=== PATIENT | male | born 1960 | race Caucasian/White ===

== ENCOUNTER 2019-10-28 17:14 | Emergency (ER) | payer OTHER ==
--- OUTSIDE RECORDS SUMMARY | 2019-10-28 17:15 | XMS REPORT ---
:1960 [facility] Address [address] [place] [address] Dr. Falcon [address] [place] [id number] Care Team Providers Name Role Phone Unavailable Unavailable Unavailable Problems This patient has no known problems. Allergies, Adverse Reactions, Alerts This patient has no known allergies or adverse reactions. Medications This patient has no known medications.
--- OUTSIDE RECORDS SUMMARY | 2019-10-28 17:15 | XMS REPORT ---
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
--- OUTSIDE RECORDS SUMMARY | 2019-10-28 17:16 | XMS REPORT ---
:1960 Author Organization eClinicalWorks Care Team Providers Name Role Phone Carroll Regina Provider Role Unavailable Allergies, Adverse Reactions, Alerts Substance Reaction Event Type N.K.D.A. 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 Problem Type 2 diabetes mellitus without E11.9 Active complication, unspecified whether custodial insulin use Medications Medication Code Code Instructions Start End Status Dosage System Date Date Tamsulosin HCl ND 82955720156 0.4 MG Orally Active 1 capsule Once a day Metformin HCl ND 38394823513 500 MG Orally Active 1 tablet Once a day with a meal in am, 1 tabd at lunch, 2 tabs with evening meal Allopurinol ND 06051765381 100 MG Orally Oct 09, Nov 08, Active 1 tablet Once a day 2019 2019 Finasteride ND 25375400279 5 MG Orally Active 1 tablet Once a day Levothyroxine ND 60546637379 75 MCG Orally Active 1 tablet Sodium Once a day in the morning on an empty stomach Lovastatin ND 12015354189 20 MG Orally Active 1 tablet Once a day with the evening meal Losartan ND 74474881180 100 MG Orally Active 1 tablet Potassium Once a day Baby Aspirin NDC 0 81 mg by mouth Active 1 tablet once a day Clopidogrel ND 72194768378 75 MG Orally Active 1 tablet Bisulfate Once a day Results No Known Results Summary Purpose eClinicalWorks Submission
--- OUTSIDE RECORDS SUMMARY | 2019-10-28 17:16 | XMS REPORT ---
:1960 Author Organization eClinicalWorks Care Team Providers Name Role Phone Regina Hodges Provider Role Unavailable Allergies, Adverse Reactions, Alerts Substance Reaction Event Type N.K.D.A. 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 Assessment Essential hypertension I10 Active Assessment Establishing care with new doctor, Z76.89 Active encounter for Assessment Frequency of micturition R35.0 Active Problem Frequency of micturition R35.0 Active Problem Benign prostatic hyperplasia with N40.1 Active lower urinary tract symptoms Problem Essential hypertension I10 Active Assessment Type 2 diabetes mellitus without E11.9 Active complication, 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 Problem 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 Problem Type 2 diabetes mellitus without E11.9 Active complication, 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 Medications Medication Code Code Instructions Start End Status Dosage System Date Date Tamsulosin HCl ND 56562125883 0.4 MG Orally Active 1 capsule Once a day Clopidogrel ND 15463649147 75 MG Orally Active 1 tablet Bisulfate Once a day Levothyroxine ND 99880205715 75 MCG Orally Active 1 tablet Sodium Once a day in the morning on an empty stomach Finasteride ND 50363600795 5 MG Orally Active 1 tablet Once a day Lovastatin ND 21905387673 20 MG Orally Active 1 tablet Once a day with the evening meal Metformin HCl ND 88134840228 500 MG Orally Active 1 tablet Once a day with a meal in am, 1 tabd at lunch, 2 tabs with evening meal Baby Aspirin NDC 0 81 mg by mouth Active 1 tablet once a day Losartan ND 31752574200 100 MG Orally Active 1 tablet Potassium Once a day Allopurinol ND 95751711832 100 MG Orally Oct 09, Nov 08, Active 1 tablet Once a day 2019 2019 Results Name Result Date Reference Range Unit Abnormality Flag HEMOGLOBIN A1C ----A1C 5.8 [id number] Summary Purpose eClinicalWorks Submission
--- OUTSIDE RECORDS SUMMARY | 2019-10-28 17:16 | XMS REPORT ---
[...] mellitus without E11.9 Active complication, unspecified whether assisted insulin use Medications Medication Code System Code Instructions Start End Date Status Dosage Date Accu-Chebeatrice Marin [facility] 91252316720 - In Vitro Jun 29, Active Use, as Plus 2019 directed, twice a day to test the blood sugar Results No Known Results Summary Purpose eClinicalWorks Submission
--- OUTSIDE RECORDS SUMMARY | 2019-10-28 17:16 | XMS REPORT ---
[...] mellitus without E11.9 Active complication, unspecified whether snf insulin use Medications Medication Code Code Instructions Start End Date Status Dosage System Date OneTouch Ultra [facility] 08694794147 - In Vitro Twice April 17, Active USE 1 Test a day for 2019 STRIP Diabetes E11.9 Results No Known Results Summary Purpose eClinicalWorks Submission
[2019-10-28 17:44] LABS: Absolute Lymphocytes (CBC) 1.8 K/uL (0.7-4.9); Basophils % 1.1 % (0-1.3); Hematocrit 40.6 % (39.6-49.0); Lymphocytes % 22.8 % (15.3-44.8); MPV 8.3 fL (7.6-11.3)
[2019-10-28 17:45] LABS: Protime INR 1.08
[2019-10-28 18:06] LABS: ALT/SGPT 18 U/L (12-78); AST/SGOT 15 U/L (15-37); Albumin 3.7 g/dL (3.4-5.0); Alkaline Phosphatase 84 U/L (45-117); BUN Blood Urea Nitrogen 15 mg/dL (7-18); Bicarbonate 25 mmol/L (21-32); Bilirubin Direct 0.1 mg/dL (0-0.2); Bilirubin Total 0.4 mg/dL (0.2-1.0); Glucose Level 112 mg/dL (74-106); Magnesium 2.1 mg/dL (1.8-2.4); NT PRO-BNP 50 pg/mL (<125); Potassium 4.2 mmol/L (3.5-5.1); Sodium Level 138 mmol/L (136-145); Troponin (Emerg Dept Use Only) < 0.02 ng/mL (0.0-0.045)
--- NOTE | 2019-10-28 18:37 | RAD REPORT ---
EXAM DESCRIPTION: CT - Angio Aorta For Dissection - 10/28/2019 6:25 pm CLINICAL HISTORY: Chest pain radiating to the back. lower back pain COMPARISON: <Comparisons> TECHNIQUE: CT angiography of the aorta was performed with MIPs. All CT scans are performed using dose optimization technique as appropriate and may include automated exposure control or mA/KV adjustment according to patient size. FINDINGS: A left aortic arch is present with normal branching pattern of the great vessels.No acute aortic finding is seen such as aneurysm, penetrating ulcer or dissection. The celiac axis, SMA, ZULEIMA and renal arteries are patent. No evidence of pulmonary embolism. The lungs are clear. The liver demonstrates no focal mass or biliary dilatation.The spleen, pancreas, adrenal glands and k idneys are within normal limits for arterial phase imaging.Benign cyst is present left kidney. No bowel obstruction, free fluid or abscess.Sigmoid diverticulosis coli without diverticulitis. Loraine l appendix.No pathologic enlarged lymphadenopathy identified.Moderate prostatomegaly. Small fat conta ining inguinal hernias bilaterally. Vertebroplasty cement is noted in the L1 vertebral body.Postsurgical hardware is present lower lumbar spine stimulator device present. No acute fracture seen. IMPRESSION: No acute aortic finding is demonstrated.
[2019-10-28] MEDS ORDERED: KETOROLAC 30 MG/ML INJ ONE (19:02)
[2019-10-28] MEDS ORDERED: DIAZEPAM 10 MG/2 ML INJ SYRINGE ONE (19:02)
--- NOTE | 2019-10-28 19:47 | ER ---
Nurse's Notes [facility] Name: Moshe Ewing Age: 58 yrs Sex: Male : 1960 Arrival Date: 10/28/2019 Time: 17:17 Bed 7 Private MD: Diagnosis: Muscle spasm of back Presentation: 10/28 17:17 Presenting complaint: EMS states: pt was helping his son push a truck and started tw2 having severe right low back pain, denies any urinary symptoms, denies stomach or groin pain, pt did state he had dull back pain 2 weeks ago, rates his pain 10/10 after 100 mcg Fentanyl IV, and 1 gram Tylenol IV, pt vs stable. Transition of care: patient was not received from another setting of care. Onset of symptoms was October 28, 2019. Risk Assessment: Do you want to hurt yourself or someone else? Patient reports no desire to harm self or others. Initial Sepsis Screen: Does the patient meet any 2 criteria? No. Patient's initial sepsis screen is negative. Does the patient have a suspected source of infection? No. Patient's initial sepsis screen is negative. Care prior to arrival: Medication(s) given: Tylenol, 1000 mg, Fentanyl 100 mcg IV initiated. 20 GA, in the right forearm. 17:17 Method Of Arrival: EMS: [facility] tw2 17:17 Acuity: MYRIAM 3 tw2 Triage Assessment: 17:20 General: Appears in no apparent distress. uncomfortable, Behavior is calm, cooperative, tw2 appropriate for age. Pain: Complains of pain in right low back. Musculoskeletal: Circulation, motion, and sensation intact. Reports pain in right mid back and right low back. Historical: - Allergies: 17:28 No Known Allergies; tw2 - Home Meds: 17:28 levothyroxine 75 mcg tab 1 tab once daily [Active]; metformin 500 mg Oral Tb24 1 tab 1 tw2 tab with breakfast, 1 tab with lunch, 2 tabs with evening meal [Active]; tamsulosin 0.4 mg oral cp24 1 cap once daily [Active]; clopidogrel 75 mg oral tab 1 tab once daily [Active]; finasteride 5 mg oral tab 1 tab once daily [Active]; losartan 100 mg oral tab 1 tab once daily [Active]; lovastatin 40 mg Oral tab 1 tab once daily [Active]; - PMHx: 17:28 DVT; Hypertension; Diabetes - NIDDM; tw2 - PSHx: 17:28 BKA; tw2 - Immunization history:: Adult Immunizations. - Coronavirus screen:: The patient has NOT traveled to [place], [place], or [place] in the past 14 days. - Social history:: Smoking status: . - Ebola Screening: : Patient denies travel to an Ebola-affected area in the 21 days before illness onset. Screenin:28 Abuse screen: Denies threats or abuse. Nutritional screening: No deficits noted. tw2 Tuberculosis screening: No symptoms or risk factors identified. Fall Risk Secondary diagnosis (15 points) impaired mobility, right BKA. Assessment: 17:18 Reassessment: Patient appears in no apparent distress at this time. Reassessment: tw2 provider notified of assessment findings. General: Appears in no apparent distress. uncomfortable, Behavior is cooperative, appropriate for age. Pain: Complains of pain in right mid back and back and right low back. Neuro: Level of Consciousness is awake, alert, obeys commands, Oriented to person, place, time, situation. Cardiovascular: Heart tones S1 S2 Patient's skin is warm and dry. Respiratory: Airway is patent Respiratory effort is even, unlabored, Respiratory pattern is regular, symmetrical, Breath sounds are clear bilaterally. GI: No signs and/or symptoms were reported involving the gastrointestinal system. Abdomen is round non-distended, noted what appeared to be a large raised area when pt strained abdominal muscles when pt was moved from EMS stretcher to examination bed. Bowel sounds present X 4 quads. : No signs and/or symptoms were reported regarding the genitourinary system. EENT: No signs and/or symptoms were reported regarding the EENT system. Derm: No signs and/or symptoms reported regarding the dermatologic system. Musculoskeletal: Amputation of Other: RIGHT BKA Reports "blood clots in my Left leg, i will be having a doppler study done this week at Dr. Ziegler' office, i have a weak pulse in my left foot". 18:55 Reassessment: Patient appears in no apparent distress at this time. Patient and/or tw2 family updated on plan of care and expected duration. Pain level reassessed. Patient is alert, oriented x 3, equal unlabored respirations, skin warm/dry/pink. 19:05 Reassessment: provider at bedside at this time, wants to wait on administration of the tw2 iv medication ordered and for staff to ambulate pt at this time, Maria Fernanda,RN and PriteshRN notified of need for ambulation and iv medications if intolerable. 19:14 Reassessment: Patient appears in no apparent distress at this time. Patient is alert, lp1 oriented x 3, equal unlabored respirations, skin warm/dry/pink. Patient ambulated down hallway, states feeling better, steady gait noted; Provider notified. 20:08 Reassessment: Patient appears in no apparent distress at this time. Patient and/or jb4 family updated on plan of care and expected duration. Pain level reassessed. Patient is alert, oriented x 3, equal unlabored respirations, skin warm/dry/pink. Pt verbalized having no pain. Verbalized understanding of d/c and follow up instructions. ambulated out of ED with a steady gait. Vital Signs: 17:20 BP 150 / 94; Pulse 78; Resp 15; Temp 98.3(O); Pulse Ox 97% on R/A; Weight 81.65 kg (R); tw2 Pain 10/10; 18:55 BP 144 / 91; Pulse 77; Resp 16; Pulse Ox 98% on R/A; tw2 19:30 BP 146 / 80; Pulse 78; Resp 18; Pulse Ox 98% on R/A; lp1 20:08 BP 167 / 93; Pulse 64; Resp 18; Pulse Ox 98% on R/A; jb4 ED Course: 17:17 Patient arrived in ED. tw2 17:18 Bed in low position. Call light in reach. Side rails up X2. 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 Pulse tw2 ox on. NIBP on. Pillow given. 17:20 Triage completed. tw2 17:20 Arm band placed on. tw2 17:22 Suleiman Petty PA is PHCP. [facility] 17:22 Chris Plummer MD is Attending Physician. [facility] 17:29 Pennie Jang RN is Primary Nurse. tw2 17:48 Radiology exam delayed due to lab results not completed at this time. (BUN/Creatinine). mw3 18:25 CT completed. Patient tolerated procedure well. Patient moved back from CT. mw3 18:25 CT Aorta for Dissection In Process Unspecified. EDMS 19:05 Report given to FANNY Irving. tw2 19:15 No provider procedures requiring assistance completed. lp1 20:15 IV discontinued, No redness/swelling at site. Pressure dressing applied. lp1 Administered Medications: 20:28 Not Given (Patient feeling better): Valium 5 mg IVP once lp1 20:28 Not Given (Patietn feeling better, denies need): Ketorolac 30 mg IVP once lp1 Outcome: 19:46 Discharge ordered by . sourav 20:15 Discharged to home ambulatory, with friend. lp1 20:15 Condition: good 20:15 Discharge instructions given to patient, Instructed on discharge instructions, follow up and referral plans. medication usage, Demonstrated understanding of instructions, follow-up care, medications, Prescriptions given X 1. 20:19 Patient left the ED. jb4 Signatures: Dispatcher [employer] EDMS Suleiman Petty PA PA jmm Pena, Laura, RN RN lp1 Pennie Jang RN RN tw2 Myles Nettles RN RN jb4 Kathi Jo 3
--- NOTE | 2019-10-28 19:47 | EDPHYS ---
Physician Documentation [facility] Name: Moshe Ewing Age: 58 yrs Sex: Male : 1960 Arrival Date: 10/28/2019 Time: 17:17 Bed 7 Private MD: ED Physician Chris Plummer HPI: 10/28 17:26 This 58 yrs old Male presents to ER via EMS with complaints of Back Pain. jmm 17:26 The patient presents with pain that is acute. Onset: The symptoms/episode jmm began/occurred acutely, just prior to arrival. The pain does not radiate. Associated signs and symptoms: Pertinent negatives: chest pain. This is a 58 year old male with a history of htn, dm that presents to the ED with complaints of right sided back pain after pushing his truck. Denies radiation of pain. Denies abdominal pain or weakness. Historical: - Allergies: 17:28 No Known Allergies; tw2 - Home Meds: 17:28 levothyroxine 75 mcg tab 1 tab once daily [Active]; metformin 500 mg Oral Tb24 1 tab 1 tw2 tab with breakfast, 1 tab with lunch, 2 tabs with evening meal [Active]; tamsulosin 0.4 mg oral cp24 1 cap once daily [Active]; clopidogrel 75 mg oral tab 1 tab once daily [Active]; finasteride 5 mg oral tab 1 tab once daily [Active]; losartan 100 mg oral tab 1 tab once daily [Active]; lovastatin 40 mg Oral tab 1 tab once daily [Active]; - PMHx: 17:28 DVT; Hypertension; Diabetes - NIDDM; tw2 - PSHx: 17:28 BKA; tw2 - Immunization history:: Adult Immunizations. - Coronavirus screen:: The patient has NOT traveled to [place], [place], or [place] in the past 14 days. - Social history:: Smoking status: . - Ebola Screening: : Patient denies travel to an Ebola-affected area in the 21 days before illness onset. ROS: 17:26 Constitutional: Negative for fever, chills, and weight loss, Cardiovascular: Negative jm for chest pain, palpitations, and edema, Respiratory: Negative for shortness of breath, cough, wheezing, and pleuritic chest pain. 17:26 Back: Positive for pain with movement. 17:26 All other systems are negative. Exam: 17:26 Head/Face: atraumatic. Eyes: EOMI, no conjunctival erythema appreciated ENT: Moist [facility] Mucus Membranes Neck: Trachea midline, Supple Chest/axilla: Normal chest wall appearance and motion. Cardiovascular: Regular rate and rhythm. No edema appreciated Respiratory: Normal respirations, no respiratory distress appreciated Abdomen/GI: Non distended, soft 17:26 Skin: General appearance color normal MS/ Extremity: Moves all extremities, no obvious deformities appreciated, no edema noted to the lower extremities Neuro: Awake and alert, normal gait Psych: Behavior is normal, Mood is normal, Patient is cooperative and pleasant 17:26 Constitutional: The patient appears alert, awake, in obvious pain, uncomfortable. 17:26 Back: diffuse lumbar tenderness, painful rom. Vital Signs: 17:20 BP 150 / 94; Pulse 78; Resp 15; Temp 98.3(O); Pulse Ox 97% on R/A; Weight 81.65 kg (R); tw2 Pain 10/10; 18:55 BP 144 / 91; Pulse 77; Resp 16; Pulse Ox 98% on R/A; tw2 19:30 BP 146 / 80; Pulse 78; Resp 18; Pulse Ox 98% on R/A; lp1 20:08 BP 167 / 93; Pulse 64; Resp 18; Pulse Ox 98% on R/A; jb4 MDM: 17:26 Patient medically screened. lamont 19:44 Data reviewed: vital signs, nurses notes. Counseling: I had a detailed discussion with [facility] the patient and/or guardian regarding: the historical points, exam findings, and any diagnostic results supporting the discharge/admit diagnosis, lab results, radiology results, the need for outpatient follow up, to return to the emergency department if symptoms worsen or persist or if there are any questions or concerns that arise at home. ED course: Pain is relieved in the ED. CT negative. Patient is able to ambulate. Symptoms most likely due to back spasm. . 10/28 17:28 Order name: Basic Metabolic Panel [facility] 10/28 17:28 Order name: CBC with Diff [facility] 10/28 17:28 Order name: LFT's [facility] 10/28 17:28 Order name: Magnesium; Complete Time: 18:11 [facility] 10/28 17:28 Order name: NT PRO-BNP; Complete Time: 18:11 [facility] 10/28 17:28 Order name: PT-INR; Complete Time: 17:58 [facility] 10/28 17:28 Order name: Troponin (emerg Dept Use Only); Complete Time: 18:11 [facility] 10/28 17:28 Order name: EKG; Complete Time: 17:29 [facility] 10/28 17:29 Order name: Basic Metabolic Panel; Complete Time: 18:11 [facility] 10/28 17:29 Order name: CBC with Automated Diff; Complete Time: 17:58 [facility] 10/28 17:29 Order name: Liver (Hepatic) Function; Complete Time: 18:11 [facility] 10/28 17:29 Order name: CT Aorta for Dissection; Complete Time: 18:53 [facility] 10/28 17:28 Order name: Cardiac monitoring; Complete Time: 17:33 [facility] 10/28 17:28 Order name: EKG - Nurse/Tech; Complete Time: 17:53 [facility] 10/28 17:28 Order name: IV Saline Lock; Complete Time: 17:34 [facility] 10/28 17:28 Order name: Labs collected and sent; Complete Time: 17:34 [facility] 10/28 17:28 Order name: O2 Per Protocol; Complete Time: 17:33 [facility] 10/28 17:28 Order name: O2 Sat Monitoring; Complete Time: 17:33 jm Administered Medications: 20:28 Not Given (Patient feeling better): Valium 5 mg IVP once lp1 20:28 Not Given (Patietn feeling better, denies need): Ketorolac 30 mg IVP once lp1 Disposition: 10/28/19 19:46 Discharged to Home. Impression: Muscle spasm of back. - Condition is Stable. - Discharge Instructions: Muscle Cramps and Spasms. - Prescriptions for Zanaflex 4 mg Oral Tablet - take 1 tablet by ORAL route every 8 hours As needed; 20 tablet. - Medication Reconciliation Form, Thank You Letter, Antibiotic Education, Prescription Opioid Use form. - Follow up: Private Physician; When: 2 - 3 days; Reason: Recheck today's complaints, Continuance of care, Re-evaluation by your physician. Addendum: 10/30/2019 07:30 Co-signature as Attending Physician, Chris Plummer MD I agree with the assessment and c javed plan of care. Signatures: Dispatcher [employer] Chris Zeepda MD MD cha Mickail, Joel, PA PA jmm Wise, Tara, RN RN tw2 Myles Nettles, RN RN jb4 Maria Fernanda Watson RN lp1 Corrections: (The following items were deleted from the chart) 10/28 20:19 19:46 10/28/2019 19:46 Discharged to Home. Impression: Muscle spasm of back. Condition jb4 is Stable. Forms are Medication Reconciliation Form, Thank You Letter, Antibiotic Education, Prescription Opioid Use. Follow up: Private Physician; When: 2 - 3 days; Reason: Recheck today's complaints, Continuance of care, Re-evaluation by your physician. sourav
[2019-10-28 20:30] VITALS: TEMP 98.3
[2019-10-28 20:31] VITALS: BP 144/91; O2SAT 98
--- NOTE | 2019-10-30 05:29 | EKG ---
Test Date: 2019-10-28 Test Time: 17:50:03 [employer] Repairer: ANASTASIA MEASUREMENT RESULTS: Intervals: Rate: 66 DC: 150 QRSD: 94 QT: 384 QTc: 402 Grahn: P: 57 DC: 150 QRS: 93 T: 56 INTERPRETIVE STATEMENTS: Normal sinus rhythm Rightward axis Borderline ECG Compared to ECG 03/18/2011 11:24:29 Right-axis deviation now present Electronically Signed On 10-30-19 05:28:45 ENVIRONMENTAL HEALTH SAFETY MANAGER by Nicola Ziegler
== END 2019-10-28 20:19 | disposition home or self-care (01) ==
LOC: ER 17:14
DX: M62.830 Muscle spasm of back (principal); I10 Essential (primary) hypertension; E11.9 Type 2 diabetes mellitus without complications
CPT/HCPCS: 93005; 85025; 80048; 36415; 83735; 85610; 80076; 84484; 83880; 71275; 74175; 99285; Q9967; J3360

== ENCOUNTER 2020-03-01 20:08 | Emergency (ER) | payer OTHER ==
--- OUTSIDE RECORDS SUMMARY | 2020-03-01 20:11 | XMS REPORT ---
:1960 Author Organization eClinicalWorks Care Team Providers Name Role Phone Carroll Regina Provider Role Unavailable Allergies, Adverse Reactions, Alerts Substance Reaction Event Type N.K.D.A. 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 Assessment Essential hypertension I10 Activ e Assessment Benign prostatic hyperplasia with N40.1 Active lower urinary tract symptoms Problem Frequency of micturition R35.0 Act phi Problem Benign prostatic hyperplasia with N40.1 Active lower urinary tract symptoms Problem Acquired hypothyroidism E03.9 Acti ve Problem Essential hypertension I10 Activ e Problem 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 Problem Type 2 diabetes mellitus without E11.9 Active complication, 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 Medications Medication Code Code Instructions Start End Status Dosage System Date Date Levothyroxine ND 85600713447 75 MCG Orally Active 1 tablet Sodium Once a day in the morning on an empty stomach Accu-Chek Tania ND 35948858697 - In Vitro Jun 29, Active U se, as Plus 2019 directed, twice a day to test the blood sugar Baby Aspirin NDC 0 81 mg by mouth Active 1 ta blet once a day Tamsulosin HCl ND 70220356693 0.4 MG Orally Active 1 capsule Once a day OneTouch Ultra ND 98769304195 - In Vitro April 17, Active U SE 1 Test Twice a day for 2019 STRIP Diabetes E11.9 Clopidogrel NDC 88646315537 75 MG Orally Active 1 t ablet Bisulfate Once a day Finasteride NDC 53430897109 5 MG Orally Active 1 ta blet Once a day Lovastatin NDC 45514309641 20 MG Orally Active 1 ta blet Once a day with the evening meal Losartan NDC 16832352925 100 MG Orally Active 1 tab let Potassium Once a day Metformin HCl ND 12409646905 500 MG Orally Active 1 tablet Once a day with a meal in am, 1 tabd at lunch, 2 tabs with evening meal Results Name Result Date Reference Range Unit Abnormali ty Flag HEMOGLOBIN A1C ----A1C 6.2 [id number] Summary Purpose eClinicalWorks Submission
--- OUTSIDE RECORDS SUMMARY | 2020-03-01 20:11 | XMS REPORT | Summary of Care ---
:1960 Author Organization [facility] Address [address] [place] [address] Care Team Providers Name Role Phone Odalys Primary Care Provider Minesh Wilder MD Unavailable Janell Bahena PAC Unavailable Reason for Visit Reason Comments Notification The patient is requesting a new prescription for prosthetic leg. The one he has now is too big. He's having to put 5 socks on his stump to make it fit. Encounter Details Date Type Department Care Team Description 01/01/2020 Telephone [facility] Orthopaedic Edmundo Wilder otification (The Surgery- Erick Edge MD patient is requesting a [address] new prescription for [address] prosthetic [place]. [place] [address] [address] [place], [place] he has now is too big. [phone] He's having to put socks on his stump to [phone] make it fit. ) (Fax) Allergies No Known Allergiesdocumented as of this encounter (statuses as of 01/02/2020) Medications Medication Sig Dispensed Refills Start Date End Date Status pravastatin (PRAVACHOL) Take 40 mg by 0 Active 40 mg tablet mouth at bedtime. metFORMIN (GLUCOPHAGE) Take 500 mg by 0 Active 500 mg tablet mouth 2 (two) times daily with meals. Levothyroxine (TIROSINT) Take 75 mcg by 0 Active 75 mcg capsule mouth daily. losartan (COZAAR) 100 mg Take 100 mg by 0 Active tablet mouth daily. aspirin 81 mg EC tablet Take 81 mg by 0 Active mouth daily. gabapentin (NEURONTIN) Take 300 mg by 0 Active 300 mg capsule mouth 3 (three) times daily. CLOPIDOGREL BISULFATE Take 75 mg by 0 Active (PLAVIX ORAL) mouth daily. diclofenac (VOLTAREN) 75 Take 1 Tab by 60 Tab 1 11/15/2015 Active mg EC tablet mouth 2 (two) times daily with meals. methocarbamol (ROBAXIN) Take 750 mg by 0 Active 750 mg tablet mouth 4 (four) times daily as needed. cyclobenzaprine Take 1 tablet 40 tablet 0 02/04/2016 Active (FLEXERIL) 10 mg tablet by mouth 3 (three) times daily. Additional information Patient taking differently: 10 mg Oral TIDPRN, Reported on 04/02/2016 10:11 AM ONETOUCH ULTRA TEST strip 0 01/27/2016 Active methylPREDNISolone (MEDROL, Take 21 tablets by 1 Each 0 06/2017 Active MICHELE,) 4 mg tablets mouth SEE-INSTRUCTIONS. follow package directions methylPREDNISolone (MEDROL, Take 21 tablets by 1 Each 0 Active MICHELE,) 4 mg tablets mouth SEE-INSTRUCTIONS. follow package directions LOVASTATIN ORAL Take by mouth. 0 Active pentazocine-naloxone 50-0.5 Take 1 tablet by 40 tablet 1 11/17 Active mg tablet mouth every 6 (six) hours as needed for Pain. lovastatin 40 mg tablet Take 40 mg by mouth 0 Active at bedtime. gabapentin (GRALISE) 300 mg Take by mouth. 0 Active tablet traMADOL (ULTRAM) 50 mg Take 1 tablet by 20 tablet 0 7 Active tablet mouth every 6 (six) hours as needed for Pain (scale 7-10). fluconazole (DIFLUCAN) 100 Take 1 tablet by 1 tablet 1 2017 Active mg tablet mouth daily. terbinafine HCl (LAMISIL Apply to area(s) 2 30 g 2 12/14 Active AT) 1 % cream (two) times daily. acetaminophen-codeine TAKE 2 TABLETS BY 0 04/02/2019 Active 300-30 mg tablet MOUTH EVERY 6 HOURS NEEDED FOR PAIN allopurinoL 100 mg tablet 0 10/09/2019 Active finasteride 5 mg tablet Take 5 mg by mouth. 0 2018 Active tamsulosin 0.4 mg 24 hr Take 0.4 mg by 0 08/14/2019 Active capsule mouth. 0 blood sugar diagnostic USE 1 STRIP TO 0 04/17/2019 Active (ClearCycleUCH ULTRA BLUE TEST CHECK GLUCOSE TWICE STRIP) strip DAILY clopidogreL 75 mg tablet Take 75 mg by 0 03/18/2019 Active mouth. cyclobenzaprine 10 mg Take 10 mg by 0 02/04/2016 Active tablet mouth. gabapentin 300 mg capsule Take 300 mg by 0 Active mouth. levothyroxine 75 mcg tablet Comments: | Filled 0 Active Date: Sep 14 2018 10:10AM | Patient Notes: TAKE ONE TABLET BY MOUTH ONCE DAILY losartan 100 mg tablet 1 (one) time each 0 Active day methocarbamol 750 mg tablet Take 750 mg by 0 Active mouth. pravastatin 40 mg tablet Take 40 mg by 0 Active mouth. traMADol 50 mg tablet Take 50 mg by 0 06/16/2017 Active mouth. documented as of this encounter (statuses as of 01/02/2020) Active Problems Problem Noted Date Obesity (BMI 30-39.9) 11/30/2016 Left knee pain 10/06/2016 Shoulder pain, bilateral 02/04/2016 Foot pain, left 12/04/2015 documented as of this encounter (statuses as of 01/02/2020) Social History Tobacco Use Types Packs/Day Years Used Date Never Smoker Smokeless Tobacco: Never Used Alcohol Use Drinks/Week oz/Week Comments No 0 Standard drinks or equivalent 0.0 Sex Assigned at Date Recorded Not on file Job Start Date Occupation Industry Not on file Not on file Not on file Travel History Travel Start Travel End No recent travel history available. documented as of this encounter Last Filed Vital Signs Not on filedocumented in this encounter Plan of Treatment Health Maintenance Due Date Last Done Comments HEPATITIS C (HCV) SCREEN 1960 DTaP,Tdap,and Td Vaccines (1 - 12/09/1970 Tdap) COLONOSCOPY 12/09/2009 Zoster Recombinant Vaccine 12/09/2009 (SHINGRIX) (1 of 2) INFLUENZA VACCINE (#1) 2019 12/09/2015 PNEUMOCOCCAL 0-64 YEARS COMBINED Aged Out No longer eligible based on SERIES patient's age to complete this topic documented as of this encounter Implants Implanted Type Area Nitrate Operator Device Shelf Model / Identifier Expiration Serial / Date Lot Fibertak Suture [place], Double Loaded Supply Left: [employer] 08/26/2021 AR-3602-2 / Implanted: Qty: 1 on 11/30/2016 by Edmundo Ulloa MD at [facility] Item Shoulder A R-3602-2 / [id number] documented as of this encounter Results Not on filedocumented in this encounter Insurance Payer Benefit Plan Subscriber ID Effective Phone Address Typ e / Group Dates HUMANA - HUMANA GOLD [id number] 2019-Pres Medi care Adv MANAGED PLS HMO ent [facility] MEDICARE [facility] MEDICAID OF xxxxxxxxx 2019-Pres [phone] Medi caid [place] ent [id number] [place] [address] documented as of this encounter"
--- OUTSIDE RECORDS SUMMARY | 2020-03-01 20:11 | XMS REPORT ---
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
--- OUTSIDE RECORDS SUMMARY | 2020-03-01 20:11 | XMS REPORT | Continuity of Care Document ---
:1960 Author Organization [facility] Address [address] [place] [address] Care Team Providers Name Role Phone Doctor Unassigned, Name Attending Clinician Unavailable Meño CROWE, Minesh Attending Clinician Problems Condition Condition Condition Status Onset Resolution Last Treating Co mments Source Name Details Category Date Date Treatment Clinician Date Raised Raised Problem Active [facility] prostate Prostate da specific Specific Medica l antigen Antigen Group Frequency Frequency Problem Active [facility] micturitio micturitio Me moria n n l Outpati ent Clinics Benign Benign Problem Active [facility] prostatic prostatic [facility] - hyperplasi hyperplasi Me moria a with a with l lower lower [facility] urinary urinary ent tract tract Clinics symptoms symptoms Essential Essential Problem Active [facility] hypertensi hypertensi [facility] - on on [facility] Outpati ent Clinics Other Other Problem Active [facility] secondary secondary [facility] - acute gout acute gout Me moria of left of left l ankle ankle Outpati ent Clinics Type 2 Type [address] [facility] diabetes diabetes [facility] - mellitus mellitus Mem[facility] a without without l complicati complicati Ou tpati on, on, ent unspecifie unspecifie Cl inics d whether d whether manager terminal manager terminal insulin insulin use use Acquired Acquired Problem Active [facility] hypothyroi hypothyroi [facility] - dism dism [facility] Outpati ent Clinics Allergies, Adverse Reactions, Alerts This patient has no known allergies or adverse reactions. Social History Smoking Status Start Date Stop Date Source Never Smoker [facility] Medications Ordered Filled Start Stop Current Ordering Indication Dosage Frequency Signature Comments Components Source Medication Medication Date Date Medication? Clinician (SIG) Name Name acetaminoph acetaminoph No acetaminop [place] en 300 en 300 hen 300 da mg-codeine mg-codeine mg-codeine Medical 30 mg 30 mg 30 mg Group tablet tablet tablet clopidogrel clopidogrel No clopidogre [facility] 75 mg 75 mg l 75 mg da tablet tablet tablet Medical Group finasteride finasteride No finasterid [facility] 5 mg tablet 5 mg tablet e 5 mg da Take 1 Take 1 tablet Medical tablet tablet Take 1 Group every day every day tablet by oral by oral every day route. route. by oral route. levothyroxi levothyroxi No levothyrox [place] ne 75 mcg ne 75 mcg ine 75 mcg da tablet tablet tablet Medical Group losartan losartan No losartan [facility] 100 mg 100 mg 100 mg da tablet tablet tablet Medical Group lovastatin lovastatin No lovastatin [facility] 20 mg 20 mg 20 mg da tablet tablet tablet Medical Group metformin metformin No metformin [facility] 500 mg 500 mg 500 mg da tablet tablet tablet Medical Group OneTouch OneTouch No OneTouch [facility] Ultra Blue Ultra Blue Ultra Blue da Test Strip Test Strip Test Strip [facility] tamsulosin tamsulosin No tamsulosin [facility] 0.4 mg 0.4 mg 0.4 mg da capsule capsule capsule Medica l Take 1 Take 1 Take 1 Group capsule capsule capsule every day every day every day by oral by oral by oral route. route. route. Metformin Metformin Yes Regina [address] [facility] HCl HCl [place] with a [facility] - meal in Memoria am, 1 tabd l at lunch, Outpati 2 tabs ent with Clinics evening meal Procedures Procedure Date / Time Performed Performing Clinician [facility] e CT, urogram 2018-07-07 00:00:00 [facility] Plan of Care Planned Activity Planned Date Details Comments Source Diagnostic Test 2018-07-07 cytology, urine [facility] Pending 00:00:00 [code = cytology, Group urine] Encounters Start End Encounter Admission Attending Care Care Encounter Source Date/Time Date/Time Type Type Clinicians Facility Department ID 2020-02-21 2020-02-21 Orders Doctor GUZMAN [id number] 00:00:00 00:00:00 Only Unassigned, ANASTASIA [id number] [place] [facility] [id number] 2020-01-09 2020-01-09 [facility] [id number] 14:23:00 14:23:00 [facility] Medicine Outpati ent Clinics 2020-01-08 2020-01-08 [facility] [id number] 08:00:00 08:00:00 [facility] Medicine Outpati ent Clinics 2020-01-01 2020-01-01 Telephone [facility] [id number] 00:00:00 00:00:00 [facility] [id number] Surgical [id number] Specialti [id number] es [address] [place] 2019-11-22 2019-11-22 [facility] [id number] 19:45:00 19:45:00 [facility] Medicine Outpati ent Clinics 2019-11-08 2019-11-08 [facility] [id number] 09:12:00 09:12:00 [facility] Medicine Outpati ent Clinics 2019-11-07 2019-11-07 [facility] [id number] 08:17:00 08:17:00 [facility] Medicine Outpati ent Clinics 2019-10-19 2019-10-19 [facility] [id number] 15:57:00 15:57:00 [facility] Medicine Outpati ent Clinics 2019-10-18 2019-10-18 Office [facility] [id number] 14:50:24 15:33:[address] [facility] [id number] Surgical [id number] Specialti [id number] es [address] [place] 2019-10-18 2019-10-18 [facility] [id number] 09:24:00 09:24:00 [facility] Medicine [facility] 2019-10-18 2019-10-18 Orders Doctor GUZMAN [id number] 00:00:00 00:00:00 Only Unassigned, ANASTASIA [id number] [place] [facility] [id number] 2019-10-17 2019-10-17 [facility] [id number] 09:00:00 09:00:00 [facility] 2019-10-09 2019-10-09 [facility] [id number] 10:27:00 10:27:00 [facility] 2019-10-09 2019-10-09 [facility] [id number] 09:00:00 09:00:00 [facility] ent [facility] 2018-08-08 2018-08-08 Saravanan [facility] [place] - [id number] M atagor 00:00:00 00:00:00 Young, DO: [facility] garcia [address] [address] , Ph. [phone] 2018-08-04 2018-08-04 Jose Garcia [facility] [place] - [id number] M atagor 00:00:00 00:00:00 MD Bobbi: [facility] batres [address] [place] [address], [place] [address] , Ph. 2018-07-07 2018-07-07 Jose Garcia [facility] [place] - [id number] M atagor 00:00:00 00:00:00 MD Bobbi: [facility] [address] [place] [address] 1, [place] [address] , Ph. Results This patient has no known results.
--- OUTSIDE RECORDS SUMMARY | 2020-03-01 20:12 | XMS REPORT | Encounter Summary ---
:1960 Author Care Team Providers Name Role Phone Claudine CIFUENTES Primary Care Provider [phone] Reason for Visit Follow Up Visit Instructions 1. Raised prostate specific anti gen prostate biopsy: about thi s test CT, urogram cytology, urine Discussion Note: None recorded. Plan of Care Reminders Provider Appointments None recorded. Lab Cytology, [facility] 07/07/2018 [facility] Center ( Lab) Referral None recorded. Procedures None recorded. Surgeries None recorded. Imaging CT, Urogram [facility] 07/07/2018 [facility] (Regist ration Office) Medications Name Start Date acetaminophen 300 mg-codeine 30 mg tablet clopidogrel 75 mg tablet finasteride 5 mg tablet Take 1 tablet every day by oral route. levothyroxine 75 mcg tablet losartan 100 mg tablet lovastatin 20 mg tablet metformin 500 mg tablet OneTouch Ultra Blue Test Strip tamsulosin 0.4 mg capsule Take 1 capsule every day by oral route. Medications Administered None recorded. Vitals None recorded. Results Lab Results None recorded. Allergies Code Code System Name Reaction Severity Status Onset NKDA Problems Name Status Onset Date Source Raised Prostate Specific Antigen Active Encounter Procedures Date Name Performed by 07/07/2018 CT, Urogram [facility] (Registration Office) [address] [place] [address] (Work Place) Vaccine List None recorded. Social History Tobacco Smoking Status Never Smoker Past Encounters 08/08/2018 Bilateral Inguinal Hernia Saravanan Carlos, DO: [address] [facility] [address], [place] [address], Ph. [phone] 08/04/2018 Raised Prostate Specific Antigen Jose Martines MD: [address] [facility] [address], [place] [address], Ph. 07/07/2018 Raised Prostate Specific Antigen Jose Martines MD: [address] [facility] [address], [place] [address], Ph. History of Present Illness None recorded. Review of Systems None recorded. Physical Exam None recorded.
--- OUTSIDE RECORDS SUMMARY | 2020-03-01 20:13 | XMS REPORT | Summary of Care ---
:[address] [facility] - Health Address [address] [place] [address] Care Team Providers Name Role Phone Odalys Primary Care Provider Minesh Wilder MD Unavailable Janell Bahena Unavailable Encounter Details Date Type Department Care Team Description 02/21/[address] [facility] Doctor Unassigned, No [address] [facility] [place] [address] [address] [place] [address] Allergies No Known Allergiesdocumented as of this encounter (statuses as of 02/22/2020) Medications Medication Sig Dispensed Refills Start Date [...] USE 1 STRIP TO 0 04/17/2019 Active (Bio2 TechnologiesTOUCH ULTRA BLUE TEST CHECK GLUCOSE TWICE STRIP) [...] as of this encounter (statuses as of 02/22/2020) Active Problems Problem Noted Date Obesity (BMI 30-39.9) 11/30/2016 Left knee pain 10/06/2016 Shoulder pain, bilateral 02/04/2016 Foot pain, left 12/04/2015 documented as of this encounter (statuses as of 02/22/2020) Social History Tobacco Use Types Packs/Day Years [...] 12/09/2009 (SHINGRIX) (1 of 2) INFLUENZA VACCINE (Season Ended) 2020 12/09/2015 PNEUMOCOCCAL 0-64 YEARS COMBINED Aged Out No longer eligible based on SERIES patient's age to complete this topic documented as of this encounter Implants Implanted Type Area Retort Or Condenser Press Operator Device Shelf Model / Identifier Expiration Serial / Date Lot Fibertak Suture [place], Double Loaded Supply Left: [employer] 08/26/2021 AR-3602-2 / Implanted: Qty: 1 on 11/30/2016 by Edmundo Ulloa MD at [facility] Item Shoulder A R-3602-2 / [id number] documented as of this encounter Procedures Procedure Name Priority Date/Time Associated Diagnosis Comme nts DME/SUPPLY JUSTIFICATION Routine 02/21/2020 12:01 AM CDT documented in this encounter Results Not on filedocumented in this encounter Insurance Payer Benefit Plan Subscriber ID Effective Phone Address Typ e / Group Dates HUMANA - HUMANA BETTY [id number] 2019-Pres Medi care Adv MANAGED PLS HMO ent HMO MEDICARE [facility] MEDICAID OF xxxxxxxxx 2019-Pres [phone] Medi caid [place] ent [id number] [place] [address] documented as of this encounter"
[2020-03-01] MEDS ORDERED: MEPERIDINE HCL 50 MG/ML ONE (21:19)
[2020-03-01] MEDS ORDERED: NA CHLORIDE 0.9% 1,000 ML ONE (21:19)
[2020-03-01 21:35] LABS: Absolute Lymphocytes (CBC) 1.8 K/uL (0.7-4.9); Basophils % 0.5 % (0-1.3); Hematocrit 40.6 % (39.6-49.0); Lymphocytes % 20.1 % (15.3-44.8); MPV 8.2 fL (7.6-11.3); RBC Red Blood Cell Count 4.65 M/uL (4.33-5.43)
[2020-03-01 21:43] LABS: Potassium 4.2 mmol/L (3.5-5.1)
--- NOTE | 2020-03-02 00:01 | ER ---
Nurse's Notes [facility] Name: Moshe Ewing Age: 59 yrs Sex: Male : 1960 Arrival Date: 03/01/2020 Time: 20:11 Bed 4 Private MD: Diagnosis: Left hip pain. Degenerative arthritis Presentation: 03/01 20:09 Chief complaint: EMS states: he has left hip pain for a week now, today getting worse mg2 when he picked up the trash. Given Fentanyl 50 mcg IV, Tylenol 1 gm IV in route. Coronavirus screen: Proceed with normal triage. Patient denies a cough. Patient denies shortness of breath or difficulty breathing. Patient denies measured and/or subjective temperature greater than 100.4F prior to today's visit. Patient denies travel on a cruise ship or to a country the [facility] currently lists as an affected area. Patient denies contact with known and/or suspected case of COVID-19. Ebola Screen: No symptoms or risks identified at this time. Initial Sepsis Screen: Does the patient meet any 2 criteria? No. Patient's initial sepsis screen is negative. Does the patient have a suspected source of infection? No. Patient's initial sepsis screen is negative. Risk Assessment: Do you want to hurt yourself or someone else? Patient reports no desire to harm self or others. Onset of symptoms was February 2020. 20:09 Method Of Arrival: EMS: [facility] mg2 20:09 Acuity: MYRIAM 3 mg2 Historical: - Allergies: 20:14 No Known Allergies; mg2 - Home Meds: 22:00 clopidogrel 75 mg Oral tab 1 tab once daily [Active]; finasteride 5 mg Oral tab 1 tab rr5 once daily [Active]; levothyroxine 75 mcg tab 1 tab once daily [Active]; losartan 100 mg Oral tab 1 tab once daily [Active]; lovastatin 40 mg Oral tab 1 tab once daily [Active]; metformin 500 mg Oral Tb24 1 tab 1 tab with breakfast, 1 tab with lunch, 2 tabs with evening meal [Active]; tamsulosin 0.4 mg Oral cp24 1 cap once daily [Active]; - PMHx: 20:14 Diabetes - NIDDM; DVT; Hypertension; mg2 - PSHx: 20:14 back sx; BKA ( RIGHT); mg2 - Immunization history:: Flu vaccine status is unknown. - Social history:: Smoking status: Patient denies any tobacco usage or history of. Patient/guardian denies using alcohol, street drugs, IV drugs. Screenin:15 Abuse screen: Denies threats or abuse. Denies injuries from another. Nutritional rr5 screening: No deficits noted. Tuberculosis screening: No symptoms or risk factors identified. 20:15 Fall Risk IV access (20 points). Ambulatory Aid- Gait- Impaired (20 pts.). Total Ramirez rr5 Fall Scale indicates Low Risk Score (25-44 pts). Fall prevention measures have been instituted. Side Rails Up X 2 Frequent Obs/Assesments occuring As available Patient and Family Educated on Fall Prevention Program and strategies. Assessment: 20:10 General: Appears in no apparent distress. uncomfortable, Behavior is calm, cooperative, rr5 appropriate for age. 20:10 Pain: Complains of pain in left hip Pain radiates to left leg Pain currently is 10 out rr5 of 10 on a pain scale. Quality of pain is described as aching, Pain began gradually, Is intermittent. Neuro: Level of Consciousness is awake, alert, obeys commands, Oriented to person, place, time, situation, Appropriate for age. Cardiovascular: Capillary refill < 3 seconds Patient's skin is warm and dry. Respiratory: Airway is patent Respiratory effort is even, unlabored, Respiratory pattern is regular, symmetrical. GI: No signs and/or symptoms were reported involving the gastrointestinal system. : No signs and/or symptoms were reported regarding the genitourinary system. EENT: No signs and/or symptoms were reported regarding the EENT system. Derm: Skin is intact, is healthy with good turgor, Skin temperature is warm. Musculoskeletal: Amputation of BKA Capillary refill < 3 seconds, Reports pain in left hip Pain is 10 out of 10 on a pain scale. 21:15 Reassessment: Patient appears in no apparent distress at this time. Patient is alert, rr5 oriented x 3, equal unlabored respirations, skin warm/dry/pink. awaiting for results. 22:29 Reassessment: Patient appears in no apparent distress at this time. Patient is alert, rr5 oriented x 3, equal unlabored respirations, skin warm/dry/pink. awaiting for review. Pain: Pain currently is 7 out of 10 on a pain scale. 23:19 Reassessment: Patient appears in no apparent distress at this time. Patient is alert, rr5 oriented x 3, equal unlabored respirations, skin warm/dry/pink. back form CT scan. awaiting for result. 23:19 Reassessment: complaints of left hip pain ED provider aware without order made, will rr5 wait for the CT result first. 03/02 00:10 Reassessment: Patient appears in no apparent distress at this time. Patient is alert, rr5 oriented x 3, equal unlabored respirations, skin warm/dry/pink. review done by ED provider for discharge give morphine before going home. Patient denies pain at this time. Vital Signs: 03/01 20:09 BP 158 / 80; Pulse 74; Resp 18; Temp 98.6; Pulse Ox 100% on R/A; Weight 88.45 kg; mg2 Height 5 ft. 9 in. (175.26 cm); Pain 9/10; 21:00 BP 156 / 85; Pulse 79; Resp 20; Pulse Ox 100% ; Pain 10/10; rr5 22:00 BP 149 / 89; Pulse 75; Resp 16; Pulse Ox 99% ; rr5 23:00 BP 143 / 85; Pulse 70; Resp 19; Pulse Ox 98% ; Pain 7/10; rr5 03/02 00:00 BP 151 / 79; Pulse 76; Resp 18; Pulse Ox 98% ; Pain 7/10; rr5 03/01 20:09 Body Mass Index 28.80 (88.45 kg, 175.26 cm) mg2 ED Course: 03/01 20:11 Patient arrived in ED. mg2 20:13 Triage completed. mg2 20:13 Arm band placed on. mg2 20:15 Patient has correct armband on for positive identification. Placed in gown. Bed in low rr5 position. Call light in reach. Side rails up X2. Pulse ox on. NIBP on. 20:15 Maintain EMS IV. Dressing intact. Good blood return noted. Site clean \T\ dry. Gauge \T\ rr 5 site: G20 right AC. 21:00 Ke Luna MD is Attending Physician. pkl 21:22 Initial lab(s) drawn, by me, sent to lab. rr5 21:35 Hip Left 2 View XRAY In Process Unspecified. EDMS 21:57 Moran, Armin, RN is Primary Nurse. rr5 23:21 Hip Left Wo Con In Process Unspecified. EDMS 03/02 00:00 Edmundo Smith MD is Referral Physician. pkl 00:41 No provider procedures requiring assistance completed. IV discontinued, intact, rr5 bleeding controlled, No redness/swelling at site. Pressure dressing applied. Administered Medications: 03/01 21:14 Drug: NS 0.9% 1000 ml Route: IV; Rate: 100 ml/hr; Site: right antecubital; rr5 23:00 Follow up: Response: No adverse reaction; IV Status: Completed infusion; IV Intake: rr5 1000ml 21:14 Drug: Demerol 50 mg {Note: rass 0.} Route: IVP; Site: right antecubital; rr5 22:10 Follow up: Response: No adverse reaction; RASS: Alert and Calm (0) rr5 03/02 00:35 Drug: morphine 4 mg {Note: rass 0.} Route: IVP; Site: right antecubital; rr5 00:42 Follow up: Response: No adverse reaction; Medication administered at discharge.; RASS: rr5 Alert and Calm (0) Intake: 03/01 23:00 IV: 1000ml; Total: 1000ml. rr5 Outcome: 03/02 00:01 Discharge ordered by . pkl 00:41 Discharged to home via wheelchair. rr5 00:41 Condition: stable 00:41 Discharge instructions given to patient, Instructed on discharge instructions, follow up and referral plans. medication usage, Demonstrated understanding of instructions, follow-up care, medications, Prescriptions given X 1. 00:43 Patient left the ED. rr5 Signatures: Dispatcher [employer] EDKY Ke Luna MD MD pkJonathon Blanc RN RN mg2 Armin Moran, RN RN rr5
--- NOTE | 2020-03-02 00:01 | EDPHYS ---
Physician Documentation [facility] Name: Moshe Ewing Age: 59 yrs Sex: Male : 1960 Arrival Date: 03/01/2020 Time: 20:11 Bed 4 Private MD: ED Physician Ke Luna HPI: 03/01 21:09 This 59 yrs old Male presents to ER via EMS with unknown complaint. pkl 21:09 The patient or guardian reports pain. sustained from unknown reason. The complaints pkl affect the left hip. Onset: The symptoms/episode began/occurred 1 week(s) ago. Historical: - Allergies: 20:14 No Known Allergies; mg2 - Home Meds: 22:00 clopidogrel 75 mg Oral tab 1 tab once daily [Active]; finasteride 5 mg Oral tab 1 tab rr5 once daily [Active]; levothyroxine 75 mcg tab 1 tab once daily [Active]; losartan 100 mg Oral tab 1 tab once daily [Active]; lovastatin 40 mg Oral tab 1 tab once daily [Active]; metformin 500 mg Oral Tb24 1 tab 1 tab with breakfast, 1 tab with lunch, 2 tabs with evening meal [Active]; tamsulosin 0.4 mg Oral cp24 1 cap once daily [Active]; - PMHx: 20:14 Diabetes - NIDDM; DVT; Hypertension; mg2 - PSHx: 20:14 back sx; BKA ( RIGHT); mg2 - Immunization history:: Flu vaccine status is unknown. - Social history:: Smoking status: Patient denies any tobacco usage or history of. Patient/guardian denies using alcohol, street drugs, IV drugs. ROS: 21:09 Eyes: Negative for injury, pain, redness, and discharge, ENT: Negative for injury, pkl pain, and discharge, Neck: Negative for injury, pain, and swelling, Cardiovascular: Negative for chest pain, palpitations, and edema, Respiratory: Negative for shortness of breath, cough, wheezing, and pleuritic chest pain, Abdomen/GI: Negative for abdominal pain, nausea, vomiting, diarrhea, and constipation, Back: Negative for injury and pain, Skin: Negative for injury, rash, and discoloration, Neuro: Negative for headache, weakness, numbness, tingling, and seizure. 21:09 MS/extremity: Positive for pain, of the left hip. Exam: 21:11 Head/Face: Normocephalic, atraumatic. Eyes: Pupils equal round and reactive to light, pkl extra-ocular motions intact. Lids and lashes normal. Conjunctiva and sclera are non-icteric and not injected. Cornea within normal limits. Periorbital areas with no swelling, redness, or edema. ENT: Nares patent. No nasal discharge, no septal abnormalities noted. Tympanic membranes are normal and external auditory canals are clear. Oropharynx with no redness, swelling, or masses, exudates, or evidence of obstruction, uvula midline. Mucous membranes moist. Neck: Trachea midline, no thyromegaly or masses palpated, and no cervical lymphadenopathy. Supple, full range of motion without nuchal rigidity, or vertebral point tenderness. No Meningismus. Chest/axilla: Normal chest wall appearance and motion. Nontender with no deformity. No lesions are appreciated. Cardiovascular: Regular rate and rhythm with a normal S1 and S2. No gallops, murmurs, or rubs. Normal PMI, no JVD. No pulse deficits. Respiratory: Lungs have equal breath sounds bilaterally, clear to auscultation and percussion. No rales, rhonchi or wheezes noted. No increased work of breathing, no retractions or nasal flaring. Abdomen/GI: Soft, non-tender, with normal bowel sounds. No distension or tympany. No guarding or rebound. No evidence of tenderness throughout. Back: No spinal tenderness. No costovertebral tenderness. Full range of motion. Skin: Warm, dry with normal turgor. Normal color with no rashes, no lesions, and no evidence of cellulitis. Neuro: Awake and alert, GCS 15, oriented to person, place, time, and situation. Cranial nerves II-XII grossly intact. Motor strength 5/5 in all extremities. Sensory grossly intact. Cerebellar exam normal. Normal gait. 21:11 Musculoskeletal/extremity: Extremities: grossly normal except: noted in the left hip: decreased ROM, pain. Vital Signs: 20:09 BP 158 / 80; Pulse 74; Resp 18; Temp 98.6; Pulse Ox 100% on R/A; Weight 88.45 kg; mg2 Height 5 ft. 9 in. (175.26 cm); Pain 9/10; 21:00 BP 156 / 85; Pulse 79; Resp 20; Pulse Ox 100% ; Pain 10/10; rr5 22:00 BP 149 / 89; Pulse 75; Resp 16; Pulse Ox 99% ; rr5 23:00 BP 143 / 85; Pulse 70; Resp 19; Pulse Ox 98% ; Pain 7/10; rr5 03/02 00:00 BP 151 / 79; Pulse 76; Resp 18; Pulse Ox 98% ; Pain 7/10; rr5 03/01 20:09 Body Mass Index 28.80 (88.45 kg, 175.26 cm) mg2 MDM: 03/01 21:01 Patient medically screened. pkl 23:54 Data reviewed: vital signs, nurses notes, radiologic studies, CT scan, plain films. ED pkl course: Discussed imaging results with patient. Advised to follow up with his PCP or his Orthopedist ( Dr. Wilder ) next week. Patient understood instruction. 03/01 21:08 Order name: CBC with Diff; Complete Time: 22:23 pkl 03/01 21:08 Order name: Chem 7; Complete Time: 22:23 pkl 03/01 21:08 Order name: Sed Rate; Complete Time: 22:23 pkl 03/01 21:08 Order name: Hip Left 2 View XRAY pkl 03/01 22:45 Order name: Hip Left Wo Con EDMS Administered Medications: 21:14 Drug: NS 0.9% 1000 ml Route: IV; Rate: 100 ml/hr; Site: right antecubital; rr5 23:00 Follow up: Response: No adverse reaction; IV Status: Completed infusion; IV Intake: rr5 1000ml 21:14 Drug: Demerol 50 mg {Note: rass 0.} Route: IVP; Site: right antecubital; rr5 22:10 Follow up: Response: No adverse reaction; RASS: Alert and Calm (0) rr5 03/02 00:35 Drug: morphine 4 mg {Note: rass 0.} Route: IVP; Site: right antecubital; rr5 00:42 Follow up: Response: No adverse reaction; Medication administered at discharge.; RASS: rr5 Alert and Calm (0) Disposition: 03/02/20 00:01 Discharged to Home. Impression: Left hip pain. Degenerative arthritis. - Condition is Stable. - Prescriptions for Ultram 50 mg Oral Tablet - take 1 tablet by ORAL route every 8 hours As needed; 20 tablet. Diclofenac Sodium 75 mg Oral Tablet Sustained Release - take 1 tablet by ORAL route 2 times per day; 30 tablet. - Medication Reconciliation Form, Thank You Letter, Antibiotic Education, Prescription Opioid Use form. - Follow up: Edmundo Wilder MD; When: 2 - 3 days; Reason: Re-evaluation by your physician. Signatures: Dispatcher [employer] [facility] Ke Luna MD MD pkl Jonathon Hernandez RN RN mg2 Armin Moran RN RN rr5 Corrections: (The following items were deleted from the chart) 03/01 22:45 22:30 CT LEFT HIP WO CONTRAST ordered. [facility] 03/02 00:43 00:01 03/02/2020 00:01 Discharged to Home. Impression: Left hip pain. Degenerative rr5 arthritis. Condition is Stable. Forms are Medication Reconciliation Form, Thank You Letter, Antibiotic Education, Prescription Opioid Use. Follow up: Edmundo Wilder; When: 2 - 3 days; Reason: Re-evaluation by your physician. pkl
[2020-03-02] MEDS ORDERED: MORPHINE 4 MG/ML SYR ONE (00:40)
[2020-03-02 00:52] VITALS: TEMP 98.6
[2020-03-02 00:57] VITALS: O2SAT 98
[2020-03-02 00:58] VITALS: BP 151/79
--- NOTE | 2020-03-02 08:32 | RAD REPORT ---
EXAM DESCRIPTION: RAD - Hip Left 2 View - 03/01/2020 9:35 pm CLINICAL HISTORY: PAIN COMPARISON: Hip Left 2 View dated 05/21/2015 FINDINGS: AP and frogleg views of the left hip were obtained. There is no fracture or dislocation. No acute or destructive bony process seen. Hypertrophic degener ative spurring changes present along the superior acetabular rim. These degenerative changes are mild ly progressive from 2014. No AVN identifiable. No soft tissue abnormality. IMPRESSION: No fracture or acute left joint finding. Degenerative changes along the superior acetabular rim are mildly progressive 2014.
--- NOTE | 2020-03-02 20:25 | RAD REPORT ---
EXAM DESCRIPTION: CT - Hip Left Wo Con - 03/02/2020 5:10 am CLINICAL HISTORY: 59 years Male, hip pain COMPARISON: None. TECHNIQUE: Multiple, helical axial tomographic images were obtained of the left hip without intraven ous contrast. Coronal and sagittal reformatted images were obtained. This exam was performed accordin g to our departmental dose-optimization program, which includes automated exposure control, adjustmen t of the mA and/or kV according to patient size and/or use of iterative reconstruction technique. FINDINGS: No evidence for an acute fracture of the left hip. No dislocation. Degenerative hip joint space narrowing is demonstrated with mild osteophyte formation and mild subcortical cystic changes. Small fat-containing left inguinal hernia is present. Prostate appears enlarged. Colonic diverticula are present. Aortoiliac atherosclerosis is present. Degenerative changes of the lumbar spine are present. There are postoperative changes of posterior fu latosha at L4-L5. IMPRESSION: 1. No evidence for an acute fracture of the left hip. 2. Left hip degenerative changes. Electronically signed by: Gabino Metz MD 03/01/2020 11:48 PM CDT Due to temporary technical issues with the PACS/Fluency reporting system, reports are being signed by the in house radiologist without review as a courtesy to ensure prompt reporting. The interpreting r adiologist is fully responsible for the content of the report.
== END 2020-03-02 00:43 | disposition home or self-care (01) ==
LOC: ER 20:08
DX: M19.90 Unspecified osteoarthritis, unspecified site (principal); I10 Essential (primary) hypertension; E11.9 Type 2 diabetes mellitus without complications; Z86.718 Personal history of other venous thrombosis and embolism
CPT/HCPCS: 96361; 85025; 80048; 36415; 85652; 73700; 73502; 96375; 96374; 99284; J2175; J7030

== ENCOUNTER 2020-09-20 20:12 | Emergency (ER) | payer OTHER ==
--- OUTSIDE RECORDS SUMMARY | 2020-09-20 20:14 | XMS REPORT | Continuity of Care Document ---
:1960 Author Organization [facility] t Address [address] [place] [address] Care Team Providers Name Role Phone Meño CROWE, L Attending Clinician Problems Condition Condition Condition Status Onset Resolution Last Treating Co mments Source Name Details Category Date Date Treatment Clinician Date Raised Raised Problem Active [place] prostate Prostate da specific Specific Medica l antigen Antigen Group Allergies, Adverse Reactions, Alerts This patient has no known allergies or adverse reactions. Social History Smoking Status Start Date Stop Date Source Never Smoker [place] [facility] Medications Ordered Filled Start Stop Current Ordering Indication Dosage Frequency Signature Comments Components Source Medication Medication Date Date Medication? Clinician (SIG) Name Name acetaminoph acetaminoph No acetaminop [place] 300 en 300 hen 300 da mg-codeine mg-codeine mg-codeine Medical 30 mg 30 mg 30 mg Group tablet tablet tablet clopidogrel clopidogrel No taqueriaogre [place] 75 mg 75 mg l 75 [...] by oral by oral route. route. route. Tamsulosin Tamsulosin Yes [place] [address] [facility] HCl HCl [place] [facility] Procedures Procedure Date / Time Performed Performing Clinician [facility] e CT, urogram 2018-07-07 00:00:00 Pietro [facility] Plan of Care Planned Activity Planned Date Details Comments Source Diagnostic Test 2018-07-07 cytology, urine [place] [facility] Pending 00:00:00 [code = cytology, Group urine] Encounters Start End Encounter Admission Attending Care Care Encounter Source Date/Time Date/Time Type Type Clinicians Facility Department ID 2020-09-09 2020-09-09 Outpatient [facility] [id number] [facility] 00[facility]00 [facility] ent Clinics 2020-07-16 2020-07-16 Outpatient [facility] [id number] [facility]00 [facility] ent Clinics 2020-07-04 2020-07-04 [facility] [id number] 07:56:22 08:22:11 Visit [facility] [id number] Surgical [id number] Specialti [id number] es [address] [place] 2020-05-06 2020-05-06 Outpatient Estuardo Solano [id number] [facility] 10:52:00 10:52:00 [facility] 2020-04-10 2020-04-10 Outpatient Estuardo Solano [id number] [facility] 13:19:00 13:19:00 t [facility] Medicine Outpati ent Clinics 2020-04-08 2020-04-08 [facility] [id number] [facility] 11:08:00 11:08:00 t [facility] Medicine Outpati ent Clinics 2020-04-05 2020-04-05 [facility] [id number] [facility] 18:34:00 18:34:00 t [facility] Medicine Outpati ent Clinics 2020-01-09 2020-01-09 [facility] [id number] [facility] 14:23:00 14:23:00 t [facility] Medicine Outpati ent Clinics 2020-01-08 2020-01-08 [facility] [id number] [facility] 08:00:00 08:00:00 [facility] Medicine Outpati ent Clinics 2019-11-22 2019-11-22 [facility] [id number] 19:45:00 19:45:00 t [facility] l Medicine Outpati ent Clinics 2019-11-08 2019-11-08 [facility] [id number] 09:12:00 09:12:00 t [facility] Medicine Outpati ent Clinics 2019-11-07 2019-11-07 [facility] [id number] 08:17:00 08:17:00 t [facility] Medicine Outpati ent Clinics 2019-10-19 2019-10-19 [facility] [id number] [facility] 15:57:00 15:57:00 t [facility] Medicine Outpati ent Clinics 2019-10-18 2019-10-18 [facility] [id number] 09:24:00 09:24:00 t [facility] Medicine Outpati ent Clinics 2019-10-17 2019-10-17 [facility] [id number] [facility] 09:00:00 09:00:00 [facility] Medicine Outpati ent Clinics 2019-10-09 2019-10-09 [facility] [id number] 10:27:00 10:27:00 [facility] Medicine Outpati ent Clinics 2019-10-09 2019-10-09 [facility] [id number] [facility] 09:00:00 09:00:00 [facility] Outpati ent [facility] 2018-08-08 2018-08-08 Saravanan [facility] [place] - [id number] M atagor 00:00:00 00:00:00 DO Terrance: [facility] g[facility] [address] - [facility] [address] [id number] , Ph. [phone] 2018-08-04 2018-08-04 Jose Garcia [facility] [place] - [id number] M atagor 00:00:00 00:00:00 MD Bobbi: [facility] bat[facility] [address] [place] [address] 1, [place] [address] , Ph. 2018-07-07 2018-07-07 Jose Garcia [facility] [place] - [id number] M atagor 00:00:00 00:00:00 MD Bobbi: [facility] [address] [place] [address] 1, [place] [address] , Ph. Results This patient has no known results.
--- OUTSIDE RECORDS SUMMARY | 2020-09-20 20:16 | XMS REPORT ---
:1960 Author Organization [facility] Address [address] 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 Problem Benign prostatic N40.1 Active 481703181253874 hyperplasia with lower urinary tract symptoms Problem Frequency of R35.0 Active 206408774 micturition ALLERGIES No Known Allergies ENCOUNTERS from 1960 to 2020-09-09 Encounter Location Date Provider Diagnosis [facility] [address] [facility] [place] Aug, Regina Hodges Type 2 diabetes Family Medicine [address] [place] [address] 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 No Points 0 Interpretation Negative Tobacco Use/Smoking Question Answer Notes Are you a never smoker Tobacco use other than smoking: Question Answer Notes Are you an other tobacco user? No REASON FOR REFERRAL No Information VITAL SIGNS Height 69.5 in Aug, Weight 212 lbs Aug, Temperature 97.3 degrees Fahrenheit Aug, BMI 30.85 kg/m2 Aug, Oximetry 98 % Aug, Respiratory Rate 18 /min Aug, Blood pressure systolic 128 mm Hg Aug, Blood pressure diastolic 80 mm Hg Aug, MEDICATIONS Medication SIG (Take, Route, Notes Start Date End Date Status Frequency, Duration) Clopidogrel Bisulfate 75 1 tablet Orally Once a Active MG day for 30 day(s) Finasteride 5 MG 1 tablet Orally Once a 17 Sep, 2020 Active day for 90 days Baby Aspirin 81 mg 1 tablet by mouth once Active a day Tamsulosin HCl 0.4 MG 1 capsule Orally Once Active a day for 90 Losartan Potassium 100 1 tablet Orally Once a Active MG day for 90 days Metformin HCl 500 MG 1 tablet with a meal Active in am, 1 tabd at lunch, 2 tabs with evening meal Orally three times a day for 90 days Accu-Chek Tania Plus - Use, as directed, Jun, Active twice a day to test the blood sugar In Vitro OneTouch Ultra Test - USE 1 STRIP In Vitro Mar, Active Twice a day for Diabetes E11.9 for 90 days Lovastatin 20 MG 1 tablet with the A ctive evening meal Orally Once a day for 90 days Euthyrox 75 MCG Take 1 tablet by mouth Active once daily for 90 PROCEDURES No Information RESULTS No Results REASON FOR VISIT Labs from [employer] ([phone]) MEDICAL (GENERAL) HISTORY Type Description Date Medical History High cholesterol Medical History Hypertension Medical History Circulation problems Medical History Diabetes Medical History Thyroid problems Surgical History Spinal infusion 2005 Goals Section No Information Health Concerns No Information MEDICAL EQUIPMENT No Information MENTAL STATUS No Information FUNCTIONAL STATUS No Information ASSESSMENTS Encounter Date Diagnosis Assessment Notes Treatment Notes Treatm ent Clinical Notes Aug, Type 2 diabetes meds as directed mellitus without check glucose complication, 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 (ICD-10 - E11.9) Aug, Essential med as directed hypertension (ICD-10 check BP daily - I10) Aug, Tinea (ICD-10 - Use OTC nail med B35.9) daily as directed PLAN OF TREATMENT Treatment Notes Assessment Notes Clinical Notes Type 2 diabetes mellitus without meds as directedcheck gluco se daily complication, unspecified whether senior living insulin use Essential hypertension med as directedcheck BP daily Tinea Use OTC nail med daily as directed Next Appt Details 3 Months Reason: Provider Name:Regina Hodges, 2020-12-09 10 :20:00 AM, [address] [facility], [address], [place], [address], Insurance Providers Payer Name Payer Payer Insured Patient Coverage Coverage End Address Phone Name Relationship to Start Date Dennis e Insured [facility] [phone] [facility] [address] [address] [facility] [address]
[2020-09-20 21:20] LABS: Absolute Lymphocytes (CBC) 1.4 K/uL (0.7-4.9); Basophils % 0.9 % (0-1.3); Hematocrit 39.7 % (39.6-49.0); Lymphocytes % 24.3 % (15.3-44.8); MPV 7.7 fL (7.6-11.3); RBC Red Blood Cell Count 4.75 M/uL (4.33-5.43)
[2020-09-20] MEDS ORDERED: MORPHINE 4 MG/ML SYR ONE (21:21)
[2020-09-20] MEDS ORDERED: ONDANSETRON 4 MG/2 ML VIAL ONE (21:22)
[2020-09-20 21:36] LABS: ALT/SGPT 19 U/L (12-78); AST/SGOT 13 U/L (15-37); Albumin 3.5 g/dL (3.4-5.0); Alkaline Phosphatase 65 U/L (45-117); BUN Blood Urea Nitrogen 17 mg/dL (7-18); Bicarbonate 27 mmol/L (21-32); Bilirubin Direct < 0.1 mg/dL (0-0.2); Bilirubin Total 0.3 mg/dL (0.2-1.0); Glucose Level 109 mg/dL (74-106); Potassium 4.2 mmol/L (3.5-5.1); Protein, Total 7.3 g/dL (6.4-8.2); Sodium Level 138 mmol/L (136-145)
[2020-09-20 22:16] LABS: Troponin (Emerg Dept Use Only) < 0.02 ng/mL (0.0-0.045)
[2020-09-20] MEDS ORDERED: NITROGLYCERIN 0.4 MG/TAB SL ONE (22:23)
[2020-09-20] MEDS ORDERED: HYDROMORPHONE HCL 1 MG/ML INJ ONE (23:11)
--- NOTE | 2020-09-20 23:27 | ER ---
Nurse's Notes [facility] Name: Moshe Ewing Age: 59 yrs Sex: Male : 1960 Arrival Date: 09/20/2020 Time: 20:13 Bed 4 Private MD: Diagnosis: Chest pain, unspecified;Left Hip Pain/Contusion;Low Back Pain Presentation: 09/20 20:26 Chief complaint: EMS states: States pt reported his left leg gave out and he fell onto ea his couch. EMS reports pain is in the left hip, EMS gave 100mcg of fentanyl. Coronavirus screen: At this time, the client does not indicate any symptoms associated with coronavirus-19. Ebola Screen: No symptoms or risks identified at this time. 20:26 Method Of Arrival: EMS: [facility] ea 20:30 Initial Sepsis Screen: Does the patient meet any 2 criteria? No. Patient's initial ea sepsis screen is negative. Does the patient have a suspected source of infection? No. Patient's initial sepsis screen is negative. Risk Assessment: Do you want to hurt yourself or someone else? Patient reports no desire to harm self or others. Onset of symptoms was September 20, 2020. 20:30 Acuity: MYRIAM 3 ea Triage Assessment: 20:30 General: Appears uncomfortable, Behavior is appropriate for age. Pain: Complains of ea pain in left hip. Neuro: Level of Consciousness is awake, alert, obeys commands, Oriented to person, place, time. Respiratory: Airway is patent Respiratory effort is even, unlabored, Respiratory pattern is regular, symmetrical. Derm: Skin is pink, warm \\T\\ dry. Historical: - Allergies: 20:29 No Known Allergies; ea - PMHx: 20:29 Diabetes - NIDDM; DVT; Hypertension; ea - PSHx: 20:29 back sx; ea - Immunization history:: Adult Immunizations up to date. - Social history:: Smoking status: Patient denies any tobacco usage or history of. Screenin:28 Abuse screen: Denies threats or abuse. Nutritional screening: No deficits noted. ea Tuberculosis screening: No symptoms or risk factors identified. Fall Risk None identified. Assessment: 20:30 Reassessment: see triage assessment. ea 21:38 Reassessment: Patient and/or family updated on plan of care and expected duration. Pain ea level reassessed. Patient is alert, oriented x 3, equal unlabored respirations, skin warm/dry/pink. Returned from CT. 21:50 Reassessment: Pt states "I am having an angina attack" provider notified, EKG ea completed, verbal order obtained for nitro sublingual once. 23:57 Reassessment: Patient and/or family updated on plan of care and expected duration. Pain ea level reassessed. Patient is alert, oriented x 3, equal unlabored respirations, skin warm/dry/pink. Pt reports he doesn't want to stay in the hospital. Vital Signs: 20:26 BP 178 / 166; Pulse 90; Resp 18; Temp 98; Pulse Ox 93% ; Weight 88.45 kg; Height 5 ft. ea 9 in. (175.26 cm); Pain 10/10; 21:43 BP 157 / 109; Pulse 97; Resp 18; Pulse Ox 95% on R/A; ea 22:16 BP 137 / 92; Pulse 94; Resp 20; Pulse Ox 95% on R/A; ea 23:35 BP 132 / 95; Pulse 90; Resp 18; Pulse Ox 97% on R/A; ea 20:26 Body Mass Index 28.80 (88.45 kg, 175.26 cm) ea ED Course: 20:13 Patient arrived in ED. am2 20:24 Michael Sánchez MD is Attending Physician. 7 20:26 Jaja Sultana, RN is Primary Nurse. ea 20:28 Patient has correct armband on for positive identification. Bed in low position. Call ea light in reach. Side rails up X2. 20:29 Arm band placed on right wrist. Patient placed in an exam room, on a stretcher, on ea pulse oximetry. 20:30 Triage completed. ea 20:30 Maintain EMS IV. Dressing intact. Good blood return noted. Site clean \\T\\ dry. Gauge \\T\\ ea site: 20 G to right AC. 21:28 Hip Left 2 View XRAY In Process Unspecified. EDMS 21:28 Pelvis XRAY In Process Unspecified. EDMS 21:55 CT Lumbar Spine Wo Con In Process Unspecified. EDMS 22:04 EKG done, by ED staff, reviewed by Michael Sánchez MD. ds4 22:09 Chest Single View XRAY In Process Unspecified. EDMS 23:23 Vinny Magallanes MD is Referral Physician. [facility] 23:24 Edmundo Smith MD is Referral Physician. [facility] 23:57 No provider procedures requiring assistance completed. IV discontinued, intact, ea bleeding controlled, No redness/swelling at site. Pressure dressing applied. Administered Medications: 21:21 Drug: morphine 4 mg Route: IVP; Site: right antecubital; mg2 22:34 Follow up: Response: No adverse reaction mg2 21:21 Drug: Zofran (Ondansetron) 4 mg Route: IVP; Site: right antecubital; mg2 22:34 Follow up: Response: No adverse reaction mg2 22:10 Drug: Nitroglycerin 0.4 mg Route: Sublingual; ea 22:33 Follow up: Response: No adverse reaction mg2 22:58 Drug: Dilaudid 1 mg Route: IVP; Site: right antecubital; mg2 23:35 Follow up: Response: No adverse reaction; RASS: Alert and Calm (0) ea Outcome: 23:57 AMA AMA form signed ea 23:58 Patient left the ED. ea Signatures: Dispatcher [employer] EDMS Naveen Simpson ds4 Yolanda Crowe am2 Jaja Sultana RN RN ea Jonathon Hernandez RN RN [facility] [place] Michael Sánchez MD MD [facility]
--- NOTE | 2020-09-20 23:27 | EDPHYS ---
Physician Documentation [facility] Name: Moshe Ewing Age: 59 yrs Sex: Male : 1960 Arrival Date: 09/20/2020 Time: 20:13 Bed 4 Private MD: ED Physician Michael Sánchez HPI: 09/20 21:35 This 59 yrs old Male presents to ER via EMS with complaints of Hip Pain. [facility] 21:35 The patient or guardian reports an injury, pain. that occurred at home, sustained from 7 a fall, from a standing position, There is no obvious deformity, The patient is not able to ambulate. The patient is able to bear partial body weight. There is no radiation of the patient's discomfort. The complaints affect the left hip and lower back. Onset: The symptoms/episode began/occurred today. Modifying factors: The symptoms are alleviated by nothing, the symptoms are aggravated by any movement. Associated signs and symptoms: Loss of consciousness: the patient experienced no loss of consciousness, Pertinent negatives: abdominal pain, altered mental status, anorexia, chest pain, diarrhea, dizziness, dysuria, fever, headache, incontinence, nausea, shortness of breath, vomiting, weakness. Severity of symptoms: At their worst the symptoms were moderate, earlier today, in the emergency department the symptoms are unchanged. Historical: - Allergies: 20:29 No Known Allergies; ea - PMHx: 20:29 Diabetes - NIDDM; DVT; Hypertension; ea - PSHx: 20:29 back sx; ea - Immunization history:: Adult Immunizations up to date. - Social history:: Smoking status: Patient denies any tobacco usage or history of. ROS: 21:35 Constitutional: Negative for fever, chills, and weight loss, Eyes: Negative for injury, mh7 pain, redness, and discharge, ENT: Negative for injury, pain, and discharge, Neck: Negative for injury, pain, and swelling, Cardiovascular: Negative for chest pain, palpitations, and edema, Respiratory: Negative for shortness of breath, cough, wheezing, and pleuritic chest pain, Abdomen/GI: Negative for abdominal pain, nausea, vomiting, diarrhea, and constipation, : Negative for injury, bleeding, discharge, and swelling, Skin: Negative for injury, rash, and discoloration, Neuro: Negative for headache, weakness, numbness, tingling, and seizure, Psych: Negative for depression, anxiety, suicide ideation, homicidal ideation, and hallucinations, Allergy/Immunology: Negative for hives, rash, and allergies, Endocrine: Negative for neck swelling, polydipsia, polyuria, polyphagia, and marked weight changes, Hematologic/Lymphatic: Negative for swollen nodes, abnormal bleeding, and unusual bruising. Exam: 21:35 Head/Face: Normocephalic, atraumatic. Eyes: Pupils equal round and reactive to light, mh7 extra-ocular motions intact. Lids and lashes normal. Conjunctiva and sclera are non-icteric and not injected. Cornea within normal limits. Periorbital areas with no swelling, redness, or edema. Neck: Trachea midline, no thyromegaly or masses palpated, and no cervical lymphadenopathy. Supple, full range of motion without nuchal rigidity, or vertebral point tenderness. No Meningismus. Chest/axilla: Normal chest wall appearance and motion. Nontender with no deformity. No lesions are appreciated. Cardiovascular: Regular rate and rhythm with a normal S1 and S2. No gallops, murmurs, or rubs. Normal PMI, no JVD. No pulse deficits. Respiratory: Lungs have equal breath sounds bilaterally, clear to auscultation and percussion. No rales, rhonchi or wheezes noted. No increased work of breathing, no retractions or nasal flaring. Abdomen/GI: Soft, non-tender, with normal bowel sounds. No distension or tympany. No guarding or rebound. No evidence of tenderness throughout. 21:35 Skin: Warm, dry with normal turgor. Normal color with no rashes, no lesions, and no evidence of cellulitis. Neuro: Awake and alert, GCS 15, oriented to person, place, time, and situation. Cranial nerves II-XII grossly intact. Motor strength 5/5 in all extremities. Sensory grossly intact. Cerebellar exam normal. Normal gait. Psych: Awake, alert, with orientation to person, place and time. Behavior, mood, and affect are within normal limits. 21:35 Constitutional: The patient appears in no acute distress, alert, awake, uncomfortable. 21:35 Back: pain, that is moderate, of the lumbar area, ROM is painful, with all movement, normal spinal alignment noted, CVA tenderness, is absent, vertebral tenderness, is appreciated at lumbar area, muscle spasm, is not present, Straight leg raises: left lower extremity illicits pain, at 30 degrees. 21:35 Musculoskeletal/extremity: Extremities: noted in the left hip: pain, tenderness, right LE BKA, ROM: limited active range of motion due to pain, in the left hip, limited passive range of motion due to pain, in the left hip, Pulses: are normal with no appreciated deficits, Perfusion: the patient is normally perfused throughout, Perfusion: the extremity is normally perfused throughout, Calf tenderness, is absent, Edema, is not appreciated, Sensation intact. Compartment Syndrome exam of affected extremity: is normal. no numbness, no tingling, no sensation deficit, no palor, no weak pulses, Joints: the left hip displays painful range of motion, tenderness, Weight bearing: is unable to bear weight, Tendon exam: specific tendon testing normal through active and passive range of motion Calves: Vital Signs: 20:26 BP 178 / 166; Pulse 90; Resp 18; Temp 98; Pulse Ox 93% ; Weight 88.45 kg; Height 5 ft. ea 9 in. (175.26 cm); Pain 10/10; 21:43 BP 157 / 109; Pulse 97; Resp 18; Pulse Ox 95% on R/A; ea 22:16 BP 137 / 92; Pulse 94; Resp 20; Pulse Ox 95% on R/A; ea 23:35 BP 132 / 95; Pulse 90; Resp 18; Pulse Ox 97% on R/A; ea 20:26 Body Mass Index 28.80 (88.45 kg, 175.26 cm) ea MDM: 23:22 Differential diagnosis: hip fracture, intertrochanteric fracture, femoral neck mh7 fracture, femoral shaft fracture, bursitis, arthritis, strain. Data reviewed: vital signs, nurses notes, EMS record, old medical records, lab test result(s), cardiac enzymes, CBC, electrolytes, urinalysis, EKG, radiologic studies, CT scan, plain films. Data interpreted: Pulse oximetry: on room air is 95 %. Interpretation: normal. Counseling: I had a detailed discussion with the patient and/or guardian regarding: the historical points, exam findings, and any diagnostic results supporting the discharge/admit diagnosis, the presence of at least one elevated blood pressure reading (>120/80) during this emergency department visit, lab results, radiology results. Counseling: I had a detailed discussion with the patient and/or guardian regarding: the need for further work-up and treatment in the hospital. Response to treatment: the patient's symptoms have markedly improved after treatment. Refusal of service: The patient/guardian displays adequate decision making capability and despite a detailed discussion of alternatives, benefits, risks, and consequences refuses: Admission to the hospital for further work-up and treatment. 23:26 Patient medically screened. [facility] 09/20 21:01 Order name: CBC with Diff [facility] 09/20 21:01 Order name: Basic Metabolic Panel [facility] 09/20 21:01 Order name: LFT's [facility] 09/20 21:02 Order name: CBC with Automated Diff; Complete Time: 21:54 EDMS 09/20 21:02 Order name: Basic Metabolic Panel; Complete Time: 22:38 EDMS 09/20 21:02 Order name: Liver (Hepatic) Function; Complete Time: 22:38 EDMS 09/20 21:01 Order name: CT Lumbar Spine Wo Con [facility] 09/20 21:01 Order name: Hip Left 2 View XRAY [facility] 09/20 21:01 Order name: Pelvis XRAY [facility] 09/20 21:53 Order name: Chest Single View XRAY [facility] 09/20 21:57 Order name: Troponin (Emerg Dept Use Only); Complete Time: 22:38 EDMS 09/20 21:53 Order name: EKG - Nurse/Tech; Complete Time: 21:56 mh7 Administered Medications: 21:21 Drug: morphine 4 mg Route: IVP; Site: right antecubital; mg2 22:34 Follow up: Response: No adverse reaction mg2 21:21 Drug: Zofran (Ondansetron) 4 mg Route: IVP; Site: right antecubital; mg2 22:34 Follow up: Response: No adverse reaction mg2 22:10 Drug: Nitroglycerin 0.4 mg Route: Sublingual; ea 22:33 Follow up: Response: No adverse reaction mg2 22:58 Drug: Dilaudid 1 mg Route: IVP; Site: right antecubital; mg2 23:35 Follow up: Response: No adverse reaction; RASS: Alert and Calm (0) ea Disposition: 09/20/20 23:26 Patient has left against medical advice. Impression: Chest pain, unspecified, Left Hip Pain/Contusion, Low Back Pain. - Patients states they are going to Home. - Condition is Stable. - Discharge Instructions: Contusion, Ijuf-ex-Abyj, Nonspecific Chest Pain, Pmzy-hj-Jhsc, Back Pain, Adult, Gzrk-to-Idmf, Hip Pain. Follow up: Private Physician; When: 1 - 2 days; Reason: Worsening of condition, Recheck today's complaints, Continuance of care, Re-evaluation by your physician. Follow up: Vinny Magallanes MD; When: 1 - 2 days; Reason: Worsening of condition, Recheck today's complaints. Follow up: Edmundo Smith MD; When: 1 - 2 days; Reason: Worsening of condition, Recheck today's complaints. - Problem is an acute exacerbation. - Symptoms have improved. Signatures: Dispatcher [employer] EDMS LaurietristenSoy, HEEL PACKER-C HEEL PACKER-Cla1 Jaja Sultana RN RN ea Gardose, Michele, RN RN mg2 Holmes, Maurice, MD MD mh7 Corrections: (The following items were deleted from the chart) 21:57 21:54 TROPONIN (EMERG DEPT USE ONLY)+C.LAB.BRZ ordered. [facility] 23:58 23:26 09/20/2020 23:26 Patients has left against medical advice. Impression: Chest ea pain, unspecified; Left Hip Pain/Contusion; Low Back Pain. Patient states they are going to Home. Condition is Stable. Follow up: Private Physician; When: 1 - 2 days; Reason: Worsening of condition, Recheck today's complaints, Continuance of care, Re-evaluation by your physician. Follow up: Vinny Magallanes; When: 1 - 2 days; Reason: Worsening of condition, Recheck today's complaints. Follow up: Edmundo Smith; When: 1 - 2 days; Reason: Worsening of condition, Recheck today's complaints. Problem is an acute exacerbation. Symptoms have improved. 7
[2020-09-21 00:31] VITALS: TEMP 98
[2020-09-21 00:35] VITALS: BP 132/95; O2SAT 97
--- NOTE | 2020-09-21 13:12 | RAD REPORT ---
CLINICAL HISTORY: 59 years Male LOWER BACK PAIN COMPARISON: None TECHNIQUE: Multiplanar imaging through the lumbar spine without contrast. This exam was performed according to our departmental dose-optimization program, which includes automated exposure control, a djustment of the mA and/or kV according to patient size and/or use of iterative reconstruction techni que. DLP: 1113 mGy*cm FINDINGS: No fracture. No subluxation. Advanced diffuse osteopenia. L4-L5 postsurgical changes. Prior L1 kyphoplasty. Disc spaces are preserved. Paraspinal soft tissues are unremarkable. Neurostimulator with lead entering the posterior epidural space at the thoracolumbar junction. Infrar enal IVC filter. Vascular calcifications. IMPRESSION: No acute lumbar spine fracture. Advanced multilevel degenerative changes and diffuse osteopenia. Consider MR lumbar spine if clinical ly indicated. Multifocal postsurgical changes. Electronically signed by: Scooter Christopher DO 09/20/2020 10:09 PM RAGMAN Due to temporary technical issues with the PACS/Fluency reporting system, reports are being signed by the in house radiologists without review as a courtesy to insure prompt reporting. The interpreting radiologist is fully responsible for the content of the report.
--- NOTE | 2020-09-21 13:14 | RAD REPORT ---
EXAM DESCRIPTION: Pelvis (accession [id number]), Hip Left 2 View (accession [id number]) CLINICAL HISTORY: 59 years Male, TRAUMA COMPARISON: None. FINDINGS/IMPRESSION: No fracture or dislocation. Bone mineralization is normal. Bilateral hip degenerative changes. Soft tissues are unremarkable. Electronically signed by: Scooter Christopher DO 09/20/2020 10:40 PM FAN BLADE ALIGNER Due to temporary technical issues with the PACS/Fluency reporting system, reports are being signed by the in house radiologists without review as a courtesy to insure prompt reporting. The interpreting radiologist is fully responsible for the content of the report.
--- NOTE | 2020-09-21 13:15 | RAD REPORT ---
EXAM DESCRIPTION: Pelvis (accession [id number]), Hip Left 2 View (accession [id number]) CLINICAL HISTORY: 59 years Male, TRAUMA COMPARISON: None. FINDINGS/IMPRESSION: No fracture or dislocation. Bone mineralization is normal. Bilateral hip degenerative changes. Soft tissues are unremarkable. Electronically signed by: Scooter Christopher DO 09/20/2020 10:40 PM ELEMENTARY ASSISTANT TEACHER Due to temporary technical issues with the PACS/Fluency reporting system, reports are being signed by the in house radiologists without review as a courtesy to insure prompt reporting. The interpreting radiologist is fully responsible for the content of the report.
--- NOTE | 2020-09-21 13:17 | RAD REPORT ---
CLINICAL HISTORY: 1 years Male, CHEST PAIN COMPARISON: None FINDINGS: No focal lung consolidation. No pleural effusion. No pneumothorax. Cardiomediastinal silhouette is within normal limits. Mild vascular congestion. No acute osseous abnormality. IMPRESSION: No acute cardiopulmonary disease. Electronically signed by: Scooter Christopher DO 09/20/2020 10:40 PM MARKETING CONSULTANT Due to temporary technical issues with the PACS/Fluency reporting system, reports are being signed by the in house radiologists without review as a courtesy to insure prompt reporting. The interpreting radiologist is fully responsible for the content of the report.
== END 2020-09-20 23:58 | disposition left against medical advice (07) ==
LOC: ER 20:12
DX: R07.9 Chest pain, unspecified (principal); S70.02XA Contusion of left hip, initial encounter; M54.5 Low back pain; W18.39XA Other fall on same level, initial encounter; Y93.9 Activity, unspecified; Y92.009 Unspecified place in unspecified non-institutional (private) residence as the place of occurrence of the external cause; I10 Essential (primary) hypertension
CPT/HCPCS: 93005; 85025; 80048; 36415; 80076; 84484; 72131; 71045; 72170; 73502; 96375; 96374; 99284; J1170; J2405

== ENCOUNTER 2020-12-20 23:10 | Observation (INO) | payer OTHER ==
--- OUTSIDE RECORDS SUMMARY | 2020-12-20 23:12 | XMS REPORT | Continuity of Care Document ---
:1960 Author Organization [facility] t Address [address] [place] [address] Care Team Providers Name Role Phone Meño CROWE L Attending Clinician Problems Condition Condition Condition Status Onset Resolution Last Treating Co mments Source Name Details Category Date Date Treatment Clinician Date Raised Raised Problem Active [place] prostate Prostate da specific Specific Medica l antigen Antigen Group Allergies, Adverse Reactions, Alerts This patient has no known allergies or adverse reactions. Social History Smoking Status Start Date Stop Date Source Never Smoker [facility] Medications Ordered Filled Start [...] oral route. route. route. Tamsulosin Tamsulosin Yes Reigna [address] [facility] HCl HCl [place] [facility] Procedures Procedure Date / Time Performed Performing Clinician [facility] e CT, urogram 2018-07-07 00:00:00 Pietro Dowd dictanja Group Plan of Care Planned Activity Planned Date Details Comments Source Diagnostic Test 2018-07-07 cytology, urine [facility] Pending 00:00:00 [code = cytology, Group urine] Encounters Start End Encounter Admission Attending Care Care Encounter Source Date/Time Date/Time Type Type Clinicians Facility Department ID 2020-12-17 2020-12-17 Outpatient [facility] [id number] [facility] 2020-12-17 2020-12-17 [facility] [id number] [facility] 2020 2020 [facility] [id number] [facility] 2020-12-09 2020-12-09 [facility] [id number] [facility] 2020-11-07 2020-11-07 [facility] [id number] [facility] 2020-11-04 2020-11-04 [facility] [id number] [facility] 2020-11-04 2020-11-04 Out[facility] [id number] [facility] 2020-10-15 2020-10-15 Outpatient [id number] [facility] 07:11:00 07:11:00 2020-09-09 2020-09-09 Outpatient [facility] [id number] [facility] 2020-07-16 2020-07-16 [facility] [id number] [facility] 2020-07-04 2020-07-04 Office [facility] [id number] 07:56:22 08:22:11 Visit [facility] [id number] Surgical [id number] Special [id number] 198 [place] 2020-05-06 2020-05-06 [facility] [id number] [facility] 10:52:00 10:52:00 [facility] Medicine Outpat[facility] Clinics 2020-04-10 2020-04-10 [facility] [id number] [facility] 13:19:00 13:19:00 [facility] l Medicine Outpat[facility] Clinics 2020-04-08 2020-04-08 [facility] [id number] 11:08:00 11:08:00 [facility] Medicine Outpat[facility] Clinics 2020-04-05 2020-04-05 [facility] [id number] 18:34:00 18:34:00 [facility] Medicine Outpat[facility] Clinics 2020-01-09 2020-01-09 [facility] [id number] 14:23:00 14:23:00 [facility] Medicine l Medicine Outpati ent Clinics 2020-01-08 2020-01-08 [facility] [id number] [facility] 08:00:00 08:00:00 t [facility] Medicine l Medicine Outpati ent Clinics 2019-11-22 2019-11-22 [facility] [id number] 19:45:00 19:45:00 t [facility] Medicine l Medicine Outpati ent Clinics 2019-11-08 2019-11-08 [facility] [id number] [facility] 09:12:00 09:12:00 t [facility] Medicine l Medicine Outpati ent Clinics 2019-11-07 2019-11-07 [facility] [id number] 08:17:00 08:17:00 t [facility] Medicine Medicine Outpati ent Clinics 2019-10-19 2019-10-19 [facility] [id number] 15:57:00 15:57:00 t [facility] Medicine l Medicine Outpati ent Clinics 2019-10-18 2019-10-18 [facility] [id number] 09:24:00 09:24:00 t [facility] Medicine l Medicine Outpati ent Clinics 2019-10-17 2019-10-17 [facility] [id number] 09:00:00 09:00:00 t [facility] Medicine l Medicine Outpati ent Clinics 2019-10-09 2019-10-09 [facility] [id number] [facility] 10:27:00 10:27:00 t [facility] Medicine l Medicine Outpati ent Clinics 2019-10-09 2019-10-09 [facility] [id number] 09:00:00 09:00:00 t [facility] Medicine l Medicine Outpati ent Clinics 2018-08-08 2018-08-08 Saravanan [employer] [place] - [id number] M at[facility]or 00:00:00 00:00:00 DO Terrance: [facility] [address] [place] - [address], [facility] [address] , Ph. [phone] 2018-08-04 2018-08-04 Jose Garcia [employer] [place] - [id number] M [facility] 00:00:00 00:00:00 MD Bobbi: [address] - [facility], [place] [address] , Ph. 2018-07-07 2018-07-07 Jose Garcia [employer] [place] - [id number] M [facility] 00:00:00 00:00:00 MD Bobbi: [facility] [address] [place] [address] - [facility], [place] [address] , Ph. Results This patient has no known results.
[2020-12-20 23:41] LABS: Basophils % 0.5 % (0-1.3); Hematocrit 41.6 % (39.6-49.0); Lymphocytes % 27.4 % (15.3-44.8); MPV 8.8 fL (7.6-11.3); RBC Red Blood Cell Count 4.82 M/uL (4.33-5.43)
[2020-12-20 23:42] LABS: Protime INR 1.01
[2020-12-20 23:56] LABS: ALT/SGPT 29 U/L (12-78); AST/SGOT 15 U/L (15-37); Albumin 3.6 g/dL (3.4-5.0); Alkaline Phosphatase 67 U/L (45-117); BUN Blood Urea Nitrogen 16 mg/dL (7-18); Bicarbonate 23 mmol/L (21-32); Bilirubin Direct < 0.1 mg/dL (0-0.2); Bilirubin Total 0.3 mg/dL (0.2-1.0); Glucose Level 118 mg/dL (74-106); Magnesium 2.1 mg/dL (1.8-2.4); NT PRO-BNP 114 pg/mL (<125); Potassium 3.8 mmol/L (3.5-5.1); Protein, Total 7.9 g/dL (6.4-8.2); Sodium Level 141 mmol/L (136-145); Troponin (Emerg Dept Use Only) < 0.02 ng/mL (0.0-0.045)
--- NOTE | 2020-12-21 00:05 | ER ---
Nurse's Notes [facility] Name: Moshe Ewing Age: 60 yrs Sex: Male : 1960 Arrival Date: 12/20/2020 Time: 23:11 Bed 8 Private MD: Diagnosis: Chest pain, unspecified Presentation: 12/20 23:08 Chief complaint: EMS states: he is complaining of high blood pressure and difficulty of mg2 breathing today. on the way here he started to have chest pain, aspirin 324 mg was given po. BP- 194/106, BGL -141 mg/dl. Coronavirus screen: Client denies travel out of the [place] in the last 14 days. At this time, the client does not indicate any symptoms associated with coronavirus-19. Ebola Screen: No symptoms or risks identified at this time. Initial Sepsis Screen: Does the patient meet any 2 criteria? No. Patient's initial sepsis screen is negative. Does the patient have a suspected source of infection? No. Patient's initial sepsis screen is negative. Risk Assessment: Do you want to hurt yourself or someone else? Patient reports no desire to harm self or others. Onset of symptoms was December 21, 2019. 23:08 Method Of Arrival: EMS: [facility] mg2 23:08 Acuity: MYRIAM 2 mg2 Historical: - Allergies: 23:27 No Known Allergies; mg2 - Home Meds: 23:27 clopidogrel 75 mg Oral tab 1 tab once daily [Active]; finasteride 5 mg Oral tab 1 tab mg2 once daily [Active]; levothyroxine 75 mcg tab 1 tab once daily [Active]; losartan 100 mg Oral tab 1 tab once daily [Active]; lovastatin 40 mg Oral tab 1 tab once daily [Active]; metformin 500 mg Oral cpER 1 tab 1 tab with breakfast, 1 tab with lunch, 2 tabs with evening meal [Active]; tamsulosin 0.4 mg Oral cp24 1 cap once daily [Active]; - PMHx: 23:27 Diabetes - NIDDM; DVT; Hypertension; mg2 - Immunization history:: Flu vaccine status is unknown. - Social history:: Smoking status: Patient denies any tobacco usage or history of. Screenin:31 Abuse screen: Denies threats or abuse. Denies injuries from another. Nutritional mg2 screening: No deficits noted. Tuberculosis screening: No symptoms or risk factors identified. Fall Risk IV access (20 points). Assessment: 23:30 General: Appears uncomfortable, Behavior is calm, cooperative. Pain: Complains of pain mg2 in chest Pain radiates to neck Quality of pain is described as aching, sharp, Pain began 30 min ago. Neuro: Level of Consciousness is awake, alert, obeys commands, Oriented to person, place, time, situation. Cardiovascular: Capillary refill < 3 seconds Patient's skin is warm and dry. Respiratory: Airway is patent Respiratory effort is even, unlabored, Respiratory pattern is regular, symmetrical. GI: No signs and/or symptoms were reported involving the gastrointestinal system. : No signs and/or symptoms were reported regarding the genitourinary system. EENT: No signs and/or symptoms were reported regarding the EENT system. Derm: Skin is intact, is healthy with good turgor, Skin is pink, warm \T\ dry. normal. Musculoskeletal: Circulation, motion, and sensation intact. Capillary refill < 3 seconds. Vital Signs: 23:08 BP 186 / 104; Pulse 83; Resp 18; Temp 98.9; Pulse Ox 93% on R/A; Weight 90.72 kg; mg2 Height 5 ft. 9 in. (175.26 cm); Pain 8/10; 23:29 BP 175 / 100; Pulse 83; Resp 18; Pulse Ox 97% on 3 lpm NC; mg2 23:34 BP 152 / 99; Pulse 79; Resp 18; Pulse Ox 95% on 3 lpm NC; Pain 7/10; mg2 23:08 Body Mass Index 29.53 (90.72 kg, 175.26 cm) mg2 ED Course: 23:10 Maintain EMS IV. Dressing intact. Good blood return noted. Site clean \T\ dry. Gauge \T\ mg 2 site: 20 \T\ RH. Oxygen administration via nasal cannula \T\ 3L/min. 23:11 Patient arrived in ED. sg 23:11 Chris Clark PA is PHCP. cp 23:11 Dada Moffett MD is Attending Physician. cp 23:14 Jonathon Hernandez, FANNY is Primary Nurse. mg2 23:26 Triage completed. mg2 23:28 No provider procedures requiring assistance completed. mg2 23:31 Patient has correct armband on for positive identification. Allergy band placed. mg2 teletypesetter monitor on. Pulse ox on. NIBP on. Door closed. Warm blanket given. 23:31 Arm band placed on. mg2 23:55 XRAY Chest (1 view) In Process Unspecified. EDMS 12/21 00:04 Gallito Hunter MD is Hospitalizing Provider. cp 01:53 Patient admitted, IV remains in place. mg2 Administered Medications: 12/20 11:10 Drug: Nitrostat 0.4 mg Route: Sublingual; mg2 23:14 Drug: Zofran (Ondansetron) 4 mg Route: IVP; Site: right hand; mg2 12/21 01:40 Follow up: Response: No adverse reaction mg2 12/20 23:18 Drug: Nitrostat 0.4 mg Route: Sublingual; mg2 23:32 Drug: Nitrostat 0.4 mg Route: Sublingual; mg2 12/21 01:40 Follow up: Response: No adverse reaction; Marked relief of symptoms mg2 01:39 Drug: morphine 4 mg Route: IVP; Site: right hand; mg2 Outcome: 00:04 Decision to Hospitalize by Provider. cp 01:53 Admitted to Med/surg accompanied by tech, via wheelchair, room 214, with chart, Report mg2 called to FANNY Zambrano 01:53 Condition: stable 01:53 Instructed on the need for admit, Demonstrated understanding of instructions. 01:54 Patient left the ED. mg2 Signatures: Dispatcher [employer] EDOrlando Degroot, RN RN Chris Hartman, VANE PA Jonathon Randall RN RN mg2
--- NOTE | 2020-12-21 00:05 | EDPHYS ---
Physician Documentation [facility] Name: Moshe Ewing Age: 60 yrs Sex: Male : 1960 Arrival Date: 12/20/2020 Time: 23:11 Bed 8 Private MD: ED Physician Dada Moffett HPI: 12/20 23:13 This 60 yrs old Male presents to ER via Unassigned with complaints of Chest cp Pain > 30 y/o, High Blood Pressure. 23:13 The patient or guardian reports chest pain that is located primarily in the anterior cp chest wall, left. Onset: today, while en route with EMS. The pain does not radiate. Associated signs and symptoms: Pertinent positives: nausea. The chest pain is described as sharp. 23:13 Duration: The patient or guardian reports a single episode, that is still ongoing, and cp worsening. 23:13 Patient reportedly called EMS tonight for elevated blood pressure. Chest pain started cp while en route to hospital. EMS administered oral aspirin. Historical: - Allergies: 23:27 No Known Allergies; mg2 - Home Meds: 23:27 clopidogrel 75 mg Oral tab 1 tab once daily [Active]; finasteride 5 mg Oral tab 1 tab mg2 once daily [Active]; levothyroxine 75 mcg tab 1 tab once daily [Active]; losartan 100 mg Oral tab 1 tab once daily [Active]; lovastatin 40 mg Oral tab 1 tab once daily [Active]; metformin 500 mg Oral cpER 1 tab 1 tab with breakfast, 1 tab with lunch, 2 tabs with evening meal [Active]; tamsulosin 0.4 mg Oral cp24 1 cap once daily [Active]; - PMHx: 23:27 Diabetes - NIDDM; DVT; Hypertension; mg2 - Immunization history:: Flu vaccine status is unknown. - Social history:: Smoking status: Patient denies any tobacco usage or history of. ROS: 23:15 Constitutional: Negative for body aches, chills, fever, poor PO intake. cp 23:15 Eyes: Negative for injury, pain, redness, and discharge. cp 23:15 Neck: Negative for pain with movement, pain at rest, stiffness. 23:15 Cardiovascular: Positive for chest pain, edema, Negative for palpitations. 23:15 Respiratory: Negative for cough, shortness of breath, wheezing. 23:15 Neuro: Negative for altered mental status, headache, syncope, weakness. 23:15 All other systems are negative. Exam: 23:20 Constitutional: The patient appears in no acute distress, alert, awake, cp non-diaphoretic, non-toxic, well developed, well nourished, uncomfortable. 23:20 Head/Face: Normocephalic, atraumatic. cp 23:20 Eyes: Periorbital structures: appear normal, Conjunctiva: normal, no exudate, no injection, Sclera: no appreciated abnormality, Lids and lashes: appear normal, bilaterally. 23:20 ENT: External ear(s): are unremarkable, Nose: is normal, Mouth: Lips: moist, Oral mucosa: moist, Posterior pharynx: Airway: no evidence of obstruction, patent. 23:20 Chest/axilla: Inspection: normal, Palpation: is normal, no crepitus, no tenderness. 23:20 Cardiovascular: Rate: normal, Rhythm: regular, Edema: ankle edema, that is mild, left lower extremity, JVD: is not appreciated. 23:20 Respiratory: the patient does not display signs of respiratory distress, Respirations: normal, no use of accessory muscles, no retractions, labored breathing, is not present, Breath sounds: are clear throughout, no decreased breath sounds, no stridor, no wheezing. 23:20 Abdomen/GI: Inspection: abdomen appears normal, Palpation: abdomen is soft and non-tender, in all quadrants. 23:20 Musculoskeletal/extremity: Extremities: right below the knee amputation. 23:20 Neuro: Orientation: to person, place \T\ time. Mentation: is normal. 23:25 ECG was reviewed by the Attending Physician. cp Vital Signs: 23:08 BP 186 / 104; Pulse 83; Resp 18; Temp 98.9; Pulse Ox 93% on R/A; Weight 90.72 kg; mg2 Height 5 ft. 9 in. (175.26 cm); Pain 8/10; 23:29 BP 175 / 100; Pulse 83; Resp 18; Pulse Ox 97% on 3 lpm NC; mg2 23:34 BP 152 / 99; Pulse 79; Resp 18; Pulse Ox 95% on 3 lpm NC; Pain 7/10; mg2 23:08 Body Mass Index 29.53 (90.72 kg, 175.26 cm) mg2 MDM: 23:21 Patient medically screened. 23:30 Differential diagnosis: abnormal EKG, acute myocardial infarction, pneumonia, cp pneumothorax, pulmonary embolus, stable angina, thoracic aortic disection, unstable angina. 12/21 00:00 Data reviewed: vital signs, nurses notes, lab test result(s), EKG, radiologic studies, cp plain films. 00:00 The patient was not given aspirin in the Emergency Department. Administered by EMS. Test interpretation: by ED physician or midlevel provider: ECG, chest xray negative for infiltrates. 00:05 Physician consultation: Basilio CIFUENTES was contacted at 00:00, regarding admission, to the telemetry unit. patient's condition. 12/20 23:12 Order name: Basic Metabolic Panel 12/20 23:12 Order name: CBC with Diff 12/20 23:12 Order name: LFT's 12/20 23:12 Order name: Magnesium 12/20 23:12 Order name: NT PRO-BNP 12/20 23:12 Order name: PT-INR; Complete Time: 23:57 12/20 23:12 Order name: Troponin (emerg Dept Use Only); Complete Time: 23:57 12/20 23:58 Interpretation: TROPED < 0.02; Reviewed. 12/20 23:13 Order name: Basic Metabolic Panel; Complete Time: 23:57 EDMS 12/20 23:57 Interpretation: Normal except: CL 108; GLUC 118; GFR 62. 12/20 23:13 Order name: CBC with Automated Diff; Complete Time: 23:57 EDMS 12/20 23:13 Order name: Liver (Hepatic) Function; Complete Time: 23:57 EDMS 12/20 23:58 Interpretation: Normal except: GLOB 4.3; A/G 0.8. 12/20 23:13 Order name: Magnesium; Complete Time: 23:57 EDMS 12/20 23:13 Order name: NT PRO-BNP; Complete Time: 23:57 EDIL 12/21 01:22 Order name: SARS-COV-2 RT PCR EDIL 12/20 23:12 Order name: XRAY Chest (1 view) 12/20 23:12 Order name: EKG; Complete Time: 23:13 12/20 23:12 Order name: Cardiac monitoring; Complete Time: 23:14 12/20 23:12 Order name: EKG - Nurse/Tech; Complete Time: 23:14 cp 12/20 23:12 Order name: IV Saline Lock; Complete Time: 23:14 cp 12/20 23:12 Order name: Labs collected and sent; Complete Time: 23:14 cp 12/20 23:12 Order name: O2 Per Protocol; Complete Time: 23:14 cp 12/20 23:12 Order name: O2 Sat Monitoring; Complete Time: 23:15 cp 12/21 01:12 Order name: CONS Physician Consult EDMS EC/26 23:25 Rate is 83 beats/min. Rhythm is regular. OR interval is normal. QRS interval is cp prolonged at 144 msec. QT interval is normal. T waves are Inverted in lead aVR. Interpreted by me. Reviewed by me. Administered Medications: 11:10 Drug: Nitrostat 0.4 mg Route: Sublingual; mg2 23:14 Drug: Zofran (Ondansetron) 4 mg Route: IVP; Site: right hand; mg2 12/21 01:40 Follow up: Response: No adverse reaction mg2 12/20 23:18 Drug: Nitrostat 0.4 mg Route: Sublingual; mg2 23:32 Drug: Nitrostat 0.4 mg Route: Sublingual; mg2 12/21 01:40 Follow up: Response: No adverse reaction; Marked relief of symptoms mg2 01:39 Drug: morphine 4 mg Route: IVP; Site: right hand; mg2 Disposition: 05:47 Co-signature as Attending Physician, Dada Moffett MD. ma2 Disposition: 12/21/20 00:04 Hospitalization ordered by Gallito Hunter for Observation. Preliminary diagnosis is Chest pain, unspecified. - Bed requested for Telemetry/MedSurg (Inpatient). - Status is Observation. mg2 - Condition is Stable. - Problem is new. - Symptoms have improved. Signatures: Dispatcher [employer] EDIL Emiliana Garsia RN RN mw Page, Corey, PA PA cp Alzahri, Mohammad, MD MD ma2 Jonathon Hernandez RN RN mg2 Corrections: (The following items were deleted from the chart) 00:35 00:04 CORONAVIRUS+MR.LAB.BRZ ordered. EDMS EDMS 01:37 00:04 Hospitalization Ordered by Gallito Hunter MD for Observation. Preliminary mw diagnosis is Chest pain, unspecified. Bed requested for Telemetry/MedSurg (Inpatient). Status is Observation. Condition is Stable. Problem is new. Symptoms have improved. cp 01:54 01:37 12/21/2020 00:04 Hospitalization Ordered by Gallito Hunter MD for Observation. mg2 Preliminary diagnosis is Chest pain, unspecified. Bed requested for Telemetry/MedSurg (Inpatient). Status is Observation. Condition is Stable. Problem is new. Symptoms have improved. mw
[2020-12-21] MEDS ORDERED: MORPHINE 4 MG/ML SYR ONE (01:52)
[2020-12-21] MEDS ORDERED: MORPHINE 2 MG/ML SYR IV PRN (02:06)
[2020-12-21] MEDS ORDERED: ONDANSETRON 4 MG/2 ML VIAL IV PRN (02:06)
[2020-12-21] MEDS ORDERED: ACETAMINOPHEN 500 MG TAB PO PRN (02:06)
[2020-12-21] MEDS ORDERED: NITROGLYCERIN 0.4 MG/TAB SL PRN (02:06)
[2020-12-21 02:10] VITALS: BMI 31.2
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
[2020-12-21 03:39] LABS: Thyroid Stimulating Hormone 4.57 uIU/mL (0.360-3.740)
[2020-12-21] MEDS ORDERED: LEVOTHYROXINE SOD 0.075 MG TAB PO SCH (06:30)
[2020-12-21] MEDS: INSULIN -REGULAR HUMAN 50 UNIT/0.5 ML ML SQ SCH ×2 (07:30→11:30)
[2020-12-21] MEDS ORDERED: FUROSEMIDE 40 MG/4 ML VIAL IV ONE (08:06)
[2020-12-21] MEDS ORDERED: POTASSIUM 25 MEQ EFFERV TAB PO ONE (09:00)
[2020-12-21] MEDS ORDERED: LOSARTAN POTASSIUM 50 MG TABLET PO SCH (09:00)
[2020-12-21] MEDS ORDERED: ASPIRIN EC 81 MG TAB PO SCH (09:00)
[2020-12-21] MEDS ORDERED: ENOXAPARIN 40 MG/0.4 ML SQ SCH (09:00)
[2020-12-21] MEDS ORDERED: FINASTERIDE 5 MG TAB PO SCH (09:00)
[2020-12-21] MEDS ORDERED: TAMSULOSIN 0.4 MG SR CAP PO SCH (09:00)
--- NOTE | 2020-12-21 09:21 | RAD REPORT ---
EXAM DESCRIPTION: Krystal Single View12/20/2020 11:55 pm CLINICAL HISTORY: Chest pain COMPARISON: 2019 FINDINGS: The lungs appear clear of acute infiltrate. The heart is normal size IMPRESSION: No acute abnormalities displayed
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
--- NOTE | 2020-12-21 11:11 | EKG ---
Test Date: 2020-12-20 Test Time: 23:06:00 Radiology Technician: AAKASH MEASUREMENT RESULTS: Intervals: Rate: 74 OK: 158 QRSD: 148 QT: 414 QTc: 459 [place]: P: 60 OK: 158 QRS: 92 T: 65 INTERPRETIVE STATEMENTS: Normal sinus rhythm Right bundle branch block Abnormal ECG Compared to ECG 09/20/2020 21:56:19 No significant changes Electronically Signed On 12-21-20 11:11:05 CDT by Vinny Magallanes
[2020-12-21 12:29] VITALS: O2SAT 94
[2020-12-21 13:52] VITALS: BP 150/88; TEMP 98.5
--- NOTE | 2020-12-21 13:54 | CON ---
Date of Consultation: 12/21/2020 Reason For Consultation: Chest pain and palpitations. History Of Present Illness: Mr. Ewing is a 60-year-old. He is known to us from previous office v isits and admissions. He does have a history of hypertension, diabetes, and dyslipidemia as well as coronary artery disease. He has also had a BKA. He came in mostly with palpitations rather than perico st pain. He denied any nausea, vomiting, diaphoresis, PND, orthopnea, pedal edema, palpitations, or syncope. He stated that his symptoms started after starting a new blood pressure medicine, but he co uld not recall that which name it was, but it sounds like it was amlodipine. He sees Ms. Laura barron as a PA as an outpatient. He is asymptomatic right now and he wants to go home. Past Medical History: As stated above. Allergies: NONE. Review of Systems: Negative. Social History: Negative. Family History: Noncontributory. Medications: At home include aspirin, metformin, Plavix, Flomax, losartan. Physical Examination: Vital signs: Stable. He was afebrile his. HEENT: Negative. Neck: Supple without any bruit, lymphadenopathy, JVD, or thyromegaly. Chest: Clear to auscultation and percussion. Abdomen: Benign. Extremities: Revealed no clubbing, cyanosis, or edema. He is status post right BKA. Diagnostic Data: All within normal limits. His troponin was negative. Impression And Plan: 1.Palpitations and atypical chest pain, possibly secondary to his new antihypertensive medicine. We will stop that for now. He can go home on his regimen, which include aspirin, metformin, Plavix, Fl omax, and losartan. 2.Diabetes, dyslipidemia. Blood pressure is well controlled at this point. I will probably see him as an outpatient in the near future and have him do an event monitor to make sure he does not have a ny atrial fibrillation. Meanwhile, I am comfortable with him going home on home medication without t he new medicine he just started. I will make an appointment for him in the office in the very near [facility]. He can go home today. SABA/ANA Voice ID: [id number] Report ID: [id number]
[2020-12-21] MEDS ORDERED: ATORVASTATIN 10 MG TAB PO SCH (21:00)
== END 2020-12-21 12:10 | disposition home or self-care (01) ==
LOC: ER 23:10 → ERHOLD 12-21 01:11 → 2ND 12-21 01:45
PROVIDERS: ADMIT Internal Medicine Nephrology; ATTEND Internal Medicine
DX: R07.89 Other chest pain (principal); R00.2 Palpitations; I10 Essential (primary) hypertension; R60.0 Localized edema; E11.9 Type 2 diabetes mellitus without complications; I25.10 Atherosclerotic heart disease of native coronary artery without angina pectoris; E78.5 Hyperlipidemia, unspecified; E03.9 Hypothyroidism, unspecified; Z20.822 Contact with and (suspected) exposure to COVID-19; Z79.02 Long term (current) use of antithrombotics/antiplatelets; Z89.511 Acquired absence of right leg below knee; Z86.718 Personal history of other venous thrombosis and embolism; Z82.49 Family history of ischemic heart disease and other diseases of the circulatory system; Z80.9 Family history of malignant neoplasm, unspecified
CPT/HCPCS: 93005 ×2; 85025; 80048; 36415; 83735; 85610; 82947 ×2; 80076; 84443; 84484 ×2; 84439; 83880; 71045; 94760 ×2; 96375; 96374; 99285; U0003; J1940; J1650; G0378

== ENCOUNTER 2021-04-30 14:55 | Observation (INO) | payer OTHER ==
--- OUTSIDE RECORDS SUMMARY | 2021-04-30 14:59 | XMS REPORT | Continuity of Care Document ---
:1960 Author Organization [facility] t Address [address] [place] [address] Care Team Providers Name Role Phone Meño [...] Start Date Stop Date Source Never Smoker [facility] Medications Ordered Filled Start [...] Tamsulosin Tamsulosin Yes Regina 1 capsule [facility] HCl HCl [place] [facility] Procedures Procedure Date / Time Performed Performing Clinician [facility] e CT, urogram 2018-07-07 00:00:00 [facility] Plan of Care Planned Activity Planned Date Details Comments Source Diagnostic Test 2018-07-07 cytology, urine [facility] Pending 00:00:00 [code = cytology, Group urine] Encounters Start End Encounter Admission Attending Care Care Encounter Source Date/Time Date/Time Type Type Clinicians Facility Department ID 2021-04-25 2021-04-25 [facility] [id number] 2021-04-03 2021-04-[address] [facility] [id number] [facility] 2021-01-24 2021-01-24 [facility] [id number] [facility] 2021-01-17 2021-01-17 [facility] [id number] [facility] 2021-01-13 2021-01-13 [facility] [id number] [facility] 2021-01-10 2021-01-10 [facility] [id number] [facility] 2020-12-31 2020-12-31 [facility] [id number] [facility] 2020-12-25 2020-12-25 [id number] 12:51:24 13:25:03 Visit [facility] [id number] Surgical [id number] [facility] [id number] [address] [place] 2020-12-23 2020-12-23 [facility]patient [facility] [id number] [facility] 2020-12-21 2020-12-21 [facility] [id number] [facility] 2020-12-19 2020-12-19 [facility] [id number] [facility] 2020-12-17 2020-12-17 [facility] [id number] [facility] 2020-12-17 2020-12-17 [facility] [id number] [facility] 2020 2020 [facility] [id number] [facility] 2020-12-09 2020-12-09 [facility] [id number] [facility] 2020-11-07 2020-11-07 [facility] [id number] [facility] 2020-11-04 2020-11-04 [facility] [id number] [facility] 2020-11-04 2020-11-04 [facility] [id number] [facility] 2020-10-15 2020-10-15 Outpatient [facility] [id number] [facility] 07[facility]11:00 07:11:00 2020-09-09 2020-09-09 [facility] [id number] [facility] 2020-07-16 2020-07-16 [facility] [id number] [facility] 2020-05-06 2020-05-06 [facility] [id number] [facility] 10:52:00 10:52:00 [facility] 2020-04-10 2020-04-10 [facility] [id number] [facility] 13:19:00 13:19:00 [facility] 2020-04-08 2020-04-08 [facility] [id number] 11:08:00 11:08:00 [facility] 2020-04-05 2020-04-05 [facility] [id number] [facility] 18[facility]34:00 18:34:00 [facility] 2020-01-09 2020-01-09 [facility] [id number] [facility] 14:23:00 14:23:00 [facility] 2020-01-08 2020-01-08 [facility] [id number] [facility] 08:00:00 08:00:[address] [facility] Medicine Outpat[facility] Clinics 2019-11-22 2019-11-22 [facility] [id number] [facility] 19:45:00 19:45:[address] [facility] Medicine Out[facility] Clinics 2019-11-08 2019-11-08 [facility] [id number] [facility] 09:12:00 09:12:[address] [facility] Medicine Outpat[facility] Clinics 2019-11-07 2019-11-07 [facility] [id number] 08:17:00 08:17:00 [facility] 2019-10-19 2019-10-19 [facility] [id number] 15:57:00 15:57:00 [facility] 2019-10-18 2019-10-18 [facility] [id number] 09:24:00 09:24:00 [facility] 2019-10-17 2019-10-17 [facility] [id number] 09:00:00 09:00:00 [facility] 2019-10-09 2019-10-09 [facility] [id number] [facility] 10[facility]27:00 10:27:00 [facility] Clin[facility] 2019-10-09 2019-10-09 [facility] [id number] [facility] 09:00:00 09:00:00 [facility] Clin[facility] 2018-08-08 2018-08-08 Saravanan [place] - [id number] M rogelio 00:00:00 00:00:00 Terrance DO: [facility] [address] [place] [address] - [address], [facility] [address] , Ph. [phone] 2018-08-04 2018-08-04 Jose Garcia [facility] [place] - [id number] M atagor 00:00:00 00:00:00 MD Bobbi: [address] - [facility], [place] [address] , Ph. 2018-07-07 2018-07-07 Jose Garcia [facility] [place] - [id number] M atagor 00:00:00 00:00:00 MD Bobbi: [address], [place] [address] , Ph. Results This patient has no known results.
--- NOTE | 2021-04-30 18:39 | ER ---
Nurse's Notes [facility] Name: Moshe Ewing Age: 60 yrs Sex: Male : 1960 Arrival Date: 04/30/2021 Time: 15:01 Bed 28 Private MD: Diagnosis: Chest pain, unspecified;Essential (primary) hypertension;Type 2 diabetes mellitus with hyperglycemia;Diplopia Presentation: 04/30 15:16 Chief complaint: Patient states: Neck pain for 2.[address] Soto today, ll1 and told him he was having double vision (has it for 3 days) and was told to come to ER for eval. Some nausea, + dizzy with double vision. Coronavirus screen: Client denies travel out of the [place] in the last 14 days. At this time, the client does not indicate any symptoms associated with coronavirus-19. Ebola Screen: Patient denies travel to an Ebola-affected area in the 21 days before illness onset. No symptoms or risks identified at this time. Initial Sepsis Screen: Does the patient meet any 2 criteria? No. Patient's initial sepsis screen is negative. Does the patient have a suspected source of infection? Yes: Bone or joint infection. Risk Assessment: Do you want to hurt yourself or someone else? Patient reports no desire to harm self or others. Onset of symptoms was April 13, 2021. 15:16 Method Of Arrival: Ambulatory 1 15:16 Acuity: MYRIAM 3 ll1 Historical: - Allergies: 15:20 No Known Allergies; ll1 - Home Meds: 18:31 clopidogrel 75 mg Oral tab 1 tab once daily [Active]; tamsulosin 0.4 mg Oral cp24 1 cap ss once daily [Active]; metformin 500 mg Oral cpER 1 tab 1 tab with breakfast, 1 tab with lunch, 2 tabs with evening meal [Active]; lovastatin 40 mg Oral tab 1 tab once daily [Active]; losartan 100 mg Oral tab 1 tab once daily [Active]; levothyroxine 75 mcg tab 1 tab once daily [Active]; finasteride 5 mg Oral tab 1 tab once daily [Active]; - PMHx: 15:20 Diabetes - NIDDM; DVT; Hypertension; ll1 - PSHx: 15:20 back SX; foot/shoulder SX; Cholecystectomy; ll1 15:21 L hand SX with plates placed; stimulator R back for legs; ll1 - Immunization history:: Client reports having NOT received the Covid vaccine. Flu vaccine is not up to date. - Social history:: Smoking status: Patient denies any tobacco usage or history of. - Family history:: not pertinent. Screenin:31 Abuse screen: Denies threats or abuse. Nutritional screening: No deficits noted. vg1 Tuberculosis screening: No symptoms or risk factors identified. Fall Risk No fall in past 12 months (0 pts). No secondary diagnosis (0 pts). IV access (20 points). Ambulatory Aid- None/Bed Rest/Nurse Assist (0 pts). Gait- Impaired (20 pts.). Mental Status- Oriented to own ability (0 pts). Total Ramirez Fall Scale indicates Low Risk Score (25-44 pts). Fall prevention measures have been instituted. Side Rails Up X 2 Placed close to Nursing Station. Assessment: 19:27 General: Appears in no apparent distress. comfortable. Pain: Denies pain. Neuro: Level vg1 of Consciousness is awake, alert, obeys commands, Oriented to person, place, time, situation, Social Secretary are equal bilaterally Moves all extremities. Gait is steady, Speech is normal, Facial symmetry appears normal, Reports blurred vision dizziness, double vision, but denies double vision at this time. Cardiovascular: Patient's skin is warm and dry. Respiratory: Airway is patent Respiratory effort is even, unlabored. GI: Patient currently denies nausea, vomiting. : No signs and/or symptoms were reported regarding the genitourinary system. EENT: No signs and/or symptoms were reported regarding the EENT system. Derm: Skin is intact, is healthy with good turgor. Musculoskeletal: Amputation of Right BKA. Circulation, motion, and sensation intact. Vital Signs: 15:16 BP 179 / 107; Pulse 84; Resp 17; Temp 97.9; Pulse Ox 99% ; Weight 99.79 kg; Height 5 ll1 ft. 9 in. (175.26 cm); Pain 9/10; 16:26 BP 172 / 110; Pulse 70; Resp 18; Pain 10/10; ll1 16:32 Resp 20; Pulse Ox 100% ; ll1 16:42 BP 203 / 106; Pulse 80; Resp 19; Pulse Ox 100% ; Pain 10/10; ll1 19:30 BP 168 / 101; Pulse 70; Resp 16; Pulse Ox 97% ; vg1 15:16 Body Mass Index 32.49 (99.79 kg, 175.26 cm) ll1 16:26 reports 10 min of CP, asking for a nitro pill. Did not bring his with him. ll1 ED Course: 15:01 Patient arrived in ED. mr 15:20 Triage completed. ll1 15:22 Arm band placed on. ll1 17:15 Patient placed in an exam room, on a stretcher. ss 18:02 Chris Plummer MD is Attending Physician. lamont 18:28 Munira Stiles, RN is Primary Nurse. vg1 18:30 Initial lab(s) drawn, by me, sent to lab. Inserted saline lock: 20 gauge in left wrist, vg1 using aseptic technique. ,using aseptic technique. Completed by [facility] Blood collected. 18:31 Patient has correct armband on for positive identification. Bed in low position. Call vg1 light in reach. Side rails up X 1. 18:37 Doron Moralez DO is Hospitalizing Provider. lamont 18:39 CT Head Brain wo Cont In Process Unspecified. EDMS 18:57 XRAY Chest (1 view) In Process Unspecified. EDTN 19:11 Primary Nurse role handed off by Munira Stiles RN 19:26 Munira Stiles, FANNY is Primary Nurse. vg1 Administered Medications: 19:22 Drug: NS 0.9% 1000 ml Route: IV; Rate: 125 ml/hr; Site: left wrist; vg1 19:23 Drug: Aspirin 81 mg Route: PO; vg1 19:24 Drug: Norvasc (amlodipine) 10 mg Route: PO; vg1 Outcome: 18:38 Decision to Hospitalize by Provider. [facility] 05/01 11:54 Patient left the ED. jd3 Signatures: Dispatcher [employer] EDTN Chris Plummer MD MD cha Rivera, Stephenie Samreen Tyler, RN Eleazar Monteiro RN RN Munira Mahmood RN RN vg1 Domenico Montalvo RN RN ll1
--- NOTE | 2021-04-30 18:39 | EDPHYS ---
Physician Documentation [facility] Name: Moshe Ewing Age: 60 yrs Sex: Male : 1960 Arrival Date: 04/30/2021 Time: 15:01 Bed 28 Private MD: Chris Elaine HPI: 04/30 18:31 This 60 yrs old Male presents to ER via Ambulatory with complaints of Vision lamont Problem. 18:31 The patient is experiencing double vision. Onset: The symptoms/episode began/occurred 1 lamont day(s) ago. Duration: the symptoms are intermittent, resolved. Aggravated by nothing. Alleviated by nothing. Associated signs and symptoms: Pertinent positives: None. The patient or guardian reports chest pain that is located primarily in the substernal area. Onset: 1 day(s) ago. The pain does not radiate. Patient wears glasses. The chest pain is described as a heaviness, a pressure. Historical: - Allergies: 15:20 No Known Allergies; ll1 - Home Meds: 18:31 clopidogrel 75 mg Oral tab 1 tab once daily [Active]; tamsulosin 0.4 mg Oral cp24 1 cap ss once daily [Active]; metformin 500 mg Oral cpER 1 tab 1 tab with breakfast, 1 tab with lunch, 2 tabs with evening meal [Active]; lovastatin 40 mg Oral tab 1 tab once daily [Active]; losartan 100 mg Oral tab 1 tab once daily [Active]; levothyroxine 75 mcg tab 1 tab once daily [Active]; finasteride 5 mg Oral tab 1 tab once daily [Active]; - PMHx: 15:20 Diabetes - NIDDM; DVT; Hypertension; ll1 - PSHx: 15:20 back SX; foot/shoulder SX; Cholecystectomy; ll1 15:21 L hand SX with plates placed; stimulator R back for legs; ll1 - Immunization history:: Client reports having NOT received the Covid vaccine. Flu vaccine is not up to date. - Social history:: Smoking status: Patient denies any tobacco usage or history of. - Family history:: not pertinent. ROS: 18:31 Constitutional: Negative for fever, chills, and weight loss, Eyes: Negative for injury, lamont pain, redness, and discharge, ENT: Negative for injury, pain, and discharge, Neck: Negative for injury, pain, and swelling, Respiratory: Negative for shortness of breath, cough, wheezing, and pleuritic chest pain, Abdomen/GI: Negative for abdominal pain, nausea, vomiting, diarrhea, and constipation, Back: Negative for injury and pain, : Negative for injury, bleeding, discharge, and swelling, MS/Extremity: Negative for injury and deformity, Skin: Negative for injury, rash, and discoloration, Neuro: Negative for headache, weakness, numbness, tingling, and seizure, Psych: Negative for depression, anxiety, suicide ideation, homicidal ideation, and hallucinations, Allergy/Immunology: Negative for hives, rash, and allergies, Endocrine: Negative for neck swelling, polydipsia, polyuria, polyphagia, and marked weight changes, Hematologic/Lymphatic: Negative for swollen nodes, abnormal bleeding, and unusual bruising. 18:31 Cardiovascular: Positive for chest pain, of the chest. 18:31 Respiratory: Negative for cough. Exam: 18:33 Constitutional: This is a well developed, well nourished patient who is awake, alert, lamont and in no acute distress. Head/Face: Normocephalic, atraumatic. Eyes: Pupils equal round and reactive to light, extra-ocular motions intact. Lids and lashes normal. Conjunctiva and sclera are non-icteric and not injected. Cornea within normal limits. Periorbital areas with no swelling, redness, or edema. ENT: Nares patent. No nasal discharge, no septal abnormalities noted. Tympanic membranes are normal and external auditory canals are clear. Oropharynx with no redness, swelling, or masses, exudates, or evidence of obstruction, uvula midline. Mucous membranes moist. Neck: Trachea midline, no thyromegaly or masses palpated, and no cervical lymphadenopathy. Supple, full range of motion without nuchal rigidity, or vertebral point tenderness. No Meningismus. Chest/axilla: Normal chest wall appearance and motion. Nontender with no deformity. No lesions are appreciated. Cardiovascular: Regular rate and rhythm with a normal S1 and S2. No gallops, murmurs, or rubs. Normal PMI, no JVD. No pulse deficits. Respiratory: Lungs have equal breath sounds bilaterally, clear to auscultation and percussion. No rales, rhonchi or wheezes noted. No increased work of breathing, no retractions or nasal flaring. Abdomen/GI: Soft, non-tender, with normal bowel sounds. No distension or tympany. No guarding or rebound. No evidence of tenderness throughout. Back: No spinal tenderness. No costovertebral tenderness. Full range of motion. Male : Normal genitalia with no discharge or lesions. Skin: Warm, dry with normal turgor. Normal color with no rashes, no lesions, and no evidence of cellulitis. MS/ Extremity: Pulses equal, no cyanosis. Neurovascular intact. Full, normal range of motion. Neuro: Awake and alert, GCS 15, oriented to person, place, time, and situation. Cranial nerves II-XII grossly intact. Motor strength 5/5 in all extremities. Sensory grossly intact. Cerebellar exam normal. Normal gait. Psych: Awake, alert, with orientation to person, place and time. Behavior, mood, and affect are within normal limits. 18:33 ECG was reviewed by the Attending Physician. Vital Signs: 15:16 BP 179 / 107; Pulse 84; Resp 17; Temp 97.9; Pulse Ox 99% ; Weight 99.79 kg; Height 5 ll1 ft. 9 in. (175.26 cm); Pain 9/10; 16:26 BP 172 / 110; Pulse 70; Resp 18; Pain 10/10; ll1 16:32 Resp 20; Pulse Ox 100% ; ll1 16:42 BP 203 / 106; Pulse 80; Resp 19; Pulse Ox 100% ; Pain 10/10; ll1 19:30 BP 168 / 101; Pulse 70; Resp 16; Pulse Ox 97% ; vg1 15:16 Body Mass Index 32.49 (99.79 kg, 175.26 cm) ll1 16:26 reports 10 min of CP, asking for a nitro pill. Did not bring his with him. ll1 MDM: 18:02 Patient medically screened. lamont 18:34 Differential diagnosis: abnormal EKG, acute myocardial infarction. HEART Score: lamont History: Moderately Suspicious (1), ECG: Normal (0), Age: > 45 and < 65 years (1), Risk Factors: > or = 3 Risk factors for atherosclerotic disease (2), [Hypercholesterolemia] [Hypertension] [DM] [+ Family HX] Troponin: < or = 1 x Normal Limit (0). The patient was not given aspirin in the Emergency Department. Not indicated due to patient's past medical history. The patient's deep vein thrombosis risk score was calculated as follows: Total Score: 0. This patient was found to be at low risk for a deep vein thrombosis by using the Well's assessment criteria. The patient's pulmonary embolism risk score was calculated as follows: Total Score: 0-2 points. This patient was found to be at low risk for a pulmonary embolism by using the Well's assessment criteria. LAURA Risk Score: 1 - Three or more CAD risk factors, TOTAL SCORE = 1. Data reviewed: vital signs, nurses notes, lab test result(s), EKG, radiologic studies, CT scan, plain films. 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 Test interpretation: by ED physician or midlevel provider: ECG, plain radiologic studies. Counseling: I had a detailed discussion with the patient and/or guardian regarding: the historical points, exam findings, and any diagnostic results supporting the discharge/admit diagnosis, lab results, radiology results, the need for further work-up and treatment in the hospital. 04/30 18:13 Order name: Basic Metabolic Panel [facility] 04/30 18:13 Order name: CBC with Diff; Complete Time: 18:51 [facility] 04/30 18:13 Order name: LFT's; Complete Time: 19:10 [facility] 04/30 18:13 Order name: Magnesium; Complete Time: 19:10 [facility] 04/30 18:13 Order name: NT PRO-BNP; Complete Time: 19:10 [facility] 04/30 18:13 Order name: PT-INR; Complete Time: 18:51 [facility] 04/30 18:13 Order name: Troponin (emerg Dept Use Only); Complete Time: 19:10 [facility] 04/30 18:13 Order name: Basic Metabolic Panel; Complete Time: 19:10 [facility] 04/30 19:16 Order name: Urine Dipstick-Ancillary [facility] 04/30 20:00 Order name: SARS-COV-2 RT PCR [facility] 04/30 22:40 Order name: Glucose, Ancillary Testing [facility] 04/30 22:41 Order name: Glucose, Ancillary Testing [facility] 04/30 23:07 Order name: Urinalysis [facility] 04/30 18:13 Order name: XRAY Chest (1 view) [facility] 04/30 18:13 Order name: CT Head Brain wo Cont; Complete Time: 18:59 [facility] 05/01 00:46 Order name: Troponin I [facility] 05/01 04:08 Order name: CBC with Automated Diff [facility] 05/01 04:19 Order name: Comprehensive Metabolic Panel [facility] 05/01 04:19 Order name: Troponin I [facility] 05/01 04:19 Order name: Lipid Profile [facility] 05/01 04:19 Order name: T4 Free [facility] 05/01 04:19 Order name: Thyroid Stimulating Hormone [facility] 05/01 04:40 Order name: Hemoglobin A1c [facility] 05/01 08:55 Order name: MRI [facility] 05/01 09:44 Order name: Glucose, Ancillary Testing [facility] 05/01 09:58 Order name: MRI [facility] 05/01 10:08 Order name: US [facility] 05/01 10:12 Order name: MRI [facility] 04/30 16:27 Order name: EKG; Complete Time: 16:28 [facility] 04/30 16:27 Order name: EKG - Nurse/Tech; Complete Time: 16:27 [facility] 04/30 18:13 Order name: Cardiac monitoring; Complete Time: 18:30 [facility] 04/30 18:13 Order name: IV Saline Lock; Complete Time: 18:30 [facility] 04/30 18:13 Order name: Labs collected and sent; Complete Time: 18:30 [facility] 04/30 18:13 Order name: O2 Per Protocol; Complete Time: 18:29 [facility] 04/30 18:13 Order name: O2 Sat Monitoring; Complete Time: 18:29 [facility] 04/30 18:27 Order name: Urine Dipstick-Ancillary (obtain specimen); Complete Time: 19:31 [facility] EC:33 Rate is 70 beats/min. Rhythm is regular. QRS Paulina is Normal. TX interval is normal. QRS lamont interval is normal. QT interval is normal. No Q waves. T waves are Normal. No ST changes noted. Clinical impression: No evidence of ischemia. Interpreted by me. Reviewed by me. Administered Medications: 19:22 Drug: NS 0.9% 1000 ml Route: IV; Rate: 125 ml/hr; Site: left wrist; vg1 19:23 Drug: Aspirin 81 mg Route: PO; vg1 19:24 Drug: Norvasc (amlodipine) 10 mg Route: PO; vg1 Disposition Summary: 04/30/21 18:38 Hospitalization Ordered Hospitalization Status: Observation lamont Provider: Doron Moralez cha Condition: Fair lamont Problem: new lamont Symptoms: have improved lamont Bed/Room Type: Standard lamont Location: [facility] ER HOLD(04/30/21 22:41) Room Assignment: ERHOLD-(04/30/21 22:41) cg Diagnosis - Chest pain, unspecified lamont - Essential (primary) hypertension lamont - Type 2 diabetes mellitus with hyperglycemia lamont - Diplopia lamont Forms: - Medication Reconciliation Form lamont - SBAR form lamont Signatures: Dispatcher [employer] EDMS Chris Plummer MD MD cha Smirch, Shelby, RN RN ss Soy Ayala, GEOMETRICIAN-C GEOMETRICIAN-Cla1 Yue Stiles RN RN cg Munira Stiles RN RN vg1 Domenico Montalvo RN RN ll1 Corrections: (The following items were deleted from the chart) 18:36 18:13 CORONAVIRUS+Z ordered. [facility] 22:41 18:38 Telemetry/MedSurg (observation) lamont 22:41 18:38 lamont cg
[2021-04-30 18:43] LABS: Absolute Lymphocytes (CBC) 1.4 K/uL (0.7-4.9); Basophils % 0.8 % (0-1.3); Hematocrit 40.4 % (39.6-49.0); Lymphocytes % 22.1 % (15.3-44.8); MPV 7.7 fL (7.6-11.3); RBC Red Blood Cell Count 4.78 M/uL (4.33-5.43)
[2021-04-30 18:45] LABS: Protime INR 1.05
--- NOTE | 2021-04-30 18:57 | RAD REPORT ---
EXAM DESCRIPTION: CT - Head Brain Wo Cont - 04/30/2021 6:38 pm CLINICAL HISTORY: DIZZINESS COMPARISON: No comparisons TECHNIQUE: All CT scans are performed using dose optimization technique as appropriate and may inclu de automated exposure control or mA/KV adjustment according to patient size. FINDINGS: No intracranial hemorrhage, hydrocephalus or extra-axial fluid collection.No areas of brai n edema or evidence of midline shift. The paranasal sinuses and mastoids are clear. The calvarium is intact. IMPRESSION: No acute intracranial abnormality.
[2021-04-30 19:04] LABS: ALT/SGPT 33 U/L (12-78); AST/SGOT 21 U/L (15-37); Albumin 3.8 g/dL (3.4-5.0); Alkaline Phosphatase 77 U/L (45-117); BUN Blood Urea Nitrogen 14 mg/dL (7-18); Bicarbonate 24 mmol/L (21-32); Bilirubin Direct 0.1 mg/dL (0-0.2); Bilirubin Total 0.3 mg/dL (0.2-1.0); Glucose Level 111 mg/dL (74-106); NT PRO-BNP 40 pg/mL (<125); Potassium 3.9 mmol/L (3.5-5.1); Protein, Total 7.9 g/dL (6.4-8.2); Sodium Level 136 mmol/L (136-145); Troponin (Emerg Dept Use Only) < 0.02 ng/mL (0.0-0.045)
--- NOTE | 2021-04-30 19:12 | RAD REPORT ---
EXAM DESCRIPTION: RAD - Chest Single View - 04/30/2021 6:57 pm CLINICAL HISTORY: COUGH COMPARISON: <Comparisons> FINDINGS: No evidence of edema or pneumonia. The heart size is within normal limits.No acute osseous abnormality. No significant pleural effusions or pneumothorax. IMPRESSION: No acute cardiopulmonary disease.
[2021-04-30 19:17] LABS: Urine Blood Negative (Negative); Urine Glucose Negative (Negative); Urine Protein Trace (Negative); Urine Specific Gravity 1.025 (1.005-1.030); Urine pH 5.5 (5.0-7.0)
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
[2021-04-30] MEDS ORDERED: AMLODIPINE 10 MG TAB ONE (19:36)
[2021-04-30] MEDS ORDERED: ASPIRIN 81 MG CHEWABLE TABLET ONE (19:36)
[2021-04-30] MEDS ORDERED: NA CHLORIDE 0.9% 1,000 ML ONE (19:36)
[2021-04-30] MEDS ORDERED: ACETAMINOPHEN 500 MG TAB PO PRN (21:25)
[2021-04-30] MEDS ORDERED: ONDANSETRON 4 MG/2 ML VIAL IV PRN (21:25)
[2021-04-30] MEDS ORDERED: ATORVASTATIN 20 MG TAB PO SCH (21:25)
[2021-04-30] MEDS: INSULIN -REGULAR HUMAN 50 UNIT/0.5 ML ML SQ SCH (21:25)
[2021-04-30 21:52] VITALS: O2SAT 99; BMI 30.1
[2021-04-30] MEDS ORDERED: POTASSIUM CL SA 10 MEQ TAB PO ONE (22:35)
[2021-04-30] MEDS ORDERED: ATORVASTATIN 20 MG TAB ONE (22:53)
[2021-04-30 23:06] LABS: Urine Appearance CLEAR (Clear); Urine Bilirubin NEGATIVE (Negative); Urine Blood NEGATIVE (Negative); Urine Color YELLOW (Yellow); Urine Glucose NEGATIVE (Negative); Urine Microscopic Reflex NO UMIC; Urine Protein NEGATIVE (Negative); Urine Specific Gravity 1.015 (1.005-1.030); Urine Urobilinogen 0.2 mg/dL (0.2-1.0); Urine pH 5.5 (5.0-7.0)
[2021-05-01 04:06] LABS: Absolute Lymphocytes (CBC) 1.4 K/uL (0.7-4.9); Basophils % 0.4 % (0-1.3); Hematocrit 39.6 % (39.6-49.0); Lymphocytes % 25.7 % (15.3-44.8); MPV 7.9 fL (7.6-11.3); RBC Red Blood Cell Count 4.67 M/uL (4.33-5.43)
[2021-05-01 04:19] VITALS: TEMP 98
[2021-05-01 04:19] LABS: ALT/SGPT 27 U/L (12-78); AST/SGOT 16 U/L (15-37); Albumin 3.4 g/dL (3.4-5.0); Alkaline Phosphatase 70 U/L (45-117); BUN Blood Urea Nitrogen 13 mg/dL (7-18); Bicarbonate 28 mmol/L (21-32); Bilirubin Total 0.4 mg/dL (0.2-1.0); Glucose Level 107 mg/dL (74-106); HDL Cholesterol 36 mg/dL (40-60); LDL Cholesterol, Calculated 42 (<130); Protein, Total 7.2 g/dL (6.4-8.2); Sodium Level 141 mmol/L (136-145); Troponin I < 0.02 ng/mL (0.0-0.045)
--- NOTE | 2021-05-01 06:19 | P.DS ---
Admission Date: 04/30/21 Discharge Date: 05/01/21 Primary Care Provider: Dr. Soto Disposition: ROUTINE DISCHARGE Discharge Condition: GOOD Reason for Admission: Diplopia Consultations: none Procedures: CT head: COMPARISON: No comparisons TECHNIQUE: All CT scans are performed using dose optimization technique as appropriate and may include automated exposure control or mA/KV adjustment according to patient size. FINDINGS: No intracranial hemorrhage, hydrocephalus or extra-axial fluid collection.No areas of brain edema or evidence of midline shift. The paranasal sinuses and mastoids are clear. The calvarium is intact. IMPRESSION: No acute intracranial abnormality. MRI brain: COMPARISON: MRA Head Wo Cont dated 05/01/2021 TECHNIQUE: Multi-sequence, multiplanar MR imaging of the brain was performed with contrast. FINDINGS: No intracranial hemorrhage, hydrocephalus, or extra-axial fluid collection.Small areas of T2 and FLAIR hyperintensity are seen most compatible with mild chronic microvascular ischemic changes. No edema or shift of midline structures. No intracranial mass. DWI is negative for acute CVA. The midline structures are normally formed. 9 mm polyp or mucous retention cyst inferior left maxillary antrum. The paranasal sinuses and mastoids are otherwise clear. Post-contrast images show no abnormal enhancement to suggest tumor or infection. IMPRESSION: Negative for acute CVA or other acute intracranial process. No pathologic post-contrast enhancement suspected. MRA brain: COMPARISON: Head Brain Wo Cont dated 04/30/2021 FINDINGS: 3D noncontrast [id number] MR angiography of the [place] was performed. No aneurysm, flow-limiting stenosis or vascular malformation is seen. Forward flow seen in codominant vertebral arteries. The visualized dural venous sinuses appear patent. IMPRESSION: No significant flow abnormality of the [place] is id entified. MRA neck: COMPARISON: Soft Tissue Neck W/O Cont dated 04/21/2021; Carotid Artery Bilateral dated 05/01/2021 FINDINGS: Contrast enhance 2D [id number] MR angiography of the neck vessels was performed. A left aortic arch is noted. Both common carotid arteries and subclavian arteries are widely patent. No evidence of right internal carotid artery stenosis. The left carotid bulb is mildly narrowed stenosis estimated at 50% or less based on NASCET criteria. Forward flow is seen in the vertebral arteries. IMPRESSION: Less than 50% narrowing of the left carotid bulb is seen. Carotid Doppler: COMPARISON: Soft Tissue Neck W/O Cont dated 04/21/2021 TECHNIQUE: Real-time sonographic evaluation of both carotid systems was performed. Doppler interrogation was performed with waveform tracing bilaterally. FINDINGS: Normal high resistance waveforms are noted in both external carotid arteries. The common carotid arteries and internal carotid arteries show normal low resistance waveforms. Mild focal hard plaque is seen right carotid bulb. Peak systolic and end diastolic velocity values and the ICA/CCA ratios are in the non-hemodynamically significant range. Antegrade flow seen in both vertebral arteries. IMPRESSION: Mild focal hard plaque is seen right carotid bulb. No evidence of a hemodynamically significant stenosis. 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 Patient reported diplopia prior to admission. Patient had gone to his chronic pain management physician. He noted diplopia. He was sent to the ER for further evaluation. By the time the patient arrived to the ER symptoms had resolved. CT head unremarkable. Patient was admitted for observation. Hospital Course: Patient presented with diplopia. By the time the patient arrived to the ER symptoms had resolved. Patient was monitored overnight. Patient had no further diplopia. TIA was suspected. CT head unremarkable. MRI unremarkable. MRA of brain unremarkable. MRA of neck showed some less than 50% carotid stenosis. Carotid Doppler showed no significant stenosis. Lab unremarkable. LDL 42. Patient stable for discharge. At discharge patient will continue with aspirin 81 mg daily, Plavix 25 mg daily, lovastatin 20 mg daily, folic acid 1 mg daily, hydrochlorothiazide 25 mg daily, and losartan 100 mg daily. Recommend to monitor for any further changes. Recommend follow-up with neurology in 1 to 2 weeks to follow-up his hospitalization. We will also recommend that the patient see ophthalmology to further evaluate. Recommend follow-up with PCP in 1 week to follow-up this hospitalization. Patient with diabetes mellitus type 2. This is well controlled. Hemoglobin A1c 6.5. At discharge patient will continue with his current medication of metformin 500 mg 1 pill 3 times a day. Recommend to maintain blood sugar less than 140 fasting and less than 200 after meals. Further adjustment can be done by his PCP. Recommend to recheck hemoglobin A1c every 3 to 6 months to monitor his progress. Patient with hypertension. Overall stable. At discharge patient will continue with hydrochlorothiazide 25 mg daily, losartan 100 mg daily. Recommend to maintain blood pressure less than 130/80. Further adjustment can be done by his PCP. Patient with hyperlipidemia. At discharge patient will continue with his current medication lovastatin 20 mg daily. LDL stable at 42. Patient with BPH. At discharge patient will continue with his current medication of Flomax 0.4 mg daily and finasteride 5 mg daily. Patient with hypothyroidism. At discharge patient will continue with levothyroxine 75 mcg daily. TSH within normal range. Patient with history of PVD. At discharge patient will continue with aspirin and Plavix as directed. Patient with chronic pain. At discharge patient will continue with chronic pain management. Vital Signs/Physical Exam: Temp Pulse Resp BP Pulse Ox 98 F 60 24 H 124/85 98 05/01/21 04:00 05/01/21 04:00 05/01/21 04:00 05/01/21 04:00 05/01/21 04:00 General: Alert, In no apparent distress, Oriented x3, Cooperative HEENT: Atraumatic, PERRLA, EOMI Neck: Supple Respiratory: Clear to auscultation bilaterally, Normal air movement Cardiovascular: Normal pulses, Regular rate/rhythm Gastrointestinal: Normal bowel sounds, No tenderness, No masses, No rebound, No guarding Musculoskeletal: No erythema, No tenderness, No warmth Integumentary: No tenderness/swelling Neurological: Normal speech, Normal strength at 5/5 x4 extr, Normal tone, Normal affect Laboratory Data at Discharge: WBC 5.30 K/uL (4.3-10.9) D 05/01/21 03:15 Hgb 13.4 g/dL (13.6-17.9) L 05/01/21 03:15 Hct 39.6 % (39.6-49.0) 05/01/21 03:15 Plt Count 210 K/uL (152-406) 05/01/21 03:15 PT 12.1 SECONDS (9.5-12.5) 04/30/21 18:27 INR 1.05 04/30/21 18:27 Sodium 141 mmol/L (136-145) 05/01/21 03:15 Potassium 4.0 mmol/L (3.5-5.1) 05/01/21 03:15 BUN 13 mg/dL (7-18) 05/01/21 03:15 Creatinine 1.00 mg/dL (0.55-1.3) 05/01/21 03:15 Glucose 107 mg/dL (74-106) H 05/01/21 03:15 Magnesium 2.0 mg/dL (1.8-2.4) 04/30/21 18:27 Total Bilirubin 0.4 mg/dL (0.2-1.0) 05/01/21 03:15 AST 16 U/L (15-37) 05/01/21 03:15 ALT 27 U/L (12-78) 05/01/21 03:15 Alkaline Phosphatase 70 U/L (45-117) 05/01/21 03:15 Troponin I < 0.02 ng/mL (0.0-0.045) 05/01/21 03:15 Triglycerides 133 mg/dL (<150) 05/01/21 03:15 Cholesterol 105 mg/dL (<200) 05/01/21 03:15 HDL Cholesterol 36 mg/dL (40-60) L 05/01/21 03:15 Cholesterol/HDL Ratio 2.92 05/01/21 03:15 Home Medications: Aspirin [Aspirin EC] 81 mg PO DAILY 12/21/20 Cholecalciferol (Vitamin D3) [Vitamin D3] 2,000 unit PO DAILY 12/21/20 Clopidogrel Bisulfate [Plavix*] 75 mg PO DAILY 12/21/20 Finasteride 5 mg PO DAILY 12/21/20 Levothyroxine Sodium [Levothyroxine] 75 mcg PO DAILY 12/21/20 Losartan Potassium 100 mg PO DAILY 12/21/20 Lovastatin 20 mg PO DAILY 12/21/20 Metformin HCl [Metformin ER Gastric] 500 mg PO TID 12/21/20 Tamsulosin [Flomax*] 0.4 mg PO DAILY 12/21/20 Folic Acid 1 mg PO DAILY #90 tablet 05/01/21 New Medications: Folic Acid 1 mg PO DAILY #90 tablet Physician Discharge Instructions: Patient presented with diplopia. By the time the patient arrived to the ER symptoms had resolved. Patient was monitored overnight. Patient had no further diplopia. TIA was suspected. CT head unremarkable. MRI unremarkable. MRA of brain unremarkable. MRA of neck showed some less than 50% carotid stenosis. Carotid Doppler showed no significant stenosis. Lab unremarkable. LDL 42. Patient stable for discharge. At discharge patient will continue with aspirin 81 mg daily, Plavix 25 mg daily, lovastatin 20 mg daily, folic acid 1 mg daily, hydrochlorothiazide 25 mg daily, and losartan 100 mg daily. Recommend to monitor for any further changes. Recommend follow-up with neurology in 1 to 2 weeks to follow-up his hospitalization. We will also recommend that the patient see ophthalmology to further evaluate. Recommend follow-up with PCP in 1 week to follow-up this hospitalization. Patient with diabetes mellitus type 2. This is well controlled. Hemoglobin A1c 6.5. At discharge patient will continue with his current medication of metformin 500 mg 1 pill 3 times a day. Recommend to maintain blood sugar less than 140 fasting and less than 200 after meals. Further adjustment can be done by his PCP. Recommend to recheck hemoglobin A1c every 3 to 6 months to monitor his progress. Patient with hypertension. Overall stable. At discharge patient will continue with hydrochlorothiazide 25 mg daily, losartan 100 mg daily. Recommend to maintain blood pressure less than 130/80. Further adjustment can be done by his PCP. Patient with hyperlipidemia. At discharge patient will continue with his curr ent medication lovastatin 20 mg daily. LDL stable at 42. Patient with BPH. At discharge patient will continue with his current medication of Flomax 0.4 mg daily and finasteride 5 mg daily. Patient with hypothyroidism. At discharge patient will continue with levothyroxine 75 mcg daily. TSH within normal range. Patient with history of PVD. At discharge patient will continue with aspirin and Plavix as directed. Patient with chronic pain. At discharge patient will continue with chronic pain management. Diet: AHA Activity: Fall precautions Followup: Regina Hodges NP [Primary Care Provider] - Time spent managing pt's care (in minutes): 55
[2021-05-01] MEDS ORDERED: IPRATROPIUM BROM 0.5MG/2.5ML NEB PRN (06:46)
[2021-05-01] MEDS ORDERED: ALBUTEROL 2.5 MG/3 ML NEB SOL NEB PRN (06:46)
[2021-05-01] MEDS ORDERED: METHYLPREDNISOLONE 40 MG INJ IV ONE (06:47)
[2021-05-01] MEDS: INSULIN -REGULAR HUMAN 50 UNIT/0.5 ML ML SQ SCH (07:30)
[2021-05-01] MEDS ORDERED: ARFORMOTEROL TARTRATE 15 MCG/2 ML VIAL.NEB NEB SCH (08:00)
--- NOTE | 2021-05-01 08:54 | RAD REPORT ---
EXAM DESCRIPTION: MRI - Brain W/Wo Cont - 05/01/2021 8:27 am CLINICAL HISTORY: DIPLOPIA Headache, drowsiness COMPARISON: MRA Head Wo Cont dated 05/01/2021 TECHNIQUE: Multi-sequence, multiplanar MR imaging of the brain was performed with contrast. FINDINGS: No intracranial hemorrhage, hydrocephalus, or extra-axial fluid collection.Small areas of T2 and FLAIR hyperintensity are seen most compatible with mild chronic microvascular ischemic changes . No edema or shift of midline structures. No intracranial mass. DWI is negative for acute CVA. The midline structures are normally formed. 9 mm polyp or mucous retention cyst inferior left maxilla ry antrum. The paranasal sinuses and mastoids are otherwise clear. Post-contrast images show no abnormal enhancement to suggest tumor or infection. IMPRESSION: Negative for acute CVA or other acute intracranial process. No pathologic post-contrast enhancement suspected.
[2021-05-01] MEDS ORDERED: ASPIRIN EC 81 MG TAB PO SCH (09:00)
[2021-05-01] MEDS ORDERED: predniSONE 20 MG TAB PO SCH (09:00)
[2021-05-01] MEDS ORDERED: CLOPIDOGREL 75 MG TABLET PO SCH (09:00)
[2021-05-01] MEDS ORDERED: FOLIC ACID 1 MG TABLET PO SCH (09:00)
[2021-05-01] MEDS ORDERED: ENOXAPARIN 40 MG/0.4 ML SQ SCH (09:00)
[2021-05-01] MEDS ORDERED: CLOPIDOGREL 75 MG TABLET ONE (09:35)
[2021-05-01] MEDS ORDERED: ENOXAPARIN 40 MG/0.4 ML SQ ONE (09:36)
[2021-05-01 09:57] VITALS: BP 130/87
--- NOTE | 2021-05-01 09:57 | RAD REPORT ---
EXAM DESCRIPTION: MRI - MRA Head Wo Cont - 05/01/2021 8:26 am CLINICAL HISTORY: diplopia CVA COMPARISON: Head Brain Wo Cont dated 04/30/2021 FINDINGS: 3D noncontrast [id number] MR angiography of the [place] was performed. No aneurysm, flow-limiting stenosis or vascular malformation is seen. Forward flow seen in codominant vertebral arteries. The visualized dural venous sinuses appear patent. IMPRESSION: No significant flow abnormality of the [place] is identified.
--- NOTE | 2021-05-01 10:07 | RAD REPORT ---
EXAM DESCRIPTION: US - CP - 05/01/2021 9:28 am CLINICAL HISTORY: diplopia Headache, drowsiness COMPARISON: Soft Tissue Neck W/O Cont dated 04/21/2021 TECHNIQUE: Real-time sonographic evaluation of both carotid systems was performed. Doppler interroga tion was performed with waveform tracing bilaterally. FINDINGS: Normal high resistance waveforms are noted in both external carotid arteries. The common c arotid arteries and internal carotid arteries show normal low resistance waveforms. Mild focal hard plaque is seen right carotid bulb. Peak systolic and end diastolic velocity values an d the ICA/CCA ratios are in the non-hemodynamically significant range. Antegrade flow seen in both vertebral arteries. IMPRESSION: Mild focal hard plaque is seen right carotid bulb. No evidence of a hemodynamically significant stenosis.
--- NOTE | 2021-05-01 10:12 | RAD REPORT ---
EXAM DESCRIPTION: MRI - MRA Neck W/Wo Cont - 05/01/2021 8:27 am CLINICAL HISTORY: DIPLOPIA Headache, drowsiness COMPARISON: Soft Tissue Neck W/O Cont dated 04/21/2021; Carotid Artery Bilateral dated 05/01/2021 FINDINGS: Contrast enhance 2D [id number] MR angiography of the neck vessels was performed. A left aortic arch is noted. Both common carotid arteries and subclavian arteries are widely patent. No evidence of right internal carotid artery stenosis. The left carotid bulb is mildly narrowed steno sis estimated at 50% or less based on NASCET criteria. Forward flow is seen in the vertebral arteries. IMPRESSION: Less than 50% narrowing of the left carotid bulb is seen.
--- NOTE | 2021-05-01 11:54 | RAD REPORT ---
EXAM DESCRIPTION: RAD - Chest Pa And Lat (2 Views) - 05/01/2021 11:49 am CLINICAL HISTORY: COPD Chest pain. COMPARISON: Chest Single View dated 04/30/2021; Chest Single View dated 12/20/2020; Chest Single View d ated 09/20/2020; Chest Pa And Lat (2 Views) dated 01/28/2017 FINDINGS: The lungs are clear. The heart is normal in size. No displaced fractures. IMPRESSION: No acute or concerning finding suspected.
[2021-05-02] MEDS ORDERED: LEVOTHYROXINE SOD 0.075 MG TAB PO SCH (06:30)
[2021-05-02] MEDS ORDERED: LOSARTAN POTASSIUM 50 MG TABLET PO SCH (09:00)
[2021-05-02] MEDS ORDERED: FINASTERIDE 5 MG TAB PO SCH (09:00)
[2021-05-02] MEDS ORDERED: hydroCHLOROthiazide 25 MG TAB PO SCH (09:00)
[2021-05-02] MEDS ORDERED: TAMSULOSIN 0.4 MG SR CAP PO SCH (09:00)
== END 2021-05-01 11:55 | disposition home or self-care (01) ==
LOC: ER 14:55 → ERHOLD 19:12
PROVIDERS: ADMIT Family Medicine; ATTEND Family Medicine
DX: H53.2 Diplopia (principal); E11.65 Type 2 diabetes mellitus with hyperglycemia; I10 Essential (primary) hypertension; E78.5 Hyperlipidemia, unspecified; N40.0 Benign prostatic hyperplasia without lower urinary tract symptoms; I73.9 Peripheral vascular disease, unspecified; E03.9 Hypothyroidism, unspecified; G89.29 Other chronic pain; R07.9 Chest pain, unspecified; Z20.822 Contact with and (suspected) exposure to COVID-19; Z79.82 Long term (current) use of aspirin; Z79.02 Long term (current) use of antithrombotics/antiplatelets; Z87.828 Personal history of other (healed) physical injury and trauma; Z89.511 Acquired absence of right leg below knee; Z82.49 Family history of ischemic heart disease and other diseases of the circulatory system; Z80.9 Family history of malignant neoplasm, unspecified
CPT/HCPCS: 93005; 85025 ×2; 80048; 36415; 83735; 85610; 80061; 82947 ×2; 80076; 84443; 81003 ×2; 83036; 84484 ×3; 84439; 80053; 83880; 70450; 71045; 71046; 93880; 70553; 70544; 70549; 97161; 99284; U0003; A9577; J1650; J7030; G0378 ×3; J7605

== ENCOUNTER 2021-06-28 16:18 | Emergency (ER) | payer OTHER ==
[2021-06-28 18:23] LABS: SARS-COV-2 RT PCR POSITIVE (NEGATIVE)
[2021-06-28] MEDS ORDERED: ACETAMINOPHEN 500 MG TAB ONE (18:33)
--- NOTE | 2021-06-28 18:36 | ER ---
Nurse's Notes [facility] Name: Moshe Ewing Age: 60 yrs Sex: Male : 1960 Arrival Date: 06/28/2021 Time: 16:21 Bed 25 Private MD: Regina Hodges Diagnosis: Coronavirus infection, unspecified Presentation: 06/28 16:23 Chief complaint: Malaise, generalized weakness, body aches, cough, N/D, and subjective hb fever x 2 days. Coronavirus screen: Client presents with at least one sign or symptom that may indicate coronavirus-19. Standard/surgical mask placed on the client. Provider contacted for isolation considerations. Ebola Screen: No symptoms or risks identified at this time. Risk Assessment: Do you want to hurt yourself or someone else? Patient reports no desire to harm self or others. Onset of symptoms was June 27, 2021. 16:23 Method Of Arrival: Ambulatory hb 16:23 Acuity: MYRIAM 3 hb 20:06 Initial Sepsis Screen: Does the patient meet any 2 criteria? No. Patient's initial sj1 sepsis screen is negative. Does the patient have a suspected source of infection? Yes: Productive cough/pneumonia. Triage Assessment: 16:30 General: Appears in no apparent distress. comfortable, Behavior is cooperative, bp appropriate for age, anxious. Pain: Denies pain. EENT: No deficits noted. Neuro: No deficits noted. Cardiovascular: No deficits noted. Respiratory: Airway is patent Respiratory effort is even, unlabored, Respiratory pattern is regular, symmetrical. GI: Reports diarrhea. : No signs and/or symptoms were reported regarding the genitourinary system. Derm: No deficits noted. Musculoskeletal: No deficits noted. Historical: - Allergies: 16:25 No Known Allergies; hb - PMHx: 16:25 Diabetes - NIDDM; Hypertension; DVT; hb - PSHx: 16:25 foot/shoulder SX; back sx; Cholecystectomy; L hand SX with plates placed; stimulator R hb back for legs; - Immunization history:: Client reports having NOT received the Covid vaccine. Flu vaccine is not up to date. - Social history:: Smoking status: Patient denies any tobacco usage or history of. Screenin:30 Abuse screen: Denies threats or abuse. Denies injuries from another. Nutritional bp screening: No deficits noted. Tuberculosis screening: No symptoms or risk factors identified. Fall Risk None identified. Assessment: 16:30 General: SEE TRIAGE NOTE. bp 18:40 Reassessment: D/C ON HOLD FOR REGEN-COV INFUSION. REGEN-COV READY AT 1910. bp Vital Signs: 16:23 BP 164 / 98; Pulse 101; Resp 20; Temp 99.8; Pulse Ox 99% on R/A; Weight 95.25 kg; hb Height 5 ft. 9 in. (175.26 cm); Pain 8/10; 18:00 BP 170 / 13; Pulse 83; Resp 17; Pulse Ox 97% ; bp 18:52 BP 173 / 106; Pulse 82; Resp 17; Pulse Ox 99% ; bp 20:08 BP 159 / 95; Pulse 81; Resp 16; Temp 98.3(O); Pulse Ox 96% on R/A; Pain 0/10; sj1 21:35 BP 167 / 93; Pulse 89; Resp 16; Temp 98.1(O); Pulse Ox 97% on R/A; Pain 0/10; bc5 16:23 Body Mass Index 31.01 (95.25 kg, 175.26 cm) hb ED Course: 16:21 Patient arrived in ED. mr 16:22 Regina Hodges is Private Physician. mr 16:25 Triage completed. hb 16:25 Arm band placed on. hb 16:26 Sp Stewart, FANNY is Primary Nurse. bp 16:34 Davie Coe NP is PHCP. pm1 16:34 Dada Moffett MD is Attending Physician. pm1 18:26 Flu Sent. bp 18:30 Patient has correct armband on for positive identification. Bed in low position. Call bp light in reach. Side rails up X2. 18:40 Inserted saline lock: 22 gauge in left hand, using aseptic technique. bp 20:06 No provider procedures requiring assistance completed. sj1 21:34 IV discontinued, intact, bleeding controlled, No redness/swelling at site. Pressure bc5 dressing applied. Administered Medications: 18:11 Drug: Tylenol 1000 mg Route: PO; ch5 18:26 Follow up: Response: No adverse reaction bp 19:17 Drug: REGEN-COV Dose Pack 120 mg/mL-120 mg/mL (EUA) 600 mg Route: IV; Rate: calculated sj1 rate; Site: left hand; 20:30 Follow up: Response: No adverse reaction; IV Intake: 100ml sj1 21:34 Follow up: Response: No adverse reaction; IV Status: Completed infusion bc5 Intake: 20:30 IV: 100ml; Total: 100ml. sj1 Outcome: 18:36 Discharge ordered by MD. pm1 21:34 Condition: good [facility] 21:34 Discharge instructions given to patient, Instructed on discharge instructions, follow up and referral plans. 21:34 Admitted to [facility] 21:36 Patient left the ED. [facility] Signatures: Stephenie Pino mr CoeDavie, BICYCLE MESSENGER BICYCLE MESSENGER pm1 Mary Alexandra, RN RN hb Sp Stewart RN RN bp Stan Norris, FANNY RN ch5 Marleni Guardado RN RN bc5 Sandra Lee RN RN sj1
--- NOTE | 2021-06-28 18:36 | EDPHYS ---
Physician Documentation [facility] Name: Moshe Ewing Age: 60 yrs Sex: Male : 1960 Arrival Date: 06/28/2021 Time: 16:21 Bed 25 Private MD: Regina Hogdes ED Physician Dada Moffett HPI: 06/28 16:46 This 60 yrs old Male presents to ER via Ambulatory with complaints of Body pm1 Aches, Cough. 16:46 The patient or guardian reports cough, with no sputum. Onset: The symptoms/episode pm1 began/occurred 2 day(s) ago. Severity of symptoms: in the emergency department the symptoms are actually worse. Modifying factors: The symptoms are alleviated by nothing, the symptoms are aggravated by nothing. Associated signs and symptoms: Pertinent positives: diarrhea, fever, Body aches, Pertinent negatives: nausea, vomiting. The patient has been recently seen at an urgent care, for similar complaints, Tested negative for Covid 2 days ago on day of onset of symptoms. Patient present in the ER with his who has similar symptoms. Historical: - Allergies: 16:25 No Known Allergies; hb - PMHx: 16:25 Diabetes - NIDDM; Hypertension; DVT; hb - PSHx: 16:25 foot/shoulder SX; back sx; Cholecystectomy; L hand SX with plates placed; stimulator R hb back for legs; - Immunization history:: Client reports having NOT received the Covid vaccine. Flu vaccine is not up to date. - Social history:: Smoking status: Patient denies any tobacco usage or history of. ROS: 16:46 Cardiovascular: Negative for chest pain, palpitations, and edema. pm1 16:46 Back: Negative for injury and pain, MS/Extremity: Negative for injury and deformity, Skin: Negative for injury, rash, and discoloration, Neuro: Negative for headache, weakness, numbness, tingling, and seizure. 16:46 Constitutional: Positive for body aches, fever. 16:46 Cardiovascular: Negative for chest pain, edema. 16:46 Respiratory: Positive for cough, Negative for shortness of breath. 16:46 Abdomen/GI: Positive for diarrhea, Negative for abdominal pain, nausea and vomiting. 16:46 All other systems are negative. Exam: 16:46 Constitutional: This is a well developed, well nourished patient who is awake, alert, pm1 and in no acute distress. Head/Face: Normocephalic, atraumatic. Skin: Warm, dry with normal turgor. Normal color with no rashes, no lesions, and no evidence of cellulitis. MS/ Extremity: Pulses equal, no cyanosis. Neurovascular intact. Full, normal range of motion. 16:46 Eyes: Exam is negative for acute changes, Extraocular movements: no acute changes, Sclera: no acute changes, icterus, is not appreciated. 16:46 ENT: Exam is negative for acute changes, Mouth: no acute changes, Lips: normal, moist, Oral mucosa: normal, pink and intact, moist. 16:46 Respiratory: Exam negative for acute changes, the patient does not display signs of respiratory distress, Respirations: normal, Breath sounds: are clear throughout. 16:46 Abdomen/GI: Inspection: obese Palpation: abdomen is soft and non-tender, in all quadrants. 16:46 Musculoskeletal/extremity: Exam is negative for acute changes, Right BKA. 16:46 Neuro: Exam negative for acute changes, Orientation: is normal, Mentation: is normal, Motor: is normal, moves all fours. Vital Signs: 16:23 BP 164 / 98; Pulse 101; Resp 20; Temp 99.8; Pulse Ox 99% on R/A; Weight 95.25 kg; hb Height 5 ft. 9 in. (175.26 cm); Pain 8/10; 18:00 BP 170 / 13; Pulse 83; Resp 17; Pulse Ox 97% ; bp 18:52 BP 173 / 106; Pulse 82; Resp 17; Pulse Ox 99% ; bp 20:08 BP 159 / 95; Pulse 81; Resp 16; Temp 98.3(O); Pulse Ox 96% on R/A; Pain 0/10; sj1 21:35 BP 167 / 93; Pulse 89; Resp 16; Temp 98.1(O); Pulse Ox 97% on R/A; Pain 0/10; bc5 16:23 Body Mass Index 31.01 (95.25 kg, 175.26 cm) hb MDM: 16:34 Patient medically screened. pm1 16:50 Data reviewed: vital signs. Data interpreted: Pulse oximetry: on room air is 99 %. pm1 Interpretation: normal. 18:25 Counseling: I had a detailed discussion with the patient and/or guardian regarding: the pm1 historical points, exam findings, and any diagnostic results supporting the discharge/admit diagnosis, lab results, the need for outpatient follow up, to return to the emergency department if symptoms worsen or persist or if there are any questions or concerns that arise at home. 06/28 16:40 Order name: Flu pm1 06/28 16:40 Order name: Strep; Complete Time: 17:53 pm1 06/28 17:52 Order name: Throat Culture EDMS 06/28 18:24 Order name: COVID-19/FLU A+B; Complete Time: 18:25 EDMS 06/28 16:40 Order name: Droplet/Contact Precautions; Complete Time: 16:46 pm1 06/28 16:40 Order name: Labs collected and sent; Complete Time: 16:46 pm1 06/28 16:40 Order name: O2 Per Protocol; Complete Time: 16:46 pm1 Administered Medications: 18:11 Drug: Tylenol 1000 mg Route: PO; ch5 18:26 Follow up: Response: No adverse reaction bp 19:17 Drug: REGEN-COV Dose Pack 120 mg/mL-120 mg/mL (EUA) 600 mg Route: IV; Rate: calculated sj1 rate; Site: left hand; 20:30 Follow up: Response: No adverse reaction; IV Intake: 100ml sj1 21:34 Follow up: Response: No adverse reaction; IV Status: Completed infusion bc5 Disposition Summary: 06/28/21 18:36 Discharge Ordered Location: Home pm1 Problem: new pm1 Symptoms: have improved pm1 Condition: Stable pm1 Diagnosis - Coronavirus infection, unspecified pm1 Followup: pm1 - With: Emergency Department - When: As needed - Reason: Worsening of condition Followup: pm1 - With: Private Physician - When: 2 - 3 days - Reason: Recheck today's complaints, Continuance of care, Re-evaluation by your physician Discharge Instructions: - Discharge Summary Sheet pm1 - COVID-19 pm1 - COVID-19 Frequently Asked Questions pm1 - 10 Things You Can Do to Manage Your COVID-19 Symptoms at Home - [facility] pm1 - COVID-19: Quarantine vs. Isolation - [facility] pm1 Forms: - Medication Reconciliation Form pm1 - Thank You Letter pm1 - Antibiotic Education pm1 - Prescription Opioid Use pm1 Addendum: 07/03/2021 03:02 Co-signature as Attending Physician, Dada Moffett MD. m a2 Signatures: Dispatcher [employer] EDMS Davie Coe, ENGINE BUILDUP MECHANIC ENGINE BUILDUP MECHANIC pm1 Mary Alexandra, RN RN Dada Moffett MD MD ma2 Stan Norris RN RN ch5 Sandra Lee RN RN 1 Sp Stewart RN Marleni Guardado RN bc5 Corrections: (The following items were deleted from the chart) 06/28 17:24 16:40 CORONAVIRUS+MR.LAB.BRZ ordered. EDMS EDMS 17:32 16:40 Influenza Screen (A ordered. EDMS EDMS
[2021-06-28] MEDS ORDERED: CASIRIVIMAB/IMDEVIMAB 10 ML VIAL ONE (19:05)
[2021-06-28] MEDS ORDERED: NA CHLORIDE 0.9% 250 ML ONE (19:05)
[2021-06-28 21:47] VITALS: BP 167/93; TEMP 98.1; O2SAT 97
== END 2021-06-28 21:36 | disposition home or self-care (01) ==
LOC: ER 16:18
DX: U07.1 COVID-19 (principal); I10 Essential (primary) hypertension; E11.9 Type 2 diabetes mellitus without complications
CPT/HCPCS: 96365; 87070; 87081; 0240U; 99285; 96366; J7050

== ENCOUNTER 2021-07-11 09:32 | Emergency (ER) | payer OTHER ==
--- NOTE | 2021-07-11 09:57 | ER ---
Nurse's Notes [facility] Name: Moshe Ewing Age: 60 yrs Sex: Male : 1960 Arrival Date: 07/11/2021 Time: 09:36 Bed Waiting Private MD: Diagnosis: Encounter for screening, unspecified Presentation: 07/11 09:47 Chief complaint: Patient states: Covid + on 06/28/2021. Coronavirus screen: Client jl7 reports previous positive COVID test result. Date of collection: June 28, 2021. Ebola Screen: No symptoms or risks identified at this time. Initial Sepsis Screen: Does the patient meet any 2 criteria? No. Patient's initial sepsis screen is negative. Does the patient have a suspected source of infection? No. Patient's initial sepsis screen is negative. Risk Assessment: Do you want to hurt yourself or someone else? Patient reports no desire to harm self or others. Onset of symptoms was June 22, 2021. 09:47 Method Of Arrival: Ambulatory [facility] 09:47 Acuity: MYRIAM 4 jl7 Historical: - Allergies: 09:50 No Known Allergies; jl7 - PMHx: 09:50 Diabetes - NIDDM; DVT; Hypertension; Hypothyroidism; Hypercholesterolemia; jl7 - PSHx: 09:50 back sx; Cholecystectomy; foot/shoulder SX; L hand SX with plates placed; stimulator R jl7 back for legs; - Immunization history:: Adult Immunizations unknown. - Social history:: Smoking status: Patient denies any tobacco usage or history of. Screenin:52 Abuse screen: Denies threats or abuse. Denies injuries from another. Nutritional jl7 screening: No deficits noted. Tuberculosis screening: No symptoms or risk factors identified. Fall Risk None identified. Assessment: 09:45 Reassessment: ZENOBIA Horn in triage assessing pt. [facility] Vital Signs: 09:47 BP 159 / 94; Pulse 83; Resp 15; Temp 97; Pulse Ox 96% ; Weight 95.25 kg; Height 5 ft. 9 jl7 in. (175.26 cm); 09:47 Body Mass Index 31.01 (95.25 kg, 175.26 cm) jl7 ED Course: 09:36 Patient arrived in ED. as 09:37 [facility] kb 09:37 Alejo Barker MD is Attending Physician. kb 09:50 Triage completed. jl7 09:50 Arm band placed on right wrist. jl7 09:52 Patient has correct armband on for positive identification. jl7 09:52 No provider procedures requiring assistance completed. Patient did not have IV access jl7 during this emergency room visit. Administered Medications: No medications were administered Outcome: 09:56 Discharge ordered by . kb 09:57 Medical screen evaluation completed per provider. jl7 09:57 Patient left the ED. jl7 Signatures: Justina Oakes, PHYSICIAN-C PHYSICIAN-Ckb Cori Harper Jahala, RN RN jl7 Corrections: (The following items were deleted from the chart) 09:57 09:52 Medical screen evaluation completed per provider. jl7 jl7
--- NOTE | 2021-07-11 09:57 | EDPHYS ---
Physician Documentation [facility] Name: Moshe Ewing Age: 60 yrs Sex: Male : 1960 Arrival Date: 07/11/2021 Time: 09:36 Bed Waiting Private MD: ED Physician Alejo Barker HPI: 07/11 09:53 This 60 yrs old Male presents to ER via Ambulatory with complaints of covid kb retest. 09:53 Pt reports he tested positive for COVID on 06/28/21 and wants to get retested to see if kb he still has it. Pt is asymptomatic. The patient has not experienced similar symptoms in the past. The patient has not recently seen a physician. Historical: - Allergies: 09:50 No Known Allergies; jl7 - PMHx: 09:50 Diabetes - NIDDM; DVT; Hypertension; Hypothyroidism; Hypercholesterolemia; jl7 - PSHx: 09:50 back sx; Cholecystectomy; foot/shoulder SX; L hand SX with plates placed; stimulator R jl7 back for legs; - Immunization history:: Adult Immunizations unknown. - Social history:: Smoking status: Patient denies any tobacco usage or history of. ROS: 09:52 Constitutional: Negative for fever, chills, and weight loss. kb 09:52 All other systems are negative. Exam: 09:52 Constitutional: This is a well developed, well nourished patient who is awake, alert, kb and in no acute distress. Head/Face: Normocephalic, atraumatic. ENT: Moist Mucous membranes Cardiovascular: Regular rate and rhythm with a normal S1 and S2. No gallops, murmurs, or rubs. No pulse deficits. Respiratory: Respirations even and unlabored. No increased work of breathing, no retractions or nasal flaring. Skin: Warm, dry with normal turgor. Normal color. MS/ Extremity: Pulses equal, no cyanosis. Neurovascular intact. Full, normal range of motion. Neuro: Awake and alert, GCS 15, oriented to person, place, time, and situation. Moves all extremities. Normal gait. Psych: Awake, alert, with orientation to person, place and time. Behavior, mood, and affect are within normal limits. Vital Signs: 09:47 BP 159 / 94; Pulse 83; Resp 15; Temp 97; Pulse Ox 96% ; Weight 95.25 kg; Height 5 ft. 9 jl7 in. (175.26 cm); 09:47 Body Mass Index 31.01 (95.25 kg, 175.26 cm) jl7 MDM: 09:45 Patient medically screened. kb 09:51 Data reviewed: vital signs, nurses notes. Data interpreted: Pulse oximetry: on room air kb is 96 %. Interpretation: normal. Counseling: I had a detailed discussion with the patient and/or guardian regarding: the historical points, exam findings, and any diagnostic results supporting the discharge/admit diagnosis, the need for outpatient follow up, a family practitioner, to return to the emergency department if symptoms worsen or persist or if there are any questions or concerns that arise at home. Medical screen evaluation completed. EMTALA emergency medical condition absent. Administered Medications: No medications were administered Disposition: 09:51 Encounter for repeat COVID test - asymptomatic. kb 13:09 Co-signature as Attending Physician, Alejo Barker MD I agree with the assessment and kdr plan of care. Disposition Summary: 07/11/21 09:56 Discharge Ordered Location: Home kb Condition: Stable kb Diagnosis - Encounter for screening, unspecified kb Followup: kb - With: Emergency Department - When: As needed - Reason: Worsening of condition Followup: kb - With: Private Physician - When: 2 - 3 days - Reason: Recheck today's complaints, Continuance of care, Re-evaluation by your physician Forms: - Medication Reconciliation Form kb - Thank You Letter kb - Antibiotic Education kb - Prescription Opioid Use kb Signatures: Justina Oakes, CHET-C PERSONAL FINANCIAL PLANNER-Alejo West MD MD kdr Leal, Jahala, RN RN jl7
[2021-07-11 10:01] VITALS: BP 159/94; TEMP 97; O2SAT 96
== END 2021-07-11 09:57 | disposition home or self-care (01) ==
LOC: ER 09:32
DX: Z20.822 Contact with and (suspected) exposure to COVID-19 (principal)
CPT/HCPCS: 99281

== ENCOUNTER 2021-09-18 23:17 | Emergency (ER) | payer OTHER ==
--- OUTSIDE RECORDS SUMMARY | 2021-09-18 23:22 | XMS REPORT | Continuity of Care Document ---
:1960 Author Organization [facility] t Address [address] [place] [address] Care Team Providers Name Role Phone Kimber Hodges Primary Care Physician NICHELLE BAH Attending Clinician Unavailable Nichelle Bah MD Attending Clinician Only, Test Attending Clinician Unavailable Doctor Unassigned, Name Attending Clinician Unavailable Janell Bright Attending Clinician Meño CROWE, L Attending Clinician PETRA NASH Attending Clinician Unavailable Caridad Attending Clinician Unavailable NICHELLE BAH Admitting Clinician Unavailable Nichelle Bah MD Admitting Clinician Caridad Admitting Clinician Unavailable Payers Payer Name Policy Type Policy Number Effective Date Expiration Date Janell de la garzazan JEANNETTE/[facility] DUAL [id number] 2020 COMP HMO D SNP 00:00:00 [place] [id number] 2020 00:00:00 [facility] [id number] Problems Condition Condition Condition Status Onset Resolution Last Treating Co mments Source Name Details Category Date Date Treatment Clinician Date Other Other Disease Active 2020-09 Univers age-relate age-relate 89 [place] 00 Medical eye eye Branch Obesity Obesity Disease Active Univers (BMI (BMI 3-06 ity of 30-39.9) 30-39.9) 00:00: [place] 00 Medical Branch Left knee Left knee Disease Active Uni vers pain pain 1-10 ity of 00:00: [place] [facility] Shoulder Shoulder Disease Active Unive rs pain, pain, 5-10 [place] bilateral [place] Foot pain, Foot pain, Disease Active U nivers left left 3-09 ity of 00:00: [place] [facility] Raised Raised Problem Active [place] Prostate da specific Specific Medica l antigen Antigen Group Allergies, Adverse Reactions, Alerts Allergy Allergy Status Severity Reaction(s) Onset Inactive Treating Comm ents Source Name Type Date Date Clinician NO KNOWN Drug Active Univers ALLERGIE Class ity of S [facility] Social History Social Habit Start Date Stop Date Quantity Comments Source Exposure to Not sure [facility] SARS-CoV-2 (event) [facility] Alcohol intake 2021-08-28 2021-08-28 0 /d [facility] 00:00:00 00:00:00 [facility] Tobacco use and 2015-11-15 2015-11-15 Never used [facility] exposure 00:00:00 00:00:00 [facility] Sex [birth year] [facility] 00:00:00 00:00:00 [facility] Smoking Status Start Date Stop Date Source Never Smoker [facility] Medications Ordered Filled Start Stop Current Ordering Indication Dosage Frequency Signature Comments Components Source Medication Medication Date Date Medication? Clinician (SIG) Name Name lidocaine 2020-09- No 1mL 1 mL, Univer s (XYLOCAINE) 11-03 Topical, ity of 2 % jelly 15:00: 13:45 [place] URO-JET 1 00 :00 dose, On Medica l mL [facility] 09/02/21 at 0900, Routine, DSU Pre-op lidocaine 2020-09 No 1mL 1 mL, Univer s (XYLOCAINE) 11-03 Topical, ity of 2 % jelly 15:00: 13:45 [place]CE, [place] URO-JET 1 00 :00 dose, On Medica l mL [facility] 09/02/21 at 0900, Routine, DSU Pre-op moxifloxaci 2020-09- No PRN, Unive rs n (VIGAMOX) 11-03 Starting ity of 0.5 % 14:25: 17:22 on [facility] ophthalmic 00 :35 09/02/21 at Med ical drops 0825, Branch Until Wed09/02/21 at 1122, Routine, Intra-op DUOVISC 2020-09 Yes PRN, Univers (DUOVISC 11-03 Starting ity of VISCO 14:16: on [facility] ELASTIC) 3 00 09/02/21 at Med ical %-4 %(0.5 0816, Branch mL) 1 % Until (0.55 mL) Discontinu intraocular ed, injection Routine, Intra-op DUOVISC 2020-09- No PRN, Univers (DUOVISC 11-03 Starting ity of VISCO 14:16: 17:22 on [facility] ELASTIC) 3 00 :35 09/02/21 at [facility] ical %-4 %(0.5 0816, Branch mL) 1 % Until Tue (0.55 mL) 09/02/21 at intraocular 1122, injection Routine, Intra-op lidocaine 2020-09 Yes PRN, Univers 1% (PF) 11-03 Starting ity of (XYLOCAINE) 14:15: [place] 00 09/02/21 at [facility] 0815, Branch Until Discontinu ed, Routine, Intra-op lidocaine 2020-09- No PRN, Univers 1% (PF) 11-03 Starting ity of (XYLOCAINE) 14:15: 17:22 on [facility] as injection 00 :35 09/02/21 at [facility] 0815, Branch Until Wed09/02/21 at 1122, Routine, Intra-op EPINEPHrine 2020-09- No PRN, Unive rs 1:1,000 (1 11-03 Starting ity of mg/mL) 14:00: 17:22 on Tue [place] (ADRENALIN) 00 :35 09/02/21 at Il dical injection 0800, Branch Until Wed09/02/21 at 1122, Routine, Intra-op balanced 2020-09 Yes PRN, [facility] 11-03 Starting ity of no.2 irrig[place] 13:59: on [place] (BSS[place] 00 09/02/21 at [place] [id number], Branch solution Until Discontinu ed, Routine, Intra-op balanced 2020-09- No PRN, [facility] 11-03 Starting ity o f no.2 irrig. 13:59: 17:22 on Wed [place] (BSS) 00 :35 09/02/21 at [facility] 0759, Branch solution Until Wed09/02/21 at 1122, Routine, Intra-op cyclopent 2020-09- No .5mL 0.5 mL, Univ ers 1%-tropic 11-03 Left Eye, ity of 1%-phenyl 13:30: 13:27 ONCE, 1 [place] 2.5%-ketor 00 :00 dose, On Medic al 0.5% Branch (MYDRIATIC 09/02/21 at #5) 0730, ophthalmic Routine, solution DSU Pre-op syringe 0.5 mL cyclopent 2020-09- No .5mL 0.5 mL, Univ ers 1%-tropic 11-03 Left Eye, ity of 1%-phenyl 13:30: 13:27 ONCE, 1 [place] 2.5%-ketor 00 :00 dose, On Medic al 0.5% Branch (MYDRIATIC 09/02/21 at #5) 0730, ophthalmic Routine, solution DSU Pre-op syringe 0.5 mL lactated 2020-09- No 1000mL at 42 Unive rs ringers IV 11-03 12-07 mL/hr, ity of infusion 13:15: 13:01 1,000 mL, [place] 1,000 mL 00 :00 IV Medical Infusion, Branch ONCE, 1 dose, On Wed09/02/21 at 0715, Routine, DSU Pre-op lactated 2020-09- No 1000mL at 42 Unive rs ringers IV 2-07 12-07 mL/hr, ity of infusion 13:15: 13:01 1,000 mL, [place] 1,000 mL 00 :00 IV Medical Infusion, Branch ONCE, 1 dose, On Wed09/02/21 at 0715, Routine, DSU Pre-op pravastatin 2020-09- No 40mg Take 40 mg Univers (PRAVACHOL) 11-03 by mouth ity of 40 mg 09:17: 00:00 at [place] tablet 34 :00 bedtime. Medical Branch metFORMIN 2020-09- No 500mg Take 500 Un jovi (GLUCOPHAGE 11-03- mg by ity of ) 500 mg 09:17: 00:00 mouth 2 [place] tablet 34 :00 (two) Medical times Branch daily with meals. Levothyroxi 2020-09- No 75ug Take 75 Un jovi ne 11-03 mcg by ity of (TIROSINT) 09:17: 00:00 mouth [place] 75 mcg 34 :00 daily. Medical capsule Branch losartan 2020-09 No 100mg Take 100 Uni vers (COZAAR) 11-03- mg by ity of 100 mg 09:17: 00:00 mouth [place] tablet 34 :00 daily. Medical Branch aspirin 81 2020-09- 81mg Take 81 mg Univers mg EC 11-03 by mouth ity of tablet 09:17: 00:00 daily. [place] 34 :00 Medical Branch gabapentin 2020-09- No 300mg Take 300 U nivers (NEURONTIN) 11-03- mg by ity of 300 mg 09:17: 00:00 mouth 3 [place] capsule 34 :00 (three) Medical times Branch daily. CLOPIDOGREL 2020-09- No 75mg Take 75 mg Univers BISULFATE 11-03- by mouth ity o f (PLAVIX 09:17: 00:00 daily. [place] ORAL) 34 :00 Medical Branch methocarbam 2020-09- No 750mg Take 750 Univers ol 11-03-07 mg by ity of (ROBAXIN) 09:17: 00:00 mouth 4 [place] 750 mg 34 :00 (four) Medical tablet times Branch daily as needed. pravastatin 2020-09- No 40mg Take 40 mg Univers (PRAVACHOL) 11-03 by mouth ity of 40 mg 09:17: 00:00 at [place] tablet 34 :00 bedtime. Medical Branch metFORMIN 2020-09- No 500mg Take 500 Un jovi (GLUCOPHAGE 11-03- mg by ity of ) 500 mg 09:17: 00:00 mouth 2 [place] tablet 34 :00 (two) Medical times Branch daily with meals. Levothyroxi 2020-09- No 75ug Take 75 Un jovi ne 11-03 mcg by ity of (TIROSINT) 09:17: 00:00 mouth [place] 75 mcg 34 :00 daily. Medical capsule Branch losartan 2020-09 No 100mg Take 100 Uni vers (COZAAR) 11-03 mg by ity of 100 mg 09:17: 00:00 mouth [place] tablet 34 :00 daily. Medical Branch aspirin 81 2020-09- No 81mg Take 81 mg Univers mg EC 11-03 by mouth ity of tablet 09:17: 00:00 daily. [place] 34 :00 Medical Branch gabapentin 2020-09 No 300mg Take 300 U nivers (NEURONTIN) 11-03 mg by ity of 300 mg 09:17: 00:00 mouth 3 [place] capsule 34 :00 (three) Medical times Branch daily. CLOPIDOGREL 2020-09- No 75mg Take 75 mg Univers BISULFATE 11-03 by mouth ity o f (PLAVIX 09:17: 00:00 daily. [place] ORAL) 34 :00 Medical Branch methocarbam 2020-09 No 750mg Take 750 Univers ol 11-03 mg by ity of (ROBAXIN) 09:17: 00:00 mouth 4 [place] 750 mg 34 :00 (four) Medical tablet times Branch daily as needed. LOVASTATIN 2020-09- No Take by Un jovi ORAL 11-03 mouth. ity of 09:17: 00:00 [place] 33 :00 Medical Branch lovastatin 2020-09- No 40mg Take 40 mg Univers 40 mg 11-03 by mouth ity of tablet 09:17: 00:00 at [place] 33 :00 bedtime. Medical Branch gabapentin 2020-09- No Take by Un jovi (GRALISE) 11-03 mouth. ity of 300 mg 09:17: 00:00 [place] tablet 33 :00 Medical Branch gabapentin 2020-09- No 300mg Take 300 U nivers 300 mg 11-03- mg by ity of capsule 09:17: 00:00 mouth. [place] 33 :00 Medical Branch losartan 2020-09- No 1 (one) Unive rs 100 mg 11-03-07 time each ity of tablet 09:17: 00:00 day [place] 33 :00 Medical Branch methocarbam 2020-09- No 750mg Take 750 Univers ol 750 mg 11-03 mg by ity of tablet 09:17: 00:00 mouth. [place] 33 :00 Medical Branch pravastatin 2020-09- No 40mg Take 40 mg Univers 40 mg 11-03 by mouth. ity of tablet 09:17: 00:00 [place] 33 :00 Medical Branch LOVASTATIN 2020-09- No Take by Un jovi ORAL 11-03 mouth. ity of 09:17: 00:00 [place] 33 :00 Medical Branch lovastatin 2020-09- No 40mg Take 40 mg Univers 40 mg 11-03 by mouth ity of tablet 09:17: 00:00 at [place] 33 :00 bedtime. Medical Branch gabapentin 2020-09- No Take by Un jovi (GRALISE) 11-03- mouth. ity of 300 mg 09:17: 00:00 [place] tablet 33 :00 Medical Branch gabapentin 2020-09- No 300mg Take 300 U nivers 300 mg 11-03 mg by ity of capsule 09:17: 00:00 mouth. [place] 33 :00 Medical Branch losartan 2020-09- No 1 (one) Unive rs 100 mg 11-03-07 time each ity of tablet 09:17: 00:00 day [place] 33 :00 Medical Branch methocarbam 2020-09- No 750mg Take 750 Univers ol 750 mg 11-03-07 mg by ity of tablet 09:17: 00:00 mouth. [place] 33 :00 Medical Branch pravastatin 2020-09- No 40mg Take 40 mg Univers 40 mg 2-07 12-07 by mouth. ity of tablet 09:17: 00:00 [place] 33 :00 Medical Branch Levothyroxi 2020-09 Yes 75ug Take 75 Uni vers ne 2-02 mcg by ity of (TIROSINT) 12:25: mouth [place] 75 mcg 04 daily. Medical capsule Branch gabapentin 2020-09 Yes 300mg Take 300 Un jovi (NEURONTIN) 2-02 mg by ity of 300 mg 12:25: mouth 3 [place] capsule 04 (three) Medical times Branch daily. CLOPIDOGREL 2020-09 Yes 75mg Take 75 mg Univers BISULFATE 2-02 by mouth ity of (PLAVIX 12:25: daily. [place] ORAL) [address] [place] [address] LOVASTATIN 2020-09 Yes Take by Uni vers ORAL 2-02 mouth. ity of 12:25: [address] [place] [address] gabapentin 2020-09 Yes Take by Uni vers (GRALISE) 2-02 mouth. ity of 300 mg 12:25: [place] tablet [address] [place] [address] losartan 2020-09 Yes 1 (one) Univer s 100 mg 2-02 time each ity of tablet 12:25: day [address] [place] [address] pravastatin 2020-09 Yes 40mg Take 40 mg Univers 40 mg 2-02 by mouth. ity of tablet 12:25: [address] Levothyroxi 2020-09 Yes 75ug Take 75 Uni vers ne 2-02 mcg by ity of (TIROSINT) 12:25: mouth [place] 75 mcg 04 daily. Medical capsule Branch gabapentin 2020-09 Yes 300mg Take 300 Un jovi (NEURONTIN) 2-02 mg by ity of 300 mg 12:25: mouth 3 [place] capsule 04 (three) Medical times [place] daily. CLOPIDOGREL 2020-09 Yes 75mg Take 75 mg Univers BISULFATE 2-02 by mouth ity of (PLAVIX 12:25: daily. [place] ORAL) [address] [place] [address] LOVASTATIN 2020-09 Yes Take by Uni vers ORAL 2-02 mouth. ity of 12:25: [address] gabapentin 2020-09 Yes Take by Uni vers (GRALISE) 2-02 mouth. ity of 300 mg 12:25: [place] tablet [address] [place] [address] losartan 2020-09 Yes 1 (one) Univer s 100 mg 2-02 time each ity of tablet 12:25: day [place] 04 Medical Branch pravastatin 2020-09 Yes 40mg Take 40 mg Univers 40 mg 2-02 by mouth. ity of tablet 12:25: [place] Medical [place] pravastatin 2020-09 Yes 40mg Take 40 mg Univers (PRAVACHOL) 1-17 by mouth ity of 40 mg 13:02: at [place] tablet 40 bedtime. Medical Branch Levothyroxi 2020-09 Yes 75ug Take 75 Uni vers ne 1-17 mcg by ity of (TIROSINT) 13:02: mouth [place] 75 mcg 40 daily. Medical capsule Branch losartan 2020-09 Yes 100mg Take 100 Univ ers (COZAAR) 1-17 mg by ity of 100 mg 13:02: mouth [place] tablet 40 daily. Medical Branch aspirin 81 2020-09 Yes 81mg Take 81 mg U nivers mg EC 1-17 by mouth ity of tablet 13:02: daily. [address] gabapentin 2020-09 Yes 300mg Take 300 Un jovi (NEURONTIN) 1-17 mg by ity of 300 mg 13:02: mouth 3 [place] capsule 40 (three) Medical times Branch daily. CLOPIDOGREL 2020-09 Yes 75mg Take 75 mg Univers BISULFATE 1-17 by mouth ity of (PLAVIX 13:02: daily. [place] ORAL) [address] [place] [address] Branch gabapentin 2020-09 Yes Take by Uni vers (GRALISE) 1-17 mouth. ity of 300 mg 13:02: [place] tablet 40 Medical Branch gabapentin 2020-09 Yes 300mg Take 300 Un jovi 300 mg 1-17 mg by ity of capsule 13:02: mouth. [address] losartan 2020-09 Yes 1 (one) Univer s 100 mg 1-17 time each ity of tablet 13:02: day [address] methocarbam 2020-09 Yes 750mg Take 750 U nivers ol 750 mg 1-17 mg by ity of tablet 13:02: mouth. [address] pravastatin 2020-09 Yes 40mg Take 40 mg Univers 40 mg 1-17 by mouth. ity of tablet 13:02: [address] pravastatin 2020-09 Yes 40mg Take 40 mg Univers (PRAVACHOL) 1-17 by mouth ity of 40 mg 13:02: at [place] tablet 40 bedtime. Medical Branch losartan 2020-09 Yes 100mg Take 100 Univ ers (COZAAR) 1-17 mg by ity of 100 mg 13:02: mouth [place] tablet 40 daily. Medical Branch aspirin 81 2020-09 Yes 81mg Take 81 mg U nivers mg EC 1-17 by mouth ity of tablet 13:02: daily. [address] gabapentin 2020-09 Yes 300mg Take 300 Un jovi 300 mg 1-17 mg by ity of capsule 13:02: mouth. [address] Branch methocarbam 2020-09 Yes 750mg Take 750 U nivers ol 750 mg 1-17 mg by ity of tablet 13:02: mouth. [address] pravastatin 2020-09 Yes 40mg Take 40 mg Univers (PRAVACHOL) 1-17 by mouth ity of 40 mg 13:02: at [place] tablet 40 bedtime. Medical Branch losartan 2020-09 Yes 100mg Take 100 Univ ers (COZAAR) 1-17 mg by ity of 100 mg 13:02: mouth [place] tablet 40 daily. Medical Branch aspirin 81 2020-09 Yes 81mg Take 81 mg U nivers mg EC 1-17 by mouth ity of tablet 13:02: daily. [address] gabapentin 2020-09 Yes 300mg Take 300 Un jovi 300 mg 1-17 mg by ity of capsule 13:02: mouth. [address] methocarbam 2020-09 Yes 750mg Take 750 U nivers ol 750 mg 1-17 mg by ity of tablet 13:02: mouth. [address] cyclobenzap 2020-09 Yes [id number] 10mg Take 1 Univers rine 10 mg 1-17 tablet by ity of tablet 00:00: mouth 3 [place] 00 (three) Medical times Branch daily. cyclobenzap 2020-09 Yes [id number] 10mg Take 1 Univers rine 10 mg 1-17 tablet by ity of tablet 00:00: mouth 3 [place] 00 (three) Medical times Branch daily. cyclobenzap 2020-09 Yes [id number] 10mg Take 1 Univers rine 10 mg 1-17 tablet by ity of tablet 00:00: mouth 3 [place] 00 (three) Medical times Branch daily. cyclobenzap 2020-09- No [id number] 10mg Take 1 Univers rine 10 mg 1-17 12-07 tablet by ity of tablet 00:00: 00:00 mouth 3 [place] 00 :00 (three) Medical times Branch daily. cyclobenzap 2020-09- No [id number] 10mg Take 1 Univers rine 10 mg 1-17 12-07 tablet by ity of tablet 00:00: 00:00 mouth 3 [place] 00 :00 (three) Medical times Branch daily. diclofenac 2020-0 Yes [id number] 75mg Take 1 U nivers 75 mg EC 7-16 tablet by ity of tablet 00:00: mouth 2 [place] 00 (two) Medical times Branch daily with meals. diclofenac 2020-0 Yes [id number] 75mg Take 1 U nivers 75 mg EC 7-16 tablet by ity of tablet 00:00: mouth 2 [place] 00 (two) Medical times Branch daily with meals. diclofenac 2020-0 Yes [id number] 75mg Take 1 U nivers 75 mg EC 7-16 tablet by ity of tablet 00:00: mouth 2 [place] 00 (two) Medical times Branch daily with meals. diclofenac 2019-0 2020- No [id number] 75mg Take 1 Univers 75 mg EC 7-16 12-07 tablet by ity o f tablet 00:00: 00:00 mouth 2 [place] 00 :00 (two) Medical times Branch daily with meals. diclofenac 2020-0 2020- No [id number] 75mg Take 1 Univers 75 mg EC 7-16 12-07 tablet by ity o f tablet 00:00: 00:00 mouth 2 [place] 00 :00 (two) Medical times Branch daily with meals. ALCOHOL 2020-0 Yes Univers PREP PADS 7-15 ity of PadM 00:00: [place] 00 Medical Branch ALCOHOL 2020-0 Yes Univers PREP PADS 7-15 ity of PadM 00:00: [place] 00 Medical Branch ALCOHOL 2020-0 Yes Univers PREP PADS 7-15 ity of PadM 00:00: [place] 00 Medical Branch ALCOHOL 2020-0 202- No Univers PREP PADS 7-15 12-07 ity of PadM 00:00: 00:00 [place] 00 :00 Medical Branch ALCOHOL 2020-0 2021- No Univers PREP PADS 7-15 12-07 ity of PadM 00:00: 00:00 [place] 00 :00 Medical Branch DICLOFENAC 2020-0 Yes 75mg 75 mg. Unive rs SODIUM ORAL 6-06 ity of 00:00: [place] 00 Medical Branch DICLOFENAC 2020-0 Yes 75mg 75 mg. Unive rs SODIUM ORAL 6-06 ity of 00:00: [place] 00 Medical Branch DICLOFENAC 2020-0 Yes 75mg 75 mg. Unive rs SODIUM ORAL 03-02 ity of 00:00: [place] 00 Medical Branch DICLOFENAC 2020-0 1- No 75mg 75 mg. Univ ers SODIUM ORAL 03-02 ity of 00:00: 00:00 [place] 00 :00 Medical Branch DICLOFENAC 2020-0 1- No 75mg 75 mg. Univ ers SODIUM ORAL 03-02 ity of 00:00: 00:00 [place] 00 :00 Medical Branch tamsulosin 2020-0 Yes Univers 0.4 mg 24 5-11 ity of hr capsule 00:00: [place] 00 Medical Branch tamsulosin 2020-0 Yes Univers 0.4 mg 24 5-11 ity of hr capsule 00:00: [place] 00 Medical Branch tamsulosin 2020-0 Yes Univers 0.4 mg 24 5-11 ity of hr capsule 00:00: [place] [address] Medical Branch tamsulosin 2020-0 1- No Univer s 0.4 mg 24 5-08 08-07 ity of hr capsule 00:00: 00:00 [place] 00 :00 Medical Branch tamsulosin 2020-0 2021- No Univer s 0.4 mg 24 -08 08- ity of hr capsule 00:00: 00:00 [place] 00 :00 Medical Branch losartan 2020-0 Yes Univers 100 mg 5-05 ity of tablet 00:00: [place] 00 Medical Branch losartan 2020-0 Yes Univers 100 mg 5-05 ity of tablet 00:00: [place] 00 Medical Branch losartan 2020-0 Yes Univers 100 mg 5-05 ity of tablet 00:00: [place] 00 Medical Branch losartan 2020-0 2021- No Univers 100 mg 5-05 12-07 ity of tablet 00:00: 00:00 [place] 00 :00 Medical Branch losartan 2020-0 2021- No Univers 100 mg 5-05 12-07 ity of tablet 00:00: 00:00 [place] 00 :00 Medical Branch finasteride 2020-0 Yes Univer s 5 mg tablet 4-19 ity of 00:00: [place] [address] Medical Branch finasteride 2020-0 Yes Univer s 5 mg tablet 4-19 ity of 00:00: [place] 00 Medical Branch finasteride 2020-0 Yes Univer s 5 mg tablet 4-19 ity of 00:00: [place] 00 Medical Branch finasteride 2020-0 2020- No Unive rs 5 mg tablet 01-13 ity of 00:00: 00:00 [place] 00 :00 Medical Branch finasteride 2020-0 2020- No Unive rs 5 mg tablet 01-13 ity of 00:00: 00:00 [place] 00 :00 Medical Branch ACCU-CHEK 2020-0 Yes Univers GUIDE L1-L2 4-16 ity of CTRL PETER 00:00: [place] Sol 00 Medical Branch ACCU-CHEK 2020-0 Yes Univers GUIDE L1-L2 4-16 ity of CTRL PETER 00:00: [facility] 00 Medical Branch ACCU-CHEK 2020-0 Yes Univers GUIDE L1-L2 4-16 ity of CTRL PETER 00:00: [facility] 00 Medical Branch ACCU-CHEK 2020-0 2020- No Univers GUIDE L1-L2 4-16 12 ity of CTRL PETER 00:00: 00:00 [facility] 00 :00 Medical Branch ACCU-CHEK 2020-0 2020- No Univers GUIDE L1-L2 -16 09-02 ity of CTRL PETER 00:00: 00:00 [facility] 00 :00 Medical Branch allopurinoL 2020-0 Yes Univer s 100 mg 1-13 ity of tablet 00:00: [place] 00 Medical Branch allopurinoL 2020-0 Yes Univer s 100 mg 1-13 ity of tablet 00:00: [place] 00 Medical Branch allopurinoL 2020-0 Yes Univer s 100 mg 1-13 ity of tablet 00:00: [place] 00 Medical Branch allopurinoL 2020-0 2020- No Unive rs 100 mg 1-13 09-02 ity of tablet 00:00: 00:00 [place] 00 :00 Medical Branch allopurinoL 2020-0 2020- No Unive rs 100 mg 1-13 09-02 ity of tablet 00:00: 00:00 [place] 00 :00 Medical Branch finasteride 2019-0 Yes 5mg Take 5 mg U nivers 5 mg tablet 7-27 by mouth. ity of 00:00: [place] 00 Medical Branch finasteride 2019-0 Yes 5mg Take 5 mg U nivers 5 mg tablet 7-27 by mouth. ity of 00:00: [place] 00 Medical Branch finasteride 2019-0 Yes 5mg Take 5 mg U nivers 5 mg tablet 04-22 by mouth. ity of 00:00: [place] 00 Medical Branch finasteride 2020- No 5mg Take 5 mg Univers 5 mg tablet 04-22 by mouth. it y of 00:00: 00:00 00 :00 Medical Branch finasteride 2020- No 5mg Take 5 mg Univers 5 mg tablet 04-22 by mouth. it y of 00:00: 00:00 [place] 00 :00 Medical Branch blood sugar Yes USE 1 Unive rs diagnostic 7-22 STRIP TO ity o f (ONETOUCH 00:00: CHECK [place] ULTRA BLUE 00 GLUCOSE Medica l TEST STRIP) TWICE Branch strip DAILY blood sugar Yes USE 1 Unive rs diagnostic 7-22 STRIP TO ity o f (ONETOUCH 00:00: CHECK [place] ULTRA BLUE 00 GLUCOSE Medica l TEST STRIP) TWICE Branch strip DAILY blood sugar Yes USE 1 Unive rs diagnostic 7-22 STRIP TO ity o f (ONETOUCH 00:00: CHECK [place] ULTRA BLUE 00 GLUCOSE Medica l TEST STRIP) TWICE Branch strip DAILY blood sugar 2020- No USE 1 Univ ers diagnostic 7-22 09-02 STRIP TO ity of (ONETOUCH 00:00: 00:00 CHECK [place] ULTRA BLUE 00 :00 GLUCOSE Medica l TEST STRIP) TWICE Branch strip DAILY blood sugar 2020- No USE 1 Univ ers diagnostic 7-22 09-02 STRIP TO ity of (ONETOUCH 00:00: 00:00 CHECK [place] ULTRA BLUE 00 :00 GLUCOSE Medica l TEST STRIP) TWICE Branch strip DAILY acetaminoph Yes TAKE 2 Univ ers en-codeine 7-07 TABLETS BY ity of 300-30 mg 00:00: MOUTH [place] tablet 00 EVERY 6 Medical HOURS Branch NEEDED FOR PAIN acetaminoph Yes TAKE 2 Univ ers en-codeine 7-07 TABLETS BY ity of 300-30 mg 00:00: MOUTH [place] tablet 00 EVERY 6 Medical HOURS Branch NEEDED FOR PAIN acetaminoph Yes TAKE 2 Univ ers en-codeine 7-07 TABLETS BY ity of 300-30 mg 00:00: MOUTH [place] tablet 00 EVERY 6 Medical HOURS Branch NEEDED FOR PAIN acetaminoph 2020- No TAKE 2 Uni vers en-codeine 04-02 12- TABLETS BY it y of 300-30 mg 00:00: 00:00 MOUTH [place] tablet 00 :00 EVERY 6 Medical HOURS Branch NEEDED FOR PAIN acetaminoph 2020- No TAKE 2 Uni vers en-codeine 04-02 12- TABLETS BY it y of 300-30 mg 00:00: 00:00 MOUTH [place] tablet 00 :00 EVERY 6 Medical HOURS Branch NEEDED FOR PAIN clopidogreL 2018- Yes 75mg Take 75 mg Univers 75 mg 6-22 by mouth. ity of tablet 00:00: [place] 00 [facility] Branch clopidogreL 2018-0 Yes 75mg Take 75 mg Univers 75 mg 6-22 by mouth. ity of tablet 00:00: 00 [facility] clopidogreL 2018-0 Yes 75mg Take 75 mg Univers 75 mg 6-22 by mouth. ity of tablet 00:00: 00 [facility] Branch clopidogreL 2018-0 2020- No 75mg Take 75 mg Univers 75 mg 6-22 12-07 by mouth. ity of tablet 00:00: 00:00 [place] 00 :00 Medical Branch clopidogreL 2018-0 2020- No 75mg Take 75 mg Univers 75 mg 6-22 12-07 by mouth. ity of tablet 00:00: 00:00 [place] 00 :00 Medical Branch fluconazole Yes 100mg Take 1 Uni vers (DIFLUCAN) 3-20 tablet by ity of 100 mg 00:00: mouth [place] tablet 00 daily. Medical Branch terbinafine Yes Apply to U nivers HCl 3-20 area(s) 2 ity of (LAMISIL 00:00: (two) [place] AT) 1 % 00 times Medical cream daily. Branch fluconazole Yes 100mg Take 1 Uni vers (DIFLUCAN) 3-20 tablet by ity of 100 mg 00:00: mouth [place] tablet 00 daily. Medical Branch terbinafine Yes Apply to U nivers HCl 3-20 area(s) 2 ity of (LAMISIL 00:00: (two) [place] AT) 1 % 00 times Medical cream daily. Branch fluconazole Yes 100mg Take 1 Uni vers (DIFLUCAN) 3-20 tablet by ity of 100 mg 00:00: mouth [place] tablet 00 daily. Medical Branch terbinafine Yes Apply to U nivers HCl 3-20 area(s) 2 ity of (LAMISIL 00:00: (two) [place] AT) 1 % 00 times Medical cream daily. Branch fluconazole 2020- No 100mg Take 1 Un jovi (DIFLUCAN) 3-20 - tablet by ity of 100 mg 00:00: 00:00 mouth [place] tablet 00 :00 daily. Medical Branch terbinafine 2020- No Apply to Univers HCl 3-20 12- area(s) 2 ity of (LAMISIL 00:00: 00:00 (two) [place] AT) 1 % 00 :00 times Medical cream daily. Branch fluconazole No 100mg Take 1 Un jovi (DIFLUCAN) -09-02 tablet by ity of 100 mg 00:00: 00:00 mouth [place] tablet 00 :00 daily. Medical Branch terbinafine 2020- No Apply to Univers HCl -09-02 area(s) 2 ity of (LAMISIL 00:00: 00:00 (two) [place] AT) 1 % 00 :00 times Medical cream daily. Branch traMADOL 2020- No 50mg Take 1 Univer s (ULTRAM) 50 06-16-17 tablet by it y of mg tablet 00:00: 00:00 mouth [place] 00 :00 every 6 Medical (six) Branch hours as needed for Pain (scale 7-10). traMADol 50 2020- No 50mg Take 50 mg Univers mg tablet 06-16-17 by mouth. ity of 00:00: 00:00 [place] 00 :00 Medical Branch metFORMIN Yes 500mg Take 500 Uni vers (GLUCOPHAGE 3-15 mg by ity of ) 500 mg 14:33: mouth 2 [place] tablet 36 (two) Medical times Branch daily with meals. methocarbam Yes 750mg Take 750 U nivers ol 3-15 mg by ity of (ROBAXIN) 14:33: mouth 4 [place] 750 mg 36 (four) Medical tablet times Branch daily as needed. LOVASTATIN Yes Take by Uni vers ORAL 3-15 mouth. ity of 14:33: [place] 36 Medical Branch lovastatin Yes 40mg Take 40 mg U nivers 40 mg 3-15 by mouth ity of tablet 14:33: at [place] 36 bedtime. Medical Branch metFORMIN 2017-0 Yes 500mg Take 500 Uni vers (GLUCOPHAGE 3-15 mg by ity of ) 500 mg 14:33: mouth 2 [place] tablet 36 (two) Medical times Branch daily with meals. methocarbam 2017-0 Yes 750mg Take 750 U nivers ol 3-15 mg by ity of (ROBAXIN) 14:33: mouth 4 [place] 750 mg 36 (four) Medical tablet times Branch daily as needed. lovastatin 2017-0 Yes 40mg Take 40 mg U nivers 40 mg 3-15 by mouth ity of tablet 14:33: at [place] 36 bedtime. Medical Branch metFORMIN 2017-0 Yes 500mg Take 500 Uni vers (GLUCOPHAGE 3-15 mg by ity of ) 500 mg 14:33: mouth 2 [place] tablet 36 (two) Medical times Branch daily with meals. methocarbam 2017-0 Yes 750mg Take 750 U nivers ol 3-15 mg by ity of (ROBAXIN) 14:33: mouth 4 [place] 750 mg 36 (four) Medical tablet times Branch daily as needed. lovastatin 2017-0 Yes 40mg Take 40 mg U nivers 40 mg 3-15 by mouth ity of tablet 14:33: at [place] 36 bedtime. Medical Branch pentazocine Yes 1{tbl} Take 1 Un jovi -naloxone 2-21 tablet by ity o f 50-0.5 mg 00:00: mouth [place] tablet 00 every 6 Medical (six) Branch hours as needed for Pain. pentazocine 2016- Yes 1{tbl} Take 1 Un jovi -naloxone 2-21 tablet by ity o f 50-0.5 mg 00:00: mouth [place] tablet 00 every 6 Medical (six) Branch hours as needed for Pain. pentazocine 2017- Yes 1{tbl} Take 1 Un jovi -naloxone 2-21 tablet by ity o f 50-0.5 mg 00:00: mouth [place] tablet 00 every 6 Medical (six) Branch hours as needed for Pain. pentazocine 2020- No 1{tbl} Take 1 U nivers -naloxone 2-21 12-07 tablet by ity of 50-0.5 mg 00:00: 00:00 mouth [place] tablet 00 :00 every 6 Medical (six) Branch hours as needed for Pain. pentazocine 2016-2020- No 1{tbl} Take 1 U nivers -naloxone 2-21 12-07 tablet by ity of 50-0.5 mg 00:00: 00:00 mouth [place] tablet 00 :00 every 6 Medical (six) Branch hours as needed for Pain. methylPREDN 2016-0 Yes 84mg Take 21 Uni vers ISolone 1-31 tablets by ity of (MEDROL, 00:00: mouth [place] MICHELE,) 4 mg 00 SEE-INSTRU Med ical tablets CTIONS. Branch follow package directions methylPREDN 2016-0 Yes 84mg Take 21 Uni vers ISolone 1-31 tablets by ity of (MEDROL, 00:00: mouth [place] MICHELE,) 4 mg 00 SEE-INSTRU Med ical tablets CTIONS. Branch follow package directions methylPREDN 2016-0 Yes 84mg Take 21 Uni vers ISolone 1-31 tablets by ity of (MEDROL, 00:00: mouth [place] MICHELE,) 4 mg 00 SEE-INSTRU Med ical tablets CTIONS. Branch follow package directions methylPREDN 2016-0 2020- No 84mg Take 21 Un jovi ISolone 1-31 12-07 tablets by ity o f (MEDROL, 00:00: 00:00 mouth [place] MICHELE,) 4 mg 00 :00 SEE-INSTRU Med ical tablets CTIONS. Branch follow package directions methylPREDN 2016-0 2020- No 84mg Take 21 Un jovi ISolone 1-31 12-07 tablets by ity o f (MEDROL, 00:00: 00:00 mouth [place] MICHELE,) 4 mg 00 :00 SEE-INSTRU Med ical tablets CTIONS. Branch follow package directions methylPREDN 2017-0 Yes 84mg Take 21 Uni vers ISolone 1-10 tablets by ity of (MEDROL, 00:00: mouth [place] MICHELE,) 4 mg 00 SEE-INSTRU Med ical tablets CTIONS. Branch follow package directions methylPREDN 2017-0 Yes 84mg Take 21 Uni vers ISolone 1-10 tablets by ity of (MEDROL, 00:00: mouth [place] MICHELE,) 4 mg 00 SEE-INSTRU Med ical tablets CTIONS. Branch follow package directions methylPREDN 2017-0 Yes 84mg Take 21 Uni vers ISolone 1-10 tablets by ity of (MEDROL, 00:00: mouth [place] MICHELE,) 4 mg 00 SEE-INSTRU Med ical tablets CTIONS. Branch follow package directions methylPREDN 2020- No 84mg Take 21 Un jovi ISolone 1-10 12-07 tablets by ity o f (MEDROL, 00:00: 00:00 mouth [place] MICHELE,) 4 mg 00 :00 SEE-INSTRU Med ical tablets CTIONS. Branch follow package directions methylPREDN 2020- No 84mg Take 21 Un jovi ISolone 1-10 12-07 tablets by ity o f (MEDROL, 00:00: 00:00 mouth [place] MICHELE,) 4 mg 00 :00 SEE-INSTRU Med ical tablets CTIONS. Branch follow package directions cyclobenzap 2016 Yes 10mg Take 1 Univ ers rine 5-10 tablet by ity of (FLEXERIL) 00:00: [place] 10 mg 00 (three) Medical tablet times Branch daily. cyclobenzap 2016-0 Yes 10mg Take 10 mg Univers rine 10 mg 5-10 by mouth. ity of tablet 00:00: [place] [facility] Branch cyclobenzap Yes 10mg Take 1 Univ ers rine 5-10 tablet by ity of (FLEXERIL) 00:00: [place] 10 mg 00 (three) Medical tablet times Branch daily. cyclobenzap 0 Yes 10mg Take 10 mg Univers rine 10 mg 5-10 by mouth. ity of tablet 00:00: [facility] Branch cyclobenzap 2016-0 Yes 10mg Take 1 Univ ers rine 5-10 tablet by ity of (FLEXERIL) 00:00: [place] 10 mg 00 (three) Medical tablet times Branch daily. cyclobenzap 2016-0 Yes 10mg Take 10 mg Univers rine 10 mg 5-10 by mouth. ity of tablet 00:00: [facility] Branch cyclobenzap 2015-2020- No 10mg Take 1 Uni vers rine 5-10 12-07 tablet by ity of (FLEXERIL) 00:00: 00:00 mouth 3 [place] 10 mg 00 :00 (three) Medical tablet times Branch daily. cyclobenzap 2016-0 2020- No 10mg Take 10 mg Univers rine 10 mg 5-10 12-07 by mouth. ity of tablet 00:00: 00:00 [place] 00 :00 Medical Branch cyclobenzap 2020- No 10mg Take 1 Uni vers rine 5-10 09-02 tablet by ity of (FLEXERIL) 00:00: 00:00 mouth 3 [place] 10 mg 00 :00 (three) Medical tablet times Branch daily. cyclobenzap 2020- No 10mg Take 10 mg Univers rine 10 mg 5-10 09-02 by mouth. ity of tablet 00:00: 00:00 [place] 00 :00 Medical Branch ONETOUCH Yes Univers ULTRA TEST - ity of strip 00:00: [place] 00 Medical Branch ONETOUCH Yes Univers ULTRA TEST 5- ity of strip 00:00: [place] 00 Medical Branch ONETOUCH Yes Univers ULTRA TEST - ity of strip 00:00: [place] 00 Medical Branch ONETOUCH 2015-2020- No Univers ULTRA TEST 01-26 ity of strip 00:00: 00:00 [place] 00 :00 Medical Branch ONETOUCH 2015-2020- No Univers ULTRA TEST 01-26 ity of strip 00:00: 00:00 [place] 00 :00 Medical Branch diclofenac Yes 75mg Take 1 Tab U nivers (VOLTAREN) 2-19 by mouth 2 ity of 75 mg EC 00:00: (two) [place] tablet 00 times Medical daily with Branch meals. diclofenac 0 Yes 75mg Take 1 Tab U nivers (VOLTAREN) 2-19 by mouth 2 ity of 75 mg EC 00:00: (two) [place] tablet 00 times Medical daily with Branch meals. diclofenac 2015-0 Yes 75mg Take 1 Tab U nivers (VOLTAREN) 2-19 by mouth 2 ity of 75 mg EC 00:00: (two) [place] tablet 00 times Medical daily with Branch meals. diclofenac 2015-2020- No 75mg Take 1 Tab Univers (VOLTAREN) 2-19 - by mouth 2 it y of 75 mg EC 00:00: 00:00 (two) [place] tablet 00 :00 times Medical daily with Branch meals. diclofenac 2015-2020- No 75mg Take 1 Tab Univers (VOLTAREN) 2-19 09-02 by mouth 2 it y of 75 mg EC 00:00: 00:00 (two) [place] tablet 00 :00 times Medical daily with Branch meals. levothyroxi Yes Comments: U nivers ne 75 mcg 8-19 | Filled ity of tablet 00:00: Date: Aug Medical 10:10AM | Branch Patient Notes: TAKE ONE TABLET BY MOUTH ONCE DAILY levothyroxi Yes Comments: U nivers ne 75 mcg 8-19 | Filled ity of tablet 00:00: Date: Aug Medical 10:10AM | Branch Patient Notes: TAKE ONE TABLET BY MOUTH ONCE DAILY levothyroxi Yes Comments: U nivers ne 75 mcg 8-19 | Filled ity of tablet 00:00: Date: Aug Medical 10:10AM | Branch Patient Notes: TAKE ONE TABLET BY MOUTH ONCE DAILY levothyroxi 2020- No Comments: Univers ne 75 mcg 8- 12-07 | Filled ity o f tablet 00:00: 00:00 Date: Aug Medical 10:10AM | Branch Patient Notes: TAKE ONE TABLET BY MOUTH ONCE DAILY levothyroxi 2020- No Comments: Univers ne 75 mcg - 12-07 | Filled ity o f tablet 00:00: 00:00 Date: Aug Medical 10:10AM | Branch Patient Notes: TAKE ONE TABLET BY MOUTH ONCE DAILY Tamsulosin Tamsulosin Yes [place] [address] [facility] HCl HCl [facility] acetaminoph acetaminoph No acetaminop [place] 300 [...] by oral by oral route. route. route. Vital Signs Vital Name Observation Time Observation Value Comments Source Heart rate 2021-09-02 14:58:00 66 /min [facility] Respiratory rate 2021-09-02 14:58:00 23 /min [facility] Oxygen saturation in 2021-09-02 14:58:00 97 /min [facility] Arterial blood by [facility] Pulse oximetry Branch Systolic blood 2021-09-02 14:55:00 167 mm[Hg] [facility] 2021-09-02 14:55:00 98 mm[Hg] Unive [facility] Body temperature 2021-09-02 14:36:00 36.28 [facility] Body height 2021-08-29 19:19:00 175.3 cm [facility] Body weight 2021-08-29 19:19:00 96.9 kg [facility] BMI 2021-08-29 19:19:00 31.53 kg/m2 [facility] Systolic blood 2021-09-02 12:43:00 172 mm[Hg] Univer sity [facility] Diastolic blood 2021-09-02 12:43:00 99 mm[Hg] Unive [facility] Heart rate 2021-09-02 12:43:00 71 /min [facility] Body temperature 2021-09-02 12:43:00 36.61 [facility] Respiratory rate 2021-09-02 12:43:00 18 /min [facility] Oxygen saturation in 2021-09-02 12:43:00 99 /min [facility] of Arterial blood by [facility] Pulse oximetry Branch Body height 2021-08-29 19:19:00 175.3 cm [facility] [place] [facility] [place] Body weight 2021-08-29 19:19:00 96.9 kg [facility]i ty [facility] [place] [facility] BMI 2021-08-29 19:19:00 31.53 kg/m2 Universi ty of [facility] Branch Systolic blood 2021-08-13 19:02:00 166 mm[Hg] Univer sit of [facility] Diastolic blood 2021-08-13 19:02:00 92 mm[Hg] [facility] Heart rate 2021-08-13 19:02:00 71 /min Universi ty of [facility] Respiratory rate 2021-08-13 19:02:00 20 /min [facility] Body height 2021-08-13 19:02:00 175.3 cm Universi ty of [facility] Body weight 2021-08-13 19:02:00 101.016 kg [facility]i ty [facility] [place] [facility] [place] BMI 2021-08-13 19:02:00 32.89 kg/m2 Universi ty [facility] Oxygen saturation in 2021-08-13 19:02:00 98 /min University of Arterial blood by [facility] Pulse oximetry Branch Procedures Procedure Date / Time Performing Source Performed Clinician PHACOEMULSIFICATION OF 2021-09-02 Che Bah [facility] CATARACT WITH INTRAOCULAR 13:39:00 [facility] LENS IMPLANT POCT GLUCOSE(AGE >30DAYS) 2021-09-02 Braxton Farias [facility] 13:00:00 Medical Branch POCT GLUCOSE(AGE >30DAYS) 2021-09-02 Braxton Farias [facility] 13:00:00 Medical Branch POCT GLUCOSE (AUTOMATED) 2021-09-02 Che Bah [facility] 12:52:00 Medical Branch ASSIGNMENT OF BENEFITS 2021-09-01 Doctor Unassigned, [facility] 14:57:17 [facility] EXTERNAL PROVIDER RECORDS 2021-08-18 Doctor Unassigned, [facility] 06:01:00 [facility] EXTERNAL PROVIDER RECORDS 2021-08-18 Doctor Unassigned, [facility] 06:01:[address] [facility] [address] [facility] [address], urogram 2018-07-07 [place] [facility] 00:[facility] Group Plan of Care Planned Activity Planned Date Details Comments Source Diagnostic Test 2018-07-07 cytology, urine [place] [facility] Pending 00:00:00 [code = cytology, Group urine] Encounters Start End Encounter Admission Attending Care Care Encounter Source Date/Time Date/Time Type Type Clinicians Facility Department ID 2021-09-12 2021-09-12 [id number] 2021-09-08 2021-09-08 [facility] [id number] 2021-09-02 2021-09-02 [facility] [id number] Univers 06:24:00 09:17:00 CHE saleem [facility] 2021-09-02 2021-09-02 [facility] [id number] Univers 06:24:00 09:17:00 Encounter Che CORDERO [id number] ity [facility] [id number] [id number] [address] 2021-09-02 2021-09-02 Surgery [facility] [id number] Univers 07:30:00 08:31:00 Che CORDERO [id number] ity [facility] [id number] [id number] [address] 2021-09-01 2021-09-01 Outpatient R [facility] [id number] Univers 09:45:00 09:45:00 [id number] [facility] 2021-09-01 2021-09-01 [facility] [id number] Univers 09:45:00 09:45:00 CHE itsaleem [facility] 2021-09-01 2021-09-01 Laboratory Only, Adc Test [facility] [id number] Univers 08:58:02 09:13:02 Only Niurka Che [place] [id number]. 10 ity of [place] [id number] [place] SE[place] [id number] [facility] 353 Branch 2021-09-01 2021-09-01 Orders Doctor MEGAN [id number] Univers 00:00:00 00:00:00 Only Unassigned, ANASTASIA [id number] ity of [facility] [id number] [place] [id number] [place] [address] Branch 2021-09-01 2021-09-01 ambulatory [facility] [id number] [facility] 2021-08-26 2021-08-26 ambulatory [facility] [id number] [facility] 2021-08-19 2021-08-19 ambulatory [facility] [id number] [facility]00 [facility] 2021-08-13 2021-08-13 Office Bahena, [facility] [id number] Univers 12:47:28 13:02:28 Visit [facility] [id number] it [facility] [id number] [place] as CHELLE?BLEA [id number] [address] MEDICAL OFFICE BUILDING 2021-07-29 2021-07-29 ambulatory [facility] [id number] [facility]00 [facility] 2021-07-25 2021-07-25 Outpatient [facility] [id number] [facility] 2021-07-21 2021-07-21 Outpatient [facility] [id number] [facility]00 [facility] 2021-07-11 2021-07-11 Outpatient [facility] [id number] [facility]00 [facility] 2021-07-11 2021-07-11 Outpatient [facility] [id number] [facility] 2021-06-29 2021-06-29 Outpatient [facility] [id number] [facility] 2021-06-24 2021-06-24 Outpatient [facility] [id number] [facility] 2021-06-06 2021-06-06 Outpatient [facility] [id number] [facility] 2021-05-05 2021-05-05 Outpatient [facility] [id number] [facility]00 [facility] 2021-04-30 2021-04-30 Outpatient [facility] [id number] [facility] 2021-04-30 2021-04-30 Outpatient [facility] [id number] [facility]00 [facility] 2021-04-25 2021-04-25 Outpatient [facility] [id number] [facility]00 [facility] 2021-04-03 2021-04-03 Outpatient [facility] [id number] [facility]00 [facility] 2021-01-24 2021-01-24 Outpatient [facility] [id number] [facility]00 [facility] 2021-01-17 2021-01-17 Outpatient [facility] [id number] [facility] 2021-01-13 2021-01-13 Outpatient [facility] [id number] [facility] 2021-01-10 2021-01-10 Outpatient [facility] [id number] [facility] 2020-12-31 2020-12-31 Outpatient [facility] [id number] [facility]00 [facility] 2020-12-25 2020-12-25 Office Meño [facility] [id number] 12:51:24 13:25:03 Visit [facility] [id number] [facility] [id number] [facility] [id number] 2020-12-23 2020-12-23 Outpatient [facility] [id number] [facility]00 [facility] 2020-12-21 2020-12-21 Outpatient [facility] [id number] [facility] 2020-12-19 2020-12-19 Outpatient [facility] [id number] [facility]00 [facility] 2020-12-17 2020-12-17 Outpatient [facility] [id number] [facility]00 [facility] 2020-12-17 2020-12-17 Outpatient [facility] [id number] [facility]00 [facility] 2020 2020 Outpatient [facility] [id number] [facility] 2020-12-09 2020-12-09 [facility] [id number] [facility] 2020-11-07 2020-11-07 Outpatient [facility] [id number] [facility]00 [facility] 2020-11-04 2020-11-04 [facility] [id number] [facility] 2020-11-04 2020-11-04 Out[facility] [id number] [facility]00 [facility] 2020-10-15 2020-10-15 Outpatient OSTRANDER, [facility] [id number] [facility] 07:11:00 12:00:00 [place] 2020-09-09 2020-09-09 Out[facility] [id number] [facility]00 [facility] 2020-08-14 2020-08-14 Outpatient Young_J MMG MMG [id number] [place] 02:37:00 02:37:00 [facility] 2020-07-16 2020-07-16 Out[facility] [id number] [facility]00 [facility] 2020-05-06 2020-05-06 [facility] [id number] [facility] 10:52:00 10:52:00 [facility] Medicine l Medicine Outpati ent Clinics 2020-04-10 2020-04-10 [facility] [id number] [facility] 13:19:00 13:19:00 [facility] Medicine l Medicine Outpati ent Clinics 2020-04-08 2020-04-08 [facility] [id number] [facility] 11:08:00 11:08:00 [facility] Medicine Outpati ent Clinics 2020-04-05 2020-04-05 [facility] [id number] [facility] 18:34:00 18:34:00 t [facility] Medicine Outpati ent Clinics 2020-01-09 2020-01-09 [facility] [id number] [facility] 14:23:00 14:23:00 t [facility] Medicine Outpati ent Clinics 2020-01-08 2020-01-08 [facility] [id number] [facility] [facility] 08:00:00 08:00:00 [facility] Medicine Outpati ent Clinics 2019-11-22 2019-11-22 [facility] [id number] [facility] 19:45:00 19:45:00 [facility] Medicine Outpati ent Clinics 2019-11-08 2019-11-08 [facility] [id number] [facility] [facility] 09:12:00 09:12:00 [facility] Medicine Outpati ent Clinics 2019-11-07 2019-11-07 [facility] [id number] [facility] 08:17:00 08:17:00 [facility] Medicine Outpati ent Clinics 2019-10-19 2019-10-19 [facility] [id number] [facility] 15:57:00 15:57:00 t [facility] Medicine Outpati ent Clinics 2019-10-18 2019-10-18 [facility] [id number] [facility] 09:24:00 09:24:00 t [facility] Medicine Outpati ent Clinics 2019-10-17 2019-10-17 [facility] [id number] [facility] 09:00:00 09:00:00 [facility] Medicine Outpati ent Clinics 2019-10-09 2019-10-09 [facility] [id number] [facility] 10:27:00 10:27:00 [facility] Medicine Outpati ent Clinics 2019-10-09 2019-10-09 Outpatient Estuardo Solano [id number] [facility] 09:[facility] 09:00:00 [facility] Medicine Outpati ent [facility] 2018-08-08 2018-08-08 Saravanan ABDALLA [place] - [id number] M atagor 00:00:00 00:00:00 Terrance, DO: [facility] g[facility] a [address] [place] [address] - [address], [facility] [id number] , Ph. [phone] 2018-08-04 2018-08-04 Jose Garcia MM [place] - [id number] M atagor 00:00:00 00:00:00 MD Bobbi: [facility] batres [address] [place] [address], [place] - [address], [place] [address] , Ph. 2018-07-07 2018-07-07 Jose Garcia MM [place] - [id number] M atagor 00:00:00 00:00:00 MD Bobbi: [facility] [address] [place] [address] 1, [place] [address] , Ph. Results Test Description Test Time Test Comments Results Result Comments Source POCT GLUCOSE (AUTOMATED) 2021-09-02 16:40:15 Test Item Value Reference Range Interpretation Comme nts POCT GLU (test code = 2430499679) 127 mg/dL 70-110 H Lab Interpretation (test code = 72615-5) Abnormal [facility] [id number] 13:00:00 Test Item Value Reference Range Interpretation Comments POCT Glu (age>30days) (test code = 127 mg/dL 70-110 A 3342) Lab Interpretation (test code = Abnormal 22399-6) [facility] [id number] 13:00:00 Test Item Value Reference Range Interpretation Comments POCT Glu (age>30days) (test code = 127 mg/dL 70-110 A 3342) Lab Interpretation (test code = Abnormal 66282-7) [facility]"
[2021-09-19] MEDS ORDERED: MORPHINE 4 MG/ML SYR ONE (00:16)
[2021-09-19] MEDS ORDERED: ONDANSETRON 4 MG/2 ML VIAL ONE (00:16)
[2021-09-19 00:40] LABS: Urine Blood Trace-intact (Negative); Urine Glucose Negative (Negative); Urine Protein Negative (Negative); Urine Specific Gravity >=1.030 (1.005-1.030); Urine pH 5.5 (5.0-7.0)
[2021-09-19 01:00] LABS: Basophils % 0.4 % (0-1.3); Hematocrit 41.4 % (39.6-49.0); Lymphocytes % 30.5 % (15.3-44.8); MPV 8.1 fL (7.6-11.3); RBC Red Blood Cell Count 4.91 M/uL (4.33-5.43)
[2021-09-19] MEDS ORDERED: MEPERIDINE HCL 50 MG/ML ONE (01:06)
[2021-09-19 01:11] LABS: Urine Bacteria 20-50 /HPF (NONE SEEN); Urine Mucus 2+ /HPF (NONE SEEN)
[2021-09-19 01:18] LABS: Albumin 3.6 g/dL (3.4-5.0); Bilirubin Direct 0.1 mg/dL (0-0.2); Bilirubin Total 0.4 mg/dL (0.2-1.0); Potassium 3.8 mmol/L (3.5-5.1); Protein, Total 7.9 g/dL (6.4-8.2)
[2021-09-19] MEDS ORDERED: SMZ./TMP. 800/160 MG TABLET ONE (02:46)
--- NOTE | 2021-09-19 03:58 | EDPHYS ---
Physician Documentation [facility] Name: Moshe Ewing Age: 60 yrs Sex: Male : 1960 Arrival Date: 09/18/2021 Time: 23:20 Bed 6 Private MD: ED Physician Wiliam Mann HPI: 09/19 00:16 This 60 yrs old Male presents to ER via EMS with complaints of Abdominal Pain. rn 00:16 The patient presents with abdominal pain. The patient presents with abdominal pain rn right lower quadrant. Onset: The symptoms/episode began/occurred 4 hour(s) ago. The symptoms do not radiate. Associated signs and symptoms: Pertinent positives: nausea, Pertinent negatives: blood in stools, chest pain, constipation, diarrhea, dysuria, fever, testicular pain, vomiting blood. The symptoms are described as constant, sharp. Modifying factors: The symptoms are alleviated by nothing, the symptoms are aggravated by movement. Severity of pain: At its worst the pain was moderate in the emergency department the pain is unchanged. The patient has not experienced similar symptoms in the past. The patient has not recently seen a physician. Patient reports 3 to 4 hours of right lower quadrant abdominal pain. Is constant and sharp. Worsened with movement and palpation. Reports history of kidney stones but denies any back or flank pain. No radiation to groin or testicles. No trauma. No fever. No vomiting or diarrhea. Denies dysuria or hematuria.. Historical: - Allergies: 09/18 23:47 amlodipine; lp1 - Home Meds: 23:47 clopidogrel 75 mg Oral tab 1 tab once daily [Active]; levothyroxine 75 mcg tab 1 tab lp1 once daily [Active]; finasteride 5 mg Oral tab 1 tab once daily [Active]; losartan 100 mg Oral tab 1 tab once daily [Active]; metformin 500 mg Oral cpER 1 tab 1 tab with breakfast, 1 tab with lunch, 2 tabs with evening meal [Active]; lovastatin 40 mg Oral tab 1 tab once daily [Active]; tamsulosin 0.4 mg Oral cp24 1 cap once daily [Active]; - PMHx: 23:47 Diabetes - NIDDM; DVT; Hypercholesterolemia; Hypertension; Hypothyroidism; lp1 - PSHx: 23:47 back sx; Cholecystectomy; foot/shoulder SX; L hand SX with plates placed; stimulator R lp1 back for legs; R BKA; - Immunization history:: Adult Immunizations up to date. - Social history:: Smoking status: Patient denies any tobacco usage or history of. - Family history:: not pertinent. - Hospitalizations: : No recent hospitalization is reported. ROS: 09/19 00:16 Constitutional: Negative for fever, chills, and weight loss, Eyes: Negative for injury, rn pain, redness, and discharge, Neck: Negative for injury, pain, and swelling, Cardiovascular: Negative for chest pain, palpitations, and edema, Respiratory: Negative for shortness of breath, cough, wheezing, and pleuritic chest pain, Abdomen/GI: Positive for right lower quadrant abdominal pain Back: Negative for injury and pain, : Negative for injury, bleeding, discharge, and swelling, MS/Extremity: Negative for injury and deformity, Skin: Negative for injury, rash, and discoloration, Neuro: Negative for headache, weakness, numbness, tingling, and seizure. Exam: 00:16 Constitutional: This is a well developed, well nourished patient who is awake, alert, rn appears uncomfortable, holding right lower quadrant Head/Face: Normocephalic, atraumatic. Eyes: Periorbital areas with no swelling, redness, or edema. Cardiovascular: Tachycardic, regular. No pulse deficits Respiratory: No increased work of breathing, no retractions or nasal flaring. Abdomen/GI: soft, + RLQ tenderness with guarding Skin: Warm, dry MS/ Extremity: Pulses equal, no cyanosis. Neuro: Awake and alert, GCS 15 Vital Signs: 09/18 23:46 BP 198 / 108; Pulse 95; Resp 18; Temp 97.6; Pulse Ox 100% on R/A; Weight 95.25 kg; lp1 Height 5 ft. 9 in. (175.26 cm); Pain 10/; 09/19 00:30 BP 178 / 100; Pulse 77; Resp 18; Pulse Ox 98% on R/A; Pain 10; tw5 02:50 BP 143 / 83; Pulse 74; Resp 18 S; Pulse Ox 100% on R/A; as6 04:13 BP 145 / 80; Pulse 74; Resp 18; Pulse Ox 100% on R/A; tw5 09/18 23:46 Body Mass Index 31.01 (95.25 kg, 175.26 cm) lp1 MDM: 09/18 23:53 Patient medically screened. rn 09/19 03:56 Differential diagnosis: appendicitis, bowel obstruction, diverticulitis, rn Ureterolithiasis, urinary tract infection. Data reviewed: vital signs, nurses notes. 03:57 Counseling: I had a detailed discussion with the patient and/or guardian regarding: the rn historical points, exam findings, and any diagnostic results supporting the discharge/admit diagnosis, lab results, radiology results, the need for outpatient follow up, to return to the emergency department if symptoms worsen or persist or if there are any questions or concerns that arise at home. Response to treatment: the patient's symptoms have markedly improved after treatment, and as a result, I will discharge patient. Special discussion: Based on the patient's Hx, exam, and Dx evaluation, there is no indication for emergent surgery or inpatient Tx. It is understood by the patient/guardian that if the Sx's persist or worsen they need to return immediately for re-evaluation. I discussed with the patient/guardian in detail that at this point there is no indication for admission to the hospital. It is understood, however, that if the symptoms persist or worsen the patient needs to return immediately for re-evaluation. ED course: Ct shows enteritis, no appendicitis or other acute finding. Will dc home with abx and return precautions.. 09/19 00:05 Order name: Basic Metabolic Panel; Complete Time: 01:39 rn 09/19 00:05 Order name: CBC with Diff; Complete Time: 01:39 rn 09/19 00:05 Order name: Hepatic Function; Complete Time: 02:01 rn 09/19 00:05 Order name: Lipase; Complete Time: 02:01 rn 09/19 00:05 Order name: Urine Microscopic Only; Complete Time: 02:01 rn 09/19 00:40 Order name: Urine Dipstick-Ancillary EDMS 09/19 00:05 Order name: IV Saline Lock; Complete Time: 00:34 rn 09/19 00:05 Order name: Labs collected and sent; Complete Time: 00:34 rn 09/19 00:05 Order name: CT Abd/Pelvis - IV Contrast Only rn 09/19 01:12 Order name: Urine Culture EDMS 09/19 00:05 Order name: NPO; Complete Time: 00:34 rn 09/19 00:05 Order name: Urine Dipstick-Ancillary (obtain specimen); Complete Time: 00:34 rn Administered Medications: 00:22 Drug: morphine 4 mg Route: IVP; Site: right hand; tw5 01:00 Follow up: Response: No adverse reaction; RASS: Agitated (+2) 00:22 Drug: Zofran (Ondansetron) 4 mg Route: IVP; Site: right hand; tw5 04:15 Follow up: Response: No adverse reaction 01:09 Drug: Demerol (meperidine) 50 mg Route: IVP; Site: right hand; as6 04:14 Follow up: Response: No adverse reaction 02:48 Drug: Bactrim (trimethoprim-sulfamethoxazole) (160 mg-800 mg (DS) 1 tablet Route: PO; as6 04:14 Follow up: Response: No adverse reaction tw5 Disposition Summary: 09/19/21 03:58 Discharge Ordered Location: Home rn Problem: new rn Symptoms: have improved rn Condition: Stable rn Diagnosis - Lower abdominal pain, unspecified rn - Infectious gastroenteritis and colitis, unspecified rn Followup: rn - With: Private Physician - When: As needed - Reason: Recheck today's complaints, Re-evaluation by your physician Discharge Instructions: - Discharge Summary Sheet rn - Abdominal Pain, Adult rn Forms: - Medication Reconciliation Form rn - Thank You Letter rn - Antibiotic rn provider relations - Prescription Opioid Use rn Prescriptions: - ondansetron 4 mg Oral tablet,disintegrating - take 1 tablet by ORAL route every 8 hours As needed; 15 tablet; Refills: 0, rn Product Selection Permitted - Tramadol 50 mg Oral Tablet - take 1 tablet by ORAL route every 8 hours as needed; 12 tablet; Refills: 0, rn Product Selection Permitted - Bactrim DS 800-160 mg Oral Tablet - take 1 tablet by ORAL route every 12 hours for 10 days; 20 tablet; Refills: 0, rn Product Selection Permitted Signatures: Dispatcher [employer] Wiliam Tracy MD MD rn Pena, Laura, RN RN lp1 Soy Ayala, FAMILY PSYCHOLOGIST-C FAMILY PSYCHOLOGIST-Cla1 Li Crowe tw5 Jae Azul RN RN as6 Corrections: (The following items were deleted from the chart) 00:20 00:16 Constitutional: This is a well developed, well nourished patient who is awake, rn alert, appears uncomfortable, holding right lower quadrant Head/Face: Normocephalic, atraumatic. Eyes: Periorbital areas with no swelling, redness, or edema. Cardiovascular: Regular rate and rhythm. No pulse deficits. Respiratory: No increased work of breathing, no retractions or nasal flaring. Abdomen/GI: soft, + RLQ tenderness with guarding Skin: Warm, dry MS/ Extremity: Pulses equal, no cyanosis. Neuro: Awake and alert, GCS 15 rn
--- NOTE | 2021-09-19 03:58 | ER ---
Nurse's Notes [facility] Name: Moshe Ewing Age: 60 yrs Sex: Male : 1960 Arrival Date: 09/18/2021 Time: 23:20 Bed 6 Private MD: Diagnosis: Lower abdominal pain, unspecified;Infectious gastroenteritis and colitis, unspecified Presentation: 09/18 23:23 Chief complaint: EMS states: Called for RLQ abdominal pain that began 2 hours ago, ate lp1 ice cream at 1900; Given Ofirmev by EMS. Coronavirus screen: At this time, the client does not indicate any symptoms associated with coronavirus-19. Ebola Screen: No symptoms or risks identified at this time. Risk Assessment: Do you want to hurt yourself or someone else? Patient reports no desire to harm self or others. Onset of symptoms was September 18, 2021. 23:23 Method Of Arrival: EMS: [facility] lp1 23:23 Acuity: MYRIAM 3 lp1 23:46 Initial Sepsis Screen: Does the patient meet any 2 criteria? No. Patient's initial lp1 sepsis screen is negative. Does the patient have a suspected source of infection? No. Patient's initial sepsis screen is negative. 23:50 Care prior to arrival: IV initiated. 20 GA, in the right hand. lp1 Triage Assessment: 09/19 00:34 General: Appears uncomfortable, Behavior is agitated, anxious. tw5 Historical: - Allergies: 09/18 23:47 amlodipine; lp1 - Home Meds: 23:47 clopidogrel 75 mg Oral tab 1 tab once daily [Active]; levothyroxine 75 mcg tab 1 tab lp1 once daily [Active]; finasteride 5 mg Oral tab 1 tab once daily [Active]; losartan 100 mg Oral tab 1 tab once daily [Active]; metformin 500 mg Oral cpER 1 tab 1 tab with breakfast, 1 tab with lunch, 2 tabs with evening meal [Active]; lovastatin 40 mg Oral tab 1 tab once daily [Active]; tamsulosin 0.4 mg Oral cp24 1 cap once daily [Active]; - PMHx: 23:47 Diabetes - NIDDM; DVT; Hypercholesterolemia; Hypertension; Hypothyroidism; lp1 - PSHx: 23:47 back sx; Cholecystectomy; foot/shoulder SX; L hand SX with plates placed; stimulator R lp1 back for legs; R BKA; - Immunization history:: Adult Immunizations up to date. - Social history:: Smoking status: Patient denies any tobacco usage or history of. - Family history:: not pertinent. - Hospitalizations: : No recent hospitalization is reported. Screenin/24 00:30 Abuse screen: Denies threats or abuse. Denies injuries from another. Nutritional tw5 screening: No deficits noted. Tuberculosis screening: No symptoms or risk factors identified. Fall Risk No fall in past 12 months (0 pts). Secondary diagnosis (15 points) IV access (20 points). Ambulatory Aid- None/Bed Rest/Nurse Assist (0 pts). Assessment: 09/18 23:52 Pain: Complains of pain in right lower quadrant Pain currently is 9 out of 10 on a pain tw5 scale. GI: Bowel sounds present X 4 quads. Abdomen is tender to palpation in right lower quadrant. 09/19 00:30 General: Reports "That Thai doctor was suppose to take out my appendix when he took tw5 out my gallbladder, he better not show is face around me or I am going to kill him.". Pain: Complains of pain in right lower quadrant Pain currently is 10 out of 10 on a pain scale. Noted to be grimacing, guarding, moaning, restless. Neuro: Level of Consciousness is awake, alert, obeys commands, Oriented to person, place, time, situation. Respiratory: Airway is patent Trachea midline Respiratory effort is shallow, Respiratory pattern is hyperventilation. Musculoskeletal: Amputation of right knee. 02:50 Reassessment: Patient states feeling better. as6 04:13 Reassessment: Patient states feeling better. Patient states symptoms have improved. tw5 04:13 Reassessment: Patient denies pain at this time. tw5 Vital Signs: 09/18 23:46 BP 198 / 108; Pulse 95; Resp 18; Temp 97.6; Pulse Ox 100% on R/A; Weight 95.25 kg; lp1 Height 5 ft. 9 in. (175.26 cm); Pain 10/10; 09/19 00:30 BP 178 / 100; Pulse 77; Resp 18; Pulse Ox 98% on R/A; Pain 10/10; tw5 02:50 BP 143 / 83; Pulse 74; Resp 18 S; Pulse Ox 100% on R/A; as6 04:13 BP 145 / 80; Pulse 74; Resp 18; Pulse Ox 100% on R/A; tw5 09/18 23:46 Body Mass Index 31.01 (95.25 kg, 175.26 cm) lp1 ED Course: 09/18 23:20 Patient arrived in ED. ja2 23:24 Triage completed. lp1 23:46 Arm band placed on left wrist. lp1 23:51 Li Crowe is Primary Nurse. tw5 23:53 Wiliam Mann MD is Attending Physician. rn 09/19 00:30 Patient has correct armband on for positive identification. Placed in gown. Bed in low tw5 position. Call light in reach. Side rails up X 1. Pulse ox on. NIBP on. Door closed. Noise minimized. Moved to private room. Warm blanket given. Verbal reassurance given. 00:30 Initial lab(s) drawn, by me, sent to lab. Urine collected: clean catch specimen, clear. tw5 Inserted saline lock: 20 gauge in right antecubital area, using aseptic technique. Blood collected. Maintain EMS IV. Dressing intact. Good blood return noted. Site clean \\T\\ dry. Gauge \\T\\ site: 20 G Right hand. 00:36 Urine Microscopic Only Sent. tw5 00:37 Basic Metabolic Panel Sent. tw5 00:37 CBC with Diff Sent. tw5 00:37 Hepatic Function Sent. tw5 00:37 Lipase Sent. tw5 02:15 CT Abd/Pelvis - IV Contrast Only In Process Unspecified. EDMS 04:13 No provider procedures requiring assistance completed. IV discontinued, intact, tw5 bleeding controlled, No redness/swelling at site. Pressure dressing applied. 04:15 Urine Culture Sent. tw5 Administered Medications: 00:22 Drug: morphine 4 mg Route: IVP; Site: right hand; tw5 01:00 Follow up: Response: No adverse reaction; RASS: Agitated (+2) tw5 00:22 Drug: Zofran (Ondansetron) 4 mg Route: IVP; Site: right hand; tw5 04:15 Follow up: Response: No adverse reaction tw5 01:09 Drug: Demerol (meperidine) 50 mg Route: IVP; Site: right hand; as6 04:14 Follow up: Response: No adverse reaction 02:48 Drug: Bactrim (trimethoprim-sulfamethoxazole) (160 mg-800 mg (DS) 1 tablet Route: PO; as6 04:14 Follow up: Response: No adverse reaction Outcome: 03:58 Discharge ordered by . rn 04:13 Discharged to home ambulatory. 04:13 Condition: improved 04:13 Discharge instructions given to patient, Instructed on discharge instructions, follow up and referral plans. Demonstrated understanding of instructions, follow-up care, medications, Prescriptions given X 3. 04:14 Patient left the ED. Signatures: Dispatcher [employer] EDMS Wiliam Mann MD MD rn Pena, Laura, RN RN lp1 Felisha Franco Tiffany tw5 Jae Azul RN RN as6
[2021-09-19 04:20] VITALS: TEMP 97.6
[2021-09-19 04:23] VITALS: O2SAT 100
[2021-09-19 04:25] VITALS: BP 145/80
--- NOTE | 2021-09-20 12:38 | RAD REPORT ---
EXAM DESCRIPTION: CT - Abdomen Pelvis W Contrast - 09/19/2021 4:18 am CLINICAL HISTORY: 60 years, Male, RLQ abd pain COMPARISON: 10/28/2019. TECHNIQUE: Contrast-enhanced images of the abdomen and pelvis were performed utilizing 5 mm slice ickness at 5 mm interval reconstruction from the lung bases to the ischial tuberosities after the adm inistration IV contrast. In addition multiplanar reformats in the coronal and sagittal plane were obtained and reviewed. This exam was performed according to our departmental dose-optimization protocol, which includes auto mated exposure control, adjustment of the mA and/or kV according to patient size and/or use of iterat phi reconstruction technique. FINDINGS: The lung bases demonstrate minimal dependent atelectatic changes. The liver demonstrate decreased attenuation corresponding to fatty infiltration., pancreas, spleen an d adrenal glands demonstrate to be unremarkable, no focal lesions are noted. Surgical clips within th e gallbladder fossa correspond to previous cholecystectomy. There is no biliary duct dilatation The kidneys demonstrate normal uptake of contrast media. No evidence for nephrolithiasis and/or hydro nephrosis. There is a mid/upper pole left renal cyst measuring 3.1 x 2.3 cm on image 34. Grossly the unopacified stomach and large bowel demonstrate to be within normal limits. There are m ild prominent proximal small bowel loops although no definitive bowel dilatation is seen. Findings ar e nonspecific perhaps suggesting mild ileus and/or enteritis. The appendix is normal. There is dive rticulosis within the left site colon/sigmoid colon. The urinary bladder demonstrate to be unremarkable. The prostate gland is prominent perhaps related to BPH. The aorta demonstrate minimal atheromatous plaque formation at the aortic bifurcation. The re is a IVC filter below the level of renal veins. There is no retroperitoneal lymphadenopathy. The re is no evidence for ascites/or significant abnormal fluid collections. The rest of the soft tissue and bony structures are within normal limits. There is a bilateral inguinal hernia containing omentum , slightly greater left than right. There is a reservoir battery left side epidural neurostimulator. IMPRESSION: Mildly prominent proximal small bowel loops although no definitive bowel dilatation is s een. Findings are nonspecific perhaps suggesting mild ileus and/or enteritis. Normal appendix. Diverticulosis without evidence for diverticulitis. 3.1 cm left renal cyst. IVC filter. Enlarged prostate gland perhaps related to BPH. Electronically signed by: Harshil Rodriguez MD 09/19/2021 2:32 AM JIGSAW OPERATOR Due to temporary technical issues with the PACS/Fluency reporting system, reports are being signed by the in house radiologists without review as a courtesy to insure prompt reporting. The interpreting radiologist is fully responsible for the content of the report.
== END 2021-09-19 04:14 | disposition home or self-care (01) ==
LOC: ER 23:17
DX: A09 Infectious gastroenteritis and colitis, unspecified (principal); I10 Essential (primary) hypertension; E11.9 Type 2 diabetes mellitus without complications; Z88.8 Allergy status to other drugs, medicaments and biological substances
CPT/HCPCS: 87088; 85025; 87086; 80048; 36415; 80076; 83690; 74177; 96375; 96374; 99284; Q9967; J2175; J2405; 81003; 81015

== ENCOUNTER 2021-12-04 10:36 | Emergency (ER) | payer OTHER ==
--- OUTSIDE RECORDS SUMMARY | 2021-12-04 10:40 | XMS REPORT | Continuity of Care Document ---
:1960 Author Organization [facility] t Address [address] [place] [address] Care Team Providers Name Role Phone Kimber Hodges Primary Care Physician Tee Attending Clinician Unavailable Carroll Attending Clinician Unavailable PETRA NASH Attending Clinician Unavailable NICHELLE BAH Attending Clinician Unavailable Nichelle Bah MD Attending Clinician Only, Test Attending Clinician Unavailable Doctor Unassigned, Name Attending Clinician Unavailable Janell Bright Attending Clinician Minesh Wilder MD Attending Clinician Caridad Attending Clinician Unavailable NICHELLE BAH Admitting Clinician Unavailable Nichelle Bah MD Admitting Clinician Caridad Admitting Clinician Unavailable Payers Payer Name Policy Type Policy Number Effective Date Expiration Date Janell freitas ELDERNELLIE/[facility] DUAL [id number] 2020 COMP HMO D SNP 00:00:00 [place] [id number] 2020 00:00:00 [facility] [id number] Problems Condition Condition Condition Status Onset Resolution Last Treating Co mments Source Name Details Category Date Date Treatment Clinician Date Other Other Disease Active 2020-09 Univers age-relate age-relate 89 [place] [facility] Obesity Obesity Disease Active Univers (BMI (BMI 3-06 ity of 30-39.9) 30-39.9) 00:00: [place] [facility] Left knee Left knee Disease Active Uni vers pain pain 1-10 ity of 00:00: [place] [facility] Shoulder Shoulder Disease Active Unive rs pain, pain, 5-10 [place] bilateral [place] Foot pain, Foot pain, Disease Active U nivers left left 3-09 ity of 00:00: [place] [facility] Raised Raised Problem Active [place] Prostate da specific Specific Medica l antigen Antigen Group Allergies, Adverse Reactions, Alerts Allergy Allergy Status Severity Reaction(s) Onset Inactive Treating Comm ents Source Name Type Date Date Clinician NO KNOWN Drug Active Univers ALLERGIE Class ity of S [facility] Social History Social Habit Start Date Stop Date Quantity Comments Source Exposure to Not sure [facility] SARS-CoV-2 (event) [facility] Alcohol intake 2021-08-28 2021-08-28 0 /d [facility] 00:00:00 00:00:00 [facility] Tobacco use and 2015-11-15 2015-11-15 Never used [facility] exposure 00:00:00 00:00:00 [facility] Sex Ass[birth year] [facility] 00:00:00 00:00:00 [facility] Smoking Status Start Date Stop Date Source Never Smoker [facility] Medications Ordered Filled Start Stop Current Ordering Indication Dosage Frequency Signature Comments Components Source Medication Medication Date Date Medication? Clinician (SIG) Name Name lidocaine 2020-09- No 1mL 1 mL, Univer s (XYLOCAINE) 11-03 Topical, ity of 2 % jelly 15:00: 13:45 ONCE[place] 1 [place] URO-JET 1 [place] :00 dose, On Medica l mL [facility] 09/02/21 at 0900, Routine, DSU Pre-op lidocaine 2020-09- No 1mL 1 mL, Univer s (XYLOCAINE) 11-03 Topical, ity of 2 % jelly 15:00: 13:45 ONCE, 1 [place] URO-JET 1 00 :00 dose, On Medica l mL [facility] Branch 09/02/21 at 0900, Routine, DSU Pre-op moxifloxaci 2020-09- No PRN, Unive rs n (VIGAMOX) 11-03 Starting ity of 0.5 % 14:25: 17:22 on [facility] ophthalmic 00 :35 09/02/21 at Med ical drops 0825, Branch Until 09/02/21 at 1122, Routine, Intra-op DUOVISC 2020-09 Yes PRN, Univers (DUOVISC 11-03 Starting ity of VISCO 14:16: on [facility] ELASTIC) 3 00 09/02/21 at [facility] ical %-4 %(0.5 0816, Branch mL) 1 % Until (0.55 mL) Discontinu intraocular ed, injection Routine, Intra-op DUOVISC 2020-09- No PRN, Univers (DUOVISC 11-03 Starting ity of VISCO 14:16: 17:22 on [facility] ELASTIC) 3 00 :35 09/02/21 at Med ical %-4 %(0.5 0816, Branch mL) 1 % Until Tue (0.55 mL) 09/02/21 at intraocular 1122, injection Routine, Intra-op lidocaine 2020-09 Yes PRN, Univers 1% (PF) 11-03 Starting ity of (XYLOCAINE) 14:15: on [place] injection 00 09/02/21 at [facility] 0815, Branch Until Discontinu ed, Routine, Intra-op lidocaine 2020-09- No PRN, Univers 1% (PF) 11-03 Starting ity of (XYLOCAINE) 14:15: 17:22 on [place] injection 00 :35 09/02/21 at [facility] 0815, Branch Until 09/02/21 at 1122, Routine, Intra-op EPINEPHrine 2020-09- No PRN, Unive rs 1:1,000 (1 11-03 Starting ity of mg/mL) 14:00: 17:22 on Wed [place] (ADRENALIN) 00 :35 09/02/21 at Ar dical injection 0800, Branch Until Wed09/02/21 at 1122, Routine, Intra-op balanced 2020-09 Yes PRN, [facility] 11-03 Starting ity of no.2 irrig. 13:59: on [place] (BSS[place] 00 09/02/21 at [place] [id number], Branch solution Until Discontinu ed, Routine, Intra-op balanced 2020-09- No PRN, [facility] 11-03 Starting ity o f no.2 irrig. 13:59: 17:22 on Wed [place] (BSS) 00 :35 09/02/21 at [place] [id number], Branch solution Until Wed09/02/21 at 1122, Routine, [...] mL lactated 2020-09- No 1000mL at 42 [facility] rs ringers IV 11-03 mL/hr, ity of infusion 13:15: 13:01 1,000 mL, [place] 1,000 mL 00 :00 IV Medical Infusion, Branch ONCE, 1 dose, On Wed09/02/21 at 0715, Routine, DSU Pre-op lactated 2020-09- No 1000mL at 42 Unive rs ringers IV 11-03-07 mL/hr, ity of infusion 13:15: 13:01 1,000 [...] No 75ug Take 75 Un jovi ne 11-03- mcg by ity of (TIROSINT) 09:17: 00:00 mouth [place] 75 mcg 34 :00 daily. Medical capsule Branch losartan 2020-09- No 100mg Take 100 Uni vers (COZAAR) 11-03-07 mg by ity of 100 mg 09:17: [...] tablet times Branch daily as needed. pravastatin 2020-09 No 40mg Take 40 mg Univers (PRAVACHOL) 11-03 by mouth ity of 40 mg 09:17: 00:00 at [place] tablet 34 :00 bedtime. Medical Branch metFORMIN 2020-09- No 500mg Take 500 Un jovi (GLUCOPHAGE 11-03- mg by ity of ) 500 mg 09:17: 00:00 mouth 2 [place] tablet 34 :00 (two) Medical times Branch daily with meals. Levothyroxi 2020-09 No 75ug Take 75 Un jovi ne 11-03 mcg by ity of (TIROSINT) 09:17: 00:00 mouth [place] 75 mcg 34 :00 daily. Medical capsule Branch losartan 2020-09- No 100mg Take 100 Uni vers (COZAAR) 11-03 mg by ity of 100 mg 09:17: 00:00 mouth [place] tablet 34 :00 daily. Medical Branch aspirin 81 2020-09 81mg Take 81 mg Univers mg EC [...] 300mg Take 300 U nivers 300 mg 11-03-07 mg by ity of capsule 09:17: 00:00 mouth. [place] 33 :00 Medical Branch losartan 2020-09- No [...] by mouth. ity of tablet 09:17: 00:00 [place] 33 :00 Medical Branch LOVASTATIN 2020-09- No [...] mouth. ity of 300 mg 09:17: 00:00 [place] tablet 33 :00 Medical Branch gabapentin 2020-09- No 300mg Take 300 U nivers 300 mg 11-03-07 mg by ity of capsule 09:17: 00:00 mouth. [place] 33 :00 Medical Branch losartan 2020-09- No 1 (one) Unive rs 100 mg 2-07 time each ity of tablet 09:17: 00:00 day [place] 33 :00 Medical Branch methocarbam 2020-09- No 750mg Take 750 Univers ol 750 mg 11-03-07 mg by ity of tablet 09:17: 00:00 mouth. [place] 33 :00 Medical Branch pravastatin 2020-09- 40mg Take 40 mg Univers 40 mg [...] ity of (PLAVIX 12:25: daily. [place] ORAL) [address] [place] [address] Branch LOVASTATIN 2020-09 Yes Take by Uni vers ORAL 2-02 mouth. ity of 12:25: [address] [place] [address] gabapentin 2020-09 Yes Take by Uni vers (GRALISE) 2-02 mouth. ity of 300 mg 12:25: [place] tablet [address] [place] [address] Branch losartan 2020-09 Yes 1 (one) Univer s 100 mg 2-02 time each ity of tablet 12:25: day [address] [place] [address] pravastatin 2020-09 Yes 40mg Take 40 mg Univers 40 mg 2-02 by mouth. ity of tablet 12:25: [address] [place] [address] Levothyroxi 2020-09 Yes 75ug Take 75 Uni [...] ity of (PLAVIX 12:25: daily. [place] ORAL) [address] [place] [address] LOVASTATIN 2020-09 Yes Take by Uni vers ORAL 2-02 mouth. ity of 12:25: [address] [place] [address] gabapentin 2020-09 Yes Take by Uni vers (GRALISE) 2-02 mouth. ity of 300 mg 12:25: [place] tablet [address] [place] [address] losartan 2020-09 Yes 1 (one) Univer s 100 mg 2-02 time each ity of tablet 12:25: day [place] [address] Medical Branch pravastatin 2020-09 Yes 40mg Take 40 mg Univers 40 mg 2-02 by mouth. ity of tablet 12:25: [place] [address] Medical Branch pravastatin 2020-09 Yes 40mg Take [...] by mouth ity of tablet 13:02: daily. [address] Branch gabapentin 2020-09 Yes 300mg Take 300 Un jovi (NEURONTIN) 1-17 mg by ity of 300 mg 13:02: mouth 3 [place] capsule 40 (three) Medical times Branch daily. CLOPIDOGREL 2020-09 Yes 75mg Take 75 mg Univers BISULFATE 1-17 by mouth ity of (PLAVIX 13:02: daily. [place] ORAL) 40 Medical Branch gabapentin 2020-09 Yes Take by Uni vers (GRALISE) 1-17 mouth. ity of 300 mg 13:02: [place] tablet 40 Medical Branch gabapentin 2020-09 Yes 300mg Take 300 Un jovi 300 mg 1-17 mg by ity of capsule 13:02: mouth. [address] losartan 2020-09 Yes 1 (one) Univer s 100 mg 1-17 time each ity of tablet 13:02: day [address] methocarbam 2020-09 Yes 750mg Take 750 U nivers ol 750 mg 1-17 mg by ity of tablet 13:02: mouth. [address] pravastatin 2020-09 Yes 40mg Take 40 mg Univers 40 mg 1-17 by mouth. ity of tablet 13:02: [address] pravastatin 2020-09 Yes 40mg Take 40 [...] by mouth ity of tablet 13:02: daily. [address] gabapentin 2020-09 Yes 300mg Take 300 Un jovi 300 mg 1-17 mg by ity of capsule 13:02: mouth. [address] Branch methocarbam 2020-09 Yes 750mg Take 750 U nivers ol 750 mg 1-17 mg by ity of tablet 13:02: mouth. [address] Branch pravastatin 2020-09 Yes 40mg Take 40 mg Univers (PRAVACHOL) 1-17 by mouth ity of 40 mg 13:02: at [place] tablet 40 bedtime. Medical Branch losartan 2020-09 Yes 100mg Take 100 Univ ers (COZAAR) 1-17 mg by ity of 100 mg 13:02: mouth [place] tablet 40 daily. Medical Branch aspirin 81 2020-09 Yes 81mg Take 81 mg U nivers mg EC 1-17 by mouth ity of tablet 13:02: daily. [address] gabapentin 2020-09 Yes 300mg Take 300 Un jovi 300 mg 1-17 mg by ity of capsule 13:02: mouth. [address] methocarbam 2020-09 Yes 750mg Take 750 U nivers ol 750 mg 1-17 mg by ity of tablet 13:02: mouth. [address] cyclobenzap 2020-09 Yes [id number] 10mg Take 1 Univers rine 10 mg 1-17 tablet by ity of tablet 00:00: mouth 3 [place] 00 (three) Medical times Branch daily. cyclobenzap 2020-09 Yes [id number] 10mg Take 1 Univers rine 10 mg 1-17 tablet by ity of tablet 00:00: mouth 3 [place] 00 (three) Medical times Branch daily. cyclobenzap 2020-09 Yes [id number] 10mg Take 1 Univers rine 10 mg 1-17 tablet by ity of tablet 00:00: mouth 3 [place] 00 (three) Medical times Branch daily. cyclobenzap 2020-09 [id number] 10mg Take 1 Univers rine 10 mg 1-17 12-07 tablet by ity of tablet 00:00: 00:00 mouth 3 [place] 00 :00 (three) Medical times Branch daily. cyclobenzap 2020-09- No [id number] 10mg Take 1 Univers rine 10 mg 1-17 12-07 tablet by ity of tablet 00:00: 00:00 mouth 3 [place] 00 :00 (three) Medical times Branch daily. diclofenac 2020-0 Yes [id number] 75mg Take 1 U nivers 75 mg EC 7-16 tablet by ity of tablet 00:00: mouth 2 [place] 00 (two) Medical times Branch daily with meals. diclofenac 2020-0 Yes [id number] 75mg Take 1 U nivers 75 mg EC 7-16 tablet by ity of tablet 00:00: mouth 2 [place] 00 (two) Medical times Branch daily with meals. diclofenac 2020-0 Yes [id number] 75mg Take 1 U nivers 75 mg EC 7-16 tablet by ity of tablet 00:00: mouth 2 [place] 00 (two) Medical times Branch daily with meals. diclofenac 2019-2020- No [id number] 75mg Take 1 Univers 75 mg EC 7-16 12-07 tablet by ity o f tablet 00:00: 00:00 mouth 2 [place] 00 :00 (two) Medical times Branch daily with meals. diclofenac 2019-0 2020- No [id number] 75mg Take 1 Univers 75 mg EC 7-16 12-07 tablet by ity o f tablet 00:00: 00:00 mouth 2 [place] 00 :00 (two) Medical times Branch daily with meals. ALCOHOL 2020-0 Yes Univers PREP PADS 7-15 ity of PadM 00:00: [place] 00 Medical Branch ALCOHOL 2020-0 Yes Univers PREP PADS 7-15 ity of PadM 00:00: [place] 00 Medical Branch ALCOHOL 2020-0 Yes Univers PREP PADS 7-15 ity of PadM 00:00: [place] 00 Medical Branch ALCOHOL 2020-0 202- No Univers PREP PADS 7-15 12-07 ity of PadM 00:00: 00:00 [place] 00 :00 Medical Branch ALCOHOL 2020-0 202- No Univers PREP PADS 7-15 12-07 ity of PadM 00:00: 00:00 [place] 00 :00 Medical Branch DICLOFENAC 2020-0 Yes 75mg 75 mg. Unive rs SODIUM ORAL 6-06 ity of 00:00: [place] 00 Medical Branch DICLOFENAC 2020-0 Yes 75mg 75 mg. Unive rs SODIUM ORAL 03-02 ity of 00:00: [place] 00 Medical Branch DICLOFENAC 2020-0 Yes 75mg 75 mg. Unive rs SODIUM ORAL 03-02 ity of 00:00: [place] 00 Medical Branch DICLOFENAC 2020-0 1- No 75mg 75 mg. Univ ers SODIUM ORAL 03-02 ity of 00:00: 00:00 [place] 00 :00 Medical Branch DICLOFENAC 2020-0 1- No 75mg 75 mg. Univ ers SODIUM ORAL 03-02 ity of 00:00: 00:00 [place] 00 :00 Medical Branch tamsulosin 2020-0 Yes Univers 0.4 mg 24 5-11 ity of hr capsule 00:00: [place] 00 Medical Branch tamsulosin 2020-0 Yes Univers 0.4 mg 24 5-11 ity of hr capsule 00:00: [place] 00 Medical Branch tamsulosin 2020-0 Yes Univers 0.4 mg 24 5-11 ity of hr capsule 00:00: [place] [address] Medical Branch tamsulosin 2020-0 1- No Univer s 0.4 mg 24 5-08 08-07 ity of hr capsule 00:00: 00:00 [place] 00 :00 Medical Branch tamsulosin 2020-0 1- No Univer s 0.4 mg 24 5-08 08-07 ity of hr capsule 00:00: 00:00 [place] 00 :00 Medical Branch losartan 2020-0 Yes Univers 100 mg 5-05 ity of tablet 00:00: [place] 00 Medical Branch losartan 2020-0 Yes Univers 100 mg 5-05 ity of tablet 00:00: [place] 00 Medical Branch losartan 2020-0 Yes Univers 100 mg 5-05 ity of tablet 00:00: [place] 00 Medical Branch losartan 2020-0 2021- No Univers 100 mg 5-05 12-07 ity of tablet 00:00: 00:00 [place] 00 :00 Medical Branch losartan 2020-0 2021- No Univers 100 mg 5-05 12-07 ity of tablet 00:00: 00:00 [place] 00 :00 Medical Branch finasteride 2020-0 Yes Univer s 5 mg tablet 4-19 ity of 00:00: [place] [address] Medical Branch finasteride 2020-0 Yes Univer s 5 mg tablet 4-19 ity of 00:00: [place] [address] Medical Branch finasteride 2020-0 Yes Univer s 5 mg tablet 01-13 ity of 00:00: [place] 00 Medical Branch finasteride 2020-0 2020- No Unive rs 5 mg tablet 01-13 ity of 00:00: 00:00 [place] 00 :00 Medical Branch finasteride 2020-0 2020- No Unive rs 5 mg tablet 01-13 ity of 00:00: 00:00 [place] 00 :00 Medical Branch ACCU-CHEK 2020-0 Yes Univers GUIDE L1-L2 4-16 ity of CTRL PETER 00:00: [facility] 00 Medical Branch ACCU-CHEK 2020-0 Yes Univers GUIDE L1-L2 4-16 ity of CTRL PETER 00:00: [facility] 00 Medical Branch ACCU-CHEK 2020-0 Yes Univers GUIDE L1-L2 4-16 ity of CTRL PETER 00:00: [facility] 00 Medical Branch ACCU-CHEK 2020-0 2020- No Univers GUIDE L1-L2 4-16 12- ity of CTRL PETER 00:00: 00:00 [facility] 00 :00 Medical Branch ACCU-CHEK 2020-0 2020- No Univers GUIDE L1-L2 4-16 12- ity of CTRL PETER 00:00: 00:00 [facility] 00 :00 Medical Branch allopurinoL 2020-0 Yes Univer s 100 mg 1-13 ity of tablet 00:00: [place] 00 Medical Branch allopurinoL 2020-0 Yes Univer s 100 mg 1-13 ity of tablet 00:00: [place] 00 Medical Branch allopurinoL 2020-0 Yes Univer s 100 mg 1-13 ity of tablet 00:00: [place] 00 Medical Branch allopurinoL 2020-0 2020- No Unive rs 100 mg 1-13 12- ity of tablet 00:00: 00:00 [place] 00 :00 Medical Branch allopurinoL 2020-0 2020- No Unive rs 100 mg 1-13 12- ity of tablet 00:00: 00:00 [place] 00 :00 Medical Branch finasteride 2019-0 Yes 5mg Take 5 mg U nivers 5 mg tablet 7-27 by mouth. ity of 00:00: [place] 00 Medical Branch finasteride 2019-0 Yes 5mg Take 5 mg U nivers 5 mg tablet 7-27 by mouth. ity of 00:00: Medical Branch finasteride Yes 5mg Take 5 mg U nivers 5 mg tablet 04-22 by mouth. ity of 00:00: Medical Branch finasteride 2020- No 5mg Take 5 mg Univers 5 mg tablet 04-22 by mouth. it y of 00:00: 00:00 Medical Branch finasteride 2020- No 5mg Take [...] Medical HOURS Branch NEEDED FOR PAIN acetaminoph 2018-2020- No TAKE 2 Uni vers en-codeine 7- 12-07 TABLETS BY it y of 300-30 mg 00:00: 00:00 MOUTH [place] tablet 00 :00 EVERY 6 Medical HOURS Branch NEEDED FOR PAIN acetaminoph 2018-2020- No TAKE 2 Uni vers en-codeine 7- 12-07 TABLETS BY it y of 300-30 mg 00:00: 00:00 MOUTH [place] tablet 00 :00 EVERY 6 Medical HOURS Branch NEEDED FOR PAIN clopidogreL 2019-0 Yes 75mg Take 75 mg Univers 75 mg 6-22 by mouth. ity of tablet 00:00: [place] 00 Medical Branch clopidogreL 2018-0 Yes 75mg Take 75 mg Univers 75 mg 6-22 by mouth. ity of tablet 00:00: 00 Medical Branch clopidogreL 2018-0 Yes 75mg Take 75 mg Univers 75 mg 6-22 by mouth. ity of tablet 00:00: 00 Medical Branch clopidogreL 2018-0 2020- No 75mg Take 75 mg Univers 75 mg 6-22 12-07 by mouth. ity of tablet 00:00: 00:00 [place] 00 :00 Medical Branch clopidogreL 2018-0 2020- No 75mg Take 75 mg Univers 75 mg 6-22 12-07 by mouth. ity of tablet 00:00: 00:00 [place] 00 :00 Medical Branch fluconazole 2017-0 Yes 100mg Take 1 Uni vers (DIFLUCAN) 3-20 tablet by ity of 100 mg 00:00: mouth [place] tablet 00 daily. Medical Branch terbinafine 2017- Yes Apply to U nivers HCl 3-20 area(s) 2 ity of (LAMISIL 00:00: (two) [place] AT) 1 % 00 times Medical cream daily. Branch fluconazole 2017-0 Yes 100mg Take 1 Uni vers (DIFLUCAN) 3-20 tablet by ity of 100 mg 00:00: mouth [place] tablet 00 daily. Medical Branch terbinafine 0 Yes Apply to U nivers HCl 3-20 area(s) 2 ity of (LAMISIL 00:00: (two) [place] AT) 1 % 00 times Medical cream daily. Branch fluconazole 2017-0 Yes 100mg Take 1 Uni vers (DIFLUCAN) 3-20 tablet by ity of 100 mg 00:00: mouth [place] tablet 00 daily. Medical Branch terbinafine Yes Apply to U nivers HCl 20 area(s) 2 ity of (LAMISIL 00:00: (two) [place] AT) 1 % 00 times Medical cream daily. Branch fluconazole 2020- No 100mg Take 1 Un jovi (DIFLUCAN) 12-14 tablet by ity of 100 mg 00:00: 00:00 mouth [place] tablet 00 :00 daily. Medical Branch terbinafine 2020- No Apply to Univers HCl -09-02 area(s) 2 ity of (LAMISIL 00:00: 00:00 (two) [place] AT) 1 % 00 :00 times Medical cream daily. Branch fluconazole 2020- No 100mg Take 1 Un jovi (DIFLUCAN) 12-14 tablet by ity of 100 mg 00:00: 00:00 mouth [place] tablet 00 :00 daily. Medical Branch terbinafine 2020- No Apply to Univers HCl 12-14 area(s) 2 ity of (LAMISIL 00:00: 00:00 (two) [place] AT) 1 % 00 :00 times Medical cream daily. Branch traMADOL 2020- No 50mg Take 1 Univer s (ULTRAM) 50 06-16 tablet by it y of mg tablet 00:00: 00:00 mouth [place] 00 :00 every 6 Medical (six) Branch hours as needed for Pain (scale 7-10). traMADol 50 2020- No 50mg Take 50 mg Univers mg tablet 06-1617 by mouth. ity of 00:00: 00:00 [place] [...] of 14:33: [place] 36 Medical Branch lovastatin 2017-0 Yes 40mg Take 40 mg [...] by mouth ity of tablet 14:33: at [place] 36 bedtime. Medical Branch pentazocine 2017- Yes 1{tbl} Take 1 Un jovi -naloxone 2-21 tablet by ity o f 50-0.5 mg 00:00: mouth [place] tablet 00 every 6 Medical (six) Branch hours as needed for Pain. pentazocine 2017-0 Yes 1{tbl} Take 1 Un jovi -naloxone 2-21 tablet by ity o f 50-0.5 mg 00:00: mouth [place] tablet 00 every 6 Medical (six) Branch hours as needed for Pain. pentazocine 2017-0 Yes 1{tbl} Take 1 Un jovi -naloxone 2-21 tablet by ity o f 50-0.5 mg 00:00: mouth [place] tablet 00 every 6 Medical (six) Branch hours as needed for Pain. pentazocine 2017-2020- No 1{tbl} Take 1 U nivers -naloxone [...] Branch hours as needed for Pain. methylPREDN 2017-0 Yes 84mg Take 21 Uni [...] tablets CTIONS. Branch follow package directions methylPREDN 2016-2020- No 84mg Take 21 Un jovi ISolone [...] tablets CTIONS. Branch follow package directions cyclobenzap 2016-0 Yes 10mg Take 1 Univ ers rine 5-10 tablet by ity of (FLEXERIL) 00:00: mouth 3 [place] 10 mg 00 (three) Medical tablet times Branch daily. cyclobenzap 2016-0 Yes 10mg Take 10 mg Univers rine 10 mg 5-10 by mouth. ity of tablet 00:00: [place] [facility] cyclobenzap 0 Yes 10mg Take 1 Univ ers rine 5-10 tablet by ity of (FLEXERIL) 00:00: mouth 3 [place] 10 mg 00 (three) Medical tablet times Branch daily. cyclobenzap 0 Yes 10mg Take 10 mg Univers rine 10 mg 5-10 by mouth. ity of tablet 00:00: [place] [facility] cyclobenzap 2016-0 Yes 10mg Take 1 Univ ers rine 5-10 tablet by ity of (FLEXERIL) 00:00: mouth 3 [place] 10 mg 00 (three) Medical tablet times Branch daily. cyclobenzap 20160 Yes 10mg Take 10 mg Univers rine 10 mg 5-10 by mouth. ity of tablet 00:00: [place] [facility] cyclobenzap 2015-2020- No 10mg Take 1 Uni vers rine 5-10 12-07 tablet by ity of (FLEXERIL) 00:00: 00:00 mouth 3 [place] 10 mg 00 :00 (three) Medical tablet times Branch daily. cyclobenzap 2016-0 2020- No 10mg Take 10 mg Univers rine 10 mg 5-10 09-02 by mouth. ity of tablet 00:00: 00:00 [place] 00 :00 Medical Branch cyclobenzap 2015-2020- No 10mg Take 1 Uni vers rine 5-10 - tablet by ity of (FLEXERIL) 00:00: 00:00 mouth 3 [place] 10 mg 00 :00 (three) Medical tablet times Branch daily. cyclobenzap 2020- No 10mg Take 10 mg Univers rine 10 mg 5-10 09-02 by mouth. ity of tablet 00:00: 00:00 [place] 00 :00 Medical Branch ONETOUCH Yes Univers ULTRA TEST 5-02 ity of strip 00:00: [place] 00 Medical Branch ONETOUCH Yes Univers ULTRA TEST 5- ity of strip 00:00: [place] 00 Medical Branch ONETOUCH Yes Univers ULTRA TEST - ity of strip 00:00: [place] 00 Medical Branch ONETOUCH 2015-2020- No Univers ULTRA TEST 01-26 ity of strip 00:00: 00:00 [place] 00 :00 Medical Branch ONETOUCH 2020- No Univers ULTRA TEST 01-26 ity of strip 00:00: 00:00 [place] 00 :00 Medical Branch diclofenac 2016-0 Yes 75mg Take 1 Tab U nivers (VOLTAREN) 2-19 by mouth 2 ity of 75 mg EC 00:00: (two) [place] tablet 00 times Medical daily with Branch meals. diclofenac 0 Yes 75mg Take 1 Tab U nivers (VOLTAREN) 2-19 by mouth 2 ity of 75 mg EC 00:00: (two) [place] tablet 00 times Medical daily with Branch meals. diclofenac Yes 75mg Take 1 Tab U nivers (VOLTAREN) 2-19 by mouth 2 ity of 75 mg EC 00:00: (two) [place] tablet 00 times Medical daily with Branch meals. diclofenac 2020- No 75mg Take 1 Tab Univers (VOLTAREN) 2-19 12- by mouth 2 it y of 75 mg EC 00:00: 00:00 (two) [place] tablet 00 :00 times Medical daily with Branch meals. diclofenac 2015-2020- No 75mg Take 1 Tab Univers (VOLTAREN) 2-19 12- by mouth 2 it y of 75 mg EC 00:00: 00:00 (two) [place] tablet 00 :00 times Medical daily with Branch meals. levothyroxi Yes Comments: U nivers ne 75 mcg 05-15 | Filled ity of tablet 00:00: Date: Aug Medical 10:10AM | Branch Patient Notes: TAKE ONE TABLET BY MOUTH ONCE DAILY levothyroxi Yes Comments: U nivers ne 75 mcg 05-15 | Filled ity of tablet 00:00: Date: Aug Medical 10:10AM | Branch Patient Notes: TAKE ONE TABLET BY MOUTH ONCE DAILY levothyroxi Yes Comments: U nivers ne 75 mcg 05-15 | Filled ity of tablet 00:00: Date: Aug Medical 10:10AM | Branch Patient Notes: TAKE ONE TABLET BY MOUTH ONCE DAILY levothyroxi 2020- No Comments: Univers ne 75 mcg 05-15 | Filled ity o f tablet 00:00: 00:00 Date: Aug Medical 10:10AM | Branch Patient Notes: TAKE ONE TABLET BY MOUTH ONCE DAILY levothyroxi 2020- No Comments: Univers ne 75 mcg 05-15 | Filled ity o f tablet 00:00: 00:00 Date: Aug Medical 10:10AM | Branch Patient Notes: TAKE ONE TABLET BY MOUTH ONCE DAILY Tamsulosin Tamsulosin Yes [place] [address] [facility] HCl HCl Brooke L[facility] acetaminoph acetaminoph No acetaminop [place] [...] Source Heart rate 2021-09-02 14:58:00 66 /min [facility] Respiratory rate 2021-09-02 14:58:00 23 /min [facility] Oxygen saturation in 2021-09-02 14:58:00 97 /min [facility] blood by [facility] Pulse oximetry Branch Systolic blood 2021-09-02 14:55:00 167 mm[Hg] [facility] Diastolic blood 2021-09-02 14:55:00 98 mm[Hg] [facility]ive [facility] [place] [facility] Body temperature 2021-09-02 14:36:00 36.28 Annmarie [facility] Body height 2021-08-29 19:19:00 175.3 cm [facility] Body weight 2021-08-29 19:19:00 96.9 kg [facility] BMI 2021-08-29 19:19:00 31.53 kg/m2 [facility] Systolic blood 2021-09-02 12:43:00 172 mm[Hg] [facility] Diastolic blood 2021-09-02 12:43:00 99 mm[Hg] [facility] 2021-09-02 12:43:00 71 /min [facility] Body temperature 2021-09-02 12:43:00 36.61 Annmarie [facility] Respiratory rate 2021-09-02 12:43:00 18 /min [facility] Oxygen saturation in 2021-09-02 12:43:00 99 /min [facility] of Arterial blood by [facility] Pulse oximetry [place] Body height 2021-08-29 19:19:00 175.3 cm [facility] Body weight 2021-08-29 19:19:00 96.9 kg [facility] BMI 2021-08-29 19:19:00 31.53 kg/m2 Universi ty [facility] Systolic blood 2021-08-13 19:02:00 166 mm[Hg] [facility] Diastolic blood 2021-08-13 19:02:00 92 mm[Hg] Unive [facility] Heart rate 2021-08-13 19:02:00 71 /min Universi ty [facility] Respiratory rate 2021-08-13 19:02:00 20 /min [facility] Body height 2021-08-13 19:02:00 175.3 cm Universi ty [facility] Body weight 2021-08-13 19:02:00 101.016 kg Universi ty [facility] BMI 2021-08-13 19:02:00 32.89 kg/m2 Universi ty [facility] Oxygen saturation in 2021-08-13 19:02:00 98 /min [facility] Arterial blood by [facility] Pulse oximetry [place] Procedures Procedure Date / Time Performing Source Performed Clinician PHACOEMULSIFICATION OF 2021-09-[address] [facility] CATARACT WITH INTRAOCULAR 13:39:00 [facility] LENS IMPLANT POCT GLUCOSE(AGE >30DAYS) 2021-09-02 Braxton Farias [facility] 13:00:00 [facility] POCT GLUCOSE(AGE >30DAYS) 2021-09-02 Dinora [facility] 13:00:00 [facility] POCT GLUCOSE (AUTOMATED) 2021-09-02 Che Bah [facility] 12:52:00 Medical [place] ASSIGNMENT OF BENEFITS 2021-09-01 Doctor Unassigned, [facility] 14:57:17 [place] [facility] EXTERNAL PROVIDER RECORDS 2021-08-18 Doctor Unassigned, [facility] 06:01:00 [facility] EXTERNAL PROVIDER RECORDS 2021-08-18 Doctor Unassigned, [facility] [place] [facility] [address], urogram 2018-07-07 [facility] Plan of Care Planned Activity Planned Date Details Comments Source Diagnostic Test 2018-07-07 cytology, urine [facility] Pending 00:00:00 [code = cytology, Group urine] Encounters Start End Encounter Admission Attending Care Care Encounter Source Date/Time Date/Time Type Type Clinicians Facility Department ID 2021-10-22 [facility] [id number] [facility] [address] 14:27:24 Maira 82458 [facility] 2021-10-22 [facility] [id number] [address] 14:18:00 Maira 27996 [facility] 2021-10-22 [facility] [id number] 13:35:45 Regina 05308 [facility] 2021-10-22 [facility] [id number] 12:41:58 Regina 65636 [facility] 2021-10-22 [facility] [id number] 12:40:52 Regina 05356 [facility] 2021-10-22 [facility] [id number] 12:12:33 Regina 53194 [facility] 2021-10-22 [facility] [id number] 11:56:49 Regina 26137 [facility] 2021-10-22 [facility] [id number] 11:56:09 Regina 86904 [facility] 2021-10-22 [facility] [id number] 11:21:52 Regina 08124 [facility] 2021-10-22 Outpatient [place], STLMLC STLMLC [id number] 11:07:15 Regina 74101 [facility] 2021-10-22 Outpatient [place], STLMLC STLMLC [id number] 11:06:53 Regina 29666 [facility] 2021-10-22 Outpatient [place], STLMLC STLMLC [id number] 10:59:53 Regina 86614 [facility] 2021-11-20 2021-11-20 ambulatory [facility]LMLC [facility] [id number] [facility]00 [facility] 2021-10-21 2021-10-21 ambulatory [facility]LMLC [facility] [id number] [facility] 2021-10-02 2021-10-02 ambulatory [facility]LMLC [facility] [id number] [facility] 2021-09-26 2021-09-26 Outpatient SAAD, [facility]BL [facility]BL [id number] [facility] 08:19:00 13:21:00 [place] 2021-09-12 2021-09-12 ambulatory STLMLC [facility] [id number] [facility] 2021-09-08 2021-09-08 ambulatory STLMLC [facility] [id number] [facility] 2021-09-02 2021-09-02 [facility] [id number] Univers 06:24:00 09:17:00 CHE chinchilla [facility] 2021-09-02 2021-09-02 [facility] [id number] Univers 06:24:00 09:17:00 Maddy Morrow [place] [id number] amor [facility] [id number] [id number] [facility] 020 Branch 2021-09-02 2021-09-02 Surgery Niurka [facility] [id number] Univers 07:30:00 08:31:00 Che Nichelle CORDERO [id number] [id number] [id number] [facility] 020 Branch 2021-09-01 2021-09-01 Outpatient R [facility] [id number] Univers 09:45:00 09:45:00 [id number] itsaleem [facility] 2021-09-01 2021-09-01 Outpatient R NIURKA [facility] [id number] Univers 09:45:00 09:45:00 CHE chinchilla [facility] 2021-09-01 2021-09-01 Laboratory Only, Adc Test [facility] [id number] Univers 08:58:02 09:13:02 Only Che Bah [id number]. 10 [id number] [id number] [facility] 353 Branch 2021-09-01 2021-09-01 Orders Doctor MEGAN [id number] Univers 00:00:00 00:00:00 Only Unassigned, ANASTASIA [id number] [facility] [id number] [place] [id number] [facility] 009 Branch 2021-09-01 2021-09-01 ambulatory [facility]LMLC [facility] [id number] [facility] 2021-08-26 2021-08-26 ambulatory [facility]LMLC [facility] [id number] [facility]00 [facility] 2021-08-19 2021-08-19 ambulatory [facility]LMLC [facility] [id number] [facility]00 [facility] 2021-08-13 2021-08-13 Office [facility] [id number] Univers 12:47:28 13:02:28 Visit [facility] [id number] y genet [facility] [id number] [place] as CHELLE?BLEA [id number] [facility] [address] MEDICAL OFFICE BUILDING 2021-07-29 2021-07-29 ambulatory [facility]MLC [facility] [id number] [facility] 2021-07-25 2021-07-25 Outpatient [facility]MLC [facility] [id number] [facility] 2021-07-21 2021-07-21 Outpatient [facility] [id number] [facility] 2021-07-11 2021-07-11 Outpatient [facility]MLC [facility] [id number] [facility]00 [facility] 2021-07-11 2021-07-11 Outpatient [facility] [id number] [facility]00 [facility] 2021-06-29 2021-06-29 Outpatient [facility] [id number] [facility] 2021-06-24 2021-06-24 Outpatient [facility] [id number] [facility]00 [facility] 2021-06-06 2021-06-06 Outpatient [facility] [id number] [facility] 2021-05-05 2021-05-05 Outpatient [facility]MLC [facility] [id number] [facility] 2021-04-30 2021-04-30 Outpatient [facility]LMLC [facility] [id number] [facility]00 [facility] 2021-04-30 2021-04-30 Outpatient [facility]LMLC [facility] [id number] [facility]00 [facility] 2021-04-25 2021-04-25 Outpatient STLMLC [facility] [id number] [facility] 2021-04-03 2021-04-03 Outpatient [facility]LMLC [facility] [id number] [facility] 2021-01-24 2021-01-24 Outpatient [facility] [id number] [facility] 2021-01-17 2021-01-17 Outpatient [facility] [id number] [facility]00 [facility] 2021-01-13 2021-01-13 Outpatient [facility] [id number] [facility]00 [facility] 2021-01-10 2021-01-10 Outpatient [facility]MLC [facility] [id number] [facility]00 [facility] 2020-12-31 2020-12-31 Outpatient [facility]ML[facility] [id number] [facility] 2020-12-25 2020-12-25 Office [facility] [id number] 12:51:24 13:25:03 Visit [facility] [id number] [facility] [id number] [facility] [id number] [address] 2020-12-23 2020-12-23 Outpatient [facility]LMLC ST[facility] [id number] [facility] 2020-12-21 2020-12-21 Outpatient STLMLC [facility] [id number] [facility] 2020-12-19 2020-12-19 Outpatient STLMLC [facility]ML[facility] [id number] [facility] 2020-12-17 2020-12-17 Outpatient [facility]LMLC [facility]MLC [id number] [facility]00 [facility] 2020-12-17 2020-12-17 Outpatient [facility]LMLC [facility] [id number] [facility]00 [facility] 2020 2020 Outpatient [facility] [id number] [facility] 2020-12-09 2020-12-09 Outpatient STLMLC [facility]LML[facility] [id number] [facility] 2020-11-07 2020-11-07 Outpatient STLMLC [facility]LML[facility] [id number] [facility] 2020-11-04 2020-11-04 Outpatient STLMLC [facility]LMLC [id number] [facility] 2020-11-04 2020-11-04 Outpatient STLMLC [facility]LML[facility] [id number] [facility] 2020-10-15 2020-10-15 Outpatient SAAD, [id number] [facility] 07:11:00 12:00:00 [place] 2020-09-09 2020-09-09 Outpatient STLMLC STLMLC [id number] [facility] 2020-08-14 2020-08-14 Outpatient Young_J MMG MMG [id number] [place] 02:37:00 02:37:00 [facility] 2020-07-16 2020-07-16 Outpatient STLMLC STLMLC [id number] [facility]00 [facility] Outpati ent Clinics 2020-05-06 2020-05-06 [facility] [id number] [facility] 10:52:00 10:52:00 t [facility] Medicine Outpati ent Clinics 2020-04-10 2020-04-10 [facility] [id number] 13:19:00 13:19:00 t [facility] Medicine Medicine Outpati ent Clinics 2020-04-08 2020-04-08 [facility] [id number] 11:08:00 11:08:00 [facility] Medicine Outpati ent Clinics 2020-04-05 2020-04-05 [facility] [id number] 18:34:00 18:34:00 t [facility] Medicine Outpati ent Clinics 2020-01-09 2020-01-09 [facility] [id number] 14:23:00 14:23:00 t [facility] Medicine Outpati ent Clinics 2020-01-08 2020-01-08 [facility] [id number] [facility] 08:00:00 08:00:00 [facility] Medicine Outpati ent Clinics 2019-11-22 2019-11-22 [facility] [id number] 19:45:00 19:45:00 t [facility] Medicine Outpati ent Clinics 2019-11-08 2019-11-08 [facility] [id number] 09:12:00 09:12:00 [facility] Medicine Outpati ent Clinics 2019-11-07 2019-11-07 [facility] [id number] 08:17:00 08:17:00 [facility] Medicine Outpati ent Clinics 2019-10-19 2019-10-19 [facility] [id number] 15:57:00 15:57:00 t [facility] Medicine l Medicine Outpati ent Clinics 2019-10-18 2019-10-18 [facility] [id number] 09:24:00 09:24:00 t [facility] Medicine l Medicine Outpati ent Clinics 2019-10-17 2019-10-17 [facility] [id number] 09:00:00 09:00:[address] [facility] Medicine l Medicine Outpati ent Clinics 2019-10-09 2019-10-09 [facility] [id number] 10:27:00 10:27:00 t [facility] Medicine l Medicine Outpati ent Clinics 2019-10-09 2019-10-09 [facility] [id number] 09:00:00 09:00:00 [facility] Medicine Medicine Outpati ent Clinics 2018-08-08 2018-08-08 Saravanan [facility] [place] - [id number] M atagor 00:00:00 00:00:00 DO Terrance: [facility] hasmukh ramon [address] [place] [address] - [address] [place] [address] , Ph. [phone] 2018-08-04 2018-08-04 Jose Garcia [facility] [place] - [id number] M atagor 00:00:00 00:00:00 MD Bobbi: [facility] batres [address] [place] [address] 1, [place] [address] , Ph. 2018-07-07 2018-07-07 Jose Garcia MM [place] - [id number] M atagor 00:00:00 00:00:00 MD Bobbi: [facility] batres [address] [place] [address] 1, [place] [address] , Ph. Results Test Description Test Time Test Comments Results Result Comments Source POCT GLUCOSE (AUTOMATED) 2021-09-02 16:40:15 Test Item Value Reference Range Interpretation Comme nts POCT GLU (test code = [id number]) 127 mg/dL 70-110 H Lab Interpretation (test code = 59389-3) Abnormal [facility] [id number] 13:00:00 Test Item Value Reference Range Interpretation Comments POCT Glu (age>30days) (test code = 127 mg/dL 70-110 A 3342) Lab Interpretation (test code = Abnormal 69957-9) [facility] [id number] 13:00:00 Test Item Value Reference Range Interpretation Comments POCT Glu (age>30days) (test code = 127 mg/dL 70-110 A 3342) Lab Interpretation (test code = Abnormal 34191-2) [facility]"
[2021-12-04] MEDS ORDERED: ONDANSETRON 4 MG/2 ML VIAL ONE (11:03)
[2021-12-04] MEDS ORDERED: MORPHINE 4 MG/ML SYR ONE (11:03)
[2021-12-04] MEDS ORDERED: NA CHLORIDE 0.9% 1,000 ML ONE (11:03)
[2021-12-04 11:32] LABS: Absolute Lymphocytes (CBC) 1.3 K/uL (0.7-4.9); Hematocrit 40.2 % (39.6-49.0); Lymphocytes % 21.2 % (15.3-44.8); MPV 7.8 fL (7.6-11.3); RBC Red Blood Cell Count 4.85 M/uL (4.33-5.43)
[2021-12-04 11:58] LABS: Albumin 3.7 g/dL (3.4-5.0); Bilirubin Direct 0.1 mg/dL (0-0.2); Bilirubin Total 0.4 mg/dL (0.2-1.0); Potassium 4.1 mmol/L (3.5-5.1)
--- NOTE | 2021-12-04 12:48 | RAD REPORT ---
EXAM DESCRIPTION: CTAbdomen Pelvis W Contrast - 12/04/2021 12:37 pm CLINICAL HISTORY: ABD PAIN COMPARISON: Abdomen Pelvis W Contrast dated 09/19/2021; Angio Aorta For Dissection dated 10/28/2019 TECHNIQUE: CT of the abdomen and pelvis was performed. All CT scans are performed using dose optimization technique as appropriate and may include automated exposure control or mA/KV adjustment according to patient size. FINDINGS: Lower chest: No acute abnormality. Liver: No acute abnormality or suspicious lesions. Biliary: Similar extrahepatic biliary ductal dilatation. This may be related to the postcholecystecto my state. Stomach: No significant focal abnormality. Duodenum: No significant focal abnormality. Pancreas: No significant abnormality. Spleen: No significant abnormality. Adrenal: No suspicious lesions. Kidney/ureter: No hydronephrosis. No renal calculi. Left renal cysts. Retroperitoneum: No retroperitoneal adenopathy. Vascular: No aneurysm. IVC filter. Mild atherosclerosis. Bowel: Diverticulosis. No evidence of acute diverticulitis. Normal appendix. Nonspecific fluid within the small bowel.. Peritoneum: Fat containing inguinal hernias. Bladder: Grossly unremarkable. Reproductive: Prostatomegaly. Bones: No acute fracture. L4-5 fusion. Similar sclerotic focus in L1. Spinal stimulator. Other: n/a IMPRESSION: Nonspecific small bowel fluid without bowel obstruction could represent a gastroenteriti s. No definite acute findings otherwise identified. Normal appendix .
--- NOTE | 2021-12-04 13:11 | ER ---
Nurse's Notes [facility] Name: Moshe Ewing Age: 60 yrs Sex: Male : 1960 Arrival Date: 12/04/2021 Time: 10:37 Bed 15 Private MD: Maira Oliveira Diagnosis: Abdominal pain, Generalized Presentation: 12/04 10:48 Chief complaint: Patient states: Pt c/o nausea and abdominal pain x3 days. Pt states, ab2 "When I lay down a big lump comes out of my stomach.". Coronavirus screen: Vaccine status: Patient reports being unvaccinated. Client denies travel out of the [place] in the last 14 days. At this time, the client does not indicate any symptoms associated with coronavirus-19. Ebola Screen: Patient negative for fever greater than or equal to 101.5 degrees Fahrenheit, and additional compatible Ebola Virus Disease symptoms Patient denies exposure to infectious person. Patient denies travel to an Ebola-affected area in the 21 days before illness onset. No symptoms or risks identified at this time. Initial Sepsis Screen: Does the patient meet any 2 criteria? No. Patient's initial sepsis screen is negative. Does the patient have a suspected source of infection? No. Patient's initial sepsis screen is negative. Risk Assessment: Do you want to hurt yourself or someone else? Patient reports no desire to harm self or others. Onset of symptoms is unknown. 10:48 Method Of Arrival: Ambulatory ab2 10:48 Acuity: MYRIAM 3 ab2 Triage Assessment: 10:51 General: Appears in no apparent distress. uncomfortable, Behavior is calm, cooperative, ab2 appropriate for age. Pain: Complains of pain in umbilical area, right lower quadrant and left lower quadrant Pain currently is 8 out of 10 on a pain scale. GI: Abdomen is tender to palpation X 4 quads. Reports lower abdominal pain, diarrhea, nausea. Historical: - Allergies: 10:51 amlodipine; ab2 - Home Meds: 10:51 clopidogrel 75 mg Oral tab 1 tab once daily [Active]; levothyroxine 75 mcg tab 1 tab ab2 once daily [Active]; metformin 500 mg Oral cpER 1 tab 1 tab with breakfast, 1 tab with lunch, 2 tabs with evening meal [Active]; finasteride 5 mg Oral tab 1 tab once daily [Active]; losartan 100 mg Oral tab 1 tab once daily [Active]; lovastatin 40 mg Oral tab 1 tab once daily [Active]; tamsulosin 0.4 mg Oral cp24 1 cap once daily [Active]; - PMHx: 10:51 Hypothyroidism; Hypertension; Hypercholesterolemia; Diabetes - NIDDM; DVT; ab2 - PSHx: 10:51 back sx; Cholecystectomy; foot/shoulder SX; R BKA; stimulator R back for legs; L hand ab2 SX with plates placed; - Immunization history:: Adult Immunizations up to date. - Social history:: Smoking status: Patient denies any tobacco usage or history of. Screenin:41 Abuse screen: Denies threats or abuse. Denies injuries from another. Nutritional jg9 screening: No deficits noted. Tuberculosis screening: No symptoms or risk factors identified. Fall Risk Secondary diagnosis (15 points) impaired mobility, r leg amputation. Assessment: 11:15 Reassessment: No changes from previously documented assessment. Pain: Complains of pain jg9 in abdomen Pain does not radiate. Pain currently is 9 out of 10 on a pain scale. Quality of pain is described as crampy, squeezing. 11:40 GI: Bowel sounds present X 4 quads. Reports upper abdominal pain, patient reports that jg9 he has a bulge in his abdomen when he lays flat, he reports that it wasn't hurting until thee last couple days. 11:47 Pain: Pain currently is 7 out of 10 on a pain scale. level that patient reports is jg9 acceptable is 5 out of 10 on a pain scale. Vital Signs: 10:48 BP 148 / 94; Pulse 81; Resp 18; Temp 98.1(O); Pulse Ox 98% on R/A; Weight 95.25 kg; ab2 Height 5 ft. 9 in. (175.26 cm); Pain 8/10; 11:30 BP 125 / 86; Pulse 61; Resp 12 S; Pulse Ox 98% on R/A; jg9 11:45 BP 132 / 84; Pulse 95; Resp 13 S; Pulse Ox 97% on R/A; jg9 12:15 BP 137 / 82; Pulse 64; Resp 19 S; Pulse Ox 97% on R/A; jg9 13:30 BP 135 / 85; Pulse 58; Resp 20 S; Pulse Ox 100% on R/A; jg9 10:48 Body Mass Index 31.01 (95.25 kg, 175.26 cm) ab2 ED Course: 10:37 Patient arrived in ED. am2 10:37 KARLI OLIVEIRA is Private Physician. am2 10:40 Just[facility]akes [facility]-C [facility] kb 10:40 Jonh Liang DO is Attending Physician. kb 10:49 KARLI OLIVEIRA is Private Physician. am2 10:50 Maira Oliveira MD is Private Physician. am2 10:50 Triage completed. ab2 10:53 Arm band placed on right wrist. ab2 10:58 Maureen Wilder, FANNY is Primary Nurse. jg9 11:42 Patient has correct armband on for positive identification. Bed in low position. Call jg9 light in reach. Side rails up X 1. 12:36 CT Abd/Pelvis - IV Contrast Only In Process Unspecified. EDMS 13:00 Resting quietly. Pt visited by . jg9 13:39 No provider procedures requiring assistance completed. jg9 13:40 IV discontinued. jg9 Administered Medications: 11:18 Drug: Zofran (Ondansetron) 4 mg Route: IVP; Site: right forearm; jg9 11:46 Follow up: Response: No adverse reaction jg9 11:20 Drug: morphine 4 mg Route: IVP; Site: right forearm; jg9 11:47 Follow up: Response: No adverse reaction; Pain is decreased jg9 11:20 Drug: NS 0.9% 1000 ml Route: IV; Rate: 1000 ml; Site: right forearm; jg9 13:00 Follow up: IV Status: Completed infusion; IV Intake: 1000ml jg9 Intake: 13:00 IV: 1000ml; Total: 1000ml. jg9 Outcome: 13:11 Discharge ordered by . kb 13:39 Discharged to home ambulatory. jg9 13:39 Condition: stable 13:39 Discharge instructions given to patient, Instructed on discharge instructions, follow up and referral plans. Demonstrated understanding of instructions, follow-up care, medications, Prescriptions given X 2. 13:40 Patient left the ED. jg9 Signatures: Dispatcher [employer] EDKY Champ Justina, GLASS TECHNICIAN-C GLASS TECHNICIAN-Ckb Yolanda Crowe am2 Maureen Wilder, RN RN jg9 Chad Forman ab2
--- NOTE | 2021-12-04 13:11 | EDPHYS ---
Physician Documentation [facility] Name: Moshe Ewing Age: 60 yrs Sex: Male : 1960 Arrival Date: 12/04/2021 Time: 10:37 Bed 15 Private MD: Maira Oliveira ED Physician Jonh Liang HPI: 12/04 13:25 This 60 yrs old Male presents to ER via Ambulatory with complaints of Abdominal Pain, kb Epigastric Pain. 13:25 The patient presents with abdominal pain that is diffuse. Onset: The symptoms/episode kb began/occurred 3 day(s) ago. The symptoms do not radiate. Associated signs and symptoms: Pertinent positives: diarrhea, nausea, Pertinent negatives: fever, vomiting. The symptoms are described as constant. Modifying factors: The symptoms are alleviated by nothing, the symptoms are aggravated by nothing. Severity of pain: At its worst the pain was moderate in the emergency department the pain is unchanged. The patient has not experienced similar symptoms in the past. The patient has not recently seen a physician. Historical: - Allergies: 10:51 amlodipine; ab2 - Home Meds: 10:51 clopidogrel 75 mg Oral tab 1 tab once daily [Active]; levothyroxine 75 mcg tab 1 tab ab2 once daily [Active]; metformin 500 mg Oral cpER 1 tab 1 tab with breakfast, 1 tab with lunch, 2 tabs with evening meal [Active]; finasteride 5 mg Oral tab 1 tab once daily [Active]; losartan 100 mg Oral tab 1 tab once daily [Active]; lovastatin 40 mg Oral tab 1 tab once daily [Active]; tamsulosin 0.4 mg Oral cp24 1 cap once daily [Active]; - PMHx: 10:51 Hypothyroidism; Hypertension; Hypercholesterolemia; Diabetes - NIDDM; DVT; ab2 - PSHx: 10:51 back sx; Cholecystectomy; foot/shoulder SX; R BKA; stimulator R back for legs; L hand ab2 SX with plates placed; - Immunization history:: Adult Immunizations up to date. - Social history:: Smoking status: Patient denies any tobacco usage or history of. ROS: 13:25 Constitutional: Negative for fever, chills, and weight loss. kb 13:25 Abdomen/GI: Positive for abdominal pain, nausea, diarrhea. 13:25 All other systems are negative. Exam: 13:25 Constitutional: This is a well developed, well nourished patient who is awake, alert, kb and in no acute distress. Head/Face: Normocephalic, atraumatic. ENT: Moist Mucous membranes Cardiovascular: Regular rate and rhythm with a normal S1 and S2. No gallops, murmurs, or rubs. No pulse deficits. Respiratory: Respirations even and unlabored. No increased work of breathing. Talking in full sentences Skin: Warm, dry with normal turgor. Normal color. MS/ Extremity: Pulses equal, no cyanosis. Neurovascular intact. Full, normal range of motion. Neuro: Awake and alert, GCS 15, oriented to person, place, time, and situation. Moves all extremities. Normal gait. Psych: Awake, alert, with orientation to person, place and time. Behavior, mood, and affect are within normal limits. 13:25 Abdomen/GI: Inspection: abdomen appears normal, Bowel sounds: normal, in all quadrants, Palpation: soft, in all quadrants, moderate abdominal tenderness, in all quadrants. Vital Signs: 10:48 BP 148 / 94; Pulse 81; Resp 18; Temp 98.1(O); Pulse Ox 98% on R/A; Weight 95.25 kg; ab2 Height 5 ft. 9 in. (175.26 cm); Pain 8/10; 11:30 BP 125 / 86; Pulse 61; Resp 12 S; Pulse Ox 98% on R/A; jg9 11:45 BP 132 / 84; Pulse 95; Resp 13 S; Pulse Ox 97% on R/A; jg9 12:15 BP 137 / 82; Pulse 64; Resp 19 S; Pulse Ox 97% on R/A; jg9 13:30 BP 135 / 85; Pulse 58; Resp 20 S; Pulse Ox 100% on R/A; jg9 10:48 Body Mass Index 31.01 (95.25 kg, 175.26 cm) ab2 MDM: 10:52 Patient medically screened. kb 13:25 Data reviewed: vital signs, nurses notes. Data interpreted: Pulse oximetry: on room air kb is 97 %. Interpretation: normal. Counseling: I had a detailed discussion with the patient and/or guardian regarding: the historical points, exam findings, and any diagnostic results supporting the discharge/admit diagnosis, lab results, radiology results, the need for outpatient follow up, a family practitioner, to return to the emergency department if symptoms worsen or persist or if there are any questions or concerns that arise at home. 12/04 10:52 Order name: Basic Metabolic Panel; Complete Time: 12:09 kb 12/04 10:52 Order name: CBC with Diff; Complete Time: 11:34 kb 12/04 10:52 Order name: Hepatic Function; Complete Time: 12:09 kb 12/04 10:52 Order name: Lipase; Complete Time: 12:10 kb 12/04 10:52 Order name: CT Abd/Pelvis - IV Contrast Only; Complete Time: 12:53 kb 12/04 10:52 Order name: IV Saline Lock; Complete Time: 11:21 kb 12/04 10:52 Order name: Labs collected and sent; Complete Time: 11:21 kb Administered Medications: 11:18 Drug: Zofran (Ondansetron) 4 mg Route: IVP; Site: right forearm; jg9 11:46 Follow up: Response: No adverse reaction jg9 11:20 Drug: morphine 4 mg Route: IVP; Site: right forearm; jg9 11:47 Follow up: Response: No adverse reaction; Pain is decreased jg9 11:20 Drug: NS 0.9% 1000 ml Route: IV; Rate: 1000 ml; Site: right forearm; jg9 13:00 Follow up: IV Status: Completed infusion; IV Intake: 1000ml jg9 Disposition: 20:05 Co-signature as Attending Physician, Jonh Liang DO I agree with the assessment and ms3 plan of care. Disposition Summary: 12/04/21 13:11 Discharge Ordered Location: Home kb Condition: Stable kb Diagnosis - Abdominal pain, Generalized kb Followup: kb - With: Emergency Department - When: As needed - Reason: Worsening of condition Followup: kb - With: Private Physician - When: 2 - 3 days - Reason: Recheck today's complaints, Continuance of care, Re-evaluation by your physician Discharge Instructions: - Discharge Summary Sheet kb - Viral Gastroenteritis, Adult, [id number] kb - Abdominal Pain, Adult, [id number] kb Forms: - Medication Reconciliation Form kb - Thank You Letter kb - Antibiotic Education kb - Prescription Opioid Use kb Prescriptions: - Zofran 4 mg Oral Tablet - take 1 tablet by ORAL route every 6 hours As needed; 20 tablet; Refills: 0, kb Product Selection Permitted - dicyclomine 20 mg Oral Tablet - take 1 tablet by ORAL route 4 times per day As needed; 20 tablet; Refills: 0, kb Product Selection Permitted Signatures: Dispatcher [employer] Justina Rose, Jonh Brandt DO DO ms3 Maureen Wilder RN RN jg9 Chad Forman2
[2021-12-04 13:53] VITALS: TEMP 98.1
[2021-12-04 13:57] VITALS: BP 135/85; O2SAT 100
== END 2021-12-04 13:40 | disposition home or self-care (01) ==
LOC: ER 10:36
DX: R10.84 Generalized abdominal pain (principal); R19.7 Diarrhea, unspecified; R11.0 Nausea; I10 Essential (primary) hypertension; E11.9 Type 2 diabetes mellitus without complications; E03.9 Hypothyroidism, unspecified; Z88.8 Allergy status to other drugs, medicaments and biological substances; Z86.718 Personal history of other venous thrombosis and embolism; Z89.511 Acquired absence of right leg below knee
CPT/HCPCS: 96361; 85025; 80048; 36415; 80076; 83690; 74177; 96375; 96374; 99283; Q9967; J7030; J2405

== ENCOUNTER 2022-01-06 13:38 | Emergency (ER) | payer OTHER ==
--- OUTSIDE RECORDS SUMMARY | 2022-01-06 13:44 | XMS REPORT | Continuity of Care Document ---
:1960 Author Organization [facility] t Address [address] [place] [address] Care Team Providers Name Role Phone Kimber [...] Number Effective Date Expiration Date Janell freitas ELDERNELLIE/[facility] DUAL [id number] 2020 COMP HMO D SNP 00:00:00 [place] [id number] 2020 00:00:00 [facility] [id number] Problems Condition Condition Condition Status Onset Resolution Last Treating Co mments Source Name Details Category Date Date Treatment Clinician Date Other Other Disease Active 2020-09 Univers age-relate age-relate 89 [place] y of d [place] d [place] left 00 [facility] eye eye Branch Obesity Obesity Disease [...] left left 3-09 ity of 00:00: [place] [facility] Raised Raised Problem Active [place] Prostate da specific Specific Medica l antigen Antigen Group Allergies, Adverse Reactions, Alerts Allergy Allergy Status Severity Reaction(s) Onset Inactive Treating Comm ents Source Name Type Date Date Clinician NO KNOWN Drug Active Univers ALLERGIE Class ity of S [facility] [place] [facility] Social History Social Habit Start Date Stop Date Quantity Comments Source Exposure to Not sure [facility] SARS-CoV-2 (event) [facility] Alcohol intake 2021-08-28 2021-08-28 0 /d [facility] 00:00:00 00:00:00 [facility] Tobacco use and 2015-11-15 2015-11-15 Never used [facility] exposure 00:00:00 00:00:00 [facility] Sex Ass[birth year] At [birth year] [facility] 00:00:00 00:00:00 [facility] Smoking Status Start Date Stop Date Source Never Smoker [facility] Medications Ordered Filled Start Stop Current Ordering Indication Dosage Frequency Signature Comments Components Source Medication Medication Date Date Medication? Clinician (SIG) Name Name lidocaine 2020-09- No 1mL 1 mL, Univer s (XYLOCAINE) 11-03 Topical, ity of 2 % jelly 15:00: 13:45 [place] URO-JET 1 00 :00 dose, On Medica l mL [facility] 09/02/21 at 0900, Routine, DSU Pre-op lidocaine 2020-09- No 1mL 1 mL, Univer s (XYLOCAINE) 11-03 Topical, ity of 2 % jelly 15:00: 13:45 [place] URO-JET 1 00 :00 dose, On Medica l mL [facility] Branch 09/02/21 at 0900, Routine, DSU Pre-op moxifloxaci 2020-09- No PRN, Unive rs n (VIGAMOX) 11-03 Starting ity of 0.5 % 14:25: 17:22 on [facility] ophthalmic 00 :35 09/02/21 at Med ical drops 0825, Branch Until 09/02/21 at 1122, Routine, Intra-op DUOVISC 2020-09 Yes PRN, Univers (DUOVISC 11-03 Starting ity of VISCO 14:16: on [facility] ELASTIC) 3 00 09/02/21 at [facility] ical %-4 %(0.5 0816, Branch mL) 1 % Until (0.55 mL) Discontinu intraocular ed, injection Routine, Intra-op DUOVISC 2020-09- No PRN, Univers (DUOVISC 11-03 Starting ity of VISCO 14:16: 17:22 on [facility] ELASTIC) 3 00 :35 09/02/21 at Med ical %-4 %(0.5 0816, Branch mL) 1 % Until Tue (0.55 mL) 09/02/21 at intraocular 1122, injection Routine, Intra-op lidocaine 2020-09 Yes PRN, Univers 1% (PF) 11-03 Starting ity of (XYLOCAINE) 14:15: on Wed [place] injection 00 09/02/21 at [facility] 0815, Branch Until Discontinu ed, Routine, Intra-op lidocaine 2020-09- No PRN, Univers 1% (PF) 11-03 Starting ity of (XYLOCAINE) 14:15: 17:22 on [place] injection 00 :35 09/02/21 at [facility] 0815, Branch Until 09/02/21 at 1122, Routine, Intra-op EPINEPHrine 2020-09- No PRN, Unive rs 1:1,000 (1 11-03 Starting ity of mg/mL) 14:00: 17:22 on Wed [place] (ADRENALIN) 00 :35 09/02/[address] dical injection 0800, Branch Until Wed09/02/21 at 1122, Routine, Intra-op balanced 2020-09 Yes PRN, [facility] 11-03 Starting ity of no.2 irrig. 13:59: on Wed [place] (BSS[place] 00 09/02/21 at [place] [address], Branch solution Until Discontinu ed, Routine, Intra-op balanced 2020-09- No PRN, [facility] 11-03 Starting ity o f no.2 irrig. 13:59: 17:22 on Wed [place] (BSS) 00 :35 09/02/21 at [place] [id number], Branch solution Until Wed09/02/21 at 1122, Routine, [...] mL lactated 2020-09- No 1000mL at 42 [facility] rs ringers IV 11-03 mL/hr, ity of [...] of (PLAVIX 12:25: daily. [place] ORAL) [address] [place] [address] Branch LOVASTATIN 2020-09 Yes Take by Uni vers ORAL 2-02 mouth. ity of 12:25: [address] [place] [address] gabapentin 2020-09 Yes Take by Uni vers (GRALISE) 2-02 mouth. ity of 300 mg 12:25: [place] tablet [address] [place] [address] Branch losartan 2020-09 Yes 1 (one) Univer s 100 mg 2-02 time each ity of tablet 12:25: day [address] [place] [address] pravastatin 2020-09 Yes 40mg Take 40 mg Univers 40 mg 2-02 by mouth. ity of tablet 12:25: [address] [place] [address] Levothyroxi 2020-09 Yes 75ug Take 75 Uni [...] ity of (PLAVIX 12:25: daily. [place] ORAL) [address] [place] [address] LOVASTATIN 2020-09 Yes Take by Uni vers ORAL 2-02 mouth. ity of 12:25: [address] [place] [address] gabapentin 2020-09 Yes Take by Uni vers (GRALISE) 2-02 mouth. ity of 300 mg 12:25: [place] tablet [address] [place] [address] losartan 2020-09 Yes 1 (one) Univer s 100 mg 2-02 time each ity of tablet 12:25: day [place] [address] Medical Branch pravastatin 2020-09 Yes 40mg Take 40 mg Univers 40 mg 2-02 by mouth. ity of tablet 12:25: [place] [address] Medical Branch pravastatin 2020-09 Yes 40mg Take [...] by mouth ity of tablet 13:02: daily. [address] Branch gabapentin 2020-09 Yes 300mg Take [...] by ity of capsule 13:02: mouth. [address] losartan 2020-09 Yes 1 (one) Univer s 100 mg 1-17 time each ity of tablet 13:02: day [address] methocarbam 2020-09 Yes 750mg Take 750 U nivers ol 750 mg 1-17 mg by ity of tablet 13:02: mouth. [address] pravastatin 2020-09 Yes 40mg Take 40 mg Univers 40 mg 1-17 by mouth. ity of tablet 13:02: [address] pravastatin 2020-09 Yes 40mg Take 40 [...] mouth ity of tablet 13:02: daily. [address] gabapentin 2020-09 Yes 300mg Take 300 Un jovi 300 mg 1-17 mg by ity of capsule 13:02: mouth. [address] Branch methocarbam 2020-09 Yes 750mg Take 750 U nivers ol 750 mg 1-17 mg by ity of tablet 13:02: mouth. [address] Branch pravastatin 2020-09 Yes 40mg Take [...] mouth ity of tablet 13:02: daily. [address] gabapentin 2020-09 Yes 300mg Take 300 Un jovi 300 mg 1-17 mg by ity of capsule 13:02: mouth. [address] methocarbam 2020-09 Yes 750mg Take 750 U nivers ol 750 mg 1-17 mg by ity of tablet 13:02: mouth. [address] cyclobenzap 2020-09 Yes [id number] 10mg Take 1 Univers rine 10 mg 1-17 tablet by ity of tablet 00:00: mouth 3 [place] 00 (three) Medical times Branch daily. cyclobenzap 2020-09 Yes [id number] 10mg Take 1 Univers rine 10 mg 1-17 tablet by ity of tablet 00:00: mouth 3 [place] 00 (three) Medical times Branch daily. cyclobenzap 2020-09 Yes [id number] 10mg Take 1 Univers rine 10 mg 1-17 tablet by ity of tablet 00:00: mouth 3 [place] 00 (three) Medical times Branch daily. cyclobenzap 2020-09 [id number] 10mg Take 1 Univers rine 10 mg 1-17 12-07 tablet by ity of tablet 00:00: 00:00 mouth 3 [place] 00 :00 (three) Medical times Branch daily. cyclobenzap 2020-09- No [id number] 10mg Take 1 Univers rine 10 mg 1-17 12-07 tablet by ity of tablet 00:00: 00:00 mouth 3 [place] 00 :00 (three) Medical times Branch daily. diclofenac 2020-0 Yes [id number] 75mg Take 1 U nivers 75 mg EC 7-16 tablet by ity of tablet 00:00: mouth 2 [place] 00 (two) Medical times Branch daily with meals. diclofenac 2020-0 Yes [id number] 75mg Take 1 U nivers 75 mg EC 7-16 tablet by ity of tablet 00:00: mouth 2 [place] 00 (two) Medical times Branch daily with meals. diclofenac 2020-0 Yes [id number] 75mg Take 1 U nivers 75 mg EC 7-16 tablet by ity of tablet 00:00: mouth 2 [place] 00 (two) Medical times Branch daily with meals. diclofenac 2019-2020- No [id number] 75mg Take 1 Univers 75 mg EC 7-16 12-07 tablet by ity o f tablet 00:00: 00:00 mouth 2 [place] 00 :00 (two) Medical times Branch daily with meals. diclofenac 2019-0 2020- No [id number] 75mg Take 1 Univers 75 mg EC [...] 24 5-11 ity of hr capsule 00:00: [place] [address] Medical Branch tamsulosin 2020-0 1- No Univer [...] 5 mg tablet 4-19 ity of 00:00: [place] [address] Medical Branch finasteride 2020-0 Yes Univer s 5 mg tablet 4-19 ity of 00:00: [place] [address] Medical Branch finasteride 2020-0 Yes Univer s [...] L1-L2 4-16 ity of CTRL PETER 00:00: [facility] 00 Medical Branch ACCU-CHEK 2020-0 Yes Univers GUIDE L1-L2 4-16 ity of CTRL PETER 00:00: [facility] 00 Medical Branch ACCU-CHEK 2020-0 Yes Univers GUIDE L1-L2 4-16 ity of CTRL PETER 00:00: [facility] 00 Medical Branch ACCU-CHEK 2020-0 2020- No Univers GUIDE L1-L2 4-16 12- ity of CTRL PETER 00:00: 00:00 [facility] 00 :00 Medical Branch ACCU-CHEK 2020-0 2020- No Univers GUIDE L1-L2 4-16 12- ity of CTRL PETER 00:00: 00:00 [facility] 00 :00 Medical Branch allopurinoL 2020-0 Yes [...] by mouth. ity of tablet 00:00: [place] [facility] cyclobenzap 0 Yes 10mg Take 1 Univ ers rine 5-10 tablet by ity of (FLEXERIL) 00:00: mouth 3 [place] 10 mg 00 (three) Medical tablet times Branch daily. cyclobenzap 0 Yes 10mg Take 10 mg Univers rine 10 mg 5-10 by mouth. ity of tablet 00:00: [place] [facility] cyclobenzap 2016-0 Yes 10mg Take 1 Univ ers rine 5-10 tablet by ity of (FLEXERIL) 00:00: mouth 3 [place] 10 mg 00 (three) Medical tablet times Branch daily. cyclobenzap 20160 Yes 10mg Take 10 mg Univers rine 10 mg 5-10 by mouth. ity of tablet 00:00: [place] [facility] cyclobenzap 2015-2020- No 10mg Take 1 Uni [...] [place] [address] HCl HCl [place] [facility] acetaminoph acetaminoph No acetaminop [place] [...] Source Heart rate 2021-09-02 14:58:00 66 /min [facility] Respiratory rate 2021-09-02 14:58:00 23 /min [facility] Oxygen saturation in 2021-09-02 14:58:00 97 /min [facility] blood by [facility] Pulse oximetry Branch Systolic blood 2021-09-02 14:55:00 167 mm[Hg] Univer sity of [facility] Diastolic blood 2021-09-02 14:55:00 98 mm[Hg] Unive [facility] Body temperature 2021-09-02 14:36:00 36.28 Annmarie [facility] Body height 2021-08-29 19:19:00 175.3 cm [facility] Body weight 2021-08-29 19:19:00 96.9 kg [facility] BMI 2021-08-29 19:19:00 31.53 kg/m2 [facility] Systolic blood 2021-09-02 12:43:00 172 mm[Hg] Univer sity of [facility] Diastolic blood 2021-09-02 12:43:00 99 mm[Hg] [facility] 2021-09-02 12:43:00 71 /min [facility] Body temperature 2021-09-02 12:43:00 36.61 Annmarie [facility] Respiratory rate 2021-09-02 12:43:00 18 /min [facility] Oxygen saturation in 2021-09-02 12:43:00 99 /min University of Arterial blood by [facility] Pulse oximetry [place] Body height 2021-08-29 19:19:00 175.3 cm Universi ty of [facility] [place] [facility] Body weight 2021-08-29 19:19:00 96.9 kg Universi ty of [facility] BMI 2021-08-29 19:19:00 31.53 kg/m2 Universi ty [facility] Systolic blood 2021-08-13 19:02:00 166 mm[Hg] Univer sit of [facility] Diastolic blood 2021-08-13 19:02:00 92 mm[Hg] Unive [facility] Heart rate 2021-08-13 19:02:00 71 /min Universi ty [facility] Respiratory rate 2021-08-13 19:02:00 20 /min [facility] Body height 2021-08-13 19:02:00 175.3 cm Universi ty [facility] Body weight 2021-08-13 19:02:00 101.016 kg Universi ty [facility] BMI 2021-08-13 19:02:00 32.89 kg/m2 Universi ty [facility] Oxygen saturation in 2021-08-13 19:02:00 98 /min University of Arterial blood by [facility] Pulse oximetry [place] Procedures Procedure Date / Time Performing Source Performed Clinician PHACOEMULSIFICATION OF 2021-09-02 Che Bah [facility] CATARACT WITH INTRAOCULAR 13:39:00 [facility] LENS IMPLANT POCT GLUCOSE(AGE >30DAYS) 2021-09-02 [facility] 13:00:00 [facility] POCT GLUCOSE(AGE >30DAYS) 2021-09-02 [facility] 13:00:00 [facility] POCT GLUCOSE (AUTOMATED) 2021-09-02 Che Bah [facility] 12:52:00 Medical [place] ASSIGNMENT OF BENEFITS 2021-09-01 Doctor Unassigned, [facility] 14:57:17 [place] [facility] EXTERNAL PROVIDER RECORDS 2021-08-18 Doctor Unassigned, [facility] 06:01:00 [place] [facility] EXTERNAL PROVIDER RECORDS 2021-08-18 Doctor Unassigned, [facility] 06:01:00 [place] [facility] [place], urogram 2018-07-07 [facility] 00:00:00 Group Plan of Care Planned Activity Planned Date Details Comments Source Diagnostic Test 2018-07-07 cytology, urine [facility] Pending 00:00:00 [code = cytology, Group urine] Encounters Start End Encounter Admission Attending Care Care Encounter Source Date/Time Date/Time Type Type Clinicians Facility Department ID 2021-10-22 Out[facility] [id number] [facility] 14:27:24 Mair[place] [address] [facility] 2021-10-22 [facility] [id number] 14:18:00 Maira [address]8317 [facility] 2021-10-22 Out[facility] [place] [facility] [id number] [facility] 13[facility]35:45 [place] [address] [facility] 2021-10-22 [facility] [place] [facility] [id number] 12[facility]41:58 [place] [address] [facility] 2021-10-22 [facility] [place] [facility] [id number] 12:40:52 [place] [address] [facility] 2021-10-22 [facility] [place] [facility] [id number] 12:12:33 [place] [address] [facility] 2021-10-22 [facility] [place] [facility] [id number] 11:56:49 [place] [address] [facility] 2021-10-22 [facility] [place] [facility] [id number] 11:56:09 [place] [address] [facility] 2021-10-22 [facility] [place] [facility] [id number] 11:21:52 [place] [address] [facility] 2021-10-22 Outpatient [place], STLMLC STLMLC [id number] 11:07:15 [place] [address] [facility] 2021-10-22 Outpatient [place], STLMLC STLMLC [id number] 11:06:53 [place] [address] [facility] 2021-10-22 Outpatient [place], STLMLC STLMLC [id number] 10:59:53 [place] [address] [facility] 2022-01-05 2022-01-05 ambulatory STLMLC [facility] [id number] [facility] 00:[facility]00 [facility] 2021-12-22 2021-12-22 ambulatory [facility]LMLC [facility] [id number] [facility] 00:[facility]00 [facility] 2021-11-20 2021-11-20 ambulatory STLMLC [facility] [id number] [facility] 00:[facility]00 [facility] 2021-10-21 2021-10-21 ambulatory [facility]LMLC [facility] [id number] [facility] 00:[facility]00 [facility] 2021-10-02 2021-10-02 ambulatory [facility]LMLC [facility] [id number] [facility]00 [facility] 2021-09-26 2021-09-[address] [place] [id number] LORI 08:19:00 13:21:00 [place] 2021-09-12 2021-09-12 ambulatory [facility]LMLC [facility] [id number] [facility]00 [facility] 2021-09-08 2021-09-08 ambulatory [facility]LMLC [facility] [id number] [facility] 00:[facility]00 [facility] 2021-09-02 2021-09-02 Outpatient CARLOS ALBERTO RAMIREZ OPH [id number] Univers 06:24:00 09:17:00 CHE chinchilla [facility] 2021-09-02 2021-09-02 [facility] [id number] Univers 06:24:00 09:17:00 Encounter Che CORDERO [id number] ity of [place] [id number] [facility] s SURGICAL [id number] [facility] 020 [place] 2021-09-02 2021-09-02 [facility] [id number] Univers 07:30:00 08:31:00 Che CORDERO [id number] ity of [place] [id number] [facility] SURGICAL [id number] [address] 2021-09-01 2021-09-01 Outpatient R [facility] [id number] Univers 09:45:00 09:45:00 [id number] ity of [facility] 2021-09-01 2021-09-01 Outpatient R NIURKA [facility] [id number] Univers 09:45:00 09:45:00 CHE chinchilla [facility] 2021-09-01 2021-09-01 Laboratory Only, Adc Test [facility] [id number] Univers 08:58:02 09:13:02 Only Ceh Bah 350.1.13. 10 ity of [place] 4.2.7.2.686 [facility] [id number] [facility] 353 [place] 2021-09-01 2021-09-01 Orders Doctor MEGAN [id number] Univers 00:00:00 00:00:00 Only Unassigned, ANASTASIA [id number] ity of [place] [facility] 4.2.7.2.[address] [facility] [id number] [facility] 009 Branch 2021-09-01 2021-09-01 ambulatory STLMLC STLMLC [id number] [facility] St 00:00:00 00:00:00 [facility] Clinics 2021-08-26 2021-08-26 ambulatory STLMLC [facility] [id number] [facility]00 [facility] 2021-08-19 2021-08-19 ambulatory [facility]LMLC [facility] [id number] [facility] 00:[facility]00 [facility] 2021-08-13 2021-08-13 Office Josef [facility] [id number] Univers 12:47:28 13:02:28 Visit [facility] [id number] [place] [id number] Ty as CHELLE?BLEA [id number] [address] MEDICAL OFFICE BUILDING 2021-07-29 2021-07-29 ambulatory STLMLC STLC [id number] [facility] 00:[facility]00 [facility] 2021-07-25 2021-07-25 Outpatient [facility]LMLC STLC [id number] [facility]00 [facility] 2021-07-21 2021-07-21 Outpatient STLMLC STLC [id number] [facility]00 [facility] 2021-07-11 2021-07-11 Outpatient [facility]LMLC [facility] [id number] [facility]00 [facility] 2021-07-11 2021-07-11 Outpatient [facility]LMLC [facility] [id number] [facility]00 [facility] 2021-06-29 2021-06-29 Outpatient [facility]LMLC [facility] [id number] [facility]00 [facility] 2021-06-24 2021-06-24 Outpatient [facility]LMLC [facility] [id number] [facility]00 [facility] 2021-06-06 2021-06-06 Outpatient [facility]LMLC [facility] [id number] [facility]00 [facility] 2021-05-05 2021-05-05 Outpatient STLMLC [facility] [id number] [facility]00 [facility] 2021-04-30 2021-04-30 Outpatient STLMLC [facility] [id number] [facility]00 [facility] 2021-04-30 2021-04-30 Outpatient STLMLC [facility] [id number] [facility] 00[facility]00 [facility] 2021-04-25 2021-04-25 Outpatient STLMLC [facility] [id number] [facility]00 [facility] 2021-04-03 2021-04-03 Outpatient [facility]LMLC [facility] [id number] [facility]00 [facility] 2021-01-24 2021-01-24 Outpatient [facility]MLC [facility] [id number] [facility]00 [facility] 2021-01-17 2021-01-17 Outpatient [facility]MLC [facility] [id number] [facility] 00[facility]00 [facility] 2021-01-13 2021-01-13 Outpatient [facility]LMLC [facility] [id number] [facility]00 [facility] 2021-01-10 2021-01-10 Outpatient STLMLC [facility]ML[facility] [id number] [facility]00 [facility] 2020-12-31 2020-12-31 Outpatient [facility]LMLC [facility] [id number] [facility]00 [facility] 2020-12-25 2020-12-25 Office Wilder, [facility] [id number] 12:51:24 13:25:03 Visit [facility] [id number] Surgical [id number] [facility] [id number] [address] [place] 2020-12-23 2020-12-23 Outpatient [facility] [id number] [facility] 2020-12-21 2020-12-21 Outpatient [facility] [id number] [facility]00 [facility] 2020-12-19 2020-12-19 [facility] [id number] [facility]00 [facility] 2020-12-17 2020-12-17 Outpatient [facility] [id number] [facility]00 [facility] 2020-12-17 2020-12-17 [facility] [id number] [facility]00 [facility] 2020 2020 Outpatient [facility] [id number] [facility] 2020-12-09 2020-12-09 Outpatient [facility] [id number] [facility]00 [facility] 2020-11-07 2020-11-07 Outpatient [facility] [id number] [facility]00 [facility] 2020-11-04 2020-11-04 Outpatient [facility] [id number] [facility] 2020-11-04 2020-11-04 Outpatient [facility] [id number] [facility] 2020-10-15 2020-10-15 Outpatient SAAD [id number] [facility] 07:11:00 12:00:00 [place] 2020-09-09 2020-09-09 [facility] [id number] [facility] 00:00:00 [facility] Outpati ent Clinics 2020-08-14 2020-08-14 Outpatient Young_J MMG [id number] [place] 02:37:00 02:37:00 118 [facility] 2020-07-16 2020-07-16 [facility] [id number] [facility] 2020-05-06 2020-05-06 [facility] [id number] 10:52:00 10:52:00 [facility] Medicine Outpati ent Clinics 2020-04-10 2020-04-10 [facility] [id number] 13:19:00 13:19:00 [facility] Medicine Outpati ent Clinics 2020-04-08 2020-04-08 [facility] [id number] 11:08:00 11:08:00 [facility] Medicine Outpati ent Clinics 2020-04-05 2020-04-05 [facility] [id number] 18:34:00 18:34:00 [facility] Medicine Outpati ent Clinics 2020-01-09 2020-01-09 [facility] [id number] 14:23:00 14:23:00 [facility] Medicine Outpati ent Clinics 2020-01-08 2020-01-08 [facility] [id number] 08:00:00 08:00:00 [facility] Medicine Outpati ent Clinics 2019-11-22 2019-11-22 [facility] [id number] [facility] 19:45:00 19:45:00 [facility] Medicine Outpati ent Clinics 2019-11-08 2019-11-08 [facility] [id number] [facility] 09[facility]12:00 09:12:00 t [facility] Out[facility] Clin[facility] 2019-11-07 2019-11-07 [facility] [id number] [facility] 08:17:00 08:17:00 t [facility] 2019-10-19 2019-10-19 [facility] [id number] [facility] 15:57:00 15:57:00 t [facility] Medicine Medicine Outpati ent Clinics 2019-10-18 2019-10-18 [facility] [id number] [facility] 09:24:00 09:24:00 t [facility] 2019-10-17 2019-10-17 [facility] [id number] [facility] 09:00:00 09:00:00 t [facility] 2019-10-09 2019-10-09 [facility] [id number] [facility] 10:27:00 10:27:00 t [facility] 2019-10-09 2019-10-09 [facility] [id number] [facility] 09:00:00 09:00:00 t [facility] Clin[facility] 2018-08-08 2018-08-08 Saravanan [facility] [place] - [id number] M atagor 00:00:00 00:00:00 DO Terrance: [facility] hasmukh ramon [address], [place], [facility] [place] [address] , Ph. [phone] 2018-08-04 2018-08-04 Jose Garcia [facility] [place] - [id number] M atagor 00:00:00 00:00:00 MD Bobbi: [facility] batres [address] [facility] [place], [place] - [address], [place] [address] , Ph. 2018-07-07 2018-07-07 Jose Garcia [facility] [place] - [id number] M atagor 00:00:00 00:00:00 MD Bobbi: [address] [employer] [place], [place] - [address], [place] [address] , Ph. Results Test Description Test Time Test Comments Results Result Comments Source POCT GLUCOSE (AUTOMATED) 2021-09-02 16:40:15 Test Item Value Reference Range Interpretation Comme nts POCT GLU (test code = 2797557076) 127 mg/dL 70-110 H Lab Interpretation (test code = 92417-9) Abnormal [facility] [id number] 13:00:00 Test Item Value Reference Range Interpretation Comments POCT Glu (age>30days) (test code = 127 mg/dL 70-110 A 3342) Lab Interpretation (test code = Abnormal 21675-4) [facility] [id number] 13:00:00 Test Item Value Reference Range Interpretation Comments POCT Glu (age>30days) (test code = 127 mg/dL 70-110 A 3342) Lab Interpretation (test code = Abnormal 16114-9) [facility]"
[2022-01-06] MEDS ORDERED: ONDANSETRON 4 MG/2 ML VIAL ONE (15:33)
[2022-01-06] MEDS ORDERED: MORPHINE 4 MG/ML SYR ONE (15:33)
[2022-01-06 15:36] LABS: Hematocrit 41.4 % (39.6-49.0); Lymphocytes % 28.2 % (15.3-44.8); MPV 7.7 fL (7.6-11.3); RBC Red Blood Cell Count 5.02 M/uL (4.33-5.43)
--- NOTE | 2022-01-06 15:50 | RAD REPORT ---
EXAM DESCRIPTION: RAD - Chest Single View - 01/06/2022 3:38 pm CLINICAL HISTORY: CHEST PAIN COMPARISON: Two view chest 05/01/2021 TECHNIQUE: AP portable chest image was obtained 01/06/2022 3:38 pm . FINDINGS: No acute lung parenchymal process. Interstitial pattern matches comparison. No significant failure or volume overload finding. Heart and vasculature are normal. No measurable pleural effusion and no pneumothorax. No acute bony abnormality seen. No acute aortic findings suspected. IMPRESSION: No acute cardiopulmonary process. No significant change from comparison study.
[2022-01-06 16:03] LABS: Albumin 4.3 g/dL (3.4-5.0); Bilirubin Direct 0.1 mg/dL (0-0.2); Bilirubin Total 0.6 mg/dL (0.2-1.0); Magnesium 2.3 mg/dL (1.8-2.4); Potassium 4.3 mmol/L (3.5-5.1); Protein, Total 8.4 g/dL (6.4-8.2); Troponin High Sensitivity 10.3 pg/mL (<58.9)
[2022-01-06 16:20] LABS: Protime INR 0.96
[2022-01-06] MEDS ORDERED: FENTANYL CITR 100 MCG/2 ML ONE (16:26)
[2022-01-06] MEDS ORDERED: DIAZEPAM 10 MG/2 ML INJ SYRINGE ONE (16:28)
--- NOTE | 2022-01-06 17:36 | RAD REPORT ---
EXAM DESCRIPTION: CT - Head Brain Wo Cont - 01/06/2022 5:25 pm CLINICAL HISTORY: pain COMPARISON: Head Brain Wo Cont dated 04/30/2021 TECHNIQUE: Axial 5 mm thick images of the head were obtained without IV contrast. All CT scans are performed using dose optimization technique as appropriate and may include automated exposure control or mA/KV adjustment according to patient size. FINDINGS: No intracranial hemorrhage, mass, edema or shift of mid-line structures. No acute infarcti on changes seen. No cortical edema or sulcal effacement. Ventricles are normal. Carotid calcification s are present. Patient has very dense circumferential calcifications of the tortuous distal vertebral arteries. Mastoid air cells and visualized portions of the paranasal sinuses are clear. Right-side mastoid air cells are underpneumatized. No acute bony findings. IMPRESSION: Negative non-contrast CT head examination for acute finding.
--- NOTE | 2022-01-06 17:40 | RAD REPORT ---
EXAM DESCRIPTION: CT - Head angio - 01/06/2022 5:25 pm CLINICAL HISTORY: neck pain, headache, altered status TECHNIQUE: During dynamic enhancement using nonionic IV contrast, axial 1 millimeter thick images of the head were obtained. Sagittal and axial reconstruction images were generated using MIP technique and reviewed. All CT scans are performed using dose optimization technique as appropriate and may include automated exposure control or mA/KV adjustment according to patient size. COMPARISON: CT head same date FINDINGS: No aneurysm or vascular malformation identified. Major venous sinuses are patent. No stenosis, named branch occlusion, vasculitis or other significant vascular finding identifiable. Carotid artery atherosclerotic calcifications are present without any significant luminal narrowing. Patient does have very dense circumferential calcifications around the distal aspects of the tortuous vertebral arteries. Approximately 50-60% luminal narrowing is seen. Basilar artery is tortuous but o therwise unremarkable. IMPRESSION: No acute CTA head finding. 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
--- NOTE | 2022-01-06 17:45 | RAD REPORT ---
EXAM DESCRIPTION: CT - Neck Angio - 01/06/2022 5:25 pm CLINICAL HISTORY: neck pain, dizziness, headache TECHNIQUE: During dynamic enhancement using nonionic IV contrast, axial 2 mm thick images of the nec k were obtained. Sagittal and axial reconstruction images were generated using MIP technique and revi ewed. All CT scans are performed using dose optimization technique as appropriate and may include automated exposure control or mA/KV adjustment according to patient size. COMPARISON: CT head same date, CT angio head same date FINDINGS: No aneurysm or vascular malformation identified. No carotid or vertebral dissection. Aortic arch is 3 vessel configuration with no origins stenoses. Left vertebral artery is dominant wit h no origins stenosis. Punctate calcifications seen at the origin of the much smaller right vertebral artery. This does not cause significant luminal narrowing. There is tortuosity of the innominate art nida and proximal left common carotid artery. No carotid stenosis, vasculitis or other significant fin ding. Dense circumferential atherosclerotic wall calcifications present at each distal vertebral michael ry. The vertebral arteries are tortuous. Approximately 50-60% luminal narrowing results from the dens e vertebral calcifications. Tortuous basilar artery shows no significant finding. IMPRESSION: Negative CT angio neck examination for acute finding. Dense circumferential calcifications of the distal vertebral arteries resulting in a 50-60% stenosis.
--- NOTE | 2022-01-06 19:07 | ER ---
Nurse's Notes [facility] Name: Moshe Ewing Age: 61 yrs Sex: Male : 1960 Arrival Date: 01/06/2022 Time: 13:47 Bed 17 Private MD: Diagnosis: Strain of muscle, fascia and tendon at neck level Presentation: 01/06 14:36 Chief complaint: Patient states: for approx 2 weeks now, he has been having neck pain. ap3 Patient reports seeing his PCP yesterday, however today the pain got unbearable and he is not getting any relief. Coronavirus screen: At this time, the client does not indicate any symptoms associated with coronavirus-19. Ebola Screen: No symptoms or risks identified at this time. Initial Sepsis Screen: Does the patient meet any 2 criteria? No. Patient's initial sepsis screen is negative. Does the patient have a suspected source of infection? No. Patient's initial sepsis screen is negative. Risk Assessment: Do you want to hurt yourself or someone else? Patient reports no desire to harm self or others. Onset of symptoms was December 26, 2021. 14:36 Method Of Arrival: Ambulatory ap3 14:36 Acuity: MYRIAM 3 ap3 Triage Assessment: 14:43 General: Appears uncomfortable, Behavior is cooperative, crying. Pain: Complains of ap3 pain in neck Pain currently is 10 out of 10 on a pain scale. Quality of pain is described as "severe pain". Neuro: Level of Consciousness is awake, alert, obeys commands, Oriented to person, place, time, situation, Speech is normal. Cardiovascular: Patient's skin is warm and dry. Respiratory: Airway is patent Respiratory effort is even, unlabored, Respiratory pattern is regular, symmetrical. Historical: - Allergies: 14:41 amlodipine; ap3 - Home Meds: 14:41 clopidogrel 75 mg Oral tab 1 tab once daily [Active]; finasteride 5 mg Oral tab 1 tab ap3 once daily [Active]; levothyroxine 75 mcg tab 1 tab once daily [Active]; losartan 100 mg Oral tab 1 tab once daily [Active]; lovastatin 40 mg Oral tab 1 tab once daily [Active]; metformin 500 mg Oral cpER 1 tab 1 tab with breakfast, 1 tab with lunch, 2 tabs with evening meal [Active]; tamsulosin 0.4 mg Oral cp24 1 cap once daily [Active]; - PMHx: 14:41 Diabetes - NIDDM; DVT; Hypercholesterolemia; Hypertension; Hypothyroidism; ap3 - PSHx: 14:41 back sx; Cholecystectomy; foot/shoulder SX; L hand SX with plates placed; R BKA; ap3 stimulator R back for legs; - Immunization history:: Client reports having NOT received the Covid vaccine. Flu vaccine is not up to date. - Social history:: Smoking status: Patient denies any tobacco usage or history of. Screenin:44 Abuse screen: Denies threats or abuse. Nutritional screening: No deficits noted. ap3 Tuberculosis screening: No symptoms or risk factors identified. Fall Risk No fall in past 12 months (0 pts). Secondary diagnosis (15 points) right BKA. Assessment: 15:55 General: Appears uncomfortable, patient states that he's in extreme pain . Pain: dw3 Complains of pain in neck Pain radiates to mid-sternal area Pain currently is 10 out of 10 on a pain scale. Pain began neck pain started approximate 2.5 weeks ago Is continuous, Aggravated by movement. Neuro: Level of Consciousness is awake, alert, obeys commands, Oriented to person, place, time, situation. Cardiovascular: Heart tones S1 S2 present Rhythm is sinus rhythm Chest pain is described as severe. Respiratory: Airway is patent Respiratory pattern is regular, symmetrical. GI: No signs and/or symptoms were reported involving the gastrointestinal system. : No signs and/or symptoms were reported regarding the genitourinary system. EENT: No signs and/or symptoms were reported regarding the EENT system. Derm: Skin is pink, warm \\T\\ dry. Musculoskeletal: No signs and/or symptoms reported regarding the musculoskeletal system. Injury Description: Amputation sustained to medial aspect of left calf, left medial ankle and medial aspect of left foot. 16:59 Reassessment: Patient is alert, oriented x 3, equal unlabored respirations, skin dw3 warm/dry/pink. Patient states feeling better. Patient states symptoms have improved. Pain: Pain currently is 8 out of 10 on a pain scale. 19:20 Reassessment: Patient is alert, oriented x 3, equal unlabored respirations, skin dw3 warm/dry/pink. General: Appears comfortable. 19:20 Pain: Pain currently is 4 out of 10 on a pain scale. dw3 Vital Signs: 14:36 BP 138 / 105; Pulse 78; Resp 19; Temp 98.6; Pulse Ox 100% ; Weight 92.99 kg; Height 5 ap3 ft. 9 in. (175.26 cm); Pain 10/10; 15:10 BP 152 / 99; Resp 18; Temp 97.7(O); Pain 10/10; dw3 16:49 BP 123 / 76; Pulse 72; Resp 16; Temp 97.7; Pulse Ox 98% on 4 lpm NC; Pain 8/10; dw3 18:21 BP 134 / 86; Pulse 70; Resp 16; Temp 97.6; Pulse Ox 99% on 4 lpm NC; Pain 4/10; dw3 14:36 Body Mass Index 30.27 (92.99 kg, 175.26 cm) ap3 ED Course: 13:47 Patient arrived in ED. ds1 14:41 Triage completed. ap3 14:44 Arm band placed on right wrist. ap3 15:02 Suleiman Petty PA is PHCP. [facility] 15:02 Chris Plummer MD is Attending Physician. jmm 15:30 Initial lab(s) drawn, by ks, sent to lab. Inserted saline lock: 20 gauge in right aa5 antecubital area, using aseptic technique. Blood collected. 15:40 XRAY Chest (1 view) In Process Unspecified. EDMS 17:27 Head angio In Process Unspecified. EDMS 17:27 Neck Angio In Process Unspecified. EDMS 17:27 Head Brain Wo Cont In Process Unspecified. EDMS 19:22 No provider procedures requiring assistance completed. IV discontinued, intact, dw3 bleeding controlled, No redness/swelling at site. Pressure dressing applied. Administered Medications: 15:50 Drug: morphine 4 mg Route: IVP; Site: right forearm; dw3 15:50 Drug: Zofran (Ondansetron) 4 mg Route: IVP; Site: right forearm; dw3 16:42 Drug: Valium (diazepam) 5 mg Route: IVP; Site: right forearm; dw3 16:42 Drug: fentaNYL (PF) 50 mcg Route: IVP; Site: right forearm; dw3 Outcome: 19:06 Discharge ordered by . jm 19:22 Discharged to home ambulatory. dw3 19:22 Condition: improved 19:22 Instructed on discharge instructions, follow up and referral plans. medication usage, Demonstrated understanding of instructions, follow-up care, medications, Prescriptions given X 1. 19:25 Patient left the ED. 3 Signatures: Dispatcher [employer] EDMS Suleiman Petty PA PA jmm Sanford, Demi ds1 Isabelle Freeman, RN RN aa5 Yolanda Victoria RN RN ap3 Shahnaz Larsen RN RN dw3 Corrections: (The following items were deleted from the chart) 16:02 15:59 BP 152 / 99; Resp 18bpm; Temp 97.7F Oral; Pain 10/10; 3 3 16:06 15:50 Zofran (Ondansetron) 4 mg IVP in right femoral [facility] 16:15 15:50 morphine 4 mg IVP in right antecubital [facility] 16:15 15:50 Zofran (Ondansetron) 4 mg IVP in right antecubital [place] [id number] 17:10 15:55 Pain: Complains of pain in neck Pain radiates to mid-sternal area [place] [address] 17:10 15:55 Neuro: Oriented to person, place, time, situation, [place] [address] 17:10 15:55 Cardiovascular: Chest pain is described as severe, 3 [facility] 17:10 15:55 Respiratory: Airway is patent 3 [facility] 17:38 15:55 Pain: Complains of pain in neck Pain radiates to mid-sternal area [place] [address] 17:38 15:55 Neuro: Oriented to person, place, time, situation, [place] [address] 17:38 15:55 Cardiovascular: Chest pain is described as severe, [place] [address] 17:38 15:55 Respiratory: Airway is patent [place] [id number]
--- NOTE | 2022-01-06 19:07 | EDPHYS ---
Physician Documentation [facility] Name: Moshe Ewing Age: 61 yrs Sex: Male : 1960 Arrival Date: 01/06/2022 Time: 13:47 Bed 17 Private MD: Chris Elaine HPI: 01/06 15:11 This 61 yrs old Male presents to ER via Ambulatory with complaints of Neck Pain. jmm 15:11 The patient or guardian complains of pain. Onset: The symptoms/episode began/occurred jmm gradually, 2 week(s) ago. Associated signs and symptoms: The patient denies any alcohol use. The pain does not radiate. Modifying factors: The symptoms are alleviated by nothing. the symptoms are aggravated by movement. This is a 61-year-old male with history of diabetes mellitus, hyperlipidemia, hypertension the presents emerged part with complaints of neck pain began approximately 2 weeks ago. Patient states his PCP noticed lymph nodes in his neck. Patient states symptoms are worsened today states the pain is worse than previous episodes. Denies any weakness to his upper extremities, denies known injury.. Historical: - Allergies: 14:41 amlodipine; ap3 - Home Meds: 14:41 clopidogrel 75 mg Oral tab 1 tab once daily [Active]; finasteride 5 mg Oral tab 1 tab ap3 once daily [Active]; levothyroxine 75 mcg tab 1 tab once daily [Active]; losartan 100 mg Oral tab 1 tab once daily [Active]; lovastatin 40 mg Oral tab 1 tab once daily [Active]; metformin 500 mg Oral cpER 1 tab 1 tab with breakfast, 1 tab with lunch, 2 tabs with evening meal [Active]; tamsulosin 0.4 mg Oral cp24 1 cap once daily [Active]; - PMHx: 14:41 Diabetes - NIDDM; DVT; Hypercholesterolemia; Hypertension; Hypothyroidism; ap3 - PSHx: 14:41 back sx; Cholecystectomy; foot/shoulder SX; L hand SX with plates placed; R BKA; ap3 stimulator R back for legs; - Immunization history:: Client reports having NOT received the Covid vaccine. Flu vaccine is not up to date. - Social history:: Smoking status: Patient denies any tobacco usage or history of. ROS: 15:11 Constitutional: Negative for fever, chills, and weight loss. [facility] 15:11 Neck: Positive for pain with movement. 15:11 All other systems are negative. Exam: 15:11 Constitutional: This is a well developed, well nourished patient who is awake, alert, jmm and in no acute distress. Head/Face: atraumatic. Eyes: EOMI, no conjunctival erythema appreciated ENT: Moist Mucus Membranes 15:11 Cardiovascular: Regular rate and rhythm. No edema appreciated Respiratory: Normal respirations, no respiratory distress appreciated Abdomen/GI: Non distended, soft Back: Normal ROM Skin: General appearance color normal MS/ Extremity: Moves all extremities, no obvious deformities appreciated, no edema noted to the lower extremities Neuro: Awake and alert Psych: Behavior is normal, Mood is normal, Patient is cooperative and pleasant 15:11 Neck: Neck is diffusely tender to palpation, no midline tenderness. Vital Signs: 14:36 BP 138 / 105; Pulse 78; Resp 19; Temp 98.6; Pulse Ox 100% ; Weight 92.99 kg; Height 5 ap3 ft. 9 in. (175.26 cm); Pain 10/10; 15:10 BP 152 / 99; Resp 18; Temp 97.7(O); Pain 10/10; dw3 16:49 BP 123 / 76; Pulse 72; Resp 16; Temp 97.7; Pulse Ox 98% on 4 lpm NC; Pain 8/10; dw3 18:21 BP 134 / 86; Pulse 70; Resp 16; Temp 97.6; Pulse Ox 99% on 4 lpm NC; Pain 4/10; dw3 14:36 Body Mass Index 30.27 (92.99 kg, 175.26 cm) ap3 MDM: 15:11 Patient medically screened. [facility] 18:59 Data reviewed: vital signs, nurses notes. Counseling: I had a detailed discussion with [facility] the patient and/or guardian regarding: the historical points, exam findings, and any diagnostic results supporting the discharge/admit diagnosis, lab results, radiology results, the need for outpatient follow up, to return to the emergency department if symptoms worsen or persist or if there are any questions or concerns that arise at home. 19:05 ED course: Patient states he feels much better. Neck is supple, patient denies any type [facility] of fever or chills. I do not currently suspect meningitis. Patient advised follow-up with her PCP tomorrow for evaluation otherwise given strict return precautions. Patient understood agrees plan of care.. 01/06 15:14 Order name: Basic Metabolic Panel; Complete Time: 16:07 [facility] 01/06 15:14 Order name: CBC with Diff; Complete Time: 15:40 [facility] 01/06 15:14 Order name: LFT's; Complete Time: 16:07 [facility] 01/06 15:14 Order name: Magnesium; Complete Time: 16:07 [facility] 01/06 15:14 Order name: PT-INR; Complete Time: 16:38 [facility] 01/06 15:14 Order name: Troponin HS; Complete Time: 16:07 [facility] 01/06 15:14 Order name: XRAY Chest (1 view); Complete Time: 16:03 [facility] 01/06 15:21 Order name: Head angio; Complete Time: 17:54 EDMS 01/06 15:21 Order name: Neck Angio; Complete Time: 17:54 EDMS 01/06 17:01 Order name: Head Brain Wo Cont; Complete Time: 17:54 EDMS 01/06 15:14 Order name: EKG; Complete Time: 15:15 [facility] 01/06 15:14 Order name: Cardiac monitoring; Complete Time: 16:15 [facility] 01/06 15:14 Order name: EKG - Nurse/Tech; Complete Time: 16:16 [facility] 01/06 15:14 Order name: IV Saline Lock; Complete Time: 16:16 [facility] 01/06 15:14 Order name: Labs collected and sent; Complete Time: 16:16 [facility] 01/06 15:14 Order name: O2 Per Protocol; Complete Time: 16:16 [facility] 01/06 15:14 Order name: O2 Sat Monitoring; Complete Time: 16:16 [facility] Administered Medications: 15:50 Drug: morphine 4 mg Route: IVP; Site: right forearm; dw3 15:50 Drug: Zofran (Ondansetron) 4 mg Route: IVP; Site: right forearm; dw3 16:42 Drug: Valium (diazepam) 5 mg Route: IVP; Site: right forearm; dw3 16:42 Drug: fentaNYL (PF) 50 mcg Route: IVP; Site: right forearm; dw3 Disposition Summary: 01/06/22 19:06 Discharge Ordered Location: Home jmm Condition: Stable jmm Diagnosis - Strain of muscle, fascia and tendon at neck level jmm Followup: jmm - With: Private Physician - When: 2 - 3 days - Reason: Recheck today's complaints, Continuance of care, Re-evaluation by your physician Discharge Instructions: - Discharge Summary Sheet jmm - Cervical Sprain jmm Forms: - Medication Reconciliation Form jm - Thank You Letter jm - Antibiotic Education [facility] - Prescription Opioid Use [facility] Prescriptions: - Zanaflex 4 mg Oral Tablet - take 1 tablet by ORAL route every 8 hours As needed; 20 tablet; Refills: 0, jm Product Selection Permitted Addendum: 01/08/2022 18:43 Co-signature as Attending Physician, Chris Plummer MD I agree with the assessment and c javed plan of care. Signatures: Dispatcher [employer] Chris Zepeda MD MD cha Mickail, Joel, PA PA jmm Prokisch, Amanda RN RN ap3 Shahnaz Larsen RN RN dw3
[2022-01-07 01:37] VITALS: BP 134/86; TEMP 97.6; O2SAT 99
--- NOTE | 2022-01-07 11:00 | EKG ---
Test Date: 2022-01-06 Test Time: 14:37:32 [employer]: ALP MEASUREMENT RESULTS: Intervals: Rate: 75 MD: 158 QRSD: 146 QT: 418 QTc: 466 [place]: P: 53 MD: 158 QRS: 87 T: 49 INTERPRETIVE STATEMENTS: Normal sinus rhythm Right bundle branch block Abnormal ECG Compared to ECG 04/30/2021 16:25:01 No significant changes Electronically Signed On 01-07-22 10:57:26 CDT by Vinny Magallanes
== END 2022-01-06 19:25 | disposition home or self-care (01) ==
LOC: ER 13:38
DX: S16.1XXA Strain of muscle, fascia and tendon at neck level, initial encounter (principal); E11.9 Type 2 diabetes mellitus without complications; E78.00 Pure hypercholesterolemia, unspecified; I10 Essential (primary) hypertension; E03.9 Hypothyroidism, unspecified; Z86.718 Personal history of other venous thrombosis and embolism; Z89.511 Acquired absence of right leg below knee; Z88.8 Allergy status to other drugs, medicaments and biological substances
CPT/HCPCS: 93005; 85025; 80048; 36415; 83735; 85610; 80076; 84484; 70450; 70496; 70498; 71045; 96375; 96374; 99284; Q9967; J3360; J3010; J2405

== ENCOUNTER 2022-03-01 20:59 | Emergency (ER) | payer OTHER ==
--- OUTSIDE RECORDS SUMMARY | 2022-03-01 21:03 | XMS REPORT | Continuity of Care Document ---
:1960 Author Organization [facility] t Address [address] [place] [address] Care Team Providers Name Role Phone Carroll Kimber Primary Care Physician Tee Attending Clinician Unavailable Carroll Attending Clinician Unavailable Janell SCHAFFER Attending Clinician Unavailable Sarbjit BUTLER S Attending Clinician PETRA NASH Attending Clinician Unavailable Meño CROWE, L Attending Clinician Caridad Attending Clinician Unavailable Caridad Admitting Clinician Unavailable Payers Payer Name Policy Type Policy Number Effective Date Expiration Date Janell de la garzazan [facility] D[facility] [id number] 2020 COMP HMO D SNP 00:00:00 [place] [id number] 2020 00:00:00 [facility] [id number] Problems Condition Condition Condition Status Onset Resolution Last Treating Co mments Source Name Details Category Date Date Treatment Clinician Date Other Other Disease Active 2020-09 Univers age-relate age-relate 2-07 it y of d [place] 00 Medical eye eye Branch Obesity Obesity Disease Active Univers (BMI (BMI 3-06 ity of 30-39.9) 30-39.9) 00:00: 00 Medical Branch Left knee Left knee Disease Active Uni vers pain pain 1-10 ity of 00:00: Medical Branch Shoulder Shoulder Disease Active Unive rs pain, pain, 5-10 ity of bilateral [facility] Foot pain, Foot pain, Disease Active U nivers left left 3-09 ity of 00:00: Medical Branch Raised Raised Problem Active [place] prostate Prostate da specific Specific Medica l antigen Antigen Group Allergies, Adverse Reactions, Alerts Allergy Allergy Status Severity Reaction(s) Onset Inactive Treating Comm ents Source Name Type Date Date Clinician NO KNOWN Drug Active Univers ALLERGIE Class ity of [facility] Social History Social Habit Start Date Stop Date Quantity Comments Source Exposure to 2022-02-06 2022-02-16 Not sure [facility] SARS-CoV-2 (event) 00:00:00 13:14:00 Medica l Branch Alcohol intake 2022-02-16 2022-02-16 0 /d [facility] 00:00:00 00:00:00 [facility] Tobacco use and 2015-11-15 2015-11-15 Never used [facility] exposure 00:00:00 00:00:00 [facility] Sex Ass[birth year] At [birth year] [facility] 00:00:00 00:00:00 Medical Branch Smoking Status Start Date Stop Date Source Never smoker [facility] acute hospital Medications Ordered Filled Start Stop Current Ordering Indication Dosage Frequency Signature Comments Components Source Medication Medication Date Date Medication? Clinician (SIG) Name Name methylPREDN Yes [id number] 84mg Take 21 Univers ISolone 5-23 9103 tablets by ity of (MEDROL, 00:00: mouth [place] MICHELE,) 4 mg 00 SEE-INSTRU Med ical tablets CTIONS. Branch follow package directions methylPREDN Yes [id number] 84mg Take 21 Univers ISolone 5-23 9103 tablets by ity of (MEDROL, 00:00: mouth [place] MICHELE,) 4 mg 00 SEE-INSTRU Med ical tablets CTIONS. Branch follow package directions methylPREDN Yes [id number] 84mg Take 21 Univers ISolone 5-23 9103 tablets by ity of (MEDROL, 00:00: mouth [place] MICHELE,) 4 mg 00 SEE-INSTRU Med ical tablets [facility]. Branch follow package directions Tamsulosin Tamsulosin Yes Rgeina 1 capsule Common HCl HCl [facility] acetaminoph acetaminoph No acetaminop [place] 300 [...] Name Observation Time Observation Value Comments Source Systolic blood 2022-02-16 18:24:00 161 mm[Hg] [facility] Diastolic blood 2022-02-16 18:24:00 96 mm[Hg] [facility] Heart rate 2022-02-16 18:24:00 65 /min [facility] Body height 2022-02-16 18:23:00 176.5 cm [facility] Body weight 2022-02-16 18:23:00 95.255 kg [facility] BMI 2022-02-16 18:23:00 30.57 kg/m2 [facility] Procedures Procedure Date / Time Performed Performing Clinician Archana e CT, urogram 2018-07-07 00:00:00 Pietro [facility] Plan of Care Planned Activity Planned Date Details Comments Source Diagnostic Test 2018-07-07 cytology, urine [facility] Pending 00:00:00 [code = cytology, Group urine] Encounters Start End Encounter Admission Attending Care Care Encounter Source Date/Time Date/Time Type Type Clinicians Facility Department ID 2021-10-22 Outpatient Oliveira, STLMLC STLMLC [id number] Common 14:27:24 Maira 50114 [facility] 2021-10-22 Outpatient Oliveira, STLMLC STLMLC [id number] Common 14:18:00 Maira 03753 [facility] 2021-10-22 Outpatient Chicot, STLMLC STLMLC [id number] Common 13:35:45 Regina 77340 [facility] 2021-10-22 Outpatient [place], STLMLC STLMLC [id number] Common 12:41:58 Regina 85411 [facility] 2021-10-22 Outpatient [place], STLMLC STLMLC [id number] Common 12:40:52 Regina 49232 [facility] 2021-10-22 Outpatient [place], STLMLC STLMLC [id number] Common 12:12:33 Regina 92176 [facility] 2021-10-22 Outpatient [place], STLMLC STLMLC [id number] Common 11:56:49 Regina [id number] [facility] 2021-10-22 Outpatient [place], STLMLC STLMLC [id number] Common 11:56:09 Regina 40340 [facility] 2021-10-22 Outpatient [place], STLMLC STLMLC [id number] Common 11:21:52 Regina 51151 [facility] 2021-10-22 Outpatient [place], STLMLC STLMLC [id number] Common 11:07:15 Regina 66058 [facility] 2021-10-22 Outpatient [place], STLMLC STLMLC [id number] Common 11:06:53 Regina 27602 [facility] 2021-10-22 Outpatient [place], STLMLC STLMLC [id number] Common 10:59:53 Regnia 03252 [facility] 2022-02-16 2022-02-16 Outpatient R [facility]IT [facility] [id number] Univers 13:27:13 23:59:00 [facility] 2022-02-16 2022-02-16 [facility] [id number] Univers 13:45:00 14:00:00 Visit [facility] [id number] it [facility] [id number] Ty as CHELLE?BLEA [id number] [address] OFFICE [facility] 2022-02-16 2022-02-16 [facility]phone [facility] [id number] Univers 00:00:00 00:00:00 [facility] [id number] it y of [place] [id number] Ty as CHELLE?BLEA [id number] [address] 2022-02-04 2022-02-04 ambulatory STLMLC STLMLC [id number] Common 00:00:00 00:00:00 [facility] 2022-01-19 2022-01-19 ambulatory STLMLC STLMLC [id number] Common 00:00:00 00:00:00 [facility] 2022-01-05 2022-01-05 ambulatory STLMLC STLMLC [id number] Common 00:00:00 00:00:00 [facility] 2021-12-22 2021-12-22 ambulatory STLMLC STLMLC [id number] Common 00:00:00 00:00:00 [facility] 2021-11-20 2021-11-20 ambulatory STLMLC STLMLC [id number] Common 00:00:00 00:00:00 [facility] 2021-10-21 2021-10-21 ambulatory STLMLC STLMLC [id number] Common 00:00:00 00:00:00 [facility] 2021-10-02 2021-10-02 ambulatory STLMLC STLMLC [id number] Common 00:00:00 00:00:00 [facility] 2021-09-26 2021-09-26 Outpatient LORI ANSH HERON [id number] LORI 08:19:00 13:21:00 [place] 2021-09-12 2021-09-12 ambulatory STLMLC STLMLC [id number] Common 00:00:00 00:00:00 [facility] 2021-09-08 2021-09-08 ambulatory STLMLC STLMLC [id number] Common 00:00:00 00:00:00 [facility] 2021-09-01 2021-09-01 ambulatory STLMLC STLMLC [id number] Common 00:00:00 00:00:00 [facility] 2021-08-26 2021-08-26 ambulatory STLMLC STLMLC [id number] Common 00:00:00 00:00:00 [facility] 2021-08-19 2021-08-19 ambulatory STLMLC STLMLC [id number] Common 00:00:00 00:00:00 [facility] 2021-07-29 2021-07-29 ambulatory STLMLC STLMLC [id number] Common 00:00:00 00:00:00 [facility] 2021-07-25 2021-07-25 Outpatient STLMLC STLMLC [id number] Common 00:00:00 00:00:00 [facility] 2021-07-21 2021-07-21 Outpatient STLMLC STLMLC [id number] Common 00:00:00 00:00:00 [facility] 2021-07-11 2021-07-11 Outpatient STLMLC STLMLC [id number] Common 00:00:00 00:00:00 [facility] 2021-07-11 2021-07-11 Outpatient STLMLC STLMLC [id number] Common 00:00:00 00:00:00 [facility] 2021-06-29 2021-06-29 Outpatient STLMLC STLMLC [id number] Common 00:00:00 00:00:00 [facility] 2021-06-24 2021-06-24 Outpatient STLMLC STLMLC [id number] Common 00:00:00 00:00:00 [facility] 2021-06-06 2021-06-06 Outpatient STLMLC STLMLC [id number] Common 00:00:00 00:00:00 [facility] 2021-05-05 2021-05-05 Outpatient STLMLC STLMLC [id number] Common 00:00:00 00:00:00 [facility] 2021-04-30 2021-04-30 Outpatient STLMLC STLMLC [id number] Common 00:00:00 00:00:00 [facility] 2021-04-30 2021-04-30 Outpatient STLMLC STLMLC [id number] Common 00:00:00 00:00:00 [facility] 2021-04-25 2021-04-25 Outpatient STLMLC STLMLC [id number] Common 00:00:00 00:00:00 [facility] 2021-04-03 2021-04-03 Outpatient STLMLC STLMLC [id number] Common 00:00:00 00:00:00 [facility] 2021-01-24 2021-01-24 Outpatient STLMLC STLMLC [id number] Common 00:00:00 00:00:00 [facility] 2021-01-17 2021-01-17 Outpatient STLMLC STLMLC [id number] Common 00:00:00 00:00:00 [facility] 2021-01-13 2021-01-13 Outpatient STLMLC STLMLC [id number] Common 00:00:00 00:00:00 [facility] 2021-01-10 2021-01-10 Outpatient STLMLC STLMLC [id number] Common 00:00:00 00:00:00 [facility] 2020-12-31 2020-12-31 Outpatient STLMLC STLMLC [id number] Common 00:00:00 00:00:00 [facility] 2020-12-25 2020-12-25 Office Meño [facility] [id number] 12:51:24 13:25:03 Visit [facility] [id number] Surgical [id number] Special [id number] Tyler Suarez 2020-12-23 2020-12-23 Outpatient STLMLC STLMLC [id number] Common 00:00:00 00:00:00 [facility] 2020-12-21 2020-12-21 Outpatient STLMLC STLMLC [id number] Common 00:00:00 00:00:00 [facility] 2020-12-19 2020-12-19 Outpatient STLMLC STLMLC [id number] Common 00:00:00 00:00:00 [facility] 2020-12-17 2020-12-17 Outpatient STLMLC STLMLC [id number] Common 00:00:00 00:00:00 [facility] 2020-12-17 2020-12-17 Outpatient STLMLC STLMLC [id number] Common 00:00:00 00:00:00 [facility] 2020 2020 Outpatient STLMLC STLMLC [id number] Common 00:00:00 00:00:00 [facility] 2020-12-09 2020-12-09 Outpatient STLMLC STLMLC [id number] Common 00:00:00 00:00:00 [facility] 2020-11-07 2020-11-07 Outpatient STLMLC STLMLC [id number] Common 00:00:00 00:00:00 [facility] 2020-11-04 2020-11-04 Outpatient STLMLC STLMLC [id number] Common 00:00:00 00:00:00 [facility] 2020-11-04 2020-11-04 Outpatient STLMLC STLMLC [id number] Common 00:00:00 00:00:00 [facility] 2020-10-15 2020-10-15 Outpatient SAAD, [facility] [id number] [facility] 07:11:00 12:00:00 [place] 2020-09-09 2020-09-09 Outpatient STLMLC STLMLC [id number] Common 00:00:00 00:00:00 [facility] 2020-08-14 2020-08-14 Outpatient Young_J MMG MMG [id number] [place] 02:37:00 02:37:00 [facility] 2020-07-16 2020-07-16 Outpatient STLMLC STLMLC [id number] Common 00:00:00 00:00:00 [facility] 2020-05-06 2020-05-06 [facility] [id number] Common 10:52:00 10:52:00 [facility] [address] [facility] 2020-04-10 2020-04-10 [facility] [id number] Common 13:19:00 13:19:00 [facility] [address] [facility] 2020-04-08 2020-04-08 [facility] [id number] Common 11:08:00 11:08:00 [facility] [address] [facility] 2020-04-05 2020-04-05 [facility] [id number] Common 18:34:00 18:34:00 [facility] it Road [facility] 2020-01-09 2020-01-09 [facility] [id number] Common 14:23:00 14:23:00 [facility] it Road [facility] 2020-01-08 2020-01-08 [facility] [id number] Common 08:00:00 08:00:00 [facility] it [address] [facility] 2019-11-22 2019-11-22 [facility] [id number] Common 19:45:00 19:45:[address] [facility] 2019-11-08 2019-11-08 [facility] [id number] Common 09:12:00 09:12:[address] [facility] 2019-11-07 2019-11-07 [facility] [id number] Common 08:17:00 08:17:[address] [facility] 2019-10-19 2019-10-19 [facility] [id number] Common 15:57:00 15:57:[address] [facility] 2019-10-18 2019-10-18 [facility] [id number] Common 09:24:00 09:24:[address] [facility] 2019-10-17 2019-10-17 [facility] [id number] Common 09:00:00 09:00:[address] [facility] 2019-10-09 2019-10-09 [facility] [id number] Common 10:27:00 10:27:[address] [facility] 2019-10-09 2019-10-09 [facility] [id number] Common 09:00:00 09:00:[address] [facility] 2018-08-08 2018-08-08 Saravanan [facility] [place] - [id number] M atagor 00:00:00 00:00:00 DO Terrance: [facility] hasmukh ramon [address] [place] [address] - [address], [facility], [place] [address] , Ph. [phone] 2018-08-04 2018-08-04 Jose Garcia MM [place] - [id number] M atagor 00:00:00 00:00:00 MD Bobbi: [facility] da [address] [place] [address] - [address], [place] [address] , Ph. 2018-07-07 2018-07-07 Jose RINCON [place] - [id number] [facility] 00:00:00 MD Bobbi: [facility] batres [address] [place] [address] - [facility], [place] [address] , Ph. Results This patient has no known results.
[2022-03-01] MEDS ORDERED: DIAZEPAM 5 MG TABLET ONE (21:58)
[2022-03-01 22:22] LABS: Absolute Lymphocytes (CBC) 1.7 K/uL (0.7-4.9); Hematocrit 41.4 % (39.6-49.0); Lymphocytes % 24.2 % (15.3-44.8); RBC Red Blood Cell Count 4.89 M/uL (4.33-5.43)
--- NOTE | 2022-03-02 00:45 | ER ---
Nurse's Notes [facility] Name: Moshe Ewing Age: 61 yrs Sex: Male : 1960 Arrival Date: 03/01/2022 Time: 21:11 Bed 14 Private MD: Diagnosis: neck pain;muscle spasm Presentation: 03/01 21:23 Chief complaint: Patient states: "I have neck pain but today it got worse. I have seen as6 doctors but it's a mess with insurance" pt denies any injury. Coronavirus screen: At this time, the client does not indicate any symptoms associated with coronavirus-19. Ebola Screen: No symptoms or risks identified at this time. Acute neurological deficit: none identified. Initial Sepsis Screen: Does the patient meet any 2 criteria? No. Patient's initial sepsis screen is negative. Does the patient have a suspected source of infection? No. Patient's initial sepsis screen is negative. Risk Assessment: Do you want to hurt yourself or someone else? Patient reports no desire to harm self or others. Onset of symptoms was March 01, 2022. Care prior to arrival: Medication(s) given: hydrocodone x2 IV initiated. 20 GA, in the left forearm. 21:23 Method Of Arrival: EMS: [facility] as6 21:23 Acuity: MYRIAM 3 as6 Triage Assessment: 21:27 General: Appears uncomfortable, Behavior is calm, cooperative. Pain: Complains of pain as6 in neck. Historical: - Allergies: 21:26 amlodipine; as6 - Home Meds: 21:26 clopidogrel 75 mg Oral tab 1 tab once daily [Active]; levothyroxine 75 mcg tab 1 tab as6 once daily [Active]; finasteride 5 mg Oral tab 1 tab once daily [Active]; losartan 100 mg Oral tab 1 tab once daily [Active]; metformin 500 mg Oral cpER 1 tab 1 tab with breakfast, 1 tab with lunch, 2 tabs with evening meal [Active]; tamsulosin 0.4 mg Oral cp24 1 cap once daily [Active]; lovastatin 40 mg Oral tab 1 tab once daily [Active]; - PMHx: 21:26 Diabetes - NIDDM; DVT; Hypercholesterolemia; Hypertension; Hypothyroidism; as6 - PSHx: 21:26 back sx; Cholecystectomy; foot/shoulder SX; L hand SX with plates placed; R BKA; as6 stimulator R back for legs; - Immunization history:: Client reports having NOT received the Covid vaccine. - Social history:: Smoking status: Patient denies any tobacco usage or history of. Screenin:45 Abuse screen: Denies threats or abuse. Nutritional screening: No deficits noted. ll3 Tuberculosis screening: No symptoms or risk factors identified. Fall Risk No fall in past 12 months (0 pts). No secondary diagnosis (0 pts). IV access (20 points). Ambulatory Aid- None/Bed Rest/Nurse Assist (0 pts). Gait- Impaired (20 pts.). Mental Status- Oriented to own ability (0 pts). Total Ramirez Fall Scale indicates Low Risk Score (25-44 pts). Fall prevention measures have been instituted. Side Rails Up X 2 Placed close to Nursing Station As available Patient and Family Educated on Fall Prevention Program and strategies. Assessment: 21:45 General: Appears uncomfortable, Behavior is calm, cooperative. Pain: Complains of pain ll3 in neck Pain currently is 10 out of 10 on a pain scale. Pain began Over 1 month ago Is continuous, episodic. Neuro: Level of Consciousness is awake, alert, obeys commands, Oriented to person, place, time, situation. Respiratory: No deficits noted. EENT: No deficits noted. Derm: Skin is pink, warm \\T\\ dry. Musculoskeletal: Circulation, motion, and sensation intact. Reports pain in neck Pain is 10 out of 10 on a pain scale. 23:01 Reassessment: Patient and/or family updated on plan of care and expected duration. Pain ll3 level reassessed. Patient is alert, oriented x 3, equal unlabored respirations, skin warm/dry/pink. States pain is 7/10, states Valium helped a bit. 03/02 01:30 Reassessment: No changes from previously documented assessment. Patient and/or family ll3 updated on plan of care and expected duration. Pain level reassessed. Patient is alert, oriented x 3, equal unlabored respirations, skin warm/dry/pink. Vital Signs: 03/01 21:23 BP 150 / 109; Pulse 93; Resp 18 S; Temp 98.5(TE); Pulse Ox 98% on R/A; Weight 95.25 kg as6 (R); Height 5 ft. 9 in. (175.26 cm) (R); Pain 10/10; 22:00 BP 146 / 88; Pulse 82; Resp 17; Pulse Ox 96% on R/A; ll3 23:05 BP 139 / 90; Pulse 71; Resp 18; Pulse Ox 97% on R/A; ll3 06 01:30 BP 142 / 90; Pulse 77; Resp 16; Pulse Ox 96% on R/A; ll3 06 21:23 Body Mass Index 31.01 (95.25 kg, 175.26 cm) as6 ED Course: 03/01 21:11 Patient arrived in ED. ja2 21:18 Jonh Liang DO is Attending Physician. ms3 21:26 Triage completed. as6 21:27 Arm band placed on. as6 21:29 Maintain EMS IV. Dressing intact. Good blood return noted. Site clean \\T\\ dry. Gauge \\T\\ as 6 site: 20g left forearm . 22:09 Sunita Alejandro, RN is Primary Nurse. ll3 22:45 Patient has correct armband on for positive identification. Bed in low position. Call ll3 light in reach. Side rails up X 1. 23:05 CT Neck Angio In Process Unspecified. EDMS 03/02 01:29 No provider procedures requiring assistance completed. IV discontinued, intact, ll3 bleeding controlled, No redness/swelling at site. Pressure dressing applied. Administered Medications: 03/01 21:55 Drug: Valium (diazepam) 5 mg Route: PO; ll3 23:01 Follow up: Response: No adverse reaction ll3 Medication: 22:00 VIS not applicable for this client. ll3 Outcome: 03/02 00:45 Discharge ordered by . ms3 01:29 Discharged to home ambulatory. ll3 01:29 Condition: stable 01:29 Discharge instructions given to patient, Instructed on discharge instructions, follow up and referral plans. medication usage, Demonstrated understanding of instructions, follow-up care, medications, Prescriptions given X 1. 01:31 Patient left the ED. ll3 Signatures: Dispatcher [employer] EDDC John Liang DO DO ms3 Felisha Franco ja2 Jae Azul RN RN as6 Sunita Alejandro RN RN ll3
--- NOTE | 2022-03-02 00:45 | EDPHYS ---
Physician Documentation [facility] Name: Moshe Ewing Age: 61 yrs Sex: Male : 1960 Arrival Date: 03/01/2022 Time: 21:11 Bed 14 Private MD: ED Physician Jonh Liang HPI: 03/01 22:22 This 61 yrs old Male presents to ER via EMS with complaints of Neck Pain, <24hrs Old. ms3 22:22 The patient or guardian complains of pain. The symptoms are located at the neck. Onset: ms3 The symptoms/episode began/occurred 3.5 hour(s) ago. Context: The problem was sustained at home. Associated signs and symptoms: The patient has no apparent associated signs or symptoms. The pain does not radiate. Modifying factors: The symptoms are alleviated by nothing. the symptoms are aggravated by nothing. Severity of symptoms: At their worst the symptoms were severe, in the emergency department the symptoms are unchanged. The patient has experienced similar episodes in the past, today's symptoms are similar. Historical: - Allergies: 21:26 amlodipine; as6 - Home Meds: 21:26 clopidogrel 75 mg Oral tab 1 tab once daily [Active]; levothyroxine 75 mcg tab 1 tab as6 once daily [Active]; finasteride 5 mg Oral tab 1 tab once daily [Active]; losartan 100 mg Oral tab 1 tab once daily [Active]; metformin 500 mg Oral cpER 1 tab 1 tab with breakfast, 1 tab with lunch, 2 tabs with evening meal [Active]; tamsulosin 0.4 mg Oral cp24 1 cap once daily [Active]; lovastatin 40 mg Oral tab 1 tab once daily [Active]; - PMHx: 21:26 Diabetes - NIDDM; DVT; Hypercholesterolemia; Hypertension; Hypothyroidism; as6 - PSHx: 21:26 back sx; Cholecystectomy; foot/shoulder SX; L hand SX with plates placed; R BKA; as6 stimulator R back for legs; - Immunization history:: Client reports having NOT received the Covid vaccine. - Social history:: Smoking status: Patient denies any tobacco usage or history of. ROS: 22:22 Constitutional: Negative for fever, and chills. ms3 22:22 Cardiovascular: Negative for chest pain, and palpitations. Respiratory: Negative for shortness of breath, cough, wheezing, and pleuritic chest pain, Abdomen/GI: Negative for abdominal pain, nausea, vomiting, diarrhea, and constipation, MS/Extremity: Negative for injury and deformity, Skin: Negative for injury, rash, and discoloration. 22:22 Neck: Positive for pain with movement, pain at rest. 22:22 All other systems are negative. Exam: 22:22 Constitutional: This is a well developed, well nourished patient who is awake, alert, ms3 and in no acute distress. Chest/axilla: Normal chest wall appearance and motion. Nontender with no deformity. Cardiovascular: Regular rate and rhythm with a normal S1 and S2. No gallops, murmurs, or rubs. Normal PMI, no JVD. No pulse deficits. Respiratory: Lungs have equal breath sounds bilaterally, clear to auscultation and percussion. No rales, rhonchi or wheezes noted. No increased work of breathing, no retractions or nasal flaring. Abdomen/GI: Soft, non-tender, with normal bowel sounds. No distension or tympany. No guarding or rebound. No evidence of tenderness throughout. MS/ Extremity: Pulses equal, no cyanosis. Neurovascular intact. Full, normal range of motion. Neuro: Awake and alert, GCS 15, oriented to person, place, time, and situation. Cranial nerves II-XII grossly intact. Motor strength 5/5 in all extremities. Sensory grossly intact. Cerebellar exam normal. Normal gait. 22:22 Neck: External neck: no acute changes, C-spine: vertebral tenderness, is not appreciated, ROM/movement: limited range of motion, that is moderate, in any direction, due to pain. Paraspinal mm spasms. Vital Signs: 21:23 BP 150 / 109; Pulse 93; Resp 18 S; Temp 98.5(TE); Pulse Ox 98% on R/A; Weight 95.25 kg as6 (R); Height 5 ft. 9 in. (175.26 cm) (R); Pain 10/10; 22:00 BP 146 / 88; Pulse 82; Resp 17; Pulse Ox 96% on R/A; ll3 23:05 BP 139 / 90; Pulse 71; Resp 18; Pulse Ox 97% on R/A; ll3 06/06 01:30 BP 142 / 90; Pulse 77; Resp 16; Pulse Ox 96% on R/A; ll3 03/01 21:23 Body Mass Index 31.01 (95.25 kg, 175.26 cm) as6 MDM: 03/01 21:33 Patient medically screened. ms3 22:22 Differential diagnosis: Degenerative Disc Disease Vertebral artery dissection vs muscle ms3 spasm. 03/02 00:45 Data reviewed: vital signs, nurses notes, lab test result(s), radiologic studies, CT ms3 scan. Counseling: I had a detailed discussion with the patient and/or guardian regarding: the historical points, exam findings, and any diagnostic results supporting the discharge/admit diagnosis, lab results, radiology results, the need for outpatient follow up, to return to the emergency department if symptoms worsen or persist or if there are any questions or concerns that arise at home. ED course: Discussed CT scan, labs , PE findings with patient. Patient to follow up with in 2-3 days. Patient understands/ agrees with plan. All questions answered. Return precautions given to include worsening symptoms, or any other concerns. Patient is improved, in NAD, non-toxic appearing, ambulatory in ED, speaking full sentences.. 03/01 21:35 Order name: CBC with Diff; Complete Time: 22:33 ms3 03/01 21:35 Order name: BMP; Complete Time: 22:33 ms3 03/01 21:35 Order name: CT Neck Angio ms3 Administered Medications: 03/01 21:55 Drug: Valium (diazepam) 5 mg Route: PO; ll3 23:01 Follow up: Response: No adverse reaction ll3 Disposition Summary: 03/02/22 00:45 Discharge Ordered Location: Home ms3 Condition: Stable ms3 Diagnosis - neck pain ms3 - muscle spasm ms3 Followup: ms3 - With: Private Physician - When: 2 - 3 days - Reason: Recheck today's complaints Discharge Instructions: - Discharge Summary Sheet ms3 Forms: - Medication Reconciliation Form ms3 - Thank You Letter ms3 - Antibiotic Education ms3 - Prescription Opioid Use ms3 Prescriptions: - Cyclobenzaprine 10 mg Oral Tablet - take 1 tablet by ORAL route every 8 hours As needed; 30 tablet; Refills: 0, ms3 Product Selection Permitted Signatures: Dispatcher [employer] Jonh Liang, DO DO ms3 Jae Azul, RN RN as6 Sunita Alejandro, RN RN ll3
[2022-03-02 02:11] VITALS: BP 142/90; TEMP 98.5; O2SAT 96
--- NOTE | 2022-03-03 12:44 | RAD REPORT ---
EXAM DESCRIPTION: Neck Angio CLINICAL HISTORY: 61-year-old male with acute neck pain. COMPARISON: 01/06/2022 TECHNIQUE: CT angiography of the neck following dynamic bolus of intravenous contrast. 3D reformatte d reconstructions were performed on an independent workstation. This exam was performed according to our departmental dose optimization program which includes use of automated exposure control, adjustme nt of the mA and/or kV according to patient size and/or use of iterative reconstruction technique. FINDINGS: CTA neck: Atherosclerotic irregularity of the proximal LEFT internal carotid artery without significant stenosi s by NASCET criteria. Mild to moderate atherosclerotic narrowing of the bilateral V4 segment intracra nial vertebral arteries bilaterally secondary to circumferential calcified plaque. Patent flow opacification of the aortic arch origin right brachiocephalic, left common carotid, and l eft subclavian arteries. The bilateral vertebral artery origins are normal. Patent flow opacification through the bilateral common carotid arteries, carotid bifurcations, cervic al internal/external carotid, and vertebral arteries. IMPRESSION: 1. Patent flow related enhancement of the cervical vasculature without significant nu nosis by NASCET criteria. 2. No specific findings to suggest etiology of the patient's neck pain. Electronically signed by: Anastasia Tubbs MD 03/01/2022 11:22 PM CDT Due to temporary technical issues with the PACS/Fluency reporting system, reports are being signed by the in house radiologists without review as a courtesy to insure prompt reporting. The interpreting radiologist is fully responsible for the content of the report.
== END 2022-03-02 01:31 | disposition home or self-care (01) ==
LOC: ER 20:59
DX: M62.838 Other muscle spasm (principal); E11.9 Type 2 diabetes mellitus without complications; I10 Essential (primary) hypertension; E03.9 Hypothyroidism, unspecified; Z89.511 Acquired absence of right leg below knee; Z86.718 Personal history of other venous thrombosis and embolism; Z88.8 Allergy status to other drugs, medicaments and biological substances
CPT/HCPCS: 85025; 80048; 36415; 70498; 99284; Q9967

== ENCOUNTER 2022-04-08 23:07 | Emergency (ER) | payer OTHER ==
[2022-04-08] MEDS ORDERED: DIAZEPAM 5 MG TABLET ONE (23:28)
[2022-04-08] MEDS ORDERED: MORPHINE 4 MG/ML SYR ONE (23:29)
--- NOTE | 2022-04-09 01:43 | EDPHYS ---
Physician Documentation [facility] Name: Moshe Ewing Age: 61 yrs Sex: Male : 1960 Arrival Date: 04/08/2022 Time: 23:08 Bed 19 Private MD: ED Physician Jonh Liang HPI: 04/08 23:18 This 61 yrs old Male presents to ER via Unassigned with complaints of neck pain. ms3 23:18 The patient or guardian complains of pain, that is chronic. The symptoms are located at ms3 the Left side of neck. Onset: The symptoms/episode began/occurred acutely, 5 hour(s) ago. Context: The problem was sustained at home. Associated signs and symptoms: Pertinent negatives: chills, headache, numbness, tingling, vomiting, weakness. The pain does not radiate. Modifying factors: The symptoms are alleviated by nothing. the symptoms are aggravated by nothing. Severity of symptoms: At their worst the symptoms were severe, in the emergency department the symptoms a " 10" out of "10". The patient has experienced similar episodes in the past, chronically. Historical: - Allergies: 23:35 amlodipine; kd3 - Home Meds: 23:35 clopidogrel 75 mg Oral tab 1 tab once daily [Active]; finasteride 5 mg Oral tab 1 tab kd3 once daily [Active]; levothyroxine 75 mcg tab 1 tab once daily [Active]; lovastatin 40 mg Oral tab 1 tab once daily [Active]; losartan 100 mg Oral tab 1 tab once daily [Active]; metformin 500 mg Oral cpER 1 tab 1 tab with breakfast, 1 tab with lunch, 2 tabs with evening meal [Active]; tamsulosin 0.4 mg Oral cp24 1 cap once daily [Active]; - PMHx: 23:35 Diabetes - NIDDM; DVT; Hypertension; Hypothyroidism; Hypercholesterolemia; kd3 - PSHx: 23:35 Cholecystectomy; L hand SX with plates placed; R BKA; foot/shoulder SX; back sx; kd3 stimulator R back for legs; - Immunization history:: Adult Immunizations up to date. - Social history:: Smoking status: unknown. ROS: 23:18 Constitutional: Negative for fever, and chills. ENT: Negative for injury, pain, and ms3 discharge. 23:18 Respiratory: Negative for shortness of breath, cough, wheezing, and pleuritic chest pain, Abdomen/GI: Negative for abdominal pain, nausea, vomiting, diarrhea, and constipation, MS/Extremity: Negative for injury and deformity, Skin: Negative for injury, rash, and discoloration, Neuro: Negative for headache, weakness, numbness, tingling. 23:18 Neck: Positive for pain with movement, pain at rest. 23:18 All other systems are negative. Exam: 23:18 Constitutional: This is a well developed, well nourished patient who is awake, alert, ms3 and in no acute distress. Head/Face: Normocephalic, atraumatic. Eyes: Pupils equal round and reactive to light, extra-ocular motions intact. Lids and lashes normal. Conjunctiva and sclera are non-icteric and not injected. Periorbital areas with no swelling, redness, or edema. Chest/axilla: Normal chest wall appearance and motion. Nontender with no deformity. Cardiovascular: Regular rate and rhythm with a normal S1 and S2. No gallops, murmurs, or rubs. Normal PMI, no JVD. No pulse deficits. Respiratory: Lungs have equal breath sounds bilaterally, clear to auscultation and percussion. No rales, rhonchi or wheezes noted. No increased work of breathing, no retractions or nasal flaring. Abdomen/GI: Soft, non-tender, with normal bowel sounds. No distension or tympany. No guarding or rebound. No evidence of tenderness throughout. Skin: Warm, dry with normal turgor. Normal color with no rashes, no lesions, and no evidence of cellulitis. Psych: Awake, alert, with orientation to person, place and time. Behavior, mood, and affect are within normal limits. 23:18 Neck: External neck: no acute changes, C-spine: no acute changes, ROM/movement: pain, that is severe, with any movement. Vital Signs: 23:29 BP 170 / 97; Pulse 72; Resp 26; Temp 98.2; Pulse Ox 100% ; Weight 92.99 kg; Height 5 kd3 ft. 9 in. (175.26 cm); Pain 10/10; 23:29 Body Mass Index 30.27 (92.99 kg, 175.26 cm) kd3 MDM: 23:15 Patient medically screened. ms3 04/09 03:34 Differential diagnosis: cervical strain, Degenerative Disc Disease. Data reviewed: ms3 vital signs, nurses notes, old medical records, and as a result, I will discharge patient. Counseling: I had a detailed discussion with the patient and/or guardian regarding: the historical points, exam findings, and any diagnostic results supporting the discharge/admit diagnosis, the need for outpatient follow up, to return to the emergency department if symptoms worsen or persist or if there are any questions or concerns that arise at home. ED course: Discussed physical exam findings with patient. Patient to follow-up with ortho spine in 2 to 3 days. Patient understands and agrees with plan. All questions were answered. Return precautions discussed include worsening symptoms, or any other concerns. On reevaluation patient is improved, alert and oriented x4, in no apparent distress, nontoxic-appearing, speaking full sentences, ambulatory in emergency department. . Administered Medications: 04/08 23:28 Drug: morphine 4 mg Route: IVP; Infused Over: 4 mins; Site: right hand; kd3 04/09 02:08 Follow up: Response: No adverse reaction kd3 04/08 23:29 Drug: Valium (diazepam) 5 mg Route: PO; kd3 04/09 02:08 Follow up: Response: No adverse reaction kd3 Disposition Summary: 04/09/22 01:42 Discharge Ordered Location: Home ms3 Condition: Stable ms3 Diagnosis - Neck pain ms3 Followup: ms3 - With: Private Physician - When: 2 - 3 days - Reason: Recheck today's complaints Discharge Instructions: - Discharge Summary Sheet ms3 - Musculoskeletal Pain ms3 Forms: - Medication Reconciliation Form ms3 - Thank You Letter ms3 - Antibiotic Education ms3 - Prescription Opioid Use ms3 Signatures: Jonh Liang DO DO ms3 Kenzie Bee, RN RN kd3
--- NOTE | 2022-04-09 01:43 | ER ---
Nurse's Notes [facility] Name: Moshe Ewing Age: 61 yrs Sex: Male : 1960 Arrival Date: 04/08/2022 Time: 23:08 Bed 19 Private MD: Diagnosis: Neck pain Presentation: 04/08 23:32 Chief complaint: EMS states: Pt complains of severe neck pain. Pt states that he has kd3 had the neck pain for a long time but it is worse tonight. Pt began to hyperventilate and had a bp of 200/100 and started complaining of chest pain. pt was given labetalol, 50 of fentanyl and 4 of Zofran en route. Coronavirus screen: Vaccine status: Patient reports being unvaccinated. Ebola Screen: No symptoms or risks identified at this time. Initial Sepsis Screen: Does the patient meet any 2 criteria? No. Patient's initial sepsis screen is negative. Does the patient have a suspected source of infection? No. Patient's initial sepsis screen is negative. Risk Assessment: Do you want to hurt yourself or someone else? Patient reports no desire to harm self or others. Onset of symptoms was April 08, 2022. 23:32 Method Of Arrival: EMS kd3 23:32 Acuity: MYRIAM 3 kd3 Triage Assessment: 23:35 General: Appears in no apparent distress. Behavior is anxious. Pain: Complains of pain kd3 in neck. Cardiovascular: Patient's skin is warm and dry. Historical: - Allergies: 23:35 amlodipine; kd3 - Home Meds: 23:35 clopidogrel 75 mg Oral tab 1 tab once daily [Active]; finasteride 5 mg Oral tab 1 tab kd3 once daily [Active]; levothyroxine 75 mcg tab 1 tab once daily [Active]; lovastatin 40 mg Oral tab 1 tab once daily [Active]; losartan 100 mg Oral tab 1 tab once daily [Active]; metformin 500 mg Oral cpER 1 tab 1 tab with breakfast, 1 tab with lunch, 2 tabs with evening meal [Active]; tamsulosin 0.4 mg Oral cp24 1 cap once daily [Active]; - PMHx: 23:35 Diabetes - NIDDM; DVT; Hypertension; Hypothyroidism; Hypercholesterolemia; kd3 - PSHx: 23:35 Cholecystectomy; L hand SX with plates placed; R BKA; foot/shoulder SX; back sx; kd3 stimulator R back for legs; - Immunization history:: Adult Immunizations up to date. - Social history:: Smoking status: unknown. Screenin/14 02:07 Abuse screen: Denies threats or abuse. Denies injuries from another. Nutritional kd3 screening: No deficits noted. Tuberculosis screening: No symptoms or risk factors identified. Fall Risk Gait- Weak (10 pts.). Assessment: 02:07 Pain: Pain radiates to neck Pain began gradually. kd3 Vital Signs: 04/08 23:29 BP 170 / 97; Pulse 72; Resp 26; Temp 98.2; Pulse Ox 100% ; Weight 92.99 kg; Height 5 kd3 ft. 9 in. (175.26 cm); Pain 10; 23:29 Body Mass Index 30.27 (92.99 kg, 175.26 cm) kd3 ED Course: 23:08 Patient arrived in ED. kd3 23:09 Kenzie Bee RN is Primary Nurse. kd3 23:15 Jonh Liang DO is Attending Physician. ms3 23:35 Triage completed. kd3 23:35 Arm band placed on. kd3 04/09 02:07 Patient has correct armband on for positive identification. Client placed on continuous kd3 cardiac and pulse oximetry monitoring. NIBP monitoring applied. 02:07 No provider procedures requiring assistance completed. IV discontinued, intact, kd3 bleeding controlled, No redness/swelling at site. Pressure dressing applied. Patient maintains SpO2 saturation greater than 95% on room air. Administered Medications: 04/08 23:28 Drug: morphine 4 mg Route: IVP; Infused Over: 4 mins; Site: right hand; kd3 04/09 02:08 Follow up: Response: No adverse reaction kd3 04/08 23:29 Drug: Valium (diazepam) 5 mg Route: PO; kd3 04/09 02:08 Follow up: Response: No adverse reaction kd3 Medication: 02:07 VIS not applicable for this client. kd3 Outcome: 01:42 Discharge ordered by . ms3 02:07 Discharged to home ambulatory. kd3 02:07 Condition: stable 02:07 Discharge instructions given to patient, Instructed on discharge instructions, follow up and referral plans. Demonstrated understanding of instructions, follow-up care. 02:08 Patient left the ED. kd3 Signatures: Jonh Liang DO DO ms3 Kenzie Bee, RN RN kd3
[2022-04-09 02:17] VITALS: BP 170/97; TEMP 98.2; O2SAT 100
== END 2022-04-09 02:08 | disposition home or self-care (01) ==
LOC: ER 23:07
DX: M54.2 Cervicalgia (principal); E11.9 Type 2 diabetes mellitus without complications; E03.9 Hypothyroidism, unspecified; I10 Essential (primary) hypertension; Z86.718 Personal history of other venous thrombosis and embolism; Z88.8 Allergy status to other drugs, medicaments and biological substances; Z89.511 Acquired absence of right leg below knee
CPT/HCPCS: 96374; 99284

== ENCOUNTER 2022-04-24 23:21 | Observation (INO) | payer OTHER ==
[2022-04-24 23:37] LABS: Hematocrit 39.3 % (39.6-49.0); MCV 84.2 fL (80-100); MPV 7.6 fL (7.6-11.3); RBC Red Blood Cell Count 4.67 M/uL (4.33-5.43)
[2022-04-24 23:51] LABS: Potassium 4.1 mmol/L (3.5-5.1); Troponin High Sensitivity 5.4 pg/mL (<58.9)
[2022-04-24] MEDS ORDERED: MORPHINE 4 MG/ML SYR ONE (23:52)
[2022-04-24] MEDS ORDERED: ONDANSETRON 4 MG/2 ML VIAL ONE (23:52)
--- NOTE | 2022-04-25 01:15 | ER ---
Nurse's Notes [facility] Name: Moshe Ewing Age: 61 yrs Sex: Male : 1960 Arrival Date: 04/24/2022 Time: 23:22 Bed 19 Private MD: Diagnosis: Chest pain, unspecified Presentation: 04/24 23:25 Chief complaint: Patient states: neck pain x 2 hours. Coronavirus screen: Vaccine kl status: Patient reports being unvaccinated. Ebola Screen: Patient negative for fever greater than or equal to 101.5 degrees Fahrenheit, and additional compatible Ebola Virus Disease symptoms. Initial Sepsis Screen: Does the patient meet any 2 criteria? No. Patient's initial sepsis screen is negative. Does the patient have a suspected source of infection? No. Patient's initial sepsis screen is negative. Risk Assessment: Do you want to hurt yourself or someone else? Patient reports no desire to harm self or others. Onset of symptoms was April 24, 2022 at 21:00. 23:25 Method Of Arrival: EMS: [facility] 23:25 Acuity: MYRIAM 3 kl 23:49 Note pt reports has bone spurs in neck and is undergoing treatment awaiting on insurance approval for further testing. Care prior to arrival: Medication(s) given: ASA, 325 mg, Nitroglycerin, x 2, Fentanyl 100mcg. Triage Assessment: 23:39 General: Appears uncomfortable, well developed, well nourished, Behavior is calm, kl quiet. Pain: Complains of pain in back of neck Pain currently is 10 out of 10 on a pain scale. EENT: No deficits noted. No signs and/or symptoms were reported regarding the EENT system. Neuro: [place] Agitation-Sedation Scale (RASS): 0 - Alert and Calm Level of Consciousness is awake, alert, obeys commands, Oriented to person, place, time, situation, Seating Captain are equal bilaterally. Cardiovascular: Reports Heart tones S1 S2 Capillary refill < 3 seconds Pulses are palpable in left posterior tibial artery Rhythm is sinus rhythm. Respiratory: No deficits noted. Airway is patent Trachea midline Respiratory effort is even, unlabored, Breath sounds are clear bilaterally. GI: No deficits noted. Bowel sounds present X 4 quads. Abd is soft and non tender X 4 quads. : No deficits noted. No signs and/or symptoms were reported regarding the genitourinary system. Derm: No deficits noted. No signs and/or symptoms reported regarding the dermatologic system. Historical: - Allergies: 23:37 amlodipine; kl - Home Meds: 23:37 clopidogrel 75 mg Oral tab 1 tab once daily [Active]; finasteride 5 mg Oral tab 1 tab kl once daily [Active]; levothyroxine 75 mcg tab 1 tab once daily [Active]; losartan 100 mg Oral tab 1 tab once daily [Active]; lovastatin 40 mg Oral tab 1 tab once daily [Active]; metformin 500 mg Oral cpER 1 tab 1 tab with breakfast, 1 tab with lunch, 2 tabs with evening meal [Active]; tamsulosin 0.4 mg Oral cp24 1 cap once daily [Active]; - PMHx: 23:37 Diabetes - NIDDM; DVT; Hypercholesterolemia; Hypertension; Hypothyroidism; kl - PSHx: 23:37 back sx; Cholecystectomy; foot/shoulder SX; L hand SX with plates placed; R BKA; kl stimulator R back for legs; cadriac stent; - Immunization history:: Adult Immunizations not up to date. Screenin:28 Abuse screen: Denies threats or abuse. Denies injuries from another. Nutritional hb screening: No deficits noted. Tuberculosis screening: No symptoms or risk factors identified. Fall Risk None identified. Assessment: 04/25 01:02 Reassessment: Patient and/or family updated on plan of care and expected duration. Pain kl level reassessed. Patient is alert, oriented x 3, equal unlabored respirations, skin warm/dry/pink. Patient states feeling better. Vital Signs: 04/24 23:28 BP 166 / 101; Pulse 76; Resp 18; Pulse Ox 99% on R/A; Pain 10/10; hb 23:42 BP 128 / 80; Pulse 69; Resp 18; Pulse Ox 99% ; Weight 98 kg (M); kl 04/25 00:01 BP 148 / 87; Pulse 73; Resp 18; Pulse Ox 100% on 2 lpm NC; Pain 8/10; kl 01:01 BP 148 / 95; Pulse 66; Resp 20; Pulse Ox 99% on 2 lpm NC; Pain 7/10; kl ED Course: 04/24 23:22 Patient arrived in ED. mw2 23:22 Maintain EMS IV. Dressing intact. Good blood return noted. Site clean \\T\\ dry. Gauge \\T\\ hb site: 20gRAC. 23:28 Michael Sánchez MD is Attending Physician. [facility] 23:30 Arm band placed on. 23:37 Triage completed. 04/25 00:39 XRAY Chest (1 view) In Process Unspecified. EDMS 01:02 No apparent distress. Resting quietly. 01:14 Alberto Funk MD is Hospitalizing Provider. [facility] 01:44 COVID-19 SARS RT PCR (Document "Date of Onset" if Symptomatic) Sent. [facility] 01:44 COVID swab sent to lab. [facility] 01:44 Patient has correct armband on for positive identification. Bed in low position. Call [facility] light in reach. Side rails up X2. Warm blanket given. monitoring manager on. Pulse ox on. NIBP on. Administered Medications: 04/24 23:48 Drug: Zofran (Ondansetron) 4 mg Route: IVP; Site: right antecubital; 23:49 Drug: morphine 4 mg Route: IVP; Infused Over: 4 mins; Site: right antecubital; Medication: 23:30 VIS not applicable for this client. Outcome: 04/25 01:14 Decision to Hospitalize by Provider. [facility] 17:48 Patient left the ED. eb Signatures: Dispatcher [employer] Patria Anderson RN RN kl Baxter, Heather, RN RN hb Martinez, Maria [facility] Nimo Pandey [facility] Karen Daniel Michael Sánchez MD MD 7 Corrections: (The following items were deleted from the chart) 01:04/24 23:39 Musculoskeletal: Left BKA prosthetic in place [facility]
--- NOTE | 2022-04-25 01:15 | EDPHYS ---
Physician Documentation [facility] Name: Moshe Ewing Age: 61 yrs Sex: Male : 1960 Arrival Date: 04/24/2022 Time: 23:22 Bed 19 Private MD: ED Physician Michael Sánchez HPI: 04/24 23:30 This 61 yrs old Male presents to ER via EMS with complaints of Chest Pain. mh7 23:30 The patient or guardian reports chest pain that is located primarily in the substernal mh7 area. Onset: today, 2 hour(s) ago. The pain does not radiate. 23:30 Associated signs and symptoms: Pertinent negatives: abdominal pain, cough, diaphoresis, mh7 dizziness, headache, lower extremity pain, lower extremity swelling, lightheadedness, nausea, near syncope, palpitations, recent travel, shortness of breath, syncope, vomiting. 23:30 The chest pain is described as a pressure. Duration: The patient or guardian reports mh7 multiple episodes, that are intermittent, that wax and wane, with no pattern. Modifying factors: The symptoms are alleviated by NTG, X2. the symptoms are aggravated by nothing. Severity of pain: At its worst the pain was moderate today, in the emergency department the pain has improved moderately. EMS care prior to arrival includes: nitroglycerin, x 1. 23:30 Also complains of posterior neck pain that has been recurrent for several months.. mh7 Historical: - Allergies: 23:37 amlodipine; kl - Home Meds: 23:37 clopidogrel 75 mg Oral tab 1 tab once daily [Active]; finasteride 5 mg Oral tab 1 tab kl once daily [Active]; levothyroxine 75 mcg tab 1 tab once daily [Active]; losartan 100 mg Oral tab 1 tab once daily [Active]; lovastatin 40 mg Oral tab 1 tab once daily [Active]; metformin 500 mg Oral cpER 1 tab 1 tab with breakfast, 1 tab with lunch, 2 tabs with evening meal [Active]; tamsulosin 0.4 mg Oral cp24 1 cap once daily [Active]; - PMHx: 23:37 Diabetes - NIDDM; DVT; Hypercholesterolemia; Hypertension; Hypothyroidism; kl - PSHx: 23:37 back sx; Cholecystectomy; foot/shoulder SX; L hand SX with plates placed; R BKA; kl stimulator R back for legs; cadriac stent; - Immunization history:: Adult Immunizations not up to date. ROS: 23:30 Constitutional: Negative for fever, chills, and weight loss, Eyes: Negative for injury, mh7 pain, redness, and discharge, ENT: Negative for injury, pain, and discharge, Respiratory: Negative for shortness of breath, cough, wheezing, and pleuritic chest pain, Abdomen/GI: Negative for abdominal pain, nausea, vomiting, diarrhea, and constipation, Back: Negative for injury and pain, : Negative for injury, bleeding, discharge, and swelling, MS/Extremity: Negative for injury and deformity, Skin: Negative for injury, rash, and discoloration, Neuro: Negative for headache, weakness, numbness, tingling, and seizure, Psych: Negative for depression, anxiety, suicide ideation, homicidal ideation, and hallucinations, Allergy/Immunology: Negative for hives, rash, and allergies, Endocrine: Negative for neck swelling, polydipsia, polyuria, polyphagia, and marked weight changes, Hematologic/Lymphatic: Negative for swollen nodes, abnormal bleeding, and unusual bruising. Exam: 23:30 Head/Face: Normocephalic, atraumatic. Eyes: Pupils equal round and reactive to light, mh7 extra-ocular motions intact. Lids and lashes normal. Conjunctiva and sclera are non-icteric and not injected. Cornea within normal limits. Periorbital areas with no swelling, redness, or edema. 23:30 Chest/axilla: Normal chest wall appearance and motion. Nontender with no deformity. No lesions are appreciated. Cardiovascular: Regular rate and rhythm with a normal S1 and S2. No gallops, murmurs, or rubs. Normal PMI, no JVD. No pulse deficits. Respiratory: Lungs have equal breath sounds bilaterally, clear to auscultation and percussion. No rales, rhonchi or wheezes noted. No increased work of breathing, no retractions or nasal flaring. Abdomen/GI: Soft, non-tender, with normal bowel sounds. No distension or tympany. No guarding or rebound. No evidence of tenderness throughout. Back: No spinal tenderness. No costovertebral tenderness. Full range of motion. Skin: Warm, dry with normal turgor. Normal color with no rashes, no lesions, and no evidence of cellulitis. MS/ Extremity: Pulses equal, no cyanosis. Neurovascular intact. Full, normal range of motion. Neuro: Awake and alert, GCS 15, oriented to person, place, time, and situation. Cranial nerves II-XII grossly intact. Motor strength 5/5 in all extremities. Sensory grossly intact. Cerebellar exam normal. Normal gait. Psych: Awake, alert, with orientation to person, place and time. Behavior, mood, and affect are within normal limits. 23:30 Constitutional: The patient appears in no acute distress, alert, awake, uncomfortable. 23:30 Neck: External neck: tenderness, that is moderate, of the left mid cervical area, right mid cervical area, left trapezius and right trapezius, C-spine: appears grossly normal, Thyroid: appears normal, Trachea: is midline with no obvious abnormalities, Lymph nodes: no appreciated lymphadenopathy. Vital Signs: 23:28 BP 166 / 101; Pulse 76; Resp 18; Pulse Ox 99% on R/A; Pain 10/10; hb 23:42 BP 128 / 80; Pulse 69; Resp 18; Pulse Ox 99% ; Weight 98 kg (M); kl 04/25 00:01 BP 148 / 87; Pulse 73; Resp 18; Pulse Ox 100% on 2 lpm NC; Pain 8/10; kl 01:01 BP 148 / 95; Pulse 66; Resp 20; Pulse Ox 99% on 2 lpm NC; Pain 7/10; kl MDM: 01:13 Differential diagnosis: abnormal EKG, acute myocardial infarction, anxiety, coronary mh7 artery disease chest wall pain, costochondritis, esophagitis, gastritis, gastroesophageal reflux disease (GERD). HEART Score: History: Moderately Suspicious (1), ECG: Non specific repolarization disturbance / LBTB / PM (1), Age: > 45 and < 65 years (1), Risk Factors: > or = 3 Risk factors for atherosclerotic disease (2), [Hypercholesterolemia] [Hypertension] [DM] Troponin: < or = 1 x Normal Limit (0), Total Score = 5. Data reviewed: vital signs, nurses notes, EMS record, old medical records, lab test result(s), cardiac enzymes, CBC, electrolytes, EKG, radiologic studies, plain films. Data interpreted: Pulse oximetry: on room air is 99 %. Interpretation: normal. Counseling: I had a detailed discussion with the patient and/or guardian regarding: the historical points, exam findings, and any diagnostic results supporting the discharge/admit diagnosis, the presence of at least one elevated blood pressure reading (>120/80) during this emergency department visit, lab results, radiology results, the need for further work-up and treatment in the hospital. Response to treatment: the patient's symptoms have mildly improved after treatment. 01:14 Patient medically screened. [facility] 04/24 23:22 Order name: Basic Metabolic Panel; Complete Time: 00:19 04/24 23:22 Order name: CBC with Diff; Complete Time: 23:42 04/24 23:22 Order name: Troponin HS; Complete Time: 00:19 04/25 01:27 Order name: COVID-19 SARS RT PCR (Document "Date of Onset" if Symptomatic); Complete [facility] Time: 03:27 04/25 04:01 Order name: Urine Dipstick-Ancillary; Complete Time: 04:18 [facility] 04/25 06:09 Order name: Troponin High Sensitivity [facility] 04/24 23:22 Order name: XRAY Chest (1 view) 04/24 23:22 Order name: EKG; Complete Time: 23:24 04/25 06:09 Order name: Lipid Profile [facility] 04/25 06:09 Order name: Thyroid Stimulating Hormone [facility] 04/25 06:22 Order name: T4 Free [facility] 04/25 11:42 Order name: Glucose, Ancillary Testing [facility] 04/24 23:22 Order name: Cardiac monitoring; Complete Time: 23:23 04/24 23:22 Order name: EKG - Nurse/Tech; Complete Time: 23:40 04/24 23:22 Order name: IV Saline Lock; Complete Time: 23:23 04/24 23:22 Order name: Labs collected and sent; Complete Time: 23:40 04/24 23:22 Order name: O2 Per Protocol; Complete Time: 23:23 04/24 23:22 Order name: O2 Sat Monitoring; Complete Time: 23:23 hb Administered Medications: 04/24 23:48 Drug: Zofran (Ondansetron) 4 mg Route: IVP; Site: right antecubital; 23:49 Drug: morphine 4 mg Route: IVP; Infused Over: 4 mins; Site: right antecubital; kl Disposition Summary: 04/25/22 01:14 Hospitalization Ordered Hospitalization Status: Observation 7 Provider: Alberto Funk Condition: Stable mh7 Problem: new mh7 Symptoms: have improved mh7 Bed/Room Type: Standard 7 Location: [facility] ER HOLD(04/25/22 01:19) mw Room Assignment: ERHOLD-(04/25/22 01:19) mw Diagnosis - Chest pain, unspecified mh7 Forms: - Medication Reconciliation Form 7 - SBAR form 7 Signatures: Dispatcher [employer] EDPatria Kaur RN RN kl Webb, Martha, RN RN mw Baxter, Heather, RN RN hb Holmes, Maurice, MD MD 7 Clotilde Krishnan PA PA sb3 Corrections: (The following items were deleted from the chart) 04/25 00:37 04/24 23:30 Also complains of neck pain. [place] [id number] 04/25 01:19 01:14 Telemetry/MedSurg (observation) [facility] 01:19 01:14 mh7 mw
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
[2022-04-25] MEDS ORDERED: HYDROMORPHONE HCL 1 MG/ML INJ IV PRN (01:48)
[2022-04-25] MEDS ORDERED: HYDROMORPHONE HCL 1 MG/ML INJ ONE (03:28)
[2022-04-25] MEDS ORDERED: ONDANSETRON 4 MG/2 ML VIAL IV PRN (03:31)
[2022-04-25] MEDS ORDERED: HYDRALAZINE HCL 20 MG/ML VIAL IV PRN (03:31)
[2022-04-25] MEDS ORDERED: ACETAMINOPHEN 500 MG TAB PO PRN (03:31)
[2022-04-25 03:49] VITALS: BMI 31.8
[2022-04-25 04:01] LABS: Urine Blood Negative (Negative); Urine Glucose Negative (Negative); Urine Protein Negative (Negative); Urine Specific Gravity 1.025 (1.005-1.030); Urine pH 5.5 (5.0-7.0)
[2022-04-25 06:02] LABS: Troponin High Sensitivity 5.4 pg/mL (<58.9)
[2022-04-25 06:09] LABS: Thyroid Stimulating Hormone 5.2 uIU/mL (0.360-3.740)
[2022-04-25] MEDS ORDERED: ENOXAPARIN 40 MG/0.4 ML SQ ONE (08:51)
[2022-04-25] MEDS ORDERED: ASPIRIN 81 MG CHEWABLE TABLET ONE (08:51)
[2022-04-25] MEDS ORDERED: ENOXAPARIN 40 MG/0.4 ML SQ SCH (09:00)
[2022-04-25] MEDS ORDERED: ASPIRIN EC 81 MG TAB PO SCH (09:00)
[2022-04-25 10:07] VITALS: TEMP 98.6
[2022-04-25] MEDS ORDERED: PNEUMOCOCCAL VACCINE 0.5 ML IMVAC ONE (12:00)
--- NOTE | 2022-04-25 16:26 | P.DS ---
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9 - Hypothyroidism, unspecified Brief History of Present Illness: Patient is a 61-year-old male with NIDDM, hypertension, hypothyroidism, HLD, CAD who presented to the ED via EMS with complaints of chest pain. 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 He described the pain as a pressure. He took 1 nitro at home and was given a second by EMS which relieved his symptoms. He was also given 324 mg aspirin and fentanyl from EMS. After settling down in the ED, his primary complaint is neck pain. Patient has known bone spurs in his neck and is awaiting treatment. EKG without abnormalities. Vital signs stable. Labs within normal limits. Chest x-ray negative. He was given pain and Zofran in the ED with his pain. ED provider wishes admit patient for observation. Hospital Course: Patient placed under observation on the medical floor. Troponin trended negative. Patient was chest pain-free during the hospital stay. He was seen and evaluated by cardiology. ACS ruled out. Patient deemed stable for discharge. Vital Signs/Physical Exam: Temp Pulse Resp BP Pulse Ox 98.6 F 54 18 152/92 H 100 04/25/22 16:00 04/25/22 16:00 04/25/22 16:00 04/25/22 16:00 04/25/22 16:00 General: Alert, In no apparent distress, Oriented x3 HEENT: Mucous membr. moist/pink Neck: JVD not distended Respiratory: Clear to auscultation bilaterally, Normal air movement Cardiovascular: No edema, Regular rate/rhythm, Normal S1 S2, No murmurs Gastrointestinal: Normal bowel sounds, Soft and benign, Non-distended, No tenderness Musculoskeletal: No swelling, No tenderness Integumentary: No rashes, No erythema Neurological: Normal strength at 5/5 x4 extr Laboratory Data at Discharge: WBC 6.4 K/uL (4.3-10.9) 04/24/22 23:26 Hgb 13.3 g/dL (13.6-17.9) L 04/24/22 23:26 Hct 39.3 % (39.6-49.0) L 04/24/22 23:26 Plt Count 201 K/uL (152-406) 04/24/22 23:26 Sodium 136 mmol/L (136-145) 04/24/22 23:26 Potassium 4.1 mmol/L (3.5-5.1) 04/24/22 23:26 BUN 12 mg/dL (7-18) 04/24/22 23:26 Creatinine 1.22 mg/dL (0.55-1.3) 04/24/22 23:26 Glucose 128 mg/dL (74-106) H 04/24/22 23:26 Triglycerides 226 mg/dL (<150) H 04/25/22 04:22 Cholesterol 99 mg/dL (<200) 04/25/22 04:22 HDL Cholesterol 36 mg/dL (40-60) L 04/25/22 04:22 Cholesterol/HDL Ratio 2.75 04/25/22 04:22 Home Medications: Aspirin [Aspirin EC] 81 mg PO DAILY 12/21/20 Cholecalciferol (Vitamin D3) [Vitamin D3] 2,000 unit PO DAILY 12/21/20 Clopidogrel Bisulfate [Plavix*] 75 mg PO DAILY 12/21/20 Finasteride 5 mg PO DAILY 12/21/20 Levothyroxine Sodium [Levothyroxine] 75 mcg PO DAILY 12/21/20 Losartan Potassium 100 mg PO DAILY 12/21/20 Lovastatin 20 mg PO DAILY 12/21/20 Metformin HCl [Metformin ER Gastric] 500 mg PO TID 12/21/20 Tamsulosin [Flomax*] 0.4 mg PO DAILY 12/21/20 Folic Acid 1 mg PO DAILY #90 tablet 05/01/21 Diet: AHA Activity: Ad junior Followup: Vinny Magallanes MD [ACTIVE - CAN ADMIT] - 1-2 Weeks Unknown,U [Primary Care Provider] -
[2022-04-25 19:09] VITALS: BP 148/95; O2SAT 99
[2022-04-25] MEDS ORDERED: ATORVASTATIN 40 MG TAB PO SCH (21:00)
--- NOTE | 2022-04-25 21:01 | CON ---
Date of Consultation: 04/25/2022 Reason For Consultation: Chest pain. History Of Present Illness: 61-year-old male with history of diabetes, hypertension, hypothyroidism, dyslipidemia, coronary artery disease, presented to the emergency room with chest pain and shortness of breath. The pain is in retrosternal area, does not radiate, not related to exertion. At the sharan e of my interview, patient was completely chest pain free. He denies having any history of cardiac d isease. Past Medical History: As outlined above in the HPI. Medications: Refer to reconciliation sheet for detailed list. Allergies: NO KNOWN DRUG ALLERGIES. Family History: No premature coronary artery disease or cancer. Social History: Does not smoke or drink. Does not use any drugs. Review of Systems: All systems reviewed and are negative. Physical Examination: Vital Signs: Reviewed. Head and Neck: Pupils are equal, reactive to light. Intact eye movements. No JVD. No cervical ana rosa nopathy. Neck supple. Thyroid is not enlarged. Lungs: Clear to auscultation bilaterally. No rhonchi, wheezing, crackles. No accessory muscle use. Heart: Regular rate and rhythm. No extra sounds. Abdomen: Soft, nontender. Bowel sounds positive. No organomegaly. No masses or hernia. No rigidi ty or rebound. Extremities: No edema, clubbing, cyanosis. Intact pulses. Skin: No rash. Neurologic: Alert, awake, oriented x3. No acute focal deficits appreciated. Lymph Nodes: No cervical or axillary lymphadenopathy. Investigations: Two cardiac enzymes are negative. Creatinine is 1.22. Hemoglobin is 13.4, white bl ood cell count 6.4. Assessment And Recommendation: Chest pain. Cardiac enzymes are negative. Pain is atypical; however , definitely with risk factors, the patient will need further workup. From Cardiology standpoint, no inpatient workup is needed as his troponins are negative. We will plan for cardiac stress test as a n outpatient and an echocardiogram. Cardiology will sign off on the case. SR/MODL Voice ID: [id number] Report ID: [id number]
--- NOTE | 2022-04-26 16:57 | EKG ---
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
--- NOTE | 2022-04-27 10:36 | RAD REPORT ---
EXAM DESCRIPTION: RAD - Chest Single View - 04/25/2022 12:37 am CLINICAL HISTORY: CHEST PAIN COMPARISON: 09/20/2020 FINDINGS: Single frontal radiograph view of the chest. Cardiomediastinal silhouette: Normal size and contour. Lungs: No consolidation, pneumothorax, or pleural effusion. Bones: Degenerative endplate spondylosis. Leads overlie the chest. Upper abdomen: No abnormality identified. IMPRESSION: 1. No acute pulmonary process identified. Electronically signed by: Stan Jefferson 04/25/2022 12:51 AM CDT Due to temporary technical issues with the PACS/Fluency reporting system, reports are being signed by the in house radiologists without review as a courtesy to insure prompt reporting. The interpreting radiologist is fully responsible for the content of the report.
== END 2022-04-25 16:53 | disposition home or self-care (01) ==
LOC: ER 23:21 → ERHOLD 04-25 01:18
PROVIDERS: ADMIT Internal Medicine; ATTEND Internal Medicine
DX: R07.89 Other chest pain (principal); I25.10 Atherosclerotic heart disease of native coronary artery without angina pectoris; E11.65 Type 2 diabetes mellitus with hyperglycemia; I10 Essential (primary) hypertension; E78.5 Hyperlipidemia, unspecified; E03.9 Hypothyroidism, unspecified; M54.2 Cervicalgia; N40.0 Benign prostatic hyperplasia without lower urinary tract symptoms; Z20.822 Contact with and (suspected) exposure to COVID-19; Z79.02 Long term (current) use of antithrombotics/antiplatelets; Z79.84 Long term (current) use of oral hypoglycemic drugs; Z79.82 Long term (current) use of aspirin; Z79.899 Other long term (current) drug therapy; Z86.718 Personal history of other venous thrombosis and embolism; Z95.5 Presence of coronary angioplasty implant and graft; Z89.511 Acquired absence of right leg below knee; Z82.49 Family history of ischemic heart disease and other diseases of the circulatory system; Z80.9 Family history of malignant neoplasm, unspecified
CPT/HCPCS: 93005; 85025; 80048; 36415; 80061; 82947; 84443; 81003; 84484 ×2; 84439; 71045; 96375; 96374; 99284; U0003; J1650; J1170; J2405; G0378 ×2

== ENCOUNTER 2022-06-02 21:58 | Emergency (ER) | payer OTHER ==
--- OUTSIDE RECORDS SUMMARY | 2022-06-02 22:01 | XMS REPORT | Continuity of Care Document ---
:1960 Author Organization [facility] t Address [address] [place] [address] Care Team Providers Name Role Phone Regina Hodges Primary Care Physician Maira Oliveira Attending Clinician Unavailable Regina Hodges Attending Clinician Unavailable Edmundo Wilder MD Attending Clinician Everardo Bright Attending Clinician RADIOLOGY Attending Clinician Unavailable [place] NASH Attending Clinician Unavailable Caridad Attending Clinician Unavailable [place] NASH II Admitting Clinician Unavailable Caridad Admitting Clinician Unavailable Payers Payer Name Policy Type Policy Number Effective Date Expiration Date [facility] [id number] Problems Condition Condition Condition Status Onset Resolution Last Treating Co mments Source Name Details Category Date Date Treatment Clinician Date Other Other Disease Active 2020-09 Univers age-relate age-relate 2-07 [place] 00 Medical eye eye Branch Obesity Obesity Disease Active Univers (BMI (BMI 3-06 ity of 30-39.9) 30-39.9) 00:00: [place] 00 Medical Branch Left knee Left knee Disease Active Uni vers pain pain 1-10 ity of 00:00: [place] [facility] Shoulder Shoulder Disease Active Unive rs pain, pain, 5-10 ity of bilateral [facility] Foot pain, Foot pain, Disease Active U nivers left left 3-09 ity of 00:00: [place] Medical [place] Raised Raised Problem Active [place] prostate Prostate da specific Specific Medica l antigen Antigen Group Allergies, Adverse Reactions, Alerts Allergy Allergy Status Severity Reaction(s) Onset Inactive Treating Comm ents Source Name Type Date Date Clinician NO KNOWN Drug Active Univers ALLERGIE Class ity of [facility] Social History Social Habit Start Date Stop Date Quantity Comments Source Exposure to 2022-05-09 2022-05-19 Not sure [facility] SARS-CoV-2 00:00:00 07:57:00 [facility] (event) [place] Tobacco use and 2022-05-19 2022-05-19 Smokeless tobacco Un iversity of exposure 00:00:00 00:00:00 non-user [facility] Alcohol intake 2022-05-19 2022-05-19 0 /d University of 00:00:00 00:00:00 [facility] Sex Ass[birth year] At [birth year] Universit y of 00:00:00 00:00:00 [facility] Smoking Status Start Date Stop Date Source Never smoked tobacco [facility] Medications Ordered Filled Start Stop Current Ordering Indication Dosage Frequency Signature Comments Components Source Medication Medication Date Date Medication? Clinician (SIG) Name Name meloxicam 2021- Yes [id number] 15mg Take 1 Univers 15 mg 05-19 [id number] tablet by ity of tablet 00:00: 04:59 mouth in [place] 00 :00 [facility] Medical morning [place] for 30 days. meloxicam 2021- Yes [id number] 15mg Take 1 Univers 15 mg 05-19 [id number] tablet by ity of tablet 00:00: 04:59 mouth in [place] 00 :00 [facility] for 30 days. meloxicam 2021- Yes [id number] 15mg Take 1 Univers 15 mg 05-19 [id number] tablet by ity of tablet 00:00: 04:59 mouth in [place] 00 :00 the Medical morning Branch for 30 days. methylPREDN 2021-0 Yes [id number] 84mg Take 21 Univers ISolone 5-23 9103 tablets by ity of (MEDROL, 00:00: mouth [place] MICHELE,) 4 mg 00 SEE-INSTRU Med ical tablets CTIONS. Branch follow package directions methylPREDN 2-0 Yes [id number] 84mg Take 21 Univers ISolone 5-23 9103 tablets by ity of (MEDROL, 00:00: mouth [place] MICHELE,) 4 mg 00 SEE-INSTRU Med ical tablets CTIONS. Branch follow package directions methylPREDN 2021-0 Yes [id number] 84mg Take 21 Univers ISolone 5-23 9103 tablets by ity of (MEDROL, 00:00: mouth [place] MICHELE,) 4 mg 00 SEE-INSTRU Med ical tablets CTIONS. Branch follow package directions Tamsulosin Tamsulosin Yes Regina 1 capsule Common HCl HCl [facility] acetaminoph acetaminoph No acetaminop [place] [...] Name Observation Time Observation Value Comments Source Body height 2022-05-19 13:09:00 175.3 cm [facility] Body weight 2022-05-19 13:09:00 95.255 kg [facility] BMI 2022-05-19 13:09:00 31.01 kg/m2 [facility] Procedures Procedure Date / Time Performed Performing Clinician [facility] [place], urogram 2018-07-07 00:00:00 Pietro Ok [facility] Plan of Care Planned Activity Planned Date Details Comments Source Diagnostic Test 2018-07-07 cytology, urine [facility] Pending 00:00:00 [code = cytology, Group urine] Encounters Start End Encounter Admission Attending Care Care Encounter Source Date/Time Date/Time Type Type Clinicians Facility Department ID 2021-10-22 Outpatient Oliveira, STLMLC STLMLC [id number] Common 14:27:24 Maira 45881 [facility] 2021-10-22 Outpatient Oliveira, STLMLC STLMLC [id number] Common 14:18:00 Maira 17169 [facility] 2021-10-22 Outpatient [place], STLMLC STLMLC [id number] Common 13:35:45 Regina 47405 [facility] 2021-10-22 Outpatient [place], STLMLC STLMLC [id number] Common 12:41:58 Regina 38220 [facility] 2021-10-22 Outpatient [place], STLMLC STLMLC [id number] Common 12:40:52 Regina 92022 [facility] 2021-10-22 Outpatient [place], STLMLC STLMLC [id number] Common 12:12:33 Regina 40779 [facility] 2021-10-22 Outpatient [place], STLMLC STLMLC [id number] Common 11:56:49 Regina 86685 [facility] 2021-10-22 Outpatient [place], STLMLC STLMLC [id number] Common 11:56:09 Regina 42156 [facility] 2021-10-22 Outpatient [place], STLMLC STLMLC [id number] Common 11:21:52 Regina 84024 [facility] 2021-10-22 Outpatient [place], STLMLC STLMLC [id number] Common 11:07:15 Regina 12118 [facility] 2021-10-22 Outpatient [place], STLMLC STLMLC [id number] Common 11:06:53 Regina 64225 [facility] 2021-10-22 Outpatient [place], STLMLC STLMLC [id number] Common 10:59:53 Regina 25672 [facility] 2022-05-21 2022-05-21 Telephone Meño [facility] [id number] Univers 00:00:00 00:00:00 [facility] [id number] it [facility] [id number] Ty as CHELLE?BLEA [id number] [address] MEDICAL OFFICE BUILDING 2022-05-19 2022-05-19 Office Josef [facility] [id number] Univers 08:45:00 09:00:00 Visit [facility] [id number] it y of [place] [id number] Ty as CHELLE?BLEA [id number] [place] [address] MEDICAL OFFICE BUILDING 2022-05-16 2022-05-16 Outpatient R RADIOLOGY [facility] [id number] Univers 07:47:58 23:59:00 ity of [facility] 2022-03-05 2022-03-05 ambulatory STLMLC STLMLC [id number] Common 00:00:00 00:00:00 [facility] 2022-02-04 2022-02-04 ambulatory STLMLC STLMLC [id number] Common 00:00:00 00:00:00 [facility] 2022-01-19 2022-01-19 ambulatory STLMLC STLMLC [id number] Common 00:00:00 00:00:00 [facility] 2022-01-05 2022-01-05 ambulatory STLMLC STLMLC [id number] Common 00:00:00 00:00:00 [facility] 2021-12-22 2021-12-22 ambulatory STLMLC STLMLC [id number] Common 00:00:00 00:00:00 [facility] 2021-11-20 2021-11-20 ambulatory STLMLC STLMLC [id number] Common 00:00:00 00:00:00 [facility] 2021-10-21 2021-10-21 ambulatory STLMLC STLMLC [id number] Common 00:00:00 00:00:00 [facility] 2021-10-02 2021-10-02 ambulatory STLMLC STLMLC [id number] Common 00:00:00 00:00:00 [facility] 2021-09-26 2021-09-26 [place] [id number] [place] 08:19:00 13:21:00 [place] 2021-09-12 2021-09-12 ambulatory STLMLC STLMLC [id number] Common 00:00:00 00:00:00 [facility] 2021-09-08 2021-09-08 ambulatory STLMLC STLMLC [id number] Common 00:00:00 00:00:00 [facility] 2021-09-01 2021-09-01 ambulatory STLMLC STLMLC [id number] Common 00:00:00 00:00:00 [facility] 2021-08-26 2021-08-26 ambulatory STLMLC STLMLC [id number] Common 00:00:00 00:00:00 [facility] 2021-08-19 2021-08-19 ambulatory STLMLC STLMLC [id number] Common 00:00:00 00:00:00 [facility] 2021-07-29 2021-07-29 ambulatory STLMLC STLMLC [id number] Common 00:00:00 00:00:00 [facility] 2021-07-25 2021-07-25 Outpatient STLMLC STLMLC [id number] Common 00:00:00 00:00:00 [facility] 2021-07-21 2021-07-21 Outpatient STLMLC STLMLC [id number] Common 00:00:00 00:00:00 [facility] 2021-07-11 2021-07-11 Outpatient STLMLC STLMLC [id number] Common 00:00:00 00:00:00 [facility] 2021-07-11 2021-07-11 Outpatient STLMLC STLMLC [id number] Common 00:00:00 00:00:00 [facility] 2021-06-29 2021-06-29 Outpatient STLMLC STLMLC [id number] Common 00:00:00 00:00:00 [facility] 2021-06-24 2021-06-24 Outpatient STLMLC STLMLC [id number] Common 00:00:00 00:00:00 [facility] 2021-06-06 2021-06-06 Outpatient STLMLC STLMLC [id number] Common 00:00:00 00:00:00 [facility] 2021-05-05 2021-05-05 Outpatient STLMLC STLMLC [id number] Common 00:00:00 00:00:00 [facility] 2021-04-30 2021-04-30 Outpatient STLMLC STLMLC [id number] Common 00:00:00 00:00:00 [facility] 2021-04-30 2021-04-30 Outpatient STLMLC STLMLC [id number] Common 00:00:00 00:00:00 [facility] 2021-04-25 2021-04-25 Outpatient STLMLC STLMLC [id number] Common 00:00:00 00:00:00 [facility] 2021-04-03 2021-04-03 Outpatient STLMLC STLMLC [id number] Common 00:00:00 00:00:00 [facility] 2021-01-24 2021-01-24 Outpatient STLMLC STLMLC [id number] Common 00:00:00 00:00:00 [facility] 2021-01-17 2021-01-17 Outpatient STLMLC STLMLC [id number] Common 00:00:00 00:00:00 [facility] 2021-01-13 2021-01-13 Outpatient STLMLC STLMLC [id number] Common 00:00:00 00:00:00 [facility] 2021-01-10 2021-01-10 Outpatient STLMLC STLMLC [id number] Common 00:00:00 00:00:00 [facility] 2020-12-31 2020-12-31 Outpatient STLMLC STLMLC [id number] Common 00:00:00 00:00:00 [facility] 2020-12-25 2020-12-25 [facility] [id number] 12:51:24 13:25:03 Visit [facility] [id number] Surgical [id number] Specialti [id number] [address] [place] 2020-12-23 2020-12-23 Outpatient STLMLC STLMLC [id number] Common 00:00:00 00:00:00 [facility] 2020-12-21 2020-12-21 Outpatient STLMLC STLMLC [id number] Common 00:00:00 00:00:00 [facility] 2020-12-19 2020-12-19 Outpatient STLMLC STLMLC [id number] Common 00:00:00 00:00:00 [facility] 2020-12-17 2020-12-17 Outpatient STLMLC STLMLC [id number] Common 00:00:00 00:00:00 [facility] 2020-12-17 2020-12-17 Outpatient STLMLC STLMLC [id number] Common 00:00:00 00:00:00 [facility] 2020 2020 Outpatient STLMLC STLMLC [id number] Common 00:00:00 00:00:00 [facility] 2020-12-09 2020-12-09 Outpatient STLMLC STLMLC [id number] Common 00:00:00 00:00:00 [facility] 2020-11-07 2020-11-07 Outpatient STLMLC STLMLC [id number] Common 00:00:00 00:00:00 [facility] 2020-11-04 2020-11-04 Outpatient STLMLC STLMLC [id number] Common 00:00:00 00:00:00 [facility] 2020-11-04 2020-11-04 Outpatient STLMLC STLMLC [id number] Common 00:00:00 00:00:00 [facility] 2020-10-15 2020-10-15 Outpatient SAAD, [id number] 07:11:00 12:00:00 [place] 2020-09-09 2020-09-09 Outpatient STLMLC STLMLC [id number] Common 00:00:00 00:00:00 [facility] 2020-08-14 2020-08-14 Outpatient Young_J MMG MMG [id number] [place] 02:37:00 02:37:00 [facility] 2020-07-16 2020-07-16 Outpatient STLMLC STLMLC [id number] Common 00:00:00 00:00:00 [facility] 2020-05-06 2020-05-06 [facility] [id number] Common 10:52:00 10:52:00 [facility] it [facility] 2020-04-10 2020-04-10 [facility] [id number] Common 13:19:00 13:19:00 [facility] it [facility] 2020-04-08 2020-04-08 Out[facility] [id number] Common 11:08:00 11:08:00 [facility] 2020-04-05 2020-04-05 [facility] [id number] Common 18:34:00 18:34:[address] [facility] 2020-01-09 2020-01-09 Out[facility] [id number] Common 14:23:00 14:23:[address] [facility] 2020-01-08 2020-01-08 Out[facility] [id number] Common 08:00:00 08:00:[address] [facility] 2019-11-22 2019-11-22 Out[facility] [id number] Common 19:45:00 19:45:[address] [facility] 2019-11-08 2019-11-08 Out[facility] [id number] Common 09:12:00 09:12:[address] [facility] 2019-11-07 2019-11-07 Out[facility] [id number] Common 08:17:00 08:17:[address] [facility] 2019-10-19 2019-10-19 Outpatient [facility] [id number] Common 15:57:00 15:57:[address] [facility] 2019-10-18 2019-10-18 Out[facility] [id number] Common 09:24:00 09:24:[address] [facility] 2019-10-17 2019-10-17 Out[facility] [id number] Common 09:00:00 09:00:[address] [facility] 2019-10-09 2019-10-09 Outpatient [facility] [id number] Common 10:27:00 10:27:[address] [facility] 2019-10-09 2019-10-09 Outpatient [facility] [id number] Common 09:00:00 09:00:[address] [facility] 2018-08-08 2018-08-08 Saravanan [facility] [place] - [id number] M atagor 00:00:00 00:00:00 DO Terrance: Discovery garcia [address] [place] - [address], [facility], [facility] [place] [address] , Ph. [phone] 2018-08-04 2018-08-04 Jose Garcia [facility] [place] - [id number] M atagor 00:00:00 00:00:00 MD Bobbi: [address], [place] - [address], [place] [address] , Ph. 2018-07-07 2018-07-07 Jose Garcia [facility] [place] - [id number] M atagor 00:00:00 00:00:00 MD Bobbi: Discovery batres [address] [place] [address] - [address], [place] [address] , Ph. Results This patient has no known results.
[2022-06-02] MEDS ORDERED: ONDANSETRON 4 MG/2 ML VIAL ONE (23:01)
[2022-06-02] MEDS ORDERED: NA CHLORIDE 0.9% 1,000 ML ONE (23:01)
[2022-06-02] MEDS ORDERED: NA CHLORIDE 0.9% 500 ML ONE (23:01)
[2022-06-02] MEDS ORDERED: MORPHINE 4 MG/ML SYR ONE (23:01)
[2022-06-03 00:17] LABS: Urine Blood Negative (Negative); Urine Glucose Negative (Negative); Urine Protein 1+ (Negative); Urine Specific Gravity >=1.030 (1.005-1.030); Urine pH 5.5 (5.0-7.0)
[2022-06-03 00:24] LABS: SARS-CoV-2 Antigen Rapid Res Negative (Negative)
[2022-06-03 00:34] LABS: Absolute Lymphocytes (CBC) 1.7 K/uL (0.7-4.9); Hematocrit 41.1 % (39.6-49.0); Lymphocytes % 21.5 % (15.3-44.8); MCV 83.7 fL (80-100); MPV 7.7 fL (7.6-11.3); Protime INR 1.05; RBC Red Blood Cell Count 4.91 M/uL (4.33-5.43)
[2022-06-03 02:07] LABS: Albumin 3.5 g/dL (3.4-5.0); Bilirubin Direct 0.1 mg/dL (0-0.2); Bilirubin Total 0.3 mg/dL (0.2-1.0); Magnesium 2.1 mg/dL (1.8-2.4); Potassium 4.2 mmol/L (3.5-5.1); Protein, Total 7.7 g/dL (6.4-8.2); Troponin High Sensitivity 5.5 pg/mL (<58.9)
--- NOTE | 2022-06-03 02:49 | EDPHYS ---
Physician Documentation [facility] Name: Moshe Ewing Age: 61 yrs Sex: Male : 1960 Arrival Date: 06/02/2022 Time: 22:01 Bed 4 Private MD: ED Physician Chris Plummer HPI: 06/02 23:24 This 61 yrs old Male presents to ER via EMS with complaints of sudden onset lamont left legpain. 23:24 The patient presents with decreased range of motion, pain, that is acute. The lamont complaints affect the lateral aspect of left thigh and left quadriceps. Context: The problem was sustained at home, resulted from an unknown cause. Onset: The symptoms/episode began/occurred just prior to arrival. Modifying factors: The symptoms are alleviated by remaining still, the symptoms are aggravated by movement. Associated signs and symptoms: The patient has no apparent associated signs or symptoms. Treatment prior to arrival includes: no previous treatment. Severity of symptoms: At their worst the symptoms were moderate, in the emergency department the symptoms are unchanged. The patient has not experienced similar symptoms in the past. Historical: - Allergies: 22:15 amlodipine; kd3 - Home Meds: 22:15 clopidogrel 75 mg Oral tab 1 tab once daily [Active]; finasteride 5 mg Oral tab 1 tab kd3 once daily [Active]; levothyroxine 75 mcg tab 1 tab once daily [Active]; lovastatin 40 mg Oral tab 1 tab once daily [Active]; losartan 100 mg Oral tab 1 tab once daily [Active]; metformin 500 mg Oral cpER 1 tab 1 tab with breakfast, 1 tab with lunch, 2 tabs with evening meal [Active]; tamsulosin 0.4 mg Oral cp24 1 cap once daily [Active]; - PMHx: 22:15 Diabetes - NIDDM; Hypercholesterolemia; DVT; Hypothyroidism; Hypertension; kd3 - PSHx: 22:15 back sx; Cholecystectomy; foot/shoulder SX; L hand SX with plates placed; stimulator R kd3 back for legs; cadriac stent; R BKA; - Immunization history:: Adult Immunizations up to date. - Social history:: Smoking status: unknown. - Family history:: not pertinent. ROS: 23:24 Constitutional: Negative for fever, chills, and weight loss, Eyes: Negative for injury, lamont pain, redness, and discharge, ENT: Negative for injury, pain, and discharge, Neck: Negative for injury, pain, and swelling, Cardiovascular: Negative for chest pain, palpitations, and edema, Respiratory: Negative for shortness of breath, cough, wheezing, and pleuritic chest pain, Abdomen/GI: Negative for abdominal pain, nausea, vomiting, diarrhea, and constipation, Back: Negative for injury and pain, : Negative for injury, bleeding, discharge, and swelling, Skin: Negative for injury, rash, and discoloration, Neuro: Negative for headache, weakness, numbness, tingling, and seizure, Psych: Negative for depression, anxiety, suicide ideation, homicidal ideation, and hallucinations, Allergy/Immunology: Negative for hives, rash, and allergies, Endocrine: Negative for neck swelling, polydipsia, polyuria, polyphagia, and marked weight changes, Hematologic/Lymphatic: Negative for swollen nodes, abnormal bleeding, and unusual bruising. 23:24 MS/extremity: Positive for decreased range of motion, pain, tenderness, of the lateral aspect of left thigh, left inner thigh, medial aspect of left thigh, left upper thigh and left quadriceps. Exam: 23:24 Constitutional: This is a well developed, well nourished patient who is awake, alert, lamont and in no acute distress. Head/Face: Normocephalic, atraumatic. Eyes: Pupils equal round and reactive to light, extra-ocular motions intact. Lids and lashes normal. Conjunctiva and sclera are non-icteric and not injected. Cornea within normal limits. Periorbital areas with no swelling, redness, or edema. ENT: Nares patent. No nasal discharge, no septal abnormalities noted. Tympanic membranes are normal and external auditory canals are clear. Oropharynx with no redness, swelling, or masses, exudates, or evidence of obstruction, uvula midline. Mucous membranes moist. Neck: Trachea midline, no thyromegaly or masses palpated, and no cervical lymphadenopathy. Supple, full range of motion without nuchal rigidity, or vertebral point tenderness. No Meningismus. Chest/axilla: Normal chest wall appearance and motion. Nontender with no deformity. No lesions are appreciated. Cardiovascular: Regular rate and rhythm with a normal S1 and S2. No gallops, murmurs, or rubs. Normal PMI, no JVD. No pulse deficits. Respiratory: Lungs have equal breath sounds bilaterally, clear to auscultation and percussion. No rales, rhonchi or wheezes noted. No increased work of breathing, no retractions or nasal flaring. Abdomen/GI: Soft, non-tender, with normal bowel sounds. No distension or tympany. No guarding or rebound. No evidence of tenderness throughout. Back: No spinal tenderness. No costovertebral tenderness. Full range of motion. Male : Normal genitalia with no discharge or lesions. Skin: Warm, dry with normal turgor. Normal color with no rashes, no lesions, and no evidence of cellulitis. Neuro: Awake and alert, GCS 15, oriented to person, place, time, and situation. Cranial nerves II-XII grossly intact. Motor strength 5/5 in all extremities. Sensory grossly intact. Cerebellar exam normal. Normal gait. Psych: Awake, alert, with orientation to person, place and time. Behavior, mood, and affect are within normal limits. 23:24 Musculoskeletal/extremity: ROM: limited active range of motion, limited passive range of motion, limited active range of motion due to pain, limited passive range of motion due to pain, Circulation is intact in all extremities. Sensation intact. Compartment Syndrome exam of affected extremity: is normal. Weight bearing: is unable to bear weight, DVT Exam: no swelling, no tenderness, negative Homans' sign noted on exam, no appreciated bluish discoloration, no erythema, no increased warmth, pain. 23:29 ECG was reviewed by the Attending Physician. [facility] Vital Signs: 22:01 BP 158 / 97; Pulse 88; Resp 18; Temp 98.0(O); Pulse Ox 98% on R/A; Weight 95.25 kg; oe Height 5 ft. 9 in. (175.26 cm); Pain 10/10; 22:20 BP 161 / 96; Pulse 92; Resp 19; Pulse Ox 99% on R/A; kd3 23:21 BP 145 / 96; Pulse 96; Resp 20; Pulse Ox 100% on R/A; kd3 0907 01:24 BP 138 / 87; Pulse 97; Pulse Ox 97% on R/A; aa9 02:57 BP 132 / 84; Pulse 75; Resp 16; Pulse Ox 99% ; Pain 10/10; kd3 03:12 BP 131 / 98; Pulse 80; Resp 16 S; Pulse Ox 99% on R/A; aa9 06/02 22:01 Body Mass Index 31.01 (95.25 kg, 175.26 cm) oe NIH Stroke Scale Scores: 06/02 23:24 NIHSS Score: 0 lamont MDM: 22:05 Patient medically screened. [facility] 23:28 Differential diagnosis: contusion, tendonitis. Data reviewed: vital signs, nurses lamont notes, lab test result(s), EKG, radiologic studies, doppler, plain films. Data interpreted: script reader: rate is 96 beats/min, rhythm is regular, Pulse oximetry: on room air is 100 %. Test interpretation: by ED physician or midlevel provider: ECG, plain radiologic studies. Counseling: I had a detailed discussion with the patient and/or guardian regarding: the historical points, exam findings, and any diagnostic results supporting the discharge/admit diagnosis, lab results, radiology results, the need for outpatient follow up. Medical screen evaluation completed. EMTALA emergency medical condition absent. 06/02 22:42 Order name: Basic Metabolic Panel; Complete Time: 02:47 [facility] 06/02 22:42 Order name: CBC with Diff; Complete Time: 01:06 [facility] 06/02 22:42 Order name: LFT's; Complete Time: 02:47 [facility] 06/02 22:42 Order name: Magnesium; Complete Time: 02:47 [facility] 06/02 22:42 Order name: NT PRO-BNP; Complete Time: 02:47 [facility] 06/02 22:42 Order name: PT-INR; Complete Time: 01:06 [facility] 06/02 22:42 Order name: Troponin HS; Complete Time: 02:47 [facility] 06/02 22:42 Order name: US Extremity Venous Unilateral Ltd [facility] 06/02 22:42 Order name: US LE Artery Uni Ltd [facility] 06/02 22:43 Order name: CK; Complete Time: 02:47 [facility] 06/02 23:00 Order name: Chest Single View [facility] 06/02 23:10 Order name: SARS RAPID; Complete Time: 01:06 [facility] 06/03 00:17 Order name: Urine Dipstick-Ancillary; Complete Time: 01:06 [facility] 06/02 22:42 Order name: EKG; Complete Time: 22:49 [facility] 06/02 22:42 Order name: Cardiac monitoring; Complete Time: 23:10 [facility] 06/02 22:42 Order name: EKG - Nurse/Tech; Complete Time: 22:46 [facility] 06/02 22:42 Order name: IV Saline Lock; Complete Time: 23:10 [facility] 06/02 22:42 Order name: Labs collected and sent; Complete Time: 23:10 [facility] 06/02 22:42 Order name: O2 Per Protocol; Complete Time: 23:10 [facility] 06/02 22:42 Order name: O2 Sat Monitoring; Complete Time: 23:10 [facility] 06/02 22:42 Order name: Urine Dipstick-Ancillary (obtain specimen); Complete Time: 00:15 [facility] 06/02 23:55 Order name: Femur Left XRAY [facility] 06/02 23:55 Order name: Lumbar Spine (3 Views) XRAY [facility] EC:29 Rate is 88 beats/min. Rhythm is regular. QRS [place] is Normal. ID interval is normal. QRS lamont interval is normal. QT interval is normal. No Q waves. T waves are Normal. No ST changes noted. Clinical impression: NSR w/ Non-specific ST/T Changes and No evidence of ischemia. Interpreted by me. Reviewed by me. Administered Medications: 23:10 Drug: NS 0.9% 500 ml Route: IV; Rate: bolus; Site: right antecubital; 06/03 03:07 Follow up: Rate change 500 ml; IV Status: Completed infusion [facility] 06/02 23:10 Drug: NS 0.9% 1000 ml Route: IV; Rate: 125 ml/hr; Site: right antecubital; 3 06/03 03:07 Follow up: Rate change 300 ml; IV Status: Completed infusion [facility] 06/02 23:11 Drug: morphine 4 mg Route: IVP; Infused Over: 4 mins; Site: right antecubital; 3 06/03 03:07 Follow up: Response: No adverse reaction; Pain is decreased 3 06/02 23:11 Drug: Zofran (Ondansetron) 4 mg Route: IVP; Site: right antecubital; 3 06/03 03:08 Follow up: Response: No adverse reaction; Nausea is decreased kd3 03:06 Drug: Zofran (Ondansetron) 4 mg Route: IVP; Site: right hand; kd3 03:19 Follow up: Response: No adverse reaction kd3 03:07 Drug: morphine 4 mg Route: IVP; Infused Over: 4 mins; Site: right hand; kd3 03:19 Follow up: Response: No adverse reaction; Pain is decreased kd3 Disposition Summary: 06/03/22 02:47 Discharge Ordered Location: Home lamont Problem: new lamont Symptoms: have improved lamont Condition: Stable lamont Diagnosis - Pain in left leg - thigh,atraumatic lamont Followup: lamont - With: Private Physician - When: 2 - 3 days - Reason: Recheck today's complaints, Continuance of care, Re-evaluation by your physician Discharge Instructions: - Discharge Summary Sheet lamont - Musculoskeletal Pain lamont - Pain Without a Known Cause lamont Forms: - Medication Reconciliation Form lamont - Thank You Letter lamont - Antibiotic Education lamont - Prescription Opioid Use [facility] Prescriptions: - Diclofenac Sodium 75 mg Oral tablet,delayed release (DR/EC) - take 1 tablet by ORAL route 2 times per day; 20 tablet; Refills: 0, Product [facility] Selection Permitted - Tylenol-Codeine #3 300 mg-30 mg Oral - take 2 tablet by ORAL route every 6 hours; 24 tablet; Refills: 0, Product lamont Selection Permitted NIH Stroke Scale - NIH Stroke Score Date: 06/02/2022 Time: 23:24 Total Score = 0 1a. Level of Consciousness (LOC) - 0(Alert) 1b. Level of Consciousness (LOC) (Month \T\ Age) - 0(Both) 1c. LOC Commands (Open \T\ Closes Eyes/Secretary Administrative Assistant) - 0(Both) 2. Best Gaze (Lateral Gaze Paresis) - 0(Normal) 3. Visual Field Loss - 0(No visual loss) 4. Facial Palsy - 0(Normal) 5a. Left Arm: Motor (10-second hold) - 0(No drift) 5b. Right Arm: Motor (10-second hold) - 0(No drift) 6a. Left Leg: Motor (5-second hold - always test supine) - 0(No drift) 6b. Right Leg: Motor (5-second hold - always test supine) - 0(No drift) 7. Limb Ataxia (finger/nose \T\ heel/catalan - test with eyes open) - 0(Absent) 8. Sensory Loss (pinprick arms/legs/face) - 0(Normal) 9. Best Language: Aphasia (description/naming/reading) - 0(No aphasia) 10. Dysarthria (speech clarity - read or repeat words) - 0(Normal) 11. Extinction and Inattention (visual/tactile/auditory/spatial/personal) - 0(No abnormality) Initials: lamont Signatures: Dispatcher [employer] EDChris Dominguez MD MD cha Doucette, Kyli, RN RN kd3 Corrections: (The following items were deleted from the chart) 06/02 22:59 22:49 Chest Single View+RAD.RAD.BRZ ordered. EDSC EDSC
--- NOTE | 2022-06-03 02:49 | ER ---
Nurse's Notes [facility] Name: Moshe Ewing Age: 61 yrs Sex: Male : 1960 Arrival Date: 06/02/2022 Time: 22:01 Bed 4 Private MD: Diagnosis: Pain in left leg-thigh,atraumatic Presentation: 06/02 22:12 Chief complaint: EMS states: PT was at home in his recliner, watching TV and all of a kd3 sudden he had a pain rating 10/10 in the left upper leg. pt did not injure it. pt still rates it 10/10, pulse is felt, good CMS. Coronavirus screen: Vaccine status: Patient reports being unvaccinated. Ebola Screen: No symptoms or risks identified at this time. Initial Sepsis Screen: Does the patient meet any 2 criteria? No. Patient's initial sepsis screen is negative. Does the patient have a suspected source of infection? No. Patient's initial sepsis screen is negative. Risk Assessment: Do you want to hurt yourself or someone else? Patient reports no desire to harm self or others. Onset of symptoms was June 02, 2022. 22:12 Method Of Arrival: EMS: [facility] kd3 22:12 Acuity: MYRIAM 3 kd3 Triage Assessment: 22:15 General: Appears uncomfortable, Behavior is anxious. Pain: Complains of pain in left kd3 inner thigh. Neuro: Level of Consciousness is awake, alert, obeys commands, Oriented to person, place, time, situation. Historical: - Allergies: 22:15 amlodipine; kd3 - Home Meds: 22:15 clopidogrel 75 mg Oral tab 1 tab once daily [Active]; finasteride 5 mg Oral tab 1 tab kd3 once daily [Active]; levothyroxine 75 mcg tab 1 tab once daily [Active]; lovastatin 40 mg Oral tab 1 tab once daily [Active]; losartan 100 mg Oral tab 1 tab once daily [Active]; metformin 500 mg Oral cpER 1 tab 1 tab with breakfast, 1 tab with lunch, 2 tabs with evening meal [Active]; tamsulosin 0.4 mg Oral cp24 1 cap once daily [Active]; - PMHx: 22:15 Diabetes - NIDDM; Hypercholesterolemia; DVT; Hypothyroidism; Hypertension; kd3 - PSHx: 22:15 back sx; Cholecystectomy; foot/shoulder SX; L hand SX with plates placed; stimulator R kd3 back for legs; cadriac stent; R BKA; - Immunization history:: Adult Immunizations up to date. - Social history:: Smoking status: unknown. - Family history:: not pertinent. Screenin:17 Abuse screen: Denies threats or abuse. Denies injuries from another. Nutritional kd3 screening: No deficits noted. Tuberculosis screening: No symptoms or risk factors identified. Fall Risk None identified. 22:17 Fall Risk Ambulatory Aid-. kd3 Assessment: 23:21 General: Appears uncomfortable, Behavior is cooperative. Neuro: Level of Consciousness kd3 is awake, alert, obeys commands, Oriented to person, place, time, situation. 23:23 Cardiovascular: Pulses are palpable in left dorsalis pedis artery. kd3 06/03 01:24 Reassessment: Patient and/or family updated on plan of care and expected duration. Pain aa9 level reassessed. Patient is alert, oriented x 3, equal unlabored respirations, skin warm/dry/pink. 03:06 General: Appears uncomfortable, Behavior is calm, cooperative. kd3 Vital Signs: 06/02 22:01 BP 158 / 97; Pulse 88; Resp 18; Temp 98.0(O); Pulse Ox 98% on R/A; Weight 95.25 kg; oe Height 5 ft. 9 in. (175.26 cm); Pain 10/10; 22:20 BP 161 / 96; Pulse 92; Resp 19; Pulse Ox 99% on R/A; kd3 23:21 BP 145 / 96; Pulse 96; Resp 20; Pulse Ox 100% on R/A; kd3 07 01:24 BP 138 / 87; Pulse 97; Pulse Ox 97% on R/A; aa9 02:57 BP 132 / 84; Pulse 75; Resp 16; Pulse Ox 99% ; Pain 10/10; kd3 03:12 BP 131 / 98; Pulse 80; Resp 16 S; Pulse Ox 99% on R/A; aa9 06/02 22:01 Body Mass Index 31.01 (95.25 kg, 175.26 cm) oe NIH Stroke Scale Scores: 06/02 23:24 NIHSS Score: 0 lamont ED Course: 22:01 Patient arrived in ED. wm 22:05 Chris Plummer MD is Attending Physician. lamont 22:12 Kenzie Bee, FANNY is Primary Nurse. kd3 22:15 Triage completed. kd3 22:15 Arm band placed on right wrist. kd3 22:17 Patient has correct armband on for positive identification. kd3 23:09 Troponin HS Sent. kd3 23:09 PT-INR Sent. kd3 23:09 NT PRO-BNP Sent. kd3 23:09 Magnesium Sent. kd3 23:09 LFT's Sent. kd3 23:10 CBC with Diff Sent. kd3 23:10 Basic Metabolic Panel Sent. kd3 23:11 CK Sent. kd3 23:20 SARS RAPID Sent. kd3 23:36 Chest Single View In Process Unspecified. EDMS 23:54 US Extremity Venous Unilateral Ltd In Process Unspecified. EDMS 23:54 US LE Artery Uni Ltd In Process Unspecified. EDMS 06/03 00:47 Warm blanket given. PO fluids given. aa9 03:06 No provider procedures requiring assistance completed. kd3 03:19 IV discontinued, intact, bleeding controlled, No redness/swelling at site. Pressure kd3 dressing applied. 03:55 Femur Left XRAY In Process Unspecified. EDMS 03:55 Lumbar Spine (3 Views) XRAY In Process Unspecified. EDMS Administered Medications: 06/02 23:10 Drug: NS 0.9% 500 ml Route: IV; Rate: bolus; Site: right antecubital; kd3 06/03 03:07 Follow up: Rate change 500 ml; IV Status: Completed infusion kd3 06/02 23:10 Drug: NS 0.9% 1000 ml Route: IV; Rate: 125 ml/hr; Site: right antecubital; kd3 06/03 03:07 Follow up: Rate change 300 ml; IV Status: Completed infusion kd3 06/02 23:11 Drug: morphine 4 mg Route: IVP; Infused Over: 4 mins; Site: right antecubital; kd3 06/03 03:07 Follow up: Response: No adverse reaction; Pain is decreased kd3 06/02 23:11 Drug: Zofran (Ondansetron) 4 mg Route: IVP; Site: right antecubital; kd3 06/03 03:08 Follow up: Response: No adverse reaction; Nausea is decreased kd3 03:06 Drug: Zofran (Ondansetron) 4 mg Route: IVP; Site: right hand; kd3 03:19 Follow up: Response: No adverse reaction kd3 03:07 Drug: morphine 4 mg Route: IVP; Infused Over: 4 mins; Site: right hand; kd3 03:19 Follow up: Response: No adverse reaction; Pain is decreased kd3 Medication: 06/02 22:18 VIS not applicable for this client. kd3 Outcome: 06/03 02:47 Discharge ordered by . lamont 03:06 Discharged to home via wheelchair. kd3 03:06 Condition: stable 03:06 Discharge instructions given to patient, Instructed on discharge instructions, follow up and referral plans. medication usage, Demonstrated understanding of instructions, follow-up care, medications, Prescriptions given X 2. 03:19 Patient left the ED. kd3 NIH Stroke Scale - NIH Stroke Score Date: 06/02/2022 Time: 23:24 Total Score = 0 1a. Level of Consciousness (LOC) - 0(Alert) 1b. Level of Consciousness (LOC) (Month \T\ Age) - 0(Both) 1c. LOC Commands (Open \T\ Closes Eyes/Nanny Babysitter) - 0(Both) 2. Best Gaze (Lateral Gaze Paresis) - 0(Normal) 3. Visual Field Loss - 0(No visual loss) 4. Facial Palsy - 0(Normal) 5a. Left Arm: Motor (10-second hold) - 0(No drift) 5b. Right Arm: Motor (10-second hold) - 0(No drift) 6a. Left Leg: Motor (5-second hold - always test supine) - 0(No drift) 6b. Right Leg: Motor (5-second hold - always test supine) - 0(No drift) 7. Limb Ataxia (finger/nose \T\ heel/catalan - test with eyes open) - 0(Absent) 8. Sensory Loss (pinprick arms/legs/face) - 0(Normal) 9. Best Language: Aphasia (description/naming/reading) - 0(No aphasia) 10. Dysarthria (speech clarity - read or repeat words) - 0(Normal) 11. Extinction and Inattention (visual/tactile/auditory/spatial/personal) - 0(No abnormality) Initials: lamont Signatures: Dispatcher [employer] EDChris Dominguez MD MD cha Espinosa, [place] oe Marsh, Wendy wm Doucette, Kyli, RN RN kd3 Sandy Macdonald RN RN aa9
[2022-06-03] MEDS ORDERED: ONDANSETRON 4 MG/2 ML VIAL ONE (03:12)
[2022-06-03] MEDS ORDERED: MORPHINE 4 MG/ML SYR ONE (03:12)
[2022-06-03 04:09] VITALS: TEMP 98
[2022-06-03 04:24] VITALS: O2SAT 99
[2022-06-03 04:26] VITALS: BP 131/98
--- NOTE | 2022-06-03 12:48 | EKG ---
Test Date: 2022-06-02 Test Time: 22:30:25 Pattern Shop Supervisor: AAKASH MEASUREMENT RESULTS: Intervals: Rate: 88 SC: 154 QRSD: 146 QT: 388 QTc: 469 [place]: P: 58 SC: 154 QRS: 99 T: 55 INTERPRETIVE STATEMENTS: Normal sinus rhythm Right bundle branch block Abnormal ECG Compared to ECG 04/24/2022 23:26:36 No significant changes Electronically Signed On 06-03-22 12:46:40 CDT by Jae Owens
--- NOTE | 2022-06-04 09:49 | RAD REPORT ---
EXAM DESCRIPTION: RAD - Femur Left - 06/03/2022 12:59 am CLINICAL HISTORY: The patient is 61 years old and is Male; PAIN TECHNIQUE: Two views of the left femur. COMPARISON: No relevant prior studies available. FINDINGS: Bones/joints: Unremarkable. No acute fracture. No dislocation. Soft tissues: Unremarkable. IMPRESSION: No acute fracture visualized. Electronically signed by: Erica White MD 06/03/2022 5:33 AM CDT Due to temporary technical issues with the PACS/Fluency reporting system, reports are being signed by the in house radiologists without review as a courtesy to insure prompt reporting. The interpreting radiologist is fully responsible for the content of the report.
--- NOTE | 2022-06-04 09:57 | RAD REPORT ---
EXAM DESCRIPTION: RAD - Lumbar Spine 3 Views - 06/03/2022 12:59 am CLINICAL HISTORY: 61 years Male, PAIN COMPARISON: CT lumbar spine 09/20/2020.. FINDING: Status post L4-L5 posterior fusion. Unchanged mild superior endplate deformity at Multilevel degenerative changes. Status post vertebral body augmentation at L1. Unchanged alignment. Spinal stimulator in place. IMPRESSION: No acute findings and no significant change from prior study given differences in techni que. Electronically signed by: Chris Smith MD 06/03/2022 5:36 AM CDT Due to temporary technical issues with the PACS/Fluency reporting system, reports are being signed by the in house radiologists without review as a courtesy to insure prompt reporting. The interpreting radiologist is fully responsible for the content of the report.
--- NOTE | 2022-06-04 10:08 | RAD REPORT ---
EXAM DESCRIPTION: US - Lower Extremity Artery Uni Ltd - 06/02/2022 11:48 pm CLINICAL HISTORY: 61 years Male PAIN COMPARISON: None TECHNIQUE: Real-time and Doppler sonography of the arterial system of the left lower extremity was p erformed. Grayscale, color, and spectral analysis was utilized. FINDINGS: Triphasic waveforms were seen involving the left common femoral, proximal, mid, and distal superficial femoral, popliteal, and posterior tibial arteries. Biphasic waveform is seen involving t he left dorsalis pedis artery. No velocity elevation. IMPRESSION: No sonographic evidence for significant peripheral vascular disease. Study within normal limits. Electronically signed by: Nayely Lei MD 06/03/2022 12:18 AM CDT Due to temporary technical issues with the PACS/Fluency reporting system, reports are being signed by the in house radiologists without review as a courtesy to insure prompt reporting. The interpreting radiologist is fully responsible for the content of the report.
--- NOTE | 2022-06-04 10:19 | RAD REPORT ---
EXAM DESCRIPTION: RAD - Chest Single View - 06/02/2022 11:35 pm CLINICAL HISTORY: Cough TECHNIQUE: Frontal view of the chest. COMPARISON: XR Chest dated 04/25/2022 FINDINGS: Lungs: Unremarkable. No consolidation. Pleural space: Unremarkable. No pneumothorax. Heart: Unremarkable. No cardiomegaly. Mediastinum: Unremarkable. Bones/joints: Multilevel spondylosis. No acute fracture. Vasculature: Thoracic aortic atherosclerosis. IMPRESSION: No acute disease. Electronically signed by: Noah Chou MD 06/03/2022 12:03 AM CDT Due to temporary technical issues with the PACS/Fluency reporting system, reports are being signed by the in house radiologists without review as a courtesy to insure prompt reporting. The interpreting radiologist is fully responsible for the content of the report.
--- NOTE | 2022-06-04 13:13 | RAD REPORT ---
EXAM DESCRIPTION: US - Extremity Venous Uni Ltd - 06/02/2022 11:48 pm CLINICAL HISTORY: S.[id number] COMPARISON: Foot Right W Comparison dated 06/03/2022; Os Calcis (Calcaneus) Heel dated 06/03/2022 FINDINGS: Right tibia/fibula, foot, calcaneus with comparative views of the left Moderate soft tissue swelling is present adjacent to the lateral malleolus. Fracture fragment is seen involving the lateral aspect of the distal tibial physis, compatible with fracture of Tillaux. No ad ditional fracture seen elsewhere. IMPRESSION: Fracture of Tillaux on the right.
== END 2022-06-03 03:19 | disposition home or self-care (01) ==
LOC: ER 21:58
DX: M79.652 Pain in left thigh (principal); I10 Essential (primary) hypertension; E11.9 Type 2 diabetes mellitus without complications; Z20.822 Contact with and (suspected) exposure to COVID-19; Z89.511 Acquired absence of right leg below knee; Z88.8 Allergy status to other drugs, medicaments and biological substances
CPT/HCPCS: 93005; 85025; 80048; 36415; 83735; 82550; 85610; 80076; 81003; 84484; 83880; 71045; 72100; 73552; 93926; 93971; 99284; 87811; J7040; J7030; J2405 ×2

== ENCOUNTER 2022-09-11 07:42 | Day surgery (SDC) | payer OTHER ==
[2022-09-10 13:38] LABS: Absolute Lymphocytes (CBC) 1.6 K/uL (0.7-4.9); Hematocrit 44.3 % (39.6-49.0); Lymphocytes % 21.9 % (15.3-44.8); MCV 85.6 fL (80-100); RBC Red Blood Cell Count 5.18 M/uL (4.33-5.43)
[2022-09-10 13:49] LABS: Potassium 4.1 mmol/L (3.5-5.1)
[2022-09-11] MEDS ORDERED: CEFAZOLIN SODIUM 2 GM/VIAL ONE ×2 (08:20→08:27)
[2022-09-11] MEDS ORDERED: NA CHLORIDE 0.9% 1,000 ML ONE (08:21)
[2022-09-11] MEDS ORDERED: Ringers Lactate 1,000 ML IV ONE (08:27)
[2022-09-11] MEDS ORDERED: BUPIVACAINE 0.25% PF 30 ML VIAL ONE (09:35)
[2022-09-11] MEDS ORDERED: ACETAMINOPHEN 500 MG TAB ONE (09:42)
[2022-09-11] MEDS ORDERED: CELECOXIB 100 MG CAPSULE ONE (09:42)
[2022-09-11] MEDS ORDERED: LIDOCAINE 2% MPF 5 ML VIAL ONE (10:15)
[2022-09-11] MEDS ORDERED: MIDAZOLAM HCL 2 MG/2 ML INJ ONE (10:15)
[2022-09-11] MEDS ORDERED: FENTANYL CITR 100 MCG/2 ML ONE (10:15)
[2022-09-11] MEDS ORDERED: propofoL 200 MG/20 ML VIAL IV ONE (10:15)
[2022-09-11] MEDS ORDERED: ROCURONIUM 50 MG/5 ML VIAL IV ONE (10:17)
[2022-09-11] MEDS ORDERED: NS 0.9% VIAL 10 ML ONE (10:31)
[2022-09-11] MEDS ORDERED: KETOROLAC 30 MG/ML INJ ONE (10:47)
[2022-09-11] MEDS ORDERED: ONDANSETRON 4 MG/2 ML VIAL ONE (10:55)
[2022-09-11] MEDS ORDERED: EPHEDRINE SULF 50 MG/ML VIAL ONE (11:03)
[2022-09-11] MEDS ORDERED: NEOSTIGMINE 1 MG/ML -5 ML ONE (12:09)
[2022-09-11] MEDS ORDERED: GLYCOPYRROLATE 0.2 MG/ML SYR ONE (12:09)
--- NOTE | 2022-09-11 12:18 | P.OP ---
Preoperative diagnosis: Bilateral Inguinal Hernias Postoperative diagnosis: Bilateral Inguinal Hernias Primary procedure: Open Bilateral Inguinal Hernia Repair with mesh Anesthesia: GETA + Local Estimated blood loss: <20cc Specimen: Cord Lipomas Bilaterally Findings: Bilateral indirect inguinal hernias Complications: None Implants: Bilateral Bard Perfix Plug and Patch Hernia Repair system Transferred to: Recovery Room () Condition: Good
[2022-09-11] MEDS ORDERED: SUCCINYLCHOLINE 20 MG/ML (10 ML) IV ONE (14:04)
[2022-09-11] MEDS ORDERED: HYDROCODONE/APAP 7.5/325 MG TAB ONE (14:37)
[2022-09-11 15:32] VITALS: BP 119/67; TEMP 97.6; O2SAT 97
--- NOTE | 2022-09-11 20:07 | OP ---
Date of Procedure: 09/11/2022 Surgeon: Haseeb Garsia MD, Preoperative Diagnosis: Bilateral inguinal hernias. Postoperative Diagnosis: Bilateral inguinal hernias. Procedure: Open bilateral inguinal hernia repair with mesh. Anesthesia: General endotracheal plus local with 0.25% Marcaine. Estimated Blood Loss: Less than 20 cc. Specimen: Cord and lipomas bilaterally. Findings: Bilateral indirect inguinal hernias. Complications: None. Implants: Bard PerFix plug and patch hernia repair systems, medium size x2. Disposition: The patient was transferred to recovery room in good condition. Procedure In Detail: After informed consent was obtained, patient was brought to the operating room, and prepped and draped in the usual sterile fashion. After adequate anesthesia was achieved, an are a of the right inguinal region was dissected down through subcutaneous tissue using a 15 blade. I th en dissected down through [place] fat and Carlos fascia to expose the external oblique aponeurosis. T his was opened sharply with a knife, ultimately opening it in the medial and lateral directions up to the deep inguinal ring using a Metzenbaum scissor and protecting the ilioinguinal and iliohypogastri c nerves throughout. I then circumferentially dissected around the spermatic cord and structures. T hese were encircled with a [place] drain. I then dissected the hernia sac and cord lipoma free from the spermatic cord and structures. The cord lipoma was sent off for pathologic examination after lig ation. I then returned the hernia sac to the preperitoneal position. A finger sweep was performed t o allow for landing of the mesh in the preperitoneal space. Ultimately, I placed a medium Bard PerFi x plug into the preperitoneal space and secured it circumferentially around the deep ring using a com bination of interrupted 2-0 PDS sutures in an interrupted fashion, 3 were used circumferentially arou nd and I then sized the hernia patch appropriately, secured it to the pubic tubercle in the medial as pect, irrigated the area copiously and then continued to suture the patch onto the shelving edge of t he internal oblique aponeurosis and the undersurface of the inguinal ligament with good apposition of the mesh to the tissues. I then reconstituted the deep inguinal ring in the same fashion using the same 2-0 PDS suture. I then irrigated the area. I closed the external oblique aponeurosis over the top using a running 3-0 Vicryl suture. Camper fat and Carlos fascia were then closed en bloc using i nterrupted 3-0 Vicryl suture. The skin and deep dermal planes were then reapproximated using deep de rmal sutures with 3-0 Vicryl suture and the skin was then closed with a 4-0 Monocryl in a running fas hion and Dermabond placed over top. I then turned my attention to the contralateral side. An area o f the left inguinal region was dissected down through subcutaneous tissue using a 15 blade. I then d issected down through [place] fat and Carlos fascia to expose the external oblique aponeurosis. This was opened sharply with a knife, ultimately opening it in the medial and lateral directions up to the deep inguinal ring using a Metzenbaum scissor and protecting the ilioinguinal and iliohypogastric ne rves throughout. I then circumferentially dissected around the spermatic cord and structures. These were encircled with a [place] drain. I then dissected the hernia sac and cord lipoma free from the spermatic cord and structures. The cord lipoma was sent off for pathologic examination after ligatio n. I then returned the hernia sac to the preperitoneal position. A finger sweep was performed to al low for landing of the mesh in the preperitoneal space. Ultimately, I placed a medium Bard PerFix pl ug into the preperitoneal space and secured it circumferentially around the deep ring using a combina tion of interrupted 2-0 PDS sutures in an interrupted fashion, 3 were used circumferentially around a nd I then sized the hernia patch appropriately, secured it to the pubic tubercle in the medial aspect , irrigated the area copiously and then continued to suture the patch onto the shelving edge of the i nternal oblique aponeurosis and the undersurface of the inguinal ligament with good apposition of the mesh to the tissues. I then reconstituted the deep inguinal ring in the same fashion using the same 2-0 PDS suture. I then irrigated the area. I closed the external oblique aponeurosis over the top using a running 3-0 Vicryl suture. Camper fat and Carlos fascia were then closed en bloc using interr upted 3-0 Vicryl suture. The skin and deep dermal planes were then reapproximated using deep dermal sutures with 3-0 Vicryl suture and the skin was then closed with a 4-0 Monocryl in a running fashion and Dermabond placed over top. The patient tolerated the procedure well without evidence of any comp lication and was transferred to PACU in good condition. All counts were correct at the end of the ca se. STUART/ANA Voice ID: [id number] Report ID: [id number]
== END 2022-09-11 15:05 | disposition home or self-care (01) ==
LOC: OR 07:42
PROVIDERS: ATTEND Surgery
PROC: 0YUA0JZ Supplement Bilateral Inguinal Region with Synthetic Substitute, Open Approach (ICD-10-PCS; principal; 2022-09-11 09:45)
DX: K40.20 Bilateral inguinal hernia, without obstruction or gangrene, not specified as recurrent (principal); I10 Essential (primary) hypertension; E11.9 Type 2 diabetes mellitus without complications; E78.00 Pure hypercholesterolemia, unspecified
CPT/HCPCS: 85025; 80048; 36415; 82947; 88302 ×2; 49505; J2704; J0330; J2001; J2250; J3010; A4216; J2710; J7120; J7030; J2405

== ENCOUNTER 2022-11-25 10:28 | Inpatient (IN) | payer OTHER ==
--- OUTSIDE RECORDS SUMMARY | 2022-11-25 10:37 | XMS REPORT | Continuity of Care Document ---
:1960 Author Organization [facility] t Address [address] [place] [address] Care Team Providers Name Role Phone Regina Hodges Primary Care Physician Maira Oliveira Attending Clinician Unavailable Regina Hodges Attending Clinician Unavailable Carolina Rice RN Attending Clinician Unavailable EARL GODDARD Attending Clinician Unavailable Leonora Guzman Attending Clinician Alexandre Montemayor MD Attending Clinician Earl Goddard MD Attending Clinician Doctor Unassigned, [place] Attending Clinician Unavailable Wallace Dotson MD Attending Clinician Brian Bright Attending Clinician BRIAN SCHAFFER Attending Clinician Unavailable RADIOLOGY Attending Clinician Unavailable Radiology Attending Clinician Unavailable WALLACE DOTSON Attending Clinician Unavailable BRAXTON NASH Attending Clinician Unavailable CHE BAH Attending Clinician Unavailable Che Bah MD Attending Clinician Only, Adc Test Attending Clinician Unavailable Shannon Herr DO Attending Clinician Caridad Attending Clinician Unavailable ALEXANDRE MONTEMAYOR Admitting Clinician Unavailable Alexandre Montemayor MD Admitting Clinician BRAXTON NASH II Admitting Clinician Unavailable CHE BAH Admitting Clinician Unavailable Che Bah MD Admitting Clinician Caridad Admitting Clinician Unavailable Payers Payer Name Policy Type Policy Number Effective Date Expiration Date S zena [facility] DUAL [id number] 2020 COMP HMO D SNP 00:00:00 [place]ICA[place] [id number] 2020 [place] 00:[place]:00 AARP [facility] 53 [id number] 2020 Common ADVANTAGE 00:00:00 [facility] [id number] [facility] MEDICARE [id number] 2020 COMPLETE CHOICE 00:00:00 [employer] GOLD PLS [id number] 2019 HMO 00:00:00 MEDICARE PART A [id number] 2004 2019 \T\ B 00:00:00 00:00:00 Problems Condition Condition Condition Status Onset Resolution Last Treating Co mments Source Name Details Category Date Date Treatment Clinician Date Coronary Coronary Disease Active 2021-09 Unive rs artery artery 1-17 ity of disease disease 00:00: [place] involving involving 00 Medi [place] coronary coronary artery of artery of [place] heart heart without without angina angina pectoris pectoris Generalize Generalize Disease Active 2021-09 U nivers d d 1-17 [place] of abdominal abdominal [place] pain pain 00 [place] Other Other Disease Active 2021-09 Univers hyperlipid hyperlipid 1-17 it y of emia emia 00:00: [place] 00 Medical Branch Chest pain Chest pain Disease Active 2021-09 U nivers 1-16 ity of 00:00: [place] 00 Medical Branch Other Other Disease Active 2020-09 Univers age-relate age-relate 2-07 it y of d cataract d cataract [place] of left of left 00 Medical eye eye Branch Obesity Obesity Disease Active Univers (BMI (BMI 3-06 ity of 30-39.9) 30-39.9) 00:00: Medical Branch Left knee Left knee Disease Active Uni vers pain pain 1-10 ity of 00:00: [place] [facility] Left knee Left knee Disease Active Uni vers pain pain 1-10 ity of 00:00: [place] [facility] Shoulder Shoulder Disease Active Unive rs pain, pain, 5-10 ity of bilateral [facility] Foot pain, Foot pain, Disease Active U nivers left left 3-09 ity of 00:00: [place] [facility] [id number] Essential Problem Comm on hypertensi Spirit on - CHI [facility] [id number] [place] [id number] prostatic Spirit hyperplasi - CHI a with [facility] urinary Medical tract Center symptoms [id number] Other Problem Common secondary Spirit acute gout - CHI of left [facility] [id number] Type 2 Problem Common diabetes Spirit mellitus - CHI without [facility] on, Medical unspecifie Center d whether joint terminal attack controller insulin use [id number] Acquired Problem Comm on hypothyroi Spirit dism [facility] [id number] Frequency Problem Com mon of Spirit micturitio - CHI n [facility] [id number] Mass in Problem Commo n neck [facility] [id number] History of Problem C ommon right Spirit below knee - CHI amputation [facility] [id number] Cervical Problem Com mon osteophyte [facility] [id number] [place] [id number] exam [facility] [id number] [place] [address] deep vein Spirit thrombosis - CHI (DVT) of [facility] muscle Medical vein of Center both lower extremitie s [id number] Folic acid Problem Co mmon deficiency Spirit - 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 Raised Raised Problem Active [place] Prostate da specific Specific Medica l antigen Antigen Group Allergies, Adverse Reactions, Alerts Allergy Allergy Status Severity Reaction(s) Onset Inactive Treating Comm ents Source Name Type Date Date Clinician AMLODIPI DRUG Active Unknown-Cmnt 2021-09 Un jovi NE INGREDI 10-12 ity of 00:00: 00 Medical Branch Amlodipi Propensi Active Unknown - 2021-09 Reaction U nivers ne ty to See comments 10-12 unknown ity of adverse 00:00: [place] reaction 00 Medical s Branch NO KNOWN Drug Active Univers ALLERGIE Class ity of S [facility] 7200 Drug Active CP, SOB, Common allergy Nausea [facility] Social History Social Habit Start Date Stop Date Quantity Comments Source Sex Assigned At Common Sp josee - [facility] History of Common Spirit - Tobacco Use [facility] History SDND Food 2022-08-14 2022-08-14 1 Univers ity of Worry 00:00:00 00:00:00 [facility] History SDOH Food 2022-08-14 2022-08-14 1 Univers ity of Scarcity 00:00:00 00:00:00 [facility] History SDOH 2022-08-14 2022-08-14 2 University o f Transport Med 00:00:00 00:00:00 [facility] al Branch History SDOH 2022-08-14 2022-08-14 2 University o f Transport Non-Med 00:00:00 00:00:00 [facility] edical Branch Alcohol intake 2022-08-13 2022-08-13 0 /d University of 00:00:00 00:00:00 [facility] Exposure to 2022-08-02 2022-08-12 Not sure University of SARS-CoV-2 00:00:00 10:42:00 [facility] (event) Branch Tobacco use and 2022-05-19 2022-05-19 Smokeless tobacco Un iversity of exposure 00:00:00 00:00:00 non-user [facility] Smoking Status Start Date Stop Date Source Never smoked tobacco [facility] Medications Ordered Filled Start Stop Current Ordering Indication Dosage Frequency Signature Comments Components Source Medication Medication Date Date Medication? Clinician (SIG) Name Name rehana 2021-09 Yes 20mg 20 mg, Univ ers n (LIPITOR) 1-18 Oral, QHS, it y of tablet 20 03:00[place] mg 00 on [facility] 08/13/22 Branch at 2100, Until Discontinu ed sulfur 2021-09 202- No [id number] 5mL 5 mL, Unive rs hexafluorid -08-13 Intravenou i ty of e microsphr 20:30: 20:30 s, ONCE, 1 [place] (LUMASON) 00 :00 dose, On Medica l injection 5 [facility] Branch mL 08/13/22 at [address], [address] team member approving Restricted medication : MANDY VAUGHN clopidogreL 2021-09 Yes 75mg Take 75 mg Univers (PLAVIX) 75 -17 by mouth ity of mg tablet 16:36: in the [place] [address] morning. Medical Branch Levothyroxi 2021-09 Yes Take by Uni vers ne 75 mcg 1-17 mouth. ity of capsule 16:36: [place] [address] Medical Branch finasteride 2021-09 Yes 5mg Take 5 mg U nivers 5 mg tablet -17 by mouth ity of 16:36: in the [place] [address] morning. Medical Branch losartan 2021-09 Yes 100mg Take 100 Univ ers 100 mg 1-17 mg by ity of tablet 16:36: mouth in [place] [address] the Medical morning. Branch metFORMIN 2021-09 Yes 500mg Take 500 Uni vers 500 mg 1-17 mg by ity of tablet 16:36: mouth in [place] [address] the Medical morning Branch and 500 mg in the evening. Take with meals. lovastatin 2021-09 Yes 20mg Take 20 mg U nivers 20 mg 1-17 by mouth ity of tablet 16:36: at [place] [address] bedtime. Medical Branch tamsulosin 2021-09 Yes Take by Univ ers (FLOMAX) 1-17 mouth ity of 0.4 mg 24 16:36: daily. [facility] capsule 03 Medical Branch ergocalcife 2021-09 Yes 2000U Take 2,000 Univers rol, 1-17 Units by ity of vitamin D2, 16:36: mouth. Servando s (VITAMIN D Medical ORAL) Branch aspirin 81 2021-09 Yes 81mg Take 81 mg U nivers mg chewable 1-17 by mouth ity of tablet 16:36: in the [place] [address] morning. Medical Branch clopidogreL 2021-09 Yes 75mg Take 75 mg Univers (PLAVIX) 75 -17 by mouth ity of mg tablet 16:36: in the [place] [address] morning. Medical Branch Levothyroxi 2021-09 Yes Take by Uni vers ne 75 mcg 1-17 mouth. ity of capsule 16:36: [place] [address] Medical Branch finasteride 2021-09 Yes 5mg Take 5 mg U nivers 5 mg tablet -17 by mouth ity of 16:36: in the [place] [address] morning. Medical Branch losartan 2021-09 Yes 100mg Take 100 Univ ers 100 mg 1-17 mg by ity of tablet 16:36: mouth in [place] [address] the Medical morning. Branch metFORMIN 2021-09 Yes 500mg Take 500 Uni vers 500 mg 1-17 mg by ity of tablet 16:36: mouth in [place] [address] the Medical morning Branch and 500 mg in the evening. Take with meals. lovastatin 2021-09 Yes 20mg Take 20 mg U nivers 20 mg 1-17 by mouth ity of tablet 16:36: at [place] [address] bedtime. Medical Branch tamsulosin 2021-09 Yes Take by Univ ers (FLOMAX) 1-17 mouth ity of 0.4 mg 24 16:36: daily. [facility] Medical Branch ergocalcife 2021-09 Yes 2000U Take 2,000 Univers rol, 1-17 Units by ity of vitamin D2, 16:36: mouth. Servando s (VITAMIN D Medical ORAL) Branch aspirin 81 2021-09 Yes 81mg Take 81 mg U nivers mg chewable 1-17 by mouth ity of tablet 16:36: in the [place] [address] morning. Medical Branch polyethylen 2021-09 Yes 17g 17 g, Unive rs e glycol 1-17 Oral, ity of 3350 powder 15:00: DAILY, Serv[place] s 17 g 00 First dose Medical on [facility] Branch 08/13/22 at 0900, Until Discontinu ed, Routine tamsulosin 2021-09 Yes .4mg 0.4 mg, Univ ers (FLOMAX) 1-17 Oral, ity of capsule 0.4 15:00: [place], [place] 00 First dose Medical on [facility] 08/13/22 at 0900, Until Discontinu ed, Routine losartan 2021-09 Yes 100mg 100 mg, Unive rs (COZAAR) 1-17 Oral, ity of tablet 100 15:00: DAILY, [place] mg 00 First dose Medical on [facility] 08/13/22 at 0900, Until Discontinu ed, Routine finasteride 2021-09 Yes 5mg 5 mg, Unive rs (PROSCAR) 1-17 Oral, ity of tablet 5 mg 15:00: [place], [place] First dose Medical on [facility] 08/13/22 at 0900, Until Discontinu ed, Routine clopidogreL 2021-09 Yes 75mg 75 mg, Univ ers (PLAVIX) 75 1-17 Oral, ity of mg tablet 15:00: DAILY, [place] 75 mg 00 First dose Medical on [facility] 08/13/22 at 0900, Until Discontinu ed, Routine aspirin 2021-09 Yes 81mg 81 mg, Univers chewable 1-17 Oral, ity of tablet 81 15:00: DAILY, [place] mg 00 First dose Medical on [facility] 08/13/22 at 0900, Until Discontinu ed, Routine enoxaparin 2021-09 Yes 40mg 40 mg, Unive rs (LOVENOX) 1-17 Subcutaneo ity of injection 15:00: [place], [place], [place] 40 mg 00 First dose Medical on [facility] 08/13/22 at 0900, Until Discontinu ed, Routine Sliding 2021-09 Yes Subcutaneo Univ ers Scale 1-17 us, TID ity of Insulin - 14:00: MEALS+HS, [place] Lispro 00 First dose Medical (HumaLOG) + on [facility] 08/13/22 Testing at 0800, Until Discontinu ed, Routine levothyroxi 2021-09 Yes 75ug 75 mcg, Uni vers ne 1-17 Oral, ity of (SYNTHROID) 12:00: QAM-0600, [place] tablet 75 00 First dose Medi balb[place] mcg on [facility] 08/13/22 at 0600, Until Discontinu ed dextrose 2021-09 Yes 250mL 250 mL, IV Un jovi 10% (D10W) 10-13 Infusion, ity of bolus 06:39: PRN - SEE [place] infusion 28 INSTRUCTIO Medic al 250 mL NS, Branch Administer over 60 Minutes, Other, If blood glucose is < or = 70 mg/dL and patient is unable to swallow or has mental status changes, Starting on [facility] 08/13/22 at 0039
If blood glucose is < or = 70 mg/dL and patient is unable to swallow or has mental status changes (Give glucagon order if patient needs fluid restrictio n): IF IV access available: Dextrose 10%. 1. 125 mL (? bag) of D10W IV infusion - equivalent to 12.5 g dextrose 2. Blood glucose - draw blood glucose 15 minutes after D10W Administra tion. 3. If blood glucose is < 80 mg/dL, repeat.
glucagon 2021-09 Yes 1mg 1 mg, Univers (GLUCAGEN 10-13 Intramuscu ity of DIAGNOSTIC 06:39: [place], PRN, [place] KIT) 25 Starting Medical injection 1 on [facility] 08/13/22 at 0039, Until Discontinu ed, VAUGHN, Blood Glucose < or = 70 mg/dL and patient is unable to swallow or has mental changes. morpHINE (2 2021-09- No 2mg 2 mg, Slow Univers mg/mL) 10-13 IV Push, ity of injection 2 01:00: 00:59 Q6HPRN, [place] mg 09 :09 Starting Medical on Wed Branch 08/12/22 at 1900, Until [facility] 08/13/22 at 1859, Routine, Pain (scale 7-10), Chest pain traMADoL 2021-09- No 50mg 50 mg, Univer s (ULTRAM) 10-13 Oral, ity of tablet 50 01:00: 00:59 Q8HPRN, [place] mg 01 :01 Starting Medical on Wed Branch 08/12/22 at 1900, Until Wed08/14/22 at 1859, Routine, Pain (scale 4-6) acetaminoph 2021-09 Yes 650mg 650 mg, Un jovi en 10-13 Oral, ity of (TYLENOL) 00:59: Q6HPRN, [place] tablet 650 59 Starting Medic al mg on Wed08/12/22 at 1859, Until Discontinu ed, Routine, Pain (scale 1-3) iopamidol 2021-09- No [id number] 100mL 100 mL, Univers (ISOVUE 10-12 Intravenou ity o f 370-500 mL) 19:45: 19:33 s, ONCE, 1 [place] injection 00 :00 dose, On Medica l 100 mL Wed08/12/22 at 1345, Routine hydralAZINE 2021-09- No 10mg 10 mg, Uni vers (APRESOLINE 10-12 Slow IV ity of ) injection 19:45: 18:58 Push, [place] 10 mg 00 :00 ONCE, 1 Medical dose, On Branch Wed08/12/22 at 1345, STAT LORazepam 2021-09- No 1mg 1 mg, Slow U nivers (ATIVAN) 10-12 IV Push, ity of injection 1 19:15: 19:11 ONCE, 1 [place] mg 00 :00 dose, On Medical Wed08/12/22 at 1315, STAT morpHINE (4 2021-09- No 4mg 4 mg, Slow Univers mg/mL) 10-12 IV Push, ity of injection 4 19:00: 18:55 ONCE, 1 [place] mg 00 :00 dose, On Wed08/12/22 at 1300, STAT nitroglycer 2021-09- No .4mg 0.4 mg, Un jovi in 10-12 Sublingual ity of (NITROSTAT) 18:15: 18:06 , ONCE, 1 [place] sublingual 00 :00 dose, On Medic al tablet 0.4 Wed08/12/22 at 1215, VAUGHN nitroglycer 2021-09 Yes .4mg 0.4 mg, Uni vers in 10-12 Sublingual ity of (NITROSTAT) 18:10: , Q5MIN [place] sublingual 40 PRN, 2 Medical tablet 0.4 doses, Branch mg Starting on Wed08/12/22 at 1210, Until Discontinu ed, VAUGHN, Chest pain ondansetron 2021-09- No 4mg 4 mg, Slow Univers (ZOFRAN 10-12 IV Push, ity of (PF)) 17:15: 17:11 ONCE, 1 [place] injection 4 00 :00 dose, On Medi balbina mg Wed Branch 08/12/22 at 1115, VAUGHN morpHINE (4 2021-09- No 4mg 4 mg, Slow Univers mg/mL) 10-12 IV Push, ity of injection 4 17:15: 17:12 ONCE, 1 [place] mg 00 :00 dose, On Medical Wed Branch 08/12/22 at 1115, STAT Lidocaine & Lidocaine & 2021- No QD Lidocaine Adhesive Adhesive 06-19 & Adhesive Sheet 5 % Sheet 5 % 00:00: 00:00 Sheet 5 % (Patch) (Patch) 00 :00 (Patch) Lidocaine & Lidocaine & 2021- No QD Lidocaine Adhesive Adhesive 06-1913 & Adhesive Sheet 5 % Sheet 5 % 00:00: 00:00 Sheet 5 % (Patch) (Patch) 00 :00 (Patch) Lidocaine & Lidocaine & 0 2021- No QD Lidocaine Adhesive Adhesive 06-19-13 & Adhesive Sheet 5 % Sheet 5 % 00:00: 00:00 Sheet 5 % (Patch) (Patch) 00 :00 (Patch) Lidocaine & Lidocaine & 2021-0 2021- No QD Lidocaine Adhesive Adhesive 06-1913 & Adhesive Sheet 5 % Sheet 5 % 00:00: 00:00 Sheet 5 % (Patch) (Patch) 00 :00 (Patch) Lidocaine & Lidocaine & 0 2021- No QD Lidocaine Adhesive Adhesive 06-19 10-13 & Adhesive Sheet 5 % Sheet 5 % 00:00: 00:00 Sheet 5 % (Patch) (Patch) 00 :00 (Patch) Lidocaine & Lidocaine & 0 2021- No QD Lidocaine Adhesive Adhesive 06-19 10-13 & Adhesive Sheet 5 % Sheet 5 % 00:00: 00:00 Sheet 5 % (Patch) (Patch) 00 :00 (Patch) meloxicam 2021- No [id number] 15mg Take 1 Univers 15 mg 05-19 [id number] tablet by ity of tablet 00:00: 04:59 mouth in [place] 00 :00 the [facility] for 30 days. meloxicam 2021- No [id number] 15mg Take 1 Univers 15 mg 05-19 [id number] tablet by ity of tablet 00:00: 04:59 mouth in [place] 00 :00 the [facility] for 30 days. meloxicam 2021- No [id number] 15mg Take 1 Univers 15 mg 05-19 [id number] tablet by ity of tablet 00:00: 04:59 mouth in [place] 00 :00 the [facility] for 30 days. methylPREDN Yes [id number] 84mg Take 21 Univers ISolone 5-23 9103 tablets by ity of (MEDROL, 00:00: mouth [place] MICHELE,) 4 mg 00 SEE-INSTRU Med ical tablets CTIONS. Branch follow package directions methylPREDN 0 Yes [id number] 84mg Take 21 Univers ISolone 5-23 9103 tablets by ity of (MEDROL, 00:00: mouth [place] MICHELE,) 4 mg 00 SEE-INSTRU Med ical tablets CTIONS. Branch follow package directions methylPREDN 0 Yes [id number] 84mg Take 21 Univers ISolone 5-23 9103 tablets by ity of (MEDROL, 00:00: mouth [place] MICHELE,) 4 mg 00 SEE-INSTRU Med ical tablets CTIONS. Branch follow package directions methylPREDN 0 Yes [id number] 84mg Take 21 Univers ISolone 5-23 9103 tablets by ity of (MEDROL, 00:00: mouth [place] MICHELE,) 4 mg 00 SEE-INSTRU Med ical tablets CTIONS. Branch follow package directions methylPREDN 0 2021- No [id number] 84mg Take 21 Univers ISolone 5-23 11-17 9103 tablets by ity o f (MEDROL, 00:00: 00:00 mouth [place] MICHELE,) 4 mg 00 :00 SEE-INSTRU Med ical tablets CTIONS. Branch follow package directions Meloxicam Meloxicam 2- No 1{table QD Meloxicam 7.5 MG 7.5 MG 5-11 06-10 t} 7.5 MG 00:00: 00:00 00 :00 Meloxicam Meloxicam 2021-0 2- No 1{table QD Meloxicam 7.5 MG 7.5 MG 02-0410 t} 7.5 MG 00:00: 00:00 00 :00 tiZANidine tiZANidine 2021-0 2- No 1{table tiZANidine HCl 4 MG HCl 4 MG 02-04 t_as_ne HCl 4 MG 00:00: 00:00 eded} 00 :00 Rocephin Rocephin 2-0 No 1000mg Com mon (Ceftriaxon (Ceftriaxon 4-11 S pirit e) e) 00:00: - CHI 00 [facility] Toradol Toradol 2021-0 No 30mg Common (Ketorolac) (Ketorolac) 4-11 S pirit 00:00: - CHI [facility] Rocephin Rocephin 2-0 No 1000mg Com mon (Ceftriaxon (Ceftriaxon 4-11 S pirit e) e) 00:00: - CHI [facility] Toradol Toradol 2021-0 No 30mg Common (Ketorolac) (Ketorolac) 4-11 S pirit 00:00: - CHI [facility] Rocephin Rocephin 2-0 No 1000mg Com mon (Ceftriaxon (Ceftriaxon 4-11 S pirit e) e) 00:00: - CHI [facility] Toradol Toradol 2-0 No 30mg Common (Ketorolac) (Ketorolac) 4-11 S pirit 00:00: - CHI [facility] Naproxen Naproxen 2-0 No BID Naproxen 500 MG 500 MG 4-11 500 MG 00:00: 00 Rocephin Rocephin 2-0 No 1000mg Com mon (Ceftriaxon (Ceftriaxon 4-11 S pirit e) e) 00:00: - CH[facility] Toradol Toradol 2-0 No 30mg Common (Ketorolac) (Ketorolac) 4-11 S pirit 00:00: - [facility] Naproxen Naproxen 2-0 No BID Naproxen 500 MG 500 MG 4-11 500 MG 00:00: 00 Rocephin Rocephin 2-0 No 1000mg Com mon (Ceftriaxon (Ceftriaxon 4-11 S pirit e) e) 00:00: - [facility]I 00 [facility] Toradol Toradol 2021-0 No 30mg Common (Ketorolac) (Ketorolac) 4-11 S pirit 00:00: - CHI 00 [facility] Rocephin Rocephin 2-0 No 1000mg Com mon (Ceftriaxon (Ceftriaxon 4-11 S pirit e) e) 00:00: - [facility]I 00 [facility] Toradol Toradol 2021-0 No 30mg Common (Ketorolac) (Ketorolac) 4-11 S pirit 00:00: - [facility]I 00 [facility] Rocephin Rocephin 2-0 No 1000mg Com mon (Ceftriaxon (Ceftriaxon 4-11 S pirit e) e) 00:00: - [facility] Toradol Toradol 2021-0 No 30mg Common (Ketorolac) (Ketorolac) 4-11 S pirit 00:00: - [facility]I 00 [facility] Rocephin Rocephin 2-0 No 1000mg Com mon (Ceftriaxon (Ceftriaxon 4-11 S pirit e) e) 00:00: - [facility]I 00 [facility] Toradol Toradol 2021-0 No 30mg Common (Ketorolac) (Ketorolac) 4-11 S pirit 00:00: - CHI [facility] Rocephin Rocephin 2-0 No 1000mg Com mon (Ceftriaxon (Ceftriaxon 4-11 S pirit e) e) 00:00: - [facility] Toradol Toradol 2021-0 No 30mg Common (Ketorolac) (Ketorolac) 4-11 S pirit 00:00: - [facility]I 00 [facility] Rocephin Rocephin 2-0 No 1000mg Com mon (Ceftriaxon (Ceftriaxon 4-11 S pirit e) e) 00:00: - CHI [facility] Toradol Toradol 2021-0 No 30mg Common (Ketorolac) (Ketorolac) 4-11 S pirit 00:00: - [facility]I 00 [facility] Rocephin Rocephin 2-0 No 1000mg Com mon (Ceftriaxon (Ceftriaxon 4-11 S pirit e) e) 00:00: - [facility]I 00 [facility] Toradol Toradol 2-0 No 30mg Common (Ketorolac) (Ketorolac) 4-11 S pirit 00:00: - [facility]I 00 [facility] Rocephin Rocephin 2-0 No 1000mg Com mon (Ceftriaxon (Ceftriaxon 4-11 S pirit e) e) 00:00: - CHI 00 [facility] Toradol Toradol 2021-0 No 30mg Common (Ketorolac) (Ketorolac) 4-11 S pirit 00:00: - CHI 00 [facility] Rocephin Rocephin 2-0 No 1000mg Com mon (Ceftriaxon (Ceftriaxon 4-11 S pirit e) e) 00:00: - [facility]I 00 [facility] Toradol Toradol 2021-0 No 30mg Common (Ketorolac) (Ketorolac) 4-11 S pirit 00:00: - [facility]I 00 [facility] Amoxicillin Amoxicillin 2021-0 2021- No 1{table BID Amoxicilli -Pot -Pot 01-05-18 t} n-Pot Clavulanate Clavulanate 00:00: 00:00 Clavulanat 875-125 MG 875-125 MG 00 :00 e 875-125 MG Fish Oil Fish Oil 2020-09 No 2{capsu QD Fish Oil 1000 MG 1000 MG 0-04 le} 1000 MG 00:00: 00 Folic Acid Folic Acid 2020-09 No 1{table Folic Acid 1 MG 1 MG 0-04 t} 1 MG 00:00: 00 Vitamin D-3 Vitamin D-3 2020-09 No 2{capsu QD Vitamin 25 MCG 25 MCG 0-04 le} D-3 25 MCG (1000 UT) (1000 UT) 00:00: (1000 UT) 00 Fish Oil Fish Oil 2020-09 No 2{capsu QD Fish Oil 1000 MG 1000 MG 0-04 le} 1000 MG 00:00: 00 Folic Acid Folic Acid 2021-1 No 1{table Folic Acid 1 MG 1 MG 0-04 t} 1 MG 00:00: 00 Vitamin D-3 Vitamin D-3 2020-09 No 2{capsu QD Vitamin 25 MCG 25 MCG 0-04 le} D-3 25 MCG (1000 UT) (1000 UT) 00:00: (1000 UT) 00 Fish Oil Fish Oil 2020-09 No 2{capsu QD Fish Oil 1000 MG 1000 MG 0-04 le} 1000 MG 00:00: 00 Folic Acid Folic Acid 2020-09 No 1{table Folic Acid 1 MG 1 MG 0-04 t} 1 MG 00:00: 00 Vitamin D-3 Vitamin D-3 2020-09 No 2{capsu QD Vitamin 25 MCG 25 MCG 0-04 le} D-3 25 MCG (1000 UT) (1000 UT) 00:00: (1000 UT) 00 Folic Acid Folic Acid 2020-09 No 1{table QD Folic Acid 1 MG 1 MG 0-04 t} 1 MG 00:00: 00 Vitamin D-3 Vitamin D-3 2020-09 No 2{capsu QD Vitamin 25 MCG 25 MCG 0-04 le} D-3 25 MCG (1000 UT) (1000 UT) 00:00: (1000 UT) 00 Fish Oil Fish Oil 2020-09 No 2{capsu QD Fish Oil 1000 MG 1000 MG 0-04 le} 1000 MG 00:00: 00 Folic Acid Folic Acid 2020-09 No 1{table QD Folic Acid 1 MG 1 MG 0-04 t} 1 MG 00:00: 00 Vitamin D-3 Vitamin D-3 2020-09 No 2{capsu QD Vitamin 25 MCG 25 MCG 0-04 le} D-3 25 MCG (1000 UT) (1000 UT) 00:00: (1000 UT) 00 Fish Oil Fish Oil 2020-09 No 2{capsu QD Fish Oil 1000 MG 1000 MG 0-04 le} 1000 MG 00:00: 00 Folic Acid Folic Acid 2020-09 No 1{table QD Folic Acid 1 MG 1 MG 0-04 t} 1 MG 00:00: 00 Vitamin D-3 Vitamin D-3 2020-09 No 2{capsu QD Vitamin 25 MCG 25 MCG 0-04 le} D-3 25 MCG (1000 UT) (1000 UT) 00:00: (1000 UT) 00 Fish Oil Fish Oil 2020-09 No 2{capsu QD Fish Oil 1000 MG 1000 MG 0-04 le} 1000 MG 00:00: 00 Folic Acid Folic Acid 2020-09 No 1{table QD Folic Acid 1 MG 1 MG 0-04 t} 1 MG 00:00: 00 Vitamin D-3 Vitamin D-3 2020-09 No 2{capsu QD Vitamin 25 MCG 25 MCG 0-04 le} D-3 25 MCG (1000 UT) (1000 UT) 00:00: (1000 UT) 00 Fish Oil Fish Oil 2020-09 No 2{capsu QD Fish Oil 1000 MG 1000 MG 0-04 le} 1000 MG 00:00: 00 Folic Acid Folic Acid 2020-09 No 1{table QD Folic Acid 1 MG 1 MG 0-04 t} 1 MG 00:00: 00 Vitamin D-3 Vitamin D-3 2020-09 No 2{capsu QD Vitamin 25 MCG 25 MCG 0-04 le} D-3 25 MCG (1000 UT) (1000 UT) 00:00: (1000 UT) 00 Fish Oil Fish Oil 2020-09 No 2{capsu QD Fish Oil 1000 MG 1000 MG 0-04 le} 1000 MG 00:00: 00 Vitamin D-3 Vitamin D-3 2020-09 No 2{capsu QD Vitamin 25 MCG 25 MCG 0-04 le} D-3 25 MCG (1000 UT) (1000 UT) 00:00: (1000 UT) 00 Folic Acid Folic Acid 2020-09 No 1{table Folic Acid 1 MG 1 MG 0-04 t} 1 MG 00:00: 00 Fish Oil Fish Oil 2020-09 No 2{capsu QD Fish Oil 1000 MG 1000 MG 0-04 le} 1000 MG 00:00: 00 Vitamin D-3 Vitamin D-3 2020-09 No 2{capsu QD Vitamin 25 MCG 25 MCG 0-04 le} D-3 25 MCG (1000 UT) (1000 UT) 00:00: (1000 UT) 00 Folic Acid Folic Acid 2020-09 No 1{table Folic Acid 1 MG 1 MG 0-04 t} 1 MG 00:00: 00 Fish Oil Fish Oil 2020-09 No 2{capsu QD Fish Oil 1000 MG 1000 MG 0-04 le} 1000 MG 00:00: 00 Fish Oil Fish Oil 2020-09 No 2{capsu QD Fish Oil 1000 MG 1000 MG 0-04 le} 1000 MG 00:00: 00 Vitamin D-3 Vitamin D-3 2020-09 No 2{capsu QD Vitamin 25 MCG 25 MCG 0-04 le} D-3 25 MCG (1000 UT) (1000 UT) 00:00: (1000 UT) 00 Folic Acid Folic Acid 2020-09 No 1{table Folic Acid 1 MG 1 MG 0-04 t} 1 MG 00:00: 00 Fish Oil Fish Oil 2020-09 No 2{capsu QD Fish Oil 1000 MG 1000 MG 0-04 le} 1000 MG 00:00: 00 Vitamin D-3 Vitamin D-3 2020-09 No 2{capsu QD Vitamin 25 MCG 25 MCG 0-04 le} D-3 25 MCG (1000 UT) (1000 UT) 00:00: (1000 UT) 00 Folic Acid Folic Acid 2020-09 No 1{table Folic Acid 1 MG 1 MG 0-04 t} 1 MG 00:00: 00 Vitamin D-3 Vitamin D-3 2020-09 No 2{capsu QD Vitamin 25 MCG 25 MCG 0-04 le} D-3 25 MCG (1000 UT) (1000 UT) 00:00: (1000 UT) 00 Fish Oil Fish Oil 2020-09 No 2{capsu QD Fish Oil 1000 MG 1000 MG 0-04 le} 1000 MG 00:00: 00 Folic Acid Folic Acid 2020-09 No 1{table Folic Acid 1 MG 1 MG 0-04 t} 1 MG 00:00: 00 Vitamin D-3 Vitamin D-3 2020-09 No 2{capsu QD Vitamin 25 MCG 25 MCG 0-04 le} D-3 25 MCG (1000 UT) (1000 UT) 00:00: (1000 UT) 00 Fish Oil Fish Oil 2020-09 No 2{capsu QD Fish Oil 1000 MG 1000 MG 0-04 le} 1000 MG 00:00: 00 Folic Acid Folic Acid 2020-09 No 1{table Folic Acid 1 MG 1 MG 0-04 t} 1 MG 00:00: 00 Folic Acid Folic Acid 2020-09 No 1{table Folic Acid 1 MG 1 MG 0-04 t} 1 MG 00:00: 00 Fish Oil Fish Oil 2020-09 No 2{capsu QD Fish Oil 1000 MG 1000 MG 0-04 le} 1000 MG 00:00: 00 Vitamin D-3 Vitamin D-3 2020-09 No 2{capsu QD Vitamin 25 MCG 25 MCG 0-04 le} D-3 25 MCG (1000 UT) (1000 UT) 00:00: (1000 UT) 00 Folic Acid Folic Acid 2020-09 No 1{table Folic Acid 1 MG 1 MG 0-04 t} 1 MG 00:00: 00 Fish Oil Fish Oil 2020-09 No 2{capsu QD Fish Oil 1000 MG 1000 MG 0-04 le} 1000 MG 00:00: 00 Vitamin D-3 Vitamin D-3 2020-09 No 2{capsu QD Vitamin 25 MCG 25 MCG 0-04 le} D-3 25 MCG (1000 UT) (1000 UT) 00:00: (1000 UT) 00 Fish Oil Fish Oil 2020-09 No 2{capsu QD Fish Oil 1000 MG 1000 MG 0-04 le} 1000 MG 00:00: 00 Vitamin D-3 Vitamin D-3 2020-09 No 2{capsu QD Vitamin 25 MCG 25 MCG 0-04 le} D-3 25 MCG (1000 UT) (1000 UT) 00:00: (1000 UT) 00 Folic Acid Folic Acid 2020-09 No 1{table Folic Acid 1 MG 1 MG 0-04 t} 1 MG 00:00: 00 Folic Acid Folic Acid 2020-09 No 1{table Folic Acid 1 MG 1 MG 0-04 t} 1 MG 00:00: 00 Vitamin D-3 Vitamin D-3 2020-09 No 2{capsu QD Vitamin 25 MCG 25 MCG 0-04 le} D-3 25 MCG (1000 UT) (1000 UT) 00:00: (1000 UT) 00 Fish Oil Fish Oil 2020-09 No 2{capsu QD Fish Oil 1000 MG 1000 MG 0-04 le} 1000 MG 00:00: 00 Fish Oil Fish Oil 2020-09 No 2{capsu QD Fish Oil 1000 MG 1000 MG 0-04 le} 1000 MG 00:00: 00 Folic Acid Folic Acid 2020-09 No 1{table Folic Acid 1 MG 1 MG 0-04 t} 1 MG 00:00: 00 Vitamin D-3 Vitamin D-3 2020-09 No 2{capsu QD Vitamin 25 MCG 25 MCG 0-04 le} D-3 25 MCG (1000 UT) (1000 UT) 00:00: (1000 UT) 00 Folic Acid Folic Acid 2020-09 No 1{table Folic Acid 1 MG 1 MG 0-04 t} 1 MG 00:00: 00 Fish Oil Fish Oil 2020-09 No 2{capsu QD Fish Oil 1000 MG 1000 MG 0-04 le} 1000 MG 00:00: 00 Vitamin D-3 Vitamin D-3 2020-09 No 2{capsu QD Vitamin 25 MCG 25 MCG 0-04 le} D-3 25 MCG (1000 UT) (1000 UT) 00:00: (1000 UT) 00 Fish Oil Fish Oil 2020-09 No 2{capsu QD Fish Oil 1000 MG 1000 MG 0-04 le} 1000 MG 00:00: 00 Folic Acid Folic Acid 2020-09 No 1{table Folic Acid 1 MG 1 MG 0-04 t} 1 MG 00:00: 00 Vitamin D-3 Vitamin D-3 2020-09 No 2{capsu QD Vitamin 25 MCG 25 MCG 0-04 le} D-3 25 MCG (1000 UT) (1000 UT) 00:00: (1000 UT) 00 Vitamin D-3 Vitamin D-3 2020-09 No 2{capsu QD Vitamin 25 MCG 25 MCG 0-04 le} D-3 25 MCG (1000 UT) (1000 UT) 00:00: (1000 UT) 00 Folic Acid Folic Acid 2020-09 No 1{table Folic Acid 1 MG 1 MG 0-04 t} 1 MG 00:00: 00 Fish Oil Fish Oil 2020-09 No 2{capsu QD Fish Oil 1000 MG 1000 MG 0-04 le} 1000 MG 00:00: 00 Fish Oil Fish Oil 2020-09 No 2{capsu QD Fish Oil 1000 MG 1000 MG 0-04 le} 1000 MG 00:00: 00 Vitamin D-3 Vitamin D-3 2020-09 No 2{capsu QD Vitamin 25 MCG 25 MCG 0-04 le} D-3 25 MCG (1000 UT) (1000 UT) 00:00: (1000 UT) 00 Folic Acid Folic Acid 2020-09 No 1{table Folic Acid 1 MG 1 MG 0-04 t} 1 MG 00:00: 00 Fish Oil Fish Oil 2020-09 No 2{capsu QD Fish Oil 1000 MG 1000 MG 0-04 le} 1000 MG 00:00: 00 Folic Acid Folic Acid 2020-09 No 1{table Folic Acid 1 MG 1 MG 0-04 t} 1 MG 00:00: 00 Vitamin D-3 Vitamin D-3 2020-09 No 2{capsu QD Vitamin 25 MCG 25 MCG 0-04 le} D-3 25 MCG (1000 UT) (1000 UT) 00:00: (1000 UT) 00 Fish Oil Fish Oil 2020-09 No 2{capsu QD Fish Oil 1000 MG 1000 MG 0-04 le} 1000 MG 00:00: 00 Folic Acid Folic Acid 2020-09 No 1{table Folic Acid 1 MG 1 MG 0-04 t} 1 MG 00:00: 00 Vitamin D-3 Vitamin D-3 2020-09 No 2{capsu QD Vitamin 25 MCG 25 MCG 0-04 le} D-3 25 MCG (1000 UT) (1000 UT) 00:00: (1000 UT) 00 Fish Oil Fish Oil 2020-09 No 2{capsu QD Fish Oil 1000 MG 1000 MG 0-04 le} 1000 MG 00:00: 00 Folic Acid Folic Acid 2020-09 No 1{table Folic Acid 1 MG 1 MG 0-04 t} 1 MG 00:00: 00 Vitamin D-3 Vitamin D-3 2020-09 No 2{capsu QD Vitamin 25 MCG 25 MCG 0-04 le} D-3 25 MCG (1000 UT) (1000 UT) 00:00: (1000 UT) 00 Folic Acid Folic Acid 2020-09 No 1{table Folic Acid 1 MG 1 MG 0-04 t} 1 MG 00:00: 00 Fish Oil Fish Oil 2020-09 No 2{capsu QD Fish Oil 1000 MG 1000 MG 0-04 le} 1000 MG 00:00: 00 Vitamin D-3 Vitamin D-3 2020-09 No 2{capsu QD Vitamin 25 MCG 25 MCG 0-04 le} D-3 25 MCG (1000 UT) (1000 UT) 00:00: (1000 UT) 00 Vitamin D-3 Vitamin D-3 2020-09 No 2{capsu QD Vitamin 25 MCG 25 MCG 0-04 le} D-3 25 MCG (1000 UT) (1000 UT) 00:00: (1000 UT) 00 Fish Oil Fish Oil 2020-09 No 2{capsu QD Fish Oil 1000 MG 1000 MG 0-04 le} 1000 MG 00:00: 00 hydroCHLORO hydroCHLORO 0 No 1{table QD hydroCHLOR thiazide 25 thiazide 25 3-29 t_in_th Othiazide MG MG 00:00: e_morni 25 MG 00 ng} hydroCHLORO hydroCHLORO 2021-0 No 1{table QD hydroCHLOR thiazide 25 thiazide 25 3-29 t_in_th Othiazide MG MG 00:00: e_morni 25 MG 00 ng} hydroCHLORO hydroCHLORO 2021-0 No 1{table QD hydroCHLOR thiazide 25 thiazide 25 3-29 t_in_th Othiazide MG MG 00:00: e_morni 25 MG 00 ng} hydroCHLORO hydroCHLORO 2021-0 No 1{table QD hydroCHLOR thiazide 25 thiazide 25 3-29 t_in_th Othiazide MG MG 00:00: e_morni 25 MG 00 ng} hydroCHLORO hydroCHLORO 2021-0 No 1{table QD hydroCHLOR thiazide 25 thiazide 25 3-29 t_in_th Othiazide MG MG 00:00: e_morni 25 MG 00 ng} hydroCHLORO hydroCHLORO 2021-0 No 1{table QD hydroCHLOR thiazide 25 thiazide 25 3-29 t_in_th Othiazide MG MG 00:00: e_morni 25 MG 00 ng} hydroCHLORO hydroCHLORO 2021-0 No 1{table QD hydroCHLOR thiazide 25 thiazide 25 3-29 t_in_th Othiazide MG MG 00:00: e_morni 25 MG 00 ng} hydroCHLORO hydroCHLORO 2021-0 No 1{table QD hydroCHLOR thiazide 25 thiazide 25 3-29 t_in_th Othiazide MG MG 00:00: e_morni 25 MG 00 ng} hydroCHLORO hydroCHLORO 2021-0 No 1{table QD hydroCHLOR thiazide 25 thiazide 25 3-29 t_in_th Othiazide MG MG 00:00: e_morni 25 MG 00 ng} hydroCHLORO hydroCHLORO 2021-0 No 1{table QD hydroCHLOR thiazide 25 thiazide 25 3-29 t_in_th Othiazide MG MG 00:00: e_morni 25 MG 00 ng} hydroCHLORO hydroCHLORO 2021-0 No 1{table QD hydroCHLOR thiazide 25 thiazide 25 3-29 t_in_th Othiazide MG MG 00:00: e_morni 25 MG 00 ng} hydroCHLORO hydroCHLORO 2021-0 No 1{table QD hydroCHLOR thiazide 25 thiazide 25 3-29 t_in_th Othiazide MG MG 00:00: e_morni 25 MG 00 ng} hydroCHLORO hydroCHLORO 2021-0 No 1{table QD hydroCHLOR thiazide 25 thiazide 25 3-29 t_in_th Othiazide MG MG 00:00: e_morni 25 MG 00 ng} hydroCHLORO hydroCHLORO 2021-0 No 1{table QD hydroCHLOR thiazide 25 thiazide 25 3-29 t_in_th Othiazide MG MG 00:00: e_morni 25 MG 00 ng} hydroCHLORO hydroCHLORO 2021-0 No 1{table QD hydroCHLOR thiazide 25 thiazide 25 3-29 t_in_th Othiazide MG MG 00:00: e_morni 25 MG 00 ng} hydroCHLORO hydroCHLORO 2021-0 No 1{table QD hydroCHLOR thiazide 25 thiazide 25 3-29 t_in_th Othiazide MG MG 00:00: e_morni 25 MG 00 ng} hydroCHLORO hydroCHLORO 2021-0 No 1{table QD hydroCHLOR thiazide 25 thiazide 25 3-29 t_in_th Othiazide MG MG 00:00: e_morni 25 MG 00 ng} hydroCHLORO hydroCHLORO 2021-0 No 1{table QD hydroCHLOR thiazide 25 thiazide 25 3-29 t_in_th Othiazide MG MG 00:00: e_morni 25 MG 00 ng} hydroCHLORO hydroCHLORO 2021-0 No 1{table QD hydroCHLOR thiazide 25 thiazide 25 3-29 t_in_th Othiazide MG MG 00:00: e_morni 25 MG 00 ng} hydroCHLORO hydroCHLORO 2021-0 No 1{table QD hydroCHLOR thiazide 25 thiazide 25 3-29 t_in_th Othiazide MG MG 00:00: e_morni 25 MG 00 ng} hydroCHLORO hydroCHLORO 2021-0 No 1{table QD hydroCHLOR thiazide 25 thiazide 25 3-29 t_in_th Othiazide MG MG 00:00: e_morni 25 MG 00 ng} hydroCHLORO hydroCHLORO 2021-0 No 1{table QD hydroCHLOR thiazide 25 thiazide 25 3-29 t_in_th Othiazide MG MG 00:00: e_morni 25 MG 00 ng} hydroCHLORO hydroCHLORO 2021-0 No 1{table QD hydroCHLOR thiazide 25 thiazide 25 3-29 t_in_th Othiazide MG MG 00:00: e_morni 25 MG 00 ng} hydroCHLORO hydroCHLORO 2020-0 No 1{table QD hydroCHLOR thiazide 25 thiazide 25 3-29 t_in_th Othiazide MG MG 00:00: e_morni 25 MG 00 ng} hydroCHLORO hydroCHLORO 2020-0 No 1{table QD hydroCHLOR thiazide 25 thiazide 25 3-29 t_in_th Othiazide MG MG 00:00: e_morni 25 MG 00 ng} hydroCHLORO hydroCHLORO 2020-0 No 1{table QD hydroCHLOR thiazide 25 thiazide 25 3-29 t_in_th Othiazide MG MG 00:00: e_morni 25 MG 00 ng} hydroCHLORO hydroCHLORO 2020-0 No 1{table QD hydroCHLOR thiazide 25 thiazide 25 3-29 t_in_th Othiazide MG MG 00:00: e_morni 25 MG 00 ng} hydroCHLORO hydroCHLORO 2020-0 No 1{table QD hydroCHLOR thiazide 25 thiazide 25 3-29 t_in_th Othiazide MG MG 00:00: e_morni 25 MG 00 ng} hydroCHLORO hydroCHLORO 0 No 1{table QD hydroCHLOR thiazide 25 thiazide 25 3-29 t_in_th Othiazide MG MG 00:00: e_morni 25 MG 00 ng} Albuterol Albuterol 0 No 1{puff_ Albuterol Sulfate HFA Sulfate HFA 2-08 as_need Sulfate 108 (90 108 (90 00:00: ed} HFA 108 Base) Base) 00 (90 Base) MCG/ACT MCG/ACT MCG/ACT Albuterol Albuterol 0 No 1{puff_ Albuterol Sulfate HFA Sulfate HFA 2-08 as_need Sulfate 108 (90 108 (90 00:00: ed} HFA 108 Base) Base) 00 (90 Base) MCG/ACT MCG/ACT MCG/ACT Albuterol Albuterol 0 No 1{puff_ Albuterol Sulfate HFA Sulfate HFA 2-08 as_need Sulfate 108 (90 108 (90 00:00: ed} HFA 108 Base) Base) 00 (90 Base) MCG/ACT MCG/ACT MCG/ACT Albuterol Albuterol 0 No 1{puff_ Albuterol Sulfate HFA Sulfate HFA 2-08 as_need Sulfate 108 (90 108 (90 00:00: ed} HFA 108 Base) Base) 00 (90 Base) MCG/ACT MCG/ACT MCG/ACT Albuterol Albuterol 0 No 1{puff_ Albuterol Sulfate HFA Sulfate HFA 2-08 as_need Sulfate 108 (90 108 (90 00:00: ed} HFA 108 Base) Base) 00 (90 Base) MCG/ACT MCG/ACT MCG/ACT Albuterol Albuterol 2020-0 No 1{puff_ Albuterol Sulfate HFA Sulfate HFA 2-08 as_need Sulfate 108 (90 108 (90 00:00: ed} HFA 108 Base) Base) 00 (90 Base) MCG/ACT MCG/ACT MCG/ACT Albuterol Albuterol 0 No 1{puff_ Albuterol Sulfate HFA Sulfate HFA 2-08 as_need Sulfate 108 (90 108 (90 00:00: ed} HFA 108 Base) Base) 00 (90 Base) MCG/ACT MCG/ACT MCG/ACT Albuterol Albuterol 0 No 1{puff_ Albuterol Sulfate HFA Sulfate HFA 2-08 as_need Sulfate 108 (90 108 (90 00:00: ed} HFA 108 Base) Base) 00 (90 Base) MCG/ACT MCG/ACT MCG/ACT Albuterol Albuterol 2020-0 No 1{puff_ Albuterol Sulfate HFA Sulfate HFA 2-08 as_need Sulfate 108 (90 108 (90 00:00: ed} HFA 108 Base) Base) 00 (90 Base) MCG/ACT MCG/ACT MCG/ACT Albuterol Albuterol 2020-0 No 1{puff_ Albuterol Sulfate HFA Sulfate HFA 2-08 as_need Sulfate 108 (90 108 (90 00:00: ed} HFA 108 Base) Base) 00 (90 Base) MCG/ACT MCG/ACT MCG/ACT Albuterol Albuterol 2020-0 No 1{puff_ Albuterol Sulfate HFA Sulfate HFA 2-08 as_need Sulfate 108 (90 108 (90 00:00: ed} HFA 108 Base) Base) 00 (90 Base) MCG/ACT MCG/ACT MCG/ACT Albuterol Albuterol 2020-0 No 1{puff_ Albuterol Sulfate HFA Sulfate HFA 2-08 as_need Sulfate 108 (90 108 (90 00:00: ed} HFA 108 Base) Base) 00 (90 Base) MCG/ACT MCG/ACT MCG/ACT Albuterol Albuterol 2020-0 No 1{puff_ Albuterol Sulfate HFA Sulfate HFA 2-08 as_need Sulfate 108 (90 108 (90 00:00: ed} HFA 108 Base) Base) 00 (90 Base) MCG/ACT MCG/ACT MCG/ACT Albuterol Albuterol 2020-0 No 1{puff_ Albuterol Sulfate HFA Sulfate HFA 2-08 as_need Sulfate 108 (90 108 (90 00:00: ed} HFA 108 Base) Base) 00 (90 Base) MCG/ACT MCG/ACT MCG/ACT Albuterol Albuterol 2020-0 No 1{puff_ Albuterol Sulfate HFA Sulfate HFA 2-08 as_need Sulfate 108 (90 108 (90 00:00: ed} HFA 108 Base) Base) 00 (90 Base) MCG/ACT MCG/ACT MCG/ACT Albuterol Albuterol 2020-0 No 1{puff_ Albuterol Sulfate HFA Sulfate HFA 2-08 as_need Sulfate 108 (90 108 (90 00:00: ed} HFA 108 Base) Base) 00 (90 Base) MCG/ACT MCG/ACT MCG/ACT Albuterol Albuterol 2020-0 No 1{puff_ Albuterol Sulfate HFA Sulfate HFA 2-08 as_need Sulfate 108 (90 108 (90 00:00: ed} HFA 108 Base) Base) 00 (90 Base) MCG/ACT MCG/ACT MCG/ACT Albuterol Albuterol 2020-0 No 1{puff_ Albuterol Sulfate HFA Sulfate HFA 2-08 as_need Sulfate 108 (90 108 (90 00:00: ed} HFA 108 Base) Base) 00 (90 Base) MCG/ACT MCG/ACT MCG/ACT Albuterol Albuterol 2020-0 No 1{puff_ Albuterol Sulfate HFA Sulfate HFA 2-08 as_need Sulfate 108 (90 108 (90 00:00: ed} HFA 108 Base) Base) 00 (90 Base) MCG/ACT MCG/ACT MCG/ACT Albuterol Albuterol 2020-0 No 1{puff_ Albuterol Sulfate HFA Sulfate HFA 2-08 as_need Sulfate 108 (90 108 (90 00:00: ed} HFA 108 Base) Base) 00 (90 Base) MCG/ACT MCG/ACT MCG/ACT Albuterol Albuterol 2020-0 No 1{puff_ Albuterol Sulfate HFA Sulfate HFA 2-08 as_need Sulfate 108 (90 108 (90 00:00: ed} HFA 108 Base) Base) 00 (90 Base) MCG/ACT MCG/ACT MCG/ACT Albuterol Albuterol 2020-0 No 1{puff_ Albuterol Sulfate HFA Sulfate HFA 2-08 as_need Sulfate 108 (90 108 (90 00:00: ed} HFA 108 Base) Base) 00 (90 Base) MCG/ACT MCG/ACT MCG/ACT Albuterol Albuterol 2020-0 No 1{puff_ Albuterol Sulfate HFA Sulfate HFA 2-08 as_need Sulfate 108 (90 108 (90 00:00: ed} HFA 108 Base) Base) 00 (90 Base) MCG/ACT MCG/ACT MCG/ACT Albuterol Albuterol 2020-0 No 1{puff_ Albuterol Sulfate HFA Sulfate HFA 2-08 as_need Sulfate 108 (90 108 (90 00:00: ed} HFA 108 Base) Base) 00 (90 Base) MCG/ACT MCG/ACT MCG/ACT Albuterol Albuterol 2020-0 No 1{puff_ Albuterol Sulfate HFA Sulfate HFA 2-08 as_need Sulfate 108 (90 108 (90 00:00: ed} HFA 108 Base) Base) 00 (90 Base) MCG/ACT MCG/ACT MCG/ACT Albuterol Albuterol 2020-0 No 1{puff_ Albuterol Sulfate HFA Sulfate HFA 2-08 as_need Sulfate 108 (90 108 (90 00:00: ed} HFA 108 Base) Base) 00 (90 Base) MCG/ACT MCG/ACT MCG/ACT Albuterol Albuterol 2020-0 No 1{puff_ Albuterol Sulfate HFA Sulfate HFA 2-08 as_need Sulfate 108 (90 108 (90 00:00: ed} HFA 108 Base) Base) 00 (90 Base) MCG/ACT MCG/ACT MCG/ACT Albuterol Albuterol No 1{puff_ Albuterol Sulfate HFA Sulfate HFA 2-08 as_need Sulfate 108 (90 108 (90 00:00: ed} HFA 108 Base) Base) 00 (90 Base) MCG/ACT MCG/ACT MCG/ACT Albuterol Albuterol No 1{puff_ Albuterol Sulfate HFA Sulfate HFA 2-08 as_need Sulfate 108 (90 108 (90 00:00: ed} HFA 108 Base) Base) 00 (90 Base) MCG/ACT MCG/ACT MCG/ACT Accu-Chek Accu-Chek 2018-09 No Accu-Chek Tania Plus Tania Plus 0-03 Tania Plus - - 00:00: - 00 Accu-Chek Accu-Chek 2018- No Accu-Chek Tania Plus Tania Plus 0-03 Tania Plus - - 00:00: - 00 Accu-Chek Accu-Chek 2018- No Accu-Chek Tania Plus Tania Plus 0-03 Tania Plus - - 00:00: - 00 Accu-Chek Accu-Chek 2018-09 No Accu-Chek Tania Plus Tania Plus 0-03 Tania Plus - - 00:00: - 00 Accu-Chek Accu-Chek 2018- No Accu-Chek Tania Plus Tania Plus 0-03 Tania Plus - - 00:00: - 00 Accu-Chek Accu-Chek 2018- No Accu-Chek Tania Plus Tania Plus 0-03 Tania Plus - - 00:00: - 00 Accu-Chek Accu-Chek 2018- No Accu-Chek Tania Plus Tania Plus 0-03 Tania Plus - - 00:00: - 00 Accu-Chek Accu-Chek 2018- No Accu-Chek Tania Plus Tania Plus 0-03 Tania Plus - - 00:00: - 00 Accu-Chek Accu-Chek 2019-1 No Accu-Chek Tania Plus Tania Plus 0-03 Tania Plus - - 00:00: - 00 Accu-Chek Accu-Chek 2018-1 No Accu-Chek Tania Plus Tania Plus 0-03 Tania Plus - - 00:00: - 00 Accu-Chek Accu-Chek 2018-1 No Accu-Chek Tania Plus Tania Plus 0-03 Tania Plus - - 00:00: - 00 Accu-Chek Accu-Chek 2018-1 No Accu-Chek Tania Plus Tania Plus 0-03 Tania Plus - - 00:00: - 00 Accu-Chek Accu-Chek 2018-1 No Accu-Chek Tania Plus Tania Plus 0-03 Tania Plus - - 00:00: - 00 Accu-Chek Accu-Chek 2018-1 No Accu-Chek Tania Plus Tania Plus 0-03 Tania Plus - - 00:00: - 00 Accu-Chek Accu-Chek 2018-1 No Accu-Chek Tania Plus Tania Plus 0-03 Tania Plus - - 00:00: - 00 Accu-Chek Accu-Chek 2018-1 No Accu-Chek Tania Plus Tania Plus 0-03 Tania Plus - - 00:00: - 00 Accu-Chek Accu-Chek 2018-1 No Accu-Chek Tania Plus Tania Plus 0-03 Tania Plus - - 00:00: - 00 Accu-Chek Accu-Chek 2018-1 No Accu-Chek Tania Plus Tania Plus 0-03 Tania Plus - - 00:00: - 00 Accu-Chek Accu-Chek 2018-1 No Accu-Chek Tania Plus Tania Plus 0-03 Tania Plus - - 00:00: - 00 Accu-Chek Accu-Chek 2018-1 No Accu-Chek Tania Plus Tania Plus 0-03 Tania Plus - - 00:00: - 00 Accu-Chek Accu-Chek 2018-1 No Accu-Chek Tania Plus Tania Plus 0-03 Tania Plus - - 00:00: - 00 Accu-Chek Accu-Chek 2019- No Accu-Chek Tania Plus Tania Plus 0-03 Tania Plus - - 00:00: - 00 Accu-Chek Accu-Chek 2018-1 No Accu-Chek Tania Plus Tania Plus 0-03 Tania Plus - - 00:00: - 00 Accu-Chek Accu-Chek 2018- No Accu-Chek Tania Plus Tania Plus 0-03 Tania Plus - - 00:00: - 00 Accu-Chek Accu-Chek 2018- No Accu-Chek Tania Plus Tania Plus 0-03 Tania Plus - - 00:00: - 00 Accu-Chek Accu-Chek 2018- No Accu-Chek Tania Plus [place] Plus 0-03 Tania Plus - - 00:00: - 00 Accu-Chek Accu-Chek 2018- No Accu-Chek Tania Plus Tania Plus 0-03 Tania Plus - - 00:00: - 00 Accu-Chek Accu-Chek 2018- No Accu-Chek Tania Plus Tania Plus 0-03 Tania Plus - - 00:00: - 00 Accu-Chek Accu-Chek 2018- No Accu-Chek Tania Plus Tania Plus 0-03 Tania Plus - - 00:00: - 00 acetaminoph acetaminoph No acetaminop [place] [...] route. Tamsulosin Tamsulosin Yes [place] 1 capsule Common HCl HCl [facility] metFORMIN metFORMIN No metFORMIN HCl 500 MG HCl 500 MG HCl 500 MG Tamsulosin Tamsulosin No Tamsulosin HCl 0.4 MG HCl 0.4 MG HCl 0.4 MG Baby Baby No 1{table QD Baby Aspirin 81 Aspirin 81 t} Aspirin 81 mg mg mg Lovastatin Lovastatin No Lovastatin 20 MG 20 MG 20 MG Losartan Losartan No Losartan Potassium Potassium Potassium 100 MG 100 MG 100 MG Gabapentin Gabapentin No 1{capsu QD Gabapentin 300 MG 300 MG le} 300 MG Finasteride Finasteride No Finasterid 5 MG 5 MG e 5 MG Euthyrox 75 Euthyrox 75 No Euthyrox MCG MCG 75 MCG HYDROcodone HYDROcodone No HYDROcodon -Acetaminop -Acetaminop e-Acetamin hen 7.5-325 hen 7.5-325 ophen MG MG 7.5-325 MG Clopidogrel Clopidogrel No Clopidogre Bisulfate Bisulfate l 75 MG 75 MG Bisulfate 75 MG metFORMIN metFORMIN No metFORMIN HCl 500 MG HCl 500 MG HCl 500 MG Tamsulosin Tamsulosin No Tamsulosin HCl 0.4 MG HCl 0.4 MG HCl 0.4 MG Baby Baby No 1{table QD Baby Aspirin 81 Aspirin 81 t} Aspirin 81 mg mg mg Lovastatin Lovastatin No Lovastatin 20 MG 20 MG 20 MG Losartan Losartan No Losartan Potassium Potassium Potassium 100 MG 100 MG 100 MG Gabapentin Gabapentin No 1{capsu QD Gabapentin 300 MG 300 MG le} 300 MG Finasteride Finasteride No Finasterid 5 MG 5 MG e 5 MG Euthyrox 75 Euthyrox 75 No Euthyrox MCG MCG 75 MCG HYDROcodone HYDROcodone No HYDROcodon -Acetaminop -Acetaminop e-Acetamin hen 7.5-325 hen 7.5-325 ophen MG MG 7.5-325 MG Clopidogrel Clopidogrel No Clopidogre Bisulfate Bisulfate l 75 MG 75 MG Bisulfate 75 MG metFORMIN metFORMIN No metFORMIN HCl 500 MG HCl 500 MG HCl 500 MG Tamsulosin Tamsulosin No Tamsulosin HCl 0.4 MG HCl 0.4 MG HCl 0.4 MG Baby Baby No 1{table QD Baby Aspirin 81 Aspirin 81 t} Aspirin 81 mg mg mg Lovastatin Lovastatin No Lovastatin 20 MG 20 MG 20 MG Losartan Losartan No Losartan Potassium Potassium Potassium 100 MG 100 MG 100 MG Gabapentin Gabapentin No 1{capsu QD Gabapentin 300 MG 300 MG le} 300 MG Finasteride Finasteride No Finasterid 5 MG 5 MG e 5 MG Euthyrox 75 Euthyrox 75 No Euthyrox MCG MCG 75 MCG HYDROcodone HYDROcodone No HYDROcodon -Acetaminop -Acetaminop e-Acetamin hen 7.5-325 hen 7.5-325 ophen MG MG 7.5-325 MG Clopidogrel Clopidogrel No Clopidogre Bisulfate Bisulfate l 75 MG 75 MG Bisulfate 75 MG Baby Baby No 1{table QD Baby Aspirin 81 Aspirin 81 t} Aspirin 81 mg mg mg Levothyroxi Levothyroxi No QD Levothyrox ne Sodium ne Sodium ine Sodium 75 MCG 75 MCG 75 MCG Finasteride Finasteride No 1{table QD Finasterid 5 MG 5 MG t} e 5 MG metFORMIN metFORMIN No metFORMIN HCl 500 MG HCl 500 MG HCl 500 MG Lovastatin Lovastatin No QD Lovastatin 20 MG 20 MG 20 MG Tamsulosin Tamsulosin No Tamsulosin HCl 0.4 MG HCl 0.4 MG HCl 0.4 MG Clopidogrel Clopidogrel No 1{table QD Clopidogre Bisulfate Bisulfate t} l 75 MG 75 MG Bisulfate 75 MG Losartan Losartan No 1{table QD Losartan Potassium Potassium t} Potassium 100 MG 100 MG 100 MG metFORMIN metFORMIN No metFORMIN HCl 500 MG HCl 500 MG HCl 500 MG Baby Baby No 1{table QD Baby Aspirin 81 Aspirin 81 t} Aspirin 81 mg mg mg Clopidogrel Clopidogrel No 1{table QD Clopidogre Bisulfate Bisulfate t} l 75 MG 75 MG Bisulfate 75 MG Tamsulosin Tamsulosin No Tamsulosin HCl 0.4 MG HCl 0.4 MG HCl 0.4 MG Losartan Losartan No 1{table QD Losartan Potassium Potassium t} Potassium 100 MG 100 MG 100 MG Finasteride Finasteride No 1{table QD Finasterid 5 MG 5 MG t} e 5 MG Lovastatin Lovastatin No QD Lovastatin 20 MG 20 MG 20 MG Levothyroxi Levothyroxi No QD Levothyrox ne Sodium ne Sodium ine Sodium 75 MCG 75 MCG 75 MCG metFORMIN metFORMIN No metFORMIN HCl 500 MG HCl 500 MG HCl 500 MG Baby Baby No 1{table QD Baby Aspirin 81 Aspirin 81 t} Aspirin 81 mg mg mg Tamsulosin Tamsulosin No Tamsulosin HCl 0.4 MG HCl 0.4 MG HCl 0.4 MG Losartan Losartan No 1{table QD Losartan Potassium Potassium t} Potassium 100 MG 100 MG 100 MG Levothyroxi Levothyroxi No QD Levothyrox ne Sodium ne Sodium ine Sodium 75 MCG 75 MCG 75 MCG Lovastatin Lovastatin No QD Lovastatin 20 MG 20 MG 20 MG Finasteride Finasteride No Finasterid 5 MG 5 MG e 5 MG Clopidogrel Clopidogrel No 1{table QD Clopidogre Bisulfate Bisulfate t} l 75 MG 75 MG Bisulfate 75 MG metFORMIN metFORMIN No metFORMIN HCl 500 MG HCl 500 MG HCl 500 MG Baby Baby No 1{table QD Baby Aspirin 81 Aspirin 81 t} Aspirin 81 mg mg mg Tamsulosin Tamsulosin No Tamsulosin HCl 0.4 MG HCl 0.4 MG HCl 0.4 MG Losartan Losartan No 1{table QD Losartan Potassium Potassium t} Potassium 100 MG 100 MG 100 MG Levothyroxi Levothyroxi No QD Levothyrox ne Sodium ne Sodium ine Sodium 75 MCG 75 MCG 75 MCG Lovastatin Lovastatin No QD Lovastatin 20 MG 20 MG 20 MG Finasteride Finasteride No Finasterid 5 MG 5 MG e 5 MG Clopidogrel Clopidogrel No 1{table QD Clopidogre Bisulfate Bisulfate t} l 75 MG 75 MG Bisulfate 75 MG metFORMIN metFORMIN No metFORMIN HCl 500 MG HCl 500 MG HCl 500 MG Baby Baby No 1{table QD Baby Aspirin 81 Aspirin 81 t} Aspirin 81 mg mg mg Tamsulosin Tamsulosin No Tamsulosin HCl 0.4 MG HCl 0.4 MG HCl 0.4 MG Losartan Losartan No 1{table QD Losartan Potassium Potassium t} Potassium 100 MG 100 MG 100 MG Levothyroxi Levothyroxi No QD Levothyrox ne Sodium ne Sodium ine Sodium 75 MCG 75 MCG 75 MCG Lovastatin Lovastatin No QD Lovastatin 20 MG 20 MG 20 MG Finasteride Finasteride No Finasterid 5 MG 5 MG e 5 MG Clopidogrel Clopidogrel No 1{table QD Clopidogre Bisulfate Bisulfate t} l 75 MG 75 MG Bisulfate 75 MG metFORMIN metFORMIN No metFORMIN HCl 500 MG HCl 500 MG HCl 500 MG Baby Baby No 1{table QD Baby Aspirin 81 Aspirin 81 t} Aspirin 81 mg mg mg Tamsulosin Tamsulosin No Tamsulosin HCl 0.4 MG HCl 0.4 MG HCl 0.4 MG Losartan Losartan No 1{table QD Losartan Potassium Potassium t} Potassium 100 MG 100 MG 100 MG Levothyroxi Levothyroxi No QD Levothyrox ne Sodium ne Sodium ine Sodium 75 MCG 75 MCG 75 MCG Lovastatin Lovastatin No QD Lovastatin 20 MG 20 MG 20 MG Finasteride Finasteride No Finasterid 5 MG 5 MG e 5 MG Clopidogrel Clopidogrel No 1{table QD Clopidogre Bisulfate Bisulfate t} l 75 MG 75 MG Bisulfate 75 MG Losartan Losartan No 1{table QD Losartan Potassium Potassium t} Potassium 100 MG 100 MG 100 MG Baby Baby No 1{table QD Baby Aspirin 81 Aspirin 81 t} Aspirin 81 mg mg mg Finasteride Finasteride No Finasterid 5 MG 5 MG e 5 MG Tamsulosin Tamsulosin No Tamsulosin HCl 0.4 MG HCl 0.4 MG HCl 0.4 MG Clopidogrel Clopidogrel No 1{table QD Clopidogre Bisulfate Bisulfate t} l 75 MG 75 MG Bisulfate 75 MG metFORMIN metFORMIN No metFORMIN HCl 500 MG HCl 500 MG HCl 500 MG Levothyroxi Levothyroxi No QD Levothyrox ne Sodium ne Sodium ine Sodium 75 MCG 75 MCG 75 MCG Lovastatin Lovastatin No QD Lovastatin 20 MG 20 MG 20 MG Losartan Losartan No 1{table QD Losartan Potassium Potassium t} Potassium 100 MG 100 MG 100 MG metFORMIN metFORMIN No metFORMIN HCl 500 MG HCl 500 MG HCl 500 MG Baby Baby No 1{table QD Baby Aspirin 81 Aspirin 81 t} Aspirin 81 mg mg mg Finasteride Finasteride No Finasterid 5 MG 5 MG e 5 MG Tamsulosin Tamsulosin No Tamsulosin HCl 0.4 MG HCl 0.4 MG HCl 0.4 MG Lovastatin Lovastatin No QD Lovastatin 20 MG 20 MG 20 MG Levothyroxi Levothyroxi No QD Levothyrox ne Sodium ne Sodium ine Sodium 75 MCG 75 MCG 75 MCG Clopidogrel Clopidogrel No 1{table QD Clopidogre Bisulfate Bisulfate t} l 75 MG 75 MG Bisulfate 75 MG Baby Baby No 1{table QD Baby Aspirin 81 Aspirin 81 t} Aspirin 81 mg mg mg metFORMIN metFORMIN No metFORMIN HCl 500 MG HCl 500 MG HCl 500 MG Finasteride Finasteride No Finasterid 5 MG 5 MG e 5 MG Clopidogrel Clopidogrel No 1{table QD Clopidogre Bisulfate Bisulfate t} l 75 MG 75 MG Bisulfate 75 MG Tamsulosin Tamsulosin No Tamsulosin HCl 0.4 MG HCl 0.4 MG HCl 0.4 MG Losartan Losartan No Losartan Potassium Potassium Potassium 100 MG 100 MG 100 MG Levothyroxi Levothyroxi No QD Levothyrox ne Sodium ne Sodium ine Sodium 75 MCG 75 MCG 75 MCG Gabapentin Gabapentin No 1{capsu QD Gabapentin 300 MG 300 MG le} 300 MG Lovastatin Lovastatin No QD Lovastatin 20 MG 20 MG 20 MG Baby Baby No 1{table QD Baby Aspirin 81 Aspirin 81 t} Aspirin 81 mg mg mg metFORMIN metFORMIN No metFORMIN HCl 500 MG HCl 500 MG HCl 500 MG Finasteride Finasteride No Finasterid 5 MG 5 MG e 5 MG Clopidogrel Clopidogrel No 1{table QD Clopidogre Bisulfate Bisulfate t} l 75 MG 75 MG Bisulfate 75 MG Tamsulosin Tamsulosin No Tamsulosin HCl 0.4 MG HCl 0.4 MG HCl 0.4 MG Losartan Losartan No Losartan Potassium Potassium Potassium 100 MG 100 MG 100 MG Lovastatin Lovastatin No QD Lovastatin 20 MG 20 MG 20 MG Gabapentin Gabapentin No 1{capsu QD Gabapentin 300 MG 300 MG le} 300 MG Levothyroxi Levothyroxi No QD Levothyrox ne Sodium ne Sodium ine Sodium 75 MCG 75 MCG 75 MCG Tamsulosin Tamsulosin No QD Tamsulosin HCl 0.4 MG HCl 0.4 MG HCl 0.4 MG Baby Baby No 1{table QD Baby Aspirin 81 Aspirin 81 t} Aspirin 81 mg mg mg metFORMIN metFORMIN No metFORMIN HCl 500 MG HCl 500 MG HCl 500 MG Finasteride Finasteride No Finasterid 5 MG 5 MG e 5 MG Clopidogrel Clopidogrel No 1{table QD Clopidogre Bisulfate Bisulfate t} l 75 MG 75 MG Bisulfate 75 MG Losartan Losartan No Losartan Potassium Potassium Potassium 100 MG 100 MG 100 MG Levothyroxi Levothyroxi No QD Levothyrox ne Sodium ne Sodium ine Sodium 75 MCG 75 MCG 75 MCG Gabapentin Gabapentin No 1{capsu QD Gabapentin 300 MG 300 MG le} 300 MG Lovastatin Lovastatin No QD Lovastatin 20 MG 20 MG 20 MG Tamsulosin Tamsulosin No QD Tamsulosin HCl 0.4 MG HCl 0.4 MG HCl 0.4 MG Baby Baby No 1{table QD Baby Aspirin 81 Aspirin 81 t} Aspirin 81 mg mg mg metFORMIN metFORMIN No metFORMIN HCl 500 MG HCl 500 MG HCl 500 MG Finasteride Finasteride No Finasterid 5 MG 5 MG e 5 MG Clopidogrel Clopidogrel No 1{table QD Clopidogre Bisulfate Bisulfate t} l 75 MG 75 MG Bisulfate 75 MG Losartan Losartan No Losartan Potassium Potassium Potassium 100 MG 100 MG 100 MG Levothyroxi Levothyroxi No QD Levothyrox ne Sodium ne Sodium ine Sodium 75 MCG 75 MCG 75 MCG Gabapentin Gabapentin No 1{capsu QD Gabapentin 300 MG 300 MG le} 300 MG Lovastatin Lovastatin No QD Lovastatin 20 MG 20 MG 20 MG Tamsulosin Tamsulosin No QD Tamsulosin HCl 0.4 MG HCl 0.4 MG HCl 0.4 MG Baby Baby No 1{table QD Baby Aspirin 81 Aspirin 81 t} Aspirin 81 mg mg mg Lovastatin Lovastatin No QD Lovastatin 20 MG 20 MG 20 MG Gabapentin Gabapentin No 1{capsu QD Gabapentin 300 MG 300 MG le} 300 MG metFORMIN metFORMIN No metFORMIN HCl 500 MG HCl 500 MG HCl 500 MG Finasteride Finasteride No QD Finasterid 5 MG 5 MG e 5 MG Losartan Losartan No Losartan Potassium Potassium Potassium 100 MG 100 MG 100 MG Levothyroxi Levothyroxi No QD Levothyrox ne Sodium ne Sodium ine Sodium 75 MCG 75 MCG 75 MCG Clopidogrel Clopidogrel No 1{table QD Clopidogre Bisulfate Bisulfate t} l 75 MG 75 MG Bisulfate 75 MG Baby Baby No 1{table QD Baby Aspirin 81 Aspirin 81 t} Aspirin 81 mg mg mg Lovastatin Lovastatin No QD Lovastatin 20 MG 20 MG 20 MG Gabapentin Gabapentin No 1{capsu QD Gabapentin 300 MG 300 MG le} 300 MG Tamsulosin Tamsulosin No QD Tamsulosin HCl 0.4 MG HCl 0.4 MG HCl 0.4 MG metFORMIN metFORMIN No metFORMIN HCl 500 MG HCl 500 MG HCl 500 MG Finasteride Finasteride No QD Finasterid 5 MG 5 MG e 5 MG Levothyroxi Levothyroxi No QD Levothyrox ne Sodium ne Sodium ine Sodium 75 MCG 75 MCG 75 MCG Losartan Losartan No Losartan Potassium Potassium Potassium 100 MG 100 MG 100 MG Clopidogrel Clopidogrel No 1{table QD Clopidogre Bisulfate Bisulfate t} l 75 MG 75 MG Bisulfate 75 MG Losartan Losartan No QD Losartan Potassium Potassium Potassium 100 MG 100 MG 100 MG Baby Baby No 1{table QD Baby Aspirin 81 Aspirin 81 t} Aspirin 81 mg mg mg Lovastatin Lovastatin No QD Lovastatin 20 MG 20 MG 20 MG Finasteride Finasteride No QD Finasterid 5 MG 5 MG e 5 MG Gabapentin Gabapentin No 1{capsu QD Gabapentin 300 MG 300 MG le} 300 MG metFORMIN metFORMIN No metFORMIN HCl 500 MG HCl 500 MG HCl 500 MG Clopidogrel Clopidogrel No 1{table QD Clopidogre Bisulfate Bisulfate t} l 75 MG 75 MG Bisulfate 75 MG Levothyroxi Levothyroxi No QD Levothyrox ne Sodium ne Sodium ine Sodium 75 MCG 75 MCG 75 MCG Tamsulosin Tamsulosin No Tamsulosin HCl 0.4 MG HCl 0.4 MG HCl 0.4 MG Lovastatin Lovastatin No Lovastatin 20 MG 20 MG 20 MG Tamsulosin Tamsulosin No Tamsulosin HCl 0.4 MG HCl 0.4 MG HCl 0.4 MG Finasteride Finasteride No QD Finasterid 5 MG 5 MG e 5 MG Losartan Losartan No QD Losartan Potassium Potassium Potassium 100 MG 100 MG 100 MG Gabapentin Gabapentin No 1{capsu QD Gabapentin 300 MG 300 MG le} 300 MG Clopidogrel Clopidogrel No 1{table QD Clopidogre Bisulfate Bisulfate t} l 75 MG 75 MG Bisulfate 75 MG Levothyroxi Levothyroxi No Levothyrox ne Sodium ne Sodium ine Sodium 75 MCG 75 MCG 75 MCG Baby Baby No 1{table QD Baby Aspirin 81 Aspirin 81 t} Aspirin 81 mg mg mg metFORMIN metFORMIN No metFORMIN HCl 500 MG HCl 500 MG HCl 500 MG Losartan Losartan No QD Losartan Potassium Potassium Potassium 100 MG 100 MG 100 MG Baby Baby No 1{table QD Baby Aspirin 81 Aspirin 81 t} Aspirin 81 mg mg mg Tamsulosin Tamsulosin No Tamsulosin HCl 0.4 MG HCl 0.4 MG HCl 0.4 MG Clopidogrel Clopidogrel No 1{table QD Clopidogre Bisulfate Bisulfate t} l 75 MG 75 MG Bisulfate 75 MG Finasteride Finasteride No QD Finasterid 5 MG 5 MG e 5 MG Levothyroxi Levothyroxi No Levothyrox ne Sodium ne Sodium ine Sodium 75 MCG 75 MCG 75 MCG metFORMIN metFORMIN No metFORMIN HCl 500 MG HCl 500 MG HCl 500 MG Lovastatin Lovastatin No Lovastatin 20 MG 20 MG 20 MG Gabapentin Gabapentin No 1{capsu QD Gabapentin 300 MG 300 MG le} 300 MG Tamsulosin Tamsulosin No Tamsulosin HCl 0.4 MG HCl 0.4 MG HCl 0.4 MG Levothyroxi Levothyroxi No Levothyrox ne Sodium ne Sodium ine Sodium 75 MCG 75 MCG 75 MCG Clopidogrel Clopidogrel No 1{table QD Clopidogre Bisulfate Bisulfate t} l 75 MG 75 MG Bisulfate 75 MG Finasteride Finasteride No QD Finasterid 5 MG 5 MG e 5 MG Gabapentin Gabapentin No 1{capsu QD Gabapentin 300 MG 300 MG le} 300 MG Baby Baby No 1{table QD Baby Aspirin 81 Aspirin 81 t} Aspirin 81 mg mg mg metFORMIN metFORMIN No metFORMIN HCl 500 MG HCl 500 MG HCl 500 MG Lovastatin Lovastatin No Lovastatin 20 MG 20 MG 20 MG Losartan Losartan No QD Losartan Potassium Potassium Potassium 100 MG 100 MG 100 MG Baby Baby No 1{table QD Baby Aspirin 81 Aspirin 81 t} Aspirin 81 mg mg mg Clopidogrel Clopidogrel No 1{table QD Clopidogre Bisulfate Bisulfate t} l 75 MG 75 MG Bisulfate 75 MG metFORMIN metFORMIN No metFORMIN HCl 500 MG HCl 500 MG HCl 500 MG Levothyroxi Levothyroxi No Levothyrox ne Sodium ne Sodium ine Sodium 75 MCG 75 MCG 75 MCG Gabapentin Gabapentin No 1{capsu QD Gabapentin 300 MG 300 MG le} 300 MG Tamsulosin Tamsulosin No Tamsulosin HCl 0.4 MG HCl 0.4 MG HCl 0.4 MG Lovastatin Lovastatin No Lovastatin 20 MG 20 MG 20 MG Finasteride Finasteride No QD Finasterid 5 MG 5 MG e 5 MG Losartan Losartan No QD Losartan Potassium Potassium Potassium 100 MG 100 MG 100 MG Tamsulosin Tamsulosin No Tamsulosin HCl 0.4 MG HCl 0.4 MG HCl 0.4 MG Clopidogrel Clopidogrel No 1{table QD Clopidogre Bisulfate Bisulfate t} l 75 MG 75 MG Bisulfate 75 MG metFORMIN metFORMIN No metFORMIN HCl 500 MG HCl 500 MG HCl 500 MG Baby Baby No 1{table QD Baby Aspirin 81 Aspirin 81 t} Aspirin 81 mg mg mg Gabapentin Gabapentin No 1{capsu QD Gabapentin 300 MG 300 MG le} 300 MG Lovastatin Lovastatin No Lovastatin 20 MG 20 MG 20 MG Finasteride Finasteride No QD Finasterid 5 MG 5 MG e 5 MG Levothyroxi Levothyroxi No Levothyrox ne Sodium ne Sodium ine Sodium 75 MCG 75 MCG 75 MCG Losartan Losartan No Losartan Potassium Potassium Potassium 100 MG 100 MG 100 MG Gabapentin Gabapentin No 1{capsu QD Gabapentin 300 MG 300 MG le} 300 MG Clopidogrel Clopidogrel No Clopidogre Bisulfate Bisulfate l 75 MG 75 MG Bisulfate 75 MG HYDROcodone HYDROcodone No HYDROcodon -Acetaminop -Acetaminop e-Acetamin hen 7.5-325 hen 7.5-325 ophen MG MG 7.5-325 MG Lovastatin Lovastatin No Lovastatin 20 MG 20 MG 20 MG Losartan Losartan No Losartan Potassium Potassium Potassium 100 MG 100 MG 100 MG Baby Baby No 1{table QD Baby Aspirin 81 Aspirin 81 t} Aspirin 81 mg mg mg Euthyrox 75 Euthyrox 75 No Euthyrox MCG MCG 75 MCG metFORMIN metFORMIN No metFORMIN HCl 500 MG HCl 500 MG HCl 500 MG Tamsulosin Tamsulosin No Tamsulosin HCl 0.4 MG HCl 0.4 MG HCl 0.4 MG Finasteride Finasteride No Finasterid 5 MG 5 MG e 5 MG metFORMIN metFORMIN No metFORMIN HCl 500 MG HCl 500 MG HCl 500 MG Tamsulosin Tamsulosin No Tamsulosin HCl 0.4 MG HCl 0.4 MG HCl 0.4 MG Baby Baby No 1{table QD Baby Aspirin 81 Aspirin 81 t} Aspirin 81 mg mg mg Lovastatin Lovastatin No Lovastatin 20 MG 20 MG 20 MG Losartan Losartan No Losartan Potassium Potassium Potassium 100 MG 100 MG 100 MG Gabapentin Gabapentin No 1{capsu QD Gabapentin 300 MG 300 MG le} 300 MG Finasteride Finasteride No Finasterid 5 MG 5 MG e 5 MG Euthyrox 75 Euthyrox 75 No Euthyrox MCG MCG 75 MCG HYDROcodone HYDROcodone No HYDROcodon -Acetaminop -Acetaminop e-Acetamin hen 7.5-325 hen 7.5-325 ophen MG MG 7.5-325 MG Clopidogrel Clopidogrel No Clopidogre Bisulfate Bisulfate l 75 MG 75 MG Bisulfate 75 MG metFORMIN metFORMIN No metFORMIN HCl 500 MG HCl 500 MG HCl 500 MG Tamsulosin Tamsulosin No Tamsulosin HCl 0.4 MG HCl 0.4 MG HCl 0.4 MG Baby Baby No 1{table QD Baby Aspirin 81 Aspirin 81 t} Aspirin 81 mg mg mg Lovastatin Lovastatin No Lovastatin 20 MG 20 MG 20 MG Losartan Losartan No Losartan Potassium Potassium Potassium 100 MG 100 MG 100 MG Gabapentin Gabapentin No 1{capsu QD Gabapentin 300 MG 300 MG le} 300 MG Finasteride Finasteride No Finasterid 5 MG 5 MG e 5 MG Euthyrox 75 Euthyrox 75 No Euthyrox MCG MCG 75 MCG HYDROcodone HYDROcodone No HYDROcodon -Acetaminop -Acetaminop e-Acetamin hen 7.5-325 hen 7.5-325 ophen MG MG 7.5-325 MG Clopidogrel Clopidogrel No Clopidogre Bisulfate Bisulfate l 75 MG 75 MG Bisulfate 75 MG metFORMIN metFORMIN No metFORMIN HCl 500 MG HCl 500 MG HCl 500 MG Tamsulosin Tamsulosin No Tamsulosin HCl 0.4 MG HCl 0.4 MG HCl 0.4 MG Baby Baby No 1{table QD Baby Aspirin 81 Aspirin 81 t} Aspirin 81 mg mg mg Lovastatin Lovastatin No Lovastatin 20 MG 20 MG 20 MG Losartan Losartan No Losartan Potassium Potassium Potassium 100 MG 100 MG 100 MG Gabapentin Gabapentin No 1{capsu QD Gabapentin 300 MG 300 MG le} 300 MG Finasteride Finasteride No Finasterid 5 MG 5 MG e 5 MG Euthyrox 75 Euthyrox 75 No Euthyrox MCG MCG 75 MCG HYDROcodone HYDROcodone No HYDROcodon -Acetaminop -Acetaminop e-Acetamin hen 7.5-325 hen 7.5-325 ophen MG MG 7.5-325 MG Clopidogrel Clopidogrel No Clopidogre Bisulfate Bisulfate l 75 MG 75 MG Bisulfate 75 MG Levothyroxi Levothyroxi No Levothyrox ne Sodium ne Sodium ine Sodium 75 MCG 75 MCG 75 MCG Tamsulosin Tamsulosin No Tamsulosin HCl 0.4 MG HCl 0.4 MG HCl 0.4 MG HYDROcodone HYDROcodone No HYDROcodon -Acetaminop -Acetaminop e-Acetamin hen 7.5-325 hen 7.5-325 ophen MG MG 7.5-325 MG Lovastatin Lovastatin No Lovastatin 20 MG 20 MG 20 MG Losartan Losartan No Losartan Potassium Potassium Potassium 100 MG 100 MG 100 MG Baby Baby No 1{table QD Baby Aspirin 81 Aspirin 81 t} Aspirin 81 mg mg mg Clopidogrel Clopidogrel No Clopidogre Bisulfate Bisulfate l 75 MG 75 MG Bisulfate 75 MG Gabapentin Gabapentin No 1{capsu QD Gabapentin 300 MG 300 MG le} 300 MG metFORMIN metFORMIN No metFORMIN HCl 500 MG HCl 500 MG HCl 500 MG Finasteride Finasteride No Finasterid 5 MG 5 MG e 5 MG Folic Acid Folic Acid No Folic Acid 1 MG 1 MG 1 MG Losartan Losartan No Losartan Potassium Potassium Potassium 100 MG 100 MG 100 MG Clopidogrel Clopidogrel No Clopidogre Bisulfate Bisulfate l 75 MG 75 MG Bisulfate 75 MG Finasteride Finasteride No Finasterid 5 MG 5 MG e 5 MG Lovastatin Lovastatin No Lovastatin 20 MG 20 MG 20 MG Tamsulosin Tamsulosin No Tamsulosin HCl 0.4 MG HCl 0.4 MG HCl 0.4 MG Levothyroxi Levothyroxi No Levothyrox ne Sodium ne Sodium ine Sodium 75 MCG 75 MCG 75 MCG Gabapentin Gabapentin No 1{capsu QD Gabapentin 300 MG 300 MG le} 300 MG metFORMIN metFORMIN No metFORMIN HCl 500 MG HCl 500 MG HCl 500 MG HYDROcodone HYDROcodone No HYDROcodon -Acetaminop -Acetaminop e-Acetamin hen 7.5-325 hen 7.5-325 ophen MG MG 7.5-325 MG Baby Baby No 1{table QD Baby Aspirin 81 Aspirin 81 t} Aspirin 81 mg mg mg Vital Signs Vital Name Observation Time Observation Value Comments Source Systolic blood 2022-08-13 17:39:00 151 mm[Hg] Univer sity [facility] Diastolic blood 2022-08-13 17:39:00 94 [facility]Hg[facility]-13 17:39:00 82 /min [facility] Body temperature 2022-08-13 17:39:00 36.33 Annmarie [facility] Respiratory rate 2022-08-13 17:39:00 18 /min [facility] Oxygen saturation in 2022-08-13 17:39:00 96 /min [facility] Arterial blood by [facility] Pulse oximetry Branch Body weight 2022-08-13 09:43:00 89.994 kg [facility] BMI 2022-08-13 09:43:00 29.30 kg/m2 [facility] Body height 2022-08-13 01:42:00 175.3 cm [facility] height 2022-06-19 11:00:00 69.5 [in_i] [facility] weight 2022-06-19 11:00:00 212 [lb_av] [facility] temperature 2022-06-19 11:00:00 98.6 [degF] Common S pirit [facility] bmi 2022-06-19 11:00:00 30.85 kg/m2 Common [facility] oximetry 2022-06-19 11:00:00 96 % Common [facility] respiratory rate 2022-06-19 11:00:00 17 /min Comm on [facility] blood pressure 2022-06-19 11:00:00 134 mm[Hg] Common [facility] - systolic [facility] blood pressure 2022-06-19 11:00:00 80 mm[Hg] [facility] height 2022-06-19 10:40:00 69.5 [in_i] Common [facility] weight 2022-06-19 10:40:00 212 [lb_av] [facility] temperature 2022-06-19 10:40:00 98.6 [degF] Common [facility] bmi 2022-06-19 10:40:00 30.85 kg/m2 [facility] oximetry 2022-06-19 10:40:00 96 % [facility] respiratory rate 2022-06-19 10:40:00 17 /min Comm on [facility] blood pressure 2022-06-19 10:40:00 134 mm[Hg] Common [facility] - systolic [facility] blood pressure 2022-06-19 10:40:00 80 mm[Hg] [facility] height 2022-06-15 11:20:00 69.5 [in_i] Common [facility] weight 2022-06-15 11:20:00 212 [lb_av] Common [facility] temperature 2022-06-15 11:20:00 98.2 [degF] Common [facility] bmi 2022-06-15 11:20:00 30.85 kg/m2 Common [facility] oximetry 2022-06-15 11:20:00 97 % Common [facility] respiratory rate 2022-06-15 11:20:00 16 /min Comm on [facility] blood pressure 2022-06-15 11:20:00 134 mm[Hg] Common [facility] - systolic [facility] blood pressure 2022-06-15 11:20:00 76 mm[Hg] Common [facility] - diastolic [facility] Body height 2022-05-19 13:09:00 175.3 cm [facility] Body weight 2022-05-19 13:09:00 95.255 kg [facility] BMI 2022-05-19 13:09:00 31.01 kg/m2 [facility] height 2022-02-04 09:20:00 69.5 [in_i] Common [facility] weight 2022-02-04 09:20:00 211.8 [lb_av] [facility] temperature 2022-02-04 09:20:00 97.5 [degF] Common [facility] bmi 2022-02-04 09:20:00 30.83 kg/m2 [facility] oximetry 2022-02-04 09:20:00 95 % Common [facility] respiratory rate 2022-02-04 09:20:00 16 /min Comm on [facility] blood pressure 2022-02-04 09:20:00 134 mm[Hg] Common [facility] - systolic [facility] blood pressure 2022-02-04 09:20:00 78 mm[Hg] Common [facility] - diastolic [facility] height 2022-01-05 14:40:00 69.5 [in_i] Common [facility] weight 2022-01-05 14:40:00 210.4 [lb_av] [facility] temperature 2022-01-05 14:40:00 98.1 [degF] [facility] bmi 2022-01-05 14:40:00 30.62 kg/m2 Common [facility] oximetry 2022-01-05 14:40:00 97 % [facility] respiratory rate 2022-01-05 14:40:00 16 /min Comm on [facility] blood pressure 2022-01-05 14:40:00 138 mm[Hg] Common [facility] - systolic [facility] blood pressure 2022-01-05 14:40:00 74 mm[Hg] Common [facility] - diastolic [facility] blood pressure 2021-12-22 08:40:00 78 mm[Hg] Common [facility] - diastolic [facility] height 2021-12-22 08:40:00 69.5 [in_i] Common [facility] weight 2021-12-22 08:40:00 216.8 [lb_av] [facility] temperature 2021-12-22 08:40:00 97.5 [degF] [facility] bmi 2021-12-22 08:40:00 31.55 kg/m2 [facility] oximetry 2021-12-22 08:40:00 97 % Common [facility] respiratory rate 2021-12-22 08:40:00 16 /min Comm on [facility] blood pressure 2021-12-22 08:40:00 136 mm[Hg] Common [facility] systolic [facility] height 2021-08-26 16:00:00 69.5 [in_i] Common [facility] weight 2021-08-26 16:00:00 213.2 [lb_av] [facility] temperature 2021-08-26 16:00:00 98.3 [degF] [facility] bmi 2021-08-26 16:00:00 31.03 kg/m2 [facility] oximetry 2021-08-26 16:00:00 97 % Common [facility] respiratory rate 2021-08-26 16:00:00 16 /min Comm on [facility] blood pressure 2021-08-26 16:00:00 130 mm[Hg] Common [facility] - systolic [facility] blood pressure 2021-08-26 16:00:00 72 mm[Hg] [facility] diastolic [facility] height 2021-06-24 08:00:00 69.5 [in_i] [facility] weight 2021-06-24 08:00:00 221.8 [lb_av] [facility] temperature 2021-06-24 08:00:00 99.0 [degF] [facility] bmi 2021-06-24 08:00:00 32.28 kg/m2 [facility] oximetry 2021-06-24 08:00:00 97 % [facility] respiratory rate 2021-06-24 08:00:00 16 /min Comm on [facility] blood pressure 2021-06-24 08:00:00 138 mm[Hg] [facility] systolic [facility] blood pressure 2021-06-24 08:00:00 88 mm[Hg] [facility] diastolic [facility] Procedures Procedure Date / Time Performing Clinician Source Performed TRANSTHORACIC ECHO (TTE) 2022-08-13 20:02:00 Andre David [facility] COMPLETE W/ CONTRAST [facility] POCT GLUCOSE (AUTOMATED) 2022-08-13 17:40:00 Alxeandre Montemayor [facility] POCT GLUCOSE (AUTOMATED) 2022-08-13 13:32:00 Alexandre Montemayor [facility] MAGNESIUM 2022-08-13 09:50:00 Alexandre Montemayor [facility] BASIC METABOLIC PANEL 2022-08-13 09:50:00 Alexandre Montemayor [facility] (NA, K, CL, CO2, Medical Branch GLUCOSE, BUN, CREATININE, CA) CBC WITH DIFF 2022-08-13 09:50:00 Alexandre Montemayor [facility] PHOSPHORUS 2022-08-13 03:53:00 [facility] TROPONIN I 2022-08-13 02:32:00 [facility] POCT GLUCOSE (AUTOMATED) 2022-08-13 01:22:00 Alexandre Montemayor [facility] CT ANGIOGRAM CHEST 2022-08-12 19:53:05 Leonora Ruby [facility] CT ANGIOGRAM 2022-08-12 19:53:05 Estela [facility] ABDOMEN/PELVIS [facility] HB ECG ROUTINE & RHYTHM 2022-08-12 19:09:59 Leonora Ruby [facility] TROPONIN I 2022-08-12 19:08[facility] 2022-08-12 18:01:56 Leonora Ruby [facility] LIPASE 2022-08-12 17:05:00 [facility]22-08-12 17:05[facility]00 [facility] MET[facility]OLIC PANEL 2022-08-12 17:05:00 Leonora Ruby [facility] ([id number]) [facility] CBC WITH DIFF 2022-08-12 17:05[facility]00 [facility]OGLOBIN 2022-08-12 17:05:00 Andre David [facility] (A1C) [facility] PROTHROMBIN TIME / INR 2022-08-12 17:05:00 Leonora Ruby [facility] URINALYSIS 2022-08-12 17:05:00 Tung [facility] N-TERMINAL PRO-BNP 2022-08-12 17:05:00 Leonora Ruby [facility] HB ECG ROUTINE & RHYTHM 2022-08-12 16:51:46 Leonora Ruby [facility] CONSENT/REFUSAL FOR 2022-08-12 16:16:12 Doctor Unassigned, No Un [facility] DIAGNOSIS AND TREATMENT Name Medical Branch REFERRAL- 2022-06-16 05:01:00 Doctor Unassigned, Elizabet Menendez [facility] REQUEST/RESPONSE Name Medical Branch CT, urogram 2018-07-07 00:00:00 [facility] Plan of Care Planned Activity Planned Date Details Comments Source Diagnostic Test 2018-07-07 cytology, urine [facility] Pending 00:00:00 [code = cytology, Group urine] Encounters Start End Encounter Admission Attending Care Care Encounter Source Date/Time Date/Time Type Type Clinicians Facility Department ID 2022-09-15 Outpatient Oliveira, STLMLC STLMLC [id number] Common 09:28:02 [facility] [id number] [facility] 2021-10-22 Outpatient Oliveira, STLMLC STLMLC [id number] Common 14:27:24 Maira [id number] [facility] 2021-10-22 Outpatient Oliveira, STLMLC STLMLC [id number] Common 14:18:00 [facility] [id number] [facility] 2021-10-22 Outpatient Notrees, STLMLC STLMLC [id number] Common 13:35:45 Regina [id number] [facility] 2021-10-22 Outpatient Notrees, STLMLC STLMLC [id number] Common 12:41:58 Regina [address] [facility] 2021-10-22 Outpatient Notrees, STLMLC STLMLC [id number] Common 12:40:52 Regina [address] [facility] 2021-10-22 Outpatient Notrees, STLMLC STLMLC [id number] Common 12:12:33 Regina 07663 [facility] 2021-10-22 Outpatient Notrees, STLMLC STLMLC [id number] Common 11:56:49 Regina 23892 [facility] 2021-10-22 Outpatient Notrees, STLMLC STLMLC [id number] Common 11:56:09 Regina 84617 [facility] 2021-10-22 Outpatient Notrees, STLMLC STLMLC [id number] Common 11:21:52 Regina 20017 [facility] 2021-10-22 Outpatient Notrees, STLMLC STLMLC [id number] Common 11:07:15 Regina 97578 [facility] 2021-10-22 Outpatient Notrees, STLMLC STLMLC [id number] Common 11:06:53 Regina 90909 [facility] 2021-10-22 Outpatient Notrees, STLMLC STLMLC [id number] Common 10:59:53 Regina 26345 [facility] 2021-07-28 Emergency [facility] [id number] Univers 23:28:16 ity of [facility] 2022-10-28 2022-10-28 (TEL) STLMLC STLMLC [id number] Co mmon 00:00:00 00:00:00 [facility] 2022-08-14 2022-08-14 (TEL) STLMLC STLMLC [id number] Co mmon 00:00:00 00:00:00 [facility] 2022-08-14 2022-08-14 Transition ELIUD Rice 1.2.840.114 [id number] Univers 00:00:00 00:00:00 of Judah ELAM 350.1.13.10 it y of [place] 4.2.7.2.686 Servando servin [phone] [facility] [address] 2022-08-12 2022-08-13 Outpatient X [facility] [id number] Univers 10:44:00 16:22:00 EARL ity [facility] 2022-08-12 2022-08-13 Emergency RubyLeonora pappas [facility] 1.2.840 .114 [id number] Univers 10:44:00 16:22:00 Alexandre Montemayor 350.1.13.10 ity of [place] 4.2.7.2.686 [facility] [id number] [facility] [address] 2022-06-22 2022-06-22 (TEL) STLMLC STLMLC [id number] Co mmon 00:00:00 00:00:[address] [facility] 2022-06-19 2022-06-19 (MCR WELL) [facility] [id number] Common 00:00:00 00:00:00 Medicare Spiri t Wellness - [facility] 2022-06-19 2022-06-19 OFFICE [facility] [id number] Co mmon 00:00:00 00:00:00 VISIT EST Spir it PT LEVEL 3 [facility] 2022-06-16 2022-06-16 Orders Doctor MEGAN 1.2.840.114 [id number] Univers 00:00:00 00:00:00 Only Unassigned, ANASTASIA 350.1.13.10 ity of [place] [facility] 4.2.7.2.686 Ty as [id number] [address] 2022-06-15 2022-06-15 OFFICE [facility] [id number] Co mmon 00:00:00 00:00:00 VISIT EST Spir it PT LEVEL 3 [facility] 2022-05-21 2022-05-21 [facility] 1.2.840.114 [id number] Univers 00:00:00 00:00:00 Wallace L HEALTH 350.1.13.10 it [facility] 4.2.7.2.686 Ty as MANOJ?BLEA [phone] Sc richardtanja [address] OFFICE [facility] 2022-05-19 2022-05-19 Office [facility] 1.2.840.114 [id number] Univers 08:45:00 09:00:00 Visit [facility] HEALTH 350.1.13.10 it y of [place] 4.2.7.2.686 Ty as MANOJ?BLEA [id number] Sc richard[address] OFFICE [facility] 2022-05-19 2022-05-19 Outpatient Alec SCHAFFER [facility] [id number] Univers 08:45:00 08:45:00 BRIAN chinchilla [facility] 2022-05-19 2022-05-19 Outpatient Alec SCHAFFER [facility] [id number] Univers 08:45:00 08:45:00 BRIAN chinchilla [facility] 2022-05-16 2022-05-16 Outpatient R RADIOLOGY [facility] [id number] Univers 07:47:58 23:59:00 ity of [facility] 2022-05-16 2022-05-16 Hospital Radiology [facility] 1.2.840.114 [id number] Univers 07:47:58 23:59:00 Encounter [place] 350.1.13.10 ity of [facility] 4.2.7.2.686 [place] [id number] [facility] [address] 2022-05-16 2022-05-16 Outpatient R RADIOLOGY [facility] [id number] Univers 07:47:58 23:59:00 ity of [facility] 2022-05-14 2022-05-14 [facility] 1.2.840.114 [id number] Univers 08:30:00 08:30:00 Encounter Y HEALTH 350.1.13.10 ity of [facility] 4.2.7.2.686 [place] [id number] [facility] [address] 2022-05-14 2022-05-14 Outpatient R RADIOLOGY [facility] [id number] Univers 00:00:00 00:00:00 ity of [facility] 2022-05-14 2022-05-14 Outpatient R RADIOLOGY [facility] [id number] Univers 00:00:00 00:00:00 ity of [facility] 2022-05-12 2022-05-12 [facility] 1.2.840.114 [id number] Univers 00:00:00 00:00:00 Wallace L HEALTH 350.1.13.10 it [facility] 4.2.7.2.686 [place] as MANOJ?BLEA [id number] [address] MEDICAL OFFICE BUILDING 2022-05-11 2022-05-11 Outpatient [facility] [id number] Univers 15:14:20 23:59:00 WALLACE ity of [facility] 2022-05-11 2022-05-11 [facility] 1.2.840.114 [id number] Univers 15:14:20 23:59:00 Encounter Wallace L [place] 350.1.13.10 ity of [facility] 4.2.7.2.686 [place] [facility] [id number] [facility] [address] [place] 2022-05-11 2022-05-11 Office [facility] 1.2.450.741 [id number] Univers 14:45:00 14:45:00 Visit Wallace Edge [facility] 350.1.13.10 it y of [place] 4.2.7.2.686 Ty as MANOJ?BLEA [id number] Sc nikita THOMPSON [address] [place] [address] OFFICE [facility] 2022-05-11 2022-05-11 Outpatient R [facility] [id number] Univers 14:45:00 14:34:12 [facility] 2022-05-07 2022-05-07 Telephone [facility] 1.2.840.114 [id number] Univers 00:00:00 00:00:00 Wallcae Edge [facility] 350.1.13.10 it y of [place] 4.2.7.2.686 Ty as MANOJ?BLEA [id number] Sc nikita THOMPSON [address] [place] [address] 2022-03-05 2022-03-05 (TEL) ST[facility] [id number] Co mmon 00:00:00 00:00:00 [facility] 2022-03-03 2022-03-03 Out[facility] [id number] Univers 13:04:32 23:59:00 [facility] 2022-03-03 2022-03-03 Office [facility] 1.2.840.114 [id number] Univers 13:45:00 14:00:00 Visit [facility] 350.1.13.10 it [facility] 4.2.7.2.686 Ty as MANOJ?BLEA [id number] Sc nikita THOMPSON [address] [place] [address] 2022-03-03 2022-03-03 Outpatient Ale[facility] [id number] Univers 13:45:00 13:45:00 [facility] 2022-02-16 2022-02-16 Outpatient Alec [facility] [id number] Univers 13:27:13 23:59:00 BRIAN itsaleem [facility] 2022-02-16 2022-02-16 Outpatient R [facility] [id number] Univers 13:27:13 23:59:00 BRIAN chinchilla [facility] 2022-02-16 2022-02-16 Office [facility] 1.2.840.114 [id number] Univers 13:45:00 14:00:00 Visit Brian Servin HEALTH 350.1.13.10 it y [facility] 4.2.7.2.686 Ty as MANOJ?BLEA [phone] Sc nikita JULIO[address] OFFICE [facility] 2022-02-16 2022-02-16 Outpatient R [facility] [id number] Univers 13:45:00 13:45:00 BRIAN chinchilla [facility] 2022-02-16 2022-02-16 Orders Doctor MEGAN 1.2.840.114 [id number] Univers 00:00:00 00:00:00 Only Unassigned, ANASTASIA 350.1.13.10 ity of [place] [facility] 4.2.7.2.686 Ty as [id number] [address] 2022-02-16 2022-02-16 Telephone [facility] 1.2.393.250 [id number] Univers 00:00:00 00:00:00 Brian Servin HEALTH 350.1.13.10 it y of [place] 4.2.7.2.686 Ty as MANOJ?BLEA [id number] Sc nikita [address] OFFICE [facility] 2022-02-05 2022-02-05 Orders Doctor MEGAN 1.2.840.114 [id number] Univers 00:00:00 00:00:00 Only Unassigned, ANASTASIA 350.1.13.10 ity of [place] [facility] 4.2.7.2.686 Ty as [id number] [address] 2022-02-04 2022-02-04 OFFICE [facility] [id number] Co mmon 00:00:00 00:00:00 VISIT EST Spir it PT LEVEL 3 - [facility] 2022-01-19 2022-01-19 (TEL) STLMLC STLMLC [id number] Co mmon 00:00:00 00:00:00 [facility] 2022-01-05 2022-01-05 OFFICE STLMLC STLMLC [id number] Co mmon 00:00:00 00:00:00 VISIT EST Spir it PT LEVEL 3 - [facility] 2021-12-22 2021-12-22 OFFICE STLMLC STLMLC [id number] Co mmon 00:00:00 00:00:00 VISIT Spirit ESTAB PT - CHI LEVEL 4 [facility] 2021-11-20 2021-11-20 (TEL) STLMLC STLMLC [id number] Co mmon 00:00:00 00:00:00 [facility] 2021-10-21 2021-10-21 (TEL) STLMLC STLMLC [id number] Co mmon 00:00:00 00:00:00 [facility] 2021-10-02 2021-10-02 (TEL) STLMLC STLMLC [id number] Co mmon 00:00:00 00:00:00 [facility] 2021-09-26 2021-09-26 Outpatient SAAD, MHHERON MHBL [id number] MHBL 08:19:00 13:21:00 [place] 2021-09-12 2021-09-12 (TEL) STLMLC STLMLC [id number] Co mmon 00:00:00 00:00:00 [facility] 2021-09-08 2021-09-08 (TEL) STLMLC STLMLC [id number] Co mmon 00:00:00 00:00:00 [facility] 2021-09-02 2021-09-02 Outpatient [facility] OPH [id number] Univers 06:24:00 09:17:00 CHE estrada [facility] 2021-09-02 2021-09-02 [facility] 1.2.840.114 [id number] Univers 06:24:00 09:17:00 [facility]addy [facility]row [facility] 350.1.13.10 amor de león [place]2.7.2.[place] SUR[place]ICAL [id number] [facility] [address] 2021-09-02 2021-09-02 Surgery Niurka [facility] 1.2.415.893 [id number] Univers 07:30:00 08:31:00 Che CORDERO 350.1.13.10 ity of [place].2.7.2.686 [place] SUR[place]ICAL [id number] [facility] [address] 2021-09-01 2021-09-01 Outpatient R NIURKA [facility] [id number] Univers 09:45:00 09:45:00 CHE chinchilla [facility] 2021-09-01 2021-09-01 Laboratory Only, Adc Test [facility] 1.2.840. 114 [id number] Univers 08:58:02 09:13:02 Only Che Bah 350.1.13. 10 ity of [place] 4.2.7.2.686 [place] CAMPUS [id number] [facility] [address] 2021-09-01 2021-09-01 (TEL) STLMLC STLMLC [id number] Co mmon 00:00:00 00:00:00 [facility] 2021-09-01 2021-09-01 Orders Doctor MEGAN 1.2.840.114 [id number] Univers 00:00:00 00:00:00 Only Unassigned, ANASTASIA 350.1.13.10 ity of [place] [facility] 4.2.7.2.686 Ty as [phone] [facility] [address] 2021-08-26 2021-08-26 OFFICE STLMLC STLMLC [id number] Co mmon 00:00:00 00:00:00 VISIT EST Spir it PT LEVEL 3 - [facility] 2021-08-19 2021-08-19 (TEL) STLMLC STLMLC [id number] Co mmon 00:00:00 00:00:00 [facility] 2021-08-13 2021-08-13 Outpatient Alec SCHAFFER [facility] [id number] Univers 13:15:00 13:15:00 BRIAN chinchilla [facility] 2021-08-13 2021-08-13 Office [facility] 1.2.840.114 [id number] Univers 12:47:28 13:02:28 Visit Brian Servin HEALTH 350.1.13.10 it y of [place] 4.2.7.2.686 Ty as MANOJ?BLEA [phone] Sc dictanja KNEY [facility] 2021-08-13 2021-08-13 Telephone [facility] 1.2.840.114 [id number] Univers 00:00:00 00:00:00 Wallace Edge HEALTH 350.1.13.10 it y of SURGICAL 4.2.7.2.686 Ty as SPECIALTI [phone] Sc dical JAKE [address] [facility] 2021-07-29 2021-07-29 (TEL) STLMLC STLMLC [id number] Co mmon 00:00:00 00:00:00 [facility] 2021-07-25 2021-07-25 (TEL) STLMLC STLMLC [id number] Co mmon 00:00:00 00:00:00 [facility] 2021-07-21 2021-07-21 [facility] 1.2.840.114 [id number] Univers 13:35:00 23:59:00 Encounter Wallace Tejeda 350.1.13.10 ity of [place] 4.2.7.2.686 Ty as Manoj?Blea [phone] Sc nikita thompson 809 [facility]ly N[facility] 2021-07-21 2021-07-21 Out[facility] [id number] Univers 13:35:00 23:59:00 WALLACE chinchilla [facility] 2021-07-21 2021-07-21 Outpatient [facility] [id number] Univers 13:30:00 14:45:07 WALLACE chinchilla [facility] 2021-07-21 2021-07-21 Office [facility] 1.2.263.646 [id number] Univers 13:00:10 14:45:07 Visit Wallace TEJEDA 350.1.13.10 it y of [place] 4.2.7.2.686 Ty as MANOJ?BLEA [id number] Sc nikita HILDA [address] [place] [address] MEDICAL OFFICE BUILDING 2021-07-21 2021-07-21 Outpatient Alec DOTSON [facility] [id number] Univers 13:30:00 13:30:00 WALLACE saleem [facility] 2021-07-21 2021-07-21 (TEL) STLMLC STLMLC [id number] Co mmon 00:00:00 00:00:00 [facility] 2021-07-11 2021-07-11 (TEL) STLMLC STLMLC [id number] Co mmon 00:00:00 00:00:00 [facility] 2021-07-11 2021-07-11 OFFICE STLMLC STLMLC [id number] Co mmon 00:00:00 00:00:00 VISIT [facility] PT - CHI LEVEL 1 [facility] 2021-06-29 2021-06-29 (TEL) STLMLC STLMLC [id number] Co mmon 00:00:00 00:00:00 [facility] 2021-06-24 2021-06-24 OFFICE STLMLC STLMLC [id number] Co mmon 00:00:00 00:00:00 VISIT [facility] PT - CHI LEVEL 4 [facility] 2021-06-13 2021-06-13 Emergency [facility] 1.2.840.114 [id number] Univers 14:19:00 18:37:00 Shannon Cordero 350.1.13.10 [facility] 4.2.7.2.686 [place] [facility] [phone] [address] 2021-06-06 2021-06-06 Outpatient STLMLC STLMLC [id number] Common 00:00:00 00:00:00 [facility] 2021-05-05 2021-05-05 Outpatient STLMLC STLMLC [id number] Common 00:00:00 00:00:00 [facility] 2021-04-30 2021-04-30 Outpatient STLMLC STLMLC [id number] Common 00:00:00 00:00:00 [facility] 2021-04-30 2021-04-30 Outpatient STLMLC STLMLC [id number] Common 00:00:00 00:00:00 [facility] 2021-04-25 2021-04-25 Outpatient STLMLC STLMLC [id number] Common 00:00:00 00:00:00 [facility] 2021-04-03 2021-04-03 Outpatient STLMLC STLMLC [id number] Common 00:00:00 00:00:00 [facility] 2021-01-24 2021-01-24 Outpatient STLMLC STLMLC [id number] Common 00:00:00 00:00:00 [facility] 2021-01-17 2021-01-17 Outpatient STLMLC STLMLC [id number] Common 00:00:00 00:00:00 [facility] 2021-01-13 2021-01-13 Outpatient STLMLC STLMLC [id number] Common 00:00:00 00:00:00 [facility] 2021-01-10 2021-01-10 Outpatient STLMLC STLMLC [id number] Common 00:00:00 00:00:00 [facility] 2020-12-31 2020-12-31 Outpatient STLMLC STLMLC [id number] Common 00:00:00 00:00:00 [facility] 2020-12-25 2020-12-25 Outpatient [facility] [id number] [facility] 13:45:00 13:45:00 [facility] 2020-12-25 2020-12-25 Office [facility] 1.2.884.903 [id number] 12:51:24 13:25:03 [facility] 350.1.13.10 [facility] 4.2.7.2.686 [facility] [id number] [address] 2020-12-23 2020-12-23 Outpatient [facility] [id number] Univers 13:45:00 13:45:00 [facility] 2020-12-232020-12-23 Outpatient STLMLC STLMLC [id number] Common 00:00:00 00:00:00 [facility] 2020-12-21 2020-12-21 Outpatient STLMLC STLMLC [id number] Common 00:00:00 00:00:00 [facility] 2020-12-19 2020-12-19 Outpatient STLMLC STLMLC [id number] Common 00:00:00 00:00:00 [facility] 2020-12-17 2020-12-17 Outpatient STLMLC STLMLC [id number] Common 00:00:00 00:00:00 [facility] 2020-12-17 2020-12-17 Outpatient STLMLC STLMLC [id number] Common 00:00:00 00:00:00 [facility] 2020 2020 Outpatient STLMLC STLMLC [id number] Common 00:00:00 00:00:00 [facility] 2020-12-09 2020-12-09 Outpatient STLMLC STLMLC [id number] Common 00:00:00 00:00:00 [facility] 2020-11-07 2020-11-07 Outpatient STLMLC STLMLC [id number] Common 00:00:00 00:00:00 [facility] 2020-11-04 2020-11-04 Outpatient STLMLC STLMLC [id number] Common 00:00:00 00:00:00 [facility] 2020-11-04 2020-11-04 Outpatient STLMLC STLMLC [id number] Common 00:00:00 00:00:00 [facility] 2020-10-15 2020-10-15 Outpatient SAAD [facility] [id number] [facility] 07:11:00 12:00:00 [place] 2020-09-09 2020-09-09 Outpatient STLMLC STLMLC [id number] Common 00:00:00 00:00:00 [facility] 2020-08-14 2020-08-14 Outpatient Young_J MMG MMG [id number] [address] [place] 02:37:00 02:37:00 [facility] 2020-07-16 2020-07-16 Outpatient STLMLC STLMLC [id number] Common 00:00:00 00:00:00 [facility] 2020-07-04 2020-07-04 Outpatient Alec DOTSON [facility] [id number] Univers 08:00:00 08:00:00 [facility] 2020-05-06 2020-05-06 Out[facility] [id number] Common 10:52:00 10:52:00 [facility] [address] [facility] 2020-04-15 2020-04-15 Outpatient Alec SCHAFFER [facility] [id number] Univers 15:45:00 15:45:00 [facility] 2020-04-11 2020-04-11 Outpatient Alec DOTSON [facility] [id number] Univers 15:30:00 15:30:00 [facility] 2020-04-10 2020-04-10 Outpatient [facility] [id number] Common 13:19:00 13:19:00 [facility] [address] [facility] 2020-04-08 2020-04-08 Outpatient [facility] [id number] Common 11:08:00 11:08:00 [facility] [address] [facility] 2020-04-05 2020-04-05 Outpatient [facility] [id number] Common 18:34:00 18:34:00 [facility] [address] [facility] 2020-03-07 2020-03-07 [facility] [id number] Univers 15:00:00 15:00:00 [facility] 2020-01-09 2020-01-09 Outpatient [facility] [id number] Common 14:23:00 14:23:00 [facility] [address] [facility] 2020-01-08 2020-01-08 Outpatient [facility] [id number] Common 08:00:00 08:00:[address] [facility] 2019-11-22 2019-11-22 Outpatient [facility] [id number] Common 19:45:00 19:45:[address] [facility] 2019-11-08 2019-11-08 Outpatient [facility] [id number] Common 09:12:00 09:12:[address] [facility] 2019-11-07 2019-11-07 Outpatient [facility] [id number] Common 08:17:00 08:17:[address] [facility] 2019-10-19 2019-10-19 Outpatient [facility] [id number] Common 15:57:00 15:57:[address] [facility] 2019-10-18 2019-10-18 Outpatient [facility] [id number] Common 09:24:00 09:24:[address] [facility] 2019-10-17 2019-10-17 Outpatient [facility] [id number] Common 09:00:00 09:00:[address] [facility] 2019-10-11 2019-10-11 Outpatient [facility] [id number] Univers 15:30:52 15:30:00 [facility] 2019-10-09 2019-10-09 Outpatient [facility] [id number] Common 10:27:00 10:27:[address] [facility] 2019-10-09 2019-10-09 Outpatient [facility] [id number] Common 09:00:00 09:00:[address] [facility] 2018-08-08 2018-08-08 Saravanan RINCON [place] - [id number] M rogelio 00:00:00 00:00:00 DO Terrance: [employer] [employer] [address] [place] [address] [employer] [facility] - [address], [facility], [place] [address] , Ph. [phone] 2018-08-04 2018-08-04 Jose RINCON [place] - [id number] M atagor 00:00:00 00:00:00 MD Bobbi: [employer] [address], [place] [address] , Ph. 2018-07-07 2018-07-07 Jose RINCON [place] - [id number] M atagor 00:00:00 00:00:00 MD Bobbi: [employer] [address], [place] [address] , Ph. Results Test Description Test Time Test Comments Results Result Comments Source Transthoracic echo (TTE) 2022-08-13 22:32:11 Test Item Value Reference Range Interpretation Comme nts Height (test code = 5662152763) in Weight (test code = 0369665032) lbs Systolic BP (test code = 4360169053) mmHg Diastolic BP (test code = 3006507302) mmHg Heart Rate (test code = 5922711475) bpm BSA (test code = 1455460291) 2.06 m2 Ao root diam (test code = 6276608967) 4.10 cm Aortic root (test code = 3623668833) 4.1 cm Ao root annulus (test code = 4.1 cm 0283653157) LVOT diameter (test code = 3300021193) 2.13 cm LVOT area (test code = 4662642197) 3.60 cm2 LA size (test code = 5943544276) 2.7 cm LAV(MOD-sp4) (test code = 8293173898) 46.70 mL E wave decelartion time (test code = 0.17 s 6202504765) MV stenosis pressure 1/2 time (test 51.2 ms code = 9323508420) MV Peak A Bobby (test code = 0497134850) 65.7 cm/s MV Peak E Bobby (test code = 4207378230) 52.5 cm/s E/A ratio (test code = 7971676697) ratio MV Prop V (test code = 8723153252) 58.90 cm/s MV E/e' septal (test code = 8.6 cm/s 0570726590) Tapse (test code = 0554108607) 2.07 cm LVOT stroke volume (test code = 56.50 cm3 4180704346) LVOT peak bobby (test code = 0616186064) 83.0 cm/s LVOT mn grad (test code = 0452727193) mmHg AV LVOT peak gradient (test code = mmHg 7550634306) LVOT peak VTI (test code = 3167448774) 15.9 cm LV V1 mean (test code = 2014278998) 57.80 cm/s Aortic valve mean velocity (test code 86.0 cm/s = 8034509007) Ao peak bobby (test code = 7805922613) 113.0 cm/s Ao VTI (test code = 6558132964) 21.8 cm AV area by cont VTI (test code = 2.6 cm2 8257996834) AV area peak bobby (test code = 2.6 cm2 2641547293) Ao max PG (test code = 9031331899) 5.10 mm[Hg] AV peak gradient (test code = mmHg 7467407242) AV valve area (test code = 8602327763) 2.60 cm2 AV mean gradient (test code = mmHg 0141627518) LVIDD (test code = 1965291987) 4.80 cm Left Ventricular End Diastolic Volume 109.8 mL by Teichholz Method (test code = 3556657) IVS (test code = 3697602627) 1.03 cm Interventricular Septum Diastolic 1.03 cm Thickness by 2D (test code = 9969469) LVPWD (test code = 6792109947) 1.04 cm PW (test code = 6855304008) 1.04 cm 0.6-1.1 EF(Teich) (test code = 3081420077) 64.10 % LVIDS (test code = 2307863210) 3.20 cm Left Ventricular End Systolic Volume 39.4 mL by Teichholz Method (test code = 5479454) FS (test code = 8039157836) 35 % EF - 2D (test code = 57789358) 64.10 % Radiology Study observation (narrative) (test code = 45763-7) SOFIYA (test code = SOFIYA) ?Left?Ventricle: Left ventricle size is normal. Normal wall thickness. Normal wall motion. Normal systolic function with a visually estimated EF of 55 - 60%. ?Right?Ventricle: Right ventricle size is normal. Normal systolic function. ?Left?Atrium: Left atrium size is normal. ?Aortic?Valve: Aortic valve structure is normal. Mildly thickened cusps. Mildly calcified cusps. ?Pulmonic?Valve: Pulmonic valve is normal in structure and func tion. ?Mitral?Valve: Mitral valve structure is normal. Mildly thickened leaflets. Mild mitral annular calcification. ?Tricuspid?Valve: Tricuspid valve structure is normal. Trace transvalvular regurgitation. Right ventricular systolic pressure is normal. ?RA pressure is 0-5 mmHg. Left VentricleLeft ventricle size is normal. Normal wall thickness. Normal wall motion. Normal systolic function with a visually estimated EF of 55 - 60%. There is impaired relaxation.Right VentricleRight ventricle size is normal. Normal systolic function.Left AtriumLeft atrium size is normal.Right AtriumRight atrium size is normal.Mitral ValveMitral valve structure is normal. Mildly thickened leaflets. Mild mitral annular calcification. Trace transvalvular regurgitation.Tricuspid ValveTricuspid valve structure is normal. Trace transvalvular regurgitation. Right ventricular systolic pressure is normal. RA pressure is 0-5 mmHg.Aortic ValveAortic valve structure is normal. Mildly thickened cusps. Mildly calcified cusps. No transvalvular regurgitation.Pulmonic ValvePulmonic valve is normal in structure and function. Trace transvalvular regurgitation.Ascending AortaModerately enlarged annulus, ascending aorta and aortic root.PericardiumThe pericardium is normal. No pericardial effusion.Study DetailsStudy quality was adequate. A complete echocardiogram was performed using 2D, color flow Doppler and spectral Doppler. 5 mL of Lumason ultrasound enhancing agent used. [facility] GLUCOSE (AUTOMATED)2022-08-13 18:19:00 Test Item Value Reference Range Interpretation Comments POCT GLU (test code = 1200594028) 196 mg/dL 70-110 H Lab Interpretation (test code = Abnormal 46963-9) [facility] GLUCOSE (AUTOMATED)2022-08-13 13:59:31 Test Item Value Reference Range Interpretation Comments POCT GLU (test code = [id number]) 146 mg/dL 70-110 H Lab Interpretation (test code = Abnormal 15755-0) [facility] 01:25:38 Test Item Value Reference Range Interpretation Comments POCT GLU (test code = 7483691034) 102 mg/dL 70-110 Lab Interpretation (test code = Normal 18097-9) [facility] [id number] 19:44:37 Test Item Value Reference Interpretation Comments Range TROPONIN I (test 0.004 ng/mL See_Comment [Automated code = [id number]) message] The system which generated this result transmitted reference range : <=0.034. The reference range was not used to interpret this result as normal/abnormal . SOFIYA (test code = Reference (Normal) SOFIYA) Range (defined by the 99th percentile reference limit): <= 0.034 ng/mL Note: Cardiac troponin begins to rise 3-4 hours after the onset of ischemia. Repeat in 4-6 hours if the sample was drawn within 3-4 hours of the onset of the symptom and found normal. Diagnosis of myocardial injury is made with acute changes in cTn concentrations with at least one serial sample above the 99th percentile upper reference limit (URL), taken together with the patient's clinical presentation. Biotin has been reported to cause a negative bias, interpret results relative to patient's use of biotin. Lab Interpretation Normal (test code = 22373-5) [facility] AntigenSARS-COV 2 Antigen
[2022-11-25 11:03] LABS: Absolute Lymphocytes (CBC) 1.7 K/uL (0.7-4.9); Hematocrit 43.4 % (39.6-49.0); Lymphocytes % 30.4 % (15.3-44.8); MCV 84.3 fL (80-100); MPV 7.5 fL (7.6-11.3); RBC Red Blood Cell Count 5.15 M/uL (4.33-5.43)
[2022-11-25 11:18] LABS: Potassium 4.7 mmol/L (3.5-5.1)
--- NOTE | 2022-11-25 11:20 | RAD REPORT ---
EXAM DESCRIPTION: CT - Soft Tissue Neck W/Contr - 11/25/2022 11:07 am CLINICAL HISTORY: Neck pain COMPARISON: February 2022 CTA TECHNIQUE: Computed axial tomography of the neck was obtained. 50 cc Isovue 300 was administered in travenously. Coronal and sagittal reconstruction was performed. All CT scans are performed using dose optimization technique as appropriate and may include automated exposure control or mA/KV adjustment according to patient size. FINDINGS: The pharynx, tongue base, larynx and subglottic trachea appear unremarkable The parotid, submandibular and thyroid glands appear unremarkable. No lymphadenopathy is seen No fluid within the sinuses/mastoids [id number] calcified plaque distal vertebral arteries bilaterally IMPRESSION: No acute abnormality is displayed
[2022-11-25] MEDS ORDERED: MORPHINE 4 MG/ML SYR ONE (11:25)
[2022-11-25] MEDS ORDERED: ONDANSETRON 4 MG/2 ML VIAL ONE (11:25)
[2022-11-25] MEDS ORDERED: DIAZEPAM 5 MG TABLET ONE (12:16)
[2022-11-25] MEDS ORDERED: KETOROLAC 30 MG/ML INJ ONE (12:16)
[2022-11-25] MEDS ORDERED: dexAMETHasone 10 MG/ML VIAL ONE (12:39)
[2022-11-25] MEDS ORDERED: NA CHLORIDE 0.9% 500 ML ONE (13:07)
--- NOTE | 2022-11-25 13:17 | RAD REPORT ---
EXAM DESCRIPTION: RAD - Chest Single View - 11/25/2022 1:12 pm CLINICAL HISTORY: CHEST PAIN Chest pain. COMPARISON: Chest Pa And Lat (2 Views) dated 06/15/2022; Chest Single View dated 06/02/2022; Chest Sing le View dated 04/25/2022; Chest Single View dated 01/06/2022 FINDINGS: Portable technique limits examination quality. The lungs are grossly clear. Coarsened lung markings bilaterally likely chronic. The heart is normal in size. No displaced fractures. IMPRESSION: No acute intrathoracic process suspected.
--- NOTE | 2022-11-25 14:39 | EDPHYS ---
Physician Documentation [facility] Name: Moshe Ewing Age: 61 yrs Sex: Male : 1960 Arrival Date: 11/25/2022 Time: 10:35 Bed 5 Private MD: ESTEBAN Physician Chris Plummer HPI: 11/25 12:25 This 61 yrs old Male presents to ER via EMS with complaints of neck pain. kb 12:25 The patient or guardian complains of decreased range of motion, pain, tenderness. The kb symptoms are located diffusely. Onset: The symptoms/episode began/occurred yesterday. Context: The problem was sustained at home, The neck injury/problem resulted from from unknown cause. Associated signs and symptoms: Pertinent positives: This patient does not have any pertinent positive signs or symptoms associated with neck pain. Pertinent negatives: fever, headache, numbness, tingling, The patient denies any alcohol use. The patient is not apparently intoxicated. No neurological symptoms were experienced by the patient prior to arrival in the emergency department. The pain does not radiate. Modifying factors: The symptoms are alleviated by nothing. the symptoms are aggravated by nothing. Severity of symptoms: At their worst the symptoms were moderate, in the emergency department the symptoms are unchanged. The patient has experienced similar episodes in the past, multiple times. The patient has been recently seen by a physician: Dr. santana with similar presenting complaints, and was sent to the [facility] Emergency Department for further evaluation. Historical: - Allergies: 10:55 amlodipine; bp - Home Meds: 10:55 clopidogrel 75 mg Oral tab 1 tab once daily [Active]; finasteride 5 mg Oral tab 1 tab bp once daily [Active]; levothyroxine 75 mcg tab 1 tab once daily [Active]; losartan 100 mg Oral tab 1 tab once daily [Active]; lovastatin 40 mg Oral tab 1 tab once daily [Active]; metformin 500 mg Oral cpER 1 tab 1 tab with breakfast, 1 tab with lunch, 2 tabs with evening meal [Active]; tamsulosin 0.4 mg Oral cp24 1 cap once daily [Active]; - PMHx: 10:55 Hypothyroidism; Hypertension; Hypercholesterolemia; DVT; Diabetes - NIDDM; bp - PSHx: 10:55 back sx; L hand SX with plates placed; foot/shoulder SX; Cholecystectomy; R BKA; bp cadriac stent; stimulator R back for legs; - Immunization history:: Adult Immunizations up to date. - Social history:: Smoking status: Patient denies any tobacco usage or history of. ROS: 12:20 Constitutional: Negative for fever, chills, and weight loss, Respiratory: Negative for kb shortness of breath, cough, wheezing, and pleuritic chest pain. 12:20 Neck: Positive for pain with movement, pain at rest, tenderness, bony tenderness. 12:20 All other systems are negative. Exam: 12:20 Constitutional: This is a well developed, well nourished patient who is awake, alert, kb and in no acute distress. Head/Face: Normocephalic, atraumatic. ENT: Moist Mucous membranes Cardiovascular: Regular rate and rhythm with a normal S1 and S2. No gallops, murmurs, or rubs. No pulse deficits. Respiratory: Respirations even and unlabored. No increased work of breathing. Talking in full sentences Abdomen/GI: Soft, non-tender. No distention Skin: Warm, dry with normal turgor. Normal color. MS/ Extremity: Pulses equal, no cyanosis. Neurovascular intact. Full, normal range of motion. Neuro: Awake and alert, GCS 15, oriented to person, place, time, and situation. Moves all extremities. Normal gait. 12:20 Neck: External neck: tenderness, that is moderate, C-spine: vertebral tenderness, that is moderate, diffusely, ROM/movement: pain, that is moderate, with any movement. 12:55 ECG was reviewed by the Attending Physician. kb Vital Signs: 11:39 BP 158 / 97; Pulse 64; Resp 17; Temp 98; Pulse Ox 95% ; bp 12:43 BP 149 / 98; Pulse 97; Resp 18; Pulse Ox 99% ; Pain 10/10; hb 13:55 BP 152 / 107; Pulse 82; Resp 14; Pulse Ox 97% ; bp 14:56 BP 152 / 93; Pulse 66; Resp 18; Pulse Ox 99% ; hb 16:38 BP 140 / 91; Pulse 67; Resp 17; Pulse Ox 99% on R/A; hb MDM: 10:39 Patient medically screened. kb 11:00 ED course: Patient is a 61-year-old male who presents for neck pain that started kb yesterday. States he was watching TV and the pain came on suddenly. Denies any injury or trauma. Denies any fever, cough, sore throat. Reports pain got worse while at Dr. Santana's office. On exam patient has diffuse tenderness to neck. No neurodeficits. Dr. Santana called prior to patient's arrival and requested CT scan be done. Serum labs and CT ordered, as well as, analgesics.. 12:22 Differential diagnosis: arthritis, cervical strain, abscess. Data reviewed: vital kb signs, nurses notes. Management of patient was discussed with the following: Dr Santana sent pt over from his office. Discussed case prior to pt's arrival. Historians other than the Patient: EMS: [facility]. External Records Reviewed: Viewed ED records from previous visits for same complaint. 12:36 Management of patient was discussed with the following: dr Plummer, does not recommend kb any other imaging at this time. 12:54 ED course: Pt began complaining of numbness to entire body, then chest pain, now kb numbness of left leg. Discussed with Dr Plummer who will evaluate pt as well. Recommends MRI/MRA of head and MRA of neck. 14:36 Consideration of Admission/Observation Patient was admitted/placed on observation. kb Management of patient was discussed with the following: Hospitalist: Charlie STACK ATTENDANT accepts pt for admission under Dr Jewell. Dr Plummer recommends admit for obs. Independent interpretation of the following test(s) in the Emergency Department EKG: See my EKG interpretation above. Care significantly affected by the following chronic conditions: Diabetes, Hypertension. Scoring Tools HEART Score: History: ECG: Age: Risk Factors: > or = 3 Risk factors for atherosclerotic disease (2), Troponin: Total Score = 4. Counseling: I had a detailed discussion with the patient and/or guardian regarding: the historical points, exam findings, and any diagnostic results supporting the discharge/admit diagnosis, lab results, radiology results, the need for further work-up and treatment in the hospital. 11/25 10:39 Order name: IV Start; Complete Time: 11:18 kb 11/25 10:39 Order name: CBC with Diff; Complete Time: 11:11 kb 11/25 10:39 Order name: Basic Metabolic Panel; Complete Time: 11:21 kb 11/25 10:39 Order name: CT Soft Tissue Neck W/contr; Complete Time: 11:21 kb 11/25 12:40 Order name: EKG; Complete Time: 12:40 kb 11/25 12:40 Order name: EKG - Nurse/Tech; Complete Time: 13:00 kb 11/25 12:40 Order name: Troponin High Sensitivity; Complete Time: 13:21 kb 11/25 13:00 Order name: Chest Single View XRAY; Complete Time: 13:20 kb 11/25 13:03 Order name: MRI - Brain Wo Cont kb 11/25 13:03 Order name: MRA Neck w/wo cont kb 11/25 13:43 Order name: CREATININE WHOLE BLOOD; Complete Time: 13:56 EDMS 11/25 16:36 Order name: SARS-COV-2 Antigen Rapid; Complete Time: 16:58 bd EC:55 Rate is 91 beats/min. Rhythm is regular. QRS [place] is Normal. TN interval is normal at kb 124 msec. QRS interval is normal at 142 msec. QT interval is normal at 492 msec. Administered Medications: 11:15 Drug: morphine 4 mg Route: IVP; Infused Over: 4 mins; Site: right antecubital; bp 11:40 Follow up: Response: No adverse reaction bp 11:15 Drug: Zofran (Ondansetron) 4 mg Route: IVP; Site: right antecubital; bp 11:40 Follow up: Response: No adverse reaction bp 12:19 Drug: Valium (diazepam) 5 mg Route: PO; bp 13:41 Follow up: Response: No adverse reaction bp 12:19 Drug: Ketorolac 15 mg Route: IVP; Site: right antecubital; bp 13:41 Follow up: Response: No adverse reaction bp 12:36 Drug: Decadron - Dexamethasone 10 mg Route: IVP; Site: right antecubital; hb 13:41 Follow up: Response: No adverse reaction bp 13:27 Drug: NS 0.9% 500 ml Route: IV; Rate: bolus; Site: right antecubital; hb Disposition Summary: 11/25/22 14:38 Hospitalization Ordered Hospitalization Status: Observation kb Provider: Minh Jewell Location: Telemetry/MedSurg (observation) kb Condition: Stable kb Problem: new kb Symptoms: are unchanged kb Bed/Room Type: Standard Room Assignment: 224(11/25/22 17:34) bp Diagnosis - Chest pain, unspecified kb - Neck Pain kb Forms: - Medication Reconciliation Form kb - SBAR form kb Signatures: Dispatcher [employer] EDMS Justina Oakes FNP-C FNP-Ckb Baxter, Heather, RN RN Sp Stewart, RN RN bp Corrections: (The following items were deleted from the chart) 12:38 12:25 The patient has not recently seen a physician, kb kb 12:55 12:22 Counseling: I had a detailed discussion with the patient and/or guardian connor regarding: the historical points, exam findings, and any diagnostic results supporting the discharge/admit diagnosis, lab results, radiology results, the need for outpatient follow up, a family practitioner, to return to the emergency department if symptoms worsen or persist or if there are any questions or concerns that arise at home, kb 13:14 12:54 ED course: Pt began complaining of numbness to entire body, then chest pain, now kb numbness of left leg. Discussed with Dr Plummer who will evaluate pt as well. kb 17:29 14:38 kb bp 17:34 17:29 215 bp bp
--- NOTE | 2022-11-25 14:39 | ER ---
Nurse's Notes [facility] Name: Moshe Ewing Age: 61 yrs Sex: Male : 1960 Arrival Date: 11/25/2022 Time: 10:35 Bed 5 Private MD: Diagnosis: Chest pain, unspecified;Neck Pain Presentation: 11/25 10:54 Chief complaint: EMS states: BROUGHT FROM SURG OFFICE DR [facility] APPT, C/O SPONTANEOUS bp NECK PAIN x2 DAYS. Coronavirus screen: At this time, the client does not indicate any symptoms associated with coronavirus-19. Ebola Screen: No symptoms or risks identified at this time. Initial Sepsis Screen: Does the patient meet any 2 criteria? No. Patient's initial sepsis screen is negative. Does the patient have a suspected source of infection? No. Patient's initial sepsis screen is negative. Risk Assessment: Do you want to hurt yourself or someone else? Patient reports no desire to harm self or others. Onset of symptoms is unknown. Care prior to arrival: Cervical collar in place. 10:54 Method Of Arrival: EMS: [facility] bp 10:54 Acuity: MYRIAM 3 bp Triage Assessment: 10:57 General: Appears distressed, uncomfortable, Behavior is cooperative, appropriate for bp age, agitated, anxious. Pain: Complains of pain in back of neck. EENT: No deficits noted. Neuro: No deficits noted. Cardiovascular: Rhythm is sinus tachycardia. Respiratory: No deficits noted. GI: No signs and/or symptoms were reported involving the gastrointestinal system. : No signs and/or symptoms were reported regarding the genitourinary system. Derm: No deficits noted. Musculoskeletal: No deficits noted. Historical: - Allergies: 10:55 amlodipine; bp - Home Meds: 10:55 clopidogrel 75 mg Oral tab 1 tab once daily [Active]; finasteride 5 mg Oral tab 1 tab bp once daily [Active]; levothyroxine 75 mcg tab 1 tab once daily [Active]; losartan 100 mg Oral tab 1 tab once daily [Active]; lovastatin 40 mg Oral tab 1 tab once daily [Active]; metformin 500 mg Oral cpER 1 tab 1 tab with breakfast, 1 tab with lunch, 2 tabs with evening meal [Active]; tamsulosin 0.4 mg Oral cp24 1 cap once daily [Active]; - PMHx: 10:55 Hypothyroidism; Hypertension; Hypercholesterolemia; DVT; Diabetes - NIDDM; bp - PSHx: 10:55 back sx; L hand SX with plates placed; foot/shoulder SX; Cholecystectomy; R BKA; bp cadriac stent; stimulator R back for legs; - Immunization history:: Adult Immunizations up to date. - Social history:: Smoking status: Patient denies any tobacco usage or history of. Screenin:58 [facility] ED Fall Risk Assessment (Adult) History of falling in the last 3 months, bp including since admission No falls in past 3 months (0 pts). Abuse screen: Denies threats or abuse. Denies injuries from another. Nutritional screening: No deficits noted. Tuberculosis screening: No symptoms or risk factors identified. Assessment: 10:58 General: SEE TRIAGE NOTE. bp 11:39 Reassessment: PT RETURNED FROM CT. ALL INITIAL RESULTS UNREMARKABLE. bp 12:44 Reassessment: No changes from previously documented assessment. Patient and/or family hb updated on plan of care and expected duration. Pain level reassessed. 14:56 Reassessment: Patient appears in no apparent distress at this time. No changes from hb previously documented assessment. Patient and/or family updated on plan of care and expected duration. Pain level reassessed. 16:38 Reassessment: Patient appears in no apparent distress at this time. No changes from hb previously documented assessment. Patient and/or family updated on plan of care and expected duration. Pain level reassessed. 17:51 Reassessment: Patient appears in no apparent distress at this time. Patient and/or hb family updated on plan of care and expected duration. Pain level reassessed. Vital Signs: 11:39 BP 158 / 97; Pulse 64; Resp 17; Temp 98; Pulse Ox 95% ; bp 12:43 BP 149 / 98; Pulse 97; Resp 18; Pulse Ox 99% ; Pain 10/10; hb 13:55 BP 152 / 107; Pulse 82; Resp 14; Pulse Ox 97% ; bp 14:56 BP 152 / 93; Pulse 66; Resp 18; Pulse Ox 99% ; hb 16:38 BP 140 / 91; Pulse 67; Resp 17; Pulse Ox 99% on R/A; hb ED Course: 10:35 Patient arrived in ED. bd 10:39 Justina Oakes FNP-C is PHCP. kb 10:39 Chris Plummer MD is Attending Physician. kb 10:48 Sp Stewart, RN is Primary Nurse. bp 10:55 Triage completed. bp 10:55 Arm band placed on. bp 10:57 Inserted saline lock: 20 gauge in right antecubital area, using aseptic technique. bp Blood collected. 10:58 Patient has correct armband on for positive identification. Bed in low position. Call bp light in reach. Side rails up X2. 11:09 CT Soft Tissue Neck W/contr In Process Unspecified. EDMS 13:14 Chest Single View XRAY In Process Unspecified. EDMS 14:38 Minh Jewell MD is Hospitalizing Provider. kb 17:51 No provider procedures requiring assistance completed. Patient admitted, IV remains in hb place. Administered Medications: 11:15 Drug: morphine 4 mg Route: IVP; Infused Over: 4 mins; Site: right antecubital; bp 11:40 Follow up: Response: No adverse reaction bp 11:15 Drug: Zofran (Ondansetron) 4 mg Route: IVP; Site: right antecubital; bp 11:40 Follow up: Response: No adverse reaction bp 12:19 Drug: Valium (diazepam) 5 mg Route: PO; bp 13:41 Follow up: Response: No adverse reaction bp 12:19 Drug: Ketorolac 15 mg Route: IVP; Site: right antecubital; bp 13:41 Follow up: Response: No adverse reaction bp 12:36 Drug: Decadron - Dexamethasone 10 mg Route: IVP; Site: right antecubital; hb 13:41 Follow up: Response: No adverse reaction bp 13:27 Drug: NS 0.9% 500 ml Route: IV; Rate: bolus; Site: right antecubital; hb Medication: 10:58 VIS not applicable for this client. bp Outcome: 14:38 Decision to Hospitalize by Provider. kb 17:51 Admitted to Med/surg accompanied by tech, via wheelchair. hb 17:51 Condition: stable 17:51 Instructed on the need for admit, Demonstrated understanding of instructions. 18:39 Patient left the ED. bp Signatures: Dispatcher [employer] EDMS Justina Oakes, PEPE ROSENBERG-Gabrielle Gamino Heather, RN RN hb Sp Stewart, RN RN bp
[2022-11-25] MEDS ORDERED: ACETAMINOPHEN 325 MG TABLET PO PRN (16:34)
[2022-11-25] MEDS ORDERED: ONDANSETRON 4 MG/2 ML VIAL IV PRN (16:48)
[2022-11-25] MEDS ORDERED: GLUCAGON 1 MG/VIAL IM PRN (16:49)
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
[2022-11-25 16:57] LABS: SARS-CoV-2 Antigen Rapid Res Negative (Negative)
[2022-11-25] MEDS ORDERED: D10W 250 ML BAG IV PRN (17:22)
[2022-11-25] MEDS: HYDROCODONE/APAP 10/325 TAB PO PRN (17:37)
[2022-11-25] MEDS ORDERED: HYDROCODONE/APAP 10/325 TAB ONE (17:39)
[2022-11-25] MEDS ORDERED: ENOXAPARIN 40 MG/0.4 ML SQ SCH (18:00)
--- NOTE | 2022-11-25 18:45 | RAD REPORT ---
EXAM DESCRIPTION: MRI - Brain Wo Cont - 11/25/2022 6:34 pm CLINICAL HISTORY: NUMBNESS Headache, drowsiness COMPARISON: Head angio dated 01/06/2022 TECHNIQUE: Multi-sequence, multiplanar MR imaging of the brain was performed without contrast. FINDINGS: No intracranial hemorrhage, hydrocephalus or extra-axial fluid collections.Minimal periven tricular chronic microvascular ischemic changes. No edema or shift of midline structures. No findings to suspect brain mass. DWI is negative for acute CVA. Midline structures are normally formed. Small mucous retention cyst left maxillary antrum. IMPRESSION: Negative for acute CVA or other acute intracranial finding.
--- NOTE | 2022-11-25 18:47 | RAD REPORT ---
EXAM DESCRIPTION: CT - C Spine Wo Con - 11/25/2022 6:38 pm CLINICAL HISTORY: Neck pain COMPARISON: Soft Tissue Neck W/Contr dated 11/25/2022; Neck Angio dated 03/01/2022; Neck Angio dated 12/26 FINDINGS: The cervical vertebral body heights and disc spaces are maintained. Mild endplate osteophy katheryn lower cervical spine. No evidence of acute cervical spine fracture or subluxation. Prevertebral soft tissues are normal in thickness. Heavy vertebrobasilar atherosclerosis. IMPRESSION: Negative for acute cervical spine abnormality. All CT scans are performed using dose optimization technique as appropriate and may include automated exposure control or mA/KV adjustment according to patient size.
[2022-11-25] MEDS ORDERED: NITROGLYCERIN 1 GM PKT TD ONE ×2 (19:04→19:10)
[2022-11-25] MEDS ORDERED: MORPHINE 2 MG/ML SYR IV PRN (19:04)
[2022-11-25] MEDS ORDERED: ASPIRIN 81 MG CHEWABLE TABLET PO ONE (19:04)
[2022-11-25] MEDS: NITROGLYCERIN/D5W 50 MG/250 ML BTL IV SCH (19:40)
[2022-11-25] MEDS ORDERED: HYDRALAZINE HCL 20 MG/ML VIAL IV PRN (19:41)
--- NOTE | 2022-11-25 19:41 | RAD REPORT ---
EXAM DESCRIPTION: CT - Angio Aorta For Dissection - 11/25/2022 7:32 pm CLINICAL HISTORY: Chest pain radiating to the back. chest pain, neck pain, HTN COMPARISON: Angio Aorta For Dissection dated 10/28/2019 TECHNIQUE: CT angiography of the aorta was performed with MIPs. All CT scans are performed using dose optimization technique as appropriate and may include automated exposure control or mA/KV adjustment according to patient size. FINDINGS: A left aortic arch is present with normal branching pattern of the great vessels.No acute aortic finding is seen such as aneurysm, penetrating ulcer or dissection. The celiac axis, SMA, ZULEIMA and renal arteries are patent. No evidence of pulmonary embolism. Mild linear opacities are seen in both posterior lung bases. No focal infiltrate suspected. The liver demonstrates no focal mass or biliary dilatation.Cholecystectomy clips.The spleen, pancreas , adrenal glands and kidneys are within normal limits for arterial phase imaging.Benign left renal cy st. No bowel obstruction, free fluid or abscess.No pathologic enlarged lymphadenopathy identified.Contras t fills the urinary bladder. IVC filter. Postsurgical lumbar spine with hardware in place.Vertebroplasty cement is also noted upper lumbar lev el. IMPRESSION: No acute aortic finding is demonstrated.
[2022-11-25] MEDS ORDERED: HEPARIN/D5W 25,000 UNIT/500 ML BAG IV SCH (20:00)
--- NOTE | 2022-11-25 20:00 | P.PN ---
Date of Service: 11/25/22 At 1859 rapid response was called for patient's room. Upon arrival to room patient complaining of severe chest pain, diaphoretic with blood pressure 220/160. EKG performed shows depressions in V5/V6 similar to admission EKG. Case was discussed with cardiology concern for possible aortic dissection versus acute CO. Patient brought to CT, CT aortogram performed which was negative for aortic dissection or other acute findings. Patient was placed on heparin/nitro drip and moved to ICU. Pain has improved at this time. Repeat troponin flat currently, third troponin ordered and pending for this evening. Symptoms improved, case discussed with patient's as well. Continue ICU level of care for tonight.
[2022-11-25 20:08] LABS: Magnesium 2.2 mg/dL (1.6-2.4); Phosphorus 1.3 mg/dL (2.5-4.9); Thyroid Stimulating Hormone 0.637 uIU/mL (0.358-3.740)
[2022-11-25 21:16] LABS: Protime INR 1.11
[2022-11-25] MEDS ORDERED: MORPHINE 2 MG/ML SYR IV ONE (21:16)
[2022-11-25] MEDS ORDERED: NA CHLORIDE 0.9% 500 ML IV ONE (21:26)
[2022-11-25] MEDS: NA CHLORIDE 0.9% 1,000 ML IV SCH (22:45)
[2022-11-25] MEDS: INSULIN -REGULAR HUMAN 50 UNIT/0.5 ML ML SQ SCH (22:53)
[2022-11-25] MEDS ORDERED: HYDROMORPHONE HCL 0.5 MG/0.5 ML INJ IV ONE (23:24)
[2022-11-25] MEDS ORDERED: FAMOTIDINE 20 MG/2 ML VIAL IV ONE (23:48)
[2022-11-26] MEDS: HYDROMORPHONE HCL 1 MG/ML INJ IV PRN ×3 (00:41→13:55)
[2022-11-26] MEDS: NITROGLYCERIN/D5W 50 MG/250 ML BTL IV SCH (02:30)
[2022-11-26 02:40] LABS: Absolute Lymphocytes (CBC) 0.9 K/uL (0.7-4.9); Hematocrit 37.3 % (39.6-49.0); Lymphocytes % 9.4 % (15.3-44.8); MCV 83.8 fL (80-100); MPV 7.9 fL (7.6-11.3); RBC Red Blood Cell Count 4.44 M/uL (4.33-5.43)
[2022-11-26 02:46] LABS: Potassium 4.8 mmol/L (3.5-5.1)
[2022-11-26] MEDS: NA CHLORIDE 0.9% 1,000 ML IV SCH ×2 (07:52→17:20)
[2022-11-26] MEDS: INSULIN -REGULAR HUMAN 50 UNIT/0.5 ML ML SQ SCH ×4 (07:53→20:41)
[2022-11-26 08:37] LABS: Urine Bilirubin Negative (Negative); Urine Blood Negative (Negative); Urine Clarity Clear (Clear); Urine Color Yellow (Yellow); Urine Glucose 1+ (Negative); Urine Protein Negative (Negative); Urine Urobilinogen 0.2 mg/dL (0.2-1.0); Urine pH 5.5 (5.0-7.0)
[2022-11-26] MEDS: ASPIRIN 81 MG CHEWABLE TABLET PO SCH (09:34)
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
[2022-11-26] MEDS: HYDROCODONE/APAP 10/325 TAB PO PRN (15:48)
--- NOTE | 2022-11-26 17:29 | EKG ---
Test Date: 2022-11-25 Test Time: 12:45:55 Wool Fleece Grader: RAFA MEASUREMENT RESULTS: Intervals: Rate: 91 IN: 124 QRSD: 142 QT: 400 QTc: 492 [place]: P: 41 IN: 124 QRS: 90 T: 40 INTERPRETIVE STATEMENTS: Normal sinus rhythm Right bundle branch block Abnormal ECG Compared to ECG 06/02/2022 22:30:25 No significant changes Electronically Signed On 11-26-22 17:26:29 AGENCY SALES MANAGEMENT ASSISTANT by Jae Owens
--- NOTE | 2022-11-26 17:31 | CON ---
Date of Consultation: 11/26/2022 Reason For Consultation: Chest pain. History Of Present Illness: This is a 61-year-old male with past medical history of hypertension, bl ood pressure was not controlled. He came in with hypertensive emergency. Yesterday, he had blood pr essure above 200 systolic and he was having severe crushing type chest pain. He is known to have his tory of coronary artery disease, diabetes, and DVT, hypothyroidism as well. His troponins have been negative and we started him on nitro drip yesterday. Blood pressure is much better and he is asympto matic this morning. Past Medical History: As outlined above in HPI. Medications: Refer to reconciliation sheet for detailed list. Allergies: AMLODIPINE. Family History: No premature coronary artery disease or cancer. Social History: Does not smoke or drink. Does not use any drugs. Review of Systems: All systems reviewed and they were negative except what mentioned in HPI. Physical Examination: Vital Signs: Reviewed. Head and Neck: Pupils are equal, reactive to light. Intact eye movements. No JVD. No cervical lym phadenopathy. Neck is supple. Thyroid is not enlarged. Lungs: Clear to auscultation bilaterally. No rhonchi, wheezing, or crackles. No accessory muscle u se. Heart: Regular rate and rhythm. No extra sounds. Abdomen: Soft, nontender. Bowel sounds positive. No organomegaly. No masses or hernia. No rigidi ty or rebound. Extremities: No edema, clubbing, or cyanosis. Intact pulses. Skin: No rash. Neurologic: Alert, awake, oriented x3. No acute focal deficits appreciated. Investigations: Cardiac enzymes x3 are negative and BUN is 16, creatinine 1.26, and hemoglobin is 12 .6. Assessment And Recommendations: 1.Chest pain, very severe, was suggestive of acute coronary syndrome; however, cardiac enzymes are n egative and pain resolved and the blood pressure is controlled. He is known to have history of coron abner artery disease. I recommend to obtain an exercise nuclear stress test tomorrow to further evalua te. 2.Hypertensive crisis. Blood pressure is much better. He is being transitioned to oral medication and using hydralazine p.r.n. intravenously for blood pressure control and his blood pressure is much better. CT scan and dissection protocol was negative yesterday. 3.Coronary artery disease with active chest pain. Stress test as outlined above. SR/MODL Voice ID: [id number] Report ID: [id number]
[2022-11-26] MEDS: ATORVASTATIN 10 MG TAB PO SCH (20:40)
[2022-11-27] MEDS ORDERED: METHOCARBAMOL 1,000 MG/10 ML VIAL ONE (00:31)
[2022-11-27] MEDS ORDERED: NA CHLORIDE 0.9% 100 ML ONE (00:35)
[2022-11-27] MEDS: NA CHLORIDE 0.9% 1,000 ML IV SCH ×3 (04:12→23:30)
[2022-11-27] MEDS: LEVOTHYROXINE SOD 0.075 MG TAB PO SCH (06:30)
[2022-11-27] MEDS: INSULIN -REGULAR HUMAN 50 UNIT/0.5 ML ML SQ SCH ×4 (07:30→20:28)
[2022-11-27] MEDS ORDERED: REGADENOSON 0.4 MG/5 ML SYR IV ONE (07:35)
--- NOTE | 2022-11-27 07:48 | ECHO ---
HEIGHT: 5 ft 10 in WEIGHT: 187 lb 0 oz DATE OF STUDY: 11/26/[address]: Gisele Eubanks 2-DIMENSIONAL: YES M.MODE: YES DOPPLER: YES COLOR FLOW: YES TDS: YES PORTABLE: YES DEFINITY: BUBBLE STUDY: DIAGNOSIS: CHEST PAIN CARDIAC HISTORY: CATHERIZATION: SURGERY: PROSTHETIC VALVE: PACEMAKER: MEASUREMENTS (cm) DIASTOLIC (NORMALS) SYSTOLIC (NORMALS) IVSd 0.9 (0.6-1.2) LA Diam 3.0 (1.9-4.0) LVEF 57% LVIDd 3.5 (3.5-5.7) LVIDs 2.5 (2.0-3.5) %FS 29% LVPWd 1.0 (0.6-1.2) Ao Diam 3.8 (2.0-3.7) 2 DIMENSIONAL ASSESSMENT: RIGHT ATRIUM: NORMAL LEFT ATRIUM: NORMAL RIGHT VENTRICLE: NORMAL LEFT VENTRICLE: NORMAL TRICUSPID VALVE: NORMAL MITRAL VALVE: NORMAL PULMONIC VALVE: NORMAL AORTIC VALVE: NORMAL PERICARDIAL EFFUSION: NONE AORTIC ROOT: NORMAL LEFT VENTRICULAR WALL MOTION: NORMAL DOPPLER/COLOR FLOW: TRACE TRICUSPID REGURGITATION, TRACE MITRAL REGURGITATION COMMENTS: 1. NORMAL LEFT VENTRICULAR EJECTION FRACTION 55-60% 2. NORMAL WALL MOTION 3. TRACE MITRAL REGURGITATION, TRICUSPID REGURGITATION 4. NORMAL DIASTOLIC FUNCTION TECHNOLOGIST: JARET FANG
[2022-11-27] MEDS: LOSARTAN POTASSIUM 50 MG TABLET PO SCH (08:21)
[2022-11-27] MEDS: CLOPIDOGREL 75 MG TABLET PO SCH (08:22)
[2022-11-27] MEDS: ASPIRIN 81 MG CHEWABLE TABLET PO SCH (08:22)
[2022-11-27] MEDS: FINASTERIDE 5 MG TAB PO SCH (08:23)
[2022-11-27] MEDS: TAMSULOSIN 0.4 MG SR CAP PO SCH (08:23)
[2022-11-27] MEDS ORDERED: HYDRALAZINE HCL 20 MG/ML VIAL ONE ×2 (10:11→12:49)
--- NOTE | 2022-11-27 11:27 | RAD REPORT ---
EXAM DESCRIPTION: NM - Rest Stress Cardiac Imaging - 11/27/2022 10:58 am CLINICAL HISTORY: Chest pain. COMPARISON: None. TECHNIQUE: The patient was administered 11.6 mCi of Tc 99m Sestamibi prior to resting SPECT imaging of the heart. The patient was then administered 28.3 MCi of Tc 99m Sestamibi following exercise or ph armacologic stress. Multiplanar SPECT images were reviewed. FINDINGS: Small, mild area of diminished radiotracer uptake inferior left ventricle myocardium prob ably secondary to attenuation from the diaphragm, less likely infarction. There is uniformity of radiotracer uptake involving the remainder of the left ventricular myocardium on rest and stress images. The left ventricular ejection fraction equals 60% IMPRESSION: No evidence of stress-induced ischemia
[2022-11-27] MEDS: HYDROMORPHONE HCL 1 MG/ML INJ IV PRN (12:33)
[2022-11-27] MEDS ORDERED: LABETALOL 20 MG/4ML SYRINGE IV ONE ×3 (12:46→13:00)
[2022-11-27] MEDS ORDERED: HYDROMORPHONE HCL 0.5 MG/0.5 ML INJ IV ONE (13:00)
[2022-11-27] MEDS ORDERED: HYDRALAZINE HCL 20 MG/ML VIAL IV ONE (13:15)
[2022-11-27 13:54] LABS: Absolute Lymphocytes (CBC) 1.6 K/uL (0.7-4.9); Lymphocytes % 18.9 % (15.3-44.8); MPV 7.7 fL (7.6-11.3)
[2022-11-27 14:14] LABS: Potassium 3.9 mmol/L (3.5-5.1); Troponin High Sensitivity 9.3 pg/mL (<58.9)
--- NOTE | 2022-11-27 14:33 | EKG ---
Test Date: 2022-11-26 Test Time: 01:53:56 Sole Leveler Machine: RT-O MEASUREMENT RESULTS: Intervals: Rate: 71 MD: 166 QRSD: 144 QT: 422 QTc: 458 [place]: P: 49 MD: 166 QRS: 87 T: 48 INTERPRETIVE STATEMENTS: Normal sinus rhythm Right bundle branch block Abnormal ECG Compared to ECG 11/25/2022 19:11:14 Sinus tachycardia no longer present Electronically Signed On 11-27-22 14:29:42 CONSULTING SME by Jae Owens
--- NOTE | 2022-11-27 14:33 | EKG ---
Test Date: 2022-11-25 Test Time: 19:11:14 Sexer: MARICARMEN MEASUREMENT RESULTS: Intervals: Rate: 110 PA: 152 QRSD: 148 QT: 368 QTc: 498 [place]: P: 72 PA: 152 QRS: 109 T: 46 INTERPRETIVE STATEMENTS: Sinus tachycardia Right bundle branch block Abnormal ECG Compared to ECG 11/25/2022 12:45:55 Sinus rhythm no longer present Electronically Signed On 11-27-22 14:29:45 GEODETIC COMPUTATOR by Jae Owens
[2022-11-27] MEDS: carvediloL 12.5 MG TAB PO SCH (18:07)
--- NOTE | 2022-11-27 18:50 | PN ---
Date of Progress Note: 11/27/2022 Subjective: Seen by bedside. His blood pressure is very high. This morning went up to 211 range. The patient starts having chest pain again. Review of Systems: Chest pain as above. No nausea, vomiting, or diarrhea. No dysuria, polyuria, or urgency. All other systems reviewed and they were negative. Physical Examination: Vital Signs: Reviewed. Head and Neck: Pupils are equal, reactive to light. Intact eye movements. No JVD. No cervical lym phadenopathy. Neck is supple. Thyroid is not enlarged. Lungs: Clear to auscultation bilaterally. No rhonchi, wheezing, or crackles. No accessory muscle u se. Heart: Regular rate and rhythm. No extra sounds. Abdomen: Soft, nontender. Bowel sounds positive. No organomegaly. No masses or hernia. No rigidi ty or rebound. Extremities: No edema, clubbing, or cyanosis. Intact pulses. Skin: No rash. Neurologic: Alert, awake, oriented x3. No acute focal deficits appreciated. Investigations: Troponins are negative. BUN 16, creatinine 1.02. Hemoglobin 13.4. Assessment/recommendation: 1.Chest pain. We obtained a nuclear stress test that was negative for ischemia and cardiac enzymes are totally negative. This chest pain is likely due to the hypertension. See below. 2.Hypertensive crisis. Patient's blood pressure is not controlled. He is on Cozaar only. Add Core g at 12.5 mg twice a day and also add hydrochlorothiazide at 25 mg daily and get this blood pressure under control. His blood pressure will not get controlled with one medicine only, likely he is going to need at least 3 medications to get his blood pressure under a better value and this chest pain should subside. /ANA Voice ID: [id number] Report ID: [id number]
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
[2022-11-27] MEDS: LIDOCAINE 4% PATCH TOP SCH ×2 (20:07→20:28)
[2022-11-27] MEDS: ATORVASTATIN 10 MG TAB PO SCH (20:21)
[2022-11-27] MEDS: HYDROCODONE/APAP 10/325 TAB PO PRN (21:14)
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
[2022-11-28] MEDS: carvediloL 12.5 MG TAB PO SCH ×2 (06:00→18:28)
[2022-11-28] MEDS: LEVOTHYROXINE SOD 0.075 MG TAB PO SCH (06:11)
[2022-11-28] MEDS: INSULIN -REGULAR HUMAN 50 UNIT/0.5 ML ML SQ SCH ×4 (07:30→20:31)
[2022-11-28] MEDS: LIDOCAINE 4% PATCH TOP SCH (09:00)
[2022-11-28] MEDS: CLOPIDOGREL 75 MG TABLET PO SCH (09:15)
[2022-11-28] MEDS: ASPIRIN 81 MG CHEWABLE TABLET PO SCH (09:15)
[2022-11-28] MEDS: LOSARTAN POTASSIUM 50 MG TABLET PO SCH (09:15)
[2022-11-28] MEDS: TAMSULOSIN 0.4 MG SR CAP PO SCH (09:15)
[2022-11-28] MEDS: FINASTERIDE 5 MG TAB PO SCH (09:16)
[2022-11-28] MEDS: NA CHLORIDE 0.9% 1,000 ML IV SCH ×2 (12:41→20:23)
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
[2022-11-28] MEDS: HYDROMORPHONE HCL 1 MG/ML INJ IV PRN ×2 (16:26→20:40)
[2022-11-28] MEDS: HYDROCODONE/APAP 10/325 TAB PO PRN (20:22)
[2022-11-28] MEDS: ATORVASTATIN 10 MG TAB PO SCH (20:22)
[2022-11-28 22:06] VITALS: O2SAT 98
[2022-11-29] MEDS: LEVOTHYROXINE SOD 0.075 MG TAB PO SCH (05:27)
[2022-11-29] MEDS: NA CHLORIDE 0.9% 1,000 ML IV SCH (05:28)
[2022-11-29] MEDS: carvediloL 12.5 MG TAB PO SCH (05:33)
[2022-11-29] MEDS: INSULIN -REGULAR HUMAN 50 UNIT/0.5 ML ML SQ SCH (07:30)
[2022-11-29 07:39] LABS: Potassium 4.1 mmol/L (3.5-5.1)
[2022-11-29 08:20] VITALS: BP 170/88; TEMP 98.3
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
[2022-11-29] MEDS: LIDOCAINE 4% PATCH TOP SCH (08:41)
[2022-11-29] MEDS: ASPIRIN 81 MG CHEWABLE TABLET PO SCH (08:41)
[2022-11-29] MEDS: TAMSULOSIN 0.4 MG SR CAP PO SCH (08:42)
[2022-11-29] MEDS: LOSARTAN POTASSIUM 50 MG TABLET PO SCH (08:42)
[2022-11-29] MEDS: CLOPIDOGREL 75 MG TABLET PO SCH (08:42)
[2022-11-29] MEDS: FINASTERIDE 5 MG TAB PO SCH (08:42)
--- NOTE | 2022-11-30 07:29 | TREADPHA ---
DX: CHEST PAIN Date of Study: 11/27/2022 Ht: 5' 10 " Wt: 187 lb 0 oz Consulting Physician: GAVIOTA MEDICATIONS: TYLENOL, NORCO, ASPIRIN, LIPITOR, PLAVIX, PROSCAR, GLUCAGEN, APRESOLINE, DILAUDID, NOVOLIN-R, SYNTHROID, COZAAR, ZOFRAN, FLOMAX HISTORY: 61 YEAR OLD MALE, COMPLAINTS OF CHEST PAIN. HISTORY OF BLOOD PRESSURE HYPERTENSION, DIABETES MELLITUS, HYPOTHYROIDISM, HYPERTENSION, NON-SMOKER, NON-DRINKER. PHYSICIAL EXAMINATION: RESTING B.P.: 188/103 RESTING H.R.: 61 RESTING EKG: NORMAL SINUS RHYTHM, RIGHT BUNDLE BRANCH BLOCK. PROTOCOL: PHARMACOLOGIC EXERCISE TIME: 3:30 B.P. AT PEAK STRESS: 166/85 IMPRESSION: LEXISCAN INJECTED FOLLOWED BY CARDIOLITE PER PROTOCOL. SEE NUCLEAR MEDICINE REPORT. PATIENT HAS RIGHT BUNDLE BRANCH BLOCK PRIOR TO PROCEDURE. OCCASIONAL PREMATURE VENTRICULAR COMPLEXES. NO SUPRAVENTRICULAR TACHYCARDIA, VENTRICULAR TACHYCARDIA, PREMATURE ATRIAL COMPLEXES. PATIENT REPORTED CHEST PAIN. FOUR OUT OF TEN THROUGHOUT PROCEDURE. ELECTROCARDIOGRAM IS NON-DIAGNOSTIC DUE TO ABNORMAL BASELINE.
== END 2022-11-29 10:33 | disposition home or self-care (01) | DRG 305 ==
LOC: ER 10:28 → ERHOLD 16:32 → 2ND 17:50 → 3RD-ICU 19:28 → 2ND 11-26 16:15 → OBSVTOIN 11-28 06:39
PROVIDERS: ADMIT Internal Medicine; ATTEND Internal Medicine
DX: I16.1 Hypertensive emergency (principal); E03.9 Hypothyroidism, unspecified; I10 Essential (primary) hypertension; E11.65 Type 2 diabetes mellitus with hyperglycemia; E78.5 Hyperlipidemia, unspecified; M54.2 Cervicalgia; I08.1 Rheumatic disorders of both mitral and tricuspid valves; N40.0 Benign prostatic hyperplasia without lower urinary tract symptoms; I25.10 Atherosclerotic heart disease of native coronary artery without angina pectoris; Z56.0 Unemployment, unspecified; Z88.8 Allergy status to other drugs, medicaments and biological substances; Z95.5 Presence of coronary angioplasty implant and graft; Z90.49 Acquired absence of other specified parts of digestive tract; Z79.02 Long term (current) use of antithrombotics/antiplatelets; Z79.84 Long term (current) use of oral hypoglycemic drugs; Z79.890 Hormone replacement therapy; Z79.899 Other long term (current) drug therapy; Z86.718 Personal history of other venous thrombosis and embolism; Z89.511 Acquired absence of right leg below knee; Z20.822 Contact with and (suspected) exposure to COVID-19
CPT/HCPCS: 36415; 70491; 70551; 71045; 71275; 72125; 74175; 78452; 80048; 81003; 82550; 82565; 82947; 83735; 84100; 84439; 84443; 84484; 85025; 85379; 85610; 85730; 87811; 93005; 93017; 93306; 96374; 96375; 99285; A9500; G0378; J0360; J1100; J1170; J1644; J1815; J2001; J2270; J2405; J2785; J2800; J7030; J7040; Q9967

== ENCOUNTER 2022-11-30 12:50 | Emergency (ER) | payer OTHER ==
--- OUTSIDE RECORDS SUMMARY | 2022-11-30 12:56 | XMS REPORT | Continuity of Care Document ---
:1960 Author Organization [facility] t Address [address] [facility] [address] [place] [address] Care Team Providers Name Role Phone Regina Hodges Primary Care Physician Maira Oliveira Attending Clinician Unavailable Regina Hodges Attending Clinician Unavailable Carolina Rice RN Attending Clinician Unavailable EARL GODDARD Attending Clinician Unavailable Leonora Guzman Attending Clinician Alexandre Montemayor MD Attending Clinician Earl Goddard MD Attending Clinician Doctor Unassigned, [place] Attending Clinician Unavailable Wallace Dotson MD Attending [...] Number Effective Date Expiration Date S zena [facility] DUAL [id number] 2020 COMP HMO D SNP 00:00:00 [place]ICA[place] [id number] 2020 [place] 00:[place]:00 AARP [facility] 53 [id number] 2020 Common ADVANTAGE 00:00:00 [facility] [id number] [facility] MEDICARE [id number] 2020 COMPLETE CHOICE 00:00:00 [employer] GOLD PLS [id number] 2019 HMO 00:00:00 MEDICARE PART A [id number] 2004 2019 \T\ B 00:00:00 00:00:00 Problems Condition Condition Condition Status Onset Resolution Last Treating Co mments Source Name Details Category Date Date Treatment Clinician Date Coronary Coronary Disease Active 2021-09 Unive rs artery artery 1-17 ity of disease disease 00:00: [place] involving involving 00 Medi balbina telida telida Branch coronary coronary artery of artery of telida telida heart heart without without angina angina pectoris [...] 1-10 ity of 00:00: [place] [facility] Left knee Left knee Disease Active Uni vers pain pain 1-10 ity of 00:00: [place] [facility] Shoulder Shoulder Disease Active Unive rs pain, pain, 5-10 ity of bilateral [facility] Foot pain, Foot pain, Disease Active U nivers left left 3-09 ity of 00:00: [place] [facility] [id number] Essential Problem Comm on hypertensi Spirit on - CHI [facility] [id number] [place] [address] prostatic Spirit hyperplasi - CHI a with [facility] urinary Medical tract Center symptoms [id number] Other Problem Common secondary Spirit acute gout - CHI of left [facility] [id number] Type 2 Problem Common diabetes Spirit mellitus - CHI [facility] on, Medical unspecifie Center d 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 [id number] Acquired Problem Comm on hypothyroi Spirit dism [facility] [id number] Frequency Problem Com mon of Spirit micturitio - CHI n [facility] [id number] Mass in Problem Commo n neck [facility] [id number] History of Problem C ommon right Spirit below knee - CHI amputation [facility] [id number] Cervical Problem Com mon osteophyte [facility] [id number] [place] [address] exam [facility] [id number] [place] [address] deep vein Spirit thrombosis - CHI (DVT) of [facility] muscle Medical vein of Center both lower extremitie s [id number] Folic acid Problem Co mmon deficiency Spirit - [facility] [id number] Polyneurop Problem Co mmon athy Spirit associated - CHI with [facility] disease [facility] 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 - CHI diabetes with mellitus diabetic [facility] polyneurop Medica l athy, Center without long-term current use of insulin [id number] Benign Problem Common prostatic Spirit hyperplasi - CHI a without [facility] urinary Medical tract Center symptoms [id number] PAD Problem Common (periphera Spirit l artery - CHI disease) [facility] [id number] Mixed Problem Common hyperlipid Spirit emia - [facility] Raised Raised Problem Active [place] prostate [...] Active Univers ALLERGIE Class ity of S [facility] 7200 Drug Active CP, SOB, Common allergy Nausea [facility] Social History Social Habit Start Date Stop Date Quantity Comments Source Sex Assigned At Common Sp josee - [facility] History of Common Spirit - Tobacco Use [facility] History SDOR Food 2022-08-14 2022-08-14 1 Univers ity of Worry 00:00:00 00:00:00 [facility] History SDOH Food 2022-08-14 2022-08-14 1 Univers ity of Scarcity 00:00:00 00:00:00 [facility] History SDOH 2022-08-14 2022-08-14 2 University o f Transport Med 00:00:00 00:00:00 [facility] al Branch History SDOH 2022-08-14 2022-08-14 2 University o f Transport Non-Med 00:00:00 00:00:00 [facility] edical Branch Alcohol intake 2022-08-13 2022-08-13 0 /d University of 00:00:00 00:00:00 [facility] Exposure to 2022-08-02 2022-08-12 Not sure University of SARS-CoV-2 00:00:00 10:42:00 [facility] (event) Branch Tobacco use and 2022-05-19 2022-05-19 Smokeless tobacco Un iversity of exposure 00:00:00 00:00:00 non-user [facility] Smoking Status Start Date Stop Date Source Never smoked tobacco [facility] Medications Ordered Filled Start Stop Current Ordering Indication Dosage Frequency Signature Comments Components Source Medication Medication Date Date Medication? Clinician (SIG) Name Name rehana 2021-09 Yes 20mg 20 mg, Univ ers n (LIPITOR) 1-18 Oral, QHS, it y of tablet 20 03:00[place] 00 on [facility] 08/13/22 Branch at 2100, Until Discontinu ed sulfur 2021-09 202- No [id number] 5mL 5 mL, Unive rs hexafluorid -08-13 Intravenou i ty of e microsphr 20:30: 20:30 s, ONCE, 1 [place] (LUMASON) 00 :00 dose, On Medica l injection 5 [facility] Branch mL 08/13/22 at 1430, Routine
swat team member approving Restricted medication : MANDY VAUGHN clopidogreL 2021-09 Yes 75mg Take 75 mg Univers (PLAVIX) 75 -17 by mouth ity of mg tablet 16:36: in the [place] [address] morning. Medical Branch Levothyroxi 2021-09 Yes Take by Uni vers ne 75 mcg 1-17 mouth. ity of capsule 16:36: [place] [address] Medical Branch finasteride 2021-09 Yes 5mg Take 5 mg U nivers 5 mg tablet -17 by mouth ity of 16:36: in the [place] [address] morning. Medical Branch losartan 2021-09 Yes 100mg Take 100 Univ ers 100 mg 1-17 mg by ity of tablet 16:36: mouth in [place] [address] the Medical morning. Branch metFORMIN 2021-09 Yes 500mg Take 500 Uni vers 500 mg 1-17 mg by ity of tablet 16:36: mouth in [place] [address] the Medical morning Branch and 500 mg in the evening. Take with meals. lovastatin 2021-09 Yes 20mg Take 20 mg U nivers 20 mg 1-17 by mouth ity of tablet 16:36: at [place] [address] bedtime. Medical Branch tamsulosin 2021-09 Yes Take by Univ ers (FLOMAX) 1-17 mouth ity of 0.4 mg 24 16:36: daily. [facility] capsule 03 Medical Branch ergocalcife 2021-09 Yes 2000U Take 2,000 Univers rol, 1-17 Units by ity of vitamin D2, 16:36: mouth. Servando s (VITAMIN D Medical ORAL) Branch aspirin 81 2021-09 Yes 81mg Take 81 mg U nivers mg chewable 1-17 by mouth ity of tablet 16:36: in the [place] [address] morning. Medical Branch clopidogreL 2021-09 Yes 75mg Take 75 mg Univers (PLAVIX) 75 -17 by mouth ity of mg tablet 16:36: in the [place] [address] morning. Medical Branch Levothyroxi 2021-09 Yes Take by Uni vers ne 75 mcg 1-17 mouth. ity of capsule 16:36: [place] [address] Medical Branch finasteride 2021-09 Yes 5mg Take 5 mg U nivers 5 mg tablet -17 by mouth ity of 16:36: in the [place] [address] morning. Medical Branch losartan 2021-09 Yes 100mg Take 100 Univ ers 100 mg 1-17 mg by ity of tablet 16:36: mouth in [place] [address] the Medical morning. Branch metFORMIN 2021-09 Yes 500mg Take 500 Uni vers 500 mg 1-17 mg by ity of tablet 16:36: mouth in [place] [address] the Medical morning Branch and 500 mg in the evening. Take with meals. lovastatin 2021-09 Yes 20mg Take 20 mg U nivers 20 mg 1-17 by mouth ity of tablet 16:36: at [place] [address] bedtime. Medical Branch tamsulosin 2021-09 Yes Take by Univ ers (FLOMAX) 1-17 mouth ity of 0.4 mg 24 16:36: daily. [facility] Medical Branch ergocalcife 2021-09 Yes 2000U Take 2,000 Univers rol, 1-17 Units by ity of vitamin D2, 16:36: mouth. Servando s (VITAMIN D Medical ORAL) Branch aspirin 81 2021-09 Yes 81mg Take 81 mg U nivers mg chewable 1-17 by mouth ity of tablet 16:36: in the [place] [address] morning. Medical Branch polyethylen 2021-09 Yes 17g [...] dose Medical on [facility] 08/13/22 at 0900, Until Discontinu ed, Routine losartan 2021-09 Yes 100mg 100 mg, Unive rs (COZAAR) 1-17 Oral, ity of tablet 100 15:00: DAILY, [place] mg 00 First dose Medical on [facility] 08/13/22 at 0900, Until Discontinu ed, Routine finasteride 2021-09 Yes 5mg 5 mg, Unive rs (PROSCAR) 1-17 Oral, ity of tablet 5 mg 15:00: [place] First [place] Medical on [facility] 08/13/22 at 0900, Until Discontinu ed, Routine clopidogreL 2021-09 Yes 75mg 75 mg, Univ ers (PLAVIX) 75 1-17 Oral, ity of mg tablet 15:00: DAILY, [place] 75 mg 00 First dose Medical on [facility] 08/13/22 at 0900, Until Discontinu ed, Routine aspirin 2021-09 Yes 81mg 81 mg, Univers chewable 1-17 Oral, ity of tablet 81 15:00: DAILY, [place] mg 00 First dose Medical on [facility] 08/13/22 at 0900, Until Discontinu ed, Routine enoxaparin 2021-09 Yes 40mg 40 mg, Unive rs (LOVENOX) 1-17 Subcutaneo ity of injection 15:00: [place] 40 [place] 00 First dose Medical on [facility] 08/13/22 at 0900, Until Discontinu ed, Routine Sliding 2021-09 Yes Subcutaneo Univ ers Scale 1-17 us, TID ity of Insulin - 14:00: MEALS+HS, [place] Lispro 00 First dose Medical (HumaLOG) + on [facility]sbg 08/13/22 Testing at 0800, Until Discontinu ed, Routine levothyroxi 2021-09 Yes 75ug 75 mcg, Uni vers ne 1-17 Oral, ity of (SYNTHROID) 12:00: QAM-0600, [place] tablet 75 00 First dose Medi balbina mcg on [facility] 08/13/22 at 0600, Until Discontinu ed dextrose [...] 25 Starting Medical injection 1 on [facility] 08/13/22 at 0039, Until Discontinu ed, VAUGHN, [...] 10-13 Oral, ity of (TYLENOL) 00:59: Q6HPRN, [place] tablet 650 59 Starting Medic al mg on Wed08/12/22 at 1859, Until Discontinu ed, Routine, Pain (scale 1-3) iopamidol 2021-09- No [id number] 100mL 100 mL, Univers (ISOVUE 10-12 Intravenou [...] (Patch) 00 :00 (Patch) meloxicam 2021- No [id number] 15mg Take 1 Univers 15 mg 05-19 [id number] tablet by ity of tablet 00:00: 04:59 mouth in [place] 00 :00 the [facility] for 30 days. meloxicam 2021- No [id number] 15mg Take 1 Univers 15 mg 05-19 [id number] tablet by ity of tablet 00:00: 04:59 mouth in [place] 00 :00 the [facility] for 30 days. meloxicam 2021- No [id number] 15mg Take 1 Univers 15 mg 05-19 [id number] tablet by ity of tablet 00:00: 04:59 mouth in [place] 00 :00 the [facility] for 30 days. methylPREDN Yes [id number] 84mg Take 21 Univers ISolone 5-23 9103 tablets by ity of (MEDROL, 00:00: mouth [place] MICHELE,) 4 mg 00 SEE-INSTRU Med ical tablets CTIONS. Branch follow package directions methylPREDN 0 Yes [id number] 84mg Take 21 Univers ISolone 5-23 9103 tablets by ity of (MEDROL, 00:00: mouth [place] IMCHELE,) 4 mg 00 SEE-INSTRU Med ical tablets CTIONS. Branch follow package directions methylPREDN 0 Yes [id number] 84mg Take 21 Univers ISolone 5-23 9103 tablets by ity of (MEDROL, 00:00: mouth [place] MICHELE,) 4 mg 00 SEE-INSTRU Med ical tablets CTIONS. Branch follow package directions methylPREDN 0 Yes [id number] 84mg Take 21 Univers ISolone 5-23 9103 tablets by ity of (MEDROL, 00:00: mouth [place] MICHELE,) 4 mg 00 SEE-INSTRU Med ical tablets CTIONS. Branch follow package directions methylPREDN 0 2021- No [id number] 84mg Take 21 Univers ISolone 5-23 11-17 [...] pirit e) e) 00:00: - CHI 00 [facility] Toradol Toradol 2021-0 No 30mg Common (Ketorolac) (Ketorolac) 4-11 S pirit 00:00: - CHI [facility] Rocephin Rocephin 2-0 No 1000mg Com mon (Ceftriaxon (Ceftriaxon 4-11 S pirit e) e) 00:00: - CHI [facility] Toradol Toradol 2021-0 No 30mg Common (Ketorolac) (Ketorolac) 4-11 S pirit 00:00: - CHI [facility] Rocephin Rocephin 2-0 No 1000mg Com mon (Ceftriaxon (Ceftriaxon 4-11 S pirit e) e) 00:00: - CHI [facility] Toradol Toradol 2-0 No 30mg Common (Ketorolac) (Ketorolac) 4-11 S pirit 00:00: - CHI [facility] Naproxen Naproxen 2-0 No BID Naproxen 500 MG 500 MG 4-11 500 MG 00:00: 00 Rocephin Rocephin 2-0 No 1000mg Com mon (Ceftriaxon (Ceftriaxon 4-11 S pirit e) e) 00:00: - CHI [facility] Toradol Toradol 2-0 No 30mg Common (Ketorolac) (Ketorolac) 4-11 S pirit 00:00: - CHI [facility] Naproxen Naproxen 2-0 No BID Naproxen 500 MG 500 MG 4-11 500 MG 00:00: 00 Rocephin Rocephin 2-0 No 1000mg Com mon (Ceftriaxon (Ceftriaxon 4-11 S pirit e) e) 00:00: - CHI 00 [facility] Toradol Toradol 2021-0 No 30mg Common (Ketorolac) (Ketorolac) 4-11 S pirit 00:00: - CHI 00 [facility] Rocephin Rocephin 2-0 No 1000mg Com mon (Ceftriaxon (Ceftriaxon 4-11 S pirit e) e) 00:00: - CHI 00 [facility] Toradol Toradol 2021-0 No 30mg Common (Ketorolac) (Ketorolac) 4-11 S pirit 00:00: - CHI 00 [facility] Rocephin Rocephin 2-0 No 1000mg Com mon (Ceftriaxon (Ceftriaxon 4-11 S pirit e) e) 00:00: - CHI [facility] Toradol Toradol 2021-0 No 30mg Common (Ketorolac) (Ketorolac) 4-11 S pirit 00:00: - CHI 00 [facility] Rocephin Rocephin 2-0 No 1000mg Com mon (Ceftriaxon (Ceftriaxon 4-11 S pirit e) e) 00:00: - CHI 00 [facility] Toradol Toradol 2021-0 No 30mg Common (Ketorolac) (Ketorolac) 4-11 S pirit 00:00: - CHI [facility] Rocephin Rocephin 2-0 No 1000mg Com mon (Ceftriaxon (Ceftriaxon 4-11 S pirit e) e) 00:00: - CHI [facility] Toradol Toradol 2021-0 No 30mg Common (Ketorolac) (Ketorolac) 4-11 S pirit 00:00: - CHI 00 [facility] Rocephin Rocephin 2-0 No 1000mg Com mon (Ceftriaxon (Ceftriaxon 4-11 S pirit e) e) 00:00: - CHI [facility] Toradol Toradol 2021-0 No 30mg Common (Ketorolac) (Ketorolac) 4-11 S pirit 00:00: - CHI 00 [facility] Rocephin Rocephin 2-0 No 1000mg Com mon (Ceftriaxon (Ceftriaxon 4-11 S pirit e) e) 00:00: - CHI 00 [facility] Toradol Toradol 2-0 No 30mg Common (Ketorolac) (Ketorolac) 4-11 S pirit 00:00: - CHI 00 [facility] Rocephin Rocephin 2-0 No 1000mg Com mon (Ceftriaxon (Ceftriaxon 4-11 S pirit e) e) 00:00: - CHI 00 [facility] Toradol Toradol 2021-0 No 30mg Common (Ketorolac) (Ketorolac) 4-11 S pirit 00:00: - CHI 00 [facility] Rocephin Rocephin 2-0 No 1000mg Com mon (Ceftriaxon (Ceftriaxon 4-11 S pirit e) e) 00:00: - CHI 00 [facility] Toradol Toradol 2021-0 No 30mg Common (Ketorolac) (Ketorolac) 4-11 S pirit 00:00: - CHI 00 [facility] Amoxicillin Amoxicillin 2021-0 2021- No 1{table BID [...] Yes Regina 1 capsule Common HCl HCl [place] Spirit - CHI [facility] metFORMIN metFORMIN No metFORMIN HCl 500 MG [...] blood 2022-08-13 17:39:00 151 mm[Hg] Univer sity [facility] Diastolic blood 2022-08-13 17:39:00 94 mm[facility]Hg[facility] 2022-08-13 17:39:00 82 /min [facility] Body temperature 2022-08-13 17:39:00 36.33 Annmarie [facility] Respiratory rate 2022-08-13 17:39:00 18 /min [facility] Oxygen saturation in 2022-08-13 17:39:00 96 /min [facility] Arterial blood by [facility] Pulse oximetry Branch Body weight 2022-08-13 09:43:00 89.994 kg [facility] BMI 2022-08-13 09:43:00 29.30 kg/m2 [facility] Body height 2022-08-13 01:42:00 175.3 cm [facility] height 2022-06-19 11:00:00 69.5 [in_i] [facility] weight 2022-06-19 11:00:00 212 [lb_av] [facility] temperature 2022-06-19 11:00:00 98.6 [degF] Common S pirit [facility] bmi 2022-06-19 11:00:00 30.85 kg/m2 Common [facility] oximetry 2022-06-19 11:00:00 96 % Common [facility] respiratory rate 2022-06-19 11:00:00 17 /min Comm on [facility] blood pressure 2022-06-19 11:00:00 134 mm[Hg] Common [facility] - systolic [facility] blood pressure 2022-06-19 11:00:00 80 mm[Hg] Common Spirit - diastolic [facility] height 2022-06-19 10:40:00 69.5 [in_i] Common S [facility] weight 2022-06-19 10:40:00 212 [lb_av] [facility] temperature 2022-06-19 10:40:00 98.6 [degF] Common [facility] bmi 2022-06-19 10:40:00 30.85 kg/m2 [facility] oximetry 2022-06-19 10:40:00 96 % [facility] respiratory rate 2022-06-19 10:40:00 17 /min Comm on [facility] blood pressure 2022-06-19 10:40:00 134 mm[Hg] Common [facility] - systolic [facility] blood pressure 2022-06-19 10:40:00 80 mm[Hg] Common Spirit - diastolic [facility] height 2022-06-15 11:20:00 69.5 [in_i] Common S [facility] weight 2022-06-15 11:20:00 212 [lb_av] Common S [facility] temperature 2022-06-15 11:20:00 98.2 [degF] Common [facility] bmi 2022-06-15 11:20:00 30.85 kg/m2 Common S [facility] oximetry 2022-06-15 11:20:00 97 % Common S [facility] respiratory rate 2022-06-15 11:20:00 16 /min Comm on [facility] blood pressure 2022-06-15 11:20:00 134 mm[Hg] Common [facility] - systolic [facility] blood pressure 2022-06-15 11:20:00 76 mm[Hg] Common [facility] - diastolic [facility] Body height 2022-05-19 13:09:00 175.3 cm [facility] Body weight 2022-05-19 13:09:00 95.255 kg [facility] BMI 2022-05-19 13:09:00 31.01 kg/m2 [facility] height 2022-02-04 09:20:00 69.5 [in_i] Common [facility] weight 2022-02-04 09:20:00 211.8 [lb_av] [facility] temperature 2022-02-04 09:20:00 97.5 [degF] Common S [facility] bmi 2022-02-04 09:20:00 30.83 kg/m2 [facility] oximetry 2022-02-04 09:20:00 95 % Common S [facility] respiratory rate 2022-02-04 09:20:00 16 /min Comm on [facility] blood pressure 2022-02-04 09:20:00 134 mm[Hg] Common [facility] - systolic [facility] blood pressure 2022-02-04 09:20:00 78 mm[Hg] Common [facility] - diastolic [facility] height 2022-01-05 14:40:00 69.5 [in_i] Common S [facility] weight 2022-01-05 14:40:00 210.4 [lb_av] [facility] temperature 2022-01-05 14:40:00 98.1 [degF] [facility] bmi 2022-01-05 14:40:00 30.62 kg/m2 Common [facility] oximetry 2022-01-05 14:40:00 97 % [facility] respiratory rate 2022-01-05 14:40:00 16 /min Comm on [facility] blood pressure 2022-01-05 14:40:00 138 mm[Hg] Common [facility] - systolic [facility] blood pressure 2022-01-05 14:40:00 74 mm[Hg] Common [facility] - diastolic [facility] blood pressure 2021-12-22 08:40:00 78 mm[Hg] Common [facility] - diastolic [facility] height 2021-12-22 08:40:00 69.5 [in_i] Common [facility] weight 2021-12-22 08:40:00 216.8 [lb_av] [facility] temperature 2021-12-22 08:40:00 97.5 [degF] [facility] bmi 2021-12-22 08:40:00 31.55 kg/m2 [facility] oximetry 2021-12-22 08:40:00 97 % Common [facility] respiratory rate 2021-12-22 08:40:00 16 /min Comm on [facility] blood pressure 2021-12-22 08:40:00 136 mm[Hg] Common [facility] systolic [facility] height 2021-08-26 16:00:00 69.5 [in_i] Common [facility] weight 2021-08-26 16:00:00 213.2 [lb_av] [facility] temperature 2021-08-26 16:00:00 98.3 [degF] [facility] bmi 2021-08-26 16:00:00 31.03 kg/m2 [facility] oximetry 2021-08-26 16:00:00 97 % Common [facility] respiratory rate 2021-08-26 16:00:00 16 /min Comm on [facility] blood pressure 2021-08-26 16:00:00 130 mm[Hg] Common [facility] - systolic [facility] blood pressure 2021-08-26 16:00:00 72 mm[Hg] [facility] diastolic [facility] height 2021-06-24 08:00:00 69.5 [in_i] [facility] weight 2021-06-24 08:00:00 221.8 [lb_av] [facility] temperature 2021-06-24 08:00:00 99.0 [degF] [facility] bmi 2021-06-24 08:00:00 32.28 kg/m2 [facility] oximetry 2021-06-24 08:00:00 97 % [facility] respiratory rate 2021-06-24 08:00:00 16 /min Comm on [facility] blood pressure 2021-06-24 08:00:00 138 mm[Hg] [facility] systolic [facility] blood pressure 2021-06-24 08:00:00 88 mm[Hg] [facility] diastolic [facility] Procedures Procedure Date / Time Performing Clinician Source Performed TRANSTHORACIC ECHO (TTE) 2022-08-13 20:02:00 Andre David [facility] COMPLETE W/ CONTRAST Medical [facility] POCT GLUCOSE (AUTOMATED) 2022-08-13 17:40:00 Alexandre Montemayor [facility] POCT GLUCOSE (AUTOMATED) 2022-08-13 13:32:00 Alexandre Montemayor [facility] MAGNESIUM 2022-08-13 09:50:00 Alexandre Montemayor [facility] BASIC METABOLIC PANEL 2022-08-13 09:50:00 Alexandre Montemayor [facility] (NA, K, CL, CO2, Medical Branch GLUCOSE, BUN, CREATININE, CA) CBC WITH DIFF 2022-08-13 09:50:00 Alexandre Montemayor [facility] PHOSPHORUS 2022-08-13 03:53:00 [facility] TROPONIN I 2022-08-13 02:32:00 [facility] POCT GLUCOSE (AUTOMATED) 2022-08-13 01:22:00 Alexandre Montemayor [facility] CT ANGIOGRAM CHEST 2022-08-12 19:53:05 Leonora Ruby [facility] CT ANGIOGRAM 2022-08-12 19:53:05 [facility]PELVIS [facility] HB ECG ROUTINE & RHYTHM 2022-08-12 19:09:59 Leonora Ruby [facility] TROPONIN I 2022-08-12 19:08:00 [facility]HYTHM 2022-08-12 18:01:56 eLonora Ruby [facility] LIPASE 2022-08-12 17:05:00 [facility] 2022-08-12 17:05:00 [facility]. METABOLIC PANEL 2022-08-12 17:05:00 Leonora Ruby [facility] ([id number]) [facility] CBC WITH DIFF 2022-08-12 17:05:00 [facility] GLYCOS[facility] HEMOGLOBIN 2022-08-12 17:05:00 Andre David [facility] (A1C) [facility] PROTHROMBIN TIME / INR 2022-08-12 17:05:00 Leonora Ruby [facility] URINALYSIS 2022-08-12 17:05:00 Tung [facility] N-TERMINAL PRO-BNP 2022-08-12 17:05:00 Leonora Ruby [facility] HB ECG ROUTINE & RHYTHM 2022-08-12 16:51:46 Leonora Ruby [facility] CONSENT/REFUSAL FOR 2022-08-12 16:16:12 Doctor Unassigned, No Un [facility] DIAGNOSIS AND TREATMENT Name Medical Branch REFERRAL- 2022-06-16 05:01:00 Doctor Unassigned, Elizabet Menendez [facility] REQUEST/RESPONSE Name Medical Branch CT, urogram 2018-07-07 00:00:00 Pietro [facility] Plan of Care Planned Activity Planned Date Details Comments Source Diagnostic Test 2018-07-07 cytology, urine [facility] Pending 00:00:00 [code = cytology, Group urine] Encounters Start End Encounter Admission Attending Care Care Encounter Source Date/Time Date/Time Type Type Clinicians Facility Department ID 2022-09-15 Outpatient Oliveira, STLMLC STLMLC [id number] Common 09:28:02 [facility] 37758 [facility] 2021-10-22 Outpatient Oliveira, STLMLC STLMLC [id number] Common 14:27:24 Maira 30384 [facility] 2021-10-22 Outpatient Oliveira, STLMLC STLMLC [id number] Common 14:18:00 [facility] 84728 [facility] 2021-10-22 Outpatient Oviedo, STLMLC STLMLC [id number] Common 13:35:45 Regina 56866 [facility] 2021-10-22 Outpatient Oviedo, STLMLC STLMLC [id number] Common 12:41:58 Regina 04191 [facility] 2021-10-22 Outpatient [place], STLMLC STLMLC [id number] Common 12:40:52 Regina 86834 [facility] 2021-10-22 Outpatient [place], STLMLC STLMLC [id number] Common 12:12:33 Regina 77948 [facility] 2021-10-22 Outpatient Oviedo, STLMLC STLMLC [id number] Common 11:56:49 Regina 94374 [facility] 2021-10-22 Outpatient [place], STLMLC STLMLC [id number] Common 11:56:09 Regina 11231 [facility] 2021-10-22 Outpatient [place], STLMLC STLMLC [id number] Common 11:21:52 Regina 96447 [facility] 2021-10-22 Outpatient [place]vied[place], STLMLC STLMLC [id number] Common 11:07:15 Regina 46048 [facility] 2021-10-22 Outpatient [place], STLMLC STLMLC [id number] Common 11:06:53 Regina 04126 [facility] 2021-10-22 Outpatient [place], STLMLC STLMLC [id number] Common 10:59:53 Regina 22378 [facility] 2021-07-28 Emergency [facility] [id number] Univers 23:28:16 ity of [facility] 2022-10-28 2022-10-28 (TEL) STLMLC STLMLC [id number] Co mmon 00:00:00 00:00:00 [facility] 2022-08-14 2022-08-14 (TEL) STLMLC STLMLC [id number] Co mmon 00:00:00 00:00:00 [facility] 2022-08-14 2022-08-14 Transition ELIUD Rice 1.2.840.114 [id number] Univers 00:00:00 00:00:00 of Judah ELAM 350.1.13.10 it y of [place] 4.2.7.2.686 Servando servin [phone] [facility] 403 Branch 2022-08-12 2022-08-13 Outpatient X LUCERO [facility] [id number] Univers 10:44:00 16:22:00 EARL ity [facility] 2022-08-12 2022-08-13 Emergency RubyLeonora pappas [facility] 1.2.840 .114 [id number] Univers 10:44:00 16:22:00 Alexandre Montemayor 350.1.13.10 ity of [place] 4.2.7.2.686 [facility] [phone] [facility] 081 Branch 2022-06-22 2022-06-22 (TEL) STLMLC STLMLC [id number] Co mmon 00:00:00 00:00:00 [facility] 2022-06-19 2022-06-19 (MCR WELL) [facility] [id number] Common 00:00:00 00:00:00 Medicare Spiri t Wellness - [facility] 2022-06-19 2022-06-19 OFFICE [facility] [id number] Co mmon 00:00:00 00:00:00 VISIT EST Spir it PT LEVEL 3 [facility] 2022-06-16 2022-06-16 Orders Doctor MEGAN 1.2.840.114 [id number] Univers 00:00:00 00:00:00 Only Unassigned, ANASTASIA 350.1.13.10 ity of [place] [facility] 4.2.7.2.686 Ty as [phone] [address] 2022-06-15 2022-06-15 OFFICE [facility] [id number] Co mmon 00:00:00 00:00:00 VISIT EST Spir it PT LEVEL 3 [facility] 2022-05-21 2022-05-21 Telephone [facility] 1.2.840.114 [id number] Univers 00:00:00 00:00:00 Wallace L HEALTH 350.1.13.10 it y of [facility] 4.2.7.2.686 Ty as MANOJ?BLEA [phone] Al richardtanja [address] OFFICE [facility] 2022-05-19 2022-05-19 Office [facility] 1.2.840.114 [id number] Univers 08:45:00 09:00:00 Visit [facility] HEALTH 350.1.13.10 it y of [place] 4.2.7.2.686 Ty as MANOJ?BLEA [id number] Al richard[address] OFFICE [facility] 2022-05-19 2022-05-19 Outpatient Alec SCHAFFER [facility] [id number] Univers 08:45:00 08:45:00 BRIAN chinchilla [facility] 2022-05-19 2022-05-19 Outpatient Alec SCHAFFER [facility] [id number] Univers 08:45:00 08:45:00 BRIAN chinchilla [facility] 2022-05-16 2022-05-16 Outpatient R RADIOLOGY [facility] [id number] Univers 07:47:58 23:59:00 ity of [facility] 2022-05-16 2022-05-16 Hospital Radiology [facility] 1.2.840.114 [id number] Univers 07:47:58 23:59:00 Encounter [place] 350.1.13.10 [facility]y [facility] 4.2.7.2.686 [place] [id number] [facility] 801 Branch 2022-05-16 2022-05-16 Outpatient R RADIOLOGY [facility] [id number] Univers 07:47:58 23:59:00 ity of [facility] 2022-05-14 2022-05-14 [facility] Radiology [facility] 1.2.840.114 [id number] Univers 08:30:00 08:30:00 Encounter Y HEALTH 350.1.13.[address] [facility] 4.2.7.2.686 [place] [id number] [facility] 803 Branch 2022-05-14 2022-05-14 Outpatient R RADIOLOGY [facility] [id number] Univers 00:00:00 00:00:00 ity of [facility] 2022-05-14 2022-05-14 Outpatient R RADIOLOGY [facility] [id number] Univers 00:00:00 00:00:00 ity of [facility] 2022-05-12 2022-05-12 [facility] 1.2.840.114 [id number] Univers 00:00:00 00:00:00 Wallace L HEALTH 350.1.13.10 it y of [facility] 4.2.7.2.686 Ty as MANOJ?BLEA [id number] [address] MEDICAL OFFICE BUILDING 2022-05-11 2022-05-11 [facility] [id number] Univers 15:14:20 23:59:00 WALLACE ity of [facility] 2022-05-11 2022-05-11 [facility] 1.2.840.114 [id number] Univers 15:14:20 23:59:00 Encounter Wallace L [place] 350.1.13.10 ity [facility] 4.2.7.2.686 [place] [facility] [phone] [facility] [address] 2022-05-11 2022-05-11 Office [facility] 1.2.194.071 [id number] Univers 14:45:00 14:45:00 Visit Wallace Edge [facility] 350.1.13.10 it y of [place] 4.2.7.2.686 Ty as MANOJ?BLEA [phone] Al nikita THOMPSON [address] [place] [address] OFFICE [facility] 2022-05-11 2022-05-11 Out[facility] [id number] Univers 14:45:00 14:34:12 [facility] 2022-05-07 2022-05-07 Telephone [facility] 1.2.840.114 [id number] Univers 00:00:00 00:00:00 Wallace Edge [facility] 350.1.13.10 it y of [place] 4.2.7.2.686 Ty as MANOJ?BLEA [phone] Al nikita THOMPSON [address] [place] [address] 2022-03-05 2022-03-05 (TEL) STLC [facility] [id number] Co mmon 00:00:00 00:00:00 [facility] 2022-03-03 2022-03-03 [facility] [id number] Univers 13:04:32 23:59:00 [facility] 2022-03-03 2022-03-03 Office [facility] 1.2.840.114 [id number] Univers 13:45:00 14:00:00 Visit [facility] 350.1.13.10 it y of [facility] 4.2.7.2.686 Ty as MANOJ?BLEA [phone] Al nikita THOMPSON [address] [place] [address] 2022-03-03 2022-03-03 Outpatient [facility] [id number] Univers 13:45:00 13:45:00 [facility] 2022-02-16 2022-02-16 Outpatient Alec [facility] [id number] Univers 13:27:13 23:59:00 BRIAN itsaleem [facility] 2022-02-16 2022-02-16 Outpatient R [facility] [id number] Univers 13:27:13 23:59:00 BRIAN chinchilla [facility] 2022-02-16 2022-02-16 Office [facility] 1.2.840.114 [id number] Univers 13:45:00 14:00:00 Visit Brian Servin HEALTH 350.1.13.10 it y of [facility] 4.2.7.2.686 Ty as MANOJ?BLEA [phone] Al nikita JULIO[address] OFFICE [facility] 2022-02-16 2022-02-16 Outpatient [facility] [id number] Univers 13:45:00 13:45:00 BRIAN chinchilla [facility] 2022-02-16 2022-02-16 Orders Doctor MEGAN 1.2.840.114 [id number] Univers 00:00:00 00:00:00 Only Unassigned, ANASTASIA 350.1.13.10 ity of [place] [facility] 4.2.7.2.686 Ty as [phone] [address] 2022-02-16 2022-02-16 Telephone [facility] 1.2.570.804 [id number] Univers 00:00:00 00:00:00 Brian Servin HEALTH 350.1.13.10 it y of [place] 4.2.7.2.686 Ty as MANOJ?BLEA [id number] Al nikita [address] OFFICE [facility] 2022-02-05 2022-02-05 Orders Doctor MEGAN 1.2.840.114 [id number] Univers 00:00:00 00:00:00 Only Unassigned, ANASTASIA 350.1.13.10 ity of [place] [facility] 4.2.7.2.686 Ty as [phone] [address] 2022-02-04 2022-02-04 OFFICE [facility] [id number] Co mmon 00:00:00 00:00:00 VISIT EST Spir it PT LEVEL 3 - [facility] 2022-01-19 2022-01-19 (TEL) STLMLC STLMLC [id number] Co mmon 00:00:00 00:00:00 [facility] 2022-01-05 2022-01-05 OFFICE STLMLC STLMLC [id number] Co mmon 00:00:00 00:00:00 VISIT EST Spir it PT LEVEL 3 - [facility] 2021-12-22 2021-12-22 OFFICE STLMLC STLMLC [id number] Co mmon 00:00:00 00:00:00 VISIT Spirit ESTAB PT - CHI LEVEL 4 [facility] 2021-11-20 2021-11-20 (TEL) STLMLC STLMLC [id number] Co mmon 00:00:00 00:00:00 [facility] 2021-10-21 2021-10-21 (TEL) STLMLC STLMLC [id number] Co mmon 00:00:00 00:00:00 [facility] 2021-10-02 2021-10-02 (TEL) STLMLC STLMLC [id number] Co mmon 00:00:00 00:00:00 [facility] 2021-09-26 2021-09-26 Outpatient SAAD, MHHERON MHBL [id number] MHBL 08:19:00 13:21:00 [place] 2021-09-12 2021-09-12 (TEL) STLMLC STLMLC [id number] Co mmon 00:00:00 00:00:00 [facility] 2021-09-08 2021-09-08 (TEL) STLMLC STLMLC [id number] Co mmon 00:00:00 00:00:00 [facility] 2021-09-02 2021-09-02 Outpatient Alec [facility] OPH [id number] Univers 06:24:00 09:17:00 CHE estrada [facility] 2021-09-02 2021-09-02 [facility] 1.2.840.114 [id number] Univers 06:24:00 09:17:00 [facility] 350.1.13.10 [place].2.[place] SUR[place]ICAL [phone] [facility] 020 Branch 2021-09-02 2021-09-02 Surgery Niurka [facility] 1.2.061.337 [id number] Univers 07:30:00 08:31:00 Che CORDERO 350.1.13.10 ity of [place]2.7.2.686 [place] SURGICAL [phone] [facility] 020 Branch 2021-09-01 2021-09-01 Outpatient R NIURKA [facility] [id number] Univers 09:45:00 09:45:00 CHE chinchilla [facility] 2021-09-01 2021-09-01 Laboratory Only, Adc Test [facility] 1.2.840. 114 [id number] Univers 08:58:02 09:13:02 Only Che Bah 350.1.13. 10 ity of [place]2.7.2.686 [place] [facility] [phone] [facility] 353 Branch 2021-09-01 2021-09-01 (TEL) STLMLC STLMLC [id number] Co mmon 00:00:00 00:00:00 [facility] 2021-09-01 2021-09-01 Orders Doctor MEGAN 1.2.840.114 [id number] Univers 00:00:00 00:00:00 Only Unassigned, ANASTASIA 350.1.13.10 ity of [place] [facility] 4.2.7.2.686 Ty as [phone] [facility] 009 Branch 2021-08-26 2021-08-26 OFFICE STLMLC STLMLC [id number] Co mmon 00:00:00 00:00:00 VISIT EST Spir it PT LEVEL 3 - [facility] 2021-08-19 2021-08-19 (TEL) STLMLC STLMLC [id number] Co mmon 00:00:00 00:00:00 [facility] 2021-08-13 2021-08-13 Outpatient Alec SCHAFFER [facility] [id number] Univers 13:15:00 13:15:00 BRIAN chinchilla [facility] 2021-08-13 2021-08-13 Office [facility] 1.2.840.114 [id number] Univers 12:47:28 13:02:28 Visit Brian Servin HEALTH 350.1.13.10 it y of [place] 4.2.7.2.686 Ty as MANOJ?BLEA [phone] Al dictanja KNEY 198 [facility][note 2] 2021-08-13 2021-08-13 Telephone [facility] 1.2.840.114 [id number] Univers 00:00:00 00:00:00 Wallace Edge HEALTH 350.1.13.10 it y of SURGICAL 4.2.7.2.686 Ty as SPECIALTI [phone] Al dical JAKE 198 [facility] 2021-07-29 2021-07-29 (TEL) STLMLC STLMLC [id number] Co mmon 00:00:00 00:00:00 [facility] 2021-07-25 2021-07-25 (TEL) STLMLC STLMLC [id number] Co mmon 00:00:00 00:00:00 [facility] 2021-07-21 2021-07-21 [facility] 1.2.840.114 [id number] Univers 13:35:00 23:59:00 Encounter Wallace Tejeda 350.1.13.10 ity of [place] 4.2.7.2.686 Ty as Manoj?Blea [id number] Al nikita thompson [address] [facility] 2021-07-21 2021-07-21 [facility] [id number] Univers 13:35:00 23:59:00 WALLACE chinchilla [facility] 2021-07-21 2021-07-21 [facility] [id number] Univers 13:30:00 14:45:07 WALLACE chinchilla [facility] 2021-07-21 2021-07-21 Office [facility] 1.2.786.286 [id number] Univers 13:00:10 14:45:07 Visit Wallace TEJEDA 350.1.13.10 it y of [place] 4.2.7.2.686 Ty as MANOJ?BLEA [phone] Al nikita HILDA [address] [place] [address] MEDICAL OFFICE BUILDING 2021-07-21 2021-07-21 Outpatient Alec DOTSON [facility] [id number] Univers 13:30:00 13:30:00 WALLACE saleem [facility] 2021-07-21 2021-07-21 (TEL) STLMLC STLMLC [id number] Co mmon 00:00:00 00:00:00 [facility] 2021-07-11 2021-07-11 (TEL) STLMLC STLMLC [id number] Co mmon 00:00:00 00:00:00 [facility] 2021-07-11 2021-07-11 OFFICE STLMLC STLMLC [id number] Co mmon 00:00:00 00:00:00 VISIT [facility] PT - CHI LEVEL 1 [facility] 2021-06-29 2021-06-29 (TEL) STLMLC STLMLC [id number] Co mmon 00:00:00 00:00:00 [facility] 2021-06-24 2021-06-24 OFFICE STLMLC STLMLC [id number] Co mmon 00:00:00 00:00:00 VISIT [facility] PT - CHI LEVEL 4 [facility] 2021-06-13 2021-06-13 Emergency [facility] 1.2.840.114 [id number] Univers 14:19:00 18:37:00 Shannon Cordero 350.1.13.10 [facility] 4.2.7.2.686 [place] [facility] [phone] [address] 2021-06-06 2021-06-06 Outpatient STLMLC STLMLC [id number] Common 00:00:00 00:00:00 [facility] 2021-05-05 2021-05-05 Outpatient STLMLC STLMLC [id number] Common 00:00:00 00:00:00 [facility] 2021-04-30 2021-04-30 Outpatient STLMLC STLMLC [id number] Common 00:00:00 00:00:00 [facility] 2021-04-30 2021-04-30 Outpatient STLMLC STLMLC [id number] Common 00:00:00 00:00:00 [facility] 2021-04-25 2021-04-25 Outpatient STLMLC STLMLC [id number] Common 00:00:00 00:00:00 [facility] 2021-04-03 2021-04-03 Outpatient STLMLC STLMLC [id number] Common 00:00:00 00:00:00 [facility] 2021-01-24 2021-01-24 Outpatient STLMLC STLMLC [id number] Common 00:00:00 00:00:00 [facility] 2021-01-17 2021-01-17 Outpatient STLMLC STLMLC [id number] Common 00:00:00 00:00:00 [facility] 2021-01-13 2021-01-13 Outpatient STLMLC STLMLC [id number] Common 00:00:00 00:00:00 [facility] 2021-01-10 2021-01-10 Outpatient STLMLC STLMLC [id number] Common 00:00:00 00:00:00 [facility] 2020-12-31 2020-12-31 Outpatient STLMLC STLMLC [id number] Common 00:00:00 00:00:00 [facility] 2020-12-25 2020-12-25 [facility] [id number] [facility] 13:45:00 13:45:00 [facility] 2020-12-25 2020-12-25 Office [facility] 1.2.733.552 [id number] 12:51:24 13:25:03 Visit [facility] 350.1.13.10 [facility] 4.2.7.2.686 [facility] [phone] [address] 2020-12-23 2020-12-23 Outpatient [facility] [id number] Univers 13:45:00 13:45:00 [facility] 2020-12-232020-12-23 Outpatient STLMLC STLMLC [id number] Common 00:00:00 00:00:00 [facility] 2020-12-21 2020-12-21 Outpatient STLMLC STLMLC [id number] Common 00:00:00 00:00:00 [facility] 2020-12-19 2020-12-19 Outpatient STLMLC STLMLC [id number] Common 00:00:00 00:00:00 [facility] 2020-12-17 2020-12-17 Outpatient STLMLC STLMLC [id number] Common 00:00:00 00:00:00 [facility] 2020-12-17 2020-12-17 Outpatient STLMLC STLMLC [id number] Common 00:00:00 00:00:00 [facility] 2020 2020 Outpatient STLMLC STLMLC [id number] Common 00:00:00 00:00:00 [facility] 2020-12-09 2020-12-09 Outpatient STLMLC STLMLC [id number] Common 00:00:00 00:00:00 [facility] 2020-11-07 2020-11-07 Outpatient STLMLC STLMLC [id number] Common 00:00:00 00:00:00 [facility] 2020-11-04 2020-11-04 Outpatient STLMLC STLMLC [id number] Common 00:00:00 00:00:00 [facility] 2020-11-04 2020-11-04 Outpatient STLMLC STLMLC [id number] Common 00:00:00 00:00:00 [facility] 2020-10-15 2020-10-15 Outpatient SAAD [facility] [id number] [facility] 07:11:00 12:00:00 [place] 2020-09-09 2020-09-09 Outpatient STLMLC STLMLC [id number] Common 00:00:00 00:00:00 [facility] 2020-08-14 2020-08-14 Outpatient Young_J MMG MMG [id number] [place] 02:37:00 02:37:00 [facility] 2020-07-16 2020-07-16 Outpatient STLMLC STLMLC [id number] Common 00:00:00 00:00:00 [facility] 2020-07-04 2020-07-04 Outpatient Alec DOTSON [facility] [id number] Univers 08:00:00 08:00:00 [facility] 2020-05-06 2020-05-06 [facility] [id number] Common 10:52:00 10:52:00 [facility] [address] [facility] 2020-04-15 2020-04-15 Outpatient Alec SCHAFFER [facility] [id number] Univers 15:45:00 15:45:00 [facility] 2020-04-11 2020-04-11 Outpatient Alec DOTSON [facility] [id number] Univers 15:30:00 15:30:00 [facility] 2020-04-10 2020-04-10 Outpatient [facility] [id number] Common 13:19:00 13:19:00 [facility] [address] [facility] 2020-04-08 2020-04-08 Outpatient [facility] [id number] Common 11:08:00 11:08:00 [facility] [address] [facility] 2020-04-05 2020-04-05 Outpatient [facility] [id number] Common 18:34:00 18:34:00 [facility] [address] [facility] 2020-03-07 2020-03-07 [facility] [id number] Univers 15:00:00 15:00:00 [facility] 2020-01-09 2020-01-09 Outpatient [facility] [id number] Common 14:23:00 14:23:00 [facility] [address] [facility] 2020-01-08 2020-01-08 Outpatient [facility] [id number] Common 08:00:00 08:00:[address] [facility] 2019-11-22 2019-11-22 Outpatient [facility] [id number] Common 19:45:00 19:45:[address] [facility] 2019-11-08 2019-11-08 Outpatient [facility] [id number] Common 09:12:00 09:12:[address] [facility] 2019-11-07 2019-11-07 Outpatient [facility] [id number] Common 08:17:00 08:17:[address] [facility] 2019-10-19 2019-10-19 Outpatient [facility] [id number] Common 15:57:00 15:57:[address] [facility] 2019-10-18 2019-10-18 Outpatient [facility] [id number] Common 09:24:00 09:24:[address] [facility] 2019-10-17 2019-10-17 Outpatient [facility] [id number] Common 09:00:00 09:00:[address] [facility] 2019-10-11 2019-10-11 Outpatient [facility] [id number] Univers 15:30:52 15:30:00 [facility] [place] 2019-10-09 2019-10-09 Outpatient [facility] [id number] Common 10:27:00 10:27:[address] [facility] 2019-10-09 2019-10-09 Outpatient [facility] [id number] Common 09:00:00 09:00:[address] [facility] 2018-08-08 2018-08-08 Saravanan RINCON [place] - [id number] M rogelio 00:00:00 00:00:00 DO Terrance: Discovery hasmukh ramon [address] [place] [address] Network Group [facility] - [address], [facility] [address] , Ph. [phone] 2018-08-04 2018-08-04 Jose R[place]CON [place] - [id number] M atagor 00:00:00 00:00:00 MD Bobbi: Bustle [address], [place] [address] , Ph. 2018-07-07 2018-07-07 Jose RINCON [place] - [id number] M atagor 00:00:00 00:00:00 MD Bobbi: [facility]ustle [address] - [address], [place] [address] , Ph. Results Test Description Test Time Test Comments Results Result Comments Source Transthoracic echo (TTE) 2022-08-13 22:32:11 Test Item Value Reference Range Interpretation Comme nts Height (test code = 4361449397) in Weight (test code = 5356125893) lbs Systolic BP (test code = 2027348018) mmHg Diastolic BP (test code = 5766776581) mmHg Heart Rate (test code = 9402528437) bpm BSA (test code = 2326404135) 2.06 m2 Ao root diam (test code = 7876762641) 4.10 cm Aortic root (test code = 7003357113) 4.1 cm Ao root annulus (test code = 4.1 cm 2195507546) LVOT diameter (test code = 6957549068) 2.13 cm LVOT area (test code = 8833141254) 3.60 cm2 LA size (test code = 0645653315) 2.7 cm LAV(MOD-sp4) (test code = 9985905508) 46.70 mL E wave decelartion time (test code = 0.17 s 2409152701) MV stenosis pressure 1/2 time (test 51.2 ms code = 7205614068) MV Peak A Bobby (test code = 4891584868) 65.7 cm/s MV Peak E Bobby (test code = 6656189777) 52.5 cm/s E/A ratio (test code = 8876414665) ratio MV Prop V (test code = 2162603123) 58.90 cm/s MV E/e' septal (test code = 8.6 cm/s 6938167563) Tapse (test code = 3566984606) 2.07 cm LVOT stroke volume (test code = 56.50 cm3 9938175620) LVOT peak bobby (test code = 1144121669) 83.0 cm/s LVOT mn grad (test code = 0553422131) mmHg AV LVOT peak gradient (test code = mmHg [id number]) LVOT peak VTI (test code = 6323778432) 15.9 cm LV V1 mean (test code = 1448903189) 57.80 cm/s Aortic valve mean velocity (test code 86.0 cm/s = 8547995871) Ao peak bobby (test code = 6806017399) 113.0 cm/s Ao VTI (test code = 8044823362) 21.8 cm AV area by cont VTI (test code = 2.6 cm2 3412048991) AV area peak bobby (test code = 2.6 cm2 2544414729) Ao max PG (test code = 4615199587) 5.10 mm[Hg] AV peak gradient (test code = mmHg 4723538264) AV valve area (test code = 9670122060) 2.60 cm2 AV mean gradient (test code = mmHg 7971292953) LVIDD (test code = 6076367584) 4.80 cm Left Ventricular End Diastolic Volume 109.8 mL by Teichholz Method (test code = 2760938) IVS (test code = 0321080096) 1.03 cm Interventricular Septum Diastolic 1.03 cm Thickness by 2D (test code = 3447988) LVPWD (test code = 1495059120) 1.04 cm PW (test code = 3635380410) 1.04 cm 0.6-1.1 EF(Teich) (test code = 8146749504) 64.10 % LVIDS (test code = 2532951714) 3.20 cm Left Ventricular End Systolic Volume 39.4 mL by Teichholz Method (test code = 7948828) FS (test code = 2383062693) 35 % EF - 2D (test code = 21181096) 64.10 % Radiology Study observation (narrative) (test code = 07733-5) SOFIYA (test code = SOFIYA) ?Left?Ventricle: Left [...] mL of Lumason ultrasound enhancing agent used. [facility] GLUCOSE (AUTOMATED)2022-08-13 18:19:00 Test Item Value Reference Range Interpretation Comments POCT GLU (test code = 9878082120) 196 mg/dL 70-110 H Lab Interpretation (test code = Abnormal 91214-8) [facility] GLUCOSE (AUTOMATED)2022-08-13 13:59:31 Test Item Value Reference Range Interpretation Comments POCT GLU (test code = 3739257002) 146 mg/dL 70-110 H Lab Interpretation (test code = Abnormal 40104-6) [facility] 01:25:38 Test Item Value Reference Range Interpretation Comments POCT GLU (test code = 2462768671) 102 mg/dL 70-110 Lab Interpretation (test code = Normal 57904-7) [facility] [id number] 19:44:37 Test Item Value Reference Interpretation Comments Range TROPONIN I (test 0.004 ng/mL See_Comment [Automated code = 9384133869) message] The system which generated this result [...] biotin. Lab Interpretation Normal (test code = 99463-3) [facility] AntigenSARS-COV 2 Antigen
[2022-11-30] MEDS ORDERED: CYCLOBENZAPRINE 10 MG TAB ONE (13:14)
[2022-11-30] MEDS ORDERED: ONDANSETRON 4 MG/2 ML VIAL ONE (13:15)
[2022-11-30] MEDS ORDERED: MORPHINE 4 MG/ML SYR ONE (13:15)
[2022-11-30] MEDS ORDERED: LABETALOL HCL 100 MG/20 ML ONE (13:15)
[2022-11-30 13:23] LABS: Absolute Lymphocytes (CBC) 1.6 K/uL (0.7-4.9); Hematocrit 41.2 % (39.6-49.0); Lymphocytes % 24.4 % (15.3-44.8); MCV 83.9 fL (80-100); MPV 7.6 fL (7.6-11.3); RBC Red Blood Cell Count 4.91 M/uL (4.33-5.43)
[2022-11-30] MEDS ORDERED: LORazepam 2 MG/ML VIAL ONE (13:33)
[2022-11-30 13:43] LABS: Albumin 3.6 g/dL (3.4-5.0); Bilirubin Total 0.7 mg/dL (0.2-1.0); Protein, Total 7.9 g/dL (6.4-8.2); Troponin High Sensitivity 3.9 pg/mL (<58.9)
--- NOTE | 2022-11-30 13:55 | RAD REPORT ---
EXAM DESCRIPTION: Krystal Single View11/30/2022 1:45 pm CLINICAL HISTORY: Chest pain COMPARISON: November 25, 2022 FINDINGS: The lungs appear clear of acute infiltrate. The heart is normal size IMPRESSION: No acute abnormalities displayed
--- NOTE | 2022-11-30 14:07 | RAD REPORT ---
EXAM DESCRIPTION: Kanu Angio11/30/2022 1:37 pm CLINICAL HISTORY: Neck pain/hypertension COMPARISON: 2021 TECHNIQUE: 100 cc Isovue 370 was administered intravenously. 3D MIP reconstruction performed All CT scans are performed using dose optimization technique as appropriate and may include automated exposure control or mA/KV adjustment according to patient size. FINDINGS: Short segment mild stenosis proximal left common carotid artery. Mild calcified plaque within the common, internal and external carotid arteries. Mild to moderate calcified plaque within distal vertebral arteries. No dissection seen IMPRESSION: No high-grade stenosis/occlusion visualized NASCET criteria used. Mild 0-49% stenosis Moderate 50-69% stenosis Severe 70-99% stenosis
--- NOTE | 2022-11-30 15:21 | ER ---
Nurse's Notes [facility] Name: Moshe Ewing Age: 61 yrs Sex: Male : 1960 Arrival Date: 11/30/2022 Time: 12:56 Bed 19 Private MD: Diagnosis: Other muscle spasm Presentation: 11/30 12:59 Chief complaint: EMS states: toned out to patient home for neck pain. Coronavirus ld1 screen: At this time, the client does not indicate any symptoms associated with coronavirus-19. Ebola Screen: No symptoms or risks identified at this time. 12:59 Method Of Arrival: EMS: [facility] ld1 13:04 Initial Sepsis Screen: Does the patient meet any 2 criteria? No. Patient's initial ld1 sepsis screen is negative. Does the patient have a suspected source of infection? No. Patient's initial sepsis screen is negative. Risk Assessment: Do you want to hurt yourself or someone else? Patient reports no desire to harm self or others. Onset of symptoms was November 30, 2022 at 13:04. 13:04 Acuity: MYRIAM 3 ld1 Triage Assessment: 13:04 General: Appears in no apparent distress. comfortable, Behavior is cooperative, ld1 anxious. Pain: Complains of pain in neck Pain does not radiate. Pain currently is 10 out of 10 on a pain scale. Quality of pain is described as throbbing. EENT: No signs and/or symptoms were reported regarding the EENT system. Neuro: Level of Consciousness is awake, alert, obeys commands, Oriented to person, place, time, situation. Cardiovascular: Capillary refill < 3 seconds Patient's skin is warm and dry. Rhythm is sinus rhythm. Respiratory: Airway is patent Respiratory effort is even, unlabored. GI: Abdomen is flat, non-distended. : No signs and/or symptoms were reported regarding the genitourinary system. Derm: No signs and/or symptoms reported regarding the dermatologic system. Musculoskeletal: No signs and/or symptoms reported regarding the musculoskeletal system. Historical: - Allergies: 13: amlodipine; ld1 - Home Meds: 13:04 clopidogrel 75 mg Oral tab 1 tab once daily [Active]; finasteride 5 mg Oral tab 1 tab ld1 once daily [Active]; levothyroxine 75 mcg tab 1 tab once daily [Active]; losartan 100 mg Oral tab 1 tab once daily [Active]; lovastatin 40 mg Oral tab 1 tab once daily [Active]; metformin 500 mg Oral cpER 1 tab 1 tab with breakfast, 1 tab with lunch, 2 tabs with evening meal [Active]; tamsulosin 0.4 mg Oral cp24 1 cap once daily [Active]; - PMHx: 13:04 Diabetes - NIDDM; DVT; Hypercholesterolemia; Hypertension; Hypothyroidism; ld1 - PSHx: 13:04 back sx; cadriac stent; Cholecystectomy; foot/shoulder SX; L hand SX with plates ld1 placed; R BKA; stimulator R back for legs; - Immunization history:: Adult Immunizations up to date, Client reports having NOT received the Covid vaccine. - Social history:: Smoking status: Patient denies any tobacco usage or history of. Patient/guardian denies using alcohol. - Family history:: not pertinent. Screenin:06 [facility] ED Fall Risk Assessment (Adult) History of falling in the last 3 months, ld1 including since admission No falls in past 3 months (0 pts). Abuse screen: Denies threats or abuse. Denies injuries from another. Nutritional screening: No deficits noted. Tuberculosis screening: No symptoms or risk factors identified. Assessment: 13:06 Reassessment: See triage assessment. ld1 14:06 Reassessment: Patient appears in no apparent distress at this time. Patient and/or ld1 family updated on plan of care and expected duration. Pain level reassessed. Patient is alert, oriented x 3, equal unlabored respirations, skin warm/dry/pink. Vital Signs: 12:59 BP 177 / 122; Pulse 66; Resp 18; Temp 98.3(O); Pulse Ox 100% on R/A; Weight 90.26 kg; ld1 Height 5 ft. 10 in. (177.80 cm); Pain 10/10; 13:20 BP 211 / 128; Pulse 73; Resp 28; Pulse Ox 100% on R/A; Pain 10/10; ld1 14:06 BP 140 / 89; Pulse 59; Resp 14; Pulse Ox 96% on R/A; ld1 12:59 Body Mass Index 28.55 (90.26 kg, 177.80 cm) ld1 Vitals: 14:06 Cardiac Rhythm Assessment Sinus rhythm. ld1 ED Course: 12:56 Patient arrived in ED. mb9 12:56 Juan Beltran MD is Attending Physician. rt 12:56 Arm band placed on. mb9 12:56 Placed in gown. Bed in low position. Call light in reach. Side rails up X 1. Client mb9 placed on continuous cardiac and pulse oximetry monitoring. NIBP monitoring applied. lunchroom monitor on. 12:59 Cece Wong, RN is Primary Nurse. ld1 13:04 Triage completed. ld1 13:04 EKG completed in triage. Results shown to MD. ld1 13:06 No provider procedures requiring assistance completed. Maintain EMS IV. Dressing ld1 intact. Good blood return noted. Site clean \T\ dry. Gauge \T\ site: 20g RH. 13:07 EKG done, by ED staff, reviewed by Juan Beltran MD. mb9 15:35 IV discontinued, intact, bleeding controlled, No redness/swelling at site. ld1 Administered Medications: 13:18 Drug: Labetalol 10 mg Route: IV; Rate: calculated rate; Site: right hand; ld1 13:18 Drug: Flexeril (cyclobenzaprine) 10 mg Route: PO; ld1 14:08 Follow up: Response: Pain is decreased ld1 13:19 Drug: morphine 4 mg Route: IVP; Infused Over: 4 mins; Site: right wrist; ld1 14:08 Follow up: Response: Pain is decreased ld1 13:19 Drug: Zofran (Ondansetron) 4 mg Route: IVP; Site: right wrist; ld1 14:08 Follow up: Response: No adverse reaction ld1 13:30 Drug: Ativan (LORazepam) 1 mg Route: IVP; Site: right hand; ld1 14:08 Follow up: Response: Anxiety decreased ld1 Medication: 12:57 VIS not applicable for this client. mb9 Outcome: 15:20 Discharge ordered by MD. rt 15:35 Discharged to home via wheelchair, with family. ld1 15:35 Condition: stable 15:35 Discharge instructions given to patient, Instructed on discharge instructions, follow up and referral plans. Demonstrated understanding of instructions, follow-up care. 15:37 Patient left the ED. ld1 Signatures: Cece Wong RN RN ld1 Stephenie Heath RN RN mb9 [place], Juan, MD MD rt
--- NOTE | 2022-11-30 15:21 | EDPHYS ---
Physician Documentation [facility] Name: Moshe Ewing Age: 61 yrs Sex: Male : 1960 Arrival Date: 11/30/2022 Time: 12:56 Bed 19 Private MD: ED Physician Juan Beltran HPI: 11/30 15:25 This 61 yrs old Male presents to ER via EMS with complaints of Neck Pain, >24Hrs Old. rt 15:25 Patient with history of chronic neck pain presents to the ED with a worsening of the rt neck pain, left-sided, radiating downward. Pain is sharp in nature. It is moderate in severity, worse with movement. Denies other aggravating alleviating factors. Patient did report chest pain previously, now resolved.. Historical: - Allergies: 13:04 amlodipine; ld1 - Home Meds: 13:04 clopidogrel 75 mg Oral tab 1 tab once daily [Active]; finasteride 5 mg Oral tab 1 tab ld1 once daily [Active]; levothyroxine 75 mcg tab 1 tab once daily [Active]; losartan 100 mg Oral tab 1 tab once daily [Active]; lovastatin 40 mg Oral tab 1 tab once daily [Active]; metformin 500 mg Oral cpER 1 tab 1 tab with breakfast, 1 tab with lunch, 2 tabs with evening meal [Active]; tamsulosin 0.4 mg Oral cp24 1 cap once daily [Active]; - PMHx: 13:04 Diabetes - NIDDM; DVT; Hypercholesterolemia; Hypertension; Hypothyroidism; ld1 - PSHx: 13:04 back sx; cadriac stent; Cholecystectomy; foot/shoulder SX; L hand SX with plates ld1 placed; R BKA; stimulator R back for legs; - Immunization history:: Adult Immunizations up to date, Client reports having NOT received the Covid vaccine. - Social history:: Smoking status: Patient denies any tobacco usage or history of. Patient/guardian denies using alcohol. - Family history:: not pertinent. ROS: 15:25 Constitutional: Negative for fever, chills, and weight loss, Respiratory: Negative for rt shortness of breath, cough, wheezing, and pleuritic chest pain, Abdomen/GI: Negative for abdominal pain, nausea, vomiting, diarrhea, and constipation, Skin: Negative for injury, rash, and discoloration, Neuro: Negative for headache, weakness, numbness, tingling, and seizure, Psych: Negative for depression, anxiety, suicide ideation, homicidal ideation, and hallucinations. 15:25 ENT: Positive for Neck pain. 15:25 Cardiovascular: Positive for chest pain. Exam: 15:25 Constitutional: This is a well developed, well nourished patient who is awake, alert, rt and in no acute distress. Head/Face: Normocephalic, atraumatic. Chest/axilla: Normal chest wall appearance and motion. Nontender with no deformity. No lesions are appreciated. Cardiovascular: Regular rate and rhythm with a normal S1 and S2. No gallops, murmurs, or rubs. Normal PMI, no JVD. No pulse deficits. Respiratory: Lungs have equal breath sounds bilaterally, clear to auscultation and percussion. No rales, rhonchi or wheezes noted. No increased work of breathing, no retractions or nasal flaring. Abdomen/GI: Soft, non-tender, with normal bowel sounds. No distension or tympany. No guarding or rebound. No evidence of tenderness throughout. Skin: Warm, dry with normal turgor. Normal color with no rashes, no lesions, and no evidence of cellulitis. MS/ Extremity: Pulses equal, no cyanosis. Neurovascular intact. Full, normal range of motion. Neuro: Awake and alert, GCS 15, oriented to person, place, time, and situation. Cranial nerves II-XII grossly intact. Motor strength 5/5 in all extremities. Sensory grossly intact. Cerebellar exam normal. Normal gait. Psych: Awake, alert, with orientation to person, place and time. Behavior, mood, and affect are within normal limits. 15:25 Neck: Tenderness to left superior trapezius muscle, no midline tenderness, no step-off. 15:25 ECG was reviewed by the Attending Physician. Vital Signs: 12:59 BP 177 / 122; Pulse 66; Resp 18; Temp 98.3(O); Pulse Ox 100% on R/A; Weight 90.26 kg; ld1 Height 5 ft. 10 in. (177.80 cm); Pain 10/10; 13:20 BP 211 / 128; Pulse 73; Resp 28; Pulse Ox 100% on R/A; Pain 10/10; ld1 14:06 BP 140 / 89; Pulse 59; Resp 14; Pulse Ox 96% on R/A; ld1 12:59 Body Mass Index 28.55 (90.26 kg, 177.80 cm) ld1 MDM: 12:56 Patient medically screened. rt 15:25 Differential diagnosis: Muscle spasm, aortic dissection, carotid dissection, acute rt coronary syndrome. Data reviewed: vital signs, nurses notes, lab test result(s), EKG, radiologic studies. Consideration of Admission/Observation Escalation of care including admission/observation considered. I considered the following discharge prescriptions or medication management in the emergency department Medications were administered in the Emergency Department. See MAR. Test considered but Not performed: CT: Patient had recent CT dissection protocol performed on the aorta, do not believe that repeat of this imaging is needed at this time.. Care significantly affected by the following chronic conditions: Hypertension. Scoring Tools HEART Score: History: Slightly Suspicious (0) ECG: Non specific repolarization disturbance/ LBTB/ PM (1) Age: > 45 and < 65 years (1) Risk Factors: 1 or 2 Risk factors (1) Troponin: < or = 1 x Normal limit (0) Total Score = 3. Counseling: I had a detailed discussion with the patient and/or guardian regarding: the historical points, exam findings, and any diagnostic results supporting the discharge/admit diagnosis, lab results, radiology results, the need for outpatient follow up. Response to treatment: the patient's symptoms have resolved after treatment. Special discussion: I discussed with the patient/guardian in detail that at this point there is no indication for admission to the hospital. It is understood, however, that if the symptoms persist or worsen the patient needs to return immediately for re-evaluation. ED course: With recent mission to the hospital for chest pain, negative nuclear stress test. Suspect the pain is musculoskeletal in nature. Patient was evaluated extensively for his neck pain as well, thought was that it was a muscle spasm. No carotid dissection seen on exam, do not suspect aortic dissection as the patient had a negative CT scan of the aorta recently. Negative troponin. Patient's hypertension likely due to pain response. Patient's pain did resolve with muscle relaxers, pain meds in the ED, improving his blood pressure. At this time, patient updated benefit from admission to the hospital, discussed at length with patient that he does not require admission at this time. Patient was instructed to follow-up as an outpatient with his pain management doctor. 11/30 13:00 Order name: CBC with Diff rt 11/30 13:00 Order name: CMP rt 11/30 13:00 Order name: Troponin High Sensitivity rt 11/30 13:00 Order name: CT Neck Angio rt 11/30 13:00 Order name: EKG; Complete Time: 13:02 rt 11/30 13:00 Order name: EKG - Nurse/Tech; Complete Time: 13:07 rt 11/30 13:00 Order name: Chest Single View XRAY rt 11/30 13:28 Order name: CBC with Automated Diff; Complete Time: 14:19 EDMS 11/30 13:43 Order name: Comprehensive Metabolic Panel; Complete Time: 14:19 EDMS 11/30 13:43 Order name: Troponin High Sensitivity; Complete Time: 14:19 EDMS 11/30 13:55 Order name: RAD; Complete Time: 14:19 EDMS 11/30 14:07 Order name: CT; Complete Time: 14:19 EDMS EC:25 Rate is 63 beats/min. Rhythm is regular, Normal Sinus Rhythm with Right bundle branch rt block. QRS [place] is Normal. [place] interval is normal. QRS interval is normal. QT interval is normal. No Q waves. Administered Medications: 13:18 Drug: Labetalol 10 mg Route: IV; Rate: calculated rate; Site: right hand; ld1 13:18 Drug: Flexeril (cyclobenzaprine) 10 mg Route: PO; ld1 14:08 Follow up: Response: Pain is decreased ld1 13:19 Drug: morphine 4 mg Route: IVP; Infused Over: 4 mins; Site: right wrist; ld1 14:08 Follow up: Response: Pain is decreased ld1 13:19 Drug: Zofran (Ondansetron) 4 mg Route: IVP; Site: right wrist; ld1 14:08 Follow up: Response: No adverse reaction ld1 13:30 Drug: Ativan (LORazepam) 1 mg Route: IVP; Site: right hand; ld1 14:08 Follow up: Response: Anxiety decreased ld1 Disposition Summary: 11/30/22 15:20 Discharge Ordered Location: Home rt Problem: an acute exacerbation rt Symptoms: are resolved rt Condition: Stable rt Diagnosis - Other muscle spasm rt Followup: rt - With: Private Physician - When: 2 - 3 days - Reason: Discharge Instructions: - Discharge Summary Sheet rt - Muscle Cramps and Spasms rt Forms: - Medication Reconciliation Form rt - Thank You Letter rt - Antibiotic Education rt - Prescription Opioid Use rt Signatures: Dispatcher [employer] Cece Michael RN RN ld1 Juan Beltran MD MD rt
[2022-11-30 15:49] VITALS: BP 140/89; O2SAT 96
[2022-11-30 15:55] VITALS: TEMP 97.3
--- NOTE | 2022-12-01 17:35 | EKG ---
Test Date: 2022-11-30 Test Time: 13:05:38 Web Analytics Specialist: MB MEASUREMENT RESULTS: Intervals: Rate: 63 [place]: 164 QRSD: 148 QT: 436 QTc: 446 [place]: P: 56 [place]: 164 QRS: 90 T: 54 INTERPRETIVE STATEMENTS: Normal sinus rhythm Right bundle branch block Abnormal ECG Compared to ECG 11/27/2022 12:49:20 No significant changes Electronically Signed On 12-01-22 17:32:59 MOTOR LODGE CLERK by Jae Owens
== END 2022-11-30 15:37 | disposition home or self-care (01) ==
LOC: ER 12:50
DX: M62.838 Other muscle spasm (principal); R07.89 Other chest pain; I10 Essential (primary) hypertension; E11.9 Type 2 diabetes mellitus without complications; Z95.818 Presence of other cardiac implants and grafts; Z88.8 Allergy status to other drugs, medicaments and biological substances; Z89.511 Acquired absence of right leg below knee
CPT/HCPCS: 93005; 85025; 36415; 84484; 80053; 70498; 71045; 99284; Q9967; J2405

== ENCOUNTER 2023-02-01 09:31 | Emergency (ER) | payer OTHER ==
--- OUTSIDE RECORDS SUMMARY | 2023-02-01 09:40 | XMS REPORT | Continuity of Care Document ---
:1960 Author Organization [facility] t Address [address] [facility] [address] [place] [address] Care Team Providers Name Role Phone Carroll Regina Quiroga Primary Care Physician Maira Oliveira Attending Clinician Unavailable Regina Hodges Attending Clinician Unavailable Jeison Hays Attending Clinician Radiology Attending Clinician Unavailable RADIOLOGY Attending Clinician Unavailable Carolina Rice RN Attending Clinician Unavailable EARL GODDARD Attending Clinician Unavailable Leonora Guzman Attending Clinician Alexandre Montemayor MD Attending Clinician Earl Goddard MD Attending Clinician Doctor Unassigned, [facility] Attending Clinician Unavailable Wallace Dotson MD Attending Clinician Brian Bright Attending Clinician BRIAN SCHAFFER Attending Clinician Unavailable WALLACE DOTSON Attending Clinician Unavailable Braxton Nash II Attending Clinician BRAXTON NASH Attending Clinician Unavailable CHE BAH [...] Number Effective Date Expiration Date Janell freitas [facility] DUAL [id number] 2020 COMP HMO D SNP 00:00:00 MEDICAID [place] [id number] 2020 [place] 00[place]00 [facility] 53 [id number] 2020 Common ADVANTAGE 00:00:00 Spirit - [facility] [id number] [facility] MEDICARE [id number] 2020 COMPLETE CHOICE 00:00:00 HUMANCarmen GOLD PLS [id number] 2019 HMO 00:00:00 MEDICARE PART A [id number] 2004 2019 \T\ B 00:00:00 00:00:00 Problems Condition Condition Condition Status Onset Resolution Last Treating Co mments Source Name Details Category Date Date Treatment Clinician Date Coronary Coronary Disease Active 2021-09 Unive rs artery artery 1-17 ity of disease disease 00:00: [place] involving involving 00 Medi [place] coronary coronary artery of artery of [place] heart heart without without angina angina pectoris pectoris Generalize Generalize Disease Active 2021-09 U nivers d d 1-17 ity of abdominal abdominal 00:[place] pain pain 00 [place] Coronary Coronary Disease Active 2021-09 Unive rs artery artery 1-17 ity of disease disease 00:00: [place] involving involving 00 Medi [place] coronary coronary artery of artery of [place] heart heart without without angina angina pectoris pectoris Chest pain Chest pain Disease Active 2022-1 U nivers 1-16 ity of 00:00: [place] 00 Medical Branch SPINAL SPINAL Diagnosis Active 2020-092021-09-26 Me madison CORD CORD 11-24 08:25:00 l STIMULATOR STIMULATOR 00:00: He rmann INSERTION INSERTION 00 Active 09/23/2021 [facility] UNK UNK Diagnosis Active 2020-092021-09-24 Mem oria Active 11-24 12:49:00 l 09/23/2021 00:00: Tera leon [address] Other Other Disease Active 2020-09 Univers age-relate age-relate 11-03 it y of d cataract d cataract [place] of left of left 00 Medical eye eye Branch RADICULOPA RADICULOP Diagnosis Active 2020-10-15 Alex THY, ATHY, 1 07:21:00 l LUMBAR LUMBAR 00:00: [place] [facility] 00 Active 10/04/2020 [facility] Obesity Obesity Disease Active Univers (BMI (BMI 3-06 ity of 30-39.9) 30-39.9) 00:00: [place] 00 Medical Branch Left knee Left knee Disease Active Uni vers pain pain 1-10 ity of 00:00: [place] [facility] Left knee Left knee Disease Active Uni vers pain pain 1-10 ity of 00:00: [place] [facility] Shoulder Shoulder Disease Active Unive rs pain, pain, 5-10 ity of bilateral bilateral 00:[place] Foot pain, Foot pain, Disease Active U nivers left left 3-09 ity of 00:00: [place] 00 Medical Branch Impaired Impaired Problem [facility] 8- 14:17:10 l (finding) (finding) 00:00: Herm adam Active 00 04/28/2011 Problem 01/15/2023 Manuel Bee [facility] [id number] Essential Problem Comm on hypertensi Spirit on - [facility] [id number] [place] [id number] prostatic Spirit hyperplasi - CHI a with [facility] tract Center symptoms [id number] Other Problem Common secondary Spirit acute gout - CHI of left [facility] [id number] Type 2 Problem Common diabetes Spirit mellitus - [facility], Medical unspecifie Center d whether custodial insulin use [id number] Acquired Problem Comm on hypothyroi Spirit dism - [facility] [id number] Frequency Problem Com mon of Spirit micturitio - CHI n [facility] [id number] Mass in Problem Commo n neck [facility] [id number] History of Problem C ommon right Spirit below knee - CHI amputation [facility] [id number] Cervical Problem Com mon osteophyte [facility] [id number] [place] [id number] exam [facility] [id number] Chronic Problem 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 polyneurop Medica l [facility] without long-term current use of insulin [id number] Benign Problem Common prostatic Spirit hyperplasi - CHI a without [facility] urinary Medical tract Center symptoms [id number] PAD Problem Common (periphera Spirit l artery - CHI disease) [facility] [id number] Mixed Problem Common hyperlipid Spirit emia - [facility] Polyneurop Polyneurop Problem C ommon athy athy Spirit - [facility] Hypothyroi Hypothyro Problem Resolve 2021-09-28 Memoria dism idism d 22:42:20 l (disorder) (disorder) He rmann Resolved Problem 09/28/2021 Bryan Angina Angina Problem Active 2023-01-15 Mem oria (disorder) (disorder) 14:17:10 l Active [place] Problem 01/15/2023 Manuel Adams [facility] Cervical Cervical Problem Active 2023-01-15 Memoria radiculopa radiculopa 14:17:10 l thy thy Michael (disorder) (disorder) Active Problem 01/15/2023 [facility] 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 14:17:10 l s s [place] (disorder) (disorder) Active Problem 01/15/2023 [facility] Diabetes Diabetes Problem Active 2023-01-15 Memoria mellitus mellitus 14:17:10 l (disorder) (disorder) He rmann Active Problem 01/15/2023 [facility] Hyperlipid Hyperlipi Problem Active 2023-01-15 Memoria emia demia 14:17:10 l (disorder) (disorder) He rmann Active Problem 01/15/2023 [facility] Hypertensi Hypertens Problem Active 2023-01-15 Memoria ve phi 14:17:10 l disorder, disorder, Herm adam systemic systemic arterial arterial (disorder) (disorder) Active Problem 01/15/2023 [facility] Pain Pain Problem Active 2023-01-15 Memor ia (finding) (finding) 14:17:10 l Active [place] Problem 01/15/2023 [facility] Submandibu Submandib Problem Active 2023-01-15 Memoria lar ular 14:17:10 l lymphadeno lymphadeno He [facility] ryne ryne (disorder) (disorder) Active Problem 01/15/2023 [facility] Raised Raised Problem Active [place] Prostate da specific Specific Medica l antigen Antigen Group Allergies, Adverse Reactions, Alerts Allergy Allergy Status Severity Reaction(s) Onset Inactive Treating Comm ents Source Name Type Date Date Clinician AMLODIPI DRUG Active Unknown-Cmnt 2021-09 Un jovi NE INGREDI 1-16 ity of 00:00: [place] 00 Medical Branch Amlodipi Propensi Active Unknown - 2021-09 Reaction U nivers ne ty to See comments -16 unknown ity of adverse 00:00: [place] reaction 00 Medical s Branch No Known No Known Active Memori a Medicati Medicati l on on [place] Allergie Allergie s s amlodipi amlodipi Active CP, SOB, Comm on ne ne Nausea Spirit - [facility] NO KNOWN Drug Active Univers ALLERGIE Class ity of S [facility] Social History Social Habit Start Date Stop Date Quantity Comments Source Sex Assigned At Common Sp josee - [facility] History of Common Spirit - Tobacco Use [facility] History SDOH Food 2022-08-14 2022-08-14 1 Univers ity of Worry 00:00:00 00:00:00 [place] [facility] [place] History SDOH Food 2022-08-14 2022-08-14 1 Univers ity of Scarcity 00:00:00 00:00:00 [facility] History SDOH 2022-08-14 2022-08-14 2 University o f Transport Med 00:00:00 00:00:00 [place] Medic al Branch History [facility] 2022-08-14 2022-08-14 2 University o f Transport Non-Med 00:00:00 00:00:00 [facility] [place] Alcohol intake 2022-08-13 2022-08-13 0 /d University of 00:00:00 00:00:00 [facility] Exposure to 2022-08-02 2022-08-12 Not sure University SARS-CoV-2 00:00:00 10:42:00 [facility] (event) [place] Tobacco use and 2022-05-19 2022-05-19 Smokeless tobacco Un iversity of exposure 00:00:00 00:00:00 non-user [facility] Social History 2021-09-24 2021-09-24 [facility] 15:29:23 15:29:23 Smoking Status Start Date Stop Date Source Tobacco smoking status [facility] Medications Ordered Filled Start Stop Current Ordering Indication Dosage Frequency Signature Comments Components Source Medication Medication Date Date Medication? Clinician (SIG) Name Name Vitamin D3 Yes 50 Memoria 2000 intl 4-18 microgram l units oral 20:16: = 1 tab, Her crews tablet 00 PO, Daily, 0 Refill(s) atorvastati 2021-09 Yes 20mg 20 mg, Univ ers n (LIPITOR) 1-18 Oral, QHS, it y of tablet 20 03:00: [place] 00 on [facility] 08/13/22 Branch at 2100, Until Discontinu ed sulfur 2021-09- No [id number] 5mL 5 mL, Unive rs hexafluorid 10-13 Intravenou i ty of e microsphr 20:30: 20:30 s, ONCE, 1 [place] (LUMASON) 00 :00 dose, On Medica l injection 5 [place] Branch mL 08/13/22 at 1430, Routine
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 Medical Branch Levothyroxi 2021-09 Yes Take by Uni vers ne 75 mcg 1-17 mouth. ity of capsule 16:36: [place] [address] Medical Branch finasteride 2021-09 Yes 5mg Take 5 mg U nivers 5 mg tablet 1-17 by mouth ity of 16:36: in the [place] [address] morning. Medical Branch losartan 2021-09 Yes 100mg Take 100 Univ ers 100 mg 1-17 mg by ity of tablet 16:36: mouth in [place] [address] the Medical morning. Branch metFORMIN 2021-09 Yes 500mg Take 500 Uni vers 500 mg 1-17 mg by ity of tablet 16:36: mouth in [place] [address] the Medical morning Branch and 500 mg in the evening. Take with meals. lovastatin 2021-09 Yes 20mg Take 20 mg U nivers 20 mg 1-17 by mouth ity of tablet 16:36: at [place] [address] bedtime. Medical Branch tamsulosin 2021-09 Yes Take by Univ ers (FLOMAX) 1-17 mouth ity of 0.4 mg 24 16:36: daily. [place] hr [facility] Medical Branch ergocalcife 2021-09 Yes 2000U Take 2,000 Univers rol, 1-17 Units by ity of vitamin D2, 16:36: mouth. Servando s (VITAMIN D Medical ORAL) Branch aspirin 81 2021-09 Yes 81mg Take 81 mg U nivers mg chewable 1-17 by mouth ity of tablet 16:36: in the [place] morning. Medical Branch clopidogreL 2021-09 Yes 75mg Take 75 mg Univers (PLAVIX) 75 1-17 by mouth ity of mg tablet 16:36: in the [place] [address] morning. Medical Branch Levothyroxi 2021-09 Yes Take by Uni vers ne 75 mcg 1-17 mouth. ity of capsule 16:36: [place] [address] Medical Branch finasteride 2021-09 Yes 5mg Take 5 mg U nivers 5 mg tablet 1-17 by mouth ity of 16:36: in the [place] morning. Medical Branch losartan 2021-09 Yes 100mg Take 100 Univ ers 100 mg 1-17 mg by ity of tablet 16:36: mouth in [place] the Medical morning. Branch metFORMIN 2021-09 Yes 500mg Take 500 Uni vers 500 mg 1-17 mg by ity of tablet 16:36: mouth in [place] the Medical morning Branch and 500 mg in the evening. Take with meals. lovastatin 2021-09 Yes 20mg Take 20 mg U nivers 20 mg 1-17 by mouth ity of tablet 16:36: at [place] [address] bedtime. Medical Branch tamsulosin 2021-09 Yes Take by Univ ers (FLOMAX) 1-17 mouth ity of 0.4 mg 24 16:36: daily. [facility] capsule Medical Branch ergocalcife 2021-09 Yes 2000U Take 2,000 Univers rol, 1-17 Units by ity of vitamin D2, 16:36: mouth. Servando servin (VITAMIN D Medical ORAL) Branch aspirin 81 2021-09 Yes 81mg Take 81 mg U nivers mg chewable 1-17 by mouth ity of tablet 16:36: in the [place] morning. Medical Branch clopidogreL 2021-09 Yes 75mg Take 75 mg Univers (PLAVIX) 75 1-17 by mouth ity of mg tablet 16:36: in the [place] [address] morning. Medical Branch Levothyroxi 2021-09 Yes Take by Uni vers ne 75 mcg 1-17 mouth. ity of capsule 16:36: [place] Medical Branch finasteride 2021-09 Yes 5mg Take 5 mg U nivers 5 mg tablet 1-17 by mouth ity of 16:36: in the [place] [address] morning. Medical Branch losartan 2021-09 Yes 100mg Take 100 Univ ers 100 mg 1-17 mg by ity of tablet 16:36: mouth in [place] the Medical morning. Branch metFORMIN 2021-09 Yes 500mg Take 500 Uni vers 500 mg 1-17 mg by ity of tablet 16:36: mouth in [place] [address] the Medical morning Branch and 500 mg in the evening. Take with meals. lovastatin 2021-09 Yes 20mg Take 20 mg U nivers 20 mg 1-17 by mouth ity of tablet 16:36: at [place] [address] bedtime. Medical Branch tamsulosin 2021-09 Yes Take by Univ ers (FLOMAX) 1-17 mouth ity of 0.4 mg 24 16:36: daily. [place] hr capsule Medical Branch ergocalcife 2021-09 Yes 2000U Take 2,000 Univers rol, 1-17 Units by ity of vitamin D2, 16:36: mouth. [facility] s (VITAMIN D Medical ORAL) Branch aspirin 81 2021-09 Yes 81mg Take 81 mg U nivers mg chewable -17 by mouth ity of tablet 16:36: in the [place] morning. Medical Branch polyethylen 2021-09 Yes 17g 17 g, Unive rs e glycol 1-17 Oral, ity of 3350 powder 15:00: [place]ILY, [place] 17 g 00 First dose Medical on [facility] 08/13/22 at 0900, Until Discontinu ed, Routine tamsulosin 2021-09 Yes .4mg 0.4 mg, Univ ers (FLOMAX) 1-17 Oral, ity of capsule 0.4 15:00: DAILY, [place] mg 00 First dose Medical on [facility] 08/13/22 at 0900, Until Discontinu ed, Routine losartan 2021-09 Yes 100mg 100 mg, Unive rs (COZAAR) 1-17 Oral, ity of tablet 100 15:00: DAILY, [place] mg 00 First dose Medical on [facility] 08/13/22 at 0900, Until Discontinu ed, Routine finasteride 2021-09 Yes 5mg 5 mg, Unive rs (PROSCAR) 1-17 Oral, ity of tablet 5 mg 15:00: DAILY, [place] 00 First dose Medical on [facility] 08/13/22 at 0900, Until Discontinu ed, Routine clopidogreL 2021-09 Yes 75mg 75 mg, Univ ers (PLAVIX) 75 1-17 Oral, ity of mg tablet 15:00: DAILY, [place] 75 mg 00 First dose Medical on [facility] 08/13/22 at 0900, Until Discontinu ed, Routine aspirin 2021-09 Yes 81mg 81 mg, Univers chewable -17 Oral, ity of tablet 81 15:00: DAILY, [place] mg 00 First dose Medical on [facility] 08/13/22 at 0900, Until Discontinu ed, Routine enoxaparin 2021-09 Yes 40mg 40 mg, Unive rs (LOVENOX) 10-13 Subcutaneo ity of injection 15:00: [place], [place]ILY, [place] 40 mg 00 First dose Medical on [place] [facility] 08/13/22 at 0900, Until Discontinu ed, Routine Sliding 2021-09 Yes Subcutaneo Univ ers Scale -17 us, TID ity of Insulin - 14:00: MEALS+HS, [place] Lispro 00 First dose Medical (HumaLOG) + on [place] Branch Fsbg 08/13/22 Testing at 0800, Until Discontinu ed, Routine levothyroxi 2021-09 Yes 75ug 75 mcg, Uni vers ne 10-13 Oral, ity of (SYNTHROID) 12:00: QAM-0600, [place] tablet 75 00 First dose Medi balbina mcg on [place] [facility] 08/13/22 at 0600, Until Discontinu ed dextrose [...] 25 Starting Medical injection 1 on [place] Branch mg 08/13/22 at 0039, Until Discontinu ed, VAUGHN, Blood Glucose < or = 70 mg/dL and patient is unable to swallow or has mental changes. morpHINE (2 2021-09- No 2mg 2 mg, Slow Univers mg/mL) 10-13 IV Push, ity of injection 2 01:00: 00:59 Q6HPRN, [place] mg 09 :09 Starting Medical on Wed08/12/22 at 1900, Until [place] 08/13/22 at 1859, Routine, Pain (scale 7-10), Chest pain traMADoL 2021-09- No 50mg 50 mg, Univer s (ULTRAM) 10-13 Oral, ity of tablet 50 01:00: 00:59 Q8HPRN, [place] mg 01 :01 Starting Medical on Wed08/12/22 at 1900, Until Wed08/14/22 at 1859, Routine, Pain (scale 4-6) acetaminoph 2021-09 Yes 650mg 650 mg, Un jovi en 10-13 Oral, ity of (TYLENOL) 00:59: Q6HPRN, [place] tablet 650 59 Starting Medic al mg on Wed08/12/22 at 1859, Until Discontinu ed, Routine, Pain (scale 1-3) iopamidol 2021-09- No [id number] 100mL 100 mL, Univers (ISOVUE 10-12 Intravenou [...] [place] mg 00 :00 dose, On [facility] 08/12/22 at 1300, STAT nitroglycer 2021-09- No .4mg 0.4 mg, Un jovi in 10-12 Sublingual ity of (NITROSTAT) 18:15: 18:06 , ONCE, 1 [place] sublingual 00 :00 dose, On Medic al tablet 0.4 Wed Branch mg 08/12/22 at 1215, VAUGHN nitroglycer 2021-09 Yes .4mg [...] :00 dose, On Medi balbina mg Wed [place] 08/12/22 at 1115, VAUGHN morpHINE (4 2021-09- No 4mg 4 mg, Slow Univers mg/mL) 10-12 IV Push, ity of injection 4 17:15: 17:12 ONCE, 1 [place] mg 00 :00 dose, On [facility] 08/12/22 at 1115, STAT Lidocaine & Lidocaine & 0 2021- No QD Lidocaine Adhesive Adhesive 06-19 & Adhesive Sheet 5 % Sheet 5 % 00:00: 00:00 Sheet 5 % (Patch) (Patch) 00 :00 (Patch) Lidocaine & Lidocaine & 2021-0 2021- No QD Lidocaine Adhesive Adhesive 06-19 1013 & Adhesive Sheet 5 % Sheet 5 % 00:00: 00:00 Sheet 5 % (Patch) (Patch) 00 :00 (Patch) Lidocaine & Lidocaine & 2021-0 2021- No QD Lidocaine Adhesive Adhesive 06-19 10-13 & Adhesive Sheet 5 % Sheet 5 % 00:00: 00:00 Sheet 5 % (Patch) (Patch) 00 :00 (Patch) Lidocaine & Lidocaine & 2021-0 2021- No QD Lidocaine Adhesive Adhesive - 10-13 & Adhesive Sheet 5 % Sheet 5 % 00:00: 00:00 Sheet 5 % (Patch) (Patch) 00 :00 (Patch) Lidocaine & Lidocaine & 2021-0 2021- No QD Lidocaine Adhesive Adhesive 9- 10-13 & Adhesive Sheet 5 % Sheet 5 % 00:00: 00:00 Sheet 5 % (Patch) (Patch) 00 :00 (Patch) Lidocaine & Lidocaine & 2021-0 2021- No QD Lidocaine Adhesive Adhesive 06-19 10-13 & Adhesive Sheet 5 % Sheet 5 % 00:00: 00:00 Sheet 5 % (Patch) (Patch) 00 :00 (Patch) meloxicam 2021-2021- No [id number] 15mg Take 1 Univers 15 mg 806-19 [id number] tablet by ity of tablet 00:00: 04:59 mouth in [place] 00 :00 the [facility] morning Branch for 30 days. meloxicam 2021-2021- No [id number] 15mg Take 1 Univers 15 mg 8-06-19 [id number] tablet by ity of tablet 00:00: 04:59 mouth in [place] 00 :00 [facility] morning Branch for 30 days. meloxicam 2021-2021- No [id number] 15mg Take 1 Univers 15 mg 8-06-19 [id number] tablet by ity of tablet 00:00: 04:59 mouth in [place] 00 :00 [facility] morning [place] for 30 days. methylPREDN 2021-0 Yes [id number] 84mg Take 21 Univers ISolone 5-23 9103 tablets by ity of (MEDROL, 00:00: mouth [place] MICHELE,) 4 mg 00 SEE-INSTRU Med ical tablets CTIONS. Branch follow package directions methylPREDN 2021-0 Yes [id number] 84mg Take 21 Univers ISolone 5-23 9103 tablets by ity of (MEDROL, 00:00: mouth [place] MICHELE,) 4 mg 00 SEE-INSTRU Med ical tablets CTIONS. Branch follow package directions methylPREDN 2021-0 Yes [id number] 84mg Take 21 Univers ISolone 5-23 9103 tablets by ity of (MEDROL, 00:00: mouth [place] MICHELE,) 4 mg 00 SEE-INSTRU Med ical tablets CTIONS. Branch follow package directions methylPREDN 2021-0 Yes [id number] 84mg Take 21 Univers ISolone 5- 9103 tablets by ity of (MEDROL, 00:00: mouth [place] MICHELE,) 4 mg 00 SEE-INSTRU Med ical tablets CTIONS. Branch follow package directions methylPREDN 0 2021- No [id number] 84mg Take 21 Univers ISolone 5-23 11-17 9103 tablets by ity o f (MEDROL, 00:00: 00:00 mouth [place] MICHELE,) 4 mg 00 :00 SEE-INSTRU Med ical tablets CTIONS. Branch follow package directions Meloxicam Meloxicam 2021- No 1{table QD Meloxicam 7.5 MG 7.5 MG 02-04 t} 7.5 MG 00:00: 00:00 00 :00 Meloxicam Meloxicam 2021- No 1{table QD Meloxicam 7.5 MG 7.5 MG 02-04 t} 7.5 MG 00:00: 00:00 00 :00 tiZANidine tiZANidine 2021- No 1{table tiZANidine HCl 4 MG HCl 4 MG 02-04 t_as_ne HCl 4 MG 00:00: 00:00 eded} 00 :00 Rocephin Rocephin 2021-0 No 1000mg Com mon (Ceftriaxon (Ceftriaxon 4-11 S pirit e) e) 00:00: - [facility] Toradol Toradol 2021-0 No 30mg Common (Ketorolac) (Ketorolac) 4-11 S pirit 00:00: - [facility] Rocephin Rocephin 2021-0 No 1000mg Com mon (Ceftriaxon (Ceftriaxon 4-11 S pirit e) e) 00:00: - CHI 00 [facility] Toradol Toradol 2021-0 No 30mg Common (Ketorolac) (Ketorolac) 4-11 S pirit 00:00: - [facility] Rocephin Rocephin 2021-0 No 1000mg Com mon (Ceftriaxon (Ceftriaxon 4-11 S pirit e) e) 00:00: - CHI 00 [facility] Toradol Toradol 2021-0 No 30mg Common (Ketorolac) (Ketorolac) 4-11 S pirit 00:00: - [facility] Naproxen Naproxen 2-0 No BID Naproxen 500 MG 500 MG 4-11 500 MG 00:00: 00 Rocephin Rocephin 2-0 No 1000mg Com mon (Ceftriaxon (Ceftriaxon 4-11 S pirit e) e) 00:00: - [facility] Toradol Toradol 2021-0 No 30mg Common (Ketorolac) (Ketorolac) 4-11 S pirit 00:00: - CHI 00 [facility] Naproxen Naproxen 2021-0 No BID Naproxen 500 MG 500 MG 4-11 500 MG 00:00: 00 Rocephin Rocephin 2-0 No 1000mg Com mon (Ceftriaxon (Ceftriaxon 4-11 S pirit e) e) 00:00: - [facility] Toradol Toradol 2021-0 No 30mg Common (Ketorolac) (Ketorolac) 4-11 S pirit 00:00: - [facility] Rocephin Rocephin 2-0 No 1000mg Com mon (Ceftriaxon (Ceftriaxon 4-11 S pirit e) e) 00:00: - [facility] Toradol Toradol 2021-0 No 30mg Common (Ketorolac) (Ketorolac) 4-11 S pirit 00:00: - [facility] Rocephin Rocephin 2-0 No 1000mg Com mon (Ceftriaxon (Ceftriaxon 4-11 S pirit e) e) 00:00: - [facility] Toradol Toradol 2021-0 No 30mg Common (Ketorolac) (Ketorolac) 4-11 S pirit 00:00: - [facility] Rocephin Rocephin 2-0 No 1000mg Com mon (Ceftriaxon (Ceftriaxon 4-11 S pirit e) e) 00:00: - [facility] Toradol Toradol 2021-0 No 30mg Common (Ketorolac) (Ketorolac) 4-11 S pirit 00:00: - CHI 00 [facility] Rocephin Rocephin 2021-0 No 1000mg Com mon (Ceftriaxon (Ceftriaxon 4-11 S pirit e) e) 00:00: - [facility] Toradol Toradol 2021-0 No 30mg Common (Ketorolac) (Ketorolac) 4-11 S pirit 00:00: - CHI 00 [facility] Rocephin Rocephin 2021-0 No 1000mg Com mon (Ceftriaxon (Ceftriaxon 4-11 S pirit e) e) 00:00: - [facility] Toradol Toradol 2021-0 No 30mg Common (Ketorolac) (Ketorolac) 4-11 S pirit 00:00: - [facility] Rocephin Rocephin 2021-0 No 1000mg Com mon (Ceftriaxon (Ceftriaxon 4-11 S pirit e) e) 00:00: - [facility] Toradol Toradol 2021-0 No 30mg Common (Ketorolac) (Ketorolac) 4-11 S pirit 00:00: - CHI 00 [facility] Rocephin Rocephin 2021-0 No 1000mg Com mon (Ceftriaxon (Ceftriaxon 4-11 S pirit e) e) 00:00: - [facility] Toradol Toradol 2021-0 No 30mg Common (Ketorolac) (Ketorolac) 4-11 S pirit 00:00: - [facility] Rocephin Rocephin 2021-0 No 1000mg Com mon (Ceftriaxon (Ceftriaxon 4-11 S pirit e) e) 00:00: - [facility] Toradol Toradol 2021-0 No 30mg Common (Ketorolac) (Ketorolac) 4-11 S pirit 00:00: - [facility] cefTRIAXone cefTRIAXone 2021-0 No 1000mg Common Sodium Sodium 4-11 Spirit 00:00: - [facility] Toradol Toradol No 30mg Common (Ketorolac) (Ketorolac) 4-11 S pirit 00:00: - [facility] cefTRIAXone cefTRIAXone No 1000mg Common Sodium Sodium 4-11 Spirit 00:00: - [facility] Farm Toradol Toradol No 30mg Common (Ketorolac) (Ketorolac) 4-11 S pirit 00:00: - [facility] Amoxicillin Amoxicillin 0 2021- No 1{table BID Amoxicilli -Pot -Pot 01-0518 t} n-Pot Clavulanate Clavulanate 00:00: 00:00 Clavulanat 875-125 MG 875-125 MG 00 :00 e 875-125 MG ceFAZolin 2020-09 No Route: IV, Me moria (ANES) Drug form: l 18:23: INJ, ONCE, Stop date: 09/26/21 12:23:00 [employer] ondansetron 2020-09 No Route: IV, Memoria (ANES) Drug form: l 18:23: INJ, ONCE, Stop date: 09/26/21 12:23:00 [employer] dexamethaso 2020-09 No Route: IV, Memoria ne (ANES) Drug form: l 18:23: INJ, ONCE, Stop date: 09/26/21 12:23:00 [employer] lidocaine 2020-09 No Route: IV, Me moria (ANES) Drug form: l 18:23: INJ, ONCE, Stop date: 09/26/21 12:23:00 [employer] propofol 2020-09 No Route: IV, Mem oria (ANES) Drug form: l 18:23: INJ, ONCE, Stop date: 09/26/21 12:23:00 [employer] ceFAZolin 2020-09 No Route: IV, Me moria (ANES) Drug form: l 18:23: INJ, ONCE, Stop date: 09/26/21 12:23:00 [employer] ondansetron 2020-09 No Route: IV, Memoria (ANES) 2 Drug form: l 18:23: INJ, ONCE, Stop date: 09/26/21 12:23:00 [employer] dexamethaso 2020-09 No Route: IV, Memoria ne (ANES) Drug form: l 18:23: INJ, ONCE, Stop date: 09/26/21 12:23:00 [employer] lidocaine 2020-09 No Route: IV, Me moria (ANES) Drug form: l 18:23: INJ, ONCE, Stop date: 09/26/21 12:23:00 [employer] propofol 2020-09 No Route: IV, Mem oria (ANES) Drug form: l 18:23: INJ, ONCE, Stop date: 09/26/21 12:23:00 [employer] ceFAZolin 2020-09 No Route: IV, Me moria (ANES) Drug form: l 18:23: INJ, ONCE, Stop date: 09/26/21 12:23:00 [employer] ondansetron 2020-09 No Route: IV, Memoria (ANES) Drug form: l 18:23: INJ, ONCE, Stop date: 09/26/21 12:23:00 [employer] dexamethaso 2020-09 No Route: IV, Memoria ne (ANES) Drug form: l 18:23: INJ, ONCE, Stop date: 09/26/21 12:23:00 [employer] lidocaine 2020-09 No Route: IV, Me moria (ANES) Drug form: l 18:23: INJ, ONCE, Stop date: 09/26/21 12:23:00 [employer] propofol 2020-09 No Route: IV, Mem oria (ANES) 2 Drug form: l 18:23: INJ, ONCE, Stop date: 09/26/21 12:23:00 [employer] midazolam 2020-09 No Route: IV, Me moria (ANES) 2- Drug form: l 18:22: SOLN, ONCE, Stop date: 09/26/21 12:22:00 [employer] fentaNYL 2020-09 No Route: IV, Mem oria (ANES) 2 Drug form: l 18:22: INJ, ONCE, [place] Stop date: 09/26/21 12:22:00 [employer] midazolam 2020-09 No Route: IV, Me moria (ANES) 2- Drug form: l 18:22: SOLN, Michael 00 ONCE, Stop date: 09/26/21 12:22:00 [employer] fentaNYL 2020-09 No Route: IV, Mem oria (ANES) 2- Drug form: l 18:22: INJ, ONCE, [place] 00 Stop date: 09/26/21 12:22:00 [employer] midazolam 2020-09 No Route: IV, Me moria (ANES) 2- Drug form: l 18:22: SOLN, [place] 00 ONCE, Stop date: 09/26/21 12:22:00 [employer] fentaNYL 2020-09 No Route: IV, Mem oria (ANES) 2- Drug form: l 18:22: INJ, ONCE, Michael Stop date: 09/26/21 12:22:00 [employer] Lactated 2020-09 No Route: IV, Mem oria Ringers -31 Total l Injection 17:40: Volume: Roz nn IV (ANES) 00 1,000, 1000 mL Start date: 09/26/21 11:40:00 [employer], Stop date: 09/26/21 12:40:00 [employer] Lactated 2020-09 No Route: IV, Mem oria Ringers 2-31 Total l Injection 17:40: Volume: Roz nn IV (ANES) 00 1,000, 1000 mL Start date: 09/26/21 11:40:00 [employer], Stop date: 09/26/21 12:40:00 [employer] Lactated 2020-09 No Route: IV, Mem oria Ringers 2-31 Total l Injection 17:40: Volume: Roz nn IV (ANES) 00 1,000, 1000 mL Start date: 09/26/21 11:40:00 [employer], Stop date: 09/26/21 12:40:00 [employer] Calcium 2020-09 No 1,000 mL, Memor ia Chloride Rate: 75 l 0.0014 15:58: ml/hr, [place] MEQ/ML / 00 Infuse Potassium over: 13.3 Chloride hr, Route: 0.004 IV, Dosing MEQ/ML / Weight Sodium 99.545 kg, Chloride Total 0.103 Volume: MEQ/ML / 1,000, Sodium Start Lactate date: 0.028 09/26/21 MEQ/ML 9:58:00 Injectable [employer], Solution Duration: 30 day, Stop date: 10/26/21 9:57:00 [employer], BSA: 2.22 m2, 0 Calcium 2020-09 No 1,000 mL, Memor ia Chloride 2-31 Rate: 75 l 0.0014 15:58: ml/hr, Michael MEQ/ML / 00 Infuse Potassium over: 13.3 Chloride hr, Route: 0.004 IV, Dosing MEQ/ML / Weight Sodium 99.545 kg, Chloride Total 0.103 Volume: MEQ/ML / 1,000, Sodium Start Lactate date: 0.028 09/26/21 MEQ/ML 9:58:00 Injectable [employer], Solution Duration: 30 day, Stop date: 10/26/21 9:57:00 [employer], BSA: 2.22 m2, 0 Calcium 2020-09 No 1,000 mL, Memor ia Chloride 2-31 Rate: 75 l 0.0014 15:58: ml/hr, Michael MEQ/ML / 00 Infuse Potassium over: 13.3 Chloride hr, Route: 0.004 IV, Dosing MEQ/ML / Weight Sodium 99.545 kg, Chloride Total 0.103 Volume: MEQ/ML / 1,000, Sodium Start Lactate date: 0.028 21 MEQ/ML 9:58:00 Injectable [employer], Solution Duration: 30 day, Stop date: 10/26/21 9:57:00 [employer], BSA: 2.22 m2, 0 Folic Acid 2020-09 Yes 1 mg, PO, Me moria 2-29 0 l 19:45: Refill(s) Folic Acid 2020-09 Yes 1 mg, PO, Me moria 2-29 0 l 19:45: Refill(s) Folic Acid 2020-09 Yes 1 mg, PO, Me moria 2-29 0 l 19:45: Refill(s) folic acid 2020-09 Yes 1 mg, PO, Me moria 2-29 0 l 19:45: Refill(s) Vitamin D2 2020-09 Yes 50 Memoria 2000 intl 2-29 microgram l units oral 19:44: = 1 cap, Her crews capsule 00 PO, Daily, 0 Refill(s) Vitamin D2 2020-09 Yes 50 Memoria 2000 intl 2-29 microgram l units oral 19:44: = 1 cap, Her crews capsule 00 PO, Daily, 0 Refill(s) Vitamin D2 2020-09 Yes 50 Memoria 2000 intl 2-29 microgram l units oral 19:44: = 1 cap, Her crews capsule 00 PO, Daily, 0 Refill(s) Vitamin D2 2020-09 Yes 50 Memoria 2000 intl 2-29 microgram l units oral 19:44: = 1 cap, Her crews capsule 00 PO, Daily, 0 Refill(s) Unknown 2020-09 No Q-M-W-F, Memori a Home 2-29 flouric l Medication 15:15: acid PO Herm adam 00 three times week, Refill(s) 0 Unknown 2020-09 No Q-M-W-F, Memori a Home 2-29 flouric l Medication 15:15: acid PO Herm adam 00 three times week, Refill(s) 0 Unknown 2020-09 No Q-M-W-F, Memori a Home 2-29 flouric l Medication 15:15: acid PO Herm adam 00 three times week, Refill(s) 0 tamsulosin 2020-09 Yes 0.4 mg = 1 M emoria 0.4 mg oral 2-29 cap, PO, l capsule 15:14: Daily tamsulosin 2020-09 Yes 0.4 mg = 1 M emoria 0.4 mg oral 2-29 cap, PO, l capsule 15:14: Daily tamsulosin 2020-09 Yes 0.4 mg = 1 M emoria 0.4 mg oral 2-29 cap, PO, l capsule 15:14: Daily Fish Oil Fish Oil 2020-09 No 2{capsu [...] UT) (1000 UT) 00:00: (1000 UT) 00 hydroCHLORO hydroCHLORO 2020-0 No 1{table QD hydroCHLOR [...] e_morni 25 MG 00 ng} hydroCHLORO hydroCHLORO No 1{table QD hydroCHLOR thiazide 25 thiazide 25 3-29 t_in_th Othiazide MG MG 00:00: e_morni 25 MG 00 ng} hydroCHLORO hydroCHLORO No 1{table QD hydroCHLOR thiazide 25 thiazide 25 3-29 t_in_th Othiazide MG MG 00:00: e_morni 25 MG 00 ng} Albuterol Albuterol No 1{puff_ Albuterol Sulfate HFA [...] Base) 00 (90 Base) MCG/ACT MCG/ACT MCG/ACT clopidogrel Yes 75 mg = 1 M emoria 75 mg oral 1-15 tab, PO, l tablet 20:18: Daily, # [place] 00 30 tab, 0 Refill(s) losartan Yes 100 mg, Memori a 1-15 PO, Daily, l 20:18: 0 [place] 00 Refill(s) levothyroxi Yes 75 Memori a ne 1-15 microgram, l 20:18: PO, Daily, [place] 00 0 Refill(s) finasteride Yes 5 mg = 1 Me moria 1-15 tab, PO, l 20:18: Daily, # Michael 00 30 tab, 0 Refill(s) lovastatin Yes 20 mg, PO, M emoria 1-15 0 l 20:18: Refill(s) [place] 00 Accu-Chek Accu-Chek 2018-09 No Accu-Chek Tania [...] - 00 Accu-Chek Accu-Chek 2018- No Accu-Chek Tanai Plus Tania Plus 0-03 Tania Plus - [...] Tania Plus - - 00:00: - 00 aspirin Yes 81 mg, PO, Brodie douglas 6- Daily l 22:27: [place] 37 metFORmin Yes 500 mg, Memor ia 6-22 PO, 1 tab l 22:27: with [place] 14 breakfast, 1 tab at noon, 2 at dinner Lovastatin Lovastatin No Lovastatin 20 MG 20 MG 20 MG HYDROcodone HYDROcodone No HYDROcodon -Acetaminop -Acetaminop e-Acetamin hen 7.5-325 hen 7.5-325 ophen MG MG 7.5-325 MG Tamsulosin Tamsulosin No 1{capsu QD Tamsulosin HCl 0.4 MG HCl 0.4 MG le} HCl 0.4 MG Baby Baby No 1{table QD Baby Aspirin 81 Aspirin 81 t} Aspirin 81 mg mg mg Folic Acid Folic Acid No Folic Acid 1 MG 1 MG 1 MG Levothyroxi Levothyroxi No Levothyrox ne Sodium ne Sodium ine Sodium 75 MCG 75 MCG 75 MCG Finasteride Finasteride No Finasterid 5 MG 5 [...] MG HCl 500 MG HCl 500 MG Gabapentin Gabapentin No 1{capsu QD Gabapentin 300 MG 300 MG le} 300 MG metFORMIN metFORMIN No metFORMIN HCl 500 MG HCl 500 MG HCl 500 MG Clopidogrel Clopidogrel No Clopidogre Bisulfate Bisulfate l 75 MG 75 MG Bisulfate 75 MG Losartan Losartan No Losartan Potassium Potassium Potassium 100 MG 100 MG 100 MG Lovastatin Lovastatin No Lovastatin 20 MG 20 MG 20 MG Levothyroxi Levothyroxi No Levothyrox ne Sodium ne Sodium ine Sodium 75 MCG 75 MCG 75 MCG Folic Acid Folic Acid No Folic Acid 1 MG 1 MG 1 MG Tamsulosin Tamsulosin No Tamsulosin HCl 0.4 MG HCl 0.4 MG HCl 0.4 MG Finasteride Finasteride No Finasterid 5 MG 5 MG e 5 MG HYDROcodone HYDROcodone No HYDROcodon -Acetaminop -Acetaminop e-Acetamin hen 7.5-325 hen 7.5-325 ophen MG MG 7.5-325 MG Baby Baby No 1{table QD Baby Aspirin 81 Aspirin 81 t} Aspirin 81 mg mg mg acetaminoph acetaminoph No acetaminop [place] 300 [...] Yes Regina 1 capsule Common HCl HCl [facility] metFORMIN metFORMIN No metFORMIN HCl 500 MG [...] blood 2022-08-13 17:39:00 151 mm[Hg] Univer sity [facility] Diastolic blood 2022-08-13 17:39:00 94 mm[Hg] [facility] 2022-08-13 17:39:00 82 /min [facility] Body temperature 2022-08-13 17:39:00 36.33 [facility] 2022-08-13 17:39:00 18 /min [facility] Oxygen saturation in 2022-08-13 17:39:00 96 /min [facility] Arterial blood by [facility] Pulse oximetry Branch Body weight 2022-08-13 09:43:00 89.994 kg Universi ty [facility] BMI 2022-08-13 09:43:00 29.30 kg/m2 Univers ty [facility] Body height 2022-08-13 01:42:00 175.3 cm [facility] height 2022-06-19 11:00:00 69.5 [in_i] Common [facility] weight 2022-06-19 11:00:00 212 [lb_av] [facility] temperature 2022-06-19 11:00:00 98.6 [degF] [facility] bmi 2022-06-19 11:00:00 30.85 kg/m2 [facility] oximetry 2022-06-19 11:00:00 96 % [facility] respiratory rate 2022-06-19 11:00:00 17 /min Comm on [facility] blood pressure 2022-06-19 11:00:00 134 mm[Hg] Common [facility] - systolic [facility] blood pressure 2022-06-19 11:00:00 80 mm[Hg] [facility] - diastolic [facility] height 2022-06-19 10:40:00 69.5 [in_i] Common [facility] weight 2022-06-19 10:40:00 212 [lb_av] [facility] temperature 2022-06-19 10:40:00 98.6 [degF] [facility] bmi 2022-06-19 10:40:00 30.85 kg/m2 [facility] oximetry 2022-06-19 10:40:00 96 % Common [facility] respiratory rate 2022-06-19 10:40:00 17 /min Comm on [facility] blood pressure 2022-06-19 10:40:00 134 mm[Hg] Common [facility] - systolic [facility] blood pressure 2022-06-19 10:40:00 80 mm[Hg] Common [facility] - diastolic [facility] height 2022-06-15 11:20:00 69.5 [in_i] Common [facility] weight 2022-06-15 11:20:00 212 [lb_av] [facility] temperature 2022-06-15 11:20:00 98.2 [degF] [facility] bmi 2022-06-15 11:20:00 30.85 kg/m2 [facility] oximetry 2022-06-15 11:20:00 97 % [facility] respiratory rate 2022-06-15 11:20:00 16 /min Comm on [facility] blood pressure 2022-06-15 11:20:00 134 mm[Hg] Common [facility] - systolic [facility] blood pressure 2022-06-15 11:20:00 76 mm[Hg] Common [facility] - diastolic [facility] Body height 2022-05-19 13:09:00 175.3 cm [facility] Body weight 2022-05-19 13:09:00 95.255 kg [facility] BMI 2022-05-19 13:09:00 31.01 kg/m2 [facility] height 2022-02-04 09:20:00 69.5 [in_i] Common [facility] weight 2022-02-04 09:20:00 211.8 [lb_av] Common [facility] temperature 2022-02-04 09:20:00 97.5 [degF] Common [facility] bmi 2022-02-04 09:20:00 30.83 kg/m2 [facility] oximetry 2022-02-04 09:20:00 95 % Common [facility] respiratory rate 2022-02-04 09:20:00 16 /min Comm on [facility] blood pressure 2022-02-04 09:20:00 134 mm[Hg] Common [facility] - systolic [facility] blood pressure 2022-02-04 09:20:00 78 mm[Hg] Common [facility] - diastolic [facility] height 2022-01-05 14:40:00 69.5 [in_i] [facility] weight 2022-01-05 14:40:00 210.4 [lb_av] [facility] temperature 2022-01-05 14:40:00 98.1 [degF] [facility] bmi 2022-01-05 14:40:00 30.62 kg/m2 [facility] oximetry 2022-01-05 14:40:00 97 % [facility] respiratory rate 2022-01-05 14:40:00 16 /min Comm on [facility] blood pressure 2022-01-05 14:40:00 138 mm[Hg] [facility] systolic [facility] blood pressure 2022-01-05 14:40:00 74 mm[Hg] Common [facility] - diastolic [facility] height 2021-12-22 08:40:00 69.5 [in_i] Common [facility] weight 2021-12-22 08:40:00 216.8 [lb_av] [facility] temperature 2021-12-22 08:40:00 97.5 [degF] [facility] bmi 2021-12-22 08:40:00 31.55 kg/m2 [facility] oximetry 2021-12-22 08:40:00 97 % [facility] respiratory rate 2021-12-22 08:40:00 16 /min Comm on [facility] blood pressure 2021-12-22 08:40:00 136 mm[Hg] Common [facility] - systolic [facility] blood pressure 2021-12-22 08:40:00 78 mm[Hg] [facility] - diastolic [facility] height 2021-08-26 16:00:00 69.5 [in_i] [facility] weight 2021-08-26 16:00:00 213.2 [lb_av] Common [facility] temperature 2021-08-26 16:00:00 98.3 [degF] Common [facility] bmi 2021-08-26 16:00:00 31.03 kg/m2 Common [facility] oximetry 2021-08-26 16:00:00 97 % Common [facility] respiratory rate 2021-08-26 16:00:00 16 /min Comm on [facility] blood pressure 2021-08-26 16:00:00 130 mm[Hg] Common [facility] - systolic [facility] blood pressure 2021-08-26 16:00:00 72 mm[Hg] Common [facility] - diastolic [facility] height 2021-06-24 08:00:00 69.5 [in_i] Common [facility] weight 2021-06-24 08:00:00 221.8 [lb_av] Common [facility] temperature 2021-06-24 08:00:00 99.0 [degF] [facility] bmi 2021-06-24 08:00:00 32.28 kg/m2 Common [facility] oximetry 2021-06-24 08:00:00 97 % Common [facility] respiratory rate 2021-06-24 08:00:00 16 /min Comm on [facility] blood pressure 2021-06-24 08:00:00 138 mm[Hg] Common [facility] - systolic [facility] blood pressure 2021-06-24 08:00:00 88 mm[Hg] [facility] - diastolic [facility] height 2021-03-25 08:40:00 69.5 [in_i] [facility] weight 2021-03-25 08:40:00 226.8 [lb_av] Common [facility] - [facility] temperature 2021-03-25 08:40:00 97.8 [degF] Common [facility] bmi 2021-03-25 08:40:00 33.01 kg/m2 [facility] oximetry 2021-03-25 08:40:00 98 % [facility] respiratory rate 2021-03-25 08:40:00 16 /min Comm on [facility] - [facility] blood pressure 2021-03-25 08:40:00 136 mm[Hg] [facility] - systolic [facility] blood pressure 2021-03-25 08:40:00 76 mm[Hg] Common [facility] - diastolic [facility] Systolic (mm Hg) 2023-01-12 20:10:00 Brodie rial [place] Diastolic (mm Hg) 2023-01-12 20:10:00 Mem orial Michael Heart Rate 2023-01-12 20:10:00 [facility] Height 2023-01-12 20:10:00 5 [ft_i] [facility] Weight 2023-01-12 20:10:00 [facility] BMI Calculated 2023-01-12 20:10:00 Memori al [place] Respitory Rate 2021-09-26 19:20:00 Memori al [place] Systolic (mm Hg) 2021-09-26 19:20:00 Brodie rial [place] Diastolic (mm Hg) 2021-09-26 19:20:00 Mem orial Michael Respitory Rate 2021-09-26 19:05:00 Memori al Michael Systolic (mm Hg) 2021-09-26 19:05:00 Brodie rial [place] Diastolic (mm Hg) 2021-09-26 19:05:00 Mem orial [place] Respitory Rate 2021-09-26 18:50:00 Db agrawal Michael Systolic (mm Hg) 2021-09-26 18:50:00 Brodie ba Michael Diastolic (mm Hg) 2021-09-26 18:50:00 Mem orial [place] Weight 2021-09-26 16:27:00 [facility] BMI Calculated 2021-09-26 16:27:00 Memori al [place] Heart Rate 2021-09-26 15:54:00 [facility] [place] Height 2021-09-24 19:39:00 175.26 cm [facility] Height 2021-09-24 15:25:00 175.26 cm [facility] Weight 2021-09-24 15:25:00 [facility] [place] BMI Calculated 2021-09-24 15:25:00 Memstarla agrawal [facility] Procedures Procedure Date / Time Performing Clinician Source Performed NOTICE OF PRIVACY 2023-01-07 13:09:51 Doctor Unassigned, No [facility] PRACTICES Name [facility] CONSENT/REFUSAL FOR 2023-01-07 13:09:26 Doctor Unassigned, No [facility] DIAGNOSIS AND TREATMENT Name [facility] ASSIGNMENT OF BENEFITS 2023-01-07 13:08:59 Doctor Unassigned, No [facility] Name [facility] TRANSTHORACIC ECHO (TTE) 2022-08-13 20:02:00 Andre David [facility] COMPLETE W/ CONTRAST Medical [facility] POCT GLUCOSE (AUTOMATED) 2022-08-13 17:40:00 Alexandre Montemayor [facility] POCT GLUCOSE (AUTOMATED) 2022-08-13 13:32:00 Alexandre Montemayor [facility] MAGNESIUM 2022-08-13 09:50:00 Alexandre Montemayor [facility] BASIC METABOLIC PANEL 2022-08-13 09:50:00 Alexandre Montmeayor [facility] (NA, K, CL, CO2, Medical [place] GLUCOSE, BUN, CREATININE, CA) CBC WITH DIFF 2022-08-13 09:50:00 Alexandre Montemayor [facility] PHOSPHORUS 2022-08-13 03:53:00 [facility] TROPONIN I 2022-08-13 02:32:00 Alexandre Montemayor o [facility] POCT GLUCOSE (AUTOMATED) 2022-08-13 01:22:00 Alexandre Montemayor [facility] CT ANGIOGRAM CHEST 2022-08-12 19:53:05 Leonora Ruby [facility] CT ANGIOGRAM 2022-08-12 19:53:05 Tung [facility] ABDOMEN/PELVIS [facility] HB ECG ROUTINE & RHYTHM 2022-08-12 19:09:59 Leonora Ruby [facility] TROPONIN I 2022-08-12 19:08:00 [facility]THM 2022-08-12 18:01:56 Leonora Ruby [facility] LIPASE 2022-08-12 17:05:00 [facility] 2022-08-12 17:05:00 [facility] COMP. METABOLIC PANEL 2022-08-12 17:05:00 Leonora Ruby [facility] ([id number]) [facility] CBC WITH DIFF 2022-08-12 17:05:00 [facility] GLYC[facility]EMOGLOBIN 2022-08-12 17:05:00 Andre David [facility] (A1C) [facility] PROTHROMBIN TIME / INR 2022-08-12 17:05:00 Tung [facility] URINALYSIS 2022-08-12 17:05:00 Tung [facility] N-TERMINAL PRO-BNP 2022-08-12 17:05:00 Leonora Ruby [facility] HB ECG ROUTINE & RHYTHM 2022-08-12 16:51:46 Leonora Ruby [facility] CONSENT/REFUSAL FOR 2022-08-12 16:16:12 Doctor Unassigned, No [facility] DIAGNOSIS AND TREATMENT Name [facility] REFERRAL- 2022-06-16 05:01:00 Doctor Unassigned, No [facility] REQUEST/RESPONSE Name [facility] CT, urogram 2018-07-07 00:00:00 [facility] dical Group Procedure on [facility] foot<sup>4</sup> 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Cory Haley n amputation<sup>1</sup> Laminectomy<sup>2</sup> [facility] Plan of Care Planned Activity Planned Date Details Comments Source Diagnostic Test 2018-07-07 cytology, urine [facility] Pending 00:00:00 [code = cytology, Group urine] Encounters Start End Encounter Admission Attending Care Care Encounter Source Date/Time Date/Time Type Type Clinicians Facility Department ID 2022-09-15 Outpatient Oliveira, STLMLC STLMLC [id number] Common 09:28:02 [facility] [id number] [facility] 2021-10-22 Outpatient Oliveira, STLMLC STLMLC [id number] Common 14:27:24 Maira [id number] [facility] 2021-10-22 Outpatient Oliveira, STLMLC STLMLC [id number] Common 14:18:00 Maira [address] [facility] 2021-10-22 Outpatient Howell, STLMLC STLMLC [id number] Common 13:35:45 Regina [address] [facility] 2021-10-22 Outpatient Howell, STLMLC STLMLC [id number] Common 12:41:58 Regina [id number] [facility] 2021-10-22 Outpatient Howell, STLMLC STLMLC [id number] Common 12:40:52 Regina [address] [facility] 2021-10-22 Outpatient Howell, STLMLC STLMLC [id number] Common 12:12:33 Regina [address] [facility] 2021-10-22 Outpatient Howell, STLMLC STLMLC [id number] Common 11:56:49 Regina [address] [facility] 2021-10-22 Outpatient Howell, STLMLC STLMLC [id number] Common 11:56:09 Regina [address] [facility] 2021-10-22 Outpatient Howell, STLMLC STLMLC [id number] Common 11:21:52 Regina [address] [facility] 2021-10-22 Outpatient Howell, STLMLC STLMLC [id number] Common 11:07:15 Regina [id number] [facility] 2021-10-22 Outpatient Howell, STLMLC STLMLC [id number] Common 11:06:53 Regina [address] [facility] 2021-10-22 Outpatient Howell, STLMLC STLMLC [id number] Common 10:59:53 Regina [id number] [facility] 2021-07-28 Emergency [facility] [id number] Univers 23:28:16 ity [facility] 2023-02-12 2023-02-12 Outpatient MHIE MHIE [id number] Memoria 08:15:00 08:15:00 01 eb Rodriguez 2023-01-12 2023-01-13 Outpatient MHIE MNA [id number] Memoria 20:15:00 04:59:59 Neurology 00 eb Rodriguez 2023-01-12 2023-01-12 Outpatient Lis MHMISCHER MHMISCHER [id number] 15:15:00 23:59:59 Jeison 00 Grayson 2023-01-12 2023-01-12 Outpatient MHIE MHIE [id number] Memoria 15:15:00 15:15:00 00 eb Rodriguez 2023-01-12 2023-01-12 Outpatient MHIE MHIE [id number] Memoria 15:15:00 15:15:00 00 eb Rodriguez 2023-01-07 2023-01-[address] [facility] 1.2.840.114 [id number] Univers 08:11:54 23:59:00 Encounter [place] 350.1.13.10 ity [facility] 4.2.7.2.686 [facility] [id number] [place] [id number] Branch 2023-01-07 2023-01-07 Outpatient R RADIOLOGY [facility] [id number] Univers 00:00:00 23:59:00 ity [facility] 2022-10-28 2022-10-28 (TEL) [facility] [id number] Co mmon 00:00:00 00:00:00 [facility] 2022-08-14 2022-08-14 Transition ELIUD Rice 1.2.840.114 [id number] Univers 00:00:00 00:00:00 of Care [place] Reji ELAM 350.1.13.10 it y of [place].7.2.686 [place] [id number] [facility] [address] 2022-08-14 2022-08-14 (TEL) STLMLC STLMLC [id number] Co mmon 00:00:00 00:00:00 [facility] 2022-08-12 2022-08-13 Outpatient X LUCERO [facility] [id number] Univers 10:44:00 16:22:00 EARL ity of [facility] 2022-08-12 2022-08-13 Emergency Ruby Leonora [facility] 1.2.840 .114 [id number] Univers 10:44:00 16:22:00 Alexandre Montemayor 350.1.13.10 ity of [place] 4.2.7.2.686 [facility] [id number] [facility] [address] 2022-06-22 2022-06-22 (TEL) STLMLC STLMLC [id number] Co mmon 00:00:00 00:00:00 [facility] 2022-06-19 2022-06-19 (MCR WELL) STLMLC STLMLC [id number] Common 00:00:00 00:00:00 Medicare Spiri t Wellness - [facility] 2022-06-19 2022-06-19 OFFICE STLMLC STLMLC [id number] Co mmon 00:00:00 00:00:00 VISIT EST Spir it PT LEVEL 3 - [facility] 2022-06-16 2022-06-16 Orders Doctor MEGAN 1.2.840.114 [id number] Univers 00:00:00 00:00:00 Only Unassigned, ANASTASIA 350.1.13.10 ity of [facility] 4.2.7.2.686 Ty as [phone] [facility] [address] 2022-06-15 2022-06-15 [facility] [id number] Co mmon 00:00:00 00:00:00 VISIT EST Spir it PT LEVEL 3 - [facility] 2022-05-21 2022-05-[address] [facility] 1.2.840.114 [id number] Univers 00:00:00 00:00:00 Wallace [facility] 350.1.13.10 it y of [place] 4.2.7.2.686 Ty as MANOJ?BLEA [id number] [place] dictanja [address] OFFICE [facility] 2022-05-19 2022-05-19 Office [facility] 1.2.840.114 [id number] Univers 08:45:00 09:00:00 Visit Brian Servin HEALTH 350.1.13.10 it y of [place] 4.2.7.2.686 Ty as MANOJ?BLEA [id number] [address] OFFICE [facility] 2022-05-19 2022-05-19 Outpatient R SARBJIT [facility] [id number] Univers 08:45:00 08:45:00 BRIAN ity [facility] 2022-05-19 2022-05-19 [facility] [id number] Univers 08:45:00 08:45:00 BRIAN ity [facility] 2022-05-16 2022-05-16 Outpatient R RADIOLOGY [facility] [id number] Univers 07:47:58 23:59:00 ity of [facility] 2022-05-16 2022-05-[address] [facility] 1.2.840.114 [id number] Univers 07:47:58 23:59:00 Encounter [place] 350.1.13.10 ity of [place] 4.2.7.2.686 [place] [facility] [id number] [facility] [address] [place] 2022-05-16 2022-05-16 Outpatient R RADIOLOGY [facility] [id number] Univers 07:47:58 23:59:00 ity of [facility] 2022-05-14 2022-05-14 Hospital Radiology [facility] 1.2.840.114 [id number] Univers 08:30:00 08:30:00 Encounter Y HEALTH 350.1.13.10 ity of [facility] 4.2.7.2.[place] [id number] [address] 2022-05-14 2022-05-14 Outpatient R RADIOLOGY [facility] [id number] Univers 00:00:00 00:00:00 ity of [facility] 2022-05-14 2022-05-14 Outpatient R RADIOLOGY [facility] [id number] Univers 00:00:00 00:00:00 ity of [facility] 2022-05-12 2022-05-12 Telephone [facility] 1.2.840.114 [id number] Univers 00:00:00 00:00:00 Wallace Edge HEALTH 350.1.13.10 it y of [place] 4.2.7.2.686 Ty as MANOJ?BLEA [id number] [address] MEDICAL OFFICE [facility] 2022-05-11 2022-05-11 [facility]patient [facility] [id number] Univers 15:14:20 23:59:00 [facility] 2022-05-11 2022-05-11 Hospital [facility] 1.2.840.114 [id number] Univers 15:14:20 23:59:00 Encounter Wallace CORDERO 350.1.13.10 ity of [place]2.7.2.686 [place] [id number] [address] 2022-05-11 2022-05-11 Office [facility] 1.2.023.030 [id number] Univers 14:45:00 14:45:00 Visit Wallace [facility] HEALTH 350.1.13.10 it y of [place] 4.2.7.2.686 Ty as MANOJ?BLEA [id number] [facility] [address] MEDICAL OFFICE [facility] 2022-05-11 2022-05-11 [facility]patient [facility] [id number] Univers 14:45:00 14:34:12 [facility] 2022-05-07 2022-05-07 Telephone [facility] 1.2.840.114 [id number] Univers 00:00:00 00:00:00 Wallace [facility] 350.1.13.10 it y of [place] 4.2.7.2.686 [place] as MANOJ?BLEA [id number] [place] nikita THOMPSON [address] [place] [address] OFFICE [facility] 2022-03-05 2022-03-05 (TEL) STLMLC STLMLC [id number] Co mmon 00:00:00 00:00:00 [facility] 2022-03-03 2022-03-03 [facility] [id number] Univers 13:04:32 23:59:00 [facility] 2022-03-03 2022-03-03 Office [facility] 1.2.840.114 [id number] Univers 13:45:00 14:00:00 Visit [facility] 350.1.13.10 it y of [place] 4.2.7.2.686 Ty as MANOJ?BLEA [id number] [place] nikita THOMPSON [address] [place] [address] 2022-03-03 2022-03-03 Outpatient [facility] [id number] Univers 13:45:00 13:45:[facility] 2022-02-16 [facility] [id number] Univers 13:27:13 23:59:00 [facility] 2022-02-16 2022-02-16 Outpatient [facility] [id number] Univers 13:27:13 23:59:00 BRIAN [facility] 2022-02-16 2022-02-16 Office [facility] 1.2.840.114 [id number] Univers 13:45:00 14:00:00 Visit [facility] 350.1.13.10 it y of [place] 4.2.7.2.686 Ty as MANOJ?BLEA [id number] [place] n[place] THOMPSON [address] [place] [address] 2022-02-16 2022-02-16 Outpatient [facility] [id number] Univers 13:45:00 13:45:00 BRIAN [facility] 2022-02-16 2022-02-16 Orders Doctor MEGAN 1.2.840.114 [id number] Univers 00:00:00 00:00:00 Only Unassigned, ANASTASIA 350.1.13.10 ity of [facility] 4.2.7.2.686 [place] as [id number] [address] 2022-02-16 2022-02-[address] [facility] 1.2.568.644 [id number] Univers 00:00:00 00:00:00 Brian [facility] 350.1.13.10 it y of [place] 4.2.7.2.686 Ty as MANOJ?BLEA [id number] [address] MEDICAL OFFICE [facility] 2022-02-05 2022-02-05 Orders Doctor MEGAN 1.2.840.114 [id number] Univers 00:00:00 00:00:00 Only Unassigned, ANASTASIA 350.1.13.10 ity of [facility] 4.2.7.2.686 Ty as [id number] [address] 2022-02-04 2022-02-04 OFFICE STLMLC STLMLC [id number] Co mmon 00:00:00 00:00:00 VISIT EST Spir it PT LEVEL 3 - [facility] 2022-01-19 2022-01-19 (TEL) STLMLC STLMLC [id number] Co mmon 00:00:00 00:00:00 Spirit - [facility] 2022-01-05 2022-01-05 OFFICE STLMLC STLMLC [id number] Co mmon 00:00:00 00:00:00 VISIT EST Spir it PT LEVEL 3 - [facility] 2021-12-22 2021-12-22 OFFICE STLMLC STLMLC [id number] Co mmon 00:00:00 00:00:00 VISIT Spirit ESTAB PT - CHI LEVEL 4 [facility] 2021-11-20 2021-11-20 (TEL) STLMLC STLMLC [id number] Co mmon 00:00:00 00:00:00 Spirit - [facility] 2021-10-21 2021-10-21 (TEL) STLMLC STLMLC [id number] Co mmon 00:00:00 00:00:00 [facility] 2021-10-02 2021-10-02 (TEL) STLMLC STLMLC [id number] Co mmon 00:00:00 00:00:00 [facility] 2021-09-26 2021-09-26 Day nullFlavo [facility] [id number] Memoria 14:19:00 19:21:00 Surgery r [place] 02 [facility] 2021-09-26 2021-09-26 Day [facility] [id number] Memoria 14:19:00 19:21:00 Surgery r [place] 02 [facility] 2021-09-26 2021-09-26 Outpatient CURT Nash [facility]PL [id number] 08:19:00 13:21:00 [place] 2021-09-26 2021-09-26 Outpatient LORI NASH MHBL [id number] MHHERON 08:19:00 13:21:00 [place] 2021-09-12 2021-09-12 (TEL) STLMLC STLMLC [id number] Co mmon 00:00:00 00:00:00 [facility] 2021-09-08 2021-09-08 (TEL) STLMLC STLMLC [id number] Co mmon 00:00:00 00:00:00 [facility] 2021-09-02 2021-09-02 Outpatient [facility] [id number] Univers 06:24:00 09:17:00 CHE estrada [facility] 2021-09-02 2021-09-02 [facility] 1.2.840.114 [id number] Univers 06:24:00 09:17:00 Encounter Che [facility].13.10 [facility].2.7.2.686 [facility] [id number] [address] 2021-09-02 2021-09-02 Surgery [facility] 1.2.479.448 [id number] Univers 07:30:00 08:31:00 Che CORDERO 350.1.13.10 ity of [place] 4.2.7.2.686 Surgery [facility] SURGICAL [id number] [facility] [address] 2021-09-01 2021-09-01 Outpatient R NIURKA [facility] [id number] Univers 09:45:00 09:45:00 CHE chinchilla [facility] 2021-09-01 2021-09-01 Laboratory Only, Adc Test [facility] 1.2.840. 114 [id number] Univers 08:58:02 09:13:02 Only Che Bah 350.1.13. 10 ity of [place] 4.2.7.2.686 [facility] [id number] [facility] [address] 2021-09-01 2021-09-01 Orders Doctor MEGAN 1.2.840.114 [id number] Univers 00:00:00 00:00:00 Only Unassigned, ANASTASIA 350.1.13.10 ity of [facility] 4.2.7.2.686 Ty as [id number] [facility] [address] 2021-09-01 2021-09-01 (TEL) STLMLC STLMLC [id number] Co mmon 00:00:00 00:00:00 [facility] 2021-08-26 2021-08-26 OFFICE STLMLC STLMLC [id number] Co mmon 00:00:00 00:00:00 VISIT EST Spir it PT LEVEL 3 - [facility] 2021-08-19 2021-08-19 (TEL) STLMLC STLMLC [id number] Co mmon 00:00:00 00:00:00 [facility] 2021-08-13 2021-08-13 Outpatient R SARBJIT [facility] [id number] Univers 13:15:00 13:15:00 BRIAN amor [facility] 2021-08-13 2021-08-[address] [facility] 1.2.840.114 [id number] Univers 12:47:28 13:02:28 Visit [facility] 350.1.13.10 it y of [place] 4.2.7.2.686 Ty as MANOJ?BLEA [id number] Me dical JULIOEY [address] [facility] OFFICE [facility] 2021-08-13 2021-08-13 Telephone [facility] 1.2.840.114 [id number] Univers 00:00:00 00:00:00 Wallace [facility] 350.1.13.10 it y of [facility] 4.2.7.2.686 Ty as SPECIALTI [id number] Me dical JAKE 198 [facility] 2021-07-29 2021-07-29 (TEL) [facility] [id number] Co mmon 00:00:00 00:00:00 [facility] 2021-07-25 2021-07-25 (TEL) [facility] STLC [id number] Co mmon 00:00:00 00:00:00 [facility] 2021-07-21 2021-07-21 [facility] 1.2.840.114 [id number] Univers 13:35:00 23:59:00 Encounter [facility] 350.1.13.10 ity of [place] 4.2.7.2.686 Ty as Manoj?Blea [id number] [place] n[place]ita thompson 809 [facility] 2021-07-21 2021-07-21 [facility] [id number] Univers 13:35:00 23:59:00 [facility] 2021-07-21 2021-07-21 [facility] [id number] Univers 13:30:00 14:45:07 [facility] 2021-07-21 2021-07-21 Office [facility] 1.2.399.438 [id number] Univers 13:00:10 14:45:07 Visit [facility] 350.1.13.10 it y of [place] 4.2.7.2.686 Ty as MANOJ?BLEA [id number] [place] THOMPSON 198 [facility] 2021-07-21 2021-07-21 [facility] [id number] Univers 13:30:00 13:30:00 WALLACE chinchilla [facility] 2021-07-21 2021-07-21 (TEL) STLMLC STLMLC [id number] Co mmon 00:00:00 00:00:00 [facility] 2021-07-11 2021-07-11 (TEL) STLMLC STLMLC [id number] Co mmon 00:00:00 00:00:00 [facility] 2021-07-11 2021-07-11 OFFICE STLMLC STLMLC [id number] Co mmon 00:00:00 00:00:00 VISIT [facility] PT - CHI LEVEL 1 [facility] 2021-07-07 2021-07-07 (TEL) STLMLC STLMLC [id number] Co mmon 00:00:00 00:00:00 [facility] 2021-06-29 2021-06-29 (TEL) STLMLC STLMLC [id number] Co mmon 00:00:00 00:00:00 [facility] 2021-06-24 2021-06-24 OFFICE STLMLC STLMLC [id number] Co mmon 00:00:00 00:00:00 VISIT [facility] PT - CHI LEVEL 4 [facility] 2021-06-13 2021-06-13 Emergency [facility] 1.2.840.114 [id number] Univers 14:19:00 18:37:00 Shannon Cordero 350.1.13.10 [facility] 4.2.7.2.686 [facility] [id number] [place] [address] [address] 2021-06-06 2021-06-06 Outpatient STLMLC STLMLC [id number] Common 00:00:00 00:00:00 [facility] 2021-05-05 2021-05-05 Outpatient STLMLC STLMLC [id number] Common 00:00:00 00:00:00 [facility] 2021-04-30 2021-04-30 Outpatient STLMLC STLMLC [id number] Common 00:00:00 00:00:00 [facility] 2021-04-30 2021-04-30 Outpatient STLMLC STLMLC [id number] Common 00:00:00 00:00:00 [facility] 2021-04-25 2021-04-25 Outpatient STLMLC STLMLC [id number] Common 00:00:00 00:00:00 [facility] 2021-04-03 2021-04-03 Outpatient STLMLC STLMLC [id number] Common 00:00:00 00:00:00 [facility] 2021-03-25 2021-03-25 OFFICE STLMLC STLMLC [id number] Co mmon 00:00:00 00:00:[address] 2021-01-24 2021-01-24 Outpatient STLMLC STLMLC [id number] Common 00:00:00 00:00:00 [facility] 2021-01-17 2021-01-17 Outpatient STLMLC STLMLC [id number] Common 00:00:00 00:00:00 [facility] 2021-01-13 2021-01-13 Outpatient STLMLC STLMLC [id number] Common 00:00:00 00:00:00 [facility] 2021-01-10 2021-01-10 Outpatient STLMLC STLMLC [id number] Common 00:00:00 00:00:00 [facility] 2020-12-31 2020-12-31 Outpatient STLMLC STLMLC [id number] Common 00:00:00 00:00:00 [facility] 2020-12-25 2020-12-25 [facility] [id number] Univers 13:45:00 13:45:00 WALLACE chinchilla [facility] 2020-12-25 2020-12-25 [facility] 1.2.784.800 [id number] 12:51:24 13:25:03 Visit [facility] 350.1.13.10 Surgical 4.2.7.2.686 Specialti [id number] es [address] [place] [address] 2020-12-23 2020-12-23 Outpatient Alec DOTSON [facility] [id number] Univers 13:45:00 13:45:00 WALLACE saleem [facility] 2020-12-23 2020-12-23 Outpatient STLMLC STLMLC [id number] Common 00:00:00 00:00:00 [facility] 2020-12-21 2020-12-21 Outpatient STLMLC STLMLC [id number] Common 00:00:00 00:00:00 [facility] 2020-12-19 2020-12-19 Outpatient STLMLC STLMLC [id number] Common 00:00:00 00:00:00 [facility] 2020-12-17 2020-12-17 Outpatient STLMLC STLMLC [id number] Common 00:00:00 00:00:00 [facility] 2020-12-17 2020-12-17 Outpatient STLMLC STLMLC [id number] Common 00:00:00 00:00:00 [facility] 2020 2020 Outpatient STLMLC STLMLC [id number] Common 00:00:00 00:00:00 [facility] 2020-12-09 2020-12-09 Outpatient STLMLC STLMLC [id number] Common 00:00:00 00:00:00 [facility] 2020-11-07 2020-11-07 Outpatient STLMLC STLMLC [id number] Common 00:00:00 00:00:00 [facility] 2020-11-04 2020-11-04 Outpatient STLMLC STLMLC [id number] Common 00:00:00 00:00:00 [facility] 2020-11-04 2020-11-04 Outpatient STLMLC STLMLC [id number] Common 00:00:00 00:00:00 [facility] 2020-10-15 2020-10-15 [facility] 7501 [facility] 07:11:00 12:00:00 [place] 2020-09-09 2020-09-09 Outpatient STLMLC STLMLC [id number] Common 00:00:00 00:00:00 [facility] 2020-08-14 2020-08-14 Outpatient Young_J MMG MMG [id number] [place] 02:37:00 02:37:00 [facility] 2020-07-16 2020-07-16 Outpatient STLMLC STLMLC [id number] Common 00:00:00 00:00:00 [facility] 2020-07-04 2020-07-04 [facility] [id number] Univers 08:00:00 08:00:00 [facility] 2020-05-06 2020-05-06 [facility] [id number] Common 10:52:00 10:52:00 [facility] [address] Road [facility] 2020-04-15 2020-04-15 Outpatient Alec SCHAFFER [facility] [id number] Univers 15:45:00 15:45:00 [facility] 2020-04-11 2020-04-11 [facility] [id number] Univers 15:30:00 15:30:00 [facility] 2020-04-10 2020-04-10 Outpatient [facility] [id number] Common 13:19:00 13:19:00 [facility] it Road [facility] 2020-04-08 2020-04-08 Outpatient [facility] [id number] Common 11:08:00 11:08:00 [facility] Spir [address] Road [facility] 2020-04-05 2020-04-05 Outpatient [facility] [id number] Common 18:34:00 18:34:00 [facility] it Road [facility] 2020-03-07 2020-03-07 [facility] [id number] Univers 15:00:00 15:00:00 [facility] 2020-01-09 2020-01-09 Outpatient [facility] [id number] Common 14:23:00 14:23:[address] [facility] it Road [facility] 2020-01-08 2020-01-08 Outpatient [facility] [id number] Common 08:00:00 08:00:[address] [facility] 2019-11-22 2019-11-22 Outpatient [facility] [id number] Common 19:45:00 19:45:[address] [facility] 2019-11-08 2019-11-08 Outpatient [facility] [id number] Common 09:12:00 09:12:[address] [facility] 2019-11-07 2019-11-07 Outpatient [facility] [id number] Common 08:17:00 08:17:[address] [facility] 2019-10-19 2019-10-19 Outpatient [facility] [id number] Common 15:57:00 15:57:[address] [facility] 2019-10-18 2019-10-18 Outpatient [facility] [id number] Common 09:24:00 09:24:[address] [facility] 2019-10-17 2019-10-17 Outpatient [facility] [id number] Common 09:00:00 09:00:[address] [facility] 2019-10-11 2019-10-11 Outpatient O [facility] [id number] Univers 15:30:52 15:30:[facility] 2019-10-09 2019-10-09 Out[facility] [id number] Common 10:27:00 10:27:[address] [facility] 2019-10-09 2019-10-09 Outpatient [facility] [id number] Common 09:00:00 09:00:[address] [facility] 2018-08-08 2018-08-08 Saravanan RINCON [place] - [id number] M atagor 00:00:00 00:00:00 Terrance, DO: Discovery hasmukh ramon [address] [facility] [address], [facility] [place], [facility] [address] , Ph. [phone] 2018-08-04 2018-08-04 Jose RINCON [place] - [id number] M atagor 00:00:00 00:00:00 MD Bobbi: medrado [address] [place] [address] - [address], [place] [address] , Ph. 2018-07-07 2018-07-07 Jose Garcia MM [place] - [id number] M atagor 00:00:00 00:00:00 MD Bobbi: [address] - [address], [place] [address] , Ph. Results Test Description Test Time Test Comments Results Result Comments Source Transthoracic echo (TTE) 2022-08-13 22:32:11 Test Item Value Reference Range Interpretation Comme nts Height (test code = 7860984356) in Weight (test code = 3348747620) lbs Systolic BP (test code = 9280963309) mmHg Diastolic BP (test code = 6866427860) mmHg Heart Rate (test code = 9830145694) bpm BSA (test code = 4526428933) 2.06 m2 Ao root diam (test code = 9158510081) 4.10 cm Aortic root (test code = 7648130618) 4.1 cm Ao root annulus (test code = 4.1 cm 2320850330) LVOT diameter (test code = 3379096531) 2.13 cm LVOT area (test code = 9683476648) 3.60 cm2 LA size (test code = 7953779252) 2.7 cm LAV(MOD-sp4) (test code = 7351833073) 46.70 mL E wave decelartion time (test code = 0.17 s 1690363207) MV stenosis pressure 1/2 time (test 51.2 ms code = 2051922854) MV Peak A Bobby (test code = 6037016928) 65.7 cm/s MV Peak E Bobby (test code = 2301893824) 52.5 cm/s E/A ratio (test code = 6178341924) ratio MV Prop V (test code = 2680819520) 58.90 cm/s MV E/e' septal (test code = 8.6 cm/s 5542841318) Tapse (test code = 7876223669) 2.07 cm LVOT stroke volume (test code = 56.50 cm3 8459149535) LVOT peak bobby (test code = 7979746929) 83.0 cm/s LVOT mn grad (test code = 8549327806) mmHg AV LVOT peak gradient (test code = mmHg 2947424317) LVOT peak VTI (test code = 0210882920) 15.9 cm LV V1 mean (test code = 5897700918) 57.80 cm/s Aortic valve mean velocity (test code 86.0 cm/s = 1402201428) Ao peak bobby (test code = 9276733067) 113.0 cm/s Ao VTI (test code = 4517868202) 21.8 cm AV area by cont VTI (test code = 2.6 cm2 1780972759) AV area peak bobby (test code = 2.6 cm2 7622005353) Ao max PG (test code = 1094053262) 5.10 mm[Hg] AV peak gradient (test code = mmHg 4688727108) AV valve area (test code = 2487643419) 2.60 cm2 AV mean gradient (test code = mmHg 5620382521) LVIDD (test code = 4386088233) 4.80 cm Left Ventricular End Diastolic Volume 109.8 mL by Teichholz Method (test code = 0987178) IVS (test code = 6445110712) 1.03 cm Interventricular Septum Diastolic 1.03 cm Thickness by 2D (test code = 6647491) LVPWD (test code = 8930929709) 1.04 cm PW (test code = 6490786110) 1.04 cm 0.6-1.1 EF(Teich) (test code = 5726269331) 64.10 % LVIDS (test code = 5293918837) 3.20 cm Left Ventricular End Systolic Volume 39.4 mL by Teichholz Method (test code = 0305413) FS (test code = 4939658156) 35 % EF - 2D (test code = 50963060) 64.10 % Radiology Study observation (narrative) (test code = 36148-8) SOFIYA (test code = SOFIYA) ?Left?Ventricle: Left [...] mL of Lumason ultrasound enhancing agent used. [facility] GLUCOSE (AUTOMATED)2022-08-13 18:19:00 Test Item Value Reference Range Interpretation Comments POCT GLU (test code = 2725000178) 196 mg/dL 70-110 H Lab Interpretation (test code = Abnormal 20780-1) [facility] GLUCOSE (AUTOMATED)2022-08-13 13:59:31 Test Item Value Reference Range Interpretation Comments POCT GLU (test code = 2822710670) 146 mg/dL 70-110 H Lab Interpretation (test code = Abnormal 22632-5) [facility] 01:25:38 Test Item Value Reference Range Interpretation Comments POCT GLU (test code = 7078081572) 102 mg/dL 70-110 Lab Interpretation (test code = Normal 96656-2) [facility] [id number] 19:44:37 Test Item Value Reference Interpretation Comments Range TROPONIN I (test 0.004 ng/mL See_Comment [Automated code = [id number]) message] The system which generated this result [...] biotin. Lab Interpretation Normal (test code = 55034-7) [facility] 19:07:00 Test Item Value Reference Range Interpretation Comments Segs (test code = Segs) 57.5 45.0-75.0 [facility] HospitalRlcrmfvPIDZRYBKNI4931-04-78 19:07:00 Test Item Value Reference Range Interpretation Comments Lymphocytes (test code = Lymphocytes) 28.0 20.0-40.0 [facility] HospitalIgzbzvgQSLBEKEXUU6714-32-48 19:07:00 Test Item Value Reference Range Interpretation Comments Monocytes (test code = Monocytes) 9.6 2.0-12.0 [facility] HospitalJolhrszNSXFZLQXAB4529-62-06 19:07:00 Test Item Value Reference Range Interpretation Comments Eosinophils (test code = 4.4 See_Comment [A utomated message] The Eosinophils) system which ge nerated this result tra nsmitted reference range : <=4.0. The reference r glenn was not used to int erpret this result as normal/abnormal . [facility] HospitalQtzbgrxMSPFOEBFFF2215-44-76 19:07:00 Test Item Value Reference Range Interpretation Comments Basophils (test code = 0.5 See_Comment [Aut omated message] The Basophils) system which ge nerated this result tra nsmitted reference range : <=1.0. The reference r glenn was not used to int erpret this result as normal/abnormal . [facility] HospitalDvwlxspHVHCJNMGVH5174-56-93 19:07:00 Test Item Value Reference Range Interpretation Comments Neutrophils # (test code = Neutrophils 3.3 1.5-8.1 #) [facility] HospitalTswgnxlIJCRGOUXJS8869-80-17 19:07:00 Test Item Value Reference Range Interpretation Comments Lymphocytes # (test code = Lymphocytes 1.6 1.0-5.5 #) [facility] HospitalCsojkjbXXLENJMTWC6029-22-28 19:07:00 Test Item Value Reference Range Interpretation Comments Monocytes # (test code 0.5 See_Comment [Aut omated message] The = Monocytes #) system which generated this result tra nsmitted reference range : <=0.8. The reference r glenn was not used to int erpret this result as normal/abnormal . [facility] HospitalVhgnpvjPAZZVLLOLD2057-96-86 19:07:00 Test Item Value Reference Range Interpretation Comments Eosinophils # (test code 0.2 See_Comment [A utomated message] The = Eosinophils #) system whic h generated this result tra nsmitted reference range : <=0.5. The reference r glenn was not used to int erpret this result as normal/abnormal . [facility] HospitalDltmdnkNOZRZXTQFP4431-64-83 19:07:00 Test Item Value Reference Range Interpretation Comments WBC (test code = WBC) 5.7 3.7-10.4 [facility] HospitalUonbvucJHJJPRLQUO9240-85-38 19:07:00 Test Item Value Reference Range Interpretation Comments RBC (test code = RBC) 4.95 4.70-6.10 [facility] HospitalUaatnxfUIEJBRVZRS0853-12-51 19:07:00 Test Item Value Reference Range Interpretation Comments Hgb (test code = Hgb) 14.1 14.0-18.0 [place] 575531-12-29 19:07:00 Test Item Value Reference Range Interpretation Comments Hct (test code = Hct) 42.2 42.0-54.0 [facility] HospitalLvoilvaKDKHIGSHGX8922-68-56 19:07:00 Test Item Value Reference Range Interpretation Comments MCV (test code = MCV) 85.3 80.0-94.0 [facility] HospitalJeqhgzpMUNSISLERI2820-00-61 19:07:00 Test Item Value Reference Range Interpretation Comments MCH (test code = MCH) 28.6 pg 27.0-31.0 [facility] CenterAwincucCWKAQGFURF1755-54-11 19:07:00 Test Item Value Reference Range Interpretation Comments MCHC (test code = MCHC) 33.5 32.0-36.0 [facility] HospitalIjyzcavDFRTUUGOMW4710-23-37 19:07:00 Test Item Value Reference Range Interpretation Comments RDW (test code = RDW) 14.7 11.5-14.5 [facility] HospitalXwauvmnRMQQOOSTJN5888-74-35 19:07:00 Test Item Value Reference Range Interpretation Comments Platelet (test code = Platelet) 219 133-450 [facility] HospitalFicjmjkPHXQDVFAVD6554-37-62 19:07:00 Test Item Value Reference Range Interpretation Comments MPV (test code = MPV) 8.2 7.4-10.4 [facility] EIKYDMJTS4718-94-69 19:07:00 Test Item Value Reference Range Interpretation Comments Hgb A1C (test code = Hgb A1C) 6.4 [facility] YNJDY3529-94-95 19:07:00 Test Item Value Reference Range Interpretation Comments Glucose Lvl (test code = Glucose Lvl) 153 70-99 [facility] QBTLQ2571-03-48 19:07:00 Test Item Value Reference Range Interpretation Comments BUN (test code = BUN) 18 7-22 [facility] WHKXX5090-43-94 19:07:00 Test Item Value Reference Range Interpretation Comments Creatinine Lvl (test code = Creatinine 1.44 0.50-1.40 Lvl) [facility] AZBCK6710-06-08 19:07:00 Test Item Value Reference Range Interpretation Comments Sodium Lvl (test code = Sodium Lvl) 132 135-145 [facility] CYFPZ0311-66-94 19:07:00 Test Item Value Reference Range Interpretation Comments Potassium Lvl (test code = Potassium 4.8 3.5-5.1 Lvl) [place] 185041-12-29 19:07:00 Test Item Value Reference Range Interpretation Comments Chloride Lvl (test code = Chloride Lvl) 99 95-109 [place] 185041-12-29 19:07:00 Test Item Value Reference Range Interpretation Comments CO2 (test code = CO2) 27 24-32 [place] 185041-12-29 19:07:00 Test Item Value Reference Range Interpretation Comments Calcium Lvl (test code = Calcium Lvl) 9.7 8.5-10.5 [place] 185041-12-29 19:07:00 Test Item Value Reference Range Interpretation Comments AGAP (test code = AGAP) 10.8 10.0-20.0 [place] 185041-12-29 19:07:00 Test Item Value Reference Range Interpretation Comments eGFR (test code = eGFR) 52 [place] 575531-12-29 19:07:00 Test Item Value Reference Range Interpretation Comments Segs (test code = Segs) 57.5 45.0-75.0 [place] 575531-12-29 19:07:00 Test Item Value Reference Range Interpretation Comments Lymphocytes (test code = Lymphocytes) 28.0 20.0-40.0 [place] 575531-12-29 19:07:00 Test Item Value Reference Range Interpretation Comments Monocytes (test code = Monocytes) 9.6 2.0-12.0 [place] 575531-12-29 19:07:00 Test Item Value Reference Range Interpretation Comments Eosinophils (test code = 4.4 See_Comment [A utomated message] The Eosinophils) system which ge nerated this result tra nsmitted reference range : <=4.0. The reference r glenn was not used to int erpret this result as normal/abnormal . [place] 575531-12-29 19:07:00 Test Item Value Reference Range Interpretation Comments Basophils (test code = 0.5 See_Comment [Aut omated message] The Basophils) system which ge nerated this result tra nsmitted reference range : <=1.0. The reference r glenn was not used to int erpret this result as normal/abnormal . [place] 575531-12-29 19:07:00 Test Item Value Reference Range Interpretation Comments Neutrophils # (test code = Neutrophils 3.3 1.5-8.1 #) [facility] HospitalAstjhwqPFODOOCMLU3164-11-95 19:07:00 Test Item Value Reference Range Interpretation Comments Lymphocytes # (test code = Lymphocytes 1.6 1.0-5.5 #) [facility] HospitalGpqhszmPVMBYNYMNM1635-69-33 19:07:00 Test Item Value Reference Range Interpretation Comments Monocytes # (test code 0.5 See_Comment [Aut omated message] The = Monocytes #) system which generated this result tra nsmitted reference range : <=0.8. The reference r glenn was not used to int erpret this result as normal/abnormal . [facility] HospitalHharfuvLQXLMQNANS2761-09-64 19:07:00 Test Item Value Reference Range Interpretation Comments Eosinophils # (test code 0.2 See_Comment [A utomated message] The = Eosinophils #) system whic h generated this result tra nsmitted reference range : <=0.5. The reference r glenn was not used to int erpret this result as normal/abnormal . [facility] HospitalNrffcwlBBJMDQVEHE1610-37-23 19:07:00 Test Item Value Reference Range Interpretation Comments WBC (test code = WBC) 5.7 3.7-10.4 [place] 575531-12-29 19:07:00 Test Item Value Reference Range Interpretation Comments RBC (test code = RBC) 4.95 4.70-6.10 [place] 575531-12-29 19:07:00 Test Item Value Reference Range Interpretation Comments Hgb (test code = Hgb) 14.1 14.0-18.0 [place] 575531-12-29 19:07:00 Test Item Value Reference Range Interpretation Comments Hct (test code = Hct) 42.2 42.0-54.0 [place] 575531-12-29 19:07:00 Test Item Value Reference Range Interpretation Comments MCV (test code = MCV) 85.3 80.0-94.0 [place] 575531-12-29 19:07:00 Test Item Value Reference Range Interpretation Comments MCH (test code = MCH) 28.6 pg 27.0-31.0 [place] 575531-12-29 19:07:00 Test Item Value Reference Range Interpretation Comments MCHC (test code = MCHC) 33.5 32.0-36.0 [facility] HospitalQpdnpkoKYOLNRUNYQ7788-61-12 19:07:00 Test Item Value Reference Range Interpretation Comments RDW (test code = RDW) 14.7 11.5-14.5 [facility] HospitalDlrzddyEULSSSYFQD7267-14-55 19:07:00 Test Item Value Reference Range Interpretation Comments Platelet (test code = Platelet) 219 133-450 [facility] HospitalYhthpxfCGEDYYCPGE5076-20-18 19:07:00 Test Item Value Reference Range Interpretation Comments MPV (test code = MPV) 8.2 7.4-10.4 [facility] UPTMHAWQH7680-64-96 19:07:00 Test Item Value Reference Range Interpretation Comments Hgb A1C (test code = Hgb A1C) 6.4 [facility] ECJRZ6022-05-73 19:07:00 Test Item Value Reference Range Interpretation Comments Glucose Lvl (test code = Glucose Lvl) 153 70-99 [facility]2021-12-29 19:07:00 Test Item Value Reference Range Interpretation Comments BUN (test code = BUN) 18 7-22 [facility]2021-12-29 19:07:00 Test Item Value Reference Range Interpretation Comments Creatinine Lvl (test code = Creatinine 1.44 0.50-1.40 Lvl) [facility]2021-12-29 19:07:00 Test Item Value Reference Range Interpretation Comments Sodium Lvl (test code = Sodium Lvl) 132 135-145 [facility]2021-12-29 19:07:00 Test Item Value Reference Range Interpretation Comments Potassium Lvl (test code = Potassium 4.8 3.5-5.1 Lvl) [facility] RFEVQ4850-73-71 19:07:00 Test Item Value Reference Range Interpretation Comments Chloride Lvl (test code = Chloride Lvl) 99 95-109 [facility]2021-12-29 19:07:00 Test Item Value Reference Range Interpretation Comments CO2 (test code = CO2) 27 24-32 [facility]2021-12-29 19:07:00 Test Item Value Reference Range Interpretation Comments Calcium Lvl (test code = Calcium Lvl) 9.7 8.5-10.5 [facility]2021-12-29 19:07:00 Test Item Value Reference Range Interpretation Comments AGAP (test code = AGAP) 10.8 10.0-20.0 [place] 185041-12-29 19:07:00 Test Item Value Reference Range Interpretation Comments eGFR (test code = eGFR) 52 [place] [address]-12-29 19:07:00 Test Item Value Reference Range Interpretation Comments Glucose Lvl (test code = Glucose Lvl) 153 70-99 [place] 185041-12-29 19:07:00 Test Item Value Reference Range Interpretation Comments BUN (test code = BUN) 18 7-22 [place] 185041-12-29 19:07:00 Test Item Value Reference Range Interpretation Comments Creatinine Lvl (test code = Creatinine 1.44 0.50-1.40 Lvl) [place] 185041-12-29 19:07:00 Test Item Value Reference Range Interpretation Comments Sodium Lvl (test code = Sodium Lvl) 132 135-145 [place] 185041-12-29 19:07:00 Test Item Value Reference Range Interpretation Comments Potassium Lvl (test code = Potassium 4.8 3.5-5.1 Lvl) [place] 185041-12-29 19:07:00 Test Item Value Reference Range Interpretation Comments Chloride Lvl (test code = Chloride Lvl) 99 95-109 [place] 185041-12-29 19:07:00 Test Item Value Reference Range Interpretation Comments CO2 (test code = CO2) 27 24-32 [place] 185041-12-29 19:07:00 Test Item Value Reference Range Interpretation Comments Calcium Lvl (test code = Calcium Lvl) 9.7 8.5-10.5 [place] 185041-12-29 19:07:00 Test Item Value Reference Range Interpretation Comments AGAP (test code = AGAP) 10.8 10.0-20.0 [place] 185041-12-29 19:07:00 Test Item Value Reference Range Interpretation Comments eGFR (test code = eGFR) 52 [place] 575531-12-29 19:07:00 Test Item Value Reference Range Interpretation Comments Segs (test code = Segs) 57.5 45.0-75.0 [place] 575531-12-29 19:07:00 Test Item Value Reference Range Interpretation Comments Lymphocytes (test code = Lymphocytes) 28.0 20.0-40.0 [facility] HospitalWiteooyNGOMMCPEOK4927-34-02 19:07:00 Test Item Value Reference Range Interpretation Comments Monocytes (test code = Monocytes) 9.6 2.0-12.0 [facility] HospitalKgmppwlLRMGDAXHWS9647-18-37 19:07:00 Test Item Value Reference Range Interpretation Comments Eosinophils (test code = 4.4 See_Comment [A utomated message] The Eosinophils) system which ge nerated this result tra nsmitted reference range : <=4.0. The reference r glenn was not used to int erpret this result as normal/abnormal . [facility] HospitalSmrpgqiWNBQBOCZFL1505-72-94 19:07:00 Test Item Value Reference Range Interpretation Comments Basophils (test code = 0.5 See_Comment [Aut omated message] The Basophils) system which ge nerated this result tra nsmitted reference range : <=1.0. The reference r glenn was not used to int erpret this result as normal/abnormal . [facility] HospitalZwwqawcXEBDDBPEZQ9044-06-13 19:07:00 Test Item Value Reference Range Interpretation Comments Neutrophils # (test code = Neutrophils 3.3 1.5-8.1 #) [facility] HospitalFpmkcngIKREWRPVLQ2594-51-24 19:07:00 Test Item Value Reference Range Interpretation Comments Lymphocytes # (test code = Lymphocytes 1.6 1.0-5.5 #) [facility] HospitalBgjvepqBZLVAFWJTN3464-67-66 19:07:00 Test Item Value Reference Range Interpretation Comments Monocytes # (test code 0.5 See_Comment [Aut omated message] The = Monocytes #) system which generated this result tra nsmitted reference range : <=0.8. The reference r glenn was not used to int erpret this result as normal/abnormal . [facility] HospitalNradassPNQPQSROIP6904-01-50 19:07:00 Test Item Value Reference Range Interpretation Comments Eosinophils # (test code 0.2 See_Comment [A utomated message] The = Eosinophils #) system whic h generated this result tra nsmitted reference range : <=0.5. The reference r glenn was not used to int erpret this result as normal/abnormal . [facility] HospitalBcxyxqeBPMSGRHRSP8377-46-75 19:07:00 Test Item Value Reference Range Interpretation Comments WBC (test code = WBC) 5.7 3.7-10.4 [facility] CenterHtyymbjULNLARCUST3046-72-67 19:07:00 Test Item Value Reference Range Interpretation Comments RBC (test code = RBC) 4.95 4.70-6.10 [facility] CenterFsbrfkuNNHOWNFYAF4455-75-52 19:07:00 Test Item Value Reference Range Interpretation Comments Hgb (test code = Hgb) 14.1 14.0-18.0 [facility] CenterWyyakecQLTCMXWCCX3170-81-15 19:07:00 Test Item Value Reference Range Interpretation Comments Hct (test code = Hct) 42.2 42.0-54.0 [facility] CenterJhveiwiRYSQXWWYRP8297-92-57 19:07:00 Test Item Value Reference Range Interpretation Comments MCV (test code = MCV) 85.3 80.0-94.0 [facility] CenterRcwupsrEYTNPLNUMT9192-36-89 19:07:00 Test Item Value Reference Range Interpretation Comments MCH (test code = MCH) 28.6 pg 27.0-31.0 [facility] CenterNqhroigJENBUIZWSO4749-33-12 19:07:00 Test Item Value Reference Range Interpretation Comments MCHC (test code = MCHC) 33.5 32.0-36.0 [facility] CenterMfdludhVFRTCAGQSZ6380-60-67 19:07:00 Test Item Value Reference Range Interpretation Comments RDW (test code = RDW) 14.7 11.5-14.5 [facility] CenterLjdhuypXSLZAVZXIU3331-65-24 19:07:00 Test Item Value Reference Range Interpretation Comments Platelet (test code = Platelet) 219 133-450 [facility] CenterVzsizfpKYVECIGZUI8542-98-37 19:07:00 Test Item Value Reference Range Interpretation Comments MPV (test code = MPV) 8.2 7.4-10.4 [facility] SJGILHIAN1739-41-76 19:07:00 Test Item Value Reference Range Interpretation Comments Hgb A1C (test code = Hgb A1C) 6.4 [facility] CenterannSARS-COV 2 AntigenSARS-COV 2 Antigen
[2023-02-01] MEDS ORDERED: NA CHLORIDE 0.9% 500 ML ONE (09:44)
[2023-02-01 09:59] LABS: Absolute Lymphocytes (CBC) 0.9 K/uL (0.7-4.9); Hematocrit 40.5 % (39.6-49.0); Lymphocytes % 8.5 % (15.3-44.8); MCV 85.1 fL (80-100); MPV 8.1 fL (7.6-11.3); Protime INR 1.05; RBC Red Blood Cell Count 4.77 M/uL (4.33-5.43)
[2023-02-01 10:19] LABS: Albumin 3.9 g/dL (3.4-5.0); Bilirubin Direct 0.1 mg/dL (0-0.2); Bilirubin Total 0.4 mg/dL (0.2-1.0); Protein, Total 8.1 g/dL (6.4-8.2); Troponin High Sensitivity 4.1 pg/mL (<58.9)
--- NOTE | 2023-02-01 10:20 | RAD REPORT ---
EXAM DESCRIPTION: RAD - Chest Single View - 02/01/2023 10:15 am CLINICAL HISTORY: COUGH Chest pain. COMPARISON: Chest Single View dated 11/30/2022; Chest Single View dated 11/25/2022; Chest Pa And Lat (2 Views) dated 06/15/2022; Chest Single View dated 06/02/2022 FINDINGS: Portable technique limits examination quality. The lungs are grossly clear. The heart is normal in size. No displaced fractures. IMPRESSION: No acute intrathoracic process suspected.
[2023-02-01 10:26] LABS: Magnesium 2.1 mg/dL (1.6-2.4); Potassium 4.3 mEq/L (3.5-5.1)
--- NOTE | 2023-02-01 10:26 | RAD REPORT ---
EXAM DESCRIPTION: US - CP - 02/01/2023 10:08 am CLINICAL HISTORY: DIZZINESS Headache, drowsiness, dizziness COMPARISON: C Spine Wo Con dated 12/18/2022 TECHNIQUE: Real-time sonographic evaluation of both carotid systems was performed. Doppler interroga tion was performed with waveform tracing bilaterally. FINDINGS: Normal high resistance waveforms are noted in both external carotid arteries. The common c arotid arteries and internal carotid arteries show normal low resistance waveforms. Mild soft plaque is seen in both proximal ICAs. Peak systolic and end diastolic velocity values and t he ICA/CCA ratios are in the non-hemodynamically significant range. Antegrade flow seen in both vertebral arteries. IMPRESSION: Mild soft plaquing is present in both internal carotid arteries. No evidence of a hemodynamically significant stenosis.
[2023-02-01] MEDS ORDERED: dexAMETHasone 10 MG/ML VIAL ONE (10:52)
[2023-02-01] MEDS ORDERED: ONDANSETRON 4 MG/2 ML VIAL ONE (10:53)
[2023-02-01] MEDS ORDERED: MECLIZINE HCL 12.5 MG TAB ONE (10:53)
[2023-02-01 11:59] LABS: White Blood Cell Scan OK (OK)
[2023-02-01 12:01] LABS: Blood Morphology Comment NOT SEEN (NOT SEEN); Platelet Estimate ADEQ
[2023-02-01 12:09] LABS: Urine Bacteria None Seen /HPF (<20); Urine Bilirubin NEGATIVE (Negative); Urine Blood Negative (Negative); Urine Clarity Clear (Clear); Urine Color Light-Yellow (Yellow); Urine Glucose 1+ (Negative); Urine Mucus Slight /HPF (None Seen); Urine Protein TRACE (Negative); Urine RBC <5 /HPF (None Seen); Urine Urobilinogen Normal (Normal); Urine pH 5.5 (5.0-7.0)
--- NOTE | 2023-02-01 13:05 | RAD REPORT ---
EXAM DESCRIPTION: MRI - Brain Wo Cont - 02/01/2023 12:54 pm CLINICAL HISTORY: DIZZINESS Headache, drowsiness COMPARISON: Brain Wo Cont dated 11/25/2022 TECHNIQUE: Multi-sequence, multiplanar MR imaging of the brain was performed without contrast. FINDINGS: No intracranial hemorrhage, hydrocephalus or extra-axial fluid collections.Mild periventri cular and deep white matter chronic microvascular ischemia. No edema or shift of midline structures. No findings to suspect brain mass. DWI is negative for acute CVA. Midline structures are normally formed. Mastoid air cells and paranasal sinuses are clear. IMPRESSION: Negative for acute CVA or other acute intracranial process.
--- NOTE | 2023-02-01 13:13 | EDPHYS ---
Physician Documentation [facility] Name: Moshe Ewing Age: 62 yrs Sex: Male : 1960 Arrival Date: 02/01/2023 Time: 09:31 Bed 19 Private MD: ED Physician Chris Plummer HPI: 02/01 10:35 This 62 yrs old Male presents to ER via EMS with complaints of Dizziness. lamont 10:35 The patient presents with dizziness. Onset: The symptoms/episode began/occurred just lamont prior to arrival. Context: occurred at home, occurred while the patient was sitting. Modifying factors: The symptoms are alleviated by closing eyes, the symptoms are aggravated by movement of head. Associated signs and symptoms: Pertinent positives: nausea. Severity of symptoms: At their worst the symptoms were mild in the emergency department the symptoms are unchanged. Patient's baseline: Neuro: alert and fully oriented. The patient has experienced similar episodes in the past, a few times. Historical: - Allergies: 09:34 amlodipine; kc6 09:34 lidocaine patch; kc6 - PMHx: 09:34 Diabetes - NIDDM; DVT; Hypercholesterolemia; Hypertension; Hypothyroidism; kc6 - PSHx: 09:34 back sx; cadriac stent; Cholecystectomy; foot/shoulder SX; L hand SX with plates kc6 placed; R BKA; stimulator R back for legs; - Immunization history:: Client reports having NOT received the Covid vaccine. Flu vaccine is not up to date. - Social history:: Smoking status: Patient denies any tobacco usage or history of. - Family history:: not pertinent. ROS: 10:35 Constitutional: Negative for fever, chills, and weight loss, Eyes: Negative for injury, lamont pain, redness, and discharge, ENT: Negative for injury, pain, and discharge, Neck: Negative for injury, pain, and swelling, Cardiovascular: Negative for chest pain, palpitations, and edema, Respiratory: Negative for shortness of breath, cough, wheezing, and pleuritic chest pain, Abdomen/GI: Negative for abdominal pain, nausea, vomiting, diarrhea, and constipation, Back: Negative for injury and pain, : Negative for injury, bleeding, discharge, and swelling, MS/Extremity: Negative for injury and deformity, Skin: Negative for injury, rash, and discoloration, Psych: Negative for depression, anxiety, suicide ideation, homicidal ideation, and hallucinations, Allergy/Immunology: Negative for hives, rash, and allergies, Endocrine: Negative for neck swelling, polydipsia, polyuria, polyphagia, and marked weight changes, Hematologic/Lymphatic: Negative for swollen nodes, abnormal bleeding, and unusual bruising. 10:35 Neuro: Positive for dizziness. Exam: 10:35 Constitutional: This is a well developed, well nourished patient who is awake, alert, lamont and in no acute distress. Head/Face: Normocephalic, atraumatic. ENT: Nares patent. No nasal discharge, no septal abnormalities noted. Tympanic membranes are normal and external auditory canals are clear. Oropharynx with no redness, swelling, or masses, exudates, or evidence of obstruction, uvula midline. Mucous membranes moist. Neck: Trachea midline, no thyromegaly or masses palpated, and no cervical lymphadenopathy. Supple, full range of motion without nuchal rigidity, or vertebral point tenderness. No Meningismus. Chest/axilla: Normal chest wall appearance and motion. Nontender with no deformity. No lesions are appreciated. Cardiovascular: Regular rate and rhythm with a normal S1 and S2. No gallops, murmurs, or rubs. Normal PMI, no JVD. No pulse deficits. Respiratory: Lungs have equal breath sounds bilaterally, clear to auscultation and percussion. No rales, rhonchi or wheezes noted. No increased work of breathing, no retractions or nasal flaring. Abdomen/GI: Soft, non-tender, with normal bowel sounds. No distension or tympany. No guarding or rebound. No evidence of tenderness throughout. Back: No spinal tenderness. No costovertebral tenderness. Full range of motion. Male : Normal genitalia with no discharge or lesions. Skin: Warm, dry with normal turgor. Normal color with no rashes, no lesions, and no evidence of cellulitis. MS/ Extremity: Pulses equal, no cyanosis. Neurovascular intact. Full, normal range of motion. Neuro: Awake and alert, GCS 15, oriented to person, place, time, and situation. Cranial nerves II-XII grossly intact. Motor strength 5/5 in all extremities. Sensory grossly intact. Cerebellar exam normal. Normal gait. Psych: Awake, alert, with orientation to person, place and time. Behavior, mood, and affect are within normal limits. 10:35 ECG was reviewed by the Attending Physician. 10:40 Eyes: Pupils: no acute changes, equal, round, and reactive to light and accomodation, lamont Extraocular movements: Conjunctiva: normal, Corneas: are normal, Sclera: no appreciated abnormality, no acute changes, Nystagmus: nystagmus with fast component noted, in the left eye. 10:40 Musculoskeletal/extremity: DVT Exam: No signs of deep vein thrombosis. no pain, no swelling, no tenderness, negative Homans' sign noted on exam, no appreciated bluish discoloration, no erythema, no increased warmth. Vital Signs: 09:33 BP 164 / 89; Pulse 52; Resp 12 S; Pulse Ox 99% on R/A; Weight 90.26 kg (R); Height 5 kc6 ft. 9 in. (R); Pain 0/10; 10:34 BP 156 / 87; Pulse 49; Resp 15 S; Pulse Ox 100% on R/A; kc6 10:58 BP 160 / 80 LA Supine (auto/lg); Pulse 56; kc6 10:58 BP 154 / 90 LA Sitting (auto/lg); Pulse 64; kc6 10:58 BP 148 / 81 Standing; Pulse 60; kc6 11:50 BP 142 / 80; Pulse 56; Resp 22 S; Pulse Ox 95% on R/A; kc6 09:33 Body Mass Index 29.39 (90.26 kg, 175.26 cm) [facility] 09:33 Pain Scale: Adult kc6 MDM: 09:33 Patient medically screened. lamont 10:41 Differential diagnosis: cardiac arrhythmia, CVA, generalized weakness, hypovolemia, lamont idiopathic dizziness, near-syncope, TIA, vertigo. Data reviewed: vital signs, nurses notes, EMS record, lab test result(s), EKG, radiologic studies, doppler, MRI, plain films. Consideration of Admission/Observation Escalation of care including admission/observation considered. I considered the following discharge prescriptions or medication management in the emergency department Medications were administered in the Emergency Department. See MAR. Test considered but Not performed: CT: no cta head and neck. Care significantly affected by the following chronic conditions: Diabetes, Hypertension, dvt, high chloesterol. Counseling: I had a detailed discussion with the patient and/or guardian regarding: the historical points, exam findings, and any diagnostic results supporting the discharge/admit diagnosis, lab results, radiology results, the need for outpatient follow up, for definitive care, a family practitioner, a neurologist. 02/01 09:34 Order name: Basic Metabolic Panel; Complete Time: 10:33 [facility] 02/01 09:34 Order name: CBC with Diff; Complete Time: 12:36 [facility] 02/01 09:34 Order name: LFT's; Complete Time: 10:33 [facility] 02/01 09:34 Order name: Magnesium; Complete Time: 10:33 [facility] 02/01 09:34 Order name: NT PRO-BNP; Complete Time: 10:33 [facility] 02/01 09:34 Order name: PT-INR; Complete Time: 10:33 [facility] 02/01 09:34 Order name: Troponin HS; Complete Time: 10:33 [facility] 02/01 09:34 Order name: Urinalysis w/ reflexes; Complete Time: 12:36 [facility] 02/01 09:34 Order name: Lipase; Complete Time: 10:33 [facility] 02/01 10:03 Order name: CBC Smear Scan; Complete Time: 12:36 [facility] 02/01 09:34 Order name: XRAY Chest (1 view); Complete Time: 10:33 [facility] 02/01 09:35 Order name: US Carotid Artery Bilateral; Complete Time: 10:33 [facility] 02/01 10:50 Order name: Brain Wo Cont; Complete Time: 13:08 [facility] 02/01 09:34 Order name: EKG; Complete Time: 09:35 [facility] 02/01 09:34 Order name: Cardiac monitoring; Complete Time: 09:47 [facility] 02/01 09:34 Order name: EKG - Nurse/Tech; Complete Time: 09:47 [facility] 02/01 09:34 Order name: IV Saline Lock; Complete Time: 09:47 [facility] 02/01 09:34 Order name: Labs collected and sent; Complete Time: 09:47 [facility] 02/01 09:34 Order name: O2 Per Protocol; Complete Time: 09:44 [facility] 02/01 09:34 Order name: O2 Sat Monitoring; Complete Time: 09:44 [facility] 02/01 10:43 Order name: Orthostatics; Complete Time: 10:58 [facility] EC:35 Rate is 58 beats/min. Rhythm is regular. QRS [place] is Normal. CO interval is normal. QRS lamont interval is normal. QT interval is normal. No Q waves. T waves are Normal. No ST changes noted. Clinical impression: Abnormal EKG without significant change, Sinus bradycardia, and No evidence of ischemia. Interpreted by me. Reviewed by me. Administered Medications: 10:16 Drug: NS 0.9% IV 500 ml Route: IV; Rate: bolus; Site: left antecubital; kc6 11:02 Follow up: Response: No adverse reaction; IV Status: Completed infusion; IV Intake: kc6 500ml 10:58 Drug: Ondansetron IVP 4 mg Route: IVP; Site: left antecubital; kc6 11:00 Follow up: Response: No adverse reaction; Nausea is decreased kc6 10:58 Drug: Meclizine PO 50 mg Route: PO; kc6 11:00 Follow up: Response: No adverse reaction 6 10:58 Drug: Decadron - Dexamethasone IVP 8 mg Route: IVP; Site: left antecubital; kc6 11:00 Follow up: Response: No adverse reaction [facility] 13:30 Drug: Aspirin PO Chewable Tablet 81 mg Route: PO; kc6 Disposition Summary: 02/01/23 13:13 Discharge Ordered Location: Home lamont Problem: new lamont Symptoms: have improved lamont Condition: Fair lamont Diagnosis - Benign paroxysmal vertigo lamont - Dizziness and giddiness lamont - Bradycardia, unspecified lamont Followup: lamont - With: Private Physician - When: 2 - 3 days - Reason: Recheck today's complaints, Continuance of care, Re-evaluation by your physician Followup: lamont - With: - When: 2 - 3 days - Reason: Recheck today's complaints, Re-evaluation by your physician Followup: lamont - With: - When: 2 - 3 days - Reason: Recheck today's complaints, Re-evaluation by your physician Discharge Instructions: - Discharge Summary Sheet lamont - Benign Positional Vertigo lamont - Dizziness lamont - Motion Sickness lamont - Vertigo lamont - Vertigo, [id number] lamont - Aspirin and Your Heart lamont - Dizziness, [id number]-[id number] lamont Forms: - Medication Reconciliation Form lamont - Thank You Letter lamont - Antibiotic Education lamont - Prescription Opioid Use lamont Prescriptions: - Meclizine 25 mg Oral Tablet - take 1 tablet by ORAL route every 8 hours As needed; 30 tablet; Refills: 0, lamont Product Selection Permitted - Zofran 4 mg Oral Tablet - take 1 tablet by ORAL route every 12 hours As needed; 20 tablet; Refills: 0, lamont Product Selection Permitted - Medrol (Daniel) 4 mg Oral Tablets, Dose Pack - take 1 tablet by ORAL route as directed - follow package instructions; 1 lamont packet; Refills: 0, Product Selection Permitted Signatures: Dispatcher [employer] Chris Zepeda MD MD cha Campbell, Kaitlyn RN RN kc6 Corrections: (The following items were deleted from the chart) 10:50 09:36 MR STROKE PROTOCOL+MRI.RAD.BRZ ordered. ESTEBANWV MICHOACANO
--- NOTE | 2023-02-01 13:13 | ER ---
Nurse's Notes [facility] Name: Moshe Ewing Age: 62 yrs Sex: Male : 1960 Arrival Date: 02/01/2023 Time: 09:31 Bed 19 Private MD: Diagnosis: Benign paroxysmal vertigo;Dizziness and giddiness;Bradycardia, unspecified Presentation: 02/01 09:33 Chief complaint: EMS states: dizziness that began this morning at approximately 7am. kc6 BGL en route 140. Coronavirus screen: Vaccine status: Patient reports being unvaccinated. At this time, the client does not indicate any symptoms associated with coronavirus-19. Ebola Screen: No symptoms or risks identified at this time. Initial Sepsis Screen: Does the patient meet any 2 criteria? No. Patient's initial sepsis screen is negative. Does the patient have a suspected source of infection? No. Patient's initial sepsis screen is negative. Risk Assessment: Do you want to hurt yourself or someone else? Patient reports no desire to harm self or others. Onset of symptoms was February 01, 2023. 09:33 Method Of Arrival: EMS: [facility] kc6 09:33 Acuity: MYRIAM 3 kc6 Triage Assessment: 09:34 General: Appears in no apparent distress. comfortable, Behavior is calm, cooperative, kc6 appropriate for age. Pain: Denies pain. EENT: No signs and/or symptoms were reported regarding the EENT system. Neuro: [place] Agitation-Sedation Scale (RASS): 0 - Alert and Calm Level of Consciousness is awake, alert, obeys commands, Oriented to person, place, time, situation, Appropriate for age Reports dizziness. Cardiovascular: Heart tones S1 S2 present Capillary refill < 3 seconds Rhythm is sinus bradycardia. Respiratory: Airway is patent Trachea midline Respiratory effort is even, unlabored, Respiratory pattern is regular, symmetrical. GI: No signs and/or symptoms were reported involving the gastrointestinal system. : No signs and/or symptoms were reported regarding the genitourinary system. Derm: No signs and/or symptoms reported regarding the dermatologic system. Skin is intact, Skin is pink, warm \T\ dry. Musculoskeletal: No signs and/or symptoms reported regarding the musculoskeletal system. Amputation of right leg. Circulation, motion, and sensation intact. Capillary refill < 3 seconds. Historical: - Allergies: 09:34 amlodipine; kc6 09:34 lidocaine patch; kc6 - PMHx: 09:34 Diabetes - NIDDM; DVT; Hypercholesterolemia; Hypertension; Hypothyroidism; kc6 - PSHx: 09:34 back sx; cadriac stent; Cholecystectomy; foot/shoulder SX; L hand SX with plates kc6 placed; R BKA; stimulator R back for legs; - Immunization history:: Client reports having NOT received the Covid vaccine. Flu vaccine is not up to date. - Social history:: Smoking status: Patient denies any tobacco usage or history of. - Family history:: not pertinent. Screenin:35 [facility] ED Fall Risk Assessment (Adult) History of falling in the last 3 months, kc6 including since admission No falls in past 3 months (0 pts) Confusion or Disorientation No (0 pts) Intoxicated or Sedated No (0 pts) Impaired Gait No (0 pts) Mobility Assist Device Used No (0 pt) Altered Elimination No (0 pt) Score/Fall Risk Level 0 - 2 = Low Risk Oriented to surroundings, Maintained a safe environment, Educated pt \T\ family on fall prevention, incl call for assistance when getting out of bed, Assessed \T\ reinforced patient's understanding of fall precautions, Hourly rounding (assess needs \T\ fall precautionary measures) done. Abuse screen: Denies threats or abuse. Denies injuries from another. Nutritional screening: No deficits noted. Tuberculosis screening: No symptoms or risk factors identified. Assessment: 09:36 Reassessment: please see triage assessment. kc6 10:34 Reassessment: Patient appears in no apparent distress at this time. No changes from kc6 previously documented assessment. Patient and/or family updated on plan of care and expected duration. Pain level reassessed. Patient is alert, oriented x 3, equal unlabored respirations, skin warm/dry/pink. 11:25 Reassessment: per MRI, pt is unable to have scan done at this time until spinal cord kc6 nerve stimulator is turned off. pt and MD notified. pts is bringing appropriate equipment. 11:34 Reassessment: Patient appears in no apparent distress at this time. No changes from kc6 previously documented assessment. Patient and/or family updated on plan of care and expected duration. Pain level reassessed. Patient is alert, oriented x 3, equal unlabored respirations, skin warm/dry/pink. Patient states feeling better. Patient states symptoms have improved. 11:54 Reassessment: pts here with necessary equipment to turn off spinal cord nerve kc6 stimulator. MRI/CT notified. 12:18 Reassessment: pt to MRI via wheelchair. kc6 12:50 Reassessment: pt returned from MRI via wheelchair. kc6 Vital Signs: 09:33 BP 164 / 89; Pulse 52; Resp 12 S; Pulse Ox 99% on R/A; Weight 90.26 kg (R); Height 5 kc6 ft. 9 in. (R); Pain 0/10; 10:34 BP 156 / 87; Pulse 49; Resp 15 S; Pulse Ox 100% on R/A; kc6 10:58 BP 160 / 80 LA Supine (auto/lg); Pulse 56; kc6 10:58 BP 154 / 90 LA Sitting (auto/lg); Pulse 64; kc6 10:58 BP 148 / 81 Standing; Pulse 60; kc6 11:50 BP 142 / 80; Pulse 56; Resp 22 S; Pulse Ox 95% on R/A; kc6 09:33 Body Mass Index 29.39 (90.26 kg, 175.26 cm) kc6 09:33 Pain Scale: Adult kc6 ED Course: 09:33 Patient arrived in ED. kc6 09:33 Chris Plummer MD is Attending Physician. lamont 09:34 Triage completed. kc6 09:34 Arm band placed on. kc6 09:35 Patient has correct armband on for positive identification. Bed in low position. Call 6 light in reach. Side rails up X2. 09:36 Lindsey Mccoy RN is Primary Nurse. kc6 09:36 Maintain EMS IV. Dressing intact. Good blood return noted. Site clean \T\ dry. Gauge \T\ lilia 6 site: 20G LAC. 10:10 US Carotid Artery Bilateral In Process Unspecified. EDMS 10:17 XRAY Chest (1 view) In Process Unspecified. EDMS 12:54 Brain Wo Cont In Process Unspecified. EDMS 13:13 Jae Owens MD is Referral Physician. lamont 13:13 Cecilio Santoro MD is Referral Physician. lamont 13:33 No provider procedures requiring assistance completed. IV discontinued, intact, kc6 bleeding controlled, No redness/swelling at site. Pressure dressing applied. Administered Medications: 10:16 Drug: NS 0.9% IV 500 ml Route: IV; Rate: bolus; Site: left antecubital; kc6 11:02 Follow up: Response: No adverse reaction; IV Status: Completed infusion; IV Intake: kc6 500ml 10:58 Drug: Ondansetron IVP 4 mg Route: IVP; Site: left antecubital; kc6 11:00 Follow up: Response: No adverse reaction; Nausea is decreased kc6 10:58 Drug: Meclizine PO 50 mg Route: PO; kc6 11:00 Follow up: Response: No adverse reaction kc6 10:58 Drug: Decadron - Dexamethasone IVP 8 mg Route: IVP; Site: left antecubital; kc6 11:00 Follow up: Response: No adverse reaction kc6 13:30 Drug: Aspirin PO Chewable Tablet 81 mg Route: PO; kc6 Medication: 13:36 VIS not applicable for this client. kc6 Intake: 11:02 IV: 500ml; Total: 500ml. kc6 Outcome: 13:13 Discharge ordered by MD. miguel 13:33 Discharged to home via wheelchair, with significant other. kc6 13:33 Condition: improved 13:33 Discharge instructions given to patient, Instructed on discharge instructions, follow up and referral plans. medication usage, Demonstrated understanding of instructions, follow-up care, medications, Prescriptions given X 3. 13:36 Patient left the ED. kc6 Signatures: Dispatcher [employer] Chris Zepeda MD MD cha Campbell, Kaitlyn, RN RN kc6
[2023-02-01] MEDS ORDERED: ASPIRIN 81 MG CHEWABLE TABLET ONE (13:27)
[2023-02-01 13:44] VITALS: BP 142/80; O2SAT 95
--- NOTE | 2023-02-03 16:03 | EKG ---
Test Date: 2023-02-01 Test Time: 09:41:12 Thermostat Repairer: JASPER MEASUREMENT RESULTS: Intervals: Rate: 48 [place]: 162 QRSD: 162 QT: 492 QTc: 439 [place]: P: 57 [place]: 162 QRS: 86 T: 60 INTERPRETIVE STATEMENTS: Sinus bradycardia Right bundle branch block Abnormal ECG Compared to ECG 11/30/2022 13:05:38 Sinus rhythm no longer present Electronically Signed On 02-03-23 15:58:02 CDT by Vinny Magallanes
== END 2023-02-01 13:36 | disposition home or self-care (01) ==
LOC: ER 09:31
DX: H81.10 Benign paroxysmal vertigo, unspecified ear (principal); R00.1 Bradycardia, unspecified; I10 Essential (primary) hypertension; E11.9 Type 2 diabetes mellitus without complications; Z88.5 Allergy status to narcotic agent; Z88.8 Allergy status to other drugs, medicaments and biological substances
CPT/HCPCS: 96361; 85025; 81001; 80048; 36415; 83735; 85610; 80076; 84484; 83690; 83880; 71045; 93880; 70551; 96375; 96374; 99284; J8597; J1100; J2405; J7040; 93005

== ENCOUNTER 2023-02-07 18:57 | Emergency (ER) | payer OTHER ==
--- OUTSIDE RECORDS SUMMARY | 2023-02-07 19:06 | XMS REPORT | Continuity of Care Document ---
:1960 Author Organization [facility] t Address [address] [facility] [address] [place] [address] Care Team Providers Name Role Phone Regina Hodges Primary Care Physician Maira Oliveira Attending Clinician Unavailable Regina Hodges Attending Clinician Unavailable Jeison Hays Attending Clinician Radiology Attending Clinician Unavailable RADIOLOGY Attending Clinician Unavailable Carolina Rice RN Attending Clinician Unavailable EARL GODDARD Attending Clinician Unavailable Leonora Guzman Attending Clinician Alexandre Montemayor MD Attending Clinician Earl Goddard MD Attending Clinician Doctor Unassigned, [place] Attending Clinician Unavailable Wallace Dotson MD Attending [...] Number Effective Date Expiration Date Janell freitas [facility] [id number] 2020 COMP HMO D SNP 00:00:00 MEDICAID [place] [id number] 2020 [place] 00:[place]:00 [facility] 53 [id number] 2020 Common ADVANTAGE 00:00:00 Spirit - [facility] [id number] [facility] MEDICARE [id number] 2020 COMPLETE CHOICE 00:00:00 [employer] GOLD PLS [id number] 2019 HMO 00:00:00 MEDICARE PART A [id number] 2004 2019 \T\ B 00:00:00 00:00:00 Problems Condition Condition Condition Status Onset Resolution Last Treating Co mments Source Name Details Category Date Date Treatment Clinician Date Coronary Coronary Disease Active 2021-09 Unive rs artery artery 1-17 ity of disease disease 00:00: [place] involving involving 00 Medi balbina ione ione Branch coronary coronary artery of artery of ione ione heart heart without without angina angina pectoris pectoris Generalize Generalize Disease Active 2021-09 U nivers d d 1-17 [place]y of abdominal abdominal [place] pain pain 00 [place] Coronary Coronary Disease Active 2021-09 Unive rs artery artery 1-17 ity of disease disease 00:00: [place] involving involving 00 Medi balbina ione ione Branch coronary coronary artery of artery of ione ione heart heart without without angina angina pectoris pectoris Chest pain Chest pain Disease Active 2021-09 U evin 1-16 ity of 00:00: [place] 00 Medical Branch SPINAL SPINAL Diagnosis Active 2020-092021-09-26 Me moria CORD CORD 11-24 08:25:00 l STIMULATOR STIMULATOR 00:00: He rmann INSERTION INSERTION 00 Active 09/23/2021 [facility] UNK UNK Diagnosis Active 2020-092021-09-24 Mem oria Active 11-24 12:49:00 l 09/23/2021 00:00: T[place] leon [address] Other Other Disease Active 2020-09 Univers age-relate age-relate 11-03 it y of d cataract d cataract [place] of left of left 00 Medical eye eye Branch RADICULOPA RADICULOP Diagnosis Active 2020-10-15 Alex THY, ATHY, 10-04 07:21:00 l LUMBAR LUMBAR 00:00: [place] [facility]ION 00 Active 10/04/2020 [facility] Obesity Obesity Disease Active Univers (BMI (BMI 3-06 ity of 30-39.9) 30-39.9) 00:00: [place] 00 Medical Branch Left knee Left knee Disease Active Uni vers pain pain 1-10 ity of 00:00: [place] 00 Medical Branch Left knee Left knee Disease Active Uni vers pain pain 1-10 ity of 00:00: [place] Medical [facility] Shoulder Shoulder Disease Active Unive rs pain, pain, 5-10 ity of bilateral bilateral [place] Foot pain, Foot pain, Disease Active U nivers left left 3-09 ity of 00:00: [place] Medical Branch Impaired Impaired Problem Active 2023-01-15 Memoria mobility mobility 04-28 14:17:10 l (finding) (finding) 00:00: Herm adam Active 00 04/28/2011 Problem 01/15/2023 Manuel Adams [facility] [id number] Essential Problem Comm on hypertensi Spirit on - [facility] [id number] [place] n [id number] prostatic Spirit hyperplasi - CHI a with [facility] urinary Medical tract Center symptoms [id number] Other Problem Common secondary Spirit acute gout - CHI of left [facility] [id number] Type 2 Problem Common diabetes Spirit mellitus - [facility] unspecifie Center d whether fdc insulin use [id number] Acquired Problem Comm on hypothyroi Spirit dism - [facility] [id number] Frequency Problem Com mon of Spirit micturitio - CHI n [facility] [id number] Mass in Problem Commo n neck [facility] [id number] History of Problem C ommon right Spirit below knee - CHI amputation [facility] [id number] Cervical Problem Com mon osteophyte [facility] [id number] [place] n [id number] exam 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 [id number] Mixed Problem Common hyperlipid Spirit emia - [facility] Polyneurop Polyneurop Problem C ommon athy athy Spirit - [facility] Angina Angina Problem Active 2023-01-15 Brodie douglas (disorder) (disorder) 14:17:10 l Active Michael Problem 01/15/2023 [facility] Diabetes Diabetes Problem Active 2023-01-15 Memoria mellitus mellitus 14:17:10 l (disorder) (disorder) He rmann Active Problem 01/15/2023 [facility] Hyperlipid Hyperlipi Problem Active 2023-01-15 Memoria emia demia 14:17:10 l (disorder) (disorder) He rmann Active [facility] Cervical Cervical Problem Active 2023-01-15 Memoria radiculopa radiculopa 14:17:10 l thy thy [place] (disorder) (disorder) Active Problem 01/15/2023 [facility] 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 14:17:10 l s s Michael (disorder) (disorder) Active Problem 01/15/2023 [facility] Submandibu Submandib Problem Active 2023-01-15 Memoria lar ular 14:17:10 l lymphadeno lymphadeno He rmann ryne ryne (disorder) (disorder) Active Problem 01/15/2023 [facility] Hypertensi Hypertens Problem Active 2023-01-15 Memoria ve phi 14:17:10 l disorder, disorder, Herm adam systemic systemic arterial arterial (disorder) (disorder) Active Problem 01/15/2023 [facility] Pain Pain Problem Active 2023-01-15 Memor ia (finding) (finding) 14:17:10 l Active Michael Problem 01/15/2023 [facility] Hypothyroi Hypothyro Problem Resolve 2021-09-28 Memoria dism idism d 22:42:20 l (disorder) (disorder) He rmann Resolved Problem 09/28/2021 [facility] Raised Raised Problem Active [place] prostate [...] Memori a Medicati Medicati l on on [place] Allergie Allergie s s NO KNOWN Drug Active Univers ALLERGIE Class ity of S [facility] amlodipi amlodipi Active CP, SOB, Comm on ne ne Nausea Spirit - [facility] Social History Social Habit Start Date Stop Date Quantity Comments Source Sex Assigned At Common Sp josee - [facility] History of Common Spirit - Tobacco Use [facility] History [facility] Food 2022-08-14 2022-08-14 1 Univers ity of Worry 00:00:00 00:00:00 [place] [facility] [place] History SDOH Food 2022-08-14 2022-08-14 1 Univers ity of Scarcity 00:00:00 00:00:00 [facility] History [facility] 2022-08-14 2022-08-14 2 University o f Transport Med 00:00:00 00:00:00 [place] Medic al Branch History [facility] 2022-08-14 2022-08-14 2 University o f Transport Non-Med 00:00:00 00:00:00 [facility] edical [place] Alcohol intake 2022-08-13 2022-08-13 0 /d University of 00:00:00 00:00:00 [facility] Exposure to 2022-08-02 2022-08-12 Not sure University SARS-CoV-2 00:00:00 10:42:00 [facility] (event) [place] Tobacco use and 2022-05-19 2022-05-19 Smokeless tobacco Un iversity of exposure 00:00:00 00:00:00 non-user [facility] Social History 2021-09-24 2021[facility]09[facility] 15:29:23 Smoking Status Start Date Stop Date Source Tobacco smoking status [facility] Medications Ordered Filled Start Stop Current Ordering Indication Dosage Frequency Signature Comments Components Source Medication Medication Date Date Medication? Clinician (SIG) Name Name Vitamin D3 Yes 50 Memoria 2000 intl 4-18 microgram l units oral 20:16: = 1 tab, Her crews tablet 00 PO, Daily, 0 Refill(s) Vitamin D3 Yes 50 Memoria 2000 intl 4-18 microgram l units oral 20:16: = 1 tab, Her crews tablet 00 PO, Daily, 0 Refill(s) atorvastati 2021-09 Yes 20mg 20 mg, Univ ers n (LIPITOR) 1-18 Oral, QHS, it y of tablet 20 03:00: [place] 00 on [facility] 08/13/22 Branch at 2100, Until Discontinu ed sulfur 2021-09- No [id number] 5mL 5 mL, Unive rs hexafluorid -17 08-13 Intravenou i ty of e microsphr 20:30: 20:30 s, ONCE, 1 [place] (LUMASON) 00 :00 dose, On Medica l injection 5 Maegan Branch mL 08/13/22 at 1430, Routine
count team member approving Restricted medication : MANDY VAUGHN clopidogreL 2021-09 Yes 75mg Take 75 mg Univers (PLAVIX) 75 -17 by mouth ity of mg tablet 16:36: in the [place] [address] morning. Medical Branch Levothyroxi 2021-09 Yes Take by Uni vers ne 75 mcg -17 mouth. ity of capsule 16:36: [place] [facility] finasteride 2021-09 Yes 5mg Take 5 mg U nivers 5 mg tablet 17 by mouth ity of 16:36: in the [place] [address] morning. Medical Branch losartan 2021-09 Yes 100mg Take 100 Univ ers 100 mg 1-17 mg by ity of tablet 16:36: mouth in [place] 03 the Medical morning. Branch metFORMIN 2021-09 Yes 500mg Take 500 Uni vers 500 mg 1-17 mg by ity of tablet 16:36: mouth in [place] [address] the Medical morning Branch and 500 mg in the evening. Take with meals. lovastatin 2021-09 Yes 20mg Take 20 mg U nivers 20 mg -17 by mouth ity of tablet 16:36: at [place] [address] bedtime. Medical Branch tamsulosin 2021-09 Yes Take by Univ ers (FLOMAX) -17 mouth ity of 0.4 mg 24 16:36: daily. [place] hr capsule Medical Branch ergocalcife 2021-09 Yes 2000U Take 2,000 Univers rol, 1-17 Units by ity of vitamin D2, 16:36: [place] (VITAMIN D Medical ORAL) Branch aspirin 81 2021-09 Yes 81mg Take 81 mg U nivers mg chewable -17 by mouth ity of tablet 16:36: in the [place] [address] morning. Medical Branch clopidogreL 2021-09 Yes 75mg Take 75 mg Univers (PLAVIX) 75 -17 by mouth ity of mg tablet 16:36: in the [place] [address] morning. Medical Branch Levothyroxi 2021-09 Yes Take by Uni vers ne 75 mcg 1-17 mouth. ity of capsule 16:36: [place] Medical [facility] finasteride 2021-09 Yes 5mg Take 5 mg U nivers 5 mg tablet 1-17 by mouth ity of 16:36: in the [place] morning. Medical Branch losartan 2021-09 Yes 100mg Take 100 Univ ers 100 mg 1-17 mg by ity of tablet 16:36: mouth in [place] [address] the Medical morning. Branch metFORMIN 2021-09 Yes 500mg Take 500 Uni vers 500 mg 1-17 mg by ity of tablet 16:36: mouth in [place] the Medical morning Branch and 500 mg in the evening. Take with meals. lovastatin 2021-09 Yes 20mg Take 20 mg U nivers 20 mg 1-17 by mouth ity of tablet 16:36: at [place] [address] bedtime. Medical Branch tamsulosin 2021-09 Yes Take by Univ ers (FLOMAX) 1-17 mouth ity of 0.4 mg 24 16:36: daily. [facility] Medical Branch ergocalcife 2021-09 Yes 2000U Take 2,000 Univers rol, 1-17 Units by ity of vitamin D2, 16:36: mouth. [place] (VITAMIN D Medical ORAL) Branch aspirin 81 2021-09 Yes 81mg Take 81 mg U nivers mg chewable 1-17 by mouth ity of tablet 16:36: in the [place] morning. Medical Branch clopidogreL 2021-09 Yes 75mg Take 75 mg Univers (PLAVIX) 75 1-17 by mouth ity of mg tablet 16:36: in the [place] morning. Medical Branch Levothyroxi 2021-09 Yes Take by Uni vers ne 75 mcg 1-17 mouth. ity of capsule 16:36: [place] Medical Branch finasteride 2021-09 Yes 5mg Take 5 mg U nivers 5 mg tablet 1-17 by mouth ity of 16:36: in the [place] [address] morning. Medical Branch losartan 2021-09 Yes 100mg Take 100 Univ ers 100 mg 1-17 mg by ity of tablet 16:36: mouth in [place] [address] the Medical morning. Branch metFORMIN 2021-09 Yes 500mg Take 500 Uni vers 500 mg 1-17 mg by ity of tablet 16:36: mouth in [place] [address] the Medical morning Branch and 500 mg in the evening. Take with meals. lovastatin 2021-09 Yes 20mg Take 20 mg U nivers 20 mg 1-17 by mouth ity of tablet 16:36: at [place] 03 bedtime. Medical Branch tamsulosin 2021-09 Yes Take by Univ ers (FLOMAX) -17 mouth ity of 0.4 mg 24 16:36: daily. [place] hr capsule Medical Branch ergocalcife 2021-09 Yes 2000U Take 2,000 Univers rol, 1-17 Units by ity of vitamin D2, 16:36: [place]. [place] (VITAMIN D Medical ORAL) Branch aspirin 81 2021-09 Yes 81mg Take 81 mg U nivers mg chewable 17 by mouth ity of tablet 16:36: in the [place] 03 morning. Medical Branch polyethylen 2021-09 Yes 17g 17 g, Unive rs e glycol 17 Oral, ity of 3350 powder 15:00: DAILY, [place] 17 g 00 First dose Medical on [facility] 08/13/22 at 0900, Until Discontinu ed, Routine tamsulosin 2021-09 Yes .4mg 0.4 mg, Univ ers (FLOMAX) 10-13 Oral, ity of capsule 0.4 15:00: DAILY, [place] mg 00 First dose Medical on [facility] 08/13/22 at 0900, Until Discontinu ed, Routine losartan 2021-09 Yes 100mg 100 mg, Unive rs (COZAAR) 10-13 Oral, ity of tablet 100 15:00: DAILY, [place] mg 00 First dose Medical on [facility] 08/13/22 at 0900, Until Discontinu ed, Routine finasteride 2021-09 Yes 5mg 5 mg, Unive rs (PROSCAR) 10-13 Oral, ity of tablet 5 mg 15:00: [place]ILY, [place] 00 First dose Medical on [facility] 08/13/22 at 0900, Until Discontinu ed, Routine clopidogreL 2021-09 Yes 75mg 75 mg, Univ ers (PLAVIX) 75 17 Oral, ity of mg tablet 15:00: DAILY, [place] 75 mg 00 First dose Medical on [facility] 08/13/22 at 0900, Until Discontinu ed, Routine aspirin 2021-09 Yes 81mg 81 mg, Univers chewable 10-13 Oral, ity of tablet 81 15:00: DAILY, [place] mg 00 First dose Medical on Maegan [...] 00 First dose Medical (HumaLOG) + on [facility] 08/13/22 Testing at 0800, Until Discontinu ed, Routine levothyroxi 2021-09 Yes 75ug 75 mcg, Uni vers ne 10-13 Oral, ity of (SYNTHROID) 12:00: QAM-0600, [place] tablet 75 00 First dose Medi balbina mcg on [facility] 08/13/22 at 0600, Until Discontinu ed dextrose 2021-09 Yes 250mL 250 mL, IV Un jovi 10% (D10W) 10-13 Infusion, ity of bolus 06:39: PRN - SEE [place] infusion 28 INSTRUCTIO Medic al 250 mL [...] 2021-09 Yes 1mg 1 mg, Univers (GLUCAGEN 17 Intramuscu ity of DIAGNOSTIC 06:39: lar, PRN, [place] KIT) 25 Starting Medical injection 1 on [place] Branch mg 08/13/22 at 0039, Until Discontinu ed, VAUGHN, Blood Glucose < or = 70 mg/dL and patient is unable to swallow or has mental changes. morpHINE (2 2021-09 No 2mg 2 mg, Slow Univers mg/mL) [...] 650 59 Starting Medic al mg on Wed Branch 08/12/22 at 1859, Until Discontinu ed, Routine, Pain (scale 1-3) iopamidol 2021-09- No [id number] 100mL 100 mL, Univers (ISOVUE 10-12 Intravenou ity o f 370-500 mL) 19:45: 19:33 s, ONCE, 1 [place] injection 00 :00 dose, On Medica l 100 mL [facility] 08/12/22 at 1345, Routine hydralAZINE 2021-09- No 10mg 10 mg, Uni vers (APRESOLINE 10-12 Slow IV ity of ) injection 19:45: 18:58 [place], [place] 10 mg 00 :00 ONCE, 1 Medical dose, On Branch [facility] 08/12/22 at 1345, STAT LORazepam 2021-09- No 1mg 1 mg, Slow U nivers (ATIVAN) 10-12 IV Push, ity of injection 1 19:15: 19:11 ONCE, 1 [place] mg 00 :00 dose, On [facility] Branch 08/12/22 at 1315, STAT morpHINE (4 2021-09- No 4mg 4 mg, Slow Univers mg/mL) 10-12 IV Push, ity of injection 4 19:00: 18:55 ONCE, 1 [place] mg 00 :00 dose, On [facility] Branch 08/12/22 at 1300, STAT nitroglycer 2021-09- No [...] [place] mg 00 :00 dose, On [facility] Branch 08/12/22 at 1115, STAT Lidocaine & [...] (Patch) 00 :00 (Patch) meloxicam 2021-2021- No [id number] 15mg Take 1 Univers 15 mg 05-19 [id number] tablet by ity of tablet 00:00: 04:59 mouth in [place] 00 :00 [facility] for 30 days. meloxicam 2021-2021- No [id number] 15mg Take 1 Univers 15 mg 806-19 [id number] tablet by ity of tablet 00:00: 04:59 mouth in [place] 00 :00 [facility] for 30 days. meloxicam 2021-2021- No [id number] 15mg Take 1 Univers 15 mg 806-19 [id number] tablet by ity of tablet 00:00: 04:59 mouth in [place] 00 :00 [facility] for 30 days. methylPREDN Yes [id number] 84mg Take 21 Univers ISolone 5-23 9103 tablets by ity of (MEDROL, 00:00: mouth [place] MICHELE,) 4 mg 00 SEE-INSTRU Med ical tablets CTIONS. Branch follow package directions methylPREDN 2021-0 Yes [id number] 84mg Take 21 Univers ISolone 5-23 9103 tablets by ity of (MEDROL, 00:00: mouth [place] MICHELE,) 4 mg 00 SEE-INSTRU Med ical tablets CTIONS. Branch follow package directions methylPREDN 2022-0 Yes [id number] 84mg Take 21 Univers ISolone 5-23 9103 tablets by ity of (MEDROL, 00:00: mouth [place] MICHELE,) 4 mg 00 SEE-INSTRU Med ical tablets CTIONS. Branch follow package directions methylPREDN 2021-0 Yes [id number] 84mg Take 21 Univers ISolone 5-23 9103 tablets by ity of (MEDROL, 00:00: mouth [place] MICHELE,) 4 mg 00 SEE-INSTRU Med ical tablets CTIONS. Branch follow package directions methylPREDN 0 2021- No [id number] 84mg Take 21 Univers ISolone 5-23 11-17 9103 tablets by ity o f (MEDROL, 00:00: 00:00 mouth [place] MICHELE,) 4 mg 00 :00 SEE-INSTRU Med ical tablets CTIONS. Branch follow package directions Meloxicam Meloxicam 2021- No 1{table QD Meloxicam 7.5 MG 7.5 MG 5- 06-10 t} 7.5 MG 00:00: 00:00 00 :00 Meloxicam Meloxicam 2021- No 1{table QD Meloxicam 7.5 MG 7.5 MG 5-11 06-10 t} 7.5 MG 00:00: 00:00 00 :00 tiZANidine tiZANidine 2021- No 1{table tiZANidine HCl 4 MG HCl 4 MG 02-04 05-21 t_as_ne HCl 4 MG 00:00: 00:00 eded} 00 :00 Rocephin Rocephin 0 No 1000mg Com mon (Ceftriaxon (Ceftriaxon 4-11 S pirit e) e) 00:00: - CHI 00 [facility] Toradol Toradol 0 No 30mg Common (Ketorolac) (Ketorolac) 4-11 S pirit 00:00: - CHI 00 [facility] Rocephin Rocephin 2021-0 No 1000mg Com mon (Ceftriaxon (Ceftriaxon 4-11 S pirit e) e) 00:00: - CHI 00 [facility] Toradol Toradol 0 No 30mg Common (Ketorolac) (Ketorolac) 4-11 S pirit 00:00: - CHI 00 [facility] Rocephin Rocephin 2-0 No 1000mg Com mon (Ceftriaxon (Ceftriaxon 4-11 S pirit e) e) 00:00: - CHI 00 [facility] Toradol Toradol 2021-0 No 30mg Common (Ketorolac) (Ketorolac) 4-11 S pirit 00:00: - CHI 00 [facility] Naproxen Naproxen 2-0 No BID Naproxen 500 MG 500 MG 4-11 500 MG 00:00: 00 Rocephin Rocephin 2-0 No 1000mg Com mon (Ceftriaxon (Ceftriaxon 4-11 S pirit e) e) 00:00: - CHI 00 [facility] Toradol Toradol 2021-0 No 30mg Common (Ketorolac) (Ketorolac) 4-11 S pirit 00:00: - CHI 00 [facility] Naproxen Naproxen 2-0 No BID Naproxen 500 MG 500 MG 4-11 500 MG 00:00: 00 Rocephin Rocephin 2-0 No 1000mg Com mon (Ceftriaxon (Ceftriaxon 4-11 S pirit e) e) 00:00: - CHI 00 [facility] Toradol Toradol 2021-0 No 30mg Common (Ketorolac) (Ketorolac) 4-11 S pirit 00:00: - CHI 00 [facility] Rocephin Rocephin 2-0 No 1000mg Com mon (Ceftriaxon (Ceftriaxon 4-11 S pirit e) e) 00:00: - CHI 00 [facility] Toradol Toradol 2-0 No 30mg Common (Ketorolac) (Ketorolac) 4-11 S pirit 00:00: - CHI 00 [facility] Rocephin Rocephin 2-0 No 1000mg Com mon (Ceftriaxon (Ceftriaxon 4-11 S pirit e) e) 00:00: - [facility] Toradol Toradol 2-0 No 30mg Common (Ketorolac) (Ketorolac) 4-11 S pirit 00:00: - [facility] Rocephin Rocephin 2022-0 No 1000mg Com mon (Ceftriaxon (Ceftriaxon 4-11 S pirit e) e) 00:00: - CHI 00 [facility] Toradol Toradol 2021-0 No 30mg Common (Ketorolac) (Ketorolac) 4-11 S pirit 00:00: - CHI 00 [facility] Rocephin Rocephin 2-0 No 1000mg Com mon (Ceftriaxon (Ceftriaxon 4-11 S pirit e) e) 00:00: - CHI 00 [facility] Toradol Toradol 2021-0 No 30mg Common (Ketorolac) (Ketorolac) 4-11 S pirit 00:00: - CHI 00 [facility] Rocephin Rocephin 2-0 No 1000mg Com mon (Ceftriaxon (Ceftriaxon 4-11 S pirit e) e) 00:00: - [facility] Toradol Toradol 2021-0 No 30mg Common (Ketorolac) (Ketorolac) 4-11 S pirit 00:00: - CHI 00 [facility] Rocephin Rocephin 2-0 No 1000mg Com mon (Ceftriaxon (Ceftriaxon 4-11 S pirit e) e) 00:00: - CHI 00 [facility] Toradol Toradol 2021-0 No 30mg Common (Ketorolac) (Ketorolac) 4-11 S pirit 00:00: - CHI 00 [facility] Rocephin Rocephin 2-0 No 1000mg Com mon (Ceftriaxon (Ceftriaxon 4-11 S pirit e) e) 00:00: - [facility] Toradol Toradol 2-0 No 30mg Common (Ketorolac) (Ketorolac) 4-11 S pirit 00:00: - CHI 00 [facility] Rocephin Rocephin 2-0 No 1000mg Com mon (Ceftriaxon (Ceftriaxon 4-11 S pirit e) e) 00:00: - [facility] Toradol Toradol 2021-0 No 30mg Common (Ketorolac) (Ketorolac) 4-11 S pirit 00:00: - CHI 00 [facility] cefTRIAXone cefTRIAXone 2021-0 No 1000mg Common Sodium Sodium 4-11 Spirit 00:00: - [facility] Toradol Toradol 2021-0 No 30mg Common (Ketorolac) (Ketorolac) 4-11 S pirit 00:00: - CHI 00 [facility] cefTRIAXone cefTRIAXone 2021-0 No 1000mg Common Sodium Sodium 4-11 Spirit 00:00: - [facility] Toradol Toradol 2021-0 No 30mg Common (Ketorolac) (Ketorolac) 4-11 S pirit 00:00: - [facility] Amoxicillin Amoxicillin 2021-0 2021- No 1{table BID Amoxicilli -Pot -Pot 01-05-18 t} n-Pot Clavulanate Clavulanate 00:00: 00:00 Clavulanat 875-125 MG 875-125 MG 00 :00 e 875-125 MG ceFAZolin 2020-09 No Route: IV, Me moria (ANES) - Drug form: l 18:23: INJ, ONCE, Stop date: 09/26/21 12:23:00 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 ondansetron 2020-09 No Route: IV, Memoria (ANES) Drug form: l 18:23: INJ, ONCE, Stop date: 09/26/21 12:23:00 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 dexamethaso 2020-09 No Route: IV, Memoria ne (ANES) Drug form: l 18:23: INJ, ONCE, Stop date: 09/26/21 12:23:00 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 lidocaine 2020-09 No Route: IV, Me moria (ANES) - Drug form: l 18:23: INJ, ONCE, [place] 00 Stop date: 09/26/21 12:23:00 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 propofol 2020-09 No Route: IV, Mem oria (ANES) - Drug form: l 18:23: INJ, ONCE, [place] 00 Stop date: 09/26/21 12:23:00 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 ceFAZolin 2020-09 No Route: IV, Me moria (ANES) - Drug form: l 18:23: INJ, ONCE, [place] 00 Stop date: 09/26/21 12:23:00 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 ondansetron 2020-09 No Route: IV, Memoria (ANES) 2- Drug form: l 18:23: INJ, ONCE, Stop date: 09/26/21 12:23:00 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 dexamethaso 2020-09 No Route: IV, Memoria ne (ANES) 2- Drug form: l 18:23: INJ, ONCE, Stop date: 09/26/21 12:23:00 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 lidocaine 2020-09 No Route: IV, Me moria (ANES) 2- Drug form: l 18:23: INJ, ONCE, Stop date: 09/26/21 12:23:00 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 propofol 2020-09 No Route: IV, Mem oria (ANES) Drug form: l 18:23: INJ, ONCE, Stop date: 09/26/21 12:23:00 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 ceFAZolin 2020-09 No Route: IV, Me moria (ANES) - Drug form: l 18:23: INJ, ONCE, Stop date: 09/26/21 12:23:00 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 ondansetron 2020-09 No Route: IV, Memoria (ANES) 2- Drug form: l 18:23: INJ, ONCE, Stop date: 09/26/21 12:23:00 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 dexamethaso 2020-09 No Route: IV, Memoria ne (ANES) 2- Drug form: l 18:23: INJ, ONCE, Stop date: 09/26/21 12:23:00 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 lidocaine 2020-09 No Route: IV, Me moria (ANES) 2- Drug form: l 18:23: INJ, ONCE, Stop date: 09/26/21 12:23:00 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 propofol 2020-09 No Route: IV, Mem oria (ANES) 2- Drug form: l 18:23: INJ, ONCE, Stop date: 09/26/21 12:23:00 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 ceFAZolin 2020-09 No Route: IV, Me moria (ANES) 2- Drug form: l 18:23: INJ, ONCE, Stop date: 09/26/21 12:23:00 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 ondansetron 2020-09 No Route: IV, Memoria (ANES) 2- Drug form: l 18:23: INJ, ONCE, Michael 00 Stop date: 09/26/21 12:23:00 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 dexamethaso 2020-09 No Route: IV, Memoria ne (ANES) 2 Drug form: l 18:23: INJ, ONCE, [place] 00 Stop date: 09/26/21 12:23:00 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 lidocaine 2020-09 No Route: IV, Me moria (ANES) 2- Drug form: l 18:23: INJ, ONCE, [place] 00 Stop date: 09/26/21 12:23:00 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 propofol 2020-09 No Route: IV, Mem oria (ANES) 2- Drug form: l 18:23: INJ, ONCE, [place] 00 Stop date: 09/26/21 12:23:00 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 midazolam 2020-09 No Route: IV, Me moria (ANES) 2- Drug form: l 18:22: SOLN, [place] ONCE, Stop date: 09/26/21 12:22:00 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 2020-09 No Route: IV, Mem oria (ANES) 2- Drug form: l 18:22: INJ, ONCE, Michael 00 Stop date: 09/26/21 12:22:00 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 midazolam 2020-09 No Route: IV, Me moria (ANES) 2- Drug form: l 18:22: SOLN, [place] 00 ONCE, Stop date: 09/26/21 12:22:00 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 fentaNYL 2020-09 No Route: IV, Mem oria (ANES) 2- Drug form: l 18:22: INJ, ONCE, Michael Stop date: 09/26/21 12:22:00 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 midazolam 2020-09 No Route: IV, Me moria (ANES) 2- Drug form: l 18:22: SOLN, [place] 00 ONCE, Stop date: 09/26/21 12:22:00 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 fentaNYL 2020-09 No Route: IV, Mem oria (ANES) 2- Drug form: l 18:22: INJ, ONCE, [place] 00 Stop date: 09/26/21 12:22:00 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 midazolam 2020-09 No Route: IV, Me moria (ANES) 2- Drug form: l 18:22: SOLN, [place] 00 ONCE, Stop date: 09/26/21 12:22:00 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 fentaNYL 2020-09 No Route: IV, Mem oria (ANES) 2- Drug form: l 18:22: INJ, ONCE, Michael Stop date: 09/26/21 12:22:00 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 Lactated 2020-09 No Route: IV, Mem oria Ringers 2-31 Total l Injection 17:40: Volume: Roz nn IV (ANES) 00 1,000, 1000 mL Start date: 09/26/21 11:40:00 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, Stop date: 09/26/21 12:40:00 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 Lactated 2020-09 No Route: IV, Mem oria Ringers 2-31 Total l Injection 17:40: Volume: Roz nn IV (ANES) 00 1,000, 1000 mL Start date: 09/26/21 11:40:00 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, Stop date: 09/26/21 12:40:00 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 Lactated 2020-09 No Route: IV, Mem oria Ringers 2-31 Total l Injection 17:40: Volume: Roz nn IV (ANES) 00 1,000, 1000 mL Start date: 09/26/21 11:40:00 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, Stop date: 09/26/21 12:40:00 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 Lactated 2020-09 No Route: IV, Mem oria Ringers 2-31 Total l Injection 17:40: Volume: Roz nn IV (ANES) 00 1,000, 1000 mL Start date: 09/26/21 11:40:00 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, Stop date: 09/26/21 12:40:00 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 Calcium 2020-09 No 1,000 mL, Memor ia Chloride Rate: 75 l 0.0014 15:58: ml/hr, Michael MEQ/ML / 00 Infuse Potassium over: 13.3 Chloride hr, Route: 0.004 IV, Dosing MEQ/ML / Weight Sodium 99.545 kg, Chloride Total 0.103 Volume: MEQ/ML / 1,000, Sodium Start Lactate date: 0.028 09/26/21 MEQ/ML 9:58:00 Injectable 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, Solution Duration: 30 day, Stop date: 10/26/21 9:57:00 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, BSA: 2.22 m2, 0 Calcium 2020-09 No 1,000 mL, Memor ia Chloride 2-31 Rate: 75 l 0.0014 15:58: ml/hr, [place] MEQ/ML / 00 Infuse Potassium over: 13.3 Chloride hr, Route: 0.004 IV, Dosing MEQ/ML / Weight Sodium 99.545 kg, Chloride Total 0.103 Volume: MEQ/ML / 1,000, Sodium Start Lactate date: 0.028 09/26/21 MEQ/ML 9:58:00 Injectable 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, Solution Duration: 30 day, Stop date: 10/26/21 9:57:00 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, BSA: 2.22 m2, 0 Calcium 2020-09 No 1,000 mL, Memor ia Chloride 2-31 Rate: 75 l 0.0014 15:58: ml/hr, [place] MEQ/ML / 00 Infuse Potassium over: 13.3 Chloride hr, Route: 0.004 IV, Dosing MEQ/ML / Weight Sodium 99.545 kg, Chloride Total 0.103 Volume: MEQ/ML / 1,000, Sodium Start Lactate date: 0.028 09/26/21 MEQ/ML 9:58:00 Injectable 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, Solution Duration: 30 day, Stop date: 10/26/21 9:57:00 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, BSA: 2.22 m2, 0 Calcium 2020-09 No 1,000 mL, Memor ia Chloride 2-31 Rate: 75 l 0.0014 15:58: ml/hr, [place] MEQ/ML / 00 Infuse Potassium over: 13.3 Chloride hr, Route: 0.004 IV, Dosing MEQ/ML / Weight Sodium 99.545 kg, Chloride Total 0.103 Volume: MEQ/ML / 1,000, Sodium Start Lactate date: 0.028 09/26/21 MEQ/ML 9:58:00 Injectable 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, Solution Duration: 30 day, Stop date: 10/26/21 9:57:00 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, BSA: 2.22 m2, 0 Folic Acid 2020-09 Yes 1 mg, PO, Me moria 2- 0 l 19:45: Refill(s) Michael 00 folic acid 2020-09 Yes 1 mg, PO, [...] l Medication 15:15: acid PO Herm adam three times week, Refill(s) 0 Unknown 2020-09 [...] 2-29 cap, PO, l capsule 15:14: Daily [place] 00 Fish Oil Fish Oil 2020-09 No [...] UT) 00:00: (1000 UT) 00 hydroCHLORO hydroCHLORO 202-0 No 1{table QD hydroCHLOR thiazide 25 thiazide 25 3-29 t_in_th Othiazide MG MG 00:00: e_morni 25 MG 00 ng} hydroCHLORO hydroCHLORO 202-0 No 1{table QD hydroCHLOR thiazide 25 thiazide 25 3-29 t_in_th Othiazide MG MG 00:00: e_morni 25 MG 00 ng} hydroCHLORO hydroCHLORO 202-0 No 1{table QD hydroCHLOR thiazide 25 thiazide 25 3-29 t_in_th Othiazide MG MG 00:00: e_morni 25 MG 00 ng} hydroCHLORO hydroCHLORO 202-0 No 1{table QD hydroCHLOR thiazide 25 thiazide 25 3-29 t_in_th Othiazide MG MG 00:00: e_morni 25 MG 00 ng} hydroCHLORO hydroCHLORO 202-0 No 1{table QD hydroCHLOR thiazide 25 thiazide 25 3-29 t_in_th Othiazide MG MG 00:00: e_morni 25 MG 00 ng} hydroCHLORO hydroCHLORO 202-0 No 1{table QD hydroCHLOR thiazide 25 thiazide 25 3-29 t_in_th Othiazide MG MG 00:00: e_morni 25 MG 00 ng} hydroCHLORO hydroCHLORO 202-0 No 1{table QD hydroCHLOR thiazide 25 thiazide 25 3-29 t_in_th Othiazide MG MG 00:00: e_morni 25 MG 00 ng} hydroCHLORO hydroCHLORO 2021-0 No 1{table QD hydroCHLOR thiazide 25 thiazide 25 3-29 t_in_th Othiazide MG MG 00:00: e_morni 25 MG 00 ng} hydroCHLORO hydroCHLORO 202-0 No 1{table QD hydroCHLOR thiazide 25 thiazide 25 3-29 t_in_th Othiazide MG MG 00:00: e_morni 25 MG 00 ng} hydroCHLORO hydroCHLORO 202-0 No 1{table QD hydroCHLOR thiazide 25 thiazide 25 3-29 t_in_th Othiazide MG MG 00:00: e_morni 25 MG 00 ng} hydroCHLORO hydroCHLORO 202-0 No 1{table QD hydroCHLOR thiazide 25 thiazide [...] e_morni 25 MG 00 ng} hydroCHLORO hydroCHLORO 202-0 No 1{table QD hydroCHLOR thiazide 25 thiazide [...] e_morni 25 MG 00 ng} hydroCHLORO hydroCHLORO 202-0 No 1{table QD hydroCHLOR thiazide 25 thiazide [...] e_morni 25 MG 00 ng} Albuterol Albuterol 2020-0 No 1{puff_ Albuterol Sulfate [...] 00 (90 Base) MCG/ACT MCG/ACT MCG/ACT clopidogrel 2020- Yes 75 mg = 1 M emoria 75 mg oral 1-15 tab, PO, l tablet 20:18: Daily, # [place] 00 30 tab, 0 Refill(s) losartan 0 Yes 100 mg, Memori a 1-15 PO, Daily, l 20:18: 0 Refill(s) levothyroxi 0 Yes 75 Memori a ne 1-15 microgram, l 20:18: PO, Daily, 0 Refill(s) finasteride Yes 5 mg = 1 Me moria 1-15 tab, PO, l 20:18: Daily, # 30 tab, 0 Refill(s) lovastatin 0 Yes 20 mg, PO, M emoria 1-15 0 l 20:18: Refill(s) Michael 00 clopidogrel Yes 75 mg = 1 M emoria 75 mg oral 1-15 tab, PO, l tablet 20:18: Daily, # 30 tab, 0 Refill(s) losartan Yes 100 mg, Memori a 1-15 PO, Daily, l 20:18: 0 Refill(s) levothyroxi Yes 75 Memori a ne 1-15 microgram, l 20:18: PO, Daily, 0 Refill(s) finasteride Yes 5 mg = 1 Me moria 1-15 tab, PO, l 20:18: Daily, # 30 tab, 0 Refill(s) lovastatin 0 Yes 20 mg, PO, M emoria 1-15 0 l 20:18: Refill(s) Accu-Chek Accu-Chek 2018-09 No Accu-Chek Tania Plus Tania Plus 0-03 Tania Plus - - 00:00: - Accu-Chek Accu-Chek 2018-09 No Accu-Chek Tania Plus Tania Plus 0-03 Tania Plus - - 00:00: - Accu-Chek Accu-Chek 2018- No Accu-Chek Tania Plus [...] Plus - - 00:00: - 00 aspirin 2010- Yes 81 mg, PO, Brodie douglas 6-22 Daily l 22:27: Michael 37 aspirin 2010- Yes 81 mg, PO, Brodie douglas 6-22 Daily l 22:27: Michael 37 metFORmin Yes 500 mg, Memor ia 6-22 PO, 1 tab l 22:27: with [place] 14 breakfast, 1 tab at noon, 2 at dinner metFORmin Yes 500 mg, Memor ia 6-22 PO, 1 tab l 22:27: with Michael 14 breakfast, 1 tab at noon, 2 at dinner Clopidogrel Clopidogrel No 1{table QD Clopidogre Bisulfate [...] Yes Regina 1 capsule Common HCl HCl [place] [facility] metFORMIN metFORMIN No metFORMIN HCl 500 [...] MG HCl 0.4 MG HCl 0.4 MG Vital Signs Vital Name Observation Time Observation Value Comments Source Systolic blood 2022-08-13 17:39:00 151 mm[Hg] Univer sity of pressure [facility] Diastolic blood 2022-08-13 17:39:00 94 mm[Hg] Unive rsity of pressure [facility] Heart rate 2022-08-13 17:39:00 82 /min [facility] Body temperature 2022-08-13 17:39:00 [facility].33 [facility] 2022-08-13 17:39:00 18 /min [facility] Oxygen saturation in 2022-08-13 17:39:00 96 /min [facility] Arterial blood by [facility] Pulse oximetry Branch Body weight 2022-08-13 09:43:00 89.994 kg [facility] BMI 2022-08-13 09:43:00 29.30 kg/m2 [facility] Body height 2022-08-13 01:42:00 175.3 cm [facility] height 2022-06-19 11:00:00 69.5 [in_i] Common [facility] weight 2022-06-19 11:00:00 212 [lb_av] [facility] temperature 2022-06-19 11:00:00 98.6 [degF] [facility] bmi 2022-06-19 11:00:00 30.85 kg/m2 [facility] oximetry 2022-06-19 11:00:00 96 % [facility] respiratory rate 2022-06-19 11:00:00 17 /min [facility] blood pressure 2022-06-19 11:00:00 134 mm[Hg] [facility] systolic [facility] blood pressure 2022-06-19 11:00:00 80 mm[Hg] [facility] - diastolic [facility] height 2022-06-19 10:40:00 69.5 [in_i] Common [facility] weight 2022-06-19 10:40:00 212 [lb_av] Common [facility] temperature 2022-06-19 10:40:00 98.6 [degF] Common [facility] bmi 2022-06-19 10:40:00 30.85 kg/m2 Common [facility] oximetry 2022-06-19 10:40:00 96 % Common [facility] respiratory rate 2022-06-19 10:40:00 17 /min Comm on [facility] blood pressure 2022-06-19 10:40:00 134 mm[Hg] Common [facility] - systolic [facility] blood pressure 2022-06-19 10:40:00 80 mm[Hg] [facility] height 2022-06-15 11:20:00 69.5 [in_i] Common [facility] weight 2022-06-15 11:20:00 212 [lb_av] Common [facility] temperature 2022-06-15 11:20:00 98.2 [degF] Common [facility] bmi 2022-06-15 11:20:00 30.85 kg/m2 Common [facility] oximetry 2022-06-15 11:20:00 97 % Common [facility] respiratory rate 2022-06-15 11:20:00 16 /min Comm on [facility] blood pressure 2022-06-15 11:20:00 134 mm[Hg] Common [facility] - systolic [facility] blood pressure 2022-06-15 11:20:00 76 mm[Hg] Common [facility] - diastolic [facility] Body height 2022-05-19 13:09:00 175.3 cm [facility] Body weight 2022-05-19 13:09:00 95.255 kg [facility] BMI 2022-05-19 13:09:00 31.01 kg/m2 [facility] height 2022-02-04 09:20:00 69.5 [in_i] Common [facility] weight 2022-02-04 09:20:00 211.8 [lb_av] Common [facility] temperature 2022-02-04 09:20:00 97.5 [degF] Common [facility] bmi 2022-02-04 09:20:00 30.83 kg/m2 Common [facility] oximetry 2022-02-04 09:20:00 95 % Common [facility] respiratory rate 2022-02-04 09:20:00 16 /min Comm on [facility] blood pressure 2022-02-04 09:20:00 134 mm[Hg] Common [facility] - systolic [facility] blood pressure 2022-02-04 09:20:00 78 mm[Hg] Common [facility] - diastolic [facility] height 2022-01-05 14:40:00 69.5 [in_i] Common [facility] weight 2022-01-05 14:40:00 210.4 [lb_av] [facility] temperature 2022-01-05 14:40:00 98.1 [degF] Common [facility] bmi 2022-01-05 14:40:00 30.62 kg/m2 [facility] oximetry 2022-01-05 14:40:00 97 % Common [facility] respiratory rate 2022-01-05 14:40:00 16 /min Comm on [facility] blood pressure 2022-01-05 14:40:00 138 mm[Hg] [facility] blood pressure 2022-01-05 14:40:00 74 mm[Hg] Common [facility] - diastolic [facility] height 2021-12-22 08:40:00 69.5 [in_i] Common [facility] weight 2021-12-22 08:40:00 216.8 [lb_av] Common [facility] temperature 2021-12-22 08:40:00 97.5 [degF] Common [facility] bmi 2021-12-22 08:40:00 31.55 kg/m2 [facility] oximetry 2021-12-22 08:40:00 97 % Common [facility] respiratory rate 2021-12-22 08:40:00 16 /min Comm on [facility] blood pressure 2021-12-22 08:40:00 136 mm[Hg] Common [facility] - systolic [facility] blood pressure 2021-12-22 08:40:00 78 mm[Hg] Common [facility] - diastolic [facility] height 2021-08-26 16:00:00 69.5 [in_i] [facility] weight 2021-08-26 16:00:00 213.2 [lb_av] [facility] temperature 2021-08-26 16:00:00 98.3 [degF] Common [facility] bmi 2021-08-26 16:00:00 31.03 kg/m2 [facility] oximetry 2021-08-26 16:00:00 97 % [facility] respiratory rate 2021-08-26 16:00:00 16 /min Comm on [facility] blood pressure 2021-08-26 16:00:00 130 mm[Hg] Common [facility] - systolic [facility] blood pressure 2021-08-26 16:00:00 72 mm[Hg] Common [facility] - diastolic [facility] height 2021-06-24 08:00:00 69.5 [in_i] Common [facility] weight 2021-06-24 08:00:00 221.8 [lb_av] [facility] temperature 2021-06-24 08:00:00 99.0 [degF] Common [facility] bmi 2021-06-24 08:00:00 32.28 kg/m2 Common [facility] oximetry 2021-06-24 08:00:00 97 % Common [facility] respiratory rate 2021-06-24 08:00:00 16 /min Comm on [facility] blood pressure 2021-06-24 08:00:00 138 mm[Hg] Common [facility] - systolic [facility] blood pressure 2021-06-24 08:00:00 88 mm[Hg] Common [facility] - diastolic [facility] height 2021-03-25 08:40:00 69.5 [in_i] Common [facility] weight 2021-03-25 08:40:00 226.8 [lb_av] Common [facility] temperature 2021-03-25 08:40:00 97.8 [degF] Common [facility] bmi 2021-03-25 08:40:00 33.01 kg/m2 [facility] oximetry 2021-03-25 08:40:00 98 % Common [facility] respiratory rate 2021-03-25 08:40:00 16 /min Comm on [facility] blood pressure 2021-03-25 08:40:00 136 mm[Hg] Common [facility] - systolic [facility] blood pressure 2021-03-25 08:40:00 76 mm[Hg] Common [facility] - diastolic [facility] Systolic (mm Hg) 2023-01-12 20:10:00 Brodie rial Michael Diastolic (mm Hg) 2023-01-12 20:10:00 Mem orial Michael Heart Rate 2023-01-12 20:10:00 [facility] Height 2023-01-12 20:10:00 5 [ft_i] [facility] [place] Weight 2023-01-12 20:10:00 [facility] [place] BMI Calculated 2023-01-12 20:10:00 Memori al [place] Respitory Rate 2021-09-26 19:20:00 Memori al [place] Systolic (mm Hg) 2021-09-26 19:20:00 Brodie rial Michael Diastolic (mm Hg) 2021-09-26 19:20:00 Mem orial Michael Respitory Rate 2021-09-26 19:05:00 Memori al Michael Systolic (mm Hg) 2021-09-26 19:05:00 Brodie rial Michael Diastolic (mm Hg) 2021-09-26 19:05:00 Mem orial [place] Respitory Rate 2021-09-26 18:50:00 Memori al Michael Systolic (mm Hg) 2021-09-26 18:50:00 Brodie rial [place] Diastolic (mm Hg) 2021-09-26 18:50:00 Mem orial Michael Weight 2021-09-26 16:27:00 Memorial Michael BMI Calculated 2021-09-26 16:27:00 Memori al [place] Heart Rate 2021-09-26 15:54:00 Memorial Michael Height 2021-09-24 19:39:00 175.26 cm [facility] Height 2021-09-24 15:25:00 175.26 cm [facility] Michael Weight 2021-09-24 15:25:00 [facility] [place] BMI Calculated 2021-09-24 15:25:00 Memori al [place] Procedures Procedure Date / Time Performing Clinician Source Performed NOTICE OF PRIVACY 2023-01-07 13:09:51 [facility] CONSENT/REFUSAL FOR 2023-01-07 13:09:26 Doctor Unassigned, No [facility] DIAGNOSIS AND TREATMENT [facility] ASSIGNMENT OF BENEFITS 2023-01-07 13:08:59 Doctor Unassigned, No [facility] TRANSTHORACIC ECHO (TTE) 2022-08-13 20:02:00 Andre David [facility] COMPLETE W/ CONTRAST [facility] POCT GLUCOSE (AUTOMATED) 2022-08-13 17:40:00 Alexandre Montemayor [facility] POCT GLUCOSE (AUTOMATED) 2022-08-13 13:32:00 Alexandre Montemayor [facility] MAGNESIUM 2022-08-13 09:50:00 Alexandre Montemayor Keymar o [facility] BASIC METABOLIC PANEL 2022-08-13 09:50:00 Alexandre Montemayor [facility] (NA, K, CL, CO2, Medical Branch GLUCOSE, BUN, CREATININE, CA) CBC WITH DIFF 2022-08-13 09:50:00 Alexandre Montemayor [facility] PHOSPHORUS 2022-08-13 03:53:00 [facility] TROPONIN I 2022-08-13 02:32:00 [facility] POCT GLUCOSE (AUTOMATED) 2022-08-13 01:22:00 Alexandre Montemayor [facility] CT ANGIOGRAM CHEST 2022-08-12 19:53:05 Tung [facility] ANGIOGRAM 2022-08-12 19:53:05 Tung [facility] ABDOMEN/PELVIS [facility] HB ECG ROUTINE & RHYTHM 2022-08-12 19:09:59 Leonora Ruby [facility] TROPONIN I 2022-08-12 19:08:00 [facility] RHYTHM 2022-08-12 18:01:56 Leonora Ruby [facility] LIPASE 2022-08-12 17:05:00 Tung [facility] TROPONIN I 2022-08-12 17:05:00 Tung [facility] COMP. METABOLIC PANEL 2022-08-12 17:05:00 Leonora Ruby [facility] ([id number]) [facility] CBC WITH DIFF 2022-08-12 17:05:00 [facility] GLYCOSYLATED HEMOGLOBIN 2022-08-12 17:05:00 Andre [facility] (A1C[facility] PROTHROMBIN TIME / INR 2022-08-12 17:05:[address] [facility] URINALYSIS 2022-08-12 17:05:00 Tung [facility] N-TERMINAL PRO-BNP 2022-08-12 17:05:00 Leonora Ruby [facility] HB ECG ROUTINE & RHYTHM 2022-08-12 16:51:46 Leonora Ruby [facility] CONSENT/REFUSAL FOR 2022-08-12 16:16:12 Doctor Unassigned, No [facility] DIAGNOSIS AND TREATMENT Name Medical Branch REFERRAL- 2022-06-16 05:01:00 Doctor Unassigned, No [facility] [place] REQUEST/RESPONSE Name [facility] CT, urogram 2018-07-07 00:00:00 [place] [facility] 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[facility] n amputation<sup>1</sup> Procedure on [facility] foot<sup>4</sup> Laminectomy<sup>2</sup> [facility] Plan of Care Planned Activity Planned Date Details Comments Source Diagnostic Test 2018-07-07 cytology, urine [facility] Pending 00:00:00 [code = cytology, Group urine] Encounters Start End Encounter Admission Attending Care Care Encounter Source Date/Time Date/Time Type Type Clinicians Facility Department ID 2022-09-15 Outpatient Oliveira, STLMLC STLMLC [id number] Common 09:28:02 Maira 06840 [facility] 2021-10-22 Outpatient Oliveira, STLMLC STLMLC [id number] Common 14:27:24 Maira 87181 [facility] 2021-10-22 Outpatient Oliveira, STLMLC STLMLC [id number] Common 14:18:00 Maira 38972 [facility] 2021-10-22 Outpatient [place], STLMLC STLMLC [id number] Common 13:35:45 Regina 09555 [facility] 2021-10-22 Outpatient [place], STLMLC STLMLC [id number] Common 12:41:58 Regina 25123 [facility] 2021-10-22 Outpatient [place], STLMLC STLMLC [id number] Common 12:40:52 Regina 71903 [facility] 2021-10-22 Outpatient [place], STLMLC STLMLC [id number] Common 12:12:33 Regina 58876 [facility] 2021-10-22 Outpatient [place], STLMLC STLMLC [id number] Common 11:56:49 Regina 02419 [facility] 2021-10-22 Outpatient [place], STLMLC STLMLC [id number] Common 11:56:09 Regina 04117 [facility] 2021-10-22 Outpatient [place], STLMLC STLMLC [id number] Common 11:21:52 Regina 37199 [facility] 2021-10-22 Outpatient [place], STLMLC STLMLC [id number] Common 11:07:15 Regina 34114 [facility] 2021-10-22 Outpatient [place], STLMLC STLC [id number] Common 11:06:53 Regina 25614 [facility] 2021-10-22 Outpatient [place], STLMLC STLC [id number] Common 10:59:53 Regina 13817 [facility] 2021-07-28 Emergency [facility] [id number] Univers 23:28:16 [facility] 2023-02-12 2023-02-12 Outpatient MHIE MHIE [id number] Memoria 08:15:00 08:15:00 01 eb Rodriguez 2023-02-12 2023-02-12 Outpatient MHIE MHIE [id number] Memoria 08:15:00 08:15:00 01 eb Rodriguez 2023-01-12 2023-01-13 Outpatient MHIE MNA [id number] Memoria 20:15:00 04:59:59 Neurology 00 eb Rodriguez 2023-01-12 2023-01-13 Outpatient MHIE MNA [id number] Memoria 20:15:00 04:59:59 Neurology 00 eb Rodriguez 2023-01-12 2023-01-12 Outpatient SAADIA HaysMISCHER MHMISCHER [id number] 15:15:00 23:59:59 Jeison Airam [place] 2023-01-12 2023-01-12 Outpatient MHIE MHIE [id number] Memoria 15:15:00 15:15:00 00 eb Rodriguez 2023-01-07 2023-01-07 Hospital Radiology [facility] [id number] Univers 08:11:54 23:59:00 Encounter [place] [id number] ity of DANJUN [id number] [facility] [id number] [facility] [address] Branch 2023-01-07 2023-01-07 Outpatient R RADIOLOGY [facility] [id number] Univers 00:00:00 23:59:00 ity of [facility] 2022-10-28 2022-10-28 (TEL) STLMLC STLMLC [id number] Co mmon 00:00:00 00:00:00 [facility] 2022-08-14 2022-08-14 Transition Dwayne LORIViktor [id number] Univers 00:00:00 00:00:00 of Care [place] ELAM [id number] it y of [place] [id number] [facility] [id number] [facility] [address] 2022-08-14 2022-08-14 (TEL) STLMLC STLMLC [id number] Co mmon 00:00:00 00:00:00 [facility] 2022-08-12 2022-08-13 Outpatient X RUPESH, [facility] KIP [id number] Univers 10:44:00 16:22:00 EARL ity [facility] 2022-08-12 2022-08-13 Emergency Ruby, Leonora [facility] 1.2.840 .114 [id number] Univers 10:44:00 16:22:00 Alexandre Montemayor 350.1.13.10 ity of Rupesh Earlnevaeh [place] 4.2.7.2.686 [facility] [id number] [facility] [address] 2022-06-22 2022-06-22 (TEL) STLMLC STLMLC [id number] Co mmon 00:00:00 00:00:00 [facility] 2022-06-19 2022-06-19 (MCR WELL) STLMLC STLMLC [id number] Common 00:00:00 00:00:00 Medicare Spiri t Wellness [facility] 2022-06-19 2022-06-19 OFFICE STLMLC STLMLC [id number] Co mmon 00:00:00 00:00:00 VISIT EST Spir it PT LEVEL 3 - [facility] 2022-06-16 2022-06-16 Orders Doctor MEGAN 1.2.840.114 [id number] Univers 00:00:00 00:00:00 Only Unassigned, ANASTASIA 350.1.13.10 ity of [place] [facility] 4.2.7.2.686 Ty as [id number] [address] 2022-06-15 2022-06-15 OFFICE STLMLC STLMLC [id number] Co mmon 00:00:00 00:00:00 VISIT EST Spir it PT LEVEL 3 - [facility] 2022-05-21 2022-05-21 Telephone [facility] 1.2.840.114 [id number] Univers 00:00:00 00:00:00 [facility] 350.1.13.10 it y of [facility] 4.2.7.2.686 Ty as MANOJ?BLEA [phone] Ms nikita THOMPSON [address] [place] [address] OFFICE [facility] 2022-05-19 2022-05-19 Office [facility] 1.2.840.114 [id number] Univers 08:45:00 09:00:00 Visit Brian [facility] 350.1.13.10 it y [facility] 4.2.7.2.686 Ty as MANOJ?BLEA [id number] Ms [address]ard[address] OFFICE [facility] 2022-05-19 2022-05-19 Outpatient R SARBJIT [facility] [id number] Univers 08:45:00 08:45:00 BRIAN ity [facility] 2022-05-19 2022-05-19 Outpatient R SARBJIT [facility] [id number] Univers 08:45:00 08:45:00 BRIAN ity [facility] 2022-05-16 2022-05-16 Outpatient R RADIOLOGY [facility] [id number] Univers 07:47:58 23:59:00 ity [facility] 2022-05-16 2022-05-16 Hospital Radiology [facility] 1.2.840.114 [id number] Univers 07:47:58 23:59:00 Encounter [place] 350.1.13.10 ity of [place] 4.2.7.2.686 [facility] [id number] [facility] [address] 2022-05-16 2022-05-16 Outpatient R RADIOLOGY [facility] [id number] Univers 07:47:58 23:59:00 ity of [facility] 2022-05-14 2022-05-14 [facility] Radiology [facility]ERS[facility] 1.2.840.114 [id number] Univers 08:30:00 08:30:00 Encounter Y HEALTH 350.1.13.10 ity of [facility] 4.2.7.2.686 [facility] [id number] [facility] [address] 2022-05-14 2022-05-14 Outpatient R RADIOLOGY [facility] [id number] Univers 00:00:00 00:00:00 ity of [facility] 2022-05-14 2022-05-14 Outpatient R RADIOLOGY [facility] [id number] Univers 00:00:00 00:00:00 ity of [facility] 2022-05-12 2022-05-12 Telephone [facility] 1.2.840.114 [id number] Univers 00:00:00 00:00:00 Wallace Edge HEALTH 350.1.13.10 it y of [place] 4.2.7.2.686 Ty as MANOJ?BLEA [id number] [address] MEDICAL OFFICE BUILDING 2022-05-11 2022-05-11 Outpatient [facility] [id number] Univers 15:14:20 23:59:00 WALLACE ity of [facility] 2022-05-11 2022-05-11 [facility] 1.2.840.114 [id number] Univers 15:14:20 23:59:00 Encounter Wallace CORDERO 350.1.13.10 ity of [facility] 4.2.7.2.686 [facility] [id number] [facility] [address] 2022-05-11 2022-05-11 Office [facility] 1.2.099.710 [id number] Univers 14:45:00 14:45:00 Visit Wallace GIBBONS 350.1.13.10 it y of [place] 4.2.7.2.686 Ty as MANOJ?BLEA [id number] Ms nikita THOMPSON [address] [place] [address] OFFICE [facility] 2022-05-11 2022-05-11 Outpatient R NILA [facility] [id number] Univers 14:45:00 14:34:12 WALLACE chinchilla [facility] 2022-05-07 2022-05-07 Telephone [facility] 1.2.840.114 [id number] Univers 00:00:00 00:00:00 Wallace GIBBONS 350.1.13.10 it y of [place] 4.2.7.2.686 Ty as MANOJ?BLEA [id number] Ms nikita THOMPSON [address] [place] [address] 2022-03-05 2022-03-05 (TEL) STLMLC [facility] [id number] Co mmon 00:00:00 00:00:00 [facility] 2022-03-03 2022-03-03 Outpatient [facility] [id number] Univers 13:04:32 23:59:00 WALLACE saleem [facility] 2022-03-03 2022-03-03 Office [facility] 1.2.840.114 [id number] Univers 13:45:00 14:00:00 Visit Brian Maciel [facility] 350.1.13.10 it y of [place] 4.2.7.2.686 Ty as MANOJ?BLEA [id number] Ms nikita THOMPSON [address] [place] [address] 2022-03-03 2022-03-03 Outpatient Alec [facility] [id number] Univers 13:45:00 13:45:00 [facility]-16 2022-02-16 Outpatient Alec [facility] [id number] Univers 13:27:13 23:59:00 [facility] 2022-02-16 2022-02-16 Outpatient Alec [facility] [id number] Univers 13:27:13 23:59:00 BRIAN [facility] 2022-02-16 2022-02-16 Office [facility] 1.2.840.114 [id number] Univers 13:45:00 14:00:00 Visit [facility] 350.1.13.10 it y of [facility] 4.2.7.2.686 Ty as MANOJ?BLEA [id number] Ms nikita [address] 2022-02-16 2022-02-16 Outpatient R SARBJIT [facility] [id number] Univers 13:45:00 13:45:00 BRIAN ity of [facility] 2022-02-16 2022-02-16 Orders Doctor MEGAN 1.2.840.114 [id number] Univers 00:00:00 00:00:00 Only Unassigned, ANASTASIA 350.1.13.10 ity of [place] [facility] 4.2.7.2.686 Ty as [id number] [address] 2022-02-16 2022-02-16 Telephone [facility] 1.2.379.784 [id number] Univers 00:00:00 00:00:00 [facility] HEALTH 350.1.13.10 it y of [place] 4.2.7.2.686 Ty as MANOJ?BLEA [id number] Ms richardtanja [address] 2022-02-05 2022-02-05 Orders Doctor MEGAN 1.2.840.114 [id number] Univers 00:00:00 00:00:00 Only Unassigned, ANASTASIA 350.1.13.10 ity of [place] [facility] 4.2.7.2.686 Ty as [id number] [address] 2022-02-04 2022-02-04 OFFICE STLMLC STLMLC [id number] Co mmon 00:00:00 00:00:00 VISIT EST Spir it PT LEVEL 3 - [facility] 2022-01-19 2022-01-19 (TEL) STLMLC STLMLC [id number] Co mmon 00:00:00 00:00:00 Spirit - [facility] 2022-01-05 2022-01-05 OFFICE STLMLC STLMLC [id number] Co mmon 00:00:00 00:00:00 VISIT EST Spir it PT LEVEL 3 - [facility] 2021-12-22 2021-12-22 OFFICE STLMLC STLMLC [id number] Co mmon 00:00:00 00:00:00 VISIT Spirit ESTAB PT - CHI LEVEL 4 [facility] 2021-11-20 2021-11-20 (TEL) STLMLC STLMLC [id number] Co mmon 00:00:00 00:00:00 [facility] 2021-10-21 2021-10-21 (TEL) STLMLC STLMLC [id number] Co mmon 00:00:00 00:00:00 [facility] 2021-10-02 2021-10-02 (TEL) STLMLC STLMLC [id number] Co mmon 00:00:00 00:00:00 [facility] 2021-09-26 2021-09-26 Day [facility] [id number] Memoria 14:19:00 19:21:00 Surgery r [place] 02 [facility] 2021-09-26 2021-09-26 Day [facility] [id number] Memoria 14:19:00 19:21:00 Surgery r [address] 2021-09-26 2021-09-26 Outpatient CURT Nash [facility]PL [id number] 08:19:00 13:21:00 Braxton Coleman Magdi 2021-09-26 2021-09-26 Outpatient LORI NASH MHBL [id number] MHHERON 08:19:00 13:21:00 [place] 2021-09-12 2021-09-12 (TEL) STLMLC STLMLC [id number] Co mmon 00:00:00 00:00:00 [facility] 2021-09-08 2021-09-08 (TEL) STLMLC STLMLC [id number] Co mmon 00:00:00 00:00:00 [facility] 2021-09-02 2021-09-02 Outpatient Alec BAH MDANETTE OPH [id number] Univers 06:24:00 09:17:00 CHE chinchilla [facility] 2021-09-02 2021-09-02 Hospital [facility] 1.2.840.114 [id number] Univers 06:24:00 09:17:00 Encounter Che CORDERO 350.1.13.10 ity of [place] 4.2.7.2.686 [place] SUR[place]ICAL [id number] [facility] [address] 2021-09-02 2021-09-02 Surgery [facility] 1.2.563.961 [id number] Univers 07:30:00 08:31:00 Che CORDERO 350.1.13.10 ity of [place] 4.2.7.2.686 [facility] s SURGICAL [id number] [facility] [address] 2021-09-01 2021-09-01 Outpatient [facility] [id number] Univers 09:45:00 09:45:00 CHE ity [facility] 2021-09-01 2021-09-01 Laboratory Only, Adc Test [facility] 1.2.840. 114 [id number] Univers 08:58:02 09:13:02 Only Che Bah 350.1.13. 10 ity of [place] 4.2.7.2.686 [facility] [id number] [facility] [address] 2021-09-01 2021-09-01 Orders Doctor MEGAN 1.2.840.114 [id number] Univers 00:00:00 00:00:00 Only Unassigned, ANASTASIA 350.1.13.10 [facility] 4.2.7.2.686 Ty [id number] [facility] [address] 2021-09-01 2021-09-01 (TEL) STLMLC STLMLC [id number] Co mmon 00:00:00 00:00:00 [facility] 2021-08-26 2021-08-26 OFFICE STLMLC STLMLC [id number] Co mmon 00:00:00 00:00:00 VISIT EST Spir it PT LEVEL 3 - [facility] 2021-08-19 2021-08-19 (TEL) STLMLC STLMLC [id number] Co mmon 00:00:00 00:00:00 [facility] 2021-08-13 2021-08-13 Outpatient R SARBJIT [facility] [id number] Univers 13:15:00 13:15:00 BRIAN [facility] 2021-08-13 2021-08-13 Office [facility] 1.2.840.114 [id number] Univers 12:47:28 13:02:28 Visit Brian [facility] 350.1.13.10 it y of [place] 4.2.7.2.686 Ty as MANOJ?BLEA [id number] Ms dictanja THOMPSON [address] MEDICAL OFFICE [facility] 2021-08-13 2021-08-13 Telephone [facility] 1.2.840.114 [id number] Univers 00:00:00 00:00:00 [facility] 350.1.13.10 it y of SURGICAL 4.2.7.2.686 Ty as SPECIALTI [id number] Ms dical JAKE 198 [facility] 2021-07-29 2021-07-29 (TEL) STLMLC STLMLC [id number] Co mmon 00:00:00 00:00:00 [facility] 2021-07-25 2021-07-25 (TEL) STLMLC STLMLC [id number] Co mmon 00:00:00 00:00:00 [facility] 2021-07-21 2021-07-21 [facility] 1.2.840.114 [id number] Univers 13:35:00 23:59:00 Encounter Wallace Edge [employer] 350.1.13.10 ity of [place] 4.2.7.2.686 Ty as Manoj?Blea [id number] Ms nikita thompson [address] Medical Office [facility] 2021-07-21 2021-07-21 [facility] [id number] Univers 13:35:00 23:59:00 [facility] 2021-07-21 2021-07-21 Outpatient R NILA [facility] [id number] Univers 13:30:00 14:45:07 [facility] 2021-07-21 2021-07-21 Office [facility] 1.2.204.328 [id number] Univers 13:00:10 14:45:07 Visit Wallace [facility] 350.1.13.10 it y of [place] 4.2.7.2.686 Ty as MANOJ?BLEA [id number] [address] MEDICAL OFFICE BUILDING 2021-07-21 2021-07-21 Outpatient [facility] [id number] [facility] 13:30:00 13:30:00 WALLACE chinchilla [facility] 2021-07-21 2021-07-21 (TEL) STLMLC STLMLC [id number] Co mmon 00:00:00 00:00:00 [facility] 2021-07-11 2021-07-11 (TEL) STLMLC STLMLC [id number] Co mmon 00:00:00 00:00:00 Spirit [facility] 2021-07-11 2021-07-11 OFFICE STLMLC STLMLC [id number] Co mmon 00:00:00 00:00:00 VISIT Spirit ESTAB PT - CHI LEVEL 1 [facility] 2021-07-07 2021-07-07 (TEL) STLMLC STLMLC [id number] Co mmon 00:00:00 00:00:00 Spirit - [facility] 2021-06-29 2021-06-29 (TEL) STLMLC STLMLC [id number] Co mmon 00:00:00 00:00:00 Spirit [facility] 2021-06-24 2021-06-24 OFFICE STLMLC STLMLC [id number] Co mmon 00:00:00 00:00:00 VISIT [facility] ESTAB PT - CHI LEVEL 4 [facility] 2021-06-13 2021-06-13 Emergency [facility] 1.2.840.114 [id number] [facility] 14:19:00 18:37:00 Shannon Cordero 350.1.13.10 ity of [place] 4.2.7.2.686 [place] [id number] [address] 2021-06-062021-06-06 Outpatient STLMLC STLMLC [id number] Common 00:00:00 00:00:00 [facility] 2021-05-05 2021-05-05 Outpatient STLMLC STLMLC [id number] Common 00:00:00 00:00:00 [facility] 2021-04-30 2021-04-30 Outpatient STLMLC STLMLC [id number] Common 00:00:00 00:00:00 [facility] 2021-04-30 2021-04-30 Outpatient STLMLC STLMLC [id number] Common 00:00:00 00:00:00 [facility] 2021-04-25 2021-04-25 Outpatient STLMLC STLMLC [id number] Common 00:00:00 00:00:00 [facility] 2021-04-03 2021-04-03 Outpatient STLMLC STLMLC [id number] Common 00:00:00 00:00:00 [facility] 2021-03-25 2021-03-25 OFFICE STLMLC STLMLC [id number] Co mmon 00:00:00 00:00:[address] 2021-01-24 2021-01-24 Outpatient STLMLC STLMLC [id number] Common 00:00:00 00:00:00 [facility] 2021-01-17 2021-01-17 Outpatient STLMLC STLMLC [id number] Common 00:00:00 00:00:00 [facility] 2021-01-13 2021-01-13 Outpatient STLMLC STLMLC [id number] Common 00:00:00 00:00:00 [facility] 2021-01-10 2021-01-10 Outpatient STLMLC STLMLC [id number] Common 00:00:00 00:00:00 [facility] 2020-12-31 2020-12-31 Outpatient STLMLC STLMLC [id number] Common 00:00:00 00:00:00 [facility] 2020-12-25 2020-12-25 Outpatient Ale[facility] [id number] Univers 13:45:00 13:45:00 [facility] 2020-12-25 2020-12-25 Office [facility] 1.2.473.500 [id number] 12:51:24 13:25:[address] [facility] 350.1.13.10 Surgical 4.2.7.2.686 [facility] [id number] [address] 2020-12-23 2020-12-23 Outpatient Alec [facility] [id number] Univers 13:45:00 13:45:00 [facility] 2020-12-23 2020-12-23 Outpatient STLMLC STLMLC [id number] Common 00:00:00 00:00:00 [facility] 2020-12-21 2020-12-21 Outpatient STLMLC STLMLC [id number] Common 00:00:00 00:00:00 [facility] 2020-12-19 2020-12-19 Outpatient STLMLC STLMLC [id number] Common 00:00:00 00:00:00 [facility] 2020-12-17 2020-12-17 Outpatient STLMLC STLMLC [id number] Common 00:00:00 00:00:00 [facility] 2020-12-17 2020-12-17 Outpatient STLMLC STLMLC [id number] Common 00:00:00 00:00:00 [facility] 2020 2020 Outpatient STLMLC STLMLC [id number] Common 00:00:00 00:00:00 [facility] 2020-12-09 2020-12-09 Outpatient STLMLC STLMLC [id number] Common 00:00:00 00:00:00 [facility] 2020-11-07 2020-11-07 Outpatient STLMLC STLMLC [id number] Common 00:00:00 00:00:00 [facility] 2020-11-04 2020-11-04 Outpatient STLMLC STLMLC [id number] Common 00:00:00 00:00:00 [facility] 2020-11-04 2020-11-04 Outpatient STLMLC STLMLC [id number] Common 00:00:00 00:00:00 [facility] 2020-10-15 2020-10-15 Outpatient SAAD, [facility] [address] [facility] 07:11:00 12:00:00 [place] 2020-09-09 2020-09-09 Outpatient STLMLC STLMLC [id number] Common 00:00:00 00:00:00 [facility] 2020-08-14 2020-08-14 Outpatient Young_J MMG MMG [id number] [address] [place] 02:37:00 02:37:00 [facility] 2020-07-16 2020-07-16 Outpatient STLMLC STLMLC [id number] Common 00:00:00 00:00:00 [facility] 2020-07-04 2020-07-04 Outpatient Alec [facility] [id number] Univers 08:00:00 08:00:00 [facility] 2020-05-06 2020-05-06 [facility] [id number] Common 10:52:00 10:52:00 [facility] it [facility] 2020-04-15 2020-04-15 Outpatient Alec SCHAFFER [facility] [id number] Univers 15:45:00 15:45:00 [facility] 2020-04-11 2020-04-11 Outpatient [facility] [id number] Univers 15:30:00 15:30:00 [facility] 2020-04-10 2020-04-10 Outpatient [facility] [id number] Common 13:19:00 13:19:00 [facility] it [facility] 2020-04-08 2020-04-08 Outpatient [facility] [id number] Common 11:08:00 11:08:00 [facility] it [facility] 2020-04-05 2020-04-05 Outpatient [facility] [id number] Common 18:34:00 18:34:[address] Sp[address] [facility] 2020-03-07 2020-03-07 Outpatient R NILA, [facility] [id number] Univers 15:00:00 15:00:00 WALLACE [facility] 2020-01-09 2020-01-09 Outpatient [facility] [id number] Common 14:23:00 14:23:[address] Sp[address] [facility] 2020-01-08 2020-01-08 Outpatient [facility] [id number] Common 08:00:00 08:00:[address] Sp[address] [facility] 2019-11-22 2019-11-22 Outpatient [facility] [id number] Common 19:45:00 19:45:[address] [facility] 2019-11-08 2019-11-08 Outpatient [facility] [id number] Common 09:12:00 09:12:[address] Sp[address] [facility] 2019-11-07 2019-11-07 Outpatient [facility] [id number] Common 08:17:00 08:17:[address] [facility] 2019-10-19 2019-10-19 Outpatient [facility] [id number] Common 15:57:00 15:57:[address] [facility] 2019-10-18 2019-10-18 Outpatient [facility] [id number] Common 09:24:00 09:24:[address] [facility] 2019-10-17 2019-10-17 Outpatient [facility] [id number] Common 09:00:00 09:00:[address] Sp[address] [facility] 2019-10-11 2019-10-11 Outpatient O [facility] [id number] Univers 15:30:52 15:30:00 [facility] 2019-10-09 2019-10-09 Out[facility] [id number] Common 10:27:00 10:27:00 [facility] it Road [facility] 2019-10-09 2019-10-09 Outpatient [facility] [id number] Common 09:00:00 09:00:00 [facility] it Road [facility] 2018-08-08 2018-08-08 Saravanan [facility] [place] - [id number] M atagor 00:00:00 00:00:00 Terrance, DO: Discovery noe [address] [address] , Ph. [phone] 2018-08-04 2018-08-04 Jose Noe [place] - [id number] M atagor 00:00:00 00:00:00 MD Bobbi: Discovery batres [address] [place] [address], [place] [id number] , Ph. 2018-07-07 2018-07-07 Jose Noe MM [place] - [id number] M atagor 00:00:00 00:00:00 MD Bobbi: Discovery batres [address] [place] [address] 1, [place] [id number] , Ph. Results Test Description Test Time Test Comments Results Result Comments Source Transthoracic echo (TTE) 2022-08-13 22:32:11 Test Item Value Reference Range Interpretation Comme nts Height (test code = 4673922716) in Weight (test code = 3790495838) lbs Systolic BP (test code = 5961654064) mmHg Diastolic BP (test code = 0116298532) mmHg Heart Rate (test code = 9848225130) bpm BSA (test code = 1651986088) 2.06 m2 Ao root diam (test code = 4525542962) 4.10 cm Aortic root (test code = 0950161677) 4.1 cm Ao root annulus (test code = 4.1 cm 3535242211) LVOT diameter (test code = 2746943970) 2.13 cm LVOT area (test code = 0572254278) 3.60 cm2 LA size (test code = 5716761857) 2.7 cm LAV(MOD-sp4) (test code = 9170724773) 46.70 mL E wave decelartion time (test code = 0.17 s 9576111725) MV stenosis pressure 1/2 time (test 51.2 ms code = 8321658885) MV Peak A Bobby (test code = 0359699335) 65.7 cm/s MV Peak E Bobby (test code = 0228217332) 52.5 cm/s E/A ratio (test code = 9195245185) ratio MV Prop V (test code = 0832747380) 58.90 cm/s MV E/e' septal (test code = 8.6 cm/s 9095546644) Tapse (test code = 4069499846) 2.07 cm LVOT stroke volume (test code = 56.50 cm3 0858871414) LVOT peak bobby (test code = 1002916562) 83.0 cm/s LVOT mn grad (test code = 6822240138) mmHg AV LVOT peak gradient (test code = mmHg 3131390767) LVOT peak VTI (test code = 4784564851) 15.9 cm LV V1 mean (test code = 8263606927) 57.80 cm/s Aortic valve mean velocity (test code 86.0 cm/s = 6160374229) Ao peak bobby (test code = 7356764106) 113.0 cm/s Ao VTI (test code = 1212272041) 21.8 cm AV area by cont VTI (test code = 2.6 cm2 8818097721) AV area peak bobby (test code = 2.6 cm2 0069942662) Ao max PG (test code = 6939988759) 5.10 mm[Hg] AV peak gradient (test code = mmHg 6888018450) AV valve area (test code = 7614936268) 2.60 cm2 AV mean gradient (test code = mmHg 8292488560) LVIDD (test code = 7243034942) 4.80 cm Left Ventricular End Diastolic Volume 109.8 mL by Teichholz Method (test code = 3877721) IVS (test code = 4692072470) 1.03 cm Interventricular Septum Diastolic 1.03 cm Thickness by 2D (test code = 4682276) LVPWD (test code = 0563704101) 1.04 cm PW (test code = 4131764823) 1.04 cm 0.6-1.1 EF(Teich) (test code = 7277894683) 64.10 % LVIDS (test code = 5411308708) 3.20 cm Left Ventricular End Systolic Volume 39.4 mL by Teichholz Method (test code = 7208063) FS (test code = 1482612875) 35 % EF - 2D (test code = 77028514) 64.10 % Radiology Study observation (narrative) (test code = 54497-0) SOFIYA (test code = SOFIYA) ?Left?Ventricle: Left [...] mL of Lumason ultrasound enhancing agent used. [facility] GLUCOSE (AUTOMATED)2022-08-13 18:19:00 Test Item Value Reference Range Interpretation Comments POCT GLU (test code = 5530464678) 196 mg/dL 70-110 H Lab Interpretation (test code = Abnormal 98988-1) [facility] GLUCOSE (AUTOMATED)2022-08-13 13:59:31 Test Item Value Reference Range Interpretation Comments POCT GLU (test code = 4006882396) 146 mg/dL 70-110 H Lab Interpretation (test code = Abnormal 58307-7) [facility] GLUCOSE (AUTOMATED)2022-08-13 01:25:38 Test Item Value Reference Range Interpretation Comments POCT GLU (test code = 3397336684) 102 mg/dL 70-110 Lab Interpretation (test code = Normal 05239-6) [id number]37 Test Item Value Reference Interpretation Comments Range TROPONIN I (test 0.004 ng/mL See_Comment [Automated code = 4052290010) message] The system which generated this result [...] biotin. Lab Interpretation Normal (test code = [id number]) [facility] [id number] 19:07:00 Test Item Value Reference Range Interpretation Comments BUN (test code = BUN) 18 04-17 [place] 333171-12-29 19:07:00 Test Item Value Reference Range Interpretation Comments Creatinine Lvl (test code = Creatinine 1.44 0.50-1.40 Lvl) [place] 333171-12-29 19:07:00 Test Item Value Reference Range Interpretation Comments Sodium Lvl (test code = Sodium Lvl) 132 135-145 [place] 333171-12-29 19:07:00 Test Item Value Reference Range Interpretation Comments Potassium Lvl (test code = Potassium 4.8 3.5-5.1 Lvl) [place] 333171-12-29 19:07:00 Test Item Value Reference Range Interpretation Comments Chloride Lvl (test code = Chloride Lvl) 99 95-109 [place] 333171-12-29 19:07:00 Test Item Value Reference Range Interpretation Comments CO2 (test code = CO2) 27 24-32 [place] 333171-12-29 19:07:00 Test Item Value Reference Range Interpretation Comments Calcium Lvl (test code = Calcium Lvl) 9.7 8.5-10.5 [place] 333171-12-29 19:07:00 Test Item Value Reference Range Interpretation Comments AGAP (test code = AGAP) 10.8 10.0-20.0 [place] 333171-12-29 19:07:00 Test Item Value Reference Range Interpretation Comments eGFR (test code = eGFR) 52 [place] 963621-12-29 19:07:00 Test Item Value Reference Range Interpretation Comments Segs (test code = Segs) 57.5 45.0-75.0 [place] 963621-12-29 19:07:00 Test Item Value Reference Range Interpretation Comments Lymphocytes (test code = Lymphocytes) 28.0 20.0-40.0 [place] 963621-12-29 19:07:00 Test Item Value Reference Range Interpretation Comments Monocytes (test code = Monocytes) 9.6 2.0-12.0 [place] 963621-12-29 19:07:00 Test Item Value Reference Range Interpretation Comments Eosinophils (test code = 4.4 See_Comment [A utomated message] The Eosinophils) system which ge nerated this result tra nsmitted reference range : <=4.0. The reference r glenn was not used to int erpret this result as normal/abnormal . [facility]EmyxvpyYSPWUMZPAM5121-55-67 19:07:00 Test Item Value Reference Range Interpretation Comments Basophils (test code = 0.5 See_Comment [Aut omated message] The Basophils) system which ge nerated this result tra nsmitted reference range : <=1.0. The reference r glenn was not used to int erpret this result as normal/abnormal . [facility] ResourcesDdxnuzxASJDGRZWUC7367-98-19 19:07:00 Test Item Value Reference Range Interpretation Comments Neutrophils # (test code = Neutrophils 3.3 1.5-8.1 #) [facility] ResourcesHltayubJGFJHDESAE0314-27-52 19:07:00 Test Item Value Reference Range Interpretation Comments Lymphocytes # (test code = Lymphocytes 1.6 1.0-5.5 #) [facility] ResourcesPxernseALHQFWJSWF7686-43-03 19:07:00 Test Item Value Reference Range Interpretation Comments Monocytes # (test code 0.5 See_Comment [Aut omated message] The = Monocytes #) system which generated this result tra nsmitted reference range : <=0.8. The reference r glenn was not used to int erpret this result as normal/abnormal . [facility] ResourcesAxkoeczMJRCCSGRXI7969-85-77 19:07:00 Test Item Value Reference Range Interpretation Comments Eosinophils # (test code 0.2 See_Comment [A utomated message] The = Eosinophils #) system whic h generated this result tra nsmitted reference range : <=0.5. The reference r glenn was not used to int erpret this result as normal/abnormal . [facility] ResourcesLzrgnhpYDMWBMWXLM8240-88-05 19:07:00 Test Item Value Reference Range Interpretation Comments WBC (test code = WBC) 5.7 3.7-10.4 [place] 963621-12-29 19:07:00 Test Item Value Reference Range Interpretation Comments RBC (test code = RBC) 4.95 4.70-6.10 [facility] ResourcesQgjzqyuMNQNMIUBFD4195-03-42 19:07:00 Test Item Value Reference Range Interpretation Comments Hgb (test code = Hgb) 14.1 14.0-18.0 [facility] ResourcesFgpoeaoZAVSNKYOGW2461-40-48 19:07:00 Test Item Value Reference Range Interpretation Comments Hct (test code = Hct) 42.2 42.0-54.0 [facility]SvcevwoLZWKMQQVLZ9973-68-24 19:07:00 Test Item Value Reference Range Interpretation Comments MCV (test code = MCV) 85.3 80.0-94.0 [facility]woodLblcppnYTOAQSCFOG8625-30-58 19:07:00 Test Item Value Reference Range Interpretation Comments MCH (test code = MCH) 28.6 pg 27.0-31.0 [facility]woodGpbvcfrXYGLFPXXJU9621-65-27 19:07:00 Test Item Value Reference Range Interpretation Comments MCHC (test code = MCHC) 33.5 32.0-36.0 [facility]am[facility]axMSIXFXQRRO7214-73-07 19:07:00 Test Item Value Reference Range Interpretation Comments RDW (test code = RDW) 14.7 11.5-14.5 [facility]woodMzolxzgHHAKPXUIGZ9868-92-80 19:07:00 Test Item Value Reference Range Interpretation Comments Platelet (test code = Platelet) 219 133-450 [facility]MukrctgBIETUMAXUH9510-21-48 19:07:00 Test Item Value Reference Range Interpretation Comments MPV (test code = MPV) 8.2 7.4-10.4 [facility] HVFPNAWGD8740-96-05 19:07:00 Test Item Value Reference Range Interpretation Comments Hgb A1C (test code = Hgb A1C) 6.4 [facility] QQSDU2692-37-12 19:07:00 Test Item Value Reference Range Interpretation Comments Glucose Lvl (test code = Glucose Lvl) 153 70-99 [facility] [id number] 19:07:00 Test Item Value Reference Range Interpretation Comments BUN (test code = BUN) 18 04-17 [facility] [id number] 19:07:00 Test Item Value Reference Range Interpretation Comments Glucose Lvl (test code = Glucose Lvl) 153 70-99 [facility] WOMGK7179-15-59 19:07:00 Test Item Value Reference Range Interpretation Comments BUN (test code = BUN) 18 04-17 [facility] [id number] 19:07:00 Test Item Value Reference Range Interpretation Comments Creatinine Lvl (test code = Creatinine 1.44 0.50-1.40 Lvl) [facility] FWUQR2218-00-30 19:07:00 Test Item Value Reference Range Interpretation Comments Sodium Lvl (test code = Sodium Lvl) 132 135-145 [facility]2021-12-29 19:07:00 Test Item Value Reference Range Interpretation Comments Creatinine Lvl (test code = Creatinine 1.44 0.50-1.40 Lvl) [facility]2021-12-29 19:07:00 Test Item Value Reference Range Interpretation Comments Potassium Lvl (test code = Potassium 4.8 3.5-5.1 Lvl) [facility]2021-12-29 19:07:00 Test Item Value Reference Range Interpretation Comments Chloride Lvl (test code = Chloride Lvl) 99 95-109 [facility]2021-12-29 19:07:00 Test Item Value Reference Range Interpretation Comments CO2 (test code = CO2) 27 24-32 [facility]2021-12-29 19:07:00 Test Item Value Reference Range Interpretation Comments Calcium Lvl (test code = Calcium Lvl) 9.7 8.5-10.5 [facility]2021-12-29 19:07:00 Test Item Value Reference Range Interpretation Comments AGAP (test code = AGAP) 10.8 10.0-20.0 [facility]2021-12-29 19:07:00 Test Item Value Reference Range Interpretation Comments eGFR (test code = eGFR) 52 [facility] ResourcesAgybfvrXKZOEEQXKP2474-42-02 19:07:00 Test Item Value Reference Range Interpretation Comments Segs (test code = Segs) 57.5 45.0-75.0 [facility] ResourcesKraotfyUKMLPWZYUO5315-24-24 19:07:00 Test Item Value Reference Range Interpretation Comments Lymphocytes (test code = Lymphocytes) 28.0 20.0-40.0 [place] 963621-12-29 19:07:00 Test Item Value Reference Range Interpretation Comments Monocytes (test code = Monocytes) 9.6 2.0-12.0 [place] 963621-12-29 19:07:00 Test Item Value Reference Range Interpretation Comments Eosinophils (test code = 4.4 See_Comment [A utomated message] The Eosinophils) system which ge nerated this result tra nsmitted reference range : <=4.0. The reference r glenn was not used to int erpret this result as normal/abnormal . [place] [address]-12-29 19:07:00 Test Item Value Reference Range Interpretation Comments Sodium Lvl (test code = Sodium Lvl) 132 135-145 [facility] ResourcesKhxhoooIDJIVURCLD9854-36-48 19:07:00 Test Item Value Reference Range Interpretation Comments Basophils (test code = 0.5 See_Comment [Aut omated message] The Basophils) system which ge nerated this result tra nsmitted reference range : <=1.0. The reference r glenn was not used to int erpret this result as normal/abnormal . [facility] ResourcesHuhqhrzWHBZVPVQBH5276-45-59 19:07:00 Test Item Value Reference Range Interpretation Comments Neutrophils # (test code = Neutrophils 3.3 1.5-8.1 #) [place] 963621-12-29 19:07:00 Test Item Value Reference Range Interpretation Comments Lymphocytes # (test code = Lymphocytes 1.6 1.0-5.5 #) [place] 963621-12-29 19:07:00 Test Item Value Reference Range Interpretation Comments Monocytes # (test code 0.5 See_Comment [Aut omated message] The = Monocytes #) system which generated this result tra nsmitted reference range : <=0.8. The reference r glenn was not used to int erpret this result as normal/abnormal . [facility] ResourcesHyjojiqWMJFHFWGFT4992-90-07 19:07:00 Test Item Value Reference Range Interpretation Comments Eosinophils # (test code 0.2 See_Comment [A utomated message] The = Eosinophils #) system whic h generated this result tra nsmitted reference range : <=0.5. The reference r glenn was not used to int erpret this result as normal/abnormal . [facility] ResourcesJowqdacMCVGPOTQQJ4129-22-38 19:07:00 Test Item Value Reference Range Interpretation Comments WBC (test code = WBC) 5.7 3.7-10.4 [place] 963621-12-29 19:07:00 Test Item Value Reference Range Interpretation Comments RBC (test code = RBC) 4.95 4.70-6.10 [place] 963621-12-29 19:07:00 Test Item Value Reference Range Interpretation Comments Hgb (test code = Hgb) 14.1 14.0-18.0 [facility] ResourcesBchioxxAPGDJHLPBA4208-63-85 19:07:00 Test Item Value Reference Range Interpretation Comments Hct (test code = Hct) 42.2 42.0-54.0 [facility]wh[facility]WKYJXCYKY1781-89-36 19:07:00 Test Item Value Reference Range Interpretation Comments MCV (test code = MCV) 85.3 80.0-94.0 [facility] [id number] 19:07:00 Test Item Value Reference Range Interpretation Comments Potassium Lvl (test code = Potassium 4.8 3.5-5.1 Lvl) [facility]GtvbfcfEVFKZEIDAZ2419-22-01 19:07:00 Test Item Value Reference Range Interpretation Comments MCH (test code = MCH) 28.6 pg 27.0-31.0 [facility]woodAnzxismPIYSDJLDEC0651-13-82 19:07:00 Test Item Value Reference Range Interpretation Comments MCHC (test code = MCHC) 33.5 32.0-36.0 [facility]AtkcevjNYTSXSXWSB6215-23-97 19:07:00 Test Item Value Reference Range Interpretation Comments RDW (test code = RDW) 14.7 11.5-14.5 [facility]woodPtwtuagHMKXSDZEPX8023-41-38 19:07:00 Test Item Value Reference Range Interpretation Comments Platelet (test code = Platelet) 219 133-450 [facility]woodXbkfnqySOIWEGQJSQ6996-52-31 19:07:00 Test Item Value Reference Range Interpretation Comments MPV (test code = MPV) 8.2 7.4-10.4 [facility] VLDBTTTYR6140-13-46 19:07:00 Test Item Value Reference Range Interpretation Comments Hgb A1C (test code = Hgb A1C) 6.4 [facility] KingwoodAditive [id number] 19:07:00 Test Item Value Reference Range Interpretation Comments Chloride Lvl (test code = Chloride Lvl) 99 95-109 [facility] RJRML9263-26-18 19:07:00 Test Item Value Reference Range Interpretation Comments CO2 (test code = CO2) 27 24-32 [facility]woodCHE[facility] [id number] 19:07:00 Test Item Value Reference Range Interpretation Comments Calcium Lvl (test code = Calcium Lvl) 9.7 8.5-10.5 [facility] [id number] 19:07:00 Test Item Value Reference Range Interpretation Comments AGAP (test code = AGAP) 10.8 10.0-20.0 [facility]2021-12-29 19:07:00 Test Item Value Reference Range Interpretation Comments eGFR (test code = eGFR) 52 [facility] ResourcesGfkfpcxCSIJMIGTUU3724-12-03 19:07:00 Test Item Value Reference Range Interpretation Comments Segs (test code = Segs) 57.5 45.0-75.0 [place] 963621-12-29 19:07:00 Test Item Value Reference Range Interpretation Comments Lymphocytes (test code = Lymphocytes) 28.0 20.0-40.0 [place] 963621-12-29 19:07:00 Test Item Value Reference Range Interpretation Comments Monocytes (test code = Monocytes) 9.6 2.0-12.0 [place] 963621-12-29 19:07:00 Test Item Value Reference Range Interpretation Comments Eosinophils (test code = 4.4 See_Comment [A utomated message] The Eosinophils) system which ge nerated this result tra nsmitted reference range : <=4.0. The reference r glenn was not used to int erpret this result as normal/abnormal . [place] 963621-12-29 19:07:00 Test Item Value Reference Range Interpretation Comments Basophils (test code = 0.5 See_Comment [Aut omated message] The Basophils) system which ge nerated this result tra nsmitted reference range : <=1.0. The reference r glenn was not used to int erpret this result as normal/abnormal . [place] 963621-12-29 19:07:00 Test Item Value Reference Range Interpretation Comments Neutrophils # (test code = Neutrophils 3.3 1.5-8.1 #) [place] 963621-12-29 19:07:00 Test Item Value Reference Range Interpretation Comments Lymphocytes # (test code = Lymphocytes 1.6 1.0-5.5 #) [place] [address]-12-29 19:07:00 Test Item Value Reference Range Interpretation Comments Monocytes # (test code 0.5 See_Comment [Aut omated message] The = Monocytes #) system which generated this result tra nsmitted reference range : <=0.8. The reference r glenn was not used to int erpret this result as normal/abnormal . [place] 963621-12-29 19:07:00 Test Item Value Reference Range Interpretation Comments Eosinophils # (test code 0.2 See_Comment [A utomated message] The = Eosinophils #) system [employer] h generated this result tra nsmitted reference range : <=0.5. The reference r glenn was not used to int erpret this result as normal/abnormal . [facility]AdsyabvSJVBOLWLHC4489-19-38 19:07:00 Test Item Value Reference Range Interpretation Comments WBC (test code = WBC) 5.7 3.7-10.4 [facility] HospitalDkoelxtDTRZVQCOCU4217-81-23 19:07:00 Test Item Value Reference Range Interpretation Comments RBC (test code = RBC) 4.95 4.70-6.10 [facility] HospitalOtvqbtnJXEETCWVTE7935-50-21 19:07:00 Test Item Value Reference Range Interpretation Comments Hgb (test code = Hgb) 14.1 14.0-18.0 [facility] HospitalUntgjlpBNOKAKZGPB7310-44-00 19:07:00 Test Item Value Reference Range Interpretation Comments Hct (test code = Hct) 42.2 42.0-54.0 [facility]woodPaoxebzTXSNHCYQLB0607-81-60 19:07:00 Test Item Value Reference Range Interpretation Comments MCV (test code = MCV) 85.3 80.0-94.0 [facility] HospitalZopkzfqWQLIPIISQY7863-56-21 19:07:00 Test Item Value Reference Range Interpretation Comments MCH (test code = MCH) 28.6 pg 27.0-31.0 [facility] HospitalBzqafejYCQIUBKDRD8621-95-41 19:07:00 Test Item Value Reference Range Interpretation Comments MCHC (test code = MCHC) 33.5 32.0-36.0 [facility] HospitalDebhdofXLBOTOSYPM3328-72-34 19:07:00 Test Item Value Reference Range Interpretation Comments RDW (test code = RDW) 14.7 11.5-14.5 [facility] HospitalZzzounlNTRVABWZDS6791-71-67 19:07:00 Test Item Value Reference Range Interpretation Comments Platelet (test code = Platelet) 219 133-450 [facility] HospitalJqvddtbLNPRJOAIQX0278-72-25 19:07:00 Test Item Value Reference Range Interpretation Comments MPV (test code = MPV) 8.2 7.4-10.4 [facility] NKAMMRDHC5026-24-80 19:07:00 Test Item Value Reference Range Interpretation Comments Hgb A1C (test code = Hgb A1C) 6.4 [facility]2021-12-29 19:07:00 Test Item Value Reference Range Interpretation Comments Glucose Lvl (test code = Glucose Lvl) 153 70-99 [facility]2021-12-29 19:07:00 Test Item Value Reference Range Interpretation Comments BUN (test code = BUN) 18 7-22 [place] 333171-12-29 19:07:00 Test Item Value Reference Range Interpretation Comments Creatinine Lvl (test code = Creatinine 1.44 0.50-1.40 Lvl) [place] 333171-12-29 19:07:00 Test Item Value Reference Range Interpretation Comments Sodium Lvl (test code = Sodium Lvl) 132 135-145 [facility]2021-12-29 19:07:00 Test Item Value Reference Range Interpretation Comments Potassium Lvl (test code = Potassium 4.8 3.5-5.1 Lvl) [facility]2021-12-29 19:07:00 Test Item Value Reference Range Interpretation Comments Chloride Lvl (test code = Chloride Lvl) 99 95-109 [facility]2021-12-29 19:07:00 Test Item Value Reference Range Interpretation Comments CO2 (test code = CO2) 27 24-32 [place] 333171-12-29 19:07:00 Test Item Value Reference Range Interpretation Comments Calcium Lvl (test code = Calcium Lvl) 9.7 8.5-10.5 [place] 333171-12-29 19:07:00 Test Item Value Reference Range Interpretation Comments AGAP (test code = AGAP) 10.8 10.0-20.0 [place] 333171-12-29 19:07:00 Test Item Value Reference Range Interpretation Comments eGFR (test code = eGFR) 52 [facility] ResourcesQdtzinpIOBPSIXKZX9228-75-10 19:07:00 Test Item Value Reference Range Interpretation Comments Segs (test code = Segs) 57.5 45.0-75.0 [place] 963621-12-29 19:07:00 Test Item Value Reference Range Interpretation Comments Lymphocytes (test code = Lymphocytes) 28.0 20.0-40.0 [place] 963621-12-29 19:07:00 Test Item Value Reference Range Interpretation Comments Monocytes (test code = Monocytes) 9.6 2.0-12.0 [facility]KaowmttVBOMPEJHRM7936-43-73 19:07:00 Test Item Value Reference Range Interpretation Comments Eosinophils (test code = 4.4 See_Comment [A utomated message] The Eosinophils) system which ge nerated this result tra nsmitted reference range : <=4.0. The reference r glenn was not used to int erpret this result as normal/abnormal . [facility] ResourcesWemgwpeUTNMUNEWRP3653-23-06 19:07:00 Test Item Value Reference Range Interpretation Comments Basophils (test code = 0.5 See_Comment [Aut omated message] The Basophils) system which ge nerated this result tra nsmitted reference range : <=1.0. The reference r glenn was not used to int erpret this result as normal/abnormal . [facility] ResourcesLgozjloCSTCIZWAJR9844-03-43 19:07:00 Test Item Value Reference Range Interpretation Comments Neutrophils # (test code = Neutrophils 3.3 1.5-8.1 #) [facility] ResourcesMrrahrlEGJQZHDNBG5655-75-09 19:07:00 Test Item Value Reference Range Interpretation Comments Lymphocytes # (test code = Lymphocytes 1.6 1.0-5.5 #) [facility] ResourcesBeqrjohSOXGAPFFFT0782-21-22 19:07:00 Test Item Value Reference Range Interpretation Comments Monocytes # (test code 0.5 See_Comment [Aut omated message] The = Monocytes #) system which generated this result tra nsmitted reference range : <=0.8. The reference r glenn was not used to int erpret this result as normal/abnormal . [facility] ResourcesNbcehpsCQLIRARTMJ8159-96-17 19:07:00 Test Item Value Reference Range Interpretation Comments Eosinophils # (test code 0.2 See_Comment [A utomated message] The = Eosinophils #) system whic h generated this result tra nsmitted reference range : <=0.5. The reference r glenn was not used to int erpret this result as normal/abnormal . [facility] ResourcesEsikfhkPOEUWVJQMM9241-69-15 19:07:00 Test Item Value Reference Range Interpretation Comments WBC (test code = WBC) 5.7 3.7-10.4 [facility] ResourcesMdtdoqlQJERWRHQQI7871-04-89 19:07:00 Test Item Value Reference Range Interpretation Comments RBC (test code = RBC) 4.95 4.70-6.10 [facility]woodOlcwlirRAVQREJSOX1367-77-24 19:07:00 Test Item Value Reference Range Interpretation Comments Hgb (test code = Hgb) 14.1 14.0-18.0 [facility]woodFcetkxwPYNTCOWLAM8048-93-65 19:07:00 Test Item Value Reference Range Interpretation Comments Hct (test code = Hct) 42.2 42.0-54.0 [facility]woodRhvdrovOHGTDGQFHB9302-13-67 19:07:00 Test Item Value Reference Range Interpretation Comments MCV (test code = MCV) 85.3 80.0-94.0 [facility]woodHnceyqbNPIBPFWYPI5919-47-51 19:07:00 Test Item Value Reference Range Interpretation Comments MCH (test code = MCH) 28.6 pg 27.0-31.0 [facility]woodGjkniikRCGRQSKVQX7704-62-92 19:07:00 Test Item Value Reference Range Interpretation Comments MCHC (test code = MCHC) 33.5 32.0-36.0 [facility] KingwoodRpvjabkKCHLMOBGUT1162-43-63 19:07:00 Test Item Value Reference Range Interpretation Comments RDW (test code = RDW) 14.7 11.5-14.5 [facility]woodKnhozrvWBPUCTUFRI5781-05-58 19:07:00 Test Item Value Reference Range Interpretation Comments Platelet (test code = Platelet) 219 133-450 [facility] KingwoodTnzmtkzBTHLOYBIVK1246-81-28 19:07:00 Test Item Value Reference Range Interpretation Comments MPV (test code = MPV) 8.2 7.4-10.4 [facility]woodSPECIAL EVVRBUVMZ2630-74-65 19:07:00 Test Item Value Reference Range Interpretation Comments Hgb A1C (test code = Hgb A1C) 6.4 [facility] KingwoodCHEM ZAKZG0418-30-52 19:07:00 Test Item Value Reference Range Interpretation Comments Glucose Lvl (test code = Glucose Lvl) 153 70-99 [facility] KingwoodSARS-COV 2 AntigenSARS-COV 2 Antigen
[2023-02-07 19:29] LABS: Absolute Lymphocytes (CBC) 2.5 K/uL (0.7-4.9); Hematocrit 44.1 % (39.6-49.0); Lymphocytes % 27.6 % (15.3-44.8); MCV 84.4 fL (80-100); MPV 7.9 fL (7.6-11.3); RBC Red Blood Cell Count 5.23 M/uL (4.33-5.43)
[2023-02-07] MEDS ORDERED: MORPHINE 4 MG/ML SYR ONE (19:37)
[2023-02-07] MEDS ORDERED: ONDANSETRON 4 MG/2 ML VIAL ONE (19:37)
[2023-02-07] MEDS ORDERED: LORazepam 2 MG/ML VIAL ONE (19:37)
[2023-02-07 20:12] LABS: Albumin 3.7 g/dL (3.4-5.0); Bilirubin Direct 0.1 mg/dL (0-0.2); Bilirubin Indirect, Calculated 0.3 mg/dL (0.2-0.8); Bilirubin Total 0.4 mg/dL (0.2-1.0); Potassium 3.7 mEq/L (3.5-5.1); Protein, Total 7.7 g/dL (6.4-8.2); Troponin High Sensitivity 4.9 pg/mL (<58.9)
[2023-02-07] MEDS ORDERED: ASPIRIN 81 MG CHEWABLE TABLET ONE (20:23)
[2023-02-07] MEDS ORDERED: methocarbamoL 500 MG TAB ONE (20:25)
--- NOTE | 2023-02-07 20:43 | RAD REPORT ---
EXAM DESCRIPTION: RAD - Chest Single View - 02/07/2023 8:35 pm CLINICAL HISTORY: CHEST PAIN Chest pain. COMPARISON: Chest Single View dated 02/01/2023; Chest Single View dated 11/30/2022; Chest Single View da kaushik 11/25/2022; Chest Pa And Lat (2 Views) dated 06/15/2022 FINDINGS: Portable technique limits examination quality. The lungs are grossly clear. The heart is normal in size. No displaced fractures. IMPRESSION: No acute intrathoracic process suspected.
--- NOTE | 2023-02-07 21:12 | RAD REPORT ---
EXAM DESCRIPTION: CT - Head Brain Wo Cont - 02/07/2023 9:04 pm CLINICAL HISTORY: double vision Headache, drowsiness COMPARISON: Head Brain Wo Cont dated 01/06/2022; Head angio dated 01/06/2022Head Brain Wo Cont dated ; Head angio dated 01/06/2022 TECHNIQUE: All CT scans are performed using dose optimization technique as appropriate and may inclu de automated exposure control or mA/KV adjustment according to patient size. FINDINGS: No intracranial hemorrhage, hydrocephalus or extra-axial fluid collection.No areas of brai n edema or evidence of midline shift. Heavy vertebral atherosclerosis. The paranasal sinuses and mastoids are clear. The calvarium is intact. IMPRESSION: No acute intracranial abnormality.
[2023-02-07 21:28] LABS: Thyroid Stimulating Hormone 2.49 uIU/mL (0.358-3.740)
--- NOTE | 2023-02-07 23:32 | ER ---
Nurse's Notes [facility] Name: Moshe Ewing Age: 62 yrs Sex: Male : 1960 Arrival Date: 02/07/2023 Time: 18:57 Bed 7 Private MD: Diagnosis: Acute exacerbation of chronic neck pain, acute panic attack, noncardiac chest pain, hypertensive urgency, anxiety disorder Presentation: 02/07 19:03 Chief complaint: EMS states: chest pain, n/v, vertigo, htn 160/100, pain started eh3 1730ish, EMS EKG showed right bundle branch block, EMS gave nitro tab x3 and 4mg Zofran, pain only slightly decreased, actively vomiting. Coronavirus screen: Vaccine status: Patient reports receiving the 2nd dose of the covid vaccine. Ebola Screen: No symptoms or risks identified at this time. 19:03 Method Of Arrival: EMS: [facility] 19:03 Acuity: MYRIAM 2 [facility] 19:03 Onset of symptoms was February 07, 2023. [facility] 19:23 Initial Sepsis Screen: Does the patient meet any 2 criteria? No. Patient's initial 3 sepsis screen is negative. Does the patient have a suspected source of infection? No. Patient's initial sepsis screen is negative. Risk Assessment: Do you want to hurt yourself or someone else? Patient reports no desire to harm self or others. Triage Assessment: 19:03 General: Appears distressed, uncomfortable, Behavior is cooperative, anxious. Pain: eh3 Complains of pain in chest. EENT: No signs and/or symptoms were reported regarding the EENT system. Neuro: Level of Consciousness is awake, alert, obeys commands, Oriented to person, place, time, situation. Neuro: Reports diplopia, headache. Cardiovascular: Reports chest pain, diaphoresis, nausea, vomiting, Capillary refill < 3 seconds. Respiratory: Airway is patent Trachea midline Respiratory effort is even, unlabored, Respiratory pattern is regular, symmetrical. GI: Abdomen is round non-distended. : No signs and/or symptoms were reported regarding the genitourinary system. Derm: No signs and/or symptoms reported regarding the dermatologic system. Musculoskeletal: No signs and/or symptoms reported regarding the musculoskeletal system. Historical: - Allergies: 19:07 amlodipine; eh3 19:07 lidocaine patch; eh3 - PMHx: 19:03 Diabetes - NIDDM; DVT; Hypercholesterolemia; Hypertension; Hypothyroidism; eh3 - PSHx: 19:03 back sx; cadriac stent; Cholecystectomy; foot/shoulder SX; L hand SX with plates eh3 placed; R BKA; stimulator R back for legs; - Immunization history:: Adult Immunizations up to date. - Social history:: Smoking status: unknown. - Family history:: not pertinent. Screenin:03 [facility] ED Fall Risk Assessment (Adult) Score/Fall Risk Level 0 - 2 = Low Risk. Abuse eh3 screen: Denies threats or abuse. Denies injuries from another. Nutritional screening: No deficits noted. Tuberculosis screening: No symptoms or risk factors identified. Assessment: 19:03 Reassessment: No changes from previously documented assessment. See triage assessment. eh3 Pain: Pain radiates to left arm Pain began suddenly, 1 hour ago. 20:00 Reassessment: Patient and/or family updated on plan of care and expected duration. Pain eh3 level reassessed. Patient is alert, oriented x 3, equal unlabored respirations, skin warm/dry/pink. 21:00 Reassessment: Patient appears in no apparent distress at this time. Patient and/or eh3 family updated on plan of care and expected duration. Pain level reassessed. Patient is alert, oriented x 3, equal unlabored respirations, skin warm/dry/pink. 22:19 General: Appears in no apparent distress. comfortable, Behavior is calm, cooperative. lg3 Pain: Complains of pain in chest Pain radiates to left arm Pain currently is 4 out of 10 on a pain scale. Pain began pt states pain is consistent and at current baseline. Neuro: No deficits noted. [place] Agitation-Sedation Scale (RASS): 0 - Alert and Calm Level of Consciousness is awake, alert, obeys commands, Oriented to person, place, time, situation. Cardiovascular: No deficits noted. Capillary refill < 3 seconds Clubbing of nail beds is absent JVD is absent Patient's skin is warm and dry. Respiratory: No deficits noted. Airway is patent Respiratory effort is even, unlabored, Respiratory pattern is regular, symmetrical. GI: No deficits noted. No signs and/or symptoms were reported involving the gastrointestinal system. Abdomen is round non-distended, obese. : No deficits noted. No signs and/or symptoms were reported regarding the genitourinary system. EENT: No deficits noted. No signs and/or symptoms were reported regarding the EENT system. Derm: No deficits noted. No signs and/or symptoms reported regarding the dermatologic system. Skin is intact, is healthy with good turgor, Skin is dry, Skin is normal, Skin temperature is warm. Musculoskeletal: No deficits noted. Amputation of right BKA. Circulation, motion, and sensation intact. Range of motion: intact in all extremities. 23:08 Reassessment: Patient appears in no apparent distress at this time. No changes from 3 previously documented assessment. Patient and/or family updated on plan of care and expected duration. Pain level reassessed. Patient is alert, oriented x 3, equal unlabored respirations, skin warm/dry/pink. Vital Signs: 19:00 BP 200 / 110; Pulse 130; Resp 21; Pulse Ox 100% on R/A; eh3 19:03 BP 129 / 108; Pulse 106; Resp 22; Temp 98.6(O); Pulse Ox 97% on R/A; Weight 81.65 kg; eh3 Height 6 ft. 0 in. ; Pain 10/10; 19:30 BP 182 / 109; Pulse 93; Resp 13; Pulse Ox 100% on R/A; eh3 20:00 BP 128 / 92; Pulse 98; Resp 22; Pulse Ox 99% on 1 lpm NC; eh3 20:30 BP 129 / 89; Pulse 100; Resp 16; Pulse Ox 97% on 1 lpm NC; eh3 21:00 BP 140 / 86; Pulse 95; Resp 18; Pulse Ox 98% on 1 lpm NC; eh3 22:19 BP 134 / 90; Pulse 87; Resp 17 S; Pulse Ox 96% on 1 lpm NC; lg3 23:09 BP 138 / 93; Pulse 80; Pulse Ox 100% on 1 lpm NC; lg3 19:03 Body Mass Index 24.41 (81.65 kg, 182.88 cm) 3 19:03 Pain Scale: Adult eh3 Janak Coma Score: 20:53 Eye Response: spontaneous(4). Motor Response: obeys commands(6). Verbal Response: sp4 oriented(5). Total: 15. NIH Stroke Scale Scores: 20:53 NIHSS Score: 0 sp4 ED Course: 19:03 Patient arrived in ED. eh3 19:03 Maintain EMS IV. Dressing intact. Good blood return noted. Site clean \T\ dry. Gauge \T\ eh 3 site: 20g RAC. Patient maintains SpO2 saturation greater than 95% on room air. 19:03 Arm band placed on. eh3 19:03 Client placed on continuous cardiac and pulse oximetry monitoring. NIBP monitoring eh3 applied. 19:03 Patient has correct armband on for positive identification. Bed in low position. Call eh3 light in reach. Side rails up X2. 19:13 Alejo Barker MD is Attending Physician. kdr 19:15 Noelle Encinas RN is Primary Nurse. eh3 19:23 Attending Physician role handed off by Alejo Barker MD sp4 19:23 Martin Sebastian MD is Attending Physician. sp4 19:24 Triage completed. eh3 20:37 XRAY Chest (1 view) In Process Unspecified. EDMS 21:00 Report given to FANNY Ordonez. eh3 21:04 CT Head Brain wo Cont In Process Unspecified. EDMS 22:17 Troponin High Sensitivity Sent. lg3 23:42 No provider procedures requiring assistance completed. IV discontinued, intact, pf1 bleeding controlled, No redness/swelling at site. Pressure dressing applied. Administered Medications: 19:35 Drug: Ativan IVP 2 mg Route: IVP; Site: right antecubital; eh3 20:59 Follow up: Response: No adverse reaction eh3 19:35 Drug: morphine IVP or IV 4 mg Route: IVP; Infused Over: 4 mins; Site: right antecubital;eh3 20:59 Follow up: Response: No adverse reaction eh3 19:35 Drug: Ondansetron IVP 8 mg Route: IVP; Site: right antecubital; eh3 20:59 Follow up: Response: No adverse reaction eh3 20:45 Drug: Methocarbamol PO 1000 mg Route: PO; eh3 21:45 Follow up: Response: No adverse reaction; Marked relief of symptoms pf1 20:45 Drug: Aspirin PO Chewable Tablet 324 mg Route: PO; eh3 21:45 Follow up: Response: No adverse reaction; Marked relief of symptoms; Pain is decreased pf1 Medication: 23:42 VIS not applicable for this client. pf1 Outcome: 23:32 Discharge ordered by . sp4 23:41 Discharged to home via wheelchair, with family. pf1 23:41 Condition: improved 23:41 Discharge instructions given to patient, Instructed on discharge instructions, follow up and referral plans. Demonstrated understanding of instructions, follow-up care, medications, Prescriptions given X 2. 23:43 Patient left the ED. pf1 NIH Stroke Scale - NIH Stroke Score Date: 02/07/2023 Time: 20:53 Total Score = 0 10. Dysarthria (speech clarity - read or repeat words) - 0(Normal) 11. Extinction and Inattention (visual/tactile/auditory/spatial/personal) - 0(No abnormality) 1a. Level of Consciousness (LOC) - 0(Alert) 1b. Level of Consciousness (LOC) (Month \T\ Age) - 0(Both) 1c. LOC Commands (Open \T\ Closes Eyes/Supervisor Transcribing Operators) - 0(Both) 2. Best Gaze (Lateral Gaze Paresis) - 0(Normal) 3. Visual Field Loss - 0(No visual loss) 4. Facial Palsy - 0(Normal) 5a. Left Arm: Motor (10-second hold) - 0(No drift) 5b. Right Arm: Motor (10-second hold) - 0(No drift) 6a. Left Leg: Motor (5-second hold - always test supine) - 0(No drift) 6b. Right Leg: Motor (5-second hold - always test supine) - 0(No drift) 7. Limb Ataxia (finger/nose \T\ heel/catalan - test with eyes open) - 0(Absent) 8. Sensory Loss (pinprick arms/legs/face) - 0(Normal) 9. Best Language: Aphasia (description/naming/reading) - 0(No aphasia) Initials: sp4 Signatures: Dispatcher [employer] EDAlejo Alexis MD MD [facility] Mery Ng RN RN 3 Noelle Encinas RN RN 3 Rabia Valencia RN RN pf1 Martin Sebastian MD MD sp4 Corrections: (The following items were deleted from the chart) 21:54 21:53 Patient has correct armband on for positive identification. Bed in low eh3 position. Call light in reach. Side rails up X2. eh3 23:09 22:19 BP 134 / 90; Pulse 87bpm; Resp 17bpm; Spontaneous; Pulse Ox 96% RA; lg3 lg3
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
[2023-02-08 00:37] VITALS: TEMP 98.6
[2023-02-08 00:47] VITALS: BP 138/93; O2SAT 100
--- NOTE | 2023-02-08 11:43 | EKG ---
Test Date: 2023-02-07 Test Time: 22:11:58 Attorney Recruiter: KELLY MEASUREMENT RESULTS: Intervals: Rate: 77 NH: 150 QRSD: 148 QT: 404 QTc: 457 [place]: P: 45 NH: 150 QRS: 82 T: 36 INTERPRETIVE STATEMENTS: Normal sinus rhythm Right bundle branch block Abnormal ECG Compared to ECG 02/07/2023 19:11:54 Sinus tachycardia no longer present Electronically Signed On 02-08-23 11:41:28 CDT by Vinny Magallanes
--- NOTE | 2023-02-08 11:43 | EKG ---
Test Date: 2023-02-07 Test Time: 19:11:54 Nurse Outreach Case Manager: SEDRICK MEASUREMENT RESULTS: Intervals: Rate: 101 AL: 148 QRSD: 142 QT: 362 QTc: 469 [place]: P: 72 AL: 148 QRS: 96 T: 47 INTERPRETIVE STATEMENTS: Sinus tachycardia Right bundle branch block Abnormal ECG Compared to ECG 02/01/2023 09:41:12 Sinus bradycardia no longer present Electronically Signed On 02-08-23 11:41:31 CDT by Vinny Magallanes
== END 2023-02-07 23:43 | disposition home or self-care (01) ==
LOC: ER 18:57
DX: R07.89 Other chest pain (principal); I16.0 Hypertensive urgency; F41.0 Panic disorder [episodic paroxysmal anxiety]; F41.9 Anxiety disorder, unspecified; M54.2 Cervicalgia; I10 Essential (primary) hypertension; E11.9 Type 2 diabetes mellitus without complications; E78.00 Pure hypercholesterolemia, unspecified; Z95.818 Presence of other cardiac implants and grafts; Z89.511 Acquired absence of right leg below knee; Z88.5 Allergy status to narcotic agent; Z88.8 Allergy status to other drugs, medicaments and biological substances; Z86.718 Personal history of other venous thrombosis and embolism
CPT/HCPCS: 93005 ×2; 85025; 80048; 36415; 80076; 84443; 84484 ×2; 84439; 83880; 70450; 71045; 96375; 96374; 99285; J2405

== ENCOUNTER 2023-02-12 14:15 | Emergency (ER) | payer OTHER ==
--- OUTSIDE RECORDS SUMMARY | 2023-02-12 14:44 | XMS REPORT | Continuity of Care Document ---
:1960 Author Organization [facility] t Address [address] [place] [address] Care Team Providers Name Role Phone [place], Regina Quiroga Primary Care Physician Maira Oliveira Attending Clinician Unavailable Regina Hodges Attending Clinician Unavailable Jeison Hays Attending Clinician Radiology Attending Clinician Unavailable RADIOLOGY Attending Clinician Unavailable Carolina Rice RN Attending Clinician Unavailable EARL GODDARD Attending Clinician Unavailable Leonora Guzman Attending Clinician Alexandre Montemayor MD Attending Clinician Earl Goddard MD Attending Clinician Doctor Unassigned, Harris Attending Clinician Unavailable Wallace Dotson MD Attending [...] Number Effective Date Expiration Date Janell freitas [facility] DUAL [id number] 2020 COMP HMO D SNP 00:00:00 MEDICAID [place] [id number] 2020 [place] 00:[place]00 [facility] 53 [id number] 2020 Common ADVANTAGE 00:00:00 Spirit - [facility] [id number] [facility] MEDICARE [id number] 2020 COMPLETE CHOICE 00:00:00 HUMANCarmen GOLD PLS [id number] 2019 HMO 00:00:00 MEDICARE PART A [id number] 2004 2019 \T\ B 00:00:00 00:00:00 Problems Condition Condition Condition Status Onset Resolution Last Treating Co mments Source Name Details Category Date Date Treatment Clinician Date Coronary Coronary Disease Active 2021-09 Unive rs artery artery 1-17 ity of disease disease 00:00: [place] involving involving 00 Medi [place] Branch coronary coronary artery of artery of [place] heart heart without without angina angina pectoris pectoris Generalize Generalize Disease Active 2021-09 U nivers d d 1-17 [place] of abdominal abdominal [place] pain pain 00 [place] Coronary Coronary Disease Active 2021-09 Unive rs artery artery 1-17 ity of disease disease 00:00: [place] involving involving 00 Medi [place] Branch coronary coronary artery of artery of [place] heart heart without without angina angina pectoris pectoris Chest pain Chest pain Disease Active 2021-09 U nivers 1-16 ity of 00:00: [place] 00 Medical Branch SPINAL SPINAL Diagnosis Active 2020-092021-09-26 Me madison CORD CORD 11-24 08:25:00 l STIMULATOR STIMULATOR 00:00: He rmann INSERTION INSERTION 00 Active 09/23/2021 [facility] UNK UNK Diagnosis Active 2020-092021-09-24 Mem oria Active 11-24 12:49:00 l 09/23/2021 00:00: Tera leon [address] Other Other Disease Active 2020-09 Univers age-relate age-relate 11-03 it y of d cataract d cataract [place] left of left 00 Medical eye eye Branch RADICULOPA RADICULOP Diagnosis Active 2020-10-15 Alex THY, ATHY, 1 07:21:00 l LUMBAR LUMBAR 00:00: [place] REGION REGION 00 Active 10/04/2020 [facility] Obesity Obesity Disease Active Univers (BMI (BMI [...] Medical Branch Impaired Impaired Problem Active 2023-01-15 [facility] mobility mobility 8- 14:17:10 l (finding) (finding) 00:00: Herm adam Active 00 04/28/2011 Problem 01/15/2023 Manuel Adams [facility] [id number] Essential Problem Comm on hypertensi Spirit on - CHI [facility] [id number] [place] [id number] prostatic Spirit hyperplasi - CHI a with [facility] tract Center symptoms [id number] Other Problem Common secondary Spirit acute gout - CHI of left [facility] [id number] Type 2 Problem Common diabetes Spirit mellitus - [facility], [facility] unspecifie Center d whether usp insulin use [id number] Acquired Problem Comm on hypothyroi Spirit dism [facility] [id number] Frequency Problem Com mon of Spirit micturitio - CHI n [facility] [id number] Mass in Problem Commo n neck [facility] [id number] History of Problem C ommon right Spirit below knee - CHI amputation [facility] [id number] Cervical Problem Com mon osteophyte [facility] [id number] [place] [id number] exam [facility] [id number] Chronic Problem 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 [place] without long-term current use of insulin [id number] Benign Problem Common prostatic Spirit hyperplasi - CHI a without [facility] urinary Medical tract Center symptoms [id number] PAD Problem Common (periphera Spirit l artery - CHI disease) [facility] [id number] Mixed Problem Common hyperlipid Spirit emia - CH[facility] Polyneurop Polyneurop Problem C ommon athy athy Spirit - [facility] Angina Angina Problem Active 2023-01-15 Brodie douglas (disorder) (disorder) 14:17:10 l Active [place] [facility] Diabetes Diabetes Problem Active 2023-01-15 Memoria mellitus mellitus 14:17:10 l (disorder) (disorder) He rmann Active Problem [facility]/2023 [facility] Hyperlipid Hyperlipi Problem Active 2023-01-15 Memoria emia demia 14:17:10 l (disorder) (disorder) He rmann Active Problem 01/15/2023 [facility] Cervical Cervical Problem Active 2023-01-15 Memoria radiculopa radiculopa 14:17:10 l thy thy [place] (disorder) (disorder) Active Problem 01/15/2023 [facility] 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 14:17:10 l s s Michael (disorder) (disorder) Active Problem 01/15/2023 [facility] [place] Submandibu Submandib Problem Active 2023-01-15 Memoria lar ular 14:17:10 l lymphadeno lymphadeno He rmann ryne ryne (disorder) (disorder) Active Problem 01/15/2023 [facility] [place] Hypertensi Hypertens Problem Active 2023-01-15 Memoria ve phi 14:17:10 l disorder, disorder, Herm adam systemic systemic arterial arterial (disorder) (disorder) Active [facility] Pain Pain Problem Active 2023-01-15 Memor ia (finding) (finding) 14:17:10 l Active Michael Problem 01/15/2023 [facility] Hypothyroi Hypothyro Problem Resolve 2021-09-28 Memoria dism idism d 22:42:20 l (disorder) (disorder) He rmann Resolved Problem 09/28/2021 [facility] Raised Raised Problem Active [place] prostate [...] Memori a Medicati Medicati l on on [place] Allergie Allergie s s NO KNOWN Drug Active Univers ALLERGIE Class ity of S [facility] amlodipi amlodipi Active CP, SOB, Comm on ne ne Nausea Spirit - [facility] Social History Social Habit Start Date Stop Date Quantity Comments Source Sex Assigned At Common Sp josee - [facility] History of Common Spirit - Tobacco Use [facility] History SDOH Food 2022-08-14 2022-08-14 1 Univers ity of Worry 00:00:00 00:00:00 [place] [facility] History SDOH Food 2022-08-14 2022-08-14 1 Univers ity of Scarcity 00:00:00 00:00:00 [place] [facility] History SDOH 2022-08-14 2022-08-14 2 University o f Transport Med 00:00:00 00:00:00 [place] Medic al Branch History SDOH 2022-08-14 2022-08-14 2 University o f Transport Non-Med 00:00:00 00:00:00 [facility] edical Branch Alcohol intake 2022-08-13 2022-08-13 0 /d University of 00:00:00 00:00:00 [facility] Exposure to 2022-08-02 2022-08-12 Not sure University SARS-CoV-2 00:00:00 10:42:00 [facility] (event) [place] Tobacco use and 2022-05-19 2022-05-19 Smokeless tobacco Un iversity of exposure 00:00:00 00:00:00 non-user [facility] Social History 2021-09-24 2021-09-24 [facility] 15:29:23 Smoking Status Start Date Stop Date Source Tobacco smoking status [facility] Medications Ordered Filled Start Stop Current Ordering [...] units oral 20:16: = 1 tab, Her rcews tablet 00 PO, Daily, 0 Refill(s) atorvastati 2021-09 Yes 20mg 20 mg, Univ ers n (LIPITOR) 1-18 Oral, QHS, it y of tablet 20 03:00[place] 00 on [facility] 08/13/22 Branch at 2100, Until Discontinu ed sulfur 2021-09- No [id number] 5mL 5 mL, Unive rs hexafluorid 10-13 Intravenou i ty of e microsphr 20:30: 20:30 s, ONCE, 1 [place] (LUMASON) 00 :00 dose, On Medica l injection 5 [facility] Branch mL 08/13/22 at 1430, Routine
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 Medical Branch Levothyroxi 2021-09 Yes Take by Uni vers ne 75 mcg -17 mouth. ity of capsule 16:36: [place] [address] Medical Branch finasteride 2021-09 Yes 5mg Take 5 mg U nivers 5 mg tablet 17 by mouth ity of 16:36: in the [place] [address] morning. Medical Branch losartan 2021-09 Yes 100mg Take 100 Univ ers 100 mg 1-17 mg by ity of tablet 16:36: mouth in [place] 03 the Medical morning. Branch metFORMIN 2021-09 Yes 500mg Take 500 Uni vers 500 mg 1-17 mg by ity of tablet 16:36: mouth in [place] [address] the Medical morning Branch and 500 mg in the evening. Take with meals. lovastatin 2021-09 Yes 20mg Take 20 mg U nivers 20 mg -17 by mouth ity of tablet 16:36: at [place] [address] bedtime. Medical Branch tamsulosin 2021-09 Yes Take by Univ ers (FLOMAX) 1-17 mouth ity of 0.4 mg 24 16:36: daily. [place] hr capsule Medical Branch ergocalcife 2021-09 Yes 2000U Take 2,000 Univers rol, 1-17 Units by ity of vitamin D2, 16:36: mouth. Servando s (VITAMIN D Medical ORAL) Branch aspirin 81 2021-09 Yes 81mg Take 81 mg U nivers mg chewable -17 by mouth ity of tablet 16:36: in the [place] [address] morning. Medical Branch clopidogreL 2021-09 Yes 75mg Take 75 mg Univers (PLAVIX) 75 1-17 by mouth ity of mg tablet 16:36: in the [place] morning. Medical Branch Levothyroxi 2021-09 Yes Take by Uni vers ne 75 mcg 1-17 mouth. ity of capsule 16:36: [place] Medical Branch finasteride 2021-09 Yes 5mg Take 5 mg U nivers 5 mg tablet 1-17 by mouth ity of 16:36: in the [place] morning. Medical Branch losartan 2021-09 Yes 100mg Take 100 Univ ers 100 mg 1-17 mg by ity of tablet 16:36: mouth in [place] [address] the Medical morning. Branch metFORMIN 2021-09 Yes 500mg Take 500 Uni vers 500 mg 1-17 mg by ity of tablet 16:36: mouth in [place] [address] the Medical morning Branch and 500 mg in the evening. Take with meals. lovastatin 2021-09 Yes 20mg Take 20 mg U nivers 20 mg 1-17 by mouth ity of tablet 16:36: at [place] [address] bedtime. Medical Branch tamsulosin 2021-09 Yes Take by Univ ers (FLOMAX) 1-17 mouth ity of 0.4 mg 24 16:36: daily. [place] hr capsule Medical Branch ergocalcife 2021-09 Yes 2000U Take 2,000 Univers rol, 1-17 Units by ity of vitamin D2, 16:36: mouth. Servando s (VITAMIN D Medical ORAL) Branch aspirin 81 2021-09 Yes 81mg Take 81 mg U nivers mg chewable 1-17 by mouth ity of tablet 16:36: in the [place] morning. Medical Branch clopidogreL 2021-09 Yes 75mg Take 75 mg Univers (PLAVIX) 75 1-17 by mouth ity of mg tablet 16:36: in the [place] morning. Medical Branch Levothyroxi 2021-09 Yes Take by Uni vers ne 75 mcg 1-17 mouth. ity of capsule 16:36: [place] Medical Branch finasteride 2021-09 Yes 5mg Take 5 mg U nivers 5 mg tablet 1-17 by mouth ity of 16:36: in the [place] morning. Medical Branch losartan 2021-09 Yes 100mg Take 100 Univ ers 100 mg 1-17 mg by ity of tablet 16:36: mouth in [place] [address] the Medical morning. Branch metFORMIN 2021-09 Yes 500mg Take 500 Uni vers 500 mg 1-17 mg by ity of tablet 16:36: mouth in [place] 03 the Medical morning Branch and 500 mg in the evening. Take with meals. lovastatin 2021-09 Yes 20mg Take 20 mg U nivers 20 mg 1-17 by mouth ity of tablet 16:36: at [place] [address] bedtime. Medical Branch tamsulosin 2021-09 Yes Take by Univ ers (FLOMAX) 1-17 mouth ity of 0.4 mg 24 16:36: daily. [place] hr capsule Medical Branch ergocalcife 2021-09 Yes 2000U Take 2,000 Univers rol, 1-17 Units by ity of vitamin D2, 16:36: [place]. [place] (VITAMIN D Medical ORAL) Branch aspirin 81 2021-09 Yes 81mg Take 81 mg U nivers mg chewable 1-17 by mouth ity of tablet 16:36: in the [place] morning. Medical Branch polyethylen 2021-09 Yes 17g 17 g, Unive rs e glycol -17 Oral, ity of 3350 powder 15:00: DAILY, [place] 17 g 00 First dose Medical on [facility] 08/13/22 at 0900, Until Discontinu ed, Routine tamsulosin 2021-09 Yes .4mg 0.4 mg, Univ ers (FLOMAX) -17 Oral, ity of capsule 0.4 15:00: DAILY, [place] mg 00 First dose Medical on [facility] 08/13/22 at 0900, Until Discontinu ed, Routine losartan 2021-09 Yes 100mg 100 mg, Unive rs (COZAAR) -17 Oral, ity of tablet 100 15:00: DAILY, [place] mg 00 First dose Medical on [facility] 08/13/22 at 0900, Until Discontinu ed, Routine finasteride 2021-09 Yes 5mg 5 mg, Unive rs (PROSCAR) -17 Oral, ity of tablet 5 mg 15:00: DAILY, [place] 00 First dose Medical on [facility] 08/13/22 at 0900, Until Discontinu ed, Routine clopidogreL 2021-09 Yes 75mg 75 mg, Univ ers (PLAVIX) 75 -17 Oral, ity of mg tablet 15:00: DAILY, [place] 75 mg 00 First dose Medical on [facility] 08/13/22 at 0900, Until Discontinu ed, Routine aspirin 2021-09 Yes 81mg 81 mg, Univers chewable -17 Oral, ity of tablet 81 15:00: DAILY, [place] mg 00 First dose Medical on [place] [facility] 08/13/22 at 0900, Until Discontinu ed, Routine enoxaparin 2021-09 Yes 40mg 40 mg, Unive rs (LOVENOX) - Subcutaneo ity of injection 15:00: [place], [place]ILY, [place] 40 mg 00 First dose Medical on [facility] 08/13/22 at 0900, Until Discontinu ed, Routine Sliding 2021-09 Yes Subcutaneo Univ ers Scale -17 us, TID ity of Insulin - 14:00: MEALS+HS, [place] as Lispro 00 First dose Medical (HumaLOG) + on [facility] 08/13/22 Testing at 0800, Until Discontinu ed, Routine levothyroxi 2021-09 Yes 75ug 75 mcg, Uni vers ne -17 Oral, ity of (SYNTHROID) 12:00: QAM-0600, [place] tablet 75 00 First dose Medi balbina mcg on [facility] Branch 08/13/22 at 0600, Until Discontinu ed dextrose 2021-09 Yes 250mL 250 mL, IV Un jovi 10% (D10W) -17 Infusion, ity of bolus 06:39: PRN - SEE [place] infusion 28 INSTRUCTIO Medic al 250 mL NS, Branch Administer over 60 Minutes, Other, If blood glucose is < or = 70 mg/dL and patient is unable to swallow or has mental status changes, Starting on [facility] 08/13/22 at 0039
If blood glucose is [...] Starting Medical injection 1 on [facility] 08/13/22 at 0039, Until Discontinu ed, VAUGHN, [...] Routine, Pain (scale 1-3) iopamidol 2021-09- No [id number] 100mL 100 mL, Univers (ISOVUE 10-12 Intravenou ity o f 370-500 mL) 19:45: 19:33 s, ONCE, 1 [place] injection 00 :00 dose, On Medica l 100 mL [place] 08/12/22 at 1345, Routine hydralAZINE 2021-09- No 10mg 10 mg, Uni vers (APRESOLINE 10-12 Slow IV ity of ) injection 19:45: 18:58 [place], [place] 10 mg 00 :00 ONCE, 1 Medical dose, On Branch [facility] 08/12/22 at 1345, STAT LORazepam 2021-09- No 1mg 1 mg, Slow U nivers (ATIVAN) 10-12 IV Push, ity of injection 1 19:15: 19:11 ONCE, 1 [place] mg 00 :00 dose, On [facility] 08/12/22 at 1315, STAT morpHINE (4 2021-09- No 4mg 4 mg, Slow Univers mg/mL) 10-12 IV Push, ity of injection 4 19:00: 18:55 ONCE, 1 [place] mg 00 :00 dose, On [facility] 08/12/22 at 1300, STAT nitroglycer 2021-09- No .4mg 0.4 mg, Un jovi in 10-12 Sublingual ity of (NITROSTAT) 18:15: 18:06 , ONCE, 1 [place] sublingual 00 :00 dose, On Medic al tablet 0.4 Wed Branch 08/12/22 at 1215, VAUGHN nitroglycer 2021-09 Yes .4mg 0.4 mg, Uni vers in 10-12 Sublingual ity of (NITROSTAT) 18:10: , Q5MIN [place] sublingual 40 PRN, 2 Medical tablet 0.4 doses, Branch mg Starting on Wed08/12/22 at 1210, Until Discontinu ed, VAUGHN, Chest pain ondansetron 2021-09- No 4mg 4 mg, Slow Univers (ZOFRAN 10-12 IV Push, ity of (PF)) 17:15: 17:11 ONCE, 1 [place] injection 4 00 :00 dose, On Medi balbina mg [place] 08/12/22 at 1115, VAUGHN morpHINE (4 2021-09- No 4mg 4 mg, Slow Univers mg/mL) 10-12 IV Push, ity of injection 4 17:15: 17:12 ONCE, 1 [place] mg 00 :00 dose, On [facility] 08/12/22 at 1115, STAT Lidocaine & Lidocaine & 2021- No QD Lidocaine Adhesive Adhesive 06-19 & Adhesive Sheet 5 % Sheet 5 % 00:00: 00:00 Sheet 5 % (Patch) (Patch) 00 :00 (Patch) Lidocaine & Lidocaine & 2021- No QD Lidocaine Adhesive Adhesive 9-23 10-13 & Adhesive Sheet 5 % Sheet 5 % 00:00: 00:00 Sheet 5 % (Patch) (Patch) 00 :00 (Patch) Lidocaine & Lidocaine & 2021-0 2- No QD Lidocaine Adhesive Adhesive 9-23 10-13 & Adhesive Sheet 5 % Sheet 5 % 00:00: 00:00 Sheet 5 % (Patch) (Patch) 00 :00 (Patch) Lidocaine & Lidocaine & 2021-0 2021- No QD Lidocaine Adhesive Adhesive 9-23 10-13 & Adhesive Sheet 5 % Sheet 5 % 00:00: 00:00 Sheet 5 % (Patch) (Patch) 00 :00 (Patch) Lidocaine & Lidocaine & 2-0 2021- No QD Lidocaine Adhesive Adhesive 9-23 10-13 & Adhesive Sheet 5 % Sheet 5 % 00:00: 00:00 Sheet 5 % (Patch) (Patch) 00 :00 (Patch) Lidocaine & Lidocaine & 2021-0 2021- No QD Lidocaine Adhesive Adhesive 9-23 10-13 & Adhesive Sheet 5 % Sheet 5 % 00:00: 00:00 Sheet 5 % (Patch) (Patch) 00 :00 (Patch) meloxicam 2021-0 2021- No [id number] 15mg Take 1 Univers 15 mg 8-19 06- [id number] tablet by ity of tablet 00:00: 04:59 mouth in [place] 00 :00 [facility] for 30 days. meloxicam 2021-0 2021- No [id number] 15mg Take 1 Univers 15 mg 8-19 06- [id number] tablet by ity of tablet 00:00: 04:59 mouth in [place] 00 :00 [facility] for 30 days. meloxicam 2021-0 2021- No [id number] 15mg Take 1 Univers 15 mg 8-19 06- [id number] tablet by ity of tablet 00:00: 04:59 mouth in [place] 00 :00 [facility] for 30 days. methylPREDN 2021-0 Yes [id number] 84mg Take 21 Univers ISolone 5-23 9103 tablets by ity of (MEDROL, 00:00: mouth [place] MICHELE,) 4 mg 00 SEE-INSTRU Med ical tablets CTIONS. Branch follow package directions methylPREDN 2021-0 Yes [id number] 84mg Take 21 Univers ISolone 5-23 9103 tablets by ity of (MEDROL, 00:00: mouth [place] MICHELE,) 4 mg 00 SEE-INSTRU Med ical tablets CTIONS. Branch follow package directions methylPREDN 2021-0 Yes [id number] 84mg Take 21 Univers ISolone 5-23 9103 tablets by ity of (MEDROL, 00:00: mouth [place] MICHELE,) 4 mg 00 SEE-INSTRU Med ical tablets CTIONS. Branch follow package directions methylPREDN 2021-0 Yes [id number] 84mg Take 21 Univers ISolone 5-23 9103 tablets by ity of (MEDROL, 00:00: mouth [place] MICHELE,) 4 mg 00 SEE-INSTRU Med ical tablets CTIONS. Branch follow package directions methylPREDN 2021- No [id number] 84mg Take 21 Univers ISolone 5-23 11-17 9103 tablets by ity o f (MEDROL, 00:00: 00:00 mouth [place] MICHELE,) 4 mg 00 :00 SEE-INSTRU Med ical tablets CTIONS. Branch follow package directions Meloxicam Meloxicam 2021- No 1{table QD Meloxicam 7.5 MG 7.5 MG - 06-10 t} 7.5 MG 00:00: 00:00 00 [...] pirit e) e) 00:00: - CHI 00 [facility] Toradol Toradol 0 No 30mg Common (Ketorolac) (Ketorolac) 4-11 S pirit 00:00: - CHI 00 [facility] Rocephin Rocephin 0 No 1000mg Com mon (Ceftriaxon (Ceftriaxon 4-11 S pirit e) e) 00:00: - CHI 00 [facility] Toradol Toradol 2-0 No 30mg Common (Ketorolac) (Ketorolac) 4-11 S pirit 00:00: - CHI 00 [facility] Rocephin Rocephin 2-0 No 1000mg Com mon (Ceftriaxon (Ceftriaxon 4-11 S pirit e) e) 00:00: - CHI [facility] Toradol Toradol 2021-0 No 30mg Common (Ketorolac) (Ketorolac) 4-11 S pirit 00:00: - CHI 00 [facility] Naproxen Naproxen 2-0 No BID Naproxen 500 MG 500 MG 4-11 500 MG 00:00: 00 Rocephin Rocephin 2-0 No 1000mg Com mon (Ceftriaxon (Ceftriaxon 4-11 S pirit e) e) 00:00: - CHI [facility] Toradol Toradol 2021-0 No 30mg Common (Ketorolac) (Ketorolac) 4-11 S pirit 00:00: - CHI 00 [facility] Naproxen Naproxen 2-0 No BID Naproxen 500 MG 500 MG 4-11 500 MG 00:00: 00 Rocephin Rocephin 2-0 No 1000mg Com mon (Ceftriaxon (Ceftriaxon 4-11 S pirit e) e) 00:00: - CHI [facility] Toradol Toradol 2-0 No 30mg Common (Ketorolac) (Ketorolac) 4-11 S pirit 00:00: - CHI 00 [facility] Rocephin Rocephin 2-0 No 1000mg Com mon (Ceftriaxon (Ceftriaxon 4-11 S pirit e) e) 00:00: - CHI [facility] Toradol Toradol 2-0 No 30mg Common (Ketorolac) (Ketorolac) 4-11 S pirit 00:00: - CHI 00 [facility] Rocephin Rocephin 2-0 No 1000mg Com mon (Ceftriaxon (Ceftriaxon 4-11 S pirit e) e) 00:00: - CHI [facility] Toradol Toradol 2021-0 No 30mg Common (Ketorolac) (Ketorolac) 4-11 S pirit 00:00: - CHI 00 [facility] Rocephin Rocephin 2-0 No 1000mg Com mon (Ceftriaxon (Ceftriaxon 4-11 S pirit e) e) 00:00: - CHI [facility] Toradol Toradol 2021-0 No 30mg Common (Ketorolac) (Ketorolac) 4-11 S pirit 00:00: - CHI [facility] Rocephin Rocephin 2-0 No 1000mg Com mon (Ceftriaxon (Ceftriaxon 4-11 S pirit e) e) 00:00: - CHI [facility] Toradol Toradol 2021-0 No 30mg Common (Ketorolac) (Ketorolac) 4-11 S pirit 00:00: - CHI [facility] Rocephin Rocephin 2-0 No 1000mg Com mon (Ceftriaxon (Ceftriaxon 4-11 S pirit e) e) 00:00: - CHI [facility] Toradol Toradol 2021-0 No 30mg Common (Ketorolac) (Ketorolac) 4-11 S pirit 00:00: - CHI [facility] Rocephin Rocephin 2-0 No 1000mg Com mon (Ceftriaxon (Ceftriaxon 4-11 S pirit e) e) 00:00: - [facility] Toradol Toradol 2021-0 No 30mg Common (Ketorolac) (Ketorolac) 4-11 S pirit 00:00: - CHI [facility] Rocephin Rocephin 2-0 No 1000mg Com mon (Ceftriaxon (Ceftriaxon 4-11 S pirit e) e) 00:00: - CHI [facility] Toradol Toradol 2-0 No 30mg Common (Ketorolac) (Ketorolac) 4-11 S pirit 00:00: - CHI [facility] Rocephin Rocephin 2-0 No 1000mg Com mon (Ceftriaxon (Ceftriaxon 4-11 S pirit e) e) 00:00: - CHI 00 [facility] Toradol Toradol 2021-0 No 30mg Common (Ketorolac) (Ketorolac) 4-11 S pirit 00:00: - CHI 00 [facility] cefTRIAXone cefTRIAXone 2021-0 No 1000mg Common Sodium Sodium 4-11 Spirit 00:00: - CHI [facility] Toradol Toradol 2021-0 No 30mg Common (Ketorolac) (Ketorolac) 4-11 S pirit 00:00: - CHI [facility] cefTRIAXone cefTRIAXone 2021-0 No 1000mg Common Sodium Sodium 4-11 Spirit 00:00: - CHI 00 [facility] Toradol Toradol 2021-0 No 30mg Common (Ketorolac) (Ketorolac) 4-11 S pirit 00:00: - CHI 00 [facility] Amoxicillin Amoxicillin 2021-0 2- No 1{table BID Amoxicilli -Pot -Pot -11 04-18 t} n-Pot Clavulanate Clavulanate 00:00: 00:00 Clavulanat 875-125 MG 875-125 MG 00 :00 e 875-125 MG ceFAZolin 2020-09 No Route: IV, Me moria (ANES) - Drug form: l 18:23: INJ, ONCE, Stop date: 09/26/21 12:23:00 [employer] ondansetron 2020-09 No Route: IV, Memoria (ANES) Drug form: l 18:23: INJ, ONCE, Stop date: 09/26/21 12:23:00 [employer] dexamethaso 2020-09 No Route: IV, Memoria ne (ANES) Drug form: l 18:23: INJ, ONCE, Stop date: 09/26/21 12:23:00 [employer] lidocaine 2020-09 No Route: IV, Me moria (ANES) - Drug form: l 18:23: INJ, ONCE, Stop date: 09/26/21 12:23:00 [employer] propofol 2020-09 No Route: IV, Mem oria (ANES) - Drug form: l 18:23: INJ, ONCE, Stop date: 09/26/21 12:23:00 [employer] ceFAZolin 2020-09 No Route: IV, Me moria (ANES) 2- Drug form: l 18:23: INJ, ONCE, Stop date: 09/26/21 12:23:00 [employer] ondansetron 2020-09 No Route: IV, Memoria (ANES) 2- Drug form: l 18:23: INJ, ONCE, Stop date: 09/26/21 12:23:00 [employer] dexamethaso 2020-09 No Route: IV, Memoria ne (ANES) Drug form: l 18:23: INJ, ONCE, Stop date: 09/26/21 12:23:00 [employer] lidocaine 2020-09 No Route: IV, Me moria (ANES) 2- Drug form: l 18:23: INJ, ONCE, Stop date: 09/26/21 12:23:00 [employer] propofol 2020-09 No Route: IV, Mem oria (ANES) 2- Drug form: l 18:23: INJ, ONCE, Stop date: 09/26/21 12:23:00 [employer] ceFAZolin 2020-09 No Route: IV, Me moria (ANES) 2- Drug form: l 18:23: INJ, ONCE, Stop date: 09/26/21 12:23:00 [employer] ondansetron 2020-09 No Route: IV, Memoria (ANES) 2- Drug form: l 18:23: INJ, ONCE, Stop date: 09/26/21 12:23:00 [employer] dexamethaso 2020-09 No Route: IV, Memoria ne (ANES) 2- Drug form: l 18:23: INJ, ONCE, Stop date: 09/26/21 12:23:00 [employer] lidocaine 2020-09 No Route: IV, Me moria (ANES) 2- Drug form: l 18:23: INJ, ONCE, Stop date: 09/26/21 12:23:00 [employer] ceFAZolin 2020-09 No Route: IV, Me moria (ANES) 2- Drug form: l 18:23: INJ, ONCE, Stop date: 09/26/21 12:23:00 [employer] ondansetron 2020-09 No Route: IV, Memoria (ANES) 2- Drug form: l 18:23: INJ, ONCE, Stop date: 09/26/21 12:23:00 [employer] dexamethaso 2020-09 No Route: IV, Memoria ne (ANES) 2- Drug form: l 18:23: INJ, ONCE, Stop date: 09/26/21 12:23:00 [employer] lidocaine 2020-09 No Route: IV, Me moria (ANES) 2- Drug form: l 18:23: INJ, ONCE, Stop date: 09/26/21 12:23:00 [employer] propofol 2020-09 No Route: IV, Mem oria (ANES) 2- Drug form: l 18:23: INJ, ONCE, Stop date: 09/26/21 12:23:00 [employer] propofol 2020-09 No Route: IV, Mem oria (ANES) 2- Drug form: l 18:23: INJ, ONCE, Stop date: 09/26/21 12:23:00 [employer] ceFAZolin 2020-09 No Route: IV, Me moria (ANES) 2- Drug form: l 18:23: INJ, ONCE, Stop date: 09/26/21 12:23:00 [employer] ondansetron 2020-09 No Route: IV, Memoria (ANES) 2- Drug form: l 18:23: INJ, ONCE, Stop date: 09/26/21 12:23:00 [employer] dexamethaso 2020-09 No Route: IV, Memoria ne (ANES) 2- Drug form: l 18:23: INJ, ONCE, Stop date: 09/26/21 12:23:00 [employer] lidocaine 2020-09 No Route: IV, Me moria (ANES) 2- Drug form: l 18:23: INJ, ONCE, Stop date: 09/26/21 12:23:00 [employer] propofol 2020-09 No Route: IV, Mem oria (ANES) 2- Drug form: l 18:23: INJ, ONCE, Michael 00 Stop date: 09/26/21 12:23:00 [employer] midazolam 2020-09 No Route: IV, Me moria (ANES) 2- Drug form: l 18:22: SOLN, Michael 00 ONCE, Stop date: 09/26/21 12:22:00 [employer] fentaNYL 2020-09 No Route: IV, Mem oria (ANES) 2- Drug form: l 18:22: INJ, ONCE, Michael Stop date: 09/26/21 12:22:00 [employer] midazolam 2020-09 No Route: IV, Me moria (ANES) 2- Drug form: l 18:22: SOLN, [place] 00 ONCE, Stop date: 09/26/21 12:22:00 [employer] fentaNYL 2020-09 No Route: IV, Mem oria (ANES) 2- Drug form: l 18:22: INJ, ONCE, Michael Stop date: 09/26/21 12:22:00 [employer] midazolam 2020-09 No Route: IV, Me moria (ANES) 2- Drug form: l 18:22: SOLN, Michael 00 ONCE, Stop date: 09/26/21 12:22:00 [employer] fentaNYL 2020-09 No Route: IV, Mem oria (ANES) 2- Drug form: l 18:22: INJ, ONCE, Michael Stop date: 09/26/21 12:22:00 [employer] midazolam 2020-09 No Route: IV, Me moria (ANES) 2-31 Drug form: l 18:22: SOLN, Michael 00 ONCE, Stop date: 09/26/21 12:22:00 [employer] fentaNYL 2020-09 No Route: IV, Mem oria (ANES) 2-31 Drug form: l 18:22: INJ, ONCE, Michael Stop date: 09/26/21 12:22:00 [employer] midazolam 2020-09 No Route: IV, Me moria (ANES) 2-31 Drug form: l 18:22: SOLN, Michael 00 ONCE, Stop date: 09/26/21 12:22:00 [employer] fentaNYL 2020-09 No Route: IV, Mem oria (ANES) 2-31 Drug form: l 18:22: INJ, ONCE, [place] 00 Stop date: 09/26/21 12:22:00 [employer] Lactated 2020-09 No Route: IV, Mem oria Ringers 2-31 Total l Injection 17:40: Volume: Roz nn IV (ANES) 00 1,000, 1000 mL Start date: 09/26/21 11:40:00 [employer], Stop date: 09/26/21 12:40:00 [employer] Lactated 2020-09 No Route: IV, Mem oria Ringers 2-31 Total l Injection 17:40: Volume: Roz nn IV (ANES) 00 1,000, 1000 mL Start date: 09/26/21 11:40:00 [employer], Stop date: 09/26/21 12:40:00 [employer] Lactated 2020-09 No Route: IV, Mem oria Ringers 2-31 Total l Injection 17:40: Volume: Roz nn IV (ANES) 00 1,000, 1000 mL Start date: 09/26/21 11:40:00 [employer], Stop date: 09/26/21 12:40:00 [employer] Lactated 2020-09 No Route: IV, Mem oria Ringers 2-31 Total l Injection 17:40: Volume: Roz nn IV (ANES) 00 1,000, 1000 mL Start date: 09/26/21 11:40:00 [employer], Stop date: 09/26/21 12:40:00 [employer] Lactated 2020-09 No Route: IV, Mem oria Ringers 2-31 Total l Injection 17:40: Volume: Roz nn IV (ANES) 00 1,000, 1000 mL Start date: 09/26/21 11:40:00 [employer], Stop date: 09/26/21 12:40:00 [employer] Calcium 2020-09 No 1,000 mL, Memor ia Chloride 2-31 Rate: 75 l 0.0014 15:58: ml/hr, [place] MEQ/ML / 00 Infuse Potassium over: 13.3 Chloride hr, Route: 0.004 IV, Dosing MEQ/ML / Weight Sodium 99.545 kg, Chloride Total 0.103 Volume: MEQ/ML / 1,000, Sodium Start Lactate date: 0.028 09/26/21 MEQ/ML 9:58:00 Injectable [employer], Solution Duration: 30 day, Stop date: 10/26/21 9:57:00 [employer], BSA: 2.22 m2, 0 Calcium 2020- No 1,000 mL, Memor ia Chloride 2-31 Rate: 75 l 0.0014 15:58: ml/hr, Michael MEQ/ML / 00 Infuse Potassium over: 13.3 Chloride hr, Route: 0.004 IV, Dosing MEQ/ML / Weight Sodium 99.545 kg, Chloride Total 0.103 Volume: MEQ/ML / 1,000, Sodium Start Lactate date: 0.028 21 MEQ/ML 9:58:00 Injectable [employer], Solution Duration: 30 day, Stop date: 10/26/21 9:57:00 [employer], BSA: 2.22 m2, 0 Calcium 2020-09 No 1,000 mL, Memor ia Chloride 2-31 Rate: 75 l 0.0014 15:58: ml/hr, Michael MEQ/ML / 00 Infuse Potassium over: 13.3 Chloride hr, Route: 0.004 IV, Dosing MEQ/ML / Weight Sodium 99.545 kg, Chloride Total 0.103 Volume: MEQ/ML / 1,000, Sodium Start Lactate date: 0.028 09/26/21 MEQ/ML 9:58:00 Injectable [employer], Solution Duration: 30 day, Stop date: 10/26/21 9:57:00 [employer], BSA: 2.22 m2, 0 Calcium 2020-09 No 1,000 mL, Memor ia Chloride 2-31 Rate: 75 l 0.0014 15:58: ml/hr, [place] MEQ/ML / 00 Infuse Potassium over: 13.3 Chloride hr, Route: 0.004 IV, Dosing MEQ/ML / Weight Sodium 99.545 kg, Chloride Total 0.103 Volume: MEQ/ML / 1,000, Sodium Start Lactate date: 0.028 21 MEQ/ML 9:58:00 Injectable [employer], Solution Duration: 30 day, Stop date: 10/26/21 9:57:00 [employer], BSA: 2.22 m2, 0 Calcium 2020-09 No 1,000 mL, Memor ia Chloride 2-31 Rate: 75 l 0.0014 15:58: ml/hr, [place] MEQ/ML / 00 Infuse Potassium over: 13.3 Chloride hr, Route: 0.004 IV, Dosing MEQ/ML / Weight Sodium 99.545 kg, Chloride Total 0.103 Volume: MEQ/ML / 1,000, Sodium Start Lactate date: 0.028 09/26/21 MEQ/ML 9:58:00 Injectable [employer], Solution Duration: 30 day, Stop date: 10/26/21 9:57:00 [employer], BSA: 2.22 m2, 0 Folic Acid 2020-09 [...] 2-29 cap, PO, l capsule 15:14: Daily [place] tamsulosin 2020-09 Yes 0.4 mg = 1 M emoria 0.4 mg oral 2-29 cap, PO, l capsule 15:14: Daily [place] tamsulosin 2020-09 Yes 0.4 mg = 1 M emoria 0.4 mg oral 2-29 cap, PO, l capsule 15:14: Daily [place] 00 tamsulosin 2020-09 Yes 0.4 mg = 1 [...] UT) 00:00: (1000 UT) 00 hydroCHLORO hydroCHLORO No 1{table QD hydroCHLOR thiazide [...] a 1-15 PO, Daily, l 20:18: 0 Michael 00 Refill(s) levothyroxi Yes 75 Memori a ne 1-15 microgram, l 20:18: PO, Daily, [place] 00 0 Refill(s) finasteride Yes 5 mg = 1 Me moria 1-15 tab, PO, l 20:18: Daily, # [place] 00 30 tab, 0 Refill(s) lovastatin Yes 20 mg, PO, M emoria 1-15 0 l 20:18: Refill(s) Michael clopidogrel 2021-0 Yes 75 mg = 1 M emoria 75 mg oral 1-15 tab, PO, l tablet 20:18: Daily, # [place] 00 30 tab, 0 Refill(s) losartan 0 Yes 100 mg, Memori a 1-15 PO, Daily, l 20:18: 0 Refill(s) levothyroxi 0 Yes 75 Memori a ne 1-15 microgram, l 20:18: PO, Daily, 0 Refill(s) finasteride 0 Yes 5 mg = 1 Me moria 1-15 tab, PO, l 20:18: Daily, # Michael 00 30 tab, 0 Refill(s) lovastatin 0 Yes 20 mg, PO, M emoria 1-15 0 l 20:18: Refill(s) [place] 00 clopidogrel 0 Yes 75 mg = 1 M emoria 75 mg oral 1-15 tab, PO, l tablet 20:18: Daily, # [place] 00 30 tab, 0 Refill(s) losartan 0 Yes 100 mg, Memori a 1-15 PO, Daily, l 20:18: 0 [place] 00 Refill(s) levothyroxi 0 Yes 75 Memori a ne 1-15 microgram, l 20:18: PO, Daily, 0 Refill(s) finasteride 0 Yes 5 mg = 1 Me moria 1-15 tab, PO, l 20:18: Daily, # [place] 00 30 tab, 0 Refill(s) lovastatin 0 Yes [...] 6-22 Daily l 22:27: Michael 37 aspirin Yes 81 mg, PO, Brodie douglas 6-22 Daily l 22:27: Michael 37 metFORmin Yes 500 mg, Memor ia 6-22 PO, 1 tab l 22:27: with [place] 14 breakfast, 1 tab at noon, 2 at dinner metFORmin Yes 500 mg, Memor ia 6-22 PO, 1 tab l 22:27: with Michael 14 breakfast, 1 tab at noon, 2 at dinner metFORmin Yes 500 mg, Memor ia 6-22 PO, 1 tab l 22:27: with [place] 14 breakfast, 1 tab at noon, 2 at dinner Clopidogrel Clopidogrel No Clopidogre Bisulfate Bisulfate l [...] Yes Regina 1 capsule Common HCl HCl [facility] metFORMIN metFORMIN No metFORMIN HCl 500 [...] hen 7.5-325 ophen MG MG 7.5-325 MG Vital Signs Vital Name Observation Time Observation Value Comments Source Systolic blood 2022-08-13 17:39:00 151 mm[Hg] [facility] Diastolic blood 2022-08-13 17:39:00 94 mm[Hg] Unive rsity [facility] Heart rate 2022-08-13 17:39:00 82 /min [facility] Body temperature 2022-08-13 17:39:00 36.33 Annmarie [facility] rate 2022-08-13 17:39:00 18 /min [facility] Oxygen saturation in 2022-08-13 17:39:00 96 /min [facility] blood by [facility] Pulse oximetry [facility] Body weight 2022-08-13 09:43:00 89.994 kg [facility] BMI 2022-08-13 09:43:00 29.30 kg/m2 [facility] Body height 2022-08-13 01:42:00 175.3 cm [facility] height 2022-06-19 11:00:00 69.5 [in_i] [facility] weight 2022-06-19 11:00:00 212 [lb_av] [facility] temperature 2022-06-19 11:00:00 98.6 [degF] [facility] bmi 2022-06-19 11:00:00 30.85 kg/m2 [facility] oximetry 2022-06-19 11:00:00 96 % [facility] respiratory rate 2022-06-19 11:00:00 17 /min Comm on [facility] blood pressure 2022-06-19 11:00:00 134 mm[Hg] Common [facility] - systolic [facility] blood pressure 2022-06-19 11:00:00 80 mm[Hg] [facility] - [facility] height 2022-06-19 10:40:00 69.5 [in_i] [facility] weight 2022-06-19 10:40:00 212 [lb_av] [facility] temperature 2022-06-19 10:40:00 98.6 [degF] Common S [facility]irit [facility] bmi 2022-06-19 10:40:00 30.85 kg/m2 [facility] oximetry 2022-06-19 10:40:00 96 % Common [facility] respiratory rate 2022-06-19 10:40:00 17 /min Comm on [facility] blood pressure 2022-06-19 10:40:00 134 mm[Hg] [facility] - systolic [facility] blood pressure 2022-06-19 10:40:00 80 mm[Hg] [facility] - diastolic [facility] height 2022-06-15 11:20:00 69.5 [in_i] Common [facility] weight 2022-06-15 11:20:00 212 [lb_av] [facility] temperature 2022-06-15 11:20:00 98.2 [degF] Common S [facility]irit [facility] bmi 2022-06-15 11:20:00 30.85 kg/m2 Common S [facility] oximetry 2022-06-15 11:20:00 97 % Common [facility] respiratory rate 2022-06-15 11:20:00 16 /min Comm on [facility] blood pressure 2022-06-15 11:20:00 134 mm[Hg] [facility] - systolic [facility] blood pressure 2022-06-15 11:20:00 76 mm[Hg] [facility] - diastolic [facility] Body height 2022-05-19 13:09:00 175.3 cm [facility] Body weight 2022-05-19 13:09:00 95.255 kg [facility] BMI 2022-05-19 13:09:00 31.01 kg/m2 [facility] height 2022-02-04 09:20:00 69.5 [in_i] Common [facility] weight 2022-02-04 09:20:00 211.8 [lb_av] Common [facility] temperature 2022-02-04 09:20:00 97.5 [degF] Common [facility] bmi 2022-02-04 09:20:00 30.83 kg/m2 [facility] oximetry 2022-02-04 09:20:00 95 % Common [facility] respiratory rate 2022-02-04 09:20:00 16 /min Comm on [facility] blood pressure 2022-02-04 09:20:00 134 mm[Hg] [facility] - systolic [facility] blood pressure 2022-02-04 09:20:00 78 mm[Hg] [facility] - diastolic [facility] height 2022-01-05 14:40:00 69.5 [in_i] Common [facility] weight 2022-01-05 14:40:00 210.4 [lb_av] Common [facility] temperature 2022-01-05 14:40:00 98.1 [degF] Common [facility] bmi 2022-01-05 14:40:00 30.62 kg/m2 [facility] oximetry 2022-01-05 14:40:00 97 % [facility] respiratory rate 2022-01-05 14:40:00 16 /min Comm on [facility] blood pressure 2022-01-05 14:40:00 138 mm[Hg] [facility] - systolic [facility] blood pressure 2022-01-05 14:40:00 74 mm[Hg] [facility] - diastolic [facility] height 2021-12-22 08:40:00 69.5 [in_i] [facility] weight 2021-12-22 08:40:00 216.8 [lb_av] Common [facility] temperature 2021-12-22 08:40:00 97.5 [degF] Common S [facility]irit [facility] bmi 2021-12-22 08:40:00 31.55 kg/m2 Common [facility] oximetry 2021-12-22 08:40:00 97 % Common [facility] respiratory rate 2021-12-22 08:40:00 16 /min Comm on [facility] blood pressure 2021-12-22 08:40:00 136 mm[Hg] [facility] - systolic [facility] blood pressure 2021-12-22 08:40:00 78 mm[Hg] [facility] - diastolic [facility] height 2021-08-26 16:00:00 69.5 [in_i] Common [facility] weight 2021-08-26 16:00:00 213.2 [lb_av] [facility] temperature 2021-08-26 16:00:00 98.3 [degF] Common [facility] bmi 2021-08-26 16:00:00 31.03 kg/m2 Common S [facility] oximetry 2021-08-26 16:00:00 97 % Common [facility] respiratory rate 2021-08-26 16:00:00 16 /min Comm on [facility] blood pressure 2021-08-26 16:00:00 130 mm[Hg] [facility] - systolic [facility] blood pressure 2021-08-26 16:00:00 72 mm[Hg] [facility] - diastolic [facility] height 2021-06-24 08:00:00 69.5 [in_i] Common [facility] weight 2021-06-24 08:00:00 221.8 [lb_av] Common [facility] temperature 2021-06-24 08:00:00 99.0 [degF] Common [facility] bmi 2021-06-24 08:00:00 32.28 kg/m2 Common [facility] oximetry 2021-06-24 08:00:00 97 % Common [facility] respiratory rate 2021-06-24 08:00:00 16 /min Comm on [facility] blood pressure 2021-06-24 08:00:00 138 mm[Hg] [facility] - systolic [facility] blood pressure 2021-06-24 08:00:00 88 mm[Hg] [facility] - diastolic [facility] height 2021-03-25 08:40:00 69.5 [in_i] Common [facility] weight 2021-03-25 08:40:00 226.8 [lb_av] Common [facility] temperature 2021-03-25 08:40:00 97.8 [degF] Common [facility] bmi 2021-03-25 08:40:00 33.01 kg/m2 [facility] oximetry 2021-03-25 08:40:00 98 % Common [facility] respiratory rate 2021-03-25 08:40:00 16 /min Comm on [facility] blood pressure 2021-03-25 08:40:00 136 mm[Hg] [facility] - systolic [facility] blood pressure 2021-03-25 08:40:00 76 mm[Hg] [facility] - diastolic [facility] Systolic (mm Hg) 2023-01-12 20:10:00 Brodie Rodriguez Diastolic (mm Hg) 2023-01-12 20:10:00 Mem christophe Rodriguez Heart Rate 2023-01-12 20:10:00 [facility] Height 2023-01-12 20:10:00 5 [ft_i] [facility] Weight 2023-01-12 20:10:00 [facility] [place] BMI Calculated 2023-01-12 20:10:00 Memori al Michael Respitory Rate 2021-09-26 19:20:00 Memori al [place] Systolic (mm Hg) 2021-09-26 19:20:00 Brodie rial Michael Diastolic (mm Hg) 2021-09-26 19:20:00 Mem orial [place] Respitory Rate 2021-09-26 19:05:00 Memori al Michael Systolic (mm Hg) 2021-09-26 19:05:00 Brodie rial [place] Diastolic (mm Hg) 2021-09-26 19:05:00 Mem orial Michael Respitory Rate 2021-09-26 18:50:00 Memori al Michael Systolic (mm Hg) 2021-09-26 18:50:00 Brodie rial Michael Diastolic (mm Hg) 2021-09-26 18:50:00 Mem orial Michael Weight 2021-09-26 16:27:00 [facility] [place] BMI Calculated 2021-09-26 16:27:00 Memori al [place] Heart Rate 2021-09-26 15:54:00 [facility] [place] Height 2021-09-24 19:39:00 175.26 cm [facility] Height 2021-09-24 15:25:00 175.26 cm [facility] [place] Weight 2021-09-24 15:25:00 [facility] [place] BMI Calculated 2021-09-24 15:25:00 Memori al Michael Procedures Procedure Date / Time Performing Clinician Source Performed NOTICE OF PRIVACY 2023-01-07 13:09:51 Doctor Unassigned, No [facility] Name [facility] CONSENT/REFUSAL FOR 2023-01-07 13:09:26 [facility] Name [facility] ASSIGNMENT OF BENEFITS 2023-01-07 13:08:59 Doctor Unassigned, No [facility] Name Medical Branch TRANSTHORACIC ECHO (TTE) 2022-08-13 20:02:00 Andre David [facility] COMPLETE W/ CONTRAST [facility] POCT GLUCOSE (AUTOMATED) 2022-08-13 17:40:00 Alexandre Montemayor [facility] POCT GLUCOSE (AUTOMATED) 2022-08-13 13:32:00 Alexandre Montemayor [facility] MAGNESIUM 2022-08-13 09:50:00 Enrico [facility] BASIC METABOLIC PANEL 2022-08-13 09:50:[address] [facility] (NA, K, CL, CO2, Medical Branch GLUCOSE, BUN, CREATININE, CA) CBC WITH DIFF 2022-08-13 09:50:00 [facility] 2022-08-13 03:53:00 Enrico [facility] TROPONIN I 2022-08-13 02:32:00 Enrico [facility] POCT GLUCOSE (AUTOMATED) 2022-08-13 01:22:00 Alexandre Montemayor [facility] CT ANGIOGRAM CHEST 2022-08-12 19:53:05 Leonora [facility] ANGIOGRAM 2022-08-12 19:53:05 Tung [facility] [address] ABDOMEN/PELVIS [facility] HB ECG ROUTINE & RHYTHM 2022-08-12 19:09:[address] [facility] TROPONIN I 2022-08-12 19:08:00 Tung [facility] HB ECG ROUTINE & RHYTHM 2022-08-12 18:01:[address] [facility] LIPASE 2022-08-12 17:05:00 Tung [facility] TROPONIN I 2022-08-12 17:05:00 Tung [facility] COMP. METABOLIC PANEL 2022-08-12 17:05:[address] [facility] ([id number]) [facility] CBC WITH DIFF 2022-08-12 17:05:00 Tung [facility] GLYCOSYLATED HEMOGLOBIN 2022-08-12 17:05:00 Andre David [facility] (A1C) [facility] PROTHROMBIN TIME / INR 2022-08-12 17:05:00 Leonora Ruby [facility] URINALYSIS 2022-08-12 17:05:00 Leonora Ruby [facility] N-TERMINAL PRO-BNP 2022-08-12 17:05:00 Leonora Ruby [facility] HB ECG ROUTINE & RHYTHM 2022-08-12 16:51:[address] [facility] CONSENT/REFUSAL FOR 2022-08-12 16:16:12 Doctor Unassigned, No Un [facility] DIAGNOSIS AND TREATMENT Name [facility] REFERRAL- 2022-06-16 05:01:00 [facility]assigned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 [id number] Common 09:28:02 Maira [id number] [facility] 2021-10-[address] [facility] [id number] Common 14:27:24 Maira [id number] [facility] 2021-10-22 Outpatient Oliveira, MELANI [facility] [id number] Common 14:18:00 Maira [id number] [facility] 2021-10-22 Outpatient Carroll, MELANI [facility] [id number] Common 13:35:45 Regina [id number] [facility] 2021-10-22 Outpatient Carroll, MELANI [facility] [id number] Common 12:41:58 Regina [id number] [facility] 2021-10-22 Out[facility] [place], STLMLC STL[facility]C [id number] Common 12:40:52 Regina [id number] [facility] 2021-10-22 [facility] [place], STLMLC STLMLC [id number] Common 12:12:33 Regina [id number] [facility] 2021-10-22 [facility] [place], STLMLC STLMLC [id number] Common 11:56:49 Regina [id number] [facility] 2021-10-22 [facility] [place], STLMLC STLMLC [id number] Common 11:56:09 Regina [id number] [facility] 2021-10-22 [facility] [place], STLMLC STLMLC [id number] Common 11:21:52 Regina [id number] [facility] 2021-10-22 [facility] [place], STLMLC STLMLC [id number] Common 11:07:15 Regina [id number] [facility] 2021-10-22 [facility] [place], STLMLC STLMLC [id number] Common 11:06:53 Regina [id number] [facility] 2021-10-22 [facility] [place], STLMLC STLMLC [id number] Common 10:59:53 Regina [id number] [facility] 2021-07-28 Emergency [facility] [facility] [id number] Univers 23:28:16 [facility] 2023-03-26 2023-03-26 Outpatient MHIE MHIE [id number] Memoria 09:45:00 09:45:00 02 eb Rodriguez 2023-02-12 2023-02-12 Outpatient MHIE MHIE [id number] Memoria 08:15:00 08:15:00 01 eb Rodriguez 2023-02-12 2023-02-12 Outpatient MHIE MHIE [id number] Memoria 08:15:00 08:15:00 01 eb Rodriguez 2023-01-12 2023-01-13 Outpatient MHIE MNA [id number] Memoria 20:15:00 04:59:59 Neurology 00 eb Rodriguez 2023-01-12 2023-01-13 Outpatient MHIE MNA [id number] Memoria 20:15:00 04:59:59 Neurology 00 l Renetta Rodriguez 2023-01-12 2023-01-12 Outpatient STEPHANIE HaysMISCHER [id number] 15:15:00 23:59:59 Jeison 00 Grayson 2023-01-12 2023-01-12 Outpatient MHIE MHIE [id number] Memoria 15:15:00 15:15:00 00 l Michael 2023-01-07 2023-01-07 Hospital Radiology [facility] 1.2.840.114 [id number] Univers 08:11:54 23:59:00 Encounter GIL 350.1.13.10 [place] [id number] [facility] [address] 2023-01-07 2023-01-07 Outpatient R RADIOLOGY [facility] [id number] Univers 00:00:00 23:59:00 ity [facility] 2022-10-28 2022-10-28 (TEL) STLC STLC [id number] Co mmon 00:00:00 00:00:00 Spirit - [facility] 2022-08-14 2022-08-14 Transition ELIUD Rice 1.2.840.114 [id number] Univers 00:00:00 00:00:00 of Care [place] ELAM 350.1.13.10 it y of [place] 4.2.7.2.686 [facility] [id number] [facility] [address] 2022-08-14 2022-08-14 (TEL) STLMLC STLC [id number] Co mmon 00:00:00 00:00:00 Spirit - [facility] 2022-08-12 2022-08-13 Outpatient X LUCERO, [facility] KIP [id number] Univers 10:44:00 16:22:00 EARL ity [facility] 2022-08-12 2022-08-13 Emergency Leonora Ruby [facility] 1.2.840 .114 [id number] Univers 10:44:00 16:22:00 Alexandre Montemayor 350.1.13.10 ity of [place] 4.2.7.2.686 [facility] [id number] [facility] [address] 2022-06-22 2022-06-22 (TEL) STLMLC STLMLC [id number] Co mmon 00:00:00 00:00:00 Spirit - [facility] 2022-06-19 2022-06-19 (MCR WELL) STLMLC STLMLC [id number] Common 00:00:00 00:00:00 Medicare Spiri t Wellness - [facility] 2022-06-19 2022-06-19 OFFICE STLMLC STLMLC [id number] Co mmon 00:00:00 00:00:00 VISIT EST Spir it PT LEVEL 3 [facility] 2022-06-16 2022-06-16 Orders Doctor MEGAN 1.2.840.114 [id number] Univers 00:00:00 00:00:00 Only Unassigned, ANASTASIA 350.1.13.10 [facility] 4.2.7.2.686 [place] as [id number] [facility] [address] 2022-06-15 2022-06-15 OFFICE STLC STLC [id number] Co mmon 00:00:00 00:00:00 VISIT EST Spir it PT LEVEL 3 [facility] 2022-05-21 2022-05-21 [facility]phone [facility] 1.2.840.114 [id number] Univers 00:00:00 00:00:00 [facility] HEALTH 350.1.13.10 it y of [place] 4.2.7.2.686 [place] as MANOJ?BLEA [id number] Mi nikita THOMPSON 198 [facility] OFFICE [facility] 2022-05-19 2022-05-19 Office [facility] 1.2.840.114 [id number] Univers 08:45:00 09:00:00 Visit Brian S HEALTH 350.1.13.10 it y of [place] 4.2.7.2.686 [place] as MANOJ?BLEA [id number] Mi nikita THOMPSON 198 [facility] OFFICE BUILDING 2022-05-19 2022-05-19 Outpatient [facility] [id number] Univers 08:45:00 08:45:00 BRIAN ity of [facility] 2022-05-19 2022-05-19 Outpatient R [facility] [id number] Univers 08:45:00 08:45:00 BRIAN ity of [facility] 2022-05-16 2022-05-16 Outpatient R RADIOLOGY [facility] [id number] Univers 07:47:58 23:59:00 ity of [facility] 2022-05-16 2022-05-16 Hospital Radiology [facility] 1.2.840.114 [id number] Univers 07:47:58 23:59:00 Encounter [place]ANT[place] 350.1.13.[address] [facility] [place]2.7.2.[place] [id number] [facility] [address] 2022-05-16 2022-05-16 Outpatient R RADIOLOGY [facility] [id number] Univers 07:47:58 23:59:00 ity of [facility] 2022-05-14 2022-05-14 [facility] Radiology [facility] 1.2.840.114 [id number] Univers 08:30:00 08:30:00 Encounter Y HEALTH 350.1.13.10 ity of [facility] 4.2.7.2.[place] [id number] [facility] [address] 2022-05-14 2022-05-14 Outpatient R RADIOLOGY [facility] [id number] Univers 00:00:00 00:00:00 ity of [facility] 2022-05-14 2022-05-14 Outpatient R RADIOLOGY [facility] [id number] Univers 00:00:00 00:00:00 ity of [facility] 2022-05-12 2022-05-12 Telephone [facility] 1.2.840.114 [id number] Univers 00:00:00 00:00:00 Wallace L HEALTH 350.1.13.10 it y of [place] 4.2.7.2.686 [place] as MANOJ?BLEA [id number] [address] MEDICAL OFFICE BUILDING 2022-05-11 2022-05-11 Outpatient R [facility] [id number] Univers 15:14:20 23:59:00 WALLACE chinchilla [facility] 2022-05-11 2022-05-11 Hospital [facility] 1.2.840.114 [id number] Univers 15:14:20 23:59:00 Encounter Wallace CORDERO 350.1.13.10 ity [facility] 4.2.7.2.[place] [id number] [facility] [address] 2022-05-11 2022-05-11 Office [facility] 1.2.345.510 [id number] Univers 14:45:00 14:45:00 Visit Wallace Edge HEALTH 350.1.13.10 it y of [place] 4.2.7.2.686 Ty as MANOJ?BLEA [id number] Mi nikita [address]IM[address] OFFICE [facility] 2022-05-11 2022-05-11 Outpatient R [facility] [id number] Univers 14:45:00 14:34:12 WALLACE chinchilla [facility] 2022-05-07 2022-05-07 Telephone [facility] 1.2.840.114 [id number] Univers 00:00:00 00:00:00 Wallace Edge HEALTH 350.1.13.10 it y of [place] 4.2.7.2.686 [place] as MANOJ?BLEA [id number] Mi nikita KIM[address] OFFICE [facility] 2022-03-05 2022-03-05 (TEL) [facility] [id number] Co mmon 00:00:00 00:00:00 [facility] 2022-03-03 2022-03-03 Outpatient R [facility] [id number] Univers 13:04:32 23:59:00 WALLACE chinchilla [facility] 2022-03-03 2022-03-03 Office [facility] 1.2.840.114 [id number] Univers 13:45:00 14:00:00 Visit Brian S HEALTH 350.1.13.10 it y of [place] 4.2.7.2.686 Ty as MANOJ?BLEA [id number] Mi dical KN[address] OFFICE [facility] 2022-03-03 2022-03-03 Outpatient Alec SARBJIT [facility] [id number] Univers 13:45:00 13:45:00 BRIAN ity [facility] 2022-02-16 2022-02-16 Outpatient Alec [facility] [id number] Univers 13:27:13 23:59:00 BRIAN ity [facility] 2022-02-16 2022-02-16 Outpatient Alec [facility] [id number] Univers 13:27:13 23:59:00 BRIAN ity [facility] 2022-02-16 2022-02-16 Office [facility] 1.2.840.114 [id number] Univers 13:45:00 14:00:00 Visit Brian S HEALTH 350.1.13.10 it y of [place] 4.2.7.2.686 Ty as MANOJ?BLEA [id number] Mi richard[address] 2022-02-16 2022-02-16 Outpatient Alec [facility] [id number] Univers 13:45:00 13:45:00 BRIAN ity [facility] 2022-02-16 2022-02-16 Orders Doctor MEGAN 1.2.840.114 [id number] Univers 00:00:00 00:00:00 Only Unassigned, ANASTASIA 350.1.13.10 ity of [facility] 4.2.7.2.686 Ty as [id number] [address] 2022-02-16 2022-02-16 Telephone [facility] [place] 1.2.383.466 [id number] Univers 00:00:00 00:00:00 Brian S HEALTH 350.1.13.10 it y of [place] 4.2.7.2.686 Ty as MANOJ?BLEA [id number] Mi nikita [address] 2022-02-05 2022-02-05 Orders Doctor MEGAN 1.2.840.114 [id number] Univers 00:00:00 00:00:00 Only Unassigned, ANASTASIA 350.1.13.10 ity of [facility] 4.2.7.2.686 Ty as [id number] [place] [address] 2022-02-04 2022-02-04 OFFICE STLMLC STLMLC [id number] Co mmon 00:00:00 00:00:00 VISIT EST Spir it PT LEVEL 3 - [facility] 2022-01-19 2022-01-19 (TEL) STLMLC STLMLC [id number] Co mmon 00:00:00 00:00:00 [facility] 2022-01-05 2022-01-05 OFFICE STLMLC STLMLC [id number] Co mmon 00:00:00 00:00:00 VISIT EST Spir it PT LEVEL 3 - [facility] 2021-12-22 2021-12-22 OFFICE STLMLC STLMLC [id number] Co mmon 00:00:00 00:00:00 VISIT Spirit ESTAB PT - CHI LEVEL 4 [facility] 2021-11-20 2021-11-20 (TEL) STLMLC STLMLC [id number] Co mmon 00:00:00 00:00:00 [facility] 2021-10-21 2021-10-21 (TEL) STLMLC STLMLC [id number] Co mmon 00:00:00 00:00:00 [facility] 2021-10-02 2021-10-02 (TEL) STLMLC STLMLC [id number] Co mmon 00:00:00 00:00:00 [facility] 2021-09-26 2021-09-26 Day [facility] [id number] Memoria 14:19:00 19:21:00 Surgery r [address] 2021-09-26 2021-09-26 [facility] [id number] Memoria 14:19:00 19:21:00 Surgery r [address] 2021-09-26 2021-09-26 Outpatient CURT Nash [id number] 08:19:00 13:21:00 [facility] 2021-09-26 2021-09-26 Outpatient LORI NASHBL [id number] MHHERON 08:19:00 13:21:00 [place] 2021-09-12 2021-09-12 (TEL) STLMLC STLMLC [id number] Co mmon 00:00:00 00:00:00 [facility] 2021-09-08 2021-09-08 (TEL) STLMLC STLMLC [id number] Co mmon 00:00:00 00:00:00 [facility] 2021-09-02 2021-09-02 Outpatient R NIURKA [facility] OPH [id number] Univers 06:24:00 09:17:00 CHE stevansaleem [facility] 2021-09-02 2021-09-02 [facility] 1.2.840.114 [id number] Univers 06:24:00 09:17:00 Encounter Che Cristhian CORDERO 350.1.13.10 ity of [facility] [place].2.7.2.[place] [id number] [address] 2021-09-02 2021-09-02 Surgery [facility] 1.2.351.446 [id number] Univers 07:30:00 08:31:00 Che Cristhian CORDERO 350.1.13.10 ity of [facility] 4.2.[place].2.[place] [id number] [address] 2021-09-01 2021-09-01 Outpatient R NIURKA [facility] [id number] Univers 09:45:00 09:45:00 CHE amor [facility] 2021-09-01 2021-09-01 Laboratory Only, Adc Test [facility] 1.2.840. 114 [id number] Univers 08:58:02 09:13:02 Only Niurka Che Cristhian CORDERO 350.1.13. 10 ity of [facility] [place].2.7.2.[place] [id number] [place] [address] [address] 2021-09-01 2021-09-01 Orders Doctor GUZMAN 1.2.840.114 [id number] Univers 00:00:00 00:00:00 Only Unassigned, ANASTASIA 350.1.13.10 ity of [place] [facility] 4.2.7.2.686 Ty as [id number] [address] 2021-09-01 2021-09-01 (TEL) STLMLC STLMLC [id number] Co mmon 00:00:00 00:00:00 [facility] 2021-08-26 2021-08-26 OFFICE STLMLC STLMLC [id number] Co mmon 00:00:00 00:00:00 VISIT EST Spir it PT LEVEL 3 [facility] 2021-08-19 2021-08-19 (TEL) STLMLC STLMLC [id number] Co mmon 00:00:00 00:00:00 [facility] 2021-08-13 2021-08-13 Outpatient Alec SCHAFFER [facility] [id number] Univers 13:15:00 13:15:00 BRIAN stevany [facility] 2021-08-13 2021-08-13 Office Sarbjit [facility] 1.2.840.114 [id number] Univers 12:47:28 13:02:28 Visit [facility] [employer] 350.1.13.10 it y of [place] 4.2.7.2.686 Ty as MANOJ?BLEA [id number] Mi dic[address] MEDICAL OFFICE BUILDING 2021-08-13 2021-08-13 Telephone [facility] 1.2.840.114 [id number] Univers 00:00:00 00:00:00 [facility] [employer] 350.1.13.10 it y of SURGICAL 4.2.7.2.686 Ty as SPECIALTI [phone] Mi dical [address] 2021-07-29 2021-07-29 (TEL) STLMLC STLMLC [id number] Co mmon 00:00:00 00:00:00 [facility] 2021-07-25 2021-07-25 (TEL) STLMLC STLMLC [id number] Co mmon 00:00:00 00:00:00 [facility] 2021-07-21 2021-07-21 Hospital [facility] 1.2.840.114 [id number] Univers 13:35:00 23:59:00 Encounter Wallace Edge [employer] 350.1.13.10 ity of [place] 4.2.7.2.686 Ty as Manoj?Blea [id number] Mi nikita thompson 8[facility] Office [facility] 2021-07-21 2021-07-21 Outpatient Alec DOTSON [facility] [id number] Univers 13:35:00 23:59:00 [facility] 2021-07-21 2021-07-21 Outpatient [facility] [id number] Univers 13:30:00 14:45:07 [facility] 2021-07-21 2021-07-21 Office [facility] 1.2.335.758 [id number] Univers 13:00:10 14:45:07 Visit Wallace Edge [facility] 350.1.13.10 it [facility] 4.2.7.2.686 Ty as MANOJ?BLEA [id number] Mi nikita THOMPSON 198 [facility] OFFICE [facility] 2021-07-21 2021-07-21 Outpatient Alec [facility] [id number] Univers 13:30:00 13:30:00 [facility] 2021-07-21 2021-07-21 (TEL) STLMLC STLMLC [id number] Co mmon 00:00:00 00:00:00 Spirit [facility] 2021-07-11 2021-07-11 (TEL) STLMLC STLMLC [id number] Co mmon 00:00:00 00:00:00 Spirit - [facility] 2021-07-11 2021-07-11 OFFICE STLMLC STLMLC [id number] Co mmon 00:00:00 00:00:00 VISIT Spirit ESTAB PT - CHI LEVEL 1 [facility] 2021-07-07 2021-07-07 (TEL) STLMLC STLMLC [id number] Co mmon 00:00:00 00:00:00 Spirit [facility] 2021-06-29 2021-06-29 (TEL) STLMLC STLMLC [id number] Co mmon 00:00:00 00:00:00 [facility] 2021-06-24 2021-06-24 OFFICE STLMLC STLMLC [id number] Co mmon 00:00:00 00:00:00 VISIT [facility] PT - [facility] LEVEL 4 [facility] 2021-06-13 2021-06-13 Emergency [facility] 1.2.840.114 [id number] Univers 14:19:00 18:37:00 Shannon Cordero 350.1.13.10 [facility] 4.2.7.2.686 [facility] [id number] [facility] [address] 2021-06-06 2021-06-06 Outpatient STLMLC STLMLC [id number] Common 00:00:00 00:00:00 [facility] 2021-05-05 2021-05-05 Outpatient STLMLC STLMLC [id number] Common 00:00:00 00:00:00 [facility] 2021-04-30 2021-04-30 Outpatient STLMLC STLMLC [id number] Common 00:00:00 00:00:00 [facility] 2021-04-30 2021-04-30 Outpatient STLMLC STLMLC [id number] Common 00:00:00 00:00:00 [facility] 2021-04-25 2021-04-25 Outpatient STLMLC STLMLC [id number] Common 00:00:00 00:00:00 [facility] 2021-04-03 2021-04-03 Outpatient STLMLC STLMLC [id number] Common 00:00:00 00:00:00 [facility] 2021-03-25 2021-03-25 OFFICE STLMLC STLMLC [id number] Co mmon 00:00:00 00:00:[address] 2021-01-24 2021-01-24 Outpatient STLMLC STLMLC [id number] Common 00:00:00 00:00:00 [facility] 2021-01-17 2021-01-17 Outpatient STLMLC STLMLC [id number] Common 00:00:00 00:00:00 [facility] 2021-01-13 2021-01-13 Outpatient STLMLC STLMLC [id number] Common 00:00:00 00:00:00 [facility] 2021-01-10 2021-01-10 Outpatient STLMLC STLMLC [id number] Common 00:00:00 00:00:00 [facility] 2020-12-31 2020-12-31 Outpatient STLMLC STLMLC [id number] Common 00:00:00 00:00:00 [facility] 2020-12-25 2020-12-25 Outpatient Alec [facility] [id number] Univers 13:45:00 13:45:00 [facility] 2020-12-25 2020-12-25 Office [facility] 1.2.348.704 [id number] 12:51:24 13:25:03 Visit [facility] 350.1.13.10 [facility] 4.2.7.2.686 [facility] [id number] [address] 2020-12-23 2020-12-23 Outpatient Alec [facility] [id number] Univers 13:45:00 13:45:00 [facility] 2020-12-23 2020-12-23 Outpatient STLMLC STLMLC [id number] Common 00:00:00 00:00:00 [facility] 2020-12-21 2020-12-21 Outpatient STLMLC STLMLC [id number] Common 00:00:00 00:00:00 [facility] 2020-12-19 2020-12-19 Outpatient STLMLC STLMLC [id number] Common 00:00:00 00:00:00 [facility] 2020-12-17 2020-12-17 Outpatient STLMLC STLMLC [id number] Common 00:00:00 00:00:00 [facility] 2020-12-17 2020-12-17 Outpatient STLMLC STLMLC [id number] Common 00:00:00 00:00:00 [facility] 2020-12-102020-12-10 Outpatient STLMLC STLMLC [id number] Common 00:00:00 00:00:00 [facility] 2020-12-09 2020-12-09 Outpatient STLMLC STLMLC [id number] Common 00:00:00 00:00:00 [facility] 2020-11-07 2020-11-07 Outpatient STLMLC STLMLC [id number] Common 00:00:00 00:00:00 [facility] 2020-11-04 2020-11-04 Outpatient STLMLC STLMLC [id number] Common 00:00:00 00:00:00 [facility] 2020-11-04 2020-11-04 Outpatient STLMLC STLMLC [id number] Common 00:00:00 00:00:00 [facility] 2020-10-15 2020-10-15 Outpatient SAAD [facility] [id number] [facility] 07:11:00 12:00:00 [place] 2020-09-09 2020-09-09 Outpatient STLMLC STLMLC [id number] Common 00:00:00 00:00:00 [facility] 2020-08-14 2020-08-14 Outpatient Young_J MMG MMG [id number] [place] 02:37:00 02:37:00 [facility] 2020-07-16 2020-07-16 Outpatient STLMLC STLMLC [id number] Common 00:00:00 00:00:00 [facility] 2020-07-04 2020-07-04 Outpatient Alec DOTSON [facility] [id number] Univers 08:00:00 08:00:00 WALLACE [facility] 2020-05-06 2020-05-06 Out[facility] [id number] Common 10:52:00 10:52:00 [facility] 2020-04-15 2020-04-15 Outpatient Alec SCHAFFER [facility] [id number] Univers 15:45:00 15:45:00 BRIAN saleem [facility] 2020-04-11 2020-04-11 Outpatient R [facility] [id number] Univers 15:30:00 15:30:00 [facility] 2020-04-10 2020-04-10 Outpatient [facility] [id number] Common 13:19:00 13:19:00 t [facility] [address] [facility] 2020-04-08 2020-04-08 Outpatient [facility] [id number] Common 11:08:00 11:08:00 t [facility] [address] [facility] 2020-04-05 2020-04-05 Outpatient [facility] [id number] Common 18:34:00 18:34:00 t [facility] [address] [facility] 2020-03-07 2020-03-07 Outpatient Alec [facility] [id number] Univers 15:00:00 15:00:00 [facility] 2020-01-09 2020-01-09 Outpatient [facility] [id number] Common 14:23:00 14:23:00 t [facility] [address] [facility] 2020-01-08 2020-01-08 Outpatient [facility] [id number] Common 08:00:00 08:00:00 t [facility] [address] [facility] 2019-11-22 2019-11-22 Outpatient [facility] [id number] Common 19:45:00 19:45:00 t [facility] [address] [facility] 2019-11-08 2019-11-08 Outpatient [facility] [id number] Common 09:12:00 09:12:[address] [facility] 2019-11-07 2019-11-07 Outpatient [facility] [id number] Common 08:17:00 08:17:[address] [facility] 2019-10-19 2019-10-19 Outpatient [facility] [id number] Common 15:57:00 15:57:[address] [facility] 2019-10-18 2019-10-18 Outpatient [facility] [id number] Common 09:24:00 09:24:00 t [facility] [address] [facility] 2019-10-17 2019-10-17 Outpatient [facility] [id number] Common 09:00:00 09:00:00 t [facility] [address] [facility] 2019-10-11 2019-10-11 Outpatient O [facility] [id number] Univers 15:30:52 15:30:00 ity [facility] 2019-10-09 2019-10-09 Outpatient [facility] [id number] Common 10:27:00 10:27:00 t [facility] [address] [facility] 2019-10-09 2019-10-09 Outpatient [facility] [id number] Common 09:00:00 09:00:00 [facility] [address] [facility] 2018-08-08 2018-08-08 Saravanan [facility] [place] - [id number] M atagor 00:00:00 00:00:00 Young, DO: Discovery noe [address] - [place] [address], [facility] [address] , Ph. [phone] 2018-08-04 2018-08-04 Jose Noe [facility] [place] - [id number] M atagor 00:00:00 00:00:00 MD Bobbi: Discovery batres [address] [place] [address] 1, [place] [address] , Ph. 2018-07-07 2018-07-07 Jose Noe [facility] [place] - [id number] M atagor 00:00:00 00:00:00 MD Bobbi: Discovery batres [address] [place] [address] 1, [place] [address] , Ph. Results Test Description Test Time Test Comments Results Result Comments Source Transthoracic echo (TTE) 2022-08-13 22:32:11 Test Item Value Reference Range Interpretation Comme nts Height (test code = 9347135473) in Weight (test code = 4065273960) lbs Systolic BP (test code = 0267782994) mmHg Diastolic BP (test code = 0758171207) mmHg Heart Rate (test code = 1115886649) bpm BSA (test code = 5018864828) 2.06 m2 Ao root diam (test code = 3679295193) 4.10 cm Aortic root (test code = 6952350400) 4.1 cm Ao root annulus (test code = 4.1 cm 0736606527) LVOT diameter (test code = 7088237220) 2.13 cm LVOT area (test code = 3562499707) 3.60 cm2 LA size (test code = 3264449350) 2.7 cm LAV(MOD-sp4) (test code = 8676907478) 46.70 mL E wave decelartion time (test code = 0.17 s 1090261469) MV stenosis pressure 1/2 time (test 51.2 ms code = 2154900283) MV Peak A Bobby (test code = 4551394785) 65.7 cm/s MV Peak E Bobby (test code = 0713346455) 52.5 cm/s E/A ratio (test code = 7740203800) ratio MV Prop V (test code = 4248359229) 58.90 cm/s MV E/e' septal (test code = 8.6 cm/s 5208986968) Tapse (test code = 7508660238) 2.07 cm LVOT stroke volume (test code = 56.50 cm3 4258361800) LVOT peak bobby (test code = 7584225798) 83.0 cm/s LVOT mn grad (test code = 0628268584) mmHg AV LVOT peak gradient (test code = mmHg 6636810720) LVOT peak VTI (test code = 2726440628) 15.9 cm LV V1 mean (test code = 5221463709) 57.80 cm/s Aortic valve mean velocity (test code 86.0 cm/s = 3077244974) Ao peak bobby (test code = 2292609708) 113.0 cm/s Ao VTI (test code = 7171128266) 21.8 cm AV area by cont VTI (test code = 2.6 cm2 9494286179) AV area peak bobby (test code = 2.6 cm2 8150548360) Ao max PG (test code = 0717671875) 5.10 mm[Hg] AV peak gradient (test code = mmHg 4332464775) AV valve area (test code = 1510138550) 2.60 cm2 AV mean gradient (test code = mmHg 9136088659) LVIDD (test code = 8304697982) 4.80 cm Left Ventricular End Diastolic Volume 109.8 mL by Teichholz Method (test code = 6466143) IVS (test code = 2184530839) 1.03 cm Interventricular Septum Diastolic 1.03 cm Thickness by 2D (test code = 1701558) LVPWD (test code = 5475684513) 1.04 cm PW (test code = 9309989795) 1.04 cm 0.6-1.1 EF(Teich) (test code = 8387203043) 64.10 % LVIDS (test code = 7409111413) 3.20 cm Left Ventricular End Systolic Volume 39.4 mL by Teichholz Method (test code = 1365852) FS (test code = 3849982870) 35 % EF - 2D (test code = [id number]) 64.10 % Radiology Study observation (narrative) (test code = 14947-6) SOFIYA (test code = SOFIYA) ?Left?Ventricle: Left [...] mL of Lumason ultrasound enhancing agent used. [facility] GLUCOSE (AUTOMATED)2022-08-13 18:19:00 Test Item Value Reference Range Interpretation Comments POCT GLU (test code = 5002598221) 196 mg/dL 70-110 H Lab Interpretation (test code = Abnormal 75642-2) [facility] GLUCOSE (AUTOMATED)2022-08-13 13:59:31 Test Item Value Reference Range Interpretation Comments POCT GLU (test code = 5179255833) 146 mg/dL 70-110 H Lab Interpretation (test code = Abnormal 99345-3) [facility] GLUCOSE (AUTOMATED)2022-08-13 01:25:38 Test Item Value Reference Range Interpretation Comments POCT GLU (test code = 6201678435) 102 mg/dL 70-110 Lab Interpretation (test code = Normal 97094-0) [id number] 19:44:37 Test Item Value Reference Interpretation Comments Range TROPONIN I (test 0.004 ng/mL See_Comment [Automated code = [id number]) message] The system which generated this result [...] biotin. Lab Interpretation Normal (test code = 62919-2) [facility]2021-12-29 19:07:00 Test Item Value Reference Range Interpretation Comments BUN (test code = BUN) 18 7-22 [facility]2021-12-29 19:07:00 Test Item Value Reference Range Interpretation Comments Creatinine Lvl (test code = Creatinine 1.44 0.50-1.40 Lvl) [facility]2021-12-29 19:07:00 Test Item Value Reference Range Interpretation Comments Sodium Lvl (test code = Sodium Lvl) 132 135-145 [place] 807471-12-29 19:07:00 Test Item Value Reference Range Interpretation Comments Potassium Lvl (test code = Potassium 4.8 3.5-5.1 Lvl) [place] 807471-12-29 19:07:00 Test Item Value Reference Range Interpretation Comments Chloride Lvl (test code = Chloride Lvl) 99 95-109 [facility]2021-12-29 19:07:00 Test Item Value Reference Range Interpretation Comments CO2 (test code = CO2) 27 24-32 [place] 807471-12-29 19:07:00 Test Item Value Reference Range Interpretation Comments Calcium Lvl (test code = Calcium Lvl) 9.7 8.5-10.5 [place] 807471-12-29 19:07:00 Test Item Value Reference Range Interpretation Comments AGAP (test code = AGAP) 10.8 10.0-20.0 [place] 807471-12-29 19:07:00 Test Item Value Reference Range Interpretation Comments eGFR (test code = eGFR) 52 [facility]IPOGPXMHP3934-85-87 19:07:00 Test Item Value Reference Range Interpretation Comments Segs (test code = Segs) 57.5 45.0-75.0 [place] 908301-12-29 19:07:00 Test Item Value Reference Range Interpretation Comments Lymphocytes (test code = Lymphocytes) 28.0 20.0-40.0 [place] 908301-12-29 19:07:00 Test Item Value Reference Range Interpretation Comments Monocytes (test code = Monocytes) 9.6 2.0-12.0 [facility]ZbhsppbHCOCDLFWGJ2847-17-24 19:07:00 Test Item Value Reference Range Interpretation Comments Eosinophils (test code = 4.4 See_Comment [A utomated message] The Eosinophils) system which ge nerated this result tra nsmitted reference range : <=4.0. The reference r glenn was not used to int erpret this result as normal/abnormal . [place] 908301-12-29 19:07:00 Test Item Value Reference Range Interpretation Comments Basophils (test code = 0.5 See_Comment [Aut omated message] The Basophils) system which ge nerated this result tra nsmitted reference range : <=1.0. The reference r glenn was not used to int erpret this result as normal/abnormal . [facility] CenterIdoxvtkXXKWGOWSCH5541-41-02 19:07:00 Test Item Value Reference Range Interpretation Comments Neutrophils # (test code = Neutrophils 3.3 1.5-8.1 #) [facility] CenterFyybxbrAUWPKBXICT7697-91-23 19:07:00 Test Item Value Reference Range Interpretation Comments Lymphocytes # (test code = Lymphocytes 1.6 1.0-5.5 #) [facility] CenterGnuunkwYKTTLLQHBF0861-33-53 19:07:00 Test Item Value Reference Range Interpretation Comments Monocytes # (test code 0.5 See_Comment [Aut omated message] The = Monocytes #) system which generated this result tra nsmitted reference range : <=0.8. The reference r glenn was not used to int erpret this result as normal/abnormal . [facility] CenterWyvcsssFCESGEWVHR7674-25-64 19:07:00 Test Item Value Reference Range Interpretation Comments Eosinophils # (test code 0.2 See_Comment [A utomated message] The = Eosinophils #) system whic h generated this result tra nsmitted reference range : <=0.5. The reference r glenn was not used to int erpret this result as normal/abnormal . [facility] CenterAsbxoohPXVHLBZGNW8507-70-12 19:07:00 Test Item Value Reference Range Interpretation Comments WBC (test code = WBC) 5.7 3.7-10.4 [facility]GolgnnaDLFTQAICNF5837-48-18 19:07:00 Test Item Value Reference Range Interpretation Comments RBC (test code = RBC) 4.95 4.70-6.10 [facility] HospitalVhztezmTMADPQUQLK5473-54-06 19:07:00 Test Item Value Reference Range Interpretation Comments Hgb (test code = Hgb) 14.1 14.0-18.0 [facility]FzmovfpDJJSFQYGMW9790-42-99 19:07:00 Test Item Value Reference Range Interpretation Comments Hct (test code = Hct) 42.2 42.0-54.0 [facility] HospitalMsxyhoiOKZUFVQVRH8513-24-00 19:07:00 Test Item Value Reference Range Interpretation Comments MCV (test code = MCV) 85.3 80.0-94.0 [facility] HospitalKpdjxbaLSLBHXKDZC9704-40-12 19:07:00 Test Item Value Reference Range Interpretation Comments MCH (test code = MCH) 28.6 pg 27.0-31.0 [facility] HospitalHjvvxqeWIPUKJGIYZ4819-69-73 19:07:00 Test Item Value Reference Range Interpretation Comments MCHC (test code = MCHC) 33.5 32.0-36.0 [facility] HospitalFnqtmulSLOTLEBMQV8278-23-37 19:07:00 Test Item Value Reference Range Interpretation Comments RDW (test code = RDW) 14.7 11.5-14.5 [facility] HospitalYrnzhzeIDDYNVQKYD3440-43-04 19:07:00 Test Item Value Reference Range Interpretation Comments Platelet (test code = Platelet) 219 133-450 [facility] HospitalSsexsnlACZBCHLDSN4601-52-95 19:07:00 Test Item Value Reference Range Interpretation Comments MPV (test code = MPV) 8.2 7.4-10.4 [facility] FHHWNRNDA1129-02-07 19:07:00 Test Item Value Reference Range Interpretation Comments Hgb A1C (test code = Hgb A1C) 6.4 [facility] NUKIP8769-56-27 19:07:00 Test Item Value Reference Range Interpretation Comments Glucose Lvl (test code = Glucose Lvl) 153 70-99 [facility] JOGXP1778-01-11 19:07:00 Test Item Value Reference Range Interpretation Comments BUN (test code = BUN) 18 7-22 [place] 807471-12-29 19:07:00 Test Item Value Reference Range Interpretation Comments Creatinine Lvl (test code = Creatinine 1.44 0.50-1.40 Lvl) [facility]2021-12-29 19:07:00 Test Item Value Reference Range Interpretation Comments Sodium Lvl (test code = Sodium Lvl) 132 135-145 [place] 807471-12-29 19:07:00 Test Item Value Reference Range Interpretation Comments Potassium Lvl (test code = Potassium 4.8 3.5-5.1 Lvl) [facility]2021-12-29 19:07:00 Test Item Value Reference Range Interpretation Comments Chloride Lvl (test code = Chloride Lvl) 99 95-109 [place] 807471-12-29 19:07:00 Test Item Value Reference Range Interpretation Comments CO2 (test code = CO2) 27 24-32 [place] 807471-12-29 19:07:00 Test Item Value Reference Range Interpretation Comments Calcium Lvl (test code = Calcium Lvl) 9.7 8.5-10.5 [facility]2021-12-29 19:07:00 Test Item Value Reference Range Interpretation Comments Glucose Lvl (test code = Glucose Lvl) 153 70-99 [facility]2021-12-29 19:07:00 Test Item Value Reference Range Interpretation Comments BUN (test code = BUN) 18 722 [facility]2021-12-29 19:07:00 Test Item Value Reference Range Interpretation Comments Creatinine Lvl (test code = Creatinine 1.44 0.50-1.40 Lvl) [facility]2021-12-29 19:07:00 Test Item Value Reference Range Interpretation Comments Sodium Lvl (test code = Sodium Lvl) 132 135-145 [place] 807471-12-29 19:07:00 Test Item Value Reference Range Interpretation Comments Potassium Lvl (test code = Potassium 4.8 3.5-5.1 Lvl) [facility]2021-12-29 19:07:00 Test Item Value Reference Range Interpretation Comments Chloride Lvl (test code = Chloride Lvl) 99 95-109 [place] 807471-12-29 19:07:00 Test Item Value Reference Range Interpretation Comments CO2 (test code = CO2) 27 24-32 [facility]2021-12-29 19:07:00 Test Item Value Reference Range Interpretation Comments Calcium Lvl (test code = Calcium Lvl) 9.7 8.5-10.5 [facility]2021-12-29 19:07:00 Test Item Value Reference Range Interpretation Comments AGAP (test code = AGAP) 10.8 10.0-20.0 [place] 807471-12-29 19:07:00 Test Item Value Reference Range Interpretation Comments eGFR (test code = eGFR) 52 [place] 807471-12-29 19:07:00 Test Item Value Reference Range Interpretation Comments AGAP (test code = AGAP) 10.8 10.0-20.0 [place] 908301-12-29 19:07:00 Test Item Value Reference Range Interpretation Comments Segs (test code = Segs) 57.5 45.0-75.0 [place] 908301-12-29 19:07:00 Test Item Value Reference Range Interpretation Comments Lymphocytes (test code = Lymphocytes) 28.0 20.0-40.0 [place] 908301-12-29 19:07:00 Test Item Value Reference Range Interpretation Comments Monocytes (test code = Monocytes) 9.6 2.0-12.0 [facility] CenterCjvcfldDLIZWKSOAI0235-67-93 19:07:00 Test Item Value Reference Range Interpretation Comments Eosinophils (test code = 4.4 See_Comment [A utomated message] The Eosinophils) system which ge nerated this result tra nsmitted reference range : <=4.0. The reference r glenn was not used to int erpret this result as normal/abnormal . [place] 908301-12-29 19:07:00 Test Item Value Reference Range Interpretation Comments Basophils (test code = 0.5 See_Comment [Aut omated message] The Basophils) system which ge nerated this result tra nsmitted reference range : <=1.0. The reference r glenn was not used to int erpret this result as normal/abnormal . [place] 908301-12-29 19:07:00 Test Item Value Reference Range Interpretation Comments Neutrophils # (test code = Neutrophils 3.3 1.5-8.1 #) [place] 908301-12-29 19:07:00 Test Item Value Reference Range Interpretation Comments Lymphocytes # (test code = Lymphocytes 1.6 1.0-5.5 #) [place] 908301-12-29 19:07:00 Test Item Value Reference Range Interpretation Comments Monocytes # (test code 0.5 See_Comment [Aut omated message] The = Monocytes #) system which generated this result tra nsmitted reference range : <=0.8. The reference r glenn was not used to int erpret this result as normal/abnormal . [place] 908301-12-29 19:07:00 Test Item Value Reference Range Interpretation Comments Eosinophils # (test code 0.2 See_Comment [A utomated message] The = Eosinophils #) system whic h generated this result tra nsmitted reference range : <=0.5. The reference r glenn was not used to int erpret this result as normal/abnormal . [place] 908301-12-29 19:07:00 Test Item Value Reference Range Interpretation Comments WBC (test code = WBC) 5.7 3.7-10.4 [facility]2021-12-29 19:07:00 Test Item Value Reference Range Interpretation Comments eGFR (test code = eGFR) 52 [place] 908301-12-29 19:07:00 Test Item Value Reference Range Interpretation Comments RBC (test code = RBC) 4.95 4.70-6.10 [place] 908301-12-29 19:07:00 Test Item Value Reference Range Interpretation Comments Hgb (test code = Hgb) 14.1 14.0-18.0 [place] 908301-12-29 19:07:00 Test Item Value Reference Range Interpretation Comments Hct (test code = Hct) 42.2 42.0-54.0 [place] [address]-12-29 19:07:00 Test Item Value Reference Range Interpretation Comments MCV (test code = MCV) 85.3 80.0-94.0 [place] 908301-12-29 19:07:00 Test Item Value Reference Range Interpretation Comments MCH (test code = MCH) 28.6 pg 27.0-31.0 [place] 908301-12-29 19:07:00 Test Item Value Reference Range Interpretation Comments MCHC (test code = MCHC) 33.5 32.0-36.0 [facility] HospitalBwspfzqWNEXANXFVJ8930-75-36 19:07:00 Test Item Value Reference Range Interpretation Comments RDW (test code = RDW) 14.7 11.5-14.5 [facility] HospitalRadmpruYNYIFZGFMJ0894-52-98 19:07:00 Test Item Value Reference Range Interpretation Comments Platelet (test code = Platelet) 219 133-450 [facility] HospitalYvqwnwfAZTBINMLWX6290-56-89 19:07:00 Test Item Value Reference Range Interpretation Comments MPV (test code = MPV) 8.2 7.4-10.4 [facility] HGRHSXGZT3065-74-09 19:07:00 Test Item Value Reference Range Interpretation Comments Hgb A1C (test code = Hgb A1C) 6.4 [facility] HospitalNnxovdbZZLMIRGLHS6929-10-00 19:07:00 Test Item Value Reference Range Interpretation Comments Segs (test code = Segs) 57.5 45.0-75.0 [facility] HospitalBcvsjyjESYKJSNLPW1200-58-32 19:07:00 Test Item Value Reference Range Interpretation Comments Lymphocytes (test code = Lymphocytes) 28.0 20.0-40.0 [facility] HospitalXxhtnykEMCUOTVVQO9927-88-18 19:07:00 Test Item Value Reference Range Interpretation Comments Monocytes (test code = Monocytes) 9.6 2.0-12.0 [facility] HospitalFnnhzleDNDSKLSKTR1099-08-84 19:07:00 Test Item Value Reference Range Interpretation Comments Eosinophils (test code = 4.4 See_Comment [A utomated message] The Eosinophils) system which ge nerated this result tra nsmitted reference range : <=4.0. The reference r glenn was not used to int erpret this result as normal/abnormal . [facility] HospitalYyhqreaPJESTEGXAG3084-10-42 19:07:00 Test Item Value Reference Range Interpretation Comments Basophils (test code = 0.5 See_Comment [Aut omated message] The Basophils) system which ge nerated this result tra nsmitted reference range : <=1.0. The reference r glenn was not used to int erpret this result as normal/abnormal . [facility] HospitalFmpjaofRFKRLDRNRC8061-59-50 19:07:00 Test Item Value Reference Range Interpretation Comments Neutrophils # (test code = Neutrophils 3.3 1.5-8.1 #) [place] 908301-12-29 19:07:00 Test Item Value Reference Range Interpretation Comments Lymphocytes # (test code = Lymphocytes 1.6 1.0-5.5 #) [facility] CenterVtdtzicHWESYBJQDC4425-05-08 19:07:00 Test Item Value Reference Range Interpretation Comments Monocytes # (test code 0.5 See_Comment [Aut omated message] The = Monocytes #) system which generated this result tra nsmitted reference range : <=0.8. The reference r glenn was not used to int erpret this result as normal/abnormal . [facility] CenterWpuhwwfWAYNXPZFLH2060-79-75 19:07:00 Test Item Value Reference Range Interpretation Comments Eosinophils # (test code 0.2 See_Comment [A utomated message] The = Eosinophils #) system whic h generated this result tra nsmitted reference range : <=0.5. The reference r glenn was not used to int erpret this result as normal/abnormal . [facility] CenterZjxclqeEBWHDKTPEL1219-69-14 19:07:00 Test Item Value Reference Range Interpretation Comments WBC (test code = WBC) 5.7 3.7-10.4 [place] 908301-12-29 19:07:00 Test Item Value Reference Range Interpretation Comments RBC (test code = RBC) 4.95 4.70-6.10 [facility] CenterFfwwtvhJNQVPHEJXR8483-33-54 19:07:00 Test Item Value Reference Range Interpretation Comments Hgb (test code = Hgb) 14.1 14.0-18.0 [facility] CenterLjdfzrwFFGYTTWZWG0134-13-04 19:07:00 Test Item Value Reference Range Interpretation Comments Hct (test code = Hct) 42.2 42.0-54.0 [place] 908301-12-29 19:07:00 Test Item Value Reference Range Interpretation Comments MCV (test code = MCV) 85.3 80.0-94.0 [place] 908301-12-29 19:07:00 Test Item Value Reference Range Interpretation Comments MCH (test code = MCH) 28.6 pg 27.0-31.0 [place] 908301-12-29 19:07:00 Test Item Value Reference Range Interpretation Comments MCHC (test code = MCHC) 33.5 32.0-36.0 [place] 908301-12-29 19:07:00 Test Item Value Reference Range Interpretation Comments RDW (test code = RDW) 14.7 11.5-14.5 [facility] HospitalRaiwattLOMLUHPODA6587-14-21 19:07:00 Test Item Value Reference Range Interpretation Comments Platelet (test code = Platelet) 219 133-450 [facility] HospitalJdikgzgRTNICRDZVV3688-07-81 19:07:00 Test Item Value Reference Range Interpretation Comments MPV (test code = MPV) 8.2 7.4-10.4 [facility] HZBPOHMGY5556-65-44 19:07:00 Test Item Value Reference Range Interpretation Comments Hgb A1C (test code = Hgb A1C) 6.4 [facility] LMCFE0044-11-12 19:07:00 Test Item Value Reference Range Interpretation Comments Glucose Lvl (test code = Glucose Lvl) 153 70-99 [facility]2021-12-29 19:07:00 Test Item Value Reference Range Interpretation Comments BUN (test code = BUN) 18 7-22 [facility]2021-12-29 19:07:00 Test Item Value Reference Range Interpretation Comments Creatinine Lvl (test code = Creatinine 1.44 0.50-1.40 Lvl) [facility]2021-12-29 19:07:00 Test Item Value Reference Range Interpretation Comments Sodium Lvl (test code = Sodium Lvl) 132 135-145 [facility]2021-12-29 19:07:00 Test Item Value Reference Range Interpretation Comments Potassium Lvl (test code = Potassium 4.8 3.5-5.1 Lvl) [facility]2021-12-29 19:07:00 Test Item Value Reference Range Interpretation Comments Chloride Lvl (test code = Chloride Lvl) 99 95-109 [facility]2021-12-29 19:07:00 Test Item Value Reference Range Interpretation Comments CO2 (test code = CO2) 27 24-32 [facility]2021-12-29 19:07:00 Test Item Value Reference Range Interpretation Comments Calcium Lvl (test code = Calcium Lvl) 9.7 8.5-10.5 [facility]2021-12-29 19:07:00 Test Item Value Reference Range Interpretation Comments AGAP (test code = AGAP) 10.8 10.0-20.0 [facility]2021-12-29 19:07:00 Test Item Value Reference Range Interpretation Comments eGFR (test code = eGFR) 52 [place] 908301-12-29 19:07:00 Test Item Value Reference Range Interpretation Comments Segs (test code = Segs) 57.5 45.0-75.0 [place] 908301-12-29 19:07:00 Test Item Value Reference Range Interpretation Comments Lymphocytes (test code = Lymphocytes) 28.0 20.0-40.0 [place] 908301-12-29 19:07:00 Test Item Value Reference Range Interpretation Comments Monocytes (test code = Monocytes) 9.6 2.0-12.0 [place] 908301-12-29 19:07:00 Test Item Value Reference Range Interpretation Comments Eosinophils (test code = 4.4 See_Comment [A utomated message] The Eosinophils) system which ge nerated this result tra nsmitted reference range : <=4.0. The reference r glenn was not used to int erpret this result as normal/abnormal . [place] 908301-12-29 19:07:00 Test Item Value Reference Range Interpretation Comments Basophils (test code = 0.5 See_Comment [Aut omated message] The Basophils) system which ge nerated this result tra nsmitted reference range : <=1.0. The reference r glenn was not used to int erpret this result as normal/abnormal . [place] 908301-12-29 19:07:00 Test Item Value Reference Range Interpretation Comments Neutrophils # (test code = Neutrophils 3.3 1.5-8.1 #) [place] 908301-12-29 19:07:00 Test Item Value Reference Range Interpretation Comments Lymphocytes # (test code = Lymphocytes 1.6 1.0-5.5 #) [place] [address]-12-29 19:07:00 Test Item Value Reference Range Interpretation Comments Monocytes # (test code 0.5 See_Comment [Aut omated message] The = Monocytes #) system which generated this result tra nsmitted reference range : <=0.8. The reference r glenn was not used to int erpret this result as normal/abnormal . [place] 908301-12-29 19:07:00 Test Item Value Reference Range Interpretation Comments Eosinophils # (test code 0.2 See_Comment [A utomated message] The = Eosinophils #) system whic h generated this result tra nsmitted reference range : <=0.5. The reference r glenn was not used to int erpret this result as normal/abnormal . [facility] HospitalJrunasjCEDRZOCHEY7597-95-97 19:07:00 Test Item Value Reference Range Interpretation Comments WBC (test code = WBC) 5.7 3.7-10.4 [facility] HospitalPfdtypxPAXRPHDPLS4670-93-77 19:07:00 Test Item Value Reference Range Interpretation Comments RBC (test code = RBC) 4.95 4.70-6.10 [facility] HospitalWwbtkjzXVOTYZSOFO1657-09-81 19:07:00 Test Item Value Reference Range Interpretation Comments Hgb (test code = Hgb) 14.1 14.0-18.0 [facility] HospitalMcymhpfPBSGISMOPU4673-45-90 19:07:00 Test Item Value Reference Range Interpretation Comments Hct (test code = Hct) 42.2 42.0-54.0 [facility] HospitalGgermnnFLFQZXDRIS2660-84-24 19:07:00 Test Item Value Reference Range Interpretation Comments MCV (test code = MCV) 85.3 80.0-94.0 [facility] HospitalOghlmysUWQALFCPHA5607-43-72 19:07:00 Test Item Value Reference Range Interpretation Comments MCH (test code = MCH) 28.6 pg 27.0-31.0 [facility] HospitalLxodxizVSEFEOFQOH2156-23-99 19:07:00 Test Item Value Reference Range Interpretation Comments MCHC (test code = MCHC) 33.5 32.0-36.0 [facility] HospitalOrxxuusEKRKOIBHIH1368-96-97 19:07:00 Test Item Value Reference Range Interpretation Comments RDW (test code = RDW) 14.7 11.5-14.5 [facility] HospitalAdeghorZWBZLBJWNQ9719-72-53 19:07:00 Test Item Value Reference Range Interpretation Comments Platelet (test code = Platelet) 219 133-450 [facility] HospitalHzgzqppYTTYVYDLVM0553-37-86 19:07:00 Test Item Value Reference Range Interpretation Comments MPV (test code = MPV) 8.2 7.4-10.4 [facility] SIBHGNVNU5007-53-79 19:07:00 Test Item Value Reference Range Interpretation Comments Hgb A1C (test code = Hgb A1C) 6.4 [place] 807471-12-29 19:07:00 Test Item Value Reference Range Interpretation Comments Glucose Lvl (test code = Glucose Lvl) 153 70-99 [place] 807471-12-29 19:07:00 Test Item Value Reference Range Interpretation Comments BUN (test code = BUN) 18 7-22 [place] 807471-12-29 19:07:00 Test Item Value Reference Range Interpretation Comments Creatinine Lvl (test code = Creatinine 1.44 0.50-1.40 Lvl) [place] 807471-12-29 19:07:00 Test Item Value Reference Range Interpretation Comments Sodium Lvl (test code = Sodium Lvl) 132 135-145 [place] 807471-12-29 19:07:00 Test Item Value Reference Range Interpretation Comments Potassium Lvl (test code = Potassium 4.8 3.5-5.1 Lvl) [place] 807471-12-29 19:07:00 Test Item Value Reference Range Interpretation Comments Chloride Lvl (test code = Chloride Lvl) 99 95-109 [place] 807471-12-29 19:07:00 Test Item Value Reference Range Interpretation Comments CO2 (test code = CO2) 27 24-32 [place] 807471-12-29 19:07:00 Test Item Value Reference Range Interpretation Comments Calcium Lvl (test code = Calcium Lvl) 9.7 8.5-10.5 [place] 807471-12-29 19:07:00 Test Item Value Reference Range Interpretation Comments AGAP (test code = AGAP) 10.8 10.0-20.0 [place] 807471-12-29 19:07:00 Test Item Value Reference Range Interpretation Comments eGFR (test code = eGFR) 52 [place] 908301-12-29 19:07:00 Test Item Value Reference Range Interpretation Comments Segs (test code = Segs) 57.5 45.0-75.0 [place] 908301-12-29 19:07:00 Test Item Value Reference Range Interpretation Comments Lymphocytes (test code = Lymphocytes) 28.0 20.0-40.0 [place] 908301-12-29 19:07:00 Test Item Value Reference Range Interpretation Comments Monocytes (test code = Monocytes) 9.6 2.0-12.0 [place] 908301-12-29 19:07:00 Test Item Value Reference Range Interpretation Comments Eosinophils (test code = 4.4 See_Comment [A utomated message] The Eosinophils) system which ge nerated this result tra nsmitted reference range : <=4.0. The reference r glenn was not used to int erpret this result as normal/abnormal . [id number] 19:07:00 Test Item Value Reference Range Interpretation Comments Basophils (test code = 0.5 See_Comment [Aut omated message] The Basophils) system which ge nerated this result tra nsmitted reference range : <=1.0. The reference r glenn was not used to int erpret this result as normal/abnormal . [facility] [id number] 19:07:00 Test Item Value Reference Range Interpretation Comments Neutrophils # (test code = Neutrophils 3.3 1.5-8.1 #) [facility] [id number] 19:07:00 Test Item Value Reference Range Interpretation Comments Lymphocytes # (test code = Lymphocytes 1.6 1.0-5.5 #) [facility] CenterGucasgwCVXNPKRCOX1875-25-78 19:07:00 Test Item Value Reference Range Interpretation Comments Monocytes # (test code 0.5 See_Comment [Aut omated message] The = Monocytes #) system which generated this result tra nsmitted reference range : <=0.8. The reference r glenn was not used to int erpret this result as normal/abnormal . [facility] [id number] 19:07:00 Test Item Value Reference Range Interpretation Comments Eosinophils # (test code 0.2 See_Comment [A utomated message] The = Eosinophils #) system whic h generated this result tra nsmitted reference range : <=0.5. The reference r glenn was not used to int erpret this result as normal/abnormal . [facility] Cent[id number] 19:07:00 Test Item Value Reference Range Interpretation Comments WBC (test code = WBC) 5.7 3.7-10.4 [facility] [id number] 19:07:00 Test Item Value Reference Range Interpretation Comments RBC (test code = RBC) 4.95 4.70-6.10 [facility] [id number] 19:07:00 Test Item Value Reference Range Interpretation Comments Hgb (test code = Hgb) 14.1 14.0-18.0 [facility] CampusCnibytpYKMSTMYTOI4819-20-80 19:07:00 Test Item Value Reference Range Interpretation Comments Hct (test code = Hct) 42.2 42.0-54.0 [facility] CampusReyjmatABKTWFJMZQ2638-03-90 19:07:00 Test Item Value Reference Range Interpretation Comments MCV (test code = MCV) 85.3 80.0-94.0 [facility] CampusWbcacwiANTNIJHIXA4845-69-22 19:07:00 Test Item Value Reference Range Interpretation Comments MCH (test code = MCH) 28.6 pg 27.0-31.0 [facility] Camp[id number] 19:07:00 Test Item Value Reference Range Interpretation Comments MCHC (test code = MCHC) 33.5 32.0-36.0 [id number] 19:07:00 Test Item Value Reference Range Interpretation Comments RDW (test code = RDW) 14.7 11.5-14.5 [facility] H[id number] 19:07:00 Test Item Value Reference Range Interpretation Comments Platelet (test code = Platelet) 219 133-450 [facility] HospitalNskopnrUPDPZWFWPV1791-05-19 19:07:00 Test Item Value Reference Range Interpretation Comments MPV (test code = MPV) 8.2 7.4-10.4 [facility]SPECIAL [id number] 19:07:00 Test Item Value Reference Range Interpretation Comments Hgb A1C (test code = Hgb A1C) 6.4 [facility] HospitalCHEM [id number] 19:07:00 Test Item Value Reference Range Interpretation Comments Glucose Lvl (test code = Glucose Lvl) 153 70-99 [facility] HospitalSARS-COV 2 AntigenSARS-COV 2 Antigen
--- NOTE | 2023-02-12 15:30 | RAD REPORT ---
EXAM DESCRIPTION: RAD - Chest Single View - 02/12/2023 3:17 pm CLINICAL HISTORY: DYSPNEA Chest pain. COMPARISON: Chest Single View dated 02/07/2023; Chest Single View dated 02/01/2023; Chest Single View d ated 11/30/2022; Chest Single View dated 11/25/2022 FINDINGS: Portable technique limits examination quality. The lungs are emphysematous but grossly clear. The heart is normal in size. No displaced fractures. IMPRESSION: No acute intrathoracic process suspected.
[2023-02-12] MEDS ORDERED: NA CHLORIDE 0.9% 1,000 ML ONE (15:35)
[2023-02-12 15:52] LABS: Absolute Lymphocytes (CBC) 1.9 K/uL (0.7-4.9); Hematocrit 41.8 % (39.6-49.0); Lymphocytes % 28.3 % (15.3-44.8); MCV 84.8 fL (80-100); MPV 7.8 fL (7.6-11.3); RBC Red Blood Cell Count 4.93 M/uL (4.33-5.43)
[2023-02-12 15:53] LABS: Protime INR 1.03
[2023-02-12 15:53] LABS: Specific Gravity 1.017 (1.005-1.030); Urine Bilirubin NEGATIVE (Negative); Urine Blood Negative (Negative); Urine Clarity Clear (Clear); Urine Color Light-Yellow (Yellow); Urine Glucose 2+ (Negative); Urine Protein NEGATIVE (Negative); Urine Urobilinogen Normal (Normal)
[2023-02-12 16:06] LABS: Albumin 3.4 g/dL (3.4-5.0); Bilirubin Direct 0.1 mg/dL (0-0.2); Bilirubin Indirect, Calculated 0.4 mg/dL (0.2-0.8); Bilirubin Total 0.5 mg/dL (0.2-1.0); Magnesium 2.1 mg/dL (1.6-2.4); Potassium 4.1 mEq/L (3.5-5.1); Protein, Total 7.3 g/dL (6.4-8.2); Troponin High Sensitivity 5.1 pg/mL (<58.9)
--- NOTE | 2023-02-12 16:31 | RAD REPORT ---
EXAM DESCRIPTION: CTAbdomen Pelvis W Contrast - 02/12/2023 4:23 pm CLINICAL HISTORY: Abdominal pain. ABD PAIN COMPARISON: Abdomen Pelvis W Contrast dated 12/04/2021; Abdomen Pelvis W Contrast dated TECHNIQUE: Biphasic CT imaging of the abdomen and pelvis was performed with 100 ml non-ionic IV cont rast. All CT scans are performed using dose optimization technique as appropriate and may include automated exposure control or mA/KV adjustment according to patient size. FINDINGS: The lung bases are clear.Small hiatal hernia. The liver demonstrates diffuse fatty infiltration. Cholecystectomy clips. Spleen, pancreas, adrenal g lands and kidneys are within normal limits. Benign left renal cyst. IVC filter. No bowel obstruction, free air, free fluid or abscess. There is a large amount of stool in the colon. Sigmoid diverticulosis coli without diverticulitis. Nonvisualized appendix. Mildly enlarged prostate gland. No evidence of significant lymphadenopathy. Small fat containing left inguinal hernia. Postsurgical lumbar spine. Vertebroplasty cement noted lower thoracic vertebral body. IMPRESSION: Significant stool retained throughout the colon. Mild fatty liver.
--- NOTE | 2023-02-12 16:39 | ER ---
Nurse's Notes [facility] Name: Moshe Ewing Age: 62 yrs Sex: Male : 1960 Arrival Date: 02/12/2023 Time: 14:15 Bed 5 Private MD: Diagnosis: Abdominal tenderness;Constipation Presentation: 02/12 14:17 Chief complaint: EMS states: toned out to patient home for LUQ pain since 0400 this ld1 morning. Coronavirus screen: At this time, the client does not indicate any symptoms associated with coronavirus-19. Ebola Screen: No symptoms or risks identified at this time. Initial Sepsis Screen: Does the patient meet any 2 criteria? No. Patient's initial sepsis screen is negative. Does the patient have a suspected source of infection? No. Patient's initial sepsis screen is negative. Risk Assessment: Do you want to hurt yourself or someone else? Patient reports no desire to harm self or others. Onset of symptoms was February 12, 2023. 14:17 Method Of Arrival: EMS: [facility] ld1 14:17 Acuity: MYRIAM 3 ld1 14:20 Care prior to arrival: Medication(s) given: Fentanyl 100mg IVP. ld1 Triage Assessment: 14:18 General: Appears in no apparent distress. uncomfortable, Behavior is calm, cooperative, ld1 appropriate for age. Pain: Complains of pain in left upper quadrant Pain does not radiate. Pain currently is 10 out of 10 on a pain scale. Quality of pain is described as sharp, shooting, throbbing, Pain began 4 hours ago. Is continuous. EENT: No signs and/or symptoms were reported regarding the EENT system. Neuro: Level of Consciousness is awake, alert, obeys commands, Oriented to person, place, time, situation. Cardiovascular: Capillary refill < 3 seconds Patient's skin is warm and dry. Respiratory: Airway is patent Respiratory effort is even, unlabored. GI: Abdomen is round non-distended, Reports upper abdominal pain. : No signs and/or symptoms were reported regarding the genitourinary system. Derm: No signs and/or symptoms reported regarding the dermatologic system. Musculoskeletal: No signs and/or symptoms reported regarding the musculoskeletal system. Historical: - Allergies: 14:18 amlodipine; ld1 14:18 lidocaine patch; ld1 - PMHx: 14:18 Diabetes - NIDDM; DVT; Hypertension; Hypercholesterolemia; Hypothyroidism; ld1 - PSHx: 14:18 Cholecystectomy; foot/shoulder SX; back sx; L hand SX with plates placed; cadriac ld1 stent; R BKA; stimulator R back for legs; - Immunization history:: Adult Immunizations up to date, Client reports receiving the 2nd dose of the Covid vaccine. - Social history:: Smoking status: Patient denies any tobacco usage or history of. Patient/guardian denies using alcohol. Screenin:[address] [facility] ED Fall Risk Assessment (Adult) History of falling in the last 3 months, mb9 including since admission No falls in past 3 months (0 pts) Confusion or Disorientation No (0 pts) Intoxicated or Sedated No (0 pts) Impaired Gait No (0 pts) Mobility Assist Device Used No (0 pt) Altered Elimination No (0 pt) Score/Fall Risk Level 0 - 2 = Low Risk Oriented to surroundings, Maintained a safe environment, Educated pt \T\ family on fall prevention, incl call for assistance when getting out of bed. Abuse screen: Denies threats or abuse. Nutritional screening: No deficits noted. Tuberculosis screening: No symptoms or risk factors identified. Assessment: 15:09 Reassessment: pt placed in ER room. mb9 15:36 General: Appears in no apparent distress. Pain: Complains of pain in left lower mb9 quadrant and abdomen and left upper quadrant Pain radiates to back. Neuro: Level of Consciousness is awake, alert, obeys commands, Oriented to person, place, time, situation, Appropriate for age. Cardiovascular: Rhythm is regular. Respiratory: Airway is patent Respiratory effort is even, unlabored, Respiratory pattern is regular, symmetrical. GI: Bowel sounds present X 4 quads. Abd is soft Abdomen is tender to palpation in left lower quadrant and left upper quadrant. Derm: Skin is pink, warm \T\ dry. Musculoskeletal: Range of motion: intact in all extremities. 16:53 Reassessment: No changes from previously documented assessment. Patient and/or family mb9 updated on plan of care and expected duration. Pain level reassessed. Patient is alert, oriented x 3, equal unlabored respirations, skin warm/dry/pink. Vital Signs: 14:17 BP 115 / 72; Pulse 80; Resp 18; Temp 98.3(O); Pulse Ox 96% on R/A; Weight 90.72 kg; ld1 Height 5 ft. 9 in. ; Pain 10/10; 16:53 BP 110 / 72; Pulse 74; Resp 16; Pulse Ox 98% ; mb9 14:17 Body Mass Index 29.53 (90.72 kg, 175.26 cm) ld1 14:17 Pain Scale: Adult ld1 ED Course: 14:16 Patient arrived in ED. ld1 14:18 Triage completed. ld1 14:18 Arm band placed on right wrist. ld1 14:20 Chris Plummer MD is Attending Physician. lamont 14:21 Maintain EMS IV. Dressing intact. Good blood return noted. Site clean \T\ dry. Gauge \T\ ld 1 site: 20G LAC. 15:09 Stephenie Heath, RN is Primary Nurse. mb9 15:18 XRAY Chest (1 view) In Process Unspecified. EDMS 15:27 Basic Metabolic Panel Sent. mb9 15:27 CBC with Diff Sent. mb9 15:27 LFT's Sent. mb9 15:28 Radiology exam delayed due to lab results not completed at this time. (BUN/Creatinine). jg10 15:28 Magnesium Sent. mb9 15:28 NT PRO-BNP Sent. mb9 15:28 PT-INR Sent. mb9 15:28 Troponin HS Sent. mb9 15:28 Lipase Sent. mb9 15:35 Urinalysis w/ reflexes Sent. mb9 15:45 EKG done, by ED staff, reviewed by Chris Plummer MD. mb9 15:46 Placed in gown. Bed in low position. Call light in reach. Side rails up X 1. Client mb9 placed on continuous cardiac and pulse oximetry monitoring. NIBP monitoring applied. 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 15:46 No provider procedures requiring assistance completed. mb9 16:25 CT Abd/Pelvis - IV Contrast Only In Process Unspecified. EDMS 16:38 Lloyd Acharya MD is Referral Physician. lamont 16:54 IV discontinued, intact, bleeding controlled, No redness/swelling at site. Pressure mb9 dressing applied. Administered Medications: 15:35 Drug: NS 0.9% IV 1000 ml Route: IV; Rate: 125 ml/hr; Site: left forearm; mb9 Medication: 15:46 VIS not applicable for this client. mb9 Outcome: 16:38 Discharge ordered by MD. miguel 16:53 Discharged to home ambulatory. mb9 16:53 Condition: stable 16:53 Discharge instructions given to patient, Instructed on discharge instructions, follow up and referral plans. Demonstrated understanding of instructions, follow-up care, medications, Prescriptions given X 4. 16:54 Patient left the ED. mb9 Signatures: Dispatcher [employer] EDDE Chris Plummer MD MD cha Sims, Lauren RN RN [email or web address] Ashlyn AlarconStephenie Ferrari RN RN mb9
--- NOTE | 2023-02-12 16:39 | EDPHYS ---
Physician Documentation [facility] Name: Moshe Ewing Age: 62 yrs Sex: Male : 1960 Arrival Date: 02/12/2023 Time: 14:15 Bed 5 Private MD: ED Physician Chris Plummer HPI: 02/12 15:18 This 62 yrs old Male presents to ER via EMS with complaints of Abdominal Pain.lamont 15:18 The patient presents with abdominal pain in the left upper quadrant, in the left lower lamont quadrant, abdominal distention in the upper abdomen, in the lower abdomen. Onset: The symptoms/episode began/occurred 2 day(s) ago. The symptoms do not radiate. Associated signs and symptoms: none. The symptoms are described as crampy. Modifying factors: The symptoms are alleviated by nothing, the symptoms are aggravated by nothing. Severity of pain: At its worst the pain was moderate in the emergency department the pain has improved moderately. The patient has not experienced similar symptoms in the past, It is unknown whether or not the patient has had similar symptoms in the past. Historical: - Allergies: 14:18 amlodipine; ld1 14:18 lidocaine patch; ld1 - PMHx: 14:18 Diabetes - NIDDM; DVT; Hypertension; Hypercholesterolemia; Hypothyroidism; ld1 - PSHx: 14:18 Cholecystectomy; foot/shoulder SX; back sx; L hand SX with plates placed; cadriac ld1 stent; R BKA; stimulator R back for legs; - Immunization history:: Adult Immunizations up to date, Client reports receiving the 2nd dose of the Covid vaccine. - Social history:: Smoking status: Patient denies any tobacco usage or history of. Patient/guardian denies using alcohol. ROS: 15:20 Constitutional: Negative for fever, chills, and weight loss, Eyes: Negative for injury, lamont pain, redness, and discharge, ENT: Negative for injury, pain, and discharge, Neck: Negative for injury, pain, and swelling, Cardiovascular: Negative for chest pain, palpitations, and edema, Respiratory: Negative for shortness of breath, cough, wheezing, and pleuritic chest pain, Back: Negative for injury and pain, : Negative for injury, bleeding, discharge, and swelling, MS/Extremity: Negative for injury and deformity, Skin: Negative for injury, rash, and discoloration, Neuro: Negative for headache, weakness, numbness, tingling, and seizure, Psych: Negative for depression, anxiety, suicide ideation, homicidal ideation, and hallucinations, Allergy/Immunology: Negative for hives, rash, and allergies, Endocrine: Negative for neck swelling, polydipsia, polyuria, polyphagia, and marked weight changes. 15:20 Abdomen/GI: Positive for abdominal pain, of the anterior aspect of left lateral abdomen, posterior aspect of left lateral abdomen, left upper quadrant and left lower quadrant. Exam: 15:20 Constitutional: This is a well developed, well nourished patient who is awake, alert, lamont and in no acute distress. Head/Face: Normocephalic, atraumatic. Eyes: Pupils equal round and reactive to light, extra-ocular motions intact. Lids and lashes normal. Conjunctiva and sclera are non-icteric and not injected. Cornea within normal limits. Periorbital areas with no swelling, redness, or edema. ENT: Nares patent. No nasal discharge, no septal abnormalities noted. Tympanic membranes are normal and external auditory canals are clear. Oropharynx with no redness, swelling, or masses, exudates, or evidence of obstruction, uvula midline. Mucous membranes moist. Neck: Trachea midline, no thyromegaly or masses palpated, and no cervical lymphadenopathy. Supple, full range of motion without nuchal rigidity, or vertebral point tenderness. No Meningismus. Chest/axilla: Normal chest wall appearance and motion. Nontender with no deformity. No lesions are appreciated. Cardiovascular: Regular rate and rhythm with a normal S1 and S2. No gallops, murmurs, or rubs. Normal PMI, no JVD. No pulse deficits. Respiratory: Lungs have equal breath sounds bilaterally, clear to auscultation and percussion. No rales, rhonchi or wheezes noted. No increased work of breathing, no retractions or nasal flaring. Back: No spinal tenderness. No costovertebral tenderness. Full range of motion. Male : Normal genitalia with no discharge or lesions. Skin: Warm, dry with normal turgor. Normal color with no rashes, no lesions, and no evidence of cellulitis. MS/ Extremity: Pulses equal, no cyanosis. Neurovascular intact. Full, normal range of motion. Neuro: Awake and alert, GCS 15, oriented to person, place, time, and situation. Cranial nerves II-XII grossly intact. Motor strength 5/5 in all extremities. Sensory grossly intact. Cerebellar exam normal. Normal gait. Psych: Awake, alert, with orientation to person, place and time. Behavior, mood, and affect are within normal limits. 15:20 Abdomen/GI: Inspection: abdomen appears normal, Bowel sounds: normal, Palpation: mild abdominal tenderness, moderate abdominal tenderness, in the anterior aspect of left lateral abdomen and posterior aspect of left lateral abdomen, Liver: no appreciated palpable abnormalities, Hernia: not appreciated. 16:16 ECG was reviewed by the Attending Physician. [facility] Vital Signs: 14:17 BP 115 / 72; Pulse 80; Resp 18; Temp 98.3(O); Pulse Ox 96% on R/A; Weight 90.72 kg; ld1 Height 5 ft. 9 in. ; Pain 10/10; 16:53 BP 110 / 72; Pulse 74; Resp 16; Pulse Ox 98% ; mb9 14:17 Body Mass Index 29.53 (90.72 kg, 175.26 cm) ld1 14:17 Pain Scale: Adult ld1 MDM: 14:20 Patient medically screened. [facility] 15:21 Differential diagnosis: appendicitis, bowel obstruction, diverticulitis, gastritis, lamont gastroesophageal reflux disease, non-specific abd pain, pancreatitis, Peptic Ulcer Disease, Pyelonephritis, urinary tract infection. Data reviewed: vital signs, nurses notes, lab test result(s), radiologic studies, CT scan. Consideration of Admission/Observation Escalation of care including admission/observation considered. I considered the following discharge prescriptions or medication management in the emergency department Medications were administered in the Emergency Department. See MAR. Independent interpretation of the following test(s) in the Emergency Department CT Scan: My interpretation is ctt abd pelvis. Test considered but Not performed: MRI: no mri abd. Care significantly affected by the following chronic conditions: Diabetes, Hypertension, dvt, hypercholesterol, hypothyroid. Counseling: I had a detailed discussion with the patient and/or guardian regarding: the historical points, exam findings, and any diagnostic results supporting the discharge/admit diagnosis, radiology results, the need for outpatient follow up. 02/12 14:24 Order name: Basic Metabolic Panel; Complete Time: 16:08 [facility] 02/12 14:24 Order name: CBC with Diff; Complete Time: 16:37 02/12 14:24 Order name: LFT's; Complete Time: 16:08 02/12 14:24 Order name: Magnesium; Complete Time: 16:08 02/12 14:24 Order name: NT PRO-BNP; Complete Time: 16:08 02/12 14:24 Order name: PT-INR; Complete Time: 16:08 02/12 14:24 Order name: Troponin HS; Complete Time: 16:08 [facility] 02/12 14:24 Order name: Lipase; Complete Time: 16:08 02/12 14:24 Order name: Urinalysis w/ reflexes; Complete Time: 16:08 02/12 14:24 Order name: Lactate w/ 2H reflex if indic.; Complete Time: 16:08 [facility] 02/12 14:24 Order name: XRAY Chest (1 view); Complete Time: 16:08 02/12 14:24 Order name: CT Abd/Pelvis - IV Contrast Only; Complete Time: 16:37 [facility] 02/12 14:24 Order name: EKG; Complete Time: 14:25 [facility] 02/12 14:24 Order name: Cardiac monitoring; Complete Time: 15:27 02/12 14:24 Order name: EKG - Nurse/Tech; Complete Time: 15:45 02/12 14:24 Order name: IV Saline Lock; Complete Time: 15:27 02/12 14:24 Order name: Labs collected and sent; Complete Time: 15:27 02/12 14:24 Order name: O2 Per Protocol; Complete Time: 15:18 02/12 14:24 Order name: O2 Sat Monitoring; Complete Time: 15:18 [facility] EC:16 Rate is 69 beats/min. Rhythm is regular. QRS interval is normal. QT interval is normal. lamont No Q waves. T waves are Normal. No ST changes noted. Clinical impression: NSR w/ Non-specific ST/T Changes and No evidence of ischemia. Interpreted by me. Reviewed by me. Administered Medications: 15:35 Drug: NS 0.9% IV 1000 ml Route: IV; Rate: 125 ml/hr; Site: left forearm; mb9 Disposition Summary: 02/12/23 16:38 Discharge Ordered Location: Home lamont Problem: new lamont Symptoms: have improved lamont Condition: Stable lamont Diagnosis - Abdominal tenderness lamont - Constipation lamont Followup: lamont - With: Private Physician - When: 2 - 3 days - Reason: Recheck today's complaints, Continuance of care, Re-evaluation by your physician Followup: lamont - With: Lloyd Acharya MD - When: 2 - 3 days - Reason: Recheck today's complaints, Re-evaluation by your physician Discharge Instructions: - Discharge Summary Sheet lamont - Abdominal Pain, Adult lamont - Constipation, Adult lamont - Constipation, Adult, [id number] lamont - Abdominal Pain, Adult, [id number] [facility] Forms: - Medication Reconciliation Form [facility] - Thank You Letter [facility] - Antibiotic Education [facility] - Prescription Opioid Use [facility] Prescriptions: - Dulcolax (bisacodyl) 10 mg Rectal suppository - insert 1 suppository by RECTAL route every 12 hours for 5 days; 10 suppository; [facility] Refills: 0, Product Selection Permitted - Pepcid 20 mg Oral Tablet - take 1 tablet by ORAL route every 12 hours for 10 days; 20 tablet; Refills: 0, [facility] Product Selection Permitted - Zofran 4 mg Oral Tablet - take 1 tablet by ORAL route every 12 hours As needed; 20 tablet; Refills: 0, [facility] Product Selection Permitted - Lactulose 10 gram/15 mL Oral Solution - take 30 milliliters by ORAL route once daily; 300 milliliter; Refills: 0, [facility] Product Selection Permitted - dicyclomine 20 mg Oral Tablet - take 1 tablet by ORAL route 4 times per day; 28 tablet; Refills: 0, Product [facility] Selection Permitted Signatures: Dispatcher [employer] Chris Zepeda MD MD cha Sims, Lauren RN RN ld1 Stephenie Heath, RN RN mb9
[2023-02-12] MEDS ORDERED: BISACODYL 10 MG RECTAL SUPP ONE (16:50)
[2023-02-12] MEDS ORDERED: LACTULOSE 20 GM/30 ML UCUP ONE (16:50)
[2023-02-12 16:59] VITALS: TEMP 98.3
[2023-02-12 17:00] VITALS: BP 110/72; O2SAT 98
--- NOTE | 2023-02-14 17:35 | EKG ---
Test Date: 2023-02-12 Test Time: 15:43:07 Material Loader: MB MEASUREMENT RESULTS: Intervals: Rate: 69 GA: 142 QRSD: 152 QT: 406 QTc: 435 [place]: P: 52 GA: 142 QRS: 106 T: 51 INTERPRETIVE STATEMENTS: Normal sinus rhythm Right bundle branch block Abnormal ECG Compared to ECG 02/07/2023 22:11:58 No significant changes Electronically Signed On 02-14-23 17:33:56 CDT by Jae Owens
== END 2023-02-12 16:54 | disposition home or self-care (01) ==
LOC: ER 14:15
DX: K59.00 Constipation, unspecified (principal); I10 Essential (primary) hypertension; E11.9 Type 2 diabetes mellitus without complications; Z88.8 Allergy status to other drugs, medicaments and biological substances; Z95.818 Presence of other cardiac implants and grafts
CPT/HCPCS: 93005; 85025; 80048; 36415; 83735; 85610; 80076; 83605; 81003; 84484; 83690; 83880; 74177; 71045; Q9967; J7030

== ENCOUNTER 2023-02-18 08:09 | Emergency (ER) | payer OTHER ==
--- OUTSIDE RECORDS SUMMARY | 2023-02-18 08:20 | XMS REPORT | Continuity of Care Document ---
:1960 Author Organization [facility] t Address [address] [facility] [address] [place] [address] Care Team Providers Name Role Phone [place], Regina Quiroga Primary Care Physician Maira Oliveira Attending Clinician Unavailable Regina Hodges Attending Clinician Unavailable Jeison Hays Attending Clinician Radiology Attending Clinician Unavailable RADIOLOGY Attending Clinician Unavailable Carolina Rice RN Attending Clinician Unavailable EARL GODDARD Attending Clinician Unavailable Leonora Guzman Attending Clinician Alexandre Montemayor MD Attending Clinician Earl Goddard MD Attending Clinician Doctor Unassigned, [place] Attending Clinician Unavailable Wallace Dotson MD Attending [...] Number Effective Date Expiration Date Janell freitas [facility] DUAL [id number] 2020 COMP HMO D SNP 00:00:00 MEDICAID OF [id number] 2020 [place] 00:00:00 [facility] 53 [id number] 2020 Common ADVANTAGE 00:00:00 Spirit - [facility] [id number] [facility] MEDICARE [id number] 2020 COMPLETE CHOICE 00:00:00 HUMANCarmen GOLD PLS [id number] 2019 HMO 00:00:00 MEDICARE PART A [id number] 2004 2019 \T\ B 00:00:00 00:00:00 Problems Condition Condition Condition Status Onset Resolution Last Treating Co mments Source Name Details Category Date Date Treatment Clinician Date Coronary Coronary Disease Active 2021-09 Unive rs artery artery 1-17 ity of disease disease 00:00: [place] involving involving 00 Medi [place] coronary coronary artery of artery of [place] heart heart without without angina angina pectoris pectoris Generalize Generalize Disease Active 2021-09 U nivers d d 1-17 [place] of abdominal abdominal [place] pain pain 00 [place] Coronary Coronary Disease Active 2021-09 Unive rs artery artery 1-17 ity of disease disease 00:00: [place] involving involving 00 Medi [place] coronary coronary artery of artery of [place] heart heart without without angina angina pectoris pectoris Chest pain Chest pain Disease Active 2021-09 U nivers 1-16 ity of 00:00: [place] 00 Medical Branch SPINAL SPINAL Diagnosis Active 2020-092021-09-26 Me donnaa CORD CORD 11-24 08:25:00 l STIMULATOR STIMULATOR 00:00: He rmann INSERTION INSERTION 00 Active 09/23/2021 [facility] UNK UNK Diagnosis Active 2020-092021-09-24 Mem oria Active 11-24 12:49:00 l 09/23/2021 00:00: Tera leon [address] Other Other Disease Active 2020-09 Univers age-relate age-relate 11-03 it y of d cataract d cataract [place] left of left 00 Medical eye eye Branch RADICULOPA RADICULOP Diagnosis Active 2020-10-15 Alex THY, ATHY, 10-04 07:21:00 l LUMBAR LUMBAR 00:00: [place] [facility] REGION 00 Active 10/04/2020 [facility] Obesity Obesity Disease Active Univers (BMI [...] 00 Medical Branch Impaired Impaired Problem Active 2023-02-15 [facility] mobility mobility 8 15:11:18 l (finding) (finding) 00:00: Herm adam Active 00 04/28/2011 Problem 02/15/2023 Manuel Adams [facility] [id number] Essential Problem Comm on hypertensi Spirit on - [facility] [id number] [place] [id number] prostatic Spirit hyperplasi - CHI a with [facility] tract Center symptoms [id number] Other Problem Common secondary Spirit acute gout - CHI of left [facility] [id number] Type 2 Problem Common diabetes Spirit mellitus - [facility] unspecifie Center d whether fdc insulin use [id number] Acquired Problem Comm on hypothyroi Spirit dism - [facility] [id number] Frequency Problem Com mon of Spirit micturitio - [facility] n [facility] [id number] [place] in Problem Commo n neck [facility] [id number] History of Problem C ommon right Spirit below knee - CHI amputation [facility] [id number] Cervical Problem Com mon osteophyte [facility] [id number] [place] [id number] exam [facility] [id number] 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 - CHI diabetes with [facility] diabetic [facility] polyneurop Medica l [facility], Center without long-term current use of insulin [id number] Benign Problem Common prostatic Spirit hyperplasi - CHI a without [facility] urinary Medical tract Center symptoms [id number] PAD Problem Common (periphera Spirit l artery - CHI disease) [facility] [id number] Mixed Problem Common hyperlipid Spirit emia - [facility] Polyneurop Polyneurop Problem C ommon athy athy Spirit - [facility] Angina Angina Problem Active 2023-02-15 Brodie douglas (disorder) (disorder) 15:11:18 l Active [place] Problem 02/15/2023 Manuel Adams [facility] 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-15 Memoria radiculopa radiculopa 15:11:18 l thy thy [place] (disorder) (disorder) Active Problem 02/15/2023 [facility] 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-15 Memoria spondylosi spondylosi 15:11:18 l s s Michael (disorder) (disorder) Active Problem 02/15/2023 [facility] [place] Diabetes Diabetes Problem Active 2023-02-15 Memoria mellitus mellitus 15:11:18 l (disorder) (disorder) He rmann Active Problem 02/15/2023 [facility] Hyperlipid Hyperlipi Problem Active 2023-02-15 Memoria emia demia 15:11:18 l (disorder) (disorder) He rmann Active Problem 02/15/2023 [facility] Hypertensi Hypertens Problem Active 2023-02-15 Memoria ve phi 15:11:18 l disorder, disorder, Herm adam systemic systemic arterial arterial (disorder) (disorder) Active Problem 02/15/2023 [facility] Pain Pain Problem Active 2023-02-15 Memor ia (finding) (finding) 15:11:18 l Active Michael Problem 02/15/2023 [facility] Submandibu Submandib Problem Active 2023-02-15 Memoria lar ular 15:11:18 l lymphadeno lymphadeno He rmann ryne ryne (disorder) (disorder) Active Problem 02/15/2023 [facility] Carpal Carpal Problem Active 2023-02-15 Brodie douglas tunnel tunnel 15:11:18 l syndrome syndrome Tera n (disorder) (disorder) Active Problem 02/15/2023 [facility] Hypothyroi Hypothyro Problem Resolve 2021-09-28 Memoria dism idism d 22:42:20 l (disorder) (disorder) He rmann Resolved Problem 09/28/2021 [facility] Raised Raised Problem Active [place] Prostate da specific Specific Medica l antigen Antigen Group Allergies, Adverse Reactions, Alerts Allergy Allergy Status Severity Reaction(s) Onset Inactive Treating Comm ents Source Name Type Date Date Clinician AMLODIPI DRUG Active Unknown-Cmnt 2021-09 Un jovi NE INGREDI -16 ity of 00:00: [place] 00 Medical Branch Amlodipi Propensi Active Unknown - 2021-09 Reaction U nivers ne ty to See comments -16 unknown ity of adverse 00:00: [place] reaction 00 Medical s Branch No Known No Known Active Memori a Medicati Medicati l on on [place] Allergie Allergie s s NO KNOWN Drug Active Univers ALLERGIE Class ity of S [facility] amlodipi amlodipi Active CP, SOB, Comm on ne ne Nausea Spirit - [facility] Social History Social Habit Start Date Stop Date Quantity Comments Source Sex Assigned At Common Sp josee - [facility] History of Common Spirit - Tobacco Use [facility] History SDOH Food 2022-08-14 2022-08-14 1 Univers ity of Worry 00:00:00 00:00:00 [place] [facility] [place] History SDOH Food 2022-08-14 2022-08-14 1 Univers ity of Scarcity 00:00:00 00:00:00 [place] [facility] History SDOH 2022-08-14 2022-08-14 2 University o f Transport Med 00:00:00 00:00:00 [facility] al Branch History SDOH 2022-08-14 2022-08-14 2 University o f Transport Non-Med 00:00:00 00:00:00 [facility] edical Branch Alcohol intake 2022-08-13 2022-08-13 0 /d University of 00:00:00 00:00:00 [facility] Exposure to 2022-08-02 2022-08-12 Not sure [facility] SARS-CoV-2 00:00:00 10:42:00 [facility] (event) [place] Tobacco use and 2022-05-19 2022-05-19 Smokeless tobacco Un iversity of exposure 00:00:00 00:00:00 non-user [facility] Social History 2021-09-24 2021-09-24 Cory thompson 15:29:23 15:29:23 Smoking Status Start Date Stop Date Source Tobacco smoking status [facility] Michael Medications Ordered Filled Start Stop Current Ordering [...] 0 Refill(s) Vitamin D3 Yes 50 Memoria 1999 intl 4-18 microgram l units oral 20:16: = 1 tab, Her crews tablet 00 PO, Daily, 0 Refill(s) atorvastati 2021-09 Yes 20mg 20 mg, Univ ers n (LIPITOR) 1-18 Oral, QHS, it y of tablet 20 03:00: [place] mg 00 on [facility] 08/13/22 Branch at 2100, Until Discontinu ed sulfur 2021-09- No [id number] 5mL 5 mL, Unive rs hexafluorid 10-13 Intravenou i ty of e microsphr 20:30: 20:30 s, ONCE, 1 [place] (LUMASON) 00 :00 dose, On Medica l injection 5 [facility] Branch mL 08/13/22 at 1430, Routine
board member approving Restricted medication : MANDY VAUGHN clopidogreL 2021-09 Yes 75mg Take 75 mg Univers (PLAVIX) 75 17 by mouth ity of mg tablet 16:36: in the [place] [address] morning. Medical Branch Levothyroxi 2021-09 Yes Take by Uni vers ne 75 mcg -17 mouth. ity of capsule 16:36: [place] [address] Medical Branch finasteride 2021-09 Yes 5mg Take 5 mg U nivers 5 mg tablet 17 by mouth ity of 16:36: in the [place] [address] morning. Medical Branch losartan 2021-09 Yes 100mg Take 100 Univ ers 100 mg 1-17 mg by ity of tablet 16:36: mouth in [place] 03 the Medical morning. Branch metFORMIN 2021-09 Yes 500mg Take 500 Uni vers 500 mg 1-17 mg by ity of tablet 16:36: mouth in [place] 03 the Medical morning Branch and 500 mg in the evening. Take with meals. lovastatin 2021-09 Yes 20mg Take 20 mg U nivers 20 mg -17 by mouth ity of tablet 16:36: at [place] [address] bedtime. Medical Branch tamsulosin 2021-09 Yes Take by Univ ers (FLOMAX) 1-17 mouth ity of 0.4 mg 24 16:36: daily. [place] hr capsule 03 Medical Branch ergocalcife 2021-09 Yes 2000U Take 2,000 Univers rol, 1-17 Units by ity of vitamin D2, 16:36: mouth. [place] (VITAMIN D Medical ORAL) Branch aspirin 81 2021-09 Yes 81mg Take 81 mg U nivers mg chewable 1-17 by mouth ity of tablet 16:36: in the [place] morning. Medical Branch clopidogreL 2021-09 Yes 75mg Take 75 mg Univers (PLAVIX) 75 1-17 by mouth ity of mg tablet 16:36: in the [place] morning. Medical Branch Levothyroxi 2021-09 Yes Take by Uni vers ne 75 mcg 1-17 mouth. ity of capsule 16:36: [place] Medical Branch finasteride 2021-09 Yes 5mg Take 5 mg U nivers 5 mg tablet 1-17 by mouth ity of 16:36: in the [place] [address] morning. Medical Branch losartan 2021-09 Yes 100mg Take 100 Univ ers 100 mg 1-17 mg by ity of tablet 16:36: mouth in [place] [address] the Medical morning. Branch metFORMIN 2021-09 Yes 500mg Take 500 Uni vers 500 mg 1-17 mg by ity of tablet 16:36: mouth in [place] [address] the Medical morning Branch and 500 mg in the evening. Take with meals. lovastatin 2021-09 Yes 20mg Take 20 mg U nivers 20 mg 1-17 by mouth ity of tablet 16:36: at [place] [address] bedtime. Medical Branch tamsulosin 2021-09 Yes Take by Univ ers (FLOMAX) 1-17 mouth ity of 0.4 mg 24 16:36: daily. [place] hr capsule Medical Branch ergocalcife 2021-09 Yes 2000U Take 2,000 Univers rol, 1-17 Units by ity of vitamin D2, 16:36: mouth. [facility] s (VITAMIN D Medical ORAL) Branch aspirin 81 2021-09 Yes 81mg Take 81 mg U nivers mg chewable 1-17 by mouth ity of tablet 16:36: in the [place] [address] morning. Medical Branch clopidogreL 2021-09 Yes 75mg Take 75 mg Univers (PLAVIX) 75 1-17 by mouth ity of mg tablet 16:36: in the [place] [address] morning. Medical Branch Levothyroxi 2021-09 Yes Take by Uni vers ne 75 mcg 1-17 mouth. ity of capsule 16:36: [place] [address] Medical Branch finasteride 2021-09 Yes 5mg Take 5 mg U nivers 5 mg tablet 1-17 by mouth ity of 16:36: in the [place] [address] morning. Medical Branch losartan 2021-09 Yes 100mg Take 100 Univ ers 100 mg 1-17 mg by ity of tablet 16:36: mouth in [place] [address] the Medical morning. Branch metFORMIN 2021-09 Yes 500mg Take 500 Uni vers 500 mg 1-17 mg by ity of tablet 16:36: mouth in [place] [address] the Medical morning Branch and 500 mg in the evening. Take with meals. lovastatin 2021-09 Yes 20mg Take 20 mg U nivers 20 mg 1-17 by mouth ity of tablet 16:36: at [place] [address] bedtime. Medical Branch tamsulosin 2021-09 Yes Take by Univ ers (FLOMAX) 1-17 mouth ity of 0.4 mg 24 16:36: daily. [facility] Medical Branch ergocalcife 2021-09 Yes 2000U Take 2,000 Univers rol, 1-17 Units by ity of vitamin D2, 16:36: [place]. [place] (VITAMIN D Medical ORAL) Branch aspirin 81 2021-09 Yes 81mg Take 81 mg U nivers mg chewable 1-17 by mouth ity of tablet 16:36: in the [place] [address] morning. Medical Branch polyethylen 2021-09 Yes 17g 17 g, Unive rs e glycol 1-17 Oral, ity of 3350 powder 15:00: [place]ILY, [place] 17 g 00 First dose Medical on [facility] 08/13/22 at 0900, Until Discontinu ed, Routine tamsulosin 2021-09 Yes .4mg 0.4 mg, Univ ers (FLOMAX) 1-17 Oral, ity of capsule 0.4 15:00: DAILY, [place] mg 00 First dose Medical on [facility] 08/13/22 at 0900, Until Discontinu ed, Routine losartan 2021-09 Yes 100mg 100 mg, Unive rs (COZAAR) 1-17 Oral, ity of tablet 100 15:00: DAILY, [place] mg 00 First dose Medical on [facility] 08/13/22 at 0900, Until Discontinu ed, Routine finasteride 2022-1 Yes 5mg 5 mg, Unive rs (PROSCAR) -17 Oral, ity of tablet 5 mg 15:00: [place]ILY, [place] 00 First dose Medical on [facility] Branch 08/13/22 at 0900, Until Discontinu ed, Routine clopidogreL 2021-09 Yes 75mg 75 mg, Univ ers (PLAVIX) 75 -17 Oral, ity of mg tablet 15:00: DAILY, [place] 75 mg 00 First dose Medical on [facility] Branch 08/13/22 at 0900, Until Discontinu ed, Routine aspirin 2021-09 Yes 81mg 81 mg, Univers chewable 17 Oral, ity of tablet 81 15:00: DAILY, [place] mg 00 First dose Medical on [facility] Branch 08/13/22 at 0900, Until Discontinu ed, Routine enoxaparin 2021-09 Yes 40mg 40 mg, Unive rs (LOVENOX) 17 Subcutaneo ity of injection 15:00: [place], [place]ILY, [place] 40 mg 00 First dose Medical on [facility] 08/13/22 at 0900, Until Discontinu ed, Routine Sliding 2021-09 Yes Subcutaneo Univ ers Scale 1-17 us, TID ity of Insulin - 14:00: MEALS+HS, [place] Lispro 00 First dose Medical (HumaLOG) + on [facility] Fsbg 08/13/22 Testing at 0800, Until Discontinu ed, Routine levothyroxi 2021-09 Yes 75ug 75 mcg, Uni vers ne 17 Oral, ity of (SYNTHROID) 12:00: QAM-0600, [place] tablet 75 00 First dose Medi balbina mcg on [facility] 08/13/22 at 0600, Until Discontinu ed dextrose 2021-09 Yes 250mL 250 mL, IV Un jovi 10% (D10W) 10-13 Infusion, ity of bolus 06:39: PRN - SEE [place] infusion 28 INSTRUCTIO Medic al 250 mL NS, Branch Administer over 60 Minutes, Other, If blood glucose is < or = 70 mg/dL and patient is unable to swallow or has mental status changes, Starting on [facility] 08/13/22 at 0039
If blood glucose [...] Routine, Pain (scale 7-10), Chest pain traMADoL 2021-09 No 50mg 50 mg, Univer s (ULTRAM) [...] Routine, Pain (scale 1-3) iopamidol 2021-09- No [id number] 100mL 100 mL, Univers (ISOVUE 10-12 Intravenou [...] mg 00 :00 dose, On Wed08/12/22 at 1315, STAT morpHINE (2021-09- No 4mg 4 mg, Slow Univers mg/mL) 10-12 IV Push, ity of injection 4 19:00: 18:55 ONCE, 1 [place] mg 00 :00 dose, On [facility] Branch 08/12/22 at 1300, STAT nitroglycer 2021-09- No .4mg 0.4 mg, Un jovi in 10-12 Sublingual ity of (NITROSTAT) 18:15: 18:06 , ONCE, 1 [place] sublingual 00 :00 dose, On Medic al tablet 0.4 08/12/22 at 1215, VAUGHN nitroglycer 2021-09 Yes [...] 00 :00 dose, On Medi balbina mg Wed08/12/22 at 1115, VAUGHN morpHINE (4 2021-09- No 4mg 4 mg, Slow Univers mg/mL) 10-12 IV Push, ity of injection 4 17:15: 17:12 ONCE, 1 [place] mg 00 :00 dose, On [facility] Branch 08/12/22 at 1115, STAT Lidocaine & Lidocaine & 2021-0 2022- No QD Lidocaine Adhesive Adhesive 9-23 10-13 & Adhesive Sheet 5 % Sheet 5 % 00:00: 00:00 Sheet 5 % (Patch) (Patch) 00 :00 (Patch) Lidocaine & Lidocaine & 2-0 2022- No QD Lidocaine Adhesive Adhesive 9-23 10-13 & Adhesive Sheet 5 % Sheet 5 % 00:00: 00:00 Sheet 5 % (Patch) (Patch) 00 :00 (Patch) Lidocaine & Lidocaine & 2-0 2022- No QD Lidocaine Adhesive Adhesive 9-23 10-13 & Adhesive Sheet 5 % Sheet 5 % 00:00: 00:00 Sheet 5 % (Patch) (Patch) 00 :00 (Patch) Lidocaine & Lidocaine & 2021-0 2022- No QD Lidocaine Adhesive Adhesive 9-23 10-13 & Adhesive Sheet 5 % Sheet 5 % 00:00: 00:00 Sheet 5 % (Patch) (Patch) 00 :00 (Patch) Lidocaine & Lidocaine & 2021-0 2022- No QD Lidocaine Adhesive Adhesive 9-23 10-13 & Adhesive Sheet 5 % Sheet 5 % 00:00: 00:00 Sheet 5 % (Patch) (Patch) 00 :00 (Patch) Lidocaine & Lidocaine & 2021-0 2022- No QD Lidocaine Adhesive Adhesive 9-23 10-13 & Adhesive Sheet 5 % Sheet 5 % 00:00: 00:00 Sheet 5 % (Patch) (Patch) 00 :00 (Patch) meloxicam 2021-2021- No [id number] 15mg Take 1 Univers 15 mg 05-19 [id number] tablet by ity of tablet 00:00: 04:59 mouth in [place] 00 :00 the [facility] for 30 days. meloxicam 2021-0 2021- No [id number] 15mg Take 1 Univers 15 mg 05-19 [id number] tablet by ity of tablet 00:00: 04:59 mouth in [place] 00 :00 the [facility] for 30 days. meloxicam 2021-2021- No [id number] 15mg Take 1 Univers 15 mg 05-19 [id number] tablet by ity of tablet 00:00: 04:59 mouth in [place] 00 :00 the Medical morning Branch for 30 days. methylPREDN 2-0 Yes [id number] 84mg Take 21 Univers ISolone 5-23 9103 tablets by ity of (MEDROL, 00:00: mouth [place] MICHELE,) 4 mg 00 SEE-INSTRU Med ical tablets CTIONS. Branch follow package directions methylPREDN 2-0 Yes [id number] 84mg Take 21 Univers ISolone 5-23 9103 tablets by ity of (MEDROL, 00:00: mouth [place] MICHELE,) 4 mg 00 SEE-INSTRU Med ical tablets CTIONS. Branch follow package directions methylPREDN 2-0 Yes [id number] 84mg Take 21 Univers ISolone 5-23 9103 tablets by ity of (MEDROL, 00:00: mouth [place] MICHELE,) 4 mg 00 SEE-INSTRU Med ical tablets CTIONS. Branch follow package directions methylPREDN 2-0 Yes [id number] 84mg Take 21 Univers ISolone 5-23 9103 tablets by ity of (MEDROL, 00:00: mouth [place] MICHELE,) 4 mg 00 SEE-INSTRU Med ical tablets CTIONS. Branch follow package directions methylPREDN 2021-0 2022- No [id number] 84mg Take 21 Univers ISolone 5-23 11-17 9103 tablets by ity o f (MEDROL, 00:00: 00:00 mouth [place] MICHELE,) 4 mg 00 :00 SEE-INSTRU Med ical tablets CTIONS. Branch follow package directions Meloxicam Meloxicam 2021- No 1{table QD Meloxicam 7.5 MG 7.5 MG 02-04 06-10 t} 7.5 MG 00:00: 00:00 00 :00 Meloxicam Meloxicam 2021-0 2021- No 1{table QD Meloxicam 7.5 MG 7.5 MG 5- 06-10 t} 7.5 MG 00:00: 00:00 00 :00 tiZANidine tiZANidine 2021- No 1{table tiZANidine HCl 4 MG HCl 4 MG 02-04 05-21 t_as_ne HCl 4 MG 00:00: 00:00 eded} 00 :00 Rocephin Rocephin 0 No 1000mg Com mon (Ceftriaxon (Ceftriaxon 4-11 S pirit e) e) 00:00: - [facility] Toradol Toradol 2021-0 No 30mg Common (Ketorolac) (Ketorolac) 4-11 S pirit 00:00: - [facility] Rocephin Rocephin 2-0 No 1000mg Com mon (Ceftriaxon (Ceftriaxon 4-11 S pirit e) e) 00:00: - [facility] Toradol Toradol 2021-0 No 30mg Common (Ketorolac) (Ketorolac) 4-11 S pirit 00:00: - [facility] Rocephin Rocephin 2-0 No 1000mg Com mon (Ceftriaxon (Ceftriaxon 4-11 S pirit e) e) 00:00: - [facility] Toradol Toradol 2021-0 No 30mg Common (Ketorolac) (Ketorolac) 4-11 S pirit 00:00: - [facility] Naproxen Naproxen 2021-0 No BID Naproxen 500 MG 500 MG 4-11 500 MG 00:00: 00 Rocephin Rocephin 2-0 No 1000mg Com mon (Ceftriaxon (Ceftriaxon 4-11 S pirit e) e) 00:00: - [facility] Toradol Toradol 2021-0 No 30mg Common (Ketorolac) (Ketorolac) 4-11 S pirit 00:00: - [facility] Naproxen Naproxen 2-0 No BID Naproxen 500 MG 500 MG 4-11 500 MG 00:00: 00 Rocephin Rocephin 2-0 No 1000mg Com mon (Ceftriaxon (Ceftriaxon 4-11 S pirit e) e) 00:00: - [facility] Toradol Toradol 2-0 No 30mg Common (Ketorolac) (Ketorolac) 4-11 S pirit 00:00: - [facility] Rocephin Rocephin 2-0 No 1000mg Com mon (Ceftriaxon (Ceftriaxon 4-11 S pirit e) e) 00:00: - [facility] Toradol Toradol 2021-0 No 30mg Common (Ketorolac) (Ketorolac) 4-11 S pirit 00:00: - [facility] Rocephin Rocephin 2-0 No 1000mg Com mon (Ceftriaxon (Ceftriaxon 4-11 S pirit e) e) 00:00: - [facility] Toradol Toradol 2021-0 No 30mg Common (Ketorolac) (Ketorolac) 4-11 S pirit 00:00: - [facility] Rocephin Rocephin 2021-0 No 1000mg Com mon (Ceftriaxon (Ceftriaxon 4-11 S pirit e) e) 00:00: - [facility] Toradol Toradol 2021-0 No 30mg Common (Ketorolac) (Ketorolac) 4-11 S pirit 00:00: - [facility] Rocephin Rocephin 2-0 No 1000mg Com mon (Ceftriaxon (Ceftriaxon 4-11 S pirit e) e) 00:00: - [facility] Toradol Toradol 2021-0 No 30mg Common (Ketorolac) (Ketorolac) 4-11 S pirit 00:00: - [facility] Rocephin Rocephin 2-0 No 1000mg Com mon (Ceftriaxon (Ceftriaxon 4-11 S pirit e) e) 00:00: - [facility] Toradol Toradol 2021-0 No 30mg Common (Ketorolac) (Ketorolac) 4-11 S pirit 00:00: - [facility] Rocephin Rocephin 2-0 No 1000mg Com mon (Ceftriaxon (Ceftriaxon 4-11 S pirit e) e) 00:00: - [facility] Toradol Toradol 2-0 No 30mg Common (Ketorolac) (Ketorolac) 4-11 S pirit 00:00: - [facility] Rocephin Rocephin 2-0 No 1000mg Com mon (Ceftriaxon (Ceftriaxon 4-11 S pirit e) e) 00:00: - [facility] Toradol Toradol 2021-0 No 30mg Common (Ketorolac) (Ketorolac) 4-11 S pirit 00:00: - [facility] Rocephin Rocephin 2021-0 No 1000mg Com mon (Ceftriaxon (Ceftriaxon 4-11 S pirit e) e) 00:00: - [facility] Toradol Toradol 2021-0 No 30mg Common (Ketorolac) (Ketorolac) 4-11 S pirit 00:00: - [facility] cefTRIAXone cefTRIAXone 2021-0 No 1000mg Common Sodium Sodium 4-11 Spirit 00:00: - [facility] Toradol Toradol 2021-0 No 30mg Common (Ketorolac) (Ketorolac) 4-11 S pirit 00:00: - [facility] cefTRIAXone cefTRIAXone 2021-0 No 1000mg Common Sodium Sodium 4-11 Spirit 00:00: - [facility] Toradol Toradol 2021-0 No 30mg Common (Ketorolac) (Ketorolac) 4-11 S pirit 00:00: - [facility] Amoxicillin Amoxicillin 2021-0 2- No 1{table BID Amoxicilli -Pot -Pot 01-0518 t} n-Pot Clavulanate Clavulanate 00:00: 00:00 Clavulanat 875-125 MG 875-125 MG 00 :00 e 875-125 MG ceFAZolin 2020-09 No Route: IV, Me moria (ANES) Drug form: l 18:23: INJ, ONCE, Stop date: 09/26/21 12:23:00 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 ondansetron 2020-09 No Route: IV, Memoria (ANES) Drug form: l 18:23: INJ, ONCE, Stop date: 09/26/21 12:23:00 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 dexamethaso 2020-09 No Route: IV, Memoria ne (ANES) Drug form: l 18:23: INJ, ONCE, Stop date: 09/26/21 12:23:00 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 lidocaine 2020-09 No Route: IV, Me moria (ANES) - Drug form: l 18:23: INJ, ONCE, Stop date: 09/26/21 12:23:00 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 propofol 2020-09 No Route: IV, Mem oria (ANES) Drug form: l 18:23: INJ, ONCE, Stop date: 09/26/21 12:23:00 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 ceFAZolin 2020-09 No Route: IV, Me moria (ANES) Drug form: l 18:23: INJ, ONCE, Stop date: 09/26/21 12:23:00 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 ondansetron 2020-09 No Route: IV, Memoria (ANES) 2- Drug form: l 18:23: INJ, ONCE, Stop date: 09/26/21 12:23:00 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 dexamethaso 2020-09 No Route: IV, Memoria ne (ANES) Drug form: l 18:23: INJ, ONCE, Stop date: 09/26/21 12:23:00 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 lidocaine 2020-09 No Route: IV, Me moria (ANES) Drug form: l 18:23: INJ, ONCE, Stop date: 09/26/21 12:23:00 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 propofol 2020-09 No Route: IV, Mem oria (ANES) Drug form: l 18:23: INJ, ONCE, Stop date: 09/26/21 12:23:00 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 ceFAZolin 2020-09 No Route: IV, Me moria (ANES) 2 Drug form: l 18:23: INJ, ONCE, Stop date: 09/26/21 12:23:00 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 ondansetron 2020-09 No Route: IV, Memoria (ANES) 2- Drug form: l 18:23: INJ, ONCE, Stop date: 09/26/21 12:23:00 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 dexamethaso 2020-09 No Route: IV, Memoria ne (ANES) 2 Drug form: l 18:23: INJ, ONCE, Stop date: 09/26/21 12:23:00 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 lidocaine 2020-09 No Route: IV, Me moria (ANES) 2- Drug form: l 18:23: INJ, ONCE, Stop date: 09/26/21 12:23:00 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 ceFAZolin 2020-09 No Route: IV, Me moria (ANES) 2- Drug form: l 18:23: INJ, ONCE, Stop date: 09/26/21 12:23:00 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 ondansetron 2020-09 No Route: IV, Memoria (ANES) 2- Drug form: l 18:23: INJ, ONCE, Stop date: 09/26/21 12:23:00 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 dexamethaso 2020-09 No Route: IV, Memoria ne (ANES) 2- Drug form: l 18:23: INJ, ONCE, Stop date: 09/26/21 12:23:00 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 lidocaine 2020-09 No Route: IV, Me moria (ANES) 2- Drug form: l 18:23: INJ, ONCE, Stop date: 09/26/21 12:23:00 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 propofol 2020-09 No Route: IV, Mem oria (ANES) 2- Drug form: l 18:23: INJ, ONCE, Stop date: 09/26/21 12:23:00 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 propofol 2020-09 No Route: IV, Mem oria (ANES) 2- Drug form: l 18:23: INJ, ONCE, Stop date: 09/26/21 12:23:00 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 ceFAZolin 2020-09 No Route: IV, Me moria (ANES) 2- Drug form: l 18:23: INJ, ONCE, Stop date: 09/26/21 12:23:00 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 ondansetron 2020-09 No Route: IV, Memoria (ANES) 2- Drug form: l 18:23: INJ, ONCE, Stop date: 09/26/21 12:23:00 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 dexamethaso 2020-09 No Route: IV, Memoria ne (ANES) 2- Drug form: l 18:23: INJ, ONCE, Michael 00 Stop date: 09/26/21 12:23:00 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 lidocaine 2020-09 No Route: IV, Me moria (ANES) 2- Drug form: l 18:23: INJ, ONCE, [place] 00 Stop date: 09/26/21 12:23:00 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 propofol 2020-09 No Route: IV, Mem oria (ANES) 2- Drug form: l 18:23: INJ, ONCE, Michael 00 Stop date: 09/26/21 12:23:00 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 ceFAZolin 2020-09 No Route: IV, Me moria (ANES) 2- Drug form: l 18:23: INJ, ONCE, Michael 00 Stop date: 09/26/21 12:23:00 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 ondansetron 2020-09 No Route: IV, Memoria (ANES) 2- Drug form: l 18:23: INJ, ONCE, [place] 00 Stop date: 09/26/21 12:23:00 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 dexamethaso 2020-09 No Route: IV, Memoria ne (ANES) Drug form: l 18:23: INJ, ONCE, Michael 00 Stop date: 09/26/21 12:23:00 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 lidocaine 2020-09 No Route: IV, Me moria (ANES) 2- Drug form: l 18:23: INJ, ONCE, Michael 00 Stop date: 09/26/21 12:23:00 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 propofol 2020-09 No Route: IV, Mem oria (ANES) 2- Drug form: l 18:23: INJ, ONCE, [place] 00 Stop date: 09/26/21 12:23:00 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 midazolam 2020-09 No Route: IV, Me moria (ANES) 2- Drug form: l 18:22: SOLN, [place] 00 ONCE, Stop date: 09/26/21 12:22:00 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 fentaNYL 2020-09 No Route: IV, Mem oria (ANES) 2- Drug form: l 18:22: INJ, ONCE, Michael Stop date: 09/26/21 12:22:00 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 midazolam 2020-09 No Route: IV, Me moria (ANES) 2- Drug form: l 18:22: SOLN, [place] 00 ONCE, Stop date: 09/26/21 12:22:00 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 fentaNYL 2020-09 No Route: IV, Mem oria (ANES) 2-31 Drug form: l 18:22: INJ, ONCE, [place] 00 Stop date: 09/26/21 12:22:00 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 midazolam 2020-09 No Route: IV, Me moria (ANES) 2- Drug form: l 18:22: SOLN, Michael 00 ONCE, Stop date: 09/26/21 12:22:00 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 fentaNYL 2020-09 No Route: IV, Mem oria (ANES) 2- Drug form: l 18:22: INJ, ONCE, Michael 00 Stop date: 09/26/21 12:22:00 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 midazolam 2020-09 No Route: IV, Me moria (ANES) 2- Drug form: l 18:22: SOLN, [place] 00 ONCE, Stop date: 09/26/21 12:22:00 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 fentaNYL 2020-09 No Route: IV, Mem oria (ANES) 2- Drug form: l 18:22: INJ, ONCE, Michael 00 Stop date: 09/26/21 12:22:00 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 midazolam 2020-09 No Route: IV, Me moria (ANES) 2- Drug form: l 18:22: SOLN, [place] 00 ONCE, Stop date: 09/26/21 12:22:00 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 fentaNYL 2020-09 No Route: IV, Mem oria (ANES) 2- Drug form: l 18:22: INJ, ONCE, Michael 00 Stop date: 09/26/21 12:22:00 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 midazolam 2020-09 No Route: IV, Me moria (ANES) 2-31 Drug form: l 18:22: SOLN, Michael 00 ONCE, Stop date: 09/26/21 12:22:00 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 fentaNYL 2020-09 No Route: IV, Mem oria (ANES) 2-31 Drug form: l 18:22: INJ, ONCE, Michael 00 Stop date: 09/26/21 12:22:00 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 Lactated 2020-09 No Route: IV, Mem oria Ringers 2-31 Total l Injection 17:40: Volume: Roz nn IV (ANES) 00 1,000, 1000 mL Start date: 09/26/21 11:40:00 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, Stop date: 09/26/21 12:40:00 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 Lactated 2020-09 No Route: IV, Mem oria Ringers 2-31 Total l Injection 17:40: Volume: Roz nn IV (ANES) 00 1,000, 1000 mL Start date: 09/26/21 11:40:00 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, Stop date: 09/26/21 12:40:00 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 Lactated 2020-09 No Route: IV, Mem oria Ringers 2-31 Total l Injection 17:40: Volume: Roz nn IV (ANES) 00 1,000, 1000 mL Start date: 09/26/21 11:40:00 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, Stop date: 09/26/21 12:40:00 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 Lactated 2020-09 No Route: IV, Mem oria Ringers 2-31 Total l Injection 17:40: Volume: Roz nn IV (ANES) 00 1,000, 1000 mL Start date: 09/26/21 11:40:00 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, Stop date: 09/26/21 12:40:00 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 Lactated 2020-09 No Route: IV, Mem oria Ringers 2-31 Total l Injection 17:40: Volume: Roz nn IV (ANES) 00 1,000, 1000 mL Start date: 09/26/21 11:40:00 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, Stop date: 09/26/21 12:40:00 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 Lactated 2020-09 No Route: IV, Mem oria Ringers 2-31 Total l Injection 17:40: Volume: Roz nn IV (ANES) 00 1,000, 1000 mL Start date: 09/26/21 11:40:00 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, Stop date: 09/26/21 12:40:00 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 Calcium 2020-09 No 1,000 mL, Memor ia Chloride 2-31 Rate: 75 l 0.0014 15:58: ml/hr, Michael MEQ/ML / 00 Infuse Potassium over: 13.3 Chloride hr, Route: 0.004 IV, Dosing MEQ/ML / Weight Sodium 99.545 kg, Chloride Total 0.103 Volume: MEQ/ML / 1,000, Sodium Start Lactate date: 0.028 09/26/21 MEQ/ML 9:58:00 Injectable 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, Solution Duration: 30 day, Stop date: 10/26/21 9:57:00 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, BSA: 2.22 m2, 0 Calcium 2020-09 No 1,000 mL, Memor ia Chloride 2-31 Rate: 75 l 0.0014 15:58: ml/hr, [place] MEQ/ML / 00 Infuse Potassium over: 13.3 Chloride hr, Route: 0.004 IV, Dosing MEQ/ML / Weight Sodium 99.545 kg, Chloride Total 0.103 Volume: MEQ/ML / 1,000, Sodium Start Lactate date: 0.028 21 MEQ/ML 9:58:00 Injectable 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, Solution Duration: 30 day, Stop date: 10/26/21 9:57:00 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, BSA: 2.22 m2, 0 Calcium 2020-09 No 1,000 mL, Memor ia Chloride 2-31 Rate: 75 l 0.0014 15:58: ml/hr, [place] MEQ/ML / 00 Infuse Potassium over: 13.3 Chloride hr, Route: 0.004 IV, Dosing MEQ/ML / Weight Sodium 99.545 kg, Chloride Total 0.103 Volume: MEQ/ML / 1,000, Sodium Start Lactate date: 0.028 09/26/21 MEQ/ML 9:58:00 Injectable 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, Solution Duration: 30 day, Stop date: 10/26/21 9:57:00 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, BSA: 2.22 m2, 0 Calcium 2020-09 No 1,000 mL, Memor ia Chloride 2-31 Rate: 75 l 0.0014 15:58: ml/hr, [place] MEQ/ML / 00 Infuse Potassium over: 13.3 Chloride hr, Route: 0.004 IV, Dosing MEQ/ML / Weight Sodium 99.545 kg, Chloride Total 0.103 Volume: MEQ/ML / 1,000, Sodium Start Lactate date: 0.028 09/26/21 MEQ/ML 9:58:00 Injectable 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, Solution Duration: 30 day, Stop date: 10/26/21 9:57:00 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, BSA: 2.22 m2, 0 Calcium 2020-09 No 1,000 mL, Memor ia Chloride 2-31 Rate: 75 l 0.0014 15:58: ml/hr, [place] MEQ/ML / 00 Infuse Potassium over: 13.3 Chloride hr, Route: 0.004 IV, Dosing MEQ/ML / Weight Sodium 99.545 kg, Chloride Total 0.103 Volume: MEQ/ML / 1,000, Sodium Start Lactate date: 0.028 09/26/21 MEQ/ML 9:58:00 Injectable 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, Solution Duration: 30 day, Stop date: 10/26/21 9:57:00 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, BSA: 2.22 m2, 0 Calcium 2020-09 No 1,000 mL, Memor ia Chloride 2-31 Rate: 75 l 0.0014 15:58: ml/hr, Michael MEQ/ML / 00 Infuse Potassium over: 13.3 Chloride hr, Route: 0.004 IV, Dosing MEQ/ML / Weight Sodium 99.545 kg, Chloride Total 0.103 Volume: MEQ/ML / 1,000, Sodium Start Lactate date: 0.028 09/26/21 MEQ/ML 9:58:00 Injectable 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, Solution Duration: 30 day, Stop date: 10/26/21 9:57:00 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, BSA: 2.22 m2, 0 Folic Acid 2020-09 [...] Me moria 2-29 0 l 19:45: Refill(s) [place] 00 Folic Acid 2020-09 Yes 1 mg, PO, Me moria 2-29 0 l 19:45: Refill(s) [place] 00 Vitamin D2 2020-09 Yes 50 Memoria 2000 intl 2-29 microgram l units oral 19:44: = 1 cap, Her crews capsule 00 PO, Daily, 0 Refill(s) Vitamin D2 2020-09 Yes 50 Memoria 1999 intl 2-29 microgram l units oral 19:44: [...] UT) 00:00: (1000 UT) 00 hydroCHLORO hydroCHLORO 0 No 1{table QD [...] (90 Base) MCG/ACT MCG/ACT MCG/ACT Albuterol Albuterol 2021-0 No 1{puff_ Albuterol Sulfate HFA Sulfate HFA [...] (90 Base) MCG/ACT MCG/ACT MCG/ACT Albuterol Albuterol 2021-0 No 1{puff_ Albuterol Sulfate HFA Sulfate HFA [...] tab, PO, l tablet 20:18: Daily, # Michael 00 30 tab, 0 Refill(s) losartan Yes 100 mg, Memori a 1-15 PO, Daily, l 20:18: 0 Michael 00 Refill(s) levothyroxi Yes 75 Memori a ne 1-15 microgram, l 20:18: PO, Daily, Michael 00 0 Refill(s) finasteride Yes 5 mg = 1 Me moria 1-15 tab, PO, l 20:18: Daily, # Michael 00 30 tab, 0 Refill(s) lovastatin Yes 20 mg, PO, M emoria 1-15 0 l 20:18: Refill(s) [place] clopidogrel Yes 75 mg = 1 M emoria 75 mg oral 1-15 tab, PO, l tablet 20:18: Daily, # Michael 00 30 tab, 0 Refill(s) losartan 0 Yes 100 mg, Memori a 1-15 PO, Daily, l 20:18: 0 [place] 00 Refill(s) levothyroxi Yes 75 Memori a ne 1-15 microgram, l 20:18: PO, Daily, Michael 00 0 Refill(s) finasteride 2021-0 Yes 5 mg = 1 Me moria 1-15 tab, PO, l 20:18: Daily, # 30 tab, 0 Refill(s) lovastatin 0 Yes 20 mg, PO, M emoria 1-15 0 l 20:18: Refill(s) clopidogrel Yes 75 mg = 1 M emoria 75 mg oral 1-15 tab, PO, l tablet 20:18: Daily, # 30 tab, 0 Refill(s) losartan 0 Yes 100 mg, Memori a 1-15 PO, Daily, l 20:18: 0 Refill(s) levothyroxi Yes 75 Memori a ne 1-15 microgram, l 20:18: PO, Daily, 0 Refill(s) finasteride Yes 5 mg = 1 Me moria 1-15 tab, PO, l 20:18: Daily, # 30 tab, 0 Refill(s) lovastatin Yes 20 mg, PO, M emoria 1-15 0 l 20:18: Refill(s) clopidogrel Yes 75 mg = 1 M [...] Plus 0-03 Tania Plus - - 00:00: 00 Accu-Chek Accu-Chek 2019-1 No Accu-Chek Tania Plus Tania Plus 0-03 Tania Plus - - 00:00: - 00 Accu-Chek Accu-Chek 2018-1 No Accu-Chek Tania Plus Tnaia Plus 0-03 Tania Plus - - 00:00: [...] PO, Brodie douglas 6-22 Daily l 22:27: [place] [id number] aspirin Yes 81 mg, PO, Brodie douglas 6-22 Daily l 22:27: [place] [id number] metFORmin Yes 500 mg, Memor ia 6-22 PO, 1 tab l 22:27: with Michael 14 breakfast, 1 tab at noon, 2 at dinner metFORmin Yes 500 mg, Memor ia 6-22 PO, 1 tab l 22:27: with [place] 14 breakfast, 1 tab at noon, 2 at dinner metFORmin Yes 500 mg, Memor ia 6-22 PO, 1 tab l 22:27: with [place] 14 breakfast, 1 tab at noon, 2 at dinner metFORmin Yes 500 mg, Memor ia 6-22 PO, 1 tab l 22:27: with [place] 14 breakfast, 1 tab at noon, 2 at dinner Tamsulosin Tamsulosin Yes [place] 1 capsule Common HCl HCl [place] [facility] metFORMIN metFORMIN No metFORMIN HCl 500 [...] Source Systolic blood 2022-08-13 17:39:00 151 mm[facility]Hg[facility] 2022-08-13 17:39:00 94 mm[Hg] [facility] Heart rate 2022-08-13 17:39:00 82 /min [facility] Body temperature 2022-08-13 17:39:00 36.33 Ann[facility] Respiratory rate 2022-08-13 17:39:00 18 /min [facility] acute hospital Oxygen saturation in 2022-08-13 17:39:00 96 /min [facility] Arterial blood by [facility] Pulse oximetry Branch Body weight 2022-08-13 09:43:00 89.994 kg [facility] BMI 2022-08-13 09:43:00 29.30 kg/m2 [facility] Body height 2022-08-13 01:42:00 175.3 cm [facility] height 2022-06-19 11:00:00 69.5 [in_i] Common S [facility]irit - [facility] weight 2022-06-19 11:00:00 212 [lb_av] Common [facility] temperature 2022-06-19 11:00:00 98.6 [degF] Common [facility] bmi 2022-06-19 11:00:00 30.85 kg/m2 Common [facility] oximetry 2022-06-19 11:00:00 96 % Common [facility] respiratory rate 2022-06-19 11:00:00 17 /min Comm on [facility] blood pressure 2022-06-19 11:00:00 134 mm[Hg] Common [facility] - systolic [facility] blood pressure 2022-06-19 11:00:00 80 mm[Hg] Common [facility] - diastolic [facility] height 2022-06-19 10:40:00 69.5 [in_i] Common [facility] weight 2022-06-19 10:40:00 212 [lb_av] [facility] temperature 2022-06-19 10:40:00 98.6 [degF] Common [facility] bmi 2022-06-19 10:40:00 30.85 kg/m2 [facility] oximetry 2022-06-19 10:40:00 96 % [facility] respiratory rate 2022-06-19 10:40:00 17 /min Comm on [facility] blood pressure 2022-06-19 10:40:00 134 mm[Hg] Common [facility] - systolic [facility] blood pressure 2022-06-19 10:40:00 80 mm[Hg] Common [facility] - diastolic [facility] height 2022-06-15 11:20:00 69.5 [in_i] Common [facility] weight 2022-06-15 11:20:00 212 [lb_av] Common [facility] temperature 2022-06-15 11:20:00 98.2 [degF] Common [facility] bmi 2022-06-15 11:20:00 30.85 kg/m2 Common S pirit [facility] oximetry 2022-06-15 11:20:00 97 % Common S [facility] respiratory rate 2022-06-15 11:20:00 16 /min Comm on [facility] blood pressure 2022-06-15 11:20:00 134 mm[Hg] [facility] - systolic [facility] blood pressure 2022-06-15 11:20:00 76 mm[Hg] [facility] - diastolic [facility] Body height 2022-05-19 13:09:00 175.3 cm [facility] Body weight 2022-05-19 13:09:00 95.255 kg [facility] BMI 2022-05-19 13:09:00 31.01 kg/m2 [facility] height 2022-02-04 09:20:00 69.5 [in_i] Common S pirit [facility] weight 2022-02-04 09:20:00 211.8 [lb_av] [facility] temperature 2022-02-04 09:20:00 97.5 [degF] Common S pirit [facility] bmi 2022-02-04 09:20:00 30.83 [facility] oximetry 2022-02-04 09:20:00 95 % Common S pirit [facility] respiratory rate 2022-02-04 09:20:00 16 /min Comm on [facility] blood pressure 2022-02-04 09:20:00 134 mm[Hg] [facility] - systolic [facility] blood pressure 2022-02-04 09:20:00 78 mm[Hg] [facility] - diastolic [facility] height 2022-01-05 14:40:00 69.5 [in_i] Common S pirit [facility] weight 2022-01-05 14:40:00 210.4 [lb_av] Common [facility] temperature 2022-01-05 14:40:00 98.1 [degF] Common S pirit [facility] bmi 2022-01-05 14:40:00 30.62 kg/m2 Common S pirit [facility] oximetry 2022-01-05 14:40:00 97 % [facility] respiratory rate 2022-01-05 14:40:00 16 /min Comm on [facility] blood pressure 2022-01-05 14:40:00 138 mm[Hg] [facility] - systolic [facility] blood pressure 2022-01-05 14:40:00 74 mm[Hg] Common [facility] - diastolic [facility] height 2021-12-22 08:40:00 69.5 [in_i] Common [facility] weight 2021-12-22 08:40:00 216.8 [lb_av] [facility] temperature 2021-12-22 08:40:00 97.5 [degF] [facility] bmi 2021-12-22 08:40:00 31.55 kg/m2 [facility] oximetry 2021-12-22 08:40:00 97 % [facility] respiratory rate 2021-12-22 08:40:00 16 /min Comm on [facility] blood pressure 2021-12-22 08:40:00 136 mm[Hg] Common [facility] - systolic [facility] blood pressure 2021-12-22 08:40:00 78 mm[Hg] [facility] - diastolic [facility] height 2021-08-26 16:00:00 69.5 [in_i] [facility] weight 2021-08-26 16:00:00 213.2 [lb_av] [facility] temperature 2021-08-26 16:00:00 98.3 [degF] Common [facility] bmi 2021-08-26 16:00:00 31.03 kg/m2 Common [facility] oximetry 2021-08-26 16:00:00 97 % Common S [facility] respiratory rate 2021-08-26 16:00:00 16 /min Comm on [facility] blood pressure 2021-08-26 16:00:00 130 mm[Hg] Common [facility] - systolic [facility] blood pressure 2021-08-26 16:00:00 72 mm[Hg] Common [facility] - diastolic [facility] height 2021-06-24 08:00:00 69.5 [in_i] Common [facility] weight 2021-06-24 08:00:00 221.8 [lb_av] [facility] temperature 2021-06-24 08:00:00 99.0 [degF] [facility] bmi 2021-06-24 08:00:00 32.28 kg/m2 [facility] oximetry 2021-06-24 08:00:00 97 % [facility] respiratory rate 2021-06-24 08:00:00 16 /min Comm on [facility] blood pressure 2021-06-24 08:00:00 138 mm[Hg] [facility] systolic [facility] blood pressure 2021-06-24 08:00:00 88 mm[Hg] Common [facility] - diastolic [facility] height 2021-03-25 08:40:00 69.5 [in_i] Common S [facility] weight 2021-03-25 08:40:00 226.8 [lb_av] [facility] temperature 2021-03-25 08:40:00 97.8 [degF] [facility] bmi 2021-03-25 08:40:00 33.01 kg/m2 [facility] oximetry 2021-03-25 08:40:00 98 % Common S [facility] respiratory rate 2021-03-25 08:40:00 16 /min Comm on [facility] blood pressure 2021-03-25 08:40:00 136 mm[Hg] [facility] - systolic [facility] blood pressure 2021-03-25 08:40:00 76 mm[Hg] [facility] - diastolic [facility] Height 2023-02-12 13:17:00 5 [ft_i] [facility] [place] Weight 2023-02-12 13:17:00 [facility] [place] BMI Calculated 2023-02-12 13:17:00 Memori al [place] Systolic (mm Hg) 2023-02-12 13:17:00 Brodie rial [place] Diastolic (mm Hg) 2023-02-12 13:17:00 Mem orial [place] Heart Rate 2023-02-12 13:17:00 [facility] [place] Systolic (mm Hg) 2023-01-12 20:10:00 Brodie rial [place] Diastolic (mm Hg) 2023-01-12 20:10:00 Mem orial [place] Heart Rate 2023-01-12 20:10:00 [facility] [place] Height 2023-01-12 20:10:00 5 [ft_i] [facility] [place] Weight 2023-01-12 20:10:00 [facility] BMI Calculated 2023-01-12 20:10:00 Memori al [place] Respitory Rate 2021-09-26 19:20:00 Memori al [place] Systolic (mm Hg) 2021-09-26 19:20:00 Brodie rial [place] Diastolic (mm Hg) 2021-09-26 19:20:00 Mem orial [place] Respitory Rate 2021-09-26 19:05:00 Memori al [place] Systolic (mm Hg) 2021-09-26 19:05:00 Brodie rial Michael Diastolic (mm Hg) 2021-09-26 19:05:00 Mem orial [place] Respitory Rate 2021-09-26 18:50:00 Memori al Michael Systolic (mm Hg) 2021-09-26 18:50:00 Brodie rial [place] Diastolic (mm Hg) 2021-09-26 18:50:00 Mem orial Michael Weight 2021-09-26 16:27:00 [facility] [place] BMI Calculated 2021-09-26 16:27:00 Db Boothe Heart Rate 2021-09-26 15:54:00 Cory Rodriguez Height 2021-09-24 19:39:00 175.26 cm Cory Rodriguez Height 2021-09-24 15:25:00 175.26 cm Cory Rodriguez Weight 2021-09-24 15:25:00 Cory Rodriguez BMI Calculated 2021-09-24 15:25:00 Db Boothe Procedures Procedure Date / Time Performing Clinician Source Performed NOTICE OF PRIVACY 2023-01-07 13:09:51 Doctor Unassigned, No [facility] PRACTICES Name [facility] CONSENT/REFUSAL FOR 2023-01-07 13:09:26 Doctor Unassigned, No [facility] DIAGNOSIS AND TREATMENT Name [facility] ASSIGNMENT OF BENEFITS 2023-01-07 13:08:59 Doctor Unassigned, No [facility] Name [facility] TRANSTHORACIC ECHO (TTE) 2022-08-13 20:02:00 Andre David [facility] COMPLETE W/ CONTRAST [facility] POCT GLUCOSE (AUTOMATED) 2022-08-13 17:40:00 Alexandre Montemayor [facility] POCT GLUCOSE (AUTOMATED) 2022-08-13 13:32:00 Alexandre Montemayor [facility] MAGNESIUM 2022-08-13 09:50:00 [facility] BASIC METABOLIC PANEL 2022-08-13 09:50:00 Alexandre Montemayor [facility] (NA, K, CL, CO2, Medical [facility] GLUCOSE, BUN, CREATININE, CA) CBC WITH DIFF 2022-08-13 09:50:00 Alexandre Montemayor [facility] PHOSPHORUS 2022-08-13 03:53:[facility] 2022-08-13 02:32:00 [facility] POCT GLUCOSE (AUTOMATED) 2022-08-13 01:22:00 Alexandre Montemayor [facility] CT ANGIOGRAM CHEST 2022-08-12 19:53:05 [facility] 2022-08-12 19:53:05 Leonora Ruby [facility] ABDOMEN/PELVIS [facility] HB ECG ROUTINE & RHYTHM 2022-08-12 19:09:59 Leonora Ruby [facility] TROPONIN I 2022-08-12 19:08:00 Leonora Ruby [facility] HB ECG ROUTINE & RHYTHM 2022-08-12 18:01:56 Leonora Ruby [facility] LIPASE 2022-08-12 17:05:[facility]22-08-12 17:05[facility]. MET[facility]OLIC PANEL 2022-08-12 17:05:00 Leonora Ruby [facility] ([id number]) [facility] CBC WITH DIFF 2022-08-12 17:05:00 [facility]OGLOBIN 2022-08-12 17:05:00 Andre David [facility] (A1C) [facility] PROTHROMBIN TIME / INR 2022-08-12 17:05:00 Leonora Ruby [facility] URINALYSIS 2022-08-12 17:05:00 [facility]-BNP 2022-08-12 17:05:00 Leonora Ruby [facility] HB ECG ROUTINE & RHYTHM 2022-08-12 16:51:46 Leonora Ruby [facility] CONSENT/REFUSAL FOR 2022-08-12 16:16:12 Doctor Unassigned, No [facility] DIAGNOSIS AND TREATMENT Name [facility] REFERRAL- 2022-06-16 05:01:00 Doctor Unassigned, No [facility] REQUEST/RESPONSE Name [facility] CT, urogram 2018-07-07 00:00:00 [facility] 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 am[facility]<sup>1</sup> Laminectomy<sup>2</sup> [facility] Procedure on [facility] foot<sup>3</sup> Plan of Care Planned Activity Planned Date Details Comments Source Diagnostic Test 2018-07-07 cytology, urine [facility] Pending 00:00:00 [code = cytology, Group urine] Encounters Start End Encounter Admission Attending Care Care Encounter Source Date/Time Date/Time Type Type Clinicians Facility Department ID 2022-09-15 Outpatient Tee, STRIGO STLMLC [id number] Common 09:28:02 Maira 21384 [facility] 2021-10-22 Outpatient Oliveira, STABHINAVLC STLC [id number] Common 14:27:24 Maira 63468 [facility] 2021-10-22 Outpatient Oliveira, STABHINAVLC STLC [id number] Common 14:18:00 Maira 04234 [facility] 2021-10-22 Outpatient Carroll, STLMLC STLC [id number] Common 13:35:45 Regina 69847 [facility] 2021-10-22 Outpatient Carroll, STLMLC STLC [id number] Common 12:41:58 Regina 52795 [facility] 2021-10-22 Outpatient [place], STLMLC STLC [id number] Common 12:40:52 Regina 89968 [facility] 2021-10-22 Outpatient [place], STLMLC STLC [id number] Common 12:12:33 Regina 43370 [facility] 2021-10-22 Outpatient [place], STLMLC STLMLC [id number] Common 11:56:49 Regina 89207 [facility] 2021-10-22 Outpatient [place], STLMLC STLMLC [id number] Common 11:56:09 Regina 92492 [facility] 2021-10-22 Outpatient [place], STLMLC STLMLC [id number] Common 11:21:52 Regina 51704 [facility] 2021-10-22 Outpatient [place], STLMLC STLMLC [id number] Common 11:07:15 Regina 75015 [facility] 2021-10-22 Outpatient [place], STLMLC STLMLC [id number] Common 11:06:53 Regina 31090 [facility] 2021-10-[address] [facility] [id number] Common 10:59:53 Regina 91698 [facility] 2021-07-28 Emergency [facility] [id number] Univers 23:28:16 [facility] 2023-03-26 2023-03-26 Outpatient MHIE MHIE [id number] Memoria 09:45:00 09:45:00 [place] 2023-03-26 2023-03-26 Outpatient MHIE MHIE [id number] Memoria 09:45:00 09:45:00 02 eb Rodriguez 2023-02-16 2023-02-16 Outpatient MHIE MHIE [id number] Memoria 11:00:00 11:00:00 03 eb Rodriguez 2023-02-12 2023-02-13 Outpatient MHIE MNA [id number] Memoria 13:15:00 04:59:59 Neurology 01 eb Rodriguez 2023-02-12 2023-02-12 Outpatient SAADIA HaysMISCHER MHMISCHER [id number] 08:15:00 23:59:59 Jeison 01 Grayson 2023-02-12 2023-02-12 Outpatient MHIE MHIE [id number] Memoria 08:15:00 08:15:00 01 eb Rodriguez 2023-02-12 2023-02-12 Outpatient MHIE MHIE [id number] Memoria 08:15:00 08:15:00 01 eb Rodriguez 2023-01-12 2023-01-13 Outpatient MHIE MNA [id number] Memoria 20:15:00 04:59:59 Neurology 00 eb Rodriguez 2023-01-12 2023-01-13 Outpatient MHIE MNA [id number] Memoria 20:15:00 04:59:59 Neurology 00 eb Rodriguez 2023-01-12 2023-01-12 Outpatient Lis MHMISCHER MHMISCHER [id number] 15:15:00 23:59:59 Jeison 00 [place] 2023-01-12 2023-01-12 Outpatient MHIE MHIE [id number] Memoria 15:15:00 15:15:00 00 l Michael 2023-01-07 2023-01-07 Hospital Radiology [facility] 1.2.840.114 [id number] Univers 08:11:54 23:59:00 Encounter GIL 350.1.13.10 [place] of [place] [id number] [facility] [address] 2023-01-07 2023-01-07 Outpatient R RADIOLOGY [facility] [id number] Univers 00:00:00 23:59:00 ity [facility] 2022-10-28 2022-10-28 (TEL) STLMLC STLMLC [id number] Co mmon 00:00:00 00:00:00 [facility] 2022-08-14 2022-08-14 Transition LORI RiceViktor 1.2.840.114 [id number] Univers 00:00:00 00:00:00 of [place] ELAM 350.1.13.10 it y of [place] 4.2.7.2.686 [facility] [id number] [facility] [address] 2022-08-14 2022-08-14 (TEL) STLMLC STLMLC [id number] Co mmon 00:00:00 00:00:00 [facility] 2022-08-12 2022-08-13 Outpatient X LUCERO, [facility] [id number] Univers 10:44:00 16:22:00 EARL ity [facility] 2022-08-12 2022-08-13 Emergency Ruby, Leonora [facility] 1.2.840 .114 [id number] Univers 10:44:00 16:22:00 Alexandre Montemayor 350.1.13.10 ity of [place] 4.2.7.2.686 [facility] [id number] [facility] [address] 2022-06-22 2022-06-22 (TEL) STLMLC STLMLC [id number] Co mmon 00:00:00 00:00:00 [facility] 2022-06-19 2022-06-19 (MCR WELL) [facility] [id number] Common 00:00:00 00:00:00 Medicare Spiri t Wellness - [facility] 2022-06-19 2022-06-19 OFFICE [facility] [id number] Co mmon 00:00:00 00:00:00 VISIT EST Spir it PT LEVEL 3 - [facility] 2022-06-16 2022-06-16 Orders Doctor MEGAN 1.2.840.114 [id number] Univers 00:00:00 00:00:00 Only Unassigned, ANASTASIA 350.1.13.10 ity of [place] [facility] 4.2.7.2.686 Ty as [phone] [address] 2022-06-15 2022-06-15 [facility]ICE [facility] [id number] Co mmon 00:00:00 00:00:00 VISIT EST Spir it PT LEVEL 3 [facility] 2022-05-21 2022-05-21 Telephone Nila [facility] 1.2.840.114 [id number] Univers 00:00:00 00:00:00 [facility] HEALTH 350.1.13.10 it y [facility] 4.2.7.2.686 [place] as MANOJ?BLEA [id number] Co nikita AREVALO [address] [place] [address] OFFICE [facility] 2022-05-19 2022-05-19 Office Sarbjit [facility] 1.2.840.114 [id number] Univers 08:45:00 09:00:00 Visit [facility] 350.1.13.10 it y of [place] 4.2.7.2.686 [place] as MANOJ?BLEA [id number] Co dical HILDA [address] [place] [address] OFFICE [facility] 2022-05-19 2022-05-19 Outpatient R SARBJIT [facility] [id number] Univers 08:45:00 08:45:00 BRIAN chinchilla [facility] 2022-05-19 2022-05-19 Outpatient R SARBJIT [facility] [id number] Univers 08:45:00 08:45:00 BRIAN chinchilla [facility] 2022-05-16 2022-05-16 Outpatient R RADIOLOGY [facility] [id number] Univers 07:47:58 23:59:00 ity of [facility] 2022-05-16 2022-05-16 Hospital Radiology [facility] 1.2.840.114 [id number] Univers 07:47:58 23:59:00 Encounter [place] 350.1.13.10 ity of [facility] 4.2.7.2.[place] [id number] [facility] [address] 2022-05-16 2022-05-16 Outpatient R RADIOLOGY [facility] [id number] Univers 07:47:58 23:59:00 ity of [facility] 2022-05-14 2022-05-14 [facility] Radiology [facility] 1.2.840.114 [id number] Univers 08:30:00 08:30:00 Encounter Y HEALTH 350.1.13.10 ity of [facility] 4.2.7.2.686 [place] [id number] [facility] [address] 2022-05-14 2022-05-14 Outpatient R RADIOLOGY [facility] [id number] Univers 00:00:00 00:00:00 ity of [facility] 2022-05-14 2022-05-14 Outpatient R RADIOLOGY [facility] [id number] Univers 00:00:00 00:00:00 ity of [facility] 2022-05-12 2022-05-12 [facility] 1.2.840.114 [id number] Univers 00:00:00 00:00:00 Wallace L HEALTH 350.1.13.10 it y of [place] 4.2.7.2.686 [place] as MANOJ?BLEA [id number] [address] MEDICAL OFFICE BUILDING 2022-05-11 2022-05-11 [facility] [id number] Univers 15:14:20 23:59:00 WALLACE ity of [facility] 2022-05-11 2022-05-11 [facility] 1.2.840.114 [id number] Univers 15:14:20 23:59:00 Encounter Wallace L [place] 350.1.13.10 ity of [facility] 4.2.7.2.[place] [id number] [facility] [address] [place] 2022-05-11 2022-05-11 Office [facility] 1.2.734.971 [id number] Univers 14:45:00 14:45:00 Visit Wallace Edge [facility] 350.1.13.10 it y of [place] 4.2.7.2.686 Ty as MANOJ?BLEA [id number] Co nikita AREVALO [address] [facility] OFFICE [facility] 2022-05-11 2022-05-11 [facility] [id number] Univers 14:45:00 14:34:12 [facility] 2022-05-07 2022-05-07 Telephone [facility] 1.2.840.114 [id number] Univers 00:00:00 00:00:00 Wallace Edge [facility] 350.1.13.10 it y of [place] 4.2.7.2.686 Ty as MANOJ?BLEA [id number] Co richardtanja AREVALO [address] [place] [address] OFFICE [facility] 2022-03-05 2022-03-05 (TEL) ST[facility] [id number] Co mmon 00:00:00 00:00:00 [facility] 2022-03-03 2022-03-03 [facility] [id number] Univers 13:04:32 23:59:00 [facility] 2022-03-03 2022-03-03 Office [facility] 1.2.840.114 [id number] Univers 13:45:00 14:00:00 Visit [facility] 350.1.13.10 it y of [place] 4.2.7.2.686 [place] as MANOJ?BLEA [phone] Co nikita AREVALO [address] [place] [address] OFFICE [facility] 2022-03-03 2022-03-03 [facility] [id number] Univers 13:45:00 13:45:00 [facility] 2022-02-16 2022-02-16 Outpatient Alec SCHAFFER [facility] [id number] Univers 13:27:13 23:59:00 [facility] 2022-02-16 2022-02-16 [facility] [id number] Univers 13:27:13 23:59:00 BRIAN chinchilla [facility] 2022-02-16 2022-02-16 Office [facility] 1.2.840.114 [id number] Univers 13:45:00 14:00:00 Visit Brian Maciel HEALTH 350.1.13.10 it y of [place] 4.2.7.2.686 [place] as MANOJ?BLEA [phone] Co richardtanja [address] OFFICE [facility] 2022-02-16 2022-02-16 Outpatient [facility] [id number] Univers 13:45:00 13:45:00 BRIAN chinchilla [facility] 2022-02-16 2022-02-16 Orders Doctor MEGAN 1.2.840.114 [id number] Univers 00:00:00 00:00:00 Only Unassigned, ANASTASIA 350.1.13.10 ity of [place] [facility] 4.2.7.2.686 Ty as [id number] [address] 2022-02-16 2022-02-16 Telephone [facility] 1.2.762.872 [id number] Univers 00:00:00 00:00:00 Brian Maciel HEALTH 350.1.13.10 it y of [place] 4.2.7.2.686 Ty as MANOJ?BLEA [phone] Co richard[address] OFFICE [facility] 2022-02-05 2022-02-05 Orders Doctor MEGAN 1.2.840.114 [id number] Univers 00:00:00 00:00:00 Only Unassigned, ANASTASIA 350.1.13.10 ity of [place] HOSPITAL 4.2.7.2.686 Ty as [id number] [address] 2022-02-04 2022-02-04 OFFICE STLC STLC [id number] Co mmon 00:00:00 00:00:00 VISIT EST Spir it PT LEVEL 3 - [facility] 2022-01-19 2022-01-19 (TEL) [facility] [id number] Co mmon 00:00:00 00:00:00 [facility] 2022-01-05 2022-01-05 OFFICE STLMLC STLMLC [id number] Co mmon 00:00:00 00:00:00 VISIT EST Spir it PT LEVEL 3 - [facility] 2021-12-22 2021-12-22 OFFICE STLMLC STLMLC [id number] Co mmon 00:00:00 00:00:00 VISIT Spirit ESTAB PT - CHI LEVEL 4 [facility] 2021-11-20 2021-11-20 (TEL) STLMLC STLMLC [id number] Co mmon 00:00:00 00:00:00 [facility] 2021-10-21 2021-10-21 (TEL) STLMLC STLMLC [id number] Co mmon 00:00:00 00:00:00 [facility] 2021-10-02 2021-10-02 (TEL) STLMLC STLMLC [id number] Co mmon 00:00:00 00:00:00 [facility] 2021-09-26 2021-09-26 Day [facility] [id number] Memoria 14:19:00 19:21:00 Surgery r [place] 02 [facility] 2021-09-26 2021-09-26 Day [facility] [id number] Memoria 14:19:00 19:21:00 Surgery r [place] 02 [facility] 2021-09-26 2021-09-26 Outpatient SAADIA NashPL MHPL [id number] 08:19:00 13:21:00 Braxton Coleman Magdi 2021-09-26 2021-09-26 Outpatient SAADIA NASHBL MHBL [id number] MHBL 08:19:00 13:21:00 [place] 2021-09-12 2021-09-12 (TEL) STLMLC STLMLC [id number] Co mmon 00:00:00 00:00:00 [facility] 2021-09-08 2021-09-08 (TEL) STLMLC STLMLC [id number] Co mmon 00:00:00 00:00:00 [facility] 2021-09-02 2021-09-02 Outpatient R NIURKANEW [facility] OPH [id number] Univers 06:24:00 09:17:00 CHE chinchilla [facility] 2021-09-02 2021-09-02 [facility] 1.2.840.114 [id number] Univers 06:24:00 09:17:00 Encounter Che CORDERO 350.1.13.10 ity of [place].2.[place]ICAL [id number] [facility] [address] 2021-09-02 2021-09-02 [facility] 1.2.726.642 [id number] Univers 07:30:00 08:31:00 Che CORDERO 350.1.13.10 ity of [place] [id number] [facility] [address] 2021-09-01 2021-09-01 Outpatient R [facility] [id number] Univers 09:45:00 09:45:00 CHE chinchilla [facility] 2021-09-01 2021-09-01 Laboratory Only, Adc Test [facility] 1.2.840. 114 [id number] Univers 08:58:02 09:13:02 Only Che Bah 350.1.13. 10 it[place] of [place].2.[place] [id number] [facility] [address] 2021-09-01 2021-09-01 Orders Doctor MEGAN 1.2.840.114 [id number] Univers 00:00:00 00:00:00 Only Unassigned, ANASTASIA 350.1.13.10 [facility] 4.2.7.2.686 [place] as [id number] [facility] [address] 2021-09-01 2021-09-01 (TEL) [facility] ST[facility] [id number] Co mmon 00:00:00 00:00:00 [facility] 2021-08-26 2021-08-26 [facility]ICE [facility] ST[facility] [id number] Co mmon 00:00:00 00:00:00 VISIT EST Spir it PT LEVEL 3 - [facility] 2021-08-19 2021-08-19 (TEL) STLMLC STLMLC [id number] Co mmon 00:00:00 00:00:00 [facility] 2021-08-13 2021-08-13 Outpatient R SARBJIT [facility] [id number] Univers 13:15:00 13:15:00 BRIAN callessaleem [facility] 2021-08-13 2021-08-13 Office [facility] 1.2.840.114 [id number] Univers 12:47:28 13:02:28 Visit Brian SeatKarma 350.1.13.10 it y of [place] 4.2.7.2.686 Ty as MANOJ?BLEA [id number] [facility] [address] [facility] OFFICE [facility] 2021-08-13 2021-08-13 Telephone [facility] 1.2.840.114 [id number] Univers 00:00:00 00:00:00 Wallace Edge SeatKarma 350.1.13.10 it y of SURGICAL 4.2.7.2.686 Ty as SPECIALTI [id number] Co dical 198 [facility] 2021-07-29 2021-07-29 (TEL) STLMLC STLMLC [id number] Co mmon 00:00:00 00:00:00 [facility] 2021-07-25 2021-07-25 (TEL) STLMLC STLMLC [id number] Co mmon 00:00:00 00:00:00 [facility] 2021-07-21 2021-07-21 [facility] 1.2.840.114 [id number] Univers 13:35:00 23:59:00 Encounter Wallace Edge Novinda 350.1.13.10 ity of [place] 4.2.7.2.686 Ty as Manoj?Blea [id number] Co dicma lolis [address] [place] Medical Office [facility] 2021-07-21 2021-07-21 [facility] [id number] Univers 13:35:00 23:59:00 WALLACE chinchilla [facility] 2021-07-21 2021-07-21 Outpatient Alec DOTSON [facility] [id number] Univers 13:30:00 14:45:07 WALLACE chinchilla [facility] 2021-07-21 2021-07-21 Office [facility] 1.2.250.537 [id number] Univers 13:00:10 14:45:07 Visit Wallace [facility] 350.1.13.10 Alan 4.2.7.2.686 Ty as MANOJ?BLEA [id number] [address] MEDICAL OFFICE [facility] 2021-07-21 2021-07-21 Outpatient Alec DOTSON [facility] [id number] Univers 13:30:00 13:30:00 WALLACE chinchilla [facility] 2021-07-21 2021-07-21 (TEL) STLMLC STLMLC [id number] Co mmon 00:00:00 00:00:00 [facility] 2021-07-11 2021-07-11 (TEL) STLMLC STLMLC [id number] Co mmon 00:00:00 00:00:00 [facility] 2021-07-11 2021-07-11 OFFICE STLMLC STLMLC [id number] Co mmon 00:00:00 00:00:00 VISIT Psychiatric PT - CHI LEVEL 1 [facility] 2021-07-07 2021-07-07 (TEL) STLMLC STLMLC [id number] Co mmon 00:00:00 00:00:00 [facility] 2021-06-29 2021-06-29 (TEL) STLMLC STLMLC [id number] Co mmon 00:00:00 00:00:00 [facility] 2021-06-24 2021-06-24 OFFICE STLMLC STLMLC [id number] Co mmon 00:00:00 00:00:00 VISIT Psychiatric PT - CHI LEVEL 4 [facility] 2021-06-13 2021-06-13 Emergency [facility] 1.2.840.114 [id number] Univers 14:19:00 18:37:00 Shannon Cordero 350.1.13.10 amor de león [place] 4.2.7.2.686 [facility] [id number] [facility] [address] 2021-06-06 2021-06-06 Outpatient STLMLC STLMLC [id number] Common 00:00:00 00:00:00 [facility] 2021-05-05 2021-05-05 Outpatient STLMLC STLMLC [id number] Common 00:00:00 00:00:00 [facility] 2021-04-30 2021-04-30 Outpatient STLMLC STLMLC [id number] Common 00:00:00 00:00:00 [facility] 2021-04-30 2021-04-30 Outpatient STLMLC STLMLC [id number] Common 00:00:00 00:00:00 [facility] 2021-04-25 2021-04-25 Outpatient STLMLC STLMLC [id number] Common 00:00:00 00:00:00 [facility] 2021-04-03 2021-04-03 Outpatient STLMLC STLMLC [id number] Common 00:00:00 00:00:00 [facility] 2021-03-25 2021-03-25 OFFICE STLMLC STLMLC [id number] Co mmon 00:00:00 00:00:00 VISIT [facility] 4 [facility] 2021-01-24 2021-01-24 Outpatient STLMLC STLMLC [id number] Common 00:00:00 00:00:00 [facility] 2021-01-17 2021-01-17 Outpatient STLMLC STLMLC [id number] Common 00:00:00 00:00:00 [facility] 2021-01-13 2021-01-13 Outpatient STLMLC STLMLC [id number] Common 00:00:00 00:00:00 [facility] 2021-01-10 2021-01-10 Outpatient STLMLC STLMLC [id number] Common 00:00:00 00:00:00 [facility] 2020-12-31 2020-12-31 Outpatient STLMLC STLMLC [id number] Common 00:00:00 00:00:00 [facility] 2020-12-25 2020-12-25 Outpatient Alec NILA [facility] [id number] Univers 13:45:00 13:45:00 [facility] 2020-12-25 2020-12-25 Office [facility] 1.2.440.734 [id number] 12:51:24 13:25:03 Visit [facility] 350.1.13.10 Surgical 4.2.7.2.686 [facility] [id number] es [address] [place] 2020-12-23 2020-12-23 [facility] [id number] Univers 13:45:00 13:45:00 [facility] 2020-12-23 2020-12-23 Outpatient STLMLC STLMLC [id number] Common 00:00:00 00:00:00 [facility] 2020-12-21 2020-12-21 Outpatient STLMLC STLMLC [id number] Common 00:00:00 00:00:00 [facility] 2020-12-19 2020-12-19 Outpatient STLMLC STLMLC [id number] Common 00:00:00 00:00:00 [facility] 2020-12-17 2020-12-17 Outpatient STLMLC STLMLC [id number] Common 00:00:00 00:00:00 [facility] 2020-12-17 2020-12-17 Outpatient STLMLC STLMLC [id number] Common 00:00:00 00:00:00 [facility] 2020 2020 Outpatient STLMLC STLMLC [id number] Common 00:00:00 00:00:00 [facility] 2020-12-09 2020-12-09 Outpatient STLMLC STLMLC [id number] Common 00:00:00 00:00:00 [facility] 2020-11-07 2020-11-07 Outpatient STLMLC STLMLC [id number] Common 00:00:00 00:00:00 [facility] 2020-11-04 2020-11-04 Outpatient STLMLC STLMLC [id number] Common 00:00:00 00:00:00 [facility] 2020-11-04 2020-11-04 Outpatient STLMLC STLMLC [id number] Common 00:00:00 00:00:00 [facility] 2020-10-15 2020-10-15 Outpatient NAS[facility], [id number] 07:11:00 12:00:00 [place] 2020-09-09 2020-09-09 Outpatient STLMLC STLMLC [id number] Common 00:00:00 00:00:00 [facility] 2020-08-14 2020-08-14 Outpatient Young_J MMG MMG [id number] [place] 02:37:00 02:37:00 [facility] 2020-07-16 2020-07-16 Outpatient STLMLC STLMLC [id number] Common 00:00:00 00:00:00 [facility] 2020-07-04 2020-07-04 Outpatient Alec DOTSON [facility] [id number] Univers 08:00:00 08:00:00 [facility] 2020-05-06 2020-05-06 [facility] [id number] Common 10:52:00 10:52:00 [facility] 2020-04-15 2020-04-15 Outpatient Alec SCHAFFER [facility] [id number] Univers 15:45:00 15:45:00 BRIAN [facility] 2020-04-11 2020-04-11 Outpatient Alec DOTSON [facility] [id number] Univers 15:30:00 15:30:00 [facility] 2020-04-10 2020-04-10 Out[facility] [id number] Common 13:19:00 13:19:00 [facility] 2020-04-08 2020-04-08 Outpatient [facility] [id number] Common 11:08:00 11:08:[address] [facility] 2020-04-05 2020-04-05 Outpatient [facility] [id number] Common 18:34:00 18:34:[address] [facility] 2020-03-07 2020-03-07 Outpatient Alec DOTSON, [facility] [id number] [facility] 15:00:00 [facility]:00[facility] 2020-[facility] 2020-01-09 [facility] [id number] Common 14:23:00 14:23:[address] [facility] 2020-01-08 2020-01-08 Outpatient [facility] [id number] Common 08:00:00 08:00:[address] [facility] 2019-11-22 2019-11-22 Outpatient [facility] [id number] Common 19:45:00 19:45:[address] [facility] 2019-11-08 2019-11-08 Outpatient [facility] [id number] Common 09:12:00 09:12:[address] [facility] 2019-11-07 2019-11-07 Outpatient [facility] [id number] Common 08:17:00 08:17:[address] [facility] 2019-10-19 2019-10-19 Outpatient [facility] [id number] Common 15:57:00 15:57:[address] [facility] 2019-10-18 2019-10-18 Outpatient [facility] [id number] Common 09:24:00 09:24:[address] [facility] 2019-10-17 2019-10-17 [facility] [id number] Common 09:00:00 09:00:[address] [facility] 2019-10-11 2019-10-11 Outpatient O [facility] [id number] [facility] 15:30:52 15:30:[facility]10[facility] 2019-10-09 [facility] [id number] Common 10:27:00 10:27:00 [facility] it Road [facility] 2019-10-09 2019-10-09 [facility] [id number] Common 09:00:00 09:00:00 [facility] it Road [facility] 2018-08-08 2018-08-08 Saravanan ABDALLA [place] - [id number] M atagor 00:00:00 00:00:00 DO Terrance: [facility] [address] - [address] [address] , Ph. [phone] 2018-08-04 2018-08-04 Jose Noe MM [place] - [id number] M atagor 00:00:00 00:00:00 MD Bobbi: [address], [place] [phone] , Ph. 2018-07-07 2018-07-07 Jose Noe MM [place] - [id number] M atagor 00:00:00 00:00:00 MD Bobbi: [place] [address], [place] [phone] , Ph. Results Test Description Test Time Test Comments Results Result Comments Source Transthoracic echo (TTE) 2022-08-13 22:32:11 Test Item Value Reference Range Interpretation Comme nts Height (test code = 7740605391) in Weight (test code = 0351514976) lbs Systolic BP (test code = 0298517068) mmHg Diastolic BP (test code = 4844129446) mmHg Heart Rate (test code = 8550978144) bpm BSA (test code = 8151748840) 2.06 m2 Ao root diam (test code = 9640890128) 4.10 cm Aortic root (test code = 7474274965) 4.1 cm Ao root annulus (test code = 4.1 cm 9019559036) LVOT diameter (test code = 3502629945) 2.13 cm LVOT area (test code = 9694205496) 3.60 cm2 LA size (test code = 7024114916) 2.7 cm LAV(MOD-sp4) (test code = 3569023502) 46.70 mL E wave decelartion time (test code = 0.17 s 9946802856) MV stenosis pressure 1/2 time (test 51.2 ms code = 5048910612) MV Peak A Bobby (test code = 6039715304) 65.7 cm/s MV Peak E Bobby (test code = 3136442088) 52.5 cm/s E/A ratio (test code = 6653477660) ratio MV Prop V (test code = 4749248900) 58.90 cm/s MV E/e' septal (test code = 8.6 cm/s 2535814968) Tapse (test code = 1871165423) 2.07 cm LVOT stroke volume (test code = 56.50 cm3 2177218091) LVOT peak bobby (test code = 6133644341) 83.0 cm/s LVOT mn grad (test code = 5058988737) mmHg AV LVOT peak gradient (test code = mmHg 4403986894) LVOT peak VTI (test code = 3505309613) 15.9 cm LV V1 mean (test code = 5433076421) 57.80 cm/s Aortic valve mean velocity (test code 86.0 cm/s = 2301171862) Ao peak bobby (test code = 0986271241) 113.0 cm/s Ao VTI (test code = 8527986733) 21.8 cm AV area by cont VTI (test code = 2.6 cm2 0788363377) AV area peak bobby (test code = 2.6 cm2 2688841160) Ao max PG (test code = 7822507197) 5.10 mm[Hg] AV peak gradient (test code = mmHg 1616232642) AV valve area (test code = 0223090568) 2.60 cm2 AV mean gradient (test code = mmHg 0093718170) LVIDD (test code = 5540022419) 4.80 cm Left Ventricular End Diastolic Volume 109.8 mL by Teichholz Method (test code = 5851734) IVS (test code = 1828407303) 1.03 cm Interventricular Septum Diastolic 1.03 cm Thickness by 2D (test code = 8897595) LVPWD (test code = 5454924693) 1.04 cm PW (test code = 8775375638) 1.04 cm 0.6-1.1 EF(Teich) (test code = 7523751530) 64.10 % LVIDS (test code = 2324016261) 3.20 cm Left Ventricular End Systolic Volume 39.4 mL by Teichholz Method (test code = 9187892) FS (test code = 4771590263) 35 % EF - 2D (test code = 68839725) 64.10 % Radiology Study observation (narrative) (test code = 70096-4) SOFIYA (test code = SOFIYA) ?Left?Ventricle: Left [...] mL of Lumason ultrasound enhancing agent used. [facility] GLUCOSE (AUTOMATED)2022-08-13 18:19:00 Test Item Value Reference Range Interpretation Comments POCT GLU (test code = 5388815623) 196 mg/dL 70-110 H Lab Interpretation (test code = Abnormal 42978-5) [facility] GLUCOSE (AUTOMATED)2022-08-13 13:59:31 Test Item Value Reference Range Interpretation Comments POCT GLU (test code = 0430997856) 146 mg/dL 70-110 H Lab Interpretation (test code = Abnormal 80081-7) [facility] GLUCOSE (AUTOMATED)2022-08-13 01:25:38 Test Item Value Reference Range Interpretation Comments POCT GLU (test code = 6710204410) 102 mg/dL 70-110 Lab Interpretation (test code = Normal 00084-1) [id number] 19:44:37 Test Item Value Reference Interpretation Comments Range TROPONIN I (test 0.004 ng/mL See_Comment [Automated code = 4615411384) message] The system which generated this result [...] biotin. Lab Interpretation Normal (test code = 54378-3) [facility]2021-12-29 19:07:00 Test Item Value Reference Range Interpretation Comments Glucose Lvl (test code = Glucose Lvl) 153 70-99 [place] 544361-12-29 19:07:00 Test Item Value Reference Range Interpretation Comments BUN (test code = BUN) 18 7-22 [place] 544361-12-29 19:07:00 Test Item Value Reference Range Interpretation Comments Creatinine Lvl (test code = Creatinine 1.44 0.50-1.40 Lvl) [place] 544361-12-29 19:07:00 Test Item Value Reference Range Interpretation Comments Sodium Lvl (test code = Sodium Lvl) 132 135-145 [place] 544361-12-29 19:07:00 Test Item Value Reference Range Interpretation Comments Potassium Lvl (test code = Potassium 4.8 3.5-5.1 Lvl) [place] 544361-12-29 19:07:00 Test Item Value Reference Range Interpretation Comments Chloride Lvl (test code = Chloride Lvl) 99 95-109 [place] 544361-12-29 19:07:00 Test Item Value Reference Range Interpretation Comments CO2 (test code = CO2) 27 24-32 [place] 544361-12-29 19:07:00 Test Item Value Reference Range Interpretation Comments Calcium Lvl (test code = Calcium Lvl) 9.7 8.5-10.5 [place] 544361-12-29 19:07:00 Test Item Value Reference Range Interpretation Comments AGAP (test code = AGAP) 10.8 10.0-20.0 [place] 544361-12-29 19:07:00 Test Item Value Reference Range Interpretation Comments eGFR (test code = eGFR) 52 [place] 593981-12-29 19:07:00 Test Item Value Reference Range Interpretation Comments Segs (test code = Segs) 57.5 45.0-75.0 [place] 593981-12-29 19:07:00 Test Item Value Reference Range Interpretation Comments Lymphocytes (test code = Lymphocytes) 28.0 20.0-40.0 [place] 593981-12-29 19:07:00 Test Item Value Reference Range Interpretation Comments Monocytes (test code = Monocytes) 9.6 2.0-12.0 [place] 593981-12-29 19:07:00 Test Item Value Reference Range Interpretation Comments Eosinophils (test code = 4.4 See_Comment [A utomated message] The Eosinophils) system which ge nerated this result tra nsmitted reference range : <=4.0. The reference r glenn was not used to int erpret this result as normal/abnormal . [facility] CenterEqrrugpEZXGWEBZUZ3087-96-05 19:07:00 Test Item Value Reference Range Interpretation Comments Basophils (test code = 0.5 See_Comment [Aut omated message] The Basophils) system which ge nerated this result tra nsmitted reference range : <=1.0. The reference r glenn was not used to int erpret this result as normal/abnormal . [facility] CenterJansluzYCVZAFMTWD2023-23-13 19:07:00 Test Item Value Reference Range Interpretation Comments Neutrophils # (test code = Neutrophils 3.3 1.5-8.1 #) [facility] CenterGwtgnskTCQUABJVJQ5168-04-49 19:07:00 Test Item Value Reference Range Interpretation Comments Lymphocytes # (test code = Lymphocytes 1.6 1.0-5.5 #) [facility] CenterUmmoggcAYSTHKHYVI8267-30-46 19:07:00 Test Item Value Reference Range Interpretation Comments Monocytes # (test code 0.5 See_Comment [Aut omated message] The = Monocytes #) system which generated this result tra nsmitted reference range : <=0.8. The reference r glenn was not used to int erpret this result as normal/abnormal . [facility] CenterYtgebsoAIQSATHVLC6333-78-66 19:07:00 Test Item Value Reference Range Interpretation Comments Eosinophils # (test code 0.2 See_Comment [A utomated message] The = Eosinophils #) system whic h generated this result tra nsmitted reference range : <=0.5. The reference r glenn was not used to int erpret this result as normal/abnormal . [facility] CenterJxgdwviNRFLFEPALA6459-10-39 19:07:00 Test Item Value Reference Range Interpretation Comments WBC (test code = WBC) 5.7 3.7-10.4 [facility] CenterVfowiqnFNJEAUMBIR7015-62-54 19:07:00 Test Item Value Reference Range Interpretation Comments RBC (test code = RBC) 4.95 4.70-6.10 [facility] CenterZuicaonHVFEALIOMJ4162-99-78 19:07:00 Test Item Value Reference Range Interpretation Comments Hgb (test code = Hgb) 14.1 14.0-18.0 [facility] CenterPgfjuwpYBGVDUJPWE3265-21-67 19:07:00 Test Item Value Reference Range Interpretation Comments Hct (test code = Hct) 42.2 42.0-54.0 [facility]EvprrhqJTQBGHUMAQ5901-95-26 19:07:00 Test Item Value Reference Range Interpretation Comments MCV (test code = MCV) 85.3 80.0-94.0 [facility] CenterPrfceheHDXVHTEIMF7864-81-29 19:07:00 Test Item Value Reference Range Interpretation Comments MCH (test code = MCH) 28.6 pg 27.0-31.0 [facility] CenterLdiwmbfAVZWHWUNEF4922-93-28 19:07:00 Test Item Value Reference Range Interpretation Comments MCHC (test code = MCHC) 33.5 32.0-36.0 [facility]borDuuopawUNLDIMCILW4911-98-68 19:07:00 Test Item Value Reference Range Interpretation Comments RDW (test code = RDW) 14.7 11.5-14.5 [facility] CenterPxkvleaWCHHAEFLRS5217-75-34 19:07:00 Test Item Value Reference Range Interpretation Comments Platelet (test code = Platelet) 219 133-450 [facility]borRalktjpRAWGBZFDIQ2417-63-94 19:07:00 Test Item Value Reference Range Interpretation Comments MPV (test code = MPV) 8.2 7.4-10.4 [facility] UTSGAAAKU1939-00-97 19:07:00 Test Item Value Reference Range Interpretation Comments Hgb A1C (test code = Hgb A1C) 6.4 [facility] VMQNJ5236-03-09 19:07:00 Test Item Value Reference Range Interpretation Comments Glucose Lvl (test code = Glucose Lvl) 153 70-99 [facility] DBTTB0273-13-70 19:07:00 Test Item Value Reference Range Interpretation Comments BUN (test code = BUN) 18 7-22 [facility] YIGBX3295-18-59 19:07:00 Test Item Value Reference Range Interpretation Comments Creatinine Lvl (test code = Creatinine 1.44 0.50-1.40 Lvl) [facility] ATZVG3667-62-17 19:07:00 Test Item Value Reference Range Interpretation Comments Sodium Lvl (test code = Sodium Lvl) 132 135-145 [facility]2021-12-29 19:07:00 Test Item Value Reference Range Interpretation Comments Potassium Lvl (test code = Potassium 4.8 3.5-5.1 Lvl) [place] 544361-12-29 19:07:00 Test Item Value Reference Range Interpretation Comments Chloride Lvl (test code = Chloride Lvl) 99 95-109 [place] 544361-12-29 19:07:00 Test Item Value Reference Range Interpretation Comments CO2 (test code = CO2) 27 24-32 [place] 544361-12-29 19:07:00 Test Item Value Reference Range Interpretation Comments Calcium Lvl (test code = Calcium Lvl) 9.7 8.5-10.5 [place] 544361-12-29 19:07:00 Test Item Value Reference Range Interpretation Comments AGAP (test code = AGAP) 10.8 10.0-20.0 [place] 544361-12-29 19:07:00 Test Item Value Reference Range Interpretation Comments eGFR (test code = eGFR) 52 [facility] CenterSppwydmEQFLEGNKEC9132-29-21 19:07:00 Test Item Value Reference Range Interpretation Comments Segs (test code = Segs) 57.5 45.0-75.0 [facility] CenterNsdydolFVCPYABFFS0391-51-29 19:07:00 Test Item Value Reference Range Interpretation Comments Lymphocytes (test code = Lymphocytes) 28.0 20.0-40.0 [facility]2021-12-29 19:07:00 Test Item Value Reference Range Interpretation Comments Glucose Lvl (test code = Glucose Lvl) 153 70-99 [facility]2021-12-29 19:07:00 Test Item Value Reference Range Interpretation Comments BUN (test code = BUN) 18 7-22 [facility] CenterFucnpvvTPOHMFMTIT8230-75-89 19:07:00 Test Item Value Reference Range Interpretation Comments Monocytes (test code = Monocytes) 9.6 2.0-12.0 [facility]2021-12-29 19:07:00 Test Item Value Reference Range Interpretation Comments Creatinine Lvl (test code = Creatinine 1.44 0.50-1.40 Lvl) [place] 544361-12-29 19:07:00 Test Item Value Reference Range Interpretation Comments Sodium Lvl (test code = Sodium Lvl) 132 135-145 [place] 544361-12-29 19:07:00 Test Item Value Reference Range Interpretation Comments Potassium Lvl (test code = Potassium 4.8 3.5-5.1 Lvl) [place] 544361-12-29 19:07:00 Test Item Value Reference Range Interpretation Comments Chloride Lvl (test code = Chloride Lvl) 99 95-109 [place] 544361-12-29 19:07:00 Test Item Value Reference Range Interpretation Comments CO2 (test code = CO2) 27 24-32 [place] 544361-12-29 19:07:00 Test Item Value Reference Range Interpretation Comments Calcium Lvl (test code = Calcium Lvl) 9.7 8.5-10.5 [place] 544361-12-29 19:07:00 Test Item Value Reference Range Interpretation Comments AGAP (test code = AGAP) 10.8 10.0-20.0 [place] 544361-12-29 19:07:00 Test Item Value Reference Range Interpretation Comments eGFR (test code = eGFR) 52 [place] 593981-12-29 19:07:00 Test Item Value Reference Range Interpretation Comments Segs (test code = Segs) 57.5 45.0-75.0 [place] 593981-12-29 19:07:00 Test Item Value Reference Range Interpretation Comments Lymphocytes (test code = Lymphocytes) 28.0 20.0-40.0 [place] 593981-12-29 19:07:00 Test Item Value Reference Range Interpretation Comments Eosinophils (test code = 4.4 See_Comment [A utomated message] The Eosinophils) system which ge nerated this result tra nsmitted reference range : <=4.0. The reference r glenn was not used to int erpret this result as normal/abnormal . [place] 593981-12-29 19:07:00 Test Item Value Reference Range Interpretation Comments Monocytes (test code = Monocytes) 9.6 2.0-12.0 [place] 593981-12-29 19:07:00 Test Item Value Reference Range Interpretation Comments Eosinophils (test code = 4.4 See_Comment [A utomated message] The Eosinophils) system which ge nerated this result tra nsmitted reference range : <=4.0. The reference r glenn was not used to int erpret this result as normal/abnormal . [facility] CenterGghvmcdULWMAGZFYO4096-82-76 19:07:00 Test Item Value Reference Range Interpretation Comments Basophils (test code = 0.5 See_Comment [Aut omated message] The Basophils) system which ge nerated this result tra nsmitted reference range : <=1.0. The reference r glenn was not used to int erpret this result as normal/abnormal . [facility] CenterUhoojfyWQHMXDPFAI1228-93-34 19:07:00 Test Item Value Reference Range Interpretation Comments Neutrophils # (test code = Neutrophils 3.3 1.5-8.1 #) [facility] CenterQqqhiuvNHFVVGZZDI5200-82-54 19:07:00 Test Item Value Reference Range Interpretation Comments Lymphocytes # (test code = Lymphocytes 1.6 1.0-5.5 #) [facility] CenterBdauzvqONXHNHJHVG3043-05-44 19:07:00 Test Item Value Reference Range Interpretation Comments Monocytes # (test code 0.5 See_Comment [Aut omated message] The = Monocytes #) system which generated this result tra nsmitted reference range : <=0.8. The reference r glenn was not used to int erpret this result as normal/abnormal . [facility] CenterPmxmanrCTZGPJUCBV8817-70-61 19:07:00 Test Item Value Reference Range Interpretation Comments Eosinophils # (test code 0.2 See_Comment [A utomated message] The = Eosinophils #) system [facility] h generated this result tra nsmitted reference range : <=0.5. The reference r glenn was not used to int erpret this result as normal/abnormal . [facility] CenterXwmfsnyKJAHXAABTR0758-15-00 19:07:00 Test Item Value Reference Range Interpretation Comments WBC (test code = WBC) 5.7 3.7-10.4 [facility] CenterCeonodvJFESQTUDPY5222-32-83 19:07:00 Test Item Value Reference Range Interpretation Comments RBC (test code = RBC) 4.95 4.70-6.10 [facility] CenterOndnoncZEYWATECLO7257-53-13 19:07:00 Test Item Value Reference Range Interpretation Comments Hgb (test code = Hgb) 14.1 14.0-18.0 [facility]borBpunfsaPGVUKSVUKL2930-99-79 19:07:00 Test Item Value Reference Range Interpretation Comments Basophils (test code = 0.5 See_Comment [Aut omated message] The Basophils) system which ge nerated this result tra nsmitted reference range : <=1.0. The reference r glenn was not used to int erpret this result as normal/abnormal . [facility]borDifuewcWKUYWLQVIT9304-68-98 19:07:00 Test Item Value Reference Range Interpretation Comments Hct (test code = Hct) 42.2 42.0-54.0 [facility]borXojmfqfVTBEJKQIYQ5628-59-77 19:07:00 Test Item Value Reference Range Interpretation Comments MCV (test code = MCV) 85.3 80.0-94.0 [facility]borMhnubnlIUDGWTZXHX3033-79-98 19:07:00 Test Item Value Reference Range Interpretation Comments MCH (test code = MCH) 28.6 pg 27.0-31.0 [facility]borUjibqulMQJVILGOLG9097-85-91 19:07:00 Test Item Value Reference Range Interpretation Comments MCHC (test code = MCHC) 33.5 32.0-36.0 [facility]borSxyjcxxBYDEVXAHEH1105-90-14 19:07:00 Test Item Value Reference Range Interpretation Comments RDW (test code = RDW) 14.7 11.5-14.5 [facility]borYuroxjhPAAPHLZBCX8759-46-11 19:07:00 Test Item Value Reference Range Interpretation Comments Platelet (test code = Platelet) 219 133-450 [facility]borRgpgzwaGKDBYPFBCI0817-99-44 19:07:00 Test Item Value Reference Range Interpretation Comments MPV (test code = MPV) 8.2 7.4-10.4 [facility] YWBLBSZWF8774-22-90 19:07:00 Test Item Value Reference Range Interpretation Comments Hgb A1C (test code = Hgb A1C) 6.4 [facility] CenterLgxqjbtCMGNHMACPD6491-52-97 19:07:00 Test Item Value Reference Range Interpretation Comments Neutrophils # (test code = Neutrophils 3.3 1.5-8.1 #) [facility]borVyrgsrfZOFYDOSCFG0721-47-06 19:07:00 Test Item Value Reference Range Interpretation Comments Lymphocytes # (test code = Lymphocytes 1.6 1.0-5.5 #) [facility]borQeakzfnUCMEHIPAEO0450-70-38 19:07:00 Test Item Value Reference Range Interpretation Comments Monocytes # (test code 0.5 See_Comment [Aut omated message] The = Monocytes #) system which generated this result tra nsmitted reference range : <=0.8. The reference r glenn was not used to int erpret this result as normal/abnormal . [facility] CenterSxecosuRJUGCWAFVF4450-95-99 19:07:00 Test Item Value Reference Range Interpretation Comments Eosinophils # (test code 0.2 See_Comment [A utomated message] The = Eosinophils #) system whic h generated this result tra nsmitted reference range : <=0.5. The reference r glenn was not used to int erpret this result as normal/abnormal . [facility]2021-12-29 19:07:00 Test Item Value Reference Range Interpretation Comments Glucose Lvl (test code = Glucose Lvl) 153 70-99 [facility] CenterHodjwocAGSMSPYKKW9837-84-10 19:07:00 Test Item Value Reference Range Interpretation Comments WBC (test code = WBC) 5.7 3.7-10.4 [facility] CenterDxvqaaoLRHAOVXNGZ3415-31-61 19:07:00 Test Item Value Reference Range Interpretation Comments RBC (test code = RBC) 4.95 4.70-6.10 [facility] CenterNsqdpvxQFYLGLQRHO0685-87-70 19:07:00 Test Item Value Reference Range Interpretation Comments Hgb (test code = Hgb) 14.1 14.0-18.0 [facility] CenterGbxgajxMVRRTSPTKU5205-01-88 19:07:00 Test Item Value Reference Range Interpretation Comments Hct (test code = Hct) 42.2 42.0-54.0 [facility] CenterKbgmjevOXUGCZCBVM3646-81-99 19:07:00 Test Item Value Reference Range Interpretation Comments MCV (test code = MCV) 85.3 80.0-94.0 [place] 593981-12-29 19:07:00 Test Item Value Reference Range Interpretation Comments MCH (test code = MCH) 28.6 pg 27.0-31.0 [place] 593981-12-29 19:07:00 Test Item Value Reference Range Interpretation Comments MCHC (test code = MCHC) 33.5 32.0-36.0 [facility] CenterVioreqdJUCRCHNJUK5970-33-50 19:07:00 Test Item Value Reference Range Interpretation Comments RDW (test code = RDW) 14.7 11.5-14.5 [facility]borTfckonxFLZNJGGUQQ6505-23-94 19:07:00 Test Item Value Reference Range Interpretation Comments Platelet (test code = Platelet) 219 133-450 [facility]borYrrcjhzCUCTRFJGJZ8939-60-85 19:07:00 Test Item Value Reference Range Interpretation Comments MPV (test code = MPV) 8.2 7.4-10.4 [facility] YYOGI2781-47-08 19:07:00 Test Item Value Reference Range Interpretation Comments BUN (test code = BUN) 18 7-22 [facility] MQUFGLERZ1729-93-03 19:07:00 Test Item Value Reference Range Interpretation Comments Hgb A1C (test code = Hgb A1C) 6.4 [facility]2021-12-29 19:07:00 Test Item Value Reference Range Interpretation Comments Creatinine Lvl (test code = Creatinine 1.44 0.50-1.40 Lvl) [facility]2021-12-29 19:07:00 Test Item Value Reference Range Interpretation Comments Sodium Lvl (test code = Sodium Lvl) 132 135-145 [facility]2021-12-29 19:07:00 Test Item Value Reference Range Interpretation Comments Potassium Lvl (test code = Potassium 4.8 3.5-5.1 Lvl) [facility]2021-12-29 19:07:00 Test Item Value Reference Range Interpretation Comments Chloride Lvl (test code = Chloride Lvl) 99 95-109 [facility]2021-12-29 19:07:00 Test Item Value Reference Range Interpretation Comments CO2 (test code = CO2) 27 24-32 [facility] CMNYI0982-24-51 19:07:00 Test Item Value Reference Range Interpretation Comments Calcium Lvl (test code = Calcium Lvl) 9.7 8.5-10.5 [facility] ANYVU4333-98-71 19:07:00 Test Item Value Reference Range Interpretation Comments AGAP (test code = AGAP) 10.8 10.0-20.0 [facility]2021-12-29 19:07:00 Test Item Value Reference Range Interpretation Comments eGFR (test code = eGFR) 52 [facility]borJshqdxmYHGVXWIRLV2702-59-52 19:07:00 Test Item Value Reference Range Interpretation Comments Segs (test code = Segs) 57.5 45.0-75.0 [facility] CenterFstjgipIBHHDHPCZV6313-70-76 19:07:00 Test Item Value Reference Range Interpretation Comments Lymphocytes (test code = Lymphocytes) 28.0 20.0-40.0 [place] 593981-12-29 19:07:00 Test Item Value Reference Range Interpretation Comments Monocytes (test code = Monocytes) 9.6 2.0-12.0 [place] 593981-12-29 19:07:00 Test Item Value Reference Range Interpretation Comments Eosinophils (test code = 4.4 See_Comment [A utomated message] The Eosinophils) system which ge nerated this result tra nsmitted reference range : <=4.0. The reference r glenn was not used to int erpret this result as normal/abnormal . [place] 593981-12-29 19:07:00 Test Item Value Reference Range Interpretation Comments Basophils (test code = 0.5 See_Comment [Aut omated message] The Basophils) system which ge nerated this result tra nsmitted reference range : <=1.0. The reference r glenn was not used to int erpret this result as normal/abnormal . [facility] CenterNgvjqkaUUBTOPTLPY3705-03-18 19:07:00 Test Item Value Reference Range Interpretation Comments Neutrophils # (test code = Neutrophils 3.3 1.5-8.1 #) [place]3981-12-29 19:07:00 Test Item Value Reference Range Interpretation Comments Lymphocytes # (test code = Lymphocytes 1.6 1.0-5.5 #) [facility] CenterKclghdlEPGSGMNNAS4518-11-57 19:07:00 Test Item Value Reference Range Interpretation Comments Monocytes # (test code 0.5 See_Comment [Aut omated message] The = Monocytes #) system which generated this result tra nsmitted reference range : <=0.8. The reference r glenn was not used to int erpret this result as normal/abnormal . [facility] CenterKehcusiUVIYIIIBNL1850-55-83 19:07:00 Test Item Value Reference Range Interpretation Comments Eosinophils # (test code 0.2 See_Comment [A utomated message] The = Eosinophils #) system wh h generated this result tra nsmitted reference range : <=0.5. The reference r glenn was not used to int erpret this result as normal/abnormal . [facility]borQgtsrwhQOXLTTHGCG0804-99-18 19:07:00 Test Item Value Reference Range Interpretation Comments WBC (test code = WBC) 5.7 3.7-10.4 [facility]borJpvhkqxYDGBLBKTKU5718-04-40 19:07:00 Test Item Value Reference Range Interpretation Comments RBC (test code = RBC) 4.95 4.70-6.10 [facility]borBvtoqarJUTRZKXKYF4721-43-52 19:07:00 Test Item Value Reference Range Interpretation Comments Hgb (test code = Hgb) 14.1 14.0-18.0 [facility]borXtsuxyhURXTGUTPZV9281-60-41 19:07:00 Test Item Value Reference Range Interpretation Comments Hct (test code = Hct) 42.2 42.0-54.0 [facility]borHnhsjrlKLJQAJODBL0788-19-73 19:07:00 Test Item Value Reference Range Interpretation Comments MCV (test code = MCV) 85.3 80.0-94.0 [facility]borPhehkctHQMFLBBGWT6740-31-04 19:07:00 Test Item Value Reference Range Interpretation Comments MCH (test code = MCH) 28.6 pg 27.0-31.0 [facility]borLskschjPSOFIUTNHC2268-00-19 19:07:00 Test Item Value Reference Range Interpretation Comments MCHC (test code = MCHC) 33.5 32.0-36.0 [facility] [id number] 19:07:00 Test Item Value Reference Range Interpretation Comments RDW (test code = RDW) 14.7 11.5-14.5 [id number] 19:07:00 Test Item Value Reference Range Interpretation Comments Platelet (test code = Platelet) 219 133-450 [id number] 19:07:00 Test Item Value Reference Range Interpretation Comments MPV (test code = MPV) 8.2 7.4-10.4 [facility] [id number] 19:07:00 Test Item Value Reference Range Interpretation Comments Hgb A1C (test code = Hgb A1C) 6.4 [facility] [id number] 19:07:00 Test Item Value Reference Range Interpretation Comments Glucose Lvl (test code = Glucose Lvl) 153 70-99 [place] [id number] 19:07:00 Test Item Value Reference Range Interpretation Comments BUN (test code = BUN) 18 7-22 [place] 544361-12-29 19:07:00 Test Item Value Reference Range Interpretation Comments Creatinine Lvl (test code = Creatinine 1.44 0.50-1.40 Lvl) [place] 544361-12-29 19:07:00 Test Item Value Reference Range Interpretation Comments Sodium Lvl (test code = Sodium Lvl) 132 135-145 [place] 544361-12-29 19:07:00 Test Item Value Reference Range Interpretation Comments Potassium Lvl (test code = Potassium 4.8 3.5-5.1 Lvl) [place] 544361-12-29 19:07:00 Test Item Value Reference Range Interpretation Comments Chloride Lvl (test code = Chloride Lvl) 99 95-109 [place] 544361-12-29 19:07:00 Test Item Value Reference Range Interpretation Comments CO2 (test code = CO2) 27 24-32 [place] 544361-12-29 19:07:00 Test Item Value Reference Range Interpretation Comments Calcium Lvl (test code = Calcium Lvl) 9.7 8.5-10.5 [facility]2021-12-29 19:07:00 Test Item Value Reference Range Interpretation Comments AGAP (test code = AGAP) 10.8 10.0-20.0 [place] 544361-12-29 19:07:00 Test Item Value Reference Range Interpretation Comments eGFR (test code = eGFR) 52 [place] [id number] 19:07:00 Test Item Value Reference Range Interpretation Comments Segs (test code = Segs) 57.5 45.0-75.0 [place] [id number] 19:07:00 Test Item Value Reference Range Interpretation Comments Lymphocytes (test code = Lymphocytes) 28.0 20.0-40.0 [place] 593981-12-29 19:07:00 Test Item Value Reference Range Interpretation Comments Monocytes (test code = Monocytes) 9.6 2.0-12.0 [place] 593981-12-29 19:07:00 Test Item Value Reference Range Interpretation Comments Eosinophils (test code = 4.4 See_Comment [A utomated message] The Eosinophils) system which ge nerated this result tra nsmitted reference range : <=4.0. The reference r glenn was not used to int erpret this result as normal/abnormal . [facility] CenterPpglbiyDXSPNKKBBR8930-21-39 19:07:00 Test Item Value Reference Range Interpretation Comments Basophils (test code = 0.5 See_Comment [Aut omated message] The Basophils) system which ge nerated this result tra nsmitted reference range : <=1.0. The reference r glenn was not used to int erpret this result as normal/abnormal . [facility] CenterTxwptluTFTTOHODXQ2594-81-17 19:07:00 Test Item Value Reference Range Interpretation Comments Neutrophils # (test code = Neutrophils 3.3 1.5-8.1 #) [facility] CenterAwamdpaREJXFPXARZ5612-84-88 19:07:00 Test Item Value Reference Range Interpretation Comments Lymphocytes # (test code = Lymphocytes 1.6 1.0-5.5 #) [facility] CenterAvptddhTXKVNGGEHM4033-12-09 19:07:00 Test Item Value Reference Range Interpretation Comments Monocytes # (test code 0.5 See_Comment [Aut omated message] The = Monocytes #) system which generated this result tra nsmitted reference range : <=0.8. The reference r glenn was not used to int erpret this result as normal/abnormal . [facility] CenterOsrdrpnSPOOYUZDWR4972-07-15 19:07:00 Test Item Value Reference Range Interpretation Comments Eosinophils # (test code 0.2 See_Comment [A utomated message] The = Eosinophils #) system whic h generated this result tra nsmitted reference range : <=0.5. The reference r glenn was not used to int erpret this result as normal/abnormal . [facility] CenterJvwgclvGYYCSKTLKY1172-67-04 19:07:00 Test Item Value Reference Range Interpretation Comments WBC (test code = WBC) 5.7 3.7-10.4 [facility] CenterMmyvjhsIBTMHSCDKO0964-12-96 19:07:00 Test Item Value Reference Range Interpretation Comments RBC (test code = RBC) 4.95 4.70-6.10 [facility] CenterOqicpvjUJFXCJCLYZ4289-21-03 19:07:00 Test Item Value Reference Range Interpretation Comments Hgb (test code = Hgb) 14.1 14.0-18.0 [facility] CenterAmtpmokXQQBXENRGF4851-07-99 19:07:00 Test Item Value Reference Range Interpretation Comments Hct (test code = Hct) 42.2 42.0-54.0 [facility]FdzdlckPRYAMCSHNR0898-47-45 19:07:00 Test Item Value Reference Range Interpretation Comments MCV (test code = MCV) 85.3 80.0-94.0 [facility]borRmstpgbMHKTLFKKNN4227-21-66 19:07:00 Test Item Value Reference Range Interpretation Comments MCH (test code = MCH) 28.6 pg 27.0-31.0 [facility] CenterHbacaimLRRZMKPFLJ5252-12-61 19:07:00 Test Item Value Reference Range Interpretation Comments MCHC (test code = MCHC) 33.5 32.0-36.0 [facility]borTtixkygTLBGQNMJCH0528-49-78 19:07:00 Test Item Value Reference Range Interpretation Comments RDW (test code = RDW) 14.7 11.5-14.5 [facility]HjjcwqmLLOUQDMRGO9836-17-11 19:07:00 Test Item Value Reference Range Interpretation Comments Platelet (test code = Platelet) 219 133-450 [facility]borSuamlymCEMRUKLXCE8003-66-50 19:07:00 Test Item Value Reference Range Interpretation Comments MPV (test code = MPV) 8.2 7.4-10.4 [facility] [id number] 19:07:00 Test Item Value Reference Range Interpretation Comments Hgb A1C (test code = Hgb A1C) 6.4 [facility] [id number] 19:07:00 Test Item Value Reference Range Interpretation Comments Glucose Lvl (test code = Glucose Lvl) 153 70-99 [facility] [id number] 19:07:00 Test Item Value Reference Range Interpretation Comments BUN (test code = BUN) 18 7-22 [facility] [id number] 19:07:00 Test Item Value Reference Range Interpretation Comments Creatinine Lvl (test code = Creatinine 1.44 0.50-1.40 Lvl) [facility] [id number] 19:07:00 Test Item Value Reference Range Interpretation Comments Sodium Lvl (test code = Sodium Lvl) 132 135-145 [facility] [id number] 19:07:00 Test Item Value Reference Range Interpretation Comments Potassium Lvl (test code = Potassium 4.8 3.5-5.1 Lvl) [place] 544361-12-29 19:07:00 Test Item Value Reference Range Interpretation Comments Chloride Lvl (test code = Chloride Lvl) 99 95-109 [place] 544361-12-29 19:07:00 Test Item Value Reference Range Interpretation Comments CO2 (test code = CO2) 27 24-32 [place] 544361-12-29 19:07:00 Test Item Value Reference Range Interpretation Comments Calcium Lvl (test code = Calcium Lvl) 9.7 8.5-10.5 [place] 544361-12-29 19:07:00 Test Item Value Reference Range Interpretation Comments AGAP (test code = AGAP) 10.8 10.0-20.0 [place] 544361-12-29 19:07:00 Test Item Value Reference Range Interpretation Comments eGFR (test code = eGFR) 52 [place] 593981-12-29 19:07:00 Test Item Value Reference Range Interpretation Comments Segs (test code = Segs) 57.5 45.0-75.0 [place] 593981-12-29 19:07:00 Test Item Value Reference Range Interpretation Comments Lymphocytes (test code = Lymphocytes) 28.0 20.0-40.0 [place] 593981-12-29 19:07:00 Test Item Value Reference Range Interpretation Comments Monocytes (test code = Monocytes) 9.6 2.0-12.0 [place] 593981-12-29 19:07:00 Test Item Value Reference Range Interpretation Comments Eosinophils (test code = 4.4 See_Comment [A utomated message] The Eosinophils) system which nerated this result tra nsmitted reference range : <=4.0. The reference r glenn was not used to int erpret this result as normal/abnormal . [place] 593981-12-29 19:07:00 Test Item Value Reference Range Interpretation Comments Basophils (test code = 0.5 See_Comment [Aut omated message] The Basophils) system which ge nerated this result tra nsmitted reference range : <=1.0. The reference r glenn was not used to int erpret this result as normal/abnormal . [place] 593981-12-29 19:07:00 Test Item Value Reference Range Interpretation Comments Neutrophils # (test code = Neutrophils 3.3 1.5-8.1 #) [facility] CenterBrweqfjUWGWLDGGXR8824-80-43 19:07:00 Test Item Value Reference Range Interpretation Comments Lymphocytes # (test code = Lymphocytes 1.6 1.0-5.5 #) [facility] CenterXtwyrqhVZSMEMQVCK9878-71-93 19:07:00 Test Item Value Reference Range Interpretation Comments Monocytes # (test code 0.5 See_Comment [Aut omated message] The = Monocytes #) system which generated this result tra nsmitted reference range : <=0.8. The reference r glenn was not used to int erpret this result as normal/abnormal . [facility] CenterTilvpuoJYCBYJTROX0541-47-53 19:07:00 Test Item Value Reference Range Interpretation Comments Eosinophils # (test code 0.2 See_Comment [A utomated message] The = Eosinophils #) system whic h generated this result tra nsmitted reference range : <=0.5. The reference r glenn was not used to int erpret this result as normal/abnormal . [facility] CenterWnbnaasAMDKHTGUUI8911-84-14 19:07:00 Test Item Value Reference Range Interpretation Comments WBC (test code = WBC) 5.7 3.7-10.4 [place] 593981-12-29 19:07:00 Test Item Value Reference Range Interpretation Comments RBC (test code = RBC) 4.95 4.70-6.10 [place] 593981-12-29 19:07:00 Test Item Value Reference Range Interpretation Comments Hgb (test code = Hgb) 14.1 14.0-18.0 [place] 593981-12-29 19:07:00 Test Item Value Reference Range Interpretation Comments Hct (test code = Hct) 42.2 42.0-54.0 [place] 593981-12-29 19:07:00 Test Item Value Reference Range Interpretation Comments MCV (test code = MCV) 85.3 80.0-94.0 [place] 593981-12-29 19:07:00 Test Item Value Reference Range Interpretation Comments MCH (test code = MCH) 28.6 pg 27.0-31.0 [place] 593981-12-29 19:07:00 Test Item Value Reference Range Interpretation Comments MCHC (test code = MCHC) 33.5 32.0-36.0 [facility] CenterSxmboweUYTBDTAGEQ7565-33-98 19:07:00 Test Item Value Reference Range Interpretation Comments RDW (test code = RDW) 14.7 11.5-14.5 [facility] CenterGyfhvdzSPLEGTQWVM3096-78-95 19:07:00 Test Item Value Reference Range Interpretation Comments Platelet (test code = Platelet) 219 133-450 [facility] CenterKbrljwzDMKKUXVNVA6034-36-43 19:07:00 Test Item Value Reference Range Interpretation Comments MPV (test code = MPV) 8.2 7.4-10.4 [facility] [id number] 19:07:00 Test Item Value Reference Range Interpretation Comments Hgb A1C (test code = Hgb A1C) 6.4 [facility] CenterSARS-COV 2 AntigenSARS-COV 2 Antigen
[2023-02-18] MEDS ORDERED: DIAZEPAM 10 MG/2 ML INJ SYRINGE ONE (08:29)
--- NOTE | 2023-02-18 08:37 | ER ---
Nurse's Notes [facility] Name: Moshe Ewing Age: 62 yrs Sex: Male : 1960 Arrival Date: 02/18/2023 Time: 08:09 Bed 8 Private MD: Diagnosis: Cervicalgia;Anxiety disorder, unspecified Presentation: 02/18 08:18 Chief complaint: EMS states: patient started having severe, sudden onset neck pain when ap3 watching TV this morning. patient has a chronic history of this happening. Coronavirus screen: At this time, the client does not indicate any symptoms associated with coronavirus-19. Ebola Screen: No symptoms or risks identified at this time. Initial Sepsis Screen: Does the patient meet any 2 criteria? RR > 20 per min. No. Patient's initial sepsis screen is negative. Does the patient have a suspected source of infection? No. Patient's initial sepsis screen is negative. Risk Assessment: Do you want to hurt yourself or someone else? Patient reports no desire to harm self or others. Onset of symptoms was February 18, 2023. Care prior to arrival: IV initiated. 20 GA, in the left antecubital area. 08:18 Method Of Arrival: EMS: [facility] ap3 08:18 Acuity: MYRIAM 3 ap3 08:20 Care prior to arrival: Medication(s) given: Normal saline infusion, zofran 4 mg, 1gram ap3 ofirmev IV. Triage Assessment: 08:21 General: Appears uncomfortable, Behavior is tense . Pain: Complains of pain in neck ap3 Pain does not radiate. Pain currently is 10 out of 10 on a pain scale. Pain began suddenly, this morning, but is also chronic. Neuro: Level of Consciousness is awake, alert, obeys commands, Oriented to person, place, time, situation, Speech is normal. Cardiovascular: Patient's skin is warm and dry. Respiratory: Airway is patent Respiratory effort is even, unlabored. Historical: - Allergies: 08:21 amlodipine; ap3 08:21 lidocaine patch; ap3 - PMHx: 08:21 Diabetes - NIDDM; DVT; Hypercholesterolemia; Hypertension; Hypothyroidism; ap3 - PSHx: 08:21 back sx; cadriac stent; Cholecystectomy; foot/shoulder SX; L hand SX with plates ap3 placed; R BKA; stimulator R back for legs; - Immunization history:: Adult Immunizations up to date. - Social history:: Smoking status: Patient denies any tobacco usage or history of. Patient/guardian denies using alcohol. Screenin:23 Abuse screen: Denies threats or abuse. Nutritional screening: No deficits noted. ap3 Tuberculosis screening: No symptoms or risk factors identified. 08:23 [facility] ED Fall Risk Assessment (Adult) History of falling in the last 3 months, ap3 including since admission Yes- physiologic fall (2 pts) Confusion or Disorientation No (0 pts) Intoxicated or Sedated No (0 pts) Impaired Gait Yes (1 pt) Mobility Assist Device Used Yes (1 pt) Altered Elimination No (0 pt) Score/Fall Risk Level 3 or more points = High Risk. Assessment: 08:30 Reassessment: See triage assessment. ld1 08:30 Reassessment: Patient appears in no apparent distress at this time. No changes from ld1 previously documented assessment. Vital Signs: 08:18 BP 181 / 98; Pulse 85; Resp 26; Pulse Ox 100% ; Pain 10/10; ap3 08:31 BP 159 / 92; Pulse 66; Pulse Ox 94% on R/A; ap3 08:32 Temp 97.9(TE); ap3 09:18 BP 163 / 89; Pulse 72; Resp 18; Pulse Ox 100% ; ld1 08:18 Pain Scale: Adult ap3 ED Course: 08:14 Patient arrived in ED. ld1 08:16 Jonh Liang DO is Attending Physician. ms3 08:17 Yadira Viveros FNP-C is [facility]. snw 08:17 Yolanda Victoria, FANNY is Primary Nurse. ap3 08:20 Triage completed. ap3 08:23 Arm band placed on right wrist. ap3 08:23 Patient has correct armband on for positive identification. Bed in low position. Call ap3 light in reach. Side rails up X2. Pulse ox on. NIBP on. Door closed. Noise minimized. 09:18 No provider procedures requiring assistance completed. IV discontinued, intact, ld1 bleeding controlled, No redness/swelling at site. Administered Medications: 08:23 Drug: Diazepam IVP 5 mg Route: IVP; Site: left antecubital; ld1 Medication: 09:18 VIS not applicable for this client. ld1 Outcome: 08:36 Discharge ordered by . snw 09:18 Discharged to home via wheelchair. ld1 09:18 Condition: stable 09:18 Discharge instructions given to patient, Instructed on discharge instructions, follow up and referral plans. medication usage, Demonstrated understanding of instructions, follow-up care, medications, Prescriptions given X 1. 09:24 Patient left the ED. ld1 Signatures: Yadira Viveros, CAFETERIA CASHIER-C CAFETERIA CASHIER-Csnw Yolanda Victoria, RN RN ap3 Jonh Liang DO DO ms3 Cece Liang RN RN ld1
--- NOTE | 2023-02-18 08:37 | EDPHYS ---
Physician Documentation [facility] Name: Moshe Ewing Age: 62 yrs Sex: Male : 1960 Arrival Date: 02/18/2023 Time: 08:09 Bed 8 Private MD: ED Physician Jonh Liang HPI: 02/18 08:32 This 62 yrs old Male presents to ER via EMS with complaints of Neck Pain, <24hrs Old. snw 08:32 The patient or guardian complains of pain, that is acute. The symptoms are located on snw the base of the skull. Onset: The symptoms/episode began/occurred acutely. Context: The problem was sustained at home, The neck injury/problem resulted from from an old injury. The pain does not radiate. Severity of symptoms: At their worst the symptoms were moderate, severe, in the emergency department the symptoms are unchanged. The patient has experienced similar episodes in the past, multiple times. It is unknown whether or not the patient has recently seen a physician. Historical: - Allergies: 08:21 amlodipine; ap3 08:21 lidocaine patch; ap3 - PMHx: 08:21 Diabetes - NIDDM; DVT; Hypercholesterolemia; Hypertension; Hypothyroidism; ap3 - PSHx: 08:21 back sx; cadriac stent; Cholecystectomy; foot/shoulder SX; L hand SX with plates ap3 placed; R BKA; stimulator R back for legs; - Immunization history:: Adult Immunizations up to date. - Social history:: Smoking status: Patient denies any tobacco usage or history of. Patient/guardian denies using alcohol. ROS: 08:32 Constitutional: Negative for fever, chills, and weight loss, Eyes: Negative for injury, snw pain, redness, and discharge, ENT: Negative for injury, pain, and discharge, Cardiovascular: Negative for chest pain, palpitations, and edema, Respiratory: Negative for shortness of breath, cough, wheezing, and pleuritic chest pain, Abdomen/GI: Negative for abdominal pain, nausea, vomiting, diarrhea, and constipation, Back: Negative for injury and pain, : Negative for injury, bleeding, discharge, and swelling, MS/Extremity: Negative for injury and deformity, Skin: Negative for injury, rash, and discoloration, Neuro: Negative for headache, weakness, numbness, tingling, and seizure, Psych: Negative for depression, anxiety, suicide ideation, homicidal ideation, and hallucinations. 08:32 Neck: Positive for pain with movement, pain at rest, of the base of the skull. 08:34 Constitutional: Negative for fever, chills, and weight loss. snw Exam: 08:32 Constitutional: This is a well developed, well nourished patient who is awake, snw anxious, uncooperative, diaphoretic, hyperventilating Head/Face: Normocephalic, atraumatic. Eyes: Pupils equal round and reactive to light, extra-ocular motions intact. Lids and lashes normal. Conjunctiva and sclera are non-icteric and not injected. Cornea within normal limits. Periorbital areas with no swelling, redness, or edema. ENT: Nares patent. No nasal discharge, no septal abnormalities noted. Tympanic membranes are normal and external auditory canals are clear. Oropharynx with no redness, swelling, or masses, exudates, or evidence of obstruction, uvula midline. Mucous membranes moist. Chest/axilla: Normal chest wall appearance and motion. Nontender with no deformity. No lesions are appreciated. Cardiovascular: Regular rate and rhythm with a normal S1 and S2. No gallops, murmurs, or rubs. Normal PMI, no JVD. No pulse deficits. Respiratory: Lungs have equal breath sounds bilaterally, clear to auscultation and percussion. No rales, rhonchi or wheezes noted. No increased work of breathing, no retractions or nasal flaring. Abdomen/GI: Soft, non-tender, with normal bowel sounds. No distension or tympany. No guarding or rebound. No evidence of tenderness throughout. Back: No spinal tenderness. No costovertebral tenderness. Full range of motion. Skin: Warm, dry with normal turgor. Normal color with no rashes, no lesions, and no evidence of cellulitis. MS/ Extremity: Pulses equal, no cyanosis. Neurovascular intact. Full, normal range of motion. Neuro: Awake and alert, GCS 15, oriented to person, place, time, and situation. Cranial nerves II-XII grossly intact. Motor strength 5/5 in all extremities. Sensory grossly intact. Cerebellar exam normal. Normal gait. Psych: Awake, alert, with orientation to person, place and time. Behavior, mood, and affect are within normal limits. 08:32 Neck: C-spine: no acute changes, ROM/movement: pain, that is moderate. Vital Signs: 08:18 BP 181 / 98; Pulse 85; Resp 26; Pulse Ox 100% ; Pain 10/10; ap3 08:31 BP 159 / 92; Pulse 66; Pulse Ox 94% on R/A; ap3 08:32 Temp 97.9(TE); ap3 09:18 BP 163 / 89; Pulse 72; Resp 18; Pulse Ox 100% ; ld1 08:18 Pain Scale: Adult ap3 MDM: 08:17 Patient medically screened. snw 08:37 Differential diagnosis: arthritis, Neck Contusion spastic torticollis. Data reviewed: snw vital signs, nurses notes. Historians other than the Patient: EMS: [facility]. Counseling: I had a detailed discussion with the patient and/or guardian regarding: the historical points, exam findings, and any diagnostic results supporting the discharge/admit diagnosis, the presence of at least one elevated blood pressure reading (>120/80) during this emergency department visit, the need for outpatient follow up, for definitive care, to return to the emergency department if symptoms worsen or persist or if there are any questions or concerns that arise at home. Response to treatment: the patient's symptoms have markedly improved after treatment. Special discussion: Based on the history and exam findings, there is no indication for further emergent testing or inpatient evaluation. I discussed with the patient/guardian the need to see the primary care provider for further evaluation of the symptoms. 09:09 ED course: pt sleeping in no acute distress post Valium. Upon d/c pt c/o severe pain. snw Motrin ordered.. Administered Medications: 08:23 Drug: Diazepam IVP 5 mg Route: IVP; Site: left antecubital; ld1 Disposition: 08:37 Co-signature as Attending Physician, Jonh BUTCHER/LABOR CONCILIATOR's history reviewed, patient ms3 interviewed, and examined. HPI: 62-year-old male with past medical history of diabetes, DVT, hypercholesterolemia, hypertension, chronic neck pain presents for neck pain. My personal exam of patient reveals: On exam patient appears in pain, nontoxic-appearing. Heart rate and rhythm regular without murmurs rubs gallops. Lungs clear to auscultation bilaterally. Skin dry and without rashes. Neck exam significant for para muscle cervical spasm. I agree with assessment and care plan and confirm the diagnosis (es) above. Disposition Summary: 02/18/23 08:36 Discharge Ordered Location: Home snw Condition: Stable snw Diagnosis - Cervicalgia snw - Anxiety disorder, unspecified snw Followup: snw - With: Emergency Department - When: As needed - Reason: Worsening of condition Followup: snw - With: Private Physician - When: Tomorrow - Reason: Recheck today's complaints, Continuance of care, Re-evaluation by your physician Discharge Instructions: - Discharge Summary Sheet snw - Panic Attack snw - Musculoskeletal Pain snw - Neck Exercises snw Forms: - Medication Reconciliation Form snw - Thank You Letter snw - Antibiotic Education snw - Prescription Opioid Use snw Prescriptions: - orphenadrine citrate 100 mg Oral Tablet Sustained Release - take 1 tablet by ORAL route 2 times per day As needed; 20 tablet; Refills: 0, snw Product Selection Permitted Signatures: Yadira Viveros FNP-C PIPE MANU[employer]URE SUPERVISOR-Csnw Yolanda Victoria RN RN ap3 Jonh Liang DO DO ms3 Cece Liang RN RN ld1 Corrections: (The following items were deleted from the chart) 08:35 08:32 Constitutional: This is a well developed, well nourished patient who is awake, snw alert, and in no acute distress. Head/Face: Normocephalic, atraumatic. Eyes: Pupils equal round and reactive to light, extra-ocular motions intact. Lids and lashes normal. Conjunctiva and sclera are non-icteric and not injected. Cornea within normal limits. Periorbital areas with no swelling, redness, or edema. ENT: Nares patent. No nasal discharge, no septal abnormalities noted. Tympanic membranes are normal and external auditory canals are clear. Oropharynx with no redness, swelling, or masses, exudates, or evidence of obstruction, uvula midline. Mucous membranes moist. Chest/axilla: Normal chest wall appearance and motion. Nontender with no deformity. No lesions are appreciated. Cardiovascular: Regular rate and rhythm with a normal S1 and S2. No gallops, murmurs, or rubs. Normal PMI, no JVD. No pulse deficits. Respiratory: Lungs have equal breath sounds bilaterally, clear to auscultation and percussion. No rales, rhonchi or wheezes noted. No increased work of breathing, no retractions or nasal flaring. Abdomen/GI: Soft, non-tender, with normal bowel sounds. No distension or tympany. No guarding or rebound. No evidence of tenderness throughout. Back: No spinal tenderness. No costovertebral tenderness. Full range of motion. Skin: Warm, dry with normal turgor. Normal color with no rashes, no lesions, and no evidence of cellulitis. MS/ Extremity: Pulses equal, no cyanosis. Neurovascular intact. Full, normal range of motion. Neuro: Awake and alert, GCS 15, oriented to person, place, time, and situation. Cranial nerves II-XII grossly intact. Motor strength 5/5 in all extremities. Sensory grossly intact. Cerebellar exam normal. Normal gait. Psych: Awake, alert, with orientation to person, place and time. Behavior, mood, and affect are within normal limits. snw
[2023-02-18 09:32] VITALS: TEMP 97.9
[2023-02-18 09:34] VITALS: BP 163/89; O2SAT 100
== END 2023-02-18 09:24 | disposition home or self-care (01) ==
LOC: ER 08:09
DX: M54.2 Cervicalgia (principal); F41.9 Anxiety disorder, unspecified; I10 Essential (primary) hypertension; E11.9 Type 2 diabetes mellitus without complications; Z88.6 Allergy status to analgesic agent; Z88.8 Allergy status to other drugs, medicaments and biological substances; Z95.818 Presence of other cardiac implants and grafts
CPT/HCPCS: 96374; 99284; J3360

== ENCOUNTER 2023-03-05 11:02 | Emergency (ER) | payer OTHER ==
--- OUTSIDE RECORDS SUMMARY | 2023-03-05 11:12 | XMS REPORT | Continuity of Care Document ---
:1960 Author Organization [facility] t Address [address] [facility] [address] [place] [address] Care Team Providers Name Role Phone Carroll Regina Quiroga Primary Care Physician Maira Oliveira Attending Clinician Unavailable Regina Hodges Attending Clinician Unavailable Jeison Hays Attending Clinician Radiology Attending Clinician Unavailable RADIOLOGY Attending Clinician Unavailable Carolina Rice RN Attending Clinician Unavailable EARL GODDARD Attending Clinician Unavailable Leonora Guzman Attending Clinician Alexandre Montemayor MD Attending Clinician Earl Goddard MD Attending Clinician Doctor Unassigned, [place] Attending Clinician Unavailable Wallace Dotson MD Attending [...] Number Effective Date Expiration Date Janell freitas [facility] DUAL [id number] 2020 COMP HMO D SNP 00:00:00 MEDICAID [place] [id number] 2020 [place] 00:00:00 [facility] 53 [id number] 2020 Common ADVANTAGE 00:00:00 Spirit - [facility] [id number] [facility] MEDICARE [id number] 2020 COMPLETE CHOICE 00:00:00 HUMANCarmen GOLD PLS [id number] 2019 HMO 00:00:00 MEDICARE PART A [id number] 2004 2019 \T\ B 00:00:00 00:00:00 Problems Condition Condition Condition Status Onset Resolution Last Treating Co mments Source Name Details Category Date Date Treatment Clinician Date Coronary Coronary Disease Active 2021-09 Unive rs artery artery 1-17 ity of disease disease 00:00: [place] involving involving 00 [place]i [place] coronary coronary artery of artery of [place] heart heart without without angina angina pectoris pectoris Generalize Generalize Disease Active 2021-09 U nivers d d 1-17 [place] of abdominal abdominal [place] pain pain 00 [place] Coronary Coronary Disease Active 2021-09 Unive rs artery artery 1-17 ity of disease disease 00:00: [place] involving involving 00 Medi [place] coronary coronary artery of artery of [place] heart heart without without angina angina pectoris pectoris Chest pain Chest pain Disease Active 2021-09 U nivers 1-16 ity of 00:00: [place] 00 Medical Branch SPINAL SPINAL Diagnosis Active 2020-092021-09-26 Me donnaa CORD CORD 11-24 08:25:00 l STIMULATOR STIMULATOR 00:00: He rmann INSERTION INSERTION 00 Active 09/23/2021 [facility] UNK UNK Diagnosis Active 2020-092021-09-24 Mem oria Active 11-24 12:49:00 l 09/23/2021 00:00: Tera leon [address] Other Other Disease Active 2020-09 Univers age-relate age-relate 11-03 it y of d cataract d cataract [place] of left 00 Medical eye eye Branch RADICULOPA RADICULOP Diagnosis Active 2020-10-15 Alex THY, ATHY, 10-04 07:21:00 l LUMBAR LUMBAR 00:00: [place] [facility]ION 00 Active 10/04/2020 [facility] Obesity Obesity Disease Active Univers (BMI (BMI [...] 00 Medical Branch Impaired Impaired Problem Active 2023-02-19 [facility] mobility mobility 04-28 14:16:11 l (finding) (finding) 00:00: Herm adam Active 00 04/28/2011 Problem 02/19/2023 [facility] [id number] Essential Problem Comm on hypertensi Spirit on - CHI [facility] [id number] [place] [id number] prostatic Spirit hyperplasi - CHI a with [facility] tract Center symptoms [id number] Other Problem Common secondary Spirit acute gout - CHI of left [facility] [id number] Type 2 Problem Common diabetes Spirit mellitus - [facility] unspecifie Center d whether varnish maker insulin use [id number] Acquired Problem Comm on hypothyroi Spirit dism - [facility] [id number] Frequency Problem Com mon of Spirit micturitio - CHI n [facility] [id number] Mass in Problem Commo n neck [facility] [id number] History of Problem C ommon right Spirit below knee - CHI amputation [facility] [id number] Cervical Problem Com mon osteophyte [facility] [id number] [place] [address] exam [facility] [id number] Chronic Problem 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 [facility] vein of Center both lower extremitie s [id number] Folic acid Problem Co mmon deficiency [facility] [id number] Polyneurop Problem Co mmon athy Spirit associated - CHI with [facility] disease [facility] 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 - CHI diabetes with [facility] diabetic [facility] polyneurop Medica l [facility], Center without long-term current use of insulin [id number] Benign Problem Common prostatic Spirit hyperplasi - CHI a without [facility] urinary Medical tract Center symptoms [id number] PAD Problem Common (periphera Spirit l artery - CHI disease) [facility] [id number] Mixed Problem Common hyperlipid Spirit emia - [facility] Polyneurop Polyneurop Problem C ommon athy athy Spirit - [facility] Angina Angina Problem Active 2023-02-19 Brodie douglas (disorder) (disorder) 14:16:11 l Active Michael Problem 02/19/2023 [facility] Carpal Carpal Problem Active 2023-02-19 Mem oria tunnel tunnel 14:16:11 l syndrome syndrome Tera n (disorder) (disorder) Active Problem 02/19/2023 [facility] [place] [facility] 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-19 Memoria radiculopa radiculopa 14:16:11 l thy thy Michael (disorder) (disorder) Active Problem 02/19/2023 [facility] [place] [facility] 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-19 Memoria spondylosi spondylosi 14:16:11 l s s Michael (disorder) (disorder) Active Problem 02/19/2023 [facility] [place] [facility] Diabetes Diabetes Problem Active 2023-02-19 Memoria mellitus mellitus 14:16:11 l (disorder) (disorder) He rmann Active Problem 02/19/2023 [facility] Hyperlipid Hyperlipi Problem Active 2023-02-19 Memoria emia demia 14:16:11 l (disorder) (disorder) He rmann Active Problem 02/19/2023 [facility] Hypertensi Hypertens Problem Active 2023-02-19 Memoria ve phi 14:16:11 l disorder, disorder, Herm adam systemic systemic arterial arterial (disorder) (disorder) Active Problem 02/19/2023 [facility] Pain Pain Problem Active 2023-02-19 Memor ia (finding) (finding) 14:16:11 l Active Michael Problem 02/19/2023 [facility] Submandibu Submandib Problem Active 2023-02-19 Memoria lar ular 14:16:11 l lymphadeno lymphadeno He [facility] ryne ryne (disorder) (disorder) Active Problem 02/19/2023 [facility] Raised Raised Problem Active [place] Prostate da specific Specific Medica l antigen [facility] Hypothyroi Hypothyro Problem Resolve 2021-09-28 Memoria dism idism d 22:42:20 l (disorder) (disorder) He rmann Resolved Problem 09/28/2021 [facility] Allergies, Adverse Reactions, Alerts Allergy Allergy Status [...] Memori a Medicati Medicati l on on [place] Allergie Allergie s s NO KNOWN Drug Active [facility] ALLERGIE Class ity of S [facility] amlodipi amlodipi Active CP, SOB, Comm on ne ne Nausea Spirit - [facility] Social History Social Habit Start Date Stop Date Quantity Comments Source Sex Assigned At Common Sp josee - [facility] History of Common Spirit - Tobacco Use [facility] History SDOH Food 2022-08-14 2022-08-14 1 Univers ity of Worry 00:00:00 00:00:00 [facility] History SDOH Food 2022-08-14 2022-08-14 1 Univers ity of Scarcity 00:00:00 00:00:00 [place] [facility] [place] History [facility] 2022-08-14 2022-08-14 2 University o f Transport Med 00:00:00 00:00:00 [facility] al Branch History [facility] 2022-08-14 2022-08-14 2 University o f Transport Non-Med 00:00:00 00:00:00 [facility] edical Branch Alcohol intake 2022-08-13 2022-08-13 0 /d University of 00:00:00 00:00:00 [facility] Exposure to 2022-08-02 2022-08-12 Not sure [facility] SARS-CoV-2 00:00:00 10:42:00 [facility] (event) [place] Tobacco use and 2022-05-19 2022-05-19 Smokeless tobacco Un iversity of exposure 00:00:00 00:00:00 non-user [facility] Social History 2021-09-24 2021-09-24 Cory thompson 15:29:23 15:29:23 Smoking Status Start Date Stop Date Source Tobacco smoking status [facility] Medications Ordered Filled Start Stop Current Ordering Indication Dosage Frequency Signature Comments Components Source Medication Medication Date Date Medication? Clinician (SIG) Name Name gabapentin Yes 100 mg = 1 M emoria 100 mg oral 5-23 cap, PO, l capsule 16:35: TID, # 90 Roz nn 00 cap, 1 Refill(s), Pharmacy: [facility] 482, 175.26, cm, 02/16/23 11:00:00 CDT, Height, 91.364, kg, 02/16/23 11:00:00 CDT, Weight ondansetron Yes TAKE 1 Brodie douglas 4 mg oral 5-23 TABLET BY l tablet 16:33: MOUTH Michael 00 EVERY 12 HOURS NEEDED diazepam 5 Yes TAKE 1 Memor ia mg oral 5-23 TABLET BY l tablet 16:33: MOUTH Michael 00 EVERY 8 HOURS NEEDED FOR ANXIETY tramadol 50 Yes TAKE 1 Brodie douglas mg oral 5-23 TABLET BY l tablet 16:33: MOUTH Michael 00 EVERY 8 HOURS NEEDED FOR PAIN acetaminoph Yes TAKE 1 Brodie douglas en-hydrocod 5-23 TABLET BY l one 325 16:33: MOUTH [place] mg-10 mg 00 EVERY 8 oral tablet HOURS NEEDED Vitamin D3 0 Yes 50 Memoria 2000 intl 4-18 microgram l units oral 20:16: = 1 tab, Her crews tablet 00 PO, Daily, 0 Refill(s) Vitamin D3 0 Yes 50 Memoria 2000 intl 4-18 microgram l units oral 20:16: = 1 tab, Her crews tablet 00 PO, Daily, 0 Refill(s) Vitamin D3 0 Yes 50 Memoria 2000 intl 4-18 microgram l units oral 20:16: = 1 tab, Her crews tablet 00 PO, Daily, 0 Refill(s) Vitamin D3 2022-0 Yes 50 Memoria 2000 intl 4-18 microgram l units oral 20:16: = 1 tab, Her crews tablet 00 PO, Daily, 0 Refill(s) Vitamin D3 0 Yes 50 Memoria 2000 intl 4-18 microgram l units oral 20:16: = 1 tab, Her crews tablet 00 PO, Daily, 0 Refill(s) atorvastati 2021-09 Yes 20mg 20 mg, Univ ers n (LIPITOR) 1-18 Oral, QHS, it y of tablet 20 03:00: [place] 00 on [facility] Medical 08/13/22 Branch at 2100, Until Discontinu ed sulfur 2021-09- No [id number] 5mL 5 mL, Unive rs hexafluorid 10-13 Intravenou i ty of e microsphr 20:30: 20:30 s, ONCE, 1 [place] (LUMASON) 00 :00 dose, On Medica l injection 5 Maegan Branch mL 08/13/22 at 1430, Routine
member of congress approving Restricted medication : MANDY VAUGHN clopidogreL 2021-09 Yes 75mg Take 75 mg Univers (PLAVIX) 75 1-17 by mouth ity of mg tablet 16:36: in the [place] [address] morning. Medical Branch Levothyroxi 2021-09 Yes Take by Uni vers ne 75 mcg 1-17 mouth. ity of capsule 16:36: [place] Medical Branch finasteride 2021-09 Yes 5mg Take 5 mg U nivers 5 mg tablet 1-17 by mouth ity of 16:36: in the [place] [address] morning. Medical Branch losartan 2021-09 Yes 100mg Take 100 Univ ers 100 mg 1-17 mg by ity of tablet 16:36: mouth in [place] [address] the Medical morning. Branch metFORMIN 2021-09 Yes 500mg Take 500 Uni vers 500 mg 1-17 mg by ity of tablet 16:36: mouth in [place] [address] the Medical morning Branch and 500 mg in the evening. Take with meals. lovastatin 2021-09 Yes 20mg Take 20 mg U nivers 20 mg 1-17 by mouth ity of tablet 16:36: at [place] [address] bedtime. Medical Branch tamsulosin 2021-09 Yes Take by Univ ers (FLOMAX) 1-17 mouth ity of 0.4 mg 24 16:36: daily. [facility] Medical Branch ergocalcife 2021-09 Yes 2000U Take 2,000 Univers rol, 1-17 Units by ity of vitamin D2, 16:36: mouth. Servando s (VITAMIN D Medical ORAL) Branch aspirin 81 2021-09 Yes 81mg Take 81 mg U nivers mg chewable 1-17 by mouth ity of tablet 16:36: in the [place] morning. Medical Branch clopidogreL 2021-09 Yes 75mg Take 75 mg Univers (PLAVIX) 75 1-17 by mouth ity of mg tablet 16:36: in the [place] [address] morning. Medical Branch Levothyroxi 2021-09 Yes Take by Uni vers ne 75 mcg 1-17 mouth. ity of capsule 16:36: [place] [address] Medical Branch finasteride 2021-09 Yes 5mg Take 5 mg U nivers 5 mg tablet 1-17 by mouth ity of 16:36: in the [place] [address] morning. Medical Branch losartan 2021-09 Yes 100mg Take 100 Univ ers 100 mg 1-17 mg by ity of tablet 16:36: mouth in [place] the Medical morning. Branch metFORMIN 2021-09 Yes 500mg Take 500 Uni vers 500 mg 1-17 mg by ity of tablet 16:36: mouth in [place] the Medical morning Branch and 500 mg in the evening. Take with meals. lovastatin 2021-09 Yes 20mg Take 20 mg U nivers 20 mg 1-17 by mouth ity of tablet 16:36: at [place] [address] bedtime. Medical Branch tamsulosin 2021-09 Yes Take by Univ ers (FLOMAX) 1-17 mouth ity of 0.4 mg 24 16:36: daily. [place] hr capsule 03 Medical Branch ergocalcife 2021-09 Yes 2000U Take 2,000 Univers rol, 1-17 Units by ity of vitamin D2, 16:36: mouth. Servando s (VITAMIN D Medical ORAL) Branch aspirin 81 2021-09 Yes 81mg Take 81 mg U nivers mg chewable 1-17 by mouth ity of tablet 16:36: in the [place] [address] morning. Medical Branch clopidogreL 2021-09 Yes 75mg Take 75 mg Univers (PLAVIX) 75 1-17 by mouth ity of mg tablet 16:36: in the [place] [address] morning. Medical Branch Levothyroxi 2021-09 Yes Take by Uni vers ne 75 mcg 1-17 mouth. ity of capsule 16:36: [place] [address] Medical Branch finasteride 2021-09 Yes 5mg Take 5 mg U nivers 5 mg tablet 1-17 by mouth ity of 16:36: in the [place] [address] morning. Medical Branch losartan 2021-09 Yes 100mg Take 100 Univ ers 100 mg 1-17 mg by ity of tablet 16:36: mouth in [place] the Medical morning. Branch metFORMIN 2021-09 Yes 500mg Take 500 Uni vers 500 mg 1-17 mg by ity of tablet 16:36: mouth in [place] the Medical morning Branch and 500 mg in the evening. Take with meals. lovastatin 2021-09 Yes 20mg Take 20 mg U nivers 20 mg 1-17 by mouth ity of tablet 16:36: at [place] [address] bedtime. Medical Branch tamsulosin 2021-09 Yes Take by Univ ers (FLOMAX) 1-17 mouth ity of 0.4 mg 24 16:36: daily. [place] hr capsule [facility] Branch ergocalcife 2021-09 Yes 2000U Take 2,000 Univers rol, 1-17 Units by ity of vitamin D2, 16:36: mouth. [facility] s (VITAMIN D Medical ORAL) [place] aspirin 81 2021-09 Yes 81mg Take 81 mg U nivers mg chewable -17 by mouth ity of tablet 16:36: in the [place] morning. Medical Branch polyethylen 2021-09 Yes 17g 17 g, Unive rs e glycol -17 Oral, ity of 3350 powder 15:00: [place] 17 g 00 First dose Medical on [facility] 08/13/22 at 0900, Until Discontinu ed, Routine tamsulosin 2021-09 Yes .4mg 0.4 mg, Univ ers (FLOMAX) - Oral, ity of capsule 0.4 15:00: [place]ILY, [place] mg 00 First dose Medical on [facility] 08/13/22 at 0900, Until Discontinu ed, Routine losartan 2021-09 Yes 100mg 100 mg, Unive rs (COZAAR) -17 Oral, ity of tablet 100 15:00: DAILY, [place] mg 00 First dose Medical on [facility] 08/13/22 at 0900, Until Discontinu ed, Routine finasteride 2021-09 Yes 5mg 5 mg, Unive rs (PROSCAR) - Oral, ity of tablet 5 mg 15:00: [place]ILY, [place] 00 First dose Medical on [facility] 08/13/22 at 0900, Until Discontinu ed, Routine clopidogreL 2021-09 Yes 75mg 75 mg, Univ ers (PLAVIX) 75 -17 Oral, ity of mg tablet 15:00: DAILY, [place] 75 mg 00 First dose Medical on [facility] 08/13/22 at 0900, Until Discontinu ed, Routine aspirin 2021-09 Yes 81mg 81 mg, Univers chewable -17 Oral, ity of tablet 81 15:00: DAILY, [place] mg 00 First dose Medical on [facility] 08/13/22 at 0900, Until Discontinu ed, Routine enoxaparin 2021-09 Yes 40mg 40 mg, Unive rs (LOVENOX) -17 Subcutaneo ity of injection 15:00: us, DAILY, [...] on Wed Branch 08/12/22 at 1900, Until 08/14/22 at 1859, Routine, Pain (scale 4-6) acetaminoph 2021-09 Yes 650mg 650 mg, Un jovi en 10-13 Oral, ity of (TYLENOL) 00:59: Q6HPRN, [place] tablet 650 59 Starting Medic al mg on Wed Branch 08/12/22 at 1859, Until Discontinu ed, Routine, Pain (scale 1-3) iopamidol 2021-09- No [id number] 100mL 100 mL, Univers (ISOVUE 10-12 Intravenou ity o f 370-500 mL) 19:45: 19:33 s, ONCE, 1 [place] injection 00 :00 dose, On Medica l 100 mL Wed [place] 08/12/22 at 1345, Routine hydralAZINE 2021-09- No [...] mg 00 :00 dose, On Medical Wed [place] 08/12/22 at 1315, STAT morpHINE (4 2021-09- No 4mg 4 mg, Slow Univers mg/mL) 10-12 IV Push, ity of injection 4 19:00: 18:55 ONCE, 1 [place] mg 00 :00 dose, On Medical [facility] Branch 08/12/22 at 1300, STAT nitroglycer [...] ity of (PF)) 17:15: 17:11 ONCE, 1 [place] injection 4 00 :00 dose, On Medi balbina mg Wed [place] 08/12/22 at 1115, VAUGHN morpHINE (4 2021-09- No 4mg 4 mg, Slow Univers mg/mL) 10-12 IV Push, ity of injection 4 17:15: 17:12 ONCE, 1 [place] mg 00 :00 dose, On Medical [facility] 08/12/22 at 1115, STAT Lidocaine & Lidocaine [...] 0 2021- No QD Lidocaine Adhesive Adhesive 06-1913 [...] 00 :00 (Patch) meloxicam 2021-0 2021- No [id number] 15mg Take 1 Univers 15 mg 05-19 [id number] tablet by ity of tablet 00:00: 04:59 mouth in [place] 00 :00 the Medical morning [place] for 30 days. meloxicam 2021-0 2021- No [id number] 15mg Take 1 Univers 15 mg 05-19 [id number] tablet by ity of tablet 00:00: 04:59 mouth in [place] 00 :00 [facility] morning [place] for 30 days. meloxicam 2021-0 2021- No [id number] 15mg Take 1 Univers 15 mg 05-19 [id number] tablet by ity of tablet 00:00: 04:59 mouth in [place] 00 :00 [facility] morning [place] for 30 days. methylPREDN 2021-0 Yes [id number] 84mg Take 21 Univers ISolone 5-23 9103 tablets by ity of (MEDROL, 00:00: mouth [place] MICHELE,) 4 mg 00 SEE-INSTRU Med ical tablets CTIONS. Branch follow package directions methylPREDN 2021-0 Yes [id number] 84mg Take 21 Univers ISolone 5-23 9103 tablets by ity of (MEDROL, 00:00: mouth [place] MICHELE,) 4 mg 00 SEE-INSTRU Med ical tablets CTIONS. Branch follow package directions methylPREDN 2-0 Yes [id number] 84mg Take 21 Univers ISolone 5-23 9103 tablets by ity of (MEDROL, 00:00: mouth [place] MICHELE,) 4 mg 00 SEE-INSTRU Med ical tablets CTIONS. Branch follow package directions methylPREDN 2-0 Yes [id number] 84mg Take 21 Univers ISolone 5-23 9103 tablets by ity of (MEDROL, 00:00: mouth [place] MICHELE,) 4 mg 00 SEE-INSTRU Med ical tablets CTIONS. Branch follow package directions methylPREDN 2021- No [id number] 84mg Take 21 Univers ISolone 5- 11-17 9103 tablets by itsaleem swan f (MEDROL, 00:00: 00:00 mouth [place] MICHELE,) 4 mg 00 :00 SEE-INSTRU Med ical tablets CTIONS. Branch follow package directions Meloxicam Meloxicam 2021- No 1{table QD Meloxicam 7.5 MG 7.5 MG 5- 06-10 t} 7.5 MG 00:00: 00:00 00 :00 Meloxicam Meloxicam 2021- No 1{table QD Meloxicam 7.5 MG 7.5 MG -08 02-10 t} 7.5 MG 00:00: 00:00 00 :00 tiZANidine tiZANidine 2021- No 1{table tiZANidine HCl 4 MG HCl 4 MG 02-04 t_as_ne HCl 4 MG 00:00: 00:00 eded} 00 :00 Rocephin Rocephin 0 No 1000mg Com mon (Ceftriaxon (Ceftriaxon 4-11 S pirit e) e) 00:00: - [facility] Toradol Toradol 0 No 30mg Common (Ketorolac) (Ketorolac) 4-11 S pirit 00:00: - [facility] Rocephin Rocephin 2021-0 No 1000mg Com mon (Ceftriaxon (Ceftriaxon 4-11 S pirit e) e) 00:00: - [facility] Toradol Toradol 2021-0 No 30mg Common (Ketorolac) (Ketorolac) 4-11 S pirit 00:00: - [facility] Rocephin Rocephin 2021-0 No 1000mg Com mon (Ceftriaxon (Ceftriaxon 4-11 S pirit e) e) 00:00: - [facility] Toradol Toradol 0 No 30mg Common (Ketorolac) (Ketorolac) 4-11 S pirit 00:00: - CHI 00 [facility] Naproxen Naproxen 2-0 No BID Naproxen 500 MG 500 MG 4-11 500 MG 00:00: 00 Rocephin Rocephin 2-0 No 1000mg Com mon (Ceftriaxon (Ceftriaxon 4-11 S pirit e) e) 00:00: - [facility] Toradol Toradol 2021-0 No 30mg Common (Ketorolac) (Ketorolac) 4-11 S pirit 00:00: - CHI 00 [facility] Naproxen Naproxen 2-0 No BID Naproxen 500 MG 500 MG 4-11 500 MG 00:00: 00 Rocephin Rocephin 2-0 No 1000mg Com mon (Ceftriaxon (Ceftriaxon 4-11 S pirit e) e) 00:00: - [facility] Toradol Toradol 2-0 No 30mg Common (Ketorolac) (Ketorolac) 4-11 S pirit 00:00: - CHI 00 [facility] Rocephin Rocephin 2-0 No 1000mg Com mon (Ceftriaxon (Ceftriaxon 4-11 S pirit e) e) 00:00: - [facility] Toradol Toradol 2-0 No 30mg Common (Ketorolac) (Ketorolac) 4-11 S pirit 00:00: - [facility] Rocephin Rocephin 2-0 No 1000mg Com mon (Ceftriaxon (Ceftriaxon 4-11 S pirit e) e) 00:00: - [facility] Toradol Toradol 2-0 No 30mg Common (Ketorolac) (Ketorolac) 4-11 S pirit 00:00: - [facility] Rocephin Rocephin 2-0 No 1000mg Com mon (Ceftriaxon (Ceftriaxon 4-11 S pirit e) e) 00:00: - [facility] Toradol Toradol 2-0 No 30mg Common (Ketorolac) (Ketorolac) 4-11 S pirit 00:00: - CHI 00 [facility] Rocephin Rocephin 2-0 No 1000mg Com mon (Ceftriaxon (Ceftriaxon 4-11 S pirit e) e) 00:00: - CHI 00 [facility] Toradol Toradol 2021-0 No 30mg Common (Ketorolac) (Ketorolac) 4-11 S pirit 00:00: - CHI 00 [facility] Rocephin Rocephin 2-0 No 1000mg Com mon (Ceftriaxon (Ceftriaxon 4-11 S pirit e) e) 00:00: - CHI 00 [facility] Toradol Toradol 2021-0 No 30mg Common (Ketorolac) (Ketorolac) 4-11 S pirit 00:00: - CHI 00 [facility] Rocephin Rocephin 2-0 No 1000mg Com mon (Ceftriaxon (Ceftriaxon 4-11 S pirit e) e) 00:00: - [facility] Toradol Toradol 2021-0 No 30mg Common (Ketorolac) (Ketorolac) 4-11 S pirit 00:00: - CHI 00 [facility] Rocephin Rocephin 2-0 No 1000mg Com mon (Ceftriaxon (Ceftriaxon 4-11 S pirit e) e) 00:00: - CHI 00 [facility] Toradol Toradol 2021-0 No 30mg Common (Ketorolac) (Ketorolac) 4-11 S pirit 00:00: - [facility] Rocephin Rocephin 2-0 No 1000mg Com mon (Ceftriaxon (Ceftriaxon 4-11 S pirit e) e) 00:00: - [facility] Toradol Toradol 2021-0 No 30mg Common (Ketorolac) (Ketorolac) 4-11 S pirit 00:00: - [facility] cefTRIAXone cefTRIAXone 2-0 No 1000mg Common Sodium Sodium 4-11 Spirit 00:00: - [facility] Toradol Toradol 2021-0 No 30mg Common (Ketorolac) (Ketorolac) 4-11 S pirit 00:00: - [facility] cefTRIAXone cefTRIAXone No 1000mg Common Sodium Sodium 11 Spirit 00:00: - [facility] Toradol Toradol No 30mg Common (Ketorolac) (Ketorolac) 01-05 S pirit 00:00: - [facility] Amoxicillin Amoxicillin 0 2021- No 1{table BID Amoxicilli -Pot -Pot 01-05 04-18 t} n-Pot Clavulanate Clavulanate 00:00: 00:00 Clavulanat 875-125 MG 875-125 MG 00 :00 e 875-125 MG ceFAZolin 2020-09 No Route: IV, Me moria (ANES) Drug form: l 18:23: INJ, ONCE, Stop date: 09/26/21 12:23:00 [employer] ondansetron 2020-09 No Route: IV, Memoria (ANES) Drug form: l 18:23: INJ, ONCE, Stop date: 09/26/21 12:23:00 [employer] dexamethaso 2020-09 No Route: IV, Memoria ne (ANES) Drug form: l 18:23: INJ, ONCE, Stop date: 09/26/21 12:23:00 [employer] lidocaine 2020-09 No Route: IV, Me moria (ANES) Drug form: l 18:23: INJ, ONCE, Stop date: 09/26/21 12:23:00 [employer] propofol 2020-09 No Route: IV, Mem oria (ANES) Drug form: l 18:23: INJ, ONCE, Stop date: 09/26/21 12:23:00 [employer] ceFAZolin 2020-09 No Route: IV, Me moria (ANES) Drug form: l 18:23: INJ, ONCE, Stop date: 09/26/21 12:23:00 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 ondansetron 2020-09 No Route: IV, Memoria (ANES) Drug form: l 18:23: INJ, ONCE, Stop date: 09/26/21 12:23:00 FISHER SEAL dexamethaso 2020-09 No Route: IV, Memoria ne (ANES) - Drug form: l 18:23: INJ, ONCE, Stop date: 09/26/21 12:23:00 FISHER SEAL lidocaine 2020-09 No Route: IV, Me moria (ANES) - Drug form: l 18:23: INJ, ONCE, Stop date: 09/26/21 12:23:00 FISHER SEAL propofol 2020-09 No Route: IV, Mem oria (ANES) Drug form: l 18:23: INJ, ONCE, Stop date: 09/26/21 12:23:00 FISHER SEAL ceFAZolin 2020-09 No Route: IV, Me moria (ANES) - Drug form: l 18:23: INJ, ONCE, Stop date: 09/26/21 12:23:00 FISHER SEAL ondansetron 2020-09 No Route: IV, Memoria (ANES) Drug form: l 18:23: INJ, ONCE, Stop date: 09/26/21 12:23:00 FISHER SEAL dexamethaso 2020-09 No Route: IV, Memoria ne (ANES) Drug form: l 18:23: INJ, ONCE, Stop date: 09/26/21 12:23:00 FISHER SEAL lidocaine 2020-09 No Route: IV, Me moria (ANES) Drug form: l 18:23: INJ, ONCE, Stop date: 09/26/21 12:23:00 FISHER SEAL ceFAZolin 2020-09 No Route: IV, Me moria (ANES) Drug form: l 18:23: INJ, ONCE, Stop date: 09/26/21 12:23:00 FISHER SEAL ondansetron 2020-09 No Route: IV, Memoria (ANES) 2- Drug form: l 18:23: INJ, ONCE, Stop date: 09/26/21 12:23:00 FISHER SEAL dexamethaso 2020-09 No Route: IV, Memoria ne (ANES) 2- Drug form: l 18:23: INJ, ONCE, Stop date: 09/26/21 12:23:00 FISHER SEAL lidocaine 2020-09 No Route: IV, Me moria (ANES) 2- Drug form: l 18:23: INJ, ONCE, Stop date: 09/26/21 12:23:00 FISHER SEAL propofol 2020-09 No Route: IV, Mem oria (ANES) 2- Drug form: l 18:23: INJ, ONCE, Stop date: 09/26/21 12:23:00 FISHER SEAL propofol 2020-09 No Route: IV, Mem oria (ANES) 2- Drug form: l 18:23: INJ, ONCE, Stop date: 09/26/21 12:23:00 FISHER SEAL ceFAZolin 2020-09 No Route: IV, Me moria (ANES) 2- Drug form: l 18:23: INJ, ONCE, Stop date: 09/26/21 12:23:00 FISHER SEAL ondansetron 2020-09 No Route: IV, Memoria (ANES) 2- Drug form: l 18:23: INJ, ONCE, Stop date: 09/26/21 12:23:00 FISHER SEAL dexamethaso 2020-09 No Route: IV, Memoria ne (ANES) 2 Drug form: l 18:23: INJ, ONCE, Stop date: 09/26/21 12:23:00 FISHER SEAL lidocaine 2020-09 No Route: IV, Me moria (ANES) 2- Drug form: l 18:23: INJ, ONCE, Stop date: 09/26/21 12:23:00 FISHER SEAL propofol 2020-09 No Route: IV, Mem oria (ANES) 2- Drug form: l 18:23: INJ, ONCE, Stop date: 09/26/21 12:23:00 FISHER SEAL ceFAZolin 2020-09 No Route: IV, Me moria (ANES) 2- Drug form: l 18:23: INJ, ONCE, Stop date: 09/26/21 12:23:00 FISHER SEAL ondansetron 2020-09 No Route: IV, Memoria (ANES) 2- Drug form: l 18:23: INJ, ONCE, Stop date: 09/26/21 12:23:00 FISHER SEAL dexamethaso 2020-09 No Route: IV, Memoria ne (ANES) 2- Drug form: l 18:23: INJ, ONCE, Stop date: 09/26/21 12:23:00 FISHER SEAL lidocaine 2020-09 No Route: IV, Me moria (ANES) Drug form: l 18:23: INJ, ONCE, Stop date: 09/26/21 12:23:00 FISHER SEAL propofol 2020-09 No Route: IV, Mem oria (ANES) 2 Drug form: l 18:23: INJ, ONCE, Stop date: 09/26/21 12:23:00 FISHER SEAL ceFAZolin 2020-09 No Route: IV, Me moria (ANES) - Drug form: l 18:23: INJ, ONCE, Stop date: 09/26/21 12:23:00 FISHER SEAL ondansetron 2020-09 No Route: IV, Memoria (ANES) 2 Drug form: l 18:23: INJ, ONCE, Stop date: 09/26/21 12:23:00 FISHER SEAL dexamethaso 2020-09 No Route: IV, Memoria ne (ANES) Drug form: l 18:23: INJ, ONCE, Stop date: 09/26/21 12:23:00 FISHER SEAL lidocaine 2020-09 No Route: IV, Me moria (ANES) Drug form: l 18:23: INJ, ONCE, Stop date: 09/26/21 12:23:00 FISHER SEAL propofol 2020-09 No Route: IV, Mem oria (ANES) 2 Drug form: l 18:23: INJ, ONCE, Stop date: 09/26/21 12:23:00 FISHER SEAL midazolam 2020-09 No Route: IV, Me moria (ANES) 2- Drug form: l 18:22: SOLN, ONCE, Stop date: 09/26/21 12:22:00 FISHER SEAL fentaNYL 2020-09 No Route: IV, Mem oria (ANES) 2- Drug form: l 18:22: INJ, ONCE, Stop date: 09/26/21 12:22:00 FISHER SEAL midazolam 2020-09 No Route: IV, Me moria (ANES) 2-31 Drug form: l 18:22: SOLN, [place] 00 ONCE, Stop date: 09/26/21 12:22:00 FISHER SEAL fentaNYL 2020-09 No Route: IV, Mem oria (ANES) 2- Drug form: l 18:22: INJ, ONCE, [place] 00 Stop date: 09/26/21 12:22:00 FISHER SEAL midazolam 2020-09 No Route: IV, Me moria (ANES) 2- Drug form: l 18:22: SOLN, Michael 00 ONCE, Stop date: 09/26/21 12:22:00 FISHER SEAL fentaNYL 2020-09 No Route: IV, Mem oria (ANES) 2- Drug form: l 18:22: INJ, ONCE, [place] 00 Stop date: 09/26/21 12:22:00 FISHER SEAL midazolam 2020-09 No Route: IV, Me moria (ANES) 2- Drug form: l 18:22: SOLN, [place] 00 ONCE, Stop date: 09/26/21 12:22:00 FISHER SEAL fentaNYL 2020-09 No Route: IV, Mem oria (ANES) 2- Drug form: l 18:22: INJ, ONCE, [place] 00 Stop date: 09/26/21 12:22:00 FISHER SEAL midazolam 2020-09 No Route: IV, Me moria (ANES) 2-31 Drug form: l 18:22: SOLN, [place] 00 ONCE, Stop date: 09/26/21 12:22:00 FISHER SEAL fentaNYL 2020-09 No Route: IV, Mem oria (ANES) 2-31 Drug form: l 18:22: INJ, ONCE, [place] 00 Stop date: 09/26/21 12:22:00 FISHER SEAL midazolam 2020-09 No Route: IV, Me moria (ANES) 2-31 Drug form: l 18:22: SOLN, [place] 00 ONCE, Stop date: 09/26/21 12:22:00 FISHER SEAL fentaNYL 2020-09 No Route: IV, Mem oria (ANES) 2-31 Drug form: l 18:22: INJ, ONCE, Michael 00 Stop date: 09/26/21 12:22:00 FISHER SEAL midazolam 2020-09 No Route: IV, Me moria (ANES) 2-31 Drug form: l 18:22: SOLN, Michael 00 ONCE, Stop date: 09/26/21 12:22:00 FISHER SEAL fentaNYL 2020-09 No Route: IV, Mem oria (ANES) 2-31 Drug form: l 18:22: INJ, ONCE, [place] 00 Stop date: 09/26/21 12:22:00 FISHER SEAL Lactated 2020-09 No Route: IV, Mem oria Ringers 2-31 Total l Injection 17:40: Volume: Roz nn IV (ANES) 00 1,000, 1000 mL Start date: 09/26/21 11:40:00 FISHER SEAL, Stop date: 09/26/21 12:40:00 FISHER SEAL Lactated 2020-09 No Route: IV, Mem oria Ringers 2-31 Total l Injection 17:40: Volume: Roz nn IV (ANES) 00 1,000, 1000 mL Start date: 09/26/21 11:40:00 FISHER SEAL, Stop date: 09/26/21 12:40:00 FISHER SEAL Lactated 2020-09 No Route: IV, Mem oria Ringers 2-31 Total l Injection 17:40: Volume: Roz nn IV (ANES) 00 1,000, 1000 mL Start date: 09/26/21 11:40:00 FISHER SEAL, Stop date: 09/26/21 12:40:00 FISHER SEAL Lactated 2020-09 No Route: IV, Mem oria Ringers 2-31 Total l Injection 17:40: Volume: Roz nn IV (ANES) 00 1,000, 1000 mL Start date: 09/26/21 11:40:00 FISHER SEAL, Stop date: 09/26/21 12:40:00 FISHER SEAL Lactated 2020-09 No Route: IV, Mem oria Ringers 2-31 Total l Injection 17:40: Volume: Roz nn IV (ANES) 00 1,000, 1000 mL Start date: 09/26/21 11:40:00 FISHER SEAL, Stop date: 09/26/21 12:40:00 FISHER SEAL Lactated 2020-09 No Route: IV, Mem oria Ringers 2-31 Total l Injection 17:40: Volume: Roz nn IV (ANES) 00 1,000, 1000 mL Start date: 09/26/21 11:40:00 FISHER SEAL, Stop date: 09/26/21 12:40:00 FISHER SEAL Lactated 2020-09 No Route: IV, Mem oria Ringers 2-31 Total l Injection 17:40: Volume: Roz nn IV (ANES) 00 1,000, 1000 mL Start date: 09/26/21 11:40:00 FISHER SEAL, Stop date: 09/26/21 12:40:00 FISHER SEAL Calcium 2020-09 No 1,000 mL, Memor ia Chloride 2-31 Rate: 75 l 0.0014 15:58: ml/hr, Michael MEQ/ML / 00 Infuse Potassium over: 13.3 Chloride hr, Route: 0.004 IV, Dosing MEQ/ML / Weight Sodium 99.545 kg, Chloride Total 0.103 Volume: MEQ/ML / 1,000, Sodium Start Lactate date: 0.028 09/26/21 MEQ/ML 9:58:00 Injectable FISHER SEAL, Solution Duration: 30 day, Stop date: 10/26/21 9:57:00 FISHER SEAL, BSA: 2.22 m2, 0 Calcium 2020-09 No 1,000 mL, Memor ia Chloride 2-31 Rate: 75 l 0.0014 15:58: ml/hr, Michael MEQ/ML / 00 Infuse Potassium over: 13.3 Chloride hr, Route: 0.004 IV, Dosing MEQ/ML / Weight Sodium 99.545 kg, Chloride Total 0.103 Volume: MEQ/ML / 1,000, Sodium Start Lactate date: 0.028 09/26/21 MEQ/ML 9:58:00 Injectable FISHER SEAL, Solution Duration: 30 day, Stop date: 10/26/21 9:57:00 FISHER SEAL, BSA: 2.22 m2, 0 Calcium 2020-09 No 1,000 mL, Memor ia Chloride 2-31 Rate: 75 l 0.0014 15:58: ml/hr, Michael MEQ/ML / 00 Infuse Potassium over: 13.3 Chloride hr, Route: 0.004 IV, Dosing MEQ/ML / Weight Sodium 99.545 kg, Chloride Total 0.103 Volume: MEQ/ML / 1,000, Sodium Start Lactate date: 0.028 09/26/21 MEQ/ML 9:58:00 Injectable FISHER SEAL, Solution Duration: 30 day, Stop date: 10/26/21 9:57:00 FISHER SEAL, BSA: 2.22 m2, 0 Calcium 2020-09 No 1,000 mL, Memor ia Chloride 2-31 Rate: 75 l 0.0014 15:58: ml/hr, Michael MEQ/ML / 00 Infuse Potassium over: 13.3 Chloride hr, Route: 0.004 IV, Dosing MEQ/ML / Weight Sodium 99.545 kg, Chloride Total 0.103 Volume: MEQ/ML / 1,000, Sodium Start Lactate date: 0.028 21 MEQ/ML 9:58:00 Injectable FISHER SEAL, Solution Duration: 30 day, Stop date: 10/26/21 9:57:00 FISHER SEAL, BSA: 2.22 m2, 0 Calcium 2020-09 No 1,000 mL, Memor ia Chloride 2-31 Rate: 75 l 0.0014 15:58: ml/hr, Michael MEQ/ML / 00 Infuse Potassium over: 13.3 Chloride hr, Route: 0.004 IV, Dosing MEQ/ML / Weight Sodium 99.545 kg, Chloride Total 0.103 Volume: MEQ/ML / 1,000, Sodium Start Lactate date: 0.028 21 MEQ/ML 9:58:00 Injectable FISHER SEAL, Solution Duration: 30 day, Stop date: 10/26/21 9:57:00 FISHER SEAL, BSA: 2.22 m2, 0 Calcium 2020-09 No 1,000 mL, Memor ia Chloride 2-31 Rate: 75 l 0.0014 15:58: ml/hr, Michael MEQ/ML / 00 Infuse Potassium over: 13.3 Chloride hr, Route: 0.004 IV, Dosing MEQ/ML / Weight Sodium 99.545 kg, Chloride Total 0.103 Volume: MEQ/ML / 1,000, Sodium Start Lactate date: 0.028 21 MEQ/ML 9:58:00 Injectable FISHER SEAL, Solution Duration: 30 day, Stop date: 10/26/21 9:57:00 FISHER SEAL, BSA: 2.22 m2, 0 Calcium 2020-09 No 1,000 mL, Memor ia Chloride 2-31 Rate: 75 l 0.0014 15:58: ml/hr, [place] MEQ/ML / 00 Infuse Potassium over: 13.3 Chloride hr, Route: 0.004 IV, Dosing MEQ/ML / Weight Sodium 99.545 kg, Chloride Total 0.103 Volume: MEQ/ML / 1,000, Sodium Start Lactate date: 0.028 09/26/21 MEQ/ML 9:58:00 Injectable FISHER SEAL, Solution Duration: 30 day, Stop date: 10/26/21 9:57:00 FISHER SEAL, BSA: 2.22 m2, 0 folic acid 2020-09 Yes 1 mg, PO, [...] flouric l Medication 15:15: acid PO Herm aadm 00 three times week, Refill(s) 0 Unknown [...] 1-15 0 l 20:18: Refill(s) Michael clopidogrel Yes 75 mg = 1 M emoria 75 mg oral 1-15 tab, PO, l tablet 20:18: Daily, # [place] 00 30 tab, 0 Refill(s) losartan Yes 100 mg, Memori a 1-15 PO, Daily, l 20:18: 0 Michael 00 Refill(s) levothyroxi 0 Yes 75 Memori a ne 1-15 microgram, l 20:18: PO, Daily, Michael 00 0 Refill(s) finasteride Yes 5 mg = 1 Me moria 1-15 tab, PO, l 20:18: Daily, # [place] 00 30 tab, 0 Refill(s) lovastatin 0 Yes 20 mg, PO, M emoria 1-15 0 l 20:18: Refill(s) Michael 00 clopidogrel 0 Yes 75 mg = 1 M emoria 75 mg oral 1-15 tab, PO, l tablet 20:18: Daily, # Michael 00 30 tab, 0 Refill(s) losartan 0 Yes 100 mg, Memori a 1-15 PO, Daily, l 20:18: 0 [place] 00 Refill(s) levothyroxi 0 Yes 75 Memori a ne 1-15 microgram, l 20:18: PO, Daily, Michael 00 0 Refill(s) finasteride 0 Yes 5 mg = 1 Me moria 1-15 tab, PO, l 20:18: Daily, # [place] 00 30 tab, 0 Refill(s) lovastatin Yes [...] 1-15 0 l 20:18: Refill(s) Accu-Chek Accu-Chek 2018-1 No Accu-Chek Tania Plus [...] Accu-Chek Accu-Chek 2019-1 No Accu-Chek Tania Plus Atnia Plus 0-03 [...] PO, Brodie douglas 6-22 Daily l 22:27: aspirin Yes 81 mg, PO, Brodie douglas 6-22 Daily l 22:27: aspirin Yes 81 mg, PO, Brodie douglas 6-22 Daily l 22:27: metFORmin Yes 500 mg, Memor ia 6-22 PO, 1 tab l 22:27: with [place] 14 breakfast, 1 tab at noon, 2 at dinner metFORmin Yes 500 mg, Memor ia 6-22 PO, 1 tab l 22:27: with [place] 14 breakfast, 1 tab at noon, 2 [...] Yes Regina 1 capsule Common HCl HCl [facility] metFORMIN metFORMIN No metFORMIN HCl 500 MG [...] 2022-08-13 17:39:00 151 mm[Hg] [facility] Diastolic blood 2022-08-13 17:39:00 94 mm[Hg] [facility] Heart rate 2022-08-13 17:39:00 82 /min [facility] Body temperature 2022-08-13 17:39:00 36.33 Annmarie [facility] 2022-08-13 17:39:00 18 /min [facility] Oxygen saturation in 2022-08-13 17:39:00 96 /min [facility] Arterial blood by [facility] Pulse oximetry Branch Body weight 2022-08-13 09:43:00 89.994 kg [facility] BMI 2022-08-13 09:43:00 29.30 kg/m2 [facility] Body height 2022-08-13 01:42:00 175.3 cm [facility] height 2022-06-19 11:00:00 69.5 [in_i] [facility] weight 2022-06-19 11:00:00 212 [lb_av] [facility] temperature 2022-06-19 11:00:00 98.6 [degF] [facility] bmi 2022-06-19 11:00:00 30.85 kg/m2 [facility] oximetry 2022-06-19 11:00:00 96 % [facility] respiratory rate 2022-06-19 11:00:00 17 /min [facility] blood pressure 2022-06-19 11:00:00 134 mm[Hg] Common [facility] blood pressure 2022-06-19 11:00:00 80 mm[Hg] [facility] height 2022-06-19 10:40:00 69.5 [in_i] [facility] weight 2022-06-19 10:40:00 212 [lb_av] Common [facility] temperature 2022-06-19 10:40:00 98.6 [degF] Common S [facility] bmi 2022-06-19 10:40:00 30.85 kg/m2 Common [facility] oximetry 2022-06-19 10:40:00 96 % Common [facility] respiratory rate 2022-06-19 10:40:00 17 /min Comm on [facility] blood pressure 2022-06-19 10:40:00 134 mm[Hg] Common [facility] - systolic [facility] blood pressure 2022-06-19 10:40:00 80 mm[Hg] [facility] height 2022-06-15 11:20:00 69.5 [in_i] Common [facility] weight 2022-06-15 11:20:00 212 [lb_av] Common [facility] temperature 2022-06-15 11:20:00 98.2 [degF] Common [facility] bmi 2022-06-15 11:20:00 30.85 kg/m2 Common [facility] oximetry 2022-06-15 11:20:00 97 % Common [facility] respiratory rate 2022-06-15 11:20:00 16 /min Comm on [facility] blood pressure 2022-06-15 11:20:00 134 mm[Hg] Common [facility] - systolic [facility] blood pressure 2022-06-15 11:20:00 76 mm[Hg] Common [facility] - diastolic [facility] Body height 2022-05-19 13:09:00 175.3 cm [facility] Body weight 2022-05-19 13:09:00 95.255 kg [facility] BMI 2022-05-19 13:09:00 31.01 kg/m2 [facility] height 2022-02-04 09:20:00 69.5 [in_i] Common [facility] weight 2022-02-04 09:20:00 211.8 [lb_av] Common [facility] temperature 2022-02-04 09:20:00 97.5 [degF] Common [facility] bmi 2022-02-04 09:20:00 30.83 kg/m2 Common [facility] oximetry 2022-02-04 09:20:00 95 % Common [facility] respiratory rate 2022-02-04 09:20:00 16 /min Comm on [facility] blood pressure 2022-02-04 09:20:00 134 mm[Hg] [facility] blood pressure 2022-02-04 09:20:00 78 mm[Hg] Common [facility] - diastolic [facility] height 2022-01-05 14:40:00 69.5 [in_i] Common [facility] weight 2022-01-05 14:40:00 210.4 [lb_av] [facility] temperature 2022-01-05 14:40:00 98.1 [degF] Common [facility] bmi 2022-01-05 14:40:00 30.62 kg/m2 Common [facility] oximetry 2022-01-05 14:40:00 97 % Common [facility] respiratory rate 2022-01-05 14:40:00 16 /min Comm on [facility] blood pressure 2022-01-05 14:40:00 138 mm[Hg] [facility] blood pressure 2022-01-05 14:40:00 74 mm[Hg] [facility] height 2021-12-22 08:40:00 69.5 [in_i] Common S pirit - [facility] weight 2021-12-22 08:40:00 216.8 [lb_av] Common [facility] temperature 2021-12-22 08:40:00 97.5 [degF] Common S pirit - [facility] bmi 2021-12-22 08:40:00 31.55 kg/m2 Common S [facility] oximetry 2021-12-22 08:40:00 97 % Common S [facility] respiratory rate 2021-12-22 08:40:00 16 /min Comm on [facility] blood pressure 2021-12-22 08:40:00 136 mm[Hg] Common [facility] - systolic [facility] blood pressure 2021-12-22 08:40:00 78 mm[Hg] [facility] height 2021-08-26 16:00:00 69.5 [in_i] Common S [facility] weight 2021-08-26 16:00:00 213.2 [lb_av] [facility] temperature 2021-08-26 16:00:00 98.3 [degF] [facility] 2021-08-26 16:00:00 31.03 kg/m2 Common S [facility] oximetry 2021-08-26 16:00:00 97 % Common [facility] respiratory rate 2021-08-26 16:00:00 16 /min Comm on [facility] blood pressure 2021-08-26 16:00:00 130 mm[Hg] [facility] blood pressure 2021-08-26 16:00:00 72 mm[Hg] [facility] height 2021-06-24 08:00:00 69.5 [in_i] Common S [facility] weight 2021-06-24 08:00:00 221.8 [lb_av] Common [facility] temperature 2021-06-24 08:00:00 99.0 [degF] Common [facility] bmi 2021-06-24 08:00:00 32.28 kg/m2 [facility] oximetry 2021-06-24 08:00:00 97 % Common [facility] respiratory rate 2021-06-24 08:00:00 16 /min Comm on [facility] blood pressure 2021-06-24 08:00:00 138 mm[Hg] Common [facility] - systolic [facility] blood pressure 2021-06-24 08:00:00 88 mm[Hg] Common [facility] - diastolic [facility] height 2021-03-25 08:40:00 69.5 [in_i] Common [facility] weight 2021-03-25 08:40:00 226.8 [lb_av] Common [facility] temperature 2021-03-25 08:40:00 97.8 [degF] Common [facility] bmi 2021-03-25 08:40:00 33.01 kg/m2 [facility] oximetry 2021-03-25 08:40:00 98 % Common [facility] respiratory rate 2021-03-25 08:40:00 16 /min Comm on [facility] blood pressure 2021-03-25 08:40:00 136 mm[Hg] Common [facility] - systolic [facility] blood pressure 2021-03-25 08:40:00 76 mm[Hg] Common [facility] - diastolic [facility] Systolic (mm Hg) 2023-02-16 15:48:00 Brodie Rodriguez Diastolic (mm Hg) 2023-02-16 15:48:00 Suleman Rodriguez Heart Rate 2023-02-16 15:48:00 [facility] Height 2023-02-16 15:48:00 5 [ft_i] [facility] Weight 2023-02-16 15:48:00 [facility] [place] BMI Calculated 2023-02-16 15:48:00 Memori al [place] Height 2023-02-12 13:17:00 5 [ft_i] [facility] Weight 2023-02-12 13:17:00 [facility] [place] BMI Calculated 2023-02-12 13:17:00 Memori al [place] Systolic (mm Hg) 2023-02-12 13:17:00 Brodie rial Michael Diastolic (mm Hg) 2023-02-12 13:17:00 Mem orial Michael Heart Rate 2023-02-12 13:17:00 [facility] Systolic (mm Hg) 2023-01-12 20:10:00 Brodie rial Michael Diastolic (mm Hg) 2023-01-12 20:10:00 Mem orial Michael Heart Rate 2023-01-12 20:10:00 [facility] [place] Height 2023-01-12 20:10:00 5 [ft_i] [facility] [place] Weight 2023-01-12 20:10:00 [facility] BMI Calculated 2023-01-12 20:10:00 Memori al Michael Respitory Rate 2021-09-26 19:20:00 Memori al [place] Systolic (mm Hg) 2021-09-26 19:20:00 Brodie rial [place] Diastolic (mm Hg) 2021-09-26 19:20:00 Mem orial [place] Respitory Rate 2021-09-26 19:05:00 Memori al Michael Systolic (mm Hg) 2021-09-26 19:05:00 Brodie rial [place] Diastolic (mm Hg) 2021-09-26 19:05:00 Mem orial [place] Respitory Rate 2021-09-26 18:50:00 Memori al Michael Systolic (mm Hg) 2021-09-26 18:50:00 Brodie rial Michael Diastolic (mm Hg) 2021-09-26 18:50:00 Mem orial Michael Weight 2021-09-26 16:27:00 [facility] [place] BMI Calculated 2021-09-26 16:27:00 Memori al [place] Heart Rate 2021-09-26 15:54:00 [facility] Height 2021-09-24 19:39:00 175.26 cm Cory Rodriguez Height 2021-09-24 15:25:00 175.26 cm Cory [place] Weight 2021-09-24 15:25:00 [facility] [place] BMI Calculated 2021-09-24 15:25:00 Db Boothe Procedures Procedure Date / Time Performing Clinician Source Performed NOTICE OF PRIVACY 2023-01-07 13:09:51 Doctor Unassigned, No [facility] PRACTICES Name [facility] CONSENT/REFUSAL FOR 2023-01-07 13:09:26 Doctor Unassigned, No [facility] DIAGNOSIS AND TREATMENT Name [facility] ASSIGNMENT OF BENEFITS 2023-01-07 13:08:59 Doctor Unassigned, No [facility] Name [facility] TRANSTHORACIC ECHO (TTE) 2022-08-13 20:02:00 Andre David [facility] COMPLETE W/ CONTRAST Medical [facility] POCT GLUCOSE (AUTOMATED) 2022-08-13 17:40:00 Alexandre Montemayor [facility] POCT GLUCOSE (AUTOMATED) 2022-08-13 13:32:00 Alexandre Montemayor [facility] MAGNESIUM 2022-08-13 09:50:00 [facility] BASIC METABOLIC PANEL 2022-08-13 09:50:00 Alexandre Montemayor [facility] (NA, K, CL, CO2, Medical Branch GLUCOSE, BUN, CREATININE, CA) CBC WITH DIFF 2022-08-13 09:50:00 Alexandre Montemayor [facility] PHOSPHORUS 2022-08-13 03:53:00 [facility] TROPONIN I 2022-08-13 02:32:00 [facility] POCT GLUCOSE (AUTOMATED) 2022-08-13 01:22:00 Alexandre Montemayor [facility] CT ANGIOGRAM CHEST 2022-08-12 19:53:05 Leonora Ruby [facility] CT ANGIOGRAM 2022-08-12 19:53:05 Leonora Ruby [facility] ABDOMEN/PELVIS Medical [place] HB ECG ROUTINE & RHYTHM 2022-08-12 19:09:59 Leonora Ruby [facility] TROPONIN I 2022-08-12 19:08:00 Leonora Ruby [facility] HB ECG ROUTINE & RHYTHM 2022-08-12 18:01:56 Leonora Ruby [facility] LIPASE 2022-08-12 17:05:[facility] 2022-08-12 17:05:00 Leonora Ruby [facility] COMP. METABOLIC PANEL 2022-08-12 17:05:00 Leonora Ruby [facility] ([id number]) [facility] CBC WITH DIFF 2022-08-12 17:05:00 Leonora Ruby [facility] GLYCOSYLATED HEMOGLOBIN 2022-08-12 17:05:00 Andre David [facility] (A1C) [facility] PROTHROMBIN TIME / INR 2022-08-12 17:05[facility]12 17:05[facility] N-TERMINAL PRO-BNP 2022-08-12 17:05:00 Leonora Ruby [facility] HB ECG ROUTINE & RHYTHM 2022-08-12 16:51:46 Leonora Ruby [facility] CONSENT/REFUSAL FOR 2022-08-12 16:16:12 Doctor Unassigned, No [facility] DIAGNOSIS AND TREATMENT Name [facility] REFERRAL- 2022-06-16 05:01:00 Doctor Unassigned, No [facility] REQUEST/RESPONSE Name [facility] CT, urogram 2018-07-07 00:00:00 [facility] 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<sup>1</sup> Laminectomy<sup>2</sup> [facility]<sup>[facility]</sup> Plan of Care Planned Activity Planned Date Details Comments Source Diagnostic Test 2018-07-07 cytology, urine [facility] Pending 00:00:00 [code = cytology, Group urine] Encounters Start End Encounter Admission Attending Care Care Encounter Source Date/Time Date/Time Type Type Clinicians Facility Department ID 2022-09-15 Outpatient Oliveira, STLMLC STLMLC [id number] Common 09:28:02 Maira [id number] [facility] 2021-10-22 Outpatient Oliveira, STLMLC STLMLC [id number] Common 14:27:24 Maira [id number] [facility] 2021-10-22 Outpatient Oliveira, STLMLC STLMLC [id number] Common 14:18:00 Maira [id number] [facility] 2021-10-22 Outpatient [place], STLMLC STLMLC [id number] Common 13:35:45 Regina [id number] [facility] 2021-10-22 [facility] [place], STLMLC STLMLC [id number] Common 12:41:58 Regina 07987 [facility] 2021-10-22 [place]patient [place], STLMLC STLMLC [id number] Common 12:40:52 Regina 45492 [facility] 2021-10-22 [place]patient [place], STLMLC STLMLC [id number] Common 12:12:33 Regina 79105 [facility] 2021-10-22 Outpatient [place], STLMLC STLMLC [id number] Common 11:56:49 Regina 77433 [facility] 2021-10-22 Outpatient [place], STLMLC STLMLC [id number] Common 11:56:09 Regina 84623 [facility] 2021-10-22 Outpatient [place], STLMLC STLMLC [id number] Common 11:21:52 Regina 16078 [facility] 2021-10-22 Outpatient [place], STLMLC STLMLC [id number] Common 11:07:15 Regina 68496 [facility] 2021-10-22 Outpatient [place], STLMLC STLMLC [id number] Common 11:06:53 Regina 42879 [facility] 2021-10-22 Outpatient [place], STLMLC STLMLC [id number] Common 10:59:53 Regina 26196 [facility] 2021-07-28 Emergency [facility] [id number] Univers 23:28:[facility]23-03-26 2023-03-26 Outpatient MHIE MHIE [id number] Memoria 09:45:00 09:45:00 02 eb KochMichael 2023-03-26 2023-03-26 Outpatient MHIE MHIE [id number] Memoria 09:45:00 09:45:00 02 eb [place] 2023-02-16 2023-02-17 Outpatient MHIE MNA [id number] Memoria 16:00:00 04:59:59 Neurology 03 eb Renetta Rodriguez 2023-02-16 2023-02-16 Outpatient Lis MHMISCHER MHMISCHER [id number] 11:00:00 23:59:59 Jeison 03 Grayson 2023-02-16 2023-02-16 Outpatient MHIE MHIE [id number] Memoria 11:00:00 11:00:00 03 eb Michael 2023-02-16 2023-02-16 Outpatient MHIE MHIE [id number] Memoria 11:00:00 11:00:00 03 eb Rodriguez 2023-02-12 2023-02-13 Outpatient MHIE MNA [id number] Memoria 13:15:00 04:59:59 Neurology 01 eb Rodriguez 2023-02-12 2023-02-13 Outpatient MHIE MNA [id number] Memoria 13:15:00 04:59:59 Neurology 01 eb Rodriguez 2023-02-12 2023-02-12 Outpatient SAADIA HaysMISCHER MHMISCHER [id number] 08:15:00 23:59:59 Jeison 01 [place]ayson 2023-02-12 2023-02-12 Outpatient MHIE MHIE [id number] Memoria 08:15:00 08:15:00 01 eb Rodriguez 2023-01-12 2023-01-13 Outpatient MHIE MNA [id number] Memoria 20:15:00 04:59:59 Neurology 00 eb Rodriguez 2023-01-12 2023-01-13 Outpatient MHIE MNA [id number] Memoria 20:15:00 04:59:59 Neurology 00 l Renetta Rodriguez 2023-01-12 2023-01-12 Outpatient STEPHANIE HaysSCHDORINA [id number] 15:15:00 23:59:59 Jeison Airam Galicia 2023-01-12 2023-01-12 Outpatient MHIE MHIE [id number] Memoria 15:15:00 15:15:00 00 l [place] 2023-01-07 2023-01-07 Hospital Radiology [facility] 1.2.840.114 [id number] Univers 08:11:54 23:59:00 Encounter [place]IL 350.1.13.10 [place] [id number] [facility] [address] 2023-01-07 2023-01-07 Outpatient R RADIOLOGY [facility] [id number] Univers 00:00:00 23:59:00 ity [facility] 2022-10-28 2022-10-28 (TEL) STLC STLC [id number] Co mmon 00:00:00 00:00:00 [facility] 2022-08-14 2022-08-14 Transition ELIUD Rice 1.2.840.114 [id number] Univers 00:00:00 00:00:00 of Care [place] ELAM 350.1.13.10 it y of [place] 4.2.7.2.686 [facility] [phone] [facility] [address] 2022-08-14 2022-08-14 (TEL[facility] [id number] Co mmon 00:00:00 00:00:00 [facility] 2022-08-12 2022-08-13 Outpatient X LUCERO [facility] KIP [id number] Univers 10:44:00 16:22:00 EARL ity [facility] 2022-08-12 2022-08-13 Emergency Leonora Ruby [facility] 1.2.840 .114 [id number] Univers 10:44:00 16:22:00 Alexandre Montemayor 350.1.13.10 ity of [place] 4.2.7.2.686 [facility] [id number] [facility] [address] 2022-06-22 2022-06-22 (TEL) STLMLC STLMLC [id number] Co mmon 00:00:00 00:00:00 [facility] 2022-06-19 2022-06-19 (MCR WELL) STLMLC STLMLC [id number] Common 00:00:00 00:00:00 Medicare Spiri t Well[facility] 2022-06-19 2022-06-19 OFFICE STLMLC STLMLC [id number] Co mmon 00:00:00 00:00:00 VISIT EST Spir it PT LEVEL 3 [facility] 2022-06-16 2022-06-16 Orders Doctor MEGAN 1.2.840.114 [id number] Univers 00:00:00 00:00:00 Only Unassigned, ANASTASIA 350.1.13.10 ity of [place] [facility] 4.2.7.2.686 Ty as [id number] [facility] [address] 2022-06-15 2022-06-15 OFFICE STLMLC STLC [id number] Co mmon 00:00:00 00:00:00 VISIT EST Spir it PT LEVEL 3 [facility] 2022-05-21 2022-05-21 Telephone Nila [facility] 1.2.840.114 [id number] Univers 00:00:00 00:00:00 Wallace L HEALTH 350.1.13.10 it y [facility] 4.2.7.2.686 Ty as MANOJ?BLEA [phone] Ne nikita THOMPSON [address] MEDICAL OFFICE [facility] 2022-05-19 2022-05-19 Office Sarbjit [facility] 1.2.840.114 [id number] Univers 08:45:00 09:00:00 Visit Brian S HEALTH 350.1.13.10 it y of [place] 4.2.7.2.686 [place] as MANOJ?BLEA [id number] Ne nikita THOMPSON [address] MEDICAL OFFICE BUILDING 2022-05-19 2022-05-19 Outpatient R SARBJIT [facility] [id number] Univers 08:45:00 08:45:00 BRIAN ity of [facility] 2022-05-19 2022-05-19 Outpatient R SARBJIT [facility] [id number] Univers 08:45:00 08:45:00 BRIAN ity of [facility] 2022-05-16 2022-05-16 Outpatient R RADIOLOGY [facility] [id number] Univers 07:47:58 23:59:00 ity of [facility] 2022-05-16 2022-05-16 Hospital Radiology [facility] 1.2.840.114 [id number] Univers 07:47:58 23:59:00 Encounter [place] 350.1.13.10 ity of [place] [id number] [facility] [address] 2022-05-16 2022-05-16 Outpatient R RADIOLOGY [facility] [id number] Univers 07:47:58 23:59:00 ity of [facility] 2022-05-14 2022-05-14 [facility] Radiology UNIVERSIT 1.2.840.114 [id number] Univers 08:30:00 08:30:00 Encounter Y HEALTH 350.1.13.10 ity of [facility] 4.2.7.2.[place] [id number] [facility] [address] 2022-05-14 2022-05-14 Outpatient R RADIOLOGY [facility] [id number] Univers 00:00:00 00:00:00 ity of [facility] 2022-05-14 2022-05-14 Outpatient R RADIOLOGY [facility] [id number] Univers 00:00:00 00:00:00 ity of [facility] 2022-05-12 2022-05-12 Telephone [facility] 1.2.840.114 [id number] Univers 00:00:00 00:00:00 Wallace L HEALTH 350.1.13.10 it y of [place] 4.2.7.2.686 Ty as MANOJ?BLEA [id number] Ne [address]ard[address] MEDICAL OFFICE BUILDING 2022-05-11 2022-05-11 Outpatient [facility] [id number] Univers 15:14:20 23:59:00 WALLACE ity [facility] 2022-05-11 2022-05-11 Hospital [facility] 1.2.840.114 [id number] Univers 15:14:20 23:59:00 Encounter Wallace CORDERO 350.1.13.10 ity [facility] 4.[place].2.[place] [id number] [address] 2022-05-11 2022-05-11 Office [facility] 1.2.051.825 [id number] Univers 14:45:00 14:45:00 Visit Wallace Edge HEALTH 350.1.13.10 it y of [place] 4.2.7.2.686 Ty as MANOJ?BLEA [id number] Ne nikita THOMPSON [address] [place] [address] OFFICE [facility] 2022-05-11 2022-05-11 Outpatient R [facility] [id number] Univers 14:45:00 14:34:12 WALLACE chinchilla [facility] 2022-05-07 2022-05-07 Telephone [facility] 1.2.840.114 [id number] Univers 00:00:00 00:00:00 Wallace GIBBONS 350.1.13.10 it y of [place] 4.2.7.2.686 [place] as MANOJ?BLEA [phone] Ne nikita KIM[address] OFFICE [facility] 2022-03-05 2022-03-05 (TEL) [facility] [id number] Co mmon 00:00:00 00:00:00 [facility] 2022-03-03 2022-03-03 Outpatient R [facility] [id number] Univers 13:04:32 23:59:00 WALLACE chinchilla [facility] 2022-03-03 2022-03-03 Office [facility] 1.2.840.114 [id number] Univers 13:45:00 14:00:00 Visit Brian S [facility] 350.1.13.10 it y of [place] 4.2.7.2.686 Ty as MANOJ?BLEA [phone] Ne nikita THOMPSON [address] [place] [address] OFFICE [facility] 2022-03-03 2022-03-03 Outpatient Alec SARBJIT [facility] [id number] Univers 13:45:00 13:45:00 BRIAN ity [facility] 2022-02-16 2022-02-16 Outpatient Alec SARBJIT [facility] [id number] Univers 13:27:13 23:59:00 BRIAN ity [facility] 2022-02-16 2022-02-16 Outpatient [facility] [id number] Univers 13:27:13 23:59:00 BRIAN ity [facility] 2022-02-16 2022-02-16 Office [facility] 1.2.840.114 [id number] Univers 13:45:00 14:00:00 Visit Brian S HEALTH 350.1.13.10 it y of [place] 4.2.7.2.686 Ty as MANOJ?BLEA [id number] Ne nikita [address] 2022-02-16 2022-02-16 Outpatient Alec [facility] [id number] Univers 13:45:00 13:45:00 BRIAN ity [facility] 2022-02-16 2022-02-16 Orders Doctor MEGAN 1.2.840.114 [id number] Univers 00:00:00 00:00:00 Only Unassigned, ANASTASIA 350.1.13.10 ity of [place] [facility]PITAL 4.2.7.2.686 Ty as [phone] [address] 2022-02-16 2022-02-16 Telephone [facility] 1.2.422.388 [id number] Univers 00:00:00 00:00:00 Brian S HEALTH 350.1.13.10 it y of [place] 4.2.7.2.686 Ty as MANOJ?BLEA [phone] Ne nikita [address] 2022-02-05 2022-02-05 Orders Doctor MEGAN 1.2.840.114 [id number] Univers 00:00:00 00:00:00 Only Unassigned, ANASTASIA 350.1.13.10 ity of [place] HOSPITAL 4.2.7.2.686 Ty as [phone] [address] 2022-02-04 2022-02-04 OFFICE STLMLC STLMLC [id number] Co mmon 00:00:00 00:00:00 VISIT EST Spir it PT LEVEL 3 - [facility] 2022-01-19 2022-01-19 (TEL) STLMLC STLMLC [id number] Co mmon 00:00:00 00:00:00 [facility] 2022-01-05 2022-01-05 OFFICE STLMLC STLMLC [id number] Co mmon 00:00:00 00:00:00 VISIT EST Spir it PT LEVEL 3 - [facility] 2021-12-22 2021-12-22 OFFICE STLMLC STLMLC [id number] Co mmon 00:00:00 00:00:00 VISIT Spirit ESTAB PT - [facility] LEVEL 4 [facility] 2021-11-20 2021-11-20 (TEL) STLMLC STLMLC [id number] Co mmon 00:00:00 00:00:00 [facility] 2021-10-21 2021-10-21 (TEL) STLMLC STLMLC [id number] Co mmon 00:00:00 00:00:00 [facility] 2021-10-02 2021-10-02 (TEL) STLMLC STLMLC [id number] Co mmon 00:00:00 00:00:00 [facility] 2021-09-26 2021-09-26 Day nullFl[facility] [id number] Memoria 14:19:00 19:21:00 Surgery r Michael 02 [facility] 2021-09-26 2021-09-26 Day nullFlavo [facility] [id number] Memoria 14:19:00 19:21:00 Surgery r [place] 02 [facility] 2021-09-26 2021-09-26 Outpatient CURT Nash [id number] 08:19:00 13:21:00 [place] 2021-09-26 2021-09-26 Outpatient LORI NASH MHBL [id number] MHHERON 08:19:00 13:21:00 [place] 2021-09-12 2021-09-12 (TEL) STLMLC STLMLC [id number] Co mmon 00:00:00 00:00:00 [facility] 2021-09-08 2021-09-08 (TEL) STLMLC STLC [id number] Co mmon 00:00:00 00:00:00 [facility] 2021-09-02 2021-09-02 Outpatient [facility] OPH [id number] Univers 06:24:00 09:17:00 CHE chinchilla [facility] 2021-09-02 2021-09-02 [facility] 1.2.840.114 [id number] Univers 06:24:00 09:17:00 Encounter Che CORDERO 350.1.13.10 ity of [place].2.[place] SUR[place]ICAL [id number] [facility] [address] 2021-09-02 2021-09-02 [facility] 1.2.438.003 [id number] Univers 07:30:00 08:31:00 Che CORDERO 350.1.13.10 ity [facility] 4.2.[place]ICAL [id number] [facility] [address] 2021-09-01 2021-09-01 Outpatient R [facility] [id number] Univers 09:45:00 09:45:00 CHE chinchilla [facility] 2021-09-01 2021-09-01 Laboratory Only, Adc Test [facility] 1.2.840. 114 [id number] Univers 08:58:02 09:13:02 Only Che Bahyt [place] 350.1.13. 10 ity [facility] [place].2.[place].2.[place] [id number] [facility] [address] 2021-09-01 2021-09-01 Orders Doctor GUZMAN 1.2.840.114 [id number] Univers 00:00:00 00:00:00 Only Unassigned, ANASTASIA 350.1.13.10 ity of [place] [facility] 4.2.7.2.686 Ty as [id number] [address] 2021-09-01 2021-09-01 (TEL) STLMLC STLMLC [id number] Co mmon 00:00:00 00:00:00 [facility] 2021-08-26 2021-08-26 OFFICE STLMLC STLMLC [id number] Co mmon 00:00:00 00:00:00 VISIT EST Spir it PT LEVEL 3 - [facility] 2021-08-19 2021-08-19 (TEL) STLMLC STLMLC [id number] Co mmon 00:00:00 00:00:00 [facility] 2021-08-13 2021-08-13 Outpatient R SARBJIT [facility] [id number] Univers 13:15:00 13:15:00 BRIAN ity [facility] 2021-08-13 2021-08-13 Office [facility] 1.2.840.114 [id number] Univers 12:47:28 13:02:28 Visit [facility] [place] 350.1.13.10 it y of [place] 4.2.7.2.686 Ty as MANOJ?BLEA [id number] Ne dical [address] MEDICAL OFFICE BUILDING 2021-08-13 2021-08-13 Telephone [facility] 1.2.840.114 [id number] Univers 00:00:00 00:00:00 [employer] 350.1.13.10 it y of SURGICAL 4.2.7.2.686 Ty as SPECIALTI [phone] Ne dical [address] 2021-07-29 2021-07-29 (TEL) STLMLC STLMLC [id number] Co mmon 00:00:00 00:00:00 [facility] 2021-07-25 2021-07-25 (TEL) STLMLC STLMLC [id number] Co mmon 00:00:00 00:00:00 [facility] 2021-07-21 2021-07-21 Hospital [facility] 1.2.840.114 [id number] Univers 13:35:00 23:59:00 Encounter [employer] 350.1.13.[address] [facility] 4.2.7.2.686 Ty as Manoj?Blea [phone] Ne nikita thompson [address] [facility] Office [facility] 2021-07-21 2021-07-21 Outpatient [facility] [id number] Univers 13:35:00 23:59:00 WALLACE saleem [facility] 2021-07-21 2021-07-21 Outpatient Alec [facility] [id number] Univers 13:30:00 14:45:07 WALLACE amor [facility] 2021-07-21 2021-07-21 Office [facility] 1.2.046.652 [id number] Univers 13:00:10 14:45:07 Visit [facility] 350.1.13.10 it y of [place] 4.2.7.2.686 Ty as MANOJ?BLEA [phone] Ne nikita KIM [address] [facility] OFFICE [facility] 2021-07-21 2021-07-21 Outpatient Alec [facility] [id number] Univers 13:30:00 13:30:00 [facility] 2021-07-21 2021-07-21 (TEL) STLMLC STLMLC [id number] Co mmon 00:00:00 00:00:00 [facility] 2021-07-11 2021-07-11 (TEL) STLMLC STLMLC [id number] Co mmon 00:00:00 00:00:00 [facility] 2021-07-11 2021-07-11 OFFICE STLMLC STLMLC [id number] Co mmon 00:00:00 00:00:00 VISIT [facility] PT - CHI LEVEL 1 [facility] 2021-07-07 2021-07-07 (TEL) STLMLC STLMLC [id number] Co mmon 00:00:00 00:00:00 [facility] 2021-06-29 2021-06-29 (TEL) STLMLC STLMLC [id number] Co mmon 00:00:00 00:00:00 [facility] 2021-06-24 2021-06-24 OFFICE STLMLC STLMLC [id number] Co mmon 00:00:00 00:00:00 VISIT [facility] PT - [facility] 4 [facility] 2021-06-13 2021-06-13 Emergency [facility] 1.2.840.114 [id number] Univers 14:19:00 18:37:00 Shannon Cordero 350.1.13.10 [facility] 4.2.7.2.686 [facility] [id number] [facility] [address] 2021-06-06 2021-06-06 Outpatient STLMLC STLMLC [id number] Common 00:00:00 00:00:00 [facility] 2021-05-05 2021-05-05 Outpatient STLMLC STLMLC [id number] Common 00:00:00 00:00:00 [facility] 2021-04-30 2021-04-30 Outpatient STLMLC STLMLC [id number] Common 00:00:00 00:00:00 [facility] 2021-04-30 2021-04-30 Outpatient STLMLC STLMLC [id number] Common 00:00:00 00:00:00 [facility] 2021-04-25 2021-04-25 Outpatient STLMLC STLMLC [id number] Common 00:00:00 00:00:00 [facility] 2021-04-03 2021-04-03 Outpatient STLMLC STLMLC [id number] Common 00:00:00 00:00:00 [facility] 2021-03-25 2021-03-25 OFFICE STLMLC STLMLC [id number] Co mmon 00:00:00 00:00:00 VISIT [facility] PT [address] 2021-01-24 2021-01-24 Outpatient STLMLC STLMLC [id number] Common 00:00:00 00:00:00 [facility] 2021-01-17 2021-01-17 Outpatient STLMLC STLMLC [id number] Common 00:00:00 00:00:00 [facility] 2021-01-132021-01-13 Outpatient STLMLC STLMLC [id number] Common 00:00:00 00:00:00 [facility] 2021-01-10 2021-01-10 Outpatient STLMLC STLMLC [id number] Common 00:00:00 00:00:00 [facility] 2020-12-31 2020-12-31 Outpatient STLMLC STLMLC [id number] Common 00:00:00 00:00:00 [facility] 2020-12-25 2020-12-25 Outpatient [facility] [id number] Univers 13:45:00 13:45:00 [facility] 2020-12-25 2020-12-25 Office [facility] 1.2.572.639 [id number] 12:51:24 13:25:03 Visit [facility] 350.1.13.10 Surgical 4.2.7.2.686 [facility] [phone] [address] 2020-12-23 2020-12-23 Outpatient [facility] [id number] Univers 13:45:00 13:45:00 [facility] 2020-12-23 2020-12-23 Outpatient STLMLC STLMLC [id number] Common 00:00:00 00:00:00 [facility] 2020-12-21 2020-12-21 Outpatient STLMLC STLMLC [id number] Common 00:00:00 00:00:00 [facility] 2020-12-19 2020-12-19 Outpatient STLMLC STLMLC [id number] Common 00:00:00 00:00:00 [facility] 2020-12-17 2020-12-17 Outpatient STLMLC STLMLC [id number] Common 00:00:00 00:00:00 [facility] 2020-12-17 2020-12-17 Outpatient STLMLC STLMLC [id number] Common 00:00:00 00:00:00 [facility] 2020 2020 Outpatient STLMLC STLMLC [id number] Common 00:00:00 00:00:00 [facility] 2020-12-09 2020-12-09 Outpatient STLMLC STLMLC [id number] Common 00:00:00 00:00:00 [facility] 2020-11-07 2020-11-07 Outpatient STLMLC STLMLC [id number] Common 00:00:00 00:00:00 [facility] 2020-11-04 2020-11-04 Outpatient STLMLC STLMLC [id number] Common 00:00:00 00:00:00 [facility] 2020-11-04 2020-11-04 Outpatient STLMLC STLMLC [id number] Common 00:00:00 00:00:00 [facility] 2020-10-15 2020-10-15 Outpatient SAAD [facility] [id number] [facility] 07:11:00 12:00:00 [place] 2020-09-09 2020-09-09 Outpatient STLMLC STLMLC [id number] Common 00:00:00 00:00:00 [facility] 2020-08-14 2020-08-14 Outpatient Young_J MMG MMG [id number] 02:37:00 02:37:00 [facility] 2020-07-16 2020-07-16 Outpatient STLMLC STLMLC [id number] Common 00:00:00 00:00:00 [facility] 2020-07-04 2020-07-04 Out[facility] [id number] Univers 08:00:00 08:00:00 WALLACE [facility] 2020-05-06 2020-05-06 [facility] [id number] Common 10:52:00 10:52:00 [facility] Family [facility] 2020-04-15 2020-04-15 Outpatient Alec SCHAFFER [facility] [id number] Univers 15:45:00 15:45:00 BRIAN [facility] 2020-04-11 2020-04-11 Outpatient Alec DOTSON [facility] [id number] Univers 15:30:00 15:30:00 WALLACE chinchilla [facility] 2020-04-10 2020-04-10 Outpatient [facility] [id number] Common 13:19:00 13:19:[address] [facility] 2020-04-08 2020-04-08 Outpatient [facility] [id number] Common 11:08:00 11:08:[address] [facility] 2020-04-05 2020-04-05 Outpatient [facility] [id number] Common 18:34:00 18:34:[address] t [facility] [address] [facility] 2020-03-07 2020-03-07 Outpatient Alec DOTSON [facility] [id number] Univers 15:00:00 15:00:00 [facility] 2020-01-09 2020-01-09 Out[facility] [id number] Common 14:23:00 14:23:[address] [facility] 2020-01-08 2020-01-08 Outpatient [facility] [id number] Common 08:00:00 08:00:[address] [facility] 2019-11-22 2019-11-22 Outpatient [facility] [id number] Common 19:45:00 19:45:[address] [facility] 2019-11-08 2019-11-08 [id number] Common 09:12:00 09:12:[address] [facility] 2019-11-07 2019-11-07 [id number] Common 08:17:00 08:17:[address] [facility] 2019-10-19 2019-10-19 [id number] Common 15:57:00 15:57:[address] [facility] 2019-10-18 2019-10-18 [id number] Common 09:24:00 09:24:00 t [facility] [address] [facility] 2019-10-17 2019-10-17 [id number] Common 09:00:00 09:00:00 t [facility] [address] [facility] 2019-10-11 2019-10-11 Outpatient O [facility] [id number] 15:30:52 15:30:00 [facility] 2019-10-09 2019-10-09 [facility] [id number] Common 10:27:00 10:27:00 t [facility] [address] [facility] 2019-10-09 2019-10-09 [id number] Common 09:00:00 09:00:00 t [facility] [address] [facility] 2018-08-08 2018-08-08 Saravanan [facility] [place] - [id number] M atagor 00:00:00 00:00:00 Young, DO: [facility] [address] - [place] [address], [facility] [id number] , Ph. [phone] 2018-08-04 2018-08-04 Jose Noe [facility] [place] - [id number] M atagor 00:00:00 00:00:00 MD Bobbi: [facility] [address] [place] [address] 1, [place] [phone] , Ph. 2018-07-07 2018-07-07 Jose Noe [facility] [place] - [id number] M atagor 00:00:00 00:00:00 MD Bobbi: [facility] [address] [place] [address] 1, [place] [phone] , Ph. Results Test Description Test Time Test Comments Results Result Comments Source Transthoracic echo (TTE) 2022-08-13 22:32:11 Test Item Value Reference Range Interpretation Comme nts Height (test code = 7263330025) in Weight (test code = 0180184628) lbs Systolic BP (test code = 9238587347) mmHg Diastolic BP (test code = 6592051411) mmHg Heart Rate (test code = 7766333658) bpm BSA (test code = 7910260662) 2.06 m2 Ao root diam (test code = 0011564983) 4.10 cm Aortic root (test code = 9941874294) 4.1 cm Ao root annulus (test code = 4.1 cm 7179992307) LVOT diameter (test code = 1636707647) 2.13 cm LVOT area (test code = 9685925028) 3.60 cm2 LA size (test code = 3294908785) 2.7 cm LAV(MOD-sp4) (test code = 9716560942) 46.70 mL E wave decelartion time (test code = 0.17 s 0166306776) MV stenosis pressure 1/2 time (test 51.2 ms code = 3457096303) MV Peak A Bobby (test code = 5109841931) 65.7 cm/s MV Peak E Bobby (test code = 9630144199) 52.5 cm/s E/A ratio (test code = 0343103729) ratio MV Prop V (test code = 2681845207) 58.90 cm/s MV E/e' septal (test code = 8.6 cm/s 9334630774) Tapse (test code = 2621785783) 2.07 cm LVOT stroke volume (test code = 56.50 cm3 7483595550) LVOT peak bobby (test code = 9294560934) 83.0 cm/s LVOT mn grad (test code = 5287765946) mmHg AV LVOT peak gradient (test code = mmHg 7477043571) LVOT peak VTI (test code = 9860371815) 15.9 cm LV V1 mean (test code = 2635330087) 57.80 cm/s Aortic valve mean velocity (test code 86.0 cm/s = 9256168045) Ao peak bobby (test code = 6892325874) 113.0 cm/s Ao VTI (test code = 5758758213) 21.8 cm AV area by cont VTI (test code = 2.6 cm2 4422271773) AV area peak bobby (test code = 2.6 cm2 1439085612) Ao max PG (test code = 2518810534) 5.10 mm[Hg] AV peak gradient (test code = mmHg 4577421006) AV valve area (test code = 0209807910) 2.60 cm2 AV mean gradient (test code = mmHg 1393417214) LVIDD (test code = 6199755311) 4.80 cm Left Ventricular End Diastolic Volume 109.8 mL by Teichholz Method (test code = 5102634) IVS (test code = 8031893646) 1.03 cm Interventricular Septum Diastolic 1.03 cm Thickness by 2D (test code = 7934247) LVPWD (test code = 2209047010) 1.04 cm PW (test code = 1218952853) 1.04 cm 0.6-1.1 EF(Teich) (test code = 9636828794) 64.10 % LVIDS (test code = 1949024666) 3.20 cm Left Ventricular End Systolic Volume 39.4 mL by Teichholz Method (test code = 9955492) FS (test code = 3913894276) 35 % EF - 2D (test code = 02509117) 64.10 % Radiology Study observation (narrative) (test code = 54523-4) SOFIYA (test code = SOFIYA) ?Left?Ventricle: Left [...] mL of Lumason ultrasound enhancing agent used. [facility] GLUCOSE (AUTOMATED)2022-08-13 18:19:00 Test Item Value Reference Range Interpretation Comments POCT GLU (test code = 5178133315) 196 mg/dL 70-110 H Lab Interpretation (test code = Abnormal 07713-9) [facility] GLUCOSE (AUTOMATED)2022-08-13 13:59:31 Test Item Value Reference Range Interpretation Comments POCT GLU (test code = 4124629011) 146 mg/dL 70-110 H Lab Interpretation (test code = Abnormal 50405-0) [facility] GLUCOSE (AUTOMATED)2022-08-13 01:25:38 Test Item Value Reference Range Interpretation Comments POCT GLU (test code = 5327865045) 102 mg/dL 70-110 Lab Interpretation (test code = Normal 81442-1) [id number] 19:44:37 Test Item Value Reference Interpretation Comments Range TROPONIN I (test 0.004 ng/mL See_Comment [Automated code = 0708739141) message] The system which generated this result [...] biotin. Lab Interpretation Normal (test code = 16717-1) [facility] [id number] 19:07:00 Test Item Value Reference Range Interpretation Comments Hgb A1C (test code = Hgb A1C) 6.4 [facility] [id number] 19:07:00 Test Item Value Reference Range Interpretation Comments Glucose Lvl (test code = Glucose Lvl) 153 70-99 [facility] [id number] 19:07:00 Test Item Value Reference Range Interpretation Comments BUN (test code = BUN) 18 7-22 [facility] [id number] 19:07:00 Test Item Value Reference Range Interpretation Comments Creatinine Lvl (test code = Creatinine 1.44 0.50-1.40 Lvl) [facility] [id number] 19:07:00 Test Item Value Reference Range Interpretation Comments Sodium Lvl (test code = Sodium Lvl) 132 135-145 [facility] [id number] 19:07:00 Test Item Value Reference Range Interpretation Comments Potassium Lvl (test code = Potassium 4.8 3.5-5.1 Lvl) [facility] [id number] 19:07:00 Test Item Value Reference Range Interpretation Comments Chloride Lvl (test code = Chloride Lvl) 99 95-109 [facility] [id number] 19:07:00 Test Item Value Reference Range Interpretation Comments CO2 (test code = CO2) 27 24-32 [facility] [id number] 19:07:00 Test Item Value Reference Range Interpretation Comments Calcium Lvl (test code = Calcium Lvl) 9.7 8.5-10.5 [facility] [id number] 19:07:00 Test Item Value Reference Range Interpretation Comments AGAP (test code = AGAP) 10.8 10.0-20.0 [facility] [id number] 19:07:00 Test Item Value Reference Range Interpretation Comments eGFR (test code = eGFR) 52 [facility]LopekpbCCXKOJLELJ5452-59-10 19:07:00 Test Item Value Reference Range Interpretation Comments Segs (test code = Segs) 57.5 45.0-75.0 [facility]aZgguvgmVRCOVJBPZY3627-81-00 19:07:00 Test Item Value Reference Range Interpretation Comments Lymphocytes (test code = Lymphocytes) 28.0 20.0-40.0 [facility]aFxclabcZNXIHUAPYH9216-01-48 19:07:00 Test Item Value Reference Range Interpretation Comments Monocytes (test code = Monocytes) 9.6 2.0-12.0 [facility]aUwjrlrjPSHETXUKIW4719-42-91 19:07:00 Test Item Value Reference Range Interpretation Comments Eosinophils (test code = 4.4 See_Comment [A utomated message] The Eosinophils) system which ge nerated this result tra nsmitted reference range : <=4.0. The reference r glenn was not used to int erpret this result as normal/abnormal . [facility]aQnhpwulSZWIPZZUWP8523-91-64 19:07:00 Test Item Value Reference Range Interpretation Comments Basophils (test code = 0.5 See_Comment [Aut omated message] The Basophils) system which ge nerated this result tra nsmitted reference range : <=1.0. The reference r glenn was not used to int erpret this result as normal/abnormal . [facility]aCpxvglpHVGYCQAXYJ4737-16-33 19:07:00 Test Item Value Reference Range Interpretation Comments Neutrophils # (test code = Neutrophils 3.3 1.5-8.1 #) [facility]aVlejxrvBECTGFGDVN4627-69-48 19:07:00 Test Item Value Reference Range Interpretation Comments Lymphocytes # (test code = Lymphocytes 1.6 1.0-5.5 #) [facility]aVbkcnxbHAEPGAKRZZ8333-43-89 19:07:00 Test Item Value Reference Range Interpretation Comments Monocytes # (test code 0.5 See_Comment [Aut omated message] The = Monocytes #) system which generated this result tra nsmitted reference range : <=0.8. The reference r glenn was not used to int erpret this result as normal/abnormal . [place] 544411-12-29 19:07:00 Test Item Value Reference Range Interpretation Comments Eosinophils # (test code 0.2 See_Comment [A utomated message] The = Eosinophils #) system whic h generated this result tra nsmitted reference range : <=0.5. The reference r glenn was not used to int erpret this result as normal/abnormal . [facility]cosAcwbdhmDUNKJMKLTB7569-15-30 19:07:00 Test Item Value Reference Range Interpretation Comments WBC (test code = WBC) 5.7 3.7-10.4 [facility]XgkyvldFXFPOPRHKW6563-77-36 19:07:00 Test Item Value Reference Range Interpretation Comments RBC (test code = RBC) 4.95 4.70-6.10 [facility]cosVjysghuHPORBZNLBV7161-64-67 19:07:00 Test Item Value Reference Range Interpretation Comments Hgb (test code = Hgb) 14.1 14.0-18.0 [facility] CenterZrpwvngLIEVAUPYHS9869-75-08 19:07:00 Test Item Value Reference Range Interpretation Comments Hct (test code = Hct) 42.2 42.0-54.0 [facility] CenterGltadcxMWLIAZDIDI1330-85-19 19:07:00 Test Item Value Reference Range Interpretation Comments MCV (test code = MCV) 85.3 80.0-94.0 [facility]cosMuhzvqwIUXLILOVKI9682-07-29 19:07:00 Test Item Value Reference Range Interpretation Comments MCH (test code = MCH) 28.6 pg 27.0-31.0 [facility]cosTzkpditMGUWSCBOAM7881-35-51 19:07:00 Test Item Value Reference Range Interpretation Comments MCHC (test code = MCHC) 33.5 32.0-36.0 [facility] CenterDhdcrmkEDKGTYZBZD9184-79-37 19:07:00 Test Item Value Reference Range Interpretation Comments RDW (test code = RDW) 14.7 11.5-14.5 [facility]cosFkehlboRVXAKQGOSR3350-69-42 19:07:00 Test Item Value Reference Range Interpretation Comments Platelet (test code = Platelet) 219 133-450 [facility]cosTjeeuhyAAVAXTWUHX8285-18-90 19:07:00 Test Item Value Reference Range Interpretation Comments MPV (test code = MPV) 8.2 7.4-10.4 [facility] [id number] 19:07:00 Test Item Value Reference Range Interpretation Comments Hgb A1C (test code = Hgb A1C) 6.4 [facility]cosCHE[facility] [id number] 19:07:00 Test Item Value Reference Range Interpretation Comments Glucose Lvl (test code = Glucose Lvl) 153 70-99 [place] 484201-12-29 19:07:00 Test Item Value Reference Range Interpretation Comments BUN (test code = BUN) 18 7-22 [place] 484201-12-29 19:07:00 Test Item Value Reference Range Interpretation Comments Creatinine Lvl (test code = Creatinine 1.44 0.50-1.40 Lvl) [facility]2021-12-29 19:07:00 Test Item Value Reference Range Interpretation Comments Sodium Lvl (test code = Sodium Lvl) 132 135-145 [place] 484201-12-29 19:07:00 Test Item Value Reference Range Interpretation Comments Potassium Lvl (test code = Potassium 4.8 3.5-5.1 Lvl) [place] 484201-12-29 19:07:00 Test Item Value Reference Range Interpretation Comments Chloride Lvl (test code = Chloride Lvl) 99 95-109 [facility]2021-12-29 19:07:00 Test Item Value Reference Range Interpretation Comments CO2 (test code = CO2) 27 24-32 [place] 484201-12-29 19:07:00 Test Item Value Reference Range Interpretation Comments Calcium Lvl (test code = Calcium Lvl) 9.7 8.5-10.5 [facility]2021-12-29 19:07:00 Test Item Value Reference Range Interpretation Comments AGAP (test code = AGAP) 10.8 10.0-20.0 [place] 484201-12-29 19:07:00 Test Item Value Reference Range Interpretation Comments eGFR (test code = eGFR) 52 [place] 544411-12-29 19:07:00 Test Item Value Reference Range Interpretation Comments Segs (test code = Segs) 57.5 45.0-75.0 [place] 544411-12-29 19:07:00 Test Item Value Reference Range Interpretation Comments Lymphocytes (test code = Lymphocytes) 28.0 20.0-40.0 [place] 544411-12-29 19:07:00 Test Item Value Reference Range Interpretation Comments Monocytes (test code = Monocytes) 9.6 2.0-12.0 [place] 544411-12-29 19:07:00 Test Item Value Reference Range Interpretation Comments Eosinophils (test code = 4.4 See_Comment [A utomated message] The Eosinophils) system which ge nerated this result tra nsmitted reference range : <=4.0. The reference r glenn was not used to int erpret this result as normal/abnormal . [place] 544411-12-29 19:07:00 Test Item Value Reference Range Interpretation Comments Basophils (test code = 0.5 See_Comment [Aut omated message] The Basophils) system which ge nerated this result tra nsmitted reference range : <=1.0. The reference r glenn was not used to int erpret this result as normal/abnormal . [place] 544411-12-29 19:07:00 Test Item Value Reference Range Interpretation Comments Neutrophils # (test code = Neutrophils 3.3 1.5-8.1 #) [place] 544411-12-29 19:07:00 Test Item Value Reference Range Interpretation Comments Lymphocytes # (test code = Lymphocytes 1.6 1.0-5.5 #) [place] 544411-12-29 19:07:00 Test Item Value Reference Range Interpretation Comments Monocytes # (test code 0.5 See_Comment [Aut omated message] The = Monocytes #) system which generated this result tra nsmitted reference range : <=0.8. The reference r glenn was not used to int erpret this result as normal/abnormal . [facility]2021-12-29 19:07:00 Test Item Value Reference Range Interpretation Comments Glucose Lvl (test code = Glucose Lvl) 153 70-99 [facility]2021-12-29 19:07:00 Test Item Value Reference Range Interpretation Comments BUN (test code = BUN) 18 7-22 [place] 484201-12-29 19:07:00 Test Item Value Reference Range Interpretation Comments Creatinine Lvl (test code = Creatinine 1.44 0.50-1.40 Lvl) [place] 484201-12-29 19:07:00 Test Item Value Reference Range Interpretation Comments Sodium Lvl (test code = Sodium Lvl) 132 135-145 [facility] [id number] 19:07:00 Test Item Value Reference Range Interpretation Comments Potassium Lvl (test code = Potassium 4.8 3.5-5.1 Lvl) [place] 484201-12-29 19:07:00 Test Item Value Reference Range Interpretation Comments Chloride Lvl (test code = Chloride Lvl) 99 95-109 [place] 484201-12-29 19:07:00 Test Item Value Reference Range Interpretation Comments CO2 (test code = CO2) 27 24-32 [place] 484201-12-29 19:07:00 Test Item Value Reference Range Interpretation Comments Calcium Lvl (test code = Calcium Lvl) 9.7 8.5-10.5 [place] 544411-12-29 19:07:00 Test Item Value Reference Range Interpretation Comments Eosinophils # (test code 0.2 See_Comment [A utomated message] The = Eosinophils #) system whic h generated this result tra nsmitted reference range : <=0.5. The reference r glenn was not used to int erpret this result as normal/abnormal . [place] 484201-12-29 19:07:00 Test Item Value Reference Range Interpretation Comments AGAP (test code = AGAP) 10.8 10.0-20.0 [place] 484201-12-29 19:07:00 Test Item Value Reference Range Interpretation Comments eGFR (test code = eGFR) 52 [place] 544411-12-29 19:07:00 Test Item Value Reference Range Interpretation Comments Segs (test code = Segs) 57.5 45.0-75.0 [place] 544411-12-29 19:07:00 Test Item Value Reference Range Interpretation Comments Lymphocytes (test code = Lymphocytes) 28.0 20.0-40.0 [place] 544411-12-29 19:07:00 Test Item Value Reference Range Interpretation Comments Monocytes (test code = Monocytes) 9.6 2.0-12.0 [place] 544411-12-29 19:07:00 Test Item Value Reference Range Interpretation Comments Eosinophils (test code = 4.4 See_Comment [A utomated message] The Eosinophils) system which ge nerated this result tra nsmitted reference range : <=4.0. The reference r glenn was not used to int erpret this result as normal/abnormal . [place] 544411-12-29 19:07:00 Test Item Value Reference Range Interpretation Comments Basophils (test code = 0.5 See_Comment [Aut omated message] The Basophils) system which ge nerated this result tra nsmitted reference range : <=1.0. The reference r glenn was not used to int erpret this result as normal/abnormal . [facility]NmcshupISGOWKJYKS8178-98-43 19:07:00 Test Item Value Reference Range Interpretation Comments Neutrophils # (test code = Neutrophils 3.3 1.5-8.1 #) [place] 544411-12-29 19:07:00 Test Item Value Reference Range Interpretation Comments Lymphocytes # (test code = Lymphocytes 1.6 1.0-5.5 #) [facility]aPhgmrhwGOGPVASGUM4722-34-86 19:07:00 Test Item Value Reference Range Interpretation Comments Monocytes # (test code 0.5 See_Comment [Aut omated message] The = Monocytes #) system which generated this result tra nsmitted reference range : <=0.8. The reference r glenn was not used to int erpret this result as normal/abnormal . [facility]2021-12-29 19:07:00 Test Item Value Reference Range Interpretation Comments Glucose Lvl (test code = Glucose Lvl) 153 70-99 [facility]aTzpfiiwWFMQBRSLQG1941-13-58 19:07:00 Test Item Value Reference Range Interpretation Comments Eosinophils # (test code 0.2 See_Comment [A utomated message] The = Eosinophils #) system whic h generated this result tra nsmitted reference range : <=0.5. The reference r glenn was not used to int erpret this result as normal/abnormal . [facility]aIgroiizFULOIYLMMC5618-32-99 19:07:00 Test Item Value Reference Range Interpretation Comments WBC (test code = WBC) 5.7 3.7-10.4 [place] 544411-12-29 19:07:00 Test Item Value Reference Range Interpretation Comments RBC (test code = RBC) 4.95 4.70-6.10 [place] 544411-12-29 19:07:00 Test Item Value Reference Range Interpretation Comments Hgb (test code = Hgb) 14.1 14.0-18.0 [place] 544411-12-29 19:07:00 Test Item Value Reference Range Interpretation Comments Hct (test code = Hct) 42.2 42.0-54.0 [facility] CenterXnpqkziFIUNAQGMBN1057-01-64 19:07:00 Test Item Value Reference Range Interpretation Comments MCV (test code = MCV) 85.3 80.0-94.0 [facility] CenterOqktqkfKSOZYZUIXX7957-27-53 19:07:00 Test Item Value Reference Range Interpretation Comments MCH (test code = MCH) 28.6 pg 27.0-31.0 [facility] CenterXbdlgsrWTANKSIXQO9778-94-81 19:07:00 Test Item Value Reference Range Interpretation Comments MCHC (test code = MCHC) 33.5 32.0-36.0 [facility] CenterCrqdpqrZTTVKAEPXL1984-89-05 19:07:00 Test Item Value Reference Range Interpretation Comments RDW (test code = RDW) 14.7 11.5-14.5 [facility] CenterEtzkitlUFCHIIQTHZ4406-61-79 19:07:00 Test Item Value Reference Range Interpretation Comments Platelet (test code = Platelet) 219 133-450 [facility] CenterEcwicqvNFOROIKBSW4764-70-80 19:07:00 Test Item Value Reference Range Interpretation Comments WBC (test code = WBC) 5.7 3.7-10.4 [facility] CenterXegyajqETGSBUIICT0563-24-67 19:07:00 Test Item Value Reference Range Interpretation Comments MPV (test code = MPV) 8.2 7.4-10.4 [facility] ELGHEAIOX2985-83-56 19:07:00 Test Item Value Reference Range Interpretation Comments Hgb A1C (test code = Hgb A1C) 6.4 [facility] CenterTucucnuIOSVNFZSKT1835-36-47 19:07:00 Test Item Value Reference Range Interpretation Comments RBC (test code = RBC) 4.95 4.70-6.10 [facility] CenterOihboipLVPHKWHLMO8699-68-73 19:07:00 Test Item Value Reference Range Interpretation Comments Hgb (test code = Hgb) 14.1 14.0-18.0 [facility] CenterXoehgblNYFRKHUVCI3120-22-87 19:07:00 Test Item Value Reference Range Interpretation Comments Hct (test code = Hct) 42.2 42.0-54.0 [facility] CenterVagfpwlPLAJBMUOQR8170-16-20 19:07:00 Test Item Value Reference Range Interpretation Comments MCV (test code = MCV) 85.3 80.0-94.0 [facility] CenterGjmluirFXBYPSFBQC3063-04-93 19:07:00 Test Item Value Reference Range Interpretation Comments MCH (test code = MCH) 28.6 pg 27.0-31.0 [facility]cosBttzbcyCFGFVYCUHE7137-02-76 19:07:00 Test Item Value Reference Range Interpretation Comments MCHC (test code = MCHC) 33.5 32.0-36.0 [facility]cosOjtqrlgWPIILAFJCG0116-00-29 19:07:00 Test Item Value Reference Range Interpretation Comments RDW (test code = RDW) 14.7 11.5-14.5 [facility] CenterHrowfkzWQTUIAUBJE5385-50-14 19:07:00 Test Item Value Reference Range Interpretation Comments Platelet (test code = Platelet) 219 133-450 [facility] CenterWbewrhkPFAAWUDJDC0861-76-00 19:07:00 Test Item Value Reference Range Interpretation Comments MPV (test code = MPV) 8.2 7.4-10.4 [facility] [id number] 19:07:00 Test Item Value Reference Range Interpretation Comments BUN (test code = BUN) 04-17 [facility] JSRRKJUKB0832-09-58 19:07:00 Test Item Value Reference Range Interpretation Comments Hgb A1C (test code = Hgb A1C) 6.4 [facility] WNCDE5434-00-72 19:07:00 Test Item Value Reference Range Interpretation Comments Creatinine Lvl (test code = Creatinine 1.44 0.50-1.40 Lvl) [facility] HRUUT9098-65-99 19:07:00 Test Item Value Reference Range Interpretation Comments Sodium Lvl (test code = Sodium Lvl) 132 135-145 [facility] BHEAJ2790-71-25 19:07:00 Test Item Value Reference Range Interpretation Comments Glucose Lvl (test code = Glucose Lvl) 153 70-99 [facility] SGJUA9674-85-89 19:07:00 Test Item Value Reference Range Interpretation Comments BUN (test code = BUN) 18 04-17 [facility] QBFPT4571-34-11 19:07:00 Test Item Value Reference Range Interpretation Comments Creatinine Lvl (test code = Creatinine 1.44 0.50-1.40 Lvl) [facility] WJNOB7940-86-22 19:07:00 Test Item Value Reference Range Interpretation Comments Sodium Lvl (test code = Sodium Lvl) 132 135-145 [place] 484201-12-29 19:07:00 Test Item Value Reference Range Interpretation Comments Potassium Lvl (test code = Potassium 4.8 3.5-5.1 Lvl) [place] 484201-12-29 19:07:00 Test Item Value Reference Range Interpretation Comments Potassium Lvl (test code = Potassium 4.8 3.5-5.1 Lvl) [facility]2021-12-29 19:07:00 Test Item Value Reference Range Interpretation Comments Chloride Lvl (test code = Chloride Lvl) 99 95-109 [place] 484201-12-29 19:07:00 Test Item Value Reference Range Interpretation Comments CO2 (test code = CO2) 27 24-32 [place] 484201-12-29 19:07:00 Test Item Value Reference Range Interpretation Comments Calcium Lvl (test code = Calcium Lvl) 9.7 8.5-10.5 [place] 484201-12-29 19:07:00 Test Item Value Reference Range Interpretation Comments AGAP (test code = AGAP) 10.8 10.0-20.0 [place] 484201-12-29 19:07:00 Test Item Value Reference Range Interpretation Comments eGFR (test code = eGFR) 52 [place] 544411-12-29 19:07:00 Test Item Value Reference Range Interpretation Comments Segs (test code = Segs) 57.5 45.0-75.0 [place] 544411-12-29 19:07:00 Test Item Value Reference Range Interpretation Comments Lymphocytes (test code = Lymphocytes) 28.0 20.0-40.0 [place] 544411-12-29 19:07:00 Test Item Value Reference Range Interpretation Comments Monocytes (test code = Monocytes) 9.6 2.0-12.0 [place] 544411-12-29 19:07:00 Test Item Value Reference Range Interpretation Comments Eosinophils (test code = 4.4 See_Comment [A utomated message] The Eosinophils) system which ge nerated this result tra nsmitted reference range : <=4.0. The reference r glenn was not used to int erpret this result as normal/abnormal . [facility]2021-12-29 19:07:00 Test Item Value Reference Range Interpretation Comments Chloride Lvl (test code = Chloride Lvl) 99 95-109 [facility]EdfqpnhDTMLCVAZHG5974-12-82 19:07:00 Test Item Value Reference Range Interpretation Comments Basophils (test code = 0.5 See_Comment [Aut omated message] The Basophils) system which ge nerated this result tra nsmitted reference range : <=1.0. The reference r glenn was not used to int erpret this result as normal/abnormal . [place] 544411-12-29 19:07:00 Test Item Value Reference Range Interpretation Comments Neutrophils # (test code = Neutrophils 3.3 1.5-8.1 #) [place] 544411-12-29 19:07:00 Test Item Value Reference Range Interpretation Comments Lymphocytes # (test code = Lymphocytes 1.6 1.0-5.5 #) [place] 544411-12-29 19:07:00 Test Item Value Reference Range Interpretation Comments Monocytes # (test code 0.5 See_Comment [Aut omated message] The = Monocytes #) system which generated this result tra nsmitted reference range : <=0.8. The reference r glenn was not used to int erpret this result as normal/abnormal . [place] 544411-12-29 19:07:00 Test Item Value Reference Range Interpretation Comments Eosinophils # (test code 0.2 See_Comment [A utomated message] The = Eosinophils #) system whic h generated this result tra nsmitted reference range : <=0.5. The reference r glenn was not used to int erpret this result as normal/abnormal . [facility]akhmgHRXQRLBNWF4948-32-50 19:07:00 Test Item Value Reference Range Interpretation Comments WBC (test code = WBC) 5.7 3.7-10.4 [place] 544411-12-29 19:07:00 Test Item Value Reference Range Interpretation Comments RBC (test code = RBC) 4.95 4.70-6.10 [place] 544411-12-29 19:07:00 Test Item Value Reference Range Interpretation Comments Hgb (test code = Hgb) 14.1 14.0-18.0 [place] 544411-12-29 19:07:00 Test Item Value Reference Range Interpretation Comments Hct (test code = Hct) 42.2 42.0-54.0 [facility]liilzsAFBJUMVSYV8003-66-49 19:07:00 Test Item Value Reference Range Interpretation Comments MCV (test code = MCV) 85.3 80.0-94.0 [facility] [id number] 19:07:00 Test Item Value Reference Range Interpretation Comments CO2 (test code = CO2) 27 24-32 [facility]cosFetafmwVMVPOMBTMK0344-28-73 19:07:00 Test Item Value Reference Range Interpretation Comments MCH (test code = MCH) 28.6 pg 27.0-31.0 [facility]LcnofhgJTBDPFJNVZ1745-09-84 19:07:00 Test Item Value Reference Range Interpretation Comments MCHC (test code = MCHC) 33.5 32.0-36.0 [facility] CenterGdpqcfpWKUOVZDTEN2575-55-92 19:07:00 Test Item Value Reference Range Interpretation Comments RDW (test code = RDW) 14.7 11.5-14.5 [facility] CenterYezbtikYEGRUHCCZP7252-71-17 19:07:00 Test Item Value Reference Range Interpretation Comments Platelet (test code = Platelet) 219 133-450 [facility] CenterEaxebtgKBSQXSMWJN8660-39-08 19:07:00 Test Item Value Reference Range Interpretation Comments MPV (test code = MPV) 8.2 7.4-10.4 [facility] LXLGJKCBY7193-63-45 19:07:00 Test Item Value Reference Range Interpretation Comments Hgb A1C (test code = Hgb A1C) 6.4 [facility] [id number] 19:07:00 Test Item Value Reference Range Interpretation Comments Calcium Lvl (test code = Calcium Lvl) 9.7 8.5-10.5 [facility] [id number] 19:07:00 Test Item Value Reference Range Interpretation Comments AGAP (test code = AGAP) 10.8 10.0-20.0 [facility] [id number] 19:07:00 Test Item Value Reference Range Interpretation Comments eGFR (test code = eGFR) 52 [facility] CenterAikfhqnWDSINXGVYM2496-20-61 19:07:00 Test Item Value Reference Range Interpretation Comments Segs (test code = Segs) 57.5 45.0-75.0 [facility]aPcctoinMYVUNGEPQN3104-02-78 19:07:00 Test Item Value Reference Range Interpretation Comments Lymphocytes (test code = Lymphocytes) 28.0 20.0-40.0 [facility]aQdcbnfpGPJPTIYZZZ6920-87-66 19:07:00 Test Item Value Reference Range Interpretation Comments Monocytes (test code = Monocytes) 9.6 2.0-12.0 [facility]aXccepgrAZFYOOQWQU5763-65-55 19:07:00 Test Item Value Reference Range Interpretation Comments Eosinophils (test code = 4.4 See_Comment [A utomated message] The Eosinophils) system which ge nerated this result tra nsmitted reference range : <=4.0. The reference r glenn was not used to int erpret this result as normal/abnormal . [facility]aQsrgbkmVUOFVFUFWE5283-95-99 19:07:00 Test Item Value Reference Range Interpretation Comments Basophils (test code = 0.5 See_Comment [Aut omated message] The Basophils) system which ge nerated this result tra nsmitted reference range : <=1.0. The reference r glenn was not used to int erpret this result as normal/abnormal . [facility]aUpyclanIIAORVKCXF4898-68-13 19:07:00 Test Item Value Reference Range Interpretation Comments Neutrophils # (test code = Neutrophils 3.3 1.5-8.1 #) [facility]aFwuyganWVOXVXOIPO6764-11-70 19:07:00 Test Item Value Reference Range Interpretation Comments Lymphocytes # (test code = Lymphocytes 1.6 1.0-5.5 #) [facility]aNcwebphPFKAEFGJJQ9344-34-42 19:07:00 Test Item Value Reference Range Interpretation Comments Monocytes # (test code 0.5 See_Comment [Aut omated message] The = Monocytes #) system which generated this result tra nsmitted reference range : <=0.8. The reference r glenn was not used to int erpret this result as normal/abnormal . [facility]aDhjxaetMZZGYGHSJF3968-65-70 19:07:00 Test Item Value Reference Range Interpretation Comments Eosinophils # (test code 0.2 See_Comment [A utomated message] The = Eosinophils #) system whic h generated this result tra nsmitted reference range : <=0.5. The reference r glenn was not used to int erpret this result as normal/abnormal . [place] 544411-12-29 19:07:00 Test Item Value Reference Range Interpretation Comments WBC (test code = WBC) 5.7 3.7-10.4 [facility]aSxahmnlOZSQNBKZVI3273-39-09 19:07:00 Test Item Value Reference Range Interpretation Comments RBC (test code = RBC) 4.95 4.70-6.10 [facility] CenterVyoeyprYDRVGCMGAV1010-98-30 19:07:00 Test Item Value Reference Range Interpretation Comments Hgb (test code = Hgb) 14.1 14.0-18.0 [facility] CenterXezsfivDIDSJQXPLU5108-25-35 19:07:00 Test Item Value Reference Range Interpretation Comments Hct (test code = Hct) 42.2 42.0-54.0 [facility] CenterUbjgbvlZNKAULZPZH9284-78-23 19:07:00 Test Item Value Reference Range Interpretation Comments MCV (test code = MCV) 85.3 80.0-94.0 [facility]aWspeqnuCRPIQHKDJO1694-41-82 19:07:00 Test Item Value Reference Range Interpretation Comments MCH (test code = MCH) 28.6 pg 27.0-31.0 [facility] CenterBcgafnzHGHFEMUWNJ8333-29-23 19:07:00 Test Item Value Reference Range Interpretation Comments MCHC (test code = MCHC) 33.5 32.0-36.0 [facility] CenterTlpcjzyQENRYOSOHS5293-18-91 19:07:00 Test Item Value Reference Range Interpretation Comments RDW (test code = RDW) 14.7 11.5-14.5 [facility]aKybzcdiUOBADQADPH6379-02-34 19:07:00 Test Item Value Reference Range Interpretation Comments Platelet (test code = Platelet) 219 133-450 [facility] CenterSkwxfgaFYCQASFUCG2717-48-31 19:07:00 Test Item Value Reference Range Interpretation Comments MPV (test code = MPV) 8.2 7.4-10.4 [facility] HVQPUGDXD9127-68-95 19:07:00 Test Item Value Reference Range Interpretation Comments Hgb A1C (test code = Hgb A1C) 6.4 [facility] [id number] 19:07:00 Test Item Value Reference Range Interpretation Comments Glucose Lvl (test code = Glucose Lvl) 153 70-99 [facility] [id number] 19:07:00 Test Item Value Reference Range Interpretation Comments BUN (test code = BUN) 18 7-22 [place] 484201-12-29 19:07:00 Test Item Value Reference Range Interpretation Comments Creatinine Lvl (test code = Creatinine 1.44 0.50-1.40 Lvl) [place] 484201-12-29 19:07:00 Test Item Value Reference Range Interpretation Comments Sodium Lvl (test code = Sodium Lvl) 132 135-145 [place] 484201-12-29 19:07:00 Test Item Value Reference Range Interpretation Comments Potassium Lvl (test code = Potassium 4.8 3.5-5.1 Lvl) [place] 484201-12-29 19:07:00 Test Item Value Reference Range Interpretation Comments Chloride Lvl (test code = Chloride Lvl) 99 95-109 [place] 484201-12-29 19:07:00 Test Item Value Reference Range Interpretation Comments CO2 (test code = CO2) 27 24-32 [place] 484201-12-29 19:07:00 Test Item Value Reference Range Interpretation Comments Calcium Lvl (test code = Calcium Lvl) 9.7 8.5-10.5 [facility]2021-12-29 19:07:00 Test Item Value Reference Range Interpretation Comments AGAP (test code = AGAP) 10.8 10.0-20.0 [place] 484201-12-29 19:07:00 Test Item Value Reference Range Interpretation Comments eGFR (test code = eGFR) 52 [place] 544411-12-29 19:07:00 Test Item Value Reference Range Interpretation Comments Segs (test code = Segs) 57.5 45.0-75.0 [place] 544411-12-29 19:07:00 Test Item Value Reference Range Interpretation Comments Lymphocytes (test code = Lymphocytes) 28.0 20.0-40.0 [place] 544411-12-29 19:07:00 Test Item Value Reference Range Interpretation Comments Monocytes (test code = Monocytes) 9.6 2.0-12.0 [place] 544411-12-29 19:07:00 Test Item Value Reference Range Interpretation Comments Eosinophils (test code = 4.4 See_Comment [A utomated message] The Eosinophils) system which ge nerated this result tra nsmitted reference range : <=4.0. The reference r glenn was not used to int erpret this result as normal/abnormal . [facility]aFyexinmMJQBDOUYKB7422-03-48 19:07:00 Test Item Value Reference Range Interpretation Comments Basophils (test code = 0.5 See_Comment [Aut omated message] The Basophils) system which ge nerated this result tra nsmitted reference range : <=1.0. The reference r glenn was not used to int erpret this result as normal/abnormal . [facility]aRdntipcVBQCDXGSYQ0913-56-41 19:07:00 Test Item Value Reference Range Interpretation Comments Neutrophils # (test code = Neutrophils 3.3 1.5-8.1 #) [facility]aYcgnbsrUPDTCDGGML7467-02-52 19:07:00 Test Item Value Reference Range Interpretation Comments Lymphocytes # (test code = Lymphocytes 1.6 1.0-5.5 #) [facility]aRhtoebnCMKJUNLZMG2685-55-37 19:07:00 Test Item Value Reference Range Interpretation Comments Monocytes # (test code 0.5 See_Comment [Aut omated message] The = Monocytes #) system which generated this result tra nsmitted reference range : <=0.8. The reference r glenn was not used to int erpret this result as normal/abnormal . [facility]aJuadpzjOQRZVWRPWG6880-47-12 19:07:00 Test Item Value Reference Range Interpretation Comments Eosinophils # (test code 0.2 See_Comment [A utomated message] The = Eosinophils #) system whic h generated this result tra nsmitted reference range : <=0.5. The reference r glenn was not used to int erpret this result as normal/abnormal . [facility]aAanbiqkBQLXJDCVMD7114-15-87 19:07:00 Test Item Value Reference Range Interpretation Comments WBC (test code = WBC) 5.7 3.7-10.4 [facility]aEcqfyegHOEXOGLHYJ5083-58-61 19:07:00 Test Item Value Reference Range Interpretation Comments RBC (test code = RBC) 4.95 4.70-6.10 [facility]aJanjxasYRSGTSHDPA2397-54-31 19:07:00 Test Item Value Reference Range Interpretation Comments Hgb (test code = Hgb) 14.1 14.0-18.0 [facility]aHsocsllTWSSNOUNGP0478-32-74 19:07:00 Test Item Value Reference Range Interpretation Comments Hct (test code = Hct) 42.2 42.0-54.0 [facility]cosOfaexpzUHVIMPGETY0505-30-90 19:07:00 Test Item Value Reference Range Interpretation Comments MCV (test code = MCV) 85.3 80.0-94.0 [facility]cosJrrtfzjIYMYKFLZPC9442-92-78 19:07:00 Test Item Value Reference Range Interpretation Comments MCH (test code = MCH) 28.6 pg 27.0-31.0 [facility]cosQrxsbhcVZTSRSMQOM1465-80-07 19:07:00 Test Item Value Reference Range Interpretation Comments MCHC (test code = MCHC) 33.5 32.0-36.0 [facility] CenterNddeslaMCUDRLMYCV3025-74-88 19:07:00 Test Item Value Reference Range Interpretation Comments RDW (test code = RDW) 14.7 11.5-14.5 [facility] CenterEhwvfxhQZJYHAUZEX5866-66-64 19:07:00 Test Item Value Reference Range Interpretation Comments Platelet (test code = Platelet) 219 133-450 [facility] CenterLvdxyavDMFQLPWCSR0830-11-53 19:07:00 Test Item Value Reference Range Interpretation Comments MPV (test code = MPV) 8.2 7.4-10.4 [facility] [id number] 19:07:00 Test Item Value Reference Range Interpretation Comments Hgb A1C (test code = Hgb A1C) 6.4 [facility]cos[facility] [id number] 19:07:00 Test Item Value Reference Range Interpretation Comments Glucose Lvl (test code = Glucose Lvl) 153 70-99 [facility] JSDFJ4349-45-82 19:07:00 Test Item Value Reference Range Interpretation Comments BUN (test code = BUN) 18 7-22 [facility] [id number] 19:07:00 Test Item Value Reference Range Interpretation Comments Creatinine Lvl (test code = Creatinine 1.44 0.50-1.40 Lvl) [facility] [id number] 19:07:00 Test Item Value Reference Range Interpretation Comments Sodium Lvl (test code = Sodium Lvl) 132 135-145 [facility] [id number] 19:07:00 Test Item Value Reference Range Interpretation Comments Potassium Lvl (test code = Potassium 4.8 3.5-5.1 Lvl) [place] 484201-12-29 19:07:00 Test Item Value Reference Range Interpretation Comments Chloride Lvl (test code = Chloride Lvl) 99 95-109 [place] 484201-12-29 19:07:00 Test Item Value Reference Range Interpretation Comments CO2 (test code = CO2) 27 24-32 [place] 484201-12-29 19:07:00 Test Item Value Reference Range Interpretation Comments Calcium Lvl (test code = Calcium Lvl) 9.7 8.5-10.5 [place] 484201-12-29 19:07:00 Test Item Value Reference Range Interpretation Comments AGAP (test code = AGAP) 10.8 10.0-20.0 [place] 484201-12-29 19:07:00 Test Item Value Reference Range Interpretation Comments eGFR (test code = eGFR) 52 [place] 544411-12-29 19:07:00 Test Item Value Reference Range Interpretation Comments Segs (test code = Segs) 57.5 45.0-75.0 [place] 544411-12-29 19:07:00 Test Item Value Reference Range Interpretation Comments Lymphocytes (test code = Lymphocytes) 28.0 20.0-40.0 [place] 544411-12-29 19:07:00 Test Item Value Reference Range Interpretation Comments Monocytes (test code = Monocytes) 9.6 2.0-12.0 [place] 544411-12-29 19:07:00 Test Item Value Reference Range Interpretation Comments Eosinophils (test code = 4.4 See_Comment [A utomated message] The Eosinophils) system which ge nerated this result tra nsmitted reference range : <=4.0. The reference r glenn was not used to int erpret this result as normal/abnormal . [place] 544411-12-29 19:07:00 Test Item Value Reference Range Interpretation Comments Basophils (test code = 0.5 See_Comment [Aut omated message] The Basophils) system which ge nerated this result tra nsmitted reference range : <=1.0. The reference r glenn was not used to int erpret this result as normal/abnormal . [place] 544411-12-29 19:07:00 Test Item Value Reference Range Interpretation Comments Neutrophils # (test code = Neutrophils 3.3 1.5-8.1 #) [facility]aQdwcbrrSGOCJQLFOV6425-21-71 19:07:00 Test Item Value Reference Range Interpretation Comments Lymphocytes # (test code = Lymphocytes 1.6 1.0-5.5 #) [facility]aZjieycvNAWVMENKZT3056-98-13 19:07:00 Test Item Value Reference Range Interpretation Comments Monocytes # (test code 0.5 See_Comment [Aut omated message] The = Monocytes #) system which generated this result tra nsmitted reference range : <=0.8. The reference r glenn was not used to int erpret this result as normal/abnormal . [facility]aPledemuBCKSNOOTND4801-16-97 19:07:00 Test Item Value Reference Range Interpretation Comments Eosinophils # (test code 0.2 See_Comment [A utomated message] The = Eosinophils #) system whic h generated this result tra nsmitted reference range : <=0.5. The reference r glenn was not used to int erpret this result as normal/abnormal . [facility]aPnqrkmrBSKOPWOGPZ7114-61-97 19:07:00 Test Item Value Reference Range Interpretation Comments WBC (test code = WBC) 5.7 3.7-10.4 [place] 544411-12-29 19:07:00 Test Item Value Reference Range Interpretation Comments RBC (test code = RBC) 4.95 4.70-6.10 [place] 544411-12-29 19:07:00 Test Item Value Reference Range Interpretation Comments Hgb (test code = Hgb) 14.1 14.0-18.0 [place] 544411-12-29 19:07:00 Test Item Value Reference Range Interpretation Comments Hct (test code = Hct) 42.2 42.0-54.0 [place] 544411-12-29 19:07:00 Test Item Value Reference Range Interpretation Comments MCV (test code = MCV) 85.3 80.0-94.0 [place] 544411-12-29 19:07:00 Test Item Value Reference Range Interpretation Comments MCH (test code = MCH) 28.6 pg 27.0-31.0 [place] 544411-12-29 19:07:00 Test Item Value Reference Range Interpretation Comments MCHC (test code = MCHC) 33.5 32.0-36.0 [facility]aPmqjtuhGDOYBWQPNV1226-43-83 19:07:00 Test Item Value Reference Range Interpretation Comments RDW (test code = RDW) 14.7 11.5-14.5 [facility]aVhbhebsTAZEVCSIJC8858-03-03 19:07:00 Test Item Value Reference Range Interpretation Comments Platelet (test code = Platelet) 219 423-450 [facility]aSnujormUNADBITPAP0652-20-09 19:07:00 Test Item Value Reference Range Interpretation Comments MPV (test code = MPV) 8.2 7.4-10.4 [facility]-COV 2 AntigenSARS-COV 2 Antigen
[2023-03-05 12:10] LABS: Absolute Lymphocytes (CBC) 1.3 K/uL (0.7-4.9); Hematocrit 38.9 % (39.6-49.0); MCV 83.3 fL (80-100); MPV 7.4 fL (7.6-11.3); RBC Red Blood Cell Count 4.67 M/uL (4.33-5.43)
[2023-03-05 12:12] LABS: Protime INR 1.13
[2023-03-05] MEDS ORDERED: MORPHINE 4 MG/ML SYR ONE (12:28)
[2023-03-05] MEDS ORDERED: ONDANSETRON 4 MG/2 ML VIAL ONE (12:28)
[2023-03-05 12:30] LABS: Albumin 3.7 g/dL (3.4-5.0); Bilirubin Direct 0.2 mg/dL (0-0.2); Bilirubin Indirect, Calculated 0.2 mg/dL (0.2-0.8); Bilirubin Total 0.4 mg/dL (0.2-1.0); Magnesium 2.2 mg/dL (1.6-2.4)
[2023-03-05] MEDS ORDERED: DIAZEPAM 10 MG/2 ML INJ SYRINGE ONE (12:55)
--- NOTE | 2023-03-05 13:42 | RAD REPORT ---
EXAM DESCRIPTION: CT - Angio Aorta For Dissection - 03/05/2023 1:17 pm CLINICAL HISTORY: . Chest and abd pain COMPARISON: November 2022 TECHNIQUE: Computed tomography angiography of the chest, abdomen pelvis were obtained. 130 cc Isovue 370 was administered intravenously. Coronal and sagittal reconstruction were performed. MIP 3D reconstruction was performed All CT scans are performed using dose optimization technique as appropriate and may include automated exposure control or mA/KV adjustment according to patient size. FINDINGS: An aortic dissection is not seen. An aortic aneurysm is not displayed. The celiac, SMA and ZULEIMA are patent . A lung consolidation is not present. A pericardial effusion is not seen. A pleural effusion is not no kaushik. The liver,spleen, pancreas,adrenals and kidneys demonstrate no significant abnormality. There no evidence diverticulitis. Postsurgical changes lumbar spine. Neurostimulator in place. IVC filter IMPRESSION: Negative for an aortic dissection.
--- NOTE | 2023-03-05 13:42 | RAD REPORT ---
EXAM DESCRIPTION: [place] Single View03/05/2023 12:37 pm CLINICAL HISTORY: Chest pain COMPARISON: February 12, 2023 FINDINGS: The lungs appear clear of acute infiltrate. The heart is normal size IMPRESSION: No acute abnormalities displayed
[2023-03-05] MEDS ORDERED: HYDROMORPHONE HCL 1 MG/ML INJ ONE (16:36)
--- NOTE | 2023-03-05 16:43 | EDPHYS ---
Physician Documentation [facility] Name: Moshe Ewing Age: 62 yrs Sex: Male : 1960 Arrival Date: 03/05/2023 Time: 11:02 Bed 17 Private MD: ED Physician Jonh Liang HPI: 03/05 11:40 This 62 yrs old Male presents to ER via EMS with complaints of neck pain. [facility] 11:40 The patient or guardian complains of pain. The symptoms are located diffusely. This is jmm a 62 year old male with a history of dm, hlp, htn, chronic neck pain that presents to the ED with initial complaint of neck pain. Patient called ems. En route patient developed substernal chest pain which he states radiates to his back. . Historical: - Allergies: 11:21 amlodipine; db 11:21 lidocaine patch; db - PMHx: 11:21 Diabetes - NIDDM; DVT; Hypercholesterolemia; Hypertension; Hypothyroidism; db - PSHx: 11:21 back sx; cadriac stent; Cholecystectomy; foot/shoulder SX; L hand SX with plates db placed; R BKA; stimulator R back for legs; - Immunization history:: Adult Immunizations unknown. - Social history:: Smoking status: Patient reports the use of cigarette tobacco products, denies chronic smoking, but will smoke occasionally. ROS: 11:40 Constitutional: Negative for fever, chills, and weight loss, Cardiovascular: Negative jmm for chest pain, palpitations, and edema, Respiratory: Negative for shortness of breath, cough, wheezing, and pleuritic chest pain. 11:40 Neck: Positive for pain with movement. 11:40 Cardiovascular: Positive for chest pain. 11:40 All other systems are negative. Exam: 11:40 Head/Face: atraumatic. Eyes: EOMI, no conjunctival erythema appreciated ENT: Moist jmm Mucus Membranes Neck: Trachea midline, Supple 11:40 Cardiovascular: Regular rate and rhythm. No edema appreciated Respiratory: Normal respirations, no respiratory distress appreciated Abdomen/GI: Non distended Back: Normal ROM Skin: General appearance color normal MS/ Extremity: Moves all extremities, no obvious deformities appreciated, no edema noted to the lower extremities Neuro: Awake and alert Psych: Behavior is normal, Mood is normal, Patient is cooperative and pleasant 11:40 Constitutional: The patient appears alert, awake, anxious. 11:40 Chest/axilla: Inspection: normal, Palpation: is normal. Vital Signs: 11:18 BP 140 / 90; Pulse 70; Resp 18; Temp 98.1(O); Pulse Ox 98% ; Weight 89.81 kg; Height 5 db ft. 9 in. ; 12:15 BP 143 / 86; Pulse 56; Resp 18; Pulse Ox 96% ; db 13:16 BP 143 / 79; Pulse 67; Resp 16; Pulse Ox 97% on R/A; db 14:00 BP 142 / 74; Pulse 73; Resp 16; Pulse Ox 98% on R/A; db 15:00 BP 139 / 83; Pulse 71; Resp 16; Pulse Ox 96% on R/A; db 16:15 BP 147 / 131; Pulse 66; Resp 18; Pulse Ox 98% on R/A; db 17:18 BP 150 / 91; Pulse 73; Resp 16; Pulse Ox 98% on R/A; db 11:18 Body Mass Index 29.24 (89.81 kg, 175.26 cm) db MDM: 11:40 Patient medically screened. [facility] 17:11 Differential diagnosis: Cervical Raiculopathy ACS, angina, dissection, pneumothorax, [facility] pneumonia, meningitis. Data reviewed: vital signs, nurses notes, old medical records, The patient recently had a stress test that was nondiagnostic lab test result(s). Consideration of Admission/Observation Escalation of care including admission/observation considered. I considered the following discharge prescriptions or medication management in the emergency department Medications were administered in the Emergency Department. See MAR. Counseling: I had a detailed discussion with the patient and/or guardian regarding: the historical points, exam findings, and any diagnostic results supporting the discharge/admit diagnosis, radiology results, the need for outpatient follow up, to return to the emergency department if symptoms worsen or persist or if there are any questions or concerns that arise at home. ED course: Patient's pain partially alleviated. Patient mainly complains of his neck pain. Repeat troponin was stable. I do not currently suspect ACS. CT aortogram was negative. Patient advised to follow-up with spine or pain management for further care of his neck pain. Patient otherwise was advised to return to the ED if symptoms worsen.. 03/05 11:49 Order name: Basic Metabolic Panel; Complete Time: 12:41 [facility] 03/05 11:49 Order name: CBC with Diff; Complete Time: 12:19 [facility] 03/05 11:49 Order name: LFT's; Complete Time: 12:41 [facility] 03/05 11:49 Order name: Magnesium; Complete Time: 12:41 [facility] 03/05 11:49 Order name: NT PRO-BNP; Complete Time: 12:41 [facility] 03/05 11:49 Order name: PT-INR; Complete Time: 12:19 [facility] 03/05 11:49 Order name: Troponin HS; Complete Time: 12:41 [facility] 03/05 15:26 Order name: Troponin High Sensitivity; Complete Time: 16:08 [facility] 03/05 11:49 Order name: XRAY Chest (1 view); Complete Time: 13:49 [facility] 03/05 12:52 Order name: CT Aorta for Dissection; Complete Time: 13:49 [facility] 03/05 11:49 Order name: EKG; Complete Time: 11:50 [facility] 03/05 11:49 Order name: Cardiac monitoring; Complete Time: 11:57 [facility] 03/05 11:49 Order name: EKG - Nurse/Tech; Complete Time: 11:57 [facility] 03/05 11:49 Order name: IV Saline Lock; Complete Time: 11:57 [facility] 03/05 11:49 Order name: Labs collected and sent; Complete Time: 11:57 [facility] 03/05 11:49 Order name: O2 Per Protocol; Complete Time: 11:57 [facility] 03/05 11:49 Order name: O2 Sat Monitoring; Complete Time: 11:57 [facility] Administered Medications: 12:28 Drug: Ondansetron IVP 4 mg Route: IVP; Site: right antecubital; db 16:39 Follow up: Response: No adverse reaction db 12:29 Drug: morphine IVP or IV 4 mg Route: IVP; Infused Over: 4 mins; Site: right antecubital;db 16:39 Follow up: Response: No adverse reaction db 12:49 Drug: Diazepam IVP 5 mg Route: IVP; Site: right antecubital; db 16:39 Follow up: Response: No adverse reaction db 16:33 Drug: HYDROmorphone IVP 1 mg Route: IVP; Site: right antecubital; db 17:20 Follow up: Response: No adverse reaction; Pain is decreased db Disposition: 16:18 Co-signature as Attending Physician, Jonh Liang DO I was immediately available on-site ms3 in the Emergency Department for consultation in the care of the patient. Disposition Summary: 03/05/23 16:43 Discharge Ordered Location: Home jm Condition: Stable jm Diagnosis - Chronic Neck Pain jmm - Chest Pain jmm Followup: [facility] - With: Private Physician - When: 2 - 3 days - Reason: Recheck today's complaints, Continuance of care, Re-evaluation by your physician Discharge Instructions: - Discharge Summary Sheet jmm - Nonspecific Chest Pain, Adult jmm Forms: - Medication Reconciliation Form [facility] - Thank You Letter [facility] - Antibiotic Education [facility] - Prescription Opioid Use [facility] Signatures: Dispatcher [employer] Suleiman Rivera PA PA jmm Sims, Marcus, DO DO ms3 Shahnaz Kwon, RN RN db
--- NOTE | 2023-03-05 16:43 | ER ---
Nurse's Notes [facility] Name: Moshe Ewing Age: 62 yrs Sex: Male : 1960 Arrival Date: 03/05/2023 Time: 11:02 Bed 17 Private MD: Diagnosis: Chronic Neck Pain;Chest Pain Presentation: 03/05 11:18 Chief complaint: EMS states: Patient from home complaining of fever, then chest pain db and neck pain. pt took 1Gm of Tylenol prior to arrival. Pt given 1 Nitro sublingual and 4 baby ASA. Glucose 107. Coronavirus screen: Client denies travel out of the [place] in the last 14 days. At this time, the client does not indicate any symptoms associated with coronavirus-19. Ebola Screen: Patient negative for fever greater than or equal to 101.5 degrees Fahrenheit, and additional compatible Ebola Virus Disease symptoms Patient denies exposure to infectious person. Patient denies travel to an Ebola-affected area in the 21 days before illness onset. No symptoms or risks identified at this time. Initial Sepsis Screen: Does the patient meet any 2 criteria? No. Patient's initial sepsis screen is negative. Does the patient have a suspected source of infection? No. Patient's initial sepsis screen is negative. Risk Assessment: Do you want to hurt yourself or someone else? Patient reports no desire to harm self or others. Onset of symptoms was March 05, 2023. 11:18 Method Of Arrival: EMS: [facility] db 11:18 Acuity: MYRIAM 2 db Triage Assessment: 11:21 General: Appears in no apparent distress. comfortable, Behavior is calm, cooperative. db Pain: Complains of pain in chest. Historical: - Allergies: 11:21 amlodipine; db 11:21 lidocaine patch; db - PMHx: 11:21 Diabetes - NIDDM; DVT; Hypercholesterolemia; Hypertension; Hypothyroidism; db - PSHx: 11:21 back sx; cadriac stent; Cholecystectomy; foot/shoulder SX; L hand SX with plates db placed; R BKA; stimulator R back for legs; - Immunization history:: Adult Immunizations unknown. - Social history:: Smoking status: Patient reports the use of cigarette tobacco products, denies chronic smoking, but will smoke occasionally. Screenin:37 [facility] ED Fall Risk Assessment (Adult) History of falling in the last 3 months, db including since admission No falls in past 3 months (0 pts) Confusion or Disorientation No (0 pts) Intoxicated or Sedated No (0 pts) Impaired Gait Yes (1 pt) Mobility Assist Device Used Yes (1 pt) Altered Elimination No (0 pt) Score/Fall Risk Level 0 - 2 = Low Risk Oriented to surroundings, Maintained a safe environment. Abuse screen: Denies threats or abuse. Denies injuries from another. Nutritional screening: No deficits noted. Tuberculosis screening: No symptoms or risk factors identified. Assessment: 11:22 Reassessment: Patient appears in no apparent distress at this time. Patient and/or db family updated on plan of care and expected duration. Pain level reassessed. Patient is alert, oriented x 3, equal unlabored respirations, skin warm/dry/pink. General: Appears in no apparent distress. comfortable, Behavior is calm, cooperative. Neuro: Level of Consciousness is awake, alert, obeys commands, Oriented to person, place, time, situation, Speech is normal. Cardiovascular: Reports chest pain. Respiratory: Airway is patent Respiratory effort is even, unlabored, Respiratory pattern is regular, symmetrical. 14:30 Reassessment: patient given sandwich, crackers and water. Notified Suleiman provider. db 15:30 Reassessment: Patient appears in no apparent distress at this time. Patient and/or db family updated on plan of care and expected duration. Pain level reassessed. Patient is alert, oriented x 3, equal unlabored respirations, skin warm/dry/pink. patient complaining of neck pain. notified Suleiman Provider. Pain: Complains of pain in neck Pain currently is 8 out of 10 on a pain scale. 16:37 Reassessment: Patient appears in no apparent distress at this time. Patient and/or db family updated on plan of care and expected duration. Pain level reassessed. Patient is alert, oriented x 3, equal unlabored respirations, skin warm/dry/pink. patient complaining neck is stiff. See MAR for dilaudid medication administration. General: Appears in no apparent distress. comfortable, Behavior is calm. 17:18 Reassessment: Patient appears in no apparent distress at this time. Patient and/or db family updated on plan of care and expected duration. Pain level reassessed. Patient is alert, oriented x 3, equal unlabored respirations, skin warm/dry/pink. Patient states feeling better. Patient states symptoms have improved. Vital Signs: 11:18 BP 140 / 90; Pulse 70; Resp 18; Temp 98.1(O); Pulse Ox 98% ; Weight 89.81 kg; Height 5 db ft. 9 in. ; 12:15 BP 143 / 86; Pulse 56; Resp 18; Pulse Ox 96% ; db 13:16 BP 143 / 79; Pulse 67; Resp 16; Pulse Ox 97% on R/A; db 14:00 BP 142 / 74; Pulse 73; Resp 16; Pulse Ox 98% on R/A; db 15:00 BP 139 / 83; Pulse 71; Resp 16; Pulse Ox 96% on R/A; db 16:15 BP 147 / 131; Pulse 66; Resp 18; Pulse Ox 98% on R/A; db 17:18 BP 150 / 91; Pulse 73; Resp 16; Pulse Ox 98% on R/A; db 11:18 Body Mass Index 29.24 (89.81 kg, 175.26 cm) db ED Course: 11:05 Patient arrived in ED. ss 11:07 Suleiman Petty PA is PHCP. jmm 11:07 Jonh Liang DO is Attending Physician. m 11:17 Shahnaz Kwon, RN is Primary Nurse. db 11:21 Triage completed. db 11:21 Arm band placed on Patient placed in an exam room. db 11:22 Maintain EMS IV. Dressing intact. Good blood return noted. Site clean \T\ dry. Gauge \T\ db site: 18 G RAC. Flushed. 12:39 XRAY Chest (1 view) In Process Unspecified. EDMS 13:18 CT Aorta for Dissection In Process Unspecified. EDMS 16:38 Patient has correct armband on for positive identification. Bed in low position. Call db light in reach. Side rails up X2. Client placed on continuous cardiac and pulse oximetry monitoring. NIBP monitoring applied. 17:18 No provider procedures requiring assistance completed. IV discontinued, intact, db bleeding controlled, No redness/swelling at site. Administered Medications: 12:28 Drug: Ondansetron IVP 4 mg Route: IVP; Site: right antecubital; db 16:39 Follow up: Response: No adverse reaction db 12:29 Drug: morphine IVP or IV 4 mg Route: IVP; Infused Over: 4 mins; Site: right antecubital;db 16:39 Follow up: Response: No adverse reaction db 12:49 Drug: Diazepam IVP 5 mg Route: IVP; Site: right antecubital; db 16:39 Follow up: Response: No adverse reaction db 16:33 Drug: HYDROmorphone IVP 1 mg Route: IVP; Site: right antecubital; db 17:20 Follow up: Response: No adverse reaction; Pain is decreased db Medication: 17:18 VIS not applicable for this client. db Outcome: 16:43 Discharge ordered by . sourav 17:18 Discharged to home ambulatory. db 17:18 Discharged to home with family. 17:18 Condition: stable 17:18 Discharge instructions given to patient, Instructed on discharge instructions, follow up and referral plans. 17:25 Patient left the ED. db Signatures: Dispatcher [employer] EDSuleiman Rodrigues PA PA jmm Blanchard, Shelby, RN RN Shahnaz Kwon RN RN db
[2023-03-05 17:47] VITALS: TEMP 98.1
[2023-03-05 17:52] VITALS: O2SAT 98
[2023-03-05 17:54] VITALS: BP 150/91
--- NOTE | 2023-03-08 12:11 | EKG ---
Test Date: 2023-03-05 Test Time: 11:50:28 Director Hematology: JIE MEASUREMENT RESULTS: Intervals: Rate: 69 IA: 118 QRSD: 140 QT: 398 QTc: 426 Mary D: P: 12 IA: 118 QRS: 85 T: 55 INTERPRETIVE STATEMENTS: Normal sinus rhythm Right bundle branch block Abnormal ECG Compared to ECG 02/12/2023 15:43:07 No significant changes Electronically Signed On 03-08-23 12:01:41 CDT by Vinny Magallanes
== END 2023-03-05 17:25 | disposition home or self-care (01) ==
LOC: ER 11:02
DX: M54.2 Cervicalgia (principal); R07.9 Chest pain, unspecified; I10 Essential (primary) hypertension; E11.9 Type 2 diabetes mellitus without complications; F17.210 Nicotine dependence, cigarettes, uncomplicated; Z95.818 Presence of other cardiac implants and grafts; Z88.6 Allergy status to analgesic agent; Z88.8 Allergy status to other drugs, medicaments and biological substances
CPT/HCPCS: 93005; 85025; 80048; 36415; 83735; 85610; 80076; 84484 ×2; 83880; 71275; 74175; 71045; 96375; 96374; 99284; Q9967; J3360; J1170; J2405

== ENCOUNTER 2023-03-23 21:36 | Emergency (ER) | payer OTHER ==
--- OUTSIDE RECORDS SUMMARY | 2023-03-23 21:47 | XMS REPORT | Continuity of Care Document ---
:1960 Author Organization [facility] t Address [address] [facility] [address] [place] [address] Care Team Providers Name Role Phone Regina Hodges Primary Care Physician Maira Oliveira Attending Clinician Unavailable Regina Hodges Attending Clinician Unavailable Jeison Hays Attending Clinician Radiology Attending Clinician Unavailable RADIOLOGY Attending Clinician Unavailable Carolina Rice RN Attending Clinician Unavailable EARL GODDARD Attending Clinician Unavailable Leonora Guzman Attending Clinician Alexandre Montemayor MD Attending Clinician Earl Goddard MD Attending Clinician Doctor Unassigned, [place] Attending Clinician Unavailable Wallace Dotson MD Attending Clinician Brian Bright Attending Clinician BRIAN SCHAFFER Attending Clinician Unavailable WALLACE DOTSON Attending Clinician Unavailable Braxton Nash II Attending Clinician BRAXTON NASH Attending Clinician Unavailable CEH BAH Attending Clinician Unavailable Che Bah MD [...] Number Effective Date Expiration Date Janell freitas [facility] D[facility] [id number] 2020 COMP HMO D SNP 00:00:00 [place] [id number] 2020 [place] 00:00:00 [facility] [id number] 2020 Common ADVANTAGE 00:00:00 Spirit - [facility] [id number] [facility] MEDICARE [id number] 2020 COMPLETE CHOICE 00:00:00 [employer] GOLD PLS [id number] 2019 HMO 00:00:00 MEDICARE PART A [id number] 2004 2019 \T\ B 00:00:00 00:00:00 Problems Condition Condition Condition Status Onset Resolution Last Treating Co mments Source Name Details Category Date Date Treatment Clinician Date Coronary Coronary Disease Active 2021-09 Unive rs artery artery 1-17 ity of disease disease 00:00: [place] involving involving 00 [facility] [facility] coronary coronary artery of artery of [place] heart heart without without angina angina pectoris pectoris Generalize Generalize Disease Active 2021-09 U nivers d d 1-17 [place] of abdominal abdominal [place] pain pain 00 [place] Coronary Coronary Disease Active 2021-09 Unive rs artery artery 1-17 ity of disease disease 00:00: [place] involving involving 00 Medi [place] [facility] coronary coronary artery of artery of [place] heart heart without without angina angina pectoris pectoris Chest pain Chest pain Disease Active 2021-09 U evin 1-16 ity of 00:00: [place] 00 Medical Branch SPINAL SPINAL Diagnosis Active 2020-092021-09-26 Me moria CORD CORD 11-24 08:25:00 l STIMULATOR STIMULATOR 00:00: He rmann INSERTION INSERTION 00 Active 09/23/2021 [facility] UNK UNK Diagnosis Active 2020-092021-09-24 Mem oria Active 11-24 12:49:00 l 09/23/2021 00:00: Tera leon [address] Other Other Disease Active 2020-09 Univers age-relate age-relate 11-03 it y of d cataract d cataract [place] of left of left 00 Medical eye eye Branch RADICULOPA RADICULOP Diagnosis Active 2020-10-15 Alex THY, ATHY, 10-04 07:21:00 l LUMBAR LUMBAR 00:00: [place] REGION REGION 00 Active 10/04/2020 [facility] Obesity Obesity Disease Active Univers [...] Medical Branch Impaired Impaired Problem Active 2023-02-19 [place] mobility mobility 04-28 14:16:11 l (finding) (finding) 00:00: Herm adam Active 00 04/28/2011 Problem 02/19/2023 Manuel Adams [facility] [id number] Essential Problem Comm on hypertensi Spirit on - [facility] [id number] [place] [id number] prostatic Spirit hyperplasi - CHI a with [facility] urinary Medical tract Center symptoms [id number] Other Problem Common secondary Spirit acute gout - CHI of left [facility] [id number] Type 2 Problem Common diabetes Spirit mellitus - [facility] unspecifie Center d 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 [id number] Acquired Problem Comm on hypothyroi Spirit dism - [facility] [id number] Frequency Problem Com mon of Spirit micturitio - [facility] n [facility] [id number] Mass in Problem Commo n neck [facility] [id number] History of Problem C ommon right Spirit below knee - CH[facility] am[facility] [id number] Cervical Problem Com mon osteophyte [facility] [id number] [place] [id number] exam [facility] [id number] Chronic Problem 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 polyneurop Medica l [facility], Center without long-term current use of insulin [id number] Benign Problem Common prostatic Spirit hyperplasi - CHI a without [facility] urinary Medical tract Center symptoms [id number] PAD Problem Common (periphera Spirit l artery - CHI disease) [facility] [id number] Mixed Problem Common hyperlipid Spirit emia - [facility] Polyneurop Polyneurop Problem C ommon athy athy Spirit - [facility] Raised Raised Problem Active [place] prostate Prostate da specific Specific Medica l antigen Antigen Group Angina Angina Problem Active 2023-02-19 Brodie douglas (disorder) (disorder) 14:16:11 l Active [place] [facility] Diabetes Problem Active 2023-02-19 Memoria mellitus mellitus 14:16:11 l (disorder) (disorder) He rmann Active Problem [facility]20[facility] Hyperlipid Hyperlipi Problem Active 2023-02-19 [facility] demia 14:16:11 l (disorder) (disorder) He rmann Active Problem 02/19/2023 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 [place] [place] Pain Pain Problem Active 2023-02-19 Memor ia (finding) (finding) 14:16:11 l Active Michael Problem 02/19/[address] [facility] [place] Carpal Carpal Problem Active 2023-02-19 Brodie douglas tunnel tunnel 14:16:11 l syndrome syndrome Tera n (disorder) (disorder) Active Problem 02/19/2023 [facility] Hypothyroi Hypothyro Problem Resolve 2021-09-28 Memoria dism idism d 22:42:20 l (disorder) (disorder) He rmann Resolved Problem 09/28/2021 [place] Allergies, Adverse Reactions, Alerts Allergy Allergy Status [...] Memori a Medicati Medicati l on on Michael Allergie Allergie s s NO KNOWN Drug Active Univers ALLERGIE Class ity of S [facility] amlodipi amlodipi Active CP, SOB, Comm on ne ne Nausea Spirit - [facility] Social History Social Habit Start Date Stop Date Quantity Comments Source Sex Assigned At Common Sp josee - [facility] History of Common Spirit - Tobacco Use [facility] History SDOH Food 2022-08-14 2022-08-14 1 Univers ity of Worry 00:00:00 00:00:00 [place] [facility] History SDOH Food 2022-08-14 2022-08-14 1 Univers ity of Scarcity 00:00:00 00:00:00 [place] [facility] History [facility] 2022-08-14 2022-08-14 2 University o f Transport Med 00:00:00 00:00:00 [facility] al Branch History SDSC 2022-08-14 2022-08-14 2 University o f Transport Non-Med 00:00:00 00:00:00 [facility] edical Branch Alcohol intake 2022-08-13 2022-08-13 0 /d University of 00:00:00 00:00:00 [facility] Exposure to 2022-08-02 2022-08-12 Not sure [facility] SARS-CoV-2 00:00:00 10:42:00 [facility] (event) [place] Tobacco use and 2022-05-19 2022-05-19 Smokeless tobacco Un iversity of exposure 00:00:00 00:00:00 non-user [facility] Social History 2021-09-24 2021[facility]09-24 [facility] 15:[facility]:23 15:29:23 Smoking Status Start Date Stop Date Source Tobacco smoking status [facility] Medications Ordered Filled Start Stop Current Ordering Indication Dosage Frequency Signature Comments Components Source Medication Medication Date Date Medication? Clinician (SIG) Name Name gabapentin Yes 100 mg = 1 M emoria 100 mg oral 5-23 cap, PO, l capsule 16:35: TID, # 90 Roz nn 00 cap, 1 Refill(s), Pharmacy: [facility], 175.26, cm, 02/16/23 11:00:00 CDT, Height, 91.364, kg, 02/16/23 11:00:00 CDT, Weight gabapentin 2023-0 Yes 100 mg = 1 M emoria 100 mg oral 5-23 cap, PO, l capsule 16:35: TID, # 90 Roz nn 00 cap, 1 Refill(s), Pharmacy: [facility] 482, 175.26, cm, 02/16/23 11:00:00 CDT, Height, 91.364, kg, 02/16/23 11:00:00 CDT, Weight ondansetron 2022-0 Yes TAKE 1 Brodie douglas 4 mg oral 5-23 TABLET BY l tablet 16:33: MOUTH [place] 00 EVERY 12 HOURS NEEDED diazepam 5 0 Yes TAKE 1 Memor ia mg oral 5-23 TABLET BY l tablet 16:33: MOUTH Michael 00 EVERY 8 HOURS NEEDED FOR ANXIETY tramadol 50 2022-0 Yes TAKE 1 Brodie douglas mg oral 5-23 TABLET BY l tablet 16:33: MOUTH [place] 00 EVERY 8 HOURS NEEDED FOR PAIN acetaminoph 2022-0 Yes TAKE 1 Brodie douglas en-hydrocod 5-23 TABLET BY l one 325 16:33: MOUTH Michael mg-10 mg 00 EVERY 8 oral tablet HOURS NEEDED ondansetron 2022-0 Yes TAKE 1 Brodie douglas 4 mg oral 5-23 TABLET BY l tablet 16:33: MOUTH [place] 00 EVERY 12 HOURS NEEDED diazepam 5 2022-0 Yes TAKE 1 Memor ia mg oral 5-23 TABLET BY l tablet 16:33: MOUTH [place] 00 EVERY 8 HOURS NEEDED FOR ANXIETY tramadol 50 2022-0 Yes TAKE 1 Brodie douglas mg oral 5-23 TABLET BY l tablet 16:33: MOUTH Michael 00 EVERY 8 HOURS NEEDED FOR PAIN acetaminoph 2022-0 Yes TAKE 1 Brodie douglas en-hydrocod 5-23 TABLET BY l one 325 16:33: MOUTH Michael mg-10 mg 00 EVERY 8 oral tablet HOURS NEEDED Vitamin D3 2022-0 Yes 50 Memoria 2000 [...] Refill(s) Vitamin D3 0 Yes 50 Memoria 1999 intl 4-18 microgram [...] 2100, Until Discontinu ed sulfur 2021-09- No [id number] 5mL 5 mL, Unive rs hexafluorid -08-13 Intravenou i ty of e microsphr 20:30: 20:30 s, ONCE, 1 [place] (LUMASON) 00 :00 dose, On Medica l injection 5 Maegan Branch 08/13/22 at 1430, Routine
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 Medical Branch Levothyroxi 2021-09 Yes Take by Uni vers ne 75 mcg -17 mouth. ity of capsule 16:36: [place] [facility] finasteride 2021-09 Yes 5mg Take 5 mg U nivers 5 mg tablet -17 by mouth ity of 16:36: in the [place] morning. Medical Branch losartan 2021-09 Yes 100mg Take 100 Univ ers 100 mg 1-17 mg by ity of tablet 16:36: mouth in [place] the Medical morning. Branch metFORMIN 2021-09 Yes 500mg Take 500 Uni vers 500 mg 1-17 mg by ity of tablet 16:36: mouth in [place] the Medical morning Branch and 500 mg in the evening. Take with meals. lovastatin 2021-09 Yes 20mg Take 20 mg U nivers 20 mg 1-17 by mouth ity of tablet 16:36: at [place] [address] bedtime. Medical Branch tamsulosin 2021-09 Yes Take [...] mouth ity of tablet 16:36: in the [place] morning. Medical Branch clopidogreL 2021-09 Yes 75mg Take 75 mg Univers (PLAVIX) 75 1-17 by mouth ity of mg tablet 16:36: in the [place] morning. Medical Branch Levothyroxi 2021-09 Yes Take by Uni vers ne 75 mcg 1-17 mouth. ity of capsule 16:36: [place] [facility] finasteride 2021-09 Yes 5mg Take 5 mg U nivers 5 mg tablet 1-17 by mouth ity of 16:36: in the [place] morning. Medical Branch losartan 2021-09 Yes 100mg Take 100 Univ ers 100 mg 1-17 mg by ity of tablet 16:36: mouth in [place] [address] the Medical morning. Branch metFORMIN 2021-09 Yes 500mg Take 500 Uni vers 500 mg 1-17 mg by ity of tablet 16:36: mouth in [place] [address] the Medical morning Branch and 500 mg in the evening. Take with meals. lovastatin 2021-09 Yes 20mg Take 20 mg U nivers 20 mg 1-17 by mouth ity of tablet 16:36: at [place] [address] bedtime. Medical Branch tamsulosin 2021-09 Yes Take by Univ ers (FLOMAX) 1-17 mouth ity of 0.4 mg 24 16:36: daily. [place] hr capsule Medical Branch ergocalcife 2021-09 Yes 2000U Take 2,000 Univers rol, 1-17 Units by ity of vitamin D2, 16:36: mouth. Serv[place] s (VITAMIN D 03 Medical ORAL) Branch aspirin 81 2021-09 Yes 81mg Take 81 mg U nivers mg chewable 1-17 by mouth ity of tablet 16:36: in the [place] [address] morning. Medical Branch clopidogreL 2021-09 Yes 75mg Take 75 mg Univers (PLAVIX) 75 1-17 by mouth ity of mg tablet 16:36: in the [place] [address] morning. Medical Branch Levothyroxi 2021-09 Yes Take by Uni vers ne 75 mcg 1-17 mouth. ity of capsule 16:36: [place] [address] Medical Branch finasteride 2021-09 Yes 5mg Take 5 mg U nivers 5 mg tablet 1-17 by mouth ity of 16:36: in the [place] [address] morning. Medical Branch losartan 2021-09 Yes 100mg Take 100 Univ ers 100 mg 1-17 mg by ity of tablet 16:36: mouth in [place] [address] the Medical morning. Branch metFORMIN 2021-09 Yes 500mg Take 500 Uni vers 500 mg 1-17 mg by ity of tablet 16:36: mouth in [place] [address] the Medical morning Branch and 500 mg in the evening. Take with meals. lovastatin 2021-09 Yes 20mg Take 20 mg U nivers 20 mg 1-17 by mouth ity of tablet 16:36: at [place] [address] bedtime. Medical Branch tamsulosin 2021-09 Yes Take by Univ ers (FLOMAX) 1-17 mouth ity of 0.4 mg 24 16:36: daily. [facility] Medical Branch ergocalcife 2021-09 Yes 2000U Take 2,000 Univers rol, 1-17 Units by ity of vitamin D2, 16:36: [place] (VITAMIN D 03 Medical ORAL) Branch aspirin 81 2021-09 Yes 81mg Take 81 mg U nivers mg chewable 1-17 by mouth ity of tablet 16:36: in the [place] [address] morning. Medical Branch polyethylen 2021-09 Yes 17g 17 g, Unive rs e glycol 1-17 Oral, ity of 3350 powder 15:00: [place], [place] 17 g 00 First dose Medical on [facility] 08/13/22 at 0900, Until Discontinu ed, Routine tamsulosin 2021-09 Yes .4mg 0.4 mg, Univ ers (FLOMAX) 1-17 Oral, ity of capsule 0.4 15:00: [place]ILY, [place] mg 00 First dose Medical on [facility] 08/13/22 at 0900, Until Discontinu ed, Routine losartan 2021-09 Yes 100mg 100 mg, Unive rs (COZAAR) -17 Oral, ity of tablet 100 15:00: DAILY, [place] mg 00 First dose Medical on [facility] 08/13/22 at 0900, Until Discontinu ed, Routine finasteride 2021-09 Yes 5mg 5 mg, Unive rs (PROSCAR) -17 Oral, ity of tablet 5 mg 15:00: [place]ILY, [place] 00 First dose Medical on [facility] 08/13/22 at 0900, Until Discontinu ed, Routine clopidogreL 2021-09 Yes 75mg 75 mg, Univ ers (PLAVIX) 75 -17 Oral, ity of mg tablet 15:00: DAILY, [place] 75 mg 00 First dose Medical on [facility] 08/13/22 at 0900, Until Discontinu ed, Routine aspirin 2021-09 Yes 81mg 81 mg, Univers chewable 17 Oral, ity of tablet 81 15:00: DAILY, [place] mg 00 First dose Medical on [facility] 08/13/22 at 0900, Until Discontinu ed, Routine enoxaparin 2021-09 Yes 40mg 40 mg, Unive rs (LOVENOX) -17 Subcutaneo ity of injection 15:00: [place], [place], [place] 40 mg 00 First dose Medical on [facility] 08/13/22 at 0900, Until Discontinu ed, Routine Sliding 2021-09 Yes Subcutaneo Univ ers Scale 1-17 us, TID ity of Insulin - 14:00: MEALS+HS, [place] Lispro 00 First dose Medical (HumaLOG) + on [facility] 08/13/22 Testing at 0800, Until Discontinu ed, Routine levothyroxi 2021-09 Yes 75ug 75 mcg, Uni vers ne -17 Oral, ity of (SYNTHROID) 12:00: QAM-0600, [place] tablet 75 00 First dose Medi balbina mcg on [facility] 08/13/22 at 0600, Until Discontinu ed dextrose 2021-09 Yes 250mL 250 mL, IV Un jovi 10% (D10W) 1-17 Infusion, ity of bolus 06:39: PRN - SEE [place] infusion 28 INSTRUCTIO Medic al 250 mL [...] 25 Starting Medical injection 1 on Maegan [facility] 08/13/22 at 0039, Until Discontinu ed, VAUGHN, Blood Glucose < or = 70 mg/dL and patient is unable to swallow or has mental changes. morpHINE (2 2021-09- No 2mg 2 mg, Slow Univers mg/mL) 10-13 IV Push, ity of injection 2 01:00: 00:59 Q6HPRN, [place] mg 09 :09 Starting Medical on Wed [place] 08/12/22 at 1900, Until Maegan 08/13/22 at [...] 650 59 Starting Medic al mg on [facility] 08/12/22 at 1859, Until Discontinu ed, Routine, Pain (scale 1-3) iopamidol 2021-09- No [id number] 100mL 100 mL, Univers (ISOVUE 10-12 Intravenou ity o f 370-500 mL) 19:45: 19:33 s, ONCE, 1 [place] injection 00 :00 dose, On Medica l 100 mL [facility] 08/12/22 at 1345, Routine hydralAZINE 2021-09- No 10mg 10 mg, Uni vers (APRESOLINE 10-12 Slow IV ity of ) injection 19:45: 18:58 [place], [place] 10 mg 00 :00 ONCE, 1 Medical dose, On [facility] 08/12/22 at 1345, STAT LORazepam 2021-09- No 1mg 1 mg, Slow U nivers (ATIVAN) 10-12 IV Push, ity of injection 1 19:15: 19:11 ONCE, 1 [place] mg 00 :00 dose, On [facility] 08/12/22 at 1315, STAT morpHINE (4 2021-09- No 4mg 4 mg, Slow Univers mg/mL) 10-12 IV Push, ity of injection 4 19:00: 18:55 ONCE, 1 [place] mg 00 :00 dose, On [facility] 08/12/22 at 1300, STAT nitroglycer 2021-09- No .4mg 0.4 mg, Un jovi in 10-12 Sublingual ity of (NITROSTAT) 18:15: 18:06 , ONCE, 1 [place] sublingual 00 :00 dose, On Medic al tablet 0.4 [facility] mg 08/12/22 at 1215, VAUGHN nitroglycer 2021-09 Yes .4mg 0.4 mg, Uni vers in 10-12 Sublingual ity of (NITROSTAT) 18:10: , Q5MIN [place] sublingual 40 PRN, 2 Medical tablet 0.4 doses, Branch mg Starting on [facility] 08/12/22 at 1210, Until Discontinu ed, VAUGHN, Chest [...] & 2021- No QD Lidocaine Adhesive Adhesive - [...] (Patch) 00 :00 (Patch) meloxicam 2021- No [id number] 15mg Take 1 Univers 15 mg 05-19 [id number] tablet by ity of tablet 00:00: 04:59 mouth in [place] 00 :00 the Branch for 30 days. meloxicam 2021- No [id number] 15mg Take 1 Univers 15 mg 05-19 [id number] tablet by ity of tablet 00:00: 04:59 mouth in [place] 00 :[address] [facility] Branch for 30 days. meloxicam 2021- No [id number] 15mg Take 1 Univers 15 mg 8-23 -23 [id number] tablet by ity of tablet 00:00: 04:59 mouth in [place] 00 :00 [facility] for 30 days. methylPREDN 2021-0 Yes [id number] 84mg Take 21 Univers ISolone 5-23 9103 tablets by ity of (MEDROL, 00:00: mouth [place] MICHELE,) 4 mg 00 SEE-INSTRU Med ical tablets CTIONS. Branch follow package directions methylPREDN 2021-0 Yes [id number] 84mg Take 21 Univers ISolone 5-23 9103 tablets by ity of (MEDROL, 00:00: mouth [place] MICHELE,) 4 mg 00 SEE-INSTRU Med ical tablets CTIONS. Branch follow package directions methylPREDN 2021-0 Yes [id number] 84mg Take 21 Univers ISolone 5-23 9103 tablets by ity of (MEDROL, 00:00: mouth [place] MICHELE,) 4 mg 00 SEE-INSTRU Med ical tablets CTIONS. Branch follow package directions methylPREDN 2021-0 Yes [id number] 84mg Take 21 Univers ISolone 5-23 9103 tablets by ity of (MEDROL, 00:00: mouth [place] MICHELE,) 4 mg 00 SEE-INSTRU Med ical tablets CTIONS. Branch follow package directions methylPREDN 2021- No [id number] 84mg Take 21 Univers ISolone 5-23 11-17 9103 tablets by ity o f (MEDROL, 00:00: 00:00 mouth [place] MICHELE,) 4 mg 00 :00 SEE-INSTRU Med ical tablets CTIONS. Branch follow package directions Meloxicam Meloxicam 2021- No 1{table QD Meloxicam 7.5 MG 7.5 MG 5-11 06-10 t} 7.5 MG 00:00: 00:00 00 :00 Meloxicam Meloxicam 2021-2021- No 1{table QD Meloxicam 7.5 MG 7.5 MG 5-11 06-10 t} 7.5 MG 00:00: 00:00 00 :00 tiZANidine tiZANidine 2021-0 2022- No 1{table tiZANidine HCl 4 MG HCl 4 MG 02-04 t_as_ne HCl 4 MG 00:00: 00:00 eded} 00 :00 Rocephin Rocephin 2-0 No 1000mg Com mon (Ceftriaxon (Ceftriaxon 4-11 S pirit e) e) 00:00: - [facility] Toradol Toradol 2021-0 No 30mg Common (Ketorolac) (Ketorolac) 4-11 S pirit 00:00: - [facility] Rocephin Rocephin 2-0 No 1000mg Com mon (Ceftriaxon (Ceftriaxon 4-11 S pirit e) e) 00:00: - [facility] Toradol Toradol 2021-0 No 30mg Common (Ketorolac) (Ketorolac) 4-11 S pirit 00:00: - [facility] Rocephin Rocephin 2-0 No 1000mg Com mon (Ceftriaxon (Ceftriaxon 4-11 S pirit e) e) 00:00: - [facility] Toradol Toradol 2021-0 No 30mg Common (Ketorolac) (Ketorolac) 4-11 S pirit 00:00: - [facility] Naproxen Naproxen 2-0 No BID Naproxen 500 MG 500 MG 4-11 500 MG 00:00: 00 Rocephin Rocephin 2-0 No 1000mg Com mon (Ceftriaxon (Ceftriaxon 4-11 S pirit e) e) 00:00: - [facility] Toradol Toradol 2-0 No 30mg Common (Ketorolac) (Ketorolac) 4-11 S pirit 00:00: - [facility] Naproxen Naproxen 2-0 No BID Naproxen 500 MG 500 MG 4-11 500 MG 00:00: 00 Rocephin Rocephin 2-0 No 1000mg Com mon (Ceftriaxon (Ceftriaxon 4-11 S pirit e) e) 00:00: - [facility] Toradol Toradol 2021-0 No 30mg Common (Ketorolac) (Ketorolac) 4-11 S pirit 00:00: - [facility] Rocephin Rocephin 2-0 No 1000mg Com mon (Ceftriaxon (Ceftriaxon 4-11 S pirit e) e) 00:00: - [facility] Toradol Toradol 2021-0 No 30mg Common (Ketorolac) (Ketorolac) 4-11 S pirit 00:00: - [facility] Rocephin Rocephin 2021-0 No 1000mg Com mon (Ceftriaxon (Ceftriaxon 4-11 S pirit e) e) 00:00: - [facility] Toradol Toradol 2021-0 No 30mg Common (Ketorolac) (Ketorolac) 4-11 S pirit 00:00: - [facility] Rocephin Rocephin 2-0 No 1000mg Com mon (Ceftriaxon (Ceftriaxon 4-11 S pirit e) e) 00:00: - [facility] Toradol Toradol 2021-0 No 30mg Common (Ketorolac) (Ketorolac) 4-11 S pirit 00:00: - [facility] Rocephin Rocephin 2-0 No 1000mg Com mon (Ceftriaxon (Ceftriaxon 4-11 S pirit e) e) 00:00: - [facility] Toradol Toradol 2021-0 No 30mg Common (Ketorolac) (Ketorolac) 4-11 S pirit 00:00: - [facility] Rocephin Rocephin 2-0 No 1000mg Com mon (Ceftriaxon (Ceftriaxon 4-11 S pirit e) e) 00:00: - [facility] Toradol Toradol 2-0 No 30mg Common (Ketorolac) (Ketorolac) 4-11 S pirit 00:00: - [facility] Rocephin Rocephin 2-0 No 1000mg Com mon (Ceftriaxon (Ceftriaxon 4-11 S pirit e) e) 00:00: - [facility] Toradol Toradol 2021-0 No 30mg Common (Ketorolac) (Ketorolac) 4-11 S pirit 00:00: - [facility] Rocephin Rocephin 2021-0 No 1000mg Com mon (Ceftriaxon (Ceftriaxon 4-11 S pirit e) e) 00:00: - [facility] Toradol Toradol 2021-0 No 30mg Common (Ketorolac) (Ketorolac) 4-11 S pirit 00:00: - [facility] Rocephin Rocephin 2021-0 No 1000mg Com mon (Ceftriaxon (Ceftriaxon 4-11 S pirit e) e) 00:00: - [facility] Toradol Toradol 2021-0 No 30mg Common (Ketorolac) (Ketorolac) 4-11 S pirit 00:00: - [facility] cefTRIAXone cefTRIAXone 2021-0 No 1000mg Common Sodium Sodium 4-11 Spirit 00:00: - [facility] Toradol Toradol 2021-0 No 30mg Common (Ketorolac) (Ketorolac) 4-11 S pirit 00:00: - [facility] cefTRIAXone cefTRIAXone 2021-0 No 1000mg Common Sodium Sodium 4-11 Spirit 00:00: - [facility] Toradol Toradol 2021-0 No 30mg Common (Ketorolac) (Ketorolac) 4-11 S pirit 00:00: - [facility] Amoxicillin Amoxicillin 2021-0 2- No 1{table BID Amoxicilli -Pot -Pot 01-05 04-18 t} n-Pot Clavulanate Clavulanate 00:00: 00:00 Clavulanat 875-125 MG 875-125 MG 00 :00 e 875-125 MG ceFAZolin 2020-09 No Route: IV, Me moria (ANES) Drug form: l 18:23: INJ, ONCE, Michael Stop date: 09/26/21 12:23:00 DRAFTER DETAIL ondansetron 2020-09 No Route: IV, Memoria (ANES) 2 Drug form: l 18:23: INJ, ONCE, Stop date: 09/26/21 12:23:00 DRAFTER DETAIL dexamethaso 2020-09 No Route: IV, Memoria ne (ANES) Drug form: l 18:23: INJ, ONCE, Stop date: 09/26/21 12:23:00 DRAFTER DETAIL lidocaine 2020-09 No Route: IV, Me moria (ANES) Drug form: l 18:23: INJ, ONCE, Stop date: 09/26/21 12:23:00 DRAFTER DETAIL propofol 2020-09 No Route: IV, Mem oria (ANES) Drug form: l 18:23: INJ, ONCE, Stop date: 09/26/21 12:23:00 DRAFTER DETAIL ceFAZolin 2020-09 No Route: IV, Me moria (ANES) Drug form: l 18:23: INJ, ONCE, Stop date: 09/26/21 12:23:00 DRAFTER DETAIL ondansetron 2020-09 No Route: IV, Memoria (ANES) Drug form: l 18:23: INJ, ONCE, Stop date: 09/26/21 12:23:00 DRAFTER DETAIL dexamethaso 2020-09 No Route: IV, Memoria ne (ANES) Drug form: l 18:23: INJ, ONCE, Stop date: 09/26/21 12:23:00 DRAFTER DETAIL lidocaine 2020-09 No Route: IV, Me moria (ANES) 2 Drug form: l 18:23: INJ, ONCE, Stop date: 09/26/21 12:23:00 DRAFTER DETAIL propofol 2020-09 No Route: IV, Mem oria (ANES) Drug form: l 18:23: INJ, ONCE, Stop date: 09/26/21 12:23:00 DRAFTER DETAIL ceFAZolin 2020-09 No Route: IV, Me moria (ANES) 2- Drug form: l 18:23: INJ, ONCE, Stop date: 09/26/21 12:23:00 DRAFTER DETAIL ondansetron 2020-09 No Route: IV, Memoria (ANES) 2- Drug form: l 18:23: INJ, ONCE, Stop date: 09/26/21 12:23:00 DRAFTER DETAIL dexamethaso 2020-09 No Route: IV, Memoria ne (ANES) 2- Drug form: l 18:23: INJ, ONCE, Stop date: 09/26/21 12:23:00 DRAFTER DETAIL lidocaine 2020-09 No Route: IV, Me moria (ANES) 2- Drug form: l 18:23: INJ, ONCE, Stop date: 09/26/21 12:23:00 DRAFTER DETAIL ceFAZolin 2020-09 No Route: IV, Me moria (ANES) 2- Drug form: l 18:23: INJ, ONCE, Stop date: 09/26/21 12:23:00 DRAFTER DETAIL ondansetron 2020-09 No Route: IV, Memoria (ANES) 2- Drug form: l 18:23: INJ, ONCE, Stop date: 09/26/21 12:23:00 DRAFTER DETAIL dexamethaso 2020-09 No Route: IV, Memoria ne (ANES) - Drug form: l 18:23: INJ, ONCE, Stop date: 09/26/21 12:23:00 DRAFTER DETAIL lidocaine 2020-09 No Route: IV, Me moria (ANES) 2- Drug form: l 18:23: INJ, ONCE, Stop date: 09/26/21 12:23:00 DRAFTER DETAIL propofol 2020-09 No Route: IV, Mem oria (ANES) 2- Drug form: l 18:23: INJ, ONCE, Stop date: 09/26/21 12:23:00 DRAFTER DETAIL propofol 2020-09 No Route: IV, Mem oria (ANES) 2- Drug form: l 18:23: INJ, ONCE, Stop date: 09/26/21 12:23:00 DRAFTER DETAIL ceFAZolin 2020-09 No Route: IV, Me moria (ANES) 2- Drug form: l 18:23: INJ, ONCE, Stop date: 09/26/21 12:23:00 DRAFTER DETAIL ondansetron 2020-09 No Route: IV, Memoria (ANES) 2- Drug form: l 18:23: INJ, ONCE, Stop date: 09/26/21 12:23:00 DRAFTER DETAIL dexamethaso 2020-09 No Route: IV, Memoria ne (ANES) 2- Drug form: l 18:23: INJ, ONCE, Stop date: 09/26/21 12:23:00 DRAFTER DETAIL lidocaine 2020-09 No Route: IV, Me moria (ANES) 2- Drug form: l 18:23: INJ, ONCE, Stop date: 09/26/21 12:23:00 DRAFTER DETAIL propofol 2020-09 No Route: IV, Mem oria (ANES) 2- Drug form: l 18:23: INJ, ONCE, Stop date: 09/26/21 12:23:00 DRAFTER DETAIL ceFAZolin 2020-09 No Route: IV, Me moria (ANES) 2- Drug form: l 18:23: INJ, ONCE, Stop date: 09/26/21 12:23:00 DRAFTER DETAIL ondansetron 2020-09 No Route: IV, Memoria (ANES) Drug form: l 18:23: INJ, ONCE, Stop date: 09/26/21 12:23:00 DRAFTER DETAIL dexamethaso 2020-09 No Route: IV, Memoria ne (ANES) 2- Drug form: l 18:23: INJ, ONCE, Stop date: 09/26/21 12:23:00 DRAFTER DETAIL lidocaine 2020-09 No Route: IV, Me moria (ANES) 2- Drug form: l 18:23: INJ, ONCE, Stop date: 09/26/21 12:23:00 DRAFTER DETAIL propofol 2020-09 No Route: IV, Mem oria (ANES) 2- Drug form: l 18:23: INJ, ONCE, Stop date: 09/26/21 12:23:00 DRAFTER DETAIL ceFAZolin 2020-09 No Route: IV, Me moria (ANES) 2- Drug form: l 18:23: INJ, ONCE, Stop date: 09/26/21 12:23:00 DRAFTER DETAIL ondansetron 2020-09 No Route: IV, Memoria (ANES) 2- Drug form: l 18:23: INJ, ONCE, Michael 00 Stop date: 09/26/21 12:23:00 DRAFTER DETAIL dexamethaso 2020-09 No Route: IV, Memoria ne (ANES) Drug form: l 18:23: INJ, ONCE, Stop date: 09/26/21 12:23:00 DRAFTER DETAIL lidocaine 2020-09 No Route: IV, Me moria (ANES) Drug form: l 18:23: INJ, ONCE, Stop date: 09/26/21 12:23:00 DRAFTER DETAIL propofol 2020-09 No Route: IV, Mem oria (ANES) Drug form: l 18:23: INJ, ONCE, Stop date: 09/26/21 12:23:00 DRAFTER DETAIL ceFAZolin 2020-09 No Route: IV, Me moria (ANES) 2 Drug form: l 18:23: INJ, ONCE, Stop date: 09/26/21 12:23:00 DRAFTER DETAIL ondansetron 2020-09 No Route: IV, Memoria (ANES) Drug form: l 18:23: INJ, ONCE, Stop date: 09/26/21 12:23:00 DRAFTER DETAIL dexamethaso 2020-09 No Route: IV, Memoria ne (ANES) Drug form: l 18:23: INJ, ONCE, Stop date: 09/26/21 12:23:00 DRAFTER DETAIL lidocaine 2020-09 No Route: IV, Me moria (ANES) 2- Drug form: l 18:23: INJ, ONCE, Stop date: 09/26/21 12:23:00 DRAFTER DETAIL propofol 2020-09 No Route: IV, Mem oria (ANES) 2- Drug form: l 18:23: INJ, ONCE, Stop date: 09/26/21 12:23:00 DRAFTER DETAIL midazolam 2020-09 No Route: IV, Me moria (ANES) 2- Drug form: l 18:22: SOLN, ONCE, Stop date: 09/26/21 12:22:00 DRAFTER DETAIL fentaNYL 2020-09 No Route: IV, Mem oria (ANES) 2-31 Drug form: l 18:22: INJ, ONCE, [place] 00 Stop date: 09/26/21 12:22:00 DRAFTER DETAIL midazolam 2020-09 No Route: IV, Me moria (ANES) 2-31 Drug form: l 18:22: SOLN, Michael 00 ONCE, Stop date: 09/26/21 12:22:00 DRAFTER DETAIL fentaNYL 2020-09 No Route: IV, Mem oria (ANES) 2-31 Drug form: l 18:22: INJ, ONCE, [place] 00 Stop date: 09/26/21 12:22:00 DRAFTER DETAIL midazolam 2020-09 No Route: IV, Me moria (ANES) 2- Drug form: l 18:22: SOLN, [place] 00 ONCE, Stop date: 09/26/21 12:22:00 DRAFTER DETAIL fentaNYL 2020-09 No Route: IV, Mem oria (ANES) 2- Drug form: l 18:22: INJ, ONCE, [place] Stop date: 09/26/21 12:22:00 DRAFTER DETAIL midazolam 2020-09 No Route: IV, Me moria (ANES) 2-31 Drug form: l 18:22: SOLN, [place] 00 ONCE, Stop date: 09/26/21 12:22:00 DRAFTER DETAIL fentaNYL 2020-09 No Route: IV, Mem oria (ANES) 2-31 Drug form: l 18:22: INJ, ONCE, [place] 00 Stop date: 09/26/21 12:22:00 DRAFTER DETAIL midazolam 2020-09 No Route: IV, Me moria (ANES) 2-31 Drug form: l 18:22: SOLN, [place] 00 ONCE, Stop date: 09/26/21 12:22:00 DRAFTER DETAIL fentaNYL 2020-09 No Route: IV, Mem oria (ANES) 2-31 Drug form: l 18:22: INJ, ONCE, Michael 00 Stop date: 09/26/21 12:22:00 DRAFTER DETAIL midazolam 2020-09 No Route: IV, Me moria (ANES) 2-31 Drug form: l 18:22: SOLN, Michael 00 ONCE, Stop date: 09/26/21 12:22:00 DRAFTER DETAIL fentaNYL 2020-09 No Route: IV, Mem oria (ANES) 2-31 Drug form: l 18:22: INJ, ONCE, [place] 00 Stop date: 09/26/21 12:22:00 DRAFTER DETAIL midazolam 2020-09 No Route: IV, Me moria (ANES) 2-31 Drug form: l 18:22: SOLN, Michael 00 ONCE, Stop date: 09/26/21 12:22:00 DRAFTER DETAIL fentaNYL 2020-09 No Route: IV, Mem oria (ANES) 2-31 Drug form: l 18:22: INJ, ONCE, [place] 00 Stop date: 09/26/21 12:22:00 DRAFTER DETAIL midazolam 2020-09 No Route: IV, Me moria (ANES) 2-31 Drug form: l 18:22: SOLN, Michael 00 ONCE, Stop date: 09/26/21 12:22:00 DRAFTER DETAIL fentaNYL 2020-09 No Route: IV, Mem oria (ANES) 2-31 Drug form: l 18:22: INJ, ONCE, [place] 00 Stop date: 09/26/21 12:22:00 DRAFTER DETAIL Lactated 2020-09 No Route: IV, Mem oria Ringers 2-31 Total l Injection 17:40: Volume: Roz nn IV (ANES) 00 1,000, 1000 mL Start date: 09/26/21 11:40:00 DRAFTER DETAIL, Stop date: 09/26/21 12:40:00 DRAFTER DETAIL Lactated 2020-09 No Route: IV, Mem oria Ringers 2-31 Total l Injection 17:40: Volume: Roz nn IV (ANES) 00 1,000, 1000 mL Start date: 09/26/21 11:40:00 DRAFTER DETAIL, Stop date: 09/26/21 12:40:00 DRAFTER DETAIL Lactated 2020-09 No Route: IV, Mem oria Ringers 2-31 Total l Injection 17:40: Volume: Roz nn IV (ANES) 00 1,000, 1000 mL Start date: 09/26/21 11:40:00 DRAFTER DETAIL, Stop date: 09/26/21 12:40:00 DRAFTER DETAIL Lactated 2020-09 No Route: IV, Mem oria Ringers 2-31 Total l Injection 17:40: Volume: Roz nn IV (ANES) 00 1,000, 1000 mL Start date: 09/26/21 11:40:00 DRAFTER DETAIL, Stop date: 09/26/21 12:40:00 DRAFTER DETAIL Lactated 2020-09 No Route: IV, Mem oria Ringers 2-31 Total l Injection 17:40: Volume: Roz nn IV (ANES) 00 1,000, 1000 mL Start date: 09/26/21 11:40:00 DRAFTER DETAIL, Stop date: 09/26/21 12:40:00 DRAFTER DETAIL Lactated 2020-09 No Route: IV, Mem oria Ringers 2-31 Total l Injection 17:40: Volume: Roz nn IV (ANES) 00 1,000, 1000 mL Start date: 09/26/21 11:40:00 DRAFTER DETAIL, Stop date: 09/26/21 12:40:00 DRAFTER DETAIL Lactated 2020-09 No Route: IV, Mem oria Ringers 2-31 Total l Injection 17:40: Volume: Roz nn IV (ANES) 00 1,000, 1000 mL Start date: 09/26/21 11:40:00 DRAFTER DETAIL, Stop date: 09/26/21 12:40:00 DRAFTER DETAIL Lactated 2020-09 No Route: IV, Mem oria Ringers 2-31 Total l Injection 17:40: Volume: Roz nn IV (ANES) 00 1,000, 1000 mL Start date: 09/26/21 11:40:00 DRAFTER DETAIL, Stop date: 09/26/21 12:40:00 DRAFTER DETAIL Calcium 2020-09 No 1,000 mL, Memor ia Chloride 2- Rate: 75 l 0.0014 15:58: ml/hr, Michael MEQ/ML / 00 Infuse Potassium over: 13.3 Chloride hr, Route: 0.004 IV, Dosing MEQ/ML / Weight Sodium 99.545 kg, Chloride Total 0.103 Volume: MEQ/ML / 1,000, Sodium Start Lactate date: 0.028 09/26/21 MEQ/ML 9:58:00 Injectable DRAFTER DETAIL, Solution Duration: 30 day, Stop date: 10/26/21 9:57:00 DRAFTER DETAIL, BSA: 2.22 m2, 0 Calcium 2020-09 No 1,000 mL, Memor ia Chloride 2-31 Rate: 75 l 0.0014 15:58: ml/hr, [place] MEQ/ML / 00 Infuse Potassium over: 13.3 Chloride hr, Route: 0.004 IV, Dosing MEQ/ML / Weight Sodium 99.545 kg, Chloride Total 0.103 Volume: MEQ/ML / 1,000, Sodium Start Lactate date: 0.028 09/26/21 MEQ/ML 9:58:00 Injectable DRAFTER DETAIL, Solution Duration: 30 day, Stop date: 10/26/21 9:57:00 DRAFTER DETAIL, BSA: 2.22 m2, 0 Calcium 2020-1 No 1,000 mL, Memor ia Chloride 2-31 Rate: 75 l 0.0014 15:58: ml/hr, [place] MEQ/ML / 00 Infuse Potassium over: 13.3 Chloride hr, Route: 0.004 IV, Dosing MEQ/ML / Weight Sodium 99.545 kg, Chloride Total 0.103 Volume: MEQ/ML / 1,000, Sodium Start Lactate date: 0.028 09/26/21 MEQ/ML 9:58:00 Injectable DRAFTER DETAIL, Solution Duration: 30 day, Stop date: 10/26/21 9:57:00 DRAFTER DETAIL, BSA: 2.22 m2, 0 Calcium 2020-1 No 1,000 mL, Memor ia Chloride 2-31 Rate: 75 l 0.0014 15:58: ml/hr, Michael MEQ/ML / 00 Infuse Potassium over: 13.3 Chloride hr, Route: 0.004 IV, Dosing MEQ/ML / Weight Sodium 99.545 kg, Chloride Total 0.103 Volume: MEQ/ML / 1,000, Sodium Start Lactate date: 0.028 09/26/21 MEQ/ML 9:58:00 Injectable DRAFTER DETAIL, Solution Duration: 30 day, Stop date: 10/26/21 9:57:00 DRAFTER DETAIL, BSA: 2.22 m2, 0 Calcium 2020-1 No 1,000 mL, Memor ia Chloride 2-31 Rate: 75 l 0.0014 15:58: ml/hr, Michael MEQ/ML / 00 Infuse Potassium over: 13.3 Chloride hr, Route: 0.004 IV, Dosing MEQ/ML / Weight Sodium 99.545 kg, Chloride Total 0.103 Volume: MEQ/ML / 1,000, Sodium Start Lactate date: 0.028 09/26/21 MEQ/ML 9:58:00 Injectable DRAFTER DETAIL, Solution Duration: 30 day, Stop date: 10/26/21 9:57:00 DRAFTER DETAIL, BSA: 2.22 m2, 0 Calcium 2020-09 No 1,000 mL, Memor ia Chloride 2-31 Rate: 75 l 0.0014 15:58: ml/hr, Michael MEQ/ML / 00 Infuse Potassium over: 13.3 Chloride hr, Route: 0.004 IV, Dosing MEQ/ML / Weight Sodium 99.545 kg, Chloride Total 0.103 Volume: MEQ/ML / 1,000, Sodium Start Lactate date: 0.028 09/26/21 MEQ/ML 9:58:00 Injectable DRAFTER DETAIL, Solution Duration: 30 day, Stop date: 10/26/21 9:57:00 DRAFTER DETAIL, BSA: 2.22 m2, 0 Calcium 2020-09 No 1,000 mL, Memor ia Chloride 2-31 Rate: 75 l 0.0014 15:58: ml/hr, [place] MEQ/ML / 00 Infuse Potassium over: 13.3 Chloride hr, Route: 0.004 IV, Dosing MEQ/ML / Weight Sodium 99.545 kg, Chloride Total 0.103 Volume: MEQ/ML / 1,000, Sodium Start Lactate date: 0.028 09/26/21 MEQ/ML 9:58:00 Injectable DRAFTER DETAIL, Solution Duration: 30 day, Stop date: 10/26/21 9:57:00 DRAFTER DETAIL, BSA: 2.22 m2, 0 Calcium 2020-09 No 1,000 mL, Memor ia Chloride 2-31 Rate: 75 l 0.0014 15:58: ml/hr, Michael MEQ/ML / 00 Infuse Potassium over: 13.3 Chloride hr, Route: 0.004 IV, Dosing MEQ/ML / Weight Sodium 99.545 kg, Chloride Total 0.103 Volume: MEQ/ML / 1,000, Sodium Start Lactate date: 0.028 09/26/21 MEQ/ML 9:58:00 Injectable DRAFTER DETAIL, Solution Duration: 30 day, Stop date: 10/26/21 9:57:00 DRAFTER DETAIL, BSA: 2.22 m2, 0 folic acid 2020-09 [...] 2-29 cap, PO, l capsule 15:14: Daily Michael 00 tamsulosin 2020-09 Yes 0.4 mg = [...] 2-29 cap, PO, l capsule 15:14: Daily Vitamin D-3 Vitamin D-3 2020-09 No 2{capsu [...] le} 1000 MG 00:00: 00 hydroCHLORO hydroCHLORO 2020-0 No 1{table QD [...] a 1-15 PO, Daily, l 20:18: 0 [place] 00 Refill(s) levothyroxi Yes 75 Memori a ne 1-15 microgram, l 20:18: PO, Daily, [place] 00 0 Refill(s) finasteride Yes 5 mg = 1 Me moria 1-15 tab, PO, l 20:18: Daily, # Michael 00 30 tab, 0 Refill(s) lovastatin Yes 20 mg, PO, M emoria 1-15 0 l 20:18: Refill(s) [place] 00 clopidogrel 0 Yes 75 mg = 1 M emoria 75 mg oral 1-15 tab, PO, l tablet 20:18: Daily, # [place] 00 30 tab, 0 Refill(s) losartan 0 Yes 100 mg, Memori a 1-15 PO, Daily, l 20:18: 0 [place] 00 Refill(s) levothyroxi Yes 75 Memori a ne 1-15 microgram, l 20:18: PO, Daily, Michael 00 0 Refill(s) finasteride Yes 5 mg = 1 Me moria 1-15 tab, PO, l 20:18: Daily, # Michael 00 30 tab, 0 Refill(s) lovastatin Yes 20 mg, PO, M emoria 1-15 0 l 20:18: Refill(s) clopidogrel 0 Yes 75 mg = 1 M emoria 75 mg oral 1-15 tab, PO, l tablet 20:18: Daily, # Michael 00 30 tab, 0 Refill(s) losartan 0 Yes 100 mg, Memori a 1-15 PO, Daily, l 20:18: 0 [place] 00 Refill(s) levothyroxi 0 Yes 75 Memori [...] 1-15 tab, PO, l 20:18: Daily, # [place] 00 30 tab, 0 Refill(s) lovastatin 0 Yes 20 mg, PO, M emoria 1-15 0 l 20:18: Refill(s) clopidogrel 2020-0 Yes 75 mg = 1 M emoria [...] emoria 1-15 0 l 20:18: Refill(s) clopidogrel 2020-0 Yes 75 mg = 1 M emoria 75 mg oral 1-15 tab, PO, l tablet 20:18: Daily, # [place] 00 30 tab, 0 Refill(s) losartan 0 Yes 100 mg, Memori a 1-15 PO, Daily, l 20:18: 0 Refill(s) levothyroxi 0 Yes 75 Memori a ne 1-15 microgram, l 20:18: PO, Daily, 0 Refill(s) finasteride 0 Yes 5 mg = 1 Me moria 1-15 tab, PO, l 20:18: Daily, # [place] 00 30 tab, 0 Refill(s) lovastatin 0 [...] Plus - - 00:00: 00 Accu-Chek Accu-Chek 2018- No Accu-Chek Tania [...] Brodie douglas 6-22 Daily l 22:27: Michael aspirin Yes 81 mg, PO, Brodie douglas 6-22 Daily l 22:27: Michael 37 aspirin Yes 81 mg, PO, Brodie douglas 6-22 Daily l 22:27: Michael aspirin Yes 81 mg, PO, Brodie douglas 6-22 Daily l 22:27: Michael 37 metFORmin Yes 500 mg, Memor ia 6-22 PO, 1 tab l 22:27: with [place] 14 breakfast, 1 tab at noon, 2 at dinner metFORmin Yes 500 mg, Memor ia 6-22 PO, 1 tab l 22:27: with Michael 14 breakfast, 1 tab at noon, 2 at dinner metFORmin Yes 500 mg, Memor ia 6-22 PO, 1 tab l 22:27: with [place] 14 breakfast, 1 tab at noon, 2 at dinner metFORmin Yes 500 mg, Memor ia 6-22 PO, 1 tab l 22:27: with [place] 14 breakfast, 1 tab at noon, 2 [...] Yes Regina 1 capsule Common HCl HCl [facility] metFORMIN metFORMIN No metFORMIN HCl 500 [...] blood 2022-08-13 17:39:00 151 mm[Hg] [facility] Diastolic blood 2022-08-13 17:39:00 94 mm[facility]Hg[facility]22-08-13 17:39:00 82 /min [facility] Body temperature 2022-08-13 17:39:00 [facility].33 [facility] 2022-08-13 17:39:00 18 /min [facility] Oxygen saturation in 2022-08-13 17:39:00 96 /min [facility] Arterial blood by [facility] Pulse oximetry [facility] Body weight 2022-08-13 09:43:00 89.994 kg [facility] ty [facility] BMI 2022-08-13 09:43:00 29.30 kg/m2 [facility] Body height 2022-08-13 01:42:[address] [facility] height 2022-06-19 11:00:00 69.5 [in_i] Common [facility] weight 2022-06-19 11:00:00 212 [lb_av] [facility] temperature 2022-06-19 11:00:00 98.6 [degF] [facility] bmi 2022-06-19 11:00:00 30.85 kg/m2 [facility] oximetry 2022-06-19 11:00:00 96 % [facility] respiratory rate 2022-06-19 11:00:00 17 /min Comm on [facility] blood pressure 2022-06-19 11:00:00 134 mm[Hg] Common [facility] - systolic [facility] blood pressure 2022-06-19 11:00:00 80 mm[Hg] [facility] height 2022-06-19 10:40:00 69.5 [in_i] Common [facility] weight 2022-06-19 10:40:00 212 [lb_av] [facility] temperature 2022-06-19 10:40:00 98.6 [degF] [facility] bmi 2022-06-19 10:40:00 30.85 kg/m2 [facility] oximetry 2022-06-19 10:40:00 96 % Common [facility] respiratory rate 2022-06-19 10:40:00 17 /min Comm on [facility] blood pressure 2022-06-19 10:40:00 134 mm[Hg] Common [facility] - systolic [facility] blood pressure 2022-06-19 10:40:00 80 mm[Hg] Common [facility] - diastolic [facility] height 2022-06-15 11:20:00 69.5 [in_i] Common [facility] weight 2022-06-15 11:20:00 212 [lb_av] Common [facility] temperature 2022-06-15 11:20:00 98.2 [degF] [facility] bmi 2022-06-15 11:20:00 30.85 kg/m2 [facility] oximetry 2022-06-15 11:20:00 97 % [facility] respiratory rate 2022-06-15 11:20:00 16 /min Comm on [facility] blood pressure 2022-06-15 11:20:00 134 mm[Hg] Common [facility] - systolic [facility] blood pressure 2022-06-15 11:20:00 76 mm[Hg] Common [facility] - diastolic [facility] Body height 2022-05-19 13:09:[address] [facility] Body weight 2022-05-19 13:09:[address] [facility] BMI 2022-05-19 13:09:00 31.01 kg/m2 [facility] height 2022-02-04 09:20:00 69.5 [in_i] Common [facility] weight 2022-02-04 09:20:00 211.8 [lb_av] Common [facility] temperature 2022-02-04 09:20:00 97.5 [degF] Common [facility] bmi 2022-02-04 09:20:00 30.83 kg/m2 Common [facility] oximetry 2022-02-04 09:20:00 95 % Common [facility] respiratory rate 2022-02-04 09:20:00 16 /min Comm on [facility] blood pressure 2022-02-04 09:20:00 134 mm[Hg] Common [facility] - systolic [facility] blood pressure 2022-02-04 09:20:00 78 mm[Hg] Common [facility] - diastolic [facility] height 2022-01-05 14:40:00 69.5 [in_i] Common [facility] weight 2022-01-05 14:40:00 210.4 [lb_av] [facility] temperature 2022-01-05 14:40:00 98.1 [degF] [facility] bmi 2022-01-05 14:40:00 30.62 kg/m2 [facility] oximetry 2022-01-05 14:40:00 97 % [facility] respiratory rate 2022-01-05 14:40:00 16 /min Comm on [facility] blood pressure 2022-01-05 14:40:00 138 mm[Hg] [facility] systolic [facility] blood pressure 2022-01-05 14:40:00 74 mm[Hg] Common [facility] - diastolic [facility] height 2021-12-22 08:40:00 69.5 [in_i] Common [facility] weight 2021-12-22 08:40:00 216.8 [lb_av] [facility] temperature 2021-12-22 08:40:00 97.5 [degF] [facility] bmi 2021-12-22 08:40:00 31.55 kg/m2 [facility] oximetry 2021-12-22 08:40:00 97 % Common [facility] respiratory rate 2021-12-22 08:40:00 16 /min Comm on [facility] blood pressure 2021-12-22 08:40:00 136 mm[Hg] Common [facility] - systolic [facility] blood pressure 2021-12-22 08:40:00 78 mm[Hg] [facility] height 2021-08-26 16:00:00 69.5 [in_i] [facility] weight 2021-08-26 16:00:00 213.2 [lb_av] Common [facility] temperature 2021-08-26 16:00:00 98.3 [degF] Common [facility] bmi 2021-08-26 16:00:00 31.03 kg/m2 Common [facility] oximetry 2021-08-26 16:00:00 97 % Common [facility] respiratory rate 2021-08-26 16:00:00 16 /min Comm on [facility] blood pressure 2021-08-26 16:00:00 130 mm[Hg] Common [facility] - systolic [facility] blood pressure 2021-08-26 16:00:00 72 mm[Hg] Common [facility] - diastolic [facility] height 2021-06-24 08:00:00 69.5 [in_i] Common [facility] weight 2021-06-24 08:00:00 221.8 [lb_av] Common [facility] temperature 2021-06-24 08:00:00 99.0 [degF] [facility] bmi 2021-06-24 08:00:00 32.28 kg/m2 Common [facility] oximetry 2021-06-24 08:00:00 97 % Common [facility] respiratory rate 2021-06-24 08:00:00 16 /min Comm on [facility] blood pressure 2021-06-24 08:00:00 138 mm[Hg] Common [facility] - systolic [facility] blood pressure 2021-06-24 08:00:00 88 mm[Hg] [facility] height 2021-03-25 08:40:00 69.5 [in_i] [facility] weight 2021-03-25 08:40:00 226.8 [lb_av] Common [facility] - [facility] temperature 2021-03-25 08:40:00 97.8 [degF] [facility] bmi 2021-03-25 08:40:00 33.01 kg/m2 [facility] oximetry 2021-03-25 08:40:00 98 % [facility] respiratory rate 2021-03-25 08:40:00 16 /min Comm on [facility] blood pressure 2021-03-25 08:40:00 136 mm[Hg] Common [facility] - systolic [facility] blood pressure 2021-03-25 08:40:00 76 mm[Hg] [facility] - diastolic [facility] Systolic (mm Hg) 2023-02-16 15:48:00 [facility] [place] Diastolic (mm Hg) 2023-02-16 15:48:00 [facility] [place] Heart Rate 2023-02-16 15:48:00 [facility] [place] Height 2023-02-16 15:48:00 5 [ft_i] [facility] Weight 2023-02-16 15:48:00 [facility] BMI Calculated 2023-02-16 15:48:00 [facility] [place] Height 2023-02-12 13:17:00 5 [ft_i] [facility] [place] Weight 2023-02-12 13:17:00 [facility] BMI Calculated 2023-02-12 13:17:00 [facility] Systolic (mm Hg) 2023-02-12 13:17:00 [facility] Diastolic (mm Hg) 2023-02-12 13:17:00 [facility] [place] Heart Rate 2023-02-12 13:17:00 [facility] [place] Systolic (mm Hg) 2023-01-12 20:10:00 [facility] Diastolic (mm Hg) 2023-01-12 20:10:00 [facility] [place] Heart Rate 2023-01-12 20:10:00 [facility] [place] Height 2023-01-12 20:10:00 5 [ft_i] [facility] Weight 2023-01-12 20:10:00 [facility] [place] BMI Calculated 2023-01-12 20:10:00 [facility] Respitory Rate 2021-09-26 19:20:00 [facility] [place] Systolic (mm Hg) 2021-09-26 19:20:00 [facility] [place] Diastolic (mm Hg) 2021-09-26 19:20:00 [facility] Respitory Rate 2021-09-26 19:05:00 [facility] [place] Systolic (mm Hg) 2021-09-26 19:05:00 [facility] Diastolic (mm Hg) 2021-09-26 19:05:00 [facility] [place] Respitory Rate 2021-09-26 18:50:00 [facility] Systolic (mm Hg) 2021-09-26 18:50:00 Brodie rial [place] Diastolic (mm Hg) 2021-09-26 18:50:00 Mem o[facility] [place] Weight 2021-09-26 16:27:00 [facility] [place] BMI Calculated 2021-09-26 16:27:00 Memori al [facility] Heart Rate 2021-09-26 15:54:00 [facility] Height 2021-09-24 19:39:00 175.26 cm [facility] [place] Height 2021-09-24 15:25:00 175.26 cm [facility] [place] Weight 2021-09-24 15:25:00 [facility] BMI Calculated 2021-09-24 15:25:00 Memori al [place] Procedures Procedure Date / Time Performing Clinician Source Performed NOTICE OF PRIVACY 2023-01-07 13:09:51 Doctor Unassigned, No [facility] Name Medical Branch CONSENT/REFUSAL FOR 2023-01-07 13:09:26 Doctor Unassigned, No [facility] DIAGNOSIS AND TREATMENT Name Medical Branch ASSIGNMENT OF BENEFITS 2023-01-07 13:08:59 Doctor Unassigned, No [facility] Name Medical Branch TRANSTHORACIC ECHO (TTE) 2022-08-13 20:02:00 Andre David [facility] COMPLETE W/ CONTRAST [facility] POCT GLUCOSE (AUTOMATED) 2022-08-13 17:40:00 Alexandre Montemayor [facility] POCT GLUCOSE (AUTOMATED) 2022-08-13 13:32:00 Alexandre Montemayor [facility] MAGNESIUM 2022-08-13 09:50:00 [facility] BASIC METABOLIC PANEL 2022-08-13 09:50:00 Alexandre Montemayor [facility] (NA, K, CL, CO2, Medical Branch GLUCOSE, BUN, CREATININE, CA) CBC WITH DIFF 2022-08-13 09:50:00 [facility] PHOSPHORUS 2022-08-13 03:53:00 [facility] 2022-08-13 02:32:00 [facility] POCT GLUCOSE (AUTOMATED) 2022-08-13 01:22:00 Alexandre Montemayor [facility] CT ANGIOGRAM CHEST 2022-08-12 19:53:[address] [facility] CT ANGIOGRAM 2022-08-12 19:53:05 [facility]PELVIS Medical [place] HB ECG ROUTINE & RHYTHM 2022-08-12 19:09:59 Leonora Ruby [facility] [place] TROPONIN I 2022-08-12 19:08:00 Leonora Ruby [facility] HB ECG ROUTINE & RHYTHM 2022-08-12 18:01:56 Leonora Ruby [facility] LIPASE 2022-08-12 17:05:00 [facility] 2022-08-12 17:05:00 Leonora Ruby [facility] COMP. METABOLIC PANEL 2022-08-12 17:05:00 Leonora Ruby [facility] ([id number]) Medical Branch CBC WITH DIFF 2022-08-12 17:05:00 Leonora Ruby [facility] GLYCOSYLATED HEMOGLOBIN 2022-08-12 17:05:00 Andre David [facility] (A1C) [facility] PROTHROMBIN TIME / INR 2022-08-12 17:05:00 Leonora Ruby [facility] URINALYSIS 2022-08-12 17:05:00 Leonora Ruby [facility] N-TERMINAL PRO-BNP 2022-08-12 17:05:[address] [facility] HB ECG ROUTINE & RHYTHM 2022-08-12 16:51:46 Leonora Ruby [facility] [place] CONSENT/REFUSAL FOR 2022-08-12 16:16:12 Doctor Unassigned, No [facility] DIAGNOSIS AND TREATMENT Name [facility] REFERRAL- 2022-06-16 05:01:00 Doctor Unassigned, No [facility] REQUEST/RESPONSE Name 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 [id number] Common 09:28:02 Maira 31720 [facility] 2021-10-22 Outpatient Oliveira, MELANI [facility] [id number] Common 14:27:24 Maira 66091 [facility] 2021-10-22 Outpatient Oliveira, MELANI [facility] [id number] Common 14:18:00 Maira 51472 [facility] 2021-10-22 Outpatient Monticello, STRIGO [facility] [id number] Common 13:35:45 Regina 82281 [facility] 2021-10-22 Outpatient Mont[place]ello, STLMLC STLMLC [id number] Common 12:41:58 Regina 90025 [facility] 2021-10-22 Outpatient [place], STLMLC STLMLC [id number] Common 12:40:52 Regina 52148 [facility] 2021-10-22 Outpatient [place], STLMLC STLMLC [id number] Common 12:12:33 Regina 37651 [facility] 2021-10-22 Outpatient [place], STLMLC STLMLC [id number] Common 11:56:49 Regina 25390 [facility] 2021-10-22 Outpatient [place], STLMLC STLMLC [id number] Common 11:56:09 Regina 75656 [facility] 2021-10-22 Outpatient [place], STLMLC STLMLC [id number] Common 11:21:52 Regina 25994 [facility] 2021-10-22 Outpatient [place], STLMLC STLMLC [id number] Common 11:07:15 Regina 46513 [facility] 2021-10-22 Outpatient [place], STLMLC STLMLC [id number] Common 11:06:53 Regina 69773 [facility] 2021-10-22 Outpatient [place], STLMLC STLMLC [id number] Common 10:59:53 Regina 83852 [facility] 2021-07-28 Emergency [facility] [id number] Univers 23:28:16 [facility] 2023-04-02 2023-04-02 Outpatient MHIE MHIE [id number] Memoria 09:15:00 09:15:00 04 eb Rodriguez 2023-03-26 2023-03-26 Outpatient MHIE MHIE [id number] Memoria 09:45:00 09:45:00 02 eb Rodriguez 2023-03-26 2023-03-26 Outpatient MHIE MHIE [id number] Memoria 09:45:00 09:45:00 02 eb Rodriguez 2023-02-16 2023-02-17 Outpatient MHIE MNA [id number] Memoria 16:00:00 04:59:59 Neurology 03 l Renetta Rodriguez 2023-02-16 2023-02-17 Outpatient MHIE MNA [id number] Memoria 16:00:00 04:59:59 Neurology 03 l Renetta Rodriguez 2023-02-16 2023-02-16 Outpatient Lis MHMISCHER MHMISCHER [id number] 11:00:00 23:59:59 Jeison 03 Grayson 2023-02-16 2023-02-16 Outpatient MHIE MHIE [id number] Memoria 11:00:00 11:00:00 03 eb Rodriguez 2023-02-12 2023-02-13 Outpatient MHIE MNA [id number] Memoria 13:15:00 04:59:59 Neurology 01 l Renetta Rodriguez 2023-02-12 2023-02-13 Outpatient MHIE MNA [id number] Memoria 13:15:00 04:59:59 Neurology 01 l Renetta Rodriguez 2023-02-12 2023-02-12 Outpatient Lis, MHMISCHER MHMISCHER [id number] 08:15:00 23:59:59 Jeison 01 Grayson 2023-02-12 2023-02-12 Outpatient MHIE MHIE [id number] Memoria 08:15:00 08:15:00 01 eb Rodriguez 2023-01-12 2023-01-13 Outpatient MHIE MNA [id number] Memoria 20:15:00 04:59:59 Neurology 00 l Renetta Rodriguez 2023-01-12 2023-01-13 Outpatient MHIE MNA [id number] Memoria 20:15:00 04:59:59 Neurology 00 l Renetta Rodriguez 2023-01-12 2023-01-12 Outpatient SAADIA HaysMISCHER MHMISCHER [id number] 15:15:00 23:59:59 Jeison 00 Grayson 2023-01-12 2023-01-12 Outpatient MHIE MHIE [id number] Memoria 15:15:00 15:15:00 00 eb Michael 2023-01-07 2023-01-07 Hospital Radiology [facility] 1.2.840.114 [id number] Univers 08:11:54 23:59:00 Encounter [place] 350.1.13.10 ity of [place] 4.2.7.2.686 [facility] [id number] [facility] 804 Branch 2023-01-07 2023-01-07 Outpatient R RADIOLOGY [facility] [id number] Univers 00:00:00 23:59:00 ity of [facility] 2022-10-28 2022-10-28 (TEL) STLMLC STLMLC [id number] Co mmon 00:00:00 00:00:00 [facility] 2022-08-14 2022-08-14 Transition ELIUD Rice 1.2.840.114 [id number] Univers 00:00:00 00:00:00 of Judah ELAM 350.1.13.10 it y of [place] 4.2.7.2.686 [facility] [id number] [facility] 403 Branch 2022-08-14 2022-08-14 (TEL) STLMLC STLMLC [id number] Co mmon 00:00:00 00:00:00 [facility] 2022-08-12 2022-08-13 Outpatient X LUCERO, [facility] KIP [id number] Univers 10:44:00 16:22:00 EARL ity [facility] 2022-08-12 2022-08-13 Emergency Ruby Leonora [facility] 1.2.840 .114 [id number] Univers 10:44:00 16:22:00 Alexandre Montemayor 350.1.13.10 ity of [place] Goddardsegundo [place] 4.2.7.2.686 [facility] [id number] [facility] 081 Branch 2022-06-22 2022-06-22 (TEL) STLMLC STLMLC [id number] Co mmon 00:00:00 00:00:00 [facility] 2022-06-19 2022-06-19 (MCR WELL) STLMLC STLMLC [id number] Common 00:00:00 00:00:00 Medicare Spiri t Wellness [facility] 2022-06-19 2022-06-19 [facility] [id number] Co mmon 00:00:00 00:00:00 VISIT EST Spir it PT LEVEL 3 [facility] 2022-06-16 2022-06-16 Orders Doctor GUZMAN 1.2.840.114 [id number] Univers 00:00:00 00:00:00 Only Unassigned, ANASTASIA 350.1.13.10 ity of [place] [facility] 4.2.7.2.686 Ty as [id number] [address] 2022-06-15 2022-06-15 [facility] [id number] Co mmon 00:00:00 00:00:00 VISIT EST Spir it PT LEVEL 3 [facility] 2022-05-21 2022-05-21 Telephone [facility] 1.2.840.114 [id number] Univers 00:00:00 00:00:00 [facility] 350.1.13.10 it y of [place] 4.2.7.2.686 Ty as MANOJ?BLEA [id number] Ct nikita [address] OFFICE [facility] 2022-05-19 2022-05-19 Office [facility] 1.2.840.114 [id number] Univers 08:45:00 09:00:00 Visit [facility] 350.1.13.10 it y of [place] 4.2.7.2.686 Ty as MANOJ?BLEA [id number] Ct richard[address] OFFICE [facility] 2022-05-19 2022-05-19 Outpatient R SARBJIT [facility] [id number] Univers 08:45:00 08:45:00 BRIAN ity [facility] 2022-05-19 2022-05-19 Outpatient R SARBJIT [facility] [id number] Univers 08:45:00 08:45:00 BRIAN ity [facility] 2022-05-16 2022-05-16 Outpatient R RADIOLOGY [facility] [id number] Univers 07:47:58 23:59:00 ity [facility] 2022-05-16 2022-05-16 Hospital Radiology [facility] 1.2.840.114 [id number] Univers 07:47:58 23:59:00 Encounter [place] 350.1.13.10 ity of [place] 4.2.7.2.686 [facility] [id number] [facility] [address] [place] 2022-05-16 2022-05-16 Outpatient R RADIOLOGY [facility] [id number] Univers 07:47:58 23:59:00 ity of [facility] 2022-05-14 2022-05-14 Hospital Radiology [facility] 1.2.840.114 [id number] Univers 08:30:00 08:30:00 Encounter Y HEALTH 350.1.13.10 ity of [employer] 4.2.7.2.686 [facility] [id number] [facility] [address] [place] [address] 2022-05-14 2022-05-14 Outpatient R RADIOLOGY [facility] [id number] Univers 00:00:00 00:00:00 ity of [facility] 2022-05-14 2022-05-14 Outpatient R RADIOLOGY [facility] [id number] Univers 00:00:00 00:00:00 ity of [facility] 2022-05-12 2022-05-12 Telephone [facility] 1.2.840.114 [id number] Univers 00:00:00 00:00:00 [place] HEALTH 350.1.13.10 it y of [place] 4.2.7.2.686 Ty as MANOJ?BLEA [id number] Ct rich[address] MEDICAL OFFICE BUILDING 2022-05-11 2022-05-11 Outpatient [facility] [id number] Univers 15:14:20 23:59:00 WALLACE ity of [facility] 2022-05-11 2022-05-11 [facility] 1.2.840.114 [id number] Univers 15:14:20 23:59:00 Encounter Wallace CORDERO 350.1.13.10 ity of [place] 4.2.7.2.686 [facility] [id number] [facility] [address] [place] 2022-05-11 2022-05-11 Office [facility] 1.2.112.735 [id number] Univers 14:45:00 14:45:00 Visit [facility] 350.1.13.10 it y of [place] 4.2.7.2.686 Ty as MANOJ?BLEA [id number] Ct nikita THOMPSON [address] [place] [address] OFFICE [facility] 2022-05-11 2022-05-11 Outpatient [facility] [id number] Univers 14:45:00 14:34:12 WALLACE chinchilla [facility] 2022-05-07 2022-05-07 Telephone [facility] 1.2.840.114 [id number] Univers 00:00:00 00:00:00 [facility] 350.1.13.10 it y of [place] 4.2.7.2.686 Ty as MANOJ?BLEA [id number] Ct nikita THOMPSON [address] [place] [address] 2022-03-05 2022-03-05 (TEL) STLMLC STLC [id number] Co mmon 00:00:00 00:00:00 [facility] 2022-03-03 2022-03-03 Outpatient [facility] [id number] Univers 13:04:32 23:59:00 [facility] 2022-03-03 2022-03-03 Office [facility] 1.2.840.114 [id number] Univers 13:45:00 14:00:00 [facility] 350.1.13.10 it y of [place] 4.2.7.2.686 Ty as MANOJ?BLEA [id number] Ct nikita THOMPSON [address] [place] [address] 2022-03-03 2022-03-03 Outpatient [facility] [id number] Univers 13:45:00 13:45:00 [facility]22-[facility] 2022-02-16 Outpatient Alec [facility] [id number] Univers 13:27:13 23:59:00 [facility] 2022-02-16 2022-02-16 Outpatient Alec [facility] [id number] Univers 13:27:13 23:59:00 BRIAN [facility] 2022-02-16 2022-02-16 Office [facility] 1.2.840.114 [id number] Univers 13:45:00 14:00:00 Visit [facility] HEALTH 350.1.13.10 it y of [place] 4.2.7.2.686 Ty as MANOJ?BLEA [id number] Ct nikita [address] OFFICE [facility] 2022-02-16 2022-02-16 Outpatient R SARBJIT [facility] [id number] Univers 13:45:00 13:45:00 BRIAN ity [facility] 2022-02-16 2022-02-16 Orders Doctor MEGAN 1.2.840.114 [id number] Univers 00:00:00 00:00:00 Only Unassigned, ANASTASIA 350.1.13.10 ity of [place] [facility] 4.2.7.2.686 Ty as [id number] [address] 2022-02-16 2022-02-16 Telephone [facility] 1.2.170.920 [id number] Univers 00:00:00 00:00:00 [facility] HEALTH 350.1.13.10 it y [facility] 4.2.7.2.686 Ty as MANOJ?BLEA [id number] Ct [address] 2022-02-05 2022-02-05 Orders Doctor MEGAN 1.2.840.114 [id number] Univers 00:00:00 00:00:00 Only Unassigned, ANASTASIA 350.1.13.10 ity of [place] [facility] 4.2.7.2.686 Ty as [id number] [address] 2022-02-04 2022-02-04 OFFICE STLMLC STLMLC [id number] Co mmon 00:00:00 00:00:00 VISIT EST Spir it PT LEVEL 3 - [facility] 2022-01-19 2022-01-19 (TEL) STLMLC STLMLC [id number] Co mmon 00:00:00 00:00:00 Spirit - [facility] 2022-01-05 2022-01-05 OFFICE STLMLC STLMLC [id number] Co mmon 00:00:00 00:00:00 VISIT EST Spir it PT LEVEL 3 - [facility] 2021-12-22 2021-12-22 OFFICE STLMLC STLMLC [id number] Co mmon 00:00:00 00:00:00 VISIT Spirit ESTAB PT - [facility] L[facility]EL 4 [facility] 2021-11-20 2021-11-20 (TEL) STLMLC STLMLC [id number] Co mmon 00:00:00 00:00:00 [facility] 2021-10-21 2021-10-21 (TEL) STLMLC STLMLC [id number] Co mmon 00:00:00 00:00:00 [facility] 2021-10-02 2021-10-02 (TEL) STLMLC STLMLC [id number] Co mmon 00:00:00 00:00:00 [facility] 2021-09-26 2021-09-26 Day [facility] [id number] Memoria 14:19:00 19:21:00 Surgery r [place] 02 [facility] 2021-09-26 2021-09-26 Day [facility] [id number] Memoria 14:19:00 19:21:00 Surgery r [address] 2021-09-26 2021-09-26 Outpatient CURT Nash MHPL [id number] 08:19:00 13:21:00 Braxton Coleman Magdi 2021-09-26 2021-09-26 Outpatient LORI NASH MHBL [id number] MHBL 08:19:00 13:21:00 [place] 2021-09-12 2021-09-12 (TEL) STLMLC STLMLC [id number] Co mmon 00:00:00 00:00:00 [facility] 2021-09-08 2021-09-08 (TEL) STLMLC STLMLC [id number] Co mmon 00:00:00 00:00:00 [facility] 2021-09-02 2021-09-02 Outpatient CARLOS ALBERTO RAMIREZ OPH [id number] Univers 06:24:00 09:17:00 CHE chinchilla [facility] 2021-09-02 2021-09-02 Hospital [facility] 1.2.840.114 [id number] Univers 06:24:00 09:17:00 Encounter Che CORDERO 350.1.13.10 ity of [place] 4.2.7.2.686 [facility] SURGICAL [id number] [facility] 020 Branch 2021-09-02 2021-09-02 Surgery [facility] 1.2.727.820 [id number] Univers 07:30:00 08:31:00 Che CORDERO 350.1.13.10 ity of [place] 4.2.7.2.686 [facility] SURGICAL [id number] [place] [address] Branch 2021-09-01 2021-09-01 Outpatient [facility] [id number] Univers 09:45:00 09:45:00 CHE amor [facility] 2021-09-01 2021-09-01 Laboratory Only, Adc Test [facility] 1.2.840. 114 [id number] Univers 08:58:02 09:13:02 Only Che Bah 350.1.13. 10 ity of [place] 4.2.7.2.686 [facility] [id number] [facility] 353 [address] 2021-09-01 2021-09-01 Orders Doctor MEGAN 1.2.840.114 [id number] Univers 00:00:00 00:00:00 Only Unassigned, ANASTASIA 350.1.13.10 ity [place] 4.2.7.2.686 Ty [id number] [facility] 009 Branch 2021-09-01 2021-09-01 (TEL) STLMLC STLMLC [id number] Co mmon 00:00:00 00:00:00 Spirit - [facility] 2021-08-26 2021-08-26 OFFICE STLMLC STLMLC [id number] Co mmon 00:00:00 00:00:00 VISIT EST Spir it PT LEVEL 3 - [facility] 2021-08-19 2021-08-19 (TEL) STLMLC STLMLC [id number] Co mmon 00:00:00 00:00:00 [facility] 2021-08-13 2021-08-13 Outpatient R SARBJIT [facility] [id number] Univers 13:15:00 13:15:00 BRIAN [facility] 2021-08-13 2021-08-13 Office [facility] 1.2.840.114 [id number] Univers 12:47:28 13:02:28 Visit Brian [facility] 350.1.13.10 it y of [place] 4.2.7.2.686 Ty as MANOJ?BLEA [id number] Ct dical MICKEY [address] MEDICAL OFFICE [facility] 2021-08-13 2021-08-13 Telephone [facility] 1.2.840.114 [id number] Univers 00:00:00 00:00:00 [facility] 350.1.13.10 it y of SURGICAL 4.2.7.2.686 Ty as SPECIALTI [id number] Ct dical JAKE 198 [facility] 2021-07-29 2021-07-29 (TEL) STLMLC STLMLC [id number] Co mmon 00:00:00 00:00:00 [facility] 2021-07-25 2021-07-25 (TEL) STLMLC STLMLC [id number] Co mmon 00:00:00 00:00:00 [facility] 2021-07-21 2021-07-21 [facility] 1.2.840.114 [id number] Univers 13:35:00 23:59:00 Encounter [place] [facility] 350.1.13.10 ity of [place] 4.2.7.2.686 Ty as Manoj?Blea [id number] Ct dictanja thompson [address] [place] Medical Office [facility] 2021-07-21 2021-07-21 Outpatient R NILA [facility] [id number] Univers 13:35:00 23:59:00 WALLACE [facility] 2021-07-21 2021-07-21 Outpatient [facility] [id number] Univers 13:30:00 14:45:07 WALLACE ity [facility] 2021-07-21 2021-07-21 Office [facility] 1.2.484.934 [id number] Univers 13:00:10 14:45:07 Visit Wallace [facility] 350.1.13.10 it y of [place] 4.2.7.2.686 Ty as MANOJ?BLEA [id number] [address] MEDICAL OFFICE BUILDING 2021-07-21 2021-07-21 Outpatient R NILA [facility] [id number] [facility] 13:30:00 13:30:00 WALLACE chinchilla [facility] 2021-07-21 2021-07-21 (TEL) STLMLC STLMLC [id number] Co mmon 00:00:00 00:00:00 [facility] 2021-07-11 2021-07-11 (TEL) STLMLC STLMLC [id number] Co mmon 00:00:00 00:00:00 Spirit [facility] 2021-07-11 2021-07-11 OFFICE STLMLC STLMLC [id number] Co mmon 00:00:00 00:00:00 VISIT [facility] ESTAB PT - CHI LEVEL 1 [facility] 2021-07-07 2021-07-07 (TEL) STLMLC STLMLC [id number] Co mmon 00:00:00 00:00:00 Spirit [facility] 2021-06-29 2021-06-29 (TEL) STLMLC STLMLC [id number] Co mmon 00:00:00 00:00:00 Spirit [facility] 2021-06-24 2021-06-24 OFFICE STLMLC STLMLC [id number] Co mmon 00:00:00 00:00:00 VISIT [facility] ESTAB PT - CHI LEVEL 4 [facility] 2021-06-13 2021-06-13 Emergency [facility] 1.2.840.114 [id number] [facility] 14:19:00 18:37:00 Shannon Cordero 350.1.13.10 ity of [place] 4[place]2.7.2.686 [place] [id number] [address] 2021-06-06 2021-06-06 Outpatient STLMLC STLMLC [id number] Common 00:00:00 00:00:00 [facility] 2021-05-05 2021-05-05 Outpatient STLMLC STLMLC [id number] Common 00:00:00 00:00:00 [facility] 2021-04-30 2021-04-30 Outpatient STLMLC STLMLC [id number] Common 00:00:00 00:00:00 [facility] 2021-04-30 2021-04-30 Outpatient STLMLC STLMLC [id number] Common 00:00:00 00:00:00 [facility] 2021-04-25 2021-04-25 Outpatient STLMLC STLMLC [id number] Common 00:00:00 00:00:00 [facility] 2021-04-03 2021-04-03 Outpatient STLMLC STLMLC [id number] Common 00:00:00 00:00:00 [facility] 2021-03-25 2021-03-25 OFFICE STLMLC STLMLC [id number] Co mmon 00:00:00 00:00:[address] 2021-01-24 2021-01-24 Outpatient STLMLC STLMLC [id number] Common 00:00:00 00:00:00 [facility] 2021-01-17 2021-01-17 Outpatient STLMLC STLMLC [id number] Common 00:00:00 00:00:00 [facility] 2021-01-13 2021-01-13 Outpatient STLMLC STLMLC [id number] Common 00:00:00 00:00:00 [facility] 2021-01-10 2021-01-10 Outpatient STLMLC STLMLC [id number] Common 00:00:00 00:00:00 [facility] 2020-12-31 2020-12-31 Outpatient STLMLC STLMLC [id number] Common 00:00:00 00:00:00 [facility] 2020-12-25 2020-12-25 Outpatient Alec [facility] [id number] Univers 13:45:00 13:45:00 [facility] 2020-12-25 2020-12-25 Office [facility] 1.2.589.739 [id number] 12:51:24 13:25:03 Visit [facility] [id number] Surgical [id number] On License Of [facility] [id number] [address] 2020-12-23 2020-12-23 [facility] [id number] Univers 13:45:00 13:45:00 [facility] 2020-12-23 2020-12-23 Outpatient [facility]LMLC STLMLC [id number] Common 00:00:00 00:00:00 [facility] 2020-12-21 2020-12-21 Outpatient [facility]LMLC STLMLC [id number] Common 00:00:00 00:00:00 [facility] 2020-12-19 2020-12-19 Outpatient [facility] STL[facility]C [id number] Common 00:00:00 00:00:00 [facility] 2020-12-17 2020-12-17 Outpatient [facility]LML[facility] STL[facility]C [id number] Common 00:00:00 00:00:00 [facility] 2020-12-17 2020-12-17 Outpatient [facility]LMLC STLMLC [id number] Common 00:00:00 00:00:00 [facility] 2020 2020 Outpatient [facility]C STLMLC [id number] Common 00:00:00 00:00:00 [facility] 2020-12-09 2020-12-09 Outpatient [facility]LMLC STLMLC [id number] Common 00:00:00 00:00:00 [facility] 2020-11-07 2020-11-07 Outpatient [facility]LMLC STLMLC [id number] Common 00:00:00 00:00:00 [facility] 2020-11-04 2020-11-04 Outpatient [facility]LMLC STLMLC [id number] Common 00:00:00 00:00:00 [facility] 2020-11-04 2020-11-04 Outpatient [facility]LMLC STLMLC [id number] Common 00:00:00 00:00:00 [facility] 2020-10-15 2020-10-15 Outpatient SAAD, [facility] [address] [facility] 07:11:00 12:00:00 [place] 2020-09-09 2020-09-09 Outpatient STLMLC STLMLC [id number] Common 00:00:00 00:00:00 [facility] 2020-08-14 2020-08-14 Outpatient Young_J MMG MMG [id number] [place] 02:37:00 02:37:00 [facility] 2020-07-16 2020-07-16 Outpatient STLMLC STLMLC [id number] Common 00:00:00 00:00:00 [facility] 2020-07-04 2020-07-04 [facility] [id number] Univers 08:00:00 08:00:00 [facility] 2020-05-06 2020-05-06 [facility] [id number] Common 10:52:00 10:52:00 [facility] 2020-04-15 2020-04-15 [facility] [id number] Univers 15:45:00 15:45:00 [facility] 2020-04-11 2020-04-11 [facility] [id number] Univers 15:30:00 15:30:00 [facility] 2020-04-10 2020-04-10 [facility] [id number] Common 13:19:00 13:19:00 [facility] it [facility] 2020-04-08 2020-04-08 [facility] [id number] Common 11:08:00 11:08:00 [facility] it [facility] 2020-04-05 2020-04-05 [facility] [id number] Common 18:34:00 18:34:[address] [facility] 2020-03-07 2020-03-07 Outpatient R NILA, [facility] [id number] Univers 15:00:00 15:00:00 [facility] 2020-01-09 2020-01-09 [facility] [id number] Common 14:23:00 14:23:[address] [facility] 2020-01-08 2020-01-08 [facility] [id number] Common 08:00:00 08:00:[address] [facility] 2019-11-22 2019-11-22 [facility] [id number] Common 19:45:00 19:45:[address] [facility] 2019-11-08 2019-11-08 [facility] [id number] Common 09:12:00 09:12:[address] [facility] 2019-11-07 2019-11-07 [facility] [id number] Common 08:17:00 08:17:[address] [facility] 2019-10-19 2019-10-19 [facility] [id number] Common 15:57:00 15:57:[address] [facility] 2019-10-18 2019-10-18 [facility] [id number] Common 09:24:00 09:24:[address] [facility] 2019-10-17 2019-10-17 [facility] [id number] Common 09:00:00 09:00:[address] [facility] 2019-10-11 2019-10-11 Outpatient O [facility] [id number] Univers 15:30:52 15:30:[facility]-10[facility] 2019-10-09 [facility] [id number] Common 10:27:00 10:27:00 [facility] it Road [facility] 2019-10-09 2019-10-09 [facility] [id number] Common 09:00:00 09:00:00 [facility] it Road [facility] 2018-08-08 2018-08-08 Saravanan [facility] [place] - [id number] M atagor 00:00:00 00:00:00 Young, DO: [facility] [address] - [address], [facility] [address] , Ph. [phone] 2018-08-04 2018-08-04 Jose Noe [place] - [id number] M atagor 00:00:00 00:00:00 MD Bobbi: [address], [place] [phone] , Ph. 2018-07-07 2018-07-07 Jose Noe MM [place] - [id number] M atagor 00:00:00 00:00:00 MD Bobbi: [address], [place] [phone] , Ph. Results Test Description Test Time Test Comments Results Result Comments Source Transthoracic echo (TTE) 2022-08-13 22:32:11 Test Item Value Reference Range Interpretation Comme nts Height (test code = 8840792496) in Weight (test code = 1003403291) lbs Systolic BP (test code = 9513567440) mmHg Diastolic BP (test code = 3538233902) mmHg Heart Rate (test code = 7987301933) bpm BSA (test code = 8511357904) 2.06 m2 Ao root diam (test code = 8767538373) 4.10 cm Aortic root (test code = 4746679297) 4.1 cm Ao root annulus (test code = 4.1 cm 7418805158) LVOT diameter (test code = 0881774598) 2.13 cm LVOT area (test code = 0581251897) 3.60 cm2 LA size (test code = 2475696024) 2.7 cm LAV(MOD-sp4) (test code = 5821329694) 46.70 mL E wave decelartion time (test code = 0.17 s 0417834160) MV stenosis pressure 1/2 time (test 51.2 ms code = 9173823652) MV Peak A Bobby (test code = 8236613377) 65.7 cm/s MV Peak E Bobby (test code = 7758950107) 52.5 cm/s E/A ratio (test code = 9227319299) ratio MV Prop V (test code = 8278391999) 58.90 cm/s MV E/e' septal (test code = 8.6 cm/s 5753841832) Tapse (test code = 3545682385) 2.07 cm LVOT stroke volume (test code = 56.50 cm3 3352997853) LVOT peak bobby (test code = 2009186783) 83.0 cm/s LVOT mn grad (test code = 4024556832) mmHg AV LVOT peak gradient (test code = mmHg 8626240578) LVOT peak VTI (test code = 2505174475) 15.9 cm LV V1 mean (test code = 3599578500) 57.80 cm/s Aortic valve mean velocity (test code 86.0 cm/s = 7258872239) Ao peak bobby (test code = 1477810489) 113.0 cm/s Ao VTI (test code = 9064183102) 21.8 cm AV area by cont VTI (test code = 2.6 cm2 6803305660) AV area peak bobby (test code = 2.6 cm2 7006902645) Ao max PG (test code = 9984299007) 5.10 mm[Hg] AV peak gradient (test code = mmHg 4699470819) AV valve area (test code = 7823413688) 2.60 cm2 AV mean gradient (test code = mmHg 9066870299) LVIDD (test code = 0211451375) 4.80 cm Left Ventricular End Diastolic Volume 109.8 mL by Teichholz Method (test code = 7876505) IVS (test code = 7451024272) 1.03 cm Interventricular Septum Diastolic 1.03 cm Thickness by 2D (test code = 1433106) LVPWD (test code = 2096930180) 1.04 cm PW (test code = 7472123642) 1.04 cm 0.6-1.1 EF(Teich) (test code = 0507095810) 64.10 % LVIDS (test code = 7370663263) 3.20 cm Left Ventricular End Systolic Volume 39.4 mL by Teichholz Method (test code = 3528753) FS (test code = 5519478112) 35 % EF - 2D (test code = 06784740) 64.10 % Radiology Study observation (narrative) (test code = 81824-4) SOFIYA (test code = SOFIYA) ?Left?Ventricle: Left [...] mL of Lumason ultrasound enhancing agent used. [facility] GLUCOSE (AUTOMATED)2022-08-13 18:19:00 Test Item Value Reference Range Interpretation Comments POCT GLU (test code = 6715766755) 196 mg/dL 70-110 H Lab Interpretation (test code = Abnormal 46342-5) [facility] GLUCOSE (AUTOMATED)2022-08-13 13:59:31 Test Item Value Reference Range Interpretation Comments POCT GLU (test code = 8149947620) 146 mg/dL 70-110 H Lab Interpretation (test code = Abnormal 49355-7) [facility] GLUCOSE (AUTOMATED)2022-08-13 01:25:38 Test Item Value Reference Range Interpretation Comments POCT GLU (test code = 9609246305) 102 mg/dL 70-110 Lab Interpretation (test code = Normal 15865-1) [facility] 19:44:37 Test Item Value Reference Interpretation Comments Range TROPONIN I (test 0.004 ng/mL See_Comment [Automated code = 8655518906) message] The system which generated this result [...] biotin. Lab Interpretation Normal (test code = 71765-1) [facility] VPOXXTNLY5687-23-28 19:07:00 Test Item Value Reference Range Interpretation Comments Hgb A1C (test code = Hgb A1C) 6.4 [place] 241681-12-29 19:07:00 Test Item Value Reference Range Interpretation Comments Glucose Lvl (test code = Glucose Lvl) 153 70-99 [place] 241681-12-29 19:07:00 Test Item Value Reference Range Interpretation Comments BUN (test code = BUN) 18 7-22 [place] 241681-12-29 19:07:00 Test Item Value Reference Range Interpretation Comments Creatinine Lvl (test code = Creatinine 1.44 0.50-1.40 Lvl) [place] 241681-12-29 19:07:00 Test Item Value Reference Range Interpretation Comments Sodium Lvl (test code = Sodium Lvl) 132 135-145 [place] 241681-12-29 19:07:00 Test Item Value Reference Range Interpretation Comments Potassium Lvl (test code = Potassium 4.8 3.5-5.1 Lvl) [place] 241681-12-29 19:07:00 Test Item Value Reference Range Interpretation Comments Chloride Lvl (test code = Chloride Lvl) 99 95-109 [place] 241681-12-29 19:07:00 Test Item Value Reference Range Interpretation Comments CO2 (test code = CO2) 27 24-32 [place] 241681-12-29 19:07:00 Test Item Value Reference Range Interpretation Comments Calcium Lvl (test code = Calcium Lvl) 9.7 8.5-10.5 [place] 241681-12-29 19:07:00 Test Item Value Reference Range Interpretation Comments AGAP (test code = AGAP) 10.8 10.0-20.0 [place] 241681-12-29 19:07:00 Test Item Value Reference Range Interpretation Comments eGFR (test code = eGFR) 52 [place] 699001-12-29 19:07:00 Test Item Value Reference Range Interpretation Comments Segs (test code = Segs) 57.5 45.0-75.0 [place] 699001-12-29 19:07:00 Test Item Value Reference Range Interpretation Comments Lymphocytes (test code = Lymphocytes) 28.0 20.0-40.0 [place] 699001-12-29 19:07:00 Test Item Value Reference Range Interpretation Comments Monocytes (test code = Monocytes) 9.6 2.0-12.0 [facility]lakeGesrtwtRYUYEKDIFN5065-20-08 19:07:00 Test Item Value Reference Range Interpretation Comments Eosinophils (test code = 4.4 See_Comment [A utomated message] The Eosinophils) system which ge nerated this result tra nsmitted reference range : <=4.0. The reference r glenn was not used to int erpret this result as normal/abnormal . [facility]lakeYkfcfozOZVNNCMOLP8114-23-10 19:07:00 Test Item Value Reference Range Interpretation Comments Basophils (test code = 0.5 See_Comment [Aut omated message] The Basophils) system which ge nerated this result tra nsmitted reference range : <=1.0. The reference r glenn was not used to int erpret this result as normal/abnormal . [facility]lakeSiwgydhIWZABHGLYS6356-14-44 19:07:00 Test Item Value Reference Range Interpretation Comments Neutrophils # (test code = Neutrophils 3.3 1.5-8.1 #) [facility]lakeYgpyqonFQKMOADCHK8295-79-60 19:07:00 Test Item Value Reference Range Interpretation Comments Lymphocytes # (test code = Lymphocytes 1.6 1.0-5.5 #) [facility]lakeJakpygrELKUPIDVBB5919-04-91 19:07:00 Test Item Value Reference Range Interpretation Comments Monocytes # (test code 0.5 See_Comment [Aut omated message] The = Monocytes #) system which generated this result tra nsmitted reference range : <=0.8. The reference r glenn was not used to int erpret this result as normal/abnormal . [facility]lakeCtxnhnvZNLQWDUWTB9041-59-54 19:07:00 Test Item Value Reference Range Interpretation Comments Eosinophils # (test code 0.2 See_Comment [A utomated message] The = Eosinophils #) system whic h generated this result tra nsmitted reference range : <=0.5. The reference r glenn was not used to int erpret this result as normal/abnormal . [facility]lakeCxundczXFGEAWPHDV0674-84-14 19:07:00 Test Item Value Reference Range Interpretation Comments WBC (test code = WBC) 5.7 3.7-10.4 [place] 699001-12-29 19:07:00 Test Item Value Reference Range Interpretation Comments RBC (test code = RBC) 4.95 4.70-6.10 [facility] CampusOsmttixFSOXNMRCWI7615-42-60 19:07:00 Test Item Value Reference Range Interpretation Comments Hgb (test code = Hgb) 14.1 14.0-18.0 [facility] CampusXwzpmdvVBYXDRTCDL0888-30-92 19:07:00 Test Item Value Reference Range Interpretation Comments Hct (test code = Hct) 42.2 42.0-54.0 [facility]QefxgeqFJELWCGJJC0156-32-15 19:07:00 Test Item Value Reference Range Interpretation Comments MCV (test code = MCV) 85.3 80.0-94.0 [facility] CampusGfxbrarCSTGDQLPGP2367-62-26 19:07:00 Test Item Value Reference Range Interpretation Comments MCH (test code = MCH) 28.6 pg 27.0-31.0 [facility] HospitalKcwferfRQTSNJZQOZ8758-75-67 19:07:00 Test Item Value Reference Range Interpretation Comments MCHC (test code = MCHC) 33.5 32.0-36.0 [facility] HospitalHafgkpqLRFAZCRCWH4967-81-89 19:07:00 Test Item Value Reference Range Interpretation Comments RDW (test code = RDW) 14.7 11.5-14.5 [facility] CampusQprzkcaFJWGMMLNQH5185-81-28 19:07:00 Test Item Value Reference Range Interpretation Comments Platelet (test code = Platelet) 219 133-450 [facility] HospitalKsfgvmjBXURWSRKAY3305-26-54 19:07:00 Test Item Value Reference Range Interpretation Comments MPV (test code = MPV) 8.2 7.4-10.4 [facility] DFDKVSPNE8803-84-40 19:07:00 Test Item Value Reference Range Interpretation Comments Hgb A1C (test code = Hgb A1C) 6.4 [facility] LHDYU0248-28-49 19:07:00 Test Item Value Reference Range Interpretation Comments Glucose Lvl (test code = Glucose Lvl) 153 70-99 [facility] BELPR8363-68-95 19:07:00 Test Item Value Reference Range Interpretation Comments BUN (test code = BUN) 18 7-22 [facility] CZRSL6355-00-46 19:07:00 Test Item Value Reference Range Interpretation Comments Creatinine Lvl (test code = Creatinine 1.44 0.50-1.40 Lvl) [facility] SYWGC3428-03-04 19:07:00 Test Item Value Reference Range Interpretation Comments Sodium Lvl (test code = Sodium Lvl) 132 135-145 [place] 241681-12-29 19:07:00 Test Item Value Reference Range Interpretation Comments Potassium Lvl (test code = Potassium 4.8 3.5-5.1 Lvl) [place] 241681-12-29 19:07:00 Test Item Value Reference Range Interpretation Comments Chloride Lvl (test code = Chloride Lvl) 99 95-109 [place] 241681-12-29 19:07:00 Test Item Value Reference Range Interpretation Comments CO2 (test code = CO2) 27 24-32 [place] 241681-12-29 19:07:00 Test Item Value Reference Range Interpretation Comments Calcium Lvl (test code = Calcium Lvl) 9.7 8.5-10.5 [place] 241681-12-29 19:07:00 Test Item Value Reference Range Interpretation Comments AGAP (test code = AGAP) 10.8 10.0-20.0 [place] 241681-12-29 19:07:00 Test Item Value Reference Range Interpretation Comments eGFR (test code = eGFR) 52 [facility]lakeZkrjavlMTMFZHWKAR4035-80-61 19:07:00 Test Item Value Reference Range Interpretation Comments Segs (test code = Segs) 57.5 45.0-75.0 [facility]lakeXyszojcVRDKCKWZIS9493-67-73 19:07:00 Test Item Value Reference Range Interpretation Comments Lymphocytes (test code = Lymphocytes) 28.0 20.0-40.0 [place] 699001-12-29 19:07:00 Test Item Value Reference Range Interpretation Comments Monocytes (test code = Monocytes) 9.6 2.0-12.0 [place] [address]-12-29 19:07:00 Test Item Value Reference Range Interpretation Comments Eosinophils (test code = 4.4 See_Comment [A utomated message] The Eosinophils) system which ge nerated this result tra nsmitted reference range : <=4.0. The reference r glenn was not used to int erpret this result as normal/abnormal . [place] 699001-12-29 19:07:00 Test Item Value Reference Range Interpretation Comments Basophils (test code = 0.5 See_Comment [Aut omated message] The Basophils) system which ge nerated this result tra nsmitted reference range : <=1.0. The reference r glenn was not used to int erpret this result as normal/abnormal . [place] 699001-12-29 19:07:00 Test Item Value Reference Range Interpretation Comments Neutrophils # (test code = Neutrophils 3.3 1.5-8.1 #) [place] 699001-12-29 19:07:00 Test Item Value Reference Range Interpretation Comments Lymphocytes # (test code = Lymphocytes 1.6 1.0-5.5 #) [place] 699001-12-29 19:07:00 Test Item Value Reference Range Interpretation Comments Monocytes # (test code 0.5 See_Comment [Aut omated message] The = Monocytes #) system which generated this result tra nsmitted reference range : <=0.8. The reference r glenn was not used to int erpret this result as normal/abnormal . [place] 699001-12-29 19:07:00 Test Item Value Reference Range Interpretation Comments Eosinophils # (test code 0.2 See_Comment [A utomated message] The = Eosinophils #) system whic h generated this result tra nsmitted reference range : <=0.5. The reference r glenn was not used to int erpret this result as normal/abnormal . [facility]2021-12-29 19:07:00 Test Item Value Reference Range Interpretation Comments Glucose Lvl (test code = Glucose Lvl) 153 70-99 [facility]lakeQxpohmvFKYQHDXLRX3830-70-78 19:07:00 Test Item Value Reference Range Interpretation Comments WBC (test code = WBC) 5.7 3.7-10.4 [place] 699001-12-29 19:07:00 Test Item Value Reference Range Interpretation Comments RBC (test code = RBC) 4.95 4.70-6.10 [place] 241681-12-29 19:07:00 Test Item Value Reference Range Interpretation Comments Glucose Lvl (test code = Glucose Lvl) 153 70-99 [place] 241681-12-29 19:07:00 Test Item Value Reference Range Interpretation Comments BUN (test code = BUN) 18 7-22 [place] 241681-12-29 19:07:00 Test Item Value Reference Range Interpretation Comments Creatinine Lvl (test code = Creatinine 1.44 0.50-1.40 Lvl) [place] 241681-12-29 19:07:00 Test Item Value Reference Range Interpretation Comments Sodium Lvl (test code = Sodium Lvl) 132 135-145 [place] 241681-12-29 19:07:00 Test Item Value Reference Range Interpretation Comments Potassium Lvl (test code = Potassium 4.8 3.5-5.1 Lvl) [place] 241681-12-29 19:07:00 Test Item Value Reference Range Interpretation Comments Chloride Lvl (test code = Chloride Lvl) 99 95-109 [place] 241681-12-29 19:07:00 Test Item Value Reference Range Interpretation Comments CO2 (test code = CO2) 27 24-32 [place] 241681-12-29 19:07:00 Test Item Value Reference Range Interpretation Comments Calcium Lvl (test code = Calcium Lvl) 9.7 8.5-10.5 [place] 241681-12-29 19:07:00 Test Item Value Reference Range Interpretation Comments AGAP (test code = AGAP) 10.8 10.0-20.0 [place] 241681-12-29 19:07:00 Test Item Value Reference Range Interpretation Comments eGFR (test code = eGFR) 52 [facility]lakeWkopzzyCKWUWCVATI6100-08-84 19:07:00 Test Item Value Reference Range Interpretation Comments Segs (test code = Segs) 57.5 45.0-75.0 [place] 699001-12-29 19:07:00 Test Item Value Reference Range Interpretation Comments Hgb (test code = Hgb) 14.1 14.0-18.0 [place] 699001-12-29 19:07:00 Test Item Value Reference Range Interpretation Comments Lymphocytes (test code = Lymphocytes) 28.0 20.0-40.0 [place] 699001-12-29 19:07:00 Test Item Value Reference Range Interpretation Comments Monocytes (test code = Monocytes) 9.6 2.0-12.0 [place] 699001-12-29 19:07:00 Test Item Value Reference Range Interpretation Comments Eosinophils (test code = 4.4 See_Comment [A utomated message] The Eosinophils) system which ge nerated this result tra nsmitted reference range : <=4.0. The reference r glenn was not used to int erpret this result as normal/abnormal . [facility]lakeMwtdtgrGVSYQUDFBN8767-13-61 19:07:00 Test Item Value Reference Range Interpretation Comments Basophils (test code = 0.5 See_Comment [Aut omated message] The Basophils) system which ge nerated this result tra nsmitted reference range : <=1.0. The reference r glenn was not used to int erpret this result as normal/abnormal . [facility]lakeScbqsplAVKDQTTPCU7963-27-22 19:07:00 Test Item Value Reference Range Interpretation Comments Neutrophils # (test code = Neutrophils 3.3 1.5-8.1 #) [facility]lakeWxvcqomHGJDIKAXTU5358-21-29 19:07:00 Test Item Value Reference Range Interpretation Comments Lymphocytes # (test code = Lymphocytes 1.6 1.0-5.5 #) [facility]lakeDwretapMXSTAYRUSU8497-17-74 19:07:00 Test Item Value Reference Range Interpretation Comments Monocytes # (test code 0.5 See_Comment [Aut omated message] The = Monocytes #) system which generated this result tra nsmitted reference range : <=0.8. The reference r glenn was not used to int erpret this result as normal/abnormal . [facility]lakeIhbcerwYTKLNIZEBK6177-20-42 19:07:00 Test Item Value Reference Range Interpretation Comments Eosinophils # (test code 0.2 See_Comment [A utomated message] The = Eosinophils #) system whic h generated this result tra nsmitted reference range : <=0.5. The reference r glenn was not used to int erpret this result as normal/abnormal . [facility]lakeBuffcbyCMOGPQJRMQ7815-22-04 19:07:00 Test Item Value Reference Range Interpretation Comments WBC (test code = WBC) 5.7 3.7-10.4 [facility]lakeGgxvhvyBPJWLCJZMC2044-56-71 19:07:00 Test Item Value Reference Range Interpretation Comments RBC (test code = RBC) 4.95 4.70-6.10 [place] 699001-12-29 19:07:00 Test Item Value Reference Range Interpretation Comments Hgb (test code = Hgb) 14.1 14.0-18.0 [place] 699001-12-29 19:07:00 Test Item Value Reference Range Interpretation Comments Hct (test code = Hct) 42.2 42.0-54.0 [facility] CampusBssainqNAKQIYFEZO6649-03-63 19:07:00 Test Item Value Reference Range Interpretation Comments MCV (test code = MCV) 85.3 80.0-94.0 [facility] CampusHkgdgiqULTVQKEJXP7251-71-60 19:07:00 Test Item Value Reference Range Interpretation Comments MCH (test code = MCH) 28.6 pg 27.0-31.0 [facility] HospitalGppzajqIAQJIMKPJR1602-18-21 19:07:00 Test Item Value Reference Range Interpretation Comments MCHC (test code = MCHC) 33.5 32.0-36.0 [facility] HospitalNixqzwwIEWZOEIGCD5452-79-11 19:07:00 Test Item Value Reference Range Interpretation Comments RDW (test code = RDW) 14.7 11.5-14.5 [facility] HospitalPypusnoUOSSZNEBZD7217-66-41 19:07:00 Test Item Value Reference Range Interpretation Comments Platelet (test code = Platelet) 219 133-450 [facility] HospitalXixeulpOITXKHQDOU7297-97-09 19:07:00 Test Item Value Reference Range Interpretation Comments MPV (test code = MPV) 8.2 7.4-10.4 [facility] ISPWFYNGP8380-71-95 19:07:00 Test Item Value Reference Range Interpretation Comments Hgb A1C (test code = Hgb A1C) 6.4 [facility] HospitalGxgtgpqABDLWMPIGZ7844-95-96 19:07:00 Test Item Value Reference Range Interpretation Comments Hct (test code = Hct) 42.2 42.0-54.0 [facility] CampusRlpmuueRGELBXQDSS1403-04-96 19:07:00 Test Item Value Reference Range Interpretation Comments MCV (test code = MCV) 85.3 80.0-94.0 [facility] HospitalKlqnwnlBWISHAYRPA7709-81-94 19:07:00 Test Item Value Reference Range Interpretation Comments MCH (test code = MCH) 28.6 pg 27.0-31.0 [facility] HospitalRwfphpkHKPUVCXSOL8868-81-44 19:07:00 Test Item Value Reference Range Interpretation Comments MCHC (test code = MCHC) 33.5 32.0-36.0 [facility] HospitalEopnoeuEAPEWOQXDK5771-12-34 19:07:00 Test Item Value Reference Range Interpretation Comments RDW (test code = RDW) 14.7 11.5-14.5 [facility] HospitalIydfxqnONHUXOPVJN7194-77-55 19:07:00 Test Item Value Reference Range Interpretation Comments Platelet (test code = Platelet) 219 133-450 [facility] HospitalWlxpnjsBAWSDNIFVU7852-40-22 19:07:00 Test Item Value Reference Range Interpretation Comments MPV (test code = MPV) 8.2 7.4-10.4 [facility] PWSLE5406-50-26 19:07:00 Test Item Value Reference Range Interpretation Comments BUN (test code = BUN) 18 04-17 [facility] XBSCDBLQY0380-22-75 19:07:00 Test Item Value Reference Range Interpretation Comments Hgb A1C (test code = Hgb A1C) 6.4 [facility]2021-12-29 19:07:00 Test Item Value Reference Range Interpretation Comments Creatinine Lvl (test code = Creatinine 1.44 0.50-1.40 Lvl) [facility]2021-12-29 19:07:00 Test Item Value Reference Range Interpretation Comments Sodium Lvl (test code = Sodium Lvl) 132 135-145 [facility]2021-12-29 19:07:00 Test Item Value Reference Range Interpretation Comments Glucose Lvl (test code = Glucose Lvl) 153 70-99 [facility]2021-12-29 19:07:00 Test Item Value Reference Range Interpretation Comments BUN (test code = BUN) 18 04-17 [facility]2021-12-29 19:07:00 Test Item Value Reference Range Interpretation Comments Creatinine Lvl (test code = Creatinine 1.44 0.50-1.40 Lvl) [facility] [id number] 19:07:00 Test Item Value Reference Range Interpretation Comments Sodium Lvl (test code = Sodium Lvl) 132 135-145 [facility] [id number] 19:07:00 Test Item Value Reference Range Interpretation Comments Potassium Lvl (test code = Potassium 4.8 3.5-5.1 Lvl) [facility]2021-12-29 19:07:00 Test Item Value Reference Range Interpretation Comments Potassium Lvl (test code = Potassium 4.8 3.5-5.1 Lvl) [facility]2021-12-29 19:07:00 Test Item Value Reference Range Interpretation Comments Chloride Lvl (test code = Chloride Lvl) 99 95-109 [place] 241681-12-29 19:07:00 Test Item Value Reference Range Interpretation Comments CO2 (test code = CO2) 27 24-32 [place] 241681-12-29 19:07:00 Test Item Value Reference Range Interpretation Comments Calcium Lvl (test code = Calcium Lvl) 9.7 8.5-10.5 [place] 241681-12-29 19:07:00 Test Item Value Reference Range Interpretation Comments AGAP (test code = AGAP) 10.8 10.0-20.0 [place] 241681-12-29 19:07:00 Test Item Value Reference Range Interpretation Comments eGFR (test code = eGFR) 52 [place] 699001-12-29 19:07:00 Test Item Value Reference Range Interpretation Comments Segs (test code = Segs) 57.5 45.0-75.0 [place] 699001-12-29 19:07:00 Test Item Value Reference Range Interpretation Comments Lymphocytes (test code = Lymphocytes) 28.0 20.0-40.0 [place] 699001-12-29 19:07:00 Test Item Value Reference Range Interpretation Comments Monocytes (test code = Monocytes) 9.6 2.0-12.0 [place] 699001-12-29 19:07:00 Test Item Value Reference Range Interpretation Comments Eosinophils (test code = 4.4 See_Comment [A utomated message] The Eosinophils) system which ge nerated this result tra nsmitted reference range : <=4.0. The reference r glenn was not used to int erpret this result as normal/abnormal . [place] 241681-12-29 19:07:00 Test Item Value Reference Range Interpretation Comments Chloride Lvl (test code = Chloride Lvl) 99 95-109 [place] 699001-12-29 19:07:00 Test Item Value Reference Range Interpretation Comments Basophils (test code = 0.5 See_Comment [Aut omated message] The Basophils) system which ge nerated this result tra nsmitted reference range : <=1.0. The reference r glenn was not used to int erpret this result as normal/abnormal . [facility]DunpmqwJWXQNWAQVC9466-59-01 19:07:00 Test Item Value Reference Range Interpretation Comments Neutrophils # (test code = Neutrophils 3.3 1.5-8.1 #) [facility]lakeLmqtlsuYXUNXFJYHF5298-64-69 19:07:00 Test Item Value Reference Range Interpretation Comments Lymphocytes # (test code = Lymphocytes 1.6 1.0-5.5 #) [facility]lakeLbovogjRETMFJHZKA7036-46-36 19:07:00 Test Item Value Reference Range Interpretation Comments Monocytes # (test code 0.5 See_Comment [Aut omated message] The = Monocytes #) system which generated this result tra nsmitted reference range : <=0.8. The reference r glenn was not used to int erpret this result as normal/abnormal . [facility]lakeIbesadlFCRBKABIZX3137-09-96 19:07:00 Test Item Value Reference Range Interpretation Comments Eosinophils # (test code 0.2 See_Comment [A utomated message] The = Eosinophils #) system whic h generated this result tra nsmitted reference range : <=0.5. The reference r glenn was not used to int erpret this result as normal/abnormal . [facility]lakeHufgfncQAWMUVZRLZ6829-12-74 19:07:00 Test Item Value Reference Range Interpretation Comments WBC (test code = WBC) 5.7 3.7-10.4 [facility]lakeNeqgtviQEAEOAUZIV6619-97-93 19:07:00 Test Item Value Reference Range Interpretation Comments RBC (test code = RBC) 4.95 4.70-6.10 [facility]lakeZtkaihvFJPSQWGEXT5223-60-68 19:07:00 Test Item Value Reference Range Interpretation Comments Hgb (test code = Hgb) 14.1 14.0-18.0 [facility]lakeStulndiEWPZMCAMOG4096-92-28 19:07:00 Test Item Value Reference Range Interpretation Comments Hct (test code = Hct) 42.2 42.0-54.0 [place] 699001-12-29 19:07:00 Test Item Value Reference Range Interpretation Comments MCV (test code = MCV) 85.3 80.0-94.0 [facility]2021-12-29 19:07:00 Test Item Value Reference Range Interpretation Comments CO2 (test code = CO2) 27 24-32 [facility]lakeNxhlnnnNYLNJDFIOI0342-60-08 19:07:00 Test Item Value Reference Range Interpretation Comments MCH (test code = MCH) 28.6 pg 27.0-31.0 [facility]BpdbymfVJJGFCEJCM1591-45-05 19:07:00 Test Item Value Reference Range Interpretation Comments MCHC (test code = MCHC) 33.5 32.0-36.0 [facility]VfnzxlcWGDTEDJCOX7604-30-48 19:07:00 Test Item Value Reference Range Interpretation Comments RDW (test code = RDW) 14.7 11.5-14.5 [facility]linePluzyyaQDKKDVJAUQ2622-07-13 19:07:00 Test Item Value Reference Range Interpretation Comments Platelet (test code = Platelet) 219 133-450 [facility] CampusVucbzzoKTGQGUIJLT5725-28-41 19:07:00 Test Item Value Reference Range Interpretation Comments MPV (test code = MPV) 8.2 7.4-10.4 [facility] [id number] 19:07:00 Test Item Value Reference Range Interpretation Comments Hgb A1C (test code = Hgb A1C) 6.4 [facility] [id number] 19:07:00 Test Item Value Reference Range Interpretation Comments Calcium Lvl (test code = Calcium Lvl) 9.7 8.5-10.5 [facility] [id number] 19:07:00 Test Item Value Reference Range Interpretation Comments AGAP (test code = AGAP) 10.8 10.0-20.0 [facility] [id number] 19:07:00 Test Item Value Reference Range Interpretation Comments eGFR (test code = eGFR) 52 [facility] CampusKpfidzfFHULFUXICK6833-71-22 19:07:00 Test Item Value Reference Range Interpretation Comments Segs (test code = Segs) 57.5 45.0-75.0 [facility] [id number] 19:07:00 Test Item Value Reference Range Interpretation Comments Glucose Lvl (test code = Glucose Lvl) 153 70-99 [facility] [id number] 19:07:00 Test Item Value Reference Range Interpretation Comments BUN (test code = BUN) 18 7-22 [facility] CampusDes[facility] [id number] 19:07:00 Test Item Value Reference Range Interpretation Comments Creatinine Lvl (test code = Creatinine 1.44 0.50-1.40 Lvl) [place] 241681-12-29 19:07:00 Test Item Value Reference Range Interpretation Comments Sodium Lvl (test code = Sodium Lvl) 132 135-145 [place] 241681-12-29 19:07:00 Test Item Value Reference Range Interpretation Comments Potassium Lvl (test code = Potassium 4.8 3.5-5.1 Lvl) [place] 241681-12-29 19:07:00 Test Item Value Reference Range Interpretation Comments Chloride Lvl (test code = Chloride Lvl) 99 95-109 [place] 241681-12-29 19:07:00 Test Item Value Reference Range Interpretation Comments CO2 (test code = CO2) 27 24-32 [place] 241681-12-29 19:07:00 Test Item Value Reference Range Interpretation Comments Calcium Lvl (test code = Calcium Lvl) 9.7 8.5-10.5 [place] 241681-12-29 19:07:00 Test Item Value Reference Range Interpretation Comments AGAP (test code = AGAP) 10.8 10.0-20.0 [place] 241681-12-29 19:07:00 Test Item Value Reference Range Interpretation Comments eGFR (test code = eGFR) 52 [place] 699001-12-29 19:07:00 Test Item Value Reference Range Interpretation Comments Lymphocytes (test code = Lymphocytes) 28.0 20.0-40.0 [place] [address]-12-29 19:07:00 Test Item Value Reference Range Interpretation Comments Segs (test code = Segs) 57.5 45.0-75.0 [place] 699001-12-29 19:07:00 Test Item Value Reference Range Interpretation Comments Lymphocytes (test code = Lymphocytes) 28.0 20.0-40.0 [place] [address]-12-29 19:07:00 Test Item Value Reference Range Interpretation Comments Monocytes (test code = Monocytes) 9.6 2.0-12.0 [place] [address]-12-29 19:07:00 Test Item Value Reference Range Interpretation Comments Eosinophils (test code = 4.4 See_Comment [A utomated message] The Eosinophils) system which ge nerated this result tra nsmitted reference range : <=4.0. The reference r glenn was not used to int erpret this result as normal/abnormal . [facility]lakeYrnffhzVCZHNVHXFP5812-47-75 19:07:00 Test Item Value Reference Range Interpretation Comments Basophils (test code = 0.5 See_Comment [Aut omated message] The Basophils) system which ge nerated this result tra nsmitted reference range : <=1.0. The reference r glenn was not used to int erpret this result as normal/abnormal . [facility]lakeSdpimnrTPGWOJMOEG9545-57-39 19:07:00 Test Item Value Reference Range Interpretation Comments Neutrophils # (test code = Neutrophils 3.3 1.5-8.1 #) [facility]lakeOtppdtvHOYWTJBPIV2015-85-35 19:07:00 Test Item Value Reference Range Interpretation Comments Lymphocytes # (test code = Lymphocytes 1.6 1.0-5.5 #) [facility]lakeGslddzhLHCWYYXZKO0225-69-61 19:07:00 Test Item Value Reference Range Interpretation Comments Monocytes # (test code 0.5 See_Comment [Aut omated message] The = Monocytes #) system which generated this result tra nsmitted reference range : <=0.8. The reference r glenn was not used to int erpret this result as normal/abnormal . [facility]lakeCvvzprbAHZMIPOFXK1604-97-01 19:07:00 Test Item Value Reference Range Interpretation Comments Eosinophils # (test code 0.2 See_Comment [A utomated message] The = Eosinophils #) system whic h generated this result tra nsmitted reference range : <=0.5. The reference r glenn was not used to int erpret this result as normal/abnormal . [facility]lakeMkomtyuUTMJZXEULX8045-13-35 19:07:00 Test Item Value Reference Range Interpretation Comments WBC (test code = WBC) 5.7 3.7-10.4 [facility]lakeKdlygptBPTQAEBLIN8038-64-02 19:07:00 Test Item Value Reference Range Interpretation Comments Monocytes (test code = Monocytes) 9.6 2.0-12.0 [place] 699001-12-29 19:07:00 Test Item Value Reference Range Interpretation Comments RBC (test code = RBC) 4.95 4.70-6.10 [facility]lakeAbimsorVJPWEXAOQR4735-13-32 19:07:00 Test Item Value Reference Range Interpretation Comments Hgb (test code = Hgb) 14.1 14.0-18.0 [facility] CampusFhaabinDUECAEGXYR2014-46-36 19:07:00 Test Item Value Reference Range Interpretation Comments Hct (test code = Hct) 42.2 42.0-54.0 [facility] HospitalYfpbkzmQNYBRAMZBF0407-12-22 19:07:00 Test Item Value Reference Range Interpretation Comments MCV (test code = MCV) 85.3 80.0-94.0 [facility] HospitalWpqmojhBLHGUUCJXV1799-97-57 19:07:00 Test Item Value Reference Range Interpretation Comments MCH (test code = MCH) 28.6 pg 27.0-31.0 [facility] CampusGgqmfqgDNFPYMCXVM4663-23-35 19:07:00 Test Item Value Reference Range Interpretation Comments MCHC (test code = MCHC) 33.5 32.0-36.0 [facility] HospitalVlaficcPVEBZLHIRQ0597-06-77 19:07:00 Test Item Value Reference Range Interpretation Comments RDW (test code = RDW) 14.7 11.5-14.5 [facility] HospitalRsxyidjRLSYGESMHP2392-06-70 19:07:00 Test Item Value Reference Range Interpretation Comments Platelet (test code = Platelet) 219 133-450 [facility] HospitalIdfllptJOHBRKLHOY7607-56-61 19:07:00 Test Item Value Reference Range Interpretation Comments MPV (test code = MPV) 8.2 7.4-10.4 [facility] ZBYIKYXGN2713-09-99 19:07:00 Test Item Value Reference Range Interpretation Comments Hgb A1C (test code = Hgb A1C) 6.4 [facility] HospitalJrjrbovPUOTTTBATJ1393-95-55 19:07:00 Test Item Value Reference Range Interpretation Comments Eosinophils (test code = 4.4 See_Comment [A utomated message] The Eosinophils) system which nerated this result tra nsmitted reference range : <=4.0. The reference r glenn was not used to int erpret this result as normal/abnormal . [facility]lakeGijjilfUXTCKGTCRY6121-13-47 19:07:00 Test Item Value Reference Range Interpretation Comments Basophils (test code = 0.5 See_Comment [Aut omated message] The Basophils) system which ge nerated this result tra nsmitted reference range : <=1.0. The reference r glenn was not used to int erpret this result as normal/abnormal . [facility]lakeFnscvsoKAVGGPNUAY2503-46-96 19:07:00 Test Item Value Reference Range Interpretation Comments Neutrophils # (test code = Neutrophils 3.3 1.5-8.1 #) [facility]lakeTysanspELWFQWKLPX0903-94-46 19:07:00 Test Item Value Reference Range Interpretation Comments Lymphocytes # (test code = Lymphocytes 1.6 1.0-5.5 #) [facility]lakeVsjosmmKYZNKATVBG4074-96-98 19:07:00 Test Item Value Reference Range Interpretation Comments Monocytes # (test code 0.5 See_Comment [Aut omated message] The = Monocytes #) system which generated this result tra nsmitted reference range : <=0.8. The reference r glenn was not used to int erpret this result as normal/abnormal . [facility]lakeZusxzqcTJTKLQXLZC0788-08-48 19:07:00 Test Item Value Reference Range Interpretation Comments Eosinophils # (test code 0.2 See_Comment [A utomated message] The = Eosinophils #) system whic h generated this result tra nsmitted reference range : <=0.5. The reference r glenn was not used to int erpret this result as normal/abnormal . [facility]lakeYlrojatJYXUMGGTAI7793-37-17 19:07:00 Test Item Value Reference Range Interpretation Comments WBC (test code = WBC) 5.7 3.7-10.4 [facility]lakeFbsxkoaVPQXQRQUFF8103-03-60 19:07:00 Test Item Value Reference Range Interpretation Comments RBC (test code = RBC) 4.95 4.70-6.10 [place] 699001-12-29 19:07:00 Test Item Value Reference Range Interpretation Comments Hgb (test code = Hgb) 14.1 14.0-18.0 [place] 699001-12-29 19:07:00 Test Item Value Reference Range Interpretation Comments Hct (test code = Hct) 42.2 42.0-54.0 [place] 699001-12-29 19:07:00 Test Item Value Reference Range Interpretation Comments MCV (test code = MCV) 85.3 80.0-94.0 [place] 699001-12-29 19:07:00 Test Item Value Reference Range Interpretation Comments MCH (test code = MCH) 28.6 pg 27.0-31.0 [place] 699001-12-29 19:07:00 Test Item Value Reference Range Interpretation Comments MCHC (test code = MCHC) 33.5 32.0-36.0 [facility] HospitalXfrtrhdPFNHZHDCKS3470-62-76 19:07:00 Test Item Value Reference Range Interpretation Comments RDW (test code = RDW) 14.7 11.5-14.5 [facility] CampusVzbrplnSISZMMDOQR7625-05-77 19:07:00 Test Item Value Reference Range Interpretation Comments Platelet (test code = Platelet) 219 133-450 [facility] HospitalCwzymhgNHRNNXVQTB4573-40-34 19:07:00 Test Item Value Reference Range Interpretation Comments MPV (test code = MPV) 8.2 7.4-10.4 [facility] LAQFDQZCR5681-41-63 19:07:00 Test Item Value Reference Range Interpretation Comments Hgb A1C (test code = Hgb A1C) 6.4 [facility] [id number] 19:07:00 Test Item Value Reference Range Interpretation Comments Glucose Lvl (test code = Glucose Lvl) 153 70-99 [facility]2021-12-29 19:07:00 Test Item Value Reference Range Interpretation Comments BUN (test code = BUN) 18 7-22 [facility]2021-12-29 19:07:00 Test Item Value Reference Range Interpretation Comments Creatinine Lvl (test code = Creatinine 1.44 0.50-1.40 Lvl) [facility]2021-12-29 19:07:00 Test Item Value Reference Range Interpretation Comments Sodium Lvl (test code = Sodium Lvl) 132 135-145 [facility]2021-12-29 19:07:00 Test Item Value Reference Range Interpretation Comments Potassium Lvl (test code = Potassium 4.8 3.5-5.1 Lvl) [facility] [id number] 19:07:00 Test Item Value Reference Range Interpretation Comments Chloride Lvl (test code = Chloride Lvl) 99 95-109 [facility]2021-12-29 19:07:00 Test Item Value Reference Range Interpretation Comments CO2 (test code = CO2) 27 24-32 [facility] [id number] 19:07:00 Test Item Value Reference Range Interpretation Comments Calcium Lvl (test code = Calcium Lvl) 9.7 8.5-10.5 [facility]2021-12-29 19:07:00 Test Item Value Reference Range Interpretation Comments AGAP (test code = AGAP) 10.8 10.0-20.0 [place] 241681-12-29 19:07:00 Test Item Value Reference Range Interpretation Comments eGFR (test code = eGFR) 52 [place] 699001-12-29 19:07:00 Test Item Value Reference Range Interpretation Comments Segs (test code = Segs) 57.5 45.0-75.0 [place] 699001-12-29 19:07:00 Test Item Value Reference Range Interpretation Comments Lymphocytes (test code = Lymphocytes) 28.0 20.0-40.0 [place] 699001-12-29 19:07:00 Test Item Value Reference Range Interpretation Comments Monocytes (test code = Monocytes) 9.6 2.0-12.0 [place] 699001-12-29 19:07:00 Test Item Value Reference Range Interpretation Comments Eosinophils (test code = 4.4 See_Comment [A utomated message] The Eosinophils) system which ge nerated this result tra nsmitted reference range : <=4.0. The reference r glenn was not used to int erpret this result as normal/abnormal . [place] 699001-12-29 19:07:00 Test Item Value Reference Range Interpretation Comments Basophils (test code = 0.5 See_Comment [Aut omated message] The Basophils) system which ge nerated this result tra nsmitted reference range : <=1.0. The reference r glenn was not used to int erpret this result as normal/abnormal . [facility]lakeVfijskbHUMGRSYBHM4865-01-39 19:07:00 Test Item Value Reference Range Interpretation Comments Neutrophils # (test code = Neutrophils 3.3 1.5-8.1 #) [place] 699001-12-29 19:07:00 Test Item Value Reference Range Interpretation Comments Lymphocytes # (test code = Lymphocytes 1.6 1.0-5.5 #) [place] 699001-12-29 19:07:00 Test Item Value Reference Range Interpretation Comments Monocytes # (test code 0.5 See_Comment [Aut omated message] The = Monocytes #) system which generated this result tra nsmitted reference range : <=0.8. The reference r glenn was not used to int erpret this result as normal/abnormal . [facility]lakeYcnrhmjJYSPWGLRPW0513-06-56 19:07:00 Test Item Value Reference Range Interpretation Comments Eosinophils # (test code 0.2 See_Comment [A utomated message] The = Eosinophils #) system whic h generated this result tra nsmitted reference range : <=0.5. The reference r glenn was not used to int erpret this result as normal/abnormal . [facility]lakeDhikazrPLDTOAJURO3292-12-04 19:07:00 Test Item Value Reference Range Interpretation Comments WBC (test code = WBC) 5.7 3.7-10.4 [facility]lakeDkzwlrrRLZPJGHSHZ5870-14-29 19:07:00 Test Item Value Reference Range Interpretation Comments RBC (test code = RBC) 4.95 4.70-6.10 [place] 699001-12-29 19:07:00 Test Item Value Reference Range Interpretation Comments Hgb (test code = Hgb) 14.1 14.0-18.0 [facility]lakeSweduvdQHAVPQLSEG2261-87-49 19:07:00 Test Item Value Reference Range Interpretation Comments Hct (test code = Hct) 42.2 42.0-54.0 [facility]lakeYfatyatGAINUHTEJT3990-04-72 19:07:00 Test Item Value Reference Range Interpretation Comments MCV (test code = MCV) 85.3 80.0-94.0 [facility]lakeCspnamtCANLHSWNTC3355-86-75 19:07:00 Test Item Value Reference Range Interpretation Comments MCH (test code = MCH) 28.6 pg 27.0-31.0 [facility]lakeMqvuryuINZZTCSQEB0065-11-91 19:07:00 Test Item Value Reference Range Interpretation Comments MCHC (test code = MCHC) 33.5 32.0-36.0 [facility]lakeEgyflqxXGKOWZISTX2996-33-71 19:07:00 Test Item Value Reference Range Interpretation Comments RDW (test code = RDW) 14.7 11.5-14.5 [facility]lakeImmmbvjFFEYPONQGP7038-88-44 19:07:00 Test Item Value Reference Range Interpretation Comments Platelet (test code = Platelet) 219 133-450 [facility] SouthlakeIjbiuoaJLRIMRCJAE0265-30-46 19:07:00 Test Item Value Reference Range Interpretation Comments MPV (test code = MPV) 8.2 7.4-10.4 [facility] XOLMBUKGM2742-41-46 19:07:00 Test Item Value Reference Range Interpretation Comments Hgb A1C (test code = Hgb A1C) 6.4 [facility] RJIQS2262-28-62 19:07:00 Test Item Value Reference Range Interpretation Comments Glucose Lvl (test code = Glucose Lvl) 153 70-99 [facility]2021-12-29 19:07:00 Test Item Value Reference Range Interpretation Comments BUN (test code = BUN) 18 7-22 [facility]2021-12-29 19:07:00 Test Item Value Reference Range Interpretation Comments Creatinine Lvl (test code = Creatinine 1.44 0.50-1.40 Lvl) [facility]2021-12-29 19:07:00 Test Item Value Reference Range Interpretation Comments Sodium Lvl (test code = Sodium Lvl) 132 135-145 [facility]2021-12-29 19:07:00 Test Item Value Reference Range Interpretation Comments Potassium Lvl (test code = Potassium 4.8 3.5-5.1 Lvl) [facility]2021-12-29 19:07:00 Test Item Value Reference Range Interpretation Comments Chloride Lvl (test code = Chloride Lvl) 99 95-109 [facility]2021-12-29 19:07:00 Test Item Value Reference Range Interpretation Comments CO2 (test code = CO2) 27 24-32 [facility]2021-12-29 19:07:00 Test Item Value Reference Range Interpretation Comments Calcium Lvl (test code = Calcium Lvl) 9.7 8.5-10.5 [facility]2021-12-29 19:07:00 Test Item Value Reference Range Interpretation Comments AGAP (test code = AGAP) 10.8 10.0-20.0 [facility]2021-12-29 19:07:00 Test Item Value Reference Range Interpretation Comments eGFR (test code = eGFR) 52 [facility] HospitalUdwmxhxKYJUAUILLI9546-51-91 19:07:00 Test Item Value Reference Range Interpretation Comments Segs (test code = Segs) 57.5 45.0-75.0 [facility] HospitalPjmgeouPMZFNUZVCP6820-88-68 19:07:00 Test Item Value Reference Range Interpretation Comments Lymphocytes (test code = Lymphocytes) 28.0 20.0-40.0 [facility]lakeMvxmfwsSFEEFCQLKI7634-55-35 19:07:00 Test Item Value Reference Range Interpretation Comments Monocytes (test code = Monocytes) 9.6 2.0-12.0 [id number] 19:07:00 Test Item Value Reference Range Interpretation Comments Eosinophils (test code = 4.4 See_Comment [A utomated message] The Eosinophils) system which ge nerated this result tra nsmitted reference range : <=4.0. The reference r glenn was not used to int erpret this result as normal/abnormal . [id number] 19:07:00 Test Item Value Reference Range Interpretation Comments Basophils (test code = 0.5 See_Comment [Aut omated message] The Basophils) system which ge nerated this result tra nsmitted reference range : <=1.0. The reference r glenn was not used to int erpret this result as normal/abnormal . [id number] 19:07:00 Test Item Value Reference Range Interpretation Comments Neutrophils # (test code = Neutrophils 3.3 1.5-8.1 #) [facility]la[id number] 19:07:00 Test Item Value Reference Range Interpretation Comments Lymphocytes # (test code = Lymphocytes 1.6 1.0-5.5 #) [facility]la[id number] 19:07:00 Test Item Value Reference Range Interpretation Comments Monocytes # (test code 0.5 See_Comment [Aut omated message] The = Monocytes #) system which generated this result tra nsmitted reference range : <=0.8. The reference r glenn was not used to int erpret this result as normal/abnormal . [id number] 19:07:00 Test Item Value Reference Range Interpretation Comments Eosinophils # (test code 0.2 See_Comment [A utomated message] The = Eosinophils #) system whic h generated this result tra nsmitted reference range : <=0.5. The reference r glenn was not used to int erpret this result as normal/abnormal . [id number] 19:07:00 Test Item Value Reference Range Interpretation Comments WBC (test code = WBC) 5.7 3.7-10.4 [facility]la[id number] 19:07:00 Test Item Value Reference Range Interpretation Comments RBC (test code = RBC) 4.95 4.70-6.10 [facility]lakeGgniezhFEDSEZXKBY9205-53-02 19:07:00 Test Item Value Reference Range Interpretation Comments Hgb (test code = Hgb) 14.1 14.0-18.0 [facility]lakeCwcckhlWOSUKFIUNC6719-01-78 19:07:00 Test Item Value Reference Range Interpretation Comments Hct (test code = Hct) 42.2 42.0-54.0 [id number] 19:07:00 Test Item Value Reference Range Interpretation Comments MCV (test code = MCV) 85.3 80.0-94.0 [facility]lakeGjecubsRQOHSAWEDP1301-07-03 19:07:00 Test Item Value Reference Range Interpretation Comments MCH (test code = MCH) 28.6 pg 27.0-31.0 [facility]lakeVxtxpvgGERFTPZXWF7595-01-13 19:07:00 Test Item Value Reference Range Interpretation Comments MCHC (test code = MCHC) 33.5 32.0-36.0 [id number] 19:07:00 Test Item Value Reference Range Interpretation Comments RDW (test code = RDW) 14.7 11.5-14.5 [id number] 19:07:00 Test Item Value Reference Range Interpretation Comments Platelet (test code = Platelet) 219 133-450 [id number] 19:07:00 Test Item Value Reference Range Interpretation Comments MPV (test code = MPV) 8.2 7.4-10.4 [facility] AntigenSARS-COV 2 Antigen Notes Date/Time Note Provider Source 2020-10-15 EXAM: CT MYELOGRAM LUMBAR SPINE [facility] 10:19:00-00:00 DATE: 10/15/2020 Center INDICATION: 'Radiculopathy. - Back pain.' COMPARISON: CT abdomen pelvis 03/18/2011 TECHNIQUE: TECHNIQUE: Volume tric CT of the lumbar spine is acquired with axial, coronal and sagittal reconstructions. Intrathecal contrast was administered prior to the examination. Please see corresponding report for details. DLP: 919 mGy-cm FINDINGS: Partially visualized spinal cord stimulator enters the dorsal epidural space through T12-L1 and is noted to travel superiorly to the level of highest vertebral body imaged on the current scan (T10). Numbering: The inferior most lumbar type vertebr al body is referred to as L5. Alignment: The normal lumbar lordosis is preserv ed. No spondylolisthesis. Bones: Posterior spinal inst rumentation with interpedicular rods and screws are noted at L4 and L5 vertebral bodies with no evidence of orthopedic hardware complication. There is also intervertebral dis c cage at the level of L4-L5 . Bone cement is noted in L1 vertebral body mild with vertebral body height loss. There are multilevel degenerative changes including diffuse osteopenia, endplate sclerosis/i rregularities, bridging ante rior osteophytes through T10-L4 and squaring of the spinous processes with fusion at some levels. Conus medullaris: Normal in size. Terminates at L1. Cauda equina and nerve roots: Also normal in siz e. Level by level analysis as follows: * T12-L1: Osseous fusion. No spinal canal or neural foraminal narrowing. The spinal cord stimulator enters at this level. * L1-L2: Unremarkable.. * L2-L3: Vacuum disc phenome na with disc bulge and facet hypertrophy. No spinal canal or foraminal stenosis. * L3-L4: No disc bulge or he rniation. Osseous fusion anteriorly. Facet arthropathy, more severe on the right side resulting in moderate right neural foraminal narrowing and causing mass effect on the exiting L3 nerve root. No spinal canal narrowing. * L4-L5: Intervertebral body cage and posterior fusion with complete osseous fusion. No spinal canal narrowing. Zado-ky-yealcriu bilateral neural foraminal narrowing. * L5-S1: Fusion of the inter vertebral disc space. No disc herniation. Bilateral facet fusion with bone growth that results in neural foraminal narrowing bilaterally, but more pronounced on the right with mass effect on exiting L5 nerve roots. Incidental note of inferior vena cava filter and diffuse atherosclerotic changes. IMPRESSION: 1. Successful CT myelogram of the lumbar spine. 2. Rigid spine with multilev el fusion, which includes the surgically fused L4- L5 level. While both adjacent levels (and facets) are also fused, advanced adjacent segment facet arthrosis results in right L3-L4 neural foraminal narr owing and exiting L3 nerve root abutment as well as bilateral L5-S1 neural foraminal narrowing and exiting L5 nerve root abutment. 3. L1 vertebroplasty, with mild height loss that is likely chronic. 4. Partially imaged spinal c ord stimulator that enters the spinal canal at T12- L1 and continues in the dorsal epidural space and continues to around T11-T12. 2020-10-15 EXAM: FLUOROSCOPY-GUIDED LUMBAR PUNCTURE FOR CT MYELOGRAM [facility] 08:31:14-00:00 DATE: 10/15/2020 Center INDICATION: 'Radiculopathy. - Back pain.' ADDITIONAL INFORMATION: None COMPARISON: None. TECHNIQUE AND FINDINGS: Consent: Informed written an d verbal consent were obtained from the patient. The benefits, risks, and alternatives to the procedure were explained and all questions were answered. Procedure setup: The patient was then brought to the fluoroscopy room, placed on the fluoroscopy table. Prior to beginning the procedure, 'time-out' was performed under the universal protocol with 2 pat ient identifiers establishin g the correct patient, verifying the correct procedure, correct side and site, correct patient position, and correct equipment. The appropriate level was localized using fluo roscopic guidance. The lower back was prepped and draped in the usual sterile fashion. Procedure: Under fluoroscopi c guidance a spinal needle was advanced into the thecal sac and contrast was instilled without resistance or complication. The needle was removed and a Band-Aid was placed. Procedure details: - Level: L2-L3 interlaminar space - Needle gauge: 22 - Needle length: 5 in - CSF volume: 3 mL - Type of contrast: Omnipaque 180 - Volume of contrast: 10 mL - Patient position: Prone. Maureen Bynum MD was present for the procedu re. Fluoroscopy time: 0.2 min. Skin dose: 3.0 mGy. IMPRESSION: Successful fluor oscopically guided intrathecal injection of contrast for CT myelogram of the lumbar spine.
[2023-03-23] MEDS ORDERED: DIAZEPAM 5 MG TABLET ONE (22:28)
[2023-03-23] MEDS ORDERED: ONDANSETRON 4 MG/2 ML VIAL ONE (22:29)
[2023-03-23] MEDS ORDERED: MORPHINE 4 MG/ML SYR ONE (22:29)
[2023-03-23] MEDS ORDERED: NA CHLORIDE 0.9% 1,000 ML ONE (22:29)
[2023-03-23 22:34] LABS: Absolute Lymphocytes (CBC) 2.2 K/uL (0.7-4.9); Hematocrit 40.7 % (39.6-49.0); Lymphocytes % 32.9 % (15.3-44.8); MCV 85.5 fL (80-100); RBC Red Blood Cell Count 4.76 M/uL (4.33-5.43)
[2023-03-23 22:44] LABS: Protime INR 0.82
--- NOTE | 2023-03-23 22:48 | RAD REPORT ---
EXAM DESCRIPTION: RADChest Single View03/23/2023 10:15 pm CLINICAL HISTORY: CHEST PAIN COMPARISON: Chest Single View dated 03/05/2023; Chest Single View dated 02/12/2023; Chest Single View d ated 02/07/2023; Chest Single View dated 02/01/2023 TECHNIQUE: Portable AP view of the chest. FINDINGS: Overlying left upper chest monitoring device battery pack limits evaluation. The lungs are clear. No pneumothorax or effusion. The cardiomediastinal contours are unremarkable. IMPRESSION: No acute cardiopulmonary process.
[2023-03-23 22:53] LABS: Albumin 3.7 g/dL (3.4-5.0); Bilirubin Direct 0.1 mg/dL (0-0.2); Bilirubin Indirect, Calculated 0.3 mg/dL (0.2-0.8); Bilirubin Total 0.4 mg/dL (0.2-1.0); Magnesium 2.3 mg/dL (1.6-2.4); Potassium 3.8 mEq/L (3.5-5.1); Protein, Total 7.9 g/dL (6.4-8.2); Troponin High Sensitivity 5.2 pg/mL (<58.9)
[2023-03-23] MEDS ORDERED: dexAMETHasone 10 MG/ML VIAL ONE (23:17)
[2023-03-24] MEDS ORDERED: ONDANSETRON 4 MG/2 ML VIAL ONE (00:28)
[2023-03-24] MEDS ORDERED: MORPHINE 4 MG/ML SYR ONE (00:28)
--- NOTE | 2023-03-24 01:25 | EDPHYS ---
Physician Documentation [facility] Name: Moshe Ewing Age: 62 yrs Sex: Male : 1960 Arrival Date: 03/23/2023 Time: 21:36 Bed 19 Private MD: ED Physician Chris Plummer HPI: 03/23 21:51 This 62 yrs old Male presents to ER via Unassigned with complaints of neck lamont pain and chest pain. 21:51 The patient or guardian complains of decreased range of motion, pain, that is acute. lamont The symptoms are located at the cervical spine. Onset: The symptoms/episode began/occurred today. Context: The problem was sustained at home, The neck injury/problem resulted from from unknown cause. The patient or guardian reports chest pain that is located primarily in the anterior chest wall, bilaterally. Onset: today. The pain does not radiate. Modifying factors: The symptoms are alleviated by nothing. the symptoms are aggravated by movement. Severity of symptoms: At their worst the symptoms were moderate, in the emergency department the symptoms are unchanged. Associated signs and symptoms: The patient has no apparent associated signs or symptoms. Historical: - Allergies: 21:46 amlodipine; vc1 21:46 lidocaine patch; vc1 - PMHx: 21:46 Diabetes - NIDDM; DVT; Hypercholesterolemia; Hypertension; Hypothyroidism; Chronic neck vc1 pain; - PSHx: 21:46 back sx; cadriac stent; Cholecystectomy; foot/shoulder SX; L hand SX with plates vc1 placed; R BKA; stimulator R back for legs; external loop recorder; - Immunization history:: Client reports having NOT received the Covid vaccine. - Social history:: Smoking status: Patient denies any tobacco usage or history of. - Family history:: not pertinent. ROS: 21:51 Constitutional: Negative for fever, chills, and weight loss, Eyes: Negative for injury, lamont pain, redness, and discharge, ENT: Negative for injury, pain, and discharge, Neck: Negative for injury, pain, and swelling, Cardiovascular: Negative for chest pain, palpitations, and edema, Respiratory: Negative for shortness of breath, cough, wheezing, and pleuritic chest pain, Abdomen/GI: Negative for abdominal pain, nausea, vomiting, diarrhea, and constipation, Back: Negative for injury and pain, : Negative for injury, bleeding, discharge, and swelling, MS/Extremity: Negative for injury and deformity, Skin: Negative for injury, rash, and discoloration, Neuro: Negative for headache, weakness, numbness, tingling, and seizure. Exam: 21:57 Constitutional: This is a well developed, well nourished patient who is awake, alert, lamont and in no acute distress. Head/Face: Normocephalic, atraumatic. Eyes: Pupils equal round and reactive to light, extra-ocular motions intact. Lids and lashes normal. Conjunctiva and sclera are non-icteric and not injected. Cornea within normal limits. Periorbital areas with no swelling, redness, or edema. ENT: Nares patent. No nasal discharge, no septal abnormalities noted. Tympanic membranes are normal and external auditory canals are clear. Oropharynx with no redness, swelling, or masses, exudates, or evidence of obstruction, uvula midline. Mucous membranes moist. Chest/axilla: Normal chest wall appearance and motion. Nontender with no deformity. No lesions are appreciated. Cardiovascular: Regular rate and rhythm with a normal S1 and S2. No gallops, murmurs, or rubs. Normal PMI, no JVD. No pulse deficits. Respiratory: Lungs have equal breath sounds bilaterally, clear to auscultation and percussion. No rales, rhonchi or wheezes noted. No increased work of breathing, no retractions or nasal flaring. Abdomen/GI: Soft, non-tender, with normal bowel sounds. No distension or tympany. No guarding or rebound. No evidence of tenderness throughout. Back: No spinal tenderness. No costovertebral tenderness. Full range of motion. Male : Normal genitalia with no discharge or lesions. Skin: Warm, dry with normal turgor. Normal color with no rashes, no lesions, and no evidence of cellulitis. MS/ Extremity: Pulses equal, no cyanosis. Neurovascular intact. Full, normal range of motion. Neuro: Awake and alert, GCS 15, oriented to person, place, time, and situation. Cranial nerves II-XII grossly intact. Motor strength 5/5 in all extremities. Sensory grossly intact. Cerebellar exam normal. Normal gait. Psych: Awake, alert, with orientation to person, place and time. Behavior, mood, and affect are within normal limits. 21:57 Neck: C-spine: Trachea: is midline with no obvious abnormalities, no acute changes, ROM/movement: is normal, no acute changes, Lymph nodes: no appreciated lymphadenopathy. 22:46 ECG was reviewed by the Attending Physician. [facility] 03/24 00:08 ECG was reviewed by the Attending Physician. [facility] Vital Signs: 03/23 21:46 BP 153 / 90; Pulse 85; Resp 20; Temp 97.7; Pulse Ox 98% ; Weight 86.64 kg; Height 5 ft. vc1 9 in. ; Pain 10/10; 22:00 BP 145 / 91; Pulse 74; Resp 13; Pulse Ox 100% ; vc1 23:00 BP 148 / 91; Pulse 65; Resp 15; Pulse Ox 95% ; vc1 23:40 BP 133 / 81; Pulse 67; Resp 12; Pulse Ox 97% ; vc1 03/24 00:15 BP 130 / 83; Pulse 64; Resp 19; Pulse Ox 97% ; vc1 01:30 BP 124 / 80; Pulse 60; Resp 18; Pulse Ox 99% ; vc1 03/23 21:46 Body Mass Index 28.21 (86.64 kg, 175.26 cm) vc1 03/23 21:46 Pain Scale: Adult vc1 MDM: 03/23 21:47 Patient medically screened. [facility] 21:58 Differential diagnosis: arthritis, C-Spine Fracture Cervical Disc Herniation Cervical lamont Discogenic Pain Cervical Spondylosis abnormal EKG, Degenerative Disc Disease Neck Contusion Osteoarthritis Thoracic Outlet Syndrome torticollis, Unstable Vertebral Fracture. HEART Score: History: Slightly Suspicious (0), ECG: Non specific repolarization disturbance / LBTB / PM (1), Age: > 45 and < 65 years (1), Risk Factors: 1 or 2 risk factors (1), [Hypertension] [+ Family HX] Troponin: < or = 1 x Normal Limit (0). The patient was not given aspirin in the Emergency Department. Administered by EMS. LAURA Risk Score: TOTAL SCORE = 0. Data reviewed: vital signs, nurses notes, EMS record, lab test result(s), EKG, radiologic studies, CT scan, plain films. Consideration of Admission/Observation Escalation of care including admission/observation considered. I considered the following discharge prescriptions or medication management in the emergency department Medications were administered in the Emergency Department. See MAR. Independent interpretation of the following test(s) in the Emergency Department EKG: See my EKG interpretation above. Test considered but Not performed: MRI: no cervical mri. 03/23 21:50 Order name: Basic Metabolic Panel; Complete Time: 23:04 [facility] 03/23 21:50 Order name: CBC with Diff; Complete Time: 22:43 03/23 21:50 Order name: LFT's; Complete Time: 23:04 03/23 21:50 Order name: Magnesium; Complete Time: 23:04 03/23 21:50 Order name: NT PRO-BNP; Complete Time: 23:04 03/23 21:50 Order name: PT-INR; Complete Time: 23:04 03/23 21:50 Order name: Troponin HS; Complete Time: 23:04 [facility] 03/23 21:50 Order name: Lipase; Complete Time: 23:04 03/23 23:05 Order name: Troponin High Sensitivity: midnight; Complete Time: 01:03/23 23:54 Order name: Alcohol Level; Complete Time: 01:17 03/23 21:50 Order name: XRAY Chest (1 view); Complete Time: 23:04 03/23 21:50 Order name: CT C Spine 03/24 00:10 Order name: CT Chest For PE Angio 03/23 21:50 Order name: EKG; Complete Time: 21:51 03/23 23:54 Order name: EKG; Complete Time: 23:55 03/23 21:50 Order name: Cardiac monitoring; Complete Time: 22:34 03/23 21:50 Order name: EKG - Nurse/Tech; Complete Time: 22:34 03/23 21:50 Order name: IV Saline Lock; Complete Time: 22:34 03/23 21:50 Order name: Labs collected and sent; Complete Time: 22:34 03/23 21:50 Order name: O2 Per Protocol; Complete Time: 22:34 03/23 21:50 Order name: O2 Sat Monitoring; Complete Time: 22:34 03/23 23:54 Order name: EKG - Nurse/Tech; Complete Time: 00:29 [facility] EC:46 Rate is 99 beats/min. Rhythm is regular. QRS [place] is Normal. RI interval is normal. QRS lamont interval is normal. QT interval is normal. No Q waves. T waves are Normal. Clinical impression: Abnormal EKG without significant change and No evidence of ischemia. Interpreted by me. Reviewed by me. 03/24 00:08 Rate is 68 beats/min. Rhythm is regular. QRS [place] is Normal. RI interval is normal. QRS lamont interval is normal. QT interval is normal. No Q waves. T waves are Normal. No ST changes noted. Clinical impression: NSR w/ Non-specific ST/T Changes and No evidence of ischemia. Interpreted by me. Reviewed by me. Administered Medications: 03/23 22: Drug: NS 0.9% IV 1000 ml Route: IV; Rate: 1 bolus; Site: right forearm; vc1 23:37 Follow up: IV Status: Completed infusion; IV Intake: 1000ml vc10 18:34 Drug: morphine IVP or IV 4 mg Route: IVP; Infused Over: 4 mins; Site: right forearm; vc1 03/24 00:00 Follow up: Response: No adverse reaction; Pain is unchanged, physician notified vc1 03/23 22:34 Drug: Ondansetron IVP 4 mg Route: IVP; Site: right forearm; vc1 03/24 00:00 Follow up: Response: No adverse reaction; Marked relief of symptoms vc1 03/23 22:34 Drug: Diazepam PO 10 mg Route: PO; vc1 03/24 00:00 Follow up: Response: No adverse reaction; Pain is unchanged, physician notified vc1 03/23 23:14 Drug: Decadron - Dexamethasone IVP 10 mg Route: IVP; Site: right forearm; vc1 03/24 00:00 Follow up: Response: No adverse reaction; Pain is unchanged, physician notified vc1 : Drug: morphine IVP or IV 4 mg Route: IVP; Infused Over: 4 mins; Site: right forearm; vc1 01:38 Follow up: Response: No adverse reaction; Marked relief of symptoms vc: Drug: Ondansetron IVP 4 mg Route: IVP; Site: right forearm; vc1 01:39 Follow up: Response: No adverse reaction; Marked relief of symptoms vc1 01:30 Not Given (EMS administered 324 mgg): Aspirin PO Chewable Tablet 81 mg PO once vc1 Disposition Summary: 03/24/23 01:24 Discharge Ordered Location: Home lamont Problem: an acute exacerbation [facility] Symptoms: have improved lamont Condition: Stable lamont Diagnosis - Cervical disc disorder, unspecified, mid-cervical region lamont - Chest pain, unspecified lamont Followup: lamont - With: Private Physician - When: 2 - 3 days - Reason: Recheck today's complaints, Continuance of care, Re-evaluation by your physician Followup: lamont - With: - When: 2 - 3 days - Reason: Recheck today's complaints, Continuance of care, Re-evaluation by your physician Discharge Instructions: - Discharge Summary Sheet [facility] - Cervical Radiculopathy lamont - Nonspecific Chest Pain, Adult [facility] - Nonspecific Chest Pain, Adult, [id number] [facility] - Aspirin and Your Heart lamont - Cervical Radiculopathy, [id number] [facility] Forms: - Medication Reconciliation Form [facility] - Thank You Letter [facility] - Antibiotic Education [facility] - Prescription Opioid Use [facility] - [email or web address] Prescriptions: - dexamethasone 2 mg Oral tablet - take 2 tablet by ORAL route every 12 hours; 10 tablet; Refills: 0, Product [facility] Selection Permitted - acetaminophen-codeine 300-30 mg Oral tablet - take 2 tablet by ORAL route every 6 hours; 15 tablet; Refills: 0, Product [facility] Selection Permitted - Ibuprofen 600 mg Oral Tablet - take 1 tablet by ORAL route every 6 hours As needed take with food; 30 tablet; [facility] Refills: 0, Product Selection Permitted - Pepcid 20 mg Oral Tablet - take 1 tablet by ORAL route every 12 hours for 10 days; 20 tablet; Refills: 0, [facility] Product Selection Permitted - Cyclobenzaprine 5 mg Oral Tablet - take 1 tablet by ORAL route 3 times per day As needed; 15 tablet; Refills: 0, [facility] Product Selection Permitted Signatures: Dispatcher [facility] Chris Plummer MD MD cha Calcote, Vanessa RN RN vc1 Corrections: (The following items were deleted from the chart) 01:03 03/23 23:55 Troponin High Sensitivity+C.LAB.BRZ ordered. [facility] EDTX
--- NOTE | 2023-03-24 01:25 | ER ---
Nurse's Notes [facility] Name: Moshe Ewing Age: 62 yrs Sex: Male : 1960 Arrival Date: 03/23/2023 Time: 21:36 Bed 19 Private MD: Diagnosis: Cervical disc disorder, unspecified, mid-cervical region;Chest pain, unspecified Presentation: 03/23 21:46 Chief complaint: EMS states: We were called out for severe neck pain radiating to the vc1 chest started around 7 pm. 21:46 Coronavirus screen: Vaccine status: Patient reports being unvaccinated. Client denies 1 travel out of the [place] in the last 14 days. At this time, the client does not indicate any symptoms associated with coronavirus-19. Ebola Screen: Patient negative for fever greater than or equal to 101.5 degrees Fahrenheit, and additional compatible Ebola Virus Disease symptoms Patient denies exposure to infectious person. Patient denies travel to an Ebola-affected area in the 21 days before illness onset. No symptoms or risks identified at this time. Initial Sepsis Screen: Does the patient meet any 2 criteria? No. Patient's initial sepsis screen is negative. Does the patient have a suspected source of infection? No. Patient's initial sepsis screen is negative. Risk Assessment: Do you want to hurt yourself or someone else? Patient reports no desire to harm self or others. Onset of symptoms was March 23, 2023 at 19:00. 21:46 Method Of Arrival: EMS: [facility] vc1 21:46 Acuity: MYRIAM 3 vc1 21:46 Care prior to arrival: Medication(s) given: ASA, 81 mg, x 4, Nitroglycerin, x 2, vc1 Toradol 60 mg IM. Triage Assessment: 22:58 General: Appears distressed, uncomfortable, Behavior is inappropriate for age, vc1 Hollering out loud. Pain: Complains of pain in right posterior aspect of neck and left posterior aspect of neck. EENT: No deficits noted. No signs and/or symptoms were reported regarding the EENT system. Neuro: Level of Consciousness is awake, alert, obeys commands, Oriented to person, place, time, situation, Appropriate for age. Cardiovascular: No deficits noted. Respiratory: Airway is patent Respiratory effort is even, unlabored, Respiratory pattern is regular, symmetrical. GI: No deficits noted. No signs and/or symptoms were reported involving the gastrointestinal system. : No deficits noted. No signs and/or symptoms were reported regarding the genitourinary system. Derm: No deficits noted. No signs and/or symptoms reported regarding the dermatologic system. Musculoskeletal: No deficits noted. No signs and/or symptoms reported regarding the musculoskeletal system. Historical: - Allergies: 21:46 amlodipine; vc1 21:46 lidocaine patch; vc1 - PMHx: 21:46 Diabetes - NIDDM; DVT; Hypercholesterolemia; Hypertension; Hypothyroidism; Chronic neck vc1 pain; - PSHx: 21:46 back sx; cadriac stent; Cholecystectomy; foot/shoulder SX; L hand SX with plates vc1 placed; R BKA; stimulator R back for legs; external loop recorder; - Immunization history:: Client reports having NOT received the Covid vaccine. - Social history:: Smoking status: Patient denies any tobacco usage or history of. - Family history:: not pertinent. Screenin:58 [facility] ED Fall Risk Assessment (Adult) History of falling in the last 3 months, vc1 including since admission No falls in past 3 months (0 pts) Confusion or Disorientation No (0 pts) Intoxicated or Sedated No (0 pts) Impaired Gait No (0 pts) Mobility Assist Device Used No (0 pt) Altered Elimination No (0 pt) Score/Fall Risk Level 0 - 2 = Low Risk Oriented to surroundings, Maintained a safe environment, Educated pt \T\ family on fall prevention, incl call for assistance when getting out of bed. Abuse screen: Denies threats or abuse. Nutritional screening: No deficits noted. Tuberculosis screening: No symptoms or risk factors identified. Assessment: 22:00 Reassessment: No changes from previously documented assessment. Patient and/or family vc1 updated on plan of care and expected duration. Pain level reassessed. 23:10 Reassessment: Pt complaining that his neck still hurts, provider ordered steroids. Pt vc1 sitting up in bed on phone. 03/24 00:00 Reassessment: No changes from previously documented assessment. Patient and/or family vc1 updated on plan of care and expected duration. Pain level reassessed. Patient states symptoms have not improved. 01:00 Reassessment: No changes from previously documented assessment. Patient and/or family vc1 updated on plan of care and expected duration. Pain level reassessed. Patient is alert, oriented x 3, equal unlabored respirations, skin warm/dry/pink. Vital Signs: 03/23 21:46 BP 153 / 90; Pulse 85; Resp 20; Temp 97.7; Pulse Ox 98% ; Weight 86.64 kg; Height 5 ft. vc1 9 in. ; Pain 10/10; 22:00 BP 145 / 91; Pulse 74; Resp 13; Pulse Ox 100% ; vc1 23:00 BP 148 / 91; Pulse 65; Resp 15; Pulse Ox 95% ; vc1 23:40 BP 133 / 81; Pulse 67; Resp 12; Pulse Ox 97% ; vc1 03/24 00:15 BP 130 / 83; Pulse 64; Resp 19; Pulse Ox 97% ; vc1 01:30 BP 124 / 80; Pulse 60; Resp 18; Pulse Ox 99% ; vc1 03/23 21:46 Body Mass Index 28.21 (86.64 kg, 175.26 cm) vc1 03/23 21:46 Pain Scale: Adult vc1 ED Course: 03/23 21:46 Patient arrived in ED. ja2 21:46 Arm band placed on left wrist. vc1 21:46 Patient has correct armband on for positive identification. Bed in low position. Call vc1 light in reach. Client placed on continuous cardiac and pulse oximetry monitoring. NIBP monitoring applied. 21:47 Chris Plummer MD is Attending Physician. lamont 22:08 Kendra Nichole, RN is Primary Nurse. vc1 22:16 XRAY Chest (1 view) In Process Unspecified. EDMS 22:22 Inserted saline lock: 22 gauge in right forearm, using aseptic technique. Blood vc1 collected. 22:57 Triage completed. vc1 23:17 CT C Spine In Process Unspecified. EDMS 03/24 00:52 CT Chest For PE Angio In Process Unspecified. EDMS 01:24 Cecilio Santoro MD is Referral Physician. lamont 01:38 No provider procedures requiring assistance completed. IV discontinued, intact, vc1 bleeding controlled, No redness/swelling at site. Pressure dressing applied. Administered Medications: 03/23 22:34 Drug: NS 0.9% IV 1000 ml Route: IV; Rate: 1 bolus; Site: right forearm; vc1 23:37 Follow up: IV Status: Completed infusion; IV Intake: 1000ml vc1 22:34 Drug: morphine IVP or IV 4 mg Route: IVP; Infused Over: 4 mins; Site: right forearm; vc1 03/24 00:00 Follow up: Response: No adverse reaction; Pain is unchanged, physician notified vc1 03/23 22:34 Drug: Ondansetron IVP 4 mg Route: IVP; Site: right forearm; vc1 03/24 00:00 Follow up: Response: No adverse reaction; Marked relief of symptoms vc1 03/23 22:34 Drug: Diazepam PO 10 mg Route: PO; vc1 03/24 00:00 Follow up: Response: No adverse reaction; Pain is unchanged, physician notified vc1 03/23 23:14 Drug: Decadron - Dexamethasone IVP 10 mg Route: IVP; Site: right forearm; vc1 03/24 00:00 Follow up: Response: No adverse reaction; Pain is unchanged, physician notified vc1 00:27 Drug: morphine IVP or IV 4 mg Route: IVP; Infused Over: 4 mins; Site: right forearm; vc1 01:38 Follow up: Response: No adverse reaction; Marked relief of symptoms vc1 00:27 Drug: Ondansetron IVP 4 mg Route: IVP; Site: right forearm; vc1 01:39 Follow up: Response: No adverse reaction; Marked relief of symptoms vc1 01:30 Not Given (EMS administered 324 mgg): Aspirin PO Chewable Tablet 81 mg PO once vc1 Medication: 03/23 23:00 VIS not applicable for this client. vc1 Intake: 23:37 IV: 1000ml; Total: 1000ml. vc1 Outcome: 03/24 01:24 Discharge ordered by MD. miguel 01:38 Discharged to home ambulatory. vc1 01:38 Condition: improved 01:38 Discharge instructions given to patient, Instructed on discharge instructions, follow up and referral plans. medication usage, Demonstrated understanding of instructions, follow-up care, medications, Prescriptions given X 5 01:41 Patient left the ED. vc1 Signatures: Dispatcher [employer] EDMS Chris Plummer MD MD cha Alexander, Jessica ja2 Calcote, Vanessa, RN RN vc1 Corrections: (The following items were deleted from the chart) 03/23 23:15 22:34 Ondansetron IVP 4 mg IVP in right antecubital vc1 vc1
[2023-03-24 01:55] VITALS: TEMP 97.7
[2023-03-24 02:05] VITALS: BP 124/80; O2SAT 99
--- NOTE | 2023-03-24 11:57 | RAD REPORT ---
EXAM DESCRIPTION: CT - C Spine Wo Con - 03/24/2023 2:34 am CLINICAL HISTORY: 62 years Male PAIN COMPARISON: CT cervical spine dated 12/18/2022 TECHNIQUE: Multiplanar imaging through the cervical spine without contrast. This exam was performe d according to our departmental dose-optimization program, which includes automated exposure control, adjustment of the mA and/or kV according to patient size and/or use of iterative reconstruction tech nique. DLP: 362 mGy*cm FINDINGS: No fracture. No subluxation. Disc spaces are preserved. Large anterior osteophytes. Multilevel disc herniations, unchanged. Paraspinal soft tissues are unremarkable. Visualized lung is clear. Vascular calcifications. IMPRESSION: No fracture or subluxation. Multilevel degenerative changes. Electronically signed by: Scooter Christopher DO 03/23/2023 11:50 PM CDT Due to temporary technical issues with the PACS/Fluency reporting system, reports are being signed by the in house radiologist without review as a courtesy to ensure prompt reporting. The interpreting r adiologist is fully responsible for the content of the report.
--- NOTE | 2023-03-24 12:51 | RAD REPORT ---
EXAM DESCRIPTION: CT - Chest For Pe Angio - 03/24/2023 2:35 am CLINICAL HISTORY: CHEST PAIN COMPARISON: Single view chest x-ray 03/23/[address] chest 03/05/2023 TECHNIQUE: CTA of the chest obtained following the administration of IV contrast. 3-D/MIP reformatte d images of the chest available for evaluation. This exam was performed according to our departmental dose-optimization program, which includes automated exposure control, adjustment of the mA and/or kV according to patient size and/or use of iterative reconstruction technique. FINDINGS: Chest: Pulmonary arteries: Contrast bolus is adequate. No filling defects identified in the pulmonary arteri es to suggest pulmonary embolus. Thyroid gland: No abnormalities of the visualized thyroid gland. Great Vessels: Great vessels have normal anatomic configuration. Thoracic Aorta: No aneurysm. No visualized dissection. Heart: No pericardial effusion. Coronary artery calcifications. Lymph Nodes: No enlarged mediastinal, hilar, or axillary lymph nodes identified. Esophagus: No abnormalities of the esophagus identified. Other: No additional findings. Lungs: Bilateral dependent atelectasis. No focal pneumonia. No suspicious pulmonary nodule or mass le [place]. Pleura: No pleural effusion or pneumothorax. Trachea/Airways: Central airways are patent. Bones: Chronic bilateral rib fractures. No suspicious bone lesions. Upper Abdomen: Limited images of the upper abdomen demonstrate no acute abnormality. IMPRESSION: No pulmonary embolism identified. Electronically signed by: Aggie Lynne MD 03/24/2023 1:21 AM CDT Due to temporary technical issues with the PACS/Fluency reporting system, reports are being signed by the in house radiologist without review as a courtesy to ensure prompt reporting. The interpreting r adiologist is fully responsible for the content of the report.
--- NOTE | 2023-03-24 18:08 | EKG ---
Test Date: 2023-03-24 Test Time: 00:02:32 Systems Designer: AAKASH MEASUREMENT RESULTS: Intervals: Rate: 68 SD: 162 QRSD: 142 QT: 440 QTc: 467 [place]: P: 50 SD: 162 QRS: 77 T: 44 INTERPRETIVE STATEMENTS: Normal sinus rhythm Nonspecific intraventricular block Abnormal ECG Compared to ECG 03/23/2023 22:02:53 Sinus bradycardia no longer present Uncertain supraventricular rhythm no longer present AV dissociation no longer present Right bundle-branch block no longer present Electronically Signed On 03-24-23 18:07:17 CDT by Jae Owens
--- NOTE | 2023-03-24 18:09 | EKG ---
Test Date: 2023-03-23 Test Time: 22:02:53 Warehouse Logistics Coordinator: AAKASH MEASUREMENT RESULTS: Intervals: Rate: 69 SD: QRSD: 124 QT: 412 QTc: 441 [place]: P: -14 SD: QRS: 81 T: 50 INTERPRETIVE STATEMENTS: Normal sinus rhythm Right bundle branch block Electronically Signed On 03-24-23 18:07:57 CDT by Jae Owens
--- NOTE | 2023-03-24 18:09 | EKG ---
Test Date: 2023-03-23 Test Time: 21:54:27 Router Setter: AAKASH MEASUREMENT RESULTS: Intervals: Rate: 76 RI: QRSD: 124 QT: 392 QTc: 441 [place]: P: RI: QRS: 79 T: 51 INTERPRETIVE STATEMENTS: Sinus rhythm Right bundle branch block Abnormal ECG Electronically Signed On 03-24-23 18:08:28 CDT by Jae Owens
== END 2023-03-24 01:41 | disposition home or self-care (01) ==
LOC: ER 21:36
DX: M50.820 Other cervical disc disorders, mid-cervical region, unspecified level (principal); R07.9 Chest pain, unspecified; I10 Essential (primary) hypertension; E11.9 Type 2 diabetes mellitus without complications; Z88.6 Allergy status to analgesic agent; Z88.8 Allergy status to other drugs, medicaments and biological substances; Z95.818 Presence of other cardiac implants and grafts; Z89.511 Acquired absence of right leg below knee
CPT/HCPCS: 93005 ×3; 85025; 80048; 36415; 83735; 85610; 80076; 84484 ×2; 83690; 83880; 72125; 71275; 71045; 82077; Q9967; J1100; J2405 ×2; J7030; 96361; 96374; 96375; 99285

== ENCOUNTER 2023-03-31 00:33 | Emergency (ER) | payer OTHER ==
--- OUTSIDE RECORDS SUMMARY | 2023-03-31 00:47 | XMS REPORT | Continuity of Care Document ---
:1960 Author Organization [facility] t Address [address] [facility] [address] [place] [address] Care Team Providers Name Role Phone Regina Hodges Primary Care Physician Maira Oliveira Attending Clinician Unavailable Regina Hodges Attending Clinician Unavailable Jeison Hays Attending Clinician Radiology Attending Clinician Unavailable RADIOLOGY Attending Clinician Unavailable Carolina Rice RN Attending Clinician Unavailable EARL GODDARD Attending Clinician Unavailable Leonora Guzman Attending Clinician Alexandre Montemayor MD Attending Clinician Earl Goddard MD Attending Clinician Doctor Unassigned, [place] Attending Clinician Unavailable Wallace Dotson MD Attending Clinician Brian Bright Attending Clinician BRIAN SCHAFFER Attending Clinician Unavailable WALLACE DOTSON Attending Clinician Unavailable Braxton Nash II Attending Clinician BRAXTON NASH Attending Clinician Unavailable CHE BAH Attending Clinician Unavailable Che Bah MD Attending Clinician Only, Adc Test Attending Clinician Unavailable Shannon Herr DO Attending Clinician aCridad Attending Clinician Unavailable ALEXANDRE MONTEMAYOR Admitting Clinician Unavailable Alexandre Montemayor MD Admitting Clinician BRAXTON NASH II Admitting Clinician Unavailable CHE BAH Admitting Clinician Unavailable Che Bah MD Admitting Clinician Caridad Admitting Clinician Unavailable Payers Payer Name Policy Type Policy Number Effective Date Expiration Date Janell freitas [facility] DUAL [id number] 2020 COMP HMO D SNP 00:00:00 [place] [id number] 2020 [place] 00:[place]00 [facility] 53 [id number] 2020 Common ADVANTAGE 00:00:00 Spirit - [facility] [id number] [facility] MEDICARE [id number] 2020 COMPLETE CHOICE 00:00:00 HUMANCarmen GOLD PLS [id number] 2019 HMO 00:00:00 MEDICARE PART A [id number] 2004 2019 \T\ B 00:00:00 00:00:00 Problems Condition Condition Condition Status Onset Resolution Last Treating Co mments Source Name Details Category Date Date Treatment Clinician Date Coronary Coronary Disease Active 2021-09 Unive rs artery artery 1-17 ity of disease disease 00:00: [place] involving involving 00 Med[place] coronary coronary artery of artery of [place] heart heart without without angina angina pectoris pectoris Generalize Generalize Disease Active 2021-09 U nivers d d 1-17 [place] of abdominal abdominal [place] pain pain 00 [place] Coronary Coronary Disease Active 2021-09 Unive rs artery artery 1-17 ity of disease disease 00:00: [place] involving involving 00 Medi [place] coronary coronary artery of artery of [place] heart heart without without angina angina pectoris pectoris Chest pain Chest pain Disease Active 2022-1 U nivers 1-16 ity of 00:00: [place] 00 Medical Branch SPINAL SPINAL Diagnosis Active 2020-092021-09-26 Me madison CORD CORD 11-24 08:25:00 l STIMULATOR STIMULATOR 00:00: He rmann INSERTION INSERTION 00 Active 09/23/2021 [facility] UNK UNK Diagnosis Active 2020-092021-09-24 Mem oria Active 11-24 12:49:00 l 09/23/2021 00:00: Tera leon [facility] 00 [place] Other Other Disease Active 2020-09 Univers age-relate age-relate 11-03 it y of d cataract d cataract [place] of left of left 00 Medical eye eye Branch RADICULOPA RADICULOP Diagnosis Active 2020-10-15 Memoria THY, ATHY, 10-04 07:21:00 l LUMBAR LUMBAR 00:00: [place] REGION REGION 00 Active 10/04/2020 [facility] [place] [facility] Obesity Obesity Disease Active Univers (BMI (BMI 3-06 ity of 30-39.9) 30-39.9) 00:00: [place] 00 Medical Branch Left knee Left knee Disease Active Uni vers pain pain 1-10 ity of 00:00: [place] [facility] Left knee Left knee Disease Active Uni vers pain pain 1-10 ity of 00:00: [place] 00 Medical Branch Shoulder Shoulder Disease Active Unive rs pain, pain, 5-10 ity of bilateral bilateral [place] Foot pain, Foot pain, Disease Active U nivers left left 3-09 ity of 00:00: [place] 00 Medical Branch Impaired Impaired Problem Active 2023-03-29 Memoria mobility mobility 04-28 11:30:35 l (finding) (finding) 00:00: Herm adam Active 00 04/28/2011 Problem 03/29/2023 Manuel Bee [facility] Hypothyroi Hypothyro Problem Resolve 2021-09-28 Memoria dism idism d 22:42:20 l (disorder) (disorder) He rmann Resolved Problem 09/28/2021 SAADIA Adams [id number] Essential Problem Comm on hypertensi Spirit on - CH[facility] [id number] [place] [id number] prostatic Spirit hyperplasi - CHI a with [facility] urinary Medical tract Center symptoms [id number] Other Problem Common secondary Spirit acute gout - CHI of left [facility] [id number] Type 2 Problem Common diabetes Spirit mellitus - CHI without complicati [facility] on, Medical unspecifie Center d 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 [id number] Acquired Problem Comm on hypothyroi Spirit dism - [facility] [id number] Frequency Problem Com mon of Spirit micturitio - CHI n [facility] [id number] Mass in Problem Commo n neck Spirit - [facility] [id number] History of Problem C ommon right Spirit below knee - CHI amputation [facility] [id number] Cervical Problem Com mon osteophyte [facility] [id number] [place] [id number] exam [facility] [id number] Chronic Problem 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 - [facility] diabetes with [facility] diabetic [facility] polyneurop [facility] without long-term current use of insulin [id number] Benign Problem Common prostatic Spirit hyperplasi - CHI a without [facility] urinary Medical tract Center symptoms [id number] PAD Problem Common (periphera Spirit l artery - CHI disease) [facility] [id number] Mixed Problem Common hyperlipid Spirit emia - [facility] Polyneurop Polyneurop Problem C ommon athy athy Spirit - [facility] Angina Angina Problem Active 2023-03-29 Mem oria (disorder) (disorder) 11:30:35 l Active [place] Problem 03/29/2023 Manuel Adams [facility] Carpal Carpal Problem Active 2023-03-29 Brodie douglas tunnel tunnel 11:30:35 l syndrome syndrome Tera n (disorder) (disorder) Active Problem 03/29/2023 [facility] [place] Cervical Cervical Problem Active 2023-03-29 Memoria radiculopa radiculopa 11:30:35 l thy thy [place] (disorder) (disorder) Active Problem 03/29/2023 [facility] 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 Hyperlipid Problem Active 2023-03-29 [facility] emia Hyperlipid 11:30:35 l (disorder) emia Tera n (disorder) Active Problem 03/29/2023 [facility] Hypertensi Hypertens Problem Active 2023-03-29 Memoria ve phi 11:30:35 l disorder, disorder, Herm adam systemic systemic arterial arterial (disorder) (disorder) Active Problem 03/29/2023 [facility] Pain Pain Problem Active 2023-03-29 Memor ia (finding) (finding) 11:30:35 l Active [place] Problem 03/29/2023 [facility] Submandibu Submandib Problem [facility] 2023-03-29 [facility] 11:30:35 l lymphadeno lymphadeno He ann ryne ryne (disorder) (disorder) Active Problem 03/29/2023 [facility] Raised Raised Problem Active [place] prostate Prostate [...] U nivers ne ty to See comments 16 unknown ity of adverse 00:00: [place] reaction 00 Medical s Branch No Known No Known Active Memori a Medicati Medicati l on on [place] Allergie Allergie s s amlodipi amlodipi Active CP, SOB, Comm on ne ne Nausea Spirit - [facility] NO KNOWN Drug Active [facility] ALLERGIE Class ity of S [facility] Social History Social Habit Start Date Stop Date Quantity Comments Source Sex Assigned At Common Sp josee - [facility] History of Common Spirit - Tobacco Use [facility] History [facility]SC Food 2022-08-14 2022-08-14 1 Univers ity of Worry 00:00:00 00:00:00 [place] [facility] [place] History SDSC Food 2022-08-14 2022-08-14 1 Univers ity of Scarcity 00:00:00 00:00:00 [place] [facility] History [facility] 2022-08-14 2022-08-14 2 University o f Transport Med 00:00:00 00:00:00 [facility] Branch History [facility] 2022-08-14 2022-08-14 2 University o f Transport Non-Med 00:00:00 00:00:00 [facility] edical [place] Alcohol intake 2022-08-13 2022-08-13 0 /d University of 00:00:00 00:00:00 [facility] Exposure to 2022-08-02 2022-08-[address] [facility] SARS-CoV-2 00:00:00 10:42:00 [facility] (event) [place] Tobacco use and 2022-05-19 2022-05-19 Smokeless tobacco Un iversity of exposure 00:00:00 00:00:00 non-user [facility] Social History 2021-09-24 2021-09-24 [facility] jay 15:29:23 15:29:23 Smoking Status Start Date Stop Date Source Tobacco smoking status [facility] Medications Ordered Filled Start Stop Current Ordering Indication Dosage Frequency Signature Comments Components Source Medication Medication Date Date Medication? Clinician (SIG) Name Name gabapentin Yes 100 mg = 1 M emoria 100 mg oral 5-23 cap, PO, l capsule 16:35: TID, # 90 Roz nn 00 cap, 1 Refill(s), Pharmacy: [facility] 482, 175.26, cm, 02/16/23 11:00:00 CDT, Height, 91.364, kg, 02/16/23 11:00:00 CDT, Weight gabapentin 2022-0 Yes 100 mg = 1 M emoria 100 mg oral 5-23 cap, PO, l capsule 16:35: TID, # 90 Roz nn 00 cap, 1 Refill(s), Pharmacy: [facility] 482, 175.26, cm, 02/16/23 11:00:00 CDT, Height, 91.364, kg, 02/16/23 11:00:00 CDT, Weight gabapentin 2022-0 Yes 100 mg = 1 M emoria 100 mg oral 5-23 cap, PO, l capsule 16:35: TID, # 90 Roz nn 00 cap, 1 Refill(s), Pharmacy: [facility] 482, 175.26, cm, 02/16/23 11:00:00 CDT, [...] 5-23 TABLET BY l tablet 16:33: MOUTH [place] 00 EVERY 8 HOURS NEEDED FOR PAIN [...] 5-23 TABLET BY l tablet 16:33: MOUTH [place] 00 EVERY 8 HOURS NEEDED FOR ANXIETY tramadol 50 2022-0 Yes TAKE 1 Brodie douglas mg oral 5-23 TABLET BY l tablet 16:33: MOUTH [place] 00 EVERY 8 HOURS NEEDED FOR PAIN acetaminoph 2022-0 Yes TAKE 1 Brodie douglas en-hydrocod 5-23 TABLET BY l one 325 16:33: MOUTH [place] mg-10 mg 00 EVERY 8 oral tablet HOURS NEEDED ondansetron Yes TAKE 1 Brodie douglas 4 mg oral 5-23 TABLET BY l tablet 16:33: MOUTH [place] 00 EVERY 12 HOURS NEEDED diazepam 5 0 Yes TAKE 1 Memor ia mg oral 5-23 TABLET BY l tablet 16:33: MOUTH [place] 00 EVERY 8 HOURS NEEDED FOR ANXIETY tramadol 50 0 Yes TAKE 1 Brodie douglas mg oral 5-23 TABLET BY l tablet 16:33: MOUTH [place] 00 EVERY 8 HOURS NEEDED FOR PAIN acetaminoph 0 Yes TAKE 1 Brodie douglas en-hydrocod 5-23 [...] [place] 00 on [facility] 08/13/22 Branch at 2100, Until Discontinu ed sulfur 2021-09- No [id number] 5mL 5 mL, Unive rs hexafluorid 10-13 Intravenou i ty of e microsphr 20:30: 20:30 s, ONCE, 1 [place] (LUMASON) 00 :00 dose, On Medica l injection 5 Maegan Branch mL 08/13/22 at 1430, Routine
faculty member approving Restricted medication : MANDY VAUGHN clopidogreL 2021-09 Yes 75mg Take 75 mg Univers (PLAVIX) 75 17 by mouth ity of mg tablet 16:36: in the [place] [address] morning. Medical Branch Levothyroxi 2021-09 Yes Take by Uni vers ne 75 mcg 17 mouth. ity of capsule 16:36: [place] [address] Medical Branch finasteride 2021-09 Yes 5mg Take 5 mg U nivers 5 mg tablet 17 by mouth ity of 16:36: in the [place] [address] morning. Medical Branch losartan 2021-09 Yes 100mg Take 100 Univ ers 100 mg 1-17 mg by ity of tablet 16:36: mouth in [place] [address] the Medical morning. Branch metFORMIN 2021-09 Yes 500mg Take 500 Uni vers 500 mg 1-17 mg by ity of tablet 16:36: mouth in [place] [address] the Medical morning Branch and 500 mg in the evening. Take with meals. lovastatin 2021-09 Yes 20mg Take 20 mg U nivers 20 mg -17 by mouth ity of tablet 16:36: at [place] [address] bedtime. Medical Branch tamsulosin 2021-09 Yes Take by Univ ers (FLOMAX) -17 mouth ity of 0.4 mg 24 16:36: daily. [place] hr capsule Medical Branch ergocalcife 2021-09 Yes 2000U Take 2,000 Univers rol, 1-17 Units by ity of vitamin D2, 16:36: mouth. [facility] s (VITAMIN D Medical ORAL) Branch aspirin 81 2021-09 Yes 81mg Take 81 mg U nivers mg chewable -17 by mouth ity of tablet 16:36: in the [place] [address] morning. Medical Branch clopidogreL 2021-09 Yes 75mg Take 75 mg Univers (PLAVIX) 75 -17 by mouth ity of mg tablet 16:36: in the [place] [address] morning. Medical Branch Levothyroxi 2021-09 Yes Take by Uni vers ne 75 mcg 1-17 mouth. ity of capsule 16:36: [place] Medical [facility] finasteride 2021-09 Yes 5mg Take 5 mg U nivers 5 mg tablet 1-17 by mouth ity of 16:36: in the [place] [address] morning. Medical Branch losartan 2021-09 Yes 100mg Take 100 Univ ers 100 mg 1-17 mg by ity of tablet 16:36: mouth in [place] [address] the Medical morning. Branch metFORMIN 2021-09 Yes 500mg Take 500 Uni vers 500 mg 1-17 mg by ity of tablet 16:36: mouth in [place] [address] the Medical morning Branch and 500 mg in the evening. Take with meals. lovastatin 2021-09 Yes 20mg Take 20 mg U nivers 20 mg 1-17 by mouth ity of tablet 16:36: at [place] [address] bedtime. Medical Branch tamsulosin 2021-09 Yes Take by Univ ers (FLOMAX) 1-17 mouth ity of 0.4 mg 24 16:36: daily. [place] hr capsule Medical Branch ergocalcife 2021-09 Yes 2000U Take 2,000 Univers rol, 1-17 Units by ity of vitamin D2, 16:36: mouth. Serv[facility] s (VITAMIN D Medical ORAL) Branch aspirin 81 2021-09 Yes 81mg Take 81 mg U nivers mg chewable 1-17 by mouth ity of tablet 16:36: in the [place] [address] morning. Medical Branch clopidogreL 2021-09 Yes 75mg Take 75 mg Univers (PLAVIX) 75 1-17 by mouth ity of mg tablet 16:36: in the [place] [address] morning. Medical Branch Levothyroxi 2021-09 Yes Take by Uni vers ne 75 mcg 1-17 mouth. ity of capsule 16:36: [place] [address] Medical Branch finasteride 2021-09 Yes 5mg Take 5 mg U nivers 5 mg tablet 1-17 by mouth ity of 16:36: in the [place] [address] morning. Medical Branch losartan 2021-09 Yes 100mg Take 100 Univ ers 100 mg 1-17 mg by ity of tablet 16:36: mouth in [place] [address] the Medical morning. Branch metFORMIN 2021-09 Yes 500mg Take 500 Uni vers 500 mg 1-17 mg by ity of tablet 16:36: mouth in [place] the Medical morning Branch and 500 mg in the evening. Take with meals. lovastatin 2021-09 Yes 20mg Take 20 mg U nivers 20 mg 1-17 by mouth ity of tablet 16:36: at [place] [address] bedtime. Medical Branch tamsulosin 2021-09 Yes Take by Univ ers (FLOMAX) 1-17 mouth ity of 0.4 mg 24 16:36: daily. [facility] capsule Medical Branch ergocalcife 2021-09 Yes 2000U Take 2,000 Univers rol, 1-17 Units by ity of vitamin D2, 16:36: [place]. [place] (VITAMIN D Medical ORAL) Branch aspirin 81 2021-09 Yes 81mg Take 81 mg U nivers mg chewable -17 by mouth ity of tablet 16:36: in the [place] morning. Medical Branch polyethylen 2021-09 Yes 17g 17 g, Unive rs e glycol -17 Oral, ity of 3350 powder 15:00: DAILY, [place] 17 g 00 First dose Medical on [facility] 08/13/22 at 0900, Until Discontinu ed, Routine tamsulosin 2021-09 Yes .4mg 0.4 mg, Univ ers (FLOMAX) -17 Oral, ity of capsule 0.4 15:00: DAILY, [place] mg 00 First dose Medical on [facility] 08/13/22 at 0900, Until Discontinu ed, Routine losartan 2021-09 Yes 100mg 100 mg, Unive rs (COZAAR) 1-17 Oral, ity of tablet 100 15:00: DAILY, [place] mg 00 First dose Medical on [facility] 08/13/22 at 0900, Until Discontinu ed, Routine finasteride 2021-09 Yes 5mg 5 mg, Unive rs (PROSCAR) -17 Oral, ity of tablet 5 mg 15:00: [place]ILY, [place] 00 First dose Medical on [facility] 08/13/22 at 0900, Until Discontinu ed, Routine clopidogreL 2021-09 Yes 75mg 75 mg, Univ ers (PLAVIX) 75 -17 Oral, ity of mg tablet 15:00: DAILY, [place] 75 mg 00 First dose Medical on [facility] 08/13/22 at 0900, Until Discontinu ed, [...] 40 mg 00 First dose Medical on [facility] Branch 08/13/22 at 0900, Until Discontinu ed, Routine Sliding 2021-09 Yes Subcutaneo Univ ers Scale -17 us, TID ity of Insulin - 14:00: MEALS+HS, [place] as Lispro 00 First dose Medical (HumaLOG) + on [facility] Branch Fsbg 08/13/22 Testing at 0800, Until Discontinu ed, Routine levothyroxi 2021-09 Yes 75ug 75 mcg, Uni vers ne 10-13 Oral, ity of (SYNTHROID) 12:00: QAM-0600, [place] tablet 75 00 First dose Medi balbina mcg on [facility] Branch 08/13/22 at 0600, Until Discontinu ed dextrose 2021-09 Yes 250mL 250 mL, IV Un jovi 10% (D10W) 10-13 Infusion, ity of bolus 06:39: PRN - SEE [place] infusion 28 INSTRUCTIO Medic al 250 mL NS, Branch Administer over 60 Minutes, Other, If blood glucose is < or = 70 mg/dL and patient is unable to swallow or has mental status changes, Starting on [facility] 08/13/22 at 0039
If blood glucose is [...] 2021-09 Yes 1mg 1 mg, Univers (GLUCAGEN -17 Intramuscu ity of DIAGNOSTIC 06:39: lar, PRN, [...] Routine, Pain (scale 1-3) iopamidol 2021-09- No [id number] 100mL 100 mL, Univers (ISOVUE 10-12 Intravenou ity o f 370-500 mL) 19:45: 19:33 s, ONCE, 1 [place] injection 00 :00 dose, On Medica l 100 mL Wed [place] 08/12/22 at 1345, Routine hydralAZINE 2021-09- No [...] [place] mg 00 :00 dose, On [facility] 08/12/22 at 1315, STAT morpHINE (2021-09- No 4mg 4 mg, Slow Univers mg/mL) 10-12 IV Push, ity of injection 4 19:00: 18:55 ONCE, 1 [place] mg 00 :00 dose, On [facility] 08/12/22 at 1300, STAT nitroglycer 2021-09- No [...] on Wed08/12/22 at 1210, Until Discontinu ed, VUAGHN, Chest pain ondansetron 2021-09- No 4mg 4 mg, Slow Univers (ZOFRAN 10-12 IV Push, ity of (PF)) 17:15: 17:11 ONCE, 1 [place] injection 4 00 :00 dose, On Medi balbina mg Wed [place] 08/12/22 at 1115, VAUGHN morpHINE (2021-09- No 4mg 4 mg, Slow Univers mg/mL) 10-12 IV Push, ity of injection 4 17:15: 17:12 ONCE, 1 [place] mg 00 :00 dose, On [facility] 08/12/22 at 1115, STAT Lidocaine & Lidocaine [...] 00 :00 (Patch) meloxicam 2021-0 2021- No [id number] 15mg Take 1 Univers 15 mg 8-06-19 [id number] tablet by ity of tablet 00:00: 04:59 mouth in [place] 00 :00 [facility] for 30 days. meloxicam 2021-0 2021- No [id number] 15mg Take 1 Univers 15 mg 8-19 06- 352187 tablet by ity of tablet 00:00: 04:59 mouth in [place] 00 :00 [facility] for 30 days. meloxicam 2021-0 2021- No [id number] 15mg Take 1 Univers 15 mg 8-06-19 [id number] tablet by ity of tablet 00:00: 04:59 mouth in [place] 00 :00 [facility] for 30 days. methylPREDN 2-0 Yes [id number] 84mg Take 21 Univers ISolone 5-23 9103 tablets by ity of (MEDROL, 00:00: mouth [place] MICHELE,) 4 mg 00 SEE-INSTRU Med ical tablets CTIONS. Branch follow package directions methylPREDN 2-0 Yes [id number] 84mg Take 21 Univers ISolone 5-23 9103 tablets by ity of (MEDROL, 00:00: mouth [place] MICHELE,) 4 mg 00 SEE-INSTRU Med ical tablets CTIONS. Branch follow package directions methylPREDN 2021-0 Yes [id number] 84mg Take 21 Univers ISolone 5-23 9103 tablets by ity of (MEDROL, 00:00: mouth [place] MICHELE,) 4 mg 00 SEE-INSTRU Med ical tablets CTIONS. Branch follow package directions methylPREDN 2021-0 Yes [id number] 84mg Take 21 Univers ISolone 5- 9103 tablets by ity of (MEDROL, 00:00: mouth [place] MICHELE,) 4 mg 00 SEE-INSTRU Med ical tablets CTIONS. Branch follow package directions methylPREDN 0 2021- No [id number] 84mg Take 21 Univers ISolone 5-23 -17 9103 tablets by ity o f (MEDROL, 00:00: 00:00 mouth [place] MICHELE,) 4 mg 00 :00 SEE-INSTRU Med ical tablets CTIONS. Branch follow package directions Meloxicam Meloxicam 2021- No 1{table QD Meloxicam 7.5 MG 7.5 MG 02-04-10 t} 7.5 MG 00:00: 00:00 00 :00 Meloxicam Meloxicam 2021- No 1{table QD Meloxicam 7.5 MG 7.5 MG -08 02-10 t} 7.5 MG 00:00: 00:00 00 :00 tiZANidine tiZANidine 2021- No 1{table tiZANidine HCl 4 MG HCl 4 MG 02-04- t_as_ne HCl 4 MG 00:00: 00:00 eded} 00 :00 Rocephin Rocephin 0 No 1000mg Com mon (Ceftriaxon (Ceftriaxon 4-11 S pirit e) e) 00:00: - [facility]I 00 [facility] Toradol Toradol 2021-0 No 30mg Common (Ketorolac) (Ketorolac) 4-11 S pirit 00:00: - [facility] Rocephin Rocephin 2021-0 No 1000mg Com mon (Ceftriaxon (Ceftriaxon 4-11 S pirit e) e) 00:00: - [facility] Toradol Toradol 2022-0 No 30mg Common (Ketorolac) (Ketorolac) 4-11 S pirit 00:00: - CHI 00 [facility] Rocephin Rocephin 2-0 No 1000mg Com mon (Ceftriaxon (Ceftriaxon 4-11 S pirit e) e) 00:00: - [facility] Toradol Toradol 2021-0 No 30mg Common (Ketorolac) (Ketorolac) 4-11 S pirit 00:00: - CHI 00 [facility] Naproxen Naproxen 2021-0 No BID Naproxen 500 MG 500 MG 4-11 500 MG 00:00: 00 Rocephin Rocephin 2-0 No 1000mg Com mon (Ceftriaxon (Ceftriaxon 4-11 S pirit e) e) 00:00: - [facility] Toradol Toradol 2021-0 No 30mg Common (Ketorolac) (Ketorolac) 4-11 S pirit 00:00: - [facility] Naproxen Naproxen 2021-0 No BID Naproxen 500 MG 500 MG 4-11 500 MG 00:00: 00 Rocephin Rocephin 2-0 No 1000mg Com mon (Ceftriaxon (Ceftriaxon 4-11 S pirit e) e) 00:00: - [facility] Toradol Toradol 2021-0 No 30mg Common (Ketorolac) (Ketorolac) 4-11 S pirit 00:00: - [facility] Rocephin Rocephin 2-0 No 1000mg Com mon (Ceftriaxon (Ceftriaxon 4-11 S pirit e) e) 00:00: - [facility] Toradol Toradol 2021-0 No 30mg Common (Ketorolac) (Ketorolac) 4-11 S pirit 00:00: - CHI 00 [facility] Rocephin Rocephin 2-0 No 1000mg Com mon (Ceftriaxon (Ceftriaxon 4-11 S pirit e) e) 00:00: - [facility] Toradol Toradol 2021-0 No 30mg Common (Ketorolac) (Ketorolac) 4-11 S pirit 00:00: - CHI 00 [facility] Rocephin Rocephin 2-0 No 1000mg Com mon (Ceftriaxon (Ceftriaxon 4-11 S pirit e) e) 00:00: - CHI 00 [facility] Toradol Toradol 2021-0 No 30mg Common (Ketorolac) (Ketorolac) 4-11 S pirit 00:00: - CHI 00 [facility] Rocephin Rocephin 2-0 No 1000mg Com mon (Ceftriaxon (Ceftriaxon 4-11 S pirit e) e) 00:00: - CHI 00 [facility] Toradol Toradol 2021-0 No 30mg Common (Ketorolac) (Ketorolac) 4-11 S pirit 00:00: - CHI 00 [facility] Rocephin Rocephin 2-0 No 1000mg Com mon (Ceftriaxon (Ceftriaxon 4-11 S pirit e) e) 00:00: - [facility] Toradol Toradol 2021-0 No 30mg Common (Ketorolac) (Ketorolac) 4-11 S pirit 00:00: - CHI 00 [facility] Rocephin Rocephin 2-0 No 1000mg Com mon (Ceftriaxon (Ceftriaxon 4-11 S pirit e) e) 00:00: - CHI 00 [facility] Toradol Toradol 2021-0 No 30mg Common (Ketorolac) (Ketorolac) 4-11 S pirit 00:00: - [facility] Rocephin Rocephin 2-0 No 1000mg Com mon (Ceftriaxon (Ceftriaxon 4-11 S pirit e) e) 00:00: - [facility] Toradol Toradol 2021-0 No 30mg Common (Ketorolac) (Ketorolac) 4-11 S pirit 00:00: - [facility] Rocephin Rocephin 2-0 No 1000mg Com mon (Ceftriaxon (Ceftriaxon 4-11 S pirit e) e) 00:00: - [facility] Toradol Toradol 2021-0 No 30mg Common (Ketorolac) (Ketorolac) 4-11 S pirit 00:00: - [facility] cefTRIAXone cefTRIAXone 0 No 1000mg Common Sodium Sodium 4-11 Spirit 00:00: - [facility] Toradol Toradol 0 No 30mg Common (Ketorolac) (Ketorolac) 4-11 S pirit 00:00: - [facility] cefTRIAXone cefTRIAXone 0 No 1000mg Common Sodium Sodium 4-11 Spirit 00:00: - [facility] Toradol Toradol 0 No 30mg Common (Ketorolac) (Ketorolac) 4-11 S pirit 00:00: - [facility] Amoxicillin Amoxicillin 2021-0 2021- No 1{table BID Amoxicilli -Pot -Pot [id number] t} n-Pot Clavulanate Clavulanate 00:00: 00:00 Clavulanat 875-125 MG 875-125 MG 00 :00 e 875-125 MG ceFAZolin 2020-09 No Route: IV, Me moria (ANES) Drug form: l 18:23: INJ, ONCE, Stop date: 09/26/21 12:23:00 LEAD QA ANALYST ondansetron 2020-09 No Route: IV, Memoria (ANES) Drug form: l 18:23: INJ, ONCE, Stop date: 09/26/21 12:23:00 LEAD QA ANALYST dexamethaso 2020-09 No Route: IV, Memoria ne (ANES) Drug form: l 18:23: INJ, ONCE, Stop date: 09/26/21 12:23:00 LEAD QA ANALYST lidocaine 2020-09 No Route: IV, Me moria (ANES) Drug form: l 18:23: INJ, ONCE, Stop date: 09/26/21 12:23:00 LEAD QA ANALYST propofol 2020-09 No Route: IV, Mem oria (ANES) Drug form: l 18:23: INJ, ONCE, Stop date: 09/26/21 12:23:00 LEAD QA ANALYST ceFAZolin 2020-09 No Route: IV, Me moria (ANES) 2- Drug form: l 18:23: INJ, ONCE, Stop date: 09/26/21 12:23:00 LEAD QA ANALYST ondansetron 2020-09 No Route: IV, Memoria (ANES) 2- Drug form: l 18:23: INJ, ONCE, Stop date: 09/26/21 12:23:00 LEAD QA ANALYST dexamethaso 2020-09 No Route: IV, Memoria ne (ANES) Drug form: l 18:23: INJ, ONCE, Stop date: 09/26/21 12:23:00 LEAD QA ANALYST lidocaine 2020-09 No Route: IV, Me moria (ANES) 2- Drug form: l 18:23: INJ, ONCE, Stop date: 09/26/21 12:23:00 LEAD QA ANALYST propofol 2020-09 No Route: IV, Mem oria (ANES) Drug form: l 18:23: INJ, ONCE, Stop date: 09/26/21 12:23:00 LEAD QA ANALYST ceFAZolin 2020-09 No Route: IV, Me moria (ANES) Drug form: l 18:23: INJ, ONCE, Stop date: 09/26/21 12:23:00 LEAD QA ANALYST ondansetron 2020-09 No Route: IV, Memoria (ANES) Drug form: l 18:23: INJ, ONCE, Stop date: 09/26/21 12:23:00 LEAD QA ANALYST dexamethaso 2020-09 No Route: IV, Memoria ne (ANES) Drug form: l 18:23: INJ, ONCE, Stop date: 09/26/21 12:23:00 LEAD QA ANALYST lidocaine 2020-09 No Route: IV, Me moria (ANES) 2- Drug form: l 18:23: INJ, ONCE, Stop date: 09/26/21 12:23:00 LEAD QA ANALYST ceFAZolin 2020-09 No Route: IV, Me moria (ANES) 2- Drug form: l 18:23: INJ, ONCE, Stop date: 09/26/21 12:23:00 LEAD QA ANALYST ondansetron 2020-09 No Route: IV, Memoria (ANES) 2- Drug form: l 18:23: INJ, ONCE, Stop date: 09/26/21 12:23:00 LEAD QA ANALYST dexamethaso 2020-09 No Route: IV, Memoria ne (ANES) Drug form: l 18:23: INJ, ONCE, Stop date: 09/26/21 12:23:00 LEAD QA ANALYST lidocaine 2020-09 No Route: IV, Me moria (ANES) 2- Drug form: l 18:23: INJ, ONCE, Stop date: 09/26/21 12:23:00 LEAD QA ANALYST propofol 2020-09 No Route: IV, Mem oria (ANES) 2- Drug form: l 18:23: INJ, ONCE, Stop date: 09/26/21 12:23:00 LEAD QA ANALYST propofol 2020-09 No Route: IV, Mem oria (ANES) Drug form: l 18:23: INJ, ONCE, Stop date: 09/26/21 12:23:00 LEAD QA ANALYST ceFAZolin 2020-09 No Route: IV, Me moria (ANES) Drug form: l 18:23: INJ, ONCE, Stop date: 09/26/21 12:23:00 LEAD QA ANALYST ondansetron 2020-09 No Route: IV, Memoria (ANES) 2 Drug form: l 18:23: INJ, ONCE, Stop date: 09/26/21 12:23:00 LEAD QA ANALYST dexamethaso 2020-09 No Route: IV, Memoria ne (ANES) 2- Drug form: l 18:23: INJ, ONCE, Stop date: 09/26/21 12:23:00 LEAD QA ANALYST lidocaine 2020-09 No Route: IV, Me moria (ANES) 2- Drug form: l 18:23: INJ, ONCE, Stop date: 09/26/21 12:23:00 LEAD QA ANALYST propofol 2020-09 No Route: IV, Mem oria (ANES) 2- Drug form: l 18:23: INJ, ONCE, Stop date: 09/26/21 12:23:00 LEAD QA ANALYST ceFAZolin 2020-09 No Route: IV, Me moria (ANES) 2- Drug form: l 18:23: INJ, ONCE, Stop date: 09/26/21 12:23:00 LEAD QA ANALYST ondansetron 2020-09 No Route: IV, Memoria (ANES) 2- Drug form: l 18:23: INJ, ONCE, Stop date: 09/26/21 12:23:00 LEAD QA ANALYST dexamethaso 2020-09 No Route: IV, Memoria ne (ANES) Drug form: l 18:23: INJ, ONCE, Stop date: 09/26/21 12:23:00 LEAD QA ANALYST lidocaine 2020-09 No Route: IV, Me moria (ANES) 2- Drug form: l 18:23: INJ, ONCE, Stop date: 09/26/21 12:23:00 LEAD QA ANALYST propofol 2020-09 No Route: IV, Mem oria (ANES) Drug form: l 18:23: INJ, ONCE, Stop date: 09/26/21 12:23:00 LEAD QA ANALYST ceFAZolin 2020-09 No Route: IV, Me moria (ANES) Drug form: l 18:23: INJ, ONCE, Stop date: 09/26/21 12:23:00 LEAD QA ANALYST ondansetron 2020-09 No Route: IV, Memoria (ANES) 2 Drug form: l 18:23: INJ, ONCE, Stop date: 09/26/21 12:23:00 LEAD QA ANALYST dexamethaso 2020-09 No Route: IV, Memoria ne (ANES) 2- Drug form: l 18:23: INJ, ONCE, Stop date: 09/26/21 12:23:00 LEAD QA ANALYST lidocaine 2020-09 No Route: IV, Me moria (ANES) 2- Drug form: l 18:23: INJ, ONCE, Stop date: 09/26/21 12:23:00 LEAD QA ANALYST propofol 2020-09 No Route: IV, Mem oria (ANES) 2- Drug form: l 18:23: INJ, ONCE, Stop date: 09/26/21 12:23:00 LEAD QA ANALYST ceFAZolin 2020-09 No Route: IV, Me moria (ANES) 2- Drug form: l 18:23: INJ, ONCE, Stop date: 09/26/21 12:23:00 LEAD QA ANALYST ondansetron 2020-09 No Route: IV, Memoria (ANES) 2- Drug form: l 18:23: INJ, ONCE, Stop date: 09/26/21 12:23:00 LEAD QA ANALYST dexamethaso 2020-09 No Route: IV, Memoria ne (ANES) 2- Drug form: l 18:23: INJ, ONCE, Stop date: 09/26/21 12:23:00 LEAD QA ANALYST lidocaine 2020-09 No Route: IV, Me moria (ANES) 2- Drug form: l 18:23: INJ, ONCE, Stop date: 09/26/21 12:23:00 LEAD QA ANALYST propofol 2020-09 No Route: IV, Mem oria (ANES) 2 Drug form: l 18:23: INJ, ONCE, Stop date: 09/26/21 12:23:00 LEAD QA ANALYST ceFAZolin 2020-09 No Route: IV, Me moria (ANES) 2- Drug form: l 18:23: INJ, ONCE, Stop date: 09/26/21 12:23:00 LEAD QA ANALYST ondansetron 2020-09 No Route: IV, Memoria (ANES) 2- Drug form: l 18:23: INJ, ONCE, Stop date: 09/26/21 12:23:00 LEAD QA ANALYST dexamethaso 2020-09 No Route: IV, Memoria ne (ANES) 2- Drug form: l 18:23: INJ, ONCE, Stop date: 09/26/21 12:23:00 LEAD QA ANALYST lidocaine 2020-09 No Route: IV, Me moria (ANES) 2- Drug form: l 18:23: INJ, ONCE, Stop date: 09/26/21 12:23:00 LEAD QA ANALYST propofol 2020-09 No Route: IV, Mem oria (ANES) 2- Drug form: l 18:23: INJ, ONCE, Stop date: 09/26/21 12:23:00 LEAD QA ANALYST midazolam 2020-09 No Route: IV, Me moria (ANES) 2-31 Drug form: l 18:22: SOLN, [place] 00 ONCE, Stop date: 09/26/21 12:22:00 LEAD QA ANALYST fentaNYL 2020-09 No Route: IV, Mem oria (ANES) 2- Drug form: l 18:22: INJ, ONCE, Michael 00 Stop date: 09/26/21 12:22:00 LEAD QA ANALYST midazolam 2020-09 No Route: IV, Me moria (ANES) 2- Drug form: l 18:22: SOLN, Michael 00 ONCE, Stop date: 09/26/21 12:22:00 LEAD QA ANALYST fentaNYL 2020-09 No Route: IV, Mem oria (ANES) 2- Drug form: l 18:22: INJ, ONCE, [place] 00 Stop date: 09/26/21 12:22:00 LEAD QA ANALYST midazolam 2020-09 No Route: IV, Me moria (ANES) 2- Drug form: l 18:22: SOLN, Michael 00 ONCE, Stop date: 09/26/21 12:22:00 LEAD QA ANALYST fentaNYL 2020-09 No Route: IV, Mem oria (ANES) 2- Drug form: l 18:22: INJ, ONCE, [place] Stop date: 09/26/21 12:22:00 LEAD QA ANALYST midazolam 2020-09 No Route: IV, Me moria (ANES) 2- Drug form: l 18:22: SOLN, Michael 00 ONCE, Stop date: 09/26/21 12:22:00 LEAD QA ANALYST fentaNYL 2020-09 No Route: IV, Mem oria (ANES) 2- Drug form: l 18:22: INJ, ONCE, Michael 00 Stop date: 09/26/21 12:22:00 LEAD QA ANALYST midazolam 2020-09 No Route: IV, Me moria (ANES) 2-31 Drug form: l 18:22: SOLN, [place] 00 ONCE, Stop date: 09/26/21 12:22:00 LEAD QA ANALYST fentaNYL 2020-09 No Route: IV, Mem oria (ANES) 2-31 Drug form: l 18:22: INJ, ONCE, [place] 00 Stop date: 09/26/21 12:22:00 LEAD QA ANALYST midazolam 2020-09 No Route: IV, Me moria (ANES) 2-31 Drug form: l 18:22: SOLN, Michael 00 ONCE, Stop date: 09/26/21 12:22:00 LEAD QA ANALYST fentaNYL 2020-09 No Route: IV, Mem oria (ANES) 2-31 Drug form: l 18:22: INJ, ONCE, Michael 00 Stop date: 09/26/21 12:22:00 LEAD QA ANALYST midazolam 2020-09 No Route: IV, Me moria (ANES) 2-31 Drug form: l 18:22: SOLN, Michael 00 ONCE, Stop date: 09/26/21 12:22:00 LEAD QA ANALYST fentaNYL 2020-09 No Route: IV, Mem oria (ANES) 2-31 Drug form: l 18:22: INJ, ONCE, Michael Stop date: 09/26/21 12:22:00 LEAD QA ANALYST midazolam 2020-09 No Route: IV, Me moria (ANES) 2-31 Drug form: l 18:22: SOLN, Michael 00 ONCE, Stop date: 09/26/21 12:22:00 LEAD QA ANALYST fentaNYL 2020-09 No Route: IV, Mem oria (ANES) 2-31 Drug form: l 18:22: INJ, ONCE, [place] Stop date: 09/26/21 12:22:00 LEAD QA ANALYST midazolam 2020-09 No Route: IV, Me moria (ANES) 2-31 Drug form: l 18:22: SOLN, Michael 00 ONCE, Stop date: 09/26/21 12:22:00 LEAD QA ANALYST fentaNYL 2020-09 No Route: IV, Mem oria (ANES) 2-31 Drug form: l 18:22: INJ, ONCE, Michael 00 Stop date: 09/26/21 12:22:00 LEAD QA ANALYST Lactated 2020-09 No Route: IV, Mem oria Ringers 2-31 Total l Injection 17:40: Volume: Roz nn IV (ANES) 00 1,000, 1000 mL Start date: 09/26/21 11:40:00 LEAD QA ANALYST, Stop date: 09/26/21 12:40:00 LEAD QA ANALYST Lactated 2020-09 No Route: IV, Mem oria Ringers 2-31 Total l Injection 17:40: Volume: Roz nn IV (ANES) 00 1,000, 1000 mL Start date: 09/26/21 11:40:00 LEAD QA ANALYST, Stop date: 09/26/21 12:40:00 LEAD QA ANALYST Lactated 2020-09 No Route: IV, Mem oria Ringers 2-31 Total l Injection 17:40: Volume: Roz nn IV (ANES) 00 1,000, 1000 mL Start date: 09/26/21 11:40:00 LEAD QA ANALYST, Stop date: 09/26/21 12:40:00 LEAD QA ANALYST Lactated 2020-09 No Route: IV, Mem oria Ringers 2-31 Total l Injection 17:40: Volume: Roz nn IV (ANES) 00 1,000, 1000 mL Start date: 09/26/21 11:40:00 LEAD QA ANALYST, Stop date: 09/26/21 12:40:00 LEAD QA ANALYST Lactated 2020-09 No Route: IV, Mem oria Ringers 2-31 Total l Injection 17:40: Volume: Roz nn IV (ANES) 00 1,000, 1000 mL Start date: 09/26/21 11:40:00 LEAD QA ANALYST, Stop date: 09/26/21 12:40:00 LEAD QA ANALYST Lactated 2020-09 No Route: IV, Mem oria Ringers 2-31 Total l Injection 17:40: Volume: Roz nn IV (ANES) 00 1,000, 1000 mL Start date: 09/26/21 11:40:00 LEAD QA ANALYST, Stop date: 09/26/21 12:40:00 LEAD QA ANALYST Lactated 2020-09 No Route: IV, Mem oria Ringers 2-31 Total l Injection 17:40: Volume: Roz nn IV (ANES) 00 1,000, 1000 mL Start date: 09/26/21 11:40:00 LEAD QA ANALYST, Stop date: 09/26/21 12:40:00 LEAD QA ANALYST Lactated 2020-09 No Route: IV, Mem oria Ringers 2-31 Total l Injection 17:40: Volume: Roz nn IV (ANES) 00 1,000, 1000 mL Start date: 09/26/21 11:40:00 LEAD QA ANALYST, Stop date: 09/26/21 12:40:00 LEAD QA ANALYST Lactated 2020-09 No Route: IV, Mem oria Ringers 2-31 Total l Injection 17:40: Volume: Roz nn IV (ANES) 00 1,000, 1000 mL Start date: 09/26/21 11:40:00 LEAD QA ANALYST, Stop date: 09/26/21 12:40:00 LEAD QA ANALYST Calcium 2020-09 No 1,000 mL, Memor ia Chloride 2-31 Rate: 75 l 0.0014 15:58: ml/hr, [place] MEQ/ML / 00 Infuse Potassium over: 13.3 Chloride hr, Route: 0.004 IV, Dosing MEQ/ML / Weight Sodium 99.545 kg, Chloride Total 0.103 Volume: MEQ/ML / 1,000, Sodium Start Lactate date: 0.028 09/26/21 MEQ/ML 9:58:00 Injectable LEAD QA ANALYST, Solution Duration: 30 day, Stop date: 10/26/21 9:57:00 LEAD QA ANALYST, BSA: 2.22 m2, 0 Calcium 2020-09 No 1,000 mL, Memor ia Chloride 2-31 Rate: 75 l 0.0014 15:58: ml/hr, [place] MEQ/ML / 00 Infuse Potassium over: 13.3 Chloride hr, Route: 0.004 IV, Dosing MEQ/ML / Weight Sodium 99.545 kg, Chloride Total 0.103 Volume: MEQ/ML / 1,000, Sodium Start Lactate date: 0.028 09/26/21 MEQ/ML 9:58:00 Injectable LEAD QA ANALYST, Solution Duration: 30 day, Stop date: 10/26/21 9:57:00 LEAD QA ANALYST, BSA: 2.22 m2, 0 Calcium 2020-09 No 1,000 mL, Memor ia Chloride 2-31 Rate: 75 l 0.0014 15:58: ml/hr, Michael MEQ/ML / 00 Infuse Potassium over: 13.3 Chloride hr, Route: 0.004 IV, Dosing MEQ/ML / Weight Sodium 99.545 kg, Chloride Total 0.103 Volume: MEQ/ML / 1,000, Sodium Start Lactate date: 0.028 09/26/21 MEQ/ML 9:58:00 Injectable LEAD QA ANALYST, Solution Duration: 30 day, Stop date: 10/26/21 9:57:00 LEAD QA ANALYST, BSA: 2.22 m2, 0 Calcium 2020-09 No 1,000 mL, Memor ia Chloride 2-31 Rate: 75 l 0.0014 15:58: ml/hr, Michael MEQ/ML / 00 Infuse Potassium over: 13.3 Chloride hr, Route: 0.004 IV, Dosing MEQ/ML / Weight Sodium 99.545 kg, Chloride Total 0.103 Volume: MEQ/ML / 1,000, Sodium Start Lactate date: 0.028 09/26/21 MEQ/ML 9:58:00 Injectable LEAD QA ANALYST, Solution Duration: 30 day, Stop date: 10/26/21 9:57:00 LEAD QA ANALYST, BSA: 2.22 m2, 0 Calcium 2020-1 No 1,000 mL, Memor ia Chloride 2-31 Rate: 75 l 0.0014 15:58: ml/hr, Michael MEQ/ML / 00 Infuse Potassium over: 13.3 Chloride hr, Route: 0.004 IV, Dosing MEQ/ML / Weight Sodium 99.545 kg, Chloride Total 0.103 Volume: MEQ/ML / 1,000, Sodium Start Lactate date: 0.028 09/26/21 MEQ/ML 9:58:00 Injectable LEAD QA ANALYST, Solution Duration: 30 day, Stop date: 10/26/21 9:57:00 LEAD QA ANALYST, BSA: 2.22 m2, 0 Calcium 2020-1 No 1,000 mL, Memor ia Chloride 2-31 Rate: 75 l 0.0014 15:58: ml/hr, Michael MEQ/ML / 00 Infuse Potassium over: 13.3 Chloride hr, Route: 0.004 IV, Dosing MEQ/ML / Weight Sodium 99.545 kg, Chloride Total 0.103 Volume: MEQ/ML / 1,000, Sodium Start Lactate date: 0.028 09/26/21 MEQ/ML 9:58:00 Injectable LEAD QA ANALYST, Solution Duration: 30 day, Stop date: 10/26/21 9:57:00 LEAD QA ANALYST, BSA: 2.22 m2, 0 Calcium 2020-1 No 1,000 mL, Memor ia Chloride 2-31 Rate: 75 l 0.0014 15:58: ml/hr, Michael MEQ/ML / 00 Infuse Potassium over: 13.3 Chloride hr, Route: 0.004 IV, Dosing MEQ/ML / Weight Sodium 99.545 kg, Chloride Total 0.103 Volume: MEQ/ML / 1,000, Sodium Start Lactate date: 0.028 09/26/21 MEQ/ML 9:58:00 Injectable LEAD QA ANALYST, Solution Duration: 30 day, Stop date: 10/26/21 9:57:00 LEAD QA ANALYST, BSA: 2.22 m2, 0 Calcium 2020-09 No 1,000 mL, Memor ia Chloride 2-31 Rate: 75 l 0.0014 15:58: ml/hr, [place] MEQ/ML / 00 Infuse Potassium over: 13.3 Chloride hr, Route: 0.004 IV, Dosing MEQ/ML / Weight Sodium 99.545 kg, Chloride Total 0.103 Volume: MEQ/ML / 1,000, Sodium Start Lactate date: 0.028 21 MEQ/ML 9:58:00 Injectable LEAD QA ANALYST, Solution Duration: 30 day, Stop date: 10/26/21 9:57:00 LEAD QA ANALYST, BSA: 2.22 m2, 0 Calcium 2020-09 No 1,000 mL, Memor ia Chloride 2-31 Rate: 75 l 0.0014 15:58: ml/hr, [place] MEQ/ML / 00 Infuse Potassium over: 13.3 Chloride hr, Route: 0.004 IV, Dosing MEQ/ML / Weight Sodium 99.545 kg, Chloride Total 0.103 Volume: MEQ/ML / 1,000, Sodium Start Lactate date: 0.028 21 MEQ/ML 9:58:00 Injectable LEAD QA ANALYST, Solution Duration: 30 day, Stop date: 10/26/21 9:57:00 LEAD QA ANALYST, BSA: 2.22 m2, 0 folic acid 2020-09 [...] 2-29 cap, PO, l capsule 15:14: Daily [place] tamsulosin 2020-09 Yes 0.4 mg = 1 M emoria 0.4 mg oral 2-29 cap, PO, l capsule 15:14: Daily Michael 00 tamsulosin 2020-09 Yes 0.4 mg = 1 M emoria 0.4 mg oral 2-29 cap, PO, l capsule 15:14: Daily [place] 00 tamsulosin 2020-09 Yes 0.4 mg = [...] le} 1000 MG 00:00: 00 hydroCHLORO hydroCHLORO 2021-0 No 1{table QD hydroCHLOR [...] a 1-15 PO, Daily, l 20:18: 0 [place] 00 Refill(s) levothyroxi Yes 75 Memori a ne 1-15 microgram, l 20:18: PO, Daily, Michael 00 0 Refill(s) finasteride Yes 5 mg = 1 Me moria 1-15 tab, PO, l 20:18: Daily, # [place] 30 tab, 0 Refill(s) lovastatin Yes 20 mg, PO, M emoria 1-15 0 l 20:18: Refill(s) [place] clopidogrel Yes 75 mg = 1 M emoria 75 mg oral 1-15 tab, PO, l tablet 20:18: Daily, # [place] 00 30 tab, 0 Refill(s) losartan Yes [...] M emoria 1-15 0 l 20:18: Refill(s) [place] clopidogrel Yes 75 mg = 1 M [...] tab, PO, l 20:18: Daily, # Michael 30 tab, 0 Refill(s) lovastatin 0 Yes 20 mg, PO, M emoria 1-15 0 l 20:18: Refill(s) Michael clopidogrel Yes 75 mg = 1 M emoria 75 mg oral 1-15 tab, PO, l tablet 20:18: Daily, # [place] 00 30 tab, 0 Refill(s) losartan 0 Yes 100 mg, Memori a 1-15 PO, Daily, l 20:18: 0 [place] 00 Refill(s) levothyroxi Yes 75 Memori a ne 1-15 microgram, l 20:18: PO, Daily, 00 0 Refill(s) finasteride Yes 5 mg = 1 Me moria 1-15 tab, PO, l 20:18: Daily, # 30 tab, 0 Refill(s) lovastatin Yes 20 mg, PO, M emoria 1-15 0 l 20:18: Refill(s) [place] 00 clopidogrel Yes 75 mg = 1 [...] 1-15 0 l 20:18: Refill(s) Michael clopidogrel 0 Yes 75 mg = 1 M emoria 75 mg oral 1-15 tab, PO, l tablet 20:18: Daily, # Michael 00 30 tab, 0 Refill(s) losartan 0 Yes 100 mg, Memori a 1-15 PO, Daily, l 20:18: 0 [place] 00 Refill(s) levothyroxi Yes 75 Memori a ne 1-15 microgram, l 20:18: PO, Daily, 0 Refill(s) finasteride Yes 5 mg = 1 Me moria 1-15 tab, PO, l 20:18: Daily, # 30 tab, 0 Refill(s) lovastatin 0 Yes 20 mg, PO, M emoria 1-15 0 l 20:18: Refill(s) [place] 00 clopidogrel Yes 75 mg = 1 [...] 1-15 0 l 20:18: Refill(s) Accu-Chek Accu-Chek 2018- No Accu-Chek Tania Plus [...] Plus - - 00:00: - 00 aspirin 2011-0 Yes 81 mg, PO, Brodie douglas 6-22 Daily l 22:27: [place] [id number] aspirin 2010-0 Yes 81 mg, PO, Brodie douglas 6-22 Daily l 22:27: [place] [id number] aspirin 2010-0 Yes 81 mg, PO, Brodie douglas 6-22 Daily l 22:27: [place] [id number] aspirin 2010- Yes 81 mg, PO, Brodie douglas 6-22 Daily l 22:27: [place] [id number] aspirin 2010- Yes 81 mg, PO, Brodie douglas 6-22 Daily l 22:27: [place] [id number] aspirin 2010-0 Yes 81 mg, PO, Brodie douglas 6-22 Daily l 22:27: [place] [id number] aspirin 2010- Yes 81 mg, PO, Brodie douglas 6-22 Daily l 22:27: [place] [id number] metFORmin Yes 500 mg, Memor ia 6-22 PO, 1 tab l 22:27: with 14 breakfast, 1 tab at noon, 2 at dinner metFORmin Yes 500 mg, Memor ia 6-22 PO, 1 tab l 22:27: with 14 breakfast, 1 tab at noon, 2 at dinner metFORmin Yes 500 mg, Memor ia 6-22 PO, 1 tab l 22:27: with 14 breakfast, 1 tab at noon, 2 at dinner metFORmin Yes 500 mg, Memor ia 6-22 PO, 1 tab l 22:27: with 14 breakfast, 1 tab at noon, 2 at dinner metFORmin Yes 500 mg, Memor ia 6-22 PO, 1 tab l 22:27: with 14 breakfast, 1 tab at noon, 2 at dinner metFORmin Yes 500 mg, Memor ia 6-22 PO, 1 tab l 22:27: with 14 breakfast, 1 tab at noon, 2 at dinner metFORmin Yes 500 mg, Memor ia 6-22 PO, 1 tab l 22:27: with 14 breakfast, 1 tab at noon, 2 at dinner Tamsulosin Tamsulosin Yes [place] 1 capsule Common HCl HCl [facility] metFORMIN metFORMIN No metFORMIN HCl [...] Source Systolic blood 2022-08-13 17:39:00 151 mm[Hg] [facility] pressure [facility] Diastolic blood 2022-08-13 17:39:00 94 mm[Hg] [facility] Heart rate 2022-08-13 17:39:00 82 /min [facility] Body temperature 2022-08-13 17:39:00 36.33 [facility] Respiratory rate 2022-08-13 17:39:00 18 /min [facility] Oxygen saturation in 2022-08-13 17:39:00 96 /min [facility] Arterial blood by [facility] Pulse oximetry Branch Body weight 2022-08-13 09:43:00 89.994 kg [facility] BMI 2022-08-13 09:43:00 29.30 kg/m2 [facility] Body height 2022-08-13 01:42:00 175.3 cm [facility] height 2022-06-19 11:00:00 69.5 [in_i] Common [facility] weight 2022-06-19 11:00:00 212 [lb_av] Common S [facility] temperature 2022-06-19 11:00:00 98.6 [degF] Common [facility] bmi 2022-06-19 11:00:00 30.85 kg/m2 Common S [facility] oximetry 2022-06-19 11:00:00 96 % Common S [facility] respiratory rate 2022-06-19 11:00:00 17 /min [facility] blood pressure 2022-06-19 11:00:00 134 mm[Hg] Common [facility] systolic [facility] blood pressure 2022-06-19 11:00:00 80 mm[Hg] Common [facility] - diastolic [facility] height 2022-06-19 10:40:00 69.5 [in_i] Common [facility] weight 2022-06-19 10:40:00 212 [lb_av] Common [facility] temperature 2022-06-19 10:40:00 98.6 [degF] Common [facility] bmi 2022-06-19 10:40:00 30.85 kg/m2 Common [facility] oximetry 2022-06-19 10:40:00 96 % Common [facility] respiratory rate 2022-06-19 10:40:00 17 /min Comm on [facility] blood pressure 2022-06-19 10:40:00 134 mm[Hg] [facility] blood pressure 2022-06-19 10:40:00 80 mm[Hg] Common [facility] - diastolic [facility] height 2022-06-15 11:20:00 69.5 [in_i] Common [facility] weight 2022-06-15 11:20:00 212 [lb_av] [facility] 2022-06-15 11:20:00 98.2 [degF] Common S [facility] bmi 2022-06-15 11:20:00 30.85 kg/m2 Common S [facility] oximetry 2022-06-15 11:20:00 97 % [facility] respiratory rate 2022-06-15 11:20:00 16 /min Comm on [facility] blood pressure 2022-06-15 11:20:00 134 mm[Hg] Common [facility] - systolic [facility] blood pressure 2022-06-15 11:20:00 76 mm[Hg] Common [facility] - diastolic [facility] Body height 2022-05-19 13:09:00 175.3 cm [facility] Body weight 2022-05-19 13:09:00 95.255 kg [facility] BMI 2022-05-19 13:09:00 31.01 kg/m2 [facility] height 2022-02-04 09:20:00 69.5 [in_i] Common [facility] weight 2022-02-04 09:20:00 211.8 [lb_av] [facility] temperature 2022-02-04 09:20:00 97.5 [degF] Common [facility] bmi 2022-02-04 09:20:00 30.83 kg/m2 Common S [facility] oximetry 2022-02-04 09:20:00 95 % [facility] respiratory rate 2022-02-04 09:20:00 16 /min Comm on [facility] blood pressure 2022-02-04 09:20:00 134 mm[Hg] Common [facility] - systolic [facility] blood pressure 2022-02-04 09:20:00 78 mm[Hg] Common [facility] - diastolic [facility] height 2022-01-05 14:40:00 69.5 [in_i] Common S [facility]irit [facility] weight 2022-01-05 14:40:00 210.4 [lb_av] Common [facility] temperature 2022-01-05 14:40:00 98.1 [degF] Common S [facility] bmi 2022-01-05 14:40:00 30.62 kg/m2 Common S [facility] oximetry 2022-01-05 14:40:00 97 % [facility] 2022-01-05 14:40:00 16 /min Comm on [facility] blood pressure 2022-01-05 14:40:00 138 mm[Hg] [facility] blood pressure 2022-01-05 14:40:00 74 mm[Hg] [facility] height 2021-12-22 08:40:00 69.5 [in_i] Common [facility] weight 2021-12-22 08:40:00 216.8 [lb_av] Common [facility] temperature 2021-12-22 08:40:00 97.5 [degF] Common [facility] bmi 2021-12-22 08:40:00 31.55 kg/m2 Common [facility] oximetry 2021-12-22 08:40:00 97 % Common [facility] respiratory rate 2021-12-22 08:40:00 16 /min Comm on [facility] blood pressure 2021-12-22 08:40:00 136 mm[Hg] [facility] blood pressure 2021-12-22 08:40:00 78 mm[Hg] [facility] height 2021-08-26 16:00:00 69.5 [in_i] Common [facility] weight 2021-08-26 16:00:00 213.2 [lb_av] [facility] temperature 2021-08-26 16:00:00 98.3 [degF] Common [facility] bmi 2021-08-26 16:00:00 31.03 kg/m2 [facility] oximetry 2021-08-26 16:00:00 97 % [facility] respiratory rate 2021-08-26 16:00:00 16 /min Comm on [facility] blood pressure 2021-08-26 16:00:00 130 mm[Hg] Common [facility] - systolic [facility] blood pressure 2021-08-26 16:00:00 72 mm[Hg] Common [facility] - diastolic [facility] height 2021-06-24 08:00:00 69.5 [in_i] [facility] weight 2021-06-24 08:00:00 221.8 [lb_av] [facility] temperature 2021-06-24 08:00:00 99.0 [degF] Common [facility] bmi 2021-06-24 08:00:00 32.28 kg/m2 [facility] oximetry 2021-06-24 08:00:00 97 % [facility] respiratory rate 2021-06-24 08:00:00 16 /min Comm on [facility] blood pressure 2021-06-24 08:00:00 138 mm[Hg] Common [facility] - systolic [facility] blood pressure 2021-06-24 08:00:00 88 mm[Hg] Common [facility] - diastolic [facility] height 2021-03-25 08:40:00 69.5 [in_i] Common [facility] weight 2021-03-25 08:40:00 226.8 [lb_av] [facility] temperature 2021-03-25 08:40:00 97.8 [degF] [facility] bmi 2021-03-25 08:40:00 33.01 kg/m2 Common S [facility] oximetry 2021-03-25 08:40:00 98 % Common S pirit - [facility] respiratory rate 2021-03-25 08:40:00 16 /min Comm on [facility] - [facility] blood pressure 2021-03-25 08:40:00 136 mm[Hg] Common [facility] - systolic [facility] blood pressure 2021-03-25 08:40:00 76 mm[Hg] Common [facility] - diastolic [facility] Systolic (mm Hg) 2023-03-26 14:22:00 Brodie rial [place] Diastolic (mm Hg) 2023-03-26 14:22:00 Mem orial [facility] Heart Rate 2023-03-26 14:22:00 [facility] [place] Height 2023-03-26 14:22:00 5 [ft_i] [facility] [place] Weight 2023-03-26 14:22:00 [facility] [place] BMI Calculated 2023-03-26 14:22:00 Memori al Michael Systolic (mm Hg) 2023-02-16 15:48:00 Brodie rial [place] Diastolic (mm Hg) 2023-02-16 15:48:00 Mem orial Michael Heart Rate 2023-02-16 15:48:00 [facility] Height 2023-02-16 15:48:00 5 [ft_i] [facility] Weight 2023-02-16 15:48:00 [facility] BMI Calculated 2023-02-16 15:48:00 Memori al Michael Height 2023-02-12 13:17:00 5 [ft_i] [facility] Weight 2023-02-12 13:17:00 [facility] BMI Calculated 2023-02-12 13:17:00 Memori al [facility] Systolic (mm Hg) 2023-02-12 13:17:00 Brodie rial [place] Diastolic (mm Hg) 2023-02-12 13:17:00 Mem orial Michael Heart Rate 2023-02-12 13:17:00 Memorial [place] Systolic (mm Hg) 2023-01-12 20:10:00 Brodie rial Michael Diastolic (mm Hg) 2023-01-12 20:10:00 Mem orial Michael Heart Rate 2023-01-12 20:10:00 [facility] [place] Height 2023-01-12 20:10:00 5 [ft_i] [facility] Weight 2023-01-12 20:10:00 [facility] BMI Calculated 2023-01-12 20:10:00 Memori al Michael Respitory Rate 2021-09-26 19:20:00 Memori al [place] Systolic (mm Hg) 2021-09-26 19:20:00 Brodie rial Michael Diastolic (mm Hg) 2021-09-26 19:20:00 Mem orial [place] Respitory Rate 2021-09-26 19:05:00 Memori al [place] Systolic (mm Hg) 2021-09-26 19:05:00 Brodie rial [place] Diastolic (mm Hg) 2021-09-26 19:05:00 Mem orial Michael Respitory Rate 2021-09-26 18:50:00 Memori al Michael Systolic (mm Hg) 2021-09-26 18:50:00 Brodie rial Michael Diastolic (mm Hg) 2021-09-26 18:50:00 Mem orial Michael Weight 2021-09-26 16:27:00 [facility] BMI Calculated 2021-09-26 16:27:00 Memori al [place] Heart Rate 2021-09-26 15:54:00 [facility] [place] Height 2021-09-24 19:39:00 175.26 cm [facility] Height 2021-09-24 15:25:00 175.26 cm [facility] Weight 2021-09-24 15:25:00 [facility] BMI Calculated 2021-09-24 15:25:00 Memori al [place] Procedures Procedure Date / Time Performing Clinician Source Performed NOTICE OF PRIVACY 2023-01-07 13:09:51 Doctor Unassigned, No Univ [facility] PRACTICES Name Medical Branch CONSENT/REFUSAL FOR 2023-01-07 13:09:26 [facility], [facility] Name Medical Branch ASSIGNMENT OF BENEFITS 2023-01-07 13:08:59 Doctor Unassigned, No [facility] Name Medical Branch TRANSTHORACIC ECHO (TTE) 2022-08-13 20:02:00 Andre David [facility] COMPLETE W/ CONTRAST Medical [facility] POCT GLUCOSE (AUTOMATED) 2022-08-13 17:40:00 Alexandre Montemayor [facility] POCT GLUCOSE (AUTOMATED) 2022-08-13 13:32:00 Alexandre Montemayor [facility] MAGNESIUM 2022-08-13 09:50:00 Enrico [facility] BASIC METABOLIC PANEL 2022-08-13 09:50:00 Alexandre Montemayor [facility] (NA, K, CL, CO2, Medical Branch GLUCOSE, BUN, CREATININE, CA) CBC WITH DIFF 2022-08-13 09:50:00 Enrico [facility] PHOSPHORUS 2022-08-13 03:53:00 Enrico [facility] TROPONIN I 2022-08-13 02:32:00 [facility] POCT GLUCOSE (AUTOMATED) 2022-08-13 01:22:00 Alexandre Montemayor [facility] CT ANGIOGRAM CHEST 2022-08-12 19:53:05 Leonora Ruby [facility] CT ANGIOGRAM 2022-08-12 19:53:05 [facility] Branch HB ECG ROUTINE & RHYTHM 2022-08-12 19:09:59 Leonora Ruby [facility] TROPONIN I 2022-08-12 19:08:00 Tung [facility] HB ECG ROUTINE & RHYTHM 2022-08-12 18:01:56 Leonora Ruby [facility] LIPASE 2022-08-12 17:05:00 Tung [facility] TROPONIN I 2022-08-12 17:05:00 [facility] COMP. METABOLIC PANEL 2022-08-12 17:05:00 Leonora Ruby [facility] ([id number]) [facility] CBC WITH DIFF 2022-08-12 17:05:00 [facility] GLYCOSYLATED HEMOGLOBIN 2022-08-12 17:05:00 Andre David [facility] (A1C) [facility] PROTHROMBIN TIME / INR 2022-08-12 17:05:00 Leonora Ruby [facility] URINALYSIS 2022-08-12 17:05:00 Leonora Ruby [facility] N-TERMINAL PRO-BNP 2022-08-12 17:05:00 Leonora Ruby [facility] HB ECG ROUTINE & RHYTHM 2022-08-12 16:51:46 Leonora Ruby [facility] CONSENT/REFUSAL FOR 2022-08-12 16:16:12 Doctor Unassigned, No Un [facility] DIAGNOSIS AND TREATMENT Name [facility] REFERRAL- 2022-06-16 05:01:00 Doctor Unassigned, No Univer [facility] REQUEST/RESPONSE Name [facility] CT, urogram 2018-07-07 00:00:00 [place] [facility] 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[facility] n amputation<sup>1</sup> Laminectomy<sup>2</sup> [facility] Procedure on [facility] foot<sup>3</sup> Plan of Care Planned Activity Planned Date Details Comments Source Diagnostic Test 2018-07-07 cytology, urine [facility] Pending 00:00:00 [code = cytology, Group urine] Encounters Start End Encounter Admission Attending Care Care Encounter Source Date/Time Date/Time Type Type Clinicians Facility Department ID 2022-09-15 Outpatient MELANI Oliveira [facility] [id number] Common 09:28:02 Maira 12849 [facility] 2021-10-22 Outpatient OliveiraMELANI shah [facility] [id number] Common 14:27:24 Maira 75617 [facility] 2021-10-22 Outpatient OliveiraMELANI shah [facility] [id number] Common 14:18:00 Maira 52988 [facility] 2021-10-22 Outpatient MELANI Hodges [facility] [id number] Common 13:35:45 Regina 27363 [facility] 2021-10-22 Outpatient [place], MELANI [facility] [id number] Common 12:41:58 Regina 85554 [facility] 2021-10-22 Outpatient [place], STLMLC STLMLC [id number] Common 12:40:52 Regina 02291 [facility] 2021-10-22 Outpatient [place], STLMLC STLMLC [id number] Common 12:12:33 Regina 18707 [facility] 2021-10-22 Outpatient [place], STLMLC STLMLC [id number] Common 11:56:49 Regina 22546 [facility] 2021-10-22 Outpatient [place], STLMLC STLMLC [id number] Common 11:56:09 Regina 68543 [facility] 2021-10-22 Outpatient [place], STLMLC STLMLC [id number] Common 11:21:52 Regina 14659 [facility] 2021-10-22 Outpatient [place], STLMLC STLMLC [id number] Common 11:07:15 Regina 88369 [facility] 2021-10-22 Outpatient [place], STLMLC STLMLC [id number] Common 11:06:53 Regina 56406 [facility] 2021-10-22 Outpatient [place], STLMLC STLMLC [id number] Common 10:59:53 Regina 71783 [facility] 2021-07-28 Emergency [facility] [id number] Univers 23:28:16 [facility] 2023-08-26 2023-08-26 Outpatient MHIE MHIE [id number] Memoria 09:00:00 09:00:00 05 eb Rodriguez 2023-04-02 2023-04-02 Outpatient MHIE MHIE [id number] Memoria 09:15:00 09:15:00 04 eb Rodriguez 2023-03-26 2023-03-27 Outpatient MHIE MNA [id number] Memoria 14:45:00 04:59:59 Neurology 04 l Renetta Rodriguez 2023-03-26 2023-03-26 Outpatient STEPHANIE Hays [id number] 09:45:00 23:59:59 Jeison 04 Grayson 2023-03-26 2023-03-26 Ambulatory MHIE MNA [id number] Memoria 14:45:00 14:45:00 Pre-Reg Neurology 02 eb Rodriguez 2023-03-26 2023-03-26 Outpatient MHIE MHIE [id number] Memoria 09:45:00 09:45:00 04 eb Rodriguez 2023-03-26 2023-03-26 Outpatient MHIE MHIE [id number] Memoria 09:45:00 09:45:00 02 eb Rodriguez 2023-03-26 2023-03-26 Outpatient MHIE MHIE [id number] Memoria 09:45:00 09:45:00 02 eb Rodriguez 2023-03-26 2023-03-26 Outpatient SAADIA HaysMISCHER MHMISCHER [id number] 09:45:00 09:45:00 Jeison 02 [place] 2023-02-16 2023-02-17 Outpatient MHIE MNA [id number] Memoria 16:00:00 04:59:59 Neurology 03 eb Rodriguez 2023-02-16 2023-02-17 Outpatient MHIE MNA [id number] Memoria 16:00:00 04:59:59 Neurology 03 eb Rodriguez 2023-02-16 2023-02-16 Outpatient SAADIA HaysMISCHER MHMISCHER [id number] 11:00:00 23:59:59 Jeison 03 [place] 2023-02-16 2023-02-16 Outpatient MHIE MHIE [id number] Memoria 11:00:00 11:00:00 03 eb Rodriguez 2023-02-12 2023-02-13 Outpatient MHIE MNA [id number] Memoria 13:15:00 04:59:59 Neurology 01 eb Rodriguez 2023-02-12 2023-02-13 Outpatient MHIE MNA [id number] Memoria 13:15:00 04:59:59 Neurology 01 eb Rodriguez 2023-02-12 2023-02-12 Outpatient SAADIA HaysMISCHER MHMISCHER [id number] 08:15:00 23:59:59 Jeison 01 [place] 2023-02-12 2023-02-12 Outpatient MHIE MHIE [id number] Memoria 08:15:00 08:15:00 01 eb Rodriguez 2023-01-12 2023-01-13 Outpatient MHIE MNA [id number] Memoria 20:15:00 04:59:59 Neurology 00 l Renetta Rodriguez 2023-01-12 2023-01-13 Outpatient MHIE MNA [id number] Memoria 20:15:00 04:59:59 Neurology 00 l Renetta Rodriguez 2023-01-12 2023-01-12 [id number] 15:15:00 23:59:59 Jeison 00 [place] 2023-01-12 2023-01-12 Outpatient MHIE MHIE [id number] Memoria 15:15:00 15:15:00 00 eb Rodriguez 2023-01-07 2023-01-07 Hospital Radiology [facility] 1.2.840.114 [id number] Univers 08:11:54 23:59:00 Encounter [place] 350.1.13.10 [place] [id number] [facility] 8[address] Branch 2023-01-07 2023-01-07 Outpatient R RADIOLOGY [facility] [id number] Univers 00:00:00 23:59:00 ity of [facility] 2022-10-28 2022-10-28 (TEL) STLMLC STLMLC [id number] Co mmon 00:00:00 00:00:00 [facility] 2022-08-14 2022-08-14 Transition ELIUD Rice 1.2.840.114 [id number] Univers 00:00:00 00:00:00 of Care Carolinasyed ELAM 350.1.13.10 it y [place] [id number] [facility] [address] 2022-08-14 2022-08-14 (TEL) STLMLC STLMLC [id number] Co mmon 00:00:00 00:00:00 [facility] 2022-08-12 2022-08-13 [facility] [id number] Univers 10:44:00 16:22:00 EARL ity of [facility] 2022-08-12 2022-08-13 Emergency Leonora Ruby [facility] 1.2.840 .114 [id number] Univers 10:44:00 16:22:00 Alexandre Montemayor 350.1.13.10 ity of [place] 4.2.7.2.686 [facility] [id number] [facility] 081 Branch 2022-06-22 2022-06-22 (TEL) STLMLC STLMLC [id number] Co mmon 00:00:00 00:00:00 Spirit [facility] 2022-06-19 2022-06-19 (MCR WELL) STLMLC STLMLC [id number] Common 00:00:00 00:00:00 Medicare Spiri t Wellness - [facility] 2022-06-19 2022-06-19 OFFICE STLMLC STLMLC [id number] Co mmon 00:00:00 00:00:00 VISIT EST Spir it PT LEVEL 3 - [facility] 2022-06-16 2022-06-16 Orders Doctor MEGAN 1.2.840.114 [id number] Univers 00:00:00 00:00:00 Only Unassigned, ANASTASIA 350.1.13.10 ity of [place] [facility] 4.2.7.2.686 [place] as [id number] [facility] [address] Branch 2022-06-15 2022-06-15 OFFICE STLMLC STLMLC [id number] Co mmon 00:00:00 00:00:00 VISIT EST Spir it PT LEVEL 3 - [facility] 2022-05-21 2022-05-21 Telephone Nila [facility] 1.2.840.114 [id number] [facility] 00:00:00 00:00:00 Wallace TEJEDA 350.1.13.10 it y of [place] 4.2.7.2.686 Ty as MANOJ?BLEA [id number] Al richard[address] MEDICAL OFFICE BUILDING 2022-05-19 2022-05-19 Office Sarbjit [facility] 1.2.840.114 [id number] Univers 08:45:00 09:00:00 Visit Brian HEALTH 350.1.13.10 it y of [place] 4.2.7.2.686 [place] as MANOJ?BLEA [id number] Al nikita AREVALO [address] [place] [address] MEDICAL OFFICE BUILDING 2022-05-19 2022-05-19 Outpatient [facility] [id number] Univers 08:45:00 08:45:00 BRIAN ity of [facility] 2022-05-19 2022-05-19 Outpatient [facility] [id number] Univers 08:45:00 08:45:00 BRIAN ity [facility] 2022-05-16 2022-05-16 Outpatient R RADIOLOGY [facility] [id number] Univers 07:47:58 23:59:00 ity of [facility] 2022-05-16 2022-05-16 Hospital Radiology [facility] 1.2.840.114 [id number] Univers 07:47:58 23:59:00 Encounter [facility] 350.1.13.10 ity [facility] [place].2.7.2.[place] [id number] [facility] [address] [place] 2022-05-16 2022-05-16 Outpatient R RADIOLOGY [facility] [id number] Univers 07:47:58 23:59:00 ity of [facility] 2022-05-14 2022-05-14 [facility] Radiology [facility] 1.2.840.114 [id number] Univers 08:30:00 08:30:00 Encounter Y HEALTH 350.1.13.10 ity of [facility] 4.2.7.2.[place] [id number] [facility] [address] [place] 2022-05-14 2022-05-14 Outpatient R RADIOLOGY [facility] [id number] Univers 00:00:00 00:00:00 ity of [facility] 2022-05-14 2022-05-14 Outpatient R RADIOLOGY [facility] [id number] Univers 00:00:00 00:00:00 ity of [facility] 2022-05-12 2022-05-12 Telephone Nila [facility] 1.2.840.114 [id number] Univers 00:00:00 00:00:00 Wallace TEJEDA 350.1.13.10 it y of [place] 4.2.7.2.686 Ty as MANOJ?BLEA [id number] Al nikita AREVALO [address] [place] [address] OFFICE [facility] 2022-05-11 2022-05-11 Outpatient [facility] [id number] Univers 15:14:20 23:59:00 WALLACE chinchilla [facility] 2022-05-11 2022-05-11 Hospital [facility] 1.2.840.114 [id number] Univers 15:14:20 23:59:00 Encounter Wallace CORDERO 350.1.13.10 ity of [place] 4.[address]7.[address] [facility] [id number] [facility] [address] [place] 2022-05-11 2022-05-11 Office [facility] 1.2.049.731 [id number] Univers 14:45:00 14:45:00 Visit Wallace TEJEDA 350.1.13.10 it y of [place] 4.2.7.2.686 Ty as MANOJ?BLEA [id number] Al nikita AREVALO [address] [place] [address] OFFICE [facility] 2022-05-11 2022-05-11 Outpatient [facility] [id number] Univers 14:45:00 14:34:12 WALLACE [facility] 2022-05-07 2022-05-07 Telephone [facility] 1.2.840.114 [id number] Univers 00:00:00 00:00:00 Wallace Edge HEALTH 350.1.13.10 it y of [place] 4.2.7.2.686 Ty as MANOJ?BLEA [id number] Al nikita AREVALO [address] [place] [address] OFFICE [facility] 2022-03-05 2022-03-05 (TEL[facility] [id number] Co mmon 00:00:00 00:00:00 [facility] 2022-03-03 2022-03-03 Outpatient [facility] [id number] Univers 13:04:32 23:59:00 WALLACE saleem [facility] 2022-03-03 2022-03-03 Office [facility] 1.2.840.114 [id number] Univers 13:45:00 14:00:00 Visit [facility] S HEALTH 350.1.13.10 it y of [place] 4.2.7.2.686 Ty as MANOJ?BLEA [id number] Al nikita AREVALO [address] [place] [address] OFFICE [facility] 2022-03-03 2022-03-03 Outpatient R SARBJIT [facility] [id number] Univers 13:45:00 13:45:00 BRIAN ity [facility] 2022-02-16 2022-02-16 Outpatient [facility] [id number] Univers 13:27:13 23:59:00 BRIAN ity [facility] 2022-02-16 2022-02-16 Outpatient [facility] [id number] Univers 13:27:13 23:59:00 BRIAN ity [facility] 2022-02-16 2022-02-16 Office [facility] 1.2.840.114 [id number] Univers 13:45:00 14:00:00 Visit [facility] HEALTH 350.1.13.10 it y of [place] 4.2.7.2.686 Ty as MANOJ?BLEA [id number] Al nikita KIM[address] OFFICE [facility] 2022-02-16 2022-02-16 Outpatient R [facility] [id number] Univers 13:45:00 13:45:00 BRIAN ity [facility] 2022-02-16 2022-02-16 Orders Doctor MEGAN 1.2.840.114 [id number] Univers 00:00:00 00:00:00 Only Unassigned, ANASTASIA 350.1.13.10 ity of [place] [facility] 4.2.7.2.686 Ty as [id number] [address] 2022-02-16 2022-02-16 Telephone [facility] 1.2.482.531 [id number] Univers 00:00:00 00:00:00 Brian S HEALTH 350.1.13.10 it y of [place] 4.2.7.2.686 Ty as MANOJ?BLEA [id number] [address] MEDICAL OFFICE BUILDING 2022-02-05 2022-02-05 Orders Doctor MEGAN 1.2.840.114 [id number] Univers 00:00:00 00:00:00 Only Unassigned, ANASTASIA 350.1.13.10 ity of [place] [facility] 4.2.7.2.686 Ty as [id number] [address] 2022-02-04 2022-02-04 OFFICE STLMLC STLMLC [id number] Co mmon 00:00:00 00:00:00 VISIT EST Spir it PT LEVEL 3 - [facility] 2022-01-19 2022-01-19 (TEL) STLMLC STLMLC [id number] Co mmon 00:00:00 00:00:00 [facility] 2022-01-05 2022-01-05 OFFICE STLMLC STLMLC [id number] Co mmon 00:00:00 00:00:00 VISIT EST Spir it PT LEVEL 3 - [facility] 2021-12-22 2021-12-22 OFFICE STLMLC STLMLC [id number] Co mmon 00:00:00 00:00:00 VISIT [facility] PT - CHI LEVEL 4 [facility] 2021-11-20 2021-11-20 (TEL) STLMLC STLMLC [id number] Co mmon 00:00:00 00:00:00 [facility] 2021-10-21 2021-10-21 (TEL) STLMLC STLMLC [id number] Co mmon 00:00:00 00:00:00 [facility] 2021-10-02 2021-10-02 (TEL) STLMLC STLMLC [id number] Co mmon 00:00:00 00:00:00 [facility] 2021-09-26 2021-09-26 Day nullFlavo [facility] [id number] Memoria 14:19:00 19:21:00 Surgery r Michael 02 [facility] 2021-09-26 2021-09-26 Day nullFlavo [facility] [id number] Memoria 14:19:00 19:21:00 Surgery r [place] 02 [facility] 2021-09-26 2021-09-26 Outpatient SAADIA NashPL MHPL [id number] 08:19:00 13:21:00 [place] 2021-09-26 2021-09-26 Outpatient SAAD SAADIABL MHBL [id number] MHBL 08:19:00 13:21:00 [place] 2021-09-12 2021-09-12 (TEL) STLMLC STLMLC [id number] Co mmon 00:00:00 00:00:00 [facility] 2021-09-08 2021-09-08 (TEL) STLMLC STLMLC [id number] Co mmon 00:00:00 00:00:00 [facility] 2021-09-02 2021-09-02 Outpatient [facility] OPH [id number] Univers 06:24:00 09:17:00 CHE saleem [facility] 2021-09-02 2021-09-02 [facility] 1.2.840.114 [id number] Univers 06:24:00 09:17:00 Encounter Che CORDERO 350.1.13.10 ity [facility] 4.2.7.2.686 [place] [id number] [address] 2021-09-02 2021-09-02 Surgery [facility] 1.2.494.926 [id number] Univers 07:30:00 08:31:00 Che CORDER[place] 350.1.13.10 ity of [place].2.[place] [id number] [address] 2021-09-01 2021-09-01 Outpatient Alec BAH [facility] [id number] Univers 09:45:00 09:45:00 HCE [facility] 2021-09-01 2021-09-01 Laboratory Only, Adc Test [facility] 1.2.840. 114 [id number] Univers 08:58:02 09:13:02 Only Che Bah 350.1.13. 10 ity of [facility] 4.2.7.2.686 [place] [id number] [facility] [address] 2021-09-01 2021-09-01 (TEL) STLMLC STLMLC [id number] Co mmon 00:00:00 00:00:00 [facility] 2021-09-01 2021-09-01 Orders Doctor MEGAN 1.2.840.114 [id number] Univers 00:00:00 00:00:00 Only Unassigned, ANASTASIA 350.1.13.10 [facility] 4.2.7.2.686 [place] as [id number] [facility] [address] 2021-08-26 2021-08-26 OFFICE STLMLC STLC [id number] Co mmon 00:00:00 00:00:00 VISIT EST Spir it PT LEVEL 3 [facility] 2021-08-19 2021-08-19 (TEL) STLMLC STLMLC [id number] Co mmon 00:00:00 00:00:00 [facility] 2021-08-13 2021-08-13 Outpatient R SARBJIT [facility] [id number] Univers 13:15:00 13:15:00 BRIAN ity [facility] 2021-08-13 2021-08-13 [facility] [id number] Univers 12:47:28 13:02:28 Visit [facility] [id number] it y [facility] [id number] Ty as MANOJ?BLEA [phone] Al dic[address] MEDICAL OFFICE BUILDING 2021-08-13 2021-08-13 Telephone [facility] [id number] Univers 00:00:00 00:00:00 [facility] [id number] it y of SURGICAL [id number] Ty as SPECIALTI [phone] Al dictanja [address] 2021-07-29 2021-07-29 (TEL) STLMLC STLMLC [id number] Co mmon 00:00:00 00:00:00 [facility] 2021-07-25 2021-07-25 (TEL) STLMLC STLMLC [id number] Co mmon 00:00:00 00:00:00 [facility] 2021-07-21 2021-07-21 Hospital [facility] [id number] Univers 13:35:00 23:59:00 Encounter Wallace Tejeda [id number] ity of [place] [id number] Ty as Manoj?Blea [phone] [facility] [address] [place] [address] Office [facility] 2021-07-21 2021-07-21 [facility] [id number] Univers 13:35:00 23:59:00 [facility] 2021-07-21 2021-07-21 [facility] [id number] Univers 13:30:00 14:45:07 [facility] 2021-07-21 2021-07-21 Office [facility] [id number] Univers 13:00:10 14:45:07 Visit Wallace [facility] [id number] it y [facility] [id number] Ty as MANOJ?BLEA [phone] [facility] [address] OFFICE [facility] 2021-07-21 2021-07-21 Outpatient [facility] [id number] Univers 13:30:00 13:30:00 [facility] 2021-07-21 2021-07-21 (TEL) STLMLC STLMLC [id number] Co mmon 00:00:00 00:00:00 Spirit [facility] 2021-07-11 2021-07-11 (TEL) STLMLC STLMLC [id number] Co mmon 00:00:00 00:00:00 Spirit - [facility] 2021-07-11 2021-07-11 OFFICE STLMLC STLMLC [id number] Co mmon 00:00:00 00:00:00 VISIT [facility] - CHI LEVEL 1 [facility] 2021-07-07 2021-07-07 (TEL) STLMLC STLMLC [id number] Co mmon 00:00:00 00:00:00 [facility] 2021-06-29 2021-06-29 (TEL) STLMLC STLMLC [id number] Co mmon 00:00:00 00:00:00 [facility] 2021-06-24 2021-06-24 OFFICE STLMLC STLMLC [id number] Co mmon 00:00:00 00:00:00 VISIT [facility] PT - [facility] 4 [facility] 2021-06-13 2021-06-13 Emergency Nemesio, [facility] [id number] Univers 14:19:00 18:37:00 Shannon Cordero [id number] [place] [id number] [facility] [phone] [facility] [address] 2021-06-06 2021-06-06 Outpatient STLMLC STLMLC [id number] Common 00:00:00 00:00:00 [facility] 2021-05-05 2021-05-05 Outpatient STLMLC STLMLC [id number] Common 00:00:00 00:00:00 [facility] 2021-04-30 2021-04-30 Outpatient STLMLC STLMLC [id number] Common 00:00:00 00:00:00 [facility] 2021-04-30 2021-04-30 Outpatient STLMLC STLMLC [id number] Common 00:00:00 00:00:00 [facility] 2021-04-25 2021-04-25 Outpatient STLMLC STLMLC [id number] Common 00:00:00 00:00:00 [facility] 2021-04-03 2021-04-03 Outpatient STLMLC STLMLC [id number] Common 00:00:00 00:00:00 [facility] 2021-03-25 2021-03-25 OFFICE STLMLC STLMLC [id number] Co mmon 00:00:00 00:00:00 VISIT [facility] PT - CHI LEVEL 4 [facility] 2021-01-24 2021-01-24 Outpatient STLMLC STLMLC [id number] Common 00:00:00 00:00:00 [facility] 2021-01-17 2021-01-17 Outpatient STLMLC STLMLC [id number] Common 00:00:00 00:00:00 [facility] 2021-01-13 2021-01-13 Outpatient STLMLC STLMLC [id number] Common 00:00:00 00:00:00 [facility] 2021-01-10 2021-01-10 Outpatient STLMLC STLMLC [id number] Common 00:00:00 00:00:00 [facility] 2020-12-31 2020-12-31 Outpatient STLMLC STLMLC [id number] Common 00:00:00 00:00:00 [facility] 2020-12-25 2020-12-25 [facility] [id number] Univers 13:45:00 13:45:00 [facility] 2020-12-25 2020-12-25 Office [facility] [id number] 12:51:24 13:25:03 Visit [facility] [id number] Surgical [id number] Specialti [id number] [address] 2020-12-23 2020-12-23 [facility]patient [facility] [id number] Univers 13:45:00 13:45:00 [facility] 2020-12-23 2020-12-23 Outpatient STLMLC STLMLC [id number] Common 00:00:00 00:00:00 [facility] 2020-12-21 2020-12-21 Outpatient STLMLC STLMLC [id number] Common 00:00:00 00:00:00 [facility] 2020-12-19 2020-12-19 Outpatient STLMLC STLMLC [id number] Common 00:00:00 00:00:00 [facility] 2020-12-17 2020-12-17 Outpatient STLMLC STLMLC [id number] Common 00:00:00 00:00:00 [facility] 2020-12-17 2020-12-17 Outpatient STLMLC STLMLC [id number] Common 00:00:00 00:00:00 [facility] 2020 2020 Outpatient STLMLC STLMLC [id number] Common 00:00:00 00:00:00 [facility] 2020-12-09 2020-12-09 Outpatient STLMLC STLMLC [id number] Common 00:00:00 00:00:00 [facility] 2020-11-07 2020-11-07 Outpatient STLMLC STLMLC [id number] Common 00:00:00 00:00:00 [facility] 2020-11-04 2020-11-04 Outpatient STLMLC STLMLC [id number] Common 00:00:00 00:00:00 [facility] 2020-11-04 2020-11-04 Outpatient STLMLC STLMLC [id number] Common 00:00:00 00:00:00 [facility] 2020-10-15 2020-10-15 [facility]patient [facility] [id number] [facility] 07:11:00 12:00:00 [place] 2020-09-09 2020-09-09 Outpatient STLMLC STLMLC [id number] Common 00:00:00 00:00:00 [facility] 2020-08-14 2020-08-14 Outpatient Young_J MMG MMG [id number] [place] 02:37:00 02:37:00 [facility] 2020-07-16 2020-07-16 Outpatient STLMLC STLMLC [id number] Common 00:00:00 00:00:00 [facility] 2020-07-04 2020-07-04 Outpatient Alec DOTSON [facility] [id number] Univers 08:00:00 08:00:00 WALLACE chinchilla [facility] 2020-05-06 2020-05-06 [facility] [id number] Common 10:52:00 10:52:00 t [facility] [address] [facility] 2020-04-15 2020-04-15 Outpatient Alec SCHAFFER [facility] [id number] Univers 15:45:00 15:45:00 BRIAN [facility] 2020-04-11 2020-04-11 Outpatient Alec DOTSON [facility] [id number] Univers 15:30:00 15:30:00 [facility] 2020-04-10 2020-04-10 Outpatient [facility] [id number] Common 13:19:00 13:19:00 t [facility] [address] [facility] 2020-04-08 2020-04-08 Outpatient [facility] [id number] Common 11:08:00 11:08:00 t [facility] [address] [facility] 2020-04-05 2020-04-05 Outpatient [facility] [id number] Common 18:34:00 18:34:00 t [facility] [address] [facility] 2020-03-07 2020-03-07 [facility] [id number] Univers 15:00:00 15:00:00 [facility] 2020-01-09 2020-01-09 Outpatient [facility] [id number] Common 14:23:00 14:23:00 t [facility] [address] [facility] 2020-01-08 2020-01-08 Outpatient [facility] [id number] Common 08:00:00 08:00:00 t [facility] [address] [facility] 2019-11-22 2019-11-22 Outpatient [facility] [id number] Common 19:45:00 19:45:00 t [facility] [address] [facility] 2019-11-08 2019-11-08 Outpatient [facility] [id number] Common 09:12:00 09:12:00 t [facility] [address] [facility] 2019-11-07 2019-11-07 Outpatient [facility] [id number] Common 08:17:00 08:17:[address] [facility] 2019-10-19 2019-10-19 Outpatient [facility] [id number] Common 15:57:00 15:57:[address] [facility] 2019-10-18 2019-10-18 Outpatient [facility] [id number] Common 09:24:00 09:24:[address] [facility] 2019-10-17 2019-10-17 Outpatient [facility] [id number] Common 09:00:00 09:00:[address] [facility] 2019-10-11 2019-10-11 Outpatient O [facility] [id number] Univers 15:30:52 15:30:00 [facility] 2019-10-09 2019-10-09 Outpatient [facility] [id number] Common 10:27:00 10:27:00 t [facility] [address] [facility] 2019-10-09 2019-10-09 Outpatient [facility] [id number] Common 09:00:00 09:00:[address] [facility] 2018-08-08 2018-08-08 Saravanan ABDALLA [place] - [id number] M atagor 00:00:00 00:00:00 DO Terrance: Discovery hasmukh ramon [address] [place] [address] - [address], General [place], [place] [address] , Ph. [phone] 2018-08-04 2018-08-04 Jose Garcia MM [place] - [id number] M atagor 00:00:00 00:00:00 MD Bobbi: Discovery valdes [facility], [place] - [address], [place] [address] , Ph. 2018-07-07 2018-07-07 Jose Garcia MM [place] - [id number] M atagor 00:00:00 00:00:00 MD Bobbi: Tellpe [address] [facility] [address] - [address], [place] [address] , Ph. Results Test Description Test Time Test Comments Results Result Comments Source Transthoracic echo (TTE) 2022-08-13 22:32:11 Test Item Value Reference Range Interpretation Comme nts Height (test code = 9471235817) in Weight (test code = 7062980229) lbs Systolic BP (test code = 0083454028) mmHg Diastolic BP (test code = 0627347521) mmHg Heart Rate (test code = 1978029208) bpm BSA (test code = 7652357042) 2.06 m2 Ao root diam (test code = 0091840858) 4.10 cm Aortic root (test code = 1782696665) 4.1 cm Ao root annulus (test code = 4.1 cm 4979424179) LVOT diameter (test code = 7954455735) 2.13 cm LVOT area (test code = 4833343445) 3.60 cm2 LA size (test code = 0331903500) 2.7 cm LAV(MOD-sp4) (test code = 1082982700) 46.70 mL E wave decelartion time (test code = 0.17 s 6395736723) MV stenosis pressure 1/2 time (test 51.2 ms code = 5050817563) MV Peak A Bobby (test code = 2698674141) 65.7 cm/s MV Peak E Bobby (test code = 2394481471) 52.5 cm/s E/A ratio (test code = 1130335686) ratio MV Prop V (test code = 9652194501) 58.90 cm/s MV E/e' septal (test code = 8.6 cm/s 8187522216) Tapse (test code = 0954537867) 2.07 cm LVOT stroke volume (test code = 56.50 cm3 3854338811) LVOT peak bobby (test code = 2936035405) 83.0 cm/s LVOT mn grad (test code = 6542661790) mmHg AV LVOT peak gradient (test code = mmHg 4497333785) LVOT peak VTI (test code = 1774762004) 15.9 cm LV V1 mean (test code = 1770246758) 57.80 cm/s Aortic valve mean velocity (test code 86.0 cm/s = 2119123309) Ao peak bobby (test code = 3989945297) 113.0 cm/s Ao VTI (test code = 5737361140) 21.8 cm AV area by cont VTI (test code = 2.6 cm2 8922003934) AV area peak bobby (test code = 2.6 cm2 7802408836) Ao max PG (test code = 2234496250) 5.10 mm[Hg] AV peak gradient (test code = mmHg 3845416573) AV valve area (test code = 1162127055) 2.60 cm2 AV mean gradient (test code = mmHg 6792717573) LVIDD (test code = 1311152382) 4.80 cm Left Ventricular End Diastolic Volume 109.8 mL by Teichholz Method (test code = 8476665) IVS (test code = 6866372553) 1.03 cm Interventricular Septum Diastolic 1.03 cm Thickness by 2D (test code = 9528562) LVPWD (test code = 9090342156) 1.04 cm PW (test code = 3751320810) 1.04 cm 0.6-1.1 EF(Teich) (test code = 8843192388) 64.10 % LVIDS (test code = 7395127581) 3.20 cm Left Ventricular End Systolic Volume 39.4 mL by Teichholz Method (test code = 5043526) FS (test code = 1104126658) 35 % EF - 2D (test code = 40269782) 64.10 % Radiology Study observation (narrative) (test code = 52025-3) SOFIYA (test code = SOFIYA) ?Left?Ventricle: Left [...] mL of Lumason ultrasound enhancing agent used. [facility] GLUCOSE (AUTOMATED)2022-08-13 18:19:00 Test Item Value Reference Range Interpretation Comments POCT GLU (test code = 9233246525) 196 mg/dL 70-110 H Lab Interpretation (test code = Abnormal 32971-1) [facility] GLUCOSE (AUTOMATED)2022-08-13 13:59:31 Test Item Value Reference Range Interpretation Comments POCT GLU (test code = 3592014147) 146 mg/dL 70-110 H Lab Interpretation (test code = Abnormal 80284-5) [facility] GLUCOSE (AUTOMATED)2022-08-13 01:25:38 Test Item Value Reference Range Interpretation Comments POCT GLU (test code = 3197555110) 102 mg/dL 70-110 Lab Interpretation (test code = Normal 37954-1) [id number] 19:44:37 Test Item Value Reference Interpretation Comments Range TROPONIN I (test 0.004 ng/mL See_Comment [Automated code = 8259805380) message] The system which generated this result [...] biotin. Lab Interpretation Normal (test code = 95496-9) [facility] 19:07:00 Test Item Value Reference Range Interpretation Comments RDW (test code = RDW) 14.7 11.5-14.5 [facility]lXPSKLPSDKD8744-58-11 19:07:00 Test Item Value Reference Range Interpretation Comments Platelet (test code = Platelet) 219 133-450 [facility]axejgi[facility]YCLMMHMGB5709-36-85 19:07:00 Test Item Value Reference Range Interpretation Comments MPV (test code = MPV) 8.2 7.4-10.[address] [facility] IDGEVIOMP8262-80-48 19:07:00 Test Item Value Reference Range Interpretation Comments Hgb A1C (test code = Hgb A1C) 6.4 [facility] PYPEB7436-40-12 19:07:00 Test Item Value Reference Range Interpretation Comments Glucose Lvl (test code = Glucose Lvl) 153 70-99 [facility]2021-12-29 19:07:00 Test Item Value Reference Range Interpretation Comments BUN (test code = BUN) 18 7-22 [facility] [id number] 19:07:00 Test Item Value Reference Range Interpretation Comments Creatinine Lvl (test code = Creatinine 1.44 0.50-1.40 Lvl) [facility]2021-12-29 19:07:00 Test Item Value Reference Range Interpretation Comments Sodium Lvl (test code = Sodium Lvl) 132 135-145 [facility]2021-12-29 19:07:00 Test Item Value Reference Range Interpretation Comments Potassium Lvl (test code = Potassium 4.8 3.5-5.1 Lvl) [place] 024481-12-29 19:07:00 Test Item Value Reference Range Interpretation Comments Chloride Lvl (test code = Chloride Lvl) 99 95-109 [place] 024481-12-29 19:07:00 Test Item Value Reference Range Interpretation Comments CO2 (test code = CO2) 27 24-32 [place] 024481-12-29 19:07:00 Test Item Value Reference Range Interpretation Comments Calcium Lvl (test code = Calcium Lvl) 9.7 8.5-10.5 [place] 024481-12-29 19:07:00 Test Item Value Reference Range Interpretation Comments AGAP (test code = AGAP) 10.8 10.0-20.0 [place] 024481-12-29 19:07:00 Test Item Value Reference Range Interpretation Comments eGFR (test code = eGFR) 52 [place] 953781-12-29 19:07:00 Test Item Value Reference Range Interpretation Comments Segs (test code = Segs) 57.5 45.0-75.0 [place] 01995-12-29 19:07:00 Test Item Value Reference Range Interpretation Comments Lymphocytes (test code = Lymphocytes) 28.0 20.0-40.0 [place] 953781-12-29 19:07:00 Test Item Value Reference Range Interpretation Comments Monocytes (test code = Monocytes) 9.6 2.0-12.0 [place] 0[address]-12-29 19:07:00 Test Item Value Reference Range Interpretation Comments Eosinophils (test code = 4.4 See_Comment [A utomated message] The Eosinophils) system which ge nerated this result tra nsmitted reference range : <=4.0. The reference r glenn was not used to int erpret this result as normal/abnormal . [place] 953781-12-29 19:07:00 Test Item Value Reference Range Interpretation Comments Basophils (test code = 0.5 See_Comment [Aut omated message] The Basophils) system which ge nerated this result tra nsmitted reference range : <=1.0. The reference r glenn was not used to int erpret this result as normal/abnormal . [facility] CenterMbhrhpbADNOXHWDZF6354-80-34 19:07:00 Test Item Value Reference Range Interpretation Comments Neutrophils # (test code = Neutrophils 3.3 1.5-8.1 #) [facility] CenterJtcuucnUHUUOISHZF8725-18-86 19:07:00 Test Item Value Reference Range Interpretation Comments Lymphocytes # (test code = Lymphocytes 1.6 1.0-5.5 #) [facility] CenterRkwkfkvXUCWTFBQHG5615-53-68 19:07:00 Test Item Value Reference Range Interpretation Comments Monocytes # (test code 0.5 See_Comment [Aut omated message] The = Monocytes #) system which generated this result tra nsmitted reference range : <=0.8. The reference r glenn was not used to int erpret this result as normal/abnormal . [facility] CenterYqbllfzNZPHVSWEPU1196-64-33 19:07:00 Test Item Value Reference Range Interpretation Comments Eosinophils # (test code 0.2 See_Comment [A utomated message] The = Eosinophils #) system whic h generated this result tra nsmitted reference range : <=0.5. The reference r glenn was not used to int erpret this result as normal/abnormal . [facility] CenterYgrshavONNINXXDLM3794-33-84 19:07:00 Test Item Value Reference Range Interpretation Comments WBC (test code = WBC) 5.7 3.7-10.4 [facility] CenterFmlelpdYRMLJVTUWI3261-87-56 19:07:00 Test Item Value Reference Range Interpretation Comments RBC (test code = RBC) 4.95 4.70-6.10 [facility] CenterIauozvkAAHTOXOHEJ8384-67-56 19:07:00 Test Item Value Reference Range Interpretation Comments Hgb (test code = Hgb) 14.1 14.0-18.0 [facility] CenterZnfaowyXZBWBQRXGY9307-10-87 19:07:00 Test Item Value Reference Range Interpretation Comments Hct (test code = Hct) 42.2 42.0-54.0 [facility] CenterEphisynPOYBGXOSNQ9791-95-65 19:07:00 Test Item Value Reference Range Interpretation Comments MCV (test code = MCV) 85.3 80.0-94.0 [facility] CenterZtpqmyyWOFYJZLEXB6021-71-37 19:07:00 Test Item Value Reference Range Interpretation Comments MCH (test code = MCH) 28.6 pg 27.0-31.0 [place] 953781-12-29 19:07:00 Test Item Value Reference Range Interpretation Comments MCHC (test code = MCHC) 33.5 32.0-36.0 [facility] CenterDdajdpiJOWYJYFYID8356-03-85 19:07:00 Test Item Value Reference Range Interpretation Comments RDW (test code = RDW) 14.7 11.5-14.5 [facility] HospitalMopipasIWAEEKDWFY5014-04-22 19:07:00 Test Item Value Reference Range Interpretation Comments Platelet (test code = Platelet) 219 133-450 [facility] HospitalUpumvazKSZAFPFNGR5710-52-15 19:07:00 Test Item Value Reference Range Interpretation Comments MPV (test code = MPV) 8.2 7.4-10.[address] [facility] ZXPXJCLUF1003-86-95 19:07:00 Test Item Value Reference Range Interpretation Comments Hgb A1C (test code = Hgb A1C) 6.4 [facility] LFOHI7546-41-97 19:07:00 Test Item Value Reference Range Interpretation Comments Glucose Lvl (test code = Glucose Lvl) 153 70-99 [facility]2021-12-29 19:07:00 Test Item Value Reference Range Interpretation Comments BUN (test code = BUN) 18 7-22 [facility]2021-12-29 19:07:00 Test Item Value Reference Range Interpretation Comments Creatinine Lvl (test code = Creatinine 1.44 0.50-1.40 Lvl) [facility]2021-12-29 19:07:00 Test Item Value Reference Range Interpretation Comments Sodium Lvl (test code = Sodium Lvl) 132 135-145 [facility]2021-12-29 19:07:00 Test Item Value Reference Range Interpretation Comments Potassium Lvl (test code = Potassium 4.8 3.5-5.1 Lvl) [facility]2021-12-29 19:07:00 Test Item Value Reference Range Interpretation Comments Chloride Lvl (test code = Chloride Lvl) 99 95-109 [facility]2021-12-29 19:07:00 Test Item Value Reference Range Interpretation Comments CO2 (test code = CO2) 27 24-32 [facility] [id number] 19:07:00 Test Item Value Reference Range Interpretation Comments Calcium Lvl (test code = Calcium Lvl) 9.7 8.5-10.5 [place] 024481-12-29 19:07:00 Test Item Value Reference Range Interpretation Comments AGAP (test code = AGAP) 10.8 10.0-20.0 [place] 024481-12-29 19:07:00 Test Item Value Reference Range Interpretation Comments eGFR (test code = eGFR) 52 [facility] CenterChtjoweCDMVDTTCQH2770-72-81 19:07:00 Test Item Value Reference Range Interpretation Comments Segs (test code = Segs) 57.5 45.0-75.0 [place] 953781-12-29 19:07:00 Test Item Value Reference Range Interpretation Comments Lymphocytes (test code = Lymphocytes) 28.0 20.0-40.0 [place] 953781-12-29 19:07:00 Test Item Value Reference Range Interpretation Comments Monocytes (test code = Monocytes) 9.6 2.0-12.0 [place] 953781-12-29 19:07:00 Test Item Value Reference Range Interpretation Comments Eosinophils (test code = 4.4 See_Comment [A utomated message] The Eosinophils) system which ge nerated this result tra nsmitted reference range : <=4.0. The reference r glenn was not used to int erpret this result as normal/abnormal . [place] 953781-12-29 19:07:00 Test Item Value Reference Range Interpretation Comments Basophils (test code = 0.5 See_Comment [Aut omated message] The Basophils) system which ge nerated this result tra nsmitted reference range : <=1.0. The reference r glenn was not used to int erpret this result as normal/abnormal . [place] 953781-12-29 19:07:00 Test Item Value Reference Range Interpretation Comments Neutrophils # (test code = Neutrophils 3.3 1.5-8.1 #) [place] 953781-12-29 19:07:00 Test Item Value Reference Range Interpretation Comments Lymphocytes # (test code = Lymphocytes 1.6 1.0-5.5 #) [place] 953781-12-29 19:07:00 Test Item Value Reference Range Interpretation Comments Monocytes # (test code 0.5 See_Comment [Aut omated message] The = Monocytes #) system which generated this result tra nsmitted reference range : <=0.8. The reference r glenn was not used to int erpret this result as normal/abnormal . [facility] CenterIjqnrzhVQCMYTIELI8606-69-02 19:07:00 Test Item Value Reference Range Interpretation Comments Eosinophils # (test code 0.2 See_Comment [A utomated message] The = Eosinophils #) system whic h generated this result tra nsmitted reference range : <=0.5. The reference r glenn was not used to int erpret this result as normal/abnormal . [facility] BLRWA4315-61-18 19:07:00 Test Item Value Reference Range Interpretation Comments Glucose Lvl (test code = Glucose Lvl) 153 70-99 [facility] CenterBawabcxFTUWCDNHAX6557-86-90 19:07:00 Test Item Value Reference Range Interpretation Comments WBC (test code = WBC) 5.7 3.7-10.4 [facility] CenterEpkjnvcJIWQWUXWIG3729-97-99 19:07:00 Test Item Value Reference Range Interpretation Comments RBC (test code = RBC) 4.95 4.70-6.10 [facility] CenterOcqgizjBAVZPOVYPE7367-07-21 19:07:00 Test Item Value Reference Range Interpretation Comments Hgb (test code = Hgb) 14.1 14.0-18.0 [facility] CenterTymagmuVLBUTJXGQR2054-22-14 19:07:00 Test Item Value Reference Range Interpretation Comments Hct (test code = Hct) 42.2 42.0-54.0 [facility] CenterGlgzcipIPDIKMMUQN5526-86-72 19:07:00 Test Item Value Reference Range Interpretation Comments MCV (test code = MCV) 85.3 80.0-94.0 [place] 953781-12-29 19:07:00 Test Item Value Reference Range Interpretation Comments MCH (test code = MCH) 28.6 pg 27.0-31.0 [place] 953781-12-29 19:07:00 Test Item Value Reference Range Interpretation Comments MCHC (test code = MCHC) 33.5 32.0-36.0 [place] 953781-12-29 19:07:00 Test Item Value Reference Range Interpretation Comments RDW (test code = RDW) 14.7 11.5-14.5 [facility]2021-12-29 19:07:00 Test Item Value Reference Range Interpretation Comments Glucose Lvl (test code = Glucose Lvl) 153 70-99 [place] 024481-12-29 19:07:00 Test Item Value Reference Range Interpretation Comments BUN (test code = BUN) 18 7-22 [place] 953781-12-29 19:07:00 Test Item Value Reference Range Interpretation Comments Platelet (test code = Platelet) 219 133-450 [place] 024481-12-29 19:07:00 Test Item Value Reference Range Interpretation Comments Creatinine Lvl (test code = Creatinine 1.44 0.50-1.40 Lvl) [facility]2021-12-29 19:07:00 Test Item Value Reference Range Interpretation Comments Sodium Lvl (test code = Sodium Lvl) 132 135-145 [place] 024481-12-29 19:07:00 Test Item Value Reference Range Interpretation Comments Potassium Lvl (test code = Potassium 4.8 3.5-5.1 Lvl) [place] 024481-12-29 19:07:00 Test Item Value Reference Range Interpretation Comments Chloride Lvl (test code = Chloride Lvl) 99 95-109 [facility]2021-12-29 19:07:00 Test Item Value Reference Range Interpretation Comments CO2 (test code = CO2) 27 24-32 [place] 024481-12-29 19:07:00 Test Item Value Reference Range Interpretation Comments Calcium Lvl (test code = Calcium Lvl) 9.7 8.5-10.5 [place] 024481-12-29 19:07:00 Test Item Value Reference Range Interpretation Comments AGAP (test code = AGAP) 10.8 10.0-20.0 [place] 024481-12-29 19:07:00 Test Item Value Reference Range Interpretation Comments eGFR (test code = eGFR) 52 [facility]iduyfqWFKZXWPRNK3000-11-77 19:07:00 Test Item Value Reference Range Interpretation Comments Segs (test code = Segs) 57.5 45.0-75.0 [place] 953781-12-29 19:07:00 Test Item Value Reference Range Interpretation Comments Lymphocytes (test code = Lymphocytes) 28.0 20.0-40.0 [place] 953781-12-29 19:07:00 Test Item Value Reference Range Interpretation Comments MPV (test code = MPV) 8.2 7.4-10.4 [facility] CenterPrsadyiGZTAHUIEFL2463-30-39 19:07:00 Test Item Value Reference Range Interpretation Comments Monocytes (test code = Monocytes) 9.6 2.0-12.0 [facility] CenterUbtlbxgMVMZQFIRVO4265-52-35 19:07:00 Test Item Value Reference Range Interpretation Comments Eosinophils (test code = 4.4 See_Comment [A utomated message] The Eosinophils) system which ge nerated this result tra nsmitted reference range : <=4.0. The reference r glenn was not used to int erpret this result as normal/abnormal . [facility] CenterHbobdwsJNBYIWCVOA8716-90-14 19:07:00 Test Item Value Reference Range Interpretation Comments Basophils (test code = 0.5 See_Comment [Aut omated message] The Basophils) system which ge nerated this result tra nsmitted reference range : <=1.0. The reference r glenn was not used to int erpret this result as normal/abnormal . [facility] CenterKzcznrtJBVOMLTSSU8837-90-00 19:07:00 Test Item Value Reference Range Interpretation Comments Neutrophils # (test code = Neutrophils 3.3 1.5-8.1 #) [facility] CenterGjuptqaQMVLVPGRJQ0631-70-31 19:07:00 Test Item Value Reference Range Interpretation Comments Lymphocytes # (test code = Lymphocytes 1.6 1.0-5.5 #) [facility] CenterJgeovnaSWEBWPKFNE0469-60-65 19:07:00 Test Item Value Reference Range Interpretation Comments Monocytes # (test code 0.5 See_Comment [Aut omated message] The = Monocytes #) system which generated this result tra nsmitted reference range : <=0.8. The reference r glenn was not used to int erpret this result as normal/abnormal . [facility] CenterYvngpboXJVUBGIEQH4707-03-38 19:07:00 Test Item Value Reference Range Interpretation Comments Eosinophils # (test code 0.2 See_Comment [A utomated message] The = Eosinophils #) system whic h generated this result tra nsmitted reference range : <=0.5. The reference r glenn was not used to int erpret this result as normal/abnormal . [facility] CenterJvhqrzuBYTTKRVKQA5114-16-49 19:07:00 Test Item Value Reference Range Interpretation Comments WBC (test code = WBC) 5.7 3.7-10.4 [facility]GjelauoFQKGAXSHNN5042-69-91 19:07:00 Test Item Value Reference Range Interpretation Comments RBC (test code = RBC) 4.95 4.70-6.10 [facility]HqahdwbDNCTVYHUCQ6266-39-34 19:07:00 Test Item Value Reference Range Interpretation Comments Hgb (test code = Hgb) 14.1 14.0-18.0 [facility] MUIUD0453-09-72 19:07:00 Test Item Value Reference Range Interpretation Comments BUN (test code = BUN) 18 7-22 [facility] HospitalMvxzkyvLBQIUPETRR2377-45-36 19:07:00 Test Item Value Reference Range Interpretation Comments Hct (test code = Hct) 42.2 42.0-54.0 [facility] HospitalFopkzvcYPLYLDEZST4469-35-58 19:07:00 Test Item Value Reference Range Interpretation Comments MCV (test code = MCV) 85.3 80.0-94.0 [facility] HospitalGmdriagFBPOKCFSPG2972-00-44 19:07:00 Test Item Value Reference Range Interpretation Comments MCH (test code = MCH) 28.6 pg 27.0-31.0 [facility] HospitalWqaooopFGJNZWRTFL2531-00-59 19:07:00 Test Item Value Reference Range Interpretation Comments MCHC (test code = MCHC) 33.5 32.0-36.0 [facility] HospitalPxafxxhDFLWYELCTJ8096-16-18 19:07:00 Test Item Value Reference Range Interpretation Comments RDW (test code = RDW) 14.7 11.5-14.5 [facility] HospitalCsircdzNLSCZZZXUD9999-27-94 19:07:00 Test Item Value Reference Range Interpretation Comments Platelet (test code = Platelet) 219 133-450 [facility] HospitalTcqzkntKESIGUYSKJ8704-24-10 19:07:00 Test Item Value Reference Range Interpretation Comments MPV (test code = MPV) 8.2 7.4-10.[address] [facility] VSECFJOOW1805-34-48 19:07:00 Test Item Value Reference Range Interpretation Comments Hgb A1C (test code = Hgb A1C) 6.[address] [facility] AQDHXCYZQ1460-52-16 19:07:00 Test Item Value Reference Range Interpretation Comments Hgb A1C (test code = Hgb A1C) 6.4 [facility] WBENF7593-04-41 19:07:00 Test Item Value Reference Range Interpretation Comments Creatinine Lvl (test code = Creatinine 1.44 0.50-1.40 Lvl) [place] 024481-12-29 19:07:00 Test Item Value Reference Range Interpretation Comments Sodium Lvl (test code = Sodium Lvl) 132 135-145 [place] 024481-12-29 19:07:00 Test Item Value Reference Range Interpretation Comments Glucose Lvl (test code = Glucose Lvl) 153 70-99 [facility]2021-12-29 19:07:00 Test Item Value Reference Range Interpretation Comments BUN (test code = BUN) 18 7-22 [place] 024481-12-29 19:07:00 Test Item Value Reference Range Interpretation Comments Creatinine Lvl (test code = Creatinine 1.44 0.50-1.40 Lvl) [place] 024481-12-29 19:07:00 Test Item Value Reference Range Interpretation Comments Sodium Lvl (test code = Sodium Lvl) 132 135-145 [place] 024481-12-29 19:07:00 Test Item Value Reference Range Interpretation Comments Potassium Lvl (test code = Potassium 4.8 3.5-5.1 Lvl) [facility]2021-12-29 19:07:00 Test Item Value Reference Range Interpretation Comments Potassium Lvl (test code = Potassium 4.8 3.5-5.1 Lvl) [facility]2021-12-29 19:07:00 Test Item Value Reference Range Interpretation Comments Chloride Lvl (test code = Chloride Lvl) 99 95-109 [place] 024481-12-29 19:07:00 Test Item Value Reference Range Interpretation Comments CO2 (test code = CO2) 27 24-32 [place] 024481-12-29 19:07:00 Test Item Value Reference Range Interpretation Comments Calcium Lvl (test code = Calcium Lvl) 9.7 8.5-10.5 [place] 024481-12-29 19:07:00 Test Item Value Reference Range Interpretation Comments AGAP (test code = AGAP) 10.8 10.0-20.0 [place] 024481-12-29 19:07:00 Test Item Value Reference Range Interpretation Comments eGFR (test code = eGFR) 52 [facility] CenterLnrphxtOFTUKTKGPP7262-10-49 19:07:00 Test Item Value Reference Range Interpretation Comments Segs (test code = Segs) 57.5 45.0-75.0 [place] 953781-12-29 19:07:00 Test Item Value Reference Range Interpretation Comments Lymphocytes (test code = Lymphocytes) 28.0 20.0-40.0 [place] 953781-12-29 19:07:00 Test Item Value Reference Range Interpretation Comments Monocytes (test code = Monocytes) 9.6 2.0-12.0 [place] [address]-12-29 19:07:00 Test Item Value Reference Range Interpretation Comments Eosinophils (test code = 4.4 See_Comment [A utomated message] The Eosinophils) system which ge nerated this result tra nsmitted reference range : <=4.0. The reference r glenn was not used to int erpret this result as normal/abnormal . [facility]2021-12-29 19:07:00 Test Item Value Reference Range Interpretation Comments Chloride Lvl (test code = Chloride Lvl) 99 95-109 [place] 953781-12-29 19:07:00 Test Item Value Reference Range Interpretation Comments Basophils (test code = 0.5 See_Comment [Aut omated message] The Basophils) system which ge nerated this result tra nsmitted reference range : <=1.0. The reference r glenn was not used to int erpret this result as normal/abnormal . [place] 953781-12-29 19:07:00 Test Item Value Reference Range Interpretation Comments Neutrophils # (test code = Neutrophils 3.3 1.5-8.1 #) [place] 953781-12-29 19:07:00 Test Item Value Reference Range Interpretation Comments Lymphocytes # (test code = Lymphocytes 1.6 1.0-5.5 #) [place] 953781-12-29 19:07:00 Test Item Value Reference Range Interpretation Comments Monocytes # (test code 0.5 See_Comment [Aut omated message] The = Monocytes #) system which generated this result tra nsmitted reference range : <=0.8. The reference r glenn was not used to int erpret this result as normal/abnormal . [place] 953781-12-29 19:07:00 Test Item Value Reference Range Interpretation Comments Eosinophils # (test code 0.2 See_Comment [A utomated message] The = Eosinophils #) system whic h generated this result tra nsmitted reference range : <=0.5. The reference r glenn was not used to int erpret this result as normal/abnormal . [facility] CenterFpxnknkMKOVKXLEWT2534-55-05 19:07:00 Test Item Value Reference Range Interpretation Comments WBC (test code = WBC) 5.7 3.7-10.4 [facility] CenterMsothurXAKRWXEBEN6414-09-09 19:07:00 Test Item Value Reference Range Interpretation Comments RBC (test code = RBC) 4.95 4.70-6.10 [place] 953781-12-29 19:07:00 Test Item Value Reference Range Interpretation Comments Hgb (test code = Hgb) 14.1 14.0-18.0 [place] 953781-12-29 19:07:00 Test Item Value Reference Range Interpretation Comments Hct (test code = Hct) 42.2 42.0-54.0 [place] 953781-12-29 19:07:00 Test Item Value Reference Range Interpretation Comments MCV (test code = MCV) 85.3 80.0-94.0 [facility]2021-12-29 19:07:00 Test Item Value Reference Range Interpretation Comments CO2 (test code = CO2) 27 24-32 [facility] CenterBvadaitDLOQSDJUXF0452-51-83 19:07:00 Test Item Value Reference Range Interpretation Comments MCH (test code = MCH) 28.6 pg 27.0-31.0 [facility] CenterHtijwriRXXCYOWZPF0193-46-11 19:07:00 Test Item Value Reference Range Interpretation Comments MCHC (test code = MCHC) 33.5 32.0-36.0 [facility] CenterCdmyvtjRLVRMQVLUL7252-65-65 19:07:00 Test Item Value Reference Range Interpretation Comments RDW (test code = RDW) 14.7 11.5-14.5 [place] 953781-12-29 19:07:00 Test Item Value Reference Range Interpretation Comments Platelet (test code = Platelet) 219 133-450 [facility] CenterHbhgtppXAIBOVFCGM7034-96-26 19:07:00 Test Item Value Reference Range Interpretation Comments MPV (test code = MPV) 8.2 7.4-10.[address] [facility] OJCUWSISQ1896-07-25 19:07:00 Test Item Value Reference Range Interpretation Comments Hgb A1C (test code = Hgb A1C) 6.4 [facility] BDYFC5745-22-23 19:07:00 Test Item Value Reference Range Interpretation Comments Calcium Lvl (test code = Calcium Lvl) 9.7 8.5-10.5 [facility]2021-12-29 19:07:00 Test Item Value Reference Range Interpretation Comments AGAP (test code = AGAP) 10.8 10.0-20.0 [facility]2021-12-29 19:07:00 Test Item Value Reference Range Interpretation Comments eGFR (test code = eGFR) 52 [facility]PcahgauASCYKVLQBQ1321-09-63 19:07:00 Test Item Value Reference Range Interpretation Comments Segs (test code = Segs) 57.5 45.0-75.0 [facility]2021-12-29 19:07:00 Test Item Value Reference Range Interpretation Comments Glucose Lvl (test code = Glucose Lvl) 153 70-99 [facility]2021-12-29 19:07:00 Test Item Value Reference Range Interpretation Comments BUN (test code = BUN) 18 7-22 [facility]2021-12-29 19:07:00 Test Item Value Reference Range Interpretation Comments Creatinine Lvl (test code = Creatinine 1.44 0.50-1.40 Lvl) [facility]2021-12-29 19:07:00 Test Item Value Reference Range Interpretation Comments Sodium Lvl (test code = Sodium Lvl) 132 135-145 [facility]2021-12-29 19:07:00 Test Item Value Reference Range Interpretation Comments Potassium Lvl (test code = Potassium 4.8 3.5-5.1 Lvl) [facility]2021-12-29 19:07:00 Test Item Value Reference Range Interpretation Comments Chloride Lvl (test code = Chloride Lvl) 99 95-109 [facility]2021-12-29 19:07:00 Test Item Value Reference Range Interpretation Comments CO2 (test code = CO2) 27 24-32 [place] 024481-12-29 19:07:00 Test Item Value Reference Range Interpretation Comments Calcium Lvl (test code = Calcium Lvl) 9.7 8.5-10.5 [facility]2021-12-29 19:07:00 Test Item Value Reference Range Interpretation Comments AGAP (test code = AGAP) 10.8 10.0-20.0 [place] 024481-12-29 19:07:00 Test Item Value Reference Range Interpretation Comments eGFR (test code = eGFR) 52 [place] 953781-12-29 19:07:00 Test Item Value Reference Range Interpretation Comments Lymphocytes (test code = Lymphocytes) 28.0 20.0-40.0 [place] 953781-12-29 19:07:00 Test Item Value Reference Range Interpretation Comments Segs (test code = Segs) 57.5 45.0-75.0 [place] 953781-12-29 19:07:00 Test Item Value Reference Range Interpretation Comments Lymphocytes (test code = Lymphocytes) 28.0 20.0-40.0 [place] 953781-12-29 19:07:00 Test Item Value Reference Range Interpretation Comments Monocytes (test code = Monocytes) 9.6 2.0-12.0 [place] 953781-12-29 19:07:00 Test Item Value Reference Range Interpretation Comments Eosinophils (test code = 4.4 See_Comment [A utomated message] The Eosinophils) system which ge nerated this result tra nsmitted reference range : <=4.0. The reference r glenn was not used to int erpret this result as normal/abnormal . [facility] CenterSqshrgtKQLKOUIZHV7741-35-42 19:07:00 Test Item Value Reference Range Interpretation Comments Basophils (test code = 0.5 See_Comment [Aut omated message] The Basophils) system which ge nerated this result tra nsmitted reference range : <=1.0. The reference r glenn was not used to int erpret this result as normal/abnormal . [place] 953781-12-29 19:07:00 Test Item Value Reference Range Interpretation Comments Neutrophils # (test code = Neutrophils 3.3 1.5-8.1 #) [place] 953781-12-29 19:07:00 Test Item Value Reference Range Interpretation Comments Lymphocytes # (test code = Lymphocytes 1.6 1.0-5.5 #) [facility] CenterUtluhuqWIUACSNLGN8528-08-24 19:07:00 Test Item Value Reference Range Interpretation Comments Monocytes # (test code 0.5 See_Comment [Aut omated message] The = Monocytes #) system which generated this result tra nsmitted reference range : <=0.8. The reference r glenn was not used to int erpret this result as normal/abnormal . [facility] CenterFbehesfPSPFJLGQRF5864-54-90 19:07:00 Test Item Value Reference Range Interpretation Comments Eosinophils # (test code 0.2 See_Comment [A utomated message] The = Eosinophils #) system whic h generated this result tra nsmitted reference range : <=0.5. The reference r glenn was not used to int erpret this result as normal/abnormal . [facility] CenterUpmmfgzDXJDOMLKUI6739-32-70 19:07:00 Test Item Value Reference Range Interpretation Comments WBC (test code = WBC) 5.7 3.7-10.4 [facility] CenterDzacpuwBNGEWRNGVV1316-45-84 19:07:00 Test Item Value Reference Range Interpretation Comments Monocytes (test code = Monocytes) 9.6 2.0-12.0 [facility] CenterOelkhtmKGHDQZAVTD6973-01-40 19:07:00 Test Item Value Reference Range Interpretation Comments RBC (test code = RBC) 4.95 4.70-6.10 [facility] CenterQwhnhebXJDDRETDWM2525-98-74 19:07:00 Test Item Value Reference Range Interpretation Comments Hgb (test code = Hgb) 14.1 14.0-18.0 [facility] CenterWqlidduWZJAIVZFJH7181-67-54 19:07:00 Test Item Value Reference Range Interpretation Comments Hct (test code = Hct) 42.2 42.0-54.0 [facility] CenterMeleoefVXHOMFRUWU0056-35-05 19:07:00 Test Item Value Reference Range Interpretation Comments MCV (test code = MCV) 85.3 80.0-94.0 [facility] CenterCtqfsmsNDBGTOCFKD9848-00-98 19:07:00 Test Item Value Reference Range Interpretation Comments MCH (test code = MCH) 28.6 pg 27.0-31.0 [facility] CenterCcpaqqfSQDNOMSUSY5515-08-52 19:07:00 Test Item Value Reference Range Interpretation Comments MCHC (test code = MCHC) 33.5 32.0-36.0 [place] 953781-12-29 19:07:00 Test Item Value Reference Range Interpretation Comments RDW (test code = RDW) 14.7 11.5-14.5 [facility] CenterPrelrweFMOEMBRCUD9891-73-30 19:07:00 Test Item Value Reference Range Interpretation Comments Platelet (test code = Platelet) 219 133-450 [facility] CenterCsyvnmmOMOKAIXOVQ0867-57-52 19:07:00 Test Item Value Reference Range Interpretation Comments MPV (test code = MPV) 8.2 7.4-10.[address] [facility] GZJXWCEIB6699-24-80 19:07:00 Test Item Value Reference Range Interpretation Comments Hgb A1C (test code = Hgb A1C) 6.4 [facility] CenterFuyodalLFACPCFCBZ7357-16-70 19:07:00 Test Item Value Reference Range Interpretation Comments Eosinophils (test code = 4.4 See_Comment [A utomated message] The Eosinophils) system which nerated this result tra nsmitted reference range : <=4.0. The reference r glenn was not used to int erpret this result as normal/abnormal . [facility] CenterOmjwyhoZGEUTKWKZM3136-76-05 19:07:00 Test Item Value Reference Range Interpretation Comments Basophils (test code = 0.5 See_Comment [Aut omated message] The Basophils) system which ge nerated this result tra nsmitted reference range : <=1.0. The reference r glenn was not used to int erpret this result as normal/abnormal . [facility] CenterQrkcpfdABKLREKAFG7964-47-70 19:07:00 Test Item Value Reference Range Interpretation Comments Neutrophils # (test code = Neutrophils 3.3 1.5-8.1 #) [facility] CenterHwqnzqdYFLDERLKNY4361-59-33 19:07:00 Test Item Value Reference Range Interpretation Comments Lymphocytes # (test code = Lymphocytes 1.6 1.0-5.5 #) [facility]2021-12-29 19:07:00 Test Item Value Reference Range Interpretation Comments Glucose Lvl (test code = Glucose Lvl) 153 70-99 [facility]2021-12-29 19:07:00 Test Item Value Reference Range Interpretation Comments BUN (test code = BUN) 18 7-22 [facility]2021-12-29 19:07:00 Test Item Value Reference Range Interpretation Comments Creatinine Lvl (test code = Creatinine 1.44 0.50-1.40 Lvl) [place] 024481-12-29 19:07:00 Test Item Value Reference Range Interpretation Comments Sodium Lvl (test code = Sodium Lvl) 132 135-145 [place] 024481-12-29 19:07:00 Test Item Value Reference Range Interpretation Comments Potassium Lvl (test code = Potassium 4.8 3.5-5.1 Lvl) [place] 953781-12-29 19:07:00 Test Item Value Reference Range Interpretation Comments Monocytes # (test code 0.5 See_Comment [Aut omated message] The = Monocytes #) system which generated this result tra nsmitted reference range : <=0.8. The reference r glenn was not used to int erpret this result as normal/abnormal . [place] 024481-12-29 19:07:00 Test Item Value Reference Range Interpretation Comments Chloride Lvl (test code = Chloride Lvl) 99 95-109 [place] 024481-12-29 19:07:00 Test Item Value Reference Range Interpretation Comments CO2 (test code = CO2) 27 24-32 [place] 024481-12-29 19:07:00 Test Item Value Reference Range Interpretation Comments Calcium Lvl (test code = Calcium Lvl) 9.7 8.5-10.5 [place] 024481-12-29 19:07:00 Test Item Value Reference Range Interpretation Comments AGAP (test code = AGAP) 10.8 10.0-20.0 [place] 024481-12-29 19:07:00 Test Item Value Reference Range Interpretation Comments eGFR (test code = eGFR) 52 [place] 953781-12-29 19:07:00 Test Item Value Reference Range Interpretation Comments Segs (test code = Segs) 57.5 45.0-75.0 [place] 953781-12-29 19:07:00 Test Item Value Reference Range Interpretation Comments Lymphocytes (test code = Lymphocytes) 28.0 20.0-40.0 [place] [address]-12-29 19:07:00 Test Item Value Reference Range Interpretation Comments Monocytes (test code = Monocytes) 9.6 2.0-12.0 [place] 953781-12-29 19:07:00 Test Item Value Reference Range Interpretation Comments Eosinophils (test code = 4.4 See_Comment [A utomated message] The Eosinophils) system which ge nerated this result tra nsmitted reference range : <=4.0. The reference r glenn was not used to int erpret this result as normal/abnormal . [facility] CenterXeuxopwDJXRVAKWTA7357-85-21 19:07:00 Test Item Value Reference Range Interpretation Comments Basophils (test code = 0.5 See_Comment [Aut omated message] The Basophils) system which ge nerated this result tra nsmitted reference range : <=1.0. The reference r glenn was not used to int erpret this result as normal/abnormal . [facility] CenterSpvmzhfVUBKLMAKWF3466-69-34 19:07:00 Test Item Value Reference Range Interpretation Comments Eosinophils # (test code 0.2 See_Comment [A utomated message] The = Eosinophils #) system [employer] generated this result tra nsmitted reference range : <=0.5. The reference r glenn was not used to int erpret this result as normal/abnormal . [facility] CenterDomkopwARLUCIWXAF0126-13-60 19:07:00 Test Item Value Reference Range Interpretation Comments Neutrophils # (test code = Neutrophils 3.3 1.5-8.1 #) [facility] CenterCywemmqQGCPBYDPLH5592-80-87 19:07:00 Test Item Value Reference Range Interpretation Comments Lymphocytes # (test code = Lymphocytes 1.6 1.0-5.5 #) [facility] CenterMeczaszDYHJRFQAYK3904-18-84 19:07:00 Test Item Value Reference Range Interpretation Comments Monocytes # (test code 0.5 See_Comment [Aut omated message] The = Monocytes #) system which generated this result tra nsmitted reference range : <=0.8. The reference r glenn was not used to int erpret this result as normal/abnormal . [facility] CenterXfyqtfqTXTBHHRAJJ0566-62-35 19:07:00 Test Item Value Reference Range Interpretation Comments Eosinophils # (test code 0.2 See_Comment [A utomated message] The = Eosinophils #) system [employer] generated this result tra nsmitted reference range : <=0.5. The reference r glenn was not used to int erpret this result as normal/abnormal . [facility] CenterBbqjseeHAUTPAZKWR4971-69-53 19:07:00 Test Item Value Reference Range Interpretation Comments WBC (test code = WBC) 5.7 3.7-10.4 [facility]NpgdicaIEENUZSZNF2119-24-19 19:07:00 Test Item Value Reference Range Interpretation Comments RBC (test code = RBC) 4.95 4.70-6.10 [facility] HospitalBxywmbsTYGDOZMLYW9650-26-89 19:07:00 Test Item Value Reference Range Interpretation Comments Hgb (test code = Hgb) 14.1 14.0-18.0 [facility] HospitalTybprbkDWFLBMPRPF9601-91-29 19:07:00 Test Item Value Reference Range Interpretation Comments Hct (test code = Hct) 42.2 42.0-54.0 [facility] [facility]00 Test Item Value Reference Range Interpretation Comments MCV (test code = MCV) 85.3 80.0-94.0 [facility]EsqusljDSIRWXUOSF7771-21-68 19:07:00 Test Item Value Reference Range Interpretation Comments MCH (test code = MCH) 28.6 pg 27.0-31.0 [facility] HospitalNprzsdpNCMGTSVHQJ0297-56-42 19:07:00 Test Item Value Reference Range Interpretation Comments WBC (test code = WBC) 5.7 3.7-10.4 [facility]LiftylnONYHASRPVJ6279-68-49 19:07:00 Test Item Value Reference Range Interpretation Comments MCHC (test code = MCHC) 33.5 32.0-36.0 [facility]CiupmcvSODLQWMUUR9050-44-35 19:07:00 Test Item Value Reference Range Interpretation Comments RDW (test code = RDW) 14.7 11.5-14.5 [facility] HospitalUhsiankVANIMJDGDN9127-17-34 19:07:00 Test Item Value Reference Range Interpretation Comments Platelet (test code = Platelet) 219 133-450 [facility] CenterEzovycnMGOGYFSIUT2469-22-09 19:07:00 Test Item Value Reference Range Interpretation Comments MPV (test code = MPV) 8.2 7.4-10.[address] [facility] WGNPJXWXC4421-66-53 19:07:00 Test Item Value Reference Range Interpretation Comments Hgb A1C (test code = Hgb A1C) 6.4 [facility] CenterKpyhaquKFZHMIRPWE9640-75-05 19:07:00 Test Item Value Reference Range Interpretation Comments RBC (test code = RBC) 4.95 4.70-6.10 [facility] CenterKwthxhfNXFPAZPKAP6412-06-85 19:07:00 Test Item Value Reference Range Interpretation Comments Hgb (test code = Hgb) 14.1 14.0-18.0 [facility] CenterBvaurndALJMOCSUFZ6919-06-37 19:07:00 Test Item Value Reference Range Interpretation Comments Hct (test code = Hct) 42.2 42.0-54.0 [facility] HospitalHlinsglKEFWDMALWP9837-71-27 19:07:00 Test Item Value Reference Range Interpretation Comments MCV (test code = MCV) 85.3 80.0-94.0 [facility] CenterMrchhizQPRRENGIXE2564-80-19 19:07:00 Test Item Value Reference Range Interpretation Comments MCH (test code = MCH) 28.6 pg 27.0-31.0 [facility] HospitalBspivelZFGHEUTCTH1250-30-96 19:07:00 Test Item Value Reference Range Interpretation Comments MCHC (test code = MCHC) 33.5 32.0-36.0 [facility] HospitalLmmzuslFCGMTHBFII6524-10-12 19:07:00 Test Item Value Reference Range Interpretation Comments RDW (test code = RDW) 14.7 11.5-14.5 [facility] CenterGatkzdsKNNSLWAVQL4294-11-44 19:07:00 Test Item Value Reference Range Interpretation Comments Platelet (test code = Platelet) 219 133-450 [facility] HospitalWtzhbzwKMKRCHFLXN7432-44-25 19:07:00 Test Item Value Reference Range Interpretation Comments MPV (test code = MPV) 8.2 7.4-10.[address] [facility] QLJZOVCWA9534-02-58 19:07:00 Test Item Value Reference Range Interpretation Comments Hgb A1C (test code = Hgb A1C) 6.4 [facility] CenterEnmot[facility] UPPJA1506-30-16 19:07:00 Test Item Value Reference Range Interpretation Comments Glucose Lvl (test code = Glucose Lvl) 153 70-99 [facility] OXNMP9863-66-01 19:07:00 Test Item Value Reference Range Interpretation Comments BUN (test code = BUN) 18 7-22 [facility] EWIYU3077-71-72 19:07:00 Test Item Value Reference Range Interpretation Comments Creatinine Lvl (test code = Creatinine 1.44 0.50-1.40 Lvl) [facility] ZAXFB5506-15-49 19:07:00 Test Item Value Reference Range Interpretation Comments Sodium Lvl (test code = Sodium Lvl) 132 135-145 [place] 024481-12-29 19:07:00 Test Item Value Reference Range Interpretation Comments Potassium Lvl (test code = Potassium 4.8 3.5-5.1 Lvl) [place] 024481-12-29 19:07:00 Test Item Value Reference Range Interpretation Comments Chloride Lvl (test code = Chloride Lvl) 99 95-109 [place] 024481-12-29 19:07:00 Test Item Value Reference Range Interpretation Comments CO2 (test code = CO2) 27 24-32 [place] 024481-12-29 19:07:00 Test Item Value Reference Range Interpretation Comments Calcium Lvl (test code = Calcium Lvl) 9.7 8.5-10.5 [place] 024481-12-29 19:07:00 Test Item Value Reference Range Interpretation Comments AGAP (test code = AGAP) 10.8 10.0-20.0 [place] 024481-12-29 19:07:00 Test Item Value Reference Range Interpretation Comments eGFR (test code = eGFR) 52 [place] 953781-12-29 19:07:00 Test Item Value Reference Range Interpretation Comments Segs (test code = Segs) 57.5 45.0-75.0 [place] 953781-12-29 19:07:00 Test Item Value Reference Range Interpretation Comments Lymphocytes (test code = Lymphocytes) 28.0 20.0-40.0 [place] 953781-12-29 19:07:00 Test Item Value Reference Range Interpretation Comments Monocytes (test code = Monocytes) 9.6 2.0-12.0 [place] [address]-12-29 19:07:00 Test Item Value Reference Range Interpretation Comments Eosinophils (test code = 4.4 See_Comment [A utomated message] The Eosinophils) system which ge nerated this result tra nsmitted reference range : <=4.0. The reference r glenn was not used to int erpret this result as normal/abnormal . [place] 953781-12-29 19:07:00 Test Item Value Reference Range Interpretation Comments Basophils (test code = 0.5 See_Comment [Aut omated message] The Basophils) system which ge nerated this result tra nsmitted reference range : <=1.0. The reference r glenn was not used to int erpret this result as normal/abnormal . [facility]MbrsahvXWTNSIIHJK5193-11-36 19:07:00 Test Item Value Reference Range Interpretation Comments Neutrophils # (test code = Neutrophils 3.3 1.5-8.1 #) [place] 953781-12-29 19:07:00 Test Item Value Reference Range Interpretation Comments Lymphocytes # (test code = Lymphocytes 1.6 1.0-5.5 #) [place] 953781-12-29 19:07:00 Test Item Value Reference Range Interpretation Comments Monocytes # (test code 0.5 See_Comment [Aut omated message] The = Monocytes #) system which generated this result tra nsmitted reference range : <=0.8. The reference r glenn was not used to int erpret this result as normal/abnormal . [facility] CenterMxkumyyDJOIELNAVA5891-86-23 19:07:00 Test Item Value Reference Range Interpretation Comments Eosinophils # (test code 0.2 See_Comment [A utomated message] The = Eosinophils #) system whic h generated this result tra nsmitted reference range : <=0.5. The reference r glenn was not used to int erpret this result as normal/abnormal . [facility] CenterJewhbjdGMTQXUZMWR3361-23-72 19:07:00 Test Item Value Reference Range Interpretation Comments WBC (test code = WBC) 5.7 3.7-10.4 [facility] CenterIbxiagsKPOHOOSTXK9144-17-21 19:07:00 Test Item Value Reference Range Interpretation Comments RBC (test code = RBC) 4.95 4.70-6.10 [place] 953781-12-29 19:07:00 Test Item Value Reference Range Interpretation Comments Hgb (test code = Hgb) 14.1 14.0-18.0 [place] 953781-12-29 19:07:00 Test Item Value Reference Range Interpretation Comments Hct (test code = Hct) 42.2 42.0-54.0 [place] 953781-12-29 19:07:00 Test Item Value Reference Range Interpretation Comments MCV (test code = MCV) 85.3 80.0-94.0 [place] 953781-12-29 19:07:00 Test Item Value Reference Range Interpretation Comments MCH (test code = MCH) 28.6 pg 27.0-31.0 [facility] CenterAhrmpulOWMNWQVYQO5294-57-10 19:07:00 Test Item Value Reference Range Interpretation Comments MCHC (test code = MCHC) 33.5 32.0-36.0 [facility] HospitalEpeiyxhJCNCXWQSBV6198-84-00 19:07:00 Test Item Value Reference Range Interpretation Comments RDW (test code = RDW) 14.7 11.5-14.5 [facility] CenterFtilmmfHVABRUWRTH5724-73-10 19:07:00 Test Item Value Reference Range Interpretation Comments Platelet (test code = Platelet) 219 133-450 [facility] HospitalUyhjztaXAQATLIKEZ3901-27-03 19:07:00 Test Item Value Reference Range Interpretation Comments MPV (test code = MPV) 8.2 7.4-10.[address] [facility] XHWLJAXTH0975-64-78 19:07:00 Test Item Value Reference Range Interpretation Comments Hgb A1C (test code = Hgb A1C) 6.4 [facility] OPCFJ8498-11-49 19:07:00 Test Item Value Reference Range Interpretation Comments Glucose Lvl (test code = Glucose Lvl) 153 70-99 [facility] ZUZWU5965-68-94 19:07:00 Test Item Value Reference Range Interpretation Comments BUN (test code = BUN) 18 7-22 [facility]2021-12-29 19:07:00 Test Item Value Reference Range Interpretation Comments Creatinine Lvl (test code = Creatinine 1.44 0.50-1.40 Lvl) [facility] TSUWP9118-41-82 19:07:00 Test Item Value Reference Range Interpretation Comments Sodium Lvl (test code = Sodium Lvl) 132 135-145 [facility] ROVUO6140-46-74 19:07:00 Test Item Value Reference Range Interpretation Comments Potassium Lvl (test code = Potassium 4.8 3.5-5.1 Lvl) [facility] [id number] 19:07:00 Test Item Value Reference Range Interpretation Comments Chloride Lvl (test code = Chloride Lvl) 99 95-109 [facility] WKJBZ0878-64-84 19:07:00 Test Item Value Reference Range Interpretation Comments CO2 (test code = CO2) 27 24-32 [place] 024481-12-29 19:07:00 Test Item Value Reference Range Interpretation Comments Calcium Lvl (test code = Calcium Lvl) 9.7 8.5-10.5 [place] 024481-12-29 19:07:00 Test Item Value Reference Range Interpretation Comments AGAP (test code = AGAP) 10.8 10.0-20.0 [place] 024481-12-29 19:07:00 Test Item Value Reference Range Interpretation Comments eGFR (test code = eGFR) 52 [place] 953781-12-29 19:07:00 Test Item Value Reference Range Interpretation Comments Segs (test code = Segs) 57.5 45.0-75.0 [place] 953781-12-29 19:07:00 Test Item Value Reference Range Interpretation Comments Lymphocytes (test code = Lymphocytes) 28.0 20.0-40.0 [place] 953781-12-29 19:07:00 Test Item Value Reference Range Interpretation Comments Monocytes (test code = Monocytes) 9.6 2.0-12.0 [place] 953781-12-29 19:07:00 Test Item Value Reference Range Interpretation Comments Eosinophils (test code = 4.4 See_Comment [A utomated message] The Eosinophils) system which ge nerated this result tra nsmitted reference range : <=4.0. The reference r glenn was not used to int erpret this result as normal/abnormal . [place] 953781-12-29 19:07:00 Test Item Value Reference Range Interpretation Comments Basophils (test code = 0.5 See_Comment [Aut omated message] The Basophils) system which ge nerated this result tra nsmitted reference range : <=1.0. The reference r glenn was not used to int erpret this result as normal/abnormal . [place] 953781-12-29 19:07:00 Test Item Value Reference Range Interpretation Comments Neutrophils # (test code = Neutrophils 3.3 1.5-8.1 #) [place] 953781-12-29 19:07:00 Test Item Value Reference Range Interpretation Comments Lymphocytes # (test code = Lymphocytes 1.6 1.0-5.5 #) [place] 953781-12-29 19:07:00 Test Item Value Reference Range Interpretation Comments Monocytes # (test code 0.5 See_Comment [Aut omated message] The = Monocytes #) system which generated this result tra nsmitted reference range : <=0.8. The reference r glenn was not used to int erpret this result as normal/abnormal . [facility] CenterKfcgdkdAXUJSAGQHZ8447-73-77 19:07:00 Test Item Value Reference Range Interpretation Comments Eosinophils # (test code 0.2 See_Comment [A utomated message] The = Eosinophils #) system whic h generated this result tra nsmitted reference range : <=0.5. The reference r glenn was not used to int erpret this result as normal/abnormal . [facility] CenterUmstkouCOCCNZBYUL2726-71-95 19:07:00 Test Item Value Reference Range Interpretation Comments WBC (test code = WBC) 5.7 3.7-10.4 [facility] CenterIwdseibCMJJHAGGIG8850-53-20 19:07:00 Test Item Value Reference Range Interpretation Comments RBC (test code = RBC) 4.95 4.70-6.10 [facility] CenterFbfjvpvVOTJAOGXDY2857-76-95 19:07:00 Test Item Value Reference Range Interpretation Comments Hgb (test code = Hgb) 14.1 14.0-18.0 [facility] CenterWqysjywAFFKZSGVGQ7458-55-96 19:07:00 Test Item Value Reference Range Interpretation Comments Hct (test code = Hct) 42.2 42.0-54.0 [facility] CenterQndfrzqLGUBBTONIP2914-52-97 19:07:00 Test Item Value Reference Range Interpretation Comments MCV (test code = MCV) 85.3 80.0-94.0 [facility] CenterCfspkkzODIMPXQXOV1393-93-42 19:07:00 Test Item Value Reference Range Interpretation Comments MCH (test code = MCH) 28.6 pg 27.0-31.0 [facility] CenterSukthiuYDWSHHXBSH8860-82-84 19:07:00 Test Item Value Reference Range Interpretation Comments MCHC (test code = MCHC) 33.5 32.0-36.0 [facility] AntigenSARS-COV 2 Antigen Notes Date/Time Note Provider Source 2020-10-15 EXAM: CT MYELOGRAM LUMBAR SPINE [facility] 10:19:00-00:00 DATE: 10/15/2020 Center INDICATION: 'Radiculopathy. - [...] complete osseous fusion. No spinal canal narrowing. Rrej-js-pfejrpof bilateral neural foraminal narrowing. * L5-S1: Fusion [...] and continues to around T11-T12. 2020-10-15 EXAM: CT MYELOGRAM LUMBAR SPINE [facility] 10:19:00-00:00 DATE: 10/15/2020 Center INDICATION: 'Radiculopathy. - [...] complete osseous fusion. No spinal canal narrowing. Idjw-kr-ajjmabiu bilateral neural foraminal narrowing. * L5-S1: Fusion [...] EXAM: FLUOROSCOPY-GUIDED LUMBAR PUNCTURE FOR CT MYELOGRAM [facility] 08:31:14-00:00 DATE: 10/15/2020 Center INDICATION: 'Radiculopathy. - [...] for CT myelogram of the lumbar spine. 2020-10-15 EXAM: FLUOROSCOPY-GUIDED LUMBAR PUNCTURE FOR CT MYELOGRAM [facility] 08:31:14-00:00 DATE: 10/15/2020 Center INDICATION: 'Radiculopathy. - [...]
[2023-03-31 01:01] LABS: Hematocrit 38.8 % (39.6-49.0); Lymphocytes % 28.8 % (15.3-44.8); MCV 85.9 fL (80-100); MPV 8.1 fL (7.6-11.3); RBC Red Blood Cell Count 4.52 M/uL (4.33-5.43)
[2023-03-31] MEDS ORDERED: ONDANSETRON 4 MG/2 ML VIAL ONE (01:05)
[2023-03-31] MEDS ORDERED: MORPHINE 4 MG/ML SYR ONE ×2 (01:05→02:46)
[2023-03-31 01:20] LABS: Potassium 3.5 mEq/L (3.5-5.1); Troponin High Sensitivity 6.2 pg/mL (<58.9)
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
--- NOTE | 2023-03-31 03:55 | ER ---
Nurse's Notes [facility] Name: Moshe Ewing Age: 62 yrs Sex: Male : 1960 Arrival Date: 03/31/2023 Time: 00:33 Bed 26 Private MD: Diagnosis: Chest pain, unspecified;Acute stress reaction, exacerbation of chronic pain, noncardiac chest pain Presentation: 03/31 00:44 Chief complaint: EMS states: Pt originally called for stroke like symptoms but pt was kd3 complaining of chest and neck pain on arrival. Pt was negative for stroke screen. Pt continues to complain of chest pain and neck pain. Coronavirus screen: Vaccine status: Patient reports being unvaccinated. Ebola Screen: No symptoms or risks identified at this time. Initial Sepsis Screen: Does the patient meet any 2 criteria? No. Patient's initial sepsis screen is negative. Does the patient have a suspected source of infection? No. Patient's initial sepsis screen is negative. Risk Assessment: Do you want to hurt yourself or someone else? Patient reports no desire to harm self or others. Onset of symptoms was March 31, 2023. 00:44 Method Of Arrival: EMS: [facility] kd3 00:44 Acuity: MYRIAM 3 kd3 Triage Assessment: 00:47 General: Appears uncomfortable, Behavior is calm, cooperative. Pain: Complains of pain kd3 in chest and neck. Cardiovascular: Patient's skin is warm and dry. Historical: - Allergies: 00:47 amlodipine; kd3 00:47 lidocaine patch; kd3 - PMHx: 00:47 Hypertension; Hypercholesterolemia; Hypothyroidism; DVT; Diabetes - NIDDM; chronic neck kd3 pain; - PSHx: 00:47 back sx; cadriac stent; Cholecystectomy; external loop recorder; L hand SX with plates kd3 placed; R BKA; stimulator R back for legs; foot/shoulder SX; - Immunization history:: Adult Immunizations up to date. - Social history:: Smoking status: unknown. - Family history:: not pertinent. Screenin:[address] [facility] ED Fall Risk Assessment (Adult) History of falling in the last 3 months, kd3 including since admission No falls in past 3 months (0 pts) Confusion or Disorientation No (0 pts) Intoxicated or Sedated No (0 pts) Impaired Gait Yes (1 pt) Mobility Assist Device Used Yes (1 pt) Altered Elimination No (0 pt) Score/Fall Risk Level 0 - 2 = Low Risk Maintained a safe environment. Abuse screen: Denies threats or abuse. Denies injuries from another. Nutritional screening: No deficits noted. Tuberculosis screening: No symptoms or risk factors identified. Assessment: 02:09 General: Appears uncomfortable, Behavior is calm, cooperative. Pain: Complains of pain kd3 in chest and neck Pain began gradually. 03:48 Reassessment: No changes from previously documented assessment. Patient and/or family kd3 updated on plan of care and expected duration. Pain level reassessed. Patient is alert, oriented x 3, equal unlabored respirations, skin warm/dry/pink. Vital Signs: 00:44 BP 165 / 96; Pulse 65; Resp 19; Temp 97.7(O); Pulse Ox 100% on R/A; Weight 86.64 kg; kd3 01:24 BP 148 / 91; Pulse 70; Resp 19; Pulse Ox 99% on R/A; kd3 02:09 BP 158 / 98; Pulse 70; Resp 19; Pulse Ox 98% on R/A; kd3 02:44 BP 158 / 98; Pulse 68; Resp 19; Pulse Ox 96% on R/A; kd3 03:46 BP 144 / 89; Pulse 66; Resp 18; Pulse Ox 95% on R/A; kd3 ED Course: 00:42 Patient arrived in ED. kd3 00:47 Triage completed. kd3 00:47 Arm band placed on right wrist. kd3 00:49 Kenzie Bee RN is Primary Nurse. kd3 00:49 Maintain EMS IV. Dressing intact. Good blood return noted. Site clean \T\ dry. Gauge \T\ kd 3 site: 18 g R A/C. 00:51 Martin Sebastian MD is Attending Physician. sp4 00:54 Basic Metabolic Panel Sent. rv1 00:54 CBC with Diff Sent. rv1 00:54 Troponin HS Sent. rv1 02:10 Patient has correct armband on for positive identification. Client placed on continuous kd3 cardiac and pulse oximetry monitoring. NIBP monitoring applied. clother in on. 02:10 No provider procedures requiring assistance completed. Patient maintains SpO2 kd3 saturation greater than 95% on room air. 02:39 XRAY Chest (1 view) In Process Unspecified. EDMS 03:33 Troponin HS Sent. kd3 03:54 Iggy Funk MD is Referral Physician. sp4 04:02 IV discontinued, intact, bleeding controlled, No redness/swelling at site. Pressure kd3 dressing applied. Administered Medications: 00:59 Drug: morphine IVP or IV 4 mg Route: IVP; Infused Over: 4 mins; Site: right forearm; kd3 04:02 Follow up: Response: No adverse reaction kd3 00:59 Drug: Ondansetron IVP 4 mg Route: IVP; Site: right forearm; kd3 04:02 Follow up: Response: No adverse reaction kd3 02:40 Drug: morphine IVP or IV 4 mg Route: IVP; Infused Over: 4 mins; Site: right forearm; kd3 04:02 Follow up: Response: No adverse reaction kd3 04:02 Not Given (Patient Refused): Acetaminophen PO 1000 mg PO once kd3 Medication: 02:10 VIS not applicable for this client. kd3 Outcome: 03:54 Discharge ordered by . sp4 04:02 Discharged to home ambulatory. kd3 04:02 Condition: stable 04:02 Discharge instructions given to patient, Instructed on discharge instructions, follow up and referral plans. medication usage, Demonstrated understanding of instructions, follow-up care, medications, Prescriptions given X 1. 04:03 Patient left the ED. kd3 Signatures: Dispatcher [employer] [facility]IL Kenzie Bee RN RN kd3 Anju Woodard rv1 Martin Sebastian MD MD sp4
[2023-03-31 04:07] VITALS: TEMP 97.7
[2023-03-31 04:12] VITALS: BP 144/89; O2SAT 95
--- NOTE | 2023-03-31 12:28 | EKG ---
Test Date: 2023-03-31 Test Time: 00:41:48 Phone Engineer: EFRAÍN MEASUREMENT RESULTS: Intervals: Rate: 65 ID: [id number] QRSD: 144 QT: 434 QTc: 451 [place]: P: 57 ID: [id number] QRS: 81 T: 60 INTERPRETIVE STATEMENTS: Normal sinus rhythm Right bundle branch block Abnormal ECG Compared to ECG 03/24/2023 00:02:32 Right bundle-branch block now present Electronically Signed On 03-31-23 12:27:35 CDT by Jae Owens
--- NOTE | 2023-04-02 06:31 | RAD REPORT ---
EXAM DESCRIPTION: RAD - Chest Single View - 03/31/2023 2:37 am CLINICAL HISTORY: 62 years, Male, CHEST PAIN COMPARISON: 03/23/2023 FINDINGS: Single view of the chest was obtained portable. Prior films were compared. External EKG le ads within the [id number] limits diagnosis. The cardiomediastinal silhouette demonstrate to be unr emarkable. The heart is not enlarged. The thoracic aorta is unremarkable. The pulmonary vasculature i s normal distribution. Costophrenic angles are sharp. No areas of consolidation or masses are seen. The rest of the soft tissue and bony structures demonstrate to be unremarkable. IMPRESSION: No acute cardiopulmonary disease seen. Electronically signed by: Harshil Rodriguez MD 03/31/2023 3:16 AM CDT Due to temporary technical issues with the PACS/Fluency reporting system, reports are being signed by the in house radiologists without review as a courtesy to insure prompt reporting. The interpreting radiologist is fully responsible for the content of the report.
== END 2023-03-31 04:03 | disposition home or self-care (01) ==
LOC: ER 00:33
DX: F43.0 Acute stress reaction (principal); G89.29 Other chronic pain; I10 Essential (primary) hypertension; Z95.818 Presence of other cardiac implants and grafts; Z88.5 Allergy status to narcotic agent; Z88.8 Allergy status to other drugs, medicaments and biological substances
CPT/HCPCS: 93005; 85025; 80048; 36415; 84484 ×2; 71045; 96375; 96374; 99285; J2405

== ENCOUNTER 2023-07-30 14:20 | Emergency (ER) | payer OTHER ==
--- OUTSIDE RECORDS SUMMARY | 2023-07-30 14:38 | XMS REPORT | Continuity of Care Document ---
:1960 Author Organization [facility] t Address [address] [place] [address] [address] [place] [address] Care Team Providers Name Role Phone Regina Hodges Primary Care Physician Maira Oliveira Attending Clinician Unavailable Regina Hodges Attending Clinician Unavailable Brian Bright Attending Clinician BRIAN SCHAFFER Attending Clinician Unavailable Doctor Unassigned, [place] Attending Clinician Unavailable Jeison Hays Attending Clinician Radiology Attending Clinician Unavailable RADIOLOGY Attending Clinician Unavailable Carolina Rice RN Attending Clinician Unavailable EARL GODDARD Attending Clinician Unavailable Leonora Guzman Attending Clinician Alexandre Montemayor MD Attending Clinician Earl Goddard MD Attending Clinician Wallace Dotson MD Attending Clinician WALLACE DOTSON Attending Clinician Unavailable Braxton Nash [...] Policy Number Effective Date Expiration Date Janell MACHADO/[facility] DUAL [id number] 2020 COMP HMO D SNP 00:00:00 MEDICAID [place] [id number] 2020 [place] 00:[place]00 [facility] AARP [facility] 53 [id number] 2020 Common Advantage 00:00:00 Spirit - CHI (HMO-POS) [facility] [id number] HEALTHCARE [facility] MEDICARE [id number] 2020 COMPLETE CHOICE 00:00:00 THANH HERNÁNDEZ PLS [id number] 2019 HMO 00:00:00 MEDICARE PART A [id number] 2004 2019 \T\ B 00:00:00 00:00:00 Problems Condition Condition Condition Status Onset Resolution Last Treating Co mments Source Name Details Category Date Date Treatment Clinician Date Coronary Coronary Disease Active 2021-09 Unive rs artery artery 1-17 ity of disease disease 00:00: [place] involving involving 00 Medi [facility] coronary coronary artery of artery of [facility] heart without without angina angina pectoris pectoris Generalize Generalize Disease Active 2021-09 U nivers d d 1-17 [place] of abdominal abdominal [place] pain pain 00 [place] Coronary Coronary Disease Active 2021-09 Unive rs artery artery 1-17 ity of disease disease 00:00: [place] involving involving 00 Medi [facility] coronary coronary artery of artery of [facility] heart heart without without angina angina pectoris pectoris Chest pain Chest pain Disease Active 2021-09 U nivers 1-16 ity of 00:00: [place] 00 Medical Branch SPINAL SPINAL Diagnosis Active 2020-092021-09-26 Me wallace CORD CORD 11-24 08:25:00 l STIMULATOR STIMULATOR 00:00: He rmann INSERTION INSERTION 00 Active 09/23/2021 [facility] UNK UNK Diagnosis Active 2020-092021-09-24 Mem oria Active 11-24 12:49:00 l 09/23/2021 00:00: [place] [facility] 00 [place] Other Other Disease Active 2020-09 Univers age-relate age-relate 11-03 it y of d cataract d cataract [place] of left of left 00 Medical eye eye Branch RADICULOPA RADICULOP Diagnosis Active 2020-10-15 Memoria THY, ATHY, 1 07:21:00 l LUMBAR LUMBAR 00:00: [place] REGION REGION 00 Active 10/04/2020 [facility] Obesity Obesity Disease Active Univers (BMI (BMI [...] Impaired Problem Active 2023-03-29 Memoria mobility mobility 8- 11:30:35 l (finding) (finding) 00:00: Herm adam Active 00 04/28/2011 Problem 03/29/2023 Manuel Adams [facility] Angina Angina Problem Active 2023-03-29 Brodie douglas (disorder) (disorder) 11:30:35 l Active Michael Problem 03/29/2023 Manuel Bee [facility] Diabetes Diabetes Problem Active 2023-03-29 Memoria mellitus mellitus 11:30:35 l (disorder) (disorder) He rmann Active [facility] Hyperlipid Hyperlipi Problem Active 2023-03-29 Memoria emia demia 11:30:35 l (disorder) (disorder) He rmann Active Problem 03/29/2023 [facility] Cervical Cervical Problem Active 2023-03-29 Memoria radiculopa radiculopa 11:30:35 l thy thy [place] (disorder) (disorder) Active Problem 03/29/2023 [facility] Cervical Cervical Problem Active 2023-03-29 Memoria spondylosi spondylosi 11:30:35 l s s [place] (disorder) (disorder) Active Problem 03/29/2023 [facility] Submandibu Submandib Problem Active 2023-03-29 Memoria lar ular 11:30:35 l lymphadeno lymphadeno He rmann ryne ryne (disorder) (disorder) Active Problem 03/29/2023 [facility] Hypertensi Hypertens Problem Active 2023-03-29 Memoria ve phi 11:30:35 l disorder, disorder, Herm adam systemic systemic arterial arterial (disorder) (disorder) Active Problem 03/29/2023 [facility] Pain Pain Problem Active 2023-03-29 Memor ia (finding) (finding) 11:30:35 l Active [place] Problem 03/29/2023 [facility] Carpal Carpal Problem Active 2023-03-29 Brodie douglas tunnel tunnel 11:30:35 l syndrome syndrome Tera n (disorder) (disorder) Active Problem 03/29/2023 [facility] Hypothyroi Hypothyro Problem Resolve 2021-09-28 Memoria dism idism d 22:42:20 l (disorder) (disorder) He rmann Resolved Problem 09/28/2021 [place] [id number] Essential Problem Comm on hypertensi Spirit on - CHI [facility] [id number] [place] [id number] prostatic Spirit hyperplasi - CHI a with [facility] urinary [facility] tract Center symptoms [id number] Other Problem Common secondary Spirit acute gout - CHI of left [facility] [id number] Type 2 Problem Common diabetes Spirit mellitus [facility] Center d whether nursing home insulin use [id number] Acquired Problem Comm on hypothyroi Spirit dism - [facility] [id number] Frequency Problem Com mon of Spirit micturitio - CHI n [facility] [id number] Mass in Problem Commo n neck Spirit - [facility] [id number] History of Problem C ommon right Spirit below knee - CHI amputation [facility] [id number] Cervical Problem Com mon osteophyte [facility] CH[facility] [id number] [place] [id number] exam [facility] [id number] 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 polyneurop Medica l [facility] without long-term current use of insulin [id number] Benign Problem Common prostatic Spirit hyperplasi - CHI a without [facility] urinary Medical tract Center symptoms [id number] PAD Problem Common (periphera Spirit l artery - CHI disease) [facility] [id number] Mixed Problem Common hyperlipid Spirit emia - [facility] Polyneurop Polyneurop Problem C ommon athy athy Spirit - [facility] Raised Raised Problem Active [place] prostate Prostate da specific Specific Medica l antigen Antigen Group Allergies, Adverse Reactions, Alerts Allergy Allergy Status Severity Reaction(s) Onset Inactive Treating Comm ents Source Name Type Date Date Clinician AMLODIPI DRUG Active Unknown-Cmnt 2021-09 Un jovi CALLES INGREDI 10-12 ity of 00:00: [place] 00 Medical Branch Amlodipi Propensi Active Unknown - 2021-09 Reaction U nivers ne ty to See comments 10-12 unknown ity of adverse 00:00: [place] reaction 00 Medical s Branch No Known No Known Active Memori a Medicati Medicati l on on [place] Allergie Allergie s s NO KNOWN Drug Active Univers ALLERGIE Class ity of S [facility] 7200 Drug Active CP, SOB, Common allergy Nausea Spirit - [facility] Social History Social Habit Start Date Stop Date Quantity Comments Source Gender identity Universit y of [facility] Sexual orientation Univer sity [facility] Sex Assigned At Common Sp josee - [facility] History of Tobacco Common Spirit - Use [facility] Alcohol intake 2023-06-10 2023-06-10 0 /d University of 00:00:00 00:00:00 [place] Medical [facility] History of Social 2023-06-10 2023-06-10 Univers ity of function 00:00:00 00:00:00 [place] Medical [facility] History SDOH Food 2022-08-14 2022-08-14 1 Univers ity of Worry 00:00:00 00:00:00 [place] Medical [facility] History SDOH Food 2022-08-14 2022-08-14 1 Univers ity of Scarcity 00:00:00 00:00:00 [place] Medical [facility] History SDOH 2022-08-14 2022-08-14 2 University o f Transport Med 00:00:00 00:00:00 [place] Medic al Branch History SDOH 2022-08-14 2022-08-14 2 University o f Transport Non-Med 00:00:00 00:00:00 [facility] edical Branch Exposure to 2022-08-02 2022-08-12 Not sure University SARS-CoV-2 (event) 00:00:00 10:42:00 [facility] Tobacco use and 2022-05-19 2022-05-19 Smokeless Universit y of exposure 00:00:00 00:00:00 tobacco non-user [facility] dical Branch Social History 2021-09-24 2021-09-24 [facility] jay 15:29:23 15:29:23 Smoking Status Start Date Stop Date Source Tobacco smoking status [facility] Medications Ordered Filled Start Stop Current Ordering Indication Dosage Frequency Signature Comments Components Source Medication Medication Date Date Medication? Clinician (SIG) Name Name gabapentin Yes 100 mg = 1 M emoria 100 mg oral 5-23 cap, PO, l capsule 16:35: TID, # 90 Roz nn 00 cap, 1 Refill(s), Pharmacy: [facility], 175.26, cm, 02/16/23 11:00:00 CDT, Height, 91.364, kg, 02/16/23 11:00:00 CDT, Weight gabapentin 2023-0 Yes 100 mg = 1 M emoria 100 mg oral 5-23 cap, PO, l capsule 16:35: TID, # 90 Roz nn 00 cap, 1 Refill(s), Pharmacy: [facility], 175.26, cm, 02/16/23 11:00:00 CDT, Height, 91.364, kg, 02/16/23 11:00:00 CDT, Weight gabapentin 2023-0 Yes 100 mg = 1 M emoria 100 mg oral 5-23 cap, PO, l capsule 16:35: TID, # 90 Roz nn 00 cap, 1 Refill(s), Pharmacy: [facility], 175.26, cm, 02/16/23 11:00:00 CDT, Height, 91.364, kg, 02/16/23 11:00:00 CDT, Weight gabapentin 2023-0 Yes 100 mg = 1 M emoria 100 mg oral 5-23 cap, PO, l capsule 16:35: TID, # 90 Roz nn 00 cap, 1 Refill(s), Pharmacy: [facility], 175.26, cm, 02/16/23 11:00:00 CDT, Height, 91.364, kg, 02/16/23 11:00:00 CDT, Weight gabapentin 2023-0 Yes 100 mg = 1 M emoria 100 mg oral 5-23 cap, PO, l capsule 16:35: TID, # 90 Roz nn 00 cap, 1 Refill(s), Pharmacy: [facility], 175.26, cm, 02/16/23 11:00:00 CDT, Height, 91.364, kg, 02/16/23 11:00:00 CDT, Weight gabapentin 2023-0 Yes 100 mg = 1 M emoria 100 mg oral 5-23 cap, PO, l capsule 16:35: TID, # 90 Roz nn 00 cap, 1 Refill(s), Pharmacy: [facility], 175.26, cm, 02/16/23 11:00:00 CDT, Height, 91.364, kg, 02/16/23 11:00:00 CDT, Weight ondansetron 2022-0 Yes TAKE 1 Brodie douglas 4 mg oral 5-23 TABLET BY l tablet 16:33: MOUTH [place] 00 EVERY 12 HOURS NEEDED diazepam 5 2022-0 Yes TAKE 1 Memor ia mg oral 5-23 TABLET BY l tablet 16:33: MOUTH Michael 00 EVERY 8 HOURS NEEDED FOR ANXIETY tramadol 50 2022-0 Yes TAKE 1 Brodie douglas mg oral 5-23 TABLET BY l tablet 16:33: MOUTH [place] 00 EVERY 8 HOURS NEEDED FOR PAIN acetaminoph 2022-0 Yes TAKE 1 Brodie douglas en-hydrocod 5-23 TABLET BY l one 325 16:33: MOUTH [place] mg-10 mg 00 EVERY 8 oral tablet [...] 5-23 TABLET BY l tablet 16:33: MOUTH [place] 00 EVERY 8 HOURS NEEDED FOR PAIN [...] 5-23 TABLET BY l tablet 16:33: MOUTH [place] 00 EVERY 8 HOURS NEEDED FOR PAIN acetaminoph 3-0 Yes TAKE 1 Brodie douglas en-hydrocod 5-23 TABLET BY l one 325 16:33: MOUTH Michael mg-10 mg 00 EVERY 8 oral tablet HOURS NEEDED ondansetron 0 Yes TAKE 1 Brodie douglas 4 mg oral 5-23 TABLET BY l tablet 16:33: MOUTH [place] 00 EVERY 12 HOURS NEEDED diazepam 5 2022-0 Yes TAKE 1 Memor ia mg oral 5-23 TABLET BY l tablet 16:33: MOUTH [place] 00 EVERY 8 HOURS NEEDED FOR ANXIETY tramadol 50 Yes TAKE 1 Brodie douglas mg oral 5-23 TABLET BY l tablet 16:33: MOUTH [place] 00 EVERY 8 HOURS NEEDED FOR PAIN [...] 5-23 TABLET BY l tablet 16:33: MOUTH [place] 00 EVERY 8 HOURS NEEDED FOR ANXIETY tramadol 50 0 Yes TAKE 1 Brodie oduglas mg oral 5-23 TABLET BY l tablet 16:33: MOUTH Michael 00 EVERY 8 HOURS NEEDED FOR PAIN acetaminoph 0 Yes TAKE 1 Brodie douglas en-hydrocod 5-23 TABLET BY l one 325 16:33: MOUTH Michael mg-10 mg 00 EVERY 8 oral tablet HOURS NEEDED ondansetron 0 Yes TAKE 1 Brodie douglas 4 mg oral 5-23 TABLET BY l tablet 16:33: MOUTH [place] 00 EVERY 12 HOURS NEEDED diazepam 5 2022-0 Yes TAKE 1 Memor ia mg oral 5-23 TABLET BY l tablet 16:33: MOUTH Michael 00 EVERY 8 HOURS NEEDED FOR ANXIETY tramadol 50 0 Yes TAKE 1 Brodie douglas mg oral 5-23 TABLET BY l tablet 16:33: MOUTH [place] 00 EVERY 8 HOURS NEEDED FOR PAIN acetaminoph 0 Yes TAKE 1 Brodie douglas en-hydrocod 5-23 TABLET BY l one 325 16:33: MOUTH Micheal mg-10 mg 00 EVERY 8 oral tablet HOURS NEEDED Vitamin D3 2022-0 Yes 50 Memoria 2000 intl 4-18 microgram l units oral 20:16: = 1 tab, Her crews tablet 00 PO, Daily, 0 Refill(s) Vitamin D3 2022-0 Yes 50 Memoria 2000 intl 4-18 microgram l units oral 20:16: = 1 tab, Her crews tablet 00 PO, Daily, 0 Refill(s) Vitamin D3 3-0 Yes 50 Memoria 2000 intl 4-18 microgram [...] [place] dose [place] mg 00 on [facility] Medical 08/13/22 Branch at 2100, Until Discontinu ed sulfur 2021-09- No [id number] 5mL 5 mL, Unive rs hexafluorid 1-17 11-17 Intravenou i ty of e microsphr 20:30: 20:30 s, ONCE, 1 [place] (LUMASON) 00 :00 dose, On Medica l injection 5 Maegan Branch mL 08/13/22 at 1430, Routine
body service team member approving Restricted medication : MANDY VAUGHN finasteride 2021-09 Yes 5mg Take 5 mg U nivers 5 mg tablet 1-17 by mouth ity of 16:36: in the [place] morning. Medical Branch losartan 2021-09 Yes 100mg Take 100 Univ ers 100 mg 1-17 mg by ity of tablet 16:36: mouth in [place] [address] the Medical morning. Branch metFORMIN 2021-09 Yes 500mg Take 500 Uni vers 500 mg 1-17 mg by ity of tablet 16:36: mouth in [place] [address] the Medical morning Branch and 500 mg in the evening. Take with meals. lovastatin 2021-09 Yes 20mg Take 20 mg U nivers 20 mg 1-17 by mouth ity of tablet 16:36: at [place] [address] bedtime. Medical Branch tamsulosin 2021-09 Yes Take [...] by mouth ity of 16:36: in the [place] [address] morning. Medical Branch losartan 2021-09 Yes 100mg Take 100 Univ ers 100 mg 1-17 mg by ity of tablet 16:36: mouth in [place] the Medical morning. Branch metFORMIN 2021-09 Yes 500mg Take 500 Uni vers 500 mg 1-17 mg by ity of tablet 16:36: mouth in [place] the Medical morning Branch and 500 mg in the evening. Take with meals. lovastatin 2021-09 Yes 20mg Take 20 mg U nivers 20 mg 1-17 by mouth ity of tablet 16:36: at [place] [address] bedtime. Medical Branch tamsulosin 2021-09 Yes Take [...] mouth ity of tablet 16:36: in the [place] [address] morning. Medical Branch clopidogreL 2021-09 Yes 75mg Take 75 mg Univers (PLAVIX) 75 -17 by mouth ity of mg tablet 16:36: in the [place] [address] morning. Medical Branch Levothyroxi 2021-09 Yes Take by Uni vers ne 75 mcg 1-17 mouth. ity of capsule 16:36: [place] [address] Medical Branch finasteride 2021-09 Yes 5mg Take 5 mg U nivers 5 mg tablet 1-17 by mouth ity of 16:36: in the [place] [address] morning. Medical Branch losartan 2021-09 Yes 100mg Take 100 Univ ers 100 mg 1-17 mg by ity of tablet 16:36: mouth in [place] the Medical morning. Branch metFORMIN 2021-09 Yes 500mg Take 500 Uni vers 500 mg 1-17 mg by ity of tablet 16:36: mouth in [place] [address] the Medical morning Branch and 500 mg in the evening. Take with meals. lovastatin 2021-09 Yes 20mg Take 20 mg U nivers 20 mg 1-17 by mouth ity of tablet 16:36: at [place] [address] bedtime. Medical Branch tamsulosin 2021-09 Yes Take by Univ ers (FLOMAX) 1-17 mouth ity of 0.4 mg 24 16:36: daily. [place] hr capsule Medical Branch ergocalcife 2021-09 Yes 2000U Take 2,000 Univers rol, 1-17 Units by ity of vitamin D2, 16:36: [facility] Medical ORAL[facility] Branch aspirin [...] by mouth ity of 16:36: in the [place] [address] morning. Medical Branch losartan 2021-09 Yes 100mg Take 100 Univ ers 100 mg 1-17 mg by ity of tablet 16:36: mouth in [place] [address] the Medical morning. Branch metFORMIN 2021-09 Yes 500mg Take 500 Uni vers 500 mg 1-17 mg by ity of tablet 16:36: mouth in [place] [address] the Medical morning Branch and 500 mg in the evening. Take with meals. lovastatin 2021-09 Yes 20mg Take 20 mg U nivers 20 mg 1-17 by mouth ity of tablet 16:36: at [place] [address] bedtime. Medical Branch tamsulosin 2021-09 Yes Take by Univ ers (FLOMAX) 1-17 mouth ity of 0.4 mg 24 16:36: daily. [facility] [place] [place] Medical Branch ergocalcife 2021-09 Yes 2000U Take 2,000 Univers rol, 1-17 Units by ity of vitamin D2, 16:36: mouth. [facility] s (VITAMIN D Medical ORAL) Branch [...] mcg 1-17 mouth. ity of capsule 16:36: [place] [address] Medical Branch finasteride 2021-09 Yes 5mg Take 5 mg U nivers 5 mg tablet 1-17 by mouth ity of 16:36: in the [place] morning. Medical Branch losartan 2021-09 Yes 100mg Take 100 Univ ers 100 mg 1-17 mg by ity of tablet 16:36: mouth in [place] the Medical morning. Branch metFORMIN 2021-09 Yes 500mg Take 500 Uni vers 500 mg 1-17 mg by ity of tablet 16:36: mouth in [place] the Medical morning Branch and 500 mg in the evening. Take with meals. lovastatin 2021-09 Yes 20mg Take 20 mg U nivers 20 mg 1-17 by mouth ity of tablet 16:36: at [place] [address] bedtime. Medical Branch tamsulosin 2021-09 Yes Take by Univ ers (FLOMAX) 1-17 mouth ity of 0.4 mg 24 16:36: daily. [facility] capsule Medical Branch ergocalcife 2021-09 Yes 2000U [...] mouth ity of 16:36: in the [place] morning. Medical Branch losartan 2021-09 Yes 100mg Take 100 Univ ers 100 mg 1-17 mg by ity of tablet 16:36: mouth in [place] the Medical morning. Branch metFORMIN 2021-09 Yes 500mg Take 500 Uni vers 500 mg 1-17 mg by ity of tablet 16:36: mouth in [place] the Medical morning Branch and 500 mg in the evening. Take with meals. lovastatin 2021-09 Yes 20mg Take 20 mg U nivers 20 mg 1-17 by mouth ity of tablet 16:36: at [place] [address] bedtime. Medical Branch tamsulosin 2021-09 Yes Take by Univ ers (FLOMAX) 1-17 mouth ity of 0.4 mg 24 16:36: daily. [place] hr capsule Medical Branch ergocalcife 2021-09 Yes 2000U Take 2,000 Univers rol, 1-17 Units by ity of vitamin D2, 16:36: mouth. [facility] (VITAMIN D Medical ORAL) Branch aspirin 81 [...] mouth ity of 16:36: in the [place] morning. Medical Branch losartan 2021-09 Yes 100mg Take 100 Univ ers 100 mg 1-17 mg by ity of tablet 16:36: mouth in [place] [address] the Medical morning. Branch metFORMIN 2021-09 Yes 500mg Take 500 Uni vers 500 mg 1-17 mg by ity of tablet 16:36: mouth in [place] [address] the Medical morning Branch and 500 mg in the evening. Take with meals. lovastatin 2021-09 Yes 20mg Take 20 mg U nivers 20 mg 1-17 by mouth ity of tablet 16:36: at [place] [address] bedtime. Medical Branch tamsulosin 2021-09 Yes Take by Univ ers (FLOMAX) 1-17 mouth ity of 0.4 mg 24 16:36: daily. [place] hr capsule Medical Branch ergocalcife 2021-09 Yes 2000U Take 2,000 Univers rol, 1-17 Units by ity of vitamin D2, 16:36: mouth. [facility] (VITAMIN D Medical ORAL) Branch aspirin 81 2021-09 Yes 81mg Take 81 mg U nivers mg chewable 1-17 by mouth ity of tablet 16:36: in the [place] [address] morning. Medical Branch clopidogreL 2021-09 Yes 75mg Take 75 mg Univers (PLAVIX) 75 1-17 by mouth ity of mg tablet 16:36: in the [place] morning. Medical Branch Levothyroxi 2021-09 Yes Take by Uni vers ne 75 mcg 1-17 mouth. ity of capsule 16:36: [place] Medical Branch polyethylen 2021-09 Yes 17g 17 g, Unive rs e glycol -17 Oral, ity of 3350 powder 15:00: [place], [place] 17 g 00 First dose Medical on [facility] 08/13/22 at 0900, Until Discontinu ed, Routine tamsulosin 2021-09 Yes .4mg 0.4 mg, Univ ers (FLOMAX) -17 Oral, ity of capsule 0.4 15:00: [place], [place] mg 00 First dose Medical on [facility] 08/13/22 at 0900, Until Discontinu ed, Routine losartan 2021-09 Yes 100mg 100 mg, Unive rs (COZAAR) -17 Oral, ity of tablet 100 15:00: DAILY, [place] mg 00 First dose Medical on [facility] 08/13/22 at 0900, Until Discontinu ed, Routine finasteride 2021-09 Yes 5mg 5 mg, Unive rs (PROSCAR) -17 Oral, ity of tablet 5 mg 15:00: [place], [place] 00 First dose Medical on [facility] 08/13/22 at 0900, Until Discontinu ed, Routine clopidogreL 2021-09 Yes 75mg 75 mg, Univ ers (PLAVIX) 75 -17 Oral, ity of mg tablet 15:00: DAILY, [place] 75 mg 00 First dose Medical on [facility] 08/13/22 at 0900, Until Discontinu ed, Routine aspirin 2021-09 Yes 81mg 81 mg, Univers chewable 17 Oral, ity of tablet 81 15:00: DAILY, [place] mg 00 First dose Medical on [facility] 08/13/22 at 0900, Until Discontinu ed, Routine enoxaparin 2021-09 Yes 40mg 40 mg, Unive rs (LOVENOX) -17 Subcutaneo ity of injection 15:00: [place], [place], [place] 40 mg 00 First dose Medical on [facility] 08/13/22 at 0900, Until Discontinu ed, Routine [...] [place] mg 09 :09 Starting Medical on [facility] 08/12/22 at 1900, Until Maegan 08/13/22 at [...] 10-13 Oral, ity of (TYLENOL) 00:59: Q6HPRN, [place] tablet 650 59 Starting Medic al mg on Wed [place] 08/12/22 at 1859, Until Discontinu ed, Routine, Pain (scale 1-3) iopamidol 2021-09- No [id number] 100mL 100 mL, Univers (ISOVUE 10-12 Intravenou ity o f 370-500 mL) 19:45: 19:33 s, ONCE, 1 [place] injection 00 :00 dose, On Medica l 100 mL [facility] 08/12/22 at 1345, Routine hydralAZINE 2021-09- No 10mg 10 mg, Uni vers (APRESOLINE 10-12 Slow IV ity of ) injection 19:45: 18:58 [place], [place] 10 mg 00 :00 ONCE, 1 Medical dose, On Branch [facility] 08/12/22 at 1345, STAT LORazepam 2021-09- No 1mg 1 mg, Slow U nivers (ATIVAN) 10-12 IV Push, ity of injection 1 19:15: 19:11 ONCE, 1 [place] mg 00 :00 dose, On Medical [facility] 08/12/22 at 1315, STAT morpHINE (4 2021-09- No 4mg 4 mg, Slow Univers mg/mL) 10-12 IV Push, ity of injection 4 19:00: 18:55 ONCE, 1 [place] mg 00 :00 dose, On Medical [facility] 08/12/22 at 1300, STAT nitroglycer [...] 00 :00 dose, On Medical Wed08/12/22 at 1115, STAT Lidocaine & Lidocaine & [...] 00 :00 (Patch) meloxicam 2021-0 2021- No [id number] 15mg Take 1 Univers 15 mg 8-06-19 [id number] tablet by ity of tablet 00:00: 04:59 mouth in [place] 00 :00 the Medical morning Branch for 30 days. meloxicam 2021-2021- No [id number] 15mg Take 1 Univers 15 mg 8-06-19 [id number] tablet by ity of tablet 00:00: 04:59 mouth in [place] 00 :00 the [facility] morning Branch for 30 days. meloxicam 2021-2021- No [id number] 15mg Take 1 Univers 15 mg 8-06-19 [id number] tablet by ity of tablet 00:00: 04:59 mouth in [place] 00 :00 the [facility] morning Branch for 30 days. methylPREDN 2021-0 Yes [id number] 84mg Take 21 Univers ISolone 5-23 9103 tablets by ity of (MEDROL, 00:00: mouth [place] MICHELE,) 4 mg 00 SEE-INSTRU Med ical tablets CTIONS. Branch follow package directions methylPREDN 2021-0 Yes [id number] 84mg Take 21 Univers ISolone 5-23 9103 tablets by ity of (MEDROL, 00:00: mouth [place] MICHELE,) 4 mg 00 SEE-INSTRU Med ical tablets CTIONS. Branch follow package directions methylPREDN 2-0 Yes [id number] 84mg Take 21 Univers ISolone 5-23 9103 tablets by ity of (MEDROL, 00:00: mouth [place] MICHELE,) 4 mg 00 SEE-INSTRU Med ical tablets CTIONS. Branch follow package directions methylPREDN 2022-0 Yes [id number] 84mg Take 21 [facility] ISol[facility] 5-23 9103 tablets by ity of (MEDROL, 00:00: mouth [place] MICHELE,) 4 mg 00 SEE-INSTRU Med ical tablets CTIONS. Branch follow package directions methylPREDN 2021- No [id number] 84mg Take 21 [facility] ISolone 02-16 9103 tablets by amor douglas (MEDROL, 00:00: 00:00 mouth [place] MICHELE,) 4 [...] S pirit e) e) 00:00: - [facility] Toradol Toradol 2021-0 No 30mg Common (Ketorolac) (Ketorolac) 4-11 S pirit 00:00: - [facility] Rocephin Rocephin 2021-0 No 1000mg Com mon (Ceftriaxon (Ceftriaxon 4-11 S pirit e) e) 00:00: - [facility] Toradol Toradol 2021-0 No 30mg Common (Ketorolac) (Ketorolac) 4-11 S pirit 00:00: - [facility] Rocephin Rocephin 2021-0 No 1000mg Com mon (Ceftriaxon (Ceftriaxon 4-11 S pirit e) e) 00:00: - [facility] Toradol Toradol 2021-0 No 30mg Common (Ketorolac) (Ketorolac) 4-11 S pirit 00:00: - [facility] Naproxen Naproxen 2021-0 No BID Naproxen 500 MG 500 MG 4-11 500 MG 00:00: 00 Rocephin Rocephin 2-0 No 1000mg Com mon (Ceftriaxon (Ceftriaxon 4-11 S pirit e) e) 00:00: - [facility] Toradol Toradol 2021-0 No 30mg Common (Ketorolac) (Ketorolac) 4-11 S pirit 00:00: - [facility] Naproxen Naproxen 2021-0 No BID Naproxen 500 MG 500 MG 4-11 500 MG 00:00: 00 Rocephin Rocephin 2-0 No 1000mg Com mon (Ceftriaxon (Ceftriaxon 4-11 S pirit e) e) 00:00: - [facility] Toradol Toradol 2021-0 No 30mg Common (Ketorolac) (Ketorolac) 4-11 S pirit 00:00: - [facility] Rocephin Rocephin 2-0 No 1000mg Com mon (Ceftriaxon (Ceftriaxon 4-11 S pirit e) e) 00:00: - [facility] Toradol Toradol 2021-0 No 30mg Common (Ketorolac) (Ketorolac) 4-11 S pirit 00:00: - [facility] Rocephin Rocephin 2-0 No 1000mg Com mon (Ceftriaxon (Ceftriaxon 4-11 S pirit e) e) 00:00: - [facility] Toradol Toradol 2021-0 No 30mg Common (Ketorolac) (Ketorolac) 4-11 S pirit 00:00: - [facility] Rocephin Rocephin 2-0 No 1000mg Com mon (Ceftriaxon (Ceftriaxon 4-11 S pirit e) e) 00:00: - [facility] Toradol Toradol 2-0 No 30mg Common (Ketorolac) (Ketorolac) 4-11 S pirit 00:00: - [facility] Rocephin Rocephin 2-0 No 1000mg Com mon (Ceftriaxon (Ceftriaxon 4-11 S pirit e) e) 00:00: - [facility] Toradol Toradol 2021-0 No 30mg Common (Ketorolac) (Ketorolac) 4-11 S pirit 00:00: - [facility] Rocephin Rocephin 2-0 No 1000mg Com mon (Ceftriaxon (Ceftriaxon 4-11 S pirit e) e) 00:00: - [facility] Toradol Toradol 2021-0 No 30mg Common (Ketorolac) (Ketorolac) 4-11 S pirit 00:00: - [facility] Rocephin Rocephin 2021-0 No 1000mg Com mon (Ceftriaxon (Ceftriaxon 4-11 S pirit e) e) 00:00: - [facility] Toradol Toradol 2021-0 No 30mg Common (Ketorolac) (Ketorolac) 4-11 S pirit 00:00: - [facility] Rocephin Rocephin 2021-0 No 1000mg Com mon (Ceftriaxon (Ceftriaxon 4-11 S pirit e) e) 00:00: - [facility] Toradol Toradol 2021-0 No 30mg Common (Ketorolac) (Ketorolac) 4-11 S pirit 00:00: - [facility] Rocephin Rocephin 2-0 No 1000mg Com mon (Ceftriaxon (Ceftriaxon 4-11 S pirit e) e) 00:00: - [facility] Toradol Toradol 2021-0 No 30mg Common (Ketorolac) (Ketorolac) 4-11 S pirit 00:00: - [facility] cefTRIAXone cefTRIAXone 2021-0 No 1000mg Common Sodium Sodium 4-11 Spirit 00:00: - [facility] Toradol Toradol 2021-0 No 30mg Common (Ketorolac) (Ketorolac) 4-11 S pirit 00:00: - [facility] cefTRIAXone cefTRIAXone 2021-0 No 1000mg Common Sodium Sodium 4-11 Spirit 00:00: - [facility] Toradol Toradol 2021-0 No 30mg Common (Ketorolac) (Ketorolac) 4-11 S pirit 00:00: - [facility] cefTRIAXone cefTRIAXone 2021-0 No 1000mg Common Sodium Sodium 4-11 Spirit 00:00: - [facility] Toradol Toradol 2021-0 No 30mg Common (Ketorolac) (Ketorolac) 4-11 S pirit 00:00: - [facility] cefTRIAXone cefTRIAXone 2021-0 No 1000mg Common Sodium Sodium 4-11 Spirit 00:00: - [facility] Toradol Toradol 2021-0 No 30mg Common (Ketorolac) (Ketorolac) 4-11 S pirit 00:00: - [facility] cefTRIAXone cefTRIAXone 2021-0 No 1000mg Common Sodium Sodium 4-11 Spirit 00:00: - [facility] Toradol Toradol 2021-0 No 30mg Common (Ketorolac) (Ketorolac) 4-11 S pirit 00:00: - [facility] Amoxicillin Amoxicillin 2021-0 2021- No 1{table BID Amoxicilli -Pot -Pot 4-11 04-18 t} n-Pot Clavulanate Clavulanate 00:00: 00:00 Clavulanat 875-125 MG 875-125 MG 00 :00 e 875-125 MG ceFAZolin 2020-09 No Route: IV, Me moria (ANES) Drug form: l 18:23: INJ, ONCE, Stop date: 09/26/21 12:23:00 [employer]UG[employer] MACHINE OPERATOR ondansetron 2020-09 No Route: IV, Memoria (ANES) Drug form: l 18:23: INJ, ONCE, Michael 00 Stop date: 09/26/21 12:23:00 [employer]UG[employer] MACHINE OPERATOR dexamethaso 2020-09 No Route: IV, Memoria ne (ANES) Drug form: l 18:23: INJ, ONCE, [place] 00 Stop date: 09/26/21 12:23:00 [employer]UGATED [employer]OX MACHINE OPERATOR lidocaine 2020-09 No Route: IV, Me moria (ANES) Drug form: l 18:23: INJ, ONCE, Michael 00 Stop date: 09/26/21 12:23:00 [employer]UG[employer] MACHINE OPERATOR propofol 2020-09 No Route: IV, Mem oria (ANES) - Drug form: l 18:23: INJ, ONCE, Stop date: 09/26/21 12:23:00 [employer]UG[employer]OX MACHINE OPERATOR ceFAZolin 2020-09 No Route: IV, Me moria (ANES) 2- Drug form: l 18:23: INJ, ONCE, Stop date: 09/26/21 12:23:00 [employer]UG[employer]OX MACHINE OPERATOR ondansetron 2020-09 No Route: IV, Memoria (ANES) 2 Drug form: l 18:23: INJ, ONCE, Stop date: 09/26/21 12:23:00 [employer]UG[employer]OX MACHINE OPERATOR dexamethaso 2020-09 No Route: IV, Memoria ne (ANES) Drug form: l 18:23: INJ, ONCE, Stop date: 09/26/21 12:23:00 CORRUGATED [employer]OX MACHINE OPERATOR lidocaine 2020-09 No Route: IV, Me moria (ANES) Drug form: l 18:23: INJ, ONCE, Stop date: 09/26/21 12:23:00 CORRUGATED [employer]OX MACHINE OPERATOR propofol 2020-09 No Route: IV, Mem oria (ANES) 2- Drug form: l 18:23: INJ, ONCE, Stop date: 09/26/21 12:23:00 CORRUGATED BOX MACHINE OPERATOR ceFAZolin 2020-09 No Route: IV, Me moria (ANES) 2- Drug form: l 18:23: INJ, ONCE, Stop date: 09/26/21 12:23:00 CORRUG[employer]OX MACHINE OPERATOR ondansetron 2020-09 No Route: IV, Memoria (ANES) 2- Drug form: l 18:23: INJ, ONCE, Stop date: 09/26/21 12:23:00 [employer]RUG[employer]OX MACHINE OPERATOR dexamethaso 2020-09 No Route: IV, Memoria ne (ANES) 2- Drug form: l 18:23: INJ, ONCE, Stop date: 09/26/21 12:23:00 CORRUGATED [employer]OX MACHINE OPERATOR lidocaine 2020-09 No Route: IV, Me moria (ANES) 2- Drug form: l 18:23: INJ, ONCE, Stop date: 09/26/21 12:23:00 [employer]RUGATED [employer]OX MACHINE OPERATOR ceFAZolin 2020-09 No Route: IV, Me moria (ANES) 2- Drug form: l 18:23: INJ, ONCE, Stop date: 09/26/21 12:23:00 [employer]UG[employer]OX MACHINE OPERATOR ondansetron 2020-09 No Route: IV, Memoria (ANES) 2- Drug form: l 18:23: INJ, ONCE, Stop date: 09/26/21 12:23:00 [employer]RUG[employer]OX MACHINE OPERATOR dexamethaso 2020-09 No Route: IV, Memoria ne (ANES) 2- Drug form: l 18:23: INJ, ONCE, Stop date: 09/26/21 12:23:00 CORRUGATED [employer]OX MACHINE OPERATOR lidocaine 2020-09 No Route: IV, Me moria (ANES) 2- Drug form: l 18:23: INJ, ONCE, Stop date: 09/26/21 12:23:00 [employer]UG[employer]OX MACHINE OPERATOR propofol 2020-09 No Route: IV, Mem oria (ANES) 2- Drug form: l 18:23: INJ, ONCE, Stop date: 09/26/21 12:23:00 [employer]UG[employer]OX MACHINE OPERATOR propofol 2020-09 No Route: IV, Mem oria (ANES) 2- Drug form: l 18:23: INJ, ONCE, Stop date: 09/26/21 12:23:00 [employer]RUG[employer]OX MACHINE OPERATOR ceFAZolin 2020-09 No Route: IV, Me moria (ANES) 2- Drug form: l 18:23: INJ, ONCE, Stop date: 09/26/21 12:23:00 COR[employer]UG[employer]OX MACHINE OPERATOR ondansetron 2020-09 No Route: IV, Memoria (ANES) 2- Drug form: l 18:23: INJ, ONCE, Stop date: 09/26/21 12:23:00 COR[employer]UG[employer]OX MACHINE OPERATOR dexamethaso 2020-09 No Route: IV, Memoria ne (ANES) 2- Drug form: l 18:23: INJ, ONCE, Stop date: 09/26/21 12:23:00 CORRUGATED [employer]OX MACHINE OPERATOR lidocaine 2020-09 No Route: IV, Me moria (ANES) 2- Drug form: l 18:23: INJ, ONCE, Stop date: 09/26/21 12:23:00 CORRUG[employer]OX MACHINE OPERATOR propofol 2020-09 No Route: IV, Mem oria (ANES) 2- Drug form: l 18:23: INJ, ONCE, Stop date: 09/26/21 12:23:00 CORRUGATED [employer]OX MACHINE OPERATOR ceFAZolin 2020-09 No Route: IV, Me moria (ANES) 2 Drug form: l 18:23: INJ, ONCE, Stop date: 09/26/21 12:23:00 CORRUGATED [employer]OX MACHINE OPERATOR ondansetron 2020-09 No Route: IV, Memoria (ANES) 2- Drug form: l 18:23: INJ, ONCE, Stop date: 09/26/21 12:23:00 CORRUGATED [employer]OX MACHINE OPERATOR dexamethaso 2020-09 No Route: IV, Memoria ne (ANES) Drug form: l 18:23: INJ, ONCE, Stop date: 09/26/21 12:23:00 CORRUGATED BOX MACHINE OPERATOR lidocaine 2020-09 No Route: IV, Me moria (ANES) Drug form: l 18:23: INJ, ONCE, Stop date: 09/26/21 12:23:00 COR[employer]UG[employer]OX MACHINE OPERATOR propofol 2020-09 No Route: IV, Mem oria (ANES) 2- Drug form: l 18:23: INJ, ONCE, Stop date: 09/26/21 12:23:00 [employer]RUG[employer]OX MACHINE OPERATOR ceFAZolin 2020-09 No Route: IV, Me moria (ANES) 2- Drug form: l 18:23: INJ, ONCE, Stop date: 09/26/21 12:23:00 COR[employer]UG[employer]OX MACHINE OPERATOR ondansetron 2020-09 No Route: IV, Memoria (ANES) 2- Drug form: l 18:23: INJ, ONCE, Stop date: 09/26/21 12:23:00 [employer]UG[employer]OX MACHINE OPERATOR dexamethaso 2020-09 No Route: IV, Memoria ne (ANES) 2- Drug form: l 18:23: INJ, ONCE, Stop date: 09/26/21 12:23:00 [employer]RUG[employer]OX MACHINE OPERATOR lidocaine 2020-09 No Route: IV, Me moria (ANES) 2- Drug form: l 18:23: INJ, ONCE, Stop date: 09/26/21 12:23:00 [employer]UG[employer]OX MACHINE OPERATOR propofol 2020-09 No Route: IV, Mem oria (ANES) Drug form: l 18:23: INJ, ONCE, Stop date: 09/26/21 12:23:00 CORRUG[employer]OX MACHINE OPERATOR ceFAZolin 2020-09 No Route: IV, Me moria (ANES) Drug form: l 18:23: INJ, ONCE, Stop date: 09/26/21 12:23:00 [employer]UG[employer]OX MACHINE OPERATOR ondansetron 2020-09 No Route: IV, Memoria (ANES) Drug form: l 18:23: INJ, ONCE, Stop date: 09/26/21 12:23:00 [employer]UGATED [employer]OX MACHINE OPERATOR dexamethaso 2020-09 No Route: IV, Memoria ne (ANES) Drug form: l 18:23: INJ, ONCE, Stop date: 09/26/21 12:23:00 [employer]UG[employer]OX MACHINE OPERATOR lidocaine 2020-09 No Route: IV, Me moria (ANES) Drug form: l 18:23: INJ, ONCE, Stop date: 09/26/21 12:23:00 [employer]UG[employer] MACHINE OPERATOR propofol 2020-09 No Route: IV, Mem oria (ANES) Drug form: l 18:23: INJ, ONCE, Stop date: 09/26/21 12:23:00 [employer]UGATED [employer]OX MACHINE OPERATOR ceFAZolin 2020-09 No Route: IV, Me moria (ANES) Drug form: l 18:23: INJ, ONCE, Stop date: 09/26/21 12:23:00 [employer]UG[employer]OX MACHINE OPERATOR ondansetron 2020-09 No Route: IV, Memoria (ANES) 2 Drug form: l 18:23: INJ, ONCE, Stop date: 09/26/21 12:23:00 [employer]UG[employer]OX MACHINE OPERATOR dexamethaso 2020-09 No Route: IV, Memoria ne (ANES) Drug form: l 18:23: INJ, ONCE, Stop date: 09/26/21 12:23:00 [employer]UGATED [employer]OX MACHINE OPERATOR lidocaine 2020-09 No Route: IV, Me moria (ANES) 2- Drug form: l 18:23: INJ, ONCE, Stop date: 09/26/21 12:23:00 [employer]UG[employer]OX MACHINE OPERATOR propofol 2020-09 No Route: IV, Mem oria (ANES) 2- Drug form: l 18:23: INJ, ONCE, Stop date: 09/26/21 12:23:00 [employer]RUGATED [employer]OX MACHINE OPERATOR ceFAZolin 2020-09 No Route: IV, Me moria (ANES) 2 Drug form: l 18:23: INJ, ONCE, Stop date: 09/26/21 12:23:00 [employer]RUG[employer]OX MACHINE OPERATOR ondansetron 2020-09 No Route: IV, Memoria (ANES) 2 Drug form: l 18:23: INJ, ONCE, Stop date: 09/26/21 12:23:00 [employer]UG[employer]OX MACHINE OPERATOR dexamethaso 2020-09 No Route: IV, Memoria ne (ANES) Drug form: l 18:23: INJ, ONCE, Stop date: 09/26/21 12:23:00 [employer]RUGATED [employer]OX MACHINE OPERATOR lidocaine 2020-09 No Route: IV, Me moria (ANES) Drug form: l 18:23: INJ, ONCE, Stop date: 09/26/21 12:23:00 [employer]UGATED [employer]OX MACHINE OPERATOR propofol 2020-09 No Route: IV, Mem oria (ANES) Drug form: l 18:23: INJ, ONCE, Stop date: 09/26/21 12:23:00 CORRUGATED BOX MACHINE OPERATOR ceFAZolin 2020-09 No Route: IV, Me moria (ANES) 2 Drug form: l 18:23: INJ, ONCE, Stop date: 09/26/21 12:23:00 [employer]UG[employer]OX MACHINE OPERATOR ondansetron 2020-09 No Route: IV, Memoria (ANES) 2 Drug form: l 18:23: INJ, ONCE, Stop date: 09/26/21 12:23:00 [employer]UG[employer]OX MACHINE OPERATOR dexamethaso 2020-09 No Route: IV, Memoria ne (ANES) Drug form: l 18:23: INJ, ONCE, Stop date: 09/26/21 12:23:00 CORRUGATED BOX MACHINE OPERATOR lidocaine 2020-09 No Route: IV, Me moria (ANES) 2- Drug form: l 18:23: INJ, ONCE, [place] 00 Stop date: 09/26/21 12:23:00 CORRUGATED BOX MACHINE OPERATOR propofol 2020-09 No Route: IV, Mem oria (ANES) 2 Drug form: l 18:23: INJ, ONCE, Michael 00 Stop date: 09/26/21 12:23:00 CORRUGATED BOX MACHINE OPERATOR ceFAZolin 2020-09 No Route: IV, Me moria (ANES) 2 Drug form: l 18:23: INJ, ONCE, Stop date: 09/26/21 12:23:00 CORRUGATED BOX MACHINE OPERATOR ondansetron 2020-09 No Route: IV, Memoria (ANES) 2 Drug form: l 18:23: INJ, ONCE, Stop date: 09/26/21 12:23:00 CORRUGATED BOX MACHINE OPERATOR dexamethaso 2020-09 No Route: IV, Memoria ne (ANES) Drug form: l 18:23: INJ, ONCE, Stop date: 09/26/21 12:23:00 [employer]UGATED [employer]OX MACHINE OPERATOR lidocaine 2020-09 No Route: IV, Me moria (ANES) Drug form: l 18:23: INJ, ONCE, Stop date: 09/26/21 12:23:00 [employer]UG[employer]OX MACHINE OPERATOR propofol 2020-09 No Route: IV, Mem oria (ANES) Drug form: l 18:23: INJ, ONCE, Stop date: 09/26/21 12:23:00 [employer]UG[employer]OX MACHINE OPERATOR midazolam 2020-09 No Route: IV, Me moria (ANES) 2- Drug form: l 18:22: SOLN, Michael 00 ONCE, Stop date: 09/26/21 12:22:00 [employer]UG[employer]OX MACHINE OPERATOR fentaNYL 2020-09 No Route: IV, Mem oria (ANES) 2- Drug form: l 18:22: INJ, ONCE, Michael 00 Stop date: 09/26/21 12:22:00 [employer]UG[employer]OX MACHINE OPERATOR midazolam 2020-09 No Route: IV, Me moria (ANES) 2- Drug form: l 18:22: SOLN, Michael 00 ONCE, Stop date: 09/26/21 12:22:00 CORRUGATED BOX MACHINE OPERATOR fentaNYL 2020-09 No Route: IV, Mem oria (ANES) 2-31 Drug form: l 18:22: INJ, ONCE, Michael 00 Stop date: 09/26/21 12:22:00 [employer]UGATED [employer]OX MACHINE OPERATOR midazolam 2020-09 No Route: IV, Me moria (ANES) 2-31 Drug form: l 18:22: SOLN, [place] 00 ONCE, Stop date: 09/26/21 12:22:00 CORRUGATED BOX MACHINE OPERATOR fentaNYL 2020-09 No Route: IV, Mem oria (ANES) 2-31 Drug form: l 18:22: INJ, ONCE, [place] 00 Stop date: 09/26/21 12:22:00 [employer]UGATED BOX MACHINE OPERATOR midazolam 2020-09 No Route: IV, Me moria (ANES) 2-31 Drug form: l 18:22: SOLN, Michael 00 ONCE, Stop date: 09/26/21 12:22:00 CORRUGATED BOX MACHINE OPERATOR fentaNYL 2020-09 No Route: IV, Mem oria (ANES) 2- Drug form: l 18:22: INJ, ONCE, [place] Stop date: 09/26/21 12:22:00 COR[employer]UGATED [employer]OX MACHINE OPERATOR midazolam 2020-09 No Route: IV, Me moria (ANES) 2- Drug form: l 18:22: SOLN, [place] 00 ONCE, Stop date: 09/26/21 12:22:00 CORRUGATED BOX MACHINE OPERATOR fentaNYL 2020-09 No Route: IV, Mem oria (ANES) 2-31 Drug form: l 18:22: INJ, ONCE, [place] 00 Stop date: 09/26/21 12:22:00 [employer]UGATED [employer]OX MACHINE OPERATOR midazolam 2020-09 No Route: IV, Me moria (ANES) 2-31 Drug form: l 18:22: SOLN, [place] 00 ONCE, Stop date: 09/26/21 12:22:00 CORRUGATED BOX MACHINE OPERATOR fentaNYL 2020-09 No Route: IV, Mem oria (ANES) 2-31 Drug form: l 18:22: INJ, ONCE, Michael 00 Stop date: 09/26/21 12:22:00 [employer]UGATED [employer]OX MACHINE OPERATOR midazolam 2020-09 No Route: IV, Me moria (ANES) 2-31 Drug form: l 18:22: SOLN, Michael 00 ONCE, Stop date: 09/26/21 12:22:00 CORRUGATED BOX MACHINE OPERATOR fentaNYL 2020-09 No Route: IV, Mem oria (ANES) 2-31 Drug form: l 18:22: INJ, ONCE, [place] 00 Stop date: 09/26/21 12:22:00 [employer]UGATED [employer]OX MACHINE OPERATOR midazolam 2020-09 No Route: IV, Me moria (ANES) 2-31 Drug form: l 18:22: SOLN, Michael 00 ONCE, Stop date: 09/26/21 12:22:00 COR[employer]UGATED [employer]OX MACHINE OPERATOR fentaNYL 2020-09 No Route: IV, Mem oria (ANES) 2- Drug form: l 18:22: INJ, ONCE, [place] 00 Stop date: 09/26/21 12:22:00 COR[employer]UGATED [employer]OX MACHINE OPERATOR midazolam 2020-09 No Route: IV, Me moria (ANES) 2- Drug form: l 18:22: SOLN, Michael 00 ONCE, Stop date: 09/26/21 12:22:00 CORRUGATED BOX MACHINE OPERATOR fentaNYL 2020-09 No Route: IV, Mem oria (ANES) 2- Drug form: l 18:22: INJ, ONCE, [place] 00 Stop date: 09/26/21 12:22:00 [employer]UGATED [employer]OX MACHINE OPERATOR midazolam 2020-09 No Route: IV, Me moria (ANES) 2- Drug form: l 18:22: SOLN, [place] 00 ONCE, Stop date: 09/26/21 12:22:00 CORRUGATED BOX MACHINE OPERATOR fentaNYL 2020-09 No Route: IV, Mem oria (ANES) 2- Drug form: l 18:22: INJ, ONCE, [place] Stop date: 09/26/21 12:22:00 CORRUGATED BOX MACHINE OPERATOR midazolam 2020-09 No Route: IV, Me moria (ANES) 2-31 Drug form: l 18:22: SOLN, [place] 00 ONCE, Stop date: 09/26/21 12:22:00 CORRUGATED BOX MACHINE OPERATOR fentaNYL 2020-09 No Route: IV, Mem oria (ANES) 2-31 Drug form: l 18:22: INJ, ONCE, Michael 00 Stop date: 09/26/21 12:22:00 CORRUGATED BOX MACHINE OPERATOR midazolam 2020-09 No Route: IV, Me moria (ANES) 2-31 Drug form: l 18:22: SOLN, Michael 00 ONCE, Stop date: 09/26/21 12:22:00 CORRUGATED BOX MACHINE OPERATOR fentaNYL 2020-09 No Route: IV, Mem oria (ANES) 2-31 Drug form: l 18:22: INJ, ONCE, Michael 00 Stop date: 09/26/21 12:22:00 CORRUGATED BOX MACHINE OPERATOR Lactated 2020-09 No Route: IV, Mem oria Ringers 2-31 Total l Injection 17:40: Volume: Roz nn IV (ANES) 00 1,000, 1000 mL Start date: 09/26/21 11:40:00 CORRUGATED BOX MACHINE OPERATOR, Stop date: 09/26/21 12:40:00 CORRUGATED BOX MACHINE OPERATOR Lactated 2020-09 No Route: IV, Mem oria Ringers 2-31 Total l Injection 17:40: Volume: Roz nn IV (ANES) 00 1,000, 1000 mL Start date: 09/26/21 11:40:00 CORRUGATED BOX MACHINE OPERATOR, Stop date: 09/26/21 12:40:00 CORRUGATED BOX MACHINE OPERATOR Lactated 2020-09 No Route: IV, Mem oria Ringers 2-31 Total l Injection 17:40: Volume: Roz nn IV (ANES) 00 1,000, 1000 mL Start date: 09/26/21 11:40:00 CORRUGATED BOX MACHINE OPERATOR, Stop date: 09/26/21 12:40:00 CORRUGATED BOX MACHINE OPERATOR Lactated 2020-09 No Route: IV, Mem oria Ringers 2-31 Total l Injection 17:40: Volume: Roz nn IV (ANES) 00 1,000, 1000 mL Start date: 09/26/21 11:40:00 CORRUGATED BOX MACHINE OPERATOR, Stop date: 09/26/21 12:40:00 CORRUGATED BOX MACHINE OPERATOR Lactated 2020-09 No Route: IV, Mem oria Ringers 2-31 Total l Injection 17:40: Volume: Roz nn IV (ANES) 00 1,000, 1000 mL Start date: 09/26/21 11:40:00 CORRUGATED BOX MACHINE OPERATOR, Stop date: 09/26/21 12:40:00 CORRUGATED BOX MACHINE OPERATOR Lactated 2020-09 No Route: IV, Mem oria Ringers 2-31 Total l Injection 17:40: Volume: Roz nn IV (ANES) 00 1,000, 1000 mL Start date: 09/26/21 11:40:00 CORRUGATED BOX MACHINE OPERATOR, Stop date: 09/26/21 12:40:00 CORRUGATED BOX MACHINE OPERATOR Lactated 2020-09 No Route: IV, Mem oria Ringers 2-31 Total l Injection 17:40: Volume: Roz nn IV (ANES) 00 1,000, 1000 mL Start date: 09/26/21 11:40:00 CORRUGATED BOX MACHINE OPERATOR, Stop date: 09/26/21 12:40:00 CORRUGATED BOX MACHINE OPERATOR Lactated 2020-09 No Route: IV, Mem oria Ringers 2-31 Total l Injection 17:40: Volume: Roz nn IV (ANES) 00 1,000, 1000 mL Start date: 09/26/21 11:40:00 CORRUGATED BOX MACHINE OPERATOR, Stop date: 09/26/21 12:40:00 CORRUGATED BOX MACHINE OPERATOR Lactated 2020-09 No Route: IV, Mem oria Ringers 2-31 Total l Injection 17:40: Volume: Roz nn IV (ANES) 00 1,000, 1000 mL Start date: 09/26/21 11:40:00 CORRUGATED BOX MACHINE OPERATOR, Stop date: 09/26/21 12:40:00 CORRUGATED BOX MACHINE OPERATOR Lactated 2020-09 No Route: IV, Mem oria Ringers 2-31 Total l Injection 17:40: Volume: Roz nn IV (ANES) 00 1,000, 1000 mL Start date: 09/26/21 11:40:00 CORRUGATED BOX MACHINE OPERATOR, Stop date: 09/26/21 12:40:00 CORRUGATED BOX MACHINE OPERATOR Lactated 2020-09 No Route: IV, Mem oria Ringers 2-31 Total l Injection 17:40: Volume: Roz nn IV (ANES) 00 1,000, 1000 mL Start date: 09/26/21 11:40:00 CORRUGATED BOX MACHINE OPERATOR, Stop date: 09/26/21 12:40:00 CORRUGATED BOX MACHINE OPERATOR Lactated 2020-09 No Route: IV, Mem oria Ringers 2-31 Total l Injection 17:40: Volume: Roz nn IV (ANES) 00 1,000, 1000 mL Start date: 09/26/21 11:40:00 CORRUGATED BOX MACHINE OPERATOR, Stop date: 09/26/21 12:40:00 CORRUGATED BOX MACHINE OPERATOR Calcium 2020-09 No 1,000 mL, Memor ia Chloride 2-31 Rate: 75 l 0.0014 15:58: ml/hr, Michael MEQ/ML / 00 Infuse Potassium over: 13.3 Chloride hr, Route: 0.004 IV, Dosing MEQ/ML / Weight Sodium 99.545 kg, Chloride Total 0.103 Volume: MEQ/ML / 1,000, Sodium Start Lactate date: 0.028 09/26/21 MEQ/ML 9:58:00 Injectable [employer] MACHINE OPERATOR, Solution Duration: 30 day, Stop date: 10/26/21 9:57:00 [employer]UG[employer] MACHINE OPERATOR, BSA: 2.22 m2, 0 Calcium 2020-09 No 1,000 mL, Memor ia Chloride 2-31 Rate: 75 l 0.0014 15:58: ml/hr, [place] MEQ/ML / 00 Infuse Potassium over: 13.3 Chloride hr, Route: 0.004 IV, Dosing MEQ/ML / Weight Sodium 99.545 kg, Chloride Total 0.103 Volume: MEQ/ML / 1,000, Sodium Start Lactate date: 0.028 21 MEQ/ML 9:58:00 Injectable [employer] MACHINE OPERATOR, Solution Duration: 30 day, Stop date: 10/26/21 9:57:00 [employer]RUGATED [employer]OX MACHINE OPERATOR, BSA: 2.22 m2, 0 Calcium 2020-09 No 1,000 mL, Memor ia Chloride 2-31 Rate: 75 l 0.0014 15:58: ml/hr, Michael MEQ/ML / 00 Infuse Potassium over: 13.3 Chloride hr, Route: 0.004 IV, Dosing MEQ/ML / Weight Sodium 99.545 kg, Chloride Total 0.103 Volume: MEQ/ML / 1,000, Sodium Start Lactate date: 0.028 21 MEQ/ML 9:58:00 Injectable [employer] MACHINE OPERATOR, Solution Duration: 30 day, Stop date: 10/26/21 9:57:00 [employer]RUGATED [employer]OX MACHINE OPERATOR, BSA: 2.22 m2, 0 Calcium 2020-09 No 1,000 mL, Memor ia Chloride 2-31 Rate: 75 l 0.0014 15:58: ml/hr, [place] MEQ/ML / 00 Infuse Potassium over: 13.3 Chloride hr, Route: 0.004 IV, Dosing MEQ/ML / Weight Sodium 99.545 kg, Chloride Total 0.103 Volume: MEQ/ML / 1,000, Sodium Start Lactate date: 0.028 21 MEQ/ML 9:58:00 Injectable [employer] MACHINE OPERATOR, Solution Duration: 30 day, Stop date: 10/26/21 9:57:00 [employer]RUGATED [employer]OX MACHINE OPERATOR, BSA: 2.22 m2, 0 Calcium 2020-09 No 1,000 mL, Memor ia Chloride 2-31 Rate: 75 l 0.0014 15:58: ml/hr, [place] MEQ/ML / 00 Infuse Potassium over: 13.3 Chloride hr, Route: 0.004 IV, Dosing MEQ/ML / Weight Sodium 99.545 kg, Chloride Total 0.103 Volume: MEQ/ML / 1,000, Sodium Start Lactate date: 0.028 09/26/21 MEQ/ML 9:58:00 Injectable [employer] MACHINE OPERATOR, Solution Duration: 30 day, Stop date: 10/26/21 9:57:00 [employer]RUGATED [employer]OX MACHINE OPERATOR, BSA: 2.22 m2, 0 Calcium 2020- No 1,000 mL, Memor ia Chloride 2-31 Rate: 75 l 0.0014 15:58: ml/hr, [place] MEQ/ML / 00 Infuse Potassium over: 13.3 Chloride hr, Route: 0.004 IV, Dosing MEQ/ML / Weight Sodium 99.545 kg, Chloride Total 0.103 Volume: MEQ/ML / 1,000, Sodium Start Lactate date: 0.028 09/26/21 MEQ/ML 9:58:00 Injectable [employer] MACHINE OPERATOR, Solution Duration: 30 day, Stop date: 10/26/21 9:57:00 [employer]RUGATED [employer]OX MACHINE OPERATOR, BSA: 2.22 m2, 0 Calcium 2020- No 1,000 mL, Memor ia Chloride 2-31 Rate: 75 l 0.0014 15:58: ml/hr, [place] MEQ/ML / 00 Infuse Potassium over: 13.3 Chloride hr, Route: 0.004 IV, Dosing MEQ/ML / Weight Sodium 99.545 kg, Chloride Total 0.103 Volume: MEQ/ML / 1,000, Sodium Start Lactate date: 0.028 09/26/21 MEQ/ML 9:58:00 Injectable [employer] MACHINE OPERATOR, Solution Duration: 30 day, Stop date: 10/26/21 9:57:00 [employer]RUGATED [employer] MACHINE OPERATOR, BSA: 2.22 m2, 0 Calcium 2020-1 No 1,000 mL, Memor ia Chloride 2-31 Rate: 75 l 0.0014 15:58: ml/hr, Michael MEQ/ML / 00 Infuse Potassium over: 13.3 Chloride hr, Route: 0.004 IV, Dosing MEQ/ML / Weight Sodium 99.545 kg, Chloride Total 0.103 Volume: MEQ/ML / 1,000, Sodium Start Lactate date: 0.028 09/26/21 MEQ/ML 9:58:00 Injectable [employer]UG[employer]OX MACHINE OPERATOR, Solution Duration: 30 day, Stop date: 10/26/21 9:57:00 CORRUGATED BOX MACHINE OPERATOR, BSA: 2.22 m2, 0 Calcium 2020-09 No 1,000 mL, Memor ia Chloride 2-31 Rate: 75 l 0.0014 15:58: ml/hr, Michael MEQ/ML / 00 Infuse Potassium over: 13.3 Chloride hr, Route: 0.004 IV, Dosing MEQ/ML / Weight Sodium 99.545 kg, Chloride Total 0.103 Volume: MEQ/ML / 1,000, Sodium Start Lactate date: 0.028 21 MEQ/ML 9:58:00 Injectable CORRUGATED BOX MACHINE OPERATOR, Solution Duration: 30 day, Stop date: 10/26/21 9:57:00 CORRUGATED BOX MACHINE OPERATOR, BSA: 2.22 m2, 0 Calcium 2020-09 No 1,000 mL, Memor ia Chloride 2-31 Rate: 75 l 0.0014 15:58: ml/hr, Michael MEQ/ML / 00 Infuse Potassium over: 13.3 Chloride hr, Route: 0.004 IV, Dosing MEQ/ML / Weight Sodium 99.545 kg, Chloride Total 0.103 Volume: MEQ/ML / 1,000, Sodium Start Lactate date: 0.028 21 MEQ/ML 9:58:00 Injectable CORRUGATED BOX MACHINE OPERATOR, Solution Duration: 30 day, Stop date: 10/26/21 9:57:00 CORRUGATED BOX MACHINE OPERATOR, BSA: 2.22 m2, 0 Calcium 2020-09 No 1,000 mL, Memor ia Chloride 2-31 Rate: 75 l 0.0014 15:58: ml/hr, [place] MEQ/ML / 00 Infuse Potassium over: 13.3 Chloride hr, Route: 0.004 IV, Dosing MEQ/ML / Weight Sodium 99.545 kg, Chloride Total 0.103 Volume: MEQ/ML / 1,000, Sodium Start Lactate date: 0.028 21 MEQ/ML 9:58:00 Injectable CORRUGATED BOX MACHINE OPERATOR, Solution Duration: 30 day, Stop date: 10/26/21 9:57:00 CORRUGATED BOX MACHINE OPERATOR, BSA: 2.22 m2, 0 Calcium 2020-09 No 1,000 mL, Memor ia Chloride 2-31 Rate: 75 l 0.0014 15:58: ml/hr, Michael MEQ/ML / 00 Infuse Potassium over: 13.3 Chloride hr, Route: 0.004 IV, Dosing MEQ/ML / Weight Sodium 99.545 kg, Chloride Total 0.103 Volume: MEQ/ML / 1,000, Sodium Start Lactate date: 0.028 09/26/21 MEQ/ML 9:58:00 Injectable CORRUGATED BOX MACHINE OPERATOR, Solution Duration: 30 day, Stop date: 10/26/21 9:57:00 CORRUGATED BOX MACHINE OPERATOR, BSA: 2.22 m2, 0 folic acid 2020-09 [...] 2-29 cap, PO, l capsule 15:14: Daily [place] 00 tamsulosin 2020-09 Yes 0.4 mg = [...] a 1-15 PO, Daily, l 20:18: 0 [place] 00 Refill(s) levothyroxi Yes 75 Memori a ne 1-15 microgram, l 20:18: PO, Daily, Michael 00 0 Refill(s) finasteride Yes 5 mg = 1 Me moria 1-15 tab, PO, l 20:18: Daily, # [place] 00 30 tab, 0 Refill(s) lovastatin Yes 20 mg, PO, M emoria 1-15 0 l 20:18: Refill(s) [place] 00 clopidogrel Yes 75 mg = 1 M emoria 75 mg oral 1-15 tab, PO, l tablet 20:18: Daily, # [place] 00 30 tab, 0 Refill(s) losartan 0 Yes 100 mg, Memori a 1-15 PO, Daily, l 20:18: 0 [place] 00 Refill(s) levothyroxi Yes 75 Memori a [...] a 1-15 PO, Daily, l 20:18: 0 [place] 00 Refill(s) levothyroxi Yes 75 Memori a ne 1-15 microgram, l 20:18: PO, Daily, [place] 00 0 Refill(s) finasteride Yes 5 mg = 1 Me moria 1-15 tab, PO, l 20:18: Daily, # [place] 00 30 tab, 0 Refill(s) lovastatin Yes 20 mg, PO, M emoria 1-15 0 l 20:18: Refill(s) [place] 00 clopidogrel Yes 75 mg = 1 M emoria 75 mg oral 1-15 tab, PO, l tablet 20:18: Daily, # [place] 00 30 tab, 0 Refill(s) losartan Yes 100 mg, Memori a 1-15 PO, Daily, l 20:18: 0 [place] 00 Refill(s) levothyroxi Yes 75 Memori a ne 1-15 microgram, l 20:18: PO, Daily, 00 0 Refill(s) finasteride Yes 5 mg = 1 Me moria 1-15 tab, PO, l 20:18: Daily, # [place] 00 30 tab, 0 Refill(s) lovastatin Yes [...] ne 1-15 microgram, l 20:18: PO, Daily, [place] 00 0 Refill(s) finasteride Yes 5 mg = 1 Me moria 1-15 tab, PO, l 20:18: Daily, # [place] 00 30 tab, 0 Refill(s) lovastatin 0 Yes 20 mg, PO, M emoria 1-15 0 l 20:18: Refill(s) [place] 00 clopidogrel Yes 75 mg = 1 M emoria 75 mg oral 1-15 tab, PO, l tablet 20:18: Daily, # Michael 00 30 tab, 0 Refill(s) losartan 2021-0 Yes 100 mg, Memori a 1-15 PO, Daily, l 20:18: 0 [place] 00 Refill(s) levothyroxi Yes 75 Memori a ne 1-15 microgram, l 20:18: PO, Daily, 0 Refill(s) finasteride Yes 5 mg = 1 Me moria 1-15 tab, PO, l 20:18: Daily, # [place] 00 30 tab, 0 Refill(s) lovastatin Yes 20 mg, PO, M emoria 1-15 0 l 20:18: Refill(s) Michael 00 clopidogrel Yes 75 mg = 1 M emoria 75 mg oral 1-15 tab, PO, l tablet 20:18: Daily, # [place] 00 30 tab, 0 Refill(s) losartan Yes 100 mg, Memori a 1-15 PO, Daily, l 20:18: 0 Refill(s) levothyroxi Yes 75 Memori a ne 1-15 microgram, l 20:18: PO, Daily, 0 Refill(s) finasteride Yes 5 mg = 1 Me moria 1-15 tab, PO, l 20:18: Daily, # [place] 00 30 tab, 0 Refill(s) lovastatin 0 [...] M emoria 1-15 0 l 20:18: Refill(s) [place] 00 clopidogrel Yes 75 mg = 1 [...] - 00 Accu-Chek Accu-Chek 2018- No Accu-Chek Atnia Plus Tania Plus 0-03 Tania Plus - - 00:00: - 00 Accu-Chek Accu-Chek 2018- No Accu-Chek Tania Plus Tania Plus 0-03 Tnaia Plus - - 00:00: - 00 Accu-Chek [...] Plus - - 00:00: 00 Accu-Chek Accu-Chek 2018-1 No Accu-Chek Tania [...] Yes Regina 1 capsule Common HCl HCl [facility] [facility] metFORMIN metFORMIN No metFORMIN [...] 75 MCG 75 MCG Clopidogrel Clopidogrel No Clopidogre Bisulfate Bisulfate l 75 MG 75 MG Bisulfate 75 MG metFORMIN metFORMIN No metFORMIN HCl 500 MG HCl 500 MG HCl 500 MG Losartan Losartan No Losartan Potassium Potassium Potassium 100 MG 100 MG 100 MG Tamsulosin Tamsulosin No QD Tamsulosin HCl 0.4 MG HCl 0.4 MG HCl 0.4 MG Baby Baby No 1{table QD Baby Aspirin 81 Aspirin 81 t} Aspirin 81 mg mg mg Folic Acid Folic Acid No Folic Acid 1 MG 1 MG 1 MG Gabapentin Gabapentin No 1{capsu QD Gabapentin 300 MG 300 MG le} 300 MG Losartan Losartan No Losartan Potassium Potassium [...] MG HCl 0.4 MG HCl 0.4 MG Folic Acid Folic Acid No Folic Acid 1 MG 1 MG 1 MG Gabapentin Gabapentin No 1{capsu QD Gabapentin 300 MG 300 MG le} 300 MG Losartan Losartan No Losartan Potassium Potassium [...] MG HCl 0.4 MG HCl 0.4 MG Folic Acid Folic Acid No Folic Acid 1 MG 1 MG 1 MG acetaminoph acetaminoph No acetaminop [place] 300 [...] Time Observation Value Comments Source Body height 2023-06-10 15:45:00 176.5 cm General acute hospital Body weight 2023-06-10 15:45:00 86.637 kg General acute hospital BMI 2023-06-10 15:45:00 27.80 kg/m2 General acute hospital height 2022-12-16 10:00:00 69.5 [in_i] [facility] weight 2022-12-16 10:00:00 206 [lb_av] [facility] temperature 2022-12-16 10:00:00 98.0 [degF] [facility] bmi 2022-12-16 10:00:00 29.98 kg/m2 [facility] oximetry 2022-12-16 10:00:00 97 % [facility] respiratory rate 2022-12-16 10:00:00 16 /min Comm on [facility] blood pressure 2022-12-16 10:00:00 134 mm[Hg] Common [facility] - systolic [facility] blood pressure 2022-12-16 10:00:00 80 mm[Hg] Common [facility] - diastolic [facility] height 2022-09-17 11:40:00 69.5 [in_i] [facility] weight 2022-09-17 11:40:00 208 [lb_av] [facility] temperature 2022-09-17 11:40:00 97.6 [degF] [facility] bmi 2022-09-17 11:40:00 30.27 kg/m2 [facility] oximetry 2022-09-17 11:40:00 97 % [facility] respiratory rate 2022-09-17 11:40:00 16 /min Comm on [facility] blood pressure 2022-09-17 11:40:00 132 mm[Hg] Common [facility] - systolic [facility] blood pressure 2022-09-17 11:40:00 78 mm[Hg] [facility] - diastolic [facility] Systolic blood 2022-08-13 17:39:00 151 mm[Hg] Univer sity of pressure [facility] Diastolic blood 2022-08-13 17:39:00 94 mm[Hg] Unive rsity of pressure [facility] Heart rate 2022-08-13 17:39:00 82 /min General acute hospital Body temperature 2022-08-13 17:39:00 36.33 Annmarie [facility] 2022-08-13 17:39:00 18 /min [facility] Oxygen saturation in 2022-08-13 17:39:00 96 /min [facility] Arterial blood by [facility] Pulse oximetry Branch Body weight 2022-08-13 09:43:00 89.994 kg General acute hospital BMI 2022-08-13 09:43:00 29.30 kg/m2 General acute hospital Body height 2022-08-13 01:42:00 175.3 cm General acute hospital height 2022-06-19 11:00:00 69.5 [in_i] [facility] weight 2022-06-19 11:00:00 212 [lb_av] Common [facility] temperature 2022-06-19 11:00:00 98.6 [degF] Common [facility] bmi 2022-06-19 11:00:00 30.85 kg/m2 Common [facility] oximetry 2022-06-19 11:00:00 96 % Common [facility] respiratory rate 2022-06-19 11:00:00 17 /min Comm on [facility] blood pressure 2022-06-19 11:00:00 134 mm[Hg] Common [facility] - systolic [facility] blood pressure 2022-06-19 11:00:00 80 mm[Hg] Common [facility] - diastolic [facility] height 2022-06-19 10:40:00 69.5 [in_i] Common [facility] weight 2022-06-19 10:40:00 212 [lb_av] Common [facility] temperature 2022-06-19 10:40:00 98.6 [degF] Common [facility] bmi 2022-06-19 10:40:00 30.85 kg/m2 [facility] oximetry 2022-06-19 10:40:00 96 % [facility] respiratory rate 2022-06-19 10:40:00 17 /min Comm on [facility] blood pressure 2022-06-19 10:40:00 134 mm[Hg] Common [facility] - systolic [facility] blood pressure 2022-06-19 10:40:00 80 mm[Hg] Common [facility] - diastolic [facility] height 2022-06-15 11:20:00 69.5 [in_i] Common [facility] weight 2022-06-15 11:20:00 212 [lb_av] Common [facility] temperature 2022-06-15 11:20:00 98.2 [degF] Common [facility] bmi 2022-06-15 11:20:00 30.85 kg/m2 Common [facility] oximetry 2022-06-15 11:20:00 97 % Common [facility] respiratory rate 2022-06-15 11:20:00 16 /min Comm on [facility] blood pressure 2022-06-15 11:20:00 134 mm[Hg] [facility] - systolic [facility] blood pressure 2022-06-15 11:20:00 76 mm[Hg] Common [facility] - diastolic [facility] Body height 2022-05-19 13:09:00 175.3 cm General acute hospital Body weight 2022-05-19 13:09:00 95.255 kg General acute hospital BMI 2022-05-19 13:09:00 31.01 kg/m2 General acute hospital height 2022-02-04 09:20:00 69.5 [in_i] Common [facility] weight 2022-02-04 09:20:00 211.8 [lb_av] [facility] temperature 2022-02-04 09:20:00 97.5 [degF] Common [facility] bmi 2022-02-04 09:20:00 30.83 kg/m2 [facility] oximetry 2022-02-04 09:20:00 95 % Common [facility] respiratory rate 2022-02-04 09:20:00 16 /min Comm on [facility] blood pressure 2022-02-04 09:20:00 134 mm[Hg] Common [facility] - systolic [facility] blood pressure 2022-02-04 09:20:00 78 mm[Hg] Common [facility] - diastolic [facility] height 2022-01-05 14:40:00 69.5 [in_i] Common [facility] weight 2022-01-05 14:40:00 210.4 [lb_av] Common [facility] temperature 2022-01-05 14:40:00 98.1 [degF] Common [facility] bmi 2022-01-05 14:40:00 30.62 kg/m2 Common [facility] oximetry 2022-01-05 14:40:00 97 % Common [facility] respiratory rate 2022-01-05 14:40:00 16 /min Comm on [facility] blood pressure 2022-01-05 14:40:00 138 mm[Hg] Common [facility] - systolic [facility] blood pressure 2022-01-05 14:40:00 74 mm[Hg] Common [facility] - diastolic [facility] height 2021-12-22 08:40:00 69.5 [in_i] Common [facility] weight 2021-12-22 08:40:00 216.8 [lb_av] [facility] temperature 2021-12-22 08:40:00 97.5 [degF] Common [facility] bmi 2021-12-22 08:40:00 31.55 kg/m2 [facility] oximetry 2021-12-22 08:40:00 97 % [facility] respiratory rate 2021-12-22 08:40:00 16 /min Comm on [facility] blood pressure 2021-12-22 08:40:00 136 mm[Hg] Common [facility] - systolic [facility] blood pressure 2021-12-22 08:40:00 78 mm[Hg] Common [facility] - diastolic [facility] height 2021-08-26 16:00:00 69.5 [in_i] Common [facility] weight 2021-08-26 16:00:00 213.2 [lb_av] [facility] temperature 2021-08-26 16:00:00 98.3 [degF] [facility] bmi 2021-08-26 16:00:00 31.03 kg/m2 Common [facility] oximetry 2021-08-26 16:00:00 97 % [facility] respiratory rate 2021-08-26 16:00:00 16 /min Comm on [facility] blood pressure 2021-08-26 16:00:00 130 mm[Hg] Common [facility] - systolic [facility] blood pressure 2021-08-26 16:00:00 72 mm[Hg] Common [facility] - diastolic [facility] height 2021-06-24 08:00:00 69.5 [in_i] Common [facility] weight 2021-06-24 08:00:00 221.8 [lb_av] [facility] temperature 2021-06-24 08:00:00 99.0 [degF] Common [facility] bmi 2021-06-24 08:00:00 32.28 kg/m2 [facility] oximetry 2021-06-24 08:00:00 97 % [facility] respiratory rate 2021-06-24 08:00:00 16 /min Comm on [facility] blood pressure 2021-06-24 08:00:00 138 mm[Hg] Common [facility] - systolic [facility] blood pressure 2021-06-24 08:00:00 88 mm[Hg] Common [facility] - diastolic [facility] height 2021-03-25 08:40:00 69.5 [in_i] Common [facility] weight 2021-03-25 08:40:00 226.8 [lb_av] [facility] temperature 2021-03-25 08:40:00 97.8 [degF] [facility] bmi 2021-03-25 08:40:00 33.01 kg/m2 [facility] oximetry 2021-03-25 08:40:00 98 % Common [facility] respiratory rate 2021-03-25 08:40:00 16 /min Comm on [facility] blood pressure 2021-03-25 08:40:00 136 mm[Hg] [facility] - systolic [facility] blood pressure 2021-03-25 08:40:00 76 mm[Hg] [facility] - diastolic [facility] Systolic (mm Hg) 2023-03-26 14:22:00 Brodie rial Michael Diastolic (mm Hg) 2023-03-26 14:22:00 Mem orial Michael Heart Rate 2023-03-26 14:22:00 [facility] Height 2023-03-26 14:22:00 5 [ft_i] [facility] Weight 2023-03-26 14:22:00 [facility] [place] BMI Calculated 2023-03-26 14:22:00 Memori al [place] Systolic (mm Hg) 2023-02-16 15:48:00 Brodie rial [place] Diastolic (mm Hg) 2023-02-16 15:48:00 Mem orial Michael Heart Rate 2023-02-16 15:48:00 [facility] Height 2023-02-16 15:48:00 5 [ft_i] [facility] Weight 2023-02-16 15:48:00 [facility] [place] BMI Calculated 2023-02-16 15:48:00 Memori al [place] Height 2023-02-12 13:17:00 5 [ft_i] [facility] [place] Weight 2023-02-12 13:17:00 [facility] [place] BMI Calculated 2023-02-12 13:17:00 Memori al [place] Systolic (mm Hg) 2023-02-12 13:17:00 Brodie rial [place] Diastolic (mm Hg) 2023-02-12 13:17:00 Mem orial Michael Heart Rate 2023-02-12 13:17:00 [facility] Michael Heart Rate 2023-01-12 20:10:00 [facility] Height 2023-01-12 20:10:00 5 [ft_i] [facility] Weight 2023-01-12 20:10:00 [facility] [place] BMI Calculated 2023-01-12 20:10:00 Memori al [place] Systolic (mm Hg) 2023-01-12 20:10:00 Brodie rial [place] Diastolic (mm Hg) 2023-01-12 20:10:00 Mem orial Michael Respitory Rate 2021-09-26 19:20:00 Memori al Michael Systolic (mm Hg) 2021-09-26 19:20:00 Brodie rial Mihcael Diastolic (mm Hg) 2021-09-26 19:20:00 Mem orial Michael Respitory Rate 2021-09-26 19:05:00 Memori al [place] Systolic (mm Hg) 2021-09-26 19:05:00 Brodie rial [place] Diastolic (mm Hg) 2021-09-26 19:05:00 Mem orial [place] Respitory Rate 2021-09-26 18:50:00 Memori al Michael Systolic (mm Hg) 2021-09-26 18:50:00 Brodie rial Michael Diastolic (mm Hg) 2021-09-26 18:50:00 Mem orial [place] Weight 2021-09-26 16:27:00 [facility] [place] BMI Calculated 2021-09-26 16:27:00 Memori al Michael Heart Rate 2021-09-26 15:54:00 [facility] [place] Height 2021-09-24 19:39:00 175.26 cm [facility] [place] Height 2021-09-24 15:25:00 175.26 cm [facility] [place] Weight 2021-09-24 15:25:00 [facility] [place] BMI Calculated 2021-09-24 15:25:00 Memori al [place] Procedures Procedure Date / Time Performing Clinician Source Performed ASSIGNMENT OF BENEFITS 2023-06-10 15:41:57 Doctor Unassigned, No [facility] Medical Branch AUTHORIZATION FOR 2023-01-27 05:01:00 Doctor Unassigned, No [facility] RELEASE OF [facility] Medical Branch NOTICE OF PRIVACY 2023-01-07 13:09:51 Doctor Unassigned, No [facility] Medical [place] CONSENT/REFUSAL FOR 2023-01-07 13:09:26 Doctor Unassigned, No [facility] DIAGNOSIS AND TREATMENT [facility] Medical Branch ASSIGNMENT OF BENEFITS 2023-01-07 13:08:59 Doctor Unassigned, No [facility] TRANSTHORACIC ECHO (TTE) 2022-08-13 20:02:00 Andre David [facility] COMPLETE W/ CONTRAST Medical [facility] POCT GLUCOSE (AUTOMATED) 2022-08-13 17:40:00 Alexandre Montemayor [facility] POCT GLUCOSE (AUTOMATED) 2022-08-13 13:32:00 Alexandre Montemayor [facility] MAGNESIUM 2022-08-13 09:50:00 Alexandre Montemayor [facility] BASIC METABOLIC PANEL 2022-08-13 09:50:00 Alexandre Montemayor [facility] (NA, K, CL, CO2, Medical Branch GLUCOSE, BUN, CREATININE, CA) CBC WITH DIFF 2022-08-13 09:50:00 Alexandre Montemayor [facility] PHOSPHORUS 2022-08-13 03:53:00 Enrico [facility] TROPONIN I 2022-08-13 02:32:00 Enrico [facility] POCT GLUCOSE (AUTOMATED) 2022-08-13 01:22:00 Alexandre Montemayor [facility] CT ANGIOGRAM CHEST 2022-08-12 19:53:05 Leonora Ruby [facility] CT ANGIOGRAM 2022-08-12 19:53:05 [facility] ABDOMEN/PELVIS Medical [place] HB ECG ROUTINE & RHYTHM 2022-08-12 19:09:59 Leonora Ruby [facility] TROPONIN I 2022-08-12 19:08:00 [facility] & RHYTHM 2022-08-12 18:01:56 Leonora Ruby [facility] LIPASE 2022-08-12 17:05:00 [facility] I 2022-08-12 17:05:00 [facility] COMP. METABOLIC PANEL 2022-08-12 17:05:00 Leonora Ruby [facility] ([id number]) Medical Branch CBC WITH DIFF 2022-08-12 17:05:00 [facility] GLYCOSYLATED HEMOGLOBIN 2022-08-12 17:05:00 Andre David [facility] (A1C) [facility] PROTHROMBIN TIME / INR 2022-08-12 17:05:00 Leonora Ruby [facility] URINALYSIS 2022-08-12 17:05:00 Leonora Ruby [facility] N-TERMINAL PRO-BNP 2022-08-12 17:05:00 Leonora Ruby [facility] acute [facility] HB ECG ROUTINE & RHYTHM 2022-08-12 16:51:46 Leonora Ruby [facility] CONSENT/REFUSAL FOR 2022-08-12 16:16:12 Doctor Unassigned, No [facility] DIAGNOSIS AND TREATMENT Name [facility] REFERRAL- 2022-06-16 05:01:00 Doctor Unassigned, No [facility] REQUEST/RESPONSE Name [facility] CT, urogram 2018-07-07 00:00:00 [facility] 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 [id number] Common 09:28:02 Maira [id number] [facility] 2021-10-22 Outpatient Oliveira, MELANI [facility] [id number] Common 14:27:24 Maira [id number] [facility] 2021-10-22 Outpatient Oliveira, MELANI [facility] [id number] Common 14:18:00 Maira 08619 [facility] 2021-10-22 Outpatient Carroll, ST[facility]IN[facility] [id number] Common 13:35:45 Regina 48717 [facility] 2021-10-22 Outpatient [place], STLMLC STLMLC [id number] Common 12:41:58 Regina 02778 [facility] 2021-10-22 Outpatient [place], STLMLC STLMLC [id number] Common 12:40:52 Regina [id number] [facility] 2021-10-22 Outpatient [place], STLMLC STLMLC [id number] Common 12:12:33 Regina [id number] [facility] 2021-10-22 Outpatient [place], STLMLC STLMLC [id number] Common 11:56:49 Regina [id number] [facility] 2021-10-22 Outpatient [place], STLMLC STLMLC [id number] Common 11:56:09 Regina 54554 [facility] 2021-10-22 Outpatient [place], STLMLC STLMLC [id number] Common 11:21:52 Regina [id number] [facility] 2021-10-22 Outpatient [place], STLMLC STLMLC [id number] Common 11:07:15 Regina 23523 [facility] 2021-10-22 Outpatient [place], STLMLC STLMLC [id number] Common 11:06:53 Regina [id number] [facility] 2021-10-22 Outpatient [place], STLMLC STLMLC [id number] Common 10:59:53 Regina [id number] [facility] 2021-07-28 Emergency [facility] [id number] [facility] 2023-08-26 Outpatient MHIE MHIE [id number] Memoria 09:00:00 09:00:00 05 eb Rodriguez 2023-08-26 2023-08-26 Outpatient MHIE MHIE [id number] Memoria 09:00:00 09:00:00 05 eb Rodriguez 2023-06-10 2023-06-10 Office [facility] [id number] Univers 11:15:00 11:30:00 Visit [facility] [id number] it y of [place] [id number] Ty as MANOJ?BLEA [id number] Ut nikita AREVALO [address] [place] [address] MEDICAL OFFICE [facility] 2023-06-10 2023-06-10 Outpatient Alec SCHAFFER, [facility] [id number] Univers 11:15:00 11:15:00 BRIAN ity of [facility] 2023-06-10 2023-06-10 Orders Doctor MEGAN [id number] Univers 00:00:00 00:00:00 Only Unassigned, ANASTASIA [id number] ity of [place] [facility] [id number] Ty as [id number] [address] 2023-03-26 2023-03-27 Outpatient MHIE MNA [id number] Memoria 14:45:00 04:59:59 Neurology 04 l Renetta Rodriguez 2023-03-26 2023-03-27 Outpatient MHIE MNA [id number] Memoria 14:45:00 04:59:59 Neurology 04 l Renetta Rodriguez 2023-03-26 2023-03-26 Outpatient SAADIA HaysMISCHER MHMISCHER [id number] 09:45:00 23:59:59 Jeison Sita [place] 2023-03-26 2023-03-26 Ambulatory MHIE MNA [id number] Memoria 14:45:00 14:45:00 Pre-Reg Neurology 02 eb Renetta Rodriguez 2023-03-26 2023-03-26 Ambulatory MHIE MNA [id number] Memoria 14:45:00 14:45:00 Pre-Reg Neurology 02 l Renetta Rodriguez 2023-03-26 2023-03-26 Outpatient MHIE MHIE [id number] Memoria 09:45:00 09:45:00 04 eb Rodriguez 2023-03-26 2023-03-26 Outpatient MHIE MHIE [id number] Memoria 09:45:00 09:45:00 02 eb Rodriguez 2023-03-26 2023-03-26 Outpatient NURIS HaysSCHER MHMISCHER [id number] 09:45:00 09:45:00 Jeison Coleman [place] 2023-02-16 2023-02-17 Outpatient MHIE MNA [id number] Memoria 16:00:00 04:59:59 Neurology 03 eb Rodriguez 2023-02-16 2023-02-17 Outpatient MHIE MNA [id number] Memoria 16:00:00 04:59:59 Neurology 03 l Renetta Rodriguez 2023-02-16 2023-02-16 Outpatient NURIS HaysSCHER MHMISCHER [id number] 11:00:00 23:59:59 Jeison 03 Grayson 2023-02-16 2023-02-16 Outpatient MHIE MHIE [id number] Memoria 11:00:00 11:00:00 03 eb Rodriguez 2023-02-12 2023-02-13 Outpatient MHIE MNA [id number] Memoria 13:15:00 04:59:59 Neurology 01 eb Kochann 2023-02-12 2023-02-13 Outpatient MHIE MNA [id number] Memoria 13:15:00 04:59:59 Neurology 01 eb Rodriguez 2023-02-12 2023-02-12 Outpatient NURIS HaysSCHER MHMISCHER [id number] 08:15:00 23:59:59 Jeison Grayson 2023-02-12 2023-02-12 Outpatient MHIE MHIE [id number] Memoria 08:15:00 08:15:00 01 eb KochMichael 2023-01-27 2023-01-27 Orders Doctor GUZMAN 1.2.840.114 [id number] Univers 00:00:00 00:00:00 Only Unassigned, ANASTASIA 350.1.13.10 ity of [place] [facility] 4.2.7.2.686 Ty as [id number] [place] [address] [address] 2023-01-12 2023-01-13 Outpatient MHIE MNA [id number] Memoria 20:15:00 04:59:59 Neurology 00 eb Kochann 2023-01-12 2023-01-13 Outpatient MHIE MNA [id number] Memoria 20:15:00 04:59:59 Neurology 00 eb Kinder Michael 2023-01-12 2023-01-12 Outpatient Krell, MHMISCHER MHMISCHER [id number] 15:15:00 23:59:59 Jeison 00 Grayson 2023-01-12 2023-01-12 Outpatient SAADIACAHNTELLE SAADIACHANTELLE [id number] Memoria 15:15:00 15:15:00 00 eb Rodriguez 2023-01-07 2023-01-07 Hospital Radiology [facility] 1.2.840.114 [id number] Univers 08:11:54 23:59:00 Encounter GIL 350.1.13.10 ity of [place] 4.2.7.2.686 [facility] [id number] [facility] [address] 2023-01-07 2023-01-07 Outpatient R RADIOLOGY [facility] [id number] Univers 00:00:00 23:59:00 ity of [facility] 2022-12-16 2022-12-16 OFFICE STLMLC STLMLC [id number] Co mmon 00:00:00 00:00:00 VISIT Spirit ESTAB PT - CHI LEVEL 4 [facility] 2022-12-11 2022-12-11 (TEL) STLMLC STLMLC [id number] Co mmon 00:00:00 00:00:00 [facility] 2022-10-28 2022-10-28 (TEL) STLMLC STLMLC [id number] Co mmon 00:00:00 00:00:00 [facility] 2022-09-17 2022-09-17 OFFICE STLMLC STLMLC [id number] Co mmon 00:00:00 00:00:00 VISIT Spirit ESTAB PT - CHI LEVEL 4 [facility] 2022-08-14 2022-08-14 Transition ELIUD Rice 1.2.840.114 [id number] Univers 00:00:00 00:00:00 of Judah ELAM 350.1.13.10 it y of [place] 4.2.7.2.686 [facility] [phone] [facility] [address] 2022-08-14 2022-08-14 (TEL) STLMLC STLMLC [id number] Co mmon 00:00:00 00:00:00 [facility] 2022-08-12 2022-08-13 Outpatient X [facility] [id number] Univers 10:44:00 16:22:00 EARL ity of [facility] 2022-08-12 2022-08-13 Emergency Leonora Ruby [facility] 1.2.840 .114 [id number] Univers 10:44:00 16:22:00 Alexandre Montemayor 350.1.13.10 ity of Earl GoddardJUN 4.2.7.2.686 [facility] [id number] [place] [address] Branch 2022-06-22 2022-06-22 (TEL) STLMLC STLMLC [id number] Co mmon 00:00:00 00:00:00 Spirit [facility] 2022-06-19 2022-06-19 (MCR WELL) STLMLC STLMLC [id number] Common 00:00:00 00:00:00 Medicare Spiri t Wellness [facility] 2022-06-19 2022-06-19 OFFICE STLMLC STLMLC [id number] Co mmon 00:00:00 00:00:00 VISIT EST Spir it PT LEVEL 3 [facility] 2022-06-16 2022-06-16 Orders Doctor MEGAN 1.2.840.114 [id number] Univers 00:00:00 00:00:00 Only Unassigned, ANASTASIA 350.1.13.10 ity of [place] [facility] 4.2.7.2.686 Ty as [phone] [facility] [address] 2022-06-15 2022-06-15 OFFICE STLMLC STLMLC [id number] Co mmon 00:00:00 00:00:00 VISIT EST Spir it PT LEVEL 3 [facility] 2022-05-21 2022-05-21 Telephone Nila [facility] 1.2.840.114 [id number] Univers 00:00:00 00:00:00 Wallace Edge [facility] 350.1.13.10 it y of [place] 4.2.7.2.686 Ty as MANOJ?BLEA [id number] Ut nikita AREVALO [address] [place] [address] MEDICAL OFFICE BUILDING 2022-05-19 2022-05-19 Office [facility] 1.2.840.114 [id number] Univers 08:45:00 09:00:00 Visit Brian S HEALTH 350.1.13.10 it y of [place] 4.2.7.2.686 Ty as MANOJ?BLEA [id number] Ut nikita [address] MEDICAL OFFICE BUILDING 2022-05-19 2022-05-19 [facility] [id number] Univers 08:45:00 08:45:00 BRIAN ity of [facility] 2022-05-19 2022-05-19 Outpatient R [facility] [id number] Univers 08:45:00 08:45:00 BRIAN ity [facility] 2022-05-16 2022-05-16 Outpatient R RADIOLOGY [facility] [id number] Univers 07:47:58 23:59:00 ity of [facility] 2022-05-16 2022-05-16 Hospital Radiology [facility] 1.2.840.114 [id number] Univers 07:47:58 23:59:00 Encounter GIL 350.1.13.10 ity [facility] 4.2.7.2.[place] [id number] [facility] [address] 2022-05-16 2022-05-16 Outpatient R RADIOLOGY [facility] [id number] Univers 07:47:58 23:59:00 ity of [facility] 2022-05-14 2022-05-14 [facility] 1.2.840.114 [id number] Univers 08:30:00 08:30:00 Encounter Y HEALTH 350.1.13.10 ity of [facility] 4.2.7.2.686 [place] [id number] [facility] [address] 2022-05-14 2022-05-14 Outpatient R RADIOLOGY [facility] [id number] Univers 00:00:00 00:00:00 ity of [facility] 2022-05-14 2022-05-14 Outpatient R RADIOLOGY [facility] [id number] Univers 00:00:00 00:00:00 ity of [facility] 2022-05-12 2022-05-12 Telephone Nila [facility] 1.2.840.114 [id number] Univers 00:00:00 00:00:00 Wallace Edge HEALTH 350.1.13.10 it y of [place] 4.2.7.2.686 Ty as MANOJ?BLEA [phone] Ut nikita AREVALO [address] MEDICAL OFFICE [facility] 2022-05-11 2022-05-11 [facility] [id number] Univers 15:14:20 23:59:00 WALLACE ity [facility] 2022-05-11 2022-05-11 [facility] 1.2.840.114 [id number] Univers 15:14:20 23:59:00 Encounter Wallace CORDERO 350.1.13.10 ity of [place] 4.2.7.2.686 [place] [id number] [facility] [address] [place] [address] 2022-05-11 2022-05-11 Office [facility] 1.2.982.244 [id number] Univers 14:45:00 14:45:00 Visit Wallace TEJEDA 350.1.13.10 it y of [place] 4.2.7.2.686 Ty as MANOJ?BLEA [id number] Ut nikita AREVALO [address] [place] [address] OFFICE [facility] 2022-05-11 2022-05-11 [facility] [id number] Univers 14:45:00 14:34:12 WALLACE saleem [facility] 2022-05-07 2022-05-07 Telephone [facility] 1.2.840.114 [id number] Univers 00:00:00 00:00:00 Wallace Edge HEALTH 350.1.13.10 it y [facility] 4.2.7.2.686 Ty as MANOJ?BLEA [id number] Ut nikita AREVALO [address] [place] [address] MEDICAL OFFICE [facility] 2022-03-05 2022-03-05 (TEL) [facility] [id number] Co mmon 00:00:00 00:00:00 [facility] 2022-03-03 2022-03-03 [facility] [id number] Univers 13:04:32 23:59:00 [facility] 2022-03-03 2022-03-03 Office [facility] 1.2.840.114 [id number] Univers 13:45:00 14:00:00 Visit [facility] HEALTH 350.1.13.10 it y of [place] 4.2.7.2.686 Ty as MANOJ?BLEA [id number] [address] OFFICE [facility] 2022-03-03 2022-03-03 [facility] [id number] Univers 13:45:00 13:45:00 [facility] 2022-02-16 2022-02-16 [facility] [id number] Univers 13:27:13 23:59:00 [facility] 2022-02-16 2022-02-16 [facility] [id number] Univers 13:27:13 23:59:00 [facility] 2022-02-16 2022-02-16 Office [facility] 1.2.840.114 [id number] Univers 13:45:00 14:00:00 Visit [facility] 350.1.13.10 it y [facility] 4.2.7.2.686 Ty as MANOJ?BLEA [id number] [address] OFFICE [facility] 2022-02-16 2022-02-16 Out[facility] [id number] Univers 13:45:00 13:45:00 [facility] 2022-02-16 2022-02-16 Orders Doctor MEGAN 1.2.840.114 [id number] Univers 00:00:00 00:00:00 Only Unassigned, ANASTASIA 350.1.13.10 ity of [place] [facility] 4.2.7.2.686 Ty as [id number] [address] 2022-02-16 2022-02-16 Telephone [facility] 1.2.613.290 [id number] Univers 00:00:00 00:00:00 Brian S HEALTH 350.1.13.10 it y of [place] 4.2.7.2.686 Ty as MANOJ?BLEA [id number] Ut nikita HILDA [address] [place] [address] MEDICAL OFFICE BUILDING 2022-02-05 2022-02-05 Orders Doctor MEGAN 1.2.840.114 [id number] Univers 00:00:00 00:00:00 Only Unassigned, ANASTASIA 350.1.13.10 ity of [place] [facility] 4.2.7.2.686 [place] as [id number] [address] 2022-02-04 2022-02-04 OFFICE STLMLC STLMLC [id number] Co mmon 00:00:00 00:00:00 VISIT EST Spir it PT LEVEL 3 - [facility] 2022-01-19 2022-01-19 (TEL) STLMLC STLMLC [id number] Co mmon 00:00:00 00:00:00 [facility] 2022-01-05 2022-01-05 OFFICE STLMLC STLMLC [id number] Co mmon 00:00:00 00:00:00 VISIT EST Spir it PT LEVEL 3 - [facility] 2021-12-22 2021-12-22 OFFICE STLMLC STLMLC [id number] Co mmon 00:00:00 00:00:00 VISIT [facility] PT - CHI LEVEL 4 [facility] 2021-11-20 2021-11-20 (TEL) STLMLC STLMLC [id number] Co mmon 00:00:00 00:00:00 [facility] 2021-10-21 2021-10-21 (TEL) STLMLC STLMLC [id number] Co mmon 00:00:00 00:00:00 [facility] 2021-10-02 2021-10-02 (TEL) STLMLC STLMLC [id number] Co mmon 00:00:00 00:00:00 [facility] 2021-09-26 2021-09-26 [facility] [id number] Memoria 14:19:00 19:21:00 Surgery r Michael 02 l [facility] 2021-09-26 2021-09-26 [facility] [id number] Memoria 14:19:00 19:21:00 Surgery r Topton 02 l [facility] 2021-09-26 2021-09-26 Outpatient SAADIA NashPL MHPL [id number] 08:19:00 13:21:00 [facility] [place] 2021-09-26 2021-09-26 Outpatient SAADIA NASHBL MHBL [id number] MHBL 08:19:00 13:21:00 [place] 2021-09-12 2021-09-12 (TEL) STLMLC STLMLC [id number] Co mmon 00:00:00 00:00:00 [facility] 2021-09-08 2021-09-08 (TEL) STLMLC STLMLC [id number] Co mmon 00:00:00 00:00:00 [facility] 2021-09-02 2021-09-02 Outpatient Alec [facility] OPH [id number] Univers 06:24:00 09:17:00 CHE chinchilla [facility] 2021-09-02 2021-09-02 [facility] 1.2.840.114 [id number] Univers 06:24:00 09:17:00 Encounter Che CORDERO 350.1.13.10 ity of [place].2.7.2.686 [place] [id number] [address] 2021-09-02 2021-09-02 [facility] 1.2.564.361 [id number] Univers 07:30:00 08:31:00 Che CORDERO 350.1.13.10 ity of [place].2.7.2.686 [place] [id number] [address] 2021-09-01 2021-09-01 Outpatient Alec BAH [facility] [id number] Univers 09:45:00 09:45:00 CHE saleem [facility] 2021-09-01 2021-09-01 Laboratory Only, Adc Test [facility] 1.2.840. 114 [id number] Univers 08:58:02 09:13:02 Only Che Bah 350.1.13. 10 ity of [place] 4.2.7.2.686 [place] [facility] [id number] [facility] [address] 2021-09-01 2021-09-01 Orders Doctor MEGAN 1.2.840.114 [id number] Univers 00:00:00 00:00:00 Only Unassigned, ANASTASIA 350.1.13.10 ity of [place] [facility] 4.2.7.2.686 Ty as [id number] [facility] [address] 2021-09-01 2021-09-01 (TEL) STLMLC STLMLC [id number] Co mmon 00:00:00 00:00:00 [facility] 2021-08-26 2021-08-26 OFFICE STLMLC STLC [id number] Co mmon 00:00:00 00:00:00 VISIT EST Spir it PT LEVEL 3 [facility] 2021-08-19 2021-08-19 (TEL) STLMLC STLMLC [id number] Co mmon 00:00:00 00:00:00 [facility] 2021-08-13 2021-08-13 [facility] [id number] Univers 13:15:00 13:15:00 BRIAN itsaleem of [facility] 2021-08-13 2021-08-13 Office [facility] 1.2.840.114 [id number] Univers 12:47:28 13:02:28 Visit [facility] 350.1.13.10 it y of [place] 4.2.7.2.686 Ty as MANOJ?BLEA [id number] Ut nikita [address] MEDICAL OFFICE BUILDING 2021-08-13 2021-08-13 Telephone [facility] 1.2.840.114 [id number] Univers 00:00:00 00:00:00 [facility] 350.1.13.10 it y of SURGICAL 4.2.7.2.686 Ty as SPECIALTI [id number] Ut nikita JOSEPH [address] [place] [address] 2021-07-29 2021-07-29 (TEL) STLMLC STLMLC [id number] Co mmon 00:00:00 00:00:00 [facility] 2021-07-25 2021-07-25 (TEL) STLMLC STLMLC [id number] Co mmon 00:00:00 00:00:00 [facility] 2021-07-21 2021-07-21 Hospital [facility] 1.2.840.114 [id number] Univers 13:35:00 23:59:00 Encounter Wallace Tejeda 350.1.13.10 ity of [place] 4.2.7.2.686 Ty as Maonj?Blea [id number] [facility] 809 [facility] Office [facility] 2021-07-21 2021-07-21 Outpatient [facility] [id number] Univers 13:35:00 23:59:00 [facility] 2021-07-21 2021-07-21 Outpatient [facility] [id number] Univers 13:30:00 14:45:07 [facility] 2021-07-21 2021-07-21 Office [facility] 1.2.811.502 [id number] Univers 13:00:10 14:45:07 Visit Wallace [facility] 350.1.13.10 it y of [place] 4.2.7.2.686 Ty as MANOJ?BLEA [id number] [facility] [address] [facility] OFFICE [facility] 2021-07-21 2021-07-21 Outpatient [facility] [id number] Univers 13:30:00 13:30:00 [facility] 2021-07-21 2021-07-21 (TEL) STLMLC STLMLC [id number] Co mmon 00:00:00 00:00:00 Spirit - [facility] 2021-07-11 2021-07-11 (TEL) STLMLC STLMLC [id number] Co mmon 00:00:00 00:00:00 [facility] - [facility] 2021-07-11 2021-07-11 OFFICE STLMLC STLMLC [id number] Co mmon 00:00:00 00:00:00 VISIT Spirit [facility] PT - CHI LEVEL 1 [facility] 2021-07-07 2021-07-07 (TEL) STLMLC STLMLC [id number] Co mmon 00:00:00 00:00:00 [facility] 2021-06-29 2021-06-29 (TEL) STLMLC STLMLC [id number] Co mmon 00:00:00 00:00:00 [facility] 2021-06-24 2021-06-24 OFFICE STLMLC STLMLC [id number] Co mmon 00:00:00 00:00:00 VISIT [facility] PT - CHI LEVEL 4 [facility] 2021-06-13 2021-06-13 Emergency Nemesio, [facility] 1.2.840.114 [id number] Univers 14:19:00 18:37:00 Shannon Cordero 350.1.13.10 saleem [place] 4.2.7.2.686 [facility] [phone] [facility] [address] 2021-06-06 2021-06-06 Outpatient STLMLC STLMLC [id number] Common 00:00:00 00:00:00 [facility] 2021-05-05 2021-05-05 Outpatient STLMLC STLMLC [id number] Common 00:00:00 00:00:00 [facility] 2021-04-30 2021-04-30 Outpatient STLMLC STLMLC [id number] Common 00:00:00 00:00:00 [facility] 2021-04-30 2021-04-30 Outpatient STLMLC STLMLC [id number] Common 00:00:00 00:00:00 [facility] 2021-04-25 2021-04-25 Outpatient STLMLC STLMLC [id number] Common 00:00:00 00:00:00 [facility] 2021-04-03 2021-04-03 Outpatient STLMLC STLMLC [id number] Common 00:00:00 00:00:00 [facility] 2021-03-25 2021-03-25 OFFICE STLMLC STLMLC [id number] Co mmon 00:00:00 00:00:00 VISIT [facility] LEVEL 4 [facility] 2021-01-24 2021-01-24 Outpatient STLMLC STLMLC [id number] Common 00:00:00 00:00:00 [facility] 2021-01-17 2021-01-17 Outpatient STLMLC STLMLC [id number] Common 00:00:00 00:00:00 [facility] 2021-01-13 2021-01-13 Outpatient STLMLC STLMLC [id number] Common 00:00:00 00:00:00 [facility] 2021-01-10 2021-01-10 Outpatient STLMLC STLMLC [id number] Common 00:00:00 00:00:00 [facility] 2020-12-31 2020-12-31 Outpatient STLMLC STLMLC [id number] Common 00:00:00 00:00:00 [facility] 2020-12-25 2020-12-25 [facility] [id number] Univers 13:45:00 13:45:00 [facility] 2020-12-25 2020-12-25 Office [facility] 1.2.003.863 [id number] 12:51:24 13:25:03 Visit [facility] 350.1.13.10 Surgical 4.2.7.2.686 Specialti [id number] [address] [place] 2020-12-23 2020-12-23 Outpatient [facility] [id number] Univers 13:45:00 13:45:00 [facility] 2020-12-23 2020-12-23 Outpatient STLMLC STLMLC [id number] Common 00:00:00 00:00:00 [facility] 2020-12-21 2020-12-21 Outpatient STLMLC STLMLC [id number] Common 00:00:00 00:00:00 [facility] 2020-12-19 2020-12-19 Outpatient STLMLC STLMLC [id number] Common 00:00:00 00:00:00 [facility] 2020-12-17 2020-12-17 Outpatient STLMLC STLMLC [id number] Common 00:00:00 00:00:00 [facility] 2020-12-17 2020-12-17 Outpatient STLMLC STLMLC [id number] Common 00:00:00 00:00:00 [facility] 2020 2020 Outpatient STLMLC STLMLC [id number] Common 00:00:00 00:00:00 [facility] 2020-12-09 2020-12-09 Outpatient STLMLC STLMLC [id number] Common 00:00:00 00:00:00 [facility] 2020-11-07 2020-11-07 Outpatient STLMLC STLMLC [id number] Common 00:00:00 00:00:00 [facility] 2020-11-04 2020-11-04 Outpatient STLMLC STLMLC [id number] Common 00:00:00 00:00:00 [facility] 2020-11-04 2020-11-04 Outpatient STLMLC STLMLC [id number] Common 00:00:00 00:00:00 [facility] 2020-10-15 2020-10-15 Outpatient SAAD [facility] [id number] [facility] 07:11:00 12:00:00 [place] 2020-09-09 2020-09-09 Outpatient STLMLC STLMLC [id number] Common 00:00:00 00:00:00 [facility] 2020-08-14 2020-08-14 Outpatient Young_J MMG MMG [id number] [place] 02:37:00 02:37:00 [facility] 2020-07-16 2020-07-16 Outpatient STLMLC STLMLC [id number] Common 00:00:00 00:00:00 [facility] 2020-07-04 2020-07-04 Outpatient Alec DOTSON [facility] [id number] Univers 08:00:00 08:00:00 WALLACE chinchilla [facility] 2020-05-06 2020-05-06 [facility] [id number] Common 10:52:00 10:52:00 [facility] [address] [facility] 2020-04-15 2020-04-15 Outpatient Alec SCHAFFER [facility] [id number] Univers 15:45:00 15:45:00 [facility] 2020-04-11 2020-04-11 Outpatient [facility] [id number] Univers 15:30:00 15:30:00 [facility] 2020-04-10 2020-04-10 Outpatient [facility] [id number] Common 13:19:00 13:19:00 [facility] [address] [facility] 2020-04-08 2020-04-08 Outpatient [facility] [id number] Common 11:08:00 11:08:00 [facility] [address] [facility] 2020-04-05 2020-04-05 Outpatient [facility] [id number] Common 18:34:00 18:34:00 [facility] [address] [facility] 2020-03-07 2020-03-07 [facility]patient [facility] [id number] Univers 15:00:00 15:00:00 [facility] 2020-01-09 2020-01-09 Outpatient [facility] [id number] Common 14:23:00 14:23:00 [facility] [address] [facility] 2020-01-08 2020-01-08 Outpatient [facility] [id number] Common 08:00:00 08:00:00 [facility] [address] [facility] 2019-11-22 2019-11-22 Outpatient [facility] [id number] Common 19:45:00 19:45:00 [facility] [address] [facility] 2019-11-08 2019-11-08 Outpatient [facility] [id number] Common 09:12:00 09:12:[address] [facility] 2019-11-07 2019-11-07 Outpatient [facility] [id number] Common 08:17:00 08:17:[address] [facility] 2019-10-19 2019-10-19 Outpatient [facility] [id number] Common 15:57:00 15:57:[address] [facility] 2019-10-18 2019-10-18 Outpatient [facility] [id number] Common 09:24:00 09:24:[address] [facility] 2019-10-17 2019-10-17 Outpatient [facility] [id number] Common 09:00:00 09:00:[address] [facility] 2019-10-11 2019-10-11 Outpatient O [facility] [id number] Univers 15:30:52 15:30:00 [facility] 2019-10-09 2019-10-09 Outpatient [facility] [id number] Common 10:27:00 10:27:00 [facility] [address] [facility] 2019-10-09 2019-10-09 Outpatient [facility] [id number] Common 09:00:00 09:00:[address] [facility] 2018-08-08 2018-08-08 Saravanan ABDALLA [place] - [id number] M atagor 00:00:00 00:00:00 DO Terrance: [facility] hasmukh ramon [address] [place] [address] - [address], [place] [address] , Ph. [phone] 2018-08-04 2018-08-04 Jose Garcia MM [place] - [id number] M atagor 00:00:00 00:00:00 MD Bobbi: [facility] [address] [place] [address], [place] [address], [place] [address] , Ph. 2018-07-07 2018-07-07 Jose Garcia MM [place] - [id number] M atagor 00:00:00 00:00:00 MD Bobbi: [employer] [facility] [address] [facility] [address] - [address], [place] [address] , Ph. Results Test Description Test Time Test Comments Results Result Comments Source Transthoracic echo (TTE) 2022-08-13 22:32:11 Test Item Value Reference Range Interpretation Comme nts Height (test code = 3260107054) in Weight (test code = 8883125664) lbs Systolic BP (test code = 7071825531) mmHg Diastolic BP (test code = 3907529444) mmHg Heart Rate (test code = 3049246273) bpm BSA (test code = 5264366344) 2.06 m2 Ao root diam (test code = 3076370416) 4.10 cm Aortic root (test code = 2317772026) 4.1 cm Ao root annulus (test code = 4.1 cm 2437001279) LVOT diameter (test code = 3151375686) 2.13 cm LVOT area (test code = 6223475721) 3.60 cm2 LA size (test code = 9702177503) 2.7 cm LAV(MOD-sp4) (test code = 8142642717) 46.70 mL E wave decelartion time (test code = 0.17 s 6852836755) MV stenosis pressure 1/2 time (test 51.2 ms code = 1699129524) MV Peak A Bobby (test code = 3954068625) 65.7 cm/s MV Peak E Bobby (test code = 4518983479) 52.5 cm/s E/A ratio (test code = 9750898792) ratio MV Prop V (test code = 5158297478) 58.90 cm/s MV E/e' septal (test code = 8.6 cm/s 9293447406) Tapse (test code = 6523573611) 2.07 cm LVOT stroke volume (test code = 56.50 cm3 7910942689) LVOT peak bobby (test code = 1506691679) 83.0 cm/s LVOT mn grad (test code = 0993521277) mmHg AV LVOT peak gradient (test code = mmHg 1904193745) LVOT peak VTI (test code = 0373708889) 15.9 cm LV V1 mean (test code = 9491959243) 57.80 cm/s Aortic valve mean velocity (test code 86.0 cm/s = 4114453264) Ao peak bobby (test code = 1916420838) 113.0 cm/s Ao VTI (test code = 5705112425) 21.8 cm AV area by cont VTI (test code = 2.6 cm2 3954142945) AV area peak bobby (test code = 2.6 cm2 7627573302) Ao max PG (test code = 7469432294) 5.10 mm[Hg] AV peak gradient (test code = mmHg 0087995485) AV valve area (test code = 7632370493) 2.60 cm2 AV mean gradient (test code = mmHg 9787628612) LVIDD (test code = 7860075997) 4.80 cm Left Ventricular End Diastolic Volume 109.8 mL by Teichholz Method (test code = 0146727) IVS (test code = 2566662017) 1.03 cm Interventricular Septum Diastolic 1.03 cm Thickness by 2D (test code = 6429071) LVPWD (test code = 0058220739) 1.04 cm PW (test code = 9738322756) 1.04 cm 0.6-1.1 EF(Teich) (test code = 2858927242) 64.10 % LVIDS (test code = 7552809553) 3.20 cm Left Ventricular End Systolic Volume 39.4 mL by Teichholz Method (test code = 0728326) FS (test code = 6251416216) 35 % EF - 2D (test code = 21949295) 64.10 % Radiology Study observation (narrative) (test code = 41454-9) SOFIYA (test code = SOFIYA) ?Left?Ventricle: Left [...] mL of Lumason ultrasound enhancing agent used. [facility] GLUCOSE (AUTOMATED)2022-08-13 18:19:00 Test Item Value Reference Range Interpretation Comments POCT GLU (test code = 3801685448) 196 mg/dL 70-110 H Lab Interpretation (test code = Abnormal 24444-7) [facility] GLUCOSE (AUTOMATED)2022-08-13 13:59:31 Test Item Value Reference Range Interpretation Comments POCT GLU (test code = 0754432973) 146 mg/dL 70-110 H Lab Interpretation (test code = Abnormal 16386-4) [facility] GLUCOSE (AUTOMATED)2022-08-13 01:25:38 Test Item Value Reference Range Interpretation Comments POCT GLU (test code = 2182792525) 102 mg/dL 70-110 Lab Interpretation (test code = Normal 33232-4) [id number]37 Test Item Value Reference Interpretation Comments Range TROPONIN I (test 0.004 ng/mL See_Comment [Automated code = 6231511130) message] The system which generated this result [...] biotin. Lab Interpretation Normal (test code = 90383-1) [facility] Test Item Value Reference Range Interpretation Comments Hgb (test code = Hgb) 14.1 14.0-18.0 [facility]ZXYFHQAVX4037-53-55 19:07:00 Test Item Value Reference Range Interpretation Comments Hct (test code = Hct) 42.2 42.0-54.0 [facility]AgbqmvuKQJYNWZSVS4188-11-20 19:07:00 Test Item Value Reference Range Interpretation Comments MCV (test code = MCV) 85.3 80.0-94.0 [facility] HospitalJjprqzkLHMXHKULEN8284-23-17 19:07:00 Test Item Value Reference Range Interpretation Comments MCH (test code = MCH) 28.6 pg 27.0-31.0 [facility] HospitalDsfmhwlROGKJEANJL9275-83-64 19:07:00 Test Item Value Reference Range Interpretation Comments MCHC (test code = MCHC) 33.5 32.0-36.0 [facility] HospitalDefhcvxKYCIDSTSSL8808-13-17 19:07:00 Test Item Value Reference Range Interpretation Comments RDW (test code = RDW) 14.7 11.5-14.5 [facility] HospitalNffwhvcJBTGGVLTNB1896-27-73 19:07:00 Test Item Value Reference Range Interpretation Comments Platelet (test code = Platelet) 219 133-450 [facility] HospitalJqnphqvHHFFGXIUIN4497-25-69 19:07:00 Test Item Value Reference Range Interpretation Comments MPV (test code = MPV) 8.2 7.4-10.4 [facility] ERIZXUIRI2745-96-59 19:07:00 Test Item Value Reference Range Interpretation Comments Hgb A1C (test code = Hgb A1C) 6.4 [facility]2021-12-29 19:07:00 Test Item Value Reference Range Interpretation Comments Glucose Lvl (test code = Glucose Lvl) 153 70-99 [facility]2021-12-29 19:07:00 Test Item Value Reference Range Interpretation Comments BUN (test code = BUN) 18 7-22 [facility]2021-12-29 19:07:00 Test Item Value Reference Range Interpretation Comments Creatinine Lvl (test code = Creatinine 1.44 0.50-1.40 Lvl) [facility]2021-12-29 19:07:00 Test Item Value Reference Range Interpretation Comments Sodium Lvl (test code = Sodium Lvl) 132 135-145 [facility]2021-12-29 19:07:00 Test Item Value Reference Range Interpretation Comments Potassium Lvl (test code = Potassium 4.8 3.5-5.1 Lvl) [facility]2021-12-29 19:07:00 Test Item Value Reference Range Interpretation Comments Chloride Lvl (test code = Chloride Lvl) 99 95-109 [facility]2021-12-29 19:07:00 Test Item Value Reference Range Interpretation Comments CO2 (test code = CO2) 27 24-32 [facility]2021-12-29 19:07:00 Test Item Value Reference Range Interpretation Comments Calcium Lvl (test code = Calcium Lvl) 9.7 8.5-10.5 [facility]2021-12-29 19:07:00 Test Item Value Reference Range Interpretation Comments AGAP (test code = AGAP) 10.8 10.0-20.0 [facility]2021-12-29 19:07:00 Test Item Value Reference Range Interpretation Comments eGFR (test code = eGFR) 52 [facility]LvjtzskDGUMHSJTCB5715-49-65 19:07:00 Test Item Value Reference Range Interpretation Comments Segs (test code = Segs) 57.5 45.0-75.0 [facility] HospitalDottgeiYNYNWAXFCY9148-30-02 19:07:00 Test Item Value Reference Range Interpretation Comments Lymphocytes (test code = Lymphocytes) 28.0 20.0-40.0 [place] 168131-12-29 19:07:00 Test Item Value Reference Range Interpretation Comments Monocytes (test code = Monocytes) 9.6 2.0-12.0 [place] 168131-12-29 19:07:00 Test Item Value Reference Range Interpretation Comments Eosinophils (test code = 4.4 See_Comment [A utomated message] The Eosinophils) system which ge nerated this result tra nsmitted reference range : <=4.0. The reference r glenn was not used to int erpret this result as normal/abnormal . [facility] HospitalDsxqwooYXIIKZECUQ2751-50-17 19:07:00 Test Item Value Reference Range Interpretation Comments Basophils (test code = 0.5 See_Comment [Aut omated message] The Basophils) system which ge nerated this result tra nsmitted reference range : <=1.0. The reference r glenn was not used to int erpret this result as normal/abnormal . [facility] HospitalBhpthkgIOCGHFINXT3646-22-26 19:07:00 Test Item Value Reference Range Interpretation Comments Neutrophils # (test code = Neutrophils 3.3 1.5-8.1 #) [facility] HospitalGmldvioUNPGWZWLWH9449-88-26 19:07:00 Test Item Value Reference Range Interpretation Comments Lymphocytes # (test code = Lymphocytes 1.6 1.0-5.5 #) [facility] HospitalVzjcggpIWTNLVZTYO3715-28-87 19:07:00 Test Item Value Reference Range Interpretation Comments Monocytes # (test code 0.5 See_Comment [Aut omated message] The = Monocytes #) system which generated this result tra nsmitted reference range : <=0.8. The reference r glenn was not used to int erpret this result as normal/abnormal . [facility] HospitalLmdktqmTREMQQCHLY4729-80-66 19:07:00 Test Item Value Reference Range Interpretation Comments Eosinophils # (test code 0.2 See_Comment [A utomated message] The = Eosinophils #) system whic h generated this result tra nsmitted reference range : <=0.5. The reference r glenn was not used to int erpret this result as normal/abnormal . [facility] HospitalOcfiwsmSKYIDLNPAU5803-62-64 19:07:00 Test Item Value Reference Range Interpretation Comments WBC (test code = WBC) 5.7 3.7-10.4 [facility] CenterCszkonlDPRWNSIUMD6007-04-62 19:07:00 Test Item Value Reference Range Interpretation Comments RBC (test code = RBC) 4.95 4.70-6.10 [facility] CenterCikudggQTDQEPXWOB4731-02-26 19:07:00 Test Item Value Reference Range Interpretation Comments Hgb (test code = Hgb) 14.1 14.0-18.0 [facility] CenterEjmbfxgOPFXGDLFXD2010-67-29 19:07:00 Test Item Value Reference Range Interpretation Comments Hct (test code = Hct) 42.2 42.0-54.0 [facility] CenterBingvqpAQKSUMIBQE3390-36-74 19:07:00 Test Item Value Reference Range Interpretation Comments MCV (test code = MCV) 85.3 80.0-94.0 [facility] CenterMongokhFXWTZZDUBV1468-41-28 19:07:00 Test Item Value Reference Range Interpretation Comments MCH (test code = MCH) 28.6 pg 27.0-31.0 [facility] CenterMgelvjjEHSFFMSHGI3336-25-46 19:07:00 Test Item Value Reference Range Interpretation Comments MCHC (test code = MCHC) 33.5 32.0-36.0 [facility] CenterSxramqcQLKONCXMHB5910-97-15 19:07:00 Test Item Value Reference Range Interpretation Comments RDW (test code = RDW) 14.7 11.5-14.5 [facility] CenterIyitbsrITSJNZYYDV5221-46-88 19:07:00 Test Item Value Reference Range Interpretation Comments Platelet (test code = Platelet) 219 133-450 [facility] CenterLshjvflXNEESARZEV4496-04-66 19:07:00 Test Item Value Reference Range Interpretation Comments MPV (test code = MPV) 8.2 7.4-10.4 [facility] LTFEJSKGP2449-32-45 19:07:00 Test Item Value Reference Range Interpretation Comments Hgb A1C (test code = Hgb A1C) 6.4 [facility] GFDFM3605-72-25 19:07:00 Test Item Value Reference Range Interpretation Comments Glucose Lvl (test code = Glucose Lvl) 153 70-99 [facility] KJSLV8611-36-80 19:07:00 Test Item Value Reference Range Interpretation Comments BUN (test code = BUN) 18 7-22 [facility] IGXJP8520-01-66 19:07:00 Test Item Value Reference Range Interpretation Comments Creatinine Lvl (test code = Creatinine 1.44 0.50-1.40 Lvl) [place] 466161-12-29 19:07:00 Test Item Value Reference Range Interpretation Comments Sodium Lvl (test code = Sodium Lvl) 132 135-145 [place] 466161-12-29 19:07:00 Test Item Value Reference Range Interpretation Comments Potassium Lvl (test code = Potassium 4.8 3.5-5.1 Lvl) [place] 466161-12-29 19:07:00 Test Item Value Reference Range Interpretation Comments Chloride Lvl (test code = Chloride Lvl) 99 95-109 [place] 466161-12-29 19:07:00 Test Item Value Reference Range Interpretation Comments CO2 (test code = CO2) 27 24-32 [place] 466161-12-29 19:07:00 Test Item Value Reference Range Interpretation Comments Calcium Lvl (test code = Calcium Lvl) 9.7 8.5-10.5 [place] 466161-12-29 19:07:00 Test Item Value Reference Range Interpretation Comments AGAP (test code = AGAP) 10.8 10.0-20.0 [place] 466161-12-29 19:07:00 Test Item Value Reference Range Interpretation Comments eGFR (test code = eGFR) 52 [place] 168131-12-29 19:07:00 Test Item Value Reference Range Interpretation Comments Segs (test code = Segs) 57.5 45.0-75.0 [place] 168131-12-29 19:07:00 Test Item Value Reference Range Interpretation Comments Lymphocytes (test code = Lymphocytes) 28.0 20.0-40.0 [place] 168131-12-29 19:07:00 Test Item Value Reference Range Interpretation Comments Monocytes (test code = Monocytes) 9.6 2.0-12.0 [place] [address]-12-29 19:07:00 Test Item Value Reference Range Interpretation Comments Eosinophils (test code = 4.4 See_Comment [A utomated message] The Eosinophils) system which ge nerated this result tra nsmitted reference range : <=4.0. The reference r glenn was not used to int erpret this result as normal/abnormal . [place] 168131-12-29 19:07:00 Test Item Value Reference Range Interpretation Comments Basophils (test code = 0.5 See_Comment [Aut omated message] The Basophils) system which ge nerated this result tra nsmitted reference range : <=1.0. The reference r glenn was not used to int erpret this result as normal/abnormal . [facility] HospitalXqanqiyHPQIORKTLK8907-74-31 19:07:00 Test Item Value Reference Range Interpretation Comments Neutrophils # (test code = Neutrophils 3.3 1.5-8.1 #) [facility] HospitalEveqtyjMYGYFMXIOD2894-95-52 19:07:00 Test Item Value Reference Range Interpretation Comments Lymphocytes # (test code = Lymphocytes 1.6 1.0-5.5 #) [facility] HospitalNvenuwaAVTOGRRYHY0229-88-39 19:07:00 Test Item Value Reference Range Interpretation Comments Monocytes # (test code 0.5 See_Comment [Aut omated message] The = Monocytes #) system which generated this result tra nsmitted reference range : <=0.8. The reference r glenn was not used to int erpret this result as normal/abnormal . [facility] HospitalXrvirtmORCFEDAJSO3148-00-17 19:07:00 Test Item Value Reference Range Interpretation Comments Eosinophils # (test code 0.2 See_Comment [A utomated message] The = Eosinophils #) system whic h generated this result tra nsmitted reference range : <=0.5. The reference r glenn was not used to int erpret this result as normal/abnormal . [facility]2021-12-29 19:07:00 Test Item Value Reference Range Interpretation Comments Glucose Lvl (test code = Glucose Lvl) 153 70-99 [facility] HospitalKtmayqlHTPWKJRRMR0107-64-37 19:07:00 Test Item Value Reference Range Interpretation Comments WBC (test code = WBC) 5.7 3.7-10.4 [facility] HospitalVopggozEQAAYXCJDK8527-12-11 19:07:00 Test Item Value Reference Range Interpretation Comments RBC (test code = RBC) 4.95 4.70-6.10 [place] 168131-12-29 19:07:00 Test Item Value Reference Range Interpretation Comments Hgb (test code = Hgb) 14.1 14.0-18.0 [place] 168131-12-29 19:07:00 Test Item Value Reference Range Interpretation Comments Hct (test code = Hct) 42.2 42.0-54.0 [facility] CenterLvoghjwITJOUTZALO4167-22-89 19:07:00 Test Item Value Reference Range Interpretation Comments MCV (test code = MCV) 85.3 80.0-94.0 [facility] CenterKbdepoyQQFOQKDCTQ6807-81-01 19:07:00 Test Item Value Reference Range Interpretation Comments MCH (test code = MCH) 28.6 pg 27.0-31.0 [facility] CenterVuyxnwaUTPHUPCPSM5280-01-44 19:07:00 Test Item Value Reference Range Interpretation Comments MCHC (test code = MCHC) 33.5 32.0-36.0 [facility] CenterUtzzcizVUDUATDLLF2959-65-50 19:07:00 Test Item Value Reference Range Interpretation Comments RDW (test code = RDW) 14.7 11.5-14.5 [facility] CenterBokvkhbMNYDAYRPJT7577-64-35 19:07:00 Test Item Value Reference Range Interpretation Comments Platelet (test code = Platelet) 219 133-450 [facility] CenterTdsqqgkEWXOUGWPFH0655-25-38 19:07:00 Test Item Value Reference Range Interpretation Comments MPV (test code = MPV) 8.2 7.4-10.4 [facility] KGBMI1987-03-73 19:07:00 Test Item Value Reference Range Interpretation Comments BUN (test code = BUN) 18 04-17 [facility] LXOJXVFBU4705-14-06 19:07:00 Test Item Value Reference Range Interpretation Comments Hgb A1C (test code = Hgb A1C) 6.4 [facility] AWMSS4258-06-99 19:07:00 Test Item Value Reference Range Interpretation Comments Creatinine Lvl (test code = Creatinine 1.44 0.50-1.40 Lvl) [facility] MZCXL3599-14-56 19:07:00 Test Item Value Reference Range Interpretation Comments Sodium Lvl (test code = Sodium Lvl) 132 135-145 [facility] USRTE1526-31-51 19:07:00 Test Item Value Reference Range Interpretation Comments Glucose Lvl (test code = Glucose Lvl) 153 70-99 [facility] WTSHO0962-95-98 19:07:00 Test Item Value Reference Range Interpretation Comments BUN (test code = BUN) 18 04-17 [place] 466161-12-29 19:07:00 Test Item Value Reference Range Interpretation Comments Creatinine Lvl (test code = Creatinine 1.44 0.50-1.40 Lvl) [facility]2021-12-29 19:07:00 Test Item Value Reference Range Interpretation Comments Sodium Lvl (test code = Sodium Lvl) 132 135-145 [place] 466161-12-29 19:07:00 Test Item Value Reference Range Interpretation Comments Potassium Lvl (test code = Potassium 4.8 3.5-5.1 Lvl) [place] 466161-12-29 19:07:00 Test Item Value Reference Range Interpretation Comments Potassium Lvl (test code = Potassium 4.8 3.5-5.1 Lvl) [place] 466161-12-29 19:07:00 Test Item Value Reference Range Interpretation Comments Chloride Lvl (test code = Chloride Lvl) 99 95-109 [place] 466161-12-29 19:07:00 Test Item Value Reference Range Interpretation Comments CO2 (test code = CO2) 27 24-32 [place] 466161-12-29 19:07:00 Test Item Value Reference Range Interpretation Comments Calcium Lvl (test code = Calcium Lvl) 9.7 8.5-10.5 [facility]2021-12-29 19:07:00 Test Item Value Reference Range Interpretation Comments AGAP (test code = AGAP) 10.8 10.0-20.0 [facility]2021-12-29 19:07:00 Test Item Value Reference Range Interpretation Comments eGFR (test code = eGFR) 52 [place] 168131-12-29 19:07:00 Test Item Value Reference Range Interpretation Comments Segs (test code = Segs) 57.5 45.0-75.0 [place] 168131-12-29 19:07:00 Test Item Value Reference Range Interpretation Comments Lymphocytes (test code = Lymphocytes) 28.0 20.0-40.0 [place] 168131-12-29 19:07:00 Test Item Value Reference Range Interpretation Comments Monocytes (test code = Monocytes) 9.6 2.0-12.0 [place] 168131-12-29 19:07:00 Test Item Value Reference Range Interpretation Comments Eosinophils (test code = 4.4 See_Comment [A utomated message] The Eosinophils) system which ge nerated this result tra nsmitted reference range : <=4.0. The reference r glenn was not used to int erpret this result as normal/abnormal . [facility] QDBZP1371-23-47 19:07:00 Test Item Value Reference Range Interpretation Comments Chloride Lvl (test code = Chloride Lvl) 99 95-109 [facility] HospitalLqiqrvzIXDLMPHKIP9485-01-70 19:07:00 Test Item Value Reference Range Interpretation Comments Basophils (test code = 0.5 See_Comment [Aut omated message] The Basophils) system which ge nerated this result tra nsmitted reference range : <=1.0. The reference r glenn was not used to int erpret this result as normal/abnormal . [facility] HospitalEtvufiaFKATSVNAWA8103-42-08 19:07:00 Test Item Value Reference Range Interpretation Comments Neutrophils # (test code = Neutrophils 3.3 1.5-8.1 #) [place] 168131-12-29 19:07:00 Test Item Value Reference Range Interpretation Comments Lymphocytes # (test code = Lymphocytes 1.6 1.0-5.5 #) [facility] HospitalOhtnnulVQDISYSGQR9125-30-13 19:07:00 Test Item Value Reference Range Interpretation Comments Monocytes # (test code 0.5 See_Comment [Aut omated message] The = Monocytes #) system which generated this result tra nsmitted reference range : <=0.8. The reference r glenn was not used to int erpret this result as normal/abnormal . [facility] HospitalYownzuxSWQTRJUWSC9595-14-16 19:07:00 Test Item Value Reference Range Interpretation Comments Eosinophils # (test code 0.2 See_Comment [A utomated message] The = Eosinophils #) system whic h generated this result tra nsmitted reference range : <=0.5. The reference r glenn was not used to int erpret this result as normal/abnormal . [facility] HospitalYwjdgicQUDKZDCVZN5020-05-39 19:07:00 Test Item Value Reference Range Interpretation Comments WBC (test code = WBC) 5.7 3.7-10.4 [facility]2021-12-29 19:07:00 Test Item Value Reference Range Interpretation Comments Glucose Lvl (test code = Glucose Lvl) 153 70-99 [place] 168131-12-29 19:07:00 Test Item Value Reference Range Interpretation Comments RBC (test code = RBC) 4.95 4.70-6.10 [place] 466161-12-29 19:07:00 Test Item Value Reference Range Interpretation Comments BUN (test code = BUN) 18 7-22 [place] 466161-12-29 19:07:00 Test Item Value Reference Range Interpretation Comments Creatinine Lvl (test code = Creatinine 1.44 0.50-1.40 Lvl) [place] 466161-12-29 19:07:00 Test Item Value Reference Range Interpretation Comments Sodium Lvl (test code = Sodium Lvl) 132 135-145 [place] 466161-12-29 19:07:00 Test Item Value Reference Range Interpretation Comments Potassium Lvl (test code = Potassium 4.8 3.5-5.1 Lvl) [place] 466161-12-29 19:07:00 Test Item Value Reference Range Interpretation Comments Chloride Lvl (test code = Chloride Lvl) 99 95-109 [place] 466161-12-29 19:07:00 Test Item Value Reference Range Interpretation Comments CO2 (test code = CO2) 27 24-32 [place] 466161-12-29 19:07:00 Test Item Value Reference Range Interpretation Comments Calcium Lvl (test code = Calcium Lvl) 9.7 8.5-10.5 [place] 466161-12-29 19:07:00 Test Item Value Reference Range Interpretation Comments AGAP (test code = AGAP) 10.8 10.0-20.0 [place] 466161-12-29 19:07:00 Test Item Value Reference Range Interpretation Comments eGFR (test code = eGFR) 52 [place] 168131-12-29 19:07:00 Test Item Value Reference Range Interpretation Comments Segs (test code = Segs) 57.5 45.0-75.0 [place] 168131-12-29 19:07:00 Test Item Value Reference Range Interpretation Comments Hgb (test code = Hgb) 14.1 14.0-18.0 [place] 168131-12-29 19:07:00 Test Item Value Reference Range Interpretation Comments Lymphocytes (test code = Lymphocytes) 28.0 20.0-40.0 [place] 168131-12-29 19:07:00 Test Item Value Reference Range Interpretation Comments Monocytes (test code = Monocytes) 9.6 2.0-12.0 [place] 168131-12-29 19:07:00 Test Item Value Reference Range Interpretation Comments Eosinophils (test code = Eosinophils) 4.4 <=4.0 [place] 168131-12-29 19:07:00 Test Item Value Reference Range Interpretation Comments Basophils (test code = Basophils) 0.5 <=1.0 [place] 168131-12-29 19:07:00 Test Item Value Reference Range Interpretation Comments Neutrophils # (test code = Neutrophils 3.3 1.5-8.1 #) [facility] HospitalEkywznzKKPNGXZPYH4106-24-28 19:07:00 Test Item Value Reference Range Interpretation Comments Lymphocytes # (test code = Lymphocytes 1.6 1.0-5.5 #) [facility] HospitalYuhhguvPVEGLNJZUE5773-60-13 19:07:00 Test Item Value Reference Range Interpretation Comments Monocytes # (test code = Monocytes #) 0.5 <=0.8 [place] 168131-12-29 19:07:00 Test Item Value Reference Range Interpretation Comments Eosinophils # (test code = Eosinophils 0.2 <=0.5 #) [facility] HospitalRjfoehsZEAAPMMXYK7286-70-39 19:07:00 Test Item Value Reference Range Interpretation Comments WBC (test code = WBC) 5.7 3.7-10.4 [place] 168131-12-29 19:07:00 Test Item Value Reference Range Interpretation Comments RBC (test code = RBC) 4.95 4.70-6.10 [place] 168131-12-29 19:07:00 Test Item Value Reference Range Interpretation Comments Hct (test code = Hct) 42.2 42.0-54.0 [place] 168131-12-29 19:07:00 Test Item Value Reference Range Interpretation Comments Hgb (test code = Hgb) 14.1 14.0-18.0 [place] 168131-12-29 19:07:00 Test Item Value Reference Range Interpretation Comments Hct (test code = Hct) 42.2 42.0-54.0 [facility]MmqiyveVTCDURPPVP7066-76-15 19:07:00 Test Item Value Reference Range Interpretation Comments MCV (test code = MCV) 85.3 80.0-94.0 [facility] CenterPftaubaKWGZDTISUX9159-88-73 19:07:00 Test Item Value Reference Range Interpretation Comments MCH (test code = MCH) 28.6 pg 27.0-31.0 [facility] CenterXrvxoqcPWGLDGGHCR2064-01-93 19:07:00 Test Item Value Reference Range Interpretation Comments MCHC (test code = MCHC) 33.5 32.0-36.0 [facility] CenterWiwdozjXPTIUGEKNV7957-98-79 19:07:00 Test Item Value Reference Range Interpretation Comments RDW (test code = RDW) 14.7 11.5-14.5 [facility]FrrvfukFYIJZSNCZV2248-37-95 19:07:00 Test Item Value Reference Range Interpretation Comments Platelet (test code = Platelet) 219 133-450 [facility] RenaissanceBxvscmjELJEJFPCZG2293-51-09 19:07:00 Test Item Value Reference Range Interpretation Comments MPV (test code = MPV) 8.2 7.4-10.4 [facility] VQJAUUZQD3341-08-53 19:07:00 Test Item Value Reference Range Interpretation Comments Hgb A1C (test code = Hgb A1C) 6.4 [facility] CenterYusisrjYUWJDVMPOY1587-37-75 19:07:00 Test Item Value Reference Range Interpretation Comments MCV (test code = MCV) 85.3 80.0-94.0 [facility]CHE[facility] RNPKZ2821-43-14 19:07:00 Test Item Value Reference Range Interpretation Comments CO2 (test code = CO2) 27 24-32 [facility] CenterRbutzbmJRRWFIBWHQ7230-45-90 19:07:00 Test Item Value Reference Range Interpretation Comments MCH (test code = MCH) 28.6 pg 27.0-31.0 [facility] CenterTsznsyuMNPGYTBHBC9367-39-44 19:07:00 Test Item Value Reference Range Interpretation Comments MCHC (test code = MCHC) 33.5 32.0-36.0 [facility]egfnneBMBXVPIFUP3097-71-26 19:07:00 Test Item Value Reference Range Interpretation Comments RDW (test code = RDW) 14.7 11.5-14.5 [facility] CenterKyywwgjCASEUSJLZF1820-37-36 19:07:00 Test Item Value Reference Range Interpretation Comments Platelet (test code = Platelet) 219 133-450 [facility]RrfgqroAODTLRJTWS3364-98-99 19:07:00 Test Item Value Reference Range Interpretation Comments MPV (test code = MPV) 8.2 7.4-10.4 [facility] LWSSDNRZJ2552-04-92 19:07:00 Test Item Value Reference Range Interpretation Comments Hgb A1C (test code = Hgb A1C) 6.4 [facility]2021-12-29 19:07:00 Test Item Value Reference Range Interpretation Comments Calcium Lvl (test code = Calcium Lvl) 9.7 8.5-10.5 [facility]2021-12-29 19:07:00 Test Item Value Reference Range Interpretation Comments AGAP (test code = AGAP) 10.8 10.0-20.0 [facility]2021-12-29 19:07:00 Test Item Value Reference Range Interpretation Comments eGFR (test code = eGFR) 52 [facility]zOCAMSQSEWV6200-56-89 19:07:00 Test Item Value Reference Range Interpretation Comments Segs (test code = Segs) 57.5 45.0-75.0 [facility]2021-12-29 19:07:00 Test Item Value Reference Range Interpretation Comments Glucose Lvl (test code = Glucose Lvl) 153 70-99 [facility]2021-12-29 19:07:00 Test Item Value Reference Range Interpretation Comments BUN (test code = BUN) 18 7-22 [place] 466161-12-29 19:07:00 Test Item Value Reference Range Interpretation Comments Creatinine Lvl (test code = Creatinine 1.44 0.50-1.40 Lvl) [facility]2021-12-29 19:07:00 Test Item Value Reference Range Interpretation Comments Sodium Lvl (test code = Sodium Lvl) 132 135-145 [facility]2021-12-29 19:07:00 Test Item Value Reference Range Interpretation Comments Potassium Lvl (test code = Potassium 4.8 3.5-5.1 Lvl) [facility]2021-12-29 19:07:00 Test Item Value Reference Range Interpretation Comments Chloride Lvl (test code = Chloride Lvl) 99 95-109 [facility]2021-12-29 19:07:00 Test Item Value Reference Range Interpretation Comments CO2 (test code = CO2) 27 24-32 [place] 466161-12-29 19:07:00 Test Item Value Reference Range Interpretation Comments Calcium Lvl (test code = Calcium Lvl) 9.7 8.5-10.5 [place] 466161-12-29 19:07:00 Test Item Value Reference Range Interpretation Comments AGAP (test code = AGAP) 10.8 10.0-20.0 [place] 466161-12-29 19:07:00 Test Item Value Reference Range Interpretation Comments eGFR (test code = eGFR) 52 [facility] HospitalFvcfgptVCLYJRIKTO7811-62-17 19:07:00 Test Item Value Reference Range Interpretation Comments Lymphocytes (test code = Lymphocytes) 28.0 20.0-40.0 [place] 168131-12-29 19:07:00 Test Item Value Reference Range Interpretation Comments Segs (test code = Segs) 57.5 45.0-75.0 [place] 168131-12-29 19:07:00 Test Item Value Reference Range Interpretation Comments Lymphocytes (test code = Lymphocytes) 28.0 20.0-40.0 [place] 168131-12-29 19:07:00 Test Item Value Reference Range Interpretation Comments Monocytes (test code = Monocytes) 9.6 2.0-12.0 [facility] HospitalZkchdqhMAEIMJXKKB8020-93-11 19:07:00 Test Item Value Reference Range Interpretation Comments Eosinophils (test code = 4.4 See_Comment [A utomated message] The Eosinophils) system which ge nerated this result tra nsmitted reference range : <=4.0. The reference r glenn was not used to int erpret this result as normal/abnormal . [place] 168131-12-29 19:07:00 Test Item Value Reference Range Interpretation Comments Basophils (test code = 0.5 See_Comment [Aut omated message] The Basophils) system which ge nerated this result tra nsmitted reference range : <=1.0. The reference r glenn was not used to int erpret this result as normal/abnormal . [place] 168131-12-29 19:07:00 Test Item Value Reference Range Interpretation Comments Neutrophils # (test code = Neutrophils 3.3 1.5-8.1 #) [facility] HospitalYrrlohpPOLSQVVKBP4961-50-95 19:07:00 Test Item Value Reference Range Interpretation Comments Lymphocytes # (test code = Lymphocytes 1.6 1.0-5.5 #) [facility] HospitalAerqdntHKTVHQHHOQ5720-30-68 19:07:00 Test Item Value Reference Range Interpretation Comments Monocytes # (test code 0.5 See_Comment [Aut omated message] The = Monocytes #) system which generated this result tra nsmitted reference range : <=0.8. The reference r glenn was not used to int erpret this result as normal/abnormal . [facility] HospitalZdhgaofRGHFPIKVOH0007-82-74 19:07:00 Test Item Value Reference Range Interpretation Comments Eosinophils # (test code 0.2 See_Comment [A utomated message] The = Eosinophils #) system whic h generated this result tra nsmitted reference range : <=0.5. The reference r glenn was not used to int erpret this result as normal/abnormal . [facility] HospitalFwqqumyFPRLRWGNPP1264-64-86 19:07:00 Test Item Value Reference Range Interpretation Comments WBC (test code = WBC) 5.7 3.7-10.4 [facility] HospitalAqvrcjvOIIKAQOQXT7759-50-07 19:07:00 Test Item Value Reference Range Interpretation Comments Monocytes (test code = Monocytes) 9.6 2.0-12.0 [facility] HospitalGuskgepCXYVPVSHLA4490-71-22 19:07:00 Test Item Value Reference Range Interpretation Comments RBC (test code = RBC) 4.95 4.70-6.10 [facility] HospitalDwvrebsKIQGJIFXJA9032-44-53 19:07:00 Test Item Value Reference Range Interpretation Comments Hgb (test code = Hgb) 14.1 14.0-18.0 [facility] HospitalUcnxkxcAITFDFJEDC6255-55-04 19:07:00 Test Item Value Reference Range Interpretation Comments Hct (test code = Hct) 42.2 42.0-54.0 [facility] HospitalAbgdwdvABCMGBJWHF2342-57-48 19:07:00 Test Item Value Reference Range Interpretation Comments MCV (test code = MCV) 85.3 80.0-94.0 [facility] HospitalJrjubyuINKUDLHRJG2691-95-83 19:07:00 Test Item Value Reference Range Interpretation Comments MCH (test code = MCH) 28.6 pg 27.0-31.0 [place] 168131-12-29 19:07:00 Test Item Value Reference Range Interpretation Comments MCHC (test code = MCHC) 33.5 32.0-36.0 [facility] HospitalZeapliuZPBNQFELOU6039-70-30 19:07:00 Test Item Value Reference Range Interpretation Comments RDW (test code = RDW) 14.7 11.5-14.5 [facility] CenterLinccffDXKUNFDTZD7392-34-60 19:07:00 Test Item Value Reference Range Interpretation Comments Platelet (test code = Platelet) 219 133-450 [facility] CenterUuaizsfVARWBQPXKG7286-14-98 19:07:00 Test Item Value Reference Range Interpretation Comments MPV (test code = MPV) 8.2 7.4-10.4 [facility] HRSSGHJCJ8575-21-17 19:07:00 Test Item Value Reference Range Interpretation Comments Hgb A1C (test code = Hgb A1C) 6.4 [facility] HospitalPmzljdjQPGPFLNKTP7748-79-91 19:07:00 Test Item Value Reference Range Interpretation Comments Eosinophils (test code = 4.4 See_Comment [A utomated message] The Eosinophils) system which ge nerated this result tra nsmitted reference range : <=4.0. The reference r glenn was not used to int erpret this result as normal/abnormal . [facility] HospitalNcidcaaAFZRJKJZNU4042-49-18 19:07:00 Test Item Value Reference Range Interpretation Comments Basophils (test code = 0.5 See_Comment [Aut omated message] The Basophils) system which ge nerated this result tra nsmitted reference range : <=1.0. The reference r glenn was not used to int erpret this result as normal/abnormal . [facility] HospitalGedenawKMSPACKVGM5518-16-59 19:07:00 Test Item Value Reference Range Interpretation Comments Neutrophils # (test code = Neutrophils 3.3 1.5-8.1 #) [facility] HospitalWhnlmqpLAHUYTAPES7520-89-78 19:07:00 Test Item Value Reference Range Interpretation Comments Lymphocytes # (test code = Lymphocytes 1.6 1.0-5.5 #) [facility] COYOS7695-53-53 19:07:00 Test Item Value Reference Range Interpretation Comments Glucose Lvl (test code = Glucose Lvl) 153 70-99 [facility] JRGQF1497-71-15 19:07:00 Test Item Value Reference Range Interpretation Comments BUN (test code = BUN) 18 7-22 [place] 466161-12-29 19:07:00 Test Item Value Reference Range Interpretation Comments Creatinine Lvl (test code = Creatinine 1.44 0.50-1.40 Lvl) [place] 466161-12-29 19:07:00 Test Item Value Reference Range Interpretation Comments Sodium Lvl (test code = Sodium Lvl) 132 135-145 [place] 466161-12-29 19:07:00 Test Item Value Reference Range Interpretation Comments Potassium Lvl (test code = Potassium 4.8 3.5-5.1 Lvl) [facility] HospitalFdttowgSLTRFJSWLE0230-78-16 19:07:00 Test Item Value Reference Range Interpretation Comments Monocytes # (test code 0.5 See_Comment [Aut omated message] The = Monocytes #) system which generated this result tra nsmitted reference range : <=0.8. The reference r glenn was not used to int erpret this result as normal/abnormal . [place] 466161-12-29 19:07:00 Test Item Value Reference Range Interpretation Comments Chloride Lvl (test code = Chloride Lvl) 99 95-109 [place] 466161-12-29 19:07:00 Test Item Value Reference Range Interpretation Comments CO2 (test code = CO2) 27 24-32 [place] 466161-12-29 19:07:00 Test Item Value Reference Range Interpretation Comments Calcium Lvl (test code = Calcium Lvl) 9.7 8.5-10.5 [place] 466161-12-29 19:07:00 Test Item Value Reference Range Interpretation Comments AGAP (test code = AGAP) 10.8 10.0-20.0 [place] 466161-12-29 19:07:00 Test Item Value Reference Range Interpretation Comments eGFR (test code = eGFR) 52 [place] 168131-12-29 19:07:00 Test Item Value Reference Range Interpretation Comments Segs (test code = Segs) 57.5 45.0-75.0 [place] 168131-12-29 19:07:00 Test Item Value Reference Range Interpretation Comments Lymphocytes (test code = Lymphocytes) 28.0 20.0-40.0 [place] 168131-12-29 19:07:00 Test Item Value Reference Range Interpretation Comments Monocytes (test code = Monocytes) 9.6 2.0-12.0 [place] 168131-12-29 19:07:00 Test Item Value Reference Range Interpretation Comments Eosinophils (test code = 4.4 See_Comment [A utomated message] The Eosinophils) system which ge nerated this result tra nsmitted reference range : <=4.0. The reference r glenn was not used to int erpret this result as normal/abnormal . [place] 168131-12-29 19:07:00 Test Item Value Reference Range Interpretation Comments Basophils (test code = 0.5 See_Comment [Aut omated message] The Basophils) system which ge nerated this result tra nsmitted reference range : <=1.0. The reference r glenn was not used to int erpret this result as normal/abnormal . [place] 168131-12-29 19:07:00 Test Item Value Reference Range Interpretation Comments Eosinophils # (test code 0.2 See_Comment [A utomated message] The = Eosinophils #) system [employer] generated this result tra nsmitted reference range : <=0.5. The reference r glenn was not used to int erpret this result as normal/abnormal . [place] 168131-12-29 19:07:00 Test Item Value Reference Range Interpretation Comments Neutrophils # (test code = Neutrophils 3.3 1.5-8.1 #) [place] 168131-12-29 19:07:00 Test Item Value Reference Range Interpretation Comments Lymphocytes # (test code = Lymphocytes 1.6 1.0-5.5 #) [place] 168131-12-29 19:07:00 Test Item Value Reference Range Interpretation Comments Monocytes # (test code 0.5 See_Comment [Aut omated message] The = Monocytes #) system which generated this result tra nsmitted reference range : <=0.8. The reference r glenn was not used to int erpret this result as normal/abnormal . [place] 168131-12-29 19:07:00 Test Item Value Reference Range Interpretation Comments Eosinophils # (test code 0.2 See_Comment [A utomated message] The = Eosinophils #) system whic h generated this result tra nsmitted reference range : <=0.5. The reference r glenn was not used to int erpret this result as normal/abnormal . [facility]IahlcbqWGRUMXNGNU7220-14-77 19:07:00 Test Item Value Reference Range Interpretation Comments WBC (test code = WBC) 5.7 3.7-10.4 [facility] CenterKekijrkRDGMLMUAAM8802-55-16 19:07:00 Test Item Value Reference Range Interpretation Comments RBC (test code = RBC) 4.95 4.70-6.10 [facility] CenterKoltpafURUPCYIOFM3860-18-22 19:07:00 Test Item Value Reference Range Interpretation Comments Hgb (test code = Hgb) 14.1 14.0-18.0 [facility]plqzgMVXHUOTXKF7665-51-07 19:07:00 Test Item Value Reference Range Interpretation Comments Hct (test code = Hct) 42.2 42.0-54.0 [facility] CenterQkssbisNLMFUCGKCY1536-77-87 19:07:00 Test Item Value Reference Range Interpretation Comments MCV (test code = MCV) 85.3 80.0-94.0 [facility] CenterBjfajsfEUWCLABSKM7415-25-99 19:07:00 Test Item Value Reference Range Interpretation Comments MCH (test code = MCH) 28.6 pg 27.0-31.0 [facility] RenaissanceTvssvefLVJLABPOXR6121-85-04 19:07:00 Test Item Value Reference Range Interpretation Comments WBC (test code = WBC) 5.7 3.7-10.4 [facility] RenaissanceVivvvvhNLSKSJQGUC8086-66-63 19:07:00 Test Item Value Reference Range Interpretation Comments MCHC (test code = MCHC) 33.5 32.0-36.0 [facility] CenterEfnoauhWGEFWXIEXB1714-15-77 19:07:00 Test Item Value Reference Range Interpretation Comments RDW (test code = RDW) 14.7 11.5-14.5 [facility] RenaissanceVjrciqdEBZJUNLBMN5821-00-45 19:07:00 Test Item Value Reference Range Interpretation Comments Platelet (test code = Platelet) 219 133-450 [facility] RenaissanceRiaiczuAODSVLQQYL0580-27-92 19:07:00 Test Item Value Reference Range Interpretation Comments MPV (test code = MPV) 8.2 7.4-10.4 [facility] FDGGUASUY3401-38-06 19:07:00 Test Item Value Reference Range Interpretation Comments Hgb A1C (test code = Hgb A1C) 6.4 [place] 168131-12-29 19:07:00 Test Item Value Reference Range Interpretation Comments RBC (test code = RBC) 4.95 4.70-6.10 [place] 168131-12-29 19:07:00 Test Item Value Reference Range Interpretation Comments Hgb (test code = Hgb) 14.1 14.0-18.0 [place] 168131-12-29 19:07:00 Test Item Value Reference Range Interpretation Comments Hct (test code = Hct) 42.2 42.0-54.0 [place] 466161-12-29 19:07:00 Test Item Value Reference Range Interpretation Comments Glucose Lvl (test code = Glucose Lvl) 153 70-99 [place] 466161-12-29 19:07:00 Test Item Value Reference Range Interpretation Comments BUN (test code = BUN) 18 7-22 [place] 466161-12-29 19:07:00 Test Item Value Reference Range Interpretation Comments Creatinine Lvl (test code = Creatinine 1.44 0.50-1.40 Lvl) [place] 466161-12-29 19:07:00 Test Item Value Reference Range Interpretation Comments Sodium Lvl (test code = Sodium Lvl) 132 135-145 [place] 168131-12-29 19:07:00 Test Item Value Reference Range Interpretation Comments MCV (test code = MCV) 85.3 80.0-94.0 [place] 466161-12-29 19:07:00 Test Item Value Reference Range Interpretation Comments Potassium Lvl (test code = Potassium 4.8 3.5-5.1 Lvl) [place] 466161-12-29 19:07:00 Test Item Value Reference Range Interpretation Comments Chloride Lvl (test code = Chloride Lvl) 99 95-109 [place] 466161-12-29 19:07:00 Test Item Value Reference Range Interpretation Comments CO2 (test code = CO2) 27 24-32 [place] 466161-12-29 19:07:00 Test Item Value Reference Range Interpretation Comments Calcium Lvl (test code = Calcium Lvl) 9.7 8.5-10.5 [place] 466161-12-29 19:07:00 Test Item Value Reference Range Interpretation Comments AGAP (test code = AGAP) 10.8 10.0-20.0 [facility]2021-12-29 19:07:00 Test Item Value Reference Range Interpretation Comments eGFR (test code = eGFR) 52 [facility] HospitalCqzowqmPFOOQMNMKQ5763-62-03 19:07:00 Test Item Value Reference Range Interpretation Comments Segs (test code = Segs) 57.5 45.0-75.0 [facility] HospitalMmebbjuFLVQCJAMGD6377-05-03 19:07:00 Test Item Value Reference Range Interpretation Comments Lymphocytes (test code = Lymphocytes) 28.0 20.0-40.0 [place] 168131-12-29 19:07:00 Test Item Value Reference Range Interpretation Comments Monocytes (test code = Monocytes) 9.6 2.0-12.0 [facility] HospitalHdctbpoYMJFMXVVNN3302-91-09 19:07:00 Test Item Value Reference Range Interpretation Comments Eosinophils (test code = 4.4 See_Comment [A utomated message] The Eosinophils) system which ge nerated this result tra nsmitted reference range : <=4.0. The reference r glenn was not used to int erpret this result as normal/abnormal . [facility] HospitalPhyjnbwDVXSGXFIUS8636-26-10 19:07:00 Test Item Value Reference Range Interpretation Comments MCH (test code = MCH) 28.6 pg 27.0-31.0 [facility] HospitalObwwbikCUJNNRQYNN7415-45-34 19:07:00 Test Item Value Reference Range Interpretation Comments Basophils (test code = 0.5 See_Comment [Aut omated message] The Basophils) system which ge nerated this result tra nsmitted reference range : <=1.0. The reference r glenn was not used to int erpret this result as normal/abnormal . [facility] HospitalTqgedxkBORLXDTVSA0676-58-62 19:07:00 Test Item Value Reference Range Interpretation Comments Neutrophils # (test code = Neutrophils 3.3 1.5-8.1 #) [place] 168131-12-29 19:07:00 Test Item Value Reference Range Interpretation Comments Lymphocytes # (test code = Lymphocytes 1.6 1.0-5.5 #) [place] 168131-12-29 19:07:00 Test Item Value Reference Range Interpretation Comments Monocytes # (test code 0.5 See_Comment [Aut omated message] The = Monocytes #) system which generated this result tra nsmitted reference range : <=0.8. The reference r glenn was not used to int erpret this result as normal/abnormal . [facility] HospitalVgrwmfrYGBCFYISCM6418-49-58 19:07:00 Test Item Value Reference Range Interpretation Comments Eosinophils # (test code 0.2 See_Comment [A utomated message] The = Eosinophils #) system whic h generated this result tra nsmitted reference range : <=0.5. The reference r glenn was not used to int erpret this result as normal/abnormal . [facility] HospitalDaxhkftNCXJPPJPQD0320-27-57 19:07:00 Test Item Value Reference Range Interpretation Comments WBC (test code = WBC) 5.7 3.7-10.4 [facility] HospitalZrztdmaJFNNEMHSTP4571-97-95 19:07:00 Test Item Value Reference Range Interpretation Comments RBC (test code = RBC) 4.95 4.70-6.10 [facility] HospitalPdptxaiBKHQRBGZDF2160-35-22 19:07:00 Test Item Value Reference Range Interpretation Comments Hgb (test code = Hgb) 14.1 14.0-18.0 [facility] HospitalPbxpnjvCJKCTAOHPO9491-84-77 19:07:00 Test Item Value Reference Range Interpretation Comments Hct (test code = Hct) 42.2 42.0-54.0 [facility] HospitalFondnnnMOGICJCBDP2579-85-92 19:07:00 Test Item Value Reference Range Interpretation Comments MCV (test code = MCV) 85.3 80.0-94.0 [facility] HospitalOfwinnzLFUVELLOFU9035-49-20 19:07:00 Test Item Value Reference Range Interpretation Comments MCHC (test code = MCHC) 33.5 32.0-36.0 [facility] HospitalVqluicpZNVULQKXXT9379-89-65 19:07:00 Test Item Value Reference Range Interpretation Comments MCH (test code = MCH) 28.6 pg 27.0-31.0 [facility] HospitalFeqjpmiKBHLSTZBTM3940-38-65 19:07:00 Test Item Value Reference Range Interpretation Comments MCHC (test code = MCHC) 33.5 32.0-36.0 [facility] HospitalJptkmxaFBGKNKLKSM8453-90-96 19:07:00 Test Item Value Reference Range Interpretation Comments RDW (test code = RDW) 14.7 11.5-14.5 [place] 168131-12-29 19:07:00 Test Item Value Reference Range Interpretation Comments Platelet (test code = Platelet) 219 133-450 [facility] HospitalBoikfbmXBWNVXQFKC5260-04-81 19:07:00 Test Item Value Reference Range Interpretation Comments MPV (test code = MPV) 8.2 7.4-10.4 [facility]2021-12-29 19:07:00 Test Item Value Reference Range Interpretation Comments Hgb A1C (test code = Hgb A1C) 6.4 [facility] HospitalTaxrafhPNGYEFKLVS4305-66-44 19:07:00 Test Item Value Reference Range Interpretation Comments RDW (test code = RDW) 14.7 11.5-14.5 [place] 168131-12-29 19:07:00 Test Item Value Reference Range Interpretation Comments Platelet (test code = Platelet) 219 133-450 [facility] HospitalZcdqjhyOWULXLPDNK0301-92-85 19:07:00 Test Item Value Reference Range Interpretation Comments MPV (test code = MPV) 8.2 7.4-10.4 [facility]2021-12-29 19:07:00 Test Item Value Reference Range Interpretation Comments Hgb A1C (test code = Hgb A1C) 6.4 [facility]2021-12-29 19:07:00 Test Item Value Reference Range Interpretation Comments Glucose Lvl (test code = Glucose Lvl) 153 70-99 [facility]2021-12-29 19:07:00 Test Item Value Reference Range Interpretation Comments BUN (test code = BUN) 18 7-22 [place] 466161-12-29 19:07:00 Test Item Value Reference Range Interpretation Comments Creatinine Lvl (test code = Creatinine 1.44 0.50-1.40 Lvl) [place] 466161-12-29 19:07:00 Test Item Value Reference Range Interpretation Comments Sodium Lvl (test code = Sodium Lvl) 132 135-145 [facility]2021-12-29 19:07:00 Test Item Value Reference Range Interpretation Comments Potassium Lvl (test code = Potassium 4.8 3.5-5.1 Lvl) [place] 466161-12-29 19:07:00 Test Item Value Reference Range Interpretation Comments Chloride Lvl (test code = Chloride Lvl) 99 95-109 [facility]2021-12-29 19:07:00 Test Item Value Reference Range Interpretation Comments CO2 (test code = CO2) 27 24-32 [place] 466161-12-29 19:07:00 Test Item Value Reference Range Interpretation Comments Calcium Lvl (test code = Calcium Lvl) 9.7 8.5-10.5 [place] 466161-12-29 19:07:00 Test Item Value Reference Range Interpretation Comments AGAP (test code = AGAP) 10.8 10.0-20.0 [place] 466161-12-29 19:07:00 Test Item Value Reference Range Interpretation Comments eGFR (test code = eGFR) 52 [place] 168131-12-29 19:07:00 Test Item Value Reference Range Interpretation Comments Segs (test code = Segs) 57.5 45.0-75.0 [place] 168131-12-29 19:07:00 Test Item Value Reference Range Interpretation Comments Lymphocytes (test code = Lymphocytes) 28.0 20.0-40.0 [place] 168131-12-29 19:07:00 Test Item Value Reference Range Interpretation Comments Monocytes (test code = Monocytes) 9.6 2.0-12.0 [place] 168131-12-29 19:07:00 Test Item Value Reference Range Interpretation Comments Eosinophils (test code = 4.4 See_Comment [A utomated message] The Eosinophils) system which ge nerated this result tra nsmitted reference range : <=4.0. The reference r glenn was not used to int erpret this result as normal/abnormal . [place] 168131-12-29 19:07:00 Test Item Value Reference Range Interpretation Comments Basophils (test code = 0.5 See_Comment [Aut omated message] The Basophils) system which ge nerated this result tra nsmitted reference range : <=1.0. The reference r glenn was not used to int erpret this result as normal/abnormal . [place] 168131-12-29 19:07:00 Test Item Value Reference Range Interpretation Comments Neutrophils # (test code = Neutrophils 3.3 1.5-8.1 #) [place] 168131-12-29 19:07:00 Test Item Value Reference Range Interpretation Comments Lymphocytes # (test code = Lymphocytes 1.6 1.0-5.5 #) [facility] HospitalAirrglpUEIBHTUHMY4780-98-64 19:07:00 Test Item Value Reference Range Interpretation Comments Monocytes # (test code 0.5 See_Comment [Aut omated message] The = Monocytes #) system which generated this result tra nsmitted reference range : <=0.8. The reference r glenn was not used to int erpret this result as normal/abnormal . [facility] HospitalWprsyahHDHWTNXVLJ6944-00-68 19:07:00 Test Item Value Reference Range Interpretation Comments Eosinophils # (test code 0.2 See_Comment [A utomated message] The = Eosinophils #) system whic h generated this result tra nsmitted reference range : <=0.5. The reference r glenn was not used to int erpret this result as normal/abnormal . [facility] HospitalBtzoxlfAAPRGLSLHZ7877-34-11 19:07:00 Test Item Value Reference Range Interpretation Comments WBC (test code = WBC) 5.7 3.7-10.4 [facility] HospitalPzrdzyhNKSKWTNJWN8296-45-28 19:07:00 Test Item Value Reference Range Interpretation Comments RBC (test code = RBC) 4.95 4.70-6.10 [facility]36[facility]62 19:07:00 Test Item Value Reference Range Interpretation Comments Hgb (test code = Hgb) 14.1 14.0-18.0 [place] 168131-12-29 19:07:00 Test Item Value Reference Range Interpretation Comments Hct (test code = Hct) 42.2 42.0-54.0 [place] 168131-12-29 19:07:00 Test Item Value Reference Range Interpretation Comments MCV (test code = MCV) 85.3 80.0-94.0 [place] 168131-12-29 19:07:00 Test Item Value Reference Range Interpretation Comments MCH (test code = MCH) 28.6 pg 27.0-31.0 [place] 168131-12-29 19:07:00 Test Item Value Reference Range Interpretation Comments MCHC (test code = MCHC) 33.5 32.0-36.0 [facility]URKSWJWHVE3376-64-15 19:07:00 Test Item Value Reference Range Interpretation Comments RDW (test code = RDW) 14.7 11.5-14.5 [facility]peQNUQLZMBKZ7240[facility]-23 19:07:00 Test Item Value Reference Range Interpretation Comments Platelet (test code = Platelet) 219 133-450 [facility]CbfhvfdRWMNDXTSHL2817-74-52 19:07:00 Test Item Value Reference Range Interpretation Comments MPV (test code = MPV) 8.2 7.4-10.4 [facility] TNYQDQMNK5057-04-06 19:07:00 Test Item Value Reference Range Interpretation Comments Hgb A1C (test code = Hgb A1C) 6.4 [facility] [id number] 19:07:00 Test Item Value Reference Range Interpretation Comments Glucose Lvl (test code = Glucose Lvl) 153 70-99 [facility]2021-12-29 19:07:00 Test Item Value Reference Range Interpretation Comments BUN (test code = BUN) 18 7-22 [facility]2021-12-29 19:07:00 Test Item Value Reference Range Interpretation Comments Creatinine Lvl (test code = Creatinine 1.44 0.50-1.40 Lvl) [facility]2021-12-29 19:07:00 Test Item Value Reference Range Interpretation Comments Sodium Lvl (test code = Sodium Lvl) 132 135-145 [facility]2021-12-29 19:07:00 Test Item Value Reference Range Interpretation Comments Potassium Lvl (test code = Potassium 4.8 3.5-5.1 Lvl) [facility]2021-12-29 19:07:00 Test Item Value Reference Range Interpretation Comments Chloride Lvl (test code = Chloride Lvl) 99 95-109 [facility]2021-12-29 19:07:00 Test Item Value Reference Range Interpretation Comments CO2 (test code = CO2) 27 24-32 [facility]2021-12-29 19:07:00 Test Item Value Reference Range Interpretation Comments Calcium Lvl (test code = Calcium Lvl) 9.7 8.5-10.5 [facility]2021-12-29 19:07:00 Test Item Value Reference Range Interpretation Comments AGAP (test code = AGAP) 10.8 10.0-20.0 [facility]2021-12-29 19:07:00 Test Item Value Reference Range Interpretation Comments eGFR (test code = eGFR) 52 [place] 168131-12-29 19:07:00 Test Item Value Reference Range Interpretation Comments Segs (test code = Segs) 57.5 45.0-75.0 [address]12-29 19:07:00 Test Item Value Reference Range Interpretation Comments Lymphocytes (test code = Lymphocytes) 28.0 20.0-40.0 [address]12-29 19:07:00 Test Item Value Reference Range Interpretation Comments Monocytes (test code = Monocytes) 9.6 2.0-12.0 [address]12-29 19:07:00 Test Item Value Reference Range Interpretation Comments Eosinophils (test code = Eosinophils) 4.4 <=4.0 [place] 168131-12-29 19:07:00 Test Item Value Reference Range Interpretation Comments Basophils (test code = Basophils) 0.5 <=1.0 [address]12-29 19:07:00 Test Item Value Reference Range Interpretation Comments Neutrophils # (test code = Neutrophils 3.3 1.5-8.1 #) [address]12-29 19:07:00 Test Item Value Reference Range Interpretation Comments Lymphocytes # (test code = Lymphocytes 1.6 1.0-5.5 #) [address]12-29 19:07:00 Test Item Value Reference Range Interpretation Comments Monocytes # (test code = Monocytes #) 0.5 <=0.8 [address]12-29 19:07:00 Test Item Value Reference Range Interpretation Comments Eosinophils # (test code = Eosinophils 0.2 <=0.5 #) [address]12-29 19:07:00 Test Item Value Reference Range Interpretation Comments WBC (test code = WBC) 5.7 3.7-10.4 [address]12-29 19:07:00 Test Item Value Reference Range Interpretation Comments RBC (test code = RBC) 4.95 4.70-6.10 [place] 168131-12-29 19:07:00 Test Item Value Reference Range Interpretation Comments Hgb (test code = Hgb) 14.1 14.0-18.0 [facility]coeprdNOWQOTAYJQ7967-78-64 19:07:00 Test Item Value Reference Range Interpretation Comments Hct (test code = Hct) 42.2 42.0-54.0 [facility] CenterSbypxrmDCWLEGYTCF5061-59-10 19:07:00 Test Item Value Reference Range Interpretation Comments MCV (test code = MCV) 85.3 80.0-94.0 [facility] CenterZcrrccqHVQDOQMEFR0080-44-15 19:07:00 Test Item Value Reference Range Interpretation Comments MCH (test code = MCH) 28.6 pg 27.0-31.0 [facility] RenaissanceEmcghmyEVEKSMWKMB6563-17-05 19:07:00 Test Item Value Reference Range Interpretation Comments MCHC (test code = MCHC) 33.5 32.0-36.0 [facility] CenterZhhkflaDWMEVMOWDO3550-57-57 19:07:00 Test Item Value Reference Range Interpretation Comments RDW (test code = RDW) 14.7 11.5-14.5 [facility] CenterMdrryhfCVOHNAPAWI5661-87-70 19:07:00 Test Item Value Reference Range Interpretation Comments Platelet (test code = Platelet) 219 133-450 [facility] CenterXzungguMXIIZLZWIW9579-89-32 19:07:00 Test Item Value Reference Range Interpretation Comments MPV (test code = MPV) 8.2 7.4-10.4 [facility] CFGDBATFQ6453-64-07 19:07:00 Test Item Value Reference Range Interpretation Comments Hgb A1C (test code = Hgb A1C) 6.4 [facility] [id number] 19:07:00 Test Item Value Reference Range Interpretation Comments Glucose Lvl (test code = Glucose Lvl) 153 70-99 [facility] [id number] 19:07:00 Test Item Value Reference Range Interpretation Comments BUN (test code = BUN) 18 7-22 [facility] [id number] 19:07:00 Test Item Value Reference Range Interpretation Comments Creatinine Lvl (test code = Creatinine 1.44 0.50-1.40 Lvl) [facility] [id number] 19:07:00 Test Item Value Reference Range Interpretation Comments Sodium Lvl (test code = Sodium Lvl) 132 135-145 [facility] [id number] 19:07:00 Test Item Value Reference Range Interpretation Comments Potassium Lvl (test code = Potassium 4.8 3.5-5.1 Lvl) [place] 466161-12-29 19:07:00 Test Item Value Reference Range Interpretation Comments Chloride Lvl (test code = Chloride Lvl) 99 95-109 [place] 466161-12-29 19:07:00 Test Item Value Reference Range Interpretation Comments CO2 (test code = CO2) 27 24-32 [place] 466161-12-29 19:07:00 Test Item Value Reference Range Interpretation Comments Calcium Lvl (test code = Calcium Lvl) 9.7 8.5-10.5 [place] 466161-12-29 19:07:00 Test Item Value Reference Range Interpretation Comments AGAP (test code = AGAP) 10.8 10.0-20.0 [place] 466161-12-29 19:07:00 Test Item Value Reference Range Interpretation Comments eGFR (test code = eGFR) 52 [place] 168131-12-29 19:07:00 Test Item Value Reference Range Interpretation Comments Segs (test code = Segs) 57.5 45.0-75.0 [place] 168131-12-29 19:07:00 Test Item Value Reference Range Interpretation Comments Lymphocytes (test code = Lymphocytes) 28.0 20.0-40.0 [place] 168131-12-29 19:07:00 Test Item Value Reference Range Interpretation Comments Monocytes (test code = Monocytes) 9.6 2.0-12.0 [place] 168131-12-29 19:07:00 Test Item Value Reference Range Interpretation Comments Eosinophils (test code = 4.4 See_Comment [A utomated message] The Eosinophils) system which nerated this result tra nsmitted reference range : <=4.0. The reference r glenn was not used to int erpret this result as normal/abnormal . [place] 168131-12-29 19:07:00 Test Item Value Reference Range Interpretation Comments Basophils (test code = 0.5 See_Comment [Aut omated message] The Basophils) system which ge nerated this result tra nsmitted reference range : <=1.0. The reference r glenn was not used to int erpret this result as normal/abnormal . [place] [address]-12-29 19:07:00 Test Item Value Reference Range Interpretation Comments Neutrophils # (test code = Neutrophils 3.3 1.5-8.1 #) [facility]ge[facility]xyOZOWKPUINO8107-40-64 19:07:00 Test Item Value Reference Range Interpretation Comments Lymphocytes # (test code = Lymphocytes 1.6 1.0-5.5 #) [facility]IwjogymFZZLUOCUZI0541-33-29 19:07:00 Test Item Value Reference Range Interpretation Comments Monocytes # (test code 0.5 See_Comment [Aut omated message] The = Monocytes #) system which generated this result tra nsmitted reference range : <=0.8. The reference r glenn was not used to int erpret this result as normal/abnormal . [place] 168131-12-29 19:07:00 Test Item Value Reference Range Interpretation Comments Eosinophils # (test code 0.2 See_Comment [A utomated message] The = Eosinophils #) system whic h generated this result tra nsmitted reference range : <=0.5. The reference r glenn was not used to int erpret this result as normal/abnormal . [facility] HospitalJhkjuxwRHISJUEWLR3090-46-66 19:07:00 Test Item Value Reference Range Interpretation Comments WBC (test code = WBC) 5.7 3.7-10.4 [facility] HospitalDiiqocjFWXLPEYPVC3113-72-70 19:07:00 Test Item Value Reference Range Interpretation Comments RBC (test code = RBC) 4.95 4.70-6.10 [place] 168131-12-29 19:07:00 Test Item Value Reference Range Interpretation Comments Hgb (test code = Hgb) 14.1 14.0-18.0 [place] 168131-12-29 19:07:00 Test Item Value Reference Range Interpretation Comments Hct (test code = Hct) 42.2 42.0-54.0 [place] 168131-12-29 19:07:00 Test Item Value Reference Range Interpretation Comments MCV (test code = MCV) 85.3 80.0-94.0 [place] 168131-12-29 19:07:00 Test Item Value Reference Range Interpretation Comments MCH (test code = MCH) 28.6 pg 27.0-31.0 [place] 168131-12-29 19:07:00 Test Item Value Reference Range Interpretation Comments MCHC (test code = MCHC) 33.5 32.0-36.0 [facility] CenterDmazfftZPOUTRCRLQ2575-94-68 19:07:00 Test Item Value Reference Range Interpretation Comments RDW (test code = RDW) 14.7 11.5-14.5 [facility] RenaissanceFderlohOIWHPNIGGZ7471-35-34 19:07:00 Test Item Value Reference Range Interpretation Comments Platelet (test code = Platelet) 219 133-450 [facility] RenaissanceEfuhpkrWMHCRTPZOB9527-15-37 19:07:00 Test Item Value Reference Range Interpretation Comments MPV (test code = MPV) 8.2 7.4-10.4 [facility] [id number] 19:07:00 Test Item Value Reference Range Interpretation Comments Hgb A1C (test code = Hgb A1C) 6.4 [facility] [id number] 19:07:00 Test Item Value Reference Range Interpretation Comments Glucose Lvl (test code = Glucose Lvl) 153 70-99 [facility] HXOEK7267-19-37 19:07:00 Test Item Value Reference Range Interpretation Comments BUN (test code = BUN) 18 7-22 [facility]2021-12-29 19:07:00 Test Item Value Reference Range Interpretation Comments Creatinine Lvl (test code = Creatinine 1.44 0.50-1.40 Lvl) [facility]2021-12-29 19:07:00 Test Item Value Reference Range Interpretation Comments Sodium Lvl (test code = Sodium Lvl) 132 135-145 [facility] [id number] 19:07:00 Test Item Value Reference Range Interpretation Comments Potassium Lvl (test code = Potassium 4.8 3.5-5.1 Lvl) [facility] [id number] 19:07:00 Test Item Value Reference Range Interpretation Comments Chloride Lvl (test code = Chloride Lvl) 99 95-109 [facility] [id number] 19:07:00 Test Item Value Reference Range Interpretation Comments CO2 (test code = CO2) 27 24-32 [facility] [id number] 19:07:00 Test Item Value Reference Range Interpretation Comments Calcium Lvl (test code = Calcium Lvl) 9.7 8.5-10.5 [place] 466161-12-29 19:07:00 Test Item Value Reference Range Interpretation Comments AGAP (test code = AGAP) 10.8 10.0-20.0 [place] 466161-12-29 19:07:00 Test Item Value Reference Range Interpretation Comments eGFR (test code = eGFR) 52 [place] 168131-12-29 19:07:00 Test Item Value Reference Range Interpretation Comments Segs (test code = Segs) 57.5 45.0-75.0 [place] 168131-12-29 19:07:00 Test Item Value Reference Range Interpretation Comments Lymphocytes (test code = Lymphocytes) 28.0 20.0-40.0 [place] 168131-12-29 19:07:00 Test Item Value Reference Range Interpretation Comments Monocytes (test code = Monocytes) 9.6 2.0-12.0 [place] 168131-12-29 19:07:00 Test Item Value Reference Range Interpretation Comments Eosinophils (test code = 4.4 See_Comment [A utomated message] The Eosinophils) system which ge nerated this result tra nsmitted reference range : <=4.0. The reference r glenn was not used to int erpret this result as normal/abnormal . [place] 168131-12-29 19:07:00 Test Item Value Reference Range Interpretation Comments Basophils (test code = 0.5 See_Comment [Aut omated message] The Basophils) system which ge nerated this result tra nsmitted reference range : <=1.0. The reference r glenn was not used to int erpret this result as normal/abnormal . [facility] HospitalDskiwepFLNFSEGIVE3617-94-84 19:07:00 Test Item Value Reference Range Interpretation Comments Neutrophils # (test code = Neutrophils 3.3 1.5-8.1 #) [place] 168131-12-29 19:07:00 Test Item Value Reference Range Interpretation Comments Lymphocytes # (test code = Lymphocytes 1.6 1.0-5.5 #) [place] 168131-12-29 19:07:00 Test Item Value Reference Range Interpretation Comments Monocytes # (test code 0.5 See_Comment [Aut omated message] The = Monocytes #) system which generated this result tra nsmitted reference range : <=0.8. The reference r glenn was not used to int erpret this result as normal/abnormal . [facility] HospitalBgrcjkcRYNXTZJUSG1311-31-68 19:07:00 Test Item Value Reference Range Interpretation Comments Eosinophils # (test code 0.2 See_Comment [A utomated message] The = Eosinophils #) system whic h generated this result tra nsmitted reference range : <=0.5. The reference r glenn was not used to int erpret this result as normal/abnormal . [facility] HospitalRkjpiabZBKJNHRWFF5273-45-73 19:07:00 Test Item Value Reference Range Interpretation Comments WBC (test code = WBC) 5.7 3.7-10.4 [facility] HospitalJsaemjkLCEBXILJWR9057-17-40 19:07:00 Test Item Value Reference Range Interpretation Comments RBC (test code = RBC) 4.95 4.70-6.10 [facility]-COV 2 AntigenSARS-COV 2 Antigen
[2023-07-30] MEDS ORDERED: MORPHINE 4 MG/ML SYR ONE ×2 (14:53→16:22)
[2023-07-30] MEDS ORDERED: ONDANSETRON 4 MG/2 ML VIAL ONE (14:54)
[2023-07-30 15:04] LABS: Absolute Lymphocytes (CBC) 1.6 K/uL (0.7-4.9); Hematocrit 39.3 % (39.6-49.0); Lymphocytes % 22.8 % (15.3-44.8); MCV 82.8 fL (80-100); Platelets 207 thou/uL (152-406); RBC Red Blood Cell Count 4.74 M/uL (4.33-5.43)
[2023-07-30 15:22] LABS: Albumin 3.6 g/dL (3.4-5.0); Bilirubin Total 0.5 mg/dL (0.2-1.0); Potassium 3.7 mEq/L (3.5-5.1); Protein, Total 7.9 g/dL (6.4-8.2)
[2023-07-30 15:43] LABS: Specific Gravity 1.006 (1.005-1.030); Urine Bilirubin NEGATIVE (Negative); Urine Blood Negative (Negative); Urine Clarity Clear (Clear); Urine Color Colorless (Yellow); Urine Glucose NEGATIVE (Negative); Urine Protein NEGATIVE (Negative); Urine Urobilinogen Normal (Normal)
--- NOTE | 2023-07-30 16:15 | RAD REPORT ---
EXAM DESCRIPTION: CT - Abdomen Pelvis W Contrast - 07/30/2023 3:48 pm CLINICAL HISTORY: Abdominal pain/right lower quadrant pain COMPARISON: January 2023 TECHNIQUE: Computed axial tomography of the abdomen pelvis was obtained. 100 cc Isovue-300 was admin istered intravenously. Oral contrast was not requested which limits evaluation of bowel and appendix All CT scans are performed using dose optimization technique as appropriate and may include automated exposure control or mA/KV adjustment according to patient size. FINDINGS: The liver, spleen, pancreas, adrenals and right kidney unremarkable. A 3 centimeter left renal cyst. Filter within the IVC. Cholecystectomy Postsurgical changes lumbar spine Normal appendix No evidence of diverticulitis. The prostate gland is moderately enlarged. Small left inguinal hernia Neurostimulator device in place Cement has been placed into an L1 vertebral fracture IMPRESSION: No acute abnormality is displayed.
--- NOTE | 2023-07-30 16:44 | EDPHYS ---
Physician Documentation [facility] Name: Moshe Ewing Age: 62 yrs Sex: Male : 1960 Arrival Date: 07/30/2023 Time: 14:20 Bed 19 Private MD: ED Physician Wiliam Mann HPI: 07/30 14:47 This 62 yrs old Male presents to ER via Unassigned with complaints of abd pain. rn 14:47 The patient presents with abdominal pain right lower quadrant. Onset: The rn symptoms/episode began/occurred this morning. The symptoms do not radiate. Associated signs and symptoms: Pertinent positives: nausea, Pertinent negatives: blood in stools, chest pain, constipation, fever, shortness of breath, testicular pain. The symptoms are described as constant, sharp, stabbing. Modifying factors: The symptoms are alleviated by nothing, the symptoms are aggravated by movement, touching the area. Severity of pain: At its worst the pain was moderate in the emergency department the pain is unchanged. The patient has not experienced similar symptoms in the past. The patient has not recently seen a physician. Patient reports right lower quadrant abdominal pain and nausea that began this morning.. Historical: - Allergies: 14:30 amlodipine; eh3 14:30 lidocaine patch; eh3 - PMHx: 14:30 chronic neck pain; Diabetes - NIDDM; DVT; Hypercholesterolemia; Hypertension; eh3 Hypothyroidism; - PSHx: 14:30 back sx; cadriac stent; Cholecystectomy; external loop recorder; L hand SX with plates eh3 placed; foot/shoulder SX; R BKA; stimulator R back for legs; - Immunization history:: Adult Immunizations unknown. - Social history:: Smoking status: unknown. - Family history:: not pertinent. - Hospitalizations: : No recent hospitalization is reported. ROS: 14:47 Constitutional: Negative for fever, chills, and weight loss, Cardiovascular: Negative rn for chest pain, palpitations, and edema, Respiratory: Negative for shortness of breath, cough, wheezing, and pleuritic chest pain, Abdomen/GI: Positive for abdominal pain and nausea Back: Negative for injury and pain, : Negative for injury, bleeding, discharge, and swelling, MS/Extremity: Negative for injury and deformity, Skin: Negative for injury, rash, and discoloration, Neuro: Negative for headache, weakness, numbness, tingling, and seizure, Exam: 14:47 Constitutional: This is a well developed, well nourished patient who is awake, alert, rn appears in pain Head/Face: Normocephalic, atraumatic. Cardiovascular: Regular rate and rhythm. No pulse deficits. Respiratory: No increased work of breathing, no retractions or nasal flaring. Abdomen/GI: Soft, right lower quadrant tenderness with guarding, no peritoneal signs Skin: Warm, dry MS/ Extremity: Pulses equal, no cyanosis. Neuro: Awake and alert, GCS 15 Vital Signs: 14:30 BP 157 / 97; Pulse 80; Resp 18; Temp 98.4(O); Pulse Ox 97% on R/A; eh3 15:30 BP 131 / 88; Pulse 77; Resp 18; Pulse Ox 95% on R/A; eh3 MDM: 14:36 Patient medically screened. rn 16:38 Differential diagnosis: appendicitis, bowel obstruction, diverticulitis, gastritis, rn gastroesophageal reflux disease, non-specific abd pain, pancreatitis, Peptic Ulcer Disease, Perf. Duodenal Ulcer, Perf. Gastric Ulcer, Ureterolithiasis, urinary tract infection. Data reviewed: vital signs, nurses notes, lab test result(s), radiologic studies, CT scan, and as a result, I will admit patient. Consideration of Admission/Observation Patient was admitted/placed on observation. Escalation of care including admission/observation considered. Management of patient was discussed with the following: Hospitalist: Consulted with hospitalist Dr. Pichardo, will observation for pain control and consultation with Dr. Garsia. Trenching Machine Operator: Discussed case with Dr. Garsia, will see patient.. Counseling: I had a detailed discussion with the patient and/or guardian regarding the historical points, exam findings, and any diagnostic results supporting the discharge/admit diagnosis, lab results, radiology results, the need for further work-up and treatment in the hospital. Response to treatment: the patient's symptoms have mildly improved after treatment, and as a result, I will admit patient. ED course: No acute findings on work-up. Patient still in pain out of proportion to normal findings. Will Labs for pain control and consultation.. 17:31 ED course: Patient admitted to hospitalist service for further work-up. Dr. Pichardo came rn downstairs and evaluated patient personally, consulted with Dr. Garsia, spoke at length with patient and states will discharge home. He spoke with patient and explained everything and they had a joint decision that he would go home and not be admitted.. 07/30 14:36 Order name: CBC with Diff; Complete Time: 15:36 rn 07/30 14:36 Order name: CMP; Complete Time: 15:36 rn 07/30 14:36 Order name: Lipase; Complete Time: 15:36 rn 07/30 14:36 Order name: Urinalysis w/ reflexes; Complete Time: 15:51 rn 07/30 16:48 Order name: Troponin High Sensitivity; Complete Time: 17:30 3 07/30 14:36 Order name: CT Abd/Pelvis - IV Contrast Only; Complete Time: 16:20 rn 07/30 14:36 Order name: IV Saline Lock; Complete Time: 14:41 rn 07/30 14:36 Order name: Labs collected and sent; Complete Time: 14:51 rn 07/30 14:36 Order name: NPO; Complete Time: 14:38 rn Administered Medications: 14:45 Drug: Ondansetron IVP 4 mg IVP once; over 2 minutes Route: IVP; Site: right wrist; 3 16:00 Follow up: Response: No adverse reaction; Nausea is decreased 3 14:45 Drug: morphine IVP or IV 4 mg IVP once over 4 mins Route: IVP; Infused Over: 4 mins; 3 Site: right wrist; 16:00 Follow up: Response: No adverse reaction; Pain is unchanged, physician notified 3 16:13 Drug: morphine IVP or IV 4 mg IVP once over 4 mins Route: IVP; Infused Over: 4 mins; 3 Site: right wrist; 17:00 Follow up: Response: No adverse reaction 3 Disposition Summary: 07/30/23 17:33 Discharge Ordered Notes: Location: Home(07/30/23 17:33) rn Problem: new(07/30/23 17:33) rn Symptoms: have improved(07/30/23 17:33) rn Condition: Stable(07/30/23 17:33) rn Diagnosis - Abdominal pain, unspecified(07/30/23 17:33) rn Followup: rn - With: Luis Condon MD - When: As needed - Reason: Recheck today's complaints, Re-evaluation by your physician Followup: rn - With: Haseeb Garsia MD - When: As needed - Reason: Recheck today's complaints, Re-evaluation by your physician Discharge Instructions: - Discharge Summary Sheet rn - Abdominal Pain, Adult rn - Pain Without a Known Cause rn Forms: - Medication Reconciliation Form rn - Thank You Letter rn - Antibiotic learning strategist - Prescription Opioid Use rn - Patient Portal Instructions rn - Leadership Thank You Letter rn Signatures: Dispatcher [employer] EDWiliam Sethi MD MD rn Hall, Erin, RN RN eh3 Corrections: (The following items were deleted from the chart) 17:32 16:43 Observation rn rn 17:32 16:43 Michel Pichardo rn rn 17:32 16:43 Telemetry/MedSurg (observation) rn rn 17:32 16:43 Stable rn rn 17:32 16:43 new rn rn 17:32 16:43 have improved rn rn 17:32 16:43 Standard rn rn 17:32 16:43 rn rn 17:32 16:43 Abdominal pain, unspecified rn rn 17:32 16:43 Intractable Pain rn rn
--- NOTE | 2023-07-30 16:44 | ER ---
Nurse's Notes [facility] Name: Moshe Ewing Age: 62 yrs Sex: Male : 1960 Arrival Date: 07/30/2023 Time: 14:20 Bed 19 Private MD: Diagnosis: Abdominal pain, unspecified Presentation: 07/30 14:30 Chief complaint: EMS states: toned out to home for RLQ pain and nausea that started at 3 1230 today. Coronavirus screen: Vaccine status: Patient reports being unvaccinated. Ebola Screen: No symptoms or risks identified at this time. Initial Sepsis Screen: Does the patient meet any 2 criteria? No. Patient's initial sepsis screen is negative. Does the patient have a suspected source of infection? No. Patient's initial sepsis screen is negative. Risk Assessment: Do you want to hurt yourself or someone else? Patient reports no desire to harm self or others. Onset of symptoms was July 30, 2023. 14:30 Method Of Arrival: EMS: [place] [id number] 14:30 Acuity: MYRIAM 3 [facility] 14:30 Care prior to arrival: IV initiated. 20 GA, in the right wrist. 3 Triage Assessment: 14:30 General: Appears distressed, uncomfortable, Behavior is cooperative, restless. Pain: 3 Complains of pain in right lower quadrant. Neuro: Level of Consciousness is awake, alert, obeys commands, Oriented to person, place, time, situation. Cardiovascular: Capillary refill < 3 seconds Patient's skin is warm and dry. Respiratory: Airway is patent Respiratory effort is even, unlabored, Respiratory pattern is regular, symmetrical. GI: Abdomen is round non-distended, Abd is soft X 4 quads Abdomen is tender to palpation in right lower quadrant. Derm: Skin is pink, warm \T\ dry. Musculoskeletal: Amputation of right below the knee Circulation, motion, and sensation intact. Historical: - Allergies: 14:30 amlodipine; eh3 14:30 lidocaine patch; eh3 - PMHx: 14:30 chronic neck pain; Diabetes - NIDDM; DVT; Hypercholesterolemia; Hypertension; eh3 Hypothyroidism; - PSHx: 14:30 back sx; cadriac stent; Cholecystectomy; external loop recorder; L hand SX with plates eh3 placed; foot/shoulder SX; R BKA; stimulator R back for legs; - Immunization history:: Adult Immunizations unknown. - Social history:: Smoking status: unknown. - Family history:: not pertinent. - Hospitalizations: : No recent hospitalization is reported. Screenin:30 [facility] ED Fall Risk Assessment (Adult) Score/Fall Risk Level 0 - 2 = Low Risk. Abuse eh3 screen: Denies threats or abuse. Denies injuries from another. Nutritional screening: No deficits noted. Tuberculosis screening: No symptoms or risk factors identified. Assessment: 14:30 Reassessment: No changes from previously documented assessment. See triage assessment. eh3 GI: Bowel sounds present X 4 quads. Vital Signs: 14:30 BP 157 / 97; Pulse 80; Resp 18; Temp 98.4(O); Pulse Ox 97% on R/A; eh3 15:30 BP 131 / 88; Pulse 77; Resp 18; Pulse Ox 95% on R/A; eh3 ED Course: 14:30 Arm band placed on. eh3 14:30 Patient has correct armband on for positive identification. Bed in low position. Call eh3 light in reach. Side rails up X2. Provided Education on: use of call horne. Client placed on continuous cardiac and pulse oximetry monitoring. NIBP monitoring applied. 14:36 Patient arrived in ED. rn 14:36 Wiliam Mann MD is Attending Physician. rn 14:38 Noelle Encinas, FANNY is Primary Nurse. eh3 15:26 Triage completed. eh3 15:[address] via stretcher. ls3 15:48 CT completed. Patient tolerated procedure well. Patient moved back from CT. ls3 15:50 CT Abd/Pelvis - IV Contrast Only In Process Unspecified. EDMS 16:43 Michel iPchardo is Hospitalizing Provider. rn 17:32 Luis Condon MD is Referral Physician. rn 17:32 Haseeb Garsia MD is Referral Physician. rn 18:00 No provider procedures requiring assistance completed. IV discontinued, intact, eh3 bleeding controlled, No redness/swelling at site. Pressure dressing applied. Administered Medications: 14:45 Drug: Ondansetron IVP 4 mg IVP once; over 2 minutes Route: IVP; Site: right wrist; eh3 16:00 Follow up: Response: No adverse reaction; Nausea is decreased eh3 14:45 Drug: morphine IVP or IV 4 mg IVP once over 4 mins Route: IVP; Infused Over: 4 mins; 3 Site: right wrist; 16:00 Follow up: Response: No adverse reaction; Pain is unchanged, physician notified 3 16:13 Drug: morphine IVP or IV 4 mg IVP once over 4 mins Route: IVP; Infused Over: 4 mins; eh3 Site: right wrist; 17:00 Follow up: Response: No adverse reaction 3 Medication: 18:00 VIS not applicable for this client. 3 Outcome: 16:43 Decision to Hospitalize by Provider. rn 17:33 Discharge ordered by MD. rn 18:00 Discharged to home [facility] 18:00 Condition: stable 18:00 Discharge instructions given to patient, Instructed on discharge instructions, follow up and referral plans. Demonstrated understanding of instructions, follow-up care, 18:14 Patient left the ED. Signatures: Dispatcher [employer] EDMS Wiliam Mann MD MD rn Baxter, Heather, RN RN Aramis Pugh 3 Noelle Encinas RN RN 3 Corrections: (The following items were deleted from the chart) 15:28 14:30 Musculoskeletal: Circulation, motion, and sensation intact. 3 3
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
[2023-07-30 18:26] VITALS: TEMP 98.4
[2023-07-30 18:27] VITALS: BP 131/88; O2SAT 95
== END 2023-07-30 18:14 | disposition home or self-care (01) ==
LOC: ER 14:20
DX: R10.31 Right lower quadrant pain (principal); E11.9 Type 2 diabetes mellitus without complications; E78.00 Pure hypercholesterolemia, unspecified; I10 Essential (primary) hypertension; E03.9 Hypothyroidism, unspecified; Z88.8 Allergy status to other drugs, medicaments and biological substances
CPT/HCPCS: 85025; 36415; 81003; 84484; 83690; 80053; 74177; 96375; 96374; 99284; Q9967; J2405

== ENCOUNTER 2023-08-02 08:05 | Day surgery (SDC) | payer OTHER ==
[2023-08-02 08:59] LABS: Protime INR 1.11
[2023-08-02 09:13] VITALS: BP 124/73; TEMP 98; O2SAT 100; BMI 27.8
[2023-08-02 09:30] LABS: MPV 7.9 fL (7.6-11.3); Platelets 196 thou/uL (152-406)
--- NOTE | 2023-08-02 11:56 | RAD REPORT ---
EXAM DESCRIPTION: RAD - Lumbar Spine 3 Views - 08/02/2023 11:37 am CLINICAL HISTORY: CERVICAL RADICULOPATHY Radiculopathy COMPARISON: Lumbar Spine 3 Views dated 06/03/2022; Lumbar Spine 3 Views dated 08/30/2020 FINDINGS: Vertebroplasty cement is noted L1. Posterior fusion with hardware in place is present span cory L4-5. There is significant degenerative change present throughout the lumbar spine. A stimulator device is present posteriorly. Vena cava filter also present. IMPRESSION: Advanced multilevel lumbar degenerative changes with postsurgical lower lumbar spine j luis dent. L1 vertebroplasty cement noted.
--- NOTE | 2023-08-02 12:18 | RAD REPORT ---
EXAM DESCRIPTION: CT - C Spine Wo Con - 08/02/2023 11:24 am CLINICAL HISTORY: Cervical radiculopathy COMPARISON: C Spine Wo Con dated 03/23/2023; C Spine Wo Con dated 12/18/2022; Neck Angio dated ; C Spine Wo Con dated 11/25/2022 FINDINGS: Due to the extensive postsurgical changes in the lumbar spine, no fluoroscopic window was available for lumbar puncture for myelographic contrast injection. Craniocervical junction is unremarkable. No foramen magnum narrowing. Significant atherosclerosis of both vertebral arteries evident. C2-3: Small posterior osteophyte/disc complex is present with mild left-sided facet spurring resultin g in mild left-sided foraminal encroachment. Significant central canal narrowing. C3-4: Small posterior osteophyte/disc complex is present with left-sided uncovertebral and facet spur ring. There is slight left-sided exit foraminal narrowing seen. C4-5: Small to moderate posterior osteophyte/disc complex is present. Bilateral uncovertebral and fac et spurring slightly greater on the right noted. There is mild right-sided exit foraminal narrowing. C5-6: Small to moderate posterior osteophyte/disc complex is present this results in mild central can al narrowing. No significant exit foraminal stenosis. Prominent anterior osteophyte present at this l evel. C6-7: Small posterior osteophyte/disc complex is present. This does not result in significant central canal stenosis. No significant exit foraminal stenosis. Prominent anterior osteophyte is noted. C7-T1: Small posterior osteophyte/disc complex is present without significant canal or foraminal sten osis. Prevertebral soft tissues are normal in thickness. IMPRESSION: Mild cervical spondylosis is present most notable the lower levels. Overall, there is no severe canal or foraminal stenosis detected at any level. Due to significant postsurgical changes and degenerative changes in the lumbar spine region, an adequ ate window for lumbar puncture was not available for contrast injection. All CT scans are performed using dose optimization technique as appropriate and may include automated exposure control or mA/KV adjustment according to patient size.
== END 2023-08-02 11:36 | disposition home or self-care (01) ==
LOC: DS 08:05
PROVIDERS: ATTEND Neurological Surgery
DX: M47.22 Other spondylosis with radiculopathy, cervical region (principal); Z53.9 Procedure and treatment not carried out, unspecified reason
CPT/HCPCS: 36415; 72100; 72125; 85049; 85610; 85730

== ENCOUNTER 2023-10-21 23:56 | Inpatient (IN) | payer OTHER ==
[2023-10-22] MEDS ORDERED: ASPIRIN 81 MG CHEWABLE TABLET ONE (00:26)
[2023-10-22] MEDS ORDERED: MORPHINE 2 MG/ML SYR ONE (00:27)
[2023-10-22] MEDS ORDERED: NITROGLYCERIN 1 GM PKT TD ONE (00:41)
[2023-10-22 01:02] LABS: Absolute Lymphocytes (CBC) 1.6 K/uL (0.7-4.9); Hematocrit 38.9 % (39.6-49.0); Lymphocytes % 21.6 % (15.3-44.8); MCV 83.6 fL (80-100); MPV 7.5 fL (7.6-11.3); Platelets 212 thou/uL (152-406); RBC Red Blood Cell Count 4.65 M/uL (4.33-5.43)
[2023-10-22 01:09] LABS: Protime INR 1.08
[2023-10-22] MEDS ORDERED: MORPHINE 4 MG/ML SYR ONE (01:18)
[2023-10-22 01:24] LABS: ALT/SGPT 18 U/L (16-61); AST/SGOT 12 U/L (15-37); Albumin 3.4 g/dL (3.4-5.0); Alkaline Phosphatase 69 U/L (45-117); BUN Blood Urea Nitrogen 18 mg/dL (7-18); Bicarbonate 23 mEq/L (21-32); Bilirubin Total 0.3 mg/dL (0.2-1.0); Glomerular Filtration Rate 64 ml/min (=/>90); Glucose Level 103 mg/dL (74-106); Magnesium 2.2 mg/dL (1.6-2.4); Protein, Total 7.3 g/dL (6.4-8.2); Sodium Level 136 mEq/L (136-145); Troponin High Sensitivity 5.8 pg/mL (<58.9)
[2023-10-22 01:27] LABS: Bilirubin Direct < 0.1 mg/dL (0-0.2); Bilirubin Indirect, Calculated ND mg/dL (0.2-0.8)
--- NOTE | 2023-10-22 04:37 | EDPHYS ---
Physician Documentation [facility] Name: Moshe Ewing Age: 62 yrs Sex: Male : 1960 Arrival Date: 10/21/2023 Time: 23:56 Bed 2 Private MD: ED Physician Alejo Barker HPI: 10/22 00:18 This 62 yrs old Male presents to ER via Unassigned with complaints of Chest Pain. cp 00:18 The patient or guardian reports chest pain that is located primarily in the anterior cp chest wall, left. Onset: last night, about 2200. 00:18 The pain does not radiate. cp 00:18 Duration: The patient or guardian reports a single episode, now markedly improved. cp Historical: - Allergies: 00:18 amlodipine; jw7 00:18 lidocaine patch; jw7 - Home Meds: 00:18 Aspirin Oral [Active]; clopidogrel oral [Active]; finasteride oral [Active]; Folic Acid jw7 Oral [Active]; levothyroxine oral [Active]; losartan oral [Active]; Lovastatin Oral [Active]; Metformin Oral [Active]; tamsulosin oral [Active]; Vitamin D Oral [Active]; - PMHx: 00:18 chronic neck pain; Diabetes - NIDDM; DVT; Hypercholesterolemia; Hypertension; jw7 Hypothyroidism; Enlarged Prostate (Hypothyroidism); - PSHx: 00:18 back sx; cadriac stent; Cholecystectomy; external loop recorder; foot/shoulder SX; L jw7 hand SX with plates placed; R BKA; stimulator R back for legs; Right Leg Amputation Below the knee (stimulator R back for legs); - Immunization history:: Adult Immunizations up to date, Client reports having NOT received the Covid vaccine. Last tetanus immunization: up to date Flu vaccine is not up to date. - Social history:: Smoking status: Patient denies any tobacco usage or history of. Patient/guardian denies using alcohol, street drugs, IV drugs. ROS: 00:25 Constitutional: Negative for body aches, chills, fever, poor PO intake, cp 00:25 Eyes: Negative for injury, pain, redness, and discharge, cp 00:25 ENT: Negative for drainage from ear(s), ear pain, sore throat, difficulty swallowing, difficulty handling secretions, 00:25 Cardiovascular: Positive for chest pain, Negative for edema, palpitations, 00:25 Respiratory: Negative for cough, shortness of breath, wheezing, 00:25 Abdomen/GI: Negative for abdominal pain, vomiting, diarrhea, constipation, 00:25 Back: Negative for pain at rest, pain with movement, 00:25 Neuro: Negative for altered mental status, dizziness, headache, syncope, weakness, 00:25 All other systems are negative, Exam: 00:12 ECG was reviewed by the Attending Physician. cp 00:30 Constitutional: The patient appears in no acute distress, alert, awake, cp non-diaphoretic, non-toxic, well developed, well nourished, 00:30 Head/Face: Normocephalic, atraumatic. cp 00:30 Eyes: Periorbital structures: appear normal, Conjunctiva: normal, no exudate, no injection, Sclera: no appreciated abnormality, Lids and lashes: appear normal, bilaterally, 00:30 ENT: External ear(s): are unremarkable, Nose: is normal, Mouth: Lips: moist, Oral mucosa: pink and intact, moist, Posterior pharynx: is normal, airway is patent, no erythema, no exudate, 00:30 Neck: ROM/movement: is normal, is supple, without pain, no range of motions limitations, 00:30 Chest/axilla: Inspection: normal, Palpation: is normal, no crepitus, no tenderness, 00:30 Cardiovascular: Rate: normal, Rhythm: regular, Edema: is not appreciated, JVD: is not appreciated, 00:30 Respiratory: the patient does not display signs of respiratory distress, Respirations: labored breathing, is not present, shallow respirations, that is mild, Breath sounds: are clear throughout, no decreased breath sounds, no stridor, no wheezing, 00:30 Abdomen/GI: Inspection: abdomen appears normal, Palpation: abdomen is soft and non-tender, in all quadrants, 00:30 Back: pain, is absent, ROM is normal, 00:30 Neuro: Orientation: to person, place \T\ time. Mentation: is normal, Motor: moves all fours, strength is normal, 00:45 ECG was reviewed by the Attending Physician. cp Vital Signs: 10/21 23:45 BP 138 / 92; Pulse 68; Resp 19 S; Temp 97.9(O); Pulse Ox 98% on R/A; Weight 90.72 kg; jw7 Height 5 ft. 9 in. ; Pain 4/10; 10/22 01:08 BP 139 / 122; Pulse 62; Resp 11; Pulse Ox 98% on R/A; Pain 9/10; tm6 01:10 BP 156 / 96; Pulse 73; Resp 13 S; Pulse Ox 98% on R/A; jw7 02:14 BP 150 / 91; Pulse 69; Resp 14; Pulse Ox 98% on R/A; Pain 9/10; tm6 03:22 Pulse 59; Resp 13; tm6 04:00 BP 148 / 95; Pulse 56; Resp 17 S; Pulse Ox 97% on R/A; jw7 05:00 BP 134 / 91; Pulse 56; Resp 16 S; Pulse Ox 98% on R/A; jw7 06:00 BP 140 / 96; Pulse 54; Resp 16 S; Pulse Ox 95% on R/A; 7 10/21 23:45 Body Mass Index 29.53 (90.72 kg, 175.26 cm) [facility] 10/21 23:45 Pain Scale: Adult 7 10/22 01:08 Pain Scale: Adult tm6 02:14 Pain Scale: Adult tm6 MDM: 00:07 Patient medically screened. cp 04:35 Data reviewed: vital signs, nurses notes. cp 04:35 Differential diagnosis: acute myocardial infarction, pleurisy, pneumonia, pneumothorax, cp pulmonary embolus, stable angina, unstable angina. Management of patient was discussed with the following: Hospitalist: will admit after discussion. I considered the following discharge prescriptions or medication management in the emergency department Medications were administered in the Emergency Department. See MAR. Care significantly affected by the following chronic conditions: Diabetes, Hypertension. Counseling: I had a detailed discussion with the patient and/or guardian regarding the historical points, exam findings, and any diagnostic results supporting the discharge/admit diagnosis, the presence of at least one elevated blood pressure reading (>120/80) during this emergency department visit, lab results, radiology results, the need for further work-up and treatment in the hospital. Response to treatment: the patient's symptoms have mildly improved after treatment, and as a result, I will admit patient. 10/22 00:17 Order name: Basic Metabolic Panel; Complete Time: 02:17 cp 10/22 00:17 Order name: CBC with Diff; Complete Time: 01:14 cp 10/22 01:14 Interpretation: Normal except: HGB 13.4; HCT 38.9; MPV 7.5. cp 10/22 00:17 Order name: LFT's; Complete Time: 02:17 cp 10/22 00:17 Order name: Magnesium; Complete Time: 02:17 cp 10/22 00:17 Order name: PT-INR; Complete Time: 01:14 cp 10/22 00:17 Order name: Troponin HS; Complete Time: 02:17 cp 10/22 02:17 Interpretation: Reviewed. cp 10/22 01:42 Order name: UDS cp 10/22 01:42 Order name: Urinalysis W/Microscopic cp 10/22 05:38 Order name: Urinalysis w/ reflexes EDMS 10/22 05:38 Order name: CBC with Automated Diff EDMS 10/22 05:38 Order name: CBC with Automated Diff EDMS 10/22 05:38 Order name: Comprehensive Metabolic Panel EDMS 10/22 05:38 Order name: Comprehensive Metabolic Panel EDMS 10/22 05:38 Order name: Magnesium EDMS 10/22 05:38 Order name: Magnesium EDMS 10/22 00:17 Order name: XRAY Chest (1 view) 10/22 02:50 Order name: Chest For Pe Angio EDMS 10/22 05:42 Order name: Extrem Venous W Compress Paul EDMS 10/22 00:17 Order name: EKG; Complete Time: 00:18 cp 10/22 00:17 Order name: Cardiac monitoring; Complete Time: 00:24 cp 10/22 00:17 Order name: EKG - Nurse/Tech; Complete Time: 00:24 cp 10/22 00:17 Order name: IV Saline Lock; Complete Time: 00:24 cp 10/22 00:17 Order name: Labs collected and sent; Complete Time: 00:24 cp 10/22 00:17 Order name: O2 Per Protocol; Complete Time: 00:24 cp 10/22 00:17 Order name: O2 Sat Monitoring; Complete Time: 00:24 EC:12 Rate is 62 beats/min. Rhythm is regular. OH interval is normal. QRS interval is cp prolonged at 158 msec. QT interval is normal. T waves are Inverted in lead aVR. Interpreted by me. Reviewed by me. 00:45 Rate is 72 beats/min. Rhythm is regular. OH interval is normal. QRS interval is cp prolonged at 158 msec. QT interval is normal. T waves are Inverted in lead aVR. Interpreted by me. Reviewed by me. Administered Medications: 00:31 Drug: morphine IVP or IV 2 mg IVP once over 4 mins Route: IVP; Infused Over: 4 mins; tm6 Site: right forearm; 06:31 Follow up: Response: No adverse reaction; No change in condition jw7 00:34 Not Given (given by EMSs): aspirinchewable tablet 324 mg PO once; 81 mg tablets x 4 tm6 00:53 Drug: Nitroglycerin Transdermal Ointment 2 % 0.5 inches Transdermal once Route: jw7 Transdermal; Site: anterior chest wall; 06:31 Follow up: Response: No adverse reaction jw7 01:16 CANCELLED (Physician Discretion): morphineor iv 4 mg IVP once over 4 mins cp 01:17 Not Given (Other Intervention Used): hydromorphone1 mg IVP once cp 01:26 Drug: morphine IVP or IV 4 mg IVP once over 4 mins Route: IVP; Infused Over: 4 mins; jw7 Site: left forearm; 06:31 Follow up: Response: No adverse reaction; Marked relief of symptoms jw7 04:50 Drug: Enoxaparin Sub-Q 1 mg/kg Sub-Q once Route: Sub-Q; Site: abdomen; jw7 06:31 Follow up: Response: No adverse reaction jw7 Disposition Summary: 10/22/23 04:36 Hospitalization Ordered Notes: Hospitalization Status: Inpatient Admission cp Provider: Jerel Garcia [facility] cp Condition: Stable cp Problem: new cp Symptoms: have improved cp Bed/Room Type: Standard cp Room Assignment: 214(10/22/23 06:10) kl Diagnosis - Pulmonary embolism without acute cor pulmonale - right lower lobe cp Forms: - Medication Reconciliation Form cp - SBAR form cp - Leadership Thank You Letter cp Signatures: Dispatcher [employer] Patria Anderson RN RN Chris Jones PA PA cp Myles Nettles RN RN jb4 Corin Roque RN RN jw7 Sonya, Tawney, RN RN tm6 Corrections: (The following items were deleted from the chart) 01:16 01:15 morphine IVP or IV 4 mg IVP once over 4 mins ordered. cp cp 02:50 02:18 Chest Angio+CT.RAD.JDZ ordered. EDMS EDMS 06:06 04:36 cp jb4 06:10 06:06 221 jb4
--- NOTE | 2023-10-22 04:37 | ER ---
Nurse's Notes [facility] Name: Moshe Ewing Age: 62 yrs Sex: Male : 1960 Arrival Date: 10/21/2023 Time: 23:56 Bed 2 Private MD: Diagnosis: Pulmonary embolism without acute cor pulmonale-right lower lobe Presentation: 10/21 23:45 Chief complaint: Patient states: "Started having chest pain at 2200, it was bad enough jw7 to wake me up from sleeping. I took 1 nitro sublingual at home and it did not help". Coronavirus screen: At this time, the client does not indicate any symptoms associated with coronavirus-19. 23:45 Method Of Arrival: [place] [facility] 23:45 Ebola Screen: No symptoms or risks identified at this time. Initial Sepsis Screen: Does jw7 the patient meet any 2 criteria? No. Patient's initial sepsis screen is negative. Does the patient have a suspected source of infection? No. Patient's initial sepsis screen is negative. Risk Assessment: Do you want to hurt yourself or someone else? Patient reports no desire to harm self or others. Onset of symptoms was October 21, 2023 at 22:00. Care prior to arrival: Medication(s) given: Nitroglycerin, 0.4 mg SL x 2. Care prior to arrival: IV initiated. 18 GA, 20 GA, in the left in the right forearm. 23:45 Acuity: MYRIAM 3 jw7 23:45 Care prior to arrival: Medication(s) given: ASA, 325 mg, x 1, Reglan 10mg. jw7 Triage Assessment: 23:45 General: Appears in no apparent distress. uncomfortable, Behavior is calm, cooperative. jw7 Pain: Complains of pain in chest Pain does not radiate. Pain currently is 4 out of 10 on a pain scale. Quality of pain is described as pressure, squeezing, Pain began suddenly, Is continuous. 23:45 EENT: No deficits noted. No signs and/or symptoms were reported regarding the EENT jw7 system. Neuro: Escobedo Agitation-Sedation Scale (RASS): 0 - Alert and Calm Level of Consciousness is awake, alert, obeys commands, Oriented to person, place, time, situation. Cardiovascular: Heart tones S1 S2 present Capillary refill < 3 seconds Clubbing of nail beds is absent JVD is absent Patient's skin is warm and dry. Respiratory: Airway is patent Trachea midline Respiratory effort is even, unlabored, Respiratory pattern is regular, symmetrical. GI: Abdomen is round non-distended. : No deficits noted. No signs and/or symptoms were reported regarding the genitourinary system. Derm: Skin is intact, is healthy with good turgor, Skin is dry, Skin is normal, Skin temperature is warm. Musculoskeletal: Circulation, motion, and sensation intact. Range of motion: intact in all extremities. Historical: - Allergies: 10/22 00:18 amlodipine; jw7 00:18 lidocaine patch; jw7 - Home Meds: 00:18 Aspirin Oral [Active]; clopidogrel oral [Active]; finasteride oral [Active]; Folic Acid jw7 Oral [Active]; levothyroxine oral [Active]; losartan oral [Active]; Lovastatin Oral [Active]; Metformin Oral [Active]; tamsulosin oral [Active]; Vitamin D Oral [Active]; - PMHx: 00:18 chronic neck pain; Diabetes - NIDDM; DVT; Hypercholesterolemia; Hypertension; jw7 Hypothyroidism; Enlarged Prostate (Hypothyroidism); - PSHx: 00:18 back sx; cadriac stent; Cholecystectomy; external loop recorder; foot/shoulder SX; L jw7 hand SX with plates placed; R BKA; stimulator R back for legs; Right Leg Amputation Below the knee (stimulator R back for legs); - Immunization history:: Adult Immunizations up to date, Client reports having NOT received the Covid vaccine. Last tetanus immunization: up to date Flu vaccine is not up to date. - Social history:: Smoking status: Patient denies any tobacco usage or history of. Patient/guardian denies using alcohol, street drugs, IV drugs. Screenin:29 [facility] ED Fall Risk Assessment (Adult) History of falling in the last 3 months, jw7 including since admission No falls in past 3 months (0 pts) Score/Fall Risk Level 0 - 2 = Low Risk Oriented to surroundings, Maintained a safe environment, Educated pt \\T\\ family on fall prevention, incl call for assistance when getting out of bed. Abuse screen: Denies threats or abuse. Denies injuries from another. Nutritional screening: No deficits noted. Tuberculosis screening: No symptoms or risk factors identified. Assessment: 10/21 23:50 General: see triage assessment. jw7 10/22 00:40 Pain: Complains of pain in chest Pain does not radiate. Pain currently is 10 out of 10 jw7 on a pain scale. Quality of pain is described as pressure, stated "It just hurts". 01:00 Reassessment: Patient appears in no apparent distress at this time. Patient and/or jw7 family updated on plan of care and expected duration. Pain level reassessed. Patient is alert, oriented x 3, equal unlabored respirations, skin warm/dry/pink. 01:09 Reassessment:. Pain: Complains of pain in chest Pain currently is 9 out of 10 on a pain tm6 scale. 02:00 Reassessment: Patient appears in no apparent distress at this time. Patient and/or jw7 family updated on plan of care and expected duration. Pain level reassessed. Patient is alert, oriented x 3, equal unlabored respirations, skin warm/dry/pink. 03:00 Reassessment: Patient appears in no apparent distress at this time. Patient and/or jw7 family updated on plan of care and expected duration. Pain level reassessed. Patient is alert, oriented x 3, equal unlabored respirations, skin warm/dry/pink. 04:00 Reassessment: Patient appears in no apparent distress at this time. Patient and/or jw7 family updated on plan of care and expected duration. Pain level reassessed. Patient is alert, oriented x 3, equal unlabored respirations, skin warm/dry/pink. Patient states symptoms have improved. 05:00 Reassessment: Patient appears in no apparent distress at this time. No changes from jw7 previously documented assessment. Patient and/or family updated on plan of care and expected duration. Pain level reassessed. Patient is alert, oriented x 3, equal unlabored respirations, skin warm/dry/pink. 06:00 Reassessment: Patient appears in no apparent distress at this time. No changes from jw7 previously documented assessment. Patient and/or family updated on plan of care and expected duration. Pain level reassessed. Patient is alert, oriented x 3, equal unlabored respirations, skin warm/dry/pink. 06:35 General: attempted to call report, nurse will call back . jw7 06:49 Reassessment: Patient appears in no apparent distress at this time. report given to 6 Laura ESCOBEDO. Vital Signs: 10/21 23:45 BP 138 / 92; Pulse 68; Resp 19 S; Temp 97.9(O); Pulse Ox 98% on R/A; Weight 90.72 kg; jw7 Height 5 ft. 9 in. ; Pain 4/10; 10/22 01:08 BP 139 / 122; Pulse 62; Resp 11; Pulse Ox 98% on R/A; Pain 9/10; tm6 01:10 BP 156 / 96; Pulse 73; Resp 13 S; Pulse Ox 98% on R/A; jw7 02:14 BP 150 / 91; Pulse 69; Resp 14; Pulse Ox 98% on R/A; Pain 9/10; tm6 03:22 Pulse 59; Resp 13; tm6 04:00 BP 148 / 95; Pulse 56; Resp 17 S; Pulse Ox 97% on R/A; jw7 05:00 BP 134 / 91; Pulse 56; Resp 16 S; Pulse Ox 98% on R/A; jw7 06:00 BP 140 / 96; Pulse 54; Resp 16 S; Pulse Ox 95% on R/A; jw7 10/21 23:45 Body Mass Index 29.53 (90.72 kg, 175.26 cm) jw7 10/21 23:45 Pain Scale: Adult 7 10/22 01:08 Pain Scale: Adult tm6 02:14 Pain Scale: Adult tm6 ED Course: 10/21 23:45 Arm band placed on. jw7 23:45 Patient has correct armband on for positive identification. Bed in low position. Call [facility] light in reach. Side rails up X2. Client placed on continuous cardiac and pulse oximetry monitoring. NIBP monitoring applied. 23:45 Patient maintains SpO2 saturation greater than 95% on room air. jw7 23:58 Patient arrived in ED. jj6 10/22 00:07 Chris Clark PA is PHCP. cp 00:07 Alejo Barker MD is Attending Physician. cp 00:18 Triage completed. jw7 00:33 XRAY Chest (1 view) In Process Unspecified. EDMS 03:06 Chest For Pe Angio In Process Unspecified. EDMS 04:35 Jerel Garcia MD is Hospitalizing Provider. cp 06:19 No provider procedures requiring assistance completed. Patient admitted, IV remains in jw7 place. 06:20 Provided Education on: need for admit. jw7 Administered Medications: 00:31 Drug: morphine IVP or IV 2 mg IVP once over 4 mins Route: IVP; Infused Over: 4 mins; tm6 Site: right forearm; 06:31 Follow up: Response: No adverse reaction; No change in condition jw7 00:34 Not Given (given by EMSs): aspirinchewable tablet 324 mg PO once; 81 mg tablets x 4 tm6 00:53 Drug: Nitroglycerin Transdermal Ointment 2 % 0.5 inches Transdermal once Route: jw7 Transdermal; Site: anterior chest wall; 06:31 Follow up: Response: No adverse reaction jw7 01:16 CANCELLED (Physician Discretion): morphineor iv 4 mg IVP once over 4 mins cp 01:17 Not Given (Other Intervention Used): hydromorphone1 mg IVP once cp 01:26 Drug: morphine IVP or IV 4 mg IVP once over 4 mins Route: IVP; Infused Over: 4 mins; jw7 Site: left forearm; 06:31 Follow up: Response: No adverse reaction; Marked relief of symptoms jw7 04:50 Drug: Enoxaparin Sub-Q 1 mg/kg Sub-Q once Route: Sub-Q; Site: abdomen; jw7 06:31 Follow up: Response: No adverse reaction jw7 Medication: 06:20 VIS not applicable for this client. jw7 Outcome: 04:36 Decision to Hospitalize by Provider. cp 06:19 Admitted to Med/surg accompanied by nurse, via stretcher, room 214, jw7 06:19 Condition: stable 06:19 Instructed on the need for admit, Demonstrated understanding of instructions, 07:27 Patient left the ED. ld1 Signatures: Dispatcher [employer] EDMS Chris Clark PA PA cp Sims, Lauren, RN RN ld1 Maureen Duranj6 Corin Roque RN RN jw7 Ant Hassan RN RN tm6 Corrections: (The following items were deleted from the chart) 01:32 00:30 Pain: Complains of pain in chest Pain does not radiate. Pain currently is 10 out jw7 of 10 on a pain scale. Quality of pain is described as pressure, stated "It just hurts" jw7
[2023-10-22] MEDS ORDERED: ENOXAPARIN 100 MG/ML SYR SQ ONE (04:46)
[2023-10-22] MEDS ORDERED: ONDANSETRON 4 MG/2 ML VIAL IV PRN (05:35)
[2023-10-22] MEDS ORDERED: Oxycodone HCl/Acetaminophen 5/325 MG TAB PO PRN (05:40)
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
[2023-10-22] MEDS ORDERED: D50W 25 GM/50 ML SYRINGE IV PRN (06:11)
[2023-10-22] MEDS ORDERED: GLUCAGON 1 MG/VIAL IM PRN (06:11)
[2023-10-22] MEDS ORDERED: D10W 125 ML IV PRN (06:36)
[2023-10-22] MEDS: INSULIN REGULAR (HUMAN) 100 UNIT/ML SQ SCH ×4 (07:30→20:51)
[2023-10-22 07:50] VITALS: O2SAT 95
--- NOTE | 2023-10-22 07:54 | RAD REPORT ---
EXAM DESCRIPTION: US - Extrem Venous W Compress Paul - 10/22/2023 6:09 am CLINICAL HISTORY: Chest pain. Positive pulmonary embolism COMPARISON: None. TECHNIQUE: Real-time sonographic evaluation of the bilateral lower extremity deep venous systems was performed. FINDINGS: Normal compressibility, flow augmentation, phasic flow and spontaneous flow is identified in both the left and right lower extremity deep venous systems. No intraluminal filling defects seen. IMPRESSION: No DVT in either lower extremity.
[2023-10-22 08:03] VITALS: BMI 29.5
[2023-10-22 12:27] LABS: Specific Gravity > 1.030 (1.005-1.030); Urine Bacteria None Seen /HPF (<20); Urine Bilirubin NEGATIVE (Negative); Urine Blood Negative (Negative); Urine Clarity Clear (Clear); Urine Color Light-Yellow (Yellow); Urine Glucose NEGATIVE (Negative); Urine Protein NEGATIVE (Negative); Urine RBC <5 /HPF (None Seen); Urine Urobilinogen Normal (Normal); Urine pH 5.5 (5.0-7.0)
[2023-10-22 12:36] LABS: Barbiturates NEGATIVE (NEGATIVE); Benzodiazepines NEGATIVE (NEGATIVE); Cocaine NEGATIVE (NEGATIVE); METHAMPHETAM NEGATIVE (NEGATIVE); Methadone NEGATIVE (NEGATIVE); Opiates POSITIVE (NEGATIVE); Phencyclidine NEGATIVE (NEGATIVE); THC Cannibis NEGATIVE (NEGATIVE)
--- NOTE | 2023-10-22 14:08 | RAD REPORT ---
EXAM DESCRIPTION: CT - Chest For Pe Angio - 10/22/2023 6:31 am ADDENDUM #[address] Barker at 3:48 AM Electronically signed by: Kofi Dyer MD 10/22/2023 03:51 AM MAIL CARRIER End of Addendum EXAM DESCRIPTION: Chest For Pe Angio CLINICAL HISTORY: CHEST PAIN TECHNIQUE: Contiguous axial images obtained through the chest during angiographic phase following th e uneventful administration of IV contrast. Sagittal and coronal reformatted images were provided. 3- D MIP reformatted images were provided. This exam was performed according to our departmental dose-optimization program, which includes autom ated exposure control, adjustment of the mA and/or kV according to patient size and/or use of iterati ve reconstruction technique. COMPARISON: February 2023 FINDINGS: Diagnostic quality: There is adequate opacification of the pulmonary arterial tree. Lungs: No focal consolidation. Airways are patent. Atelectatic changes in the lung bases. Pleura: No effusion. No pneumothorax. Heart and pericardium: The heart is normal in size. No pericardial effusion. Mediastinum and renée: No pathologically enlarged lymph nodes. Lower neck and chest wall: Unremarkable Vessels: There are tiny intraluminal filling defects within subsegmental pulmonary arteries in the ri ght lower lobe consistent with tiny peripheral pulmonary emboli. There are no large central pulmonary emboli. No thoracic aortic aneurysm. Upper abdomen: Unremarkable Bones: Unremarkable IMPRESSION: Tiny peripheral pulmonary emboli within subsegmental pulmonary arteries in the right low er lobe. No large central pulmonary emboli. Electronically signed by: Kofi Dyer MD 10/22/2023 03:38 AM MAIL CARRIER Due to temporary technical issues with the PACS/Fluency reporting system, reports are being signed by the in house radiologists without review as a courtesy to insure prompt reporting. The interpreting radiologist is fully responsible for the content of the report.
[2023-10-22] MEDS: ENOXAPARIN 100 MG/ML SYR SQ SCH (17:41)
--- NOTE | 2023-10-22 19:44 | RAD REPORT ---
EXAM DESCRIPTION: RAD - Chest Single View - 10/22/2023 12:32 am CLINICAL HISTORY: The patient is 62 years old and is Male; CHEST PAIN TECHNIQUE: Frontal view of the chest. COMPARISON: XR Chest dated August 22 2022 FINDINGS: LUNGS: Unremarkable. No consolidation. PLEURAL SPACE: Unremarkable. No pneumothorax. HEART: Unremarkable. No cardiomegaly. MEDIASTINUM: Unremarkable. Normal mediastinal contour. BONES/JOINTS: Multilevel degenerative change of the spine is present. No acute fracture. VASCULATURE: Atherosclerosis of the aorta is present. UPPER ABDOMEN: Unremarkable as visualized. IMPRESSION: No acute cardiopulmonary process. Electronically signed by: Anitra Plunkett MD 10/22/2023 12:43 AM LEAD FRONT END DEVELOPER Due to temporary technical issues with the PACS/Fluency reporting system, reports are being signed by the in house radiologists without review as a courtesy to insure prompt reporting. The interpreting radiologist is fully responsible for the content of the report.
[2023-10-23 03:30] LABS: Absolute Lymphocytes (CBC) 1.6 K/uL (0.7-4.9); Hematocrit 39.3 % (39.6-49.0); Lymphocytes % 22.8 % (15.3-44.8); MCV 83.1 fL (80-100); MPV 7.6 fL (7.6-11.3); Platelets 210 thou/uL (152-406); RBC Red Blood Cell Count 4.73 M/uL (4.33-5.43)
[2023-10-23 04:09] LABS: Albumin 3.3 g/dL (3.4-5.0); Bilirubin Total 0.4 mg/dL (0.2-1.0); Magnesium 2.4 mg/dL (1.6-2.4); Potassium 4.1 mEq/L (3.5-5.1); Protein, Total 7.1 g/dL (6.4-8.2)
[2023-10-23] MEDS: ENOXAPARIN 100 MG/ML SYR SQ SCH (06:07)
[2023-10-23] MEDS: INSULIN REGULAR (HUMAN) 100 UNIT/ML SQ SCH ×2 (07:30→11:30)
--- NOTE | 2023-10-23 09:29 | P.PN ---
Subjective Date of Service: 10/23/23 Primary Care Provider: Maira Oliveira Chief Complaint: Pulmonary embolism Reported nonproductive cough, pleuritic chest pain, no reported nausea, O2 sats 96% room air - Physical Exam General: Alert, In no apparent distress, Oriented x3 HEENT: Atraumatic, Normocephalic Neck: Supple Respiratory: Clear to auscultation bilaterally, Normal air movement Cardiovascular: No edema, Normal pulses Gastrointestinal: Normal bowel sounds, Soft and benign, Non-distended Musculoskeletal: Other (Right lower extremity BKA) Integumentary: No rashes, No erythema Neurological: Normal speech, Normal strength at 5/5 x4 extr, Sensation intact Review of Systems per HPI Physical Examination - Vital Signs Temperature: 97.3 F Blood Pressure: 146/89 Pulse: 52 Respirations: 16 Pulse Ox (%): 96 Assessment And Plan - Plan -Assessment plan Acute right lower lobe pulmonary embolism Weight-based Lovenox, as needed analgesics Pulmonary consult CTA of the chest IMPRESSION: Tiny peripheral pulmonary emboli within subsegmental pulmonary arteries in the right lower lobe. No large central pulmonary emboli. Chest x-ray IMPRESSION: No acute cardiopulmonary process. Venous Doppler IMPRESSION: No DVT in either lower extremity. Peripheral vascular disease s/p Rt BKA Fall precaution lives at home with his , Caroline, is fully independent, and drives. He has history of BKA and ambulates using a prosthesis. Coronary artery disease with stent Aspirin, statin, Plavix Hypertension Diabetes mellitus Hyperlipidemia Hypothyroidism BPH Resume appropriate home meds Full code DVT weight-based Lovenox Diet cardiac Disposition Home with Discharge Plan: Home - Code Status/Comfort Care Code Status: Full Code Critical Care: No Time Spent Managing PTS Care (In Minutes): 35
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
[2023-10-23 12:56] VITALS: BP 152/87; TEMP 97.4
--- NOTE | 2023-10-23 13:10 | P.DS ---
Admission Date: 10/22/23 Discharge Date: 10/23/23 Primary Care Provider: Maira Oliveira Disposition: ROUTINE DISCHARGE Discharge Condition: FAIR Reason for Admission: Pulmonary embolism Brief History of Present Illness: 62-year-old male with a history of hypertension, diabetes mellitus, peripheral vascular disease status post right lower extremity BKA and CAD with stent presented to the ED with acute onset of chest pain decided last night. Pain was nonpleuritic and nonradiating, associated with nonproductive cough, no nausea and diaphoresis. On arrival to the ED his vital signs were within normal limit s. EKG was unremarkable. His lab was essentially benign. CT chest showed right lower lobe pulmonary embolism. Patient was given a dose of weight-based Lovenox in the ED along with nitroglycerin ointment and IV morphine. - Physical Exam General: Alert, In no apparent distress, Oriented x3 HEENT: Atraumatic, Normocephalic Neck: Supple Respiratory: Clear to auscultation bilaterally, Normal air movement Cardiovascular: No edema, Normal pulses Gastrointestinal: Normal bowel sounds, Soft and benign, Non-distended Musculoskeletal: Other (Right lower extremity BKA) Integumentary: No rashes, No erythema Neurological: Normal speech, Normal strength at 5/5 x4 extr, Sensation intact Hospital Course: 62year-old male patient presented with shortness of breath and chest pain. Was noted to have pulmonary embolism. He was evaluated by pulmonology and treated with anticoagulation and O2,As needed analgesic. condition improved with treatment plan Stable for discharge with follow-up appointment with pulmonology and primary care physician. He has transitioned off of O2, placed on room air sats. Recommended Xarelto or Eliquis anticoagulation for 3 to 6 months. PROBLEM: Pulmonary embolism Initiation of Eliquis, anticoagulation History of peripheral vascular disease status post right BKA with prosthesis Diabetes type 2 Essential hypertension Hypothyroidism Prescription Eliquis 3-6 mo per Pulmonary Continue home medicines as previously prescribed GOAL: Clear understanding of disease process INSTRUCTIONS: Physician Discharge Instructions: -DC IV and DC home -Follow-up with PCP in 1 to 2 weeks -Please call Dr. Isabel at [phone] if any questions regarding hospital stay -Please call nursing station at [phone] if any nursing or medication questions -Return to the emergency room if symptoms worsen Diet: ADA, low sodium Activity: Fall precautions DME: Date Ordered: Name of Company: [employer] Services Needed: None Date or Referral: IMMUNIZATION Influenza Vaccine Indicated: Influenza Vaccine Given: Date Given: Pneumonia Vaccine Indicated: Pneumonia Vaccine Given: Date Given: Vital Signs/Physical Exam: Temp Pulse Resp BP Pulse Ox 97.4 F 61 16 152/87 H 96 10/23/23 12:00 10/23/23 12:00 10/23/23 12:00 10/23/23 12:00 10/23/23 12:00 Laboratory Data at Discharge: WBC 7.00 thou/uL (4.3-10.9) 10/23/23 03:04 Hgb 13.6 g/dL (13.6-17.9) 10/23/23 03:04 Hct 39.3 % (39.6-49.0) L 10/23/23 03:04 Plt Count 210 thou/uL (152-406) 10/23/23 03:04 PT 11.9 SECONDS (9.5-12.5) 10/22/23 00:43 INR 1.08 10/22/23 00:43 Sodium 135 mEq/L (136-145) L 10/23/23 03:04 Potassium 4.1 mEq/L (3.5-5.1) 10/23/23 03:04 BUN 14 mg/dL (7-18) 10/23/23 03:04 Creatinine 1.27 mg/dL (0.70-1.30) 10/23/23 03:04 Glucose 106 mg/dL (74-106) 10/23/23 03:04 Magnesium 2.4 mg/dL (1.6-2.4) 10/23/23 03:04 Total Bilirubin 0.4 mg/dL (0.2-1.0) 10/23/23 03:04 AST 13 U/L (15-37) L 10/23/23 03:04 ALT 19 U/L (16-61) 10/23/23 03:04 Alkaline Phosphatase 68 U/L (45-117) 10/23/23 03:04 Home Medications: Aspirin [Aspirin EC] 81 mg PO DAILY 12/21/20 Cholecalciferol (Vitamin D3) [Vitamin D3] 2,000 unit PO DAILY 12/21/20 Clopidogrel Bisulfate [Plavix*] 75 mg PO DAILY 12/21/20 Finasteride 5 mg PO DAILY 12/21/20 Levothyroxine Sodium 75 mcg PO DAILY 12/21/20 Losartan Potassium 100 mg PO DAILY 12/21/20 Lovastatin 20 mg PO DAILY 12/21/20 Metformin HCl [Metformin ER Gastric] 500 mg PO TID 12/21/20 Tamsulosin [Flomax*] 0.4 mg PO DAILY 12/21/20 Folic Acid 1 mg PO M,W,F 11/26/22 Apixaban [Eliquis] 10 mg PO BID #70 tablet 10/22/23 New Medications: Apixaban [Eliquis] 10 mg PO BID #70 tablet Physician Discharge Instructions: Hospital Course: 62year-old male patient presented with shortness of breath and chest pain. Was noted to have pulmonary embolism. He was evaluated by pulmonology and treated with anticoagulation and O2,As needed analgesic. condition improved with treatment plan Stable for discharge with follow-up appointment with pulmonology and primary care physician. He has transitioned off of O2, placed on room air sats. Recommended Xarelto or Eliquis anticoagulation for 3 to 6 months. PROBLEM: Pulmonary embolism Initiation of Eliquis, anticoagulation History of peripheral vascular disease status post right BKA with prosthesis Diabetes type 2 Essential hypertension Hypothyroidism Prescription Eliquis 3 to 6 months per pulmonary to follow Continue home medicines as previously prescribed GOAL: Clear understanding of disease process INSTRUCTIONS: Physician Discharge Instructions: -DC IV and DC home -Follow-up with PCP in 1 to 2 weeks -Please call Dr. Isabel at [phone] if any questions regarding hospital stay -Please call nursing station at [phone] if any nursing or medication questions -Return to the emergency room if symptoms worsen Diet: ADA, low sodium Activity: Fall precautions DME: Date Ordered: Name of Company: [employer] Services Needed: None Date or Referral: IMMUNIZATION Influenza Vaccine Indicated: Influenza Vaccine Given: Date Given: Pneumonia Vaccine Indicated: Pneumonia Vaccine Given: Followup: Alberto Funk MD [ACTIVE - CAN ADMIT] - 1-2 Weeks Maira Oliveira MD [Primary Care Provider] - Time spent managing pt's care (in minutes): 55
[2023-10-23] MEDS ORDERED: RIVAROXABAN 15 MG TABLET PO SCH (21:00)
== END 2023-10-23 15:37 | disposition home or self-care (01) | DRG 176 ==
LOC: ER 23:56 → ERHOLD 10-22 05:33 → 2ND 10-22 06:33
PROVIDERS: ADMIT Internal Medicine; ATTEND Hospitalist
DX: I26.93 Single subsegmental thrombotic pulmonary embolism without acute cor pulmonale (principal); E03.9 Hypothyroidism, unspecified; E11.51 Type 2 diabetes mellitus with diabetic peripheral angiopathy without gangrene; Z89.511 Acquired absence of right leg below knee; I10 Essential (primary) hypertension; E78.5 Hyperlipidemia, unspecified; I25.10 Atherosclerotic heart disease of native coronary artery without angina pectoris; Z79.01 Long term (current) use of anticoagulants; E88.810 Metabolic syndrome; N40.0 Benign prostatic hyperplasia without lower urinary tract symptoms; Z95.5 Presence of coronary angioplasty implant and graft
CPT/HCPCS: 36415; 71045; 71275; 80048; 80053; 80076; 80307; 81001; 81241; 82947; 83735; 84484; 85025; 85610; 93005; 93970; G0103; J1650; J2270; Q9967

== ENCOUNTER 2024-01-03 09:56 | Day surgery (SDC) | payer OTHER ==
[2023-12-31 11:28] LABS: Absolute Eosinophils 0.1 K/uL (0-0.5); Absolute Lymphocytes (CBC) 1.5 K/uL (0.7-4.9); Absolute Monocytes 0.5 K/uL (0.1-1.3); Absolute Neutrophil 3.8 K/uL (1.8-8.0); Basophils % 0.7 % (0-1.3); Eosinophils % 2.1 % (0-4.4); Hematocrit 41.5 % (39.6-49.0); Hemoglobin 13.9 g/dL (13.6-17.9); MCH 28.6 pg (27.0-35.0); MCHC 33.6 g/dL (32.0-36.0); MPV 7.7 fL (7.6-11.3); Monocytes % 8.5 % (3.3-12.3); Neutrophils % 63.7 % (41.7-73.7); Nucleated Red Blood Cells % 0.1 % (0-0); Platelets 199 thou/uL (152-406); RBC Red Blood Cell Count 4.88 M/uL (4.33-5.43); Red Cell Distribution Width 14.9 % (12.1-15.2)
[2023-12-31 11:42] LABS: Anion Gap 8.1 mEq/L (5.0-15.0); Potassium 4.1 mEq/L (3.5-5.1)
[2024-01-03] MEDS: NA CHLORIDE 0.9% 1,000 ML ONE (10:10)
[2024-01-03] MEDS ORDERED: BUPIVACAINE 0.25% PF 10 ML VIAL ONE (11:57)
[2024-01-03] MEDS ORDERED: dexAMETHasone 10 MG/ML VIAL ONE (12:00)
[2024-01-03] MEDS ORDERED: MIDAZOLAM HCL 2 MG/2 ML INJ ONE (12:00)
[2024-01-03] MEDS ORDERED: ONDANSETRON 4 MG/2 ML VIAL ONE (12:00)
[2024-01-03] MEDS ORDERED: KETOROLAC 30 MG/ML INJ ONE (12:00)
[2024-01-03] MEDS ORDERED: LIDOCAINE 1% MPF 5 ML VIAL ONE (12:00)
[2024-01-03] MEDS ORDERED: propofoL 200 MG/20 ML VIAL IV ONE (12:00)
[2024-01-03] MEDS ORDERED: KETAMINE HCL IN 0.9 % NACL 50 MG/5 ML SYRINGE IV ONE (12:00)
[2024-01-03] MEDS ORDERED: ROCURONIUM 50 MG/5 ML VIAL IV ONE (12:00)
[2024-01-03] MEDS ORDERED: FENTANYL CITR 100 MCG/2 ML ONE (12:00)
[2024-01-03] MEDS: CEFAZOLIN SODIUM 2 GM/VIAL ONE (12:30)
[2024-01-03] MEDS ORDERED: EPHEDRINE SULF 50 MG/ML VIAL ONE (12:32)
[2024-01-03] MEDS ORDERED: GLYCOPYRROLATE 0.2 MG/ML SYR ONE (12:57)
[2024-01-03] MEDS ORDERED: NEOSTIGMINE 1 MG/ML -10 ML VIAL ONE (12:57)
--- NOTE | 2024-01-03 13:10 | P.OP ---
Preoperative diagnosis: Umbilical Hernia Postoperative diagnosis: Umbilical Hernia Primary procedure: Laparoscopic Umbilical Hernia Repair with mesh Anesthesia: GETA Estimated blood loss: <2cc Specimen: None Findings: Umbilical hernia Complications: None Implants: Bard Ventralite ST 11.4 Round, Sorbafix x 45 tacks Transferred to: Recovery Room Condition: Good
[2024-01-03] MEDS: MORPHINE 4 MG/ML SYR ONE (13:35)
[2024-01-03] MEDS: HYDROMORPHONE HCL 1 MG/ML INJ ONE ×2 (13:45→13:56)
[2024-01-03] MEDS ORDERED: NA CHLORIDE 0.9% 1,000 ML ONE (14:02)
[2024-01-03] MEDS: HYDROCODONE/APAP 10/325 TAB ONE (14:18)
[2024-01-03 15:11] VITALS: BP 139/85; TEMP 97.7; O2SAT 98
--- NOTE | 2024-01-04 00:15 | OP ---
Date of Procedure: 01/03/2024 Surgeon: Haseeb Garsia MD, Preoperative Diagnosis: Umbilical hernia. Postoperative Diagnosis: Umbilical hernia. Procedure Performed: Laparoscopic umbilical hernia repair with mesh. Anesthesia: General endotracheal. Estimated Blood Loss: Less than 2 cc. Specimen: None. Findings: Umbilical hernia. Complications: None. Implants: Bard Ventralight ST mesh with Echo Positioning System, 11.4 cm round mesh utilized and Sor baFix absorbable fixation tacks x45 tacks. Additional Findings: Hernia was approximately 0.5 cm with incarcerated preperitoneal fat. Disposition: The patient was transferred to recovery room in good condition. Procedure In Detail: After informed consent was obtained, the patient was brought to the operating r oom, prepped and draped in the usual sterile fashion. After adequate anesthesia was achieved, I inci sed an area of the left upper quadrant down to subcutaneous tissues. 5 mm 0 degree optical trocar wa s introduced in the abdomen without incident or complication. Insufflation was obtained to 15 mmHg a t this time. There was no injury to vital structures upon entry into the abdomen. Additional 12 mm trocar was placed in the left mid abdomen. This was similarly anesthetized, sharply incised, and a 1 2 mm trocar placed under direct visualization without incident or complication. I then used the Liga Sure to take down the preperitoneal fat and found the incarcerated preperitoneal fat within an umbili balbina hernia defect, which was approximately 0.5 cm in size. I then removed all the preperitoneal inca rcerated fat, and removed it and sent off on the back table. At this point, I swept back at preperit cramer fat to allow for appropriate landing zone for the mesh. The 11.4 cm Bard Ventralight mesh was then deployed in the abdomen through a separate stab incision in the supraumbilical position. The ba lloon was deployed. A SorbaFix absorbable fixation tacker was used to tack approximately 45 tacks to the anterior abdominal wall in double crown type orientation after removing the balloon deployment s ystem with good apposition of mesh to the abdominal wall. There was no hemostat required. At this p oint, I closed the 12 mm trocar site using Marin-Kole suture passer with 0 Vicryl in interrupted fashion with good approximation of the tissues. The abdomen was completely desufflated under direct visualization without incident or complication. All skin was then copiously irrigated and closed wi th a 4-0 Monocryl in a running fashion. Dermabond was placed over top. The patient tolerated proced ure well without incident or complication, transferred to PACU in good condition. All counts were co rrect at the end of the case. STUART/ANA Voice ID: [id number] Report ID: [id number]
== END 2024-01-03 15:14 | disposition home or self-care (01) ==
LOC: OR 09:56
PROVIDERS: ATTEND Surgery
PROC: 0WUF4JZ Supplement Abdominal Wall with Synthetic Substitute, Percutaneous Endoscopic Approach (ICD-10-PCS; principal; 2024-01-03 12:30)
DX: K42.9 Umbilical hernia without obstruction or gangrene (principal)
CPT/HCPCS: 49591; 85025; 80048; 36415; 82947; J2704; J2710; J2001; J2250; J3010; J1170 ×2; J2405; J7030 ×2; C1781; J1100

== ENCOUNTER 2024-10-06 07:14 | Day surgery (SDC) | payer OTHER ==
[2024-09-26 12:39] LABS: Absolute Eosinophils 0.2 K/uL (0-0.5); Absolute Lymphocytes (CBC) 1.4 K/uL (0.7-4.9); Absolute Monocytes 0.5 K/uL (0.1-1.3); Absolute Neutrophil 3.2 K/uL (1.8-8.0); Basophils % 0.4 % (0-1.3); Hematocrit 40.3 % (39.6-49.0); Hemoglobin 13.4 g/dL (13.6-17.9); Lymphocytes % 26.7 % (15.3-44.8); MCH 28.7 pg (27.0-35.0); MCHC 33.2 g/dL (32.0-36.0); MCV 86.5 fL (80-100); MPV 8.2 fL (7.6-11.3); Monocytes % 9.2 % (3.3-12.3); Neutrophils % 60.7 % (41.7-73.7); Platelets 194 thou/uL (152-406); RBC Red Blood Cell Count 4.66 M/uL (4.33-5.43); Red Cell Distribution Width 14.8 % (12.1-15.2)
[2024-09-26 12:41] LABS: Anion Gap 9.3 mEq/L (5.0-15.0); Potassium 4.3 mEq/L (3.5-5.1)
--- NOTE | 2024-09-28 12:09 | EKG ---
Test Date: 2024-09-26 Test Time: 12:38:47 Speech Communication Instructor: BETHANY MEASUREMENT RESULTS: Intervals: Rate: 48 DC: 156 QRSD: 102 QT: 416 QTc: 371 [place]: P: 57 DC: 156 QRS: 91 T: 60 INTERPRETIVE STATEMENTS: Marked sinus bradycardia Rightward axis Abnormal ECG Compared to ECG 10/22/2023 00:38:34 Right-axis deviation now present Sinus rhythm no longer present Sinus arrhythmia no longer present Right bundle-branch block no longer present Electronically Signed On 09-28-24 12:09:37 TOWER LOADER OPERATOR by Gerardo Hamilton
[2024-10-06] MEDS: NA CHLORIDE 0.9% 1,000 ML ONE (07:48)
[2024-10-06] MEDS ORDERED: propofoL 200 MG/20 ML VIAL IV ONE ×2 (08:58→08:59)
[2024-10-06] MEDS ORDERED: LIDOCAINE 1% MPF 2 ML AMPULE ONE (08:59)
[2024-10-06 10:30] VITALS: BP 101/71; TEMP 97.7; O2SAT 100
== END 2024-10-06 10:23 | disposition home or self-care (01) ==
LOC: OR 07:14
PROVIDERS: ATTEND Surgery
PROC: 0DB78ZX Excision of Stomach, Pylorus, Via Natural or Artificial Opening Endoscopic, Diagnostic (ICD-10-PCS; 2024-10-06)
PROC: 0DB68ZX Excision of Stomach, Via Natural or Artificial Opening Endoscopic, Diagnostic (ICD-10-PCS; 2024-10-06)
PROC: 0DB48ZX Excision of Esophagogastric Junction, Via Natural or Artificial Opening Endoscopic, Diagnostic (ICD-10-PCS; 2024-10-06)
PROC: 0DB98ZX Excision of Duodenum, Via Natural or Artificial Opening Endoscopic, Diagnostic (ICD-10-PCS; principal; 2024-10-06 08:45)
DX: K29.50 Unspecified chronic gastritis without bleeding (principal); K29.80 Duodenitis without bleeding; R10.13 Epigastric pain
CPT/HCPCS: 93005; 85025; 80048; 36415; 88312; 82947; 88305; 85730; 43239; J2704; J7030

== ENCOUNTER 2025-01-17 06:04 | Day surgery (SDC) | payer OTHER ==
[2025-01-16 15:38] LABS: Absolute Eosinophils 0.1 K/uL (0-0.5); Absolute Lymphocytes (CBC) 1.4 K/uL (0.7-4.9); Absolute Monocytes 0.5 K/uL (0.1-1.3); Absolute Neutrophil 3.4 K/uL (1.8-8.0); Basophils % 0.9 % (0-1.3); Eosinophils % 1.5 % (0-4.4); Hematocrit 40.9 % (39.6-49.0); Hemoglobin 14.2 g/dL (13.6-17.9); Lymphocytes % 26.4 % (15.3-44.8); MCHC 34.6 g/dL (32.0-36.0); MCV 83.7 fL (80-100); MPV 7.9 fL (7.6-11.3); Monocytes % 8.7 % (3.3-12.3); Neutrophils % 62.5 % (41.7-73.7); Platelets 220 thou/uL (152-406); RBC Red Blood Cell Count 4.88 M/uL (4.33-5.43)
[2025-01-16 15:52] LABS: Anion Gap 11.2 mEq/L (5.0-15.0); Potassium 4.2 mEq/L (3.5-5.1)
[2025-01-16 16:00] LABS: PT Prothrombin Time 11.9 SECONDS (10-13.0); PTT, Activated Partial Thromb 30.2 SECONDS (27.2-37.4); Protime INR 1.05
--- NOTE | 2025-01-16 16:00 | RAD REPORT ---
EXAMINATION: TWO VIEW CHEST XR CLINICAL INDICATION: Pre-op pending hernia repair TECHNIQUE: 2 views of the chest was performed. COMPARISON: 10/22/2023 FINDINGS: The lungs are hyperexpanded suggesting COPD. The heart is upper limit of normal in size. No displaced fractures evident. IMPRESSION: COPD is suspected without acute finding identified.
[2025-01-17] MEDS ORDERED: ONDANSETRON 4 MG/2 ML VIAL ONE (07:12)
[2025-01-17] MEDS ORDERED: LIDOCAINE 1% MPF 5 ML VIAL ONE (07:12)
[2025-01-17] MEDS ORDERED: ROCURONIUM 50 MG/5 ML VIAL IV ONE (07:13)
[2025-01-17] MEDS ORDERED: propofoL 200 MG/20 ML VIAL IV ONE (07:14)
[2025-01-17] MEDS ORDERED: FENTANYL CITR 100 MCG/2 ML ONE (08:18)
[2025-01-17] MEDS ORDERED: MIDAZOLAM HCL 2 MG/2 ML INJ ONE (08:18)
[2025-01-17] MEDS ORDERED: EPHEDRINE SULF 50 MG/ML VIAL ONE (08:40)
[2025-01-17] MEDS ORDERED: dexAMETHasone 10 MG/ML VIAL ONE (08:43)
[2025-01-17] MEDS ORDERED: GLYCOPYRROLATE 0.2 MG/ML SYR ONE ×2 (08:44→09:17)
[2025-01-17] MEDS: CEFAZOLIN SODIUM 1 GM/VIAL ONE (08:45)
[2025-01-17] MEDS ORDERED: NEOSTIGMINE 1 MG/ML -10 ML VIAL ONE (09:17)
--- NOTE | 2025-01-17 09:28 | P.BOP ---
Preoperative diagnosis: recurrent tender ventral(supraumbilical ) hernia 5cm Postoperative diagnosis: same, intrabdominal adhesions Primary procedure: 1. Laparoscopic repair recurrent tender ventral hernia with mesh Secondary procedure: 2. Laparoscopic lysis of adhesions Estimated blood loss: <10cc Specimen: none Findings: ventral hernia cephalad edge of previous repair at edge of mesh Anesthesia: General Complications: None Drain(s): Other Implants: ventralex large Transferred to: Recovery Room Condition: Good
[2025-01-17] MEDS: HYDROMORPHONE HCL 1 MG/ML INJ ONE ×2 (09:43→09:53)
[2025-01-17] MEDS: FENTANYL CITR 100 MCG/2 ML ONE (10:03)
[2025-01-17] MEDS: HYDROCODONE/APAP 10/325 TAB ONE (11:07)
[2025-01-17 11:36] VITALS: BP 131/71; TEMP 97.5; O2SAT 94
[2025-01-17] MEDS: NA CHLORIDE 0.9% 1,000 ML ONE (11:38)
--- NOTE | 2025-01-17 19:38 | OP ---
Surgeon: Portillo Harper MD Preoperative Diagnosis: Recurrent incarcerated ventral supraumbilical hernia. Postoperative Diagnoses: Recurrent incarcerated ventral supraumbilical hernia plus intraabdominal ad hesions. Procedure: Laparoscopic repair of recurrent ventral hernia with mesh, and laparoscopic lysis of adhe sions. Anesthesia: General plus local. Estimated Blood Loss: Less than 10 cc. Findings: Ventral hernia cephalad to the previous repair. Right at the edge of repair, the area bro ke between the normal fascia and the previous mesh placement. This mesh was overlapped with the prev ious mesh partially. Complications: None. Indications: This is a case of a 64-year-old patient who came to us with recurrent ventral hernia. He had this hernia repaired a little bit more than a year ago. It is bothering him. It is becoming difficult to reduce. So, the benefits, alternatives, and risks of laparoscopic possible open repair with ventral hernia with possible mesh fully explained, which include, but not limited to, infection, bleeding, damage to adjacent structures, anesthesia complication, recurrence, [place], and even . H e also understands this may not relieve any symptoms. He might need more than one surgical intervent ion. He also understands the importance of no heavy lifting and losing some weight. We explained to him also the possible placement of mesh with pros and cons, discussed with the patient. All the que stions answered to his satisfaction. He signed a consent. Description Of Procedure: Patient was brought to the operating room, placed in supine position. Ane sthesia was induced without complication. Abdomen was prepped and draped in the usual sterile fashio n. Since he has previous repair on the periumbilical region and he is not sure if they used the mesh or not, we proceeded to do an epigastric incision in a clean area. Incision was carried down to fas ravinder, which was opened under direct vision. Peritoneum was encountered, opened under direct vision. I have to clarify we did not use local anesthetic on him since he has history of lidocaine allergies versus just the medication. He says he had some itchiness. So, at that time, we preferre d not to just get this since he is not recalling this specific allergies in details. So, we made the incision. Fascia was opened under direct vision. Vicryl #1 placed inside the fascia. Jennie troca r was carefully introduced. Pneumoperitoneum was obtained. Then, we noticed the defects. We have t his defect, first of all, we have multiple adhesions there, so we have to put a 5 mm trocar to the ri ght and left side of the abdomen. This allowed me to place there the 5 mm camera and we were able to see this side ways. We noticed the adhesions present specially on the superior part of that previou s mesh. With the help of LigaSure, we did lysis of adhesions and we saw the defect. It needed some reinforcement with also stitches. We made an incision right in that region and cleaned the fascial e dges, placed Vicryl #1 inside the fascia. We recalculated the size of the mesh. We are going to use a large mesh which is over 8 cm that overlapped the area 3-5 cm and also we overlapped the previous mesh by about 2 cm. Mesh was placed in that area. Ventralex mesh, strap comes through. We secured partially with the SorbaFix, then removed the mesh and straps and closed the fascial defects with Aleksey ryl. Then, after that, we further fixated the mesh circumferentially to minimize any intestines tryi ng to go in between. Once we have that, we took a look at the area. It looked nice and flat. The d efect is covered. The area of the lysis of adhesion shows no bleeding and no enterotomies. At that moment, I proceeded to remove the trocars under direct vision. Deflated the pneumoperitoneum. Close d the fascia with #1 Vicryl. Irrigated subcutaneous tissue, closed that with 3-0 chromic and skin wi th merritt. Sponge counts and instrument counts correct. Patient tolerated the procedure well. Patient was sent to Recovery in stable condition. HM/MODL Voice ID: [id number] Report ID: [id number]
--- NOTE | 2025-01-17 19:43 | DS ---
Date of Discharge: 01/17/2025 Diagnosis: Recurrent ventral supraumbilical hernia. Postoperative Diagnosis: Recurrent ventral supraumbilical hernia. Procedure: Laparoscopic repair of a recurrent tender ventral hernia with mesh and laparoscopic lysis of adhesions. Condition: Stable. Disposition: Home. Activity: As tolerated. No heavy lifting. Followup: Follow up in my office in 1 week. Call for appointment at [phone]. Condition: Stable. Discharge Instructions: Keep the area dry for 48 hours, then may shower. Keep merritt intact. For medications, see orders. FABIANO/MODL Voice ID: [id number] Report ID: [id number]
== END 2025-01-17 13:09 | disposition home or self-care (01) ==
LOC: OR 06:04
PROVIDERS: ATTEND Surgery
PROC: 0WUF4JZ Supplement Abdominal Wall with Synthetic Substitute, Percutaneous Endoscopic Approach (ICD-10-PCS; principal; 2025-01-17 08:30)
DX: K43.9 Ventral hernia without obstruction or gangrene (principal)
CPT/HCPCS: 85025; 80048; 36415; 85610; 82947 ×2; 85730; 71046; 49616; J2704; J2710; J2003; J2250; J3010 ×2; J1100; J1171 ×2; J2405; J7030; J0690